=== PATIENT | female | born 1975 | race Caucasian/White ===

== ENCOUNTER 2017-04-17 13:02 | Inpatient (IN) | payer BC, OTHER ==
[~2017-04-17] VITALS: Ht 160 cm; Wt 84.9 kg
[~2017-04-17 13:02] MED LIST: ALBUAER2 INH; AMLO-110 PO; ATOR10TA82 PO; DULO60CA44 PO; FENO1TAB PO; HYDR25TA4 PO; INSDGIPEN SC; INSUINJ14 SC; LYR/50 PO; MTR800 PO; NXM/40 PO; OXYC-57 PO; PROP120C PO
[2017-04-17] MEDS ORDERED: NovoLIN-R INSULIN PER UNIT CHARGE IV STA (13:24)
[2017-04-17] MEDS ORDERED: CEFEPIME IV 2,000 MG in DEXTROSE 5% 100ML 100 ML IV STA (13:24)
[2017-04-17] MEDS ORDERED: SODIUM CHLORIDE 0.9% 1000ML 1,000 ML IV ONE ×3 (13:24→17:00)
--- NOTE | 2017-04-17 13:47 | DIAGNOSTIC IMAGING REPORT ---
CHEST ONE VIEW PORTABLE CLINICAL HISTORY: Sepsis DIZZINESS, WEAKNESS COMPARISON STUDY: 06/03/2015 FINDINGS: The cardiac and mediastinal contours are normal. There is no evidence of focal pulmonary consolidation. There is no evidence of failure. No pleural effusions are visualized.[ IMPRESSION: No active disease in the chest. Electronically signed by: Nael Walsh M.D. 04/17/2017 1:45 PM Dictated Date/Time: 04/17/2017 1:45 PM
--- NOTE | 2017-04-17 14:09 | EMERGENCY ROOM VISIT NOTE ---
History Report prepared by Landy: Gwendolyn Samuel Under the Supervision of: Dr. Lev Gan M.D. First contact with patient: 13:15 Chief Complaint: ILLNESS Stated Complaint: DIZZY,CONFUSED,WEAK,DEHYDRATED History of Present Illness The patient is a 42 year old female who presents to the Emergency Room with complaints of worsening confusion starting several days ago. The patient's mother has noticed the patient's confusion has worsened today. The patient reports she has been sitting on the couch for the past 2 days. Every time she tried to get up, she felt dizzy, nauseous, and like she might pass out. As a result, she has not taken her medications in 2 days. She denies any vomiting, abdominal pain, chest pain. She has been confused before. At that time, she was found to have C diff and ended up on life support. She had diarrhea one time today which is not abnormal for her. She had a cat scratch about 1 month ago. She has a history of staph. When she has staph, she complains of right breast pain. She has had right breast pain recently. She appears flushed to her family. She has urinated one time since last night and her family is concerned for dehydration. She denies any falls. She has a history of diabetes. She denies any history of stroke. She has had a cough and heavy breathing for the past 5 days. Source of History: patient, family Onset: several days ago Position: other (global) Quality: other (confusion) Timing: worsening Associated Symptoms: + cough, + SOB, + nausea, No chest pain, No vomiting, No abdominal pain Note: Pt reports dizziness, right breast pain. Review of Systems See HPI for pertinent positives & negatives. A total of 10 systems reviewed and were otherwise negative. Past Medical & Surgical Medical Problems: (1) Acute kidney injury (2) Clostridium difficile colitis (3) Colostomy (4) DKA (diabetic ketoacidoses) (5) Lumbar Disc Displacement (6) Pneumonia (7) Sepsis Family History Diabetes mellitus Heart disease Social History Smoking Status: Current Every Day Smoker Drug Use: none Marital Status: Housing Status: lives with family Occupation Status: employed Current/Historical Medications Scheduled Amlodipine (Norvasc), 5 MG PO QAM Atorvastatin (Lipitor), 10 MG PO DAILY Duloxetine Hcl (Cymbalta), 60 MG PO QPM Esomeprazole Magnesium (Nexium), 40 MG PO QAM Fenofibrate (Tricor), 160 MG PO DAILY Hydrochlorothiazide (Hctz), 25 MG PO DAILY Insulin Aspart (Novolog Flexpen), 20 UNITS SC TIDM Insulin Glargine (Lantus Solostar), 40 UNITS SC AMPM Lisinopril (Zestril), 20 MG PO QAM Pregabalin (Lyrica), 50 MG PO QPM Propranolol Hcl (Propranolol Hcl Er), 120 MG PO BID Topiramate (Topamax), 75 MG PO QPM Scheduled PRN Albuterol Hfa (Ventolin Hfa), 2 PUFFS INH Q4H PRN for SOB/Wheezing Allergies Coded Allergies: BEE STING (Verified Allergy, Intermediate, RED, SHORT OF BREATH, 04/17/17) Physical Exam Vital Signs Date Time Temp Pulse Resp B/P (MAP) Pulse Ox O2 Delivery O2 Flow Rate FiO2 04/17/17 15:26 100 Room Air 04/17/17 14:26 80 22 145/72 100 Room Air 04/17/17 13:41 88 22 110/77 97 Room Air 04/17/17 13:34 36.9 04/17/17 13:18 100 Room Air 04/17/17 13:17 78 04/17/17 13:07 76 16 129/85 100 Room Air Physical Exam GENERAL: Patient is in no acute distress. HEENT: No acute trauma, normocephalic atraumatic, mucous membranes markedly dry , no nasal congestion, no scleral icterus. NECK: No stridor, no adenopathy, no meningismus, trachea is midline. LUNGS: Clear to auscultation bilaterally, no wheeze, no rhonchi, breath sounds equal. HEART: Without murmurs gallops or rubs, regular rate and rhythm. ABDOMEN: Soft, nontender, bowel sounds positive, no hernias, no peritonitis. EXTREMITIES: No cyanosis or edema, full range of motion of all the joints without pain or difficulty, no signs for acute trauma. NEUROLOGIC: Mild confusion. No focal motor deficits. Awake and alert. SKIN: No rash, no jaundice, no diaphoresis. Some mottling noted over the breasts and knees. Skin is cool to touch. Medical Decision & Procedures ER Provider Diagnostic Interpretation: X-ray results as stated below per interpretation by me and the radiologist. Radiology results as stated below per my review and radiologist interpretation: CHEST ONE VIEW PORTABLE CLINICAL HISTORY: Sepsis DIZZINESS, WEAKNESS COMPARISON STUDY: 06/03/2015 FINDINGS: The cardiac and mediastinal contours are normal. There is no evidence of focal pulmonary consolidation. There is no evidence of failure. No pleural effusions are visualized.[ IMPRESSION: No active disease in the chest. Electronically signed by: Nael Walsh M.D. 04/17/2017 1:45 PM Dictated Date/Time: 04/17/2017 1:[address] HEAD WITHOUT CONTRAST (CT) CLINICAL HISTORY: CONFUSION COMPARISON STUDY: No previous studies for comparison. TECHNIQUE: Axial CT of the brain is performed from the vertex to the skull base. IV contrast was not administered for this examination. A dose lowering technique was utilized adhering to the principles of ALARA. CT DOSE: 991.68 mGycm FINDINGS: No intra or extra-axial mass lesions are visualized. There is no CT evidence of acute cortical infarction. There is no evidence of midline shift. There is no acute hemorrhage. No calvarial fractures are visualized. There is minimal disconjugate ocular gaze There is no evidence of pathologic ventricular dilatation. There is no evidence of acute sinusitis IMPRESSION: 1. Minimal disconjugate ocular gaze 2. No acute intracranial findings Electronically signed by: Nael Walsh M.D. 04/17/2017 2:21 PM Dictated Date/Time: 04/17/2017 2:20 PM Laboratory Results 04/17/17 13:50 Red Blood Count 6.34, Mean Corpuscular Volume 79.2, Mean Corpuscular Hemoglobin 26.2, Mean Corpuscular Hemoglobin Concent 33.1, Mean Platelet Volume 10.1, Neutrophils (%) (Auto) 82.1, Lymphocytes (%) (Auto) 12.3, Monocytes (%) (Auto) 4.2, Eosinophils (%) (Auto) 0.1, Basophils (%) (Auto) 0.2, Neutrophils # (Auto) 14.45, Lymphocytes # (Auto) 2.16, Monocytes # (Auto) 0.73, Eosinophils # (Auto) 0.01, Basophils # (Auto) 0.03 04/17/17 13:50 Test 04/17/17 13:40 04/17/17 13:50 04/17/17 13:52 04/17/17 14:47 Urine Color YELLOW Urine Appearance CLOUDY (CLEAR) Urine pH 5.0 (4.5-7.5) Urine Specific [place] 1.027 (1.000-1.030) Urine Protein 3+ (NEG) Urine Glucose (UA) 2+ (NEG) Urine Ketones 1+ (NEG) Urine Occult Blood 1+ (NEG) Urine Nitrite NEG (NEG) Urine Bilirubin NEG (NEG) Urine Urobilinogen NEG (NEG) Urine Leukocyte Esterase NEG (NEG) Urine WBC (Auto) 5-10 /hpf (0-5) Urine RBC (Auto) 0-4 /hpf (0-4) Urine Hyaline Casts (Auto) 5-10 /lpf (0-5) Urine Epithelial Cells (Auto) >30 /lpf (0-5) Urine Bacteria (Auto) NEG (NEG) Urine Renal Epithelial Cells 0-5 /lpf (0-5) Urine Pathogenic Casts /lpf (0) White Blood Count 17.58 K/uL (4.8-10.8) Red Blood Count 6.34 M/uL (4.2-5.4) Hemoglobin 16.6 g/dL (12.0-16.0) Hematocrit 50.2 % (37-47) Mean Corpuscular Volume 79.2 fL (80-100) Mean Corpuscular Hemoglobin 26.2 pg (25-34) Mean Corpuscular Hemoglobin Concent 33.1 g/dl (32-36) Platelet Count 564 K/uL (130-400) Mean Platelet Volume 10.1 fL (7.4-10.4) Neutrophils (%) (Auto) 82.1 % Lymphocytes (%) (Auto) 12.3 % Monocytes (%) (Auto) 4.2 % Eosinophils (%) (Auto) 0.1 % Basophils (%) (Auto) 0.2 % Neutrophils # (Auto) 14.45 K/uL (1.4-6.5) Lymphocytes # (Auto) 2.16 K/uL (1.2-3.4) Monocytes # (Auto) 0.73 K/uL (0.11-0.59) Eosinophils # (Auto) 0.01 K/uL (0-0.5) Basophils # (Auto) 0.03 K/uL (0-0.2) RDW Standard Deviation 45.7 fL (36.4-46.3) RDW Coefficient of Variation 16.1 % (11.5-14.5) Immature Granulocyte % (Auto) 1.1 % Immature Granulocyte # (Auto) 0.20 K/uL (0.00-0.02) Prothrombin Time 10.2 SECONDS (9.0-12.0) Prothromb Time International Ratio 1.0 (0.9-1.1) Activated Partial Thromboplast Time 37.4 SECONDS (21.0-31.0) Partial Thromboplastin Ratio 1.4 Anion Gap 17.0 mmol/L (3-11) Est Creatinine Clear Calc Drug Dose 37.4 ml/min Estimated GFR () 35.6 Estimated GFR (Non- 30.7 BUN/Creatinine Ratio 16.9 (10-20) Calcium Level 8.6 mg/dl (8.5-10.1) Magnesium Level 2.5 mg/dl (1.8-2.4) Total Bilirubin 0.3 mg/dl (0.2-1) Aspartate Amino Transf (AST/SGOT) 14 U/L (15-37) Alkaline Phosphatase 169 U/L (45-117) Total Creatine Kinase 67 U/L (26-192) Creatine Kinase MB 1.8 ng/ml (0.5-3.6) Creatine Kinase MB Ratio 2.7 (0-3.0) Troponin I < 0.015 ng/ml (0-0.045) Total Protein 8.7 gm/dl (6.4-8.2) Albumin 3.9 gm/dl (3.4-5.0) Globulin 4.8 gm/dl (2.5-4.0) Albumin/Globulin Ratio 0.8 (0.9-2) Beta-Hydroxybutyric Acid 18.21 mg/dL (0.2-2.81) Thyroid Stimulating Hormone (TSH) 1.140 uIu/ml (0.300-4.500) Ammonia 76.2 umol/L (11-32) Test 04/17/17 15:05 Bedside Lactic Acid Venous 0.99 mmol/L (0.90-1.70) Laboratory results reviewed by me. Medications Administered Medications (Trade) Dose Ordered Sig/Yudy Route Start Time Stop Time Status Last Admin Dose Admin Sodium Chloride 1,000 ml @ 999 mls/hr Q1H1M ONCE IV 04/17/17 13:24 04/17/17 14:24 DC 04/17/17 13:55 999 MLS/HR Insulin Human Regular (novoLIN-R U-100 PER UNIT) 10 units NOW STAT IV 04/17/17 13:24 04/17/17 13:28 DC 04/17/17 13:57 10 UNITS Cefepime HCl 2000 mg/Dextrose 112.5 ml @ 200 mls/hr ONE STAT IV 04/17/17 13:24 04/17/17 13:57 DC 04/17/17 13:56 200 MLS/HR Insulin Human Regular (NovoLIN R BOLUS FROM BAG) 3 unit NOW STAT IV 04/17/17 14:54 04/17/17 14:59 DC 04/17/17 14:54 3 UNIT Insulin Human Regular 250 units/ Sodium Chloride 252.5 ml @ 0 mls/hr Q24H IV 04/17/17 15:00 05/17/17 14:59 04/17/17 15:20 3 MLS/HR ECG Indication: altered mental status Rate (beats per minute): 81 Rhythm: sinus rhythm Findings: PVC, no acute ischemic change ED Course 1318: The patient was evaluated in room A3. A complete history and physical exam was performed. 1324: Cefepime HCl 2000 mg/Dextrose 112.5 ml @ 200 mls/hr IV, Insulin Human Regular 10 units IV, NSS 1000 ml @ 999 mls/hr IV. 1453: Upon reexamination the patient is stable. I discussed results and treatment plan with the patient and her family. They verbalize agreement and understanding. The patient will be evaluated for further management. 1454: Insulin Human Regular 3 units IV. 1458: I discussed the patient's case with Sherrell Porter PA-C [facility] hospitalist. The patient will be evaluated for further management. 1500: Insulin Human Regular 250 units/Sodium Chloride 252.5 ml @ 0 mls/hr IV. Medical Decision Differential diagnoses considered include sepsis, bacteremia, dehydration, electrolyte imbalance, DKA, UTI, LA, stroke, liver or renal failure, thyroid disorder. There is a moderate leukocytosis at 17,000, this could be consistent with the stress of her situation or infection. No concerning anemia. No hepatitis. Lactic acid level is not elevated making sepsis less likely. The patient appears to be in a euthyroid state. Renal panel testing shows evidence for acute renal failure, dehydration, acidosis and hyperglycemia. Urinalysis does not show infection. Chest x-ray does not show pneumonia or CHF. Brain CT shows no acute bleed or mass effect. Ammonia level is elevated in the 70s-this would explain her confusion. Blood cultures are pending. The patient received IV saline, IV cefepime. She received IV insulin and then was eventually placed on an insulin drip. The patient's vital signs are stable. She is in DKA, she is dehydrated with an elevated ammonia level. I believe the confusion could be from the elevation to her ammonia level coupled with the DKA. The patient will need a hospital stay. I did talk with the family and the patient. Case management has been involved. The on-call hospitalist was consulted. Medication Reconcilliation Current Medication List: was personally reviewed by me Blood Pressure Screening Patient's blood pressure: Elevated blood pressure Blood pressure disposition: Elevated BP felt to be situational Consults Time Called: [id number] Consulting Physician[facility] Returned Call: [phone] Discussed the patient's case. The patient will be evaluated for further management. Impression Primary Impression: DKA (diabetic ketoacidoses) Additional Impressions: Confusion Dehydration Hyperammonemia Critical Care I have personally spent greater than 35 minutes of critical care time in the direct management of this patient. This includes bedside care, interpretation of diagnostic studies, and testing, discussion with consultants, patient, and family members, and other required patient management activities. This 35 minutes is in excess of all separately billable procedures. Scribe Attestation The scribe's documentation has been prepared under my direction and personally reviewed by me in its entirety. I confirm that the note above accurately reflects all work, treatment, procedures, and medical decision making performed by me. Departure Information Dispostion Being Evaluated By Hospitalist Referrals Wiliam Garsia M.D. (PCP) Patient Instructions My [facility] [address] Problem Qualifiers
[2017-04-17 14:15] LABS: BASO % 0.2 %; BASO ABS # 0.03 K/uL (0-0.2); EOS % 0.1 %; EOS ABS # 0.01 K/uL (0-0.5); HEMATOCRIT 50.2 % (37-47); HEMOGLOBIN 16.6 g/dL (12.0-16.0); LYMPH % 12.3 %; LYMPH ABS # 2.16 K/uL (1.2-3.4); MEAN CELL VOLUME 79.2 fL (80-100); MEAN CORPUSCULAR HEMOGLOBIN 26.2 pg (25-34); MEAN CORPUSCULAR HGB CONC 33.1 g/dl (32-36); MEAN PLATELET VOLUME 10.1 fL (7.4-10.4); MONO % 4.2 %; MONO ABS # 0.73 K/uL (0.11-0.59); NEUT % 82.1 %; NEUT ABS # 14.45 K/uL (1.4-6.5); PLATELET COUNT 564 K/uL (130-400); RED CELL DISTRIBUTION WIDTH CV 16.1 % (11.5-14.5); RED CELL DISTRIBUTION WIDTH SD 45.7 fL (36.4-46.3); WHITE BLOOD COUNT 17.58 K/uL (4.8-10.8)
--- NOTE | 2017-04-17 14:23 | DIAGNOSTIC IMAGING REPORT ---
CT HEAD WITHOUT CONTRAST (CT) CLINICAL HISTORY: CONFUSION COMPARISON STUDY: No previous studies for comparison. TECHNIQUE: Axial CT of the brain is performed from the vertex to the skull base. IV contrast was not administered for this examination. A dose lowering technique was utilized adhering to the principles of ALARA. CT DOSE: 991.68 mGycm FINDINGS: No intra or extra-axial mass lesions are visualized. There is no CT evidence of acute cortical infarction. There is no evidence of midline shift. There is no acute hemorrhage. No calvarial fractures are visualized. There is minimal disconjugate ocular gaze There is no evidence of pathologic ventricular dilatation. There is no evidence of acute sinusitis IMPRESSION: 1. Minimal disconjugate ocular gaze 2. No acute intracranial findings Electronically signed by: Nael Walsh M.D. 04/17/2017 2:21 PM Dictated Date/Time: 04/17/2017 2:20 PM
[2017-04-17 14:35] LABS: PTT PATIENT 37.4 SECONDS (21.0-31.0)
[2017-04-17] MEDS ORDERED: NVLGI/PEN SC (14:39)
[2017-04-17] MEDS ORDERED: VNTHFA/IN INH (14:39)
[2017-04-17] MEDS ORDERED: LISI-725 PO (14:41)
[2017-04-17] MEDS ORDERED: TOPI50TA16 PO (14:41)
[2017-04-17 14:47] LABS: ALBUMIN 3.9 gm/dl (3.4-5.0); ALKALINE PHOSPHATASE 169 U/L (45-117); AST/SGOT 14 U/L (15-37); BLOOD UREA NITROGEN 33 mg/dl (7-18); CALCIUM 8.6 mg/dl (8.5-10.1); CARBON DIOXIDE 9 mmol/L (21-32); CKMB 1.8 ng/ml (0.5-3.6); CREATININE 1.94 mg/dl (0.60-1.20); GLUCOSE 465 mg/dl (70-99); POTASSIUM 4.2 mmol/L (3.5-5.1); SODIUM 122 mmol/L (136-145); TOTAL PROTEIN 8.7 gm/dl (6.4-8.2)
[2017-04-17] MEDS ORDERED: INSULIN IV INFUSION PROTOCOL STA ×2 (14:49→15:41)
[2017-04-17] MEDS ORDERED: NovoLIN R BOLUS FROM BAG IV STA (14:54)
[2017-04-17] MEDS ORDERED: GLUCOSE 40% GEL 15 GM TUBE PO PRN (15:00)
[2017-04-17] MEDS ORDERED: DKA GOAL RANGE 150-250 mg/dl 1 EA ONE ×2 (15:00→15:45)
[2017-04-17] MEDS ORDERED: DEXTROSE 50% 50 ML SYR IV PRN (15:00)
[2017-04-17] MEDS ORDERED: GLUCOSE 10 TABS/TUBE PO PRN (15:00)
[2017-04-17] MEDS ORDERED: SEVERE STRESS LEVEL ONE (15:00)
[2017-04-17] MEDS ORDERED: GLUCAGON FOR INJ 1 MG VIAL SQ PRN (15:00)
[2017-04-17] MEDS: INSULIN REGULAR 250 UNITS in SODIUM CHLORIDE 0.9% 250ML 250 ML IV SCH (15:20)
[2017-04-17 15:26] VITALS: O2SAT 100; BMI 31.9
[2017-04-17 15:41] LABS: ALT/SGPT 30 U/L (12-78)
[2017-04-17] MEDS ORDERED: MODERATE STRESS LEVEL ONE (15:45)
[2017-04-17] MEDS ORDERED: PHARMACY GLYCEMIC MGMT CONSULT PRN (15:45)
[2017-04-17] MEDS ORDERED: ONDANSETRON INJ 2 MG/ML 2 ML VIAL IV PRN (16:00)
[2017-04-17] MEDS ORDERED: ACETAMINOPHEN 325 MG TAB PO PRN (16:00)
--- NOTE | 2017-04-17 16:08 | History and Physical ---
History & Physical Date & Time of Service: Apr 17, 2017 at 16:08 Chief Complaint: Dizzy,Confused,Weak,Dehydrated Primary Care Physician: Wiliam Garsia M.D. History of Present Illness Source: patient, parent (Mom at bedside), clinic records, hospital records This is a 42yo F with DM II, HTN, HLD, anxiety, depression and history of c diff s/p colectomy who presents with dizziness and generalized weakness x 5 days. Patient states that she was in a normal state of health until 5 days ago, when she started to feel lightheaded with generalized weakness. Endorses multiple cat scratches over the past month and attributed her malaise to possible infection of her scratches. Began to feel confused over the past few days. Also endorses abdominal discomfort,nausea, feeling dehydrated and decreased urination over the past day. Patient's mom visited her today and found her to be confused, agitated, flushed and weak as compared to baseline. Brought her into ED for further evaluation. Due to patient feeling ill, she has not taken her insulin or BP meds for 2 days. Has been taking her antidepressant. Denies any fever, chills, headache, CP , SOB, vomiting episodes, diarrhea or numbness/paresthesias or swelling in extremities. States that she has felt confused similar to this in the past on a few occasions. Was admitted to [facility] in 2012 for bacteremia from C diff and required intubation. Was last admitted to [facility] in 2013 for sepsis 2/2 infected wounds and severe metabolic acidosis 2/2 DKA. Also had an OK that resolved with IVF resuscitation. Cultures grew staph aureus and coag negative staph at that time and she was treated with daptomycin. Past Medical/Surgical History Medical Problems: (1) Acute kidney injury Status: Resolved (2) Clostridium difficile colitis Status: Resolved (3) Colostomy Status: Resolved (4) DKA (diabetic ketoacidoses) Status: Resolved (5) Lumbar Disc Displacement Status: Chronic (6) Pneumonia Status: Chronic (7) Sepsis Status: Resolved Family History Diabetes mellitus Heart disease Social History Smoking Status: Current Every Day Smoker (1/2 ppd ) Drug Use: none Marital Status: Occupational Status: employed Immunizations History of Influenza Vaccine: Unknown History of Tetanus Vaccine?: Unknown History of Pneumococcal: Unknown History of Hepatitis B Vaccine: Unknown Allergies Coded Allergies: BEE STING (Verified Allergy, Intermediate, RED, SHORT OF BREATH, 04/17/17) Home Medications Scheduled Amlodipine (Norvasc), 5 MG PO QAM Atorvastatin (Lipitor), 10 MG PO DAILY Duloxetine Hcl (Cymbalta), 60 MG PO QPM Esomeprazole Magnesium (Nexium), 40 MG PO QAM Fenofibrate (Tricor), 160 MG PO DAILY Hydrochlorothiazide (Hctz), 25 MG PO DAILY Insulin Aspart (Novolog Flexpen), 20 UNITS SC TIDM Insulin Glargine (Lantus Solostar), 40 UNITS SC AMPM Lisinopril (Zestril), 20 MG PO QAM Pregabalin (Lyrica), 50 MG PO QPM Propranolol Hcl (Propranolol Hcl Er), 120 MG PO BID Topiramate (Topamax), 75 MG PO QPM Scheduled PRN Albuterol Hfa (Ventolin Hfa), 2 PUFFS INH Q4H PRN for SOB/Wheezing Review of Systems Ten systems reviewed and negative except as noted in the HPI. Physical Exam Vital Signs Date Time Temp Pulse Resp B/P (MAP) Pulse Ox O2 Delivery O2 Flow Rate FiO2 04/17/17 15:50 84 21 130/79 98 Room Air 04/17/17 15:26 100 Room Air 04/17/17 14:26 80 22 145/72 100 Room Air 04/17/17 13:41 88 22 110/77 97 Room Air 04/17/17 13:34 36.9 04/17/17 13:18 100 Room Air 04/17/17 13:17 78 04/17/17 13:07 76 16 129/85 100 Room Air General Appearance: + mild distress, + pertinent finding (Flushed, restless, tachypnic ) Head: normocephalic, atraumatic Eyes: normal inspection, PERRL, sclerae normal ENT: normal ENT inspection, hearing grossly normal, pharynx normal (dry mucous membranes ) Neck: no adenopathy, thyroid normal, trachea midline Respiratory/Chest: chest non-tender, lungs clear, normal breath sounds, no respiratory distress, no accessory muscle use Cardiovascular: regular rate, rhythm, no murmur, normal peripheral pulses Abdomen/GI: non tender, soft, no organomegaly Back: normal inspection Extremities/Musculoskelatal: normal inspection, no calf tenderness, no pedal edema Neurologic/Psych: no motor/sensory deficits, alert, oriented x 3, + pertinent finding (agitated but A&Ox3, answered all questions appropriately ) Skin: normal color, + pertinent finding (Presence of diffuse healing scratches on bilateral arms and legs. No purulent drainage.) Diagnostics Laboratory Results Results Past 24 Hours Test 04/17/17 13:40 04/17/17 13:50 04/17/17 13:52 04/17/17 14:47 Range/Units Urine Color YELLOW Urine Appearance CLOUDY CLEAR Urine pH 5.0 4.5-7.5 Urine Specific [place] 1.027 1.000-1.030 Urine Protein 3+ NEG Urine Glucose (UA) 2+ NEG Urine Ketones 1+ NEG Urine Occult Blood 1+ NEG Urine Nitrite NEG NEG Urine Bilirubin NEG NEG Urine Urobilinogen NEG NEG Urine Leukocyte Esterase NEG NEG Urine WBC (Auto) 5-10 0-5 /hpf Urine RBC (Auto) 0-4 0-4 /hpf Urine Hyaline Casts (Auto) 5-10 0-5 /lpf Urine Epithelial Cells (Auto) >30 0-5 /lpf Urine Bacteria (Auto) NEG NEG Urine Renal Epithelial Cells 0-5 0-5 /lpf Urine Pathogenic Casts 0 /lpf White Blood Count 17.58 4.8-10.8 K/uL Red Blood Count 6.34 4.2-5.4 M/uL Hemoglobin 16.6 12.0-16.0 g/dL Hematocrit 50.2 37-47 % Mean Corpuscular Volume 79.2 80-100 fL Mean Corpuscular Hemoglobin 26.2 25-34 pg Mean Corpuscular Hemoglobin Concent 33.1 32-36 g/dl Platelet Count 564 130-400 K/uL Mean Platelet Volume 10.1 7.4-10.4 fL Neutrophils (%) (Auto) 82.1 % Lymphocytes (%) (Auto) 12.3 % Monocytes (%) (Auto) 4.2 % Eosinophils (%) (Auto) 0.1 % Basophils (%) (Auto) 0.2 % Neutrophils # (Auto) 14.45 1.4-6.5 K/uL Lymphocytes # (Auto) 2.16 1.2-3.4 K/uL Monocytes # (Auto) 0.73 0.11-0.59 K/uL Eosinophils # (Auto) 0.01 0-0.5 K/uL Basophils # (Auto) 0.03 0-0.2 K/uL RDW Standard Deviation 45.7 36.4-46.3 fL RDW Coefficient of Variation 16.1 11.5-14.5 % Immature Granulocyte % (Auto) 1.1 % Immature Granulocyte # (Auto) 0.20 0.00-0.02 K/uL Prothrombin Time 10.2 9.0-12.0 SECONDS Prothromb Time International Ratio 1.0 0.9-1.1 Activated Partial Thromboplast Time 37.4 21.0-31.0 SECONDS Partial Thromboplastin Ratio 1.4 Sodium Level 122 136-145 mmol/L Potassium Level 4.2 3.5-5.1 mmol/L Chloride Level 96 98-107 mmol/L Carbon Dioxide Level 9 21-32 mmol/L Anion Gap 17.0 3-11 mmol/L Blood Urea Nitrogen 33 7-18 mg/dl Creatinine 1.94 0.60-1.20 mg/dl Est Creatinine Clear Calc Drug Dose 37.4 ml/min Estimated GFR () 35.6 Estimated GFR (Non- 30.7 BUN/Creatinine Ratio 16.9 10-20 Random Glucose 465 70-99 mg/dl Calcium Level 8.6 8.5-10.1 mg/dl Magnesium Level 2.5 1.8-2.4 mg/dl Total Bilirubin 0.3 0.2-1 mg/dl Aspartate Amino Transf (AST/SGOT) 14 15-37 U/L Alanine Aminotransferase (ALT/SGPT) 30 12-78 U/L Alkaline Phosphatase 169 45-117 U/L Total Creatine Kinase 67 26-192 U/L Creatine Kinase MB 1.8 0.5-3.6 ng/ml Creatine Kinase MB Ratio 2.7 0-3.0 Troponin I < 0.015 0-0.045 ng/ml Total Protein 8.7 6.4-8.2 gm/dl Albumin 3.9 3.4-5.0 gm/dl Globulin 4.8 2.5-4.0 gm/dl Albumin/Globulin Ratio 0.8 0.9-2 Beta-Hydroxybutyric Acid 18.21 0.2-2.81 mg/dL Thyroid Stimulating Hormone (TSH) 1.140 0.300-4.500 uIu/ml Ammonia 76.2 11-32 umol/L Test 04/17/17 15:05 04/17/17 16:00 Range/Units Bedside Lactic Acid Venous 0.99 0.90-1.70 mmol/L Microbiology Results 04/17/17 Blood Culture, Received Pending 04/17/17 Blood Culture, Received Pending Diagnostic Radiology CT head: IMPRESSION: 1. Minimal disconjugate ocular gaze 2. No acute intracranial findings CXR normal EKG Sinus rhythm with Premature ventricular complexes Poor R wave progression, consider anterior PR vs. lead placement vs. LVH Impression Assessment and Plan This is a 42yo F with DM II, HTN, HLD, anxiety, depression and history of c diff s/p colectomy who presents with dizziness and generalized weakness x 5 days. Metabolic acidosis 2/2 DKA: -Uncontrolled diabetic, non-compliant with insulin over past few days -BG of 470 --> downtrending -Hgb a1c of 13.8 -Initial bicarb of 9, anion gap of 17, ABG pending -Glycemic control consulted; insulin drip initiated -IVF resuscitation, recheck BG and electrolytes Q4 -NPO except meds -Monitor on tele -Nephro consulted Leukocytosis: -Wbc count of 17.58 -Likely 2/2 DKA, also possible infection 2/2 scratches -Clinically unimpressive but h/o staph infection due to wounds -Empirically treated with vanc and cefepime -Blood and wound cultures pending -Monitor CBC OK: -Cr of 1.94 -Baseline ~1 -Pre-renal 2/2 dehydration, also potential renal cause with lisinopril, ibuprofen use -IVF resuscitation -Hold nephrotoxic agents when able HTN: -Cont amlodipine tomorrow -Held HCTZ and lisinopril in setting of OK -Add additional antihypertensives if needed HLD: -Cont statin tomorrow Anxiety/depression: -Cont cymbalta History of migraines: -Cont topamax and propranolol ppx H/o c diff: -No complaints of diarrhea now -Plan to check c diff toxin if patient has loose stool DVT Ppx: Heparin SQ Code status: FULL PCP: Ady Dispo: Admitted to telemetry. Plan to return home once medically stable. Patient seen in collaboration with Prem. Please see addendum. Attending Note: Patient is a 42 yr female with multiple comorbidities presents with history of confusion, generalized weakness, nausea, poor appetite and has not been taking her Insulin for the past 2-3 days. Patient was found to be in DKA with possible Sepsis and clinically dehydrated. Also labs consistent with severe metabolic acidosis, elevated ammonia levels. Physical Exam: Vitals signs as noted above General Appearance:Moderately built and nourished, no apparent distress Head: normocephalic, Atraumatic Eyes: normal inspection, EOMI, PERRL Neck: supple, Trachea midline Respiratory/Chest: Normal breath sounds, CTA, No accessory muscle use Cardiovascular: S1, S2, No murmur Abdomen/GI:Soft, Non tender, Bowel sounds present Extremities/Musculoskelatal:normal inspection, no edema Neurologic/Psych:AAOX3, grossly no focal neurological deficits Skin:normal color,warm. Multiple scratch quintana noted on B/L UE Assessment and Plan: DKA: Secondary to non compliance/Infection Severe Metabolic Acidosis OK Possible Sepsis Pseudohyponatremia Hyperammonemia Metabolic Encephalopathy Plan: DKA protocol Empiric IV Abx Will get ABG Agree with above management I personally reviewed the record. Patient is interviewed and examined at bedside. Patient's care is coordinated with Sherrell Porter PA-C. Please refer to the documentation above for details of patient's presentation and for discussion of other issues. Level of Care Telemetry Advanced Directives Existing Living Will: No Existing Power of Site Specialist: No Resuscitation Status FULL RESUSCITATION VTE Prophylaxis VTE Risk Assessment Done? Y/N: Yes Risk Level: Low Given or contraindicated: Unfractionated heparin SQ
[2017-04-17 16:13] LABS: HEMOGLOBIN A1C 13.8 % (4.5-5.6)
[2017-04-17] MEDS ORDERED: ALBUTEROL HFA 8 GM INHALER INH PRN (16:15)
[2017-04-17] MEDS ORDERED: VANCOMYCIN CONSULT ACTIVE PRN (16:27)
[2017-04-17 17:00] VITALS: BP 109/61; PULSE 71; TEMP 36.4; O2SAT 95
[2017-04-17] MEDS ORDERED: SODIUM CHLORIDE 0.9% 1000ML 1,000 ML IV SCH ×2 (17:00→23:30)
[2017-04-17] MEDS ORDERED: PENDING NSS+20mEq KCL IVF SCH (17:00)
[2017-04-17] MEDS ORDERED: PENDING D5 1/2NS+20mEq KCL IVF SCH (17:00)
[2017-04-17] MEDS ORDERED: PENDING 1/2NSS+20mEq KCL IVF SCH (17:00)
[2017-04-17 17:19] LABS: CALCIUM 8.5 mg/dl (8.5-10.1); CREATININE 1.77 mg/dl (0.60-1.20); PHOSPHORUS 3.8 mg/dl (2.5-4.9); POTASSIUM 3.9 mmol/L (3.5-5.1)
[2017-04-17] MEDS: INSULIN ASPART 100 UNITS/ML 3 ML PEN SC SCH ×2 (17:30→20:36)
[2017-04-17] MEDS ORDERED: FAMOTIDINE IV INJ 20 MG in DEXTROSE 5% 100ML 100 ML IV SCH (18:00)
[2017-04-17] MEDS ORDERED: VANCOMYCIN INJ 2,000 MG in SODIUM CHLORIDE 0.9% 500ML 500 ML IV ONE (18:00)
[2017-04-17] MEDS ORDERED: SODIUM CHLOR 0.45% + 20MEQ KCL 1,000 ML IV SCH ×2 (18:30→20:30)
[2017-04-17] MEDS: FAMOTIDINE IV INJ 20 MG in SYRINGE 3 ML IV SCH (18:52)
--- NOTE | 2017-04-17 19:27 | Pharmacy Progress Note ---
Glycemic Control Intl Consult Date of Service Apr 17, 2017. Scope Glycemic Pharmacist consulted by Sherrell Porter PA-C on 04/17/2017 for glycemic control and to write orders per [facility] inpatient glycemic control protocol Objective Weight (Kilograms): 81.600 Accuchecks BSG (last 24hrs): Test 04/17/17 13:24 04/17/17 13:50 04/17/17 14:39 04/17/17 16:26 Bedside Glucose 470 mg/dl (70-90) 423 mg/dl (70-90) Random Glucose 465 mg/dl (70-99) 394 mg/dl (70-99) Test 04/17/17 16:29 04/17/17 17:42 04/17/17 18:44 Bedside Glucose 381 mg/dl (70-90) 365 mg/dl (70-90) 337 mg/dl (70-90) Laboratory Data (last 24hrs) Test 04/17/17 13:50 04/17/17 16:26 Anion Gap 17.0 mmol/L 17.0 mmol/L BUN/Creatinine Ratio 16.9 20.4 Blood Urea Nitrogen 33 mg/dl 36 mg/dl Creatinine 1.94 mg/dl 1.77 mg/dl Hemoglobin A1c 13.8 % Potassium Level 4.2 mmol/L 3.9 mmol/L Sodium Level 122 mmol/L 127 mmol/L White Blood Count 17.58 K/uL Red Blood Count 6.34 M/uL Hemoglobin 16.6 g/dL Hematocrit 50.2 % Mean Corpuscular Volume 79.2 fL Mean Corpuscular Hemoglobin 26.2 pg Mean Corpuscular Hemoglobin Concent 33.1 g/dl Platelet Count 564 K/uL Mean Platelet Volume 10.1 fL Neutrophils (%) (Auto) 82.1 % Lymphocytes (%) (Auto) 12.3 % Monocytes (%) (Auto) 4.2 % Eosinophils (%) (Auto) 0.1 % Basophils (%) (Auto) 0.2 % Neutrophils # (Auto) 14.45 K/uL Lymphocytes # (Auto) 2.16 K/uL Monocytes # (Auto) 0.73 K/uL Eosinophils # (Auto) 0.01 K/uL Basophils # (Auto) 0.03 K/uL HbA1c Test 04/17/17 13:50 Hemoglobin A1c 13.8 % (4.5-5.6) H Recent Pertinent Medications Outpatient Anti-diabetic Regimen: * Lantus 40 units SQ BID + Novolog 20 units with meals (total of 140 units/day) --> please note has not taken x 2 days * A1c = 13.8 % 04/17/17 Risk Factors for Insulin Resistance: * IVF: 1/2NS + 20 KCL @ 250 Mls/hr then 150 mLs/hr * Diet: NPO Assessment & Plan ASSESSMENT: * Ms Hernandez is a 42 y/o F with a PMH of Cdiff s/p colostomy, HTN, and depression who presents in DKA (BHA = 18.21, anion gap of 17 with bicarbonate 9 ) after having not taken insulin x 2 days. Patient initially started on insulin infusion which will be continued until labs normalize and patient demonstrates improvement. PLAN FOR INPATIENT GLYCEMIC CONTROL: * Starting IV insulin infusion per moderate (moderate/severe) stress protocol * Goal Range 150 - 250 mg/dl * In the critical care setting, continuous IV insulin infusion has been shown to be the best method for achieving glycemic targets. * Please note that the plan above was derived based on current level of insulin resistance and hospital stress. These recommendations are appropriate for inpatient admission only. Plan of care upon discharge will need to be reassessed to avoid potential outpatient hypo/hyperglycemia. Thank you.
[2017-04-17 19:32] VITALS: BP 122/79; PULSE 78; TEMP 36.5; O2SAT 99
[2017-04-17] MEDS: DULOXETINE HCL 60 MG CAP PO SCH (20:52)
[2017-04-17] MEDS: PROPRANOLOL HCL 60 MG LA CAP PO SCH (20:52)
[2017-04-17] MEDS: HEPARIN SOD 5000 UNIT/0.5 ML CARP SQ SCH (20:54)
[2017-04-17] MEDS: PREGABALIN 50 MG CAP PO SCH (20:55)
[2017-04-17 21:02] LABS: CALCIUM 7.8 mg/dl (8.5-10.1); CREATININE 1.75 mg/dl (0.60-1.20); PHOSPHORUS 2.9 mg/dl (2.5-4.9)
--- NOTE | 2017-04-17 21:16 | Pharmacy Progress Note ---
Pharmacy Abx Initial Consult Date of Service Apr 17, 2017. Pharmacy Dosing Scope Date of Consult: 04/17/2017 Consultation requested by: Sherrell Porter PA-C Pharmacy is consulted to initiate vancomycin and cefepime IV dosing therapy, order appropriate labs and adjust drug dose/frequency. Subjective The patient is a 42 year old female admitted on Apr 17, 2017 at 16:00. Objective Height (Feet): 5 Height (Inches): 3.00 Weight (Kilograms): 81.600 Vital Signs (Past 12Hrs) Vital Signs Past 12 Hours Date Time Temp Pulse Resp B/P (MAP) Pulse Ox O2 Delivery O2 Flow Rate FiO2 04/17/17 19:32 36.5 78 22 122/79 (93) 99 Room Air 04/17/17 17:00 36.4 71 20 109/61 (77) 95 Room Air 04/17/17 15:50 84 21 130/79 98 Room Air 04/17/17 15:26 100 Room Air 04/17/17 14:26 80 22 145/72 100 Room Air 04/17/17 13:41 88 22 110/77 97 Room Air 04/17/17 13:34 36.9 04/17/17 13:18 100 Room Air 04/17/17 13:17 78 04/17/17 13:07 76 16 129/85 100 Room Air Lab Results (24Hrs) Laboratory Tests (24 Hours) Test 04/17/17 13:50 White Blood Count 17.58 K/uL (4.8-10.8) H Red Blood Count 6.34 M/uL (4.2-5.4) H Hemoglobin 16.6 g/dL (12.0-16.0) H Hematocrit 50.2 % (37-47) H Mean Corpuscular Volume 79.2 fL (80-100) L Mean Corpuscular Hemoglobin 26.2 pg (25-34) Mean Corpuscular Hemoglobin Concent 33.1 g/dl (32-36) Platelet Count 564 K/uL (130-400) H Mean Platelet Volume 10.1 fL (7.4-10.4) Neutrophils (%) (Auto) 82.1 % Lymphocytes (%) (Auto) 12.3 % Monocytes (%) (Auto) 4.2 % Eosinophils (%) (Auto) 0.1 % Basophils (%) (Auto) 0.2 % Neutrophils # (Auto) 14.45 K/uL (1.4-6.5) H Lymphocytes # (Auto) 2.16 K/uL (1.2-3.4) Monocytes # (Auto) 0.73 K/uL (0.11-0.59) H Eosinophils # (Auto) 0.01 K/uL (0-0.5) Basophils # (Auto) 0.03 K/uL (0-0.2) Total Creatine Kinase 67 U/L (26-192) Micro Results Date/Time Source Procedure Growth Status 04/17/17 13:52 Blood Blood Culture Pending Received 04/17/17 13:50 Blood Blood Culture Pending Received Risk Factors for Resistance * no known resistance factors Assessment & Plan Assessment 42 year old female with a PMH of C difficle, HTN, DM, and depression who presents with a 2 day history of worsening confusion. She has not taken any of her medications except those for depression. She has multiple cat scratches on her. She has a PMH of MSSA on her skin. Plan vancomycin/cefepime for treatment of cellulitis, potentially for cat scratches Vancomycin IV * Loading dose: 2000 mg (25 mg/kg) * Maintenance dose: 1250 mg IV (15 mg/kg) every 18 hours * Goal trough level for cellulitis with no known history of MRSA : 10 to 15 mcg/ mL * Trough ordered for 04/19/17 Pharmacy will continue to follow and will adjust dose/frequency as necessary. Thank you.
[2017-04-17] MEDS ORDERED: NSS + 20MEQ KCL 1000ML 1,000 ML IV ONE (21:30)
[2017-04-17] MEDS ORDERED: D5W AND NSS 1,000 ML IV PRN (22:45)
--- NOTE | 2017-04-17 23:30 | Progress Note ---
Internal Med Progress Note Date of Service: Apr 17, 2017. Provider Documentation: Made aware by RN of patient disorientation. Ammonia noted to be 76 on admission. AP ? Hepatic encephalopathy ? Possible cirrhosis secondary to NAFLD Fatty liver noted on 08/2015 CT abdomen Lactulose hourly until we DM GI consult in the morning RE possible hepatic encephalopathy, possible cirrhosis workup Vital Signs: Date Time Temp Pulse Resp B/P (MAP) Pulse Ox O2 Delivery O2 Flow Rate FiO2 04/18/17 08:00 Room Air 04/18/17 08:00 Nasal Cannula 04/18/17 07:30 36.8 87 21 147/76 (99) 99 Room Air 04/18/17 04:00 Room Air 04/18/17 03:29 36.6 93 24 132/79 (96) 99 Room Air 04/18/17 00:00 Room Air 04/17/17 23:57 36.7 88 23 171/83 (112) 98 Room Air 04/17/17 20:00 Room Air 04/17/17 19:32 36.5 78 22 122/79 (93) 99 Room Air 04/17/17 17:00 36.4 71 20 109/61 (77) 95 Room Air 04/17/17 15:50 84 21 130/79 98 Room Air 04/17/17 15:26 100 Room Air 04/17/17 14:26 80 22 145/72 100 Room Air 04/17/17 13:41 88 22 110/77 97 Room Air 04/17/17 13:34 36.9 04/17/17 13:18 100 Room Air 04/17/17 13:17 78 04/17/17 13:07 76 16 129/85 100 Room Air Lab Results: Results Past 24 Hours Test 04/17/17 13:24 04/17/17 13:40 04/17/17 13:50 04/17/17 13:52 Range/Units Bedside Glucose 470 70-90 mg/dl Urine Color YELLOW Urine Appearance CLOUDY CLEAR Urine pH 5.0 4.5-7.5 Urine Specific [place] 1.027 1.000-1.030 Urine Protein 3+ NEG Urine Glucose (UA) 2+ NEG Urine Ketones 1+ NEG Urine Occult Blood 1+ NEG Urine Nitrite NEG NEG Urine Bilirubin NEG NEG Urine Urobilinogen NEG NEG Urine Leukocyte Esterase NEG NEG Urine WBC (Auto) 5-10 0-5 /hpf Urine RBC (Auto) 0-4 0-4 /hpf Urine Hyaline Casts (Auto) 5-10 0-5 /lpf Urine Epithelial Cells (Auto) >30 0-5 /lpf Urine Bacteria (Auto) NEG NEG Urine Renal Epithelial Cells 0-5 0-5 /lpf Urine Pathogenic Casts 0 /lpf Urine Osmolality 428 500-800 mOms/kg Urine Random Sodium 48 mEq/L Urine Opiates Screen NEG NEG Urine Methadone, Qualitative NEG NEG Urine Barbiturates NEG NEG Urine Phencyclidine (PCP) Level NEG NEG Ur Amphetamine/Methamphetamine NEG NEG MDMA (Ecstasy) Screen NEG NEG Urine Benzodiazepines Screen NEG NEG Urine Cocaine Metabolite NEG NEG Urine Marijuana (THC) NEG NEG White Blood Count 17.58 4.8-10.8 K/uL Red Blood Count 6.34 4.2-5.4 M/uL Hemoglobin 16.6 12.0-16.0 g/dL Hematocrit 50.2 37-47 % Mean Corpuscular Volume 79.2 80-100 fL Mean Corpuscular Hemoglobin 26.2 25-34 pg Mean Corpuscular Hemoglobin Concent 33.1 32-36 g/dl Platelet Count 564 130-400 K/uL Mean Platelet Volume 10.1 7.4-10.4 fL Neutrophils (%) (Auto) 82.1 % Lymphocytes (%) (Auto) 12.3 % Monocytes (%) (Auto) 4.2 % Eosinophils (%) (Auto) 0.1 % Basophils (%) (Auto) 0.2 % Neutrophils # (Auto) 14.45 1.4-6.5 K/uL Lymphocytes # (Auto) 2.16 1.2-3.4 K/uL Monocytes # (Auto) 0.73 0.11-0.59 K/uL Eosinophils # (Auto) 0.01 0-0.5 K/uL Basophils # (Auto) 0.03 0-0.2 K/uL RDW Standard Deviation 45.7 36.4-46.3 fL RDW Coefficient of Variation 16.1 11.5-14.5 % Immature Granulocyte % (Auto) 1.1 % Immature Granulocyte # (Auto) 0.20 0.00-0.02 K/uL Prothrombin Time 10.2 9.0-12.0 SECONDS Prothromb Time International Ratio 1.0 0.9-1.1 Activated Partial Thromboplast Time 37.4 21.0-31.0 SECONDS Partial Thromboplastin Ratio 1.4 Sodium Level 122 136-145 mmol/L Potassium Level 4.2 3.5-5.1 mmol/L Chloride Level 96 98-107 mmol/L Carbon Dioxide Level 9 21-32 mmol/L Anion Gap 17.0 3-11 mmol/L Blood Urea Nitrogen 33 7-18 mg/dl Creatinine 1.94 0.60-1.20 mg/dl Est Creatinine Clear Calc Drug Dose 37.4 ml/min Estimated GFR () 35.6 Estimated GFR (Non- 30.7 BUN/Creatinine Ratio 16.9 10-20 Random Glucose 465 70-99 mg/dl Estimated Average Glucose 349 mg/dl Hemoglobin A1c 13.8 4.5-5.6 % Calcium Level 8.6 8.5-10.1 mg/dl Magnesium Level 2.5 1.8-2.4 mg/dl Total Bilirubin 0.3 0.2-1 mg/dl Aspartate Amino Transf (AST/SGOT) 14 15-37 U/L Alanine Aminotransferase (ALT/SGPT) 30 12-78 U/L Alkaline Phosphatase 169 45-117 U/L Total Creatine Kinase 67 26-192 U/L Creatine Kinase MB 1.8 0.5-3.6 ng/ml Creatine Kinase MB Ratio 2.7 0-3.0 Troponin I < 0.015 0-0.045 ng/ml Total Protein 8.7 6.4-8.2 gm/dl Albumin 3.9 3.4-5.0 gm/dl Globulin 4.8 2.5-4.0 gm/dl Albumin/Globulin Ratio 0.8 0.9-2 Beta-Hydroxybutyric Acid 18.21 0.2-2.81 mg/dL Thyroid Stimulating Hormone (TSH) 1.140 0.300-4.500 uIu/ml Ammonia 76.2 11-32 umol/L Test 04/17/17 14:39 04/17/17 15:05 04/17/17 16:26 04/17/17 16:29 Range/Units Bedside Glucose 423 381 70-90 mg/dl Bedside Lactic Acid Venous 0.99 0.90-1.70 mmol/L Sodium Level 127 136-145 mmol/L Potassium Level 3.9 3.5-5.1 mmol/L Chloride Level 102 98-107 mmol/L Carbon Dioxide Level 8 21-32 mmol/L Anion Gap 17.0 3-11 mmol/L Blood Urea Nitrogen 36 7-18 mg/dl Creatinine 1.77 0.60-1.20 mg/dl Est Creatinine Clear Calc Drug Dose 41.0 ml/min Estimated GFR () 39.8 Estimated GFR (Non- 34.3 BUN/Creatinine Ratio 20.4 10-20 Random Glucose 394 70-99 mg/dl Calcium Level 8.5 8.5-10.1 mg/dl Phosphorus Level 3.8 2.5-4.9 mg/dl Magnesium Level 2.5 1.8-2.4 mg/dl Beta-Hydroxybutyric Acid 16.04 0.2-2.81 mg/dL Test 04/17/17 17:42 04/17/17 18:44 04/17/17 19:43 04/17/17 20:11 Range/Units Bedside Glucose 365 337 294 70-90 mg/dl Arterial Blood pH 7.06 7.35-7.45 Arterial Blood Partial Pressure CO2 22 35-46 mmHg Arterial Blood Partial Pressure O2 120 80-95 mm/Hg Arterial Blood HCO3 6 19-24 mmol/L Arterial Blood Oxygen Saturation 97.5 90-95 % Arterial Blood Base Excess -22.7 -9-1.8 mEq/L Arterial Blood Gas Delivery ROOM AIR Mickey Test POS POS Sodium Level 128 136-145 mmol/L Potassium Level 4.0 3.5-5.1 mmol/L Chloride Level 107 98-107 mmol/L Carbon Dioxide Level 7 21-32 mmol/L Anion Gap 14.0 3-11 mmol/L Blood Urea Nitrogen 40 7-18 mg/dl Creatinine 1.75 0.60-1.20 mg/dl Est Creatinine Clear Calc Drug Dose 41.5 ml/min Estimated GFR () 40.3 Estimated GFR (Non- 34.8 BUN/Creatinine Ratio 22.7 10-20 Random Glucose 287 70-99 mg/dl Calcium Level 7.8 8.5-10.1 mg/dl Phosphorus Level 2.9 2.5-4.9 mg/dl Magnesium Level 2.2 1.8-2.4 mg/dl Test 04/17/17 20:48 04/17/17 21:35 04/17/17 22:36 04/17/17 23:36 Range/Units Bedside Glucose 254 290 259 215 70-90 mg/dl Test 04/18/17 00:05 04/18/17 00:31 04/18/17 01:35 04/18/17 02:09 Range/Units Arterial Blood pH 7.01 7.06 7.35-7.45 Arterial Blood Partial Pressure CO2 22 22 35-46 mmHg Arterial Blood Partial Pressure O2 110 116 80-95 mm/Hg Arterial Blood HCO3 5 6 19-24 mmol/L Arterial Blood Oxygen Saturation 96.7 97.4 90-95 % Arterial Blood Base Excess -24.4 -22.5 -9-1.8 mEq/L Arterial Blood Gas Delivery ROOM AIR ROOM AIR Mickey Test POS POS POS Sodium Level 132 136-145 mmol/L Potassium Level 4.5 3.5-5.1 mmol/L Chloride Level 111 98-107 mmol/L Carbon Dioxide Level 5 21-32 mmol/L Anion Gap 16.0 3-11 mmol/L Blood Urea Nitrogen 42 7-18 mg/dl Creatinine 1.84 0.60-1.20 mg/dl Est Creatinine Clear Calc Drug Dose 39.5 ml/min Estimated GFR () 38.0 Estimated GFR (Non- 32.8 BUN/Creatinine Ratio 22.7 10-20 Random Glucose 234 70-99 mg/dl Osmolality 300 280-300 mOsm/kg Calcium Level 7.3 8.5-10.1 mg/dl Magnesium Level 2.3 1.8-2.4 mg/dl Ethyl Alcohol mg/dL < 3.0 0-3 mg/dl Bedside Glucose 234 195 70-90 mg/dl Test 04/18/17 02:23 04/18/17 02:30 04/18/17 03:33 04/18/17 03:58 Range/Units Salicylates Level 2.1 2.8-20 mg/dl Acetaminophen Level < 2 10-30 ug/ml Bedside Glucose 223 224 70-90 mg/dl White Blood Count 13.46 4.8-10.8 K/uL Red Blood Count 4.90 4.2-5.4 M/uL Hemoglobin 12.9 12.0-16.0 g/dL Hematocrit 38.4 37-47 % Mean Corpuscular Volume 78.4 80-100 fL Mean Corpuscular Hemoglobin 26.3 25-34 pg Mean Corpuscular Hemoglobin Concent 33.6 32-36 g/dl RDW Standard Deviation 45.7 36.4-46.3 fL RDW Coefficient of Variation 16.0 11.5-14.5 % Platelet Count 288 130-400 K/uL Mean Platelet Volume 9.4 7.4-10.4 fL Nucleated RBC Absolute Count (auto) 0.02 0-0 K/uL Nucleated Red Blood Cells % 0.2 % Arterial Blood pH 7.08 7.35-7.45 Arterial Blood Partial Pressure CO2 22 35-46 mmHg Arterial Blood Partial Pressure O2 118 80-95 mm/Hg Arterial Blood HCO3 7 19-24 mmol/L Arterial Blood Oxygen Saturation 97.6 90-95 % Arterial Blood Base Excess -21.8 -9-1.8 mEq/L Arterial Blood Gas Delivery ROOM AIR Mickey Test POS POS Sodium Level 135 136-145 mmol/L Potassium Level 3.6 3.5-5.1 mmol/L Chloride Level 114 98-107 mmol/L Carbon Dioxide Level 7 21-32 mmol/L Anion Gap 15.0 3-11 mmol/L Blood Urea Nitrogen 42 7-18 mg/dl Creatinine 1.92 0.60-1.20 mg/dl Est Creatinine Clear Calc Drug Dose 37.8 ml/min Estimated GFR () 36.1 Estimated GFR (Non- 31.1 BUN/Creatinine Ratio 21.7 10-20 Random Glucose 241 70-99 mg/dl Calcium Level 6.9 8.5-10.1 mg/dl Phosphorus Level 2.3 2.5-4.9 mg/dl Magnesium Level 1.9 1.8-2.4 mg/dl Ammonia 130.0 11-32 umol/L Test 04/18/17 04:46 04/18/17 05:38 04/18/17 06:36 04/18/17 07:46 Range/Units Bedside Glucose 284 255 272 278 70-90 mg/dl Test 04/18/17 08:01 04/18/17 08:33 04/18/17 09:47 04/18/17 10:38 Range/Units Sodium Level 136 136-145 mmol/L Potassium Level 3.6 3.5-5.1 mmol/L Chloride Level 114 98-107 mmol/L Carbon Dioxide Level 6 21-32 mmol/L Anion Gap 16.0 3-11 mmol/L Blood Urea Nitrogen 44 7-18 mg/dl Creatinine 2.09 0.60-1.20 mg/dl Est Creatinine Clear Calc Drug Dose 34.7 ml/min Estimated GFR () 32.5 Estimated GFR (Non- 28.1 BUN/Creatinine Ratio 21.2 10-20 Random Glucose 306 70-99 mg/dl Calcium Level 7.1 8.5-10.1 mg/dl Beta-Hydroxybutyric Acid 1.87 0.2-2.81 mg/dL Bedside Glucose 274 274 245 70-90 mg/dl Test 04/18/17 11:29 04/18/17 12:03 Range/Units Bedside Glucose 288 70-90 mg/dl Microbiology Results 04/17/17 Blood Culture, Received Pending 04/17/17 Blood Culture, Received Pending
[2017-04-17 23:57] VITALS: BP 171/83; PULSE 88; TEMP 36.7; O2SAT 98
[2017-04-18] VITALS (23 sets, daily range): BP systolic 132–203; BP diastolic 54–119; PULSE 85–99; TEMP 36.6–37; O2SAT 94–100; BMI 31.9
[2017-04-18] MEDS: LACTULOSE SYRUP 30 GM/45 ML UDP PO SCH ×10 (00:05→08:30)
[2017-04-18 00:34] LABS: SODIUM RANDOM URINE 48 mEq/L
[2017-04-18 00:41] LABS: CALCIUM 7.3 mg/dl (8.5-10.1); CREATININE 1.84 mg/dl (0.60-1.20); POTASSIUM 4.5 mmol/L (3.5-5.1)
[2017-04-18] MEDS ORDERED: SODIUM CHLORIDE 0.9% 1000ML 1,000 ML IV STA ×2 (00:48→02:38)
[2017-04-18] MEDS ORDERED: SODIUM BICARB 8.4% INJ 50 MEQ/50 ML SYR IV STA ×2 (00:52→02:38)
[2017-04-18 01:03] LABS: OSMOLALITY,URINE 428 mOms/kg (500-800)
[2017-04-18] MEDS ORDERED: D5W AND NSS 1,000 ML IV PRN (01:30)
[2017-04-18] MEDS ORDERED: THIAMINE HCL 100 MG/ML 2 ML VIAL IV STA (02:22)
[2017-04-18] MEDS ORDERED: THIAMINE HCL INJ 100 MG in SYRINGE 9 ML IV SCH (02:30)
[2017-04-18] MEDS ORDERED: SODIUM CHLORIDE 0.45% 1000ML 1,000 ML IV STA ×2 (02:52→04:32)
[2017-04-18] MEDS ORDERED: D5W AND 1/2NSS 1,000 ML IV PRN (03:00)
[2017-04-18 04:10] LABS: HEMATOCRIT 38.4 % (37-47); HEMOGLOBIN 12.9 g/dL (12.0-16.0); MEAN CELL VOLUME 78.4 fL (80-100); MEAN CORPUSCULAR HEMOGLOBIN 26.3 pg (25-34); MEAN CORPUSCULAR HGB CONC 33.6 g/dl (32-36); MEAN PLATELET VOLUME 9.4 fL (7.4-10.4); NUCLEATED RED BLOOD CELL ABS 0.02 K/uL (0-0); PLATELET COUNT 288 K/uL (130-400); RED CELL DISTRIBUTION WIDTH SD 45.7 fL (36.4-46.3); WHITE BLOOD COUNT 13.46 K/uL (4.8-10.8)
[2017-04-18 04:30] LABS: CALCIUM 6.9 mg/dl (8.5-10.1); CREATININE 1.92 mg/dl (0.60-1.20); PHOSPHORUS 2.3 mg/dl (2.5-4.9)
[2017-04-18] MEDS ORDERED: D5W AND 1/2NSS 1,000 ML IV SCH (04:30)
[2017-04-18 04:48] LABS: POTASSIUM 3.6 mmol/L (3.5-5.1)
[2017-04-18] MEDS: FAMOTIDINE IV INJ 20 MG in SYRINGE 3 ML IV SCH ×2 (05:33→17:44)
[2017-04-18] MEDS: HEPARIN SOD 5000 UNIT/0.5 ML CARP SQ SCH ×3 (05:36→22:18)
[2017-04-18] MEDS ORDERED: D5W AND 1/2NSS + 20MEQ KCL 1,000 ML IV SCH (06:30)
[2017-04-18] MEDS: INSULIN ASPART 100 UNITS/ML 3 ML PEN SC SCH ×4 (08:00→21:00)
[2017-04-18] MEDS: AMLODIPINE BESYLATE 5 MG TAB PO SCH (08:35)
[2017-04-18] MEDS: PROPRANOLOL HCL 60 MG LA CAP PO SCH ×2 (08:35→21:00)
[2017-04-18] MEDS ORDERED: ATORVASTATIN 10 MG TAB PO SCH (09:00)
[2017-04-18 09:33] LABS: CALCIUM 7.1 mg/dl (8.5-10.1); CREATININE 2.09 mg/dl (0.60-1.20); POTASSIUM 3.6 mmol/L (3.5-5.1)
[2017-04-18] MEDS ORDERED: INSULIN PROTOCOL GOAL RANGE ONE (09:45)
--- NOTE | 2017-04-18 10:14 | Gastrointestinal Consultation ---
Gastrointestinal Consultation Date of Consultation: Apr 18, 2017 Attending Physician: Dr. Riley Consulting Physician: Dr. Hassan Reason for Consultation: "hepatic encephalopathy" History of Present Illness Patient is a 42 year old female patient of Dr. Wiliam Peace in [place]. She carries a hx of DM-2, CKD, HTN, HLD, anxiety, depression and history of c diff s /p distant colectomy. She presented to the ED yesterday for dizziness, weakness , confusion. GI is consulted for "hepatic encephalopathy." The patient is seen and examined while she is in bed in the progressive care unit. She was initially sleeping, snoring. She was awakened easily and able to answer her full name, the name of the president and today's date. However, between each question, she fell asleep and had to be wakened to answer the next question. No asterixes are present on exam. On arrival, she had leukocytosis with WBC 17 and today, on Cefepime and Vanco, her WBC has decreased to 12.9. Her platelets are 288. Transaminases are normal and Alk Phos is minimally elevated at 169. An ammonia yesterday was 76 and today is 130. BSs are elevated : high 400's on arrival, today high 200's. Blood gasses show a metabolic acidosis. Regarding the question of hepatic encephalopathy, there is no documented hx of cirrhosis. A review of records shows the most recent CT (with IV contrast) was in 2015 with mention of an enlarged, fatty liver but w/o mention of cirrhosis. Her platelet levels have always been normal. Her most recent EGD at [facility] was completed by Dr. Hassan in 2007 for epigastric pain. Endoscopy was normal and biopsies suggested reflux esophagitis at the GE junction. The patient denied any hx of increased alcohol intake. Past Medical/Surgical History Medical Problems: (1) Abdominal pain Status: Acute (2) Confusion Status: Acute (3) Constipation Status: Acute (4) Dehydration Status: Acute (5) Dehydration Status: Acute (6) Hyperammonemia Status: Acute (7) Pneumonia Status: Acute Past Medical History: 1. DM-2 2. CKD 3. HTN 4. HLD 5. Anxiety 6. Depression 7. DKA 8. Pneumonia 9. Sepsis 10. Lumbar DDD Past Surgical History: 1. EGD 2. Colectomy for C-diff. Family History Diabetes mellitus Heart disease Social History Smoking Status: Current Every Day Smoker (04/11 ppd ) Drug Use: none Marital Status: Housing Status: lives with family Occupation Status: employed Allergies Coded Allergies: BEE STING (Verified Allergy, Intermediate, RED, SHORT OF BREATH, 04/17/17) Current Medications Home Meds and Scripts Medications Dose Route/Sig Max Daily Dose Days Date Category Topamax (Topiramate) 50 Mg Tab 75 Mg PO QPM 04/17/17 Reported Zestril (Lisinopril) 20 Mg Tab 20 Mg PO QAM 04/17/17 Reported Novolog Flexpen (Insulin Aspart) 100 Units/Ml Inj 20 Units SC TIDM 04/17/17 Reported Ventolin Hfa (Albuterol) 200 Puffs/82548 Mcg Aers 2 Puffs INH Q4H PRN 04/17/17 Reported Lipitor (Atorvastatin Calcium) 10 Mg Tab 10 Mg PO DAILY 08/10/15 Reported Hctz (Hydrochlorothiazide) 25 Mg Tab 25 Mg PO DAILY 08/10/15 Reported Tricor (Fenofibrate) 160 Mg Tab 160 Mg PO DAILY 08/10/15 Reported Lantus Solostar (Insulin Glargine) 100 Unit/Ml Inj 40 Units SC AMPM 04/16/15 Reported Norvasc (Amlodipine Besylate) 5 Mg Tab 5 Mg PO QAM 04/16/15 Reported Lyrica (Pregabalin) 50 Mg Cap 50 Mg PO QPM 12/08/14 Reported Propranolol Hcl Er (Propranolol Hcl) 120 Mg Cap 120 Mg PO BID 02/24/14 Reported Cymbalta (Duloxetine Hcl) 60 Mg Cap 60 Mg PO QPM 02/24/14 Reported Nexium (Esomeprazole Magnesium) 40 Mg Capcr 40 Mg PO QAM 02/24/14 Reported Review of Systems Constitutional: No fever, No chills, No sweats, No weight loss, No weakness Eyes: No eye pain, No redness ENT: No sore throat, No trouble swallowing, No pain on swallowing Respiratory: No cough, No wheezing, No shortness of breath, No dyspnea on exertion Cardiac: No chest pain, No edema, No palpitations Abdomen: + see HPI, + pain (was tender on exam and when asked said that she has had some abdominal pain but unable to tell me any details such as how long etc. ), No nausea, No vomiting, No diarrhea, No constipation, No GI bleeding Musculoskeletal: No joint pain Female : No dysuria Neuro: No memory loss, No weakness, No numbness/tingling, No vertigo, No balance problems Psych: No depression symptoms, No anxiety, No insomnia Heme: No abnormal bleeding/bruising, No night sweats Endo: + fatigue, No excessive thirst, No excessive urination Skin: No rash, No itch, No new/changing skin lesions, No jaundice Physical Exam Date Time Temp Pulse Resp B/P (MAP) Pulse Ox O2 Delivery O2 Flow Rate FiO2 04/18/17 08:00 Room Air 04/18/17 07:30 36.8 87 21 147/76 (99) 99 Room Air 04/18/17 04:00 Room Air 04/18/17 03:29 36.6 93 24 132/79 (96) 99 Room Air 04/18/17 00:00 Room Air 04/17/17 23:57 36.7 88 23 171/83 (112) 98 Room Air 04/17/17 20:00 Room Air 04/17/17 19:32 36.5 78 22 122/79 (93) 99 Room Air 04/17/17 17:00 36.4 71 20 109/61 (77) 95 Room Air 04/17/17 15:50 84 21 130/79 98 Room Air 04/17/17 15:26 100 Room Air 04/17/17 14:26 80 22 145/72 100 Room Air 04/17/17 13:41 88 22 110/77 97 Room Air 04/17/17 13:34 36.9 04/17/17 13:18 100 Room Air 04/17/17 13:17 78 04/17/17 13:07 76 16 129/85 100 Room Air General Appearance: no apparent distress, + pertinent finding (somnolent: sleeping, snoring easily arroused but falls asleep quickly as well. ) Eyes: normal inspection, EOMI Neck: supple, no adenopathy, thyroid normal Respiratory/Chest: chest non-tender, lungs clear, normal breath sounds, no accessory muscle use Cardiovascular: regular rate, rhythm, no JVD, no murmur Abdomen: normal bowel sounds, non tender, soft, no organomegaly Extremities: normal inspection, no pedal edema, normal capillary refill Neurologic/Psych: alert, normal mood/affect, oriented x 3 Skin: normal color, no jaundice, warm/dry, no rash, + pertinent finding ( multiple small skin scabs; facial flushing) Laboratory Results Last 24 Hours Test 04/17/17 13:24 04/17/17 13:40 04/17/17 13:50 04/17/17 13:52 Bedside Glucose 470 mg/dl Urine Color YELLOW Urine Appearance CLOUDY Urine pH 5.0 Urine Specific [place] 1.027 Urine Protein 3+ Urine Glucose (UA) 2+ Urine Ketones 1+ Urine Occult Blood 1+ Urine Nitrite NEG Urine Bilirubin NEG Urine Urobilinogen NEG Urine Leukocyte Esterase NEG Urine WBC (Auto) 5-10 /hpf Urine RBC (Auto) 0-4 /hpf Urine Hyaline Casts (Auto) 5-10 /lpf Urine Epithelial Cells (Auto) >30 /lpf Urine Bacteria (Auto) NEG Urine Renal Epithelial Cells 0-5 /lpf Urine Pathogenic Casts /lpf Urine Osmolality 428 mOms/kg Urine Random Sodium 48 mEq/L Urine Opiates Screen NEG Urine Methadone, Qualitative NEG Urine Barbiturates NEG Urine Phencyclidine (PCP) Level NEG Ur Amphetamine/Methamphetamine NEG MDMA (Ecstasy) Screen NEG Urine Benzodiazepines Screen NEG Urine Cocaine Metabolite NEG Urine Marijuana (THC) NEG White Blood Count 17.58 K/uL Red Blood Count 6.34 M/uL Hemoglobin 16.6 g/dL Hematocrit 50.2 % Mean Corpuscular Volume 79.2 fL Mean Corpuscular Hemoglobin 26.2 pg Mean Corpuscular Hemoglobin Concent 33.1 g/dl Platelet Count 564 K/uL Mean Platelet Volume 10.1 fL Neutrophils (%) (Auto) 82.1 % Lymphocytes (%) (Auto) 12.3 % Monocytes (%) (Auto) 4.2 % Eosinophils (%) (Auto) 0.1 % Basophils (%) (Auto) 0.2 % Neutrophils # (Auto) 14.45 K/uL Lymphocytes # (Auto) 2.16 K/uL Monocytes # (Auto) 0.73 K/uL Eosinophils # (Auto) 0.01 K/uL Basophils # (Auto) 0.03 K/uL RDW Standard Deviation 45.7 fL RDW Coefficient of Variation 16.1 % Immature Granulocyte % (Auto) 1.1 % Immature Granulocyte # (Auto) 0.20 K/uL Prothrombin Time 10.2 SECONDS Prothromb Time International Ratio 1.0 Activated Partial Thromboplast Time 37.4 SECONDS Partial Thromboplastin Ratio 1.4 Sodium Level 122 mmol/L Potassium Level 4.2 mmol/L Chloride Level 96 mmol/L Carbon Dioxide Level 9 mmol/L Anion Gap 17.0 mmol/L Blood Urea Nitrogen 33 mg/dl Creatinine 1.94 mg/dl Est Creatinine Clear Calc Drug Dose 37.4 ml/min Estimated GFR () 35.6 Estimated GFR (Non- 30.7 BUN/Creatinine Ratio 16.9 Random Glucose 465 mg/dl Estimated Average Glucose 349 mg/dl Hemoglobin A1c 13.8 % Calcium Level 8.6 mg/dl Magnesium Level 2.5 mg/dl Total Bilirubin 0.3 mg/dl Aspartate Amino Transf (AST/SGOT) 14 U/L Alanine Aminotransferase (ALT/SGPT) 30 U/L Alkaline Phosphatase 169 U/L Total Creatine Kinase 67 U/L Creatine Kinase MB 1.8 ng/ml Creatine Kinase MB Ratio 2.7 Troponin I < 0.015 ng/ml Total Protein 8.7 gm/dl Albumin 3.9 gm/dl Globulin 4.8 gm/dl Albumin/Globulin Ratio 0.8 Beta-Hydroxybutyric Acid 18.21 mg/dL Thyroid Stimulating Hormone (TSH) 1.140 uIu/ml Ammonia 76.2 umol/L Test 04/17/17 14:39 04/17/17 15:05 04/17/17 16:26 04/17/17 16:29 Bedside Glucose 423 mg/dl 381 mg/dl Bedside Lactic Acid Venous 0.99 mmol/L Sodium Level 127 mmol/L Potassium Level 3.9 mmol/L Chloride Level 102 mmol/L Carbon Dioxide Level 8 mmol/L Anion Gap 17.0 mmol/L Blood Urea Nitrogen 36 mg/dl Creatinine 1.77 mg/dl Est Creatinine Clear Calc Drug Dose 41.0 ml/min Estimated GFR () 39.8 Estimated GFR (Non- 34.3 BUN/Creatinine Ratio 20.4 Random Glucose 394 mg/dl Calcium Level 8.5 mg/dl Phosphorus Level 3.8 mg/dl Magnesium Level 2.5 mg/dl Beta-Hydroxybutyric Acid 16.04 mg/dL Test 04/17/17 17:42 04/17/17 18:44 04/17/17 19:43 04/17/17 20:11 Bedside Glucose 365 mg/dl 337 mg/dl 294 mg/dl Arterial Blood pH 7.06 Arterial Blood Partial Pressure CO2 22 mmHg Arterial Blood Partial Pressure O2 120 mm/Hg Arterial Blood HCO3 6 mmol/L Arterial Blood Oxygen Saturation 97.5 % Arterial Blood Base Excess -22.7 mEq/L Arterial Blood Gas Delivery ROOM AIR Mickey Test POS Sodium Level 128 mmol/L Potassium Level 4.0 mmol/L Chloride Level 107 mmol/L Carbon Dioxide Level 7 mmol/L Anion Gap 14.0 mmol/L Blood Urea Nitrogen 40 mg/dl Creatinine 1.75 mg/dl Est Creatinine Clear Calc Drug Dose 41.5 ml/min Estimated GFR () 40.3 Estimated GFR (Non- 34.8 BUN/Creatinine Ratio 22.7 Random Glucose 287 mg/dl Calcium Level 7.8 mg/dl Phosphorus Level 2.9 mg/dl Magnesium Level 2.2 mg/dl Test 04/17/17 20:48 04/17/17 21:35 04/17/17 22:36 04/17/17 23:36 Bedside Glucose 254 mg/dl 290 mg/dl 259 mg/dl 215 mg/dl Test 04/18/17 00:05 04/18/17 00:31 04/18/17 01:35 04/18/17 02:09 Arterial Blood pH 7.01 7.06 Arterial Blood Partial Pressure CO2 22 mmHg 22 mmHg Arterial Blood Partial Pressure O2 110 mm/Hg 116 mm/Hg Arterial Blood HCO3 5 mmol/L 6 mmol/L Arterial Blood Oxygen Saturation 96.7 % 97.4 % Arterial Blood Base Excess -24.4 mEq/L -22.5 mEq/L Arterial Blood Gas Delivery ROOM AIR ROOM AIR Mickey Test POS POS Sodium Level 132 mmol/L Potassium Level 4.5 mmol/L Chloride Level 111 mmol/L Carbon Dioxide Level 5 mmol/L Anion Gap 16.0 mmol/L Blood Urea Nitrogen 42 mg/dl Creatinine 1.84 mg/dl Est Creatinine Clear Calc Drug Dose 39.5 ml/min Estimated GFR () 38.0 Estimated GFR (Non- 32.8 BUN/Creatinine Ratio 22.7 Random Glucose 234 mg/dl Osmolality 300 mOsm/kg Calcium Level 7.3 mg/dl Magnesium Level 2.3 mg/dl Ethyl Alcohol mg/dL < 3.0 mg/dl Bedside Glucose 234 mg/dl 195 mg/dl Test 04/18/17 02:23 04/18/17 02:30 04/18/17 03:58 04/18/17 06:36 Salicylates Level 2.1 mg/dl Acetaminophen Level < 2 ug/ml Bedside Glucose 223 mg/dl 272 mg/dl White Blood Count 13.46 K/uL Red Blood Count 4.90 M/uL Hemoglobin 12.9 g/dL Hematocrit 38.4 % Mean Corpuscular Volume 78.4 fL Mean Corpuscular Hemoglobin 26.3 pg Mean Corpuscular Hemoglobin Concent 33.6 g/dl RDW Standard Deviation 45.7 fL RDW Coefficient of Variation 16.0 % Platelet Count 288 K/uL Mean Platelet Volume 9.4 fL Nucleated RBC Absolute Count (auto) 0.02 K/uL Nucleated Red Blood Cells % 0.2 % Arterial Blood pH 7.08 Arterial Blood Partial Pressure CO2 22 mmHg Arterial Blood Partial Pressure O2 118 mm/Hg Arterial Blood HCO3 7 mmol/L Arterial Blood Oxygen Saturation 97.6 % Arterial Blood Base Excess -21.8 mEq/L Arterial Blood Gas Delivery ROOM AIR Mickey Test POS Sodium Level 135 mmol/L Potassium Level 3.6 mmol/L Chloride Level 114 mmol/L Carbon Dioxide Level 7 mmol/L Anion Gap 15.0 mmol/L Blood Urea Nitrogen 42 mg/dl Creatinine 1.92 mg/dl Est Creatinine Clear Calc Drug Dose 37.8 ml/min Estimated GFR () 36.1 Estimated GFR (Non- 31.1 BUN/Creatinine Ratio 21.7 Random Glucose 241 mg/dl Calcium Level 6.9 mg/dl Phosphorus Level 2.3 mg/dl Magnesium Level 1.9 mg/dl Ammonia 130.0 umol/L Test 04/18/17 07:46 04/18/17 08:01 Bedside Glucose 278 mg/dl Sodium Level 136 mmol/L Potassium Level 3.6 mmol/L Chloride Level 114 mmol/L Carbon Dioxide Level 6 mmol/L Anion Gap 16.0 mmol/L Blood Urea Nitrogen 44 mg/dl Creatinine 2.09 mg/dl Est Creatinine Clear Calc Drug Dose 34.7 ml/min Estimated GFR () 32.5 Estimated GFR (Non- 28.1 BUN/Creatinine Ratio 21.2 Random Glucose 306 mg/dl Calcium Level 7.1 mg/dl Beta-Hydroxybutyric Acid 1.87 mg/dL Imaging: CXR 04/17/17: IMPRESSION: No active disease in the chest. CT head 04/17/17: 1. Minimal disconjugate ocular gaze 2. No acute intracranial findings Impression Patient is a 42 year old female with weakness and somnolence. She does not seem to be confused: if awakened, she is oriented to person, place, time, able to tell me the name of this town, the name of the president. She does not have asterixes. Her exam is not typical of hepatic encephalopathy (typically confusion and mild sedation in early stages). Instead, she is very somnolent but without confusion. She does not have evidence of cirrhosis on most recent CT (though it was a year ago) and her platelets are normal (typically decreased when cirrhosis begins). Though she does have fatty liver, confusion is not associated with fatty liver. Plan 1. Would work up for other causes of weakness. 2. Without the presence of cirrhosis, elevated ammonia is not associated with hepatic encephalopathy, so no clear reason to check or trend this lab (from a GI standpoint). 3. If further imaging is suggestive of cirrhosis, then would reconsider, but at this time, no GI w/u recommended. ATTESTATION: I have performed a history and physical examination of this patient and reviewed the electronic record. Specifically, on physical examination she is presently arousable without asterixis. I have discussed the case with LINDA Marvin. The above note reflects my findings, conclusions, and recommendations. Mark Hassan MD
--- NOTE | 2017-04-18 10:22 | DIAGNOSTIC IMAGING REPORT ---
KUB CLINICAL HISTORY: stat kub mental status change. Tube position. COMPARISON STUDY: No previous studies for comparison. FINDINGS: Feeding tube placed in the gastric fundus. Nonobstructive bowel pattern. Postoperative changes consistent with a L5-S1 fusion and laminectomy. IMPRESSION: Nonobstructive bowel pattern. Feeding tube placed within the gastric fundus. The above report was generated using voice recognition software. It may contain grammatical, syntax or spelling errors. Electronically signed by: Matias Ruth M.D. 04/18/2017 10:21 AM Dictated Date/Time: 04/18/2017 10:20 AM
[2017-04-18] MEDS ORDERED: INSULIN IV INFUSION PROTOCOL ONE (11:30)
[2017-04-18] MEDS ORDERED: DEXTROSE 5% 1000ML 1,000 ML IV SCH (11:30)
[2017-04-18] MEDS ORDERED: NORMOSOL R 1,000 ML IV SCH (11:30)
--- NOTE | 2017-04-18 11:30 | Progress Note ---
Internal Med Progress Note Date of Service: Apr 18, 2017. Provider Documentation: SUBJECTIVE: remains somnolent , opens eyes briefly to voice , falls back into sleep loud audible snoring moving all limbs multiple scabs noted in both arms and hands admitted yesterday with DKA /OK /elevated Anion gap , metabolic acidosis has been on IV insulin gtt and IVF severe metabolic acidosis noted in AM labs pt is being transferred to ICU OBJECTIVE: Vital Signs-as noted below Exam: General-obese , somnolent Eyes-sclera injected ENT-dry oral mucosa Neck-tranche midline , no thyromegaly Lungs-no rales or wheeze Heart-regular S1/S2 , no JVD, no lower ext edema Abdomen-soft, non tender Extremities-multiple scab wounds in different stages of healing in both arms and hands Neuro-somnolent , arousable , no focal deficit noted Lab data as noted below. ASSESSMENT & PLAN: TYPE 2 DM /POORLY COMPLIANT /DKA -has not been taking insulin for few days presents with DKA , severe metabolic acidosis , Hb A1c > 13 ( poorly controlled ) started on IV Insulin GTT appreciate pharmacy input for glycemic management SEVERE METABOLIC ACIDOSIS : due to above presented with Hco3 9 /AG >16 ABG shows pH 7.06/co2 22/PO2 120/Hco3 6 lactic acid -wnl pt started on IV insulin infusion , IVF @ 200 ml /hr given multiple amps of Hco3 by promotion specialist MD last might remains in metabolic acidosis , with Hco3 worsening ~5 pt is transferred to ICU hays culture -blood /urine culture ordered no draining skin wound noted ( reports of cat scratching multiple times ) on empiric Abx with vancomycin /Cefepime can be discontinued with cultures are negative ordered for MRSA screen ACUTE KIDNEY INJURY IN SETTING OF CKD STAGE 3 hx of diabetic nephropathy , baseline cr approx ~3 presented with Cr 1.9-> 2 ACEI /HCTZ kept on hold IVF fluid ordered follow PRP closely Nephrology consulted CONFUSION /LETHARGY : possible metabolic encephalopathy due to above cont correction of acidosis /dehydration CT head -no acute change HYPERAMMONEMIA : not sure of the etiology no evidence of hepatic compromise -no shock liver, no prior dx of chronic liver disease Ammonia level > 100 ordered for lactulose LFT's wnl , except for mild elevation of Alk phos no report of ETOH abuse CT abdomen /pelvis in 2016 noted to have fatty infiltration of liver recent EGD by Dr. Hassan in 2007 for epigastric pain. Endoscopy was normal and biopsies suggested reflux esophagitis at the GE junction. ordered for liver [facility] GI eval requested , appreciate input no GI intervention indicated , recommends continued correction of DKA , metabolic acidosis Leukocytosis: improved -Wbc count of 17.58-> 13 K -Likely 2/2 DKA/dehydration possible infection 2/2 scratches -Clinically unimpressive but h/o staph infection due to wounds -Empirically treated with vanc and cefepime -Blood cultures ordered HTN: -on amlodipine -Held HCTZ and lisinopril in setting of OK POSSIBLE CELINA : out pt sleep study needed Anxiety/depression: -Cont cymbalta History of migraines: -Cont Topamax and propranolol ppx H/o c diff: -ordered diff toxin assay DVT Ppx: Heparin SQ Code status: FULL DISPOSITION transfer pt to ICU for persisted severe metabolic acidosis expected to be discharged home when medically stable medicine follow up with Dr Garsia Vital Signs: Date Time Temp Pulse Resp B/P (MAP) Pulse Ox O2 Delivery O2 Flow Rate FiO2 04/18/17 08:00 Room Air 04/18/17 07:30 36.8 87 21 147/76 (99) 99 Room Air 04/18/17 04:00 Room Air 04/18/17 03:29 36.6 93 24 132/79 (96) 99 Room Air 04/18/17 00:00 Room Air 04/17/17 23:57 36.7 88 23 171/83 (112) 98 Room Air 04/17/17 20:00 Room Air 04/17/17 19:32 36.5 78 22 122/79 (93) 99 Room Air 04/17/17 17:00 36.4 71 20 109/61 (77) 95 Room Air 04/17/17 15:50 84 21 130/79 98 Room Air 04/17/17 15:26 100 Room Air 04/17/17 14:26 80 22 145/72 100 Room Air 04/17/17 13:41 88 22 110/77 97 Room Air 04/17/17 13:34 36.9 04/17/17 13:18 100 Room Air 04/17/17 13:17 78 04/17/17 13:07 76 16 129/85 100 Room Air Lab Results: Results Past 24 Hours Test 04/17/17 13:24 04/17/17 13:40 04/17/17 13:50 04/17/17 13:52 Range/Units Bedside Glucose 470 70-90 mg/dl Urine Color YELLOW Urine Appearance CLOUDY CLEAR Urine pH 5.0 4.5-7.5 Urine Specific Humphreys 1.027 1.000-1.030 Urine Protein 3+ NEG Urine Glucose (UA) 2+ NEG Urine Ketones 1+ NEG Urine Occult Blood 1+ NEG Urine Nitrite NEG NEG Urine Bilirubin NEG NEG Urine Urobilinogen NEG NEG Urine Leukocyte Esterase NEG NEG Urine WBC (Auto) 5-10 0-5 /hpf Urine RBC (Auto) 0-4 0-4 /hpf Urine Hyaline Casts (Auto) 5-10 0-5 /lpf Urine Epithelial Cells (Auto) >30 0-5 /lpf Urine Bacteria (Auto) NEG NEG Urine Renal Epithelial Cells 0-5 0-5 /lpf Urine Pathogenic Casts 0 /lpf Urine Osmolality 428 500-800 mOms/kg Urine Random Sodium 48 mEq/L Urine Opiates Screen NEG NEG Urine Methadone, Qualitative NEG NEG Urine Barbiturates NEG NEG Urine Phencyclidine (PCP) Level NEG NEG Ur Amphetamine/Methamphetamine NEG NEG MDMA (Ecstasy) Screen NEG NEG Urine Benzodiazepines Screen NEG NEG Urine Cocaine Metabolite NEG NEG Urine Marijuana (THC) NEG NEG White Blood Count 17.58 4.8-10.8 K/uL Red Blood Count 6.34 4.2-5.4 M/uL Hemoglobin 16.6 12.0-16.0 g/dL Hematocrit 50.2 37-47 % Mean Corpuscular Volume 79.2 80-100 fL Mean Corpuscular Hemoglobin 26.2 25-34 pg Mean Corpuscular Hemoglobin Concent 33.1 32-36 g/dl Platelet Count 564 130-400 K/uL Mean Platelet Volume 10.1 7.4-10.4 fL Neutrophils (%) (Auto) 82.1 % Lymphocytes (%) (Auto) 12.3 % Monocytes (%) (Auto) 4.2 % Eosinophils (%) (Auto) 0.1 % Basophils (%) (Auto) 0.2 % Neutrophils # (Auto) 14.45 1.4-6.5 K/uL Lymphocytes # (Auto) 2.16 1.2-3.4 K/uL Monocytes # (Auto) 0.73 0.11-0.59 K/uL Eosinophils # (Auto) 0.01 0-0.5 K/uL Basophils # (Auto) 0.03 0-0.2 K/uL RDW Standard Deviation 45.7 36.4-46.3 fL RDW Coefficient of Variation 16.1 11.5-14.5 % Immature Granulocyte % (Auto) 1.1 % Immature Granulocyte # (Auto) 0.20 0.00-0.02 K/uL Prothrombin Time 10.2 9.0-12.0 SECONDS Prothromb Time International Ratio 1.0 0.9-1.1 Activated Partial Thromboplast Time 37.4 21.0-31.0 SECONDS Partial Thromboplastin Ratio 1.4 Sodium Level 122 136-145 mmol/L Potassium Level 4.2 3.5-5.1 mmol/L Chloride Level 96 98-107 mmol/L Carbon Dioxide Level 9 21-32 mmol/L Anion Gap 17.0 3-11 mmol/L Blood Urea Nitrogen 33 7-18 mg/dl Creatinine 1.94 0.60-1.20 mg/dl Est Creatinine Clear Calc Drug Dose 37.4 ml/min Estimated GFR () 35.6 Estimated GFR (Non- 30.7 BUN/Creatinine Ratio 16.9 10-20 Random Glucose 465 70-99 mg/dl Estimated Average Glucose 349 mg/dl Hemoglobin A1c 13.8 4.5-5.6 % Calcium Level 8.6 8.5-10.1 mg/dl Magnesium Level 2.5 1.8-2.4 mg/dl Total Bilirubin 0.3 0.2-1 mg/dl Aspartate Amino Transf (AST/SGOT) 14 15-37 U/L Alanine Aminotransferase (ALT/SGPT) 30 12-78 U/L Alkaline Phosphatase 169 45-117 U/L Total Creatine Kinase 67 26-192 U/L Creatine Kinase MB 1.8 0.5-3.6 ng/ml Creatine Kinase MB Ratio 2.7 0-3.0 Troponin I < 0.015 0-0.045 ng/ml Total Protein 8.7 6.4-8.2 gm/dl Albumin 3.9 3.4-5.0 gm/dl Globulin 4.8 2.5-4.0 gm/dl Albumin/Globulin Ratio 0.8 0.9-2 Beta-Hydroxybutyric Acid 18.21 0.2-2.81 mg/dL Thyroid Stimulating Hormone (TSH) 1.140 0.300-4.500 uIu/ml Ammonia 76.2 11-32 umol/L Test 04/17/17 14:39 04/17/17 15:05 04/17/17 16:26 04/17/17 16:29 Range/Units Bedside Glucose 423 381 70-90 mg/dl Bedside Lactic Acid Venous 0.99 0.90-1.70 mmol/L Sodium Level 127 136-145 mmol/L Potassium Level 3.9 3.5-5.1 mmol/L Chloride Level 102 98-107 mmol/L Carbon Dioxide Level 8 21-32 mmol/L Anion Gap 17.0 3-11 mmol/L Blood Urea Nitrogen 36 7-18 mg/dl Creatinine 1.77 0.60-1.20 mg/dl Est Creatinine Clear Calc Drug Dose 41.0 ml/min Estimated GFR () 39.8 Estimated GFR (Non- 34.3 BUN/Creatinine Ratio 20.4 10-20 Random Glucose 394 70-99 mg/dl Calcium Level 8.5 8.5-10.1 mg/dl Phosphorus Level 3.8 2.5-4.9 mg/dl Magnesium Level 2.5 1.8-2.4 mg/dl Beta-Hydroxybutyric Acid 16.04 0.2-2.81 mg/dL Test 04/17/17 17:42 04/17/17 18:44 04/17/17 19:43 04/17/17 20:11 Range/Units Bedside Glucose 365 337 294 70-90 mg/dl Arterial Blood pH 7.06 7.35-7.45 Arterial Blood Partial Pressure CO2 22 35-46 mmHg Arterial Blood Partial Pressure O2 120 80-95 mm/Hg Arterial Blood HCO3 6 19-24 mmol/L Arterial Blood Oxygen Saturation 97.5 90-95 % Arterial Blood Base Excess -22.7 -9-1.8 mEq/L Arterial Blood Gas Delivery ROOM AIR Mickey Test POS POS Sodium Level 128 136-145 mmol/L Potassium Level 4.0 3.5-5.1 mmol/L Chloride Level 107 98-107 mmol/L Carbon Dioxide Level 7 21-32 mmol/L Anion Gap 14.0 3-11 mmol/L Blood Urea Nitrogen 40 7-18 mg/dl Creatinine 1.75 0.60-1.20 mg/dl Est Creatinine Clear Calc Drug Dose 41.5 ml/min Estimated GFR () 40.3 Estimated GFR (Non- 34.8 BUN/Creatinine Ratio 22.7 10-20 Random Glucose 287 70-99 mg/dl Calcium Level 7.8 8.5-10.1 mg/dl Phosphorus Level 2.9 2.5-4.9 mg/dl Magnesium Level 2.2 1.8-2.4 mg/dl Test 04/17/17 20:48 04/17/17 21:35 04/17/17 22:36 04/17/17 23:36 Range/Units Bedside Glucose 254 290 259 215 70-90 mg/dl Test 04/18/17 00:05 04/18/17 00:31 04/18/17 01:35 04/18/17 02:09 Range/Units Arterial Blood pH 7.01 7.06 7.35-7.45 Arterial Blood Partial Pressure CO2 22 22 35-46 mmHg Arterial Blood Partial Pressure O2 110 116 80-95 mm/Hg Arterial Blood HCO3 5 6 19-24 mmol/L Arterial Blood Oxygen Saturation 96.7 97.4 90-95 % Arterial Blood Base Excess -24.4 -22.5 -9-1.8 mEq/L Arterial Blood Gas Delivery ROOM AIR ROOM AIR Mickey Test POS POS POS Sodium Level 132 136-145 mmol/L Potassium Level 4.5 3.5-5.1 mmol/L Chloride Level 111 98-107 mmol/L Carbon Dioxide Level 5 21-32 mmol/L Anion Gap 16.0 3-11 mmol/L Blood Urea Nitrogen 42 7-18 mg/dl Creatinine 1.84 0.60-1.20 mg/dl Est Creatinine Clear Calc Drug Dose 39.5 ml/min Estimated GFR () 38.0 Estimated GFR (Non- 32.8 BUN/Creatinine Ratio 22.7 10-20 Random Glucose 234 70-99 mg/dl Osmolality 300 280-300 mOsm/kg Calcium Level 7.3 8.5-10.1 mg/dl Magnesium Level 2.3 1.8-2.4 mg/dl Ethyl Alcohol mg/dL < 3.0 0-3 mg/dl Bedside Glucose 234 195 70-90 mg/dl Test 04/18/17 02:23 04/18/17 02:30 04/18/17 03:33 04/18/17 03:58 Range/Units Salicylates Level 2.1 2.8-20 mg/dl Acetaminophen Level < 2 10-30 ug/ml Bedside Glucose 223 224 70-90 mg/dl White Blood Count 13.46 4.8-10.8 K/uL Red Blood Count 4.90 4.2-5.4 M/uL Hemoglobin 12.9 12.0-16.0 g/dL Hematocrit 38.4 37-47 % Mean Corpuscular Volume 78.4 80-100 fL Mean Corpuscular Hemoglobin 26.3 25-34 pg Mean Corpuscular Hemoglobin Concent 33.6 32-36 g/dl RDW Standard Deviation 45.7 36.4-46.3 fL RDW Coefficient of Variation 16.0 11.5-14.5 % Platelet Count 288 130-400 K/uL Mean Platelet Volume 9.4 7.4-10.4 fL Nucleated RBC Absolute Count (auto) 0.02 0-0 K/uL Nucleated Red Blood Cells % 0.2 % Arterial Blood pH 7.08 7.35-7.45 Arterial Blood Partial Pressure CO2 22 35-46 mmHg Arterial Blood Partial Pressure O2 118 80-95 mm/Hg Arterial Blood HCO3 7 19-24 mmol/L Arterial Blood Oxygen Saturation 97.6 90-95 % Arterial Blood Base Excess -21.8 -9-1.8 mEq/L Arterial Blood Gas Delivery ROOM AIR Mickey Test POS POS Sodium Level 135 136-145 mmol/L Potassium Level 3.6 3.5-5.1 mmol/L Chloride Level 114 98-107 mmol/L Carbon Dioxide Level 7 21-32 mmol/L Anion Gap 15.0 3-11 mmol/L Blood Urea Nitrogen 42 7-18 mg/dl Creatinine 1.92 0.60-1.20 mg/dl Est Creatinine Clear Calc Drug Dose 37.8 ml/min Estimated GFR () 36.1 Estimated GFR (Non- 31.1 BUN/Creatinine Ratio 21.7 10-20 Random Glucose 241 70-99 mg/dl Calcium Level 6.9 8.5-10.1 mg/dl Phosphorus Level 2.3 2.5-4.9 mg/dl Magnesium Level 1.9 1.8-2.4 mg/dl Ammonia 130.0 11-32 umol/L Test 04/18/17 04:46 04/18/17 05:38 04/18/17 06:36 04/18/17 07:46 Range/Units Bedside Glucose 284 255 272 278 70-90 mg/dl Test 04/18/17 08:01 04/18/17 08:33 04/18/17 09:47 04/18/17 10:38 Range/Units Sodium Level 136 136-145 mmol/L Potassium Level 3.6 3.5-5.1 mmol/L Chloride Level 114 98-107 mmol/L Carbon Dioxide Level 6 21-32 mmol/L Anion Gap 16.0 3-11 mmol/L Blood Urea Nitrogen 44 7-18 mg/dl Creatinine 2.09 0.60-1.20 mg/dl Est Creatinine Clear Calc Drug Dose 34.7 ml/min Estimated GFR () 32.5 Estimated GFR (Non- 28.1 BUN/Creatinine Ratio 21.2 10-20 Random Glucose 306 70-99 mg/dl Calcium Level 7.1 8.5-10.1 mg/dl Beta-Hydroxybutyric Acid 1.87 0.2-2.81 mg/dL Bedside Glucose 274 274 245 70-90 mg/dl Test 04/18/17 11:29 04/18/17 12:00 Range/Units Bedside Glucose 288 70-90 mg/dl Microbiology Results 04/17/17 Blood Culture, Received Pending 04/17/17 Blood Culture, Received Pending
[2017-04-18] MEDS: INSULIN REGULAR 250 UNITS in SODIUM CHLORIDE 0.9% 250ML 250 ML IV SCH ×2 (11:46→17:47)
[2017-04-18] MEDS ORDERED: VANCOMYCIN INJ 1,250 MG in SODIUM CHLORIDE 0.9% 250ML 250 ML IV SCH (12:00)
[2017-04-18 12:54] LABS: ALBUMIN 2.7 gm/dl (3.4-5.0); ALKALINE PHOSPHATASE 115 U/L (45-117); ALT/SGPT 24 U/L (12-78); AST/SGOT 23 U/L (15-37); BLOOD UREA NITROGEN 42 mg/dl (7-18); CALCIUM 6.7 mg/dl (8.5-10.1); CARBON DIOXIDE 5 mmol/L (21-32); CREATININE 2.24 mg/dl (0.60-1.20); GLUCOSE 255 mg/dl (70-99); PHOSPHORUS 2.1 mg/dl (2.5-4.9); POTASSIUM 3.5 mmol/L (3.5-5.1); SODIUM 132 mmol/L (136-145); TOTAL PROTEIN 6.1 gm/dl (6.4-8.2)
--- NOTE | 2017-04-18 13:49 | Pharmacy Progress Note ---
Glycemic: Assessment & Plan Date of Service Apr 18, 2017. Assessment & Plan Antibiotics: * Vancomycin * adjusted due to worsening renal function to 1250mg q28 after a 2000mg load. * Will schedule level as clinically indicated * Cefepime * Continue 2g q24 Glycemic: The patient remains on the insulin drip due to elevated BSGs and acidotic state. The following alterations were made * Insulin drip was increased to a DKA dose of 0.1 units/kg/hr (8 units/hr) in order to deliver more insulin in an attempt to improve gap acidosis * Nurse was instructed to use the protocol and calculator as normal * Fluids were adjusted from 250cc1/2 NS to 75ml/hr normosol and 75 ml/hr D5W in order * Patient currently only has 2 peripheral access sites. As such the insulin drip and normosol are running together and the dextrose is running at the other site. The vancomycin and the cefepime can be run with dextrose. Pharmacy will continue to monitor patient daily and write orders per [facility] inpatient glycemic control protocol. Thanks. * Please note that the plan above was derived based on current level of insulin resistance and hospital stress. These recommendations are appropriate for inpatient admission only. Plan of care upon discharge will need to be reassessed to avoid potential outpatient hypo/hyperglycemia.
[2017-04-18] MEDS ORDERED: CEFEPIME IV 2,000 MG in SYRINGE 7.5 ML IV SCH (14:00)
[2017-04-18] MEDS ORDERED: CALCIUM GLUCONATE 10% 2,000 MG in SODIUM CHLORIDE 0.9% 50ML 50 ML IV ONE (15:15)
--- NOTE | 2017-04-18 15:36 | DIAGNOSTIC IMAGING REPORT ---
(LIVER) ABDOMEN LIMITED CLINICAL HISTORY: elevated ammonia leval / pain. Nausea. TECHNIQUE: Ultrasound COMPARISON STUDY: None FINDINGS: Several gallstones the region of the gallbladder neck. Gallbladder wall 2 mm. No pericholecystic fluid. Common bile duct 6 mm. Fatty infiltration of liver. Pancreas is uniform. Pancreatic duct is 2 mm. Right kidney is negative for hydronephrosis. IMPRESSION: Several small gallstones in the region of the gallbladder neck. Normal caliber bile ducts. Fatty infiltration of liver. The above report was generated using voice recognition software. It may contain grammatical, syntax or spelling errors. Electronically signed by: Matias Ruth M.D. 04/18/2017 3:34 PM Dictated Date/Time: 04/18/2017 3:32 PM
--- NOTE | 2017-04-18 15:37 | DIAGNOSTIC IMAGING REPORT ---
ULTRASOUND KIDNEYS AND BLADDER CLINICAL HISTORY: Renal failure. COMPARISON STUDY: Abdominal CT dated 08/10/2015. TECHNIQUE: Real-time, grayscale, and color flow sonography of the kidneys and bladder is performed. Images are reviewed in the transverse and longitudinal planes. FINDINGS: Kidneys: The right kidney appears mildly enlarged. The kidneys are normal in echotexture. The right kidney measures 15.1 x 6.5 x 7.3 cm and the left kidney measures 12.5 x 7.1 x 7.5 cm. There is no hydronephrosis. No shadowing renal calculi are identified. Small left renal cysts measure up to 2.0 cm. There is no sonographic evidence of contour deforming renal mass lesion. There is trace nonspecific bilateral perinephric fluid. Bladder: The bladder is decompressed around a Cheng catheter. The bladder wall appears thickened. Ureteral jets were not seen. Upper abdomen: Survey images of the liver show hepatomegaly and hepatic steatosis. IMPRESSION: 1. There is no hydronephrosis. 2. Although decompressed around a Cheng catheter the bladder wall appears thickened. Correlation with clinical findings and urinalysis will be required. 3. There is trace nonspecific bilateral perinephric fluid. 4. Hepatomegaly and severe hepatic steatosis. Electronically signed by: Lev López M.D. 04/18/2017 3:35 PM Dictated Date/Time: 04/18/2017 3:31 PM
--- NOTE | 2017-04-18 15:39 | NEPHROLOGY CONSULTATION ---
DATE OF CONSULTATION: 04/18/2017 DATE OF CONSULTATION: 04/18/2017 ATTENDING OF RECORD: Dr. Riley. REASON FOR CONSULTATION: OK with severe metabolic acidosis and hyponatremia. HISTORY OF PRESENT ILLNESS: This is a 42-year-old female who was seen by me during previous hospitalization in February 2014 with OK with severe acidosis who has a history of prolonged hospitalization in 2012 where she was intubated and trached and also with a history of C. diff colitis status post colectomy. During the admission in February 2014, the patient had a creatinine of 4.22, bicarb of 12 with DKA and eventually improved to a creatinine of 1.92. The patient was supposed to follow up with me as a hospital followup, but did not. Talking to her the patient has a bottle of ibuprofen and "takes them like candy". The patient was not taking her insulin for the last couple days, reported not feeling well on Monday but other than that no other recent infections or hospitalizations or procedures. The patient with the colectomy normally has loose bowels and comes in with a creatinine of 1.94, has trended up to 2.24, bicarb that was 9 and now has trended down to 5 on an insulin drip and aggressive IV fluid resuscitation. Calcium level has gone from 8.6 down to 6.7. Ammonia level was trended up to 130. Albumin has trended down to 2.7. Sodium level was 122 on admission with a blood sugar of 470 and sodium level has trended up to 136 this morning, now has trended back down to 132. Currently on 75 mL of D5W as well as 75 mL of normosol in addition to the insulin drip. The patient initially on admission was walking and talking, but overnight became very lethargic, arousable to stimulation and able to know name, location, president and year, but then goes right back to sleep. Getting labs every 4 hours. Was transferred to the intensive care unit this morning. Blood gases had a low pH 7.06 and despite fluids and insulin last check at 4:00 this morning was still 7.08. REVIEW OF SYSTEMS: Unobtainable. CURRENT MEDICATIONS: 1. Topamax 75 mg a day. 2. Vancomycin IV insulin drip. 3. Cefepime 2 grams IV daily. 4. D5W at 75. 5. Normosol at 75. 6. Norvasc 5 mg a day. 7. Heparin 5000 units subQ q. 8. 8. Cymbalta 60 mg daily. 9. Lyrica 50 mg daily. 10. Propranolol 120 mg p.o. b.i.d. 11. Pepcid 20 mg IV q. 12. 12. Sliding scale insulin in addition to insulin drip. PAST MEDICAL HISTORY/PAST SURGICAL HISTORY: C. 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 SOCIAL HISTORY: Former smoker, no alcohol, no drugs. and lives at home. FAMILY HISTORY: No renal disease in family. PHYSICAL EXAMINATION: VITAL SIGNS: Temperature 36.8, pulse 87, respiratory rate 21, blood pressure 147/76, satting 99% on room air. GENERAL: Awake, alert, oriented x3, although very lethargic. EYES: Proptosis with no scleral edema. No scleral icterus. EARS, NOSE, THROAT: Mucous membranes are dry. NECK: Supple. PULMONARY: Clear to auscultation. CARDIAC: Regular rate and rhythm. ABDOMEN: Hypoactive bowel sounds. EXTREMITIES: No clubbing, cyanosis or edema. NEUROLOGICALLY: Lethargic. DERMATOLOGIC: No rash or ulcers noted. LABORATORY DATA: White count is 13, H&H 12 and 38, platelet count is 288. Sodium level 132, potassium 3.5, chloride 113, bicarbonate 5, BUN is 42, creatinine is 2.24, glucose 255, calcium 6.7, phos 2.1, mag is 2.1, albumin is 2.7. Lactic acid is negative. Salicylates negative. Tylenol negative. Ethyl alcohol negative. UA shows a pH of 5, specific gravity 1.027, 3+ protein, 2+ glucose, 1+ ketones, 1+ blood. Blood cultures are pending. ASSESSMENT AND PLAN: 1. Elevated creatinine with unclear baseline creatinine. Supposedly has seen Dr. Sheila Troncoso of [place] as an outpatient. The previous creatinine in 2013 upon day of discharge was down to 1.92. Creatinine in August of 2015 of 1 and presents with a creatinine of 1.94, likely with OK given the fact that the patient has significant DKA with volume depletion in the setting of presumed infection. Currently on broad spectrum antibiotics with blood cultures pending, placement of Cheng catheter and monitor I's and O's. If acidosis does not resolve, could consider doing dialysis in the setting of persistent acidosis that is not resolving; however, should start to eventually improve as we continue fluid resuscitation and insulin drip. 2. Hyponatremia. Sodium level when correcting for glucose was around 126 and trended up to 135 to 136 and now is 132. Goal is to try to keep in the low 130s and would continue the current IV fluid resuscitation. Her vital signs are stable and the patient to me still looks clinically dry. Will continue the aggressive fluid resuscitation while following periodic labs every 4 hours. Case was discussed with critical care who agrees with the plan. Answered 's questions, son was also in the room. Overall, poor prognosis given the patient's constellation of symptoms with previous DKAs in the past who has significant lethargy in the setting of presumed infection and persistent acidosis. Should start to improve with the antibiotics, insulin and fluids. Will follow labs closely and consider intubation if necessary for airway production and/or dialysis if necessary, but hoping to avoid both and continue conservative measures. I appreciate the consultation. SHAUNA
--- NOTE | 2017-04-18 16:51 | Critical Care Consultation ---
Critical Care Consultation Date of Consultation: Apr 18, 2017. Attending Physician: Marychuy Riley M.D. Reason for Consultation: Diabetic ketoacidosis History of Present Illness This is a 42 year old female with history of type 1 diabetes, HTN, h/o colectomy for Cdiff, presented to ED yesterday for malaise, dizziness, lightheadedness, abdominal discomfort and decreased urination for several days. She did not take her insulin for couple for days because she wasn't feeling well. Reportedly she had multiple cat scratches for the past month. She was transferred to ICU for worsening confusion. Received IV fluids, ABx, started on an insulin. She remains lethargic but occasionally she arouses, mumbles few words and goes back into lethargy. Past Medical/Surgical History DM, h/o DKA H/o c-diff colitis, s/p colectomy H/o bacteremia Family History Diabetes mellitus Heart disease Social History Smoking Status: Current Every Day Smoker (1/2 ppd ) Drug Use: none Marital Status: Housing Status: lives with family Occupation Status: employed Allergies Coded Allergies: BEE STING (Verified Allergy, Intermediate, RED, SHORT OF BREATH, 04/17/17) Home Medications Scheduled Amlodipine (Norvasc), 5 MG PO QAM Atorvastatin (Lipitor), 10 MG PO DAILY Duloxetine Hcl (Cymbalta), 60 MG PO QPM Esomeprazole Magnesium (Nexium), 40 MG PO QAM Fenofibrate (Tricor), 160 MG PO DAILY Hydrochlorothiazide (Hctz), 25 MG PO DAILY Insulin Aspart (Novolog Flexpen), 20 UNITS SC TIDM Insulin Glargine (Lantus Solostar), 40 UNITS SC AMPM Lisinopril (Zestril), 20 MG PO QAM Pregabalin (Lyrica), 50 MG PO QPM Propranolol Hcl (Propranolol Hcl Er), 120 MG PO BID Topiramate (Topamax), 75 MG PO QPM Scheduled PRN Albuterol Hfa (Ventolin Hfa), 2 PUFFS INH Q4H PRN for SOB/Wheezing Current Inpatient Medications Current Inpatient Medications Medications (Trade) Dose Ordered Sig/Yudy Route Start Time Stop Time Status Last Admin Dose Admin Glucose (Glucose 40% Gel) UD PRN PO 04/17/17 15:00 05/17/17 14:59 Glucose (Glucose Chew Tab) 1 tabs UD PRN PO 04/17/17 15:00 05/17/17 14:59 Dextrose (Dextrose 50% 50ML Syringe) 50 ml UD PRN IV 04/17/17 15:00 05/17/17 14:59 Glucagon (Glucagon Inj) 1 mg UD PRN SQ 04/17/17 15:00 05/17/17 14:59 Insulin Aspart (novoLOG ASPART) SLIDING SCALE HS SC 04/17/17 17:30 05/17/17 18:59 Miscellaneous Information (Consult Glycemic Management Pharmacy) 1 ea UD PRN N/A 04/17/17 15:45 05/17/17 15:44 Heparin Sodium (Porcine) (Heparin Sq 5000 Unit/0.5ml) 5,000 unit Q8 SQ 04/17/17 22:00 05/17/17 21:59 04/18/17 14:06 5,000 UNIT Acetaminophen (Tylenol Tab) 650 mg Q4H PRN PO 04/17/17 16:00 05/17/17 15:59 Ondansetron HCl (Zofran Inj) 4 mg Q6H PRN IV 04/17/17 16:00 05/17/17 15:59 Albuterol (Ventolin Hfa Inhaler) 2 puffs Q4H PRN INH 04/17/17 16:15 05/17/17 16:14 Amlodipine Besylate (Norvasc Tab) 5 mg QAM PO 04/18/17 09:00 05/18/17 08:59 Atorvastatin Calcium (Lipitor Tab) 10 mg DAILY PO 04/18/17 09:00 05/18/17 08:59 Future Hold Duloxetine HCl (Cymbalta Cap) 60 mg QPM PO 04/17/17 21:00 05/17/17 20:59 04/17/17 20:52 60 MG Pregabalin (Lyrica Cap) 50 mg QPM PO 04/17/17 21:00 05/17/17 20:59 04/17/17 20:55 50 MG Topiramate (Topamax Tab) 75 mg QPM PO 04/18/17 21:00 05/18/17 20:59 Propranolol HCl (Inderal La Cap) 120 mg BID PO 04/17/17 21:00 05/17/17 20:59 04/17/17 20:52 120 MG Vancomycin HCl (Consult) 1 ea UD PRN N/A 04/17/17 16:27 05/17/17 16:26 Famotidine 20 mg/ Syringe 5 ml @ 2.5 mls/min Q12H IV 04/17/17 18:00 05/17/17 17:59 04/18/17 05:33 2.5 MLS/MIN Insulin Human Regular 250 units/ Sodium Chloride 252.5 ml @ 0 mls/hr Q24H IV 04/18/17 15:00 05/18/17 14:59 Cefepime HCl 2000 mg/Syringe 20 ml @ 5 mls/min Q24H IV 04/18/17 14:00 04/26/17 14:03 04/18/17 14:06 5 MLS/MIN Parenteral Electrolyte Solution 1,000 ml @ 75 mls/hr [id number] IV 04/18/17 11:30 05/18/17 11:29 04/18/17 11:47 75 MLS/HR Dextrose 1,000 ml @ 75 mls/hr [id number] IV 04/18/17 11:30 05/18/17 11:29 04/18/17 11:47 75 MLS/HR Vancomycin HCl 1250 mg/Sodium Chloride 275 ml @ 125 mls/hr Q28H IV 04/18/17 18:00 04/28/17 17:59 Review of Systems Unable to obtain secondary to encephalopathy Physical Exam Date Time Temp Pulse Resp B/P (MAP) Pulse Ox O2 Delivery O2 Flow Rate FiO2 04/18/17 15:00 87 20 100 04/18/17 15:00 87 20 100 04/18/17 14:02 85 20 147/86 (106) 100 04/18/17 14:02 85 20 147/86 (95) 100 04/18/17 14:00 86 15 100 04/18/17 14:00 86 15 100 04/18/17 13:02 87 21 162/91 (114) 100 04/18/17 13:02 87 21 162/91 (127) 100 04/18/17 13:02 87 21 162/91 (127) 100 04/18/17 13:00 86 20 100 04/18/17 13:00 86 20 100 04/18/17 13:00 86 20 100 04/18/17 12:52 86 18 149/115 (128) 100 04/18/17 12:52 86 18 149/115 (126) 100 04/18/17 12:30 87 16 100 04/18/17 12:03 85 14 /54 (69) 100 04/18/17 12:03 85 14 /54 (36) 100 04/18/17 12:00 86 15 100 04/18/17 12:00 94 Nasal Cannula 4.0 04/18/17 12:00 86 15 100 04/18/17 11:30 85 18 100 04/18/17 11:02 85 16 135/94 (103) 100 04/18/17 11:00 85 16 100 04/18/17 10:30 86 15 99 04/18/17 08:00 Room Air 04/18/17 08:00 Nasal Cannula 04/18/17 07:30 36.8 87 21 147/76 (99) 99 Room Air 04/18/17 04:00 Room Air 04/18/17 03:29 36.6 93 24 132/79 (96) 99 Room Air 04/18/17 00:00 Room Air 04/17/17 23:57 36.7 88 23 171/83 (112) 98 Room Air 04/17/17 20:00 Room Air 04/17/17 19:32 36.5 78 22 122/79 (93) 99 Room Air 04/17/17 17:00 36.4 71 20 109/61 (77) 95 Room Air General Appearance: obese Head: normocephalic Eyes: PERRLA Neck: no tenderness, trachea midline Respiratory: breath sounds normal, clear to auscultation Cardiovasular: regular rate/rhythm, normal S1S2 Abdomen: no guarding, other (mild diffuse abdominal tenderess to deep palpation ) Back: other (muliple small lesions on the hands and forearms) Lower Extremities: no edema Neuro: lethargic, other (moves all extremities) Laboratory Results Last 24 Hours Test 04/17/17 16:26 04/17/17 16:29 04/17/17 17:42 04/17/17 18:44 Sodium Level 127 mmol/L Potassium Level 3.9 mmol/L Chloride Level 102 mmol/L Carbon Dioxide Level 8 mmol/L Anion Gap 17.0 mmol/L Blood Urea Nitrogen 36 mg/dl Creatinine 1.77 mg/dl Est Creatinine Clear Calc Drug Dose 41.0 ml/min Estimated GFR () 39.8 Estimated GFR (Non- 34.3 BUN/Creatinine Ratio 20.4 Random Glucose 394 mg/dl Calcium Level 8.5 mg/dl Phosphorus Level 3.8 mg/dl Magnesium Level 2.5 mg/dl Beta-Hydroxybutyric Acid 16.04 mg/dL Bedside Glucose 381 mg/dl 365 mg/dl 337 mg/dl Test 04/17/17 19:43 04/17/17 20:11 04/17/17 20:48 04/17/17 21:35 Bedside Glucose 294 mg/dl 254 mg/dl 290 mg/dl Arterial Blood pH 7.06 Arterial Blood Partial Pressure CO2 22 mmHg Arterial Blood Partial Pressure O2 120 mm/Hg Arterial Blood HCO3 6 mmol/L Arterial Blood Oxygen Saturation 97.5 % Arterial Blood Base Excess -22.7 mEq/L Arterial Blood Gas Delivery ROOM AIR Mickey Test POS Sodium Level 128 mmol/L Potassium Level 4.0 mmol/L Chloride Level 107 mmol/L Carbon Dioxide Level 7 mmol/L Anion Gap 14.0 mmol/L Blood Urea Nitrogen 40 mg/dl Creatinine 1.75 mg/dl Est Creatinine Clear Calc Drug Dose 41.5 ml/min Estimated GFR () 40.3 Estimated GFR (Non- 34.8 BUN/Creatinine Ratio 22.7 Random Glucose 287 mg/dl Calcium Level 7.8 mg/dl Phosphorus Level 2.9 mg/dl Magnesium Level 2.2 mg/dl Test 04/17/17 22:36 04/17/17 23:36 04/18/17 00:05 04/18/17 00:31 Bedside Glucose 259 mg/dl 215 mg/dl 234 mg/dl Arterial Blood pH 7.01 Arterial Blood Partial Pressure CO2 22 mmHg Arterial Blood Partial Pressure O2 110 mm/Hg Arterial Blood HCO3 5 mmol/L Arterial Blood Oxygen Saturation 96.7 % Arterial Blood Base Excess -24.4 mEq/L Arterial Blood Gas Delivery ROOM AIR Mickey Test POS Sodium Level 132 mmol/L Potassium Level 4.5 mmol/L Chloride Level 111 mmol/L Carbon Dioxide Level 5 mmol/L Anion Gap 16.0 mmol/L Blood Urea Nitrogen 42 mg/dl Creatinine 1.84 mg/dl Est Creatinine Clear Calc Drug Dose 39.5 ml/min Estimated GFR () 38.0 Estimated GFR (Non- 32.8 BUN/Creatinine Ratio 22.7 Random Glucose 234 mg/dl Osmolality 300 mOsm/kg Calcium Level 7.3 mg/dl Magnesium Level 2.3 mg/dl Ethyl Alcohol mg/dL < 3.0 mg/dl Test 04/18/17 01:35 04/18/17 02:09 04/18/17 02:23 04/18/17 02:30 Bedside Glucose 195 mg/dl 223 mg/dl Arterial Blood pH 7.06 Arterial Blood Partial Pressure CO2 22 mmHg Arterial Blood Partial Pressure O2 116 mm/Hg Arterial Blood HCO3 6 mmol/L Arterial Blood Oxygen Saturation 97.4 % Arterial Blood Base Excess -22.5 mEq/L Arterial Blood Gas Delivery ROOM AIR Mickey Test POS Salicylates Level 2.1 mg/dl Acetaminophen Level < 2 ug/ml Test 04/18/17 03:33 04/18/17 03:58 04/18/17 04:46 04/18/17 05:38 Bedside Glucose 224 mg/dl 284 mg/dl 255 mg/dl White Blood Count 13.46 K/uL Red Blood Count 4.90 M/uL Hemoglobin 12.9 g/dL Hematocrit 38.4 % Mean Corpuscular Volume 78.4 fL Mean Corpuscular Hemoglobin 26.3 pg Mean Corpuscular Hemoglobin Concent 33.6 g/dl RDW Standard Deviation 45.7 fL RDW Coefficient of Variation 16.0 % Platelet Count 288 K/uL Mean Platelet Volume 9.4 fL Nucleated RBC Absolute Count (auto) 0.02 K/uL Nucleated Red Blood Cells % 0.2 % Arterial Blood pH 7.08 Arterial Blood Partial Pressure CO2 22 mmHg Arterial Blood Partial Pressure O2 118 mm/Hg Arterial Blood HCO3 7 mmol/L Arterial Blood Oxygen Saturation 97.6 % Arterial Blood Base Excess -21.8 mEq/L Arterial Blood Gas Delivery ROOM AIR Mickey Test POS Sodium Level 135 mmol/L Potassium Level 3.6 mmol/L Chloride Level 114 mmol/L Carbon Dioxide Level 7 mmol/L Anion Gap 15.0 mmol/L Blood Urea Nitrogen 42 mg/dl Creatinine 1.92 mg/dl Est Creatinine Clear Calc Drug Dose 37.8 ml/min Estimated GFR () 36.1 Estimated GFR (Non- 31.1 BUN/Creatinine Ratio 21.7 Random Glucose 241 mg/dl Calcium Level 6.9 mg/dl Phosphorus Level 2.3 mg/dl Magnesium Level 1.9 mg/dl Ammonia 130.0 umol/L Test 04/18/17 06:36 04/18/17 07:46 04/18/17 08:01 04/18/17 08:33 Bedside Glucose 272 mg/dl 278 mg/dl 274 mg/dl Sodium Level 136 mmol/L Potassium Level 3.6 mmol/L Chloride Level 114 mmol/L Carbon Dioxide Level 6 mmol/L Anion Gap 16.0 mmol/L Blood Urea Nitrogen 44 mg/dl Creatinine 2.09 mg/dl Est Creatinine Clear Calc Drug Dose 34.7 ml/min Estimated GFR () 32.5 Estimated GFR (Non- 28.1 BUN/Creatinine Ratio 21.2 Random Glucose 306 mg/dl Calcium Level 7.1 mg/dl Beta-Hydroxybutyric Acid 1.87 mg/dL Test 04/18/17 09:47 04/18/17 10:38 04/18/17 11:29 04/18/17 12:03 Bedside Glucose 274 mg/dl 245 mg/dl 288 mg/dl Sodium Level 132 mmol/L Potassium Level 3.5 mmol/L Chloride Level 113 mmol/L Carbon Dioxide Level 5 mmol/L Anion Gap 14.0 mmol/L Blood Urea Nitrogen 42 mg/dl Creatinine 2.24 mg/dl Est Creatinine Clear Calc Drug Dose 32.4 ml/min Estimated GFR () 29.9 Estimated GFR (Non- 25.8 BUN/Creatinine Ratio 19.0 Random Glucose 255 mg/dl Lactic Acid Level < 0.4 mmol/L Calcium Level 6.7 mg/dl Phosphorus Level 2.1 mg/dl Magnesium Level 2.1 mg/dl Total Bilirubin 0.4 mg/dl Direct Bilirubin < 0.1 mg/dl Aspartate Amino Transf (AST/SGOT) 23 U/L Alanine Aminotransferase (ALT/SGPT) 24 U/L Alkaline Phosphatase 115 U/L Total Protein 6.1 gm/dl Albumin 2.7 gm/dl Test 04/18/17 12:47 04/18/17 13:37 04/18/17 14:40 04/18/17 15:25 Bedside Glucose 213 mg/dl 210 mg/dl 165 mg/dl 145 mg/dl Diagnostic Results Liver US: Several small gallstones in the region of the gallbladder neck. Normal caliber bile ducts. Fatty infiltration of liver. Assessment & Plan Problems: Diabetic ketoacidosis Acute kidney injury Toxic-metabolic encephalopathy Hyperammonemia Plan: TRANSPORTATION ATTENDANT: Toxic-metabolic encephalopathy Treat the underlying problems first Hyperammonemia may play a role, but it also represents a manifestation of the dehydration rather than a manifestation of liver cirrhosis CT brain reviewed CVS: Continue iv fluids Propranolol if BP allows Resp: Maintaining her airway well so far CXR reviewed Renal: Continue IV fluids/ On a mix of Normosol and D5W (D5-Normosol not available) Had OK in the past in similar setting Monitor sodium level. Initially myriam, but now came down with hypotonic fluids. Fluids also aimed at lowering the chloride level, having a mix of gap and non= gap (hyperchloremic) acidosis Endo: Continue insulin drip Hourly fingersticks GI: NGT inserted NPO for now Has significant fatty liver infiltration No evidence of cirrhosis No need for immediate treatment of hyperammonemia ID: On empiric vancomycin for h/o Staph bacteremia F/u cultures DVT prophylaxis: SC heparin Critical care time spent with the patient, family, discussing with consultants, reviewing chart, greater than 40 minutes DVT prophylaxis
[2017-04-18 17:03] LABS: CALCIUM 7.1 mg/dl (8.5-10.1); CREATININE 2.34 mg/dl (0.60-1.20); PHOSPHORUS 2.1 mg/dl (2.5-4.9); POTASSIUM 3.5 mmol/L (3.5-5.1)
[2017-04-18] MEDS: VANCOMYCIN INJ 1,250 MG in SODIUM CHLORIDE 0.9% 250ML 250 ML IV SCH (17:45)
[2017-04-18] MEDS ORDERED: POTASSIUM PHOS 3 MMOL/1 ML INFUSION IV STA (18:52)
[2017-04-18] MEDS ORDERED: POTASSIUM PHOSPHATE INJ 15 MMOL in SODIUM CHLORIDE 0.9% 250ML 250 ML IV ONE (19:10)
[2017-04-18] MEDS ORDERED: TOPIRAMATE 25 MG TAB PO SCH (21:00)
[2017-04-18] MEDS: PREGABALIN 50 MG CAP PO SCH (21:00)
[2017-04-18] MEDS: DULOXETINE HCL 60 MG CAP PO SCH (21:00)
[2017-04-18 22:33] LABS: POTASSIUM 3.8 mmol/L (3.5-5.1)
[2017-04-18 22:34] LABS: CALCIUM 7.5 mg/dl (8.5-10.1); CREATININE 2.37 mg/dl (0.60-1.20)
[2017-04-18 22:35] LABS: PHOSPHORUS 3.1 mg/dl (2.5-4.9)
[2017-04-19] VITALS (31 sets, daily range): BP systolic 92–181; BP diastolic 54–119; PULSE 81–112; TEMP 35.9–37.7; O2SAT 98–100; BMI 34.3
[2017-04-19 01:40] LABS: CREATININE 2.44 mg/dl (0.60-1.20); PHOSPHORUS 3.7 mg/dl (2.5-4.9); POTASSIUM 4.4 mmol/L (3.5-5.1)
[2017-04-19 04:33] LABS: HEMATOCRIT 40.4 % (37-47); HEMOGLOBIN 13.3 g/dL (12.0-16.0); MEAN CELL VOLUME 78.6 fL (80-100); MEAN CORPUSCULAR HEMOGLOBIN 25.9 pg (25-34); MEAN CORPUSCULAR HGB CONC 32.9 g/dl (32-36); MEAN PLATELET VOLUME 9.6 fL (7.4-10.4); NUCLEATED RED BLOOD CELL ABS 0.28 K/uL (0-0); PLATELET COUNT 349 K/uL (130-400); RED CELL DISTRIBUTION WIDTH CV 16.6 % (11.5-14.5); RED CELL DISTRIBUTION WIDTH SD 47.1 fL (36.4-46.3); WHITE BLOOD COUNT 19.31 K/uL (4.8-10.8)
[2017-04-19 04:56] LABS: CALCIUM 7.2 mg/dl (8.5-10.1); CREATININE 2.54 mg/dl (0.60-1.20); PHOSPHORUS 3.8 mg/dl (2.5-4.9)
[2017-04-19 04:57] LABS: BASO % 0.5 %; EOS % 0.7 %; EOS ABS # 0.13 K/uL (0-0.5); IG# 1.62 K/uL (0.00-0.02); LYMPH % 4.9 %; LYMPH ABS # 0.95 K/uL (1.2-3.4); MONO ABS # 1.35 K/uL (0.11-0.59); NEUT % 78.5 %; NEUT ABS # 15.16 K/uL (1.4-6.5)
[2017-04-19 05:27] LABS: POTASSIUM 3.6 mmol/L (3.5-5.1)
[2017-04-19] MEDS ORDERED: VANCOMYCIN TROUGH ONE (05:30)
[2017-04-19] MEDS ORDERED: RAPID SEQUENCE INDUCTION BAG ONE (05:50)
[2017-04-19] MEDS ORDERED: SODIUM BICARB 8.4% INJ 50 MEQ/50 ML SYR IV STA (05:56)
[2017-04-19] MEDS ORDERED: SODIUM BICARB 8.4% INJ 50 MEQ/50 ML SYR IV ONE (05:59)
[2017-04-19] MEDS ORDERED: SODIUM BICARBONATE 8.4% INJ 150 MEQ in DEXTROSE 5% 1000ML 1,000 ML IV SCH (06:00)
[2017-04-19] MEDS ORDERED: PROPOFOL IV EMULSION 10 MG/ML 100 ML VIAL IV ONE (06:23)
--- NOTE | 2017-04-19 06:40 | DIAGNOSTIC IMAGING REPORT ---
CHEST ONE VIEW PORTABLE CLINICAL HISTORY: change in respiratory rate dyspnea COMPARISON STUDY: 04/17/2017 FINDINGS: Feeding tube placed in the gastric fundus. Mild stable cardiomegaly. Prominent pulmonary vasculature. IMPRESSION: Prominent pulmonary vasculature. No focal infiltrate. Feeding tube placed in the gastric fundus. The above report was generated using voice recognition software. It may contain grammatical, syntax or spelling errors. Electronically signed by: Matias Ruth M.D. 04/19/2017 6:39 AM Dictated Date/Time: 04/19/2017 6:38 AM
--- NOTE | 2017-04-19 06:53 | Procedure Note ---
Procedure Note Procedure Date Apr 19, 2017. Procedure Description Procedure Name: Endotracheal intubation Procedure time out: patient ID confirmed, correct procedure Consent obtained: emergent consent implied Time of procedure: 06:10 Performed by: attending Indications: therapeutic Contraindications: none Description: Sedation provided with Etomidate Neuromuscular blockade with succinylcholine Using the GlideScope, I intubated the patient with 7.5 ET tube. Position confirmed by auscultation and color capnometry. Will follow up CXR Started hyperventilating right away to help compensate for the severe metabolic acidosis Complications: none Patient tolerated procedure: well Post-procedure vital signs: reviewed and stable
[2017-04-19] MEDS ORDERED: PIPERACILL/TAZOBAC IV 3.375 GM in DEXTROSE 5% 100ML 100 ML IV ONE (07:15)
[2017-04-19] MEDS ORDERED: PIPERACILL/TAZOBAC CONSULT ACTIVE PRN (07:15)
--- NOTE | 2017-04-19 07:28 | DIAGNOSTIC IMAGING REPORT ---
CHEST ONE VIEW PORTABLE HISTORY: S/p intubation COMPARISON: Chest 04/19/2017. FINDINGS: The endotracheal tube terminates 3.3 cm from the yumi. Nasogastric tube terminates in the fundus of the stomach, unchanged. No pneumothorax. No pleural effusions. The heart remains mildly enlarged. Mild pulmonary vascular congestion has improved. IMPRESSION: Satisfactory support line placement. Mild pulmonary vascular congestion has improved. Electronically signed by: Bennie Sung M.D. 04/19/2017 7:26 AM Dictated Date/Time: 04/19/2017 7:25 AM
[2017-04-19 07:31] LABS: PTT PATIENT 23.7 SECONDS (21.0-31.0)
[2017-04-19 07:47] LABS: CALCIUM 7.2 mg/dl (8.5-10.1); CREATININE 2.49 mg/dl (0.60-1.20); POTASSIUM 3.7 mmol/L (3.5-5.1)
[2017-04-19] MEDS: INSULIN ASPART 100 UNITS/ML 3 ML PEN SC SCH ×4 (08:00→21:00)
--- NOTE | 2017-04-19 08:28 | Procedure Note ---
Procedure Note Procedure Date Apr 19, 2017. (Jesus Kemp PA-C) Central Line Procedure time out: side/site verified, patient ID confirmed, sterile procedure used Consent obtained: emergent consent implied Time of procedure: 06:45 Performed by: physician adult basic education teacher Indications: poor venous access, long-term access Prep: chlorhexadine prep, sterile drape, sterile procedures used Anesthesia: local injection, lidocaine 1% without epi Volume anesthetic (ml's): 4 Central line lumen: RIGHT Femoral HD Cath Central line location: femoral (R) Additional details: percutaneous placement, ultrasound guidance, Selinger technique used, line sutured, good blood return CXR: appropriate position Complications: none Patient tolerated procedure: well Post-procedure vital signs: reviewed and stable Comments: Procedure: Central Line Placement Attending: Dr. Vences APC: Jesus Kemp PA-C Indication: Central Drug Administration, Poor Venous Access, Multiple Lab Draws Necessary, etc. Anesthesia: Lidocaine 1% Emergent Consent was Implied per my attending physician and per the patient's declining medical condition. A time-out was completed verifying correct patient, procedure, site, positioning , and implants(s) or special equipment if applicable. Patient's RIGHT Groin was cleansed and draped in the typical sterile fashion using Chloraprep. The RIGHT Femoral Vein and RIGHT Femoral Artery were identified using ultrasound. The superficial tissue was anesthetized using 4.0 cc of 1% lidocaine without epinephrine under direct visualization with the ultrasound. After adequate anesthetization was achieved, the RIGHT Femoral vein was cannulated under direct ultrasound guidance using an introducer needle on a syringe. Good venous blood return was maintained prior to removal of syringe from introducer needle. Using Seldinger Technique, a guide wire was advanced through the introducer needle without resistance. The introducer needle was removed. A small incision was made in penetrating fashion at the guide wire insertion site utilizing an 11 blade scalpel. The dilator was advanced to the vessel without resistance. The second dilator was advanced to the vessel without resistance. The dilator was exchanged for the double lumen hemodialysis catheter which was advanced into the vessel without resistance. The guide wire was removed intact from the catheter without issue. Claves were placed on each catheter tip with confirmation of good blood flow from each lumen. The catheter was placed to the hub and sutured in place. BioPatch was applied to the catheter and a sterile Tegaderm dressing was applied over the catheter with careful attention to sterility. Patient tolerated procedure well. No immediate complications were met. Images obtained are saved for permanent record Procedural Ultrasound Guidance: Procedure Date: 04/19/2017 Indication: Need for emergent hemodialysis, poor access. Attending: Dr. Vences APC: Jesus Kemp PA-C Artery AND Vein visualized: YES Compressible Vein: YES Guidewire or Short Catheter seen in vein prior to dilation: YES Line confirmed in Vein with ultrasound: YES Images obtained are saved for permanent record. (Jesus Kemp PA-C) Comments: I was present for the the entire procedure an I assisted Jesus Vences MD (Julio Cesar Vences .MD)
[2017-04-19] MEDS: HEPARIN SOD 5000 UNIT/0.5 ML CARP SQ SCH ×3 (08:30→21:39)
[2017-04-19] MEDS: FAMOTIDINE IV INJ 20 MG in SYRINGE 3 ML IV SCH ×2 (08:32→17:38)
[2017-04-19] MEDS: PROPRANOLOL HCL 60 MG LA CAP PO SCH ×2 (08:33→09:00)
[2017-04-19] MEDS: AMLODIPINE BESYLATE 5 MG TAB PO SCH ×2 (08:33→14:53)
--- NOTE | 2017-04-19 08:36 | Procedure Note ---
Procedure Note Procedure Date Apr 19, 2017. (Jesus Kemp PA-C) Procedure Description Procedure Name: RIGHT Radial A-Line Procedure time out: side/site verified, patient ID confirmed, correct procedure Consent obtained: emergent consent implied Time of procedure: 07:30 Performed by: physician contract analyst Indications: diagnostic, therapeutic Contraindications: none Description: Procedure: Arterial Line Placement Attending: Dr. Vences APC: Jesus Kemp PA-C Indication: Monitoring on Pressors Anesthesia: Lidocaine 1% Emergent Consent was Implied per worsening medical condition and need for continued close monitoring. A time-out was completed verifying correct patient, procedure, site, positioning , and implant(s) or special equipment if applicable. Mickey's test was performed to ensure adequate perfusion. Patient's RIGHT wrist was prepped and draped in the usual sterile fashion. Ultrasound guidance was used to aid needle placement. A 20g Arrow arterial line was introduced into the RIGHT Radial artery. Flash of arterial blood was viewed. Attempts at threading the wire were unsuccessful. The needle was observed in the vessel per US imaging. The procedure was aborted. The patient tolerated the procedure well. Blood Loss: Minimal Complications: None Procedural Ultrasound Guidance: Procedure Date: 04/19/2017 Indication: Need for close monitoring while on vasoactive medications, need for frequent ABGs Attending: Dr. Vences APC: Jesus Kemp PA-C Artery Identified: YES Line confirmed in Artery with ultrasound: YES Complications: NONE Patient tolerated procedure: WELL Complications: none Patient tolerated procedure: well Post-procedure vital signs: reviewed and stable (Jesus Kemp PA-C) Comments: I was present for the the entire procedure an I assisted Jesus Vences MD (Julio Cesar Vences MD)
[2017-04-19] MEDS ORDERED: POTASSIUM CHLR 20 MEQ / WTR 20 MEQ in PREMIXED WATER 100 ML IV STA (08:45)
--- NOTE | 2017-04-19 08:45 | Nephrology Progress Note ---
Nephrology Progress Note Date of Service: Apr 19, 2017. Subjective 42 yo female with signicant dka who continued to have recalcitrant acidosis despite iv fluids and insulin drip and eventually tired out and was intubated. currently on d5w with 150meq of bicarb. urinating well with damico catheter. Objective Date Time Temp Pulse Resp B/P (MAP) Pulse Ox O2 Delivery O2 Flow Rate FiO2 04/19/17 08:00 50 04/19/17 07:15 50 04/19/17 07:01 96 25 119/67 (84) 100 04/19/17 06:42 104 27 143/97 (112) 100 04/19/17 06:37 100 04/19/17 06:03 109 24 100 Nasal Cannula 2.0 04/19/17 05:01 112 23 98 Nasal Cannula 2.0 04/19/17 04:01 35.9 22 99 Nasal Cannula 2.0 04/19/17 04:00 100 Nasal Cannula 2.0 04/19/17 03:01 105 24 99 Room Air 04/19/17 02:01 102 24 169/106 (127) 100 Nasal Cannula 2.0 04/19/17 01:01 100 19 181/105 (130) 100 Nasal Cannula 2.0 04/19/17 00:01 36.8 97 23 171/119 (136) 100 Nasal Cannula 2.0 04/18/17 23:59 100 Nasal Cannula 2.0 04/18/17 23:01 98 13 150/118 (129) 100 Nasal Cannula 2.0 04/18/17 22:01 98 22 203/111 (141) 100 Nasal Cannula 2.0 04/18/17 21:01 99 23 171/95 (120) 100 Nasal Cannula 2.0 04/18/17 20:01 37.0 95 21 148/76 (100) 100 Nasal Cannula 2.0 04/18/17 20:00 100 Nasal Cannula 2.0 04/18/17 18:00 97 26 172/119 (136) 100 Nasal Cannula 4.0 04/18/17 16:00 36.8 87 20 147/86 (95) 100 04/18/17 16:00 36.8 88 26 166/118 (134) 100 Nasal Cannula 4.0 04/18/17 16:00 95 Nasal Cannula 4.0 04/18/17 15:00 87 20 100 04/18/17 15:00 87 20 100 04/18/17 14:02 85 20 147/86 (106) 100 04/18/17 14:02 85 20 147/86 (95) 100 04/18/17 14:00 86 15 100 04/18/17 14:00 86 15 100 04/18/17 13:02 87 21 162/91 (114) 100 04/18/17 13:02 87 21 162/91 (127) 100 04/18/17 13:02 87 21 162/91 (127) 100 04/18/17 13:00 86 20 100 04/18/17 13:00 86 20 100 04/18/17 13:00 86 20 100 04/18/17 12:52 86 18 149/115 (128) 100 04/18/17 12:52 86 18 149/115 (126) 100 04/18/17 12:30 87 16 100 04/18/17 12:03 85 14 /54 (69) 100 04/18/17 12:03 85 14 /54 (36) 100 04/18/17 12:00 86 15 100 04/18/17 12:00 94 Nasal Cannula 4.0 04/18/17 12:00 86 15 100 04/18/17 11:30 85 18 100 04/18/17 11:02 85 16 135/94 (103) 100 04/18/17 11:00 85 16 100 04/18/17 10:30 86 15 99 Physical Exam: General-sedated Eyes-no scleral icterus ENT-mmm Neck-supple Lungs-cta anteriorly, intubated Heart-rrr Abdomen-bs+ s/nt/nd Extremities-no c/c/e Neuro-sedated Current Inpatient Medications Medications (Trade) Dose Ordered Sig/Yudy Route Start Time Stop Time Status Last Admin Dose Admin Glucose (Glucose 40% Gel) UD PRN PO 04/17/17 15:00 05/17/17 14:59 Glucose (Glucose Chew Tab) 1 tabs UD PRN PO 04/17/17 15:00 05/17/17 14:59 Dextrose (Dextrose 50% 50ML Syringe) 50 ml UD PRN IV 04/17/17 15:00 05/17/17 14:59 Glucagon (Glucagon Inj) 1 mg UD PRN SQ 04/17/17 15:00 05/17/17 14:59 Insulin Aspart (novoLOG ASPART) SLIDING SCALE PCHS SC 04/17/17 17:30 05/17/17 18:59 Miscellaneous Information (Consult Glycemic Management Pharmacy) 1 ea UD PRN N/A 04/17/17 15:45 05/17/17 15:44 Heparin Sodium (Porcine) (Heparin Sq 5000 Unit/0.5ml) 5,000 unit Q8 SQ 04/17/17 22:00 05/17/17 21:59 04/18/17 22:18 5,000 UNIT Acetaminophen (Tylenol Tab) 650 mg Q4H PRN PO 04/17/17 16:00 05/17/17 15:59 Ondansetron HCl (Zofran Inj) 4 mg Q6H PRN IV 04/17/17 16:00 05/17/17 15:59 Albuterol (Ventolin Hfa Inhaler) 2 puffs Q4H PRN INH 04/17/17 16:15 05/17/17 16:14 Amlodipine Besylate (Norvasc Tab) 5 mg QAM PO 04/18/17 09:00 05/18/17 08:59 Atorvastatin Calcium (Lipitor Tab) 10 mg DAILY PO 04/18/17 09:00 05/18/17 08:59 Future Hold Duloxetine HCl (Cymbalta Cap) 60 mg QPM PO 04/17/17 21:00 05/17/17 20:59 04/17/17 20:52 60 MG Pregabalin (Lyrica Cap) 50 mg QPM PO 04/17/17 21:00 05/17/17 20:59 04/17/17 20:55 50 MG Topiramate (Topamax Tab) 75 mg QPM PO 04/18/17 21:00 05/18/17 20:59 Propranolol HCl (Inderal La Cap) 120 mg BID PO 04/17/17 21:00 05/17/17 20:59 04/17/17 20:52 120 MG Vancomycin HCl (Consult) 1 ea PRN N/A 04/17/17 16:27 05/17/17 16:26 Famotidine 20 mg/ Syringe 5 ml @ 2.5 mls/min Q12H IV 04/17/17 18:00 05/17/17 17:59 04/18/17 17:44 2.5 MLS/MIN Insulin Human Regular 250 units/ Sodium Chloride 252.5 ml @ 0 mls/hr Q24H IV 04/18/17 15:00 05/18/17 14:59 Vancomycin HCl 1250 mg/Sodium Chloride 275 ml @ 125 mls/hr Q28H IV 04/18/17 18:00 04/28/17 17:59 04/18/17 17:45 125 MLS/HR Sodium Bicarbonate 150 meq/Dextrose 1,150 ml @ 150 mls/hr Q7H40M IV 04/19/17 06:00 05/19/17 05:59 04/19/17 06:41 150 MLS/HR Piperacillin Sod/ Tazobactam Sod 3.375 gm/Dextrose 115 ml @ 28.75 mls/ hr Q8H IV 04/19/17 12:00 04/29/17 11:59 Piperacillin Sod/ Tazobactam Sod (Consult) 1 ea UD PRN N/A 04/19/17 07:15 05/19/17 07:14 Fentanyl Citrate (Fentanyl Inj) 50 mcg Q1H PRN IV 04/19/17 08:30 05/03/17 08:29 Propofol (Diprivan Iv Emulsion 100ml Vial) 1 dose UD PRN IV 04/19/17 08:16 04/22/17 08:15 Last 24 Hours Test 04/18/17 09:47 04/18/17 10:38 04/18/17 11:29 04/18/17 12:03 Bedside Glucose 274 mg/dl 245 mg/dl 288 mg/dl Sodium Level 132 mmol/L Potassium Level 3.5 mmol/L Chloride Level 113 mmol/L Carbon Dioxide Level 5 mmol/L Anion Gap 14.0 mmol/L Blood Urea Nitrogen 42 mg/dl Creatinine 2.24 mg/dl Est Creatinine Clear Calc Drug Dose 32.4 ml/min Estimated GFR () 29.9 Estimated GFR (Non- 25.8 BUN/Creatinine Ratio 19.0 Random Glucose 255 mg/dl Lactic Acid Level < 0.1 mmol/L Calcium Level 6.7 mg/dl Phosphorus Level 2.1 mg/dl Magnesium Level 2.1 mg/dl Total Bilirubin 0.4 mg/dl Direct Bilirubin < 0.1 mg/dl Aspartate Amino Transf (AST/SGOT) 23 U/L Alanine Aminotransferase (ALT/SGPT) 24 U/L Alkaline Phosphatase 115 U/L Total Protein 6.1 gm/dl Albumin 2.7 gm/dl Test 04/18/17 12:47 04/18/17 13:37 04/18/17 14:40 04/18/17 15:25 Bedside Glucose 213 mg/dl 210 mg/dl 165 mg/dl 145 mg/dl Test 04/18/17 16:19 04/18/17 16:37 04/18/17 17:28 04/18/17 18:27 Sodium Level 134 mmol/L Potassium Level 3.5 mmol/L Chloride Level 113 mmol/L Carbon Dioxide Level 7 mmol/L Anion Gap 16.0 mmol/L Blood Urea Nitrogen 44 mg/dl Creatinine 2.34 mg/dl Est Creatinine Clear Calc Drug Dose 31.0 ml/min Estimated GFR () 28.4 Estimated GFR (Non- 24.5 BUN/Creatinine Ratio 18.7 Random Glucose 160 mg/dl Calcium Level 7.1 mg/dl Phosphorus Level 2.1 mg/dl Magnesium Level 2.2 mg/dl Bedside Glucose 123 mg/dl 122 mg/dl 145 mg/dl Test 04/18/17 19:31 04/18/17 20:28 04/18/17 21:25 04/18/17 21:33 Bedside Glucose 142 mg/dl 143 mg/dl 151 mg/dl Sodium Level 134 mmol/L Potassium Level 3.8 mmol/L Chloride Level 112 mmol/L Carbon Dioxide Level 6 mmol/L Anion Gap 18.0 mmol/L Blood Urea Nitrogen 46 mg/dl Creatinine 2.37 mg/dl Est Creatinine Clear Calc Drug Dose 30.6 ml/min Estimated GFR () 28.0 Estimated GFR (Non- 24.1 BUN/Creatinine Ratio 19.2 Random Glucose 150 mg/dl Calcium Level 7.5 mg/dl Phosphorus Level 3.1 mg/dl Magnesium Level 2.1 mg/dl Procalcitonin 15.90 ng/ml Test 04/18/17 22:29 04/18/17 23:38 04/19/17 00:39 04/19/17 00:45 Bedside Glucose 142 mg/dl 137 mg/dl 131 mg/dl Sodium Level 135 mmol/L Potassium Level 4.4 mmol/L Chloride Level 116 mmol/L Carbon Dioxide Level 6 mmol/L Anion Gap 13.0 mmol/L Blood Urea Nitrogen 45 mg/dl Creatinine 2.44 mg/dl Est Creatinine Clear Calc Drug Dose 29.8 ml/min Estimated GFR () 27.0 Estimated GFR (Non- 23.3 BUN/Creatinine Ratio 18.4 Random Glucose 147 mg/dl Calcium Level 7.0 mg/dl Phosphorus Level 3.7 mg/dl Magnesium Level 2.0 mg/dl Test 04/19/17 01:27 04/19/17 02:30 04/19/17 03:27 04/19/17 04:11 Bedside Glucose 127 mg/dl 165 mg/dl 175 mg/dl White Blood Count 19.31 K/uL Red Blood Count 5.14 M/uL Hemoglobin 13.3 g/dL Hematocrit 40.4 % Mean Corpuscular Volume 78.6 fL Mean Corpuscular Hemoglobin 25.9 pg Mean Corpuscular Hemoglobin Concent 32.9 g/dl Platelet Count 349 K/uL Mean Platelet Volume 9.6 fL Neutrophils (%) (Auto) 78.5 % Lymphocytes (%) (Auto) 4.9 % Monocytes (%) (Auto) 7.0 % Eosinophils (%) (Auto) 0.7 % Basophils (%) (Auto) 0.5 % Neutrophils # (Auto) 15.16 K/uL Lymphocytes # (Auto) 0.95 K/uL Monocytes # (Auto) 1.35 K/uL Eosinophils # (Auto) 0.13 K/uL Basophils # (Auto) 0.10 K/uL RDW Standard Deviation 47.1 fL RDW Coefficient of Variation 16.6 % Immature Granulocyte % (Auto) 8.4 % Immature Granulocyte # (Auto) 1.62 K/uL Nucleated RBC Absolute Count (auto) 0.28 K/uL Nucleated Red Blood Cells % 1.5 % Sodium Level 135 mmol/L Potassium Level 3.6 mmol/L Chloride Level 113 mmol/L Carbon Dioxide Level 8 mmol/L Anion Gap 14.0 mmol/L Blood Urea Nitrogen 47 mg/dl Creatinine 2.54 mg/dl Est Creatinine Clear Calc Drug Dose 28.6 ml/min Estimated GFR () 25.7 Estimated GFR (Non- 22.2 BUN/Creatinine Ratio 18.3 Random Glucose 200 mg/dl Calcium Level 7.2 mg/dl Phosphorus Level 3.8 mg/dl Magnesium Level 2.1 mg/dl Ammonia 136.0 umol/L Test 04/19/17 04:24 04/19/17 05:32 04/19/17 06:49 04/19/17 06:57 Bedside Glucose 202 mg/dl 198 mg/dl 223 mg/dl Test 04/19/17 07:13 04/19/17 08:00 04/19/17 08:04 Prothrombin Time 10.0 SECONDS Prothromb Time International Ratio 1.0 Activated Partial Thromboplast Time 23.7 SECONDS Partial Thromboplastin Ratio 0.9 Sodium Level 136 mmol/L Potassium Level 3.7 mmol/L Chloride Level 114 mmol/L Carbon Dioxide Level 6 mmol/L Anion Gap 16.0 mmol/L Blood Urea Nitrogen 47 mg/dl Creatinine 2.49 mg/dl Est Creatinine Clear Calc Drug Dose 29.2 ml/min Estimated GFR () 26.3 Estimated GFR (Non- 22.7 BUN/Creatinine Ratio 18.7 Random Glucose 195 mg/dl Lactic Acid Level < 0.1 mmol/L Calcium Level 7.2 mg/dl Phosphorus Level 4.0 mg/dl Magnesium Level 2.2 mg/dl Total Bilirubin 0.4 mg/dl Aspartate Amino Transf (AST/SGOT) 37 U/L Alanine Aminotransferase (ALT/SGPT) 28 U/L Alkaline Phosphatase 132 U/L Ammonia 38.0 umol/L Total Creatine Kinase 84 U/L Total Protein 7.0 gm/dl Albumin 3.0 gm/dl Globulin 4.0 gm/dl Albumin/Globulin Ratio 0.7 Amylase Level 105 U/L Lipase 649 U/L Procalcitonin 9.26 ng/ml Bedside Glucose 186 mg/dl Date/Time Source Procedure Growth Status 04/18/17 10:15 Nasal MRSA DNA Surveillance Screen - Final Specimen Negative for MRSA by DNA Probe Complete Assessment & Plan significant acidosis-recalcitrant to treatment-will do dialysis to help correct the acidosis. will give a three hour treatment on a 4 k bath and no fluid removal. despite 4 k bath, may still need additional potassium given after dialysis. will also give calcium gluconate since calcium likely to drop as well with the bicarb administration.
[2017-04-19] MEDS: FENTANYL CITRATE INJ 50 MCG/1 ML 2 ML VIAL IV PRN ×3 (09:02→19:27)
[2017-04-19] MEDS ORDERED: PROPRANOLOL HCL 20 MG TAB PO SCH (09:30)
[2017-04-19] MEDS: PROPRANOLOL HCL 80 MG TAB PO SCH ×2 (09:37→21:38)
[2017-04-19] MEDS ORDERED: CALCIUM GLUCONATE 10% 2,000 MG in SODIUM CHLORIDE 0.9% 50ML 50 ML IV SCH (10:00)
--- NOTE | 2017-04-19 10:02 | Procedure Note ---
Procedure Note Procedure Date Apr 19, 2017. Procedure Description Procedure Name: Left femoral arterial line Procedure time out: side/site verified, patient ID confirmed, correct procedure Consent obtained: emergent consent implied Time of procedure: 09:30 Performed by: attending Indications: diagnostic Contraindications: none Description: The skin over the left inguinal area was cleaned with chlorhexidine solution. The patient was then covered with a sterile drape. Under sterile conditions, the left femoral artery was identified using ultrasound. The skin over the artery was infiltrated with 1% lidocaine. Under ultrasound guidance, the left artery was accessed with the needle, then a guide wire was passed with ease. The needle was then exchanged to a 12 cm a- line catheter. The catheter was suture to skin and was connected to the monitor, showing good arterial waveform. Biopatch and dressing applied Complications: none Patient tolerated procedure: well Post-procedure vital signs: reviewed and stable
[2017-04-19] MEDS: POTASSIUM CHLR 10MEQ / WTR IV SCH ×2 (10:09→12:22)
[2017-04-19] MEDS: PROPOFOL IV EMULSION 10 MG/ML 100 ML VIAL IV PRN ×4 (10:17→21:46)
[2017-04-19 10:41] LABS: PHOSPHORUS 1.9 mg/dl (2.5-4.9)
[2017-04-19] MEDS ORDERED: PIPERACILL/TAZOBAC IV 3.375 GM in DEXTROSE 5% 100ML 100 ML IV SCH (12:00)
--- NOTE | 2017-04-19 14:38 | Critical Care Progress Note ---
Critical Care Progress Note Date of Service Apr 19, 2017. ICU Day ICU Day Number: [address] Vences Subjective The patient deteriorated this morning, became less responsive, more acidotic, required emergent intubation. Right femoral HD catheter inserted, underwent a session of HD this AM. Did not require pressor support Objective General: Obese female, intubated, sedated Heent: NC/AT Lungs: coarse breath sounds b/l CVS:S1S2 reg Abd: obese, soft Ext: trace pedal edema. B/l axillary old scarred lesions INSOLE AND OUTSOLE SPLITTER: Sedated, reaching for the tubes when sedation is light Assessment & Plan Problems: Diabetic ketoacidosis Severe sepsis with end-organ dysfunction Mixed gap-acidosis and non-gap acidosis Respiratory failure, s/p intubation Acute kidney injury, started on HD Plan: INSOLE AND OUTSOLE SPLITTER: Sedation with propofol and prn fentanyl. Daily sedation vacation Pulmonary: The patient had significant compensatory hyperventilation, but eventually she was not able to maintain very low pCO2, resulting in worsening acidemia, pH below 7.0 Continue vent support Oxygenating very well Maintain hyperventilation CVS: Continue IV fluids No need for pressor support Renal/metabolic: HD today for acidosis On bicarb drip The acidosis at this point seems to be driven mainly by renal failure rather than DKA. Keep Cheng catheter Ammonia level improving Endo: Probably out of DKA, the beta-hydroxybutyric acid is normal now. However, will continue the insulin drip for now ID: Likely bacterial infection, unclear source. Procalcitonin quite elevated. Continue Vancomycin, Cefepime escalated to Zosyn Follow up cultures GI: NPO for now Has significant hepatic steatosis Ammonia level decreasing now with hydration DVT prophylaxis: SC heparin Critical care time spent with patient, , reviewing chart, discussing with consultants, excluding procedures, greater than 60 minutes Consults & Procedures Consultants: Nephrology - [facility] Procedures: Intubation 04/19/17 Right femoral dual-lumen HD catheter - 04/19/17 Left femoral artery a-line - 04/19/17 Data Medications: Current Inpatient Medications Medications (Trade) Dose Ordered Sig/Yudy Route Start Time Stop Time Status Last Admin Dose Admin Glucose (Glucose 40% Gel) UD PRN PO 04/17/17 15:00 05/17/17 14:59 Glucose (Glucose Chew Tab) 1 tabs UD PRN PO 04/17/17 15:00 05/17/17 14:59 Dextrose (Dextrose 50% 50ML Syringe) 50 ml UD PRN IV 04/17/17 15:00 05/17/17 14:59 Glucagon (Glucagon Inj) 1 mg UD PRN SQ 04/17/17 15:00 05/17/17 14:59 Insulin Aspart (novoLOG ASPART) SLIDING SCALE PCHS SC 04/17/17 17:30 05/17/17 18:59 Miscellaneous Information (Consult Glycemic Management Pharmacy) 1 ea UD PRN N/A 04/17/17 15:45 05/17/17 15:44 Heparin Sodium (Porcine) (Heparin Sq 5000 Unit/0.5ml) 5,000 unit Q8 SQ 04/17/17 22:00 05/17/17 21:59 04/19/17 08:30 5,000 UNIT Acetaminophen (Tylenol Tab) 650 mg Q4H PRN PO 04/17/17 16:00 05/17/17 15:59 Ondansetron HCl (Zofran Inj) 4 mg Q6H PRN IV 04/17/17 16:00 05/17/17 15:59 Albuterol (Ventolin Hfa Inhaler) 2 puffs Q4H PRN INH 04/17/17 16:15 05/17/17 16:14 Amlodipine Besylate (Norvasc Tab) 5 mg QAM PO 04/18/17 09:00 05/18/17 08:59 Atorvastatin Calcium (Lipitor Tab) 10 mg DAILY PO 04/18/17 09:00 05/18/17 08:59 Future Hold Duloxetine HCl (Cymbalta Cap) 60 mg QPM PO 04/17/17 21:00 05/17/17 20:59 Future Hold 04/17/17 20:52 60 MG Pregabalin (Lyrica Cap) 50 mg QPM PO 04/17/17 21:00 05/17/17 20:59 Future Hold 04/17/17 20:55 50 MG Topiramate (Topamax Tab) 75 mg QPM PO 04/18/17 21:00 05/18/17 20:59 Future Hold Vancomycin HCl (Consult) 1 ea UD PRN N/A 04/17/17 16:27 05/17/17 16:26 Famotidine 20 mg/ Syringe 5 ml @ 2.5 mls/min Q12H IV 1/8/18 18:00 05/17/17 17:59 04/19/17 08:32 2.5 MLS/MIN Insulin Human Regular 250 units/ Sodium Chloride 252.5 ml @ 0 mls/hr Q24H IV 04/18/17 15:00 05/18/17 14:59 Vancomycin HCl 1250 mg/Sodium Chloride 275 ml @ 125 mls/hr Q28H IV 04/18/17 18:00 04/28/17 17:59 04/18/17 17:45 125 MLS/HR Sodium Bicarbonate 150 meq/Dextrose 1,150 ml @ 150 mls/hr Q7H40M IV 04/19/17 06:00 05/19/17 05:59 04/19/17 06:41 150 MLS/HR Piperacillin Sod/ Tazobactam Sod 3.375 gm/Dextrose 115 ml @ 28.75 mls/ hr Q8H IV 04/19/17 12:00 04/29/17 11:59 04/19/17 12:22 28.75 MLS/HR Piperacillin Sod/ Tazobactam Sod (Consult) 1 ea UD PRN N/A 04/19/17 07:15 05/19/17 07:14 Fentanyl Citrate (Fentanyl Inj) 50 mcg Q1H PRN IV 04/19/17 08:30 05/03/17 08:29 04/19/17 12:46 50 MCG Propofol (Diprivan Iv Emulsion 100ml Vial) 1 dose UD PRN IV 04/19/17 08:16 04/22/17 08:15 04/19/17 10:17 1 DOSE Calcium Gluconate 2000 mg/Sodium Chloride 70 ml @ 240 mls/hr TODAY@1000 IV 04/19/17 10:00 04/19/17 15:00 04/19/17 10:09 240 MLS/HR Propranolol HCl (Inderal Tab) 120 mg BID PO 04/19/17 09:37 05/19/17 09:36 Vital Signs: Date Time Temp Pulse Resp B/P (MAP) Pulse Ox O2 Delivery O2 Flow Rate FiO2 04/19/17 13:00 103 124/54 04/19/17 12:45 106 108/61 04/19/17 12:30 104 152/63 04/19/17 12:15 105 141/64 04/19/17 12:00 105 112/61 04/19/17 12:00 100 Mechanical Ventilator 40 04/19/17 12:00 37.0 105 27 152/63 (92) 100 Mechanical Ventilator 40 04/19/17 11:45 102 115/60 04/19/17 11:30 101 92/55 04/19/17 11:20 40 04/19/17 11:15 100 129/66 04/19/17 11:00 100 116/60 04/19/17 10:45 97 133/61 04/19/17 10:30 96 107/58 04/19/17 10:15 94 130/70 04/19/17 10:00 95 23 130/70 (90) 100 Mechanical Ventilator 50 04/19/17 10:00 36.5 90 133/66 (88) 04/19/17 08:00 36.4 91 25 167/104 (125) 100 Mechanical Ventilator 50 04/19/17 08:00 100 Mechanical Ventilator 50 04/19/17 08:00 50 04/19/17 08:00 Nasal Cannula 04/19/17 07:15 50 04/19/17 07:01 96 25 119/67 (84) 100 04/19/17 06:42 104 27 143/97 (112) 100 04/19/17 06:37 100 04/19/17 06:03 109 24 100 Nasal Cannula 2.0 04/19/17 05:01 112 23 98 Nasal Cannula 2.0 04/19/17 04:01 35.9 22 99 Nasal Cannula 2.0 04/19/17 04:00 100 Nasal Cannula 2.0 04/19/17 03:01 105 24 99 Room Air 04/19/17 02:01 102 24 169/106 (127) 100 Nasal Cannula 2.0 04/19/17 01:01 100 19 181/105 (130) 100 Nasal Cannula 2.0 04/19/17 00:01 36.8 97 23 171/119 (136) 100 Nasal Cannula 2.0 04/18/17 23:59 100 Nasal Cannula 2.0 04/18/17 23:01 98 13 150/118 (129) 100 Nasal Cannula 2.0 04/18/17 22:01 98 22 203/111 (141) 100 Nasal Cannula 2.0 04/18/17 21:01 99 23 171/95 (120) 100 Nasal Cannula 2.0 04/18/17 20:01 37.0 95 21 148/76 (100) 100 Nasal Cannula 2.0 04/18/17 20:00 100 Nasal Cannula 2.0 04/18/17 18:00 97 26 172/119 (136) 100 Nasal Cannula 4.0 04/18/17 16:00 36.8 87 20 147/86 (95) 100 04/18/17 16:00 36.8 88 26 166/118 (134) 100 Nasal Cannula 4.0 04/18/17 16:00 95 Nasal Cannula 4.0 04/18/17 15:00 87 20 100 04/18/17 15:00 87 20 100 04/18/17 14:02 85 20 147/86 (106) 100 04/18/17 14:02 85 20 147/86 (95) 100 04/18/17 14:00 86 15 100 04/18/17 14:00 86 15 100 Laboratory Results: Last 24 Hours Test 04/18/17 14:40 04/18/17 15:25 04/18/17 16:19 04/18/17 16:37 Bedside Glucose 165 mg/dl 145 mg/dl 123 mg/dl Sodium Level 134 mmol/L Potassium Level 3.5 mmol/L Chloride Level 113 mmol/L Carbon Dioxide Level 7 mmol/L Anion Gap 16.0 mmol/L Blood Urea Nitrogen 44 mg/dl Creatinine 2.34 mg/dl Est Creatinine Clear Calc Drug Dose 31.0 ml/min Estimated GFR () 28.4 Estimated GFR (Non- 24.5 BUN/Creatinine Ratio 18.7 Random Glucose 160 mg/dl Calcium Level 7.1 mg/dl Phosphorus Level 2.1 mg/dl Magnesium Level 2.2 mg/dl Test 04/18/17 17:28 04/18/17 18:27 04/18/17 19:31 04/18/17 20:28 Bedside Glucose 122 mg/dl 145 mg/dl 142 mg/dl 143 mg/dl Test 04/18/17 21:25 04/18/17 21:33 04/18/17 22:29 04/18/17 23:38 Sodium Level 134 mmol/L Potassium Level 3.8 mmol/L Chloride Level 112 mmol/L Carbon Dioxide Level 6 mmol/L Anion Gap 18.0 mmol/L Blood Urea Nitrogen 46 mg/dl Creatinine 2.37 mg/dl Est Creatinine Clear Calc Drug Dose 30.6 ml/min Estimated GFR () 28.0 Estimated GFR (Non- 24.1 BUN/Creatinine Ratio 19.2 Random Glucose 150 mg/dl Calcium Level 7.5 mg/dl Phosphorus Level 3.1 mg/dl Magnesium Level 2.1 mg/dl Procalcitonin 15.90 ng/ml Bedside Glucose 151 mg/dl 142 mg/dl 137 mg/dl Test 04/19/17 00:39 04/19/17 00:45 04/19/17 01:27 04/19/17 02:30 Bedside Glucose 131 mg/dl 127 mg/dl 165 mg/dl Sodium Level 135 mmol/L Potassium Level 4.4 mmol/L Chloride Level 116 mmol/L Carbon Dioxide Level 6 mmol/L Anion Gap 13.0 mmol/L Blood Urea Nitrogen 45 mg/dl Creatinine 2.44 mg/dl Est Creatinine Clear Calc Drug Dose 29.8 ml/min Estimated GFR () 27.0 Estimated GFR (Non- 23.3 BUN/Creatinine Ratio 18.4 Random Glucose 147 mg/dl Calcium Level 7.0 mg/dl Phosphorus Level 3.7 mg/dl Magnesium Level 2.0 mg/dl Test 04/19/17 03:27 04/19/17 04:11 04/19/17 04:24 04/19/17 05:32 Bedside Glucose 175 mg/dl 202 mg/dl 198 mg/dl White Blood Count 19.31 K/uL Red Blood Count 5.14 M/uL Hemoglobin 13.3 g/dL Hematocrit 40.4 % Mean Corpuscular Volume 78.6 fL Mean Corpuscular Hemoglobin 25.9 pg Mean Corpuscular Hemoglobin Concent 32.9 g/dl Platelet Count 349 K/uL Mean Platelet Volume 9.6 fL Neutrophils (%) (Auto) 78.5 % Lymphocytes (%) (Auto) 4.9 % Monocytes (%) (Auto) 7.0 % Eosinophils (%) (Auto) 0.7 % Basophils (%) (Auto) 0.5 % Neutrophils # (Auto) 15.16 K/uL Lymphocytes # (Auto) 0.95 K/uL Monocytes # (Auto) 1.35 K/uL Eosinophils # (Auto) 0.13 K/uL Basophils # (Auto) 0.10 K/uL RDW Standard Deviation 47.1 fL RDW Coefficient of Variation 16.6 % Immature Granulocyte % (Auto) 8.4 % Immature Granulocyte # (Auto) 1.62 K/uL Nucleated RBC Absolute Count (auto) 0.28 K/uL Nucleated Red Blood Cells % 1.5 % Toxic Vacuolation 3+ Sodium Level 135 mmol/L Potassium Level 3.6 mmol/L Chloride Level 113 mmol/L Carbon Dioxide Level 8 mmol/L Anion Gap 14.0 mmol/L Blood Urea Nitrogen 47 mg/dl Creatinine 2.54 mg/dl Est Creatinine Clear Calc Drug Dose 28.6 ml/min Estimated GFR () 25.7 Estimated GFR (Non- 22.2 BUN/Creatinine Ratio 18.3 Random Glucose 200 mg/dl Calcium Level 7.2 mg/dl Phosphorus Level 3.8 mg/dl Magnesium Level 2.1 mg/dl Ammonia 136.0 umol/L Test 04/19/17 06:57 04/19/17 07:13 04/19/17 08:04 04/19/17 09:06 Bedside Glucose 223 mg/dl 186 mg/dl 197 mg/dl Prothrombin Time 10.0 SECONDS Prothromb Time International Ratio 1.0 Activated Partial Thromboplast Time 23.7 SECONDS Partial Thromboplastin Ratio 0.9 Sodium Level 136 mmol/L Potassium Level 3.7 mmol/L Chloride Level 114 mmol/L Carbon Dioxide Level 6 mmol/L Anion Gap 16.0 mmol/L Blood Urea Nitrogen 47 mg/dl Creatinine 2.49 mg/dl Est Creatinine Clear Calc Drug Dose 29.2 ml/min Estimated GFR () 26.3 Estimated GFR (Non- 22.7 BUN/Creatinine Ratio 18.7 Random Glucose 195 mg/dl Lactic Acid Level < 0.1 mmol/L Calcium Level 7.2 mg/dl Phosphorus Level 4.0 mg/dl Magnesium Level 2.2 mg/dl Total Bilirubin 0.4 mg/dl Aspartate Amino Transf (AST/SGOT) 37 U/L Alanine Aminotransferase (ALT/SGPT) 28 U/L Alkaline Phosphatase 132 U/L Ammonia 38.0 umol/L Total Creatine Kinase 84 U/L Total Protein 7.0 gm/dl Albumin 3.0 gm/dl Globulin 4.0 gm/dl Albumin/Globulin Ratio 0.7 Amylase Level 105 U/L Lipase 649 U/L Procalcitonin 9.26 ng/ml Test 04/19/17 10:02 04/19/17 11:13 Bedside Glucose 240 mg/dl 148 mg/dl Ionized Calcium 0.96 mmol/l Phosphorus Level 1.9 mg/dl Magnesium Level 1.9 mg/dl Hepatitis B Surface Antigen NEG Hepatitis B Surface Antibody NEG CXR: Satisfactory support line placement. Mild pulmonary vascular congestion has improved.
[2017-04-19 14:51] LABS: BASO % 0.2 %; BASO ABS # 0.02 K/uL (0-0.2); EOS % 0.4 %; EOS ABS # 0.04 K/uL (0-0.5); HEMATOCRIT 28.9 % (37-47); HEMOGLOBIN 10.2 g/dL (12.0-16.0); IG# 0.07 K/uL (0.00-0.02); LYMPH ABS # 0.83 K/uL (1.2-3.4); MEAN CELL VOLUME 74.7 fL (80-100); MEAN CORPUSCULAR HEMOGLOBIN 26.4 pg (25-34); MEAN CORPUSCULAR HGB CONC 35.3 g/dl (32-36); MEAN PLATELET VOLUME 9.8 fL (7.4-10.4); MONO % 10.4 %; MONO ABS # 0.96 K/uL (0.11-0.59); NEUT % 79.2 %; NEUT ABS # 7.32 K/uL (1.4-6.5); PLATELET COUNT 249 K/uL (130-400); RED CELL DISTRIBUTION WIDTH CV 16.1 % (11.5-14.5); RED CELL DISTRIBUTION WIDTH SD 43.5 fL (36.4-46.3); WHITE BLOOD COUNT 9.24 K/uL (4.8-10.8)
[2017-04-19] MEDS: INSULIN REGULAR 250 UNITS in SODIUM CHLORIDE 0.9% 250ML 250 ML IV SCH (14:53)
[2017-04-19 15:13] LABS: ALBUMIN 2.1 gm/dl (3.4-5.0); CALCIUM 6.5 mg/dl (8.5-10.1); CREATININE 1.21 mg/dl (0.60-1.20); PHOSPHORUS 1.2 mg/dl (2.5-4.9); POTASSIUM 2.5 mmol/L (3.5-5.1); TOTAL PROTEIN 5.1 gm/dl (6.4-8.2)
[2017-04-19] MEDS ORDERED: SODIUM BICARBONATE 8.4% INJ 75 MEQ in D5W AND 1/2NSS 1,000 ML IV SCH (15:30)
[2017-04-19] MEDS ORDERED: POTASSIUM PHOS 3 MMOL/1 ML INFUSION IV STA (15:39)
[2017-04-19] MEDS ORDERED: CALCIUM CHLORIDE 10% 10 ML SYR IV STA (15:41)
[2017-04-19] MEDS ORDERED: MAGNESIUM SULFATE 1GM / D5W 1 GM in PREMIXED IN D5W 100 ML IV ONE (16:00)
[2017-04-19] MEDS ORDERED: POTASSIUM PHOSPHATE INJ 30 MMOL in SODIUM CHLORIDE 0.9% 500ML 500 ML IV ONE (16:00)
[2017-04-19] MEDS: POTASSIUM CHLR 10 MEQ / WTR 10 MEQ in PREMIXED WATER 100 ML IV SCH ×4 (16:26→23:11)
[2017-04-19] MEDS: D5W AND 1/2NSS + 20MEQ KCL 1,000 ML IV SCH (17:39)
--- NOTE | 2017-04-19 18:14 | Progress Note ---
Internal Med Progress Note Date of Service: Apr 19, 2017. Provider Documentation: SUBJECTIVE: developed labored breathing earlier today intubated for respiratory support under went dialysis for persisted metabolic acidosis OBJECTIVE: Vital Signs-as noted below Exam: General-sedated on vent Eyes-sclera injected ENT-ET tube present Neck-tranche midline , no thyromegaly Lungs-no rales or wheeze Heart-regular S1/S2 , no JVD, no lower ext edema Abdomen-soft, non tender Extremities-multiple scab wounds in different stages of healing in both arms and hands Neuro-sedated on vent Lab data as noted below. 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 remains in metabolic acidosis , with Hco3 worsening ~5 s/p dialysis today ,appreciate nephrology input LOW MG /LOW PHOS : due to Hco3 gtt /on IV insulin gtt as well corrected \monitor lytes closely ACUTE KIDNEY INJURY IN SETTING OF CKD STAGE 3 hx of diabetic nephropathy , baseline cr approx ~1.3 Cr 1.9-> 2 ACEI /HCTZ kept on hold Nephrology following emergent dialysis done for severe metabolic acidosis CONFUSION /LETHARGY : possible metabolic encephalopathy due to above at present on mechanical ventilation ,sedated cont correction of acidosis /dehydration CT head -no acute change HYPERAMMONEMIA : not sure of the etiology no evidence of hepatic compromise -no shock liver, no prior dx of chronic liver disease Ammonia level > 100 ordered for lactulose LFT's wnl , except for mild elevation of Alk phos no report of ETOH abuse CT abdomen /pelvis in 2016 noted to have fatty infiltration of liver recent EGD by Dr. Hassan in 2007 for epigastric pain. Endoscopy was normal and biopsies suggested reflux esophagitis at the GE junction. liver USG -no significant finding GI eval requested , appreciate input no GI intervention indicated , recommends continued correction of DKA , metabolic acidosis Leukocytosis: i -Likely 2/2 DKA/dehydration possible infection 2/2 scratches check stool; for cdiff -Clinically unimpressive but h/o staph infection due to wounds -Empirically treated with vanc and cefepime -Blood cultures ordered H/o c diff: -ordered diff toxin assay DVT Ppx: Heparin SQ Code status: FULL DISPOSITION remains critically ill cont ICU monitoring Vital Signs: Date Time Temp Pulse Resp B/P (MAP) Pulse Ox O2 Delivery O2 Flow Rate FiO2 04/20/17 12:00 36.8 79 24 145/90 (108) 98 Room Air 167/75 (105) 04/20/17 12:00 97 Room Air 04/20/17 10:00 75 19 155/82 (106) 98 Nasal Cannula 3.0 167/77 (107) 04/20/17 09:50 37.3 77 17 (115) 100 175/80 04/20/17 09:45 37.3 76 15 (118) 99 178/83 04/20/17 09:40 37.2 80 9 (138) 100 194/88 04/20/17 09:35 37.2 76 13 (122) 100 191/85 04/20/17 09:33 37.2 65 22 139/99 (108) 99 171/85 04/20/17 09:30 37.2 74 20 (112) 100 168/80 04/20/17 09:25 37.2 74 20 (111) 100 167/80 04/20/17 09:20 37.1 73 19 (105) 100 161/75 04/20/17 09:15 37.1 73 19 (104) 100 158/75 04/20/17 09:14 28 04/20/17 09:10 37.1 73 18 (97) 100 149/69 04/20/17 08:00 Mechanical Ventilator 28 04/20/17 08:00 36.8 76 19 123/73 (90) 100 CPAP 28 150/65 (93) Mechanical Ventilator 04/20/17 08:00 100 Mechanical Ventilator 28 04/20/17 08:00 28 04/20/17 07:52 28 04/20/17 06:00 76 20 122/54 (76) 100 Mechanical Ventilator 28 04/20/17 05:32 28 04/20/17 05:31 30 04/20/17 04:00 30 04/20/17 04:00 100 Mechanical Ventilator 30 04/20/17 04:00 37.6 81 20 156/72 (100) 100 Mechanical Ventilator 30 04/20/17 02:00 82 20 158/71 (100) 100 Mechanical Ventilator 30 04/20/17 01:53 30 04/20/17 00:01 37.6 82 20 126/55 (78) 100 Mechanical Ventilator 30 04/19/17 23:59 30 04/19/17 23:59 100 Mechanical Ventilator 30 04/19/17 23:24 30 04/19/17 22:00 37.7 81 20 134/65 (88) 100 Mechanical Ventilator 30 04/19/17 20:19 30 04/19/17 20:00 100 Mechanical Ventilator 30 04/19/17 20:00 30 04/19/17 20:00 37.7 101 20 152/71 (98) 100 Mechanical Ventilator 30 04/19/17 18:00 37.6 106 22 113/68 (83) 100 Mechanical Ventilator 30 122/54 (76) 04/19/17 17:13 30 04/19/17 17:00 40 04/19/17 16:00 100 Mechanical Ventilator 40 04/19/17 16:00 37.0 102 24 119/70 (86) 100 Mechanical Ventilator 40 149/79 (102) 04/19/17 16:00 24 04/19/17 14:30 40 04/19/17 14:25 40 Lab Results: Results Past 24 Hours Test 04/19/17 14:05 04/19/17 14:20 04/19/17 14:49 04/19/17 15:48 Range/Units Lactic Acid Level 0.4-2.0 mmol/L Blood Gas Sample Site Art Line Bedside Blood Gas pH (LAB) 7.49 7.35-7.45 Bedside Blood Gas pCO2 (LAB) 24 35-46 mmHg Bedside Blood Gas pO2 (LAB) 216 80-95 mmHg Bedside Blood Gas HCO3 (LAB) 18 19-24 meq/L Bedside Blood Gas Total CO2 19 24-31 mEq/l Bedside Blood Gas Base Excess (LAB) -5.0 -9-1.8 meq/L Bedside Blood Gas O2 Saturation 100.0 90-95 % Mickey Test NA Oxygen Delivery Device Ventilator Bedside Oxygen Rate (breaths/min) 30 Bedside FiO2 4 % Blood Gas Tidal Volume 450 Blood Gas PEEP 8 Bedside Glucose 197 218 70-90 mg/dl Test 04/19/17 16:50 04/19/17 17:05 04/19/17 17:50 04/19/17 19:03 Range/Units Bedside Glucose 239 251 263 70-90 mg/dl Blood Gas Sample Site Art Line Bedside Blood Gas pH (LAB) 7.44 7.35-7.45 Bedside Blood Gas pCO2 (LAB) 30 35-46 mmHg Bedside Blood Gas pO2 (LAB) 183 80-95 mmHg Bedside Blood Gas HCO3 (LAB) 21 19-24 meq/L Bedside Blood Gas Total CO2 21 24-31 mEq/l Bedside Blood Gas Base Excess (LAB) -4.0 -9-1.8 meq/L Bedside Blood Gas O2 Saturation 100.0 90-95 % Mickey Test NA Oxygen Delivery Device Ventilator Bedside Oxygen Rate (breaths/min) 24 Bedside FiO2 40 % Blood Gas Tidal Volume 450 Blood Gas PEEP 5 Test 04/19/17 20:00 04/19/17 20:05 04/19/17 21:13 04/19/17 22:14 Range/Units Sodium Level 136 136-145 mmol/L Potassium Level 2.5 3.5-5.1 mmol/L Chloride Level 101 98-107 mmol/L Carbon Dioxide Level 22 21-32 mmol/L Anion Gap 14.0 3-11 mmol/L Blood Urea Nitrogen 25 7-18 mg/dl Creatinine 1.78 0.60-1.20 mg/dl Est Creatinine Clear Calc Drug Dose 42.4 ml/min Estimated GFR () 39.5 Estimated GFR (Non- 34.1 BUN/Creatinine Ratio 13.8 10-20 Random Glucose 286 70-99 mg/dl Calcium Level 7.4 8.5-10.1 mg/dl Ionized Calcium 1.02 1.12-1.32 mmol/l Phosphorus Level 4.2 2.5-4.9 mg/dl Magnesium Level 1.9 1.8-2.4 mg/dl Total Bilirubin 0.4 0.2-1 mg/dl Aspartate Amino Transf (AST/SGOT) 25 15-37 U/L Alanine Aminotransferase (ALT/SGPT) 22 12-78 U/L Alkaline Phosphatase 92 45-117 U/L Total Protein 5.1 6.4-8.2 gm/dl Albumin 2.1 3.4-5.0 gm/dl Globulin 3.0 2.5-4.0 gm/dl Albumin/Globulin Ratio 0.7 0.9-2 Triglycerides Level 1456 0-150 mg/dl Cholesterol Level 293 0-200 mg/dl HDL Cholesterol 20 mg/dl LDL Cholesterol, Calculated mg/dl VLDL Cholesterol, Calculated mg/dl Cholesterol/HDL Ratio 14.7 Bedside Glucose 289 235 304 70-90 mg/dl Test 04/19/17 23:02 04/19/17 23:19 04/20/17 00:14 04/20/17 00:55 Range/Units Bedside Glucose 294 252 289 70-90 mg/dl Blood Gas Sample Site Art Line Bedside Blood Gas pH (LAB) 7.42 7.35-7.45 Bedside Blood Gas pCO2 (LAB) 34 35-46 mmHg Bedside Blood Gas pO2 (LAB) 156 80-95 mmHg Bedside Blood Gas HCO3 (LAB) 22 19-24 meq/L Bedside Blood Gas Total CO2 23 24-31 mEq/l Bedside Blood Gas Base Excess (LAB) -2.0 -9-1.8 meq/L Bedside Blood Gas O2 Saturation 99.0 90-95 % Mickey Test NA Oxygen Delivery Device Ventilator Bedside Oxygen Rate (breaths/min) 2 Blood Gas Minute Ventilation 9.1 Bedside FiO2 30 % Blood Gas Tidal Volume 450 Blood Gas PEEP 5 Test 04/20/17 01:34 04/20/17 01:59 04/20/17 02:58 04/20/17 04:08 Range/Units White Blood Count 8.22 4.8-10.8 K/uL Red Blood Count 3.41 4.2-5.4 M/uL Hemoglobin 9.0 12.0-16.0 g/dL Hematocrit 25.6 37-47 % Mean Corpuscular Volume 75.1 80-100 fL Mean Corpuscular Hemoglobin 26.4 25-34 pg Mean Corpuscular Hemoglobin Concent 35.2 32-36 g/dl Platelet Count 217 130-400 K/uL Mean Platelet Volume 8.9 7.4-10.4 fL Neutrophils (%) (Auto) 76.6 % Lymphocytes (%) (Auto) 12.7 % Monocytes (%) (Auto) 9.0 % Eosinophils (%) (Auto) 0.9 % Basophils (%) (Auto) 0.2 % Neutrophils # (Auto) 6.30 1.4-6.5 K/uL Lymphocytes # (Auto) 1.04 1.2-3.4 K/uL Monocytes # (Auto) 0.74 0.11-0.59 K/uL Eosinophils # (Auto) 0.07 0-0.5 K/uL Basophils # (Auto) 0.02 0-0.2 K/uL RDW Standard Deviation 44.5 36.4-46.3 fL RDW Coefficient of Variation 16.3 11.5-14.5 % Immature Granulocyte % (Auto) 0.6 % Immature Granulocyte # (Auto) 0.05 0.00-0.02 K/uL Nucleated RBC Absolute Count (auto) 0.05 0-0 K/uL Nucleated Red Blood Cells % 0.6 % Sodium Level 137 136-145 mmol/L Potassium Level 2.6 3.5-5.1 mmol/L Chloride Level 105 98-107 mmol/L Carbon Dioxide Level 22 21-32 mmol/L Anion Gap 10.0 3-11 mmol/L Blood Urea Nitrogen 25 7-18 mg/dl Creatinine 1.88 0.60-1.20 mg/dl Est Creatinine Clear Calc Drug Dose 40.1 ml/min Estimated GFR () 37.0 Estimated GFR (Non- 31.9 BUN/Creatinine Ratio 13.2 10-20 Random Glucose 285 70-99 mg/dl Lactic Acid Level < 0.1 0.4-2.0 mmol/L Calcium Level 6.5 8.5-10.1 mg/dl Ionized Calcium 0.87 1.12-1.32 mmol/l Phosphorus Level 3.4 2.5-4.9 mg/dl Magnesium Level 1.7 1.8-2.4 mg/dl Total Bilirubin 0.3 0.2-1 mg/dl Aspartate Amino Transf (AST/SGOT) 22 15-37 U/L Alanine Aminotransferase (ALT/SGPT) 25 12-78 U/L Alkaline Phosphatase 87 45-117 U/L Total Protein 4.9 6.4-8.2 gm/dl Albumin 2.0 3.4-5.0 gm/dl Globulin 2.9 2.5-4.0 gm/dl Albumin/Globulin Ratio 0.7 0.9-2 Bedside Glucose 274 287 274 70-90 mg/dl Test 04/20/17 05:07 04/20/17 05:12 04/20/17 05:14 04/20/17 06:07 Range/Units Prothrombin Time 9.8 9.0-12.0 SECONDS Prothromb Time International Ratio 0.9 0.9-1.1 Activated Partial Thromboplast Time 27.3 21.0-31.0 SECONDS Partial Thromboplastin Ratio 1.1 Sodium Level 135 136-145 mmol/L Potassium Level 2.8 3.5-5.1 mmol/L Chloride Level 104 98-107 mmol/L Carbon Dioxide Level 23 21-32 mmol/L Anion Gap 8.0 3-11 mmol/L Blood Urea Nitrogen 25 7-18 mg/dl Creatinine 1.93 0.60-1.20 mg/dl Est Creatinine Clear Calc Drug Dose 39.1 ml/min Estimated GFR () 35.8 Estimated GFR (Non- 30.9 BUN/Creatinine Ratio 12.9 10-20 Random Glucose 268 70-99 mg/dl Calcium Level 7.8 8.5-10.1 mg/dl Ionized Calcium 1.09 1.12-1.32 mmol/l Phosphorus Level 3.1 2.5-4.9 mg/dl Magnesium Level 2.2 1.8-2.4 mg/dl Total Bilirubin 0.5 0.2-1 mg/dl Aspartate Amino Transf (AST/SGOT) 24 15-37 U/L Alanine Aminotransferase (ALT/SGPT) 24 12-78 U/L Alkaline Phosphatase 87 45-117 U/L Total Creatine Kinase 51 26-192 U/L Total Protein 5.4 6.4-8.2 gm/dl Albumin 2.2 3.4-5.0 gm/dl Globulin 3.2 2.5-4.0 gm/dl Albumin/Globulin Ratio 0.7 0.9-2 Amylase Level 56 25-115 U/L Lipase 516 73-393 U/L Procalcitonin 6.09 0-0.5 ng/ml Random Vancomycin Level 28.3 mcg/ml Bedside Glucose 269 240 70-90 mg/dl Blood Gas Sample Site Art Line Bedside Blood Gas pH (LAB) 7.38 7.35-7.45 Bedside Blood Gas pCO2 (LAB) 35 35-46 mmHg Bedside Blood Gas pO2 (LAB) 146 80-95 mmHg Bedside Blood Gas HCO3 (LAB) 21 19-24 meq/L Bedside Blood Gas Total CO2 22 24-31 mEq/l Bedside Blood Gas Base Excess (LAB) -4.0 -9-1.8 meq/L Bedside Blood Gas O2 Saturation 99.0 90-95 % Mickey Test NA Oxygen Delivery Device Ventilator Bedside Oxygen Rate (breaths/min) 20 Blood Gas Minute Ventilation 9.1 Bedside FiO2 30 % Blood Gas Tidal Volume 450 Blood Gas PEEP 5 Test 04/20/17 07:10 04/20/17 09:26 04/20/17 11:27 04/20/17 14:00 Range/Units Bedside Glucose 228 208 164 70-90 mg/dl Microbiology Results 04/19/17 C.difficile Toxin B Gene (PCR) - Final, Complete Positive for C. difficile toxin B gene
[2017-04-19 20:49] LABS: ALBUMIN 2.1 gm/dl (3.4-5.0); CALCIUM 7.4 mg/dl (8.5-10.1); CREATININE 1.78 mg/dl (0.60-1.20); TOTAL PROTEIN 5.1 gm/dl (6.4-8.2)
[2017-04-19 20:57] LABS: POTASSIUM 2.5 mmol/L (3.5-5.1)
[2017-04-19 21:14] LABS: PHOSPHORUS 4.2 mg/dl (2.5-4.9)
[2017-04-19] MEDS: VANCOMYCIN INJ 1,250 MG in SODIUM CHLORIDE 0.9% 250ML 250 ML IV SCH (21:42)
[2017-04-19] MEDS: FIDAXOMICIN TAB 200 MG TAB PO SCH (23:24)
[2017-04-20] VITALS (23 sets, daily range): BP systolic 122–214; BP diastolic 54–110; PULSE 65–99; TEMP 36.6–37.6; O2SAT 95–100; BMI 34.9
[2017-04-20] MEDS: POTASSIUM CHLR 10 MEQ / WTR 10 MEQ in PREMIXED WATER 100 ML IV SCH ×6 (00:10→04:56)
[2017-04-20] MEDS: PIPERACILL/TAZOBAC IV 3.375 GM in DEXTROSE 5% 100ML 100 ML IV SCH ×3 (00:10→20:18)
[2017-04-20] MEDS: PROPOFOL IV EMULSION 10 MG/ML 100 ML VIAL IV PRN ×2 (01:05→04:57)
[2017-04-20 01:42] LABS: BASO % 0.2 %; BASO ABS # 0.02 K/uL (0-0.2); EOS % 0.9 %; EOS ABS # 0.07 K/uL (0-0.5); HEMATOCRIT 25.6 % (37-47); IG# 0.05 K/uL (0.00-0.02); LYMPH % 12.7 %; LYMPH ABS # 1.04 K/uL (1.2-3.4); MEAN CELL VOLUME 75.1 fL (80-100); MEAN CORPUSCULAR HEMOGLOBIN 26.4 pg (25-34); MEAN CORPUSCULAR HGB CONC 35.2 g/dl (32-36); MEAN PLATELET VOLUME 8.9 fL (7.4-10.4); MONO ABS # 0.74 K/uL (0.11-0.59); NEUT % 76.6 %; NUCLEATED RED BLOOD CELL ABS 0.05 K/uL (0-0); PLATELET COUNT 217 K/uL (130-400); RED CELL DISTRIBUTION WIDTH CV 16.3 % (11.5-14.5); RED CELL DISTRIBUTION WIDTH SD 44.5 fL (36.4-46.3); WHITE BLOOD COUNT 8.22 K/uL (4.8-10.8)
[2017-04-20 02:08] LABS: CALCIUM 6.5 mg/dl (8.5-10.1); CREATININE 1.88 mg/dl (0.60-1.20); PHOSPHORUS 3.4 mg/dl (2.5-4.9); POTASSIUM 2.6 mmol/L (3.5-5.1); TOTAL PROTEIN 4.9 gm/dl (6.4-8.2)
[2017-04-20] MEDS ORDERED: CALCIUM CHLORIDE 10% 1,000 MG in SODIUM CHLORIDE 0.9% 50ML 50 ML IV STA (02:59)
[2017-04-20] MEDS ORDERED: CALCIUM CHLORIDE 10% 10 ML SYR IV SCH (03:00)
[2017-04-20] MEDS ORDERED: MAGNESIUM SULFATE 1GM / D5W 1 GM in PREMIXED IN D5W 100 ML IV STA (03:00)
[2017-04-20] MEDS: D5W AND 1/2NSS + 20MEQ KCL 1,000 ML IV SCH (03:45)
[2017-04-20] MEDS: FENTANYL CITRATE INJ 50 MCG/1 ML 2 ML VIAL IV PRN (04:40)
[2017-04-20 05:53] LABS: INR 0.9 (0.9-1.1); PTT PATIENT 27.3 SECONDS (21.0-31.0)
[2017-04-20] MEDS: FAMOTIDINE IV INJ 20 MG in SYRINGE 3 ML IV SCH ×2 (06:00→17:50)
[2017-04-20] MEDS: HEPARIN SOD 5000 UNIT/0.5 ML CARP SQ SCH ×3 (06:00→23:00)
[2017-04-20 06:22] LABS: ALBUMIN 2.2 gm/dl (3.4-5.0); CALCIUM 7.8 mg/dl (8.5-10.1); CREATININE 1.93 mg/dl (0.60-1.20); PHOSPHORUS 3.1 mg/dl (2.5-4.9); POTASSIUM 2.8 mmol/L (3.5-5.1); TOTAL PROTEIN 5.4 gm/dl (6.4-8.2)
[2017-04-20] MEDS ORDERED: POTASSIUM CHLORIDE 20 MEQ/15 ML UDC NG STA (07:01)
--- NOTE | 2017-04-20 07:07 | Nephrology Progress Note ---
Nephrology Progress Note Date of Service: Apr 20, 2017. Subjective 42 yo female with signicant dka who continued to have recalcitrant acidosis and required dialysis yesterday. acidosis has improved however pts hypokalemia was revealed. has been aggressively repleted over past twenty four hours. urinating well. cdiff positive. Objective Date Time Temp Pulse Resp B/P (MAP) Pulse Ox O2 Delivery O2 Flow Rate FiO2 04/20/17 06:00 76 20 122/54 (76) 100 Mechanical Ventilator 28 04/20/17 05:32 28 04/20/17 05:31 30 04/20/17 04:00 30 04/20/17 04:00 100 Mechanical Ventilator 30 04/20/17 04:00 37.6 81 20 156/72 (100) 100 Mechanical Ventilator 30 04/20/17 02:00 82 20 158/71 (100) 100 Mechanical Ventilator 30 04/20/17 01:53 30 04/20/17 00:01 37.6 82 20 126/55 (78) 100 Mechanical Ventilator 30 04/19/17 23:59 30 04/19/17 23:59 100 Mechanical Ventilator 30 04/19/17 23:24 30 04/19/17 22:00 37.7 81 20 134/65 (88) 100 Mechanical Ventilator 30 04/19/17 20:19 30 04/19/17 20:00 100 Mechanical Ventilator 30 04/19/17 20:00 30 04/19/17 20:00 37.7 101 20 152/71 (98) 100 Mechanical Ventilator 30 04/19/17 18:00 37.6 106 22 113/68 (83) 100 Mechanical Ventilator 30 122/54 (76) 04/19/17 17:13 30 04/19/17 17:00 40 04/19/17 16:00 100 Mechanical Ventilator 40 04/19/17 16:00 37.0 102 24 119/70 (86) 100 Mechanical Ventilator 40 149/79 (102) 04/19/17 14:30 40 04/19/17 14:25 40 04/19/17 14:00 101 30 131/59 (83) 100 Mechanical Ventilator 40 04/19/17 13:57 36.9 101 113/57 (75) 04/19/17 13:00 103 124/54 04/19/17 12:45 106 108/61 04/19/17 12:30 104 152/63 04/19/17 12:15 105 141/64 04/19/17 12:00 105 112/61 04/19/17 12:00 100 Mechanical Ventilator 40 04/19/17 12:00 37.0 105 27 152/63 (92) 100 Mechanical Ventilator 40 04/19/17 11:45 102 115/60 04/19/17 11:30 101 92/55 04/19/17 11:20 40 04/19/17 11:15 100 129/66 04/19/17 11:00 100 116/60 04/19/17 10:45 97 133/61 04/19/17 10:30 96 107/58 04/19/17 10:15 94 130/70 04/19/17 10:00 95 23 130/70 (90) 100 Mechanical Ventilator 50 04/19/17 10:00 36.5 90 133/66 (88) 04/19/17 08:00 36.4 91 25 167/104 (125) 100 Mechanical Ventilator 50 04/19/17 08:00 100 Mechanical Ventilator 50 04/19/17 08:00 50 04/19/17 08:00 Nasal Cannula 04/19/17 07:15 50 Physical Exam: General-sedated Eyes-no scleral icterus ENT-mmm Neck-supple Lungs-cta anteriorly, intubated Heart-regular Abdomen-bs+ s/nt/nd Extremities-no c/c, +1 edema in arms and legs Neuro-sedated Current Inpatient Medications Medications (Trade) Dose Ordered Sig/Yudy Route Start Time Stop Time Status Last Admin Dose Admin Glucose (Glucose 40% Gel) UD PRN PO 04/17/17 15:00 05/17/17 14:59 Glucose (Glucose Chew Tab) 1 tabs UD PRN PO 04/17/17 15:00 05/17/17 14:59 Dextrose (Dextrose 50% 50ML Syringe) 50 ml UD PRN IV 04/17/17 15:00 05/17/17 14:59 Glucagon (Glucagon Inj) 1 mg UD PRN SQ 04/17/17 15:00 05/17/17 14:59 Insulin Aspart (novoLOG ASPART) SLIDING SCALE PCHS SC 04/17/17 17:30 05/17/17 18:59 Miscellaneous Information (Consult Glycemic Management Pharmacy) 1 ea UD PRN N/A 04/17/17 15:45 05/17/17 15:44 Heparin Sodium (Porcine) (Heparin Sq 5000 Unit/0.5ml) 5,000 unit Q8 SQ 04/17/17 22:00 05/17/17 21:59 04/20/17 06:00 5,000 UNIT Acetaminophen (Tylenol Tab) 650 mg Q4H PRN PO 04/17/17 16:00 05/17/17 15:59 Ondansetron HCl (Zofran Inj) 4 mg Q6H PRN IV 04/17/17 16:00 05/17/17 15:59 Albuterol (Ventolin Hfa Inhaler) 2 puffs Q4H PRN INH 04/17/17 16:15 05/17/17 16:14 Amlodipine Besylate (Norvasc Tab) 5 mg QAM PO 04/18/17 09:00 05/18/17 08:59 04/19/17 14:53 5 MG Atorvastatin Calcium (Lipitor Tab) 10 mg DAILY PO 04/18/17 09:00 05/18/17 08:59 Future Hold Duloxetine HCl (Cymbalta Cap) 60 mg QPM PO 04/17/17 21:00 05/17/17 20:59 Future Hold 04/17/17 20:52 60 MG Pregabalin (Lyrica Cap) 50 mg QPM PO 04/17/17 21:00 05/17/17 20:59 Future Hold 04/17/17 20:55 50 MG Topiramate (Topamax Tab) 75 mg QPM PO 04/18/17 21:00 05/18/17 20:59 Future Hold Vancomycin HCl (Consult) 1 ea UD PRN N/A 04/17/17 16:27 05/17/17 16:26 Famotidine 20 mg/ Syringe 5 ml @ 2.5 mls/min Q12H IV 04/17/17 18:00 05/17/17 17:59 04/20/17 06:00 2.5 MLS/MIN Insulin Human Regular 250 units/ Sodium Chloride 252.5 ml @ 0 mls/hr Q24H IV 04/18/17 15:00 05/18/17 14:59 04/19/17 14:53 1.7 MLS/HR Vancomycin HCl 1250 mg/Sodium Chloride 275 ml @ 125 mls/hr Q28H IV 04/18/17 18:00 04/28/17 17:59 04/19/17 21:42 125 MLS/HR Piperacillin Sod/ Tazobactam Sod (Consult) 1 ea UD PRN N/A 04/19/17 07:15 05/19/17 07:14 Fentanyl Citrate (Fentanyl Inj) 50 mcg Q1H PRN IV 04/19/17 08:30 05/03/17 08:29 04/20/17 04:40 50 MCG Propofol (Diprivan Iv Emulsion 100ml Vial) 1 dose UD PRN IV 04/19/17 08:16 04/22/17 08:15 04/20/17 04:57 1 DOSE Propranolol HCl (Inderal Tab) 120 mg BID PO 04/19/17 09:37 05/19/17 09:36 04/19/17 21:38 120 MG Piperacillin Sod/ Tazobactam Sod 3.375 gm/Dextrose 115 ml @ 28.75 mls/ hr Q12H IV 04/20/17 00:00 04/30/17 00:00 04/20/17 00:10 28.75 MLS/HR Potassium Chloride/Dextrose/ Sod Cl 1,000 ml @ 100 mls/hr Q10H IV 04/19/17 17:30 05/19/17 17:14 04/20/17 03:45 100 MLS/HR Fidaxomicin (Dificid Tab) 200 mg BID PO 04/19/17 23:15 04/29/17 23:14 04/19/17 23:24 200 MG Last 24 Hours Test 04/19/17 07:13 04/19/17 08:04 04/19/17 09:06 04/19/17 10:02 Prothrombin Time 10.0 SECONDS Prothromb Time International Ratio 1.0 Activated Partial Thromboplast Time 23.7 SECONDS Partial Thromboplastin Ratio 0.9 Sodium Level 136 mmol/L Potassium Level 3.7 mmol/L Chloride Level 114 mmol/L Carbon Dioxide Level 6 mmol/L Anion Gap 16.0 mmol/L Blood Urea Nitrogen 47 mg/dl Creatinine 2.49 mg/dl Est Creatinine Clear Calc Drug Dose 29.2 ml/min Estimated GFR () 26.3 Estimated GFR (Non- 22.7 BUN/Creatinine Ratio 18.7 Random Glucose 195 mg/dl Lactic Acid Level < 0.1 mmol/L Calcium Level 7.2 mg/dl Phosphorus Level 4.0 mg/dl 1.9 mg/dl Magnesium Level 2.2 mg/dl 1.9 mg/dl Total Bilirubin 0.4 mg/dl Aspartate Amino Transf (AST/SGOT) 37 U/L Alanine Aminotransferase (ALT/SGPT) 28 U/L Alkaline Phosphatase 132 U/L Ammonia 38.0 umol/L Total Creatine Kinase 84 U/L Total Protein 7.0 gm/dl Albumin 3.0 gm/dl Globulin 4.0 gm/dl Albumin/Globulin Ratio 0.7 Amylase Level 105 U/L Lipase 649 U/L Procalcitonin 9.26 ng/ml Bedside Glucose 186 mg/dl 197 mg/dl 240 mg/dl Ionized Calcium 0.96 mmol/l Hepatitis B Surface Antigen NEG Hepatitis B Surface Antibody NEG Hepatitis B Core IgM Antibody NON-REACTIVE Test 04/19/17 11:13 04/19/17 12:49 04/19/17 13:58 04/19/17 14:00 Bedside Glucose 148 mg/dl 147 mg/dl 166 mg/dl White Blood Count 9.24 K/uL Red Blood Count 3.87 M/uL Hemoglobin 10.2 g/dL Hematocrit 28.9 % Mean Corpuscular Volume 74.7 fL Mean Corpuscular Hemoglobin 26.4 pg Mean Corpuscular Hemoglobin Concent 35.3 g/dl Platelet Count 249 K/uL Mean Platelet Volume 9.8 fL Neutrophils (%) (Auto) 79.2 % Lymphocytes (%) (Auto) 9.0 % Monocytes (%) (Auto) 10.4 % Eosinophils (%) (Auto) 0.4 % Basophils (%) (Auto) 0.2 % Neutrophils # (Auto) 7.32 K/uL Lymphocytes # (Auto) 0.83 K/uL Monocytes # (Auto) 0.96 K/uL Eosinophils # (Auto) 0.04 K/uL Basophils # (Auto) 0.02 K/uL RDW Standard Deviation 43.5 fL RDW Coefficient of Variation 16.1 % Immature Granulocyte % (Auto) 0.8 % Immature Granulocyte # (Auto) 0.07 K/uL Nucleated RBC Absolute Count (auto) 0.10 K/uL Nucleated Red Blood Cells % 1.0 % Sodium Level 136 mmol/L Potassium Level 2.5 mmol/L Chloride Level 101 mmol/L Carbon Dioxide Level 17 mmol/L Anion Gap 19.0 mmol/L Blood Urea Nitrogen 22 mg/dl Creatinine 1.21 mg/dl Est Creatinine Clear Calc Drug Dose 62.4 ml/min Estimated GFR () 63.0 Estimated GFR (Non- 54.4 BUN/Creatinine Ratio 18.4 Random Glucose 187 mg/dl Calcium Level 6.5 mg/dl Ionized Calcium 0.88 mmol/l Phosphorus Level 1.2 mg/dl Magnesium Level 1.7 mg/dl Total Bilirubin 0.6 mg/dl Aspartate Amino Transf (AST/SGOT) 30 U/L Alanine Aminotransferase (ALT/SGPT) 23 U/L Alkaline Phosphatase 95 U/L Total Protein 5.1 gm/dl Albumin 2.1 gm/dl Globulin 3.0 gm/dl Albumin/Globulin Ratio 0.7 Test 04/19/17 14:05 04/19/17 14:49 04/19/17 15:48 04/19/17 16:50 Lactic Acid Level mmol/L Bedside Glucose 197 mg/dl 218 mg/dl 239 mg/dl Test 04/19/17 17:50 04/19/17 19:03 04/19/17 20:00 04/19/17 20:05 Bedside Glucose 251 mg/dl 263 mg/dl 289 mg/dl Sodium Level 136 mmol/L Potassium Level 2.5 mmol/L Chloride Level 101 mmol/L Carbon Dioxide Level 22 mmol/L Anion Gap 14.0 mmol/L Blood Urea Nitrogen 25 mg/dl Creatinine 1.78 mg/dl Est Creatinine Clear Calc Drug Dose 42.4 ml/min Estimated GFR () 39.5 Estimated GFR (Non- 34.1 BUN/Creatinine Ratio 13.8 Random Glucose 286 mg/dl Calcium Level 7.4 mg/dl Ionized Calcium 1.02 mmol/l Phosphorus Level 4.2 mg/dl Magnesium Level 1.9 mg/dl Total Bilirubin 0.4 mg/dl Aspartate Amino Transf (AST/SGOT) 25 U/L Alanine Aminotransferase (ALT/SGPT) 22 U/L Alkaline Phosphatase 92 U/L Total Protein 5.1 gm/dl Albumin 2.1 gm/dl Globulin 3.0 gm/dl Albumin/Globulin Ratio 0.7 Triglycerides Level 1456 mg/dl Cholesterol Level 293 mg/dl HDL Cholesterol 20 mg/dl LDL Cholesterol, Calculated mg/dl VLDL Cholesterol, Calculated mg/dl Cholesterol/HDL Ratio 14.7 Test 04/19/17 21:13 04/19/17 22:14 04/19/17 23:02 04/20/17 00:14 Bedside Glucose 235 mg/dl 304 mg/dl 294 mg/dl 252 mg/dl Test 04/20/17 00:55 04/20/17 01:34 04/20/17 01:59 04/20/17 02:58 Bedside Glucose 289 mg/dl 274 mg/dl 287 mg/dl White Blood Count 8.22 K/uL Red Blood Count 3.41 M/uL Hemoglobin 9.0 g/dL Hematocrit 25.6 % Mean Corpuscular Volume 75.1 fL Mean Corpuscular Hemoglobin 26.4 pg Mean Corpuscular Hemoglobin Concent 35.2 g/dl Platelet Count 217 K/uL Mean Platelet Volume 8.9 fL Neutrophils (%) (Auto) 76.6 % Lymphocytes (%) (Auto) 12.7 % Monocytes (%) (Auto) 9.0 % Eosinophils (%) (Auto) 0.9 % Basophils (%) (Auto) 0.2 % Neutrophils # (Auto) 6.30 K/uL Lymphocytes # (Auto) 1.04 K/uL Monocytes # (Auto) 0.74 K/uL Eosinophils # (Auto) 0.07 K/uL Basophils # (Auto) 0.02 K/uL RDW Standard Deviation 44.5 fL RDW Coefficient of Variation 16.3 % Immature Granulocyte % (Auto) 0.6 % Immature Granulocyte # (Auto) 0.05 K/uL Nucleated RBC Absolute Count (auto) 0.05 K/uL Nucleated Red Blood Cells % 0.6 % Sodium Level 137 mmol/L Potassium Level 2.6 mmol/L Chloride Level 105 mmol/L Carbon Dioxide Level 22 mmol/L Anion Gap 10.0 mmol/L Blood Urea Nitrogen 25 mg/dl Creatinine 1.88 mg/dl Est Creatinine Clear Calc Drug Dose 40.1 ml/min Estimated GFR () 37.0 Estimated GFR (Non- 31.9 BUN/Creatinine Ratio 13.2 Random Glucose 285 mg/dl Lactic Acid Level < 0.1 mmol/L Calcium Level 6.5 mg/dl Ionized Calcium 0.87 mmol/l Phosphorus Level 3.4 mg/dl Magnesium Level 1.7 mg/dl Total Bilirubin 0.3 mg/dl Aspartate Amino Transf (AST/SGOT) 22 U/L Alanine Aminotransferase (ALT/SGPT) 25 U/L Alkaline Phosphatase 87 U/L Total Protein 4.9 gm/dl Albumin 2.0 gm/dl Globulin 2.9 gm/dl Albumin/Globulin Ratio 0.7 Test 04/20/17 04:08 04/20/17 05:07 Bedside Glucose 274 mg/dl Prothrombin Time 9.8 SECONDS Prothromb Time International Ratio 0.9 Activated Partial Thromboplast Time 27.3 SECONDS Partial Thromboplastin Ratio 1.1 Sodium Level 135 mmol/L Potassium Level 2.8 mmol/L Chloride Level 104 mmol/L Carbon Dioxide Level 23 mmol/L Anion Gap 8.0 mmol/L Blood Urea Nitrogen 25 mg/dl Creatinine 1.93 mg/dl Est Creatinine Clear Calc Drug Dose 39.1 ml/min Estimated GFR () 35.8 Estimated GFR (Non- 30.9 BUN/Creatinine Ratio 12.9 Random Glucose 268 mg/dl Calcium Level 7.8 mg/dl Ionized Calcium 1.09 mmol/l Phosphorus Level 3.1 mg/dl Magnesium Level 2.2 mg/dl Total Bilirubin 0.5 mg/dl Aspartate Amino Transf (AST/SGOT) 24 U/L Alanine Aminotransferase (ALT/SGPT) 24 U/L Alkaline Phosphatase 87 U/L Total Creatine Kinase 51 U/L Total Protein 5.4 gm/dl Albumin 2.2 gm/dl Globulin 3.2 gm/dl Albumin/Globulin Ratio 0.7 Amylase Level 56 U/L Lipase 516 U/L Random Vancomycin Level 28.3 mcg/ml Date/Time Source Procedure Growth Status 04/19/17 20:30 Stool C.difficile Toxin B Gene (PCR) - Final Positive for C. difficile toxin B gene Complete Assessment & Plan significant acidosis-required dialysis to help correct. acidosis has improved. no dialysis indicated at this time. ok to remove temporary dialysis catheter. hypokalemia-pt had a total body potassium deficit which was revealed as we corrected the acidosis. continue to aggressively replete. giving 40 through ng and additional 40 iv. hypocalcemia-calcium levels were low with the bicarb administration and slowly improving as well. to give an additional 2 grams this morning.
[2017-04-20] MEDS ORDERED: POTASSIUM CHLR 20 MEQ / WTR 40 MEQ in PREMIXED WATER 100 ML IV ONE (07:15)
[2017-04-20] MEDS: INSULIN ASPART 100 UNITS/ML 3 ML PEN SC SCH ×4 (07:41→20:58)
--- NOTE | 2017-04-20 07:54 | DIAGNOSTIC IMAGING REPORT ---
CHEST ONE VIEW PORTABLE HISTORY: intubation COMPARISON: Chest 04/19/2017. FINDINGS: The endotracheal tube terminates 3.2 cm from the yumi. Nasogastric tube terminates in the fundus of the stomach. This is unchanged. No pleural effusions. No pneumothorax. The heart is mildly enlarged. There is developing mild pulmonary edema. Small patchy airspace opacities within the left upper lobe. This is new from the prior study. IMPRESSION: 1. Satisfactory support line placement. 2. Developing mild pulmonary edema. 3. Small patchy space opacities within the left upper lobe which could be due to the pulmonary edema or a developing pneumonia. Continued follow up is recommended to ensure resolution. Electronically signed by: Bennie Sung M.D. 04/20/2017 7:53 AM Dictated Date/Time: 04/20/2017 7:50 AM
[2017-04-20] MEDS ORDERED: CALCIUM GLUCONATE 10% 2,000 MG in SODIUM CHLORIDE 0.9% 50ML 50 ML IV ONE (08:00)
[2017-04-20] MEDS: POTASSIUM CHLR 10MEQ / WTR IV SCH ×4 (08:24→11:14)
[2017-04-20] MEDS: PROPRANOLOL HCL 80 MG TAB PO SCH ×2 (08:26→20:18)
[2017-04-20] MEDS: AMLODIPINE BESYLATE 5 MG TAB PO SCH (08:26)
[2017-04-20] MEDS: FIDAXOMICIN TAB 200 MG TAB PO SCH (08:40)
[2017-04-20] MEDS: SODIUM CHLOR 0.45% + 20MEQ KCL 1,000 ML IV SCH ×2 (10:15→20:18)
--- NOTE | 2017-04-20 10:38 | Medical Consult ---
Consultation Date of Consultation: Apr 20, 2017. Attending Physician: Marychuy Riley M.D. Reason for Consultation: Dificid ordered History of Present Illness 42-year-old female well known to the Infectious Disease service with history of longstanding diabetes mellitus, multiple episodes of DKA, prior episode of severe C difficile infection requiring colectomy, axillary infection from hidradenitis with sepsis, who was brought to the hospital with several days of weakness, dizziness, and fatigue. Was found to have evidence of DKA sepsis and quickly developed hypotension and respiratory distress with acidosis requiring intubation. She was found to have positive C difficile PCR. Procalcitonin elevated. She was started empirically on vancomycin and Zosyn, and Dificid was ordered this morning when PCR returned positive. Blood cultures have been negative. MRSA screen negative. No obvious pneumonia on chest x-ray. Patient underwent emergent dialysis with significant improvement in her metabolic acidosis. She was able to be extubated this morning. No obvious recurrence of severe hidradenitis, no other obvious sources of infection. Past Medical/Surgical History Medical Problems: (1) Abdominal pain Status: Acute (2) Confusion Status: Acute (3) Constipation Status: Acute (4) Dehydration Status: Acute (5) Dehydration Status: Acute (6) Hyperammonemia Status: Acute (7) Pneumonia Status: Acute Medical Problems: (1) Acute kidney injury (2) Clostridium difficile colitis (3) Colostomy (4) DKA (diabetic ketoacidoses) (5) Lumbar Disc Displacement (6) Pneumonia (7) Sepsis Family History Diabetes mellitus Heart disease Social History Smoking Status: Current Every Day Smoker (1/2 ppd ) Drug Use: none Marital Status: Housing Status: lives with family Occupation Status: employed Allergies Coded Allergies: BEE STING (Verified Allergy, Intermediate, RED, SHORT OF BREATH, 04/17/17) Current Inpatient Medications Current Inpatient Medications Medications (Trade) Dose Ordered Sig/Yudy Route Start Time Stop Time Status Last Admin Dose Admin Glucose (Glucose 40% Gel) UD PRN PO 04/17/17 15:00 05/17/17 14:59 Glucose (Glucose Chew Tab) 1 tabs UD PRN PO 04/17/17 15:00 05/17/17 14:59 Dextrose (Dextrose 50% 50ML Syringe) 50 ml UD PRN IV 04/17/17 15:00 05/17/17 14:59 Glucagon (Glucagon Inj) 1 mg UD PRN SQ 04/17/17 15:00 05/17/17 14:59 Insulin Aspart (novoLOG ASPART) [facility]IDING [facility] 04/17/17 17:30 05/17/17 18:59 Miscellaneous Information (Consult Glycemic Management Pharmacy) 1 ea UD PRN N/A 04/17/17 15:45 05/17/17 15:44 Heparin Sodium (Porcine) (Heparin Sq 5000 Unit/0.5ml) 5,000 unit Q8 SQ 04/17/17 22:00 05/17/17 21:59 04/20/17 06:00 5,000 UNIT Acetaminophen (Tylenol Tab) 650 mg Q4H PRN PO 04/17/17 16:00 05/17/17 15:59 Ondansetron HCl (Zofran Inj) 4 mg Q6H PRN IV 04/17/17 16:00 05/17/17 15:59 Albuterol (Ventolin Hfa Inhaler) 2 puffs Q4H PRN INH 04/17/17 16:15 05/17/17 16:14 Amlodipine Besylate (Norvasc Tab) 5 mg QAM PO 04/18/17 09:00 05/18/17 08:59 04/20/17 08:26 5 MG Atorvastatin Calcium (Lipitor Tab) 10 mg DAILY PO 04/18/17 09:00 05/18/17 08:59 Future Hold Duloxetine HCl (Cymbalta Cap) 60 mg QPM PO 04/17/17 21:00 05/17/17 20:59 Future Hold 04/17/17 20:52 60 MG Pregabalin (Lyrica Cap) 50 mg QPM PO 04/17/17 21:00 05/17/17 20:59 Future Hold 04/17/17 20:55 50 MG Topiramate (Topamax Tab) 75 mg QPM PO 04/18/17 21:00 05/18/17 20:59 Future Hold Vancomycin HCl (Consult) 1 ea UD PRN N/A 04/17/17 16:27 05/17/17 16:26 Famotidine 20 mg/ Syringe 5 ml @ 2.5 mls/min Q12H IV 04/17/17 18:00 05/17/17 17:59 04/20/17 06:00 2.5 MLS/MIN Insulin Human Regular 250 units/ Sodium Chloride 252.5 ml @ 0 mls/hr Q24H IV 04/18/17 15:00 05/18/17 14:59 04/19/17 14:53 1.7 MLS/HR Vancomycin HCl 1250 mg/Sodium Chloride 275 ml @ 125 mls/hr Q28H IV 04/18/17 18:00 04/28/17 17:59 04/19/17 21:42 125 MLS/HR Piperacillin Sod/ Tazobactam Sod (Consult) 1 ea UD PRN N/A 04/19/17 07:15 05/19/17 07:14 Fentanyl Citrate (Fentanyl Inj) 50 mcg Q1H PRN IV 04/19/17 08:30 05/03/17 08:29 04/20/17 04:40 50 MCG Propofol (Diprivan Iv Emulsion 100ml Vial) 1 dose UD PRN IV 04/19/17 08:16 04/22/17 08:15 04/20/17 04:57 1 DOSE Propranolol HCl (Inderal Tab) 120 mg BID PO 04/19/17 09:37 05/19/17 09:36 04/20/17 08:26 120 MG Piperacillin Sod/ Tazobactam Sod 3.375 gm/Dextrose 115 ml @ 28.75 mls/ hr Q12H IV 04/20/17 00:00 04/30/17 00:00 04/20/17 00:10 28.75 MLS/HR Fidaxomicin (Dificid Tab) 200 mg BID PO 04/19/17 23:15 04/29/17 23:14 04/20/17 08:40 200 MG Potassium Chloride 10 meq/ Prmx 100 ml @ 100 mls/hr Q1H IV 04/20/17 08:00 04/20/17 11:59 04/20/17 10:15 100 MLS/HR Potassium Chloride/Sodium Chloride 1,000 ml @ 100 mls/hr Q10H IV 04/20/17 10:00 05/20/17 08:14 04/20/17 10:15 100 MLS/HR Review of Systems All systems were reviewed and are negative except as per HPI Physical Exam Date Time Temp Pulse Resp B/P (MAP) Pulse Ox O2 Delivery O2 Flow Rate FiO2 04/20/17 10:00 75 19 155/82 (106) 98 Nasal Cannula 3.0 167/77 (107) 04/20/17 09:50 37.3 77 17 (115) 100 175/80 04/20/17 09:45 37.3 76 15 (118) 99 178/83 04/20/17 09:40 37.2 80 9 (138) 100 194/88 04/20/17 09:35 37.2 76 13 (122) 100 191/85 04/20/17 09:33 37.2 65 22 139/99 (108) 99 171/85 04/20/17 09:30 37.2 74 20 (112) 100 168/80 04/20/17 09:25 37.2 74 20 (111) 100 167/80 04/20/17 09:20 37.1 73 19 (105) 100 161/75 04/20/17 09:15 37.1 73 19 (104) 100 158/75 04/20/17 09:14 28 04/20/17 09:10 37.1 73 18 (97) 100 149/69 04/20/17 08:00 36.8 76 19 123/73 (90) 100 CPAP 28 150/65 (93) Mechanical Ventilator 04/20/17 08:00 100 Mechanical Ventilator 28 04/20/17 08:00 28 04/20/17 07:52 28 04/20/17 06:00 76 20 122/54 (76) 100 Mechanical Ventilator 28 04/20/17 05:32 28 04/20/17 05:31 30 04/20/17 04:00 30 04/20/17 04:00 100 Mechanical Ventilator 30 04/20/17 04:00 37.6 81 20 156/72 (100) 100 Mechanical Ventilator 30 04/20/17 02:00 82 20 158/71 (100) 100 Mechanical Ventilator 30 04/20/17 01:53 30 04/20/17 00:01 37.6 82 20 126/55 (78) 100 Mechanical Ventilator 30 04/19/17 23:59 30 04/19/17 23:59 100 Mechanical Ventilator 30 04/19/17 23:24 30 04/19/17 22:00 37.7 81 20 134/65 (88) 100 Mechanical Ventilator 30 04/19/17 20:19 30 04/19/17 20:00 100 Mechanical Ventilator 30 04/19/17 20:00 30 04/19/17 20:00 37.7 101 20 152/71 (98) 100 Mechanical Ventilator 30 04/19/17 18:00 37.6 106 22 113/68 (83) 100 Mechanical Ventilator 30 122/54 (76) 04/19/17 17:13 30 04/19/17 17:00 40 04/19/17 16:00 100 Mechanical Ventilator 40 04/19/17 16:00 37.0 102 24 119/70 (86) 100 Mechanical Ventilator 40 149/79 (102) 04/19/17 16:00 24 04/19/17 14:30 40 04/19/17 14:25 40 04/19/17 14:00 101 30 131/59 (83) 100 Mechanical Ventilator 40 04/19/17 13:57 36.9 101 113/57 (75) 04/19/17 13:00 103 124/54 04/19/17 12:45 106 108/61 04/19/17 12:30 104 152/63 04/19/17 12:15 105 141/64 04/19/17 12:00 105 112/61 04/19/17 12:00 100 Mechanical Ventilator 40 04/19/17 12:00 50 04/19/17 12:00 37.0 105 27 152/63 (92) 100 Mechanical Ventilator 40 04/19/17 11:45 102 115/60 04/19/17 11:30 101 92/55 04/19/17 11:20 40 04/19/17 11:15 100 129/66 04/19/17 11:00 100 116/60 04/19/17 10:45 97 133/61 General Appearance: WD/WN, no apparent distress, + obese Head: normocephalic, atraumatic Eyes: normal inspection, EOMI, sclerae normal ENT: normal ENT inspection, pharynx normal Neck: supple, no adenopathy, thyroid normal, trachea midline Respiratory/Chest: chest non-tender, lungs clear, normal breath sounds, no respiratory distress Cardiovascular: regular rate, rhythm, no gallop, no murmur Abdomen/GI: normal bowel sounds, non tender, soft, no organomegaly Back: normal inspection, no CVA tenderness Extremities/Musculoskelatal: no calf tenderness, normal capillary refill Neurologic/Psych: oriented x 3, + pertinent finding (Somewhat lethargic) Skin: normal color, warm/dry, no rash, + pertinent finding ( areas of hidradenitis left axilla) Lymphatic: no adenopathy Laboratory Results RUN DATE: 04/19/17 [facility] PAGE 1 RUN TIME: 2232 Specimen Inquiry PATIENT: AMBIKA CORCORAN LOC: [facility] U # : [id number] AGE/SX: 42/F ROOM: E102 REG : 04/17/[address]: Marychuy Riley M.D. : 1975 BED: 1 DIS : STATUS: ADM IN TLOC: SPEC #: [id number] JOHAN: 04/19/17 STATUS: COMP REQ #: [id number] RECD: 04/19/[address]: Marychuy Riley M.D. SOURCE: STOOL ENTR: 04/19/[address] [facility] [address]: Mark Hassan M.D. SPDESC: Sherrell Porter P.A.-C. Oncu, Kerim I., Julio Cesar Forbes MD Roscoe, Brandon M. M.D. Vangala, Roque K. , MD ORDERED: CDIFF TOXIN B COMMENTS: Has Specimen Been Obtained/Collected? Y I have reviewed the C. diff order recommendations Y Procedure Result Verified Site CDIFF TOXIN B GENE*(2 YR OR >) Final 04/19/17-2232 Positive for C. difficile toxin B gene RESULTS WERE ALSO CALLED TO [facility] INFECTION CONTROL ANSWERING MACHINE ON 04/19/17 BY DIMITRI. Last 24 Hours Test 04/19/17 11:13 04/19/17 12:49 04/19/17 13:58 04/19/17 14:00 Bedside Glucose 148 mg/dl 147 mg/dl 166 mg/dl White Blood Count 9.24 K/uL Red Blood Count 3.87 M/uL Hemoglobin 10.2 g/dL Hematocrit 28.9 % Mean Corpuscular Volume 74.7 fL Mean Corpuscular Hemoglobin 26.4 pg Mean Corpuscular Hemoglobin Concent 35.3 g/dl Platelet Count 249 K/uL Mean Platelet Volume 9.8 fL Neutrophils (%) (Auto) 79.2 % Lymphocytes (%) (Auto) 9.0 % Monocytes (%) (Auto) 10.4 % Eosinophils (%) (Auto) 0.4 % Basophils (%) (Auto) 0.2 % Neutrophils # (Auto) 7.32 K/uL Lymphocytes # (Auto) 0.83 K/uL Monocytes # (Auto) 0.96 K/uL Eosinophils # (Auto) 0.04 K/uL Basophils # (Auto) 0.02 K/uL RDW Standard Deviation 43.5 fL RDW Coefficient of Variation 16.1 % Immature Granulocyte % (Auto) 0.8 % Immature Granulocyte # (Auto) 0.07 K/uL Nucleated RBC Absolute Count (auto) 0.10 K/uL Nucleated Red Blood Cells % 1.0 % Sodium Level 136 mmol/L Potassium Level 2.5 mmol/L Chloride Level 101 mmol/L Carbon Dioxide Level 17 mmol/L Anion Gap 19.0 mmol/L Blood Urea Nitrogen 22 mg/dl Creatinine 1.21 mg/dl Est Creatinine Clear Calc Drug Dose 62.4 ml/min Estimated GFR () 63.0 Estimated GFR (Non- 54.4 BUN/Creatinine Ratio 18.4 Random Glucose 187 mg/dl Calcium Level 6.5 mg/dl Ionized Calcium 0.88 mmol/l Phosphorus Level 1.2 mg/dl Magnesium Level 1.7 mg/dl Total Bilirubin 0.6 mg/dl Aspartate Amino Transf (AST/SGOT) 30 U/L Alanine Aminotransferase (ALT/SGPT) 23 U/L Alkaline Phosphatase 95 U/L Total Protein 5.1 gm/dl Albumin 2.1 gm/dl Globulin 3.0 gm/dl Albumin/Globulin Ratio 0.7 Test 04/19/17 14:05 04/19/17 14:49 04/19/17 15:48 04/19/17 16:50 Lactic Acid Level mmol/L Bedside Glucose 197 mg/dl 218 mg/dl 239 mg/dl Test 04/19/17 17:50 04/19/17 19:03 04/19/17 20:00 04/19/17 20:05 Bedside Glucose 251 mg/dl 263 mg/dl 289 mg/dl Sodium Level 136 mmol/L Potassium Level 2.5 mmol/L Chloride Level 101 mmol/L Carbon Dioxide Level 22 mmol/L Anion Gap 14.0 mmol/L Blood Urea Nitrogen 25 mg/dl Creatinine 1.78 mg/dl Est Creatinine Clear Calc Drug Dose 42.4 ml/min Estimated GFR () 39.5 Estimated GFR (Non- 34.1 BUN/Creatinine Ratio 13.8 Random Glucose 286 mg/dl Calcium Level 7.4 mg/dl Ionized Calcium 1.02 mmol/l Phosphorus Level 4.2 mg/dl Magnesium Level 1.9 mg/dl Total Bilirubin 0.4 mg/dl Aspartate Amino Transf (AST/SGOT) 25 U/L Alanine Aminotransferase (ALT/SGPT) 22 U/L Alkaline Phosphatase 92 U/L Total Protein 5.1 gm/dl Albumin 2.1 gm/dl Globulin 3.0 gm/dl Albumin/Globulin Ratio 0.7 Triglycerides Level 1456 mg/dl Cholesterol Level 293 mg/dl HDL Cholesterol 20 mg/dl LDL Cholesterol, Calculated mg/dl VLDL Cholesterol, Calculated mg/dl Cholesterol/HDL Ratio 14.7 Test 04/19/17 21:13 04/19/17 22:14 04/19/17 23:02 04/20/17 00:14 Bedside Glucose 235 mg/dl 304 mg/dl 294 mg/dl 252 mg/dl Test 04/20/17 00:55 04/20/17 01:34 04/20/17 01:59 04/20/17 02:58 Bedside Glucose 289 mg/dl 274 mg/dl 287 mg/dl White Blood Count 8.22 K/uL Red Blood Count 3.41 M/uL Hemoglobin 9.0 g/dL Hematocrit 25.6 % Mean Corpuscular Volume 75.1 fL Mean Corpuscular Hemoglobin 26.4 pg Mean Corpuscular Hemoglobin Concent 35.2 g/dl Platelet Count 217 K/uL Mean Platelet Volume 8.9 fL Neutrophils (%) (Auto) 76.6 % Lymphocytes (%) (Auto) 12.7 % Monocytes (%) (Auto) 9.0 % Eosinophils (%) (Auto) 0.9 % Basophils (%) (Auto) 0.2 % Neutrophils # (Auto) 6.30 K/uL Lymphocytes # (Auto) 1.04 K/uL Monocytes # (Auto) 0.74 K/uL Eosinophils # (Auto) 0.07 K/uL Basophils # (Auto) 0.02 K/uL RDW Standard Deviation 44.5 fL RDW Coefficient of Variation 16.3 % Immature Granulocyte % (Auto) 0.6 % Immature Granulocyte # (Auto) 0.05 K/uL Nucleated RBC Absolute Count (auto) 0.05 K/uL Nucleated Red Blood Cells % 0.6 % Sodium Level 137 mmol/L Potassium Level 2.6 mmol/L Chloride Level 105 mmol/L Carbon Dioxide Level 22 mmol/L Anion Gap 10.0 mmol/L Blood Urea Nitrogen 25 mg/dl Creatinine 1.88 mg/dl Est Creatinine Clear Calc Drug Dose 40.1 ml/min Estimated GFR () 37.0 Estimated GFR (Non- 31.9 BUN/Creatinine Ratio 13.2 Random Glucose 285 mg/dl Lactic Acid Level < 0.1 mmol/L Calcium Level 6.5 mg/dl Ionized Calcium 0.87 mmol/l Phosphorus Level 3.4 mg/dl Magnesium Level 1.7 mg/dl Total Bilirubin 0.3 mg/dl Aspartate Amino Transf (AST/SGOT) 22 U/L Alanine Aminotransferase (ALT/SGPT) 25 U/L Alkaline Phosphatase 87 U/L Total Protein 4.9 gm/dl Albumin 2.0 gm/dl Globulin 2.9 gm/dl Albumin/Globulin Ratio 0.7 Test 04/20/17 04:08 04/20/17 05:07 Bedside Glucose 274 mg/dl Prothrombin Time 9.8 SECONDS Prothromb Time International Ratio 0.9 Activated Partial Thromboplast Time 27.3 SECONDS Partial Thromboplastin Ratio 1.1 Sodium Level 135 mmol/L Potassium Level 2.8 mmol/L Chloride Level 104 mmol/L Carbon Dioxide Level 23 mmol/L Anion Gap 8.0 mmol/L Blood Urea Nitrogen 25 mg/dl Creatinine 1.93 mg/dl Est Creatinine Clear Calc Drug Dose 39.1 ml/min Estimated GFR () 35.8 Estimated GFR (Non- 30.9 BUN/Creatinine Ratio 12.9 Random Glucose 268 mg/dl Calcium Level 7.8 mg/dl Ionized Calcium 1.09 mmol/l Phosphorus Level 3.1 mg/dl Magnesium Level 2.2 mg/dl Total Bilirubin 0.5 mg/dl Aspartate Amino Transf (AST/SGOT) 24 U/L Alanine Aminotransferase (ALT/SGPT) 24 U/L Alkaline Phosphatase 87 U/L Total Creatine Kinase 51 U/L Total Protein 5.4 gm/dl Albumin 2.2 gm/dl Globulin 3.2 gm/dl Albumin/Globulin Ratio 0.7 Amylase Level 56 U/L Lipase 516 U/L Procalcitonin 6.09 ng/ml Random Vancomycin Level 28.3 mcg/ml CHEST ONE VIEW PORTABLE HISTORY: intubation COMPARISON: Chest 04/19/2017. FINDINGS: The endotracheal tube terminates 3.2 cm from the yumi. Nasogastric tube terminates in the fundus of the stomach. This is unchanged. No pleural effusions. No pneumothorax. The heart is mildly enlarged. There is developing mild pulmonary edema. Small patchy airspace opacities within the left upper lobe. This is new from the prior study. IMPRESSION: 1. Satisfactory support line placement. 2. Developing mild pulmonary edema. 3. Small patchy space opacities within the left upper lobe which could be due to the pulmonary edema or a developing pneumonia. Continued follow up is recommended to ensure resolution. Electronically signed by: Bennie Sung M.D. 04/20/2017 7:53 AM Dictated Date/Time: 04/20/2017 7:50 AM Assessment & Plan 42-year-old female with diabetes with prior episodes of sepsis, severe C difficile status post colectomy, and hidradenitis, who presents with evidence of sepsis with possible septic shock, with positive PCR for C diff. Not clear whether patient is carrier of C difficile or whether she may have active infection of residual colon or small bowel. For now, would recommend treatment with current IV antibiotics, and continue patient on vancomycin for potential of C difficile infection. Length of IV antibiotics will be determined by clinical response and results of cultures. Will follow. Case discussed with Critical Care Service.
--- NOTE | 2017-04-20 11:13 | Critical Care Progress Note ---
Critical Care Progress Note Date of Service Apr 20, 2017. Attending Dr. Vences Subjective Extubated this AM HD catheter removed Less confused today Objective General: Obese female, mildly lethargic now, comfortable Heent: NC/AT Lungs: coarse breath sounds b/l CVS:S1S2 reg Abd: obese, soft Ext: trace pedal edema. 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 Comfortable so far Oxygenation was excellent Less tachypneic now that the metabolic acidosis is nearly corrected CVS: Continue IV fluids, on /2 NS at 100 ml/hr No need for pressor support Renal/metabolic: Acidosis improved remarkably after one session of HD yesterday. No further need for HD, catheter removed Off bicarb drip Aggressive correction of hyperkalemia. It was being driven down by the insulin drip, bicarb drip an correction of acidosis Anion gap normalized Keep Cheng catheter Ammonia level improved Endo: DKA resolved. Continue insulin drip for better glucose control now, no need for D5 infusion ID: Likely bacterial infection, unclear source. Procalcitonin quite elevated, improving C-diff positive. 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 Plus, she improved without any C-diff specific treatment Keep on vanco PO for now while on broad spectrum Abx Continue Vancomycin, Cefepime escalated to Zosyn Follow up cultures GI: NPO for now Has significant hepatic steatosis Ammonia level decreased significantly Elevated TG. Propofol was discontinued, but I don't think it was propofol related, it was just started yesterday. Probably the cause of her fatty liver infiltration. To be repeated and eventually treated. Probably has a component of pancreatitis as well, driven by high triglycerides, which in turn made could have led to DKA. The insulin drip is also effective for hypertriglyceridemia DVT prophylaxis: SC heparin Critical care time spent with patient, , reviewing chart, discussing with consultants, excluding procedures, greater than 50 minutes Consults & Procedures Consultants: Nephrology - Dr Oncu Procedures: Intubation 04/19/17 Right femoral dual-lumen HD catheter - 04/19/17 Left femoral artery a-line - 04/19/17 Extubation 04/20/17 Data Medications: Current Inpatient Medications Medications (Trade) Dose Ordered Sig/Yudy Route Start Time Stop Time Status Last Admin Dose Admin Glucose (Glucose 40% Gel) UD PRN PO 04/17/17 15:00 05/17/17 14:59 Glucose (Glucose Chew Tab) 1 tabs UD PRN PO 04/17/17 15:00 05/17/17 14:59 Dextrose (Dextrose 50% 50ML Syringe) 50 ml UD PRN IV 04/17/17 15:00 05/17/17 14:59 Glucagon (Glucagon Inj) 1 mg UD PRN SQ 04/17/17 15:00 05/17/17 14:59 Insulin Aspart (novoLOG ASPART) SLIDING SCALE PCHS SC 04/17/17 17:30 05/17/17 18:59 Miscellaneous Information (Consult Glycemic Management Pharmacy) 1 ea UD PRN N/A 04/17/17 15:45 05/17/17 15:44 Heparin Sodium (Porcine) (Heparin Sq 5000 Unit/0.5ml) 5,000 unit Q8 SQ 04/17/17 22:00 05/17/17 21:59 04/20/17 06:00 5,000 UNIT Acetaminophen (Tylenol Tab) 650 mg Q4H PRN PO 04/17/17 16:00 05/17/17 15:59 Ondansetron HCl (Zofran Inj) 4 mg Q6H PRN IV 04/17/17 16:00 05/17/17 15:59 Albuterol (Ventolin Hfa Inhaler) 2 puffs Q4H PRN INH 04/17/17 16:15 05/17/17 16:14 Amlodipine Besylate (Norvasc Tab) 5 mg QAM PO 04/18/17 09:00 05/18/17 08:59 04/20/17 08:26 5 MG Atorvastatin Calcium (Lipitor Tab) 10 mg DAILY PO 04/18/17 09:00 05/18/17 08:59 Future Hold Duloxetine HCl (Cymbalta Cap) 60 mg QPM PO 04/17/17 21:00 2/7/18 20:59 Future Hold 04/17/17 20:52 60 MG Pregabalin (Lyrica Cap) 50 mg QPM PO 04/17/17 21:00 05/17/17 20:59 Future Hold 04/17/17 20:55 50 MG Topiramate (Topamax Tab) 75 mg QPM PO 04/18/17 21:00 05/18/17 20:59 Future Hold Vancomycin HCl (Consult) 1 ea UD PRN N/A 04/17/17 16:27 05/17/17 16:26 Famotidine 20 mg/ Syringe 5 ml @ 2.5 mls/min Q12H IV 04/17/17 18:00 05/17/17 17:59 04/20/17 06:00 2.5 MLS/MIN Insulin Human Regular 250 units/ Sodium Chloride 252.5 ml @ 0 mls/hr Q24H IV 04/18/17 15:00 05/18/17 14:59 04/19/17 14:53 1.7 MLS/HR Vancomycin HCl 1250 mg/Sodium Chloride 275 ml @ 125 mls/hr Q28H IV 04/18/17 18:00 04/28/17 17:59 04/19/17 21:42 125 MLS/HR Piperacillin Sod/ Tazobactam Sod (Consult) 1 ea UD PRN N/A 04/19/17 07:15 05/19/17 07:14 Fentanyl Citrate (Fentanyl Inj) 50 mcg Q1H PRN IV 04/19/17 08:30 05/03/17 08:29 04/20/17 04:40 50 MCG Propofol (Diprivan Iv Emulsion 100ml Vial) 1 dose UD PRN IV 04/19/17 08:16 04/22/17 08:15 04/20/17 04:57 1 DOSE Propranolol HCl (Inderal Tab) 120 mg BID PO 04/19/17 09:37 05/19/17 09:36 04/20/17 08:26 120 MG Piperacillin Sod/ Tazobactam Sod 3.375 gm/Dextrose 115 ml @ 28.75 mls/ hr Q12H IV 04/20/17 00:00 04/30/17 00:00 04/20/17 00:10 28.75 MLS/HR Fidaxomicin (Dificid Tab) 200 mg BID PO 04/19/17 23:15 04/29/17 23:14 04/20/17 08:40 200 MG Potassium Chloride 10 meq/ Prmx 100 ml @ 100 mls/hr Q1H IV 04/20/17 08:00 04/20/17 11:59 04/20/17 10:15 100 MLS/HR Potassium Chloride/Sodium Chloride 1,000 ml @ 100 mls/hr Q10H IV 04/20/17 10:00 05/20/17 08:14 04/20/17 10:15 100 MLS/HR Vital Signs: Date Time Temp Pulse Resp B/P (MAP) Pulse Ox O2 Delivery O2 Flow Rate FiO2 04/20/17 10:00 75 19 155/82 (106) 98 Nasal Cannula 3.0 167/77 (107) 04/20/17 09:50 37.3 77 17 (115) 100 175/80 04/20/17 09:45 37.3 76 15 (118) 99 178/83 04/20/17 09:40 37.2 80 9 (138) 100 194/88 04/20/17 09:35 37.2 76 13 (122) 100 191/85 04/20/17 09:33 37.2 65 22 139/99 (108) 99 171/85 04/20/17 09:30 37.2 74 20 (112) 100 168/80 04/20/17 09:25 37.2 74 20 (111) 100 167/80 04/20/17 09:20 37.1 73 19 (105) 100 161/75 04/20/17 09:15 37.1 73 19 (104) 100 158/75 04/20/17 09:14 28 04/20/17 09:10 37.1 73 18 (97) 100 149/69 04/20/17 08:00 36.8 76 19 123/73 (90) 100 CPAP 28 150/65 (93) Mechanical Ventilator 04/20/17 08:00 100 Mechanical Ventilator 28 04/20/17 08:00 28 04/20/17 07:52 28 04/20/17 06:00 76 20 122/54 (76) 100 Mechanical Ventilator 28 04/20/17 05:32 28 04/20/17 05:31 30 04/20/17 04:00 30 04/20/17 04:00 100 Mechanical Ventilator 30 04/20/17 04:00 37.6 81 20 156/72 (100) 100 Mechanical Ventilator 30 04/20/17 02:00 82 20 158/71 (100) 100 Mechanical Ventilator 30 04/20/17 01:53 30 04/20/17 00:01 37.6 82 20 126/55 (78) 100 Mechanical Ventilator 30 04/19/17 23:59 30 04/19/17 23:59 100 Mechanical Ventilator 30 04/19/17 23:24 30 04/19/17 22:00 37.7 81 20 134/65 (88) 100 Mechanical Ventilator 30 04/19/17 20:19 30 04/19/17 20:00 100 Mechanical Ventilator 30 04/19/17 20:00 30 04/19/17 20:00 37.7 101 20 152/71 (98) 100 Mechanical Ventilator 30 04/19/17 18:00 37.6 106 22 113/68 (83) 100 Mechanical Ventilator 30 122/54 (76) 04/19/17 17:13 30 04/19/17 17:00 40 04/19/17 16:00 100 Mechanical Ventilator 40 04/19/17 16:00 37.0 102 24 119/70 (86) 100 Mechanical Ventilator 40 149/79 (102) 04/19/17 16:00 24 04/19/17 14:30 40 04/19/17 14:25 40 04/19/17 14:00 101 30 131/59 (83) 100 Mechanical Ventilator 40 04/19/17 13:57 36.9 101 113/57 (75) 04/19/17 13:00 103 124/54 04/19/17 12:45 106 108/61 04/19/17 12:30 104 152/63 04/19/17 12:15 105 141/64 04/19/17 12:00 105 112/61 04/19/17 12:00 100 Mechanical Ventilator 40 04/19/17 12:00 50 04/19/17 12:00 37.0 105 27 152/63 (92) 100 Mechanical Ventilator 40 04/19/17 11:45 102 115/60 04/19/17 11:30 101 92/55 04/19/17 11:20 40 04/19/17 11:15 100 129/66 04/19/17 11:00 100 116/60 Laboratory Results: Last 24 Hours Test 04/19/17 11:13 04/19/17 12:49 04/19/17 13:58 04/19/17 14:00 Bedside Glucose 148 mg/dl 147 mg/dl 166 mg/dl White Blood Count 9.24 K/uL Red Blood Count 3.87 M/uL Hemoglobin 10.2 g/dL Hematocrit 28.9 % Mean Corpuscular Volume 74.7 fL Mean Corpuscular Hemoglobin 26.4 pg Mean Corpuscular Hemoglobin Concent 35.3 g/dl Platelet Count 249 K/uL Mean Platelet Volume 9.8 fL Neutrophils (%) (Auto) 79.2 % Lymphocytes (%) (Auto) 9.0 % Monocytes (%) (Auto) 10.4 % Eosinophils (%) (Auto) 0.4 % Basophils (%) (Auto) 0.2 % Neutrophils # (Auto) 7.32 K/uL Lymphocytes # (Auto) 0.83 K/uL Monocytes # (Auto) 0.96 K/uL Eosinophils # (Auto) 0.04 K/uL Basophils # (Auto) 0.02 K/uL RDW Standard Deviation 43.5 fL RDW Coefficient of Variation 16.1 % Immature Granulocyte % (Auto) 0.8 % Immature Granulocyte # (Auto) 0.07 K/uL Nucleated RBC Absolute Count (auto) 0.10 K/uL Nucleated Red Blood Cells % 1.0 % Sodium Level 136 mmol/L Potassium Level 2.5 mmol/L Chloride Level 101 mmol/L Carbon Dioxide Level 17 mmol/L Anion Gap 19.0 mmol/L Blood Urea Nitrogen 22 mg/dl Creatinine 1.21 mg/dl Est Creatinine Clear Calc Drug Dose 62.4 ml/min Estimated GFR () 63.0 Estimated GFR (Non- 54.4 BUN/Creatinine Ratio 18.4 Random Glucose 187 mg/dl Calcium Level 6.5 mg/dl Ionized Calcium 0.88 mmol/l Phosphorus Level 1.2 mg/dl Magnesium Level 1.7 mg/dl Total Bilirubin 0.6 mg/dl Aspartate Amino Transf (AST/SGOT) 30 U/L Alanine Aminotransferase (ALT/SGPT) 23 U/L Alkaline Phosphatase 95 U/L Total Protein 5.1 gm/dl Albumin 2.1 gm/dl Globulin 3.0 gm/dl Albumin/Globulin Ratio 0.7 Test 04/19/17 14:05 04/19/17 14:49 04/19/17 15:48 04/19/17 16:50 Lactic Acid Level mmol/L Bedside Glucose 197 mg/dl 218 mg/dl 239 mg/dl Test 04/19/17 17:50 04/19/17 19:03 04/19/17 20:00 04/19/17 20:05 Bedside Glucose 251 mg/dl 263 mg/dl 289 mg/dl Sodium Level 136 mmol/L Potassium Level 2.5 mmol/L Chloride Level 101 mmol/L Carbon Dioxide Level 22 mmol/L Anion Gap 14.0 mmol/L Blood Urea Nitrogen 25 mg/dl Creatinine 1.78 mg/dl Est Creatinine Clear Calc Drug Dose 42.4 ml/min Estimated GFR () 39.5 Estimated GFR (Non- 34.1 BUN/Creatinine Ratio 13.8 Random Glucose 286 mg/dl Calcium Level 7.4 mg/dl Ionized Calcium 1.02 mmol/l Phosphorus Level 4.2 mg/dl Magnesium Level 1.9 mg/dl Total Bilirubin 0.4 mg/dl Aspartate Amino Transf (AST/SGOT) 25 U/L Alanine Aminotransferase (ALT/SGPT) 22 U/L Alkaline Phosphatase 92 U/L Total Protein 5.1 gm/dl Albumin 2.1 gm/dl Globulin 3.0 gm/dl Albumin/Globulin Ratio 0.7 Triglycerides Level 1456 mg/dl Cholesterol Level 293 mg/dl HDL Cholesterol 20 mg/dl LDL Cholesterol, Calculated mg/dl VLDL Cholesterol, Calculated mg/dl Cholesterol/HDL Ratio 14.7 Test 04/19/17 21:13 04/19/17 22:14 04/19/17 23:02 04/20/17 00:14 Bedside Glucose 235 mg/dl 304 mg/dl 294 mg/dl 252 mg/dl Test 04/20/17 00:55 04/20/17 01:34 04/20/17 01:59 04/20/17 02:58 Bedside Glucose 289 mg/dl 274 mg/dl 287 mg/dl White Blood Count 8.22 K/uL Red Blood Count 3.41 M/uL Hemoglobin 9.0 g/dL Hematocrit 25.6 % Mean Corpuscular Volume 75.1 fL Mean Corpuscular Hemoglobin 26.4 pg Mean Corpuscular Hemoglobin Concent 35.2 g/dl Platelet Count 217 K/uL Mean Platelet Volume 8.9 fL Neutrophils (%) (Auto) 76.6 % Lymphocytes (%) (Auto) 12.7 % Monocytes (%) (Auto) 9.0 % Eosinophils (%) (Auto) 0.9 % Basophils (%) (Auto) 0.2 % Neutrophils # (Auto) 6.30 K/uL Lymphocytes # (Auto) 1.04 K/uL Monocytes # (Auto) 0.74 K/uL Eosinophils # (Auto) 0.07 K/uL Basophils # (Auto) 0.02 K/uL RDW Standard Deviation 44.5 fL RDW Coefficient of Variation 16.3 % Immature Granulocyte % (Auto) 0.6 % Immature Granulocyte # (Auto) 0.05 K/uL Nucleated RBC Absolute Count (auto) 0.05 K/uL Nucleated Red Blood Cells % 0.6 % Sodium Level 137 mmol/L Potassium Level 2.6 mmol/L Chloride Level 105 mmol/L Carbon Dioxide Level 22 mmol/L Anion Gap 10.0 mmol/L Blood Urea Nitrogen 25 mg/dl Creatinine 1.88 mg/dl Est Creatinine Clear Calc Drug Dose 40.1 ml/min Estimated GFR () 37.0 Estimated GFR (Non- 31.9 BUN/Creatinine Ratio 13.2 Random Glucose 285 mg/dl Lactic Acid Level < 0.1 mmol/L Calcium Level 6.5 mg/dl Ionized Calcium 0.87 mmol/l Phosphorus Level 3.4 mg/dl Magnesium Level 1.7 mg/dl Total Bilirubin 0.3 mg/dl Aspartate Amino Transf (AST/SGOT) 22 U/L Alanine Aminotransferase (ALT/SGPT) 25 U/L Alkaline Phosphatase 87 U/L Total Protein 4.9 gm/dl Albumin 2.0 gm/dl Globulin 2.9 gm/dl Albumin/Globulin Ratio 0.7 Test 04/20/17 04:08 04/20/17 05:07 Bedside Glucose 274 mg/dl Prothrombin Time 9.8 SECONDS Prothromb Time International Ratio 0.9 Activated Partial Thromboplast Time 27.3 SECONDS Partial Thromboplastin Ratio 1.1 Sodium Level 135 mmol/L Potassium Level 2.8 mmol/L Chloride Level 104 mmol/L Carbon Dioxide Level 23 mmol/L Anion Gap 8.0 mmol/L Blood Urea Nitrogen 25 mg/dl Creatinine 1.93 mg/dl Est Creatinine Clear Calc Drug Dose 39.1 ml/min Estimated GFR () 35.8 Estimated GFR (Non- 30.9 BUN/Creatinine Ratio 12.9 Random Glucose 268 mg/dl Calcium Level 7.8 mg/dl Ionized Calcium 1.09 mmol/l Phosphorus Level 3.1 mg/dl Magnesium Level 2.2 mg/dl Total Bilirubin 0.5 mg/dl Aspartate Amino Transf (AST/SGOT) 24 U/L Alanine Aminotransferase (ALT/SGPT) 24 U/L Alkaline Phosphatase 87 U/L Total Creatine Kinase 51 U/L Total Protein 5.4 gm/dl Albumin 2.2 gm/dl Globulin 3.2 gm/dl Albumin/Globulin Ratio 0.7 Amylase Level 56 U/L Lipase 516 U/L Procalcitonin 6.09 ng/ml Random Vancomycin Level 28.3 mcg/ml
[2017-04-20] MEDS: VANCOMYCIN HCL 250 MG/5 ML SOLN PO SCH ×3 (11:53→23:41)
[2017-04-20] MEDS: RASPBERRY SYRUP 5 ML UDP PO SCH ×3 (11:53→23:40)
--- NOTE | 2017-04-20 14:10 | Progress Note ---
Internal Med Progress Note Date of Service: Apr 20, 2017. Provider Documentation: SUBJECTIVE: extubated earlier today stable respiratory status wakes up to voice present at bedside OBJECTIVE: Vital Signs-as noted below Exam: General-sedated, wakes up easily to voice Eyes-sclera injected ENT-dry oral mucosa , NG tube present Neck-tranche midline , no thyromegaly Lungs-no rales or wheeze Heart-regular S1/S2 , no JVD, no lower ext edema Abdomen-soft, non tender Extremities-multiple scab wounds in different stages of healing in both arms and hands Neuro-arousable with verbal stimulus, moving all limbs , no focal deficit noted Lab data as noted below. ASSESSMENT & PLAN: RESPIRATORY FAILURE : due to severe metabolic acidosis required mechanical ventilation metabolic acidosis corrected with dialysis extubated earlier today , respiratory status remains stable TYPE 2 DM /POORLY COMPLIANT /DKA -has not been taking insulin for few days presents with DKA , severe metabolic acidosis , Hb A1c > 13 ( poorly controlled ) cont on IV Insulin GTT appreciate pharmacy input for glycemic management SEVERE METABOLIC ACIDOSIS : due to above corrected after dialysis presented with Hco3 9 /AG >16 ABG shows pH 7.06/co2 22/PO2 120/Hco3 6 lactic acid -wnl pt started on IV insulin infusion , IV Hco3 gtt s/p dialysis yesterday ,appreciate nephrology input LOW MG /LOW PHOS /Low k due to Hco3 gtt /on IV insulin gtt as well corrected \monitor lytes closely ACUTE KIDNEY INJURY IN SETTING OF CKD STAGE 3 hx of diabetic nephropathy , baseline cr approx ~1.3 Cr 1.9-> 2 ACEI /HCTZ kept on hold Nephrology following emergent dialysis done for severe metabolic acidosis renal function improved after HD adequate urine out put CONFUSION /LETHARGY : taken off sedation prior to extubation woke up able to answer questions metabolic encephalopathy due to above cont correction of acidosis /dehydration CT head -no acute change HYPERAMMONEMIA : ammonia level improved hepatic steatosis LFT's wnl , except for mild elevation of Alk phos no report of ETOH abuse CT abdomen /pelvis in 2016 noted to have fatty infiltration of liver recent EGD by Dr. Hassan in 2007 for epigastric pain. Endoscopy was normal and biopsies suggested reflux esophagitis at the GE junction. liver USG -no significant finding GI eval requested , appreciate input no GI intervention indicated , recommends continued correction of DKA , metabolic acidosis HYPERTRIGLYCERIDEMIA : TG Level > 1400 mild pancreatitis noted , Lipase 600-400 continue with IVF pt will need addition of fenofibrate when medically stable Leukocytosis: i -Likely 2/2 DKA/dehydration possible infection stool; for cdiff + ve ; on PO vancomycin -Empirically treated with vanc and cefepime -Blood cultures-negative -ID following H/o c diff: -s/p colectomy -stool + ve C diff _PO vancomycin ordered contact precaution DVT Ppx: Heparin SQ Code status: FULL DISPOSITION updated given to at bedside cont ICU monitoring Vital Signs: Date Time Temp Pulse Resp B/P (MAP) Pulse Ox O2 Delivery O2 Flow Rate FiO2 04/21/17 06:00 92 17 175/83 (113) 95 Room Air 04/21/17 04:00 96 Room Air 04/21/17 04:00 36.9 90 22 174/77 (109) 96 Room Air 04/21/17 02:00 96 22 172/91 (118) 96 Room Air 04/21/17 00:01 36.8 96 20 150/75 (100) 96 Room Air 04/20/17 23:59 96 Room Air 04/20/17 22:00 95 26 182/79 (113) 95 Room Air 04/20/17 20:00 98 Room Air 04/20/17 20:00 36.8 99 22 214/88 (130) 98 Room Air 04/20/17 18:00 96 25 195/110 (138) 97 Room Air 208/96 (133) 04/20/17 16:00 36.6 97 19 178/106 (130) 98 Room Air 174/74 (107) 04/20/17 16:00 Room Air 04/20/17 14:00 81 24 152/95 (114) 97 Room Air 188/88 (121) 04/20/17 12:00 36.8 79 24 145/90 (108) 98 Room Air 167/75 (105) 04/20/17 12:00 97 Room Air 04/20/17 10:00 75 19 155/82 (106) 98 Nasal Cannula 3.0 167/77 (107) 04/20/17 09:50 37.3 77 17 (115) 100 175/80 04/20/17 09:45 37.3 76 15 (118) 99 178/83 04/20/17 09:40 37.2 80 9 (138) 100 194/88 04/20/17 09:35 37.2 76 13 (122) 100 191/85 04/20/17 09:33 37.2 65 22 139/99 (108) 99 171/85 04/20/17 09:30 37.2 74 20 (112) 100 168/80 04/20/17 09:25 37.2 74 20 (111) 100 167/80 04/20/17 09:20 37.1 73 19 (105) 100 161/75 04/20/17 09:15 37.1 73 19 (104) 100 158/75 04/20/17 09:14 28 04/20/17 09:10 37.1 73 18 (97) 100 149/69 04/20/17 08:00 Mechanical Ventilator 28 04/20/17 08:00 36.8 76 19 123/73 (90) 100 CPAP 28 150/65 (93) Mechanical Ventilator 04/20/17 08:00 100 Mechanical Ventilator 28 04/20/17 08:00 28 04/20/17 07:52 28 Lab Results: Results Past 24 Hours Test 04/20/17 09:26 04/20/17 11:27 04/20/17 12:33 04/20/17 14:13 Range/Units Bedside Glucose 208 164 167 70-90 mg/dl White Blood Count 8.04 4.8-10.8 K/uL Red Blood Count 3.57 4.2-5.4 M/uL Hemoglobin 9.1 12.0-16.0 g/dL Hematocrit 27.1 37-47 % Mean Corpuscular Volume 75.9 80-100 fL Mean Corpuscular Hemoglobin 25.5 25-34 pg Mean Corpuscular Hemoglobin Concent 33.6 32-36 g/dl Platelet Count 230 130-400 K/uL Mean Platelet Volume 8.9 7.4-10.4 fL Neutrophils (%) (Auto) 73.1 % Lymphocytes (%) (Auto) 15.4 % Monocytes (%) (Auto) 9.0 % Eosinophils (%) (Auto) 1.7 % Basophils (%) (Auto) 0.4 % Neutrophils # (Auto) 5.88 1.4-6.5 K/uL Lymphocytes # (Auto) 1.24 1.2-3.4 K/uL Monocytes # (Auto) 0.72 0.11-0.59 K/uL Eosinophils # (Auto) 0.14 0-0.5 K/uL Basophils # (Auto) 0.03 0-0.2 K/uL RDW Standard Deviation 45.4 36.4-46.3 fL RDW Coefficient of Variation 16.5 11.5-14.5 % Immature Granulocyte % (Auto) 0.4 % Immature Granulocyte # (Auto) 0.03 0.00-0.02 K/uL Nucleated RBC Absolute Count (auto) 0.02 0-0 K/uL Nucleated Red Blood Cells % 0.3 % Sodium Level 138 136-145 mmol/L Potassium Level 3.5 3.5-5.1 mmol/L Chloride Level 111 98-107 mmol/L Carbon Dioxide Level 21 21-32 mmol/L Anion Gap 6.0 3-11 mmol/L Blood Urea Nitrogen 23 7-18 mg/dl Creatinine 1.94 0.60-1.20 mg/dl Est Creatinine Clear Calc Drug Dose 39.3 ml/min Estimated GFR () 35.6 Estimated GFR (Non- 30.7 BUN/Creatinine Ratio 11.7 10-20 Random Glucose 172 70-99 mg/dl Calcium Level 8.4 8.5-10.1 mg/dl Ionized Calcium 1.20 1.12-1.32 mmol/l Phosphorus Level 2.4 2.5-4.9 mg/dl Magnesium Level 2.4 1.8-2.4 mg/dl Total Bilirubin 0.5 0.2-1 mg/dl Aspartate Amino Transf (AST/SGOT) 41 15-37 U/L Alanine Aminotransferase (ALT/SGPT) 32 12-78 U/L Alkaline Phosphatase 109 45-117 U/L Total Protein 5.7 6.4-8.2 gm/dl Albumin 2.4 3.4-5.0 gm/dl Globulin 3.3 2.5-4.0 gm/dl Albumin/Globulin Ratio 0.7 0.9-2 Triglycerides Level 876 0-150 mg/dl Test 04/20/17 14:14 04/20/17 14:20 04/20/17 15:20 04/20/17 16:29 Range/Units Bedside Glucose 155 167 169 70-90 mg/dl Lactic Acid Level 0.2 0.4-2.0 mmol/L Test 04/20/17 16:32 04/20/17 17:52 04/20/17 19:58 04/20/17 20:00 Range/Units Blood Gas Sample Site Art Line Bedside Blood Gas pH (LAB) 7.45 7.35-7.45 Bedside Blood Gas pCO2 (LAB) 25 35-46 mmHg Bedside Blood Gas pO2 (LAB) 81 80-95 mmHg Bedside Blood Gas HCO3 (LAB) 17 19-24 meq/L Bedside Blood Gas Total CO2 18 24-31 mEq/l Bedside Blood Gas Base Excess (LAB) -7.0 -9-1.8 meq/L Bedside Blood Gas O2 Saturation 97.0 90-95 % Mickey Test NA Oxygen Delivery Device Cannula Bedside Glucose 187 170 70-90 mg/dl Sodium Level 142 136-145 mmol/L Potassium Level 3.3 3.5-5.1 mmol/L Chloride Level 113 98-107 mmol/L Carbon Dioxide Level 21 21-32 mmol/L Anion Gap 8.0 3-11 mmol/L Blood Urea Nitrogen 23 7-18 mg/dl Creatinine 1.93 0.60-1.20 mg/dl Est Creatinine Clear Calc Drug Dose 39.5 ml/min Estimated GFR () 35.8 Estimated GFR (Non- 30.9 BUN/Creatinine Ratio 12.1 10-20 Random Glucose 183 70-99 mg/dl Calcium Level 8.5 8.5-10.1 mg/dl Ionized Calcium 1.15 1.12-1.32 mmol/l Phosphorus Level 2.4 2.5-4.9 mg/dl Magnesium Level 2.2 1.8-2.4 mg/dl Total Bilirubin 0.7 0.2-1 mg/dl Aspartate Amino Transf (AST/SGOT) 54 15-37 U/L Alanine Aminotransferase (ALT/SGPT) 46 12-78 U/L Alkaline Phosphatase 130 45-117 U/L Total Protein 6.2 6.4-8.2 gm/dl Albumin 2.6 3.4-5.0 gm/dl Globulin 3.6 2.5-4.0 gm/dl Albumin/Globulin Ratio 0.7 0.9-2 Test 04/20/17 22:10 04/20/17 23:48 04/21/17 01:54 04/21/17 02:01 Range/Units Bedside Glucose 179 163 157 70-90 mg/dl White Blood Count 9.06 4.8-10.8 K/uL Red Blood Count 3.75 4.2-5.4 M/uL Hemoglobin 9.3 12.0-16.0 g/dL Hematocrit 28.2 37-47 % Mean Corpuscular Volume 75.2 80-100 fL Mean Corpuscular Hemoglobin 24.8 25-34 pg Mean Corpuscular Hemoglobin Concent 33.0 32-36 g/dl Platelet Count 247 130-400 K/uL Mean Platelet Volume 9.0 7.4-10.4 fL Neutrophils (%) (Auto) 73.1 % Lymphocytes (%) (Auto) 15.7 % Monocytes (%) (Auto) 9.5 % Eosinophils (%) (Auto) 1.0 % Basophils (%) (Auto) 0.3 % Neutrophils # (Auto) 6.62 1.4-6.5 K/uL Lymphocytes # (Auto) 1.42 1.2-3.4 K/uL Monocytes # (Auto) 0.86 0.11-0.59 K/uL Eosinophils # (Auto) 0.09 0-0.5 K/uL Basophils # (Auto) 0.03 0-0.2 K/uL RDW Standard Deviation 44.9 36.4-46.3 fL RDW Coefficient of Variation 16.5 11.5-14.5 % Immature Granulocyte % (Auto) 0.4 % Immature Granulocyte # (Auto) 0.04 0.00-0.02 K/uL Sodium Level 142 136-145 mmol/L Potassium Level 2.7 3.5-5.1 mmol/L Chloride Level 114 98-107 mmol/L Carbon Dioxide Level 23 21-32 mmol/L Anion Gap 5.0 3-11 mmol/L Blood Urea Nitrogen 24 7-18 mg/dl Creatinine 1.87 0.60-1.20 mg/dl Est Creatinine Clear Calc Drug Dose 40.7 ml/min Estimated GFR () 37.2 Estimated GFR (Non- 32.1 BUN/Creatinine Ratio 12.8 10-20 Random Glucose 156 70-99 mg/dl Lactic Acid Level < 0.1 0.4-2.0 mmol/L Calcium Level 8.4 8.5-10.1 mg/dl Ionized Calcium 1.10 1.12-1.32 mmol/l Phosphorus Level 2.4 2.5-4.9 mg/dl Magnesium Level 2.2 1.8-2.4 mg/dl Total Bilirubin 0.9 0.2-1 mg/dl Aspartate Amino Transf (AST/SGOT) 44 15-37 U/L Alanine Aminotransferase (ALT/SGPT) 43 12-78 U/L Alkaline Phosphatase 118 45-117 U/L Total Protein 6.1 6.4-8.2 gm/dl Albumin 2.5 3.4-5.0 gm/dl Globulin 3.6 2.5-4.0 gm/dl Albumin/Globulin Ratio 0.7 0.9-2 Test 04/21/17 04:04 04/21/17 05:16 04/21/17 05:54 Range/Units Bedside Glucose 160 156 70-90 mg/dl Prothrombin Time 9.9 9.0-12.0 SECONDS Prothromb Time International Ratio 0.9 0.9-1.1 Activated Partial Thromboplast Time 28.6 21.0-31.0 SECONDS Partial Thromboplastin Ratio 1.1 Sodium Level 146 136-145 mmol/L Potassium Level 3.3 3.5-5.1 mmol/L Chloride Level 115 98-107 mmol/L Carbon Dioxide Level 22 21-32 mmol/L Anion Gap 8.0 3-11 mmol/L Blood Urea Nitrogen 23 7-18 mg/dl Creatinine 1.81 0.60-1.20 mg/dl Est Creatinine Clear Calc Drug Dose 41.6 ml/min Estimated GFR () 38.7 Estimated GFR (Non- 33.4 BUN/Creatinine Ratio 12.7 10-20 Random Glucose 161 70-99 mg/dl Calcium Level 9.2 8.5-10.1 mg/dl Ionized Calcium 1.22 1.12-1.32 mmol/l Phosphorus Level 3.8 2.5-4.9 mg/dl Magnesium Level 2.2 1.8-2.4 mg/dl Total Bilirubin 1.0 0.2-1 mg/dl Aspartate Amino Transf (AST/SGOT) 46 15-37 U/L Alanine Aminotransferase (ALT/SGPT) 45 12-78 U/L Alkaline Phosphatase 125 45-117 U/L Total Creatine Kinase 72 26-192 U/L Total Protein 6.1 6.4-8.2 gm/dl Albumin 2.5 3.4-5.0 gm/dl Globulin 3.6 2.5-4.0 gm/dl Albumin/Globulin Ratio 0.7 0.9-2 Amylase Level 62 25-115 U/L Lipase 651 73-393 U/L Procalcitonin 2.18 0-0.5 ng/ml Random Vancomycin Level 14.1 mcg/ml
--- NOTE | 2017-04-20 14:25 | Pharmacy Progress Note ---
Pharmacy Abx Dose Short Note Date of Service Apr 20, 2017. Assessment & Plan Assessment 42 year old female receiving vancomycin/zosyn for empiric treatment. She is also Cdiff positive with a prior history of Cdiff and colectomy. Patient's renal function has fluctuated significantly during her stay and she received one time dialysis yesterday primarily for acid clearance. Day # 5 of antimicrobial therapy. Plan Vancomycin * Will use random levels from this morning and tomorrow morning to better determine ongoing vancomycin therapy. * Will assess levels and make any changes necessary in the morning. Zosyn * Increased dosing to 3.375 q8h Pharmacy will continue to follow and will adjust dose/frequency as necessary. Thank you.
[2017-04-20 14:27] LABS: BASO % 0.4 %; BASO ABS # 0.03 K/uL (0-0.2); EOS % 1.7 %; EOS ABS # 0.14 K/uL (0-0.5); HEMATOCRIT 27.1 % (37-47); HEMOGLOBIN 9.1 g/dL (12.0-16.0); IG# 0.03 K/uL (0.00-0.02); LYMPH % 15.4 %; LYMPH ABS # 1.24 K/uL (1.2-3.4); MEAN CELL VOLUME 75.9 fL (80-100); MEAN CORPUSCULAR HEMOGLOBIN 25.5 pg (25-34); MEAN CORPUSCULAR HGB CONC 33.6 g/dl (32-36); MEAN PLATELET VOLUME 8.9 fL (7.4-10.4); MONO ABS # 0.72 K/uL (0.11-0.59); NEUT % 73.1 %; NEUT ABS # 5.88 K/uL (1.4-6.5); NUCLEATED RED BLOOD CELL ABS 0.02 K/uL (0-0); PLATELET COUNT 230 K/uL (130-400); RED CELL DISTRIBUTION WIDTH CV 16.5 % (11.5-14.5); RED CELL DISTRIBUTION WIDTH SD 45.4 fL (36.4-46.3); WHITE BLOOD COUNT 8.04 K/uL (4.8-10.8)
[2017-04-20] MEDS: INSULIN REGULAR 250 UNITS in SODIUM CHLORIDE 0.9% 250ML 250 ML IV SCH (14:44)
[2017-04-20 14:57] LABS: ALBUMIN 2.4 gm/dl (3.4-5.0); CALCIUM 8.4 mg/dl (8.5-10.1); CREATININE 1.94 mg/dl (0.60-1.20); PHOSPHORUS 2.4 mg/dl (2.5-4.9); POTASSIUM 3.5 mmol/L (3.5-5.1); TOTAL PROTEIN 5.7 gm/dl (6.4-8.2)
--- NOTE | 2017-04-20 15:04 | Pharmacy Progress Note ---
Glycemic: Assessment & Plan Date of Service Apr 20, 2017. Assessment & Plan The patient is currently receiving an insulin drip. Patient was at ~7 units/hr this morning when dextrose containing fluids were discontinued. The glucose dropped to 164 and remained in the 160s when the rate was dropped to 5 units/hr , at which time we decreased the rate to 4 units/hr. Per the nurse, Tana, the next BS was in the 150s and we discussed continuing the current rate of 4 units/ hr. As discussed with the team, we will manage drip rates on an hourly basis with each blood sugar check to ensure safety and efficacy. This plan was also discussed with the second shift pharmacist. * Please note that the plan above was derived based on current level of insulin resistance and hospital stress. These recommendations are appropriate for inpatient admission only. Plan of care upon discharge will need to be reassessed to avoid potential outpatient hypo/hyperglycemia.
[2017-04-20] MEDS ORDERED: NURSING VERBAL MED ORDER ONE (15:30)
[2017-04-20] MEDS ORDERED: HydrALAZINE HCL 20 MG/ML VIAL IV. ONE (15:45)
[2017-04-20] MEDS ORDERED: POTASSIUM PHOS 3 MMOL/1 ML INFUSION IV STA (16:21)
[2017-04-20] MEDS ORDERED: POTASSIUM PHOSPHATE INJ 15 MMOL in SODIUM CHLORIDE 0.9% 250ML 250 ML IV ONE (16:45)
[2017-04-20 20:22] LABS: ALBUMIN 2.6 gm/dl (3.4-5.0); CALCIUM 8.5 mg/dl (8.5-10.1); CREATININE 1.93 mg/dl (0.60-1.20); POTASSIUM 3.3 mmol/L (3.5-5.1)
[2017-04-20 20:25] LABS: PHOSPHORUS 2.4 mg/dl (2.5-4.9); TOTAL PROTEIN 6.2 gm/dl (6.4-8.2)
[2017-04-20] MEDS: NiCARDipine IV 25 MG in SODIUM CHLORIDE 0.9% 250ML 240 ML IV PRN (21:20)
[2017-04-21] VITALS (37 sets, daily range): BP systolic 126–206; BP diastolic 63–96; PULSE 78–97; TEMP 36.7–37.1; O2SAT 93–100; BMI 34.2
[2017-04-21] MEDS: NiCARDipine IV 25 MG in SODIUM CHLORIDE 0.9% 250ML 240 ML IV PRN ×6 (00:28→17:29)
[2017-04-21] MEDS ORDERED: POTASSIUM PHOS 3 MMOL/1 ML INFUSION IV STA ×2 (01:53→16:06)
[2017-04-21] MEDS ORDERED: POTASSIUM CHLORIDE 20 MEQ/15 ML UDC PO STA ×2 (01:53→23:10)
[2017-04-21] MEDS ORDERED: POTASSIUM PHOSPHATE INJ 15 MMOL in SODIUM CHLORIDE 0.9% 250ML 250 ML IV ONE ×2 (02:00→17:00)
[2017-04-21 02:11] LABS: BASO % 0.3 %; BASO ABS # 0.03 K/uL (0-0.2); EOS ABS # 0.09 K/uL (0-0.5); HEMATOCRIT 28.2 % (37-47); HEMOGLOBIN 9.3 g/dL (12.0-16.0); IG# 0.04 K/uL (0.00-0.02); LYMPH % 15.7 %; LYMPH ABS # 1.42 K/uL (1.2-3.4); MEAN CELL VOLUME 75.2 fL (80-100); MEAN CORPUSCULAR HEMOGLOBIN 24.8 pg (25-34); MONO % 9.5 %; MONO ABS # 0.86 K/uL (0.11-0.59); NEUT % 73.1 %; NEUT ABS # 6.62 K/uL (1.4-6.5); PLATELET COUNT 247 K/uL (130-400); RED CELL DISTRIBUTION WIDTH CV 16.5 % (11.5-14.5); RED CELL DISTRIBUTION WIDTH SD 44.9 fL (36.4-46.3); WHITE BLOOD COUNT 9.06 K/uL (4.8-10.8)
[2017-04-21 02:35] LABS: ALBUMIN 2.5 gm/dl (3.4-5.0); CALCIUM 8.4 mg/dl (8.5-10.1); CREATININE 1.87 mg/dl (0.60-1.20); POTASSIUM 2.7 mmol/L (3.5-5.1)
[2017-04-21 02:37] LABS: PHOSPHORUS 2.4 mg/dl (2.5-4.9); TOTAL PROTEIN 6.1 gm/dl (6.4-8.2)
[2017-04-21] MEDS ORDERED: CALCIUM CHLORIDE 10% 10 ML SYR IV STA (03:25)
[2017-04-21] MEDS ORDERED: CALCIUM CHLORIDE 10% 1,000 MG in SODIUM CHLORIDE 0.9% 50ML 50 ML IV STA (03:30)
[2017-04-21] MEDS: PIPERACILL/TAZOBAC IV 3.375 GM in DEXTROSE 5% 100ML 100 ML IV SCH ×3 (04:00→19:38)
[2017-04-21] MEDS: FAMOTIDINE IV INJ 20 MG in SYRINGE 3 ML IV SCH ×2 (05:44→17:26)
[2017-04-21] MEDS: VANCOMYCIN HCL 250 MG/5 ML SOLN PO SCH ×4 (05:44→23:38)
[2017-04-21] MEDS: RASPBERRY SYRUP 5 ML UDP PO SCH ×4 (05:44→23:38)
[2017-04-21] MEDS: HEPARIN SOD 5000 UNIT/0.5 ML CARP SQ SCH ×3 (05:51→21:49)
[2017-04-21 06:04] LABS: INR 0.9 (0.9-1.1); PTT PATIENT 28.6 SECONDS (21.0-31.0)
[2017-04-21 06:31] LABS: ALBUMIN 2.5 gm/dl (3.4-5.0); CALCIUM 9.2 mg/dl (8.5-10.1); CREATININE 1.81 mg/dl (0.60-1.20); PHOSPHORUS 3.8 mg/dl (2.5-4.9); POTASSIUM 3.3 mmol/L (3.5-5.1); TOTAL PROTEIN 6.1 gm/dl (6.4-8.2)
[2017-04-21] MEDS ORDERED: VANCOMYCIN INJ 1,250 MG in SODIUM CHLORIDE 0.9% 250ML 250 ML IV SCH ×2 (07:30→10:00)
[2017-04-21] MEDS: INSULIN ASPART 100 UNITS/ML 3 ML PEN SC SCH ×4 (08:00→23:01)
[2017-04-21] MEDS: POTASSIUM CHLORIDE PWD 20 MEQ PACK PO SCH ×2 (08:57→12:37)
[2017-04-21] MEDS: PROPRANOLOL HCL 80 MG TAB PO SCH ×2 (08:57→20:06)
[2017-04-21] MEDS: AMLODIPINE BESYLATE 5 MG TAB PO SCH (09:00)
[2017-04-21] MEDS ORDERED: VANCOMYCIN TROUGH ONE (09:30)
--- NOTE | 2017-04-21 09:50 | Nephrology Progress Note ---
Nephrology Progress Note Date of Service: Apr 21, 2017. Subjective 42 yo female with signicant dka who required one dialysis treatment and was intubated. was extubated yesterday. urinating very well. had issues with low potassium and low calcium and required high doses supplementation. pt requiring a one to one since she is confused. knows her name and her date of but not the year or the president. Objective Date Time Temp Pulse Resp B/P (MAP) Pulse Ox O2 Delivery O2 Flow Rate FiO2 04/21/17 06:00 92 17 175/83 (113) 95 Room Air 04/21/17 04:00 96 Room Air 04/21/17 04:00 36.9 90 22 174/77 (109) 96 Room Air 04/21/17 02:00 96 22 172/91 (118) 96 Room Air 04/21/17 00:01 36.8 96 20 150/75 (100) 96 Room Air 04/20/17 23:59 96 Room Air 04/20/17 22:00 95 26 182/79 (113) 95 Room Air 04/20/17 20:00 98 Room Air 04/20/17 20:00 36.8 99 22 214/88 (130) 98 Room Air 04/20/17 18:00 96 25 195/110 (138) 97 Room Air 208/96 (133) 04/20/17 16:00 36.6 97 19 178/106 (130) 98 Room Air 174/74 (107) 04/20/17 16:00 Room Air 04/20/17 14:00 81 24 152/95 (114) 97 Room Air 188/88 (121) 04/20/17 12:00 36.8 79 24 145/90 (108) 98 Room Air 167/75 (105) 04/20/17 12:00 97 Room Air 04/20/17 10:00 75 19 155/82 (106) 98 Nasal Cannula 3.0 167/77 (107) 04/20/17 09:50 37.3 77 17 (115) 100 175/80 Physical Exam: General-aaox1 Eyes-no scleral icterus ENT-mmm Neck-supple Lungs-cta Heart-regular Abdomen-bs+ s/nt/nd Extremities-no c/c/e Neuro-confused Current Inpatient Medications Medications (Trade) Dose Ordered Sig/Yudy Route Start Time Stop Time Status Last Admin Dose Admin Glucose (Glucose 40% Gel) UD PRN PO 04/17/17 15:00 05/17/17 14:59 Glucose (Glucose Chew Tab) 1 tabs UD PRN PO 04/17/17 15:00 05/17/17 14:59 Dextrose (Dextrose 50% 50ML Syringe) 50 ml UD PRN IV 04/17/17 15:00 05/17/17 14:59 Glucagon (Glucagon Inj) 1 mg UD PRN SQ 04/17/17 15:00 05/17/17 14:59 Insulin Aspart (novoLOG ASPART) SLIDING SCALE HS SC 04/17/17 17:30 05/17/17 18:59 Miscellaneous Information (Consult Glycemic Management Pharmacy) 1 ea UD PRN N/A 04/17/17 15:45 05/17/17 15:44 Heparin Sodium (Porcine) (Heparin Sq 5000 Unit/0.5ml) 5,000 unit Q8 SQ 04/17/17 22:00 05/17/17 21:59 04/21/17 05:51 5,000 UNIT Acetaminophen (Tylenol Tab) 650 mg Q4H PRN PO 04/17/17 16:00 05/17/17 15:59 Ondansetron HCl (Zofran Inj) 4 mg Q6H PRN IV 04/17/17 16:00 05/17/17 15:59 Albuterol (Ventolin Hfa Inhaler) 2 puffs Q4H PRN INH 04/17/17 16:15 05/17/17 16:14 Amlodipine Besylate (Norvasc Tab) 5 mg QAM PO 04/18/17 09:00 05/18/17 08:59 04/21/17 09:00 5 MG Atorvastatin Calcium (Lipitor Tab) 10 mg DAILY PO 04/18/17 09:00 05/18/17 08:59 Future Hold Duloxetine HCl (Cymbalta Cap) 60 mg QPM PO 04/17/17 21:00 05/17/17 20:59 Future Hold 04/17/17 20:52 60 MG Pregabalin (Lyrica Cap) 50 mg QPM PO 04/17/17 21:00 05/17/17 20:59 Future Hold 04/17/17 20:55 50 MG Topiramate (Topamax Tab) 75 mg QPM PO 04/18/17 21:00 05/18/17 20:59 Future Hold Vancomycin HCl (Consult) 1 ea UD PRN N/A 04/17/17 16:27 05/17/17 16:26 Famotidine 20 mg/ Syringe 5 ml @ 2.5 mls/min Q12H IV 04/17/17 18:00 05/17/17 17:59 04/21/17 05:44 2.5 MLS/MIN Insulin Human Regular 250 units/ Sodium Chloride 252.5 ml @ 0 mls/hr Q24H IV 04/18/17 15:00 05/18/17 14:59 04/20/17 14:44 4 MLS/HR Piperacillin Sod/ Tazobactam Sod (Consult) 1 ea UD PRN N/A 04/19/17 07:15 05/19/17 07:14 Propranolol HCl (Inderal Tab) 120 mg BID PO 04/19/17 09:37 05/19/17 09:36 04/21/17 08:57 120 MG Vancomycin HCl (Vancomycin Oral Soln) 250 mg Q6 PO 04/20/17 12:00 05/04/17 11:59 04/21/17 05:44 250 MG Raspberry (Raspberry Syrup 5ml Cup) 5 ml Q6 PO 04/20/17 12:00 05/04/17 11:59 04/20/17 17:50 5 ML Piperacillin Sod/ Tazobactam Sod 3.375 gm/Dextrose 115 ml @ 28.75 mls/ hr Q8H IV 04/20/17 20:00 04/29/17 19:59 04/21/17 04:00 28.75 MLS/HR Nicardipine HCl 25 mg/Sodium Chloride 250 ml @ 0 mls/hr Q0M PRN IV 04/20/17 20:47 05/20/17 20:46 04/21/17 09:27 100 MLS/HR Vancomycin HCl 1250 mg/Sodium Chloride 275 ml @ 125 mls/hr Q28H IV 04/21/17 07:30 04/27/17 07:29 04/21/17 08:56 125 MLS/HR Potassium Chloride (Klor-Con Pwd) 40 meq Q4H PO 04/21/17 08:30 04/21/17 12:31 04/21/17 08:57 40 MEQ Last 24 Hours Test 04/20/17 11:27 04/20/17 12:33 04/20/17 14:13 04/20/17 14:14 Bedside Glucose 164 mg/dl 167 mg/dl 155 mg/dl White Blood Count 8.04 K/uL Red Blood Count 3.57 M/uL Hemoglobin 9.1 g/dL Hematocrit 27.1 % Mean Corpuscular Volume 75.9 fL Mean Corpuscular Hemoglobin 25.5 pg Mean Corpuscular Hemoglobin Concent 33.6 g/dl Platelet Count 230 K/uL Mean Platelet Volume 8.9 fL Neutrophils (%) (Auto) 73.1 % Lymphocytes (%) (Auto) 15.4 % Monocytes (%) (Auto) 9.0 % Eosinophils (%) (Auto) 1.7 % Basophils (%) (Auto) 0.4 % Neutrophils # (Auto) 5.88 K/uL Lymphocytes # (Auto) 1.24 K/uL Monocytes # (Auto) 0.72 K/uL Eosinophils # (Auto) 0.14 K/uL Basophils # (Auto) 0.03 K/uL RDW Standard Deviation 45.4 fL RDW Coefficient of Variation 16.5 % Immature Granulocyte % (Auto) 0.4 % Immature Granulocyte # (Auto) 0.03 K/uL Nucleated RBC Absolute Count (auto) 0.02 K/uL Nucleated Red Blood Cells % 0.3 % Sodium Level 138 mmol/L Potassium Level 3.5 mmol/L Chloride Level 111 mmol/L Carbon Dioxide Level 21 mmol/L Anion Gap 6.0 mmol/L Blood Urea Nitrogen 23 mg/dl Creatinine 1.94 mg/dl Est Creatinine Clear Calc Drug Dose 39.3 ml/min Estimated GFR () 35.6 Estimated GFR (Non- 30.7 BUN/Creatinine Ratio 11.7 Random Glucose 172 mg/dl Calcium Level 8.4 mg/dl Ionized Calcium 1.20 mmol/l Phosphorus Level 2.4 mg/dl Magnesium Level 2.4 mg/dl Total Bilirubin 0.5 mg/dl Aspartate Amino Transf (AST/SGOT) 41 U/L Alanine Aminotransferase (ALT/SGPT) 32 U/L Alkaline Phosphatase 109 U/L Total Protein 5.7 gm/dl Albumin 2.4 gm/dl Globulin 3.3 gm/dl Albumin/Globulin Ratio 0.7 Triglycerides Level 876 mg/dl Test 04/20/17 14:20 04/20/17 15:20 04/20/17 16:29 04/20/17 16:32 Lactic Acid Level 0.2 mmol/L Bedside Glucose 167 mg/dl 169 mg/dl Blood Gas Sample Site Art Line Bedside Blood Gas pH (LAB) 7.45 Bedside Blood Gas pCO2 (LAB) 25 mmHg Bedside Blood Gas pO2 (LAB) 81 mmHg Bedside Blood Gas HCO3 (LAB) 17 meq/L Bedside Blood Gas Total CO2 18 mEq/l Bedside Blood Gas Base Excess (LAB) -7.0 meq/L Bedside Blood Gas O2 Saturation 97.0 % Mickey Test NA Oxygen Delivery Device Cannula Test 04/20/17 17:52 04/20/17 19:58 04/20/17 20:00 04/20/17 22:10 Bedside Glucose 187 mg/dl 170 mg/dl 179 mg/dl Sodium Level 142 mmol/L Potassium Level 3.3 mmol/L Chloride Level 113 mmol/L Carbon Dioxide Level 21 mmol/L Anion Gap 8.0 mmol/L Blood Urea Nitrogen 23 mg/dl Creatinine 1.93 mg/dl Est Creatinine Clear Calc Drug Dose 39.5 ml/min Estimated GFR () 35.8 Estimated GFR (Non- 30.9 BUN/Creatinine Ratio 12.1 Random Glucose 183 mg/dl Calcium Level 8.5 mg/dl Ionized Calcium 1.15 mmol/l Phosphorus Level 2.4 mg/dl Magnesium Level 2.2 mg/dl Total Bilirubin 0.7 mg/dl Aspartate Amino Transf (AST/SGOT) 54 U/L Alanine Aminotransferase (ALT/SGPT) 46 U/L Alkaline Phosphatase 130 U/L Total Protein 6.2 gm/dl Albumin 2.6 gm/dl Globulin 3.6 gm/dl Albumin/Globulin Ratio 0.7 Test 04/20/17 23:48 04/21/17 01:54 04/21/17 02:01 04/21/17 04:04 Bedside Glucose 163 mg/dl 157 mg/dl 160 mg/dl White Blood Count 9.06 K/uL Red Blood Count 3.75 M/uL Hemoglobin 9.3 g/dL Hematocrit 28.2 % Mean Corpuscular Volume 75.2 fL Mean Corpuscular Hemoglobin 24.8 pg Mean Corpuscular Hemoglobin Concent 33.0 g/dl Platelet Count 247 K/uL Mean Platelet Volume 9.0 fL Neutrophils (%) (Auto) 73.1 % Lymphocytes (%) (Auto) 15.7 % Monocytes (%) (Auto) 9.5 % Eosinophils (%) (Auto) 1.0 % Basophils (%) (Auto) 0.3 % Neutrophils # (Auto) 6.62 K/uL Lymphocytes # (Auto) 1.42 K/uL Monocytes # (Auto) 0.86 K/uL Eosinophils # (Auto) 0.09 K/uL Basophils # (Auto) 0.03 K/uL RDW Standard Deviation 44.9 fL RDW Coefficient of Variation 16.5 % Immature Granulocyte % (Auto) 0.4 % Immature Granulocyte # (Auto) 0.04 K/uL Sodium Level 142 mmol/L Potassium Level 2.7 mmol/L Chloride Level 114 mmol/L Carbon Dioxide Level 23 mmol/L Anion Gap 5.0 mmol/L Blood Urea Nitrogen 24 mg/dl Creatinine 1.87 mg/dl Est Creatinine Clear Calc Drug Dose 40.7 ml/min Estimated GFR () 37.2 Estimated GFR (Non- 32.1 BUN/Creatinine Ratio 12.8 Random Glucose 156 mg/dl Lactic Acid Level < 0.1 mmol/L Calcium Level 8.4 mg/dl Ionized Calcium 1.10 mmol/l Phosphorus Level 2.4 mg/dl Magnesium Level 2.2 mg/dl Total Bilirubin 0.9 mg/dl Aspartate Amino Transf (AST/SGOT) 44 U/L Alanine Aminotransferase (ALT/SGPT) 43 U/L Alkaline Phosphatase 118 U/L Total Protein 6.1 gm/dl Albumin 2.5 gm/dl Globulin 3.6 gm/dl Albumin/Globulin Ratio 0.7 Test 04/21/17 05:16 04/21/17 05:54 04/21/17 08:40 04/21/17 09:05 Prothrombin Time 9.9 SECONDS Prothromb Time International Ratio 0.9 Activated Partial Thromboplast Time 28.6 SECONDS Partial Thromboplastin Ratio 1.1 Sodium Level 146 mmol/L Potassium Level 3.3 mmol/L Chloride Level 115 mmol/L Carbon Dioxide Level 22 mmol/L Anion Gap 8.0 mmol/L Blood Urea Nitrogen 23 mg/dl Creatinine 1.81 mg/dl Est Creatinine Clear Calc Drug Dose 41.6 ml/min Estimated GFR () 38.7 Estimated GFR (Non- 33.4 BUN/Creatinine Ratio 12.7 Random Glucose 161 mg/dl Calcium Level 9.2 mg/dl Ionized Calcium 1.22 mmol/l Phosphorus Level 3.8 mg/dl Magnesium Level 2.2 mg/dl Total Bilirubin 1.0 mg/dl Aspartate Amino Transf (AST/SGOT) 46 U/L Alanine Aminotransferase (ALT/SGPT) 45 U/L Alkaline Phosphatase 125 U/L Total Creatine Kinase 72 U/L Total Protein 6.1 gm/dl Albumin 2.5 gm/dl Globulin 3.6 gm/dl Albumin/Globulin Ratio 0.7 Amylase Level 62 U/L Lipase 651 U/L Procalcitonin 2.18 ng/ml Random Vancomycin Level 14.1 mcg/ml Bedside Glucose 156 mg/dl Blood Gas Sample Site Art Line Bedside Blood Gas pH (LAB) 7.50 Bedside Blood Gas pCO2 (LAB) 22 mmHg Bedside Blood Gas pO2 (LAB) 99 mmHg Bedside Blood Gas HCO3 (LAB) 18 meq/L Bedside Blood Gas Total CO2 18 mEq/l Bedside Blood Gas Base Excess (LAB) -5.0 meq/L Bedside Blood Gas O2 Saturation 98.0 % Mickey Test NA Oxygen Delivery Device Room Air Ammonia 47.0 umol/L Assessment & Plan significant acidosis-resolved with dialysis. no more dialysis needed at this time. hypokalemia-pt had a total body potassium deficit which was revealed as we corrected the acidosis. potassium levels are improving on aggressive oral potassium supplementation. ID-there is a concern that pt had high triglycerides and possibly pancreatitis as the cause of her admission with dka. going for ct scan now. +cdiff-has diarrhea which is common for her and currently on cdiff treatment polyuria-pt mobilizing the extra fluid and urinating well. will follow electrolytes and volume status and replete prn. edema is much improved.
[2017-04-21] MEDS ORDERED: INSULIN GLARGINE SOLOSTAR 100 UNITS/ML 3 ML PEN SC ONE (11:15)
--- NOTE | 2017-04-21 11:16 | DIAGNOSTIC IMAGING REPORT ---
CT SCAN OF THE ABDOMEN AND PELVIS WITHOUT CONTRAST CLINICAL HISTORY: Sepsis, abdominal pain. History of colectomy for C. difficile. COMPARISON STUDY: 5-16 TECHNIQUE: CT scan of the abdomen and pelvis was performed from the lung bases to the proximal femurs. Images are reviewed in the axial, sagittal, and coronal planes. IV contrast was not administered for this examination. A dose lowering technique was utilized adhering to the principles of ALARA. CT DOSE: 669.87 mGy.cm FINDINGS: Lower chest: There are bilateral lower lobe groundglass nodular opacities, likely infectious/inflammatory. The largest is located within the left lower lobe measuring 1 cm. There is a nasogastric tube which passes into the stomach Liver: There is hepatic steatosis. The liver is enlarged measuring 24 cm. Gallbladder: Cholelithiasis Spleen: Normal in size and attenuation. Pancreas: Unremarkable. Adrenal glands: Unremarkable. Kidneys: There is mild nephromegaly. No solid renal masses are visualized. There is no significant hydronephrosis. There is mild nonspecific stranding within the Gerota's fascia on the left Bowel: There are no transition zones indicate bowel obstruction. The patient is status post a partial colectomy. Peritoneum: There is no intraperitoneal free air or abdominal ascites. Vasculature: The abdominal aorta is normal in course and caliber. There is a left femoral arterial catheter present Adenopathy: None. Pelvic viscera: There is a Cheng catheter. There is air within the bladder likely iatrogenic. Skeletal structures: There are postsurgical changes present within the lumbar spine IMPRESSION: 1. Postsurgical changes of a partial colectomy 2. No evidence of bowel obstruction. No evidence of free air 3. Cholelithiasis 4. Mild bilateral nephromegaly 5. Bilateral lower lobe groundglass pulmonary nodules, likely infectious/inflammatory 6. Hepatic steatosis. Hepatomegaly. Electronically signed by: Nael Walsh M.D. 04/21/2017 11:14 AM Dictated Date/Time: 04/21/2017 11:08 AM
--- NOTE | 2017-04-21 12:18 | Pharmacy Progress Note ---
Glycemic: Assessment & Plan Date of Service Apr 21, 2017. Assessment & Plan The patient has been stable on insulin drip at 4 units/hr for past ~20 hours (~ 96 units/day basal need). As such, we will attempt to transition off the drip. * Basal insulin: Lantus 50 units x 1 @ 1115 Lantus scales starting this evening @ 2100 -If BSG >250 give 30 units -If BSG 200-249 give 25 units -If BSG <199 give 20 units * Correctional Insulin: Novolog Correction per scale [id number] once dip is off Goal Range: Low 150 mg/dL - High 200 mg/dL Correction Factor: 20 mg/dL/unit * Prandial insulin: no carb ratio at this time as plan for trickle feeds X 24 hours. Pharmacy will continue to monitor patient daily and write orders per [facility] inpatient glycemic control protocol. Thanks. * Please note that the plan above was derived based on current level of insulin resistance and hospital stress. These recommendations are appropriate for inpatient admission only. Plan of care upon discharge will need to be reassessed to avoid potential outpatient hypo/hyperglycemia.
--- NOTE | 2017-04-21 12:55 | Critical Care Progress Note ---
Critical Care Progress Note Date of Service Apr 21, 2017. Attending Dr. Vences Subjective Remains extubated Still confused Hypertensive, on nicardipine drip Objective General: Obese female, mildly lethargic, comfortable Heent: NC/AT Lungs: coarse breath sounds b/l CVS:S1S2 reg Abd: obese, soft Ext: trace pedal edema. 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 There is no nuchal rigidity, doubt meningitic process Multifactorial toxic-metabolic encephalopathy Pulmonary: Less tachypneic now that the metabolic acidosis is nearly corrected CVS: Off IV fluids. Nicardipine for BP control No need for diuretics Renal/metabolic: Acidosis improved remarkably after one session of HD yesterday. No further need for HD, catheter removed Off bicarb drip Off IV fluids. She is markedly positive, but no need for diuretics, she is autodiuresing very well. Probably a combination of fluid mobilization and post-ATN polyuria Monitor electrolytes every 8 hours, supplement as needed Ammonia level improved Endo: DKA resolved. Continue insulin drip for better glucose control now, no need for D5 infusion. Consider starting on Lantus per pharmacy ID: Likely bacterial infection, unclear source. Procalcitonin quite elevated, improving C-diff positive. 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 Plus, she improved without any C-diff specific treatment Keep on vanco PO for now while on broad spectrum Abx Continue Vancomycin, Cefepime escalated to Zosyn Follow up cultures GI: NPO for now Has significant hepatic steatosis Ammonia level decreased significantly Elevated TG. Propofol was discontinued, but I don't think it was propofol related, it was just started yesterday. Probably the cause of her fatty liver infiltration. To be repeated and eventually treated. TG coming down today Probably has a component of pancreatitis as well, driven by high triglycerides, which in turn made could have led to DKA. The insulin drip is also effective for hypertriglyceridemia Start trickle feeds today Ct abdomen reviewed, no evidence of any pathology to explain her symptoms DVT prophylaxis: SC heparin Critical care time spent with patient, , reviewing chart, discussing with consultants, excluding procedures, greater than 45 minutes Consults & Procedures Consultants: Nephrology - [facility] Procedures: Intubation 04/19/17 Right femoral dual-lumen HD catheter - 04/19/17 Left femoral artery a-line - 04/19/17 Extubation 04/20/17 Data Medications: Current Inpatient Medications Medications (Trade) Dose Ordered Sig/Yudy Route Start Time Stop Time Status Last Admin Dose Admin Glucose (Glucose 40% Gel) UD PRN PO 04/17/17 15:00 05/17/17 14:59 Glucose (Glucose Chew Tab) 1 tabs UD PRN PO 04/17/17 15:00 05/17/17 14:59 Dextrose (Dextrose 50% 50ML Syringe) 50 ml UD PRN IV 04/17/17 15:00 05/17/17 14:59 Glucagon (Glucagon Inj) 1 mg UD PRN SQ 04/17/17 15:00 05/17/17 14:59 Insulin Aspart (novoLOG ASPART) SLIDING SCALE HS SC 04/17/17 17:30 04/21/17 16:59 Miscellaneous Information (Consult Glycemic Management Pharmacy) 1 ea UD PRN N/A 04/17/17 15:45 05/17/17 15:44 Heparin Sodium (Porcine) (Heparin Sq 5000 Unit/0.5ml) 5,000 unit Q8 SQ 04/17/17 22:00 05/17/17 21:59 04/21/17 05:51 5,000 UNIT Acetaminophen (Tylenol Tab) 650 mg Q4H PRN PO 04/17/17 16:00 05/17/17 15:59 Ondansetron HCl (Zofran Inj) 4 mg Q6H PRN IV 04/17/17 16:00 05/17/17 15:59 Albuterol (Ventolin Hfa Inhaler) 2 puffs Q4H PRN INH 04/17/17 16:15 05/17/17 16:14 Amlodipine Besylate (Norvasc Tab) 5 mg QAM PO 04/18/17 09:00 05/18/17 08:59 04/21/17 09:00 5 MG Atorvastatin Calcium (Lipitor Tab) 10 mg DAILY PO 04/18/17 09:00 05/18/17 08:59 Future Hold Duloxetine HCl (Cymbalta Cap) 60 mg QPM PO 04/17/17 21:00 05/17/17 20:59 Future Hold 04/17/17 20:52 60 MG Pregabalin (Lyrica Cap) 50 mg QPM PO 04/17/17 21:00 05/17/17 20:59 Future Hold 04/17/17 20:55 50 MG Topiramate (Topamax Tab) 75 mg QPM PO 04/18/17 21:00 05/18/17 20:59 Future Hold Vancomycin HCl (Consult) 1 ea UD PRN N/A 04/17/17 16:27 05/17/17 16:26 Famotidine 20 mg/ Syringe 5 ml @ 2.5 mls/min Q12H IV 04/17/17 18:00 05/17/17 17:59 04/21/17 05:44 2.5 MLS/MIN Insulin Human Regular 250 units/ Sodium Chloride 252.5 ml @ 0 mls/hr Q24H IV 04/18/17 15:00 04/21/17 17:00 04/20/17 14:44 4 MLS/HR Piperacillin Sod/ Tazobactam Sod (Consult) 1 ea UD PRN N/A 04/19/17 07:15 05/19/17 07:14 Propranolol HCl (Inderal Tab) 120 mg BID PO 04/19/17 09:37 05/19/17 09:36 04/21/17 08:57 120 MG Vancomycin HCl (Vancomycin Oral Soln) 250 mg Q6 PO 04/20/17 12:00 05/04/17 11:59 04/21/17 05:44 250 MG Raspberry (Raspberry Syrup 5ml Cup) 5 ml Q6 PO 04/20/17 12:00 05/04/17 11:59 04/20/17 17:50 5 ML Piperacillin Sod/ Tazobactam Sod 3.375 gm/Dextrose 115 ml @ 28.75 mls/ hr Q8H IV 04/20/17 20:00 04/29/17 19:59 04/21/17 04:00 28.75 MLS/HR Nicardipine HCl 25 mg/Sodium Chloride 250 ml @ 0 mls/hr Q0M PRN IV 04/20/17 20:47 05/20/17 20:46 04/21/17 09:27 100 MLS/HR Vancomycin HCl 1250 mg/Sodium Chloride 275 ml @ 125 mls/hr Q28H IV 04/21/17 07:30 04/27/17 07:29 04/21/17 08:56 125 MLS/HR Potassium Chloride (Klor-Con Pwd) 40 meq Q4H PO 04/21/17 08:30 04/21/17 12:31 04/21/17 08:57 40 MEQ Miscellaneous Information (Dc Iv Insulin Infusion) 1 ea ONE ONCE N/A 04/21/17 17:00 04/21/17 17:01 Insulin Glargine (Lantus Solostar Pen) see protocol Q12 SC 04/21/17 21:00 05/21/17 20:59 Insulin Aspart (novoLOG ASPART) Q6H SC 04/21/17 17:01 05/21/17 17:00 Vital Signs: Date Time Temp Pulse Resp B/P (MAP) Pulse Ox O2 Delivery O2 Flow Rate FiO2 04/21/17 09:45 87 18 170/83 (112) 97 Room Air 04/21/17 09:30 90 16 177/87 (117) 97 04/21/17 09:15 93 14 177/80 (112) 93 04/21/17 09:06 96 15 199/88 (125) 98 04/21/17 09:00 94 19 179/83 (115) 97 04/21/17 08:45 97 14 187/86 (119) 96 04/21/17 08:30 37.1 90 21 180/82 (114) 96 Room Air 04/21/17 08:30 96 Room Air 04/21/17 08:15 96 14 188/63 (104) 96 04/21/17 08:01 92 17 206/85 (125) 100 04/21/17 08:00 Room Air 04/21/17 08:00 94 16 185/93 (123) 100 04/21/17 07:45 95 14 186/85 (118) 96 04/21/17 07:30 95 29 191/84 (119) 93 04/21/17 07:15 92 14 175/78 (110) 97 04/21/17 07:00 93 20 178/80 (112) 100 04/21/17 06:00 92 17 175/83 (113) 95 Room Air 04/21/17 04:00 96 Room Air 04/21/17 04:00 36.9 90 22 174/77 (109) 96 Room Air 04/21/17 02:00 96 22 172/91 (118) 96 Room Air 04/21/17 00:01 36.8 96 20 150/75 (100) 96 Room Air 04/20/17 23:59 96 Room Air 04/20/17 22:00 95 26 182/79 (113) 95 Room Air 04/20/17 20:00 98 Room Air 04/20/17 20:00 36.8 99 22 214/88 (130) 98 Room Air 04/20/17 18:00 96 25 195/110 (138) 97 Room Air 208/96 (133) 04/20/17 16:00 36.6 97 19 178/106 (130) 98 Room Air 174/74 (107) 04/20/17 16:00 Room Air 04/20/17 14:00 81 24 152/95 (114) 97 Room Air 188/88 (121) Laboratory Results: Last 24 Hours Test 04/20/17 12:33 04/20/17 14:13 04/20/17 14:14 04/20/17 14:20 Bedside Glucose 167 mg/dl 155 mg/dl White Blood Count 8.04 K/uL Red Blood Count 3.57 M/uL Hemoglobin 9.1 g/dL Hematocrit 27.1 % Mean Corpuscular Volume 75.9 fL Mean Corpuscular Hemoglobin 25.5 pg Mean Corpuscular Hemoglobin Concent 33.6 g/dl Platelet Count 230 K/uL Mean Platelet Volume 8.9 fL Neutrophils (%) (Auto) 73.1 % Lymphocytes (%) (Auto) 15.4 % Monocytes (%) (Auto) 9.0 % Eosinophils (%) (Auto) 1.7 % Basophils (%) (Auto) 0.4 % Neutrophils # (Auto) 5.88 K/uL Lymphocytes # (Auto) 1.24 K/uL Monocytes # (Auto) 0.72 K/uL Eosinophils # (Auto) 0.14 K/uL Basophils # (Auto) 0.03 K/uL RDW Standard Deviation 45.4 fL RDW Coefficient of Variation 16.5 % Immature Granulocyte % (Auto) 0.4 % Immature Granulocyte # (Auto) 0.03 K/uL Nucleated RBC Absolute Count (auto) 0.02 K/uL Nucleated Red Blood Cells % 0.3 % Sodium Level 138 mmol/L Potassium Level 3.5 mmol/L Chloride Level 111 mmol/L Carbon Dioxide Level 21 mmol/L Anion Gap 6.0 mmol/L Blood Urea Nitrogen 23 mg/dl Creatinine 1.94 mg/dl Est Creatinine Clear Calc Drug Dose 39.3 ml/min Estimated GFR () 35.6 Estimated GFR (Non- 30.7 BUN/Creatinine Ratio 11.7 Random Glucose 172 mg/dl Calcium Level 8.4 mg/dl Ionized Calcium 1.20 mmol/l Phosphorus Level 2.4 mg/dl Magnesium Level 2.4 mg/dl Total Bilirubin 0.5 mg/dl Aspartate Amino Transf (AST/SGOT) 41 U/L Alanine Aminotransferase (ALT/SGPT) 32 U/L Alkaline Phosphatase 109 U/L Total Protein 5.7 gm/dl Albumin 2.4 gm/dl Globulin 3.3 gm/dl Albumin/Globulin Ratio 0.7 Triglycerides Level 876 mg/dl Lactic Acid Level 0.2 mmol/L Test 04/20/17 15:20 04/20/17 16:29 04/20/17 16:32 04/20/17 17:52 Bedside Glucose 167 mg/dl 169 mg/dl 187 mg/dl Blood Gas Sample Site Art Line Bedside Blood Gas pH (LAB) 7.45 Bedside Blood Gas pCO2 (LAB) 25 mmHg Bedside Blood Gas pO2 (LAB) 81 mmHg Bedside Blood Gas HCO3 (LAB) 17 meq/L Bedside Blood Gas Total CO2 18 mEq/l Bedside Blood Gas Base Excess (LAB) -7.0 meq/L Bedside Blood Gas O2 Saturation 97.0 % Mickey Test NA Oxygen Delivery Device Cannula Test 04/20/17 19:58 04/20/17 20:00 04/20/17 22:10 04/20/17 23:48 Sodium Level 142 mmol/L Potassium Level 3.3 mmol/L Chloride Level 113 mmol/L Carbon Dioxide Level 21 mmol/L Anion Gap 8.0 mmol/L Blood Urea Nitrogen 23 mg/dl Creatinine 1.93 mg/dl Est Creatinine Clear Calc Drug Dose 39.5 ml/min Estimated GFR () 35.8 Estimated GFR (Non- 30.9 BUN/Creatinine Ratio 12.1 Random Glucose 183 mg/dl Calcium Level 8.5 mg/dl Ionized Calcium 1.15 mmol/l Phosphorus Level 2.4 mg/dl Magnesium Level 2.2 mg/dl Total Bilirubin 0.7 mg/dl Aspartate Amino Transf (AST/SGOT) 54 U/L Alanine Aminotransferase (ALT/SGPT) 46 U/L Alkaline Phosphatase 130 U/L Total Protein 6.2 gm/dl Albumin 2.6 gm/dl Globulin 3.6 gm/dl Albumin/Globulin Ratio 0.7 Bedside Glucose 170 mg/dl 179 mg/dl 163 mg/dl Test 04/21/17 01:54 04/21/17 02:01 04/21/17 04:04 04/21/17 05:16 Bedside Glucose 157 mg/dl 160 mg/dl White Blood Count 9.06 K/uL Red Blood Count 3.75 M/uL Hemoglobin 9.3 g/dL Hematocrit 28.2 % Mean Corpuscular Volume 75.2 fL Mean Corpuscular Hemoglobin 24.8 pg Mean Corpuscular Hemoglobin Concent 33.0 g/dl Platelet Count 247 K/uL Mean Platelet Volume 9.0 fL Neutrophils (%) (Auto) 73.1 % Lymphocytes (%) (Auto) 15.7 % Monocytes (%) (Auto) 9.5 % Eosinophils (%) (Auto) 1.0 % Basophils (%) (Auto) 0.3 % Neutrophils # (Auto) 6.62 K/uL Lymphocytes # (Auto) 1.42 K/uL Monocytes # (Auto) 0.86 K/uL Eosinophils # (Auto) 0.09 K/uL Basophils # (Auto) 0.03 K/uL RDW Standard Deviation 44.9 fL RDW Coefficient of Variation 16.5 % Immature Granulocyte % (Auto) 0.4 % Immature Granulocyte # (Auto) 0.04 K/uL Sodium Level 142 mmol/L 146 mmol/L Potassium Level 2.7 mmol/L 3.3 mmol/L Chloride Level 114 mmol/L 115 mmol/L Carbon Dioxide Level 23 mmol/L 22 mmol/L Anion Gap 5.0 mmol/L 8.0 mmol/L Blood Urea Nitrogen 24 mg/dl 23 mg/dl Creatinine 1.87 mg/dl 1.81 mg/dl Est Creatinine Clear Calc Drug Dose 40.7 ml/min 41.6 ml/min Estimated GFR () 37.2 38.7 Estimated GFR (Non- 32.1 33.4 BUN/Creatinine Ratio 12.8 12.7 Random Glucose 156 mg/dl 161 mg/dl Lactic Acid Level < 0.1 mmol/L Calcium Level 8.4 mg/dl 9.2 mg/dl Ionized Calcium 1.10 mmol/l 1.22 mmol/l Phosphorus Level 2.4 mg/dl 3.8 mg/dl Magnesium Level 2.2 mg/dl 2.2 mg/dl Total Bilirubin 0.9 mg/dl 1.0 mg/dl Aspartate Amino Transf (AST/SGOT) 44 U/L 46 U/L Alanine Aminotransferase (ALT/SGPT) 43 U/L 45 U/L Alkaline Phosphatase 118 U/L 125 U/L Total Protein 6.1 gm/dl 6.1 gm/dl Albumin 2.5 gm/dl 2.5 gm/dl Globulin 3.6 gm/dl 3.6 gm/dl Albumin/Globulin Ratio 0.7 0.7 Prothrombin Time 9.9 SECONDS Prothromb Time International Ratio 0.9 Activated Partial Thromboplast Time 28.6 SECONDS Partial Thromboplastin Ratio 1.1 Total Creatine Kinase 72 U/L Amylase Level 62 U/L Lipase 651 U/L Procalcitonin 2.18 ng/ml Random Vancomycin Level 14.1 mcg/ml Test 04/21/17 05:54 04/21/17 07:59 04/21/17 08:40 04/21/17 09:05 Bedside Glucose 156 mg/dl 163 mg/dl Blood Gas Sample Site Art Line Bedside Blood Gas pH (LAB) 7.50 Bedside Blood Gas pCO2 (LAB) 22 mmHg Bedside Blood Gas pO2 (LAB) 99 mmHg Bedside Blood Gas HCO3 (LAB) 18 meq/L Bedside Blood Gas Total CO2 18 mEq/l Bedside Blood Gas Base Excess (LAB) -5.0 meq/L Bedside Blood Gas O2 Saturation 98.0 % Mickey Test NA Oxygen Delivery Device Room Air Ammonia 47.0 umol/L Triglycerides Level 710 mg/dl Test 04/21/17 10:02 Bedside Glucose 163 mg/dl
--- NOTE | 2017-04-21 13:16 | Pharmacy Progress Note ---
Pharmacy Abx Dose Short Note Date of Service Apr 21, 2017. Assessment & Plan Assessment 42 year old female receiving vancomycin/zosyn for empiric treatment. Patient also receiving PO vanc for positive C. Diff Day # 5 of antimicrobial therapy. Plan Vancomycin * Trough level of 14.1 mcg/mL is slightly subtherapeutic, but fluctuating renal status has made maintenance therapy difficult to determine * Continue dose of 1250 mg IV every 28 hours, but anticipate will need a significant dose increase tomorrow if renal function improves again. * will get a random level with AM labs Pharmacy will continue to follow and will adjust dose/frequency as necessary. Thank you.
--- NOTE | 2017-04-21 13:37 | Progress Note ---
Internal Med Progress Note Date of Service: Apr 21, 2017. Provider Documentation: SUBJECTIVE: confused and disoriented today able to tell be her name and can not tell where she is at , can not tell year or months , kept of repeating numbers pt denies of any pain or discomfort but noted to change position constantly pt is showing worsening of mental status since admission was hypertensive last night started on Nicardipine gtt OBJECTIVE: Vital Signs-as noted below Exam: General-awake , disoriented , moving in bed constantly Eyes-sclera injected ENT-dry oral mucosa , NG tube present Neck-tranche midline , no thyromegaly Lungs-no rales or wheeze Heart-regular S1/S2 , no JVD, no lower ext edema Abdomen-soft, non tender Extremities-multiple scab wounds in different stages of healing in both arms and hands Neuro-very restless, unable to follow command , orientation to person only Lab data as noted below. ASSESSMENT & PLAN: CONFUSION /ENCEPHALOPATHIC -found to be worsening of confusion , disorientation today no focal neurological deficit appreciated , moving all limbs , no dysarthria electrolytes has been improved markedly possible metabolic encephalopathy due to acute illness /infection /renal failure CT head with out contrast -no acute change noted need to rule out any other neurological pathology neurology eval requested RESPIRATORY FAILURE : resolved due to severe metabolic acidosis required mechanical ventilation metabolic acidosis corrected with dialysis extubated on 04/20/17 respiratory status remains stable TYPE 2 DM /POORLY COMPLIANT /DKA -has not been taking insulin for few days presents with DKA , severe metabolic acidosis , Hb A1c > 13 ( poorly controlled ) cont on IV Insulin GTT appreciate pharmacy input for glycemic management SEVERE METABOLIC ACIDOSIS : due to above corrected after dialysis Anion gap has resolved, Hco3 22 presented with Hco3 9 /AG >16 ABG shows pH 7.06/co2 22/PO2 120/Hco3 6 lactic acid -wnl pt treated with IV insulin gtt /hco3 gtt , Hemodialysis X1 episode electrolytes remains stable appreciate input form Nephrology /Prosthetist LOW MG /LOW PHOS /Low k due to Hco3 gtt /on IV insulin gtt as well corrected \monitor lytes closely ACUTE KIDNEY INJURY IN SETTING OF CKD STAGE 3 due to DKA , hx of diabetic nephropathy , baseline cr approx ~1.3 Cr 1.9-> 2 ACEI /HCTZ kept on hold Nephrology following emergent dialysis done for severe metabolic acidosis renal function improved after HD ; Cr 1.8 adequate urine out put HYPERAMMONEMIA : ammonia level improved hepatic steatosis LFT's wnl , except for mild elevation of Alk phos no report of ETOH abuse CT abdomen /pelvis in 2016 noted to have fatty infiltration of liver recent EGD by Dr. Hassan in 2007 for epigastric pain. Endoscopy was normal and biopsies suggested reflux esophagitis at the GE junction. liver USG -no significant finding GI eval requested , appreciate input no GI intervention indicated , recommends continued correction of DKA , metabolic acidosis HYPERTRIGLYCERIDEMIA : improved TG Level > 1400 -> 600 mild pancreatitis noted , Lipase 600-400 Lipase level continues to improve Leukocytosis: i -Likely 2/2 DKA/dehydration possible infection stool; for cdiff + ve ; on PO vancomycin -Empirically treated with vanc and cefepime -Blood cultures-negative -ID following H/o c diff: -s/p colectomy -stool + ve C diff _PO vancomycin ordered contact precaution DVT Ppx: Heparin SQ Code status: FULL DISPOSITION cont ICU monitoring Vital Signs: Date Time Temp Pulse Resp B/P (MAP) Pulse Ox O2 Delivery O2 Flow Rate FiO2 04/21/17 12:15 97 Room Air 04/21/17 09:45 87 18 170/83 (112) 97 Room Air 04/21/17 09:30 90 16 177/87 (117) 97 04/21/17 09:15 93 14 177/80 (112) 93 04/21/17 09:06 96 15 199/88 (125) 98 04/21/17 09:00 94 19 179/83 (115) 97 04/21/17 08:45 97 14 187/86 (119) 96 04/21/17 08:30 37.1 90 21 180/82 (114) 96 Room Air 04/21/17 08:30 96 Room Air 04/21/17 08:15 96 14 188/63 (104) 96 04/21/17 08:01 92 17 206/85 (125) 100 04/21/17 08:00 Room Air 04/21/17 08:00 94 16 185/93 (123) 100 04/21/17 07:45 95 14 186/85 (118) 96 04/21/17 07:30 95 29 191/84 (119) 93 04/21/17 07:15 92 14 175/78 (110) 97 04/21/17 07:00 93 20 178/80 (112) 100 04/21/17 06:00 92 17 175/83 (113) 95 Room Air 04/21/17 04:00 96 Room Air 04/21/17 04:00 36.9 90 22 174/77 (109) 96 Room Air 04/21/17 02:00 96 22 172/91 (118) 96 Room Air 04/21/17 00:01 36.8 96 20 150/75 (100) 96 Room Air 04/20/17 23:59 96 Room Air 04/20/17 22:00 95 26 182/79 (113) 95 Room Air 04/20/17 20:00 98 Room Air 04/20/17 20:00 36.8 99 22 214/88 (130) 98 Room Air 04/20/17 18:00 96 25 195/110 (138) 97 Room Air 208/96 (133) 04/20/17 16:00 36.6 97 19 178/106 (130) 98 Room Air 174/74 (107) 04/20/17 16:00 Room Air Lab Results: Results Past 24 Hours Test 04/20/17 15:20 04/20/17 16:29 04/20/17 16:32 04/20/17 17:52 Range/Units Bedside Glucose 167 169 187 70-90 mg/dl Blood Gas Sample Site Art Line Bedside Blood Gas pH (LAB) 7.45 7.35-7.45 Bedside Blood Gas pCO2 (LAB) 25 35-46 mmHg Bedside Blood Gas pO2 (LAB) 81 80-95 mmHg Bedside Blood Gas HCO3 (LAB) 17 19-24 meq/L Bedside Blood Gas Total CO2 18 24-31 mEq/l Bedside Blood Gas Base Excess (LAB) -7.0 -9-1.8 meq/L Bedside Blood Gas O2 Saturation 97.0 90-95 % Mickey Test NA Oxygen Delivery Device Cannula Test 04/20/17 19:58 04/20/17 20:00 04/20/17 22:10 04/20/17 23:48 Range/Units Sodium Level 142 136-145 mmol/L Potassium Level 3.3 3.5-5.1 mmol/L Chloride Level 113 98-107 mmol/L Carbon Dioxide Level 21 21-32 mmol/L Anion Gap 8.0 3-11 mmol/L Blood Urea Nitrogen 23 7-18 mg/dl Creatinine 1.93 0.60-1.20 mg/dl Est Creatinine Clear Calc Drug Dose 39.5 ml/min Estimated GFR () 35.8 Estimated GFR (Non- 30.9 BUN/Creatinine Ratio 12.1 10-20 Random Glucose 183 70-99 mg/dl Calcium Level 8.5 8.5-10.1 mg/dl Ionized Calcium 1.15 1.12-1.32 mmol/l Phosphorus Level 2.4 2.5-4.9 mg/dl Magnesium Level 2.2 1.8-2.4 mg/dl Total Bilirubin 0.7 0.2-1 mg/dl Aspartate Amino Transf (AST/SGOT) 54 15-37 U/L Alanine Aminotransferase (ALT/SGPT) 46 12-78 U/L Alkaline Phosphatase 130 45-117 U/L Total Protein 6.2 6.4-8.2 gm/dl Albumin 2.6 3.4-5.0 gm/dl Globulin 3.6 2.5-4.0 gm/dl Albumin/Globulin Ratio 0.7 0.9-2 Bedside Glucose 170 179 163 70-90 mg/dl Test 04/21/17 01:54 04/21/17 02:01 04/21/17 04:04 04/21/17 05:16 Range/Units Bedside Glucose 157 160 70-90 mg/dl White Blood Count 9.06 4.8-10.8 K/uL Red Blood Count 3.75 4.2-5.4 M/uL Hemoglobin 9.3 12.0-16.0 g/dL Hematocrit 28.2 37-47 % Mean Corpuscular Volume 75.2 80-100 fL Mean Corpuscular Hemoglobin 24.8 25-34 pg Mean Corpuscular Hemoglobin Concent 33.0 32-36 g/dl Platelet Count 247 130-400 K/uL Mean Platelet Volume 9.0 7.4-10.4 fL Neutrophils (%) (Auto) 73.1 % Lymphocytes (%) (Auto) 15.7 % Monocytes (%) (Auto) 9.5 % Eosinophils (%) (Auto) 1.0 % Basophils (%) (Auto) 0.3 % Neutrophils # (Auto) 6.62 1.4-6.5 K/uL Lymphocytes # (Auto) 1.42 1.2-3.4 K/uL Monocytes # (Auto) 0.86 0.11-0.59 K/uL Eosinophils # (Auto) 0.09 0-0.5 K/uL Basophils # (Auto) 0.03 0-0.2 K/uL RDW Standard Deviation 44.9 36.4-46.3 fL RDW Coefficient of Variation 16.5 11.5-14.5 % Immature Granulocyte % (Auto) 0.4 % Immature Granulocyte # (Auto) 0.04 0.00-0.02 K/uL Sodium Level 142 146 136-145 mmol/L Potassium Level 2.7 3.3 3.5-5.1 mmol/L Chloride Level 114 115 98-107 mmol/L Carbon Dioxide Level 23 22 21-32 mmol/L Anion Gap 5.0 8.0 3-11 mmol/L Blood Urea Nitrogen 24 23 7-18 mg/dl Creatinine 1.87 1.81 0.60-1.20 mg/dl Est Creatinine Clear Calc Drug Dose 40.7 41.6 ml/min Estimated GFR () 37.2 38.7 Estimated GFR (Non- 32.1 33.4 BUN/Creatinine Ratio 12.8 12.7 10-20 Random Glucose 156 161 70-99 mg/dl Lactic Acid Level < 0.1 0.4-2.0 mmol/L Calcium Level 8.4 9.2 8.5-10.1 mg/dl Ionized Calcium 1.10 1.22 1.12-1.32 mmol/l Phosphorus Level 2.4 3.8 2.5-4.9 mg/dl Magnesium Level 2.2 2.2 1.8-2.4 mg/dl Total Bilirubin 0.9 1.0 0.2-1 mg/dl Aspartate Amino Transf (AST/SGOT) 44 46 15-37 U/L Alanine Aminotransferase (ALT/SGPT) 43 45 12-78 U/L Alkaline Phosphatase 118 125 45-117 U/L Total Protein 6.1 6.1 6.4-8.2 gm/dl Albumin 2.5 2.5 3.4-5.0 gm/dl Globulin 3.6 3.6 2.5-4.0 gm/dl Albumin/Globulin Ratio 0.7 0.7 0.9-2 Prothrombin Time 9.9 9.0-12.0 SECONDS Prothromb Time International Ratio 0.9 0.9-1.1 Activated Partial Thromboplast Time 28.6 21.0-31.0 SECONDS Partial Thromboplastin Ratio 1.1 Total Creatine Kinase 72 26-192 U/L Amylase Level 62 25-115 U/L Lipase 651 73-393 U/L Procalcitonin 2.18 0-0.5 ng/ml Random Vancomycin Level 14.1 mcg/ml Test 04/21/17 05:54 04/21/17 07:59 04/21/17 08:40 04/21/17 09:05 Range/Units Bedside Glucose 156 163 70-90 mg/dl Blood Gas Sample Site Art Line Bedside Blood Gas pH (LAB) 7.50 7.35-7.45 Bedside Blood Gas pCO2 (LAB) 22 35-46 mmHg Bedside Blood Gas pO2 (LAB) 99 80-95 mmHg Bedside Blood Gas HCO3 (LAB) 18 19-24 meq/L Bedside Blood Gas Total CO2 18 24-31 mEq/l Bedside Blood Gas Base Excess (LAB) -5.0 -9-1.8 meq/L Bedside Blood Gas O2 Saturation 98.0 90-95 % Mickey Test NA Oxygen Delivery Device Room Air Ammonia 47.0 11-32 umol/L Triglycerides Level 710 0-150 mg/dl Test 04/21/17 10:02 04/21/17 14:00 Range/Units Bedside Glucose 163 70-90 mg/dl
[2017-04-21] MEDS ORDERED: ACETAMINOPHEN IV 650 MG in EMPTY BAG 0 ML IV PRN (13:45)
--- NOTE | 2017-04-21 15:03 | Infectious Disease Progress Nt ---
Progress Note Date of Service Apr 21, 2017. Subjective Pt evaluation today including: conversation w/ patient, physical exam, chart review, lab review, review of studies, conversation w/ client consultant, review of inpatient medication list Patient much more confused today. On nicardipine drip for hypertension. Blood cultures remain negative. All Other Systems: Reviewed and Negative Medications Current Inpatient Medications Medications (Trade) Dose Ordered Sig/Yudy Route Start Time Stop Time Status Last Admin Dose Admin Glucose (Glucose 40% Gel) UD PRN PO 04/17/17 15:00 05/17/17 14:59 Glucose (Glucose Chew Tab) 1 tabs UD PRN PO 04/17/17 15:00 05/17/17 14:59 Dextrose (Dextrose 50% 50ML Syringe) 50 ml UD PRN IV 04/17/17 15:00 05/17/17 14:59 Glucagon (Glucagon Inj) 1 mg UD PRN SQ 04/17/17 15:00 05/17/17 14:59 Insulin Aspart (novoLOG ASPART) [facility] SC 04/17/17 17:30 04/21/17 16:59 Miscellaneous Information (Consult Glycemic Management Pharmacy) 1 ea UD PRN N/A 04/17/17 15:45 05/17/17 15:44 Heparin Sodium (Porcine) (Heparin Sq 5000 Unit/0.5ml) 5,000 unit Q8 SQ 04/17/17 22:00 05/17/17 21:59 04/21/17 14:54 5,000 UNIT Acetaminophen (Tylenol Tab) 650 mg Q4H PRN PO 04/17/17 16:00 05/17/17 15:59 Ondansetron HCl (Zofran Inj) 4 mg Q6H PRN IV 04/17/17 16:00 05/17/17 15:59 Albuterol (Ventolin Hfa Inhaler) 2 puffs Q4H PRN INH 04/17/17 16:15 05/17/17 16:14 Amlodipine Besylate (Norvasc Tab) 5 mg QAM PO 04/18/17 09:00 05/18/17 08:59 04/21/17 09:00 5 MG Atorvastatin Calcium (Lipitor Tab) 10 mg DAILY PO 04/18/17 09:00 05/18/17 08:59 Future Hold Duloxetine HCl (Cymbalta Cap) 60 mg QPM PO 04/17/17 21:00 05/17/17 20:59 Future Hold 04/17/17 20:52 60 MG Pregabalin (Lyrica Cap) 50 mg QPM PO 04/17/17 21:00 05/17/17 20:59 Future Hold 04/17/17 20:55 50 MG Topiramate (Topamax Tab) 75 mg QPM PO 04/18/17 21:00 05/18/17 20:59 Future Hold Vancomycin HCl (Consult) 1 ea UD PRN N/A 04/17/17 16:27 05/17/17 16:26 Famotidine 20 mg/ Syringe 5 ml @ 2.5 mls/min Q12H IV 04/17/17 18:00 05/17/17 17:59 04/21/17 05:44 2.5 MLS/MIN Insulin Human Regular 250 units/ Sodium Chloride 252.5 ml @ 0 mls/hr Q24H IV 04/18/17 15:00 04/21/17 17:00 04/20/17 14:44 4 MLS/HR Piperacillin Sod/ Tazobactam Sod (Consult) 1 ea UD PRN N/A 04/19/17 07:15 05/19/17 07:14 Propranolol HCl (Inderal Tab) 120 mg BID PO 04/19/17 09:37 05/19/17 09:36 04/21/17 08:57 120 MG Vancomycin HCl (Vancomycin Oral Soln) 250 mg Q6 PO 04/20/17 12:00 05/04/17 11:59 04/21/17 12:36 250 MG Raspberry (Raspberry Syrup 5ml Cup) 5 ml Q6 PO 04/20/17 12:00 05/04/17 11:59 04/21/17 12:37 5 ML Piperacillin Sod/ Tazobactam Sod 3.375 gm/Dextrose 115 ml @ 28.75 mls/ hr Q8H IV 04/20/17 20:00 04/29/17 19:59 04/21/17 12:37 28.75 MLS/HR Nicardipine HCl 25 mg/Sodium Chloride 250 ml @ 0 mls/hr Q0M PRN IV 04/20/17 20:47 05/20/17 20:46 04/21/17 14:46 12 MLS/HR Vancomycin HCl 1250 mg/Sodium Chloride 275 ml @ 125 mls/hr Q28H IV 04/21/17 07:30 04/27/17 07:29 04/21/17 08:56 125 MLS/HR Miscellaneous Information (Dc Iv Insulin Infusion) 1 ea ONE ONCE N/A 04/21/17 17:00 04/21/17 17:01 Insulin Glargine (Lantus Solostar Pen) see protocol Q12 SC 04/21/17 21:00 05/21/17 20:59 Insulin Aspart (novoLOG ASPART) Q6H SC 04/21/17 17:01 05/21/17 17:00 Acetaminophen 650 mg/Empty Bag 65 ml @ 260 mls/hr Q6H PRN IV 04/21/17 13:45 05/21/17 13:44 Objective Vital Signs Date Time Temp Pulse Resp B/P (MAP) Pulse Ox O2 Delivery O2 Flow Rate FiO2 04/21/17 12:15 97 Room Air 04/21/17 09:45 87 18 170/83 (112) 97 Room Air 04/21/17 09:30 90 16 177/87 (117) 97 04/21/17 09:15 93 14 177/80 (112) 93 04/21/17 09:06 96 15 199/88 (125) 98 04/21/17 09:00 94 19 179/83 (115) 97 04/21/17 08:45 97 14 187/86 (119) 96 04/21/17 08:30 37.1 90 21 180/82 (114) 96 Room Air 04/21/17 08:30 96 Room Air 04/21/17 08:15 96 14 188/63 (104) 96 04/21/17 08:01 92 17 206/85 (125) 100 04/21/17 08:00 Room Air 04/21/17 08:00 94 16 185/93 (123) 100 04/21/17 07:45 95 14 186/85 (118) 96 04/21/17 07:30 95 29 191/84 (119) 93 04/21/17 07:15 92 14 175/78 (110) 97 04/21/17 07:00 93 20 178/80 (112) 100 04/21/17 06:00 92 17 175/83 (113) 95 Room Air 04/21/17 04:00 96 Room Air 04/21/17 04:00 36.9 90 22 174/77 (109) 96 Room Air 04/21/17 02:00 96 22 172/91 (118) 96 Room Air 04/21/17 00:01 36.8 96 20 150/75 (100) 96 Room Air 04/20/17 23:59 96 Room Air 04/20/17 22:00 95 26 182/79 (113) 95 Room Air 04/20/17 20:00 98 Room Air 04/20/17 20:00 36.8 99 22 214/88 (130) 98 Room Air 04/20/17 18:00 96 25 195/110 (138) 97 Room Air 208/96 (133) 04/20/17 16:00 36.6 97 19 178/106 (130) 98 Room Air 174/74 (107) 04/20/17 16:00 Room Air Physical Exam General Appearance: WD/WN, no apparent distress, + obese Eyes: normal inspection, sclerae normal ENT: normal ENT inspection, pharynx normal Neck: supple, no adenopathy, trachea midline Respiratory/Chest: chest non-tender, lungs clear, normal breath sounds, no respiratory distress Cardiovascular: regular rate, rhythm, no gallop, no murmur Abdomen: normal bowel sounds, non tender, soft, no organomegaly Extremities: non-tender, + pedal edema Neurologic/Psychiatric: alert, + disoriented Skin: normal color, no rash, + pertinent finding (Multiple scars on extremities ) Lymphatic: no adenopathy Laboratory Results RUN DATE: 04/19/17 [facility] LAB PAGE 1 RUN TIME: 0746 Specimen Inquiry PATIENT: AMBIKA CORCORAN LOC: [facility] U # : [id number] AGE/SX: 42/F ROOM: E102 REG : 04/17/[address]: Marychuy Riley M.D. : 1975 BED: 1 DIS : STATUS: ADM IN TLOC: SPEC #: [id number] JOHAN: 04/17/17-1351 STATUS: RES REQ #: [id number] RECD: 04/17/17-[address]: Lev Gan M.D. SOURCE: BLOOD ENTR: 04/17/17-[address] [facility] [address]: Wiliam Garsia M.D. [facility]: ORDERED: BLOOD CULTURE Procedure Result Verified Site BLD CULT Preliminary 04/19/17-0746 NO GROWTH TO DATE. Last 24 Hours Test 04/20/17 15:20 04/20/17 16:29 04/20/17 16:32 04/20/17 17:52 Bedside Glucose 167 mg/dl 169 mg/dl 187 mg/dl Blood Gas Sample Site Art Line Bedside Blood Gas pH (LAB) 7.45 Bedside Blood Gas pCO2 (LAB) 25 mmHg Bedside Blood Gas pO2 (LAB) 81 mmHg Bedside Blood Gas HCO3 (LAB) 17 meq/L Bedside Blood Gas Total CO2 18 mEq/l Bedside Blood Gas Base Excess (LAB) -7.0 meq/L Bedside Blood Gas O2 Saturation 97.0 % Mickey Test NA Oxygen Delivery Device Cannula Test 04/20/17 19:58 04/20/17 20:00 04/20/17 22:10 04/20/17 23:48 Sodium Level 142 mmol/L Potassium Level 3.3 mmol/L Chloride Level 113 mmol/L Carbon Dioxide Level 21 mmol/L Anion Gap 8.0 mmol/L Blood Urea Nitrogen 23 mg/dl Creatinine 1.93 mg/dl Est Creatinine Clear Calc Drug Dose 39.5 ml/min Estimated GFR () 35.8 Estimated GFR (Non- 30.9 BUN/Creatinine Ratio 12.1 Random Glucose 183 mg/dl Calcium Level 8.5 mg/dl Ionized Calcium 1.15 mmol/l Phosphorus Level 2.4 mg/dl Magnesium Level 2.2 mg/dl Total Bilirubin 0.7 mg/dl Aspartate Amino Transf (AST/SGOT) 54 U/L Alanine Aminotransferase (ALT/SGPT) 46 U/L Alkaline Phosphatase 130 U/L Total Protein 6.2 gm/dl Albumin 2.6 gm/dl Globulin 3.6 gm/dl Albumin/Globulin Ratio 0.7 Bedside Glucose 170 mg/dl 179 mg/dl 163 mg/dl Test 1/12/18 01:54 04/21/17 02:01 04/21/17 04:04 04/21/17 05:16 Bedside Glucose 157 mg/dl 160 mg/dl White Blood Count 9.06 K/uL Red Blood Count 3.75 M/uL Hemoglobin 9.3 g/dL Hematocrit 28.2 % Mean Corpuscular Volume 75.2 fL Mean Corpuscular Hemoglobin 24.8 pg Mean Corpuscular Hemoglobin Concent 33.0 g/dl Platelet Count 247 K/uL Mean Platelet Volume 9.0 fL Neutrophils (%) (Auto) 73.1 % Lymphocytes (%) (Auto) 15.7 % Monocytes (%) (Auto) 9.5 % Eosinophils (%) (Auto) 1.0 % Basophils (%) (Auto) 0.3 % Neutrophils # (Auto) 6.62 K/uL Lymphocytes # (Auto) 1.42 K/uL Monocytes # (Auto) 0.86 K/uL Eosinophils # (Auto) 0.09 K/uL Basophils # (Auto) 0.03 K/uL RDW Standard Deviation 44.9 fL RDW Coefficient of Variation 16.5 % Immature Granulocyte % (Auto) 0.4 % Immature Granulocyte # (Auto) 0.04 K/uL Sodium Level 142 mmol/L 146 mmol/L Potassium Level 2.7 mmol/L 3.3 mmol/L Chloride Level 114 mmol/L 115 mmol/L Carbon Dioxide Level 23 mmol/L 22 mmol/L Anion Gap 5.0 mmol/L 8.0 mmol/L Blood Urea Nitrogen 24 mg/dl 23 mg/dl Creatinine 1.87 mg/dl 1.81 mg/dl Est Creatinine Clear Calc Drug Dose 40.7 ml/min 41.6 ml/min Estimated GFR () 37.2 38.7 Estimated GFR (Non- 32.1 33.4 BUN/Creatinine Ratio 12.8 12.7 Random Glucose 156 mg/dl 161 mg/dl Lactic Acid Level < 0.1 mmol/L Calcium Level 8.4 mg/dl 9.2 mg/dl Ionized Calcium 1.10 mmol/l 1.22 mmol/l Phosphorus Level 2.4 mg/dl 3.8 mg/dl Magnesium Level 2.2 mg/dl 2.2 mg/dl Total Bilirubin 0.9 mg/dl 1.0 mg/dl Aspartate Amino Transf (AST/SGOT) 44 U/L 46 U/L Alanine Aminotransferase (ALT/SGPT) 43 U/L 45 U/L Alkaline Phosphatase 118 U/L 125 U/L Total Protein 6.1 gm/dl 6.1 gm/dl Albumin 2.5 gm/dl 2.5 gm/dl Globulin 3.6 gm/dl 3.6 gm/dl Albumin/Globulin Ratio 0.7 0.7 Prothrombin Time 9.9 SECONDS Prothromb Time International Ratio 0.9 Activated Partial Thromboplast Time 28.6 SECONDS Partial Thromboplastin Ratio 1.1 Total Creatine Kinase 72 U/L Amylase Level 62 U/L Lipase 651 U/L Procalcitonin 2.18 ng/ml Random Vancomycin Level 14.1 mcg/ml Test 04/21/17 05:54 04/21/17 07:59 04/21/17 08:40 04/21/17 09:05 Bedside Glucose 156 mg/dl 163 mg/dl Blood Gas Sample Site Art Line Bedside Blood Gas pH (LAB) 7.50 Bedside Blood Gas pCO2 (LAB) 22 mmHg Bedside Blood Gas pO2 (LAB) 99 mmHg Bedside Blood Gas HCO3 (LAB) 18 meq/L Bedside Blood Gas Total CO2 18 mEq/l Bedside Blood Gas Base Excess (LAB) -5.0 meq/L Bedside Blood Gas O2 Saturation 98.0 % Mickey Test NA Oxygen Delivery Device Room Air Ammonia 47.0 umol/L Triglycerides Level 710 mg/dl Test 04/21/17 10:02 04/21/17 14:40 Bedside Glucose 163 mg/dl CT SCAN OF THE ABDOMEN AND PELVIS WITHOUT CONTRAST CLINICAL HISTORY: Sepsis, abdominal pain. History of colectomy for C. difficile. COMPARISON STUDY: 5-16 TECHNIQUE: CT scan of the abdomen and pelvis was performed from the lung bases to the proximal femurs. Images are reviewed in the axial, sagittal, and coronal planes. IV contrast was not administered for this examination. A dose lowering technique was utilized adhering to the principles of ALARA. CT DOSE: 669.87 mGy.cm FINDINGS: Lower chest: There are bilateral lower lobe groundglass nodular opacities, likely infectious/inflammatory. The largest is located within the left lower lobe measuring 1 cm. There is a nasogastric tube which passes into the stomach Liver: There is hepatic steatosis. The liver is enlarged measuring 24 cm. Gallbladder: Cholelithiasis Spleen: Normal in size and attenuation. Pancreas: Unremarkable. Adrenal glands: Unremarkable. Kidneys: There is mild nephromegaly. No solid renal masses are visualized. There is no significant hydronephrosis. There is mild nonspecific stranding within the Gerota's fascia on the left Bowel: There are no transition zones indicate bowel obstruction. The patient is status post a partial colectomy. Peritoneum: There is no intraperitoneal free air or abdominal ascites. Vasculature: The abdominal aorta is normal in course and caliber. There is a left femoral arterial catheter present Adenopathy: None. Pelvic viscera: There is a Cheng catheter. There is air within the bladder likely iatrogenic. Skeletal structures: There are postsurgical changes present within the lumbar spine IMPRESSION: 1. Postsurgical changes of a partial colectomy 2. No evidence of bowel obstruction. No evidence of free air 3. Cholelithiasis 4. Mild bilateral nephromegaly 5. Bilateral lower lobe groundglass pulmonary nodules, likely infectious/inflammatory 6. Hepatic steatosis. Hepatomegaly. Electronically signed by: Nael Walsh M.D. 04/21/2017 11:14 AM Assessment and Plan 42-year-old female with diabetes with prior episodes of sepsis, severe C difficile status post colectomy, and hidradenitis, who presents with evidence of sepsis with possible septic shock, with positive PCR for C diff. Not clear whether patient is carrier of C difficile or whether she may have active infection of residual colon or small bowel. CT scan suggests possibility of infectious pneumonitis. Would continue patient on Zosyn, would consider discontinuation of vancomycin given negative MRSA swab. Will discuss. Will follow.
[2017-04-21 15:24] LABS: ALBUMIN 2.6 gm/dl (3.4-5.0); CALCIUM 8.6 mg/dl (8.5-10.1); CREATININE 1.89 mg/dl (0.60-1.20); POTASSIUM 3.3 mmol/L (3.5-5.1)
[2017-04-21 15:41] LABS: PHOSPHORUS 2.1 mg/dl (2.5-4.9); TOTAL PROTEIN 6.4 gm/dl (6.4-8.2)
--- NOTE | 2017-04-21 16:15 | Neurology Consultation ---
Neurology Consultation Date of Consultation: Apr 21, 2017. Attending Physician: Marychuy Riley M.D. Primary Care Physician: Wiliam Garsia M.D. Reason for Consultation: encephalopathy/confusion History of Present Illness Source: patient, spouse Virginia is a 42 year old female who presents to the Emergency Room with complaints of worsening confusion starting several days ago. According to her mother in the ED the confusion had worsened. She felt dizzy, nauseous, and like she might pass out so she was not taking her medications in 2 days. She denies any vomiting, abdominal pain, chest pain. She had and episode in the past of C diff and ended up on life support and a colostomy which had since then been reversed. Her reports after that episode she took quite some time to recover from the confusion. She has a history of staph. She also had an episode in the past that she had an infection around her breast and had to be placed on dialysis and intubated. 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 She needed dialyzed. No source of infection was found. Currently she is awake and lying in bed her and aid is in the room. Her feels she is getting better and states she has a long recovery when she has infection or DKA. she states she has no pain, headache, neck pain, CP, SOB, abdominal pain, weakness, numbness tingling, N, V. Past Medical/Surgical History Medical Problems: (1) Abdominal pain Status: Acute (2) Confusion Status: Acute (3) Constipation Status: Acute (4) Dehydration Status: Acute (5) Dehydration Status: Acute (6) Hyperammonemia Status: Acute (7) Pneumonia Status: Acute Social History Smoking Status: Current every day smoker Drug Use: none Marital Status: Housing Status: lives with family Occupation Status: employed Allergies Coded Allergies: BEE STING (Verified Allergy, Intermediate, RED, SHORT OF BREATH, 04/17/17) Current Inpatient Medications Current Inpatient Medications Medications (Trade) Dose Ordered Sig/Yudy Route Start Time Stop Time Status Last Admin Dose Admin Glucose (Glucose 40% Gel) UD PRN PO 04/17/17 15:00 05/17/17 14:59 Glucose (Glucose Chew Tab) 1 tabs UD PRN PO 04/17/17 15:00 05/17/17 14:59 Dextrose (Dextrose 50% 50ML Syringe) 50 ml UD PRN IV 04/17/17 15:00 05/17/17 14:59 Glucagon (Glucagon Inj) 1 mg UD PRN SQ 04/17/17 15:00 05/17/17 14:59 Insulin Aspart (novoLOG ASPART) SLIDING SCALE HS SC 04/17/17 17:30 04/21/17 16:59 Miscellaneous Information (Consult Glycemic Management Pharmacy) 1 ea UD PRN N/A 04/17/17 15:45 05/17/17 15:44 Heparin Sodium (Porcine) (Heparin Sq 5000 Unit/0.5ml) 5,000 unit Q8 SQ 04/17/17 22:00 05/17/17 21:59 04/21/17 14:54 5,000 UNIT Acetaminophen (Tylenol Tab) 650 mg Q4H PRN PO 04/17/17 16:00 05/17/17 15:59 Ondansetron HCl (Zofran Inj) 4 mg Q6H PRN IV 04/17/17 16:00 05/17/17 15:59 Albuterol (Ventolin Hfa Inhaler) 2 puffs Q4H PRN INH 04/17/17 16:15 05/17/17 16:14 Amlodipine Besylate (Norvasc Tab) 5 mg QAM PO 04/18/17 09:00 05/18/17 08:59 04/21/17 09:00 5 MG Atorvastatin Calcium (Lipitor Tab) 10 mg DAILY PO 04/18/17 09:00 05/18/17 08:59 Future Hold Duloxetine HCl (Cymbalta Cap) 60 mg QPM PO 04/17/17 21:00 05/17/17 20:59 Future Hold 04/17/17 20:52 60 MG Pregabalin (Lyrica Cap) 50 mg QPM PO 04/17/17 21:00 05/17/17 20:59 Future Hold 04/17/17 20:55 50 MG Topiramate (Topamax Tab) 75 mg QPM PO 04/18/17 21:00 05/18/17 20:59 Future Hold Vancomycin HCl (Consult) 1 ea UD PRN N/A 04/17/17 16:27 05/17/17 16:26 Famotidine 20 mg/ Syringe 5 ml @ 2.5 mls/min Q12H IV 04/17/17 18:00 05/17/17 17:59 04/21/17 05:44 2.5 MLS/MIN Insulin Human Regular 250 units/ Sodium Chloride 252.5 ml @ 0 mls/hr Q24H IV 04/18/17 15:00 04/21/17 17:00 04/20/17 14:44 4 MLS/HR Piperacillin Sod/ Tazobactam Sod (Consult) 1 ea UD PRN N/A 04/19/17 07:15 05/19/17 07:14 Propranolol HCl (Inderal Tab) 120 mg BID PO 04/19/17 09:37 05/19/17 09:36 04/21/17 08:57 120 MG Vancomycin HCl (Vancomycin Oral Soln) 250 mg Q6 PO 04/20/17 12:00 05/04/17 11:59 04/21/17 12:36 250 MG Raspberry (Raspberry Syrup 5ml Cup) 5 ml Q6 PO 04/20/17 12:00 05/04/17 11:59 04/21/17 12:37 5 ML Piperacillin Sod/ Tazobactam Sod 3.375 gm/Dextrose 115 ml @ 28.75 mls/ hr Q8H IV 04/20/17 20:00 04/29/17 19:59 04/21/17 12:37 28.75 MLS/HR Nicardipine HCl 25 mg/Sodium Chloride 250 ml @ 0 mls/hr Q0M PRN IV 04/20/17 20:47 05/20/17 20:46 04/21/17 14:46 12 MLS/HR Vancomycin HCl 1250 mg/Sodium Chloride 275 ml @ 125 mls/hr Q28H IV 04/21/17 07:30 04/27/17 07:29 04/21/17 08:56 125 MLS/HR Miscellaneous Information (Dc Iv Insulin Infusion) 1 ea ONE ONCE N/A 04/21/17 17:00 04/21/17 17:01 Insulin Glargine (Lantus Solostar Pen) see protocol Q12 SC 04/21/17 21:00 05/21/17 20:59 Insulin Aspart (novoLOG ASPART) Q6H SC 1/12/18 17:01 05/21/17 17:00 Acetaminophen 650 mg/Empty Bag 65 ml @ 260 mls/hr Q6H PRN IV 04/21/17 13:45 05/21/17 13:44 Physical Exam Vital Signs (Past 24 Hrs): Date Time Temp Pulse Resp B/P (MAP) Pulse Ox O2 Delivery O2 Flow Rate FiO2 04/21/17 14:30 84 17 191/92 (125) 99 04/21/17 14:01 87 22 184/94 (124) 98 Room Air 04/21/17 14:00 87 20 175/92 (119) 96 04/21/17 13:30 89 20 175/84 (114) 97 Room Air 04/21/17 13:00 87 19 135/91 (106) 100 Room Air 04/21/17 12:30 87 27 178/85 (116) 96 04/21/17 12:15 97 Room Air 04/21/17 12:00 36.7 78 20 149/95 (113) 96 Room Air 04/21/17 11:30 87 17 99 04/21/17 11:13 87 24 126/80 (95) 99 04/21/17 10:30 84 19 175/84 (114) 96 04/21/17 10:00 83 26 172/85 (114) 94 04/21/17 09:45 87 18 170/83 (112) 97 Room Air 04/21/17 09:30 90 16 177/87 (117) 97 04/21/17 09:15 93 14 177/80 (112) 93 04/21/17 09:06 96 15 199/88 (125) 98 04/21/17 09:00 94 19 179/83 (115) 97 04/21/17 08:45 97 14 187/86 (119) 96 04/21/17 08:30 37.1 90 21 180/82 (114) 96 Room Air 04/21/17 08:30 96 Room Air 04/21/17 08:15 96 14 188/63 (104) 96 04/21/17 08:01 92 17 206/85 (125) 100 04/21/17 08:00 Room Air 04/21/17 08:00 94 16 185/93 (123) 100 04/21/17 07:45 95 14 186/85 (118) 96 04/21/17 07:30 95 29 191/84 (119) 93 04/21/17 07:15 92 14 175/78 (110) 97 04/21/17 07:00 93 20 178/80 (112) 100 04/21/17 06:00 92 17 175/83 (113) 95 Room Air 04/21/17 04:00 96 Room Air 04/21/17 04:00 36.9 90 22 174/77 (109) 96 Room Air 04/21/17 02:00 96 22 172/91 (118) 96 Room Air 04/21/17 00:01 36.8 96 20 150/75 (100) 96 Room Air 04/20/17 23:59 96 Room Air 04/20/17 22:00 95 26 182/79 (113) 95 Room Air 04/20/17 20:00 98 Room Air 04/20/17 20:00 36.8 99 22 214/88 (130) 98 Room Air 04/20/17 18:00 96 25 195/110 (138) 97 Room Air 208/96 (133) 04/20/17 16:00 36.6 97 19 178/106 (130) 98 Room Air 174/74 (107) 04/20/17 16:00 Room Air Physical Exam: Constitutional: appearance nourished, flushed, warm Ears, Nose, Mouth and Throat: mucous membranes moist, no injection and skin normal, eyes normal Cardiovascular: normal S-1 and S-2 and regular rate and rhythm Respiratory: clear to auscultation (CTA) and no rales, rhonchi or wheeze Musculoskeletal: decreased distal pulses, neck is supple, no nuchal rigidity Skin: flushed clammy Eyes: extraocular muscles intact (EOMI) and pupils equal, pupils dilated reactive NEUROLOGIC EXAMINATION: Mental status: Alert and interactive she is able to identify she is in a hospital, her and his name, know she has one son and his name Speech fluent with no evidence of aphasia, appears somewhat confused but easily redirected Cranial Nerves smile eye brow raise symmetric Reflexes: Deep tendon reflexes were symmetrical and graded 2/5. Plantar responses were flexor. Sensory: no sensation loss to light touch Coordination: finger to nose with no bi pass Gait/Stance: Posture lying in bed able to roll over and reposition without help Strength: biceps triceps hand lead pressman 5/5 bilaterally, hip flex patellar flex ext plantar flex ext 5/5 bilaterally Laboratory Results Past 24 Hours: 04/21/17 02:01 Red Blood Count 3.75, Mean Corpuscular Volume 75.2, Mean Corpuscular Hemoglobin 24.8, Mean Corpuscular Hemoglobin Concent 33.0, Mean Platelet Volume 9.0, Neutrophils (%) (Auto) 73.1, Lymphocytes (%) (Auto) 15.7, Monocytes (%) (Auto) 9.5, Eosinophils (%) (Auto) 1.0, Basophils (%) (Auto) 0.3, Neutrophils # (Auto) 6.62, Lymphocytes # (Auto) 1.42, Monocytes # (Auto) 0.86, Eosinophils # (Auto) 0.09, Basophils # (Auto) 0.03 04/21/17 14:40 Test 04/21/17 02:01 04/21/17 05:16 04/21/17 08:40 04/21/17 09:05 White Blood Count 9.06 K/uL (4.8-10.8) Red Blood Count 3.75 M/uL (4.2-5.4) Hemoglobin 9.3 g/dL (12.0-16.0) Hematocrit 28.2 % (37-47) Mean Corpuscular Volume 75.2 fL (80-100) Mean Corpuscular Hemoglobin 24.8 pg (25-34) Mean Corpuscular Hemoglobin Concent 33.0 g/dl (32-36) Platelet Count 247 K/uL (130-400) Mean Platelet Volume 9.0 fL (7.4-10.4) Neutrophils (%) (Auto) 73.1 % Lymphocytes (%) (Auto) 15.7 % Monocytes (%) (Auto) 9.5 % Eosinophils (%) (Auto) 1.0 % Basophils (%) (Auto) 0.3 % Neutrophils # (Auto) 6.62 K/uL (1.4-6.5) Lymphocytes # (Auto) 1.42 K/uL (1.2-3.4) Monocytes # (Auto) 0.86 K/uL (0.11-0.59) Eosinophils # (Auto) 0.09 K/uL (0-0.5) Basophils # (Auto) 0.03 K/uL (0-0.2) RDW Standard Deviation 44.9 fL (36.4-46.3) RDW Coefficient of Variation 16.5 % (11.5-14.5) Immature Granulocyte % (Auto) 0.4 % Immature Granulocyte # (Auto) 0.04 K/uL (0.00-0.02) Lactic Acid Level < 0.1 mmol/L (0.4-2.0) Prothrombin Time 9.9 SECONDS (9.0-12.0) Prothromb Time International Ratio 0.9 (0.9-1.1) Activated Partial Thromboplast Time 28.6 SECONDS (21.0-31.0) Partial Thromboplastin Ratio 1.1 Total Creatine Kinase 72 U/L (26-192) Amylase Level 62 U/L (25-115) Lipase 651 U/L (73-393) Procalcitonin 2.18 ng/ml (0-0.5) Random Vancomycin Level 14.1 mcg/ml Blood Gas Sample Site Art Line Bedside Blood Gas pH (LAB) 7.50 (7.35-7.45) Bedside Blood Gas pCO2 (LAB) 22 mmHg (35-46) Bedside Blood Gas pO2 (LAB) 99 mmHg (80-95) Bedside Blood Gas HCO3 (LAB) 18 meq/L (19-24) Bedside Blood Gas Total CO2 18 mEq/l (24-31) Bedside Blood Gas Base Excess (LAB) -5.0 meq/L (-9-1.8) Bedside Blood Gas O2 Saturation 98.0 % (90-95) Mickey Test NA Oxygen Delivery Device Room Air Ammonia 47.0 umol/L (11-32) Triglycerides Level 710 mg/dl (0-150) Test 04/21/17 10:02 04/21/17 14:40 Bedside Glucose 163 mg/dl (70-90) Anion Gap 8.0 mmol/L (3-11) Est Creatinine Clear Calc Drug Dose 39.9 ml/min Estimated GFR () 36.8 Estimated GFR (Non- 31.7 BUN/Creatinine Ratio 11.9 (10-20) Calcium Level 8.6 mg/dl (8.5-10.1) Ionized Calcium 1.12 mmol/l (1.12-1.32) Magnesium Level 2.2 mg/dl (1.8-2.4) Aspartate Amino Transf (AST/SGOT) 93 U/L (15-37) Alanine Aminotransferase (ALT/SGPT) 69 U/L (12-78) Albumin 2.6 gm/dl (3.4-5.0) Imaging CT head- Minimal disconjugate ocular gaze No acute intracranial findings US renal- There is no hydronephrosis. Although decompressed around a Cheng catheter the bladder wall appears thickened. Correlation with clinical findings and urinalysis will be required. There is trace nonspecific bilateral perinephric fluid. Hepatomegaly and severe hepatic steatosis. CT abdomen- . Postsurgical changes of a partial colectomy No evidence of bowel obstruction. No evidence of free air Cholelithiasis Mild bilateral nephromegaly Bilateral lower lobe groundglass pulmonary nodules, likely infectious/inflammatory Hepatic steatosis. Hepatomegaly. Impression 42 year old female with significant PMH sepsis, DM, renal and hepatic issues with encephalopathy Plan 1. ID - c diff + - may be carrier or residual from colostomy-no other source found at this point- blood cultures negative to date 2. encephalopathy - is likely multi factorial -metabolic, bacterial, viral 3. neck is supple- at this point no need for LP but if patient does not improve may be an option 4. MRI may be helpful but at this time not likely productive 5. continue to monitor metabolic issues and correct 6. patient appears to be improving will continue to follow along with you 7. 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
[2017-04-21] MEDS ORDERED: DC IV INSULIN INFUSION ONE (17:00)
[2017-04-21] MEDS: INSULIN REGULAR 250 UNITS in SODIUM CHLORIDE 0.9% 250ML 250 ML IV SCH (19:21)
[2017-04-21] MEDS: NICARDIPINE IV PRN (20:05)
[2017-04-21] MEDS: SODIUM CHLORIDE 0.9% IV PRN (20:05)
[2017-04-21] MEDS: INSULIN GLARGINE SOLOSTAR 100 UNITS/ML 3 ML PEN SC SCH (20:07)
[2017-04-21 22:49] LABS: ALBUMIN 2.6 gm/dl (3.4-5.0); CALCIUM 8.4 mg/dl (8.5-10.1); CREATININE 1.69 mg/dl (0.60-1.20); POTASSIUM 3.1 mmol/L (3.5-5.1)
[2017-04-21 23:05] LABS: PHOSPHORUS 2.9 mg/dl (2.5-4.9); TOTAL PROTEIN 6.6 gm/dl (6.4-8.2)
[2017-04-21] MEDS ORDERED: POTASSIUM CHLR 20 MEQ / WTR 20 MEQ in PREMIXED WATER 100 ML IV STA (23:10)
[2017-04-22] VITALS (24 sets, daily range): BP systolic 141–181; BP diastolic 87–111; PULSE 66–86; TEMP 36.5–36.8; O2SAT 97–100
[2017-04-22] MEDS ORDERED: POTASSIUM PHOS 3 MMOL/1 ML INFUSION IV STA (01:08)
[2017-04-22] MEDS ORDERED: POTASSIUM PHOSPHATE INJ 24 MMOL in SODIUM CHLORIDE 0.9% 500ML 500 ML IV ONE (01:15)
[2017-04-22] MEDS: PIPERACILL/TAZOBAC IV 3.375 GM in DEXTROSE 5% 100ML 100 ML IV SCH ×3 (03:14→20:52)
[2017-04-22] MEDS: INSULIN ASPART 100 UNITS/ML 3 ML PEN SC SCH ×5 (05:01→20:56)
[2017-04-22 05:14] LABS: BASO % 0.3 %; BASO ABS # 0.03 K/uL (0-0.2); EOS % 1.5 %; EOS ABS # 0.17 K/uL (0-0.5); HEMATOCRIT 27.8 % (37-47); HEMOGLOBIN 9.1 g/dL (12.0-16.0); IG# 0.07 K/uL (0.00-0.02); LYMPH % 17.5 %; LYMPH ABS # 2.02 K/uL (1.2-3.4); MEAN CELL VOLUME 77.2 fL (80-100); MEAN CORPUSCULAR HEMOGLOBIN 25.3 pg (25-34); MEAN CORPUSCULAR HGB CONC 32.7 g/dl (32-36); MEAN PLATELET VOLUME 8.9 fL (7.4-10.4); MONO % 9.9 %; MONO ABS # 1.14 K/uL (0.11-0.59); NEUT % 70.2 %; NEUT ABS # 8.11 K/uL (1.4-6.5); PLATELET COUNT 262 K/uL (130-400); RED CELL DISTRIBUTION WIDTH CV 16.4 % (11.5-14.5); RED CELL DISTRIBUTION WIDTH SD 46.1 fL (36.4-46.3); WHITE BLOOD COUNT 11.54 K/uL (4.8-10.8)
[2017-04-22] MEDS: VANCOMYCIN HCL 250 MG/5 ML SOLN PO SCH ×4 (05:32→23:24)
[2017-04-22] MEDS: RASPBERRY SYRUP 5 ML UDP PO SCH ×4 (05:32→23:24)
[2017-04-22] MEDS: FAMOTIDINE IV INJ 20 MG in SYRINGE 3 ML IV SCH ×2 (05:34→17:48)
[2017-04-22] MEDS: NICARDIPINE IV PRN ×2 (05:35→18:45)
[2017-04-22] MEDS: SODIUM CHLORIDE 0.9% IV PRN ×2 (05:35→18:45)
[2017-04-22 05:40] LABS: ALBUMIN 2.6 gm/dl (3.4-5.0); CALCIUM 7.9 mg/dl (8.5-10.1); CREATININE 1.77 mg/dl (0.60-1.20); PHOSPHORUS 3.2 mg/dl (2.5-4.9); POTASSIUM 3.8 mmol/L (3.5-5.1); TOTAL PROTEIN 6.3 gm/dl (6.4-8.2)
[2017-04-22] MEDS: HEPARIN SOD 5000 UNIT/0.5 ML CARP SQ SCH ×3 (05:40→20:55)
[2017-04-22] MEDS ORDERED: MAGNESIUM SULFATE 1GM / D5W 1 GM in PREMIXED IN D5W 100 ML IV STA ×2 (06:22→09:04)
[2017-04-22] MEDS: PROPRANOLOL HCL 80 MG TAB PO SCH ×2 (08:00→20:52)
[2017-04-22] MEDS: AMLODIPINE BESYLATE 5 MG TAB PO SCH (08:01)
[2017-04-22] MEDS: INSULIN GLARGINE SOLOSTAR 100 UNITS/ML 3 ML PEN SC SCH ×2 (08:32→20:54)
--- NOTE | 2017-04-22 08:43 | Pharmacy Progress Note ---
Pharmacy Abx Dose Short Note Date of Service Apr 22, 2017. Assessment & Plan Assessment 42 year old female receiving Vanco/Zosyn for treatment of infxn of unknown source Day # 6 of antimicrobial therapy. Plan 04/22/17 Ms. Hernandez's renal fxn has remained somewhat stable for the past 72hours. She did receive HD 04/21/17, no further dialysis planned at this juncture. Given the steadiness of her renal fxn, will trial for Vanco 1250mg (~14mg/kg) q20. Dosing interval being adjusted from q28 -->q20. Pt population p'kinetics: t1/2: 17hrs, ke:0.0401, Vd: 0.7. Next dose: Vanco 1250mg at 1600 04/22/17 Trough ordered for 04/23/17 @ 1130 04/23/17 Trough looks good at 15.5mcg/mL. Slight improvement in renal fxn overnight. Will continue current regimen for now. If her renal fxn continues to improve, dose/interval may need adjusted. No further lvl ordered at this point in time. Pharmacy will continue to follow and will adjust dose/frequency as necessary. Thank you.
[2017-04-22] MEDS ORDERED: NURSING VERBAL MED ORDER ONE ×2 (09:00→16:15)
--- NOTE | 2017-04-22 09:48 | Pharmacy Progress Note ---
Glycemic: Assessment & Plan Date of Service Apr 22, 2017. Assessment & Plan ASSESSMENT: * Over the past 24 hrs the patient has received 70 units of sq insulin + IV insulin infusion * BSGs ranging 126 - 202 mg/dl over the past 24hrs. * All of insulin received is considered "basal" insulin since pt NPO * BSGs starting to trend upwards at 179, 202, 192 --> will increase basal insulin and continue to titrate daily * Pt starting a diet today. Will order CF/CR consistent with basal insulin dosing of ~80 -100 units/day PLAN: * Basal insulin: Lantus 30-50 units every 12 hours based on BSG * Correctional Insulin: Novolog Correction per scale ACHS Goal Range: Low 140 mg/dL - High 180 mg/dL Correction Factor: 10 mg/dL/unit * Prandial insulin: Per carb ratio of 1 unit per 4 grams CHO consumed BSGs continue to improve, no changes needed to inpatient regimen at this time. Pharmacy will continue to monitor patient daily and write orders per [facility] inpatient glycemic control protocol. Thanks. * Please note that the plan above was derived based on current level of insulin resistance and hospital stress. These recommendations are appropriate for inpatient admission only. Plan of care upon discharge will need to be reassessed to avoid potential outpatient hypo/hyperglycemia.
[2017-04-22] MEDS ORDERED: INSULIN ASPART 100 UNITS/ML 3 ML PEN SC SCH (12:00)
[2017-04-22] MEDS ORDERED: AMLODIPINE BESYLATE 5 MG TAB PO ONE (13:15)
--- NOTE | 2017-04-22 13:17 | Critical Care Progress Note ---
Critical Care Progress Note Date of Service Apr 22, 2017. Attending Dr. Vences Subjective Much improved today, AAO x 3,. A-line removed Ambulated to chair without problems, had lunch, tolerated well, no abdominal pain. Diuresed very well, 7750 ml without diuretics Objective General: Obese female, awake, alert, comfortable Heent: NC/AT Lungs: Clear to auscultation b/l CVS:S1S2 reg Abd: obese, soft Ext: trace pedal edema. B/l axillary old scarred lesions, multiple excoriations on both hands [employer] DES[employer]: AAO x 3, no focal deficits Assessment & Plan Problems: Diabetic ketoacidosis Severe sepsis with end-organ dysfunction Mixed gap-acidosis and non-gap acidosis Respiratory failure, s/p intubation Acute kidney injury, s/p HD x 1 Plan: [employer] DES[employer]ER: Encephalopathy resolved Multifactorial toxic-metabolic encephalopathy Pulmonary: No further issues, comfortable CVS: Off IV fluids. Tapering down nicardipine No need for diuretics Taking Norvasc, HCTZ, lisinopril and propranolol at home. No lisinopril for now secondary to OK Increase Norvasc to 10 mg daily Continue metoprolol Renal/metabolic: Acidosis improved remarkably after one session of HD yesterday. No further need for HD, catheter removed Off bicarb drip Off IV fluids. She is markedly positive, but no need for diuretics, she is autodiuresing very well. Probably a combination of fluid mobilization and post-ATN polyuria Monitor electrolytes every 8 hours for today as well, supplement as needed Ammonia level improved Endo: DKA resolved. Started on Lantus ID: Likely bacterial infection, unclear source. Procalcitonin quite elevated, improving C-diff positive. 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 Plus, she improved without any C-diff specific treatment Keep on vanco PO for now while on broad spectrum Abx Continue Vancomycin, Cefepime escalated to Zosyn Follow up cultures, negative so far Per patient, whenever she get infection in the axilla, her right breast hurts, and felt that way at home. I did not see signs of an infectious process on examination of the axilla and breast. She is asymptomatic now. GI: Tolerated diet Has significant hepatic steatosis Ammonia level decreased significantly Elevated TG. Probably the cause of her fatty liver infiltration. To be repeated and eventually treated. TG coming down today Probably has a component of pancreatitis as well, driven by high triglycerides, which in turn made could have led to DKA. TG have been coming down Ct abdomen reviewed, no evidence of any pathology to explain her symptoms Counseled the patient for dietary changes DVT prophylaxis: SC heparin Critical care time spent with patient, , reviewing chart, discussing with consultants, excluding procedures, greater than 25 minutes Consider transfer to monitored floor if she comes off nicardipine drip Consults & Procedures Consultants: Nephrology - Dr Oncu Procedures: Intubation 04/19/17 Right femoral dual-lumen HD catheter - 04/19/17 Left femoral artery a-line - 04/19/17 Extubation 04/20/17 Data Medications: Current Inpatient Medications Medications (Trade) Dose Ordered Sig/Yudy Route Start Time Stop Time Status Last Admin Dose Admin Glucose (Glucose 40% Gel) UD PRN PO 04/17/17 15:00 05/17/17 14:59 Glucose (Glucose Chew Tab) 1 tabs UD PRN PO 04/17/17 15:00 05/17/17 14:59 Dextrose (Dextrose 50% 50ML Syringe) 50 ml UD PRN IV 04/17/17 15:00 05/17/17 14:59 Glucagon (Glucagon Inj) 1 mg UD PRN SQ 04/17/17 15:00 05/17/17 14:59 Miscellaneous Information (Consult Glycemic Management Pharmacy) 1 ea UD PRN N/A 04/17/17 15:45 05/17/17 15:44 Heparin Sodium (Porcine) (Heparin Sq 5000 Unit/0.5ml) 5,000 unit Q8 SQ 04/17/17 22:00 05/17/17 21:59 04/22/17 05:40 5,000 UNIT Acetaminophen (Tylenol Tab) 650 mg Q4H PRN PO 04/17/17 16:00 05/17/17 15:59 Ondansetron HCl (Zofran Inj) 4 mg Q6H PRN IV 04/17/17 16:00 05/17/17 15:59 Albuterol (Ventolin Hfa Inhaler) 2 puffs Q4H PRN INH 04/17/17 16:15 05/17/17 16:14 Amlodipine Besylate (Norvasc Tab) 5 mg QAM PO 04/18/17 09:00 05/18/17 08:59 1/13/18 08:01 5 MG Atorvastatin Calcium (Lipitor Tab) 10 mg DAILY PO 04/18/17 09:00 05/18/17 08:59 Future Hold Duloxetine HCl (Cymbalta Cap) 60 mg QPM PO 04/17/17 21:00 05/17/17 20:59 Future Hold 04/17/17 20:52 60 MG Pregabalin (Lyrica Cap) 50 mg QPM PO 04/17/17 21:00 05/17/17 20:59 Future Hold 04/17/17 20:55 50 MG Topiramate (Topamax Tab) 75 mg QPM PO 04/18/17 21:00 05/18/17 20:59 Future Hold Vancomycin HCl (Consult) 1 ea UD PRN N/A 04/17/17 16:27 05/17/17 16:26 Famotidine 20 mg/ Syringe 5 ml @ 2.5 mls/min Q12H IV 04/17/17 18:00 05/17/17 17:59 04/22/17 05:34 2.5 MLS/MIN Piperacillin Sod/ Tazobactam Sod (Consult) 1 ea UD PRN N/A 04/19/17 07:15 05/19/17 07:14 Propranolol HCl (Inderal Tab) 120 mg BID PO 04/19/17 09:37 05/19/17 09:36 04/22/17 08:00 120 MG Vancomycin HCl (Vancomycin Oral Soln) 250 mg Q6 PO 04/20/17 12:00 05/04/17 11:59 04/22/17 11:44 250 MG Raspberry (Raspberry Syrup 5ml Cup) 5 ml Q6 PO 04/20/17 12:00 05/04/17 11:59 04/22/17 11:44 5 ML Piperacillin Sod/ Tazobactam Sod 3.375 gm/Dextrose 115 ml @ 28.75 mls/ hr Q8H IV 04/20/17 20:00 04/29/17 19:59 04/22/17 11:44 28.75 MLS/HR Insulin Glargine (Lantus Solostar Pen) see protocol Q12 SC 04/21/17 21:00 05/21/17 20:59 04/22/17 08:32 50 UNITS Acetaminophen 650 mg/Empty Bag 65 ml @ 260 mls/hr Q6H PRN IV 04/21/17 13:45 05/21/17 13:44 Nicardipine HCl 50 mg/Sodium Chloride 500 ml @ 0 mls/hr Q0M PRN IV 04/21/17 19:15 05/21/17 19:14 04/22/17 05:35 100 MLS/HR Vancomycin HCl 1250 mg/Sodium Chloride 275 ml @ 125 mls/hr Q18H IV 04/23/17 02:00 05/03/17 01:59 Insulin Aspart (novoLOG ASPART) SLIDING SCALE ACHS SC 04/22/17 09:00 05/22/17 08:59 04/22/17 11:41 16 UNITS Vital Signs: Date Time Temp Pulse Resp B/P (MAP) Pulse Ox O2 Delivery O2 Flow Rate FiO2 04/22/17 12:00 Room Air 04/22/17 12:00 36.8 75 21 141/92 (108) 99 Room Air 04/22/17 10:00 74 21 141/87 (105) 97 Room Air 04/22/17 08:00 36.8 81 23 149/93 (111) 99 Room Air 04/22/17 08:00 Room Air 04/22/17 06:00 83 24 166/100 99 04/22/17 05:30 83 20 161/103 97 04/22/17 05:00 84 26 172/102 99 04/22/17 04:00 100 Room Air 04/22/17 04:00 36.7 83 19 163/101 99 04/22/17 03:00 83 21 171/104 100 04/22/17 02:00 85 21 176/93 100 04/22/17 01:30 84 19 159/95 100 04/22/17 01:00 86 15 163/91 100 04/22/17 00:30 83 15 150/98 100 Arterial Line 04/22/17 00:00 82 22 165/106 100 04/21/17 23:59 100 Room Air 04/21/17 23:30 36.9 79 14 156/91 100 04/21/17 22:00 86 18 156/73 (100) 93 Room Air 04/21/17 21:00 85 15 167/94 (118) 98 Room Air 04/21/17 20:00 94 Room Air 04/21/17 20:00 36.8 88 19 161/96 (117) 94 Room Air 04/21/17 18:00 86 17 175/86 (115) 100 Room Air 04/21/17 16:00 93 Room Air 04/21/17 16:00 36.9 86 15 149/94 (112) 98 Room Air 04/21/17 14:30 84 17 191/92 (125) 99 04/21/17 14:01 87 22 184/94 (124) 98 Room Air 04/21/17 14:00 87 20 175/92 (119) 96 04/21/17 13:30 89 20 175/84 (114) 97 Room Air Laboratory Results: Last 24 Hours Test 04/21/17 14:07 04/21/17 14:40 04/21/17 16:00 04/21/17 17:56 Bedside Glucose 182 mg/dl 157 mg/dl 126 mg/dl Sodium Level 142 mmol/L Potassium Level 3.3 mmol/L Chloride Level 114 mmol/L Carbon Dioxide Level 20 mmol/L Anion Gap 8.0 mmol/L Blood Urea Nitrogen 22 mg/dl Creatinine 1.89 mg/dl Est Creatinine Clear Calc Drug Dose 39.9 ml/min Estimated GFR () 36.8 Estimated GFR (Non- 31.7 BUN/Creatinine Ratio 11.9 Random Glucose 182 mg/dl Calcium Level 8.6 mg/dl Ionized Calcium 1.12 mmol/l Phosphorus Level 2.1 mg/dl Magnesium Level 2.2 mg/dl Total Bilirubin 1.3 mg/dl Aspartate Amino Transf (AST/SGOT) 93 U/L Alanine Aminotransferase (ALT/SGPT) 69 U/L Alkaline Phosphatase 167 U/L Total Protein 6.4 gm/dl Albumin 2.6 gm/dl Globulin 3.8 gm/dl Albumin/Globulin Ratio 0.7 Test 04/21/17 20:05 04/21/17 21:53 04/21/17 23:13 04/22/17 04:38 Bedside Glucose 136 mg/dl 180 mg/dl 179 mg/dl Sodium Level 143 mmol/L Potassium Level 3.1 mmol/L Chloride Level 113 mmol/L Carbon Dioxide Level 17 mmol/L Anion Gap 13.0 mmol/L Blood Urea Nitrogen 25 mg/dl Creatinine 1.69 mg/dl Est Creatinine Clear Calc Drug Dose 44.6 ml/min Estimated GFR () 42.1 Estimated GFR (Non- 36.3 BUN/Creatinine Ratio 14.6 Random Glucose 180 mg/dl Calcium Level 8.4 mg/dl Ionized Calcium 1.05 mmol/l Phosphorus Level 2.9 mg/dl Magnesium Level 2.0 mg/dl Total Bilirubin 1.1 mg/dl Aspartate Amino Transf (AST/SGOT) 76 U/L Alanine Aminotransferase (ALT/SGPT) 74 U/L Alkaline Phosphatase 172 U/L Total Protein 6.6 gm/dl Albumin 2.6 gm/dl Globulin 4.0 gm/dl Albumin/Globulin Ratio 0.7 Test 04/22/17 04:58 04/22/17 05:27 04/22/17 06:10 04/22/17 08:21 White Blood Count 11.54 K/uL Red Blood Count 3.60 M/uL Hemoglobin 9.1 g/dL Hematocrit 27.8 % Mean Corpuscular Volume 77.2 fL Mean Corpuscular Hemoglobin 25.3 pg Mean Corpuscular Hemoglobin Concent 32.7 g/dl Platelet Count 262 K/uL Mean Platelet Volume 8.9 fL Neutrophils (%) (Auto) 70.2 % Lymphocytes (%) (Auto) 17.5 % Monocytes (%) (Auto) 9.9 % Eosinophils (%) (Auto) 1.5 % Basophils (%) (Auto) 0.3 % Neutrophils # (Auto) 8.11 K/uL Lymphocytes # (Auto) 2.02 K/uL Monocytes # (Auto) 1.14 K/uL Eosinophils # (Auto) 0.17 K/uL Basophils # (Auto) 0.03 K/uL RDW Standard Deviation 46.1 fL RDW Coefficient of Variation 16.4 % Immature Granulocyte % (Auto) 0.6 % Immature Granulocyte # (Auto) 0.07 K/uL Sodium Level 136 mmol/L Potassium Level 3.8 mmol/L Chloride Level 108 mmol/L Carbon Dioxide Level 18 mmol/L Anion Gap 10.0 mmol/L Blood Urea Nitrogen 21 mg/dl Creatinine 1.77 mg/dl Est Creatinine Clear Calc Drug Dose 42.6 ml/min Estimated GFR () 39.8 Estimated GFR (Non- 34.3 BUN/Creatinine Ratio 11.9 Random Glucose 202 mg/dl Calcium Level 7.9 mg/dl Phosphorus Level 3.2 mg/dl Magnesium Level 1.7 mg/dl Total Bilirubin 0.9 mg/dl Direct Bilirubin 0.4 mg/dl Aspartate Amino Transf (AST/SGOT) 63 U/L Alanine Aminotransferase (ALT/SGPT) 74 U/L Alkaline Phosphatase 179 U/L Total Protein 6.3 gm/dl Albumin 2.6 gm/dl Globulin 3.7 gm/dl Albumin/Globulin Ratio 0.7 Lipase 994 U/L Procalcitonin 0.96 ng/ml Random Vancomycin Level 15.9 mcg/ml Ionized Calcium 1.00 mmol/l Blood Gas Sample Site Art Line Bedside Blood Gas pH (LAB) 7.45 Bedside Blood Gas pCO2 (LAB) 23 mmHg Bedside Blood Gas pO2 (LAB) 87 mmHg Bedside Blood Gas HCO3 (LAB) 16 meq/L Bedside Blood Gas Total CO2 17 mEq/l Bedside Blood Gas Base Excess (LAB) -8.0 meq/L Bedside Blood Gas O2 Saturation 97.0 % Mickey Test NA Oxygen Delivery Device Room Air Bedside Glucose 192 mg/dl Test 04/22/17 11:27 Bedside Glucose 240 mg/dl
--- NOTE | 2017-04-22 13:37 | PROGRESS NOTE ---
DATE: 04/22/2017 DATE: 04/22/2017 [place] looks great today. She is sitting up in chair. She knows the location. She knows she is in the ICU. She knows the date. She knows the month. She knows the year. She has no recall of events of the past few days obviously when she was intubated and stuporous and comatose on sedation but is slowly coming out of her recovery period and now I would suspect is close to her old baseline. This is the third event of similar type that she has had over the past several years and apparently at one point she was in a stuporous state for almost 30 days after one of these toxic metabolic encephalopathic issues. I do not think she needs any further testing at this time. I will check back with her tomorrow. I would expect her however to have short periods of confusion for the next several days until things become a little more organized in her central nervous system. It is going to take time for her it to recover from to toxic and metabolic insults and whatever cerebral edematous changes and neurotransmitter dysfunction transpired and hopefully she will emerge from this without any significant residual damage. SHAUNA
[2017-04-22 14:55] LABS: ALBUMIN 2.7 gm/dl (3.4-5.0); CREATININE 1.88 mg/dl (0.60-1.20); POTASSIUM 3.3 mmol/L (3.5-5.1)
[2017-04-22 14:57] LABS: TOTAL PROTEIN 7.2 gm/dl (6.4-8.2)
[2017-04-22] MEDS: VANCOMYCIN INJ 1,250 MG in SODIUM CHLORIDE 0.9% 250ML 250 ML IV SCH (16:14)
[2017-04-22] MEDS ORDERED: POTASSIUM CHLORIDE PWD 20 MEQ PACK PO ONE (16:30)
--- NOTE | 2017-04-22 19:09 | Progress Note ---
Internal Med Progress Note Date of Service: Apr 22, 2017. Provider Documentation: SUBJECTIVE: more awake and alert today vitals remains stable OBJECTIVE: Vital Signs-as noted below Exam: General; no sign of distress, awake and alert Eyes-sclera injected ENT-dry oral mucosa , NG tube present Neck-tranche midline , no thyromegaly Lungs-no rales or wheeze Heart-regular S1/S2 , no JVD, no lower ext edema Abdomen-soft, non tender Extremities-multiple scab wounds in different stages of healing in both arms and hands Neuro-more oriented , awake alert , no sign of confusion Lab data as noted below. ASSESSMENT & PLAN: CONFUSION /ENCEPHALOPATHIC -resolved , awake and alert , conversing appropriately possible metabolic encephalopathy due to acute illness /infection /renal failure improved CT head with out contrast -no acute change noted appreciate Neuro eval RESPIRATORY FAILURE : resolved due to severe metabolic acidosis required mechanical ventilation metabolic acidosis corrected with dialysis extubated on 04/20/17 respiratory status remains stable TYPE 2 DM /POORLY COMPLIANT /DKA -has not been taking insulin for few days presents with DKA , severe metabolic acidosis , Hb A1c > 13 ( poorly controlled ) treated w ith IV Insulin GTT appreciate pharmacy input for glycemic management SEVERE METABOLIC ACIDOSIS : due to above corrected after dialysis Anion gap has resolved, Hco3 22 presented with Hco3 9 /AG >16 ABG shows pH 7.06/co2 22/PO2 120/Hco3 6 lactic acid -wnl pt treated with IV insulin gtt /hco3 gtt , Hemodialysis X1 episode electrolytes remains stable appreciate input form Nephrology /Pt Skilled LOW MG /LOW PHOS /Low k due to Hco3 gtt /on IV insulin gtt as well corrected \monitor lytes closely ACUTE KIDNEY INJURY IN SETTING OF CKD STAGE 3 due to DKA , hx of diabetic nephropathy , baseline cr approx ~1.3 continue to improve Cr 1.9-> 2 -> 1.8 ACEI /HCTZ kept on hold Nephrology following emergent dialysis done for severe metabolic acidosis renal function improved after HD ; Cr 1.8 adequate urine out put HYPERAMMONEMIA : ammonia level improved hepatic steatosis LFT's wnl , except for mild elevation of Alk phos no report of ETOH abuse CT abdomen /pelvis in 2016 noted to have fatty infiltration of liver recent EGD by Dr. Hassan in 2007 for epigastric pain. Endoscopy was normal and biopsies suggested reflux esophagitis at the GE junction. liver USG -no significant finding GI eval requested , appreciate input no GI intervention indicated , recommends continued correction of DKA , metabolic acidosis HYPERTRIGLYCERIDEMIA : improved TG Level > 1400 -> 600 mild pancreatitis noted , Lipase 600-400 Lipase level continues to improve Leukocytosis: i -Likely 2/2 DKA/dehydration possible infection stool; for cdiff + ve ; on PO vancomycin -Empirically treated with vanc and cefepime -Blood cultures-negative -ID following H/o c diff: -s/p colectomy -stool + ve C diff _PO vancomycin ordered contact precaution DVT Ppx: Heparin SQ Code status: FULL DISPOSITION cont ICU monitoring Vital Signs: Date Time Temp Pulse Resp B/P (MAP) Pulse Ox O2 Delivery O2 Flow Rate FiO2 04/23/17 23:59 Room Air 04/23/17 23:59 37.0 88 18 162/101 (121) 99 Room Air 04/23/17 20:00 Room Air 04/23/17 18:00 78 18 133/102 (112) 99 Room Air 04/23/17 16:00 Room Air 04/23/17 16:00 36.6 72 18 145/104 (118) 99 Room Air 04/23/17 14:00 72 15 140/101 (114) 97 Room Air 04/23/17 12:00 36.6 72 19 131/99 (110) 97 Room Air 04/23/17 12:00 Room Air 04/23/17 10:00 17 171/117 (135) 100 Room Air 04/23/17 08:00 36.6 66 13 156/102 (120) 99 Room Air 04/23/17 08:00 Room Air 04/23/17 06:30 63 17 143/98 (113) 04/23/17 05:30 63 17 152/88 (109) 100 Room Air 04/23/17 05:00 71 16 152/97 (115) 04/23/17 04:30 62 13 153/94 (113) 04/23/17 04:00 36.6 63 12 149/97 (114) 100 Room Air 04/23/17 04:00 Room Air 04/23/17 03:30 59 19 142/86 (104) 04/23/17 03:00 59 16 131/82 (98) 04/23/17 02:30 60 16 130/76 (94) 04/23/17 02:01 61 16 116/77 (90) 99 Room Air 04/23/17 01:30 64 22 147/88 (107) Lab Results: Results Past 24 Hours Test 04/23/17 06:26 04/23/17 11:40 04/23/17 11:54 04/23/17 15:39 Range/Units Sodium Level 139 136-145 mmol/L Potassium Level 3.2 3.5-5.1 mmol/L Chloride Level 110 98-107 mmol/L Carbon Dioxide Level 19 21-32 mmol/L Anion Gap 10.0 3-11 mmol/L Blood Urea Nitrogen 24 7-18 mg/dl Creatinine 1.67 0.60-1.20 mg/dl Est Creatinine Clear Calc Drug Dose 44.9 ml/min Estimated GFR () 42.7 Estimated GFR (Non- 36.8 BUN/Creatinine Ratio 14.2 10-20 Random Glucose 116 70-99 mg/dl Calcium Level 8.5 8.5-10.1 mg/dl Ionized Calcium 1.09 1.12-1.32 mmol/l Phosphorus Level 3.0 2.5-4.9 mg/dl Magnesium Level 2.1 1.8-2.4 mg/dl Total Bilirubin 0.7 0.2-1 mg/dl Aspartate Amino Transf (AST/SGOT) 27 15-37 U/L Alanine Aminotransferase (ALT/SGPT) 55 12-78 U/L Alkaline Phosphatase 166 45-117 U/L Total Protein 6.7 6.4-8.2 gm/dl Albumin 2.6 3.4-5.0 gm/dl Globulin 4.1 2.5-4.0 gm/dl Albumin/Globulin Ratio 0.6 0.9-2 Procalcitonin 0.28 0-0.5 ng/ml Vancomycin Level Trough 15.5 SEE COMMENT mcg/ml Bedside Glucose 95 156 70-90 mg/dl Test 04/23/17 19:58 Range/Units Bedside Glucose 218 70-90 mg/dl
[2017-04-22 22:21] LABS: ALBUMIN 2.8 gm/dl (3.4-5.0); CALCIUM 8.3 mg/dl (8.5-10.1); CREATININE 1.73 mg/dl (0.60-1.20); POTASSIUM 3.5 mmol/L (3.5-5.1)
[2017-04-22 22:26] LABS: PHOSPHORUS 2.4 mg/dl (2.5-4.9); TOTAL PROTEIN 7.1 gm/dl (6.4-8.2)
[2017-04-23] VITALS (20 sets, daily range): BP systolic 116–171; BP diastolic 76–117; PULSE 59–88; TEMP 36.6–37; O2SAT 97–100
[2017-04-23] MEDS ORDERED: VANCOMYCIN TROUGH ONE ×2 (01:30→11:30)
[2017-04-23] MEDS ORDERED: VANCOMYCIN INJ 1,250 MG in SODIUM CHLORIDE 0.9% 250ML 250 ML IV SCH (02:00)
[2017-04-23] MEDS: PIPERACILL/TAZOBAC IV 3.375 GM in DEXTROSE 5% 100ML 100 ML IV SCH ×3 (03:59→20:01)
[2017-04-23] MEDS: RASPBERRY SYRUP 5 ML UDP PO SCH ×4 (05:58→23:30)
[2017-04-23] MEDS: FAMOTIDINE IV INJ 20 MG in SYRINGE 3 ML IV SCH ×2 (05:58→17:38)
[2017-04-23] MEDS: VANCOMYCIN HCL 250 MG/5 ML SOLN PO SCH ×4 (05:58→23:30)
[2017-04-23] MEDS: HEPARIN SOD 5000 UNIT/0.5 ML CARP SQ SCH ×3 (06:00→20:05)
[2017-04-23 07:05] LABS: ALBUMIN 2.6 gm/dl (3.4-5.0); CALCIUM 8.5 mg/dl (8.5-10.1); CREATININE 1.67 mg/dl (0.60-1.20); POTASSIUM 3.2 mmol/L (3.5-5.1)
[2017-04-23 07:13] LABS: TOTAL PROTEIN 6.7 gm/dl (6.4-8.2)
[2017-04-23] MEDS: INSULIN ASPART 100 UNITS/ML 3 ML PEN SC SCH ×4 (08:05→20:03)
[2017-04-23] MEDS: INSULIN GLARGINE SOLOSTAR 100 UNITS/ML 3 ML PEN SC SCH ×2 (08:15→20:03)
[2017-04-23] MEDS ORDERED: HydrALAZINE HCL 20 MG/ML VIAL IV. PRN (09:30)
[2017-04-23] MEDS ORDERED: LABETALOL HCL 200 MG TAB PO ONE (09:32)
[2017-04-23] MEDS ORDERED: POTASSIUM CHLORIDE PWD 20 MEQ PACK PO ONE (09:45)
[2017-04-23] MEDS: POTASSIUM CHLR 10 MEQ / WTR 10 MEQ in PREMIXED WATER 100 ML IV SCH ×2 (10:15→12:10)
[2017-04-23] MEDS: AMLODIPINE BESYLATE 5 MG TAB PO SCH (10:15)
--- NOTE | 2017-04-23 11:17 | PROGRESS NOTE ---
DATE: 04/23/2017 SUBJECTIVE: [place] looks great today. She is sitting up in a chair. She has a tray table. She is working some puzzles. She is sitting with her and he feels she is back to her baseline. She is certainly oriented, knows she is in [place], knows the name of the hospital, the date, the day of the week, the year and has no focal neurologic findings other than manifestations of her diabetic polyneuropathy, which would be expected. At this point, neurology is going to sign off the case. I see no reason to do any imaging studies or an EEG in light of her continued improvement and in fact, both her and she think it is her baseline mental status. We will be happy to take a look at her again if there are any changes during the remainder of her hospital stay.
[2017-04-23] MEDS: VANCOMYCIN INJ 1,250 MG in SODIUM CHLORIDE 0.9% 250ML 250 ML IV SCH (12:11)
--- NOTE | 2017-04-23 12:12 | Pharmacy Progress Note ---
Pharmacy Glycemic Short Note 2 Date of Service Apr 23, 2017. OUTPATIENT ANTIDIABETIC REGIMEN: * Lantus 40 units SQ BID * NovoLog 20 units SQ TIDM * non-compliance? A1c = 13.8% ASSESSMENT: * Over the past 24 hrs the patient has received 133 units of sq insulin * 100 units of basal insulin + 33 units of prandial/correctional * Regimen is heavily weighted towards basal insulin. AM fasting BSG is trending downwards from 179 --> 116 today. Will decrease basal insulin dose to prevent hypoglycemia. * BSGs ranging 179 - 240 mg/dl over the past 24hrs. * Expect improvement in BSGs today in correlation with improvement in patient status. * Pt is tolerating PO intake. May need to increase/tighten CF/CR. Will re- assess tomorrow after changes made to basal insulin today PLAN FOR INPATIENT GLYCEMIC CONTROL: * Hold outpatient oral diabetes medications * Basal insulin * Lantus SQ BID: dose based on BSG since true basal needs uncertain * 40 units if BSG <140 mg/dl * 50 units if BSG 140 mg/dl or above * Bolus insulin * NovoLog per scale ACHS or Q6hrs while NPO * Goal Range: Low 130 mg/dL - High 160 mg/dL * Correction Factor: 10 mg/dL/unit * Nutritional / Prandial insulin per carb ratio of 1 unit per 4 grams CHO consumed
--- NOTE | 2017-04-23 14:32 | Critical Care Progress Note ---
Critical Care Progress Note Date of Service Apr 23, 2017. Attending Dr. Vences Subjective Doing well today, up in chair, tolerating diet Cheng removed Objective General: Obese female, awake, alert, comfortable Heent: NC/AT Lungs: Clear to auscultation b/l CVS:S1S2 reg Abd: obese, soft Ext: trace pedal edema. 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 Off nicardipine No need for diuretics Taking Norvasc, HCTZ, lisinopril and propranolol at home. No lisinopril for now secondary to OK Increased Norvasc to 10 mg daily Change propranolol to labetalol Renal/metabolic: Acidosis improved remarkably after one session of HD. No further need for HD, catheter removed Off bicarb drip Off IV fluids. She was markedly positive, but diuresed very well without need for diuretics. Probably a combination of fluid mobilization and post-ATN polyuria Daily electrolytes. Ammonia level improved Endo: DKA resolved. Started on Lantus ID: Likely bacterial infection, unclear source. Procalcitonin quite elevated, improving C-diff positive. 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 Plus, she improved without any C-diff specific treatment Keep on vanco PO for now while on broad spectrum Abx Continue Vancomycin, Cefepime escalated to Zosyn Follow up cultures, negative so far Per patient, whenever she get infection in the axilla, her right breast hurts, and felt that way at home. I did not see signs of an infectious process on examination of the axilla and breast. She is asymptomatic now. GI: Tolerated diet Has significant hepatic steatosis Ammonia level decreased significantly Elevated TG. Probably the cause of her fatty liver infiltration. To be repeated and eventually treated. TG coming down today Probably has a component of pancreatitis as well, driven by high triglycerides, which in turn made could have led to DKA. TG have been coming down Ct abdomen reviewed, no evidence of any pathology to explain her symptoms Counseled the patient for dietary changes DVT prophylaxis: SC heparin Critical care time spent with patient, , reviewing chart, discussing with consultants, excluding procedures, greater than 25 minutes May be transferred to regular floor, will sign off Consults & Procedures Consultants: Nephrology - Dr Everett Procedures: Intubation 04/19/17 Right femoral dual-lumen HD catheter - 04/19/17 Left femoral artery a-line - 04/19/17 Extubation 04/20/17 Data Medications: Current Inpatient Medications Medications (Trade) Dose Ordered Sig/Yudy Route Start Time Stop Time Status Last Admin Dose Admin Glucose (Glucose 40% Gel) UD PRN PO 04/17/17 15:00 05/17/17 14:59 Glucose (Glucose Chew Tab) 1 tabs UD PRN PO 04/17/17 15:00 05/17/17 14:59 Dextrose (Dextrose 50% 50ML Syringe) 50 ml UD PRN IV 04/17/17 15:00 05/17/17 14:59 Glucagon (Glucagon Inj) 1 mg UD PRN SQ 04/17/17 15:00 05/17/17 14:59 Miscellaneous Information (Consult Glycemic Management Pharmacy) 1 ea UD PRN N/A 04/17/17 15:45 05/17/17 15:44 Heparin Sodium (Porcine) (Heparin Sq 5000 Unit/0.5ml) 5,000 unit Q8 SQ 04/17/17 22:00 05/17/17 21:59 04/23/17 13:04 5,000 UNIT Acetaminophen (Tylenol Tab) 650 mg Q4H PRN PO 04/17/17 16:00 05/17/17 15:59 Ondansetron HCl (Zofran Inj) 4 mg Q6H PRN IV 04/17/17 16:00 05/17/17 15:59 Albuterol (Ventolin Hfa Inhaler) 2 puffs Q4H PRN INH 04/17/17 16:15 05/17/17 16:14 Atorvastatin Calcium (Lipitor Tab) 10 mg DAILY PO 04/18/17 09:00 05/18/17 08:59 Future Hold Duloxetine HCl (Cymbalta Cap) 60 mg QPM PO 04/17/17 21:00 05/17/17 20:59 Future Hold 04/17/17 20:52 60 MG Pregabalin (Lyrica Cap) 50 mg QPM PO 04/17/17 21:00 05/17/17 20:59 Future Hold 04/17/17 20:55 50 MG Topiramate (Topamax Tab) 75 mg QPM PO 04/18/17 21:00 05/18/17 20:59 Future Hold Vancomycin HCl (Consult) 1 ea UD PRN N/A 04/17/17 16:27 05/17/17 16:26 Famotidine 20 mg/ Syringe 5 ml @ 2.5 mls/min Q12H IV 04/17/17 18:00 05/17/17 17:59 04/23/17 05:58 2.5 MLS/MIN Piperacillin Sod/ Tazobactam Sod (Consult) 1 ea UD PRN N/A 04/19/17 07:15 05/19/17 07:14 Vancomycin HCl (Vancomycin Oral Soln) 250 mg Q6 PO 04/20/17 12:00 05/04/17 11:59 04/23/17 12:12 250 MG Raspberry (Raspberry Syrup 5ml Cup) 5 ml Q6 PO 04/20/17 12:00 05/04/17 11:59 04/23/17 12:12 5 ML Piperacillin Sod/ Tazobactam Sod 3.375 gm/Dextrose 115 ml @ 28.75 mls/ hr Q8H IV 04/20/17 20:00 04/29/17 19:59 04/23/17 12:11 28.75 MLS/HR Insulin Glargine (Lantus Solostar Pen) see protocol Q12 SC 04/21/17 21:00 05/21/17 20:59 04/23/17 08:15 116 UNITS Acetaminophen 650 mg/Empty Bag 65 ml @ 260 mls/hr Q6H PRN IV 04/21/17 13:45 05/21/17 13:44 Nicardipine HCl 50 mg/Sodium Chloride 500 ml @ 0 mls/hr Q0M PRN IV 04/21/17 19:15 05/21/17 19:14 04/22/17 18:45 50 MLS/HR Insulin Aspart (novoLOG ASPART) SLIDING SCALE ACHS SC 04/22/17 09:00 05/22/17 08:59 04/23/17 13:03 6 UNITS Amlodipine Besylate (Norvasc Tab) 10 mg QAM PO 04/23/17 09:00 05/18/17 08:59 04/23/17 10:15 10 MG Vancomycin HCl 1250 mg/Sodium Chloride 275 ml @ 125 mls/hr Q20H IV 04/22/17 16:00 05/02/17 15:59 04/23/17 12:11 125 MLS/HR Hydralazine HCl (HydrALAZINE INJ) 20 mg Q4H PRN IV. 04/23/17 09:30 05/23/17 09:29 Hydralazine HCl (HydrALAZINE INJ) 10 mg Q4H PRN IV. 04/23/17 09:30 05/23/17 09:29 Labetalol HCl (Normodyne Tab) 200 mg BID PO 04/23/17 21:00 05/23/17 20:59 Potassium Chloride (Klor-Con Pwd) 40 meq 2100 PO 04/23/17 21:00 04/23/17 21:01 Vital Signs: Date Time Temp Pulse Resp B/P (MAP) Pulse Ox O2 Delivery O2 Flow Rate FiO2 04/23/17 12:00 36.6 72 19 131/99 (110) 97 Room Air 04/23/17 12:00 Room Air 04/23/17 10:00 17 171/117 (135) 100 Room Air 04/23/17 08:00 36.6 66 13 156/102 (120) 99 Room Air 04/23/17 08:00 Room Air 04/23/17 06:30 63 17 143/98 (113) 04/23/17 05:30 63 17 152/88 (109) 100 Room Air 04/23/17 05:00 71 16 152/97 (115) 04/23/17 04:30 62 13 153/94 (113) 04/23/17 04:00 36.6 63 12 149/97 (114) 100 Room Air 04/23/17 04:00 Room Air 04/23/17 03:30 59 19 142/86 (104) 04/23/17 03:00 59 16 131/82 (98) 04/23/17 02:30 60 16 130/76 (94) 04/23/17 02:01 61 16 116/77 (90) 99 Room Air 04/23/17 01:30 64 22 147/88 (107) 04/23/17 01:00 66 18 147/93 (111) 04/23/17 00:30 66 20 150/90 (110) 04/23/17 00:00 36.6 67 19 155/98 (117) 99 Room Air 04/22/17 23:59 Room Air 04/22/17 23:30 66 20 159/100 (119) 04/22/17 23:00 68 21 152/100 (117) 04/22/17 22:30 68 21 146/103 (117) 04/22/17 22:00 70 21 170/101 (124) 04/22/17 21:00 75 26 159/104 (122) 04/22/17 20:30 36.6 75 14 152/100 (117) 99 Room Air 04/22/17 20:00 Room Air 04/22/17 19:30 78 16 145/96 (112) 04/22/17 19:00 73 21 150/98 (115) 04/22/17 18:00 75 20 150/100 (117) 100 Room Air 04/22/17 16:17 36.5 75 21 181/111 (134) 99 Room Air 04/22/17 16:00 Room Air Laboratory Results: Last 24 Hours Test 04/22/17 15:05 04/22/17 19:03 04/22/17 20:48 04/22/17 21:43 Ionized Calcium 1.01 mmol/l 1.03 mmol/l Bedside Glucose 243 mg/dl 200 mg/dl Sodium Level 133 mmol/L Potassium Level 3.5 mmol/L Chloride Level 105 mmol/L Carbon Dioxide Level 17 mmol/L Anion Gap 11.0 mmol/L Blood Urea Nitrogen 24 mg/dl Creatinine 1.73 mg/dl Est Creatinine Clear Calc Drug Dose 43.4 ml/min Estimated GFR () 40.9 Estimated GFR (Non- 35.3 BUN/Creatinine Ratio 13.8 Random Glucose 202 mg/dl Calcium Level 8.3 mg/dl Phosphorus Level 2.4 mg/dl Magnesium Level 2.1 mg/dl Total Bilirubin 0.7 mg/dl Aspartate Amino Transf (AST/SGOT) 30 U/L Alanine Aminotransferase (ALT/SGPT) 65 U/L Alkaline Phosphatase 188 U/L Total Protein 7.1 gm/dl Albumin 2.8 gm/dl Globulin 4.3 gm/dl Albumin/Globulin Ratio 0.7 Test 04/22/17 23:13 04/23/17 06:26 04/23/17 11:40 04/23/17 11:54 Bedside Glucose 203 mg/dl 95 mg/dl Sodium Level 139 mmol/L Potassium Level 3.2 mmol/L Chloride Level 110 mmol/L Carbon Dioxide Level 19 mmol/L Anion Gap 10.0 mmol/L Blood Urea Nitrogen 24 mg/dl Creatinine 1.67 mg/dl Est Creatinine Clear Calc Drug Dose 44.9 ml/min Estimated GFR () 42.7 Estimated GFR (Non- 36.8 BUN/Creatinine Ratio 14.2 Random Glucose 116 mg/dl Calcium Level 8.5 mg/dl Ionized Calcium 1.09 mmol/l Phosphorus Level 3.0 mg/dl Magnesium Level 2.1 mg/dl Total Bilirubin 0.7 mg/dl Aspartate Amino Transf (AST/SGOT) 27 U/L Alanine Aminotransferase (ALT/SGPT) 55 U/L Alkaline Phosphatase 166 U/L Total Protein 6.7 gm/dl Albumin 2.6 gm/dl Globulin 4.1 gm/dl Albumin/Globulin Ratio 0.6 Procalcitonin 0.28 ng/ml Vancomycin Level Trough 15.5 mcg/ml
[2017-04-23] MEDS: LABETALOL HCL 200 MG TAB PO SCH (20:08)
--- NOTE | 2017-04-23 20:36 | Progress Note ---
Internal Med Progress Note Date of Service: Apr 23, 2017. Provider Documentation: SUBJECTIVE: very pleasant , awake and alert sitting up on chair no confusion noted vitals remains stable OBJECTIVE: Vital Signs-as noted below Exam: General-present , no sign of distress Eyes-sclera injected ENT-moist oral mucosa Neck-tranche midline , no thyromegaly Lungs-no rales or wheeze Heart-regular S1/S2 , no JVD, no lower ext edema Abdomen-soft, non tender Extremities-multiple scab wounds in different stages of healing in both arms and hands Neuro-no focal neurological deficit , AAO x3 Lab data as noted below. ASSESSMENT & PLAN: CONFUSION /ENCEPHALOPATHIC -resolved , awake and alert , conversing appropriately possible metabolic encephalopathy due to acute illness /infection /renal failure improved CT head with out contrast -no acute change noted appreciate Neuro eval RESPIRATORY FAILURE : resolved due to severe metabolic acidosis required mechanical ventilation metabolic acidosis corrected with dialysis extubated on 04/20/17 respiratory status remains stable TYPE 2 DM /POORLY COMPLIANT /DKA corrected with IV insulin gtt /IVF fluid and HD - presents with DKA , severe metabolic acidosis , -as has not been taking insulin for days Hb A1c > 13 ( poorly controlled ) appreciate pharmacy input for glycemic management SEVERE METABOLIC ACIDOSIS : due to above corrected after dialysis Anion gap has resolved, Hco3 22 presented with Hco3 9 /AG >16 ABG shows pH 7.06/co2 22/PO2 120/Hco3 6 lactic acid -wnl pt treated with IV insulin gtt /hco3 gtt , Hemodialysis X1 episode electrolytes remains stable appreciate input form Nephrology /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 Hassan in 2007 for epigastric pain. Endoscopy was normal and biopsies suggested reflux esophagitis at the GE junction. liver USG -no significant finding GI eval requested , appreciate input no GI intervention indicated , recommends continued correction of DKA , metabolic acidosis HYPERTRIGLYCERIDEMIA : improved TG Level > 1400 -> 600 mild pancreatitis noted , Lipase 600-400 Lipase level continues to improve Leukocytosis: i -Likely 2/2 DKA/dehydration possible infection stool; for cdiff + ve ; on PO vancomycin -Empirically treated with vanc and cefepime -Blood cultures-negative -ID following H/o c diff: -s/p colectomy -stool + ve C diff _PO vancomycin ordered contact precaution DVT Ppx: Heparin SQ Code status: FULL DISPOSITION stable to be transferred to PCU Vital Signs: Date Time Temp Pulse Resp B/P (MAP) Pulse Ox O2 Delivery O2 Flow Rate FiO2 04/24/17 01:29 159/99 (119) 04/23/17 23:59 Room Air 04/23/17 23:59 37.0 88 18 162/101 (121) 99 Room Air 04/23/17 20:00 Room Air 04/23/17 18:00 78 18 133/102 (112) 99 Room Air 04/23/17 16:00 Room Air 04/23/17 16:00 36.6 72 18 145/104 (118) 99 Room Air 04/23/17 14:00 72 15 140/101 (114) 97 Room Air 04/23/17 12:00 36.6 72 19 131/99 (110) 97 Room Air 04/23/17 12:00 Room Air 04/23/17 10:00 17 171/117 (135) 100 Room Air 04/23/17 08:00 36.6 66 13 156/102 (120) 99 Room Air 04/23/17 08:00 Room Air 04/23/17 06:30 63 17 143/98 (113) 04/23/17 05:30 63 17 152/88 (109) 100 Room Air 04/23/17 05:00 71 16 152/97 (115) 04/23/17 04:30 62 13 153/94 (113) 04/23/17 04:00 36.6 63 12 149/97 (114) 100 Room Air 04/23/17 04:00 Room Air 04/23/17 03:30 59 19 142/86 (104) 04/23/17 03:00 59 16 131/82 (98) 04/23/17 02:30 60 16 130/76 (94) Lab Results: Results Past 24 Hours Test 04/23/17 06:26 04/23/17 11:40 04/23/17 11:54 04/23/17 15:39 Range/Units Sodium Level 139 136-145 mmol/L Potassium Level 3.2 3.5-5.1 mmol/L Chloride Level 110 98-107 mmol/L Carbon Dioxide Level 19 21-32 mmol/L Anion Gap 10.0 3-11 mmol/L Blood Urea Nitrogen 24 7-18 mg/dl Creatinine 1.67 0.60-1.20 mg/dl Est Creatinine Clear Calc Drug Dose 44.9 ml/min Estimated GFR () 42.7 Estimated GFR (Non- 36.8 BUN/Creatinine Ratio 14.2 10-20 Random Glucose 116 70-99 mg/dl Calcium Level 8.5 8.5-10.1 mg/dl Ionized Calcium 1.09 1.12-1.32 mmol/l Phosphorus Level 3.0 2.5-4.9 mg/dl Magnesium Level 2.1 1.8-2.4 mg/dl Total Bilirubin 0.7 0.2-1 mg/dl Aspartate Amino Transf (AST/SGOT) 27 15-37 U/L Alanine Aminotransferase (ALT/SGPT) 55 12-78 U/L Alkaline Phosphatase 166 45-117 U/L Total Protein 6.7 6.4-8.2 gm/dl Albumin 2.6 3.4-5.0 gm/dl Globulin 4.1 2.5-4.0 gm/dl Albumin/Globulin Ratio 0.6 0.9-2 Procalcitonin 0.28 0-0.5 ng/ml Vancomycin Level Trough 15.5 SEE COMMENT mcg/ml Bedside Glucose 95 156 70-90 mg/dl Test 04/23/17 19:58 Range/Units Bedside Glucose 218 70-90 mg/dl
[2017-04-23] MEDS ORDERED: POTASSIUM CHLORIDE PWD 20 MEQ PACK PO SCH (21:00)
[2017-04-23] MEDS: HydrALAZINE HCL 20 MG/ML VIAL IV. PRN (23:59)
[2017-04-24] VITALS (8 sets, daily range): BP systolic 134–175; BP diastolic 81–109; PULSE 76–82; TEMP 36.5–37.1; O2SAT 99–100; BMI 34.0
[2017-04-24] MEDS: PIPERACILL/TAZOBAC IV 3.375 GM in DEXTROSE 5% 100ML 100 ML IV SCH ×3 (04:14→20:01)
[2017-04-24] MEDS: FAMOTIDINE IV INJ 20 MG in SYRINGE 3 ML IV SCH (05:27)
[2017-04-24] MEDS: RASPBERRY SYRUP 5 ML UDP PO SCH ×3 (05:28→17:01)
[2017-04-24] MEDS: VANCOMYCIN HCL 250 MG/5 ML SOLN PO SCH ×3 (05:28→17:01)
[2017-04-24] MEDS: HEPARIN SOD 5000 UNIT/0.5 ML CARP SQ SCH ×3 (05:30→21:36)
--- NOTE | 2017-04-24 07:21 | DIAGNOSTIC IMAGING REPORT ---
CHEST ONE VIEW PORTABLE CLINICAL HISTORY: pneumonia dyspnea COMPARISON STUDY: 04/20/2017 FINDINGS: Interval extubation. Lungs currently are considered clear. Diaphragms smooth. Costophrenic angles are sharp. IMPRESSION: Interval extubation. Lungs are now considered clear. The above report was generated using voice recognition software. It may contain grammatical, syntax or spelling errors. Electronically signed by: Matias Ruth M.D. 04/24/2017 7:20 AM Dictated Date/Time: 04/24/2017 7:18 AM
[2017-04-24] MEDS: LABETALOL HCL 200 MG TAB PO SCH ×2 (07:54→22:06)
[2017-04-24] MEDS: HydrALAZINE HCL 20 MG/ML VIAL IV. PRN (07:55)
[2017-04-24] MEDS: INSULIN ASPART 100 UNITS/ML 3 ML PEN SC SCH ×4 (08:02→21:35)
[2017-04-24] MEDS: INSULIN GLARGINE SOLOSTAR 100 UNITS/ML 3 ML PEN SC SCH ×2 (08:04→21:35)
[2017-04-24] MEDS: PANTOprazole SOD 40 MG TAB PO SCH (08:05)
[2017-04-24] MEDS: AMLODIPINE BESYLATE 5 MG TAB PO SCH (08:06)
[2017-04-24 08:19] LABS: LIPASE 664 U/L (73-393)
[2017-04-24 08:21] LABS: CALCIUM 9.3 mg/dl (8.5-10.1); CREATININE 2.07 mg/dl (0.60-1.20); POTASSIUM 4.2 mmol/L (3.5-5.1)
--- NOTE | 2017-04-24 09:51 | Pharmacy Progress Note ---
Pharmacy Glycemic Short Note 2 Date of Service Apr 24, 2017. OUTPATIENT ANTIDIABETIC REGIMEN: * Lantus 40 units SQ BID * NovoLog 20 units SQ TIDM * non-compliance? A1c = 13.8% Item Value Date Time Random Glucose 116 mg/dl H 04/23/17 0626 Bedside Glucose 95 mg/dl H 04/23/17 1154 Bedside Glucose 156 mg/dl H 04/23/17 1539 Bedside Glucose 218 mg/dl H 04/23/17 1958 Bedside Glucose 150 mg/dl H 04/24/17 0533 Random Glucose 174 mg/dl H 04/24/17 0724 ASSESSMENT: * Pt has been receiving an average of ~ 130 units of sq insulin per day with adequate control * 90 units of basal insulin + 40 units of prandial/correctional * BSGs ranging 95 -218 mg/dl over the past 24hrs. * Regimen is heavily weighted towards basal insulin. However, AM fasting BSGs are in goal range at 116, 150 mg/dl. Will continue with 90 units of basal insulin but evenly distribute Q12hrs (as 45 units SQ BID) * Post-prandial BSgs are in range with current CF/CR. Pt with one elevated BSG at bedtime for unknown reason. Will not make any changes at this time and reassess tomorrow based on BSG trends. * Pt is tolerating PO intake * Pt status continues to improve. PLAN FOR INPATIENT GLYCEMIC CONTROL: * Basal insulin * Lantus 45 units SQ BID * Bolus insulin * NovoLog per scale ACHS or Q6hrs while NPO * Goal Range: Low 130 mg/dL - High 160 mg/dL * Correction Factor: 10 mg/dL/unit * Nutritional / Prandial insulin per carb ratio of 1 unit per 4 grams CHO consumed
--- NOTE | 2017-04-24 15:13 | Infectious Disease Progress Nt ---
Progress Note Date of Service Apr 24, 2017. Subjective Pt evaluation today including: conversation w/ patient, physical exam, chart review, lab review, review of studies, conversation w/ farm service consultant, review of inpatient medication list Patient feeling much better today. Mental status back to baseline. No increase in cough or shortness of breath. Remains afebrile. No other new complaints. Follow-up chest x-ray, read by me, shows no evidence of pneumonia. All Other Systems: Reviewed and Negative Medications Current Inpatient Medications Medications (Trade) Dose Ordered Sig/Yudy Route Start Time Stop Time Status Last Admin Dose Admin Glucose (Glucose 40% Gel) UD PRN PO 04/17/17 15:00 05/17/17 14:59 Glucose (Glucose Chew Tab) 1 tabs UD PRN PO 04/17/17 15:00 05/17/17 14:59 Dextrose (Dextrose 50% 50ML Syringe) 50 ml UD PRN IV 04/17/17 15:00 05/17/17 14:59 Glucagon (Glucagon Inj) 1 mg UD PRN SQ 04/17/17 15:00 05/17/17 14:59 Miscellaneous Information (Consult Glycemic Management Pharmacy) 1 ea UD PRN N/A 04/17/17 15:45 05/17/17 15:44 Heparin Sodium (Porcine) (Heparin Sq 5000 Unit/0.5ml) 5,000 unit Q8 SQ 04/17/17 22:00 05/17/17 21:59 04/24/17 05:30 5,000 UNIT Acetaminophen (Tylenol Tab) 650 mg Q4H PRN PO 04/17/17 16:00 05/17/17 15:59 Ondansetron HCl (Zofran Inj) 4 mg Q6H PRN IV 04/17/17 16:00 05/17/17 15:59 Albuterol (Ventolin Hfa Inhaler) 2 puffs Q4H PRN INH 04/17/17 16:15 05/17/17 16:14 Atorvastatin Calcium (Lipitor Tab) 10 mg DAILY PO 04/18/17 09:00 05/18/17 08:59 Future Hold Duloxetine HCl (Cymbalta Cap) 60 mg QPM PO 04/17/17 21:00 05/17/17 20:59 Future Hold 04/17/17 20:52 60 MG Pregabalin (Lyrica Cap) 50 mg QPM PO 04/17/17 21:00 05/17/17 20:59 Future Hold 04/17/17 20:55 50 MG Topiramate (Topamax Tab) 75 mg QPM PO 04/18/17 21:00 05/18/17 20:59 Future Hold Piperacillin Sod/ Tazobactam Sod (Consult) 1 ea UD PRN N/A 04/19/17 07:15 05/19/17 07:14 Vancomycin HCl (Vancomycin Oral Soln) 250 mg Q6 PO 04/20/17 12:00 05/04/17 11:59 04/24/17 11:43 250 MG Raspberry (Raspberry Syrup 5ml Cup) 5 ml Q6 PO 04/20/17 12:00 05/04/17 11:59 04/24/17 11:43 5 ML Piperacillin Sod/ Tazobactam Sod 3.375 gm/Dextrose 115 ml @ 28.75 mls/ hr Q8H IV 04/20/17 20:00 04/29/17 19:59 04/24/17 11:34 28.75 MLS/HR Acetaminophen 650 mg/Empty Bag 65 ml @ 260 mls/hr Q6H PRN IV 04/21/17 13:45 05/21/17 13:44 Insulin Aspart (novoLOG ASPART) SLIDING SCALE ACHS SC 04/22/17 09:00 05/22/17 08:59 04/24/17 11:39 23 UNITS Amlodipine Besylate (Norvasc Tab) 10 mg QAM PO 04/23/17 09:00 05/18/17 08:59 04/24/17 08:06 10 MG Hydralazine HCl (HydrALAZINE INJ) 20 mg Q4H PRN IV. 04/23/17 09:30 05/23/17 09:29 Hydralazine HCl (HydrALAZINE INJ) 10 mg Q4H PRN IV. 04/23/17 09:30 05/23/17 09:29 04/24/17 07:55 10 MG Labetalol HCl (Normodyne Tab) 200 mg BID PO 04/23/17 21:00 05/23/17 20:59 04/24/17 07:54 200 MG Pantoprazole Sodium (Protonix Tab) 40 mg QAM PO 04/24/17 09:00 05/24/17 08:59 04/24/17 08:05 40 MG Insulin Glargine (Lantus Solostar Pen) 45 units BID SC 04/24/17 09:00 05/24/17 08:59 04/24/17 08:04 45 UNITS Objective Vital Signs Date Time Temp Pulse Resp B/P (MAP) Pulse Ox O2 Delivery O2 Flow Rate FiO2 04/24/17 12:07 36.9 77 77 139/81 (100) 100 Room Air 04/24/17 12:00 Room Air 04/24/17 08:20 99 Room Air 04/24/17 07:52 36.9 77 18 175/109 (131) 99 Room Air 04/24/17 04:00 36.7 76 18 147/102 (117) 99 Room Air 04/24/17 04:00 Room Air 04/24/17 01:29 159/99 (119) 04/23/17 23:59 Room Air 04/23/17 23:59 37.0 88 18 162/101 (121) 99 Room Air 04/23/17 20:00 Room Air 04/23/17 18:00 78 18 133/102 (112) 99 Room Air 04/23/17 16:00 Room Air 04/23/17 16:00 36.6 72 18 145/104 (118) 99 Room Air Physical Exam General Appearance: WD/WN, no apparent distress, + obese Eyes: normal inspection, EOMI, sclerae normal ENT: normal ENT inspection, hearing grossly normal, pharynx normal Neck: supple, no adenopathy, trachea midline Respiratory/Chest: chest non-tender, lungs clear, normal breath sounds, no respiratory distress Cardiovascular: regular rate, rhythm, no gallop, no murmur Abdomen: normal bowel sounds, non tender, soft, no organomegaly Extremities: non-tender, no calf tenderness, + pedal edema Neurologic/Psychiatric: alert, normal mood/affect, oriented x 3 Skin: normal color, no rash, + pertinent finding (Extremities with multiple scabs) Lymphatic: no adenopathy Laboratory Results Last 24 Hours Test 04/23/17 15:39 04/23/17 19:58 04/24/17 05:33 04/24/17 07:24 Bedside Glucose 156 mg/dl 218 mg/dl 150 mg/dl Sodium Level 133 mmol/L Potassium Level 4.2 mmol/L Chloride Level 106 mmol/L Carbon Dioxide Level 14 mmol/L Anion Gap 14.0 mmol/L Blood Urea Nitrogen 30 mg/dl Creatinine 2.07 mg/dl Est Creatinine Clear Calc Drug Dose 36.3 ml/min Estimated GFR () 32.9 Estimated GFR (Non- 28.4 BUN/Creatinine Ratio 14.6 Random Glucose 174 mg/dl Calcium Level 9.3 mg/dl Ionized Calcium 1.21 mmol/l Magnesium Level 2.1 mg/dl Triglycerides Level 596 mg/dl Lipase 664 U/L Test 04/24/17 11:26 Bedside Glucose 308 mg/dl CHEST ONE VIEW PORTABLE CLINICAL HISTORY: pneumonia dyspnea COMPARISON STUDY: 04/20/2017 FINDINGS: Interval extubation. Lungs currently are considered clear. Diaphragms smooth. Costophrenic angles are sharp. IMPRESSION: Interval extubation. Lungs are now considered clear. The above report was generated using voice recognition software. It may contain grammatical, syntax or spelling errors. Electronically signed by: Matias Ruth M.D. 04/24/2017 7:20 AM Dictated Date/Time: 04/24/2017 7:18 AM The status of this report is Signed. Draft = Not yet reviewed or approved by Radiologist. Signed = Reviewed and approved by Radiologist. <AttendingPhy>Marychuy Riley M.D.</AttendingPhy> <FamilyPhy>Wiliam Garsia M.D.</FamilyPhy> <PrimaryPhy>Wiliam Garsia M.D.</PrimaryPhy> <UnitNumber> [id number]</UnitNumber> <VisitNumber>[id number]</VisitNumber> <PatientName> AMBIKA CORCORAN</PatientName> <DateOfBirth>1975</DateOfBirth> <Location> [facility]</Location> <ServiceDate>04/17/17</ServiceDate> <MNE>ESINDI</MNE> < OrderingPhy>Marychuy Riley MD</OrderingPhy> Assessment and Plan 42-year-old female with diabetes with prior episodes of sepsis, severe C difficile status post colectomy, and hidradenitis, who presents with evidence of sepsis with possible septic shock, with positive PCR for C diff. Not clear whether patient is carrier of C difficile or whether she may have active infection of residual colon or small bowel. Blood cultures have been negative. Follow-up chest x-ray without evidence of pneumonia. Would give consideration to discontinuation of IV Zosyn after today if remains afebrile and improving.
--- NOTE | 2017-04-24 19:32 | Progress Note ---
Subjective Date of Service: Apr 24, 2017. Subjective Pt evaluation today including: conversation w/ patient, physical exam, lab review, review of studies, review of inpatient medication list Saw/examined the patient in room 211 Doing well No confusion, feeling better no other symptoms at this time Problem List Medical Problems: (1) Abdominal pain Status: Acute (2) Confusion Status: Acute (3) Constipation Status: Acute (4) Dehydration Status: Acute (5) Dehydration Status: Acute (6) Hyperammonemia Status: Acute (7) Pneumonia Status: Acute Review of Systems Constitutional: No fever, No chills Respiratory: No cough, No sputum, No wheezing, No shortness of breath, No dyspnea on exertion Cardiac: + edema, No chest pain, No palpitations Abdomen: No pain, No nausea, No vomiting, No diarrhea Female : No dysuria, No urinary frequency Neurologic: No memory loss, No paralysis, No weakness, No numbness/tingling, No vertigo, No balance problems Psychiatric: No depression symptoms, No anxiety, No insomnia, No substance abuse Heme: No abnormal bleeding/bruising Endo: No fatigue, No excessive thirst, No excessive urination Medications Current Inpatient Medications Medications (Trade) Dose Ordered Sig/Yudy Route Start Time Stop Time Status Last Admin Dose Admin Glucose (Glucose 40% Gel) UD PRN PO 04/17/17 15:00 05/17/17 14:59 Glucose (Glucose Chew Tab) 1 tabs UD PRN PO 04/17/17 15:00 05/17/17 14:59 Dextrose (Dextrose 50% 50ML Syringe) 50 ml UD PRN IV 04/17/17 15:00 05/17/17 14:59 Glucagon (Glucagon Inj) 1 mg UD PRN SQ 04/17/17 15:00 05/17/17 14:59 Miscellaneous Information (Consult Glycemic Management Pharmacy) 1 ea UD PRN N/A 04/17/17 15:45 05/17/17 15:44 Heparin Sodium (Porcine) (Heparin Sq 5000 Unit/0.5ml) 5,000 unit Q8 SQ 04/17/17 22:00 05/17/17 21:59 04/24/17 15:15 5,000 UNIT Acetaminophen (Tylenol Tab) 650 mg Q4H PRN PO 04/17/17 16:00 05/17/17 15:59 Ondansetron HCl (Zofran Inj) 4 mg Q6H PRN IV 04/17/17 16:00 05/17/17 15:59 Albuterol (Ventolin Hfa Inhaler) 2 puffs Q4H PRN INH 04/17/17 16:15 05/17/17 16:14 Atorvastatin Calcium (Lipitor Tab) 10 mg DAILY PO 04/18/17 09:00 05/18/17 08:59 Future Hold Duloxetine HCl (Cymbalta Cap) 60 mg QPM PO 04/17/17 21:00 05/17/17 20:59 Future Hold 04/17/17 20:52 60 MG Pregabalin (Lyrica Cap) 50 mg QPM PO 04/17/17 21:00 05/17/17 20:59 Future Hold 04/17/17 20:55 50 MG Topiramate (Topamax Tab) 75 mg QPM PO 04/18/17 21:00 05/18/17 20:59 Future Hold Piperacillin Sod/ Tazobactam Sod (Consult) 1 ea UD PRN N/A 04/19/17 07:15 05/19/17 07:14 Vancomycin HCl (Vancomycin Oral Soln) 250 mg Q6 PO 04/20/17 12:00 05/04/17 11:59 04/24/17 17:01 250 MG Raspberry (Raspberry Syrup 5ml Cup) 5 ml Q6 PO 04/20/17 12:00 05/04/17 11:59 04/24/17 17:01 5 ML Piperacillin Sod/ Tazobactam Sod 3.375 gm/Dextrose 115 ml @ 28.75 mls/ hr Q8H IV 04/20/17 20:00 04/29/17 19:59 04/24/17 11:34 28.75 MLS/HR Acetaminophen 650 mg/Empty Bag 65 ml @ 260 mls/hr Q6H PRN IV 04/21/17 13:45 05/21/17 13:44 Insulin Aspart (novoLOG ASPART) SLIDING SCALE ACHS SC 04/22/17 09:00 05/22/17 08:59 04/24/17 17:04 26 UNITS Amlodipine Besylate (Norvasc Tab) 10 mg QAM PO 04/23/17 09:00 05/18/17 08:59 04/24/17 08:06 10 MG Hydralazine HCl (HydrALAZINE INJ) 20 mg Q4H PRN IV. 04/23/17 09:30 05/23/17 09:29 Hydralazine HCl (HydrALAZINE INJ) 10 mg Q4H PRN IV. 04/23/17 09:30 05/23/17 09:29 04/24/17 07:55 10 MG Labetalol HCl (Normodyne Tab) 200 mg BID PO 04/23/17 21:00 05/23/17 20:59 04/24/17 07:54 200 MG Pantoprazole Sodium (Protonix Tab) 40 mg QAM PO 04/24/17 09:00 05/24/17 08:59 04/24/17 08:05 40 MG Insulin Glargine (Lantus Solostar Pen) 45 units BID SC 04/24/17 09:00 05/24/17 08:59 04/24/17 08:04 45 UNITS Objective Vital Signs Date Time Temp Pulse Resp B/P (MAP) Pulse Ox O2 Delivery O2 Flow Rate FiO2 04/24/17 16:20 Room Air 04/24/17 15:44 36.5 77 20 139/92 (108) 100 Room Air 04/24/17 12:07 36.9 77 77 139/81 (100) 100 Room Air 04/24/17 12:00 Room Air 04/24/17 08:20 99 Room Air 04/24/17 07:52 36.9 77 18 175/109 (131) 99 Room Air 04/24/17 04:00 36.7 76 18 147/102 (117) 99 Room Air 04/24/17 04:00 Room Air 04/24/17 01:29 159/99 (119) 04/23/17 23:59 Room Air 04/23/17 23:59 37.0 88 18 162/101 (121) 99 Room Air 04/23/17 20:00 Room Air Physical Exam General Appearance: no apparent distress ENT: hearing grossly normal Respiratory/Chest: chest non-tender, lungs clear, normal breath sounds, no respiratory distress, no accessory muscle use Cardiovascular: regular rate, rhythm, no murmur Abdomen: normal bowel sounds, non tender, soft, no organomegaly Extremities: + pedal edema Neurologic/Psychiatric: no motor/sensory deficits, alert, normal mood/affect Laboratory Results Last 24 Hours Test 04/23/17 19:58 04/24/17 05:33 04/24/17 07:24 04/24/17 11:26 Bedside Glucose 218 mg/dl 150 mg/dl 308 mg/dl Sodium Level 133 mmol/L Potassium Level 4.2 mmol/L Chloride Level 106 mmol/L Carbon Dioxide Level 14 mmol/L Anion Gap 14.0 mmol/L Blood Urea Nitrogen 30 mg/dl Creatinine 2.07 mg/dl Est Creatinine Clear Calc Drug Dose 36.3 ml/min Estimated GFR () 32.9 Estimated GFR (Non- 28.4 BUN/Creatinine Ratio 14.6 Random Glucose 174 mg/dl Calcium Level 9.3 mg/dl Ionized Calcium 1.21 mmol/l Magnesium Level 2.1 mg/dl Triglycerides Level 596 mg/dl Lipase 664 U/L Test 04/24/17 15:50 Bedside Glucose 247 mg/dl Assessment and Plan Diabetic Ketoacidosis Severe Metabolic Acidosis OK superimposed on CKD stage 3 Acute Hypoxic Respiratory failure requiring mechanical ventilation; now extubated Metabolic Encephalopathy C. Diff Infection Plan 04/24/17 patient is doing better now she went into DKA due to non-compliance continue Lantus, sliding scale insulin and metformin on discharge will d/c abx. in AM likely d/c home in AM CONFUSION /ENCEPHALOPATHIC -resolved , awake and alert , conversing appropriately possible metabolic encephalopathy due to acute illness /infection /renal failure improved CT head with out contrast -no acute change noted appreciate Neuro eval RESPIRATORY FAILURE : resolved due to severe metabolic acidosis required mechanical ventilation metabolic acidosis corrected with dialysis extubated on 04/20/17 respiratory status remains stable TYPE 2 DM /POORLY COMPLIANT /DKA corrected with IV insulin gtt /IVF fluid and HD - presents with DKA , severe metabolic acidosis , -as has not been taking insulin for days Hb A1c > 13 ( poorly controlled ) appreciate pharmacy input for glycemic management SEVERE METABOLIC ACIDOSIS : due to above corrected after dialysis Anion gap has resolved, Hco3 22 presented with Hco3 9 /AG >16 ABG shows pH 7.06/co2 22/PO2 120/Hco3 6 lactic acid -wnl pt treated with IV insulin gtt /hco3 gtt , Hemodialysis X1 episode electrolytes remains stable appreciate input form Nephrology /[employer] ACUTE KIDNEY INJURY IN SETTING OF CKD STAGE 3 due to DKA , hx of diabetic nephropathy , baseline cr approx ~1.3 continue to improve Cr 1.9-> 2 -> 1.8 -> 1.6 ACEI /HCTZ kept on hold Nephrology following emergent dialysis done for severe metabolic acidosis renal function improved after HD ; Cr 1.8 adequate urine out put HYPERAMMONEMIA : ammonia level improved hepatic steatosis LFT's wnl , except for mild elevation of Alk phos no report of ETOH abuse CT abdomen /pelvis in 2016 noted to have fatty infiltration of liver recent EGD by Dr. Hassan in 2007 for epigastric pain. Endoscopy was normal and biopsies suggested reflux esophagitis at the GE junction. liver USG -no significant finding GI eval requested , appreciate input no GI intervention indicated , recommends continued correction of DKA , metabolic acidosis HYPERTRIGLYCERIDEMIA : improved TG Level > 1400 -> 600 mild pancreatitis noted , Lipase 600-400 Lipase level continues to improve Leukocytosis: i -Likely 2/2 DKA/dehydration possible infection stool; for cdiff + ve ; on PO vancomycin -Empirically treated with vanc and cefepime -Blood cultures-negative -ID following H/o c diff: -s/p colectomy -stool + ve C diff _PO vancomycin ordered contact precaution DVT Ppx: Heparin SQ Code status: FULL DISPOSITION stable to be transferred to PCU
[2017-04-25] VITALS (7 sets, daily range): BP systolic 135–153; BP diastolic 84–94; PULSE 72–77; TEMP 36.5–36.9; O2SAT 99–100; Ht 160 cm; Wt 84.9 kg
[2017-04-25] MEDS: VANCOMYCIN HCL 250 MG/5 ML SOLN PO SCH ×4 (00:07→17:57)
[2017-04-25] MEDS: RASPBERRY SYRUP 5 ML UDP PO SCH ×4 (00:07→17:57)
[2017-04-25] MEDS: PIPERACILL/TAZOBAC IV 3.375 GM in DEXTROSE 5% 100ML 100 ML IV SCH (03:32)
[2017-04-25 06:06] LABS: HEMOGLOBIN 9.5 g/dL (12.0-16.0); MEAN CELL VOLUME 78.5 fL (80-100); MEAN CORPUSCULAR HEMOGLOBIN 24.9 pg (25-34); MEAN CORPUSCULAR HGB CONC 31.7 g/dl (32-36); MEAN PLATELET VOLUME 9.3 fL (7.4-10.4); PLATELET COUNT 263 K/uL (130-400); RED CELL DISTRIBUTION WIDTH CV 16.6 % (11.5-14.5); RED CELL DISTRIBUTION WIDTH SD 47.6 fL (36.4-46.3); WHITE BLOOD COUNT 10.57 K/uL (4.8-10.8)
[2017-04-25] MEDS: HEPARIN SOD 5000 UNIT/0.5 ML CARP SQ SCH ×3 (06:09→21:44)
[2017-04-25 06:32] LABS: CALCIUM 9.2 mg/dl (8.5-10.1); CREATININE 2.24 mg/dl (0.60-1.20); POTASSIUM 4.1 mmol/L (3.5-5.1)
[2017-04-25] MEDS: PANTOprazole SOD 40 MG TAB PO SCH (08:06)
[2017-04-25] MEDS: AMLODIPINE BESYLATE 5 MG TAB PO SCH (08:06)
[2017-04-25] MEDS: LABETALOL HCL 200 MG TAB PO SCH ×2 (08:06→20:36)
[2017-04-25] MEDS: INSULIN ASPART 100 UNITS/ML 3 ML PEN SC SCH ×4 (08:10→20:38)
[2017-04-25] MEDS: INSULIN GLARGINE SOLOSTAR 100 UNITS/ML 3 ML PEN SC SCH ×2 (08:10→20:38)
--- NOTE | 2017-04-25 09:25 | Pharmacy Progress Note ---
Pharmacy Glycemic Short Note 2 Date of Service Apr 25, 2017. OUTPATIENT ANTIDIABETIC REGIMEN: * Lantus 40 units SQ BID * NovoLog 20 units SQ TIDM * non-compliance? A1c = 13.8% ASSESSMENT: * Pt has been receiving an average of ~ 130 units of sq insulin per day with adequate control * Yesterday; however, she required 163 units of insulin and prandial BSGs remained elevated - this makes sense as diet recently advanced * BSGs ranging 137-308 mg/dl over the past 24hrs. * Fasting BSG remains in goal, no change to basal required * Prandial BSGs elevated, tighten CF/CR * Pt is tolerating PO intake * Pt status continues to improve PLAN FOR INPATIENT GLYCEMIC CONTROL: * Basal insulin * Lantus 45 units SQ BID * Bolus insulin * NovoLog per scale ACHS or Q6hrs while NPO * Goal Range: Low 130 mg/dL - High 160 mg/dL * Correction Factor: 10 mg/dL/unit * Nutritional / Prandial insulin per carb ratio of 1 unit per 3 grams CHO consumed
--- NOTE | 2017-04-25 11:37 | Nephrology Progress Note ---
Nephrology Progress Note Date of Service: Apr 25, 2017. Subjective 42 yo female with dka and significant acidosis who required dialysis x 1 session during this hospitilization. since correcting the bicarb from under 5 to 23, has trended back down and has been 14 for the past two days. pt eating solid foods and feels much better but admits that her chronic loose stools have worsened. otherwise feels good and wants to go home. Objective Date Time Temp Pulse Resp B/P (MAP) Pulse Ox O2 Delivery O2 Flow Rate FiO2 04/25/17 08:01 Room Air 04/25/17 07:39 36.5 75 17 149/84 (105) 100 Room Air 04/25/17 04:00 Room Air 04/25/17 03:35 36.6 72 16 136/86 (103) 99 Room Air 04/25/17 00:00 Room Air 04/24/17 23:58 37.1 78 16 134/101 (112) 99 Room Air 04/24/17 20:00 Room Air 04/24/17 19:30 36.5 82 20 144/95 (111) 100 Room Air 04/24/17 16:20 Room Air 04/24/17 15:44 36.5 77 20 139/92 (108) 100 Room Air 04/24/17 12:07 36.9 77 77 139/81 (100) 100 Room Air 04/24/17 12:00 Room Air Physical Exam: General-aaox3 Eyes-no scleral icterus ENT-mmm Neck-supple Lungs-clear Heart-rrr Abdomen-bs+ s/nt/nd Extremities-no c/c/e Neuro-nonfocal Current Inpatient Medications Medications (Trade) Dose Ordered Sig/Yudy Route Start Time Stop Time Status Last Admin Dose Admin Glucose (Glucose 40% Gel) UD PRN PO 04/17/17 15:00 05/17/17 14:59 Glucose (Glucose Chew Tab) 1 tabs UD PRN PO 04/17/17 15:00 05/17/17 14:59 Dextrose (Dextrose 50% 50ML Syringe) 50 ml UD PRN IV 04/17/17 15:00 05/17/17 14:59 Glucagon (Glucagon Inj) 1 mg UD PRN SQ 04/17/17 15:00 05/17/17 14:59 Miscellaneous Information (Consult Glycemic Management Pharmacy) 1 ea UD PRN N/A 04/17/17 15:45 05/17/17 15:44 Heparin Sodium (Porcine) (Heparin Sq 5000 Unit/0.5ml) 5,000 unit Q8 SQ 04/17/17 22:00 05/17/17 21:59 04/25/17 06:09 5,000 UNIT Acetaminophen (Tylenol Tab) 650 mg Q4H PRN PO 04/17/17 16:00 05/17/17 15:59 Ondansetron HCl (Zofran Inj) 4 mg Q6H PRN IV 04/17/17 16:00 05/17/17 15:59 Albuterol (Ventolin Hfa Inhaler) 2 puffs Q4H PRN INH 04/17/17 16:15 05/17/17 16:14 Atorvastatin Calcium (Lipitor Tab) 10 mg DAILY PO 04/18/17 09:00 05/18/17 08:59 Future Hold Duloxetine HCl (Cymbalta Cap) 60 mg QPM PO 04/17/17 21:00 05/17/17 20:59 Future Hold 04/17/17 20:52 60 MG Pregabalin (Lyrica Cap) 50 mg QPM PO 04/17/17 21:00 05/17/17 20:59 Future Hold 04/17/17 20:55 50 MG Topiramate (Topamax Tab) 75 mg QPM PO 04/18/17 21:00 05/18/17 20:59 Future Hold Vancomycin HCl (Vancomycin Oral Soln) 250 mg Q6 PO 04/20/17 12:00 05/04/17 11:59 04/25/17 06:09 250 MG Raspberry (Raspberry Syrup 5ml Cup) 5 ml Q6 PO 04/20/17 12:00 05/04/17 11:59 04/25/17 06:09 5 ML Acetaminophen 650 mg/Empty Bag 65 ml @ 260 mls/hr Q6H PRN IV 04/21/17 13:45 05/21/17 13:44 Insulin Aspart (novoLOG ASPART) SLIDING SCALE ACHS SC 04/22/17 09:00 05/22/17 08:59 04/25/17 08:10 19 UNITS Amlodipine Besylate (Norvasc Tab) 10 mg QAM PO 04/23/17 09:00 05/18/17 08:59 04/25/17 08:06 10 MG Hydralazine HCl (HydrALAZINE INJ) 20 mg Q4H PRN IV. 04/23/17 09:30 05/23/17 09:29 Hydralazine HCl (HydrALAZINE INJ) 10 mg Q4H PRN IV. 04/23/17 09:30 05/23/17 09:29 04/24/17 07:55 10 MG Labetalol HCl (Normodyne Tab) 200 mg BID PO 04/23/17 21:00 05/23/17 20:59 04/25/17 08:06 200 MG Pantoprazole Sodium (Protonix Tab) 40 mg QAM PO 04/24/17 09:00 05/24/17 08:59 04/25/17 08:06 40 MG Insulin Glargine (Lantus Solostar Pen) 45 units BID SC 04/24/17 09:00 05/24/17 08:59 04/25/17 08:10 45 UNITS Last 24 Hours Test 04/24/17 15:50 04/24/17 19:59 04/25/17 05:48 Bedside Glucose 247 mg/dl 137 mg/dl White Blood Count 10.57 K/uL Red Blood Count 3.82 M/uL Hemoglobin 9.5 g/dL Hematocrit 30.0 % Mean Corpuscular Volume 78.5 fL Mean Corpuscular Hemoglobin 24.9 pg Mean Corpuscular Hemoglobin Concent 31.7 g/dl RDW Standard Deviation 47.6 fL RDW Coefficient of Variation 16.6 % Platelet Count 263 K/uL Mean Platelet Volume 9.3 fL Sodium Level 138 mmol/L Potassium Level 4.1 mmol/L Chloride Level 111 mmol/L Carbon Dioxide Level 14 mmol/L Anion Gap 12.0 mmol/L Blood Urea Nitrogen 30 mg/dl Creatinine 2.24 mg/dl Est Creatinine Clear Calc Drug Dose 33.1 ml/min Estimated GFR () 29.9 Estimated GFR (Non- 25.8 BUN/Creatinine Ratio 13.5 Random Glucose 122 mg/dl Calcium Level 9.2 mg/dl Magnesium Level 2.2 mg/dl Lipase 889 U/L Assessment & Plan metabolic acidosis-bicarb is dropping again in the setting of ckd and diarrhea. pt with colectomy and may benefit from sodium bicarb chronic administration. if bicarb stable tomorrow, ok from renal perspective to go home.
[2017-04-25] MEDS: SODIUM BICARBONATE 650 MG TAB PO SCH ×2 (13:57→20:36)
--- NOTE | 2017-04-25 15:37 | Infectious Disease Progress Nt ---
Progress Note Date of Service Apr 25, 2017. Subjective Pt evaluation today including: conversation w/ patient, physical exam, chart review, lab review, review of studies, conversation w/ business objects consultant, review of inpatient medication list Patient appears comfortable, offers no new complaints today. Remains afebrile, now off all IV antibiotics. Continues on oral vancomycin therapy. All Other Systems: Reviewed and Negative Medications Current Inpatient Medications Medications (Trade) Dose Ordered Sig/Yudy Route Start Time Stop Time Status Last Admin Dose Admin Glucose (Glucose 40% Gel) UD PRN PO 04/17/17 15:00 05/17/17 14:59 Glucose (Glucose Chew Tab) 1 tabs UD PRN PO 04/17/17 15:00 05/17/17 14:59 Dextrose (Dextrose 50% 50ML Syringe) 50 ml UD PRN IV 04/17/17 15:00 05/17/17 14:59 Glucagon (Glucagon Inj) 1 mg UD PRN SQ 04/17/17 15:00 05/17/17 14:59 Miscellaneous Information (Consult Glycemic Management Pharmacy) 1 ea UD PRN N/A 04/17/17 15:45 05/17/17 15:44 Heparin Sodium (Porcine) (Heparin Sq 5000 Unit/0.5ml) 5,000 unit Q8 SQ 04/17/17 22:00 05/17/17 21:59 04/25/17 13:59 5,000 UNIT Acetaminophen (Tylenol Tab) 650 mg Q4H PRN PO 04/17/17 16:00 05/17/17 15:59 Ondansetron HCl (Zofran Inj) 4 mg Q6H PRN IV 04/17/17 16:00 05/17/17 15:59 Albuterol (Ventolin Hfa Inhaler) 2 puffs Q4H PRN INH 04/17/17 16:15 05/17/17 16:14 Atorvastatin Calcium (Lipitor Tab) 10 mg DAILY PO 04/18/17 09:00 05/18/17 08:59 Future Hold Duloxetine HCl (Cymbalta Cap) 60 mg QPM PO 04/17/17 21:00 05/17/17 20:59 Future hold 04/17/17 20:52 60 MG Pregabalin (Lyrica Cap) 50 mg QPM PO 04/17/17 21:00 2/7/18 20:59 Future hold 04/17/17 20:55 50 MG Topiramate (Topamax Tab) 75 mg QPM PO 04/18/17 21:00 05/18/17 20:59 Future Hold Vancomycin HCl (Vancomycin Oral Soln) 250 mg Q6 PO 04/20/17 12:00 05/04/17 11:59 04/25/17 12:18 250 MG Raspberry (Raspberry Syrup 5ml Cup) 5 ml Q6 PO 04/20/17 12:00 05/04/17 11:59 04/25/17 12:18 5 ML Acetaminophen 650 mg/Empty Bag 65 ml @ 260 mls/hr Q6H PRN IV 04/21/17 13:45 05/21/17 13:44 Insulin Aspart (novoLOG ASPART) SLIDING SCALE ACHS SC 04/22/17 09:00 05/22/17 08:59 04/25/17 08:10 19 UNITS Amlodipine Besylate (Norvasc Tab) 10 mg QAM PO 04/23/17 09:00 05/18/17 08:59 04/25/17 08:06 10 MG Hydralazine HCl (HydrALAZINE INJ) 20 mg Q4H PRN IV. 04/23/17 09:30 05/23/17 09:29 Hydralazine HCl (HydrALAZINE INJ) 10 mg Q4H PRN IV. 04/23/17 09:30 05/23/17 09:29 04/24/17 07:55 10 MG Labetalol HCl (Normodyne Tab) 200 mg BID PO 04/23/17 21:00 05/23/17 20:59 04/25/17 08:06 200 MG Pantoprazole Sodium (Protonix Tab) 40 mg QAM PO 04/24/17 09:00 05/24/17 08:59 04/25/17 08:06 40 MG Insulin Glargine (Lantus Solostar Pen) 45 units BID SC 04/24/17 09:00 05/24/17 08:59 04/25/17 08:10 45 UNITS Sodium Bicarbonate (Sodium Bicarbonate Tab) 1,300 mg TID PO 04/25/17 12:30 05/25/17 12:29 04/25/17 13:57 1,300 MG Objective Vital Signs Date Time Temp Pulse Resp B/P (MAP) Pulse Ox O2 Delivery O2 Flow Rate FiO2 04/25/17 12:05 Room Air 04/25/17 11:50 36.8 76 18 153/94 (113) 100 Room Air 04/25/17 08:01 Room Air 04/25/17 07:39 36.5 75 17 149/84 (105) 100 Room Air 04/25/17 04:00 Room Air 04/25/17 03:35 36.6 72 16 136/86 (103) 99 Room Air 04/25/17 00:00 Room Air 04/24/17 23:58 37.1 78 16 134/101 (112) 99 Room Air 04/24/17 20:00 Room Air 04/24/17 19:30 36.5 82 20 144/95 (111) 100 Room Air 04/24/17 16:20 Room Air 04/24/17 15:44 36.5 77 20 139/92 (108) 100 Room Air Physical Exam General Appearance: WD/WN, no apparent distress, + obese Eyes: normal inspection, EOMI, sclerae normal ENT: normal ENT inspection, pharynx normal Neck: supple, no adenopathy, trachea midline Respiratory/Chest: chest non-tender, lungs clear, normal breath sounds, no respiratory distress Cardiovascular: regular rate, rhythm, no gallop, no murmur Abdomen: normal bowel sounds, non tender, soft, no organomegaly Extremities: non-tender, no calf tenderness Neurologic/Psychiatric: alert, oriented x 3 Skin: normal color, warm/dry, no rash Lymphatic: no adenopathy Laboratory Results Last 24 Hours Test 04/24/17 15:50 04/24/17 19:59 04/25/17 05:48 04/25/17 12:15 Bedside Glucose 247 mg/dl 137 mg/dl 110 mg/dl White Blood Count 10.57 K/uL Red Blood Count 3.82 M/uL Hemoglobin 9.5 g/dL Hematocrit 30.0 % Mean Corpuscular Volume 78.5 fL Mean Corpuscular Hemoglobin 24.9 pg Mean Corpuscular Hemoglobin Concent 31.7 g/dl RDW Standard Deviation 47.6 fL RDW Coefficient of Variation 16.6 % Platelet Count 263 K/uL Mean Platelet Volume 9.3 fL Sodium Level 138 mmol/L Potassium Level 4.1 mmol/L Chloride Level 111 mmol/L Carbon Dioxide Level 14 mmol/L Anion Gap 12.0 mmol/L Blood Urea Nitrogen 30 mg/dl Creatinine 2.24 mg/dl Est Creatinine Clear Calc Drug Dose 33.1 ml/min Estimated GFR () 29.9 Estimated GFR (Non- 25.8 BUN/Creatinine Ratio 13.5 Random Glucose 122 mg/dl Calcium Level 9.2 mg/dl Magnesium Level 2.2 mg/dl Lipase 889 U/L Assessment and Plan 42-year-old female with diabetes with prior episodes of sepsis, severe C difficile status post colectomy, and hidradenitis, who presents with evidence of sepsis with possible septic shock, with positive PCR for C diff. Not clear whether patient is carrier of C difficile or whether she may have active infection of residual colon or small bowel. Blood cultures have been negative. Follow-up chest x-ray without evidence of pneumonia. Would give 2 week course of oral vancomycin therapy for C difficile, continue to monitor off antibiotics.
--- NOTE | 2017-04-25 18:29 | Progress Note ---
Subjective Date of Service: Apr 25, 2017. Subjective Pt evaluation today including: conversation w/ patient, physical exam, lab review, review of studies, conversation w/ exchange underwriting consultant, review of inpatient medication list Saw/examined the patient in room 211 Is doing well today, eager to be discharged today Problem List Medical Problems: (1) Abdominal pain Status: Acute (2) Confusion Status: Acute (3) Constipation Status: Acute (4) Dehydration Status: Acute (5) Dehydration Status: Acute (6) Hyperammonemia Status: Acute (7) Pneumonia Status: Acute Review of Systems Constitutional: No fever, No chills, No weakness Respiratory: No cough, No shortness of breath Cardiac: No chest pain Abdomen: No pain, No nausea, No vomiting, No diarrhea, No constipation, No GI bleeding Female : No dysuria, No urinary frequency Heme: No abnormal bleeding/bruising Endo: No fatigue, No excessive thirst, No excessive urination Medications Current Inpatient Medications Medications (Trade) Dose Ordered Sig/Yudy Route Start Time Stop Time Status Last Admin Dose Admin Glucose (Glucose 40% Gel) UD PRN PO 04/17/17 15:00 05/17/17 14:59 Glucose (Glucose Chew Tab) 1 tabs UD PRN PO 04/17/17 15:00 05/17/17 14:59 Dextrose (Dextrose 50% 50ML Syringe) 50 ml UD PRN IV 04/17/17 15:00 05/17/17 14:59 Glucagon (Glucagon Inj) 1 mg UD PRN SQ 04/17/17 15:00 05/17/17 14:59 Miscellaneous Information (Consult Glycemic Management Pharmacy) 1 ea UD PRN N/A 04/17/17 15:45 05/17/17 15:44 Heparin Sodium (Porcine) (Heparin Sq 5000 Unit/0.5ml) 5,000 unit Q8 SQ 04/17/17 22:00 05/17/17 21:59 04/25/17 13:59 5,000 UNIT Acetaminophen (Tylenol Tab) 650 mg Q4H PRN PO 04/17/17 16:00 05/17/17 15:59 Ondansetron HCl (Zofran Inj) 4 mg Q6H PRN IV 04/17/17 16:00 05/17/17 15:59 Albuterol (Ventolin Hfa Inhaler) 2 puffs Q4H PRN INH 04/17/17 16:15 05/17/17 16:14 Atorvastatin Calcium (Lipitor Tab) 10 mg DAILY PO 04/18/17 09:00 05/18/17 08:59 Future Hold Duloxetine HCl (Cymbalta Cap) 60 mg QPM PO 04/17/17 21:00 05/17/17 20:59 Future hold 04/17/17 20:52 60 MG Pregabalin (Lyrica Cap) 50 mg QPM PO 04/17/17 21:00 05/17/17 20:59 Future hold 04/17/17 20:55 50 MG Topiramate (Topamax Tab) 75 mg QPM PO 04/18/17 21:00 05/18/17 20:59 Future Hold Vancomycin HCl (Vancomycin Oral Soln) 250 mg Q6 PO 04/20/17 12:00 05/04/17 11:59 04/25/17 17:57 250 MG Raspberry (Raspberry Syrup 5ml Cup) 5 ml Q6 PO 04/20/17 12:00 05/04/17 11:59 04/25/17 17:57 5 ML Acetaminophen 650 mg/Empty Bag 65 ml @ 260 mls/hr Q6H PRN IV 04/21/17 13:45 05/21/17 13:44 Insulin Aspart (novoLOG ASPART) SLIDING SCALE ACHS SC 04/22/17 09:00 05/22/17 08:59 04/25/17 17:21 17 UNITS Amlodipine Besylate (Norvasc Tab) 10 mg QAM PO 04/23/17 09:00 05/18/17 08:59 04/25/17 08:06 10 MG Hydralazine HCl (HydrALAZINE INJ) 20 mg Q4H PRN IV. 04/23/17 09:30 05/23/17 09:29 Hydralazine HCl (HydrALAZINE INJ) 10 mg Q4H PRN IV. 04/23/17 09:30 05/23/17 09:29 04/24/17 07:55 10 MG Labetalol HCl (Normodyne Tab) 200 mg BID PO 04/23/17 21:00 05/23/17 20:59 04/25/17 08:06 200 MG Pantoprazole Sodium (Protonix Tab) 40 mg QAM PO 04/24/17 09:00 05/24/17 08:59 04/25/17 08:06 40 MG Insulin Glargine (Lantus Solostar Pen) 45 units BID SC 04/24/17 09:00 05/24/17 08:59 04/25/17 08:10 45 UNITS Sodium Bicarbonate (Sodium Bicarbonate Tab) 1,300 mg TID PO 04/25/17 12:30 05/25/17 12:29 04/25/17 13:57 1,300 MG Objective Vital Signs Date Time Temp Pulse Resp B/P (MAP) Pulse Ox O2 Delivery O2 Flow Rate FiO2 04/25/17 16:00 100 Nasal Cannula 2.0 04/25/17 15:49 36.6 76 135/87 (103) 100 Nasal Cannula 2.0 04/25/17 12:05 Room Air 04/25/17 11:50 36.8 76 18 153/94 (113) 100 Room Air 04/25/17 08:01 Room Air 04/25/17 07:39 36.5 75 17 149/84 (105) 100 Room Air 04/25/17 04:00 Room Air 04/25/17 03:35 36.6 72 16 136/86 (103) 99 Room Air 04/25/17 00:00 Room Air 04/24/17 23:58 37.1 78 16 134/101 (112) 99 Room Air 04/24/17 20:00 Room Air 04/24/17 19:30 36.5 82 20 144/95 (111) 100 Room Air Physical Exam General Appearance: no apparent distress Respiratory/Chest: lungs clear, normal breath sounds, no respiratory distress, no accessory muscle use Cardiovascular: regular rate, rhythm, no edema, no murmur Neurologic/Psychiatric: no motor/sensory deficits, alert, normal mood/affect Laboratory Results Last 24 Hours Test 04/24/17 19:59 04/25/17 05:48 04/25/17 06:45 04/25/17 12:15 Bedside Glucose 137 mg/dl 114 mg/dl 110 mg/dl White Blood Count 10.57 K/uL Red Blood Count 3.82 M/uL Hemoglobin 9.5 g/dL Hematocrit 30.0 % Mean Corpuscular Volume 78.5 fL Mean Corpuscular Hemoglobin 24.9 pg Mean Corpuscular Hemoglobin Concent 31.7 g/dl RDW Standard Deviation 47.6 fL RDW Coefficient of Variation 16.6 % Platelet Count 263 K/uL Mean Platelet Volume 9.3 fL Sodium Level 138 mmol/L Potassium Level 4.1 mmol/L Chloride Level 111 mmol/L Carbon Dioxide Level 14 mmol/L Anion Gap 12.0 mmol/L Blood Urea Nitrogen 30 mg/dl Creatinine 2.24 mg/dl Est Creatinine Clear Calc Drug Dose 33.1 ml/min Estimated GFR () 29.9 Estimated GFR (Non- 25.8 BUN/Creatinine Ratio 13.5 Random Glucose 122 mg/dl Calcium Level 9.2 mg/dl Magnesium Level 2.2 mg/dl Lipase 889 U/L Test 04/25/17 16:03 Bedside Glucose 144 mg/dl Assessment and Plan Diabetic Ketoacidosis Severe Metabolic Acidosis OK superimposed on CKD stage 3 Acute Hypoxic Respiratory failure requiring mechanical ventilation; now extubated Metabolic Encephalopathy C. Diff Infection Plan 04/25 appreciate nephrology input sodium bicarb tablets added monitor bicarb and anion gap d/c home in AM Plan 04/24/17 patient is doing better now she went into DKA due to non-compliance continue Lantus, sliding scale insulin and metformin on discharge will d/c abx. in AM likely d/c home in AM CONFUSION /ENCEPHALOPATHIC -resolved , awake and alert , conversing appropriately possible metabolic encephalopathy due to acute illness /infection /renal failure improved CT head with out contrast -no acute change noted appreciate Neuro eval RESPIRATORY FAILURE : resolved due to severe metabolic acidosis required mechanical ventilation metabolic acidosis corrected with dialysis extubated on 04/20/17 respiratory status remains stable TYPE 2 DM /POORLY COMPLIANT /DKA corrected with IV insulin gtt /IVF fluid and HD - presents with DKA , severe metabolic acidosis , -as has not been taking insulin for days Hb A1c > 13 ( poorly controlled ) appreciate pharmacy input for glycemic management SEVERE METABOLIC ACIDOSIS : due to above corrected after dialysis Anion gap has resolved, Hco3 22 presented with Hco3 9 /AG >16 ABG shows pH 7.06/co2 22/PO2 120/Hco3 6 lactic acid -wnl pt treated with IV insulin gtt /hco3 gtt , Hemodialysis X1 episode electrolytes remains stable appreciate input form Nephrology /[employer] Offset [employer]inter ACUTE KIDNEY INJURY IN SETTING OF CKD STAGE 3 due to DKA , hx of diabetic nephropathy , baseline cr approx ~1.3 continue to improve Cr 1.9-> 2 -> 1.8 -> 1.6 ACEI /HCTZ kept on hold Nephrology following emergent dialysis done for severe metabolic acidosis renal function improved after HD ; Cr 1.8 adequate urine out put HYPERAMMONEMIA : ammonia level improved hepatic steatosis LFT's wnl , except for mild elevation of Alk phos no report of ETOH abuse CT abdomen /pelvis in 2016 noted to have fatty infiltration of liver recent EGD by Dr. Hassan in 2007 for epigastric pain. Endoscopy was normal and biopsies suggested reflux esophagitis at the GE junction. liver USG -no significant finding GI eval requested , appreciate input no GI intervention indicated , recommends continued correction of DKA , metabolic acidosis HYPERTRIGLYCERIDEMIA : improved TG Level > 1400 -> 600 mild pancreatitis noted , Lipase 600-400 Lipase level continues to improve Leukocytosis: i -Likely 2/2 DKA/dehydration possible infection stool; for cdiff + ve ; on PO vancomycin -Empirically treated with vanc and cefepime -Blood cultures-negative -ID following H/o c diff: -s/p colectomy -stool + ve C diff _PO vancomycin ordered contact precaution DVT Ppx: Heparin SQ Code status: FULL DISPOSITION stable to be transferred to PCU
[2017-04-25] MEDS: PREGABALIN 50 MG CAP PO SCH (20:35)
[2017-04-25] MEDS: DULOXETINE HCL 60 MG CAP PO SCH (21:02)
--- NOTE | 2017-04-25 21:22 | Progress Note ---
Post ICU Progress Note Date & Time Apr 25, 2017 at 21:22 Vital Signs Vital Signs Past 12 Hours Date Time Temp Pulse Resp B/P (MAP) Pulse Ox O2 Delivery O2 Flow Rate FiO2 04/25/17 20:00 100 Nasal Cannula 2.0 04/25/17 19:15 36.9 77 18 135/91 (106) 100 Room Air 04/25/17 16:00 100 Nasal Cannula 2.0 04/25/17 15:49 36.6 76 135/87 (103) 100 Nasal Cannula 2.0 04/25/17 12:05 Room Air 04/25/17 11:50 36.8 76 18 153/94 (113) 100 Room Air Notes Mental Status: alert / awake, participated in evaluation Nausea / Vomiting: adequately controlled Pain: adequately controlled Airway Patency, RR, SpO2: stable & adequate BP & HR: stable & adequate Virginia Hernandez is a 42yo female with hx of DM2, HTN, Colectomy for C. diff that presented to the ED on 04/18 and suffered from OK, DKA,, toxic metabolic encephalopathy, and high ammonia levels. Pt was intubated on 04/[address] Vences and underwent central line and arterial line by Jesus Kemp and later a femoral temporary HD line by fireperson. Pt underwent HD x [address] Everett. Pt extubated on 04/20 and confusion slowly improved. Lines were removed and pt was transferred to telemetry on 04/23/2017. Her confusion has resolved. She remains hemodynamically stable at this time. She states she feels well and wishes to go home as soon as medically cleared. Per documentation, Dr. Evreett is following current labs and is willing to discharge home tomorrow (04/26) if bicarb remains stable. Note: Her cr has begun to climb again and is currently 2.24. She had no new findings during my examination. Consider outpatient follow up in 1 to 2 weeks with: Dr. Garsia (Primary Care) and Dr. Everett (Nephrology Outpt) Repeat imaging needed: NA Follow up cultures: NA Reviewed progress notes, labs, and inpatient medication list Continue current management Additional recommendations: None Pt is hemodynamically stable, critical care will sign off at this time. Thank you for including us in the care of this pt, please feel free to reconsult as needed. Consults & Procedures Consultants: Nephrology - [facility] Procedures: Intubation 04/19/17 Right femoral dual-lumen HD catheter - 04/19/17 Left femoral artery a-line - 04/19/17 Extubation 04/20/17
[2017-04-26] MEDS: VANCOMYCIN HCL 250 MG/5 ML SOLN PO SCH ×2 (00:01→05:42)
[2017-04-26] MEDS: RASPBERRY SYRUP 5 ML UDP PO SCH ×2 (00:01→05:42)
[2017-04-26 00:02] VITALS: BP 159/87; PULSE 72; TEMP 36.8; O2SAT 98
[2017-04-26 04:20] VITALS: BP 137/70; PULSE 79; TEMP 36.6; O2SAT 97
[2017-04-26] MEDS: HEPARIN SOD 5000 UNIT/0.5 ML CARP SQ SCH (05:46)
[2017-04-26 05:54] LABS: HEMATOCRIT 28.3 % (37-47); HEMOGLOBIN 9.1 g/dL (12.0-16.0); MEAN CELL VOLUME 80.6 fL (80-100); MEAN CORPUSCULAR HEMOGLOBIN 25.9 pg (25-34); MEAN CORPUSCULAR HGB CONC 32.2 g/dl (32-36); MEAN PLATELET VOLUME 9.2 fL (7.4-10.4); PLATELET COUNT 257 K/uL (130-400); RED CELL DISTRIBUTION WIDTH CV 17.2 % (11.5-14.5); RED CELL DISTRIBUTION WIDTH SD 49.7 fL (36.4-46.3); WHITE BLOOD COUNT 9.44 K/uL (4.8-10.8)
[2017-04-26 06:28] LABS: CALCIUM 8.9 mg/dl (8.5-10.1); CREATININE 2.19 mg/dl (0.60-1.20); POTASSIUM 4.1 mmol/L (3.5-5.1)
[2017-04-26] MEDS ORDERED: ETOMIDATE 2 MG/ML 20 ML VIAL IV ONE (07:13)
[2017-04-26] MEDS ORDERED: SUCCINYLCHOLINE CHLORIDE 20 MG/ML 10 ML VIAL IV ONE (07:13)
[2017-04-26] MEDS: LABETALOL HCL 200 MG TAB PO SCH (07:42)
[2017-04-26] MEDS: AMLODIPINE BESYLATE 5 MG TAB PO SCH (07:42)
[2017-04-26] MEDS: SODIUM BICARBONATE 650 MG TAB PO SCH (07:43)
[2017-04-26] MEDS: PANTOprazole SOD 40 MG TAB PO SCH (07:43)
[2017-04-26] MEDS: INSULIN ASPART 100 UNITS/ML 3 ML PEN SC SCH (07:52)
[2017-04-26 07:54] VITALS: BP 143/79; PULSE 74; TEMP 36.6; O2SAT 98
[2017-04-26] MEDS ORDERED: INSULIN GLARGINE SOLOSTAR 100 UNITS/ML 3 ML PEN SC SCH (09:00)
--- NOTE | 2017-04-26 09:31 | Progress Note ---
Subjective Date of Service: Apr 26, 2017. Subjective Pt evaluation today including: conversation w/ patient, physical exam, lab review, review of studies, review of inpatient medication list Saw/examined the patient in room 211 No problems/issues to note today, very eager to go home. Denies diarrhea, denies dysuria or chest pain/shortness of breath Problem List Medical Problems: (1) Abdominal pain Status: Acute (2) Confusion Status: Acute (3) Constipation Status: Acute (4) Dehydration Status: Acute (5) Dehydration Status: Acute (6) Hyperammonemia Status: Acute (7) Pneumonia Status: Acute Review of Systems Constitutional: No fever, No chills, No weakness Respiratory: No shortness of breath Cardiac: No chest pain Abdomen: No pain, No nausea, No vomiting, No diarrhea Female : No dysuria, No urinary frequency Psychiatric: No depression symptoms, No anxiety, No insomnia Endo: No fatigue, No excessive thirst, No excessive urination Medications Current Inpatient Medications Medications (Trade) Dose Ordered Sig/Yudy Route Start Time Stop Time Status Last Admin Dose Admin Glucose (Glucose 40% Gel) UD PRN PO 04/17/17 15:00 05/17/17 14:59 Glucose (Glucose Chew Tab) 1 tabs UD PRN PO 04/17/17 15:00 05/17/17 14:59 Dextrose (Dextrose 50% 50ML Syringe) 50 ml UD PRN IV 04/17/17 15:00 05/17/17 14:59 Glucagon (Glucagon Inj) 1 mg UD PRN SQ 04/17/17 15:00 05/17/17 14:59 Miscellaneous Information (Consult Glycemic Management Pharmacy) 1 ea UD PRN N/A 04/17/17 15:45 05/17/17 15:44 Heparin Sodium (Porcine) (Heparin Sq 5000 Unit/0.5ml) 5,000 unit Q8 SQ 04/17/17 22:00 05/17/17 21:59 04/26/17 05:46 5,000 UNIT Acetaminophen (Tylenol Tab) 650 mg Q4H PRN PO 04/17/17 16:00 05/17/17 15:59 04/26/17 06:58 650 MG Ondansetron HCl (Zofran Inj) 4 mg Q6H PRN IV 04/17/17 16:00 05/17/17 15:59 Albuterol (Ventolin Hfa Inhaler) 2 puffs Q4H PRN INH 04/17/17 16:15 05/17/17 16:14 Atorvastatin Calcium (Lipitor Tab) 10 mg DAILY PO 04/18/17 09:00 05/18/17 08:59 Future Hold Duloxetine HCl (Cymbalta Cap) 60 mg QPM PO 04/17/17 21:00 05/17/17 20:59 Future hold 04/25/17 21:02 60 MG Pregabalin (Lyrica Cap) 50 mg QPM PO 04/17/17 21:00 05/17/17 20:59 Future hold 04/25/17 20:35 50 MG Topiramate (Topamax Tab) 75 mg QPM PO 04/18/17 21:00 05/18/17 20:59 Future Hold Vancomycin HCl (Vancomycin Oral Soln) 250 mg Q6 PO 04/20/17 12:00 05/04/17 11:59 04/26/17 05:42 250 MG Raspberry (Raspberry Syrup 5ml Cup) 5 ml Q6 PO 04/20/17 12:00 05/04/17 11:59 04/26/17 05:42 5 ML Acetaminophen 650 mg/Empty Bag 65 ml @ 260 mls/hr Q6H PRN IV 04/21/17 13:45 05/21/17 13:44 Insulin Aspart (novoLOG ASPART) SLIDING SCALE ACHS SC 04/22/17 09:00 05/22/17 08:59 04/26/17 07:52 16 UNITS Amlodipine Besylate (Norvasc Tab) 10 mg QAM PO 04/23/17 09:00 05/18/17 08:59 04/26/17 07:42 10 MG Hydralazine HCl (HydrALAZINE INJ) 20 mg Q4H PRN IV. 04/23/17 09:30 05/23/17 09:29 Hydralazine HCl (HydrALAZINE INJ) 10 mg Q4H PRN IV. 04/23/17 09:30 05/23/17 09:29 04/24/17 07:55 10 MG Labetalol HCl (Normodyne Tab) 200 mg BID PO 04/23/17 21:00 05/23/17 20:59 04/26/17 07:42 200 MG Pantoprazole Sodium (Protonix Tab) 40 mg QAM PO 04/24/17 09:00 05/24/17 08:59 04/26/17 07:43 40 MG Sodium Bicarbonate (Sodium Bicarbonate Tab) 1,300 mg TID PO 04/25/17 12:30 05/25/17 12:29 04/26/17 07:43 1,300 MG Insulin Glargine (Lantus Solostar Pen) 40 units BID SC 04/26/17 09:00 05/26/17 08:59 04/26/17 07:53 40 UNITS Objective Vital Signs Date Time Temp Pulse Resp B/P (MAP) Pulse Ox O2 Delivery O2 Flow Rate FiO2 04/26/17 08:53 Room Air 04/26/17 08:17 Room Air 04/26/17 07:54 36.6 74 16 143/79 (100) 98 Room Air 04/26/17 04:20 36.6 79 17 137/70 (92) 97 Room Air 04/26/17 04:00 Room Air 04/26/17 00:02 36.8 72 18 159/87 (111) 98 Room Air 04/26/17 00:00 Room Air 04/25/17 20:00 100 Nasal Cannula 2.0 04/25/17 19:15 36.9 77 18 135/91 (106) 100 Room Air 04/25/17 16:00 100 Nasal Cannula 2.0 04/25/17 15:49 36.6 76 135/87 (103) 100 Nasal Cannula 2.0 04/25/17 12:05 Room Air 04/25/17 11:50 36.8 76 18 153/94 (113) 100 Room Air Physical Exam General Appearance: WD/WN, no apparent distress, + pertinent finding (+facial hair) Respiratory/Chest: no respiratory distress, no accessory muscle use Cardiovascular: regular rate, rhythm, no edema, no murmur Abdomen: normal bowel sounds, non tender, soft Extremities: normal inspection, no pedal edema Neurologic/Psychiatric: no motor/sensory deficits, alert, normal mood/affect Laboratory Results Last 24 Hours Test 04/25/17 12:15 04/25/17 16:03 04/25/17 20:15 04/26/17 05:40 Bedside Glucose 110 mg/dl 144 mg/dl 122 mg/dl White Blood Count 9.44 K/uL Red Blood Count 3.51 M/uL Hemoglobin 9.1 g/dL Hematocrit 28.3 % Mean Corpuscular Volume 80.6 fL Mean Corpuscular Hemoglobin 25.9 pg Mean Corpuscular Hemoglobin Concent 32.2 g/dl RDW Standard Deviation 49.7 fL RDW Coefficient of Variation 17.2 % Platelet Count 257 K/uL Mean Platelet Volume 9.2 fL Sodium Level 138 mmol/L Potassium Level 4.1 mmol/L Chloride Level 113 mmol/L Carbon Dioxide Level 16 mmol/L Anion Gap 9.0 mmol/L Blood Urea Nitrogen 27 mg/dl Creatinine 2.19 mg/dl Est Creatinine Clear Calc Drug Dose 33.8 ml/min Estimated GFR () 30.8 Estimated GFR (Non- 26.5 BUN/Creatinine Ratio 12.5 Random Glucose 107 mg/dl Calcium Level 8.9 mg/dl Magnesium Level 1.9 mg/dl Lipase 1057 U/L Test 04/26/17 06:51 Bedside Glucose 96 mg/dl Assessment and Plan Diabetic Ketoacidosis Severe Metabolic Acidosis OK superimposed on CKD stage 3 Acute Hypoxic Respiratory failure requiring mechanical ventilation; now extubated Metabolic Encephalopathy C. Diff Infection Plan 04/26 plan to d/c home today her bicarb is up from 14 to 16 will d/c on sodium bicarb tablets d/c on oral vanco x 2 weeks for possible C. diff will decrease Lisinopril from 20mg to 10mg, with outpatient f/u on kidney function hold metformin for now continue insulin Plan 04/25 appreciate nephrology input sodium bicarb tablets added monitor bicarb and anion gap d/c home in AM Plan 04/24/17 patient is doing better now she went into DKA due to non-compliance continue Lantus, sliding scale insulin and metformin on discharge will d/c abx. in AM likely d/c home in AM CONFUSION /ENCEPHALOPATHIC -resolved , awake and alert , conversing appropriately possible metabolic encephalopathy due to acute illness /infection /renal failure improved CT head with out contrast -no acute change noted appreciate Neuro eval RESPIRATORY FAILURE : resolved due to severe metabolic acidosis required mechanical ventilation metabolic acidosis corrected with dialysis extubated on 04/20/17 respiratory status remains stable TYPE 2 DM /POORLY COMPLIANT /DKA corrected with IV insulin gtt /IVF fluid and HD - presents with DKA , severe metabolic acidosis , -as has not been taking insulin for days Hb A1c > 13 ( poorly controlled ) appreciate pharmacy input for glycemic management SEVERE METABOLIC ACIDOSIS : due to above corrected after dialysis Anion gap has resolved, Hco3 22 presented with Hco3 9 /AG >16 ABG shows pH 7.06/co2 22/PO2 120/Hco3 6 lactic acid -wnl pt treated with IV insulin gtt /hco3 gtt , Hemodialysis X1 episode electrolytes remains stable appreciate input form Nephrology /[employer]er ACUTE KIDNEY INJURY IN SETTING OF CKD STAGE 3 due to DKA , hx of diabetic nephropathy , baseline cr approx ~1.3 continue to improve Cr 1.9-> 2 -> 1.8 -> 1.6 ACEI /HCTZ kept on hold Nephrology following emergent dialysis done for severe metabolic acidosis renal function improved after HD ; Cr 1.8 adequate urine out put HYPERAMMONEMIA : ammonia level improved hepatic steatosis LFT's wnl , except for mild elevation of Alk phos no report of ETOH abuse CT abdomen /pelvis in 2015 noted to have fatty infiltration of liver recent EGD by Dr. Hassan in 2007 for epigastric pain. Endoscopy was normal and biopsies suggested reflux esophagitis at the GE junction. liver USG -no significant finding GI eval requested , appreciate input no GI intervention indicated , recommends continued correction of DKA , metabolic acidosis HYPERTRIGLYCERIDEMIA : improved TG Level > 1400 -> 600 mild pancreatitis noted , Lipase 600-400 Lipase level continues to improve Leukocytosis: i -Likely 2/2 DKA/dehydration possible infection stool; for cdiff + ve ; on PO vancomycin -Empirically treated with vanc and cefepime -Blood cultures-negative -ID following H/o c diff: -s/p colectomy -stool + ve C diff _PO vancomycin ordered contact precaution DVT Ppx: Heparin SQ Code status: FULL DISPOSITION stable to be transferred to PCU
[2017-04-26] MEDS ORDERED: AMLO-114 PO (09:57)
[2017-04-26] MEDS ORDERED: VANC1CAP3 PO (09:57)
[2017-04-26] MEDS ORDERED: LISI-461 PO (09:57)
[2017-04-26] MEDS ORDERED: SODI650T8 PO (09:57)
--- NOTE | 2017-04-26 10:09 | Discharge Instructions ---
Discharge Instructions Date of Service Apr 26, 2017. Admission Reason for Admission: Confusion, Dka Discharge Discharge Diagnosis / Problem: Diabetic Ketoacidosis Discharge Goals Goal(s): Decrease discomfort, Improve function, Diagnostic testing, Therapeutic intervention Activity Recommendations Activity Limitations: resume your previous activity . Instructions / Follow-Up Instructions / Follow-Up Please follow-up with Dr. Garsia as soon as possible * You must stay compliant with insulin; take 40 units of Lantus twice daily and take 20 units of NovoLog three times daily with meals * You will be on sodium bicarb tablets; take this daily * You will be on vancomycin (antibiotic) for C. Diff - take this for two weeks * Your dose of Lisinopril and Amlodipine have changed * Blood work should be checked on May 01 - results should be sent to Dr. Garsia * You should have your Ha1c rechecked in 3 months * Please follow-up with podiatry and ophthalmology regularly Current Hospital Diet Patient's current hospital diet: Diabetes Type 2 Diet, Low Fat Diet Discharge Diet Recommended Diet: Diabetes Type 2 Diet Pending Studies Studies pending at discharge: no Laboratory Results Hemoglobin A1c Test 04/17/17 13:50 Range/Units Estimated Average Glucose 349 mg/dl Hemoglobin A1c 13.8 H 4.5-5.6 % Lipid Panel Test 04/19/17 20:00 04/24/17 07:24 Range/Units Triglycerides Level 1456 H 596 H 0-150 mg/dl Cholesterol Level 293 H 0-200 mg/dl HDL Cholesterol 20 mg/dl Cholesterol/HDL Ratio 14.7 LDL Cholesterol, Calculated mg/dl Medical Emergencies . Who to Call and When: Medical Emergencies: If at any time you feel your situation is an emergency, please call 911 immediately. . Non-Emergent Contact Non-Emergency issues call your: Primary Care Provider . . "Provider Documentation" section prepared by Raymond Jon. . VTE Core Measure Inpt VTE Proph given/why not?: Unfractionated heparin SQ
--- NOTE | 2017-04-26 10:11 | Infectious Disease Progress Nt ---
Progress Note Date of Service Apr 26, 2017. Subjective Pt evaluation today including: conversation w/ patient, physical exam, chart review, lab review, review of studies, conversation w/ production consultant, review of inpatient medication list Patient offering no new complaints today. Remains afebrile, no increasing cough or shortness of breath. No abdominal pain. All Other Systems: Reviewed and Negative Medications Current Inpatient Medications Medications (Trade) Dose Ordered Sig/Yudy Route Start Time Stop Time Status Last Admin Dose Admin Glucose (Glucose 40% Gel) UD PRN PO 04/17/17 15:00 05/17/17 14:59 Glucose (Glucose Chew Tab) 1 tabs UD PRN PO 04/17/17 15:00 05/17/17 14:59 Dextrose (Dextrose 50% 50ML Syringe) 50 ml UD PRN IV 04/17/17 15:00 05/17/17 14:59 Glucagon (Glucagon Inj) 1 mg UD PRN SQ 04/17/17 15:00 05/17/17 14:59 Miscellaneous Information (Consult Glycemic Management Pharmacy) 1 ea UD PRN N/A 04/17/17 15:45 05/17/17 15:44 Heparin Sodium (Porcine) (Heparin Sq 5000 Unit/0.5ml) 5,000 unit Q8 SQ 04/17/17 22:00 05/17/17 21:59 04/26/17 05:46 5,000 UNIT Acetaminophen (Tylenol Tab) 650 mg Q4H PRN PO 04/17/17 16:00 05/17/17 15:59 04/26/17 06:58 650 MG Ondansetron HCl (Zofran Inj) 4 mg Q6H PRN IV 04/17/17 16:00 05/17/17 15:59 Albuterol (Ventolin Hfa Inhaler) 2 puffs Q4H PRN INH 04/17/17 16:15 05/17/17 16:14 Atorvastatin Calcium (Lipitor Tab) 10 mg DAILY PO 04/18/17 09:00 05/18/17 08:59 Future Hold Duloxetine HCl (Cymbalta Cap) 60 mg QPM PO 04/17/17 21:00 05/17/17 20:59 Future hold 04/25/17 21:02 60 MG Pregabalin (Lyrica Cap) 50 mg QPM PO 04/17/17 21:00 05/17/17 20:59 Future hold 04/25/17 20:35 50 MG Topiramate (Topamax Tab) 75 mg QPM PO 04/18/17 21:00 05/18/17 20:59 Future Hold Vancomycin HCl (Vancomycin Oral Soln) 250 mg Q6 PO 04/20/17 12:00 05/04/17 11:59 04/26/17 05:42 250 MG Raspberry (Raspberry Syrup 5ml Cup) 5 ml Q6 PO 04/20/17 12:00 05/04/17 11:59 04/26/17 05:42 5 ML Acetaminophen 650 mg/Empty Bag 65 ml @ 260 mls/hr Q6H PRN IV 04/21/17 13:45 05/21/17 13:44 Insulin Aspart (novoLOG ASPART) SLIDING SCALE ACHS SC 04/22/17 09:00 05/22/17 08:59 04/26/17 07:52 16 UNITS Amlodipine Besylate (Norvasc Tab) 10 mg QAM PO 04/23/17 09:00 05/18/17 08:59 04/26/17 07:42 10 MG Hydralazine HCl (HydrALAZINE INJ) 20 mg Q4H PRN IV. 04/23/17 09:30 05/23/17 09:29 Hydralazine HCl (HydrALAZINE INJ) 10 mg Q4H PRN IV. 04/23/17 09:30 05/23/17 09:29 04/24/17 07:55 10 MG Labetalol HCl (Normodyne Tab) 200 mg BID PO 04/23/17 21:00 05/23/17 20:59 04/26/17 07:42 200 MG Pantoprazole Sodium (Protonix Tab) 40 mg QAM PO 04/24/17 09:00 05/24/17 08:59 04/26/17 07:43 40 MG Sodium Bicarbonate (Sodium Bicarbonate Tab) 1,300 mg TID PO 04/25/17 12:30 05/25/17 12:29 04/26/17 07:43 1,300 MG Insulin Glargine (Lantus Solostar Pen) 40 units BID SC 04/26/17 09:00 05/26/17 08:59 04/26/17 07:53 40 UNITS Objective Vital Signs Date Time Temp Pulse Resp B/P (MAP) Pulse Ox O2 Delivery O2 Flow Rate FiO2 04/26/17 08:53 Room Air 04/26/17 08:17 Room Air 04/26/17 07:54 36.6 74 16 143/79 (100) 98 Room Air 04/26/17 04:20 36.6 79 17 137/70 (92) 97 Room Air 04/26/17 04:00 Room Air 04/26/17 00:02 36.8 72 18 159/87 (111) 98 Room Air 04/26/17 00:00 Room Air 04/25/17 20:00 100 Nasal Cannula 2.0 04/25/17 19:15 36.9 77 18 135/91 (106) 100 Room Air 04/25/17 16:00 100 Nasal Cannula 2.0 04/25/17 15:49 36.6 76 135/87 (103) 100 Nasal Cannula 2.0 04/25/17 12:05 Room Air 04/25/17 11:50 36.8 76 18 153/94 (113) 100 Room Air Physical Exam General Appearance: WD/WN, no apparent distress, + obese Eyes: normal inspection, sclerae normal ENT: normal ENT inspection, pharynx normal Neck: supple, no adenopathy, trachea midline Respiratory/Chest: chest non-tender, lungs clear, normal breath sounds, no respiratory distress Cardiovascular: regular rate, rhythm, no gallop, no murmur Abdomen: normal bowel sounds, non tender, soft, no organomegaly Extremities: non-tender, normal capillary refill Neurologic/Psychiatric: alert, oriented x 3 Skin: normal color, warm/dry, no rash Lymphatic: no adenopathy Laboratory Results Last 24 Hours Test 04/25/17 12:15 04/25/17 16:03 04/25/17 20:15 04/26/17 05:40 Bedside Glucose 110 mg/dl 144 mg/dl 122 mg/dl White Blood Count 9.44 K/uL Red Blood Count 3.51 M/uL Hemoglobin 9.1 g/dL Hematocrit 28.3 % Mean Corpuscular Volume 80.6 fL Mean Corpuscular Hemoglobin 25.9 pg Mean Corpuscular Hemoglobin Concent 32.2 g/dl RDW Standard Deviation 49.7 fL RDW Coefficient of Variation 17.2 % Platelet Count 257 K/uL Mean Platelet Volume 9.2 fL Sodium Level 138 mmol/L Potassium Level 4.1 mmol/L Chloride Level 113 mmol/L Carbon Dioxide Level 16 mmol/L Anion Gap 9.0 mmol/L Blood Urea Nitrogen 27 mg/dl Creatinine 2.19 mg/dl Est Creatinine Clear Calc Drug Dose 33.8 ml/min Estimated GFR () 30.8 Estimated GFR (Non- 26.5 BUN/Creatinine Ratio 12.5 Random Glucose 107 mg/dl Calcium Level 8.9 mg/dl Magnesium Level 1.9 mg/dl Lipase 1057 U/L Test 04/26/17 06:51 Bedside Glucose 96 mg/dl Assessment and Plan 42-year-old female with diabetes with prior episodes of sepsis, severe C difficile status post colectomy, and hidradenitis, who presents with evidence of sepsis with possible septic shock, with positive PCR for C diff. Not clear whether patient is carrier of C difficile or whether she may have active infection of residual colon or small bowel. Blood cultures have been negative. Follow-up chest x-ray without evidence of pneumonia. Would give 2 week course of oral vancomycin therapy for C difficile, continue to follow. antibiotics. For discharge.
--- NOTE | 2017-04-26 10:13 | Discharge Summary ---
Discharge Summary Date of Service Apr 26, 2017. Discharge Summary Admission Date: Apr 17, 2017 at 16:00 Discharge Date: Apr 26, 2017 Discharge Disposition: Home Principal Diagnosis: Diabetic Ketoacidosis Severe Metabolic Acidosis OK superimposed on CKD stage 3 Acute Hypoxic Respiratory failure requiring mechanical ventilation; now extubated Metabolic Encephalopathy C. Diff Infection Medication Reconciliation New Medications: Vancomycin Hcl (Vancomycin) 250 Mg Cap 250 MG PO QID for 14 Days, #56 CAP Sodium Bicarbonate (Sodium Bicarbonate) 650 Mg Tab 1300 MG PO TID for 30 Days, #180 TAB Changed Medications: Amlodipine (Norvasc) 10 Mg Tab 10 MG PO DAILY for 30 Days, #30 TAB (Changed from: Amlodipine (Norvasc) 5 Mg Tab 5 Mg PO QAM) Lisinopril (Lisinopril) 10 Mg Tab 10 MG PO DAILY for 30 Days, #30 TABS (Changed from: Lisinopril (Zestril) 20 Mg Tab 20 Mg PO QAM) Continued Medications: Albuterol Hfa (Ventolin Hfa) 200 Puffs/05812 Mcg Aers 2 PUFFS INH Q4H PRN for SOB/Wheezing, #1 INHALER Atorvastatin (Lipitor) 10 Mg Tab 10 MG PO DAILY, TAB Duloxetine Hcl (Cymbalta) 60 Mg Cap 60 MG PO QPM, CAP Esomeprazole Magnesium (Nexium) 40 Mg Capcr 40 MG PO QAM, CAP Fenofibrate (Tricor) 160 Mg Tab 160 MG PO DAILY, TAB Hydrochlorothiazide (Hctz) 25 Mg Tab 25 MG PO DAILY, TAB Insulin Aspart (Novolog Flexpen) 100 Units/Ml Inj 20 UNITS SC TIDM Insulin Glargine (Lantus Solostar) 100 Unit/Ml Inj 40 UNITS SC AMPM Pregabalin (Lyrica) 50 Mg Cap 50 MG PO QPM, #90 Propranolol Hcl (Propranolol Hcl Er) 120 Mg Cap 120 MG PO BID Discontinued Medications: Topiramate (Topamax) 50 Mg Tab 75 MG PO QPM, TAB Admission Information HPI (per Admitting provider): This is a 42yo F with DM II, HTN, HLD, anxiety, depression and history of c diff s/p colectomy who presents with dizziness and generalized weakness x 5 days. Patient states that she was in a normal state of health until 5 days ago, when she started to feel lightheaded with generalized weakness. Endorses multiple cat scratches over the past month and attributed her malaise to possible infection of her scratches. Began to feel confused over the past few days. Also endorses abdominal discomfort,nausea, feeling dehydrated and decreased urination over the past day. Patient's mom visited her today and found her to be confused, agitated, flushed and weak as compared to baseline. Brought her into ED for further evaluation. Due to patient feeling ill, she has not taken her insulin or BP meds for 2 days. Has been taking her antidepressant. Denies any fever, chills, headache, CP , SOB, vomiting episodes, diarrhea or numbness/paresthesias or swelling in extremities. States that she has felt confused similar to this in the past on a few occasions. Was admitted to [facility] in 2012 for bacteremia from C diff and required intubation. Was last admitted to [facility] in 2013 for sepsis 2/2 infected wounds and severe metabolic acidosis 2/2 DKA. Also had an OK that resolved with IVF resuscitation. Cultures grew staph aureus and coag negative staph at that time and she was treated with daptomycin. Physical Exam (per Admitting): General Appearance: + mild distress, + pertinent finding (Flushed, restless , tachypnic ) Head: normocephalic, atraumatic Eyes: normal inspection, PERRL, sclerae normal ENT: normal ENT inspection, hearing grossly normal, pharynx normal (dry mucous membranes ) Neck: no adenopathy, thyroid normal, trachea midline Respiratory/Chest: chest non-tender, lungs clear, normal breath sounds, no respiratory distress, no accessory muscle use Cardiovascular: regular rate, rhythm, no murmur, normal peripheral pulses Abdomen/GI: non tender, soft, no organomegaly Back: normal inspection Extremities/Musculoskelatal: normal inspection, no calf tenderness, no pedal edema Neurologic/Psych: no motor/sensory deficits, alert, oriented x 3, + pertinent finding (agitated but A&Ox3, answered all questions appropriately ) Skin: normal color, + pertinent finding (Presence of diffuse healing scratches on bilateral arms and legs. No purulent drainage.) Hospital Course Diabetic Ketoacidosis Severe Metabolic Acidosis OK superimposed on CKD stage 3 Acute Hypoxic Respiratory failure requiring mechanical ventilation; now extubated Metabolic Encephalopathy C. Diff Infection Plan 04/26 plan to d/c home today her bicarb is up from 14 to 16 will d/c on sodium bicarb tablets d/c on oral vanco x 2 weeks for possible C. diff will decrease Lisinopril from 20mg to 10mg, with outpatient f/u on kidney function hold metformin for now continue insulin Plan 04/25 appreciate nephrology input sodium bicarb tablets added monitor bicarb and anion gap d/c home in AM Plan 04/24/17 patient is doing better now she went into DKA due to non-compliance continue Lantus, sliding scale insulin and metformin on discharge will d/c abx. in AM likely d/c home in AM CONFUSION /ENCEPHALOPATHIC -resolved , awake and alert , conversing appropriately possible metabolic encephalopathy due to acute illness /infection /renal failure improved CT head with out contrast -no acute change noted appreciate Neuro eval RESPIRATORY FAILURE : resolved due to severe metabolic acidosis required mechanical ventilation metabolic acidosis corrected with dialysis extubated on 04/20/17 respiratory status remains stable TYPE 2 DM /POORLY COMPLIANT /DKA corrected with IV insulin gtt /IVF fluid and HD - presents with DKA , severe metabolic acidosis , -as has not been taking insulin for days Hb A1c > 13 ( poorly controlled ) appreciate pharmacy input for glycemic management SEVERE METABOLIC ACIDOSIS : due to above corrected after dialysis Anion gap has resolved, Hco3 22 presented with Hco3 9 /AG >16 ABG shows pH 7.06/co2 22/PO2 120/Hco3 6 lactic acid -wnl pt treated with IV insulin gtt /hco3 gtt , Hemodialysis X1 episode electrolytes remains stable 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 Hassan in 2007 for epigastric pain. Endoscopy was normal and biopsies suggested reflux esophagitis at the GE junction. liver USG -no significant finding GI eval requested , appreciate input no GI intervention indicated , recommends continued correction of DKA , metabolic acidosis HYPERTRIGLYCERIDEMIA : improved TG Level > 1400 -> 600 mild pancreatitis noted , Lipase 600-400 Lipase level continues to improve Leukocytosis: i -Likely 2/2 DKA/dehydration possible infection stool; for cdiff + ve ; on PO vancomycin -Empirically treated with vanc and cefepime -Blood cultures-negative -ID following H/o c diff: -s/p colectomy -stool + ve C diff _PO vancomycin ordered contact precaution DVT Ppx: Heparin SQ Code status: FULL DISPOSITION stable to be transferred to PCU Total time spent on discharge = 45 minutes This includes examination of the patient, discharge planning, medication reconciliation, and communication with other providers. Discharge Instructions Please follow-up with Dr. Garsia as soon as possible * You must stay compliant with insulin; take 40 units of Lantus twice daily and take 20 units of NovoLog three times daily with meals * You will be on sodium bicarb tablets; take this daily * You will be on vancomycin (antibiotic) for C. Diff - take this for two weeks * Your dose of Lisinopril and Amlodipine have changed * Blood work should be checked on May 01 - results should be sent to Dr. Garsia * You should have your Ha1c rechecked in 3 months * Please follow-up with podiatry and ophthalmology regularly
[2017-04-26 10:29] VITALS: BP 143/79; PULSE 74; TEMP 36.6; O2SAT 98
--- NOTE | 2017-04-28 09:17 | EDITING REQUIRED CODING QUERY ---
SEPSIS To promote full compliance with coding requirements relating to patient care, physician participation is requested in all cases of chronometer assembler and adjuster uncertainty. Please assist us with the question(s) below: In responding to this query, please exercise your independent professional judgement. The fact that a question is asked does not imply that any particular answer is desired or expected. We appreciate your clarification on this issue. Throughout the medical record, you have clearly documented a localized infection and your patient has clinical evidence of a generalized sepsis or severe sepsis. The term urosepsis is a nonspecific entity and is coded as an UTI. If the patient has sepsis, severe sepsis, from an urinary source or some other source, please clarify in your response below. The medical record reflects the following clinical findings: (With dates as appropriate) (Body temperature of >38.3 C(101 F) or <36 C(96.8F), pulse >90/minute, respirations >20/minute, WBC count >12,000 or <4,000, altered mental status, significant edema or positive fluid balance, hyperglycemia without diabetes, hypotension, metabolic acidosis (elev. lactate level, anion gap or reduced blood pH), shock, positive blood culture (enter organism) ()Bacteremia (Nonspecific laboratory finding of bacteria in the blood) Specify Organism () Present on Admission () Not present on admission () Unable to clinically determine () Septicemia (Systemic disease associated with the presence of pathogenic microorganisms in the blood): Specify Organism () Present on Admission () Not present on admission () Unable to clinically determine () Sepsis Specify Organism Specify Associated Condition/Diagnosis () Present on Admission () Not present on admission () Unable to clinically determine () Severe Sepsis (Sepsis associated with acute organ dysfunction) Specify Organism Specify Associated Condition/Diagnosis () Present on Admission () Not present on admission () Unable to clinically determine () Septic Shock (Severe sepsis with acute circulatory failure, unexplained by other causes) () Present on Admission () Not present on admission () Unable to clinically determine (X) Other, patient has: there is no bacteremia, this is not sepsis
== END 2017-04-26 11:04 | disposition home or self-care (01) | DRG 682 ==
LOC: C.EDB 13:03 → C.2T 16:00 → UNDOADMIN 16:00 → EDBEDREQ 16:10 → ENRESERV 16:12 → C.2T 04-18 07:36 → C.MSICU 04-18 07:36 → C.2E 04-23 22:46
PROVIDERS: ADMIT Internal Medicine; ATTEND Family Medicine
PROC: 04HL33Z Insertion of Infusion Device into Left Femoral Artery, Percutaneous Approach (ICD-10-PCS; principal; 2017-04-19)
PROC: 5A1945Z Respiratory Ventilation, 24-96 Consecutive Hours (ICD-10-PCS; principal; 2017-04-19)
PROC: 0BH18EZ Insertion of Endotracheal Airway into Trachea, Via Natural or Artificial Opening Endoscopic (ICD-10-PCS; principal; 2017-04-19)
PROC: 06HM33Z Insertion of Infusion Device into Right Femoral Vein, Percutaneous Approach (ICD-10-PCS; principal; 2017-04-19)
PROC: 03HB33Z Insertion of Infusion Device into Right Radial Artery, Percutaneous Approach (ICD-10-PCS; principal; 2017-04-19)
DX: N17.9 Acute kidney failure, unspecified (principal); E13.10 Other specified diabetes mellitus with ketoacidosis without coma; G93.41 Metabolic encephalopathy; J96.01 Acute respiratory failure with hypoxia; K85.90 Acute pancreatitis without necrosis or infection, unspecified; E87.2 Acidosis; A04.72 Enterocolitis due to Clostridium difficile, not specified as recurrent; E87.1 Hypo-osmolality and hyponatremia; E72.20 Disorder of urea cycle metabolism, unspecified; A49.9 Bacterial infection, unspecified; E87.6 Hypokalemia; E83.51 Hypocalcemia; E78.1 Pure hyperglyceridemia; K76.0 Fatty (change of) liver, not elsewhere classified; I12.9 Hypertensive chronic kidney disease with stage 1 through stage 4 chronic kidney disease, or unspecified chronic kidney disease; N18.3 Chronic kidney disease, stage 3 (moderate); E11.21 Type 2 diabetes mellitus with diabetic nephropathy; E11.22 Type 2 diabetes mellitus with diabetic chronic kidney disease; G43.909 Migraine, unspecified, not intractable, without status migrainosus; F32.9 Major depressive disorder, single episode, unspecified; F41.9 Anxiety disorder, unspecified; F17.200 Nicotine dependence, unspecified, uncomplicated; Z51.81 Encounter for therapeutic drug level monitoring; Z79.899 Other long term (current) drug therapy; Z79.4 Long term (current) use of insulin; Z91.128 Patient's intentional underdosing of medication regimen for other reason; Z86.19 Personal history of other infectious and parasitic diseases; Z83.3 Family history of diabetes mellitus

== ENCOUNTER 2017-05-21 14:03 | Inpatient (IN) | payer BC ==
[~2017-05-21] VITALS: Ht 167.6 cm; Wt 86.4 kg
[2017-05-21] VITALS (15 sets, daily range): BP systolic 92–240; BP diastolic 49–176; PULSE 101–106; TEMP 36.6–36.8; O2SAT 91–100; BMI 30.1
[~2017-05-21 14:03] MED LIST changes: -ALBUAER2 INH; -AMLO-110 PO; +AMLO-114 PO; -INSUINJ14 SC; +LISI-461 PO; -MTR800 PO; +NVLGI/PEN SC; -OXYC-57 PO; +SODI650T8 PO; +VANC1CAP3 PO; +VNTHFA/IN INH
[2017-05-21] MEDS ORDERED: SODIUM CHLORIDE 0.9% 1000ML 1,000 ML IV STA ×2 (15:23→16:48)
--- NOTE | 2017-05-21 15:48 | EMERGENCY ROOM VISIT NOTE ---
History Report prepared by Landy: Latrell Forrest Under the Supervision of: Dr. Jordi Padilla M.D. First contact with patient: 15:09 Chief Complaint: DIZZY Stated Complaint: DIZZY, CAN'T STAND , WEAK Nursing Triage Summary: patient has been very weak and dizzy for 24 hours. she fell last night due to this. complains of right breast pain History of Present Illness The patient is a 42 year old female who presents to the Emergency Room with complaints of constant, severe weakness and dizziness which began 2 days ago. The patient notes that she typically feels severe pain in her right breast when she develops an infection, and felt this sensation in her right breast on Monday night. She notes that she went home that night and vomited twice. She denies any additional episodes of vomiting since Monday night but has felt extremely weak and dizzy since. The patient's family feels that she is more confused than normal. The patient reports that she fell last night secondary to her weakness, but denies hitting her head during her fall. She also notes that she has been experiencing blurry vision. The patient reports that she is diabetic, but states that her sugar levels have been normal for the past several days. She also reports that she has C. Difficile in the past, for which she has been taking vancomycin for the past month. She has had significant inpatient stays in the hospital in the past secondary to C. Difficile. The patient denies any diarrhea and denies any history of infection in her breast. Source of History: patient Onset: 2 days ago. Position: other (Global. ) Quality: other (Weakness/Dizziness.) Timing: constant Associated Symptoms: + vomiting, + weakness, No diarrhea Note: Associated Symptoms: Pain in the right breast. Dizziness. Blurry Vision. Denies: Diabetic emergency, infection of right breast. Review of Systems See HPI for pertinent positives & negatives. A total of 10 systems reviewed and were otherwise negative. Past Medical & Surgical Medical Problems: (1) Acidosis (2) Acute kidney injury (3) Clostridium difficile colitis (4) Colostomy (5) DKA (diabetic ketoacidoses) (6) Lumbar Disc Displacement (7) Pneumonia (8) Sepsis Family History Diabetes mellitus Heart disease Social History Smoking Status: Current Every Day Smoker Drug Use: none Marital Status: Housing Status: lives with family Occupation Status: employed Current/Historical Medications Scheduled Amlodipine (Norvasc), 10 MG PO DAILY Atorvastatin (Lipitor), 10 MG PO DAILY Duloxetine Hcl (Cymbalta), 60 MG PO QPM Esomeprazole Magnesium (Nexium), 40 MG PO QAM Fenofibrate (Tricor), 160 MG PO DAILY Insulin Aspart (Novolog Flexpen), 20 UNITS SC TIDM Insulin Degludec (Tresiba Flextouch), 110 UNITS PO DAILY Lisinopril (Lisinopril), 10 MG PO DAILY Pregabalin (Lyrica), 50 MG PO QPM Propranolol Hcl (Propranolol Hcl Er), 120 MG PO BID Sodium Bicarbonate (Sodium Bicarbonate), 1,300 MG PO TID Vancomycin Hcl (Vancomycin), 250 MG PO TID Scheduled PRN Albuterol Hfa (Ventolin Hfa), 2 PUFFS INH Q4H PRN for SOB/Wheezing Allergies Coded Allergies: BEE STING (Verified Allergy, Intermediate, RED, SHORT OF BREATH, 04/17/17) Physical Exam Vital Signs Date Time Temp Pulse Resp B/P (MAP) Pulse Ox O2 Delivery O2 Flow Rate FiO2 05/21/17 18:01 97 162/106 100 Room Air 05/21/17 17:01 88 20 200/90 100 Room Air 05/21/17 16:45 90 20 175/108 98 Room Air 05/21/17 16:10 82 05/21/17 15:59 98 Room Air 05/21/17 15:59 98 Room Air 05/21/17 15:39 77 22 139/85 100 79 159/85 89 142/98 05/21/17 14:34 72 20 109/78 100 Room Air Physical Exam GENERAL: Patient is a healthy-appearing well-nourished female. HEAD: Normocephalic atraumatic EYES: Ocular movements intact pupils equal and react to light OROPHARYNX mucous membranes are moist no exudates present no erythema or edema present NECK: Supple no nuchal rigidity CHEST: Good equal expansion RIGHT BREAST: No evidence of cellulitis, non-tender on exam. LUNGS: Clear and equal to auscultation CARDIAC: Normal S1 and S2 ABDOMEN: Soft nontender no guarding BACK: No CVA tenderness EXTREMITIES: No pain upon palpation normal muscle strength in all groups no clubbing cyanosis or edema NEURO: Patient is following commands and answering questions appropriately. Alert and oriented x3 Cranial Nerves 2-12 grossly intact Medical Decision & Procedures ER Provider Diagnostic Interpretation: Radiology results as stated below per my review and radiologist interpretation: CHEST ONE VIEW PORTABLE CLINICAL HISTORY: Pt c/o SOB dyspnea COMPARISON STUDY: 04/22/2017 FINDINGS: The bones soft tissues and hemidiaphragms are normal. The cardiomediastinal silhouette is normal. The lungs are clear. The pulmonary vasculature is normal. IMPRESSION: Negative chest. The above report was generated using voice recognition software. It may contain grammatical, syntax or spelling errors. Electronically signed by: Matias Ruth M.D. 05/21/2017 4:11 PM Dictated Date/Time: 05/21/2017 4:11 PM Laboratory Results Test 05/21/17 15:35 05/21/17 15:50 05/21/17 17:37 Creatine Kinase MB 1.9 ng/ml (0.5-3.6) Creatine Kinase MB Ratio (0-3.0) Beta-Hydroxybutyric Acid 1.94 mg/dL (0.2-2.81) Thyroid Stimulating Hormone (TSH) 0.932 uIu/ml (0.300-4.500) Influenza Type A Antigen Neg for Influ A (NEG) Influenza Type B Antigen Neg for Influ B (NEG) Bedside Lactic Acid Venous < 0.30 mmol/L (0.90-1.70) Labs reviewed by ED physician. Medications Administered Medications (Trade) Dose Ordered Sig/Yudy Route Start Time Stop Time Status Last Admin Dose Admin Sodium Chloride 1,000 ml @ 999 mls/hr Q1H1M STAT IV 05/21/17 15:23 05/21/17 16:23 DC 05/21/17 15:23 999 MLS/HR Sodium Chloride 1,000 ml @ 999 mls/hr Q1H1M STAT IV 05/21/17 16:48 05/21/17 17:48 DC 05/21/17 17:42 999 MLS/HR Sodium Chloride 500 ml @ 999 mls/hr Q31M STAT IV 05/21/17 16:51 05/21/17 17:21 DC 05/21/17 17:47 999 MLS/HR Ceftriaxone Sodium (Rocephin Inj) 1 gm NOW STAT IV 05/21/17 16:51 05/21/17 16:53 DC 05/21/17 17:41 1 GM Vancomycin HCl (Vancomycin 1gm/ 270ml Nss) 1 gm NOW STAT IV 05/21/17 16:57 05/21/17 16:59 DC 05/21/17 18:11 1 GM ECG Indication: weakness Rate (beats per minute): 79 Rhythm: normal sinus Findings: other (No ST-depressions or elevations, Old anterior infarct present. ) Change: Patient's electrocardiogram per my interpretation. ED Course 1511: Past medical records reviewed. The patient was evaluated in room A8. A complete history and physical examination was performed. 1523: Ordered Sodium Chloride 1000 mL @ 999 mL/hr IV. 1648: Ordered Sodium Chloride 1000 mL @ 999 mL/hr IV. 1651: Ordered Rocephin 1 gm IV, Sodium Chloride 500 mL @ 999 mL/hr IV. 1657: Ordered Vancomycin HCL 1 gm IV. 1707: I discussed the patient's case with Dr. Dontrell Posada. He will evaluate the patient for further treatment and care. 1719: I discussed the patient's case with Dr. Vangie Donohue Ram Press Operator. Medical Decision Differential diagnosis: Etiologies such as sepsis, UTI, pneumonia, metabolic, electrolyte abnormalities , cardiac sources, intracerebral event, toxicologic, neurologic, as well as others were entertained. This is a 42-year-old female that presents emergency department complaining of breast pain patient reports anytime she gets breast pain that she has a infection. The patient is currently being treated with oral vancomycin. The patient appears to be hyperventilating on examination. She was hypotensive and tachycardic upon arrival to the emergency department and based on this a sepsis workup was initiated. Blood cultures were obtained and the patient was given normal saline bolus of 30 Mls per kilogram. She was also started on Rocephin and vancomycin. The patient was found to have a carbon dioxide of 5 and for this reason I did discuss the case with the rn private duty as well as the hospitalist service. Medication Reconcilliation Current Medication List: was personally reviewed by me Blood Pressure Screening Patient's blood pressure: Normal blood pressure Consults Time Called: 170 Consulting Physician: Dr. Dontrell Posada Returned Call: 1707 I discussed the patient's case with Dr. Dontrell Posada. He will evaluate the patient for further treatment and care. Additional Consults: Time Called: 171 Consulted Physician: Dr. Vangie Donohue Ram Press Operator. Returned Call: 1710 Additional Comments: I discussed the patient's case with Dr. Vangie Donohue Ram Press Operator. Impression Primary Impression: Sepsis Critical Care I have personally spent greater than 90 minutes of critical care time in the direct management of this patient. This includes bedside care, interpretation of diagnostic studies, and testing, discussion with consultants, patient, and family members, and other required patient management activities. This 90 minutes is in excess of all separately billable procedures. Scribe Attestation The scribe's documentation has been prepared under my direction and personally reviewed by me in its entirety. I confirm that the note above accurately reflects all work, treatment, procedures, and medical decision making performed by me. Departure Information Dispostion Being Evaluated By Hospitalist Referrals Wiliam Garsia M.D. (PCP) Patient Instructions My [facility]
[2017-05-21 16:04] LABS: HEMATOCRIT 44.3 % (37-47); HEMOGLOBIN 14.3 g/dL (12.0-16.0); MEAN CELL VOLUME 85.7 fL (80-100); MEAN CORPUSCULAR HEMOGLOBIN 27.7 pg (25-34); MEAN CORPUSCULAR HGB CONC 32.3 g/dl (32-36); MEAN PLATELET VOLUME 9.5 fL (7.4-10.4); NUCLEATED RED BLOOD CELL ABS 0.45 K/uL (0-0); PLATELET COUNT 499 K/uL (130-400); RED CELL DISTRIBUTION WIDTH CV 18.5 % (11.5-14.5); RED CELL DISTRIBUTION WIDTH SD 57.3 fL (36.4-46.3); WHITE BLOOD COUNT 24.03 K/uL (4.8-10.8)
--- NOTE | 2017-05-21 16:13 | DIAGNOSTIC IMAGING REPORT ---
CHEST ONE VIEW PORTABLE CLINICAL HISTORY: Pt c/o SOB dyspnea COMPARISON STUDY: 04/22/2017 FINDINGS: The bones soft tissues and hemidiaphragms are normal. The cardiomediastinal silhouette is normal. The lungs are clear. The pulmonary vasculature is normal. IMPRESSION: Negative chest. The above report was generated using voice recognition software. It may contain grammatical, syntax or spelling errors. Electronically signed by: Matias Ruth M.D. 05/21/2017 4:11 PM Dictated Date/Time: 05/21/2017 4:11 PM
[2017-05-21] MEDS ORDERED: AMLO-114 PO (16:14)
[2017-05-21] MEDS ORDERED: INSU1INJ33 PO (16:14)
[2017-05-21] MEDS ORDERED: VANC1CAP3 PO (16:14)
[2017-05-21] MEDS ORDERED: SODI650T8 PO (16:14)
[2017-05-21 16:27] LABS: INFLUENZA B ANTIGEN Neg for Influ B (NEG)
[2017-05-21 16:39] LABS: ALBUMIN 4.6 gm/dl (3.4-5.0); ALKALINE PHOSPHATASE 102 U/L (45-117); ALT/SGPT 18 U/L (12-78); BLOOD UREA NITROGEN 42 mg/dl (7-18); CALCIUM 9.3 mg/dl (8.5-10.1); CKMB 1.9 ng/ml (0.5-3.6); CREATININE 3.82 mg/dl (0.60-1.20); GLUCOSE 112 mg/dl (70-99); SODIUM 125 mmol/L (136-145); TOTAL PROTEIN 9.8 gm/dl (6.4-8.2)
[2017-05-21 16:42] LABS: CARBON DIOXIDE 5 mmol/L (21-32)
[2017-05-21 16:47] LABS: BASO % 0.4 %; BASO ABS # 0.09 K/uL (0-0.2); EOS % 0.5 %; EOS ABS # 0.13 K/uL (0-0.5); IG# 2.29 K/uL (0.00-0.02); LYMPH % 13.4 %; LYMPH ABS # 3.21 K/uL (1.2-3.4); MONO ABS # 1.19 K/uL (0.11-0.59); NEUT % 71.2 %; NEUT ABS # 17.12 K/uL (1.4-6.5)
[2017-05-21] MEDS ORDERED: CEFTRIAXONE SOD INJ 1 GM ADDVIAL IV STA (16:51)
[2017-05-21] MEDS ORDERED: SODIUM CHLORIDE 0.9% 500ML 500 ML IV STA (16:51)
[2017-05-21] MEDS ORDERED: VANCOMYCIN 1GM/270ML NSS IV STA (16:57)
[2017-05-21] MEDS ORDERED: SODIUM CHLORIDE 0.9% 1000ML 1,000 ML IV SCH (18:06)
[2017-05-21] MEDS ORDERED: ICU PROTOCOL FOR HYPERGLYCEMIA PRN (18:15)
[2017-05-21] MEDS ORDERED: ENOXAPARIN 40 MG/0.4 ML SYR SQ SCH (18:15)
[2017-05-21] MEDS ORDERED: VANCOMYCIN CONSULT ACTIVE PRN (18:15)
[2017-05-21] MEDS ORDERED: PIPERACILL/TAZOBAC CONSULT ACTIVE PRN (18:15)
[2017-05-21] MEDS ORDERED: ACETAMINOPHEN 325 MG TAB PO PRN (18:15)
[2017-05-21] MEDS ORDERED: LABETALOL HCL IV 5 MG/ML 20ML IV SCH (20:15)
[2017-05-21] MEDS ORDERED: LABETALOL HCL 5 MG/ML 20 ML VIAL - CCU EMERGENCY DRUG ONE (20:57)
[2017-05-21] MEDS: DULOXETINE HCL 60 MG CAP PO SCH (21:00)
[2017-05-21] MEDS: PREGABALIN 50 MG CAP PO SCH (21:00)
[2017-05-21] MEDS ORDERED: PROPRANOLOL HCL 120 MG PO SCH (21:00)
[2017-05-21] MEDS ORDERED: VANCOMYCIN HCL 250 MG/5 ML SOLN PO SCH (21:00)
[2017-05-21] MEDS ORDERED: SODIUM BICARBONATE 650 MG TAB PO SCH (21:00)
[2017-05-21] MEDS ORDERED: LORAZEPAM 2 MG/ML 1 ML VIAL ONE (21:10)
[2017-05-21] MEDS ORDERED: LORAZEPAM 2 MG/ML 1 ML VIAL IV STA (21:11)
[2017-05-21] MEDS ORDERED: DexMEDEtomidine HCL IV 200 MCG in SODIUM CHLORIDE 0.9% 50ML 48 ML IV PRN (21:11)
[2017-05-21 21:24] LABS: HEMATOCRIT 38.3 % (37-47); HEMOGLOBIN 12.2 g/dL (12.0-16.0); MEAN CELL VOLUME 85.7 fL (80-100); MEAN CORPUSCULAR HEMOGLOBIN 27.3 pg (25-34); MEAN PLATELET VOLUME 8.9 fL (7.4-10.4); NUCLEATED RED BLOOD CELL ABS 0.85 K/uL (0-0); PLATELET COUNT 387 K/uL (130-400); RED CELL DISTRIBUTION WIDTH CV 18.2 % (11.5-14.5); RED CELL DISTRIBUTION WIDTH SD 56.5 fL (36.4-46.3); WHITE BLOOD COUNT 29.36 K/uL (4.8-10.8)
--- NOTE | 2017-05-21 21:29 | DIAGNOSTIC IMAGING REPORT ---
CHEST ONE VIEW PORTABLE CLINICAL HISTORY: S/p left IJ TLC tube position COMPARISON STUDY: 05/21/2017 FINDINGS: Central catheter placed in the superior vena cava. No evidence pneumothorax. Lungs remain clear. Diaphragms smooth. IMPRESSION: Central catheter placed in the superior vena cava. No pneumothorax. The above report was generated using voice recognition software. It may contain grammatical, syntax or spelling errors. Electronically signed by: Matias Ruth M.D. 05/21/2017 9:28 PM Dictated Date/Time: 05/21/2017 9:27 PM
[2017-05-21] MEDS ORDERED: VANCOMYCIN INJ 1,000 MG in SODIUM CHLORIDE 0.9% 250ML 250 ML IV SCH (21:30)
[2017-05-21] MEDS ORDERED: PHARMACY GLYCEMIC MGMT CONSULT SCH (21:37)
--- NOTE | 2017-05-21 21:44 | History and Physical ---
History & Physical Date & Time of Service: May 21, 2017 at 21:22 Chief Complaint: Acidosis; Sepsis Primary Care Physician: Wiliam Garsia M.D. History of Present Illness Source: patient, family, clinic records, hospital records This is a 42 year old female with a PMH of type 1 DM, HTN, C. diff colitis - was recently hospitalized here in [facility] in April 2017 with severe metabolic acidosis, DKA, septic shock, requiring an ICU admission, temporary trach, dialysis x1. She was discharged after being treated and was told to stay compliant with her diabetic medications. She tells me she has been compliant, but presents here due to dizziness, shakiness, weakness. She presented here and noted to have significant white count elevation, she is dehydrated with acute kidney injury and noted to have a drop in bicarb with an elevated anion gap. Patient was seen by nephrology at the end of April and had normal labwork then ; including her bicarb; she has been taking bicarb supplementation. Currently, she is talking, and tells me she is not short of breath, but seems to be using accessory muscles to breath. Denies chest pain. Past Medical/Surgical History Medical Problems: (1) Acute kidney injury Status: Resolved (2) Clostridium difficile colitis Status: Resolved (3) Colostomy Status: Resolved (4) DKA (diabetic ketoacidoses) Status: Resolved (5) Lumbar Disc Displacement Status: Chronic (6) Pneumonia Status: Chronic (7) Sepsis Status: Resolved Family History Diabetes mellitus Heart disease Social History Smoking Status: Current Every Day Smoker Drug Use: none Marital Status: Occupational Status: employed Immunizations History of Influenza Vaccine: Unknown History of Tetanus Vaccine?: Unknown History of Pneumococcal: Unknown History of Hepatitis B Vaccine: Unknown Allergies Coded Allergies: BEE STING (Verified Allergy, Intermediate, RED, SHORT OF BREATH, 04/17/17) Home Medications Scheduled Amlodipine (Norvasc), 10 MG PO DAILY Atorvastatin (Lipitor), 10 MG PO DAILY Duloxetine Hcl (Cymbalta), 60 MG PO QPM Esomeprazole Magnesium (Nexium), 40 MG PO QAM Fenofibrate (Tricor), 160 MG PO DAILY Insulin Aspart (Novolog Flexpen), 20 UNITS SC TIDM Insulin Degludec (Tresiba Flextouch), 110 UNITS PO DAILY Lisinopril (Lisinopril), 10 MG PO DAILY Pregabalin (Lyrica), 50 MG PO QPM Propranolol Hcl (Propranolol Hcl Er), 120 MG PO BID Sodium Bicarbonate (Sodium Bicarbonate), 1,300 MG PO TID Vancomycin Hcl (Vancomycin), 250 MG PO TID Scheduled PRN Albuterol Hfa (Ventolin Hfa), 2 PUFFS INH Q4H PRN for SOB/Wheezing Review of Systems Constitutional: + weakness, + fatigue, No fever, No chills, No weight loss Respiratory: No cough, No sputum, No wheezing, No shortness of breath, No dyspnea on exertion, No dyspnea at rest, No hemoptysis Cardiovascular: No chest pain, No edema, No palpitations Abdomen: + nausea, No pain, No vomiting, No diarrhea, No constipation, No GI bleeding Musculoskeletal: No joint pain, No muscle pain Genitourinary - Female: No dysuria, No urinary frequency, No urinary urgency, No urinary incontinence, No urinary retention, No hematuria Neurologic: + weakness, + vertigo, + balance problems, No numbness/tingling Psychiatric: No depression symptoms, No anxiety, No insomnia Hematologic / Lymphatic: No abnormal bleeding/bruising Integumentary: No rash Allergic / Immunologic: No environmental allergies, No seasonal allergies Physical Exam Vital Signs Date Time Temp Pulse Resp B/P (MAP) Pulse Ox O2 Delivery O2 Flow Rate FiO2 05/21/17 21:02 103 99 28 05/21/17 19:30 36.6 101 22 220/114 05/21/17 18:01 97 162/106 100 Room Air 05/21/17 17:01 88 20 200/90 100 Room Air 05/21/17 16:45 90 20 175/108 98 Room Air 05/21/17 16:10 82 05/21/17 15:59 98 Room Air 05/21/17 15:59 98 Room Air 05/21/17 15:39 77 22 139/85 100 79 159/85 89 142/98 05/21/17 14:34 72 20 109/78 100 Room Air General Appearance: + mild distress (secondary to breathing) Head: normocephalic, atraumatic Eyes: normal inspection ENT: hearing grossly normal Neck: supple Respiratory/Chest: + respiratory distress, + decreased breath sounds, + accessory muscle use Cardiovascular: no edema, no murmur, + tachycardia Abdomen/GI: normal bowel sounds, non tender, soft Extremities/Musculoskelatal: normal inspection, no calf tenderness, normal capillary refill, no pedal edema, normal range of motion Neurologic/Psych: no motor/sensory deficits, alert, normal mood/affect, oriented x 3 Skin: normal color Lymphatic: no adenopathy Diagnostics Laboratory Results Results Past 24 Hours Test 05/21/17 15:35 05/21/17 15:44 05/21/17 15:50 05/21/17 17:37 Range/Units White Blood Count 24.03 4.8-10.8 K/uL Red Blood Count 5.17 4.2-5.4 M/uL Hemoglobin 14.3 12.0-16.0 g/dL Hematocrit 44.3 37-47 % Mean Corpuscular Volume 85.7 80-100 fL Mean Corpuscular Hemoglobin 27.7 25-34 pg Mean Corpuscular Hemoglobin Concent 32.3 32-36 g/dl Platelet Count 499 130-400 K/uL Mean Platelet Volume 9.5 7.4-10.4 fL Neutrophils (%) (Auto) 71.2 % Lymphocytes (%) (Auto) 13.4 % Monocytes (%) (Auto) 5.0 % Eosinophils (%) (Auto) 0.5 % Basophils (%) (Auto) 0.4 % Neutrophils # (Auto) 17.12 1.4-6.5 K/uL Lymphocytes # (Auto) 3.21 1.2-3.4 K/uL Monocytes # (Auto) 1.19 0.11-0.59 K/uL Eosinophils # (Auto) 0.13 0-0.5 K/uL Basophils # (Auto) 0.09 0-0.2 K/uL RDW Standard Deviation 57.3 36.4-46.3 fL RDW Coefficient of Variation 18.5 11.5-14.5 % Immature Granulocyte % (Auto) 9.5 % Immature Granulocyte # (Auto) 2.29 0.00-0.02 K/uL Nucleated RBC Absolute Count (auto) 0.45 0-0 K/uL Nucleated Red Blood Cells % 1.9 % Polychromasia 1+ Sodium Level 125 136-145 mmol/L Potassium Level 3.5-5.1 mmol/L Chloride Level 104 98-107 mmol/L Carbon Dioxide Level 5 21-32 mmol/L Anion Gap 16.0 3-11 mmol/L Blood Urea Nitrogen 42 7-18 mg/dl Creatinine 3.82 0.60-1.20 mg/dl Est Creatinine Clear Calc Drug Dose 20.5 ml/min Estimated GFR () 15.7 Estimated GFR (Non- 13.5 BUN/Creatinine Ratio 11.1 10-20 Random Glucose 112 70-99 mg/dl Calcium Level 9.3 8.5-10.1 mg/dl Total Bilirubin 0.6 0.2-1 mg/dl Direct Bilirubin 0-0.2 mg/dl Aspartate Amino Transf (AST/SGOT) 15-37 U/L Alanine Aminotransferase (ALT/SGPT) 18 12-78 U/L Alkaline Phosphatase 102 45-117 U/L Total Creatine Kinase 26-192 U/L Creatine Kinase MB 1.9 0.5-3.6 ng/ml Creatine Kinase MB Ratio 0-3.0 Troponin I < 0.015 0-0.045 ng/ml Total Protein 9.8 6.4-8.2 gm/dl Albumin 4.6 3.4-5.0 gm/dl Beta-Hydroxybutyric Acid 1.94 0.2-2.81 mg/dL Thyroid Stimulating Hormone (TSH) 0.932 0.300-4.500 uIu/ml Urine Color YELLOW Urine Appearance CLOUDY CLEAR Urine pH 5.0 4.5-7.5 Urine Specific [employer] 1.027 1.000-1.030 Urine Protein 3+ NEG Urine Glucose (UA) NEG NEG Urine Ketones NEG NEG Urine Occult Blood NEG NEG Urine Nitrite NEG NEG Urine Bilirubin NEG NEG Urine Urobilinogen NEG NEG Urine Leukocyte Esterase SMALL NEG Urine WBC (Auto) 10-30 0-5 /hpf Urine RBC (Auto) 0-4 0-4 /hpf Urine Hyaline Casts (Auto) 1-5 0-5 /lpf Urine Epithelial Cells (Auto) >30 0-5 /lpf Urine Bacteria (Auto) 1+ NEG Influenza Type A Antigen Neg for Influ A NEG Influenza Type B Antigen Neg for Influ B NEG Bedside Lactic Acid Venous < 0.30 0.90-1.70 mmol/L Test 05/21/17 17:44 05/21/17 18:05 05/21/17 21:16 Range/Units Potassium Level 3.5-5.1 mmol/L Direct Bilirubin 0-0.2 mg/dl Aspartate Amino Transf (AST/SGOT) 15-37 U/L Total Creatine Kinase 26-192 U/L Microbiology Results 05/21/17 Blood Culture, Received Pending 05/21/17 Blood Culture, Received Pending 05/21/17 MRSA DNA Surveillance Screen, Received Pending 05/21/17 Urine Culture, Received Pending Diagnostic Radiology CHEST ONE VIEW PORTABLE CLINICAL HISTORY: Pt c/o SOB dyspnea COMPARISON STUDY: 04/22/2017 FINDINGS: The bones soft tissues and hemidiaphragms are normal. The cardiomediastinal silhouette is normal. The lungs are clear. The pulmonary vasculature is normal. IMPRESSION: Negative chest. Impression Assessment and Plan This is a 42 year old female with a PMH of type 1 DM, HTN, C. diff colitis - was recently hospitalized here in [facility] in April 2017 with severe metabolic acidosis, DKA, septic shock, requiring an ICU admission, temporary trach, dialysis x1 - presents with similar symptoms Sepsis unknown cause patient with elevated white blood cell count possibly related to C. diff infection vs. hidradenitis suppurativa will start Vanco + Zosyn for now panculture oral vanco for C. Diff admit to ICU, utility driver consulted ID consulted Severe Metabolic Acidosis bicarb down to 5 on 05/10, normal bicarb noted taking sodium bicarb supplements consult nephrology admitted to ICU, IV bicarb as per utility driver Hypertensive Emergency blood pressure >200/100 started on labetalol drip as per utility driver Acute Kidney Injury superimposed on CKD stage IV patient with creatinine at 3.8 she is clinically severely dehydrated states she felt nauseous and had vomiting episodes, which is likely the cause given IVFs, two more liters of fluid in the ICU monitor creat and adjust accordingly nephrology consulted Type 1 DM would continue basal/bolus appreciate utility driver and pharmacy glycemic control consultations will defer to them regarding this, as patient has had multiple episodes of DKA in the past DVT ppx Lovenox FULL CODE Advanced Directives Existing Living Will: No Existing Power of Pickling Grader: No VTE Prophylaxis VTE Risk Assessment Done? Y/N: Yes Risk Level: Moderate
[2017-05-21] MEDS ORDERED: PIPERACILL/TAZOBAC IV 3.375 GM in DEXTROSE 5% 100ML IV ONE (21:45)
[2017-05-21] MEDS ORDERED: SODIUM BICARB 8.4% INJ 50 MEQ/50 ML SYR IV ONE ×3 (21:46→22:24)
[2017-05-21 22:09] LABS: ALBUMIN 3.8 gm/dl (3.4-5.0); ALKALINE PHOSPHATASE 85 U/L (45-117); ALT/SGPT 13 U/L (12-78); AST/SGOT 14 U/L (15-37); BLOOD UREA NITROGEN 49 mg/dl (7-18); CARBON DIOXIDE < 5 mmol/L (21-32); CREATININE 3.48 mg/dl (0.60-1.20); GLUCOSE 111 mg/dl (70-99); PHOSPHORUS 4.6 mg/dl (2.5-4.9); POTASSIUM 6.4 mmol/L (3.5-5.1); SODIUM 131 mmol/L (136-145); TOTAL PROTEIN 7.6 gm/dl (6.4-8.2)
[2017-05-21 22:10] LABS: CALCIUM 7.9 mg/dl (8.5-10.1)
--- NOTE | 2017-05-21 22:11 | Critical Care Consultation ---
Critical Care Consultation Date of Consultation: May 21, 2017. Attending Physician: Nathaly Francisco M.D. Reason for Consultation: Severe sepsis, acute kidney injury History of Present Illness 42 year old female with h/o DM1, h/o staph bacteremia, h/o Cdiff colitis s/p colectomy (trached for a while), well known to us from an ICU stay a month ago returned to ED c/o left breast pain starting two days ago, vomiting, feeling weak, losing her balance, feeling dizzy. She was compliant with her insulin regimen. A month ago she was in the ICU for DKA that resolved quickly, but also had significant OK, requiring one session of HD, was treated for septic shock but no source was found. She tested positive for Cdiff, but we were not too concerned about it being a real pathology. She was treated for sepsis, was briefly in shock, procalcitonin was 15, but no source was identified. Was dialyzed once with remarkable improvement. She had extensive cat scratches on her hands and her right breast has been hurting. This is an early symptom and now warning sign for her. Years ago she actually had infected axillary lesions, had suppurative hydradenitis, which required surgical intervention, had staph bacteremia In the ICU her mental status rapidly deteriorated, went from talking to me in full sentences, to agitated delirium in a matter of 45 minutes. I placed left IJ TLC for poor IV access Family History Diabetes mellitus Heart disease Social History Smoking Status: Current Every Day Smoker Drug Use: none Marital Status: Housing Status: lives with family Occupation Status: employed Allergies Coded Allergies: BEE STING (Verified Allergy, Intermediate, RED, SHORT OF BREATH, 04/17/17) Home Medications Scheduled Amlodipine (Norvasc), 10 MG PO DAILY Atorvastatin (Lipitor), 10 MG PO DAILY Duloxetine Hcl (Cymbalta), 60 MG PO QPM Esomeprazole Magnesium (Nexium), 40 MG PO QAM Fenofibrate (Tricor), 160 MG PO DAILY Insulin Aspart (Novolog Flexpen), 20 UNITS SC TIDM Insulin Degludec (Tresiba Flextouch), 110 UNITS PO DAILY Lisinopril (Lisinopril), 10 MG PO DAILY Pregabalin (Lyrica), 50 MG PO QPM Propranolol Hcl (Propranolol Hcl Er), 120 MG PO BID Sodium Bicarbonate (Sodium Bicarbonate), 1,300 MG PO TID Vancomycin Hcl (Vancomycin), 250 MG PO TID Scheduled PRN Albuterol Hfa (Ventolin Hfa), 2 PUFFS INH Q4H PRN for SOB/Wheezing Current Inpatient Medications Current Inpatient Medications Medications (Trade) Dose Ordered Sig/Yudy Route Start Time Stop Time Status Last Admin Dose Admin Enoxaparin Sodium (Lovenox Inj) 40 mg Q24H SQ 05/21/17 18:15 06/20/17 18:14 UNV Sodium Chloride 1,000 ml @ 125 mls/hr Q8H IV 05/21/17 18:06 06/20/17 18:05 UNV Acetaminophen (Tylenol Tab) 650 mg Q4H PRN PO 05/21/17 18:15 06/20/17 18:14 UNV Miscellaneous Information (Icu Protocol For Hyperglycemia) 1 ea PRN PRN N/A 05/21/17 18:15 05/23/17 18:14 UNV Vancomycin HCl 1000 mg/Sodium Chloride 270 ml @ 125 mls/hr Q12 IV 05/21/17 21:00 05/23/17 20:59 UNV Miscellaneous Information (Consult) 1 ea UD PRN N/A 05/21/17 18:15 06/20/17 18:14 UNV Piperacillin Sod/ Tazobactam Sod 3.375 gm/Dextrose 115 ml @ 28.75 mls/ hr Q8 IV 05/21/17 22:00 05/23/17 21:59 UNV Miscellaneous Information (Consult) 1 ea UD PRN N/A 05/21/17 18:15 06/20/17 18:14 UNV Atorvastatin Calcium (Lipitor Tab) 10 mg DAILY PO 05/22/17 09:00 06/21/17 08:59 UNV Duloxetine HCl (Cymbalta Cap) 60 mg QPM PO 05/21/17 21:00 06/20/17 20:59 UNV Lisinopril (Zestril Tab) 10 mg DAILY PO 05/22/17 09:00 06/21/17 08:59 UNV Pregabalin (Lyrica Cap) 50 mg QPM PO 05/21/17 21:00 06/20/17 20:59 UNV Sodium Bicarbonate (Sodium Bicarbonate Tab) 1,300 mg TID PO 05/21/17 21:00 06/20/17 20:59 UNV Vancomycin HCl (Vancomycin Oral Soln) 250 mg TID PO 05/21/17 21:00 06/04/17 20:59 UNV Non-Formulary Medication (Esomeprazole Magnesium (Nexium)) 40 mg QAM PO 05/22/17 09:00 06/21/17 08:59 UNV Non-Formulary Medication (Fenofibrate (Tricor)) 160 mg DAILY PO 05/22/17 09:00 06/21/17 08:59 UNV Non-Formulary Medication (Propranolol Hcl (Propranolol Hcl Er)) 120 mg BID PO 05/21/17 21:00 06/20/17 20:59 UNV Review of Systems Per HPI, all other systems reviewed and negative Physical Exam Date Time Temp Pulse Resp B/P (MAP) Pulse Ox O2 Delivery O2 Flow Rate FiO2 05/21/17 19:30 36.6 101 22 220/114 05/21/17 18:01 97 162/106 100 Room Air 05/21/17 17:01 88 20 200/90 100 Room Air 05/21/17 16:45 90 20 175/108 98 Room Air 05/21/17 16:10 82 05/21/17 15:59 98 Room Air 05/21/17 15:59 98 Room Air 05/21/17 15:39 77 22 139/85 100 79 159/85 89 142/98 05/21/17 14:34 72 20 109/78 100 Room Air Breast exam: No evidence of cellulitis, non-tender, no crepitus General Appearance: other (Agitated) Head: normocephalic Eyes: PERRLA ENT: other (Dry oral mucosa) Neck: no nuchal rigidity Respiratory: clear to auscultation, other (Hyperventilating) Cardiovasular: regular rate/rhythm, normal S1S2, no M/G/R Abdomen: non tender, no rebound, other (old laparotomy scar) Back: normal inspection, no CVA tenderness Upper Extremities: no edema, other (healing scratch lesions. Old scars in both axilla, no wounds, no abscesses, no tenderness) Lower Extremities: no edema Neuro: alert, normal motor exam, other (agitated now, not following commands) Laboratory Results Last 24 Hours Test 05/21/17 15:35 05/21/17 15:44 05/21/17 15:50 05/21/17 17:37 White Blood Count 24.03 K/uL Red Blood Count 5.17 M/uL Hemoglobin 14.3 g/dL Hematocrit 44.3 % Mean Corpuscular Volume 85.7 fL Mean Corpuscular Hemoglobin 27.7 pg Mean Corpuscular Hemoglobin Concent 32.3 g/dl Platelet Count 499 K/uL Mean Platelet Volume 9.5 fL Neutrophils (%) (Auto) 71.2 % Lymphocytes (%) (Auto) 13.4 % Monocytes (%) (Auto) 5.0 % Eosinophils (%) (Auto) 0.5 % Basophils (%) (Auto) 0.4 % Neutrophils # (Auto) 17.12 K/uL Lymphocytes # (Auto) 3.21 K/uL Monocytes # (Auto) 1.19 K/uL Eosinophils # (Auto) 0.13 K/uL Basophils # (Auto) 0.09 K/uL RDW Standard Deviation 57.3 fL RDW Coefficient of Variation 18.5 % Immature Granulocyte % (Auto) 9.5 % Immature Granulocyte # (Auto) 2.29 K/uL Nucleated RBC Absolute Count (auto) 0.45 K/uL Nucleated Red Blood Cells % 1.9 % Polychromasia 1+ Sodium Level 125 mmol/L Potassium Level mmol/L Chloride Level 104 mmol/L Carbon Dioxide Level 5 mmol/L Anion Gap 16.0 mmol/L Blood Urea Nitrogen 42 mg/dl Creatinine 3.82 mg/dl Est Creatinine Clear Calc Drug Dose 20.5 ml/min Estimated GFR () 15.7 Estimated GFR (Non- 13.5 BUN/Creatinine Ratio 11.1 Random Glucose 112 mg/dl Calcium Level 9.3 mg/dl Total Bilirubin 0.6 mg/dl Direct Bilirubin mg/dl Aspartate Amino Transf (AST/SGOT) U/L Alanine Aminotransferase (ALT/SGPT) 18 U/L Alkaline Phosphatase 102 U/L Total Creatine Kinase U/L Creatine Kinase MB 1.9 ng/ml Creatine Kinase MB Ratio Troponin I < 0.015 ng/ml Total Protein 9.8 gm/dl Albumin 4.6 gm/dl Beta-Hydroxybutyric Acid 1.94 mg/dL Thyroid Stimulating Hormone (TSH) 0.932 uIu/ml Urine Color YELLOW Urine Appearance CLOUDY Urine pH 5.0 Urine Specific [place] 1.027 Urine Protein 3+ Urine Glucose (UA) NEG Urine Ketones NEG Urine Occult Blood NEG Urine Nitrite NEG Urine Bilirubin NEG Urine Urobilinogen NEG Urine Leukocyte Esterase SMALL Urine WBC (Auto) 10-30 /hpf Urine RBC (Auto) 0-4 /hpf Urine Hyaline Casts (Auto) 1-5 /lpf Urine Epithelial Cells (Auto) >30 /lpf Urine Bacteria (Auto) 1+ Influenza Type A Antigen Neg for Influ A Influenza Type B Antigen Neg for Influ B Bedside Lactic Acid Venous < 0.30 mmol/L Test 05/21/17 17:44 05/21/17 18:05 05/21/17 18:22 05/21/17 19:47 Potassium Level mmol/L Direct Bilirubin mg/dl Aspartate Amino Transf (AST/SGOT) U/L Total Creatine Kinase U/L Diagnostic Results CXR: TLC in SVC, no pneumothorax, clear lung cheney Assessment & Plan 42 year old female presents with progressing symptoms for two days, likely related to severe sepsis, not in shock yet. 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 Was intubated on last admission Renal/metabolic: AB.81/14/116 Severe metabolic acidosis. @ amps of biacrbonate IV push, start bicarbonate drip Nephrology consult May require hemodialysis ID: Broad spectrum Abx, Vanco and Zosyn Panculture Check procalcitonin ID consult. I did not find a source of infection in the axillary area Endo: No need for an insulin drip right now Pharmacy consult for glycemic control Metformin to be held. For the future, I would not discharge her on Metformin anymore, given her propensity to develop kidney failure GI: NPO May d/c PO vanco, she does not have colitis since she does not have a colon DVT prophylaxis: Lovenox 30 mg daily Critical care time spent with the patient, reviewing chart, discussing with consultants, excluding procedures, greater than 75 minutes
[2017-05-21 22:12] LABS: AST/SGOT 14 U/L (15-37); POTASSIUM 6.4 mmol/L (3.5-5.1)
[2017-05-21] MEDS ORDERED: GLUCOSE 40% GEL 15 GM TUBE PO PRN (22:15)
[2017-05-21] MEDS ORDERED: GLUCAGON FOR INJ 1 MG VIAL SQ PRN (22:15)
[2017-05-21] MEDS ORDERED: DEXTROSE 50% 50 ML SYR IV PRN (22:15)
[2017-05-21] MEDS ORDERED: PNEUMOCOCCAL POLYSACCHARIDES 25 MCG/0.5 ML VIAL/SYR IM. ONE (22:15)
[2017-05-21] MEDS ORDERED: GLUCOSE 10 TABS/TUBE PO PRN (22:15)
[2017-05-21] MEDS ORDERED: PNEUMOCOCCAL ADMINISTRATION CHARGE ONE (22:15)
[2017-05-21] MEDS ORDERED: PROPOFOL IV EMULSION 10 MG/ML 100 ML VIAL IV ONE (22:23)
[2017-05-21] MEDS ORDERED: RAPID SEQUENCE INDUCTION BAG ONE (22:23)
[2017-05-21 22:29] LABS: MEAN CORPUSCULAR HGB CONC 31.9 g/dl (32-36)
[2017-05-21] MEDS ORDERED: NOREPINEPHRINE BIT INJ 8 MG in DEXTROSE 5% 500ML 500 ML IV PRN ×2 (22:44→22:45)
[2017-05-21] MEDS ORDERED: PROPOFOL IV EMULSION 10 MG/ML 100 ML VIAL IV PRN (22:44)
--- NOTE | 2017-05-21 23:03 | DIAGNOSTIC IMAGING REPORT ---
CHEST ONE VIEW PORTABLE CLINICAL HISTORY: S/p intubation COMPARISON STUDY: 05/21/2017 FINDINGS: Endotracheal tube positioned 3.7 cm above the yumi. Nasogastric tube within the stomach. Central catheter in superior vena cava. Lungs are clear. IMPRESSION: Endotracheal tube positioned 3.7 cm above the yumi . The above report was generated using voice recognition software. It may contain grammatical, syntax or spelling errors. Electronically signed by: Matias Ruth M.D. 05/21/2017 11:01 PM Dictated Date/Time: 05/21/2017 11:00 PM
--- NOTE | 2017-05-21 23:50 | Nephrology Consultation ---
Nephrology Consultation Date of Consultation: May 21, 2017. Attending Physician: Dr Francisco Requesting Physician: Dr Vences Reason for Consultation: acidemia, ? need for urgent dialysis History of Present Illness 42 year old female admitted to ICU this evening w/ concern for sepsis after she developed L breast pain, then presyncopal sx culminating in a fall. PMH includes DM2 on low dose metformin, htn, tobacco abuse, multiple icu admissions for sepsis including from suppurative hidradenitis w/ severe metabolic derangements including need for dialysis last month. She has had axillary resections for hidradenitis in past. She is well known to the critical care service who request my input regarding need for acute dialysis this evening. Her ph on ABG from 2142 is 6.8 w/ bicarb <5, pC02 14. her initial K was hemolyzed but f/u labs show K 6.4 at 2115. Lactic acid is 0.2; BG is 111. Her presenting creatinine was 3.8, improved to 3.5 a few hours later. As at previous hospital evaluations, her ammonia is elevated, 117. She was discharged at her previous admission here about one month back w/ sCreat 2.2; had been running 1.8-2.2 prior to d/c. She is getting bicarb gtt and levophed; also has had multiple L of normal saline; also has had zosyn and vancomycin. She has made 1100 mL light clear urine since ICU arrival. Her medication list is possibly inaccurate this evening >> for example topamax is listed but this was stopped at hospital d/c and her states that she had been told not to take it; metformin not on the list but she did report taking that prior to acute encephalopathy/loss of consciousness. [facility] Her denies recent or remote hx of suicidal ideation or depression. He states that she has intermittent diarrhea but no recent severe/ acute illness limiting po intake for example. Past Medical/Surgical History Medical Problems: (1) Abdominal pain Status: Acute (2) Confusion Status: Acute (3) Constipation Status: Acute (4) Dehydration Status: Acute (5) Dehydration Status: Acute (6) Hyperammonemia Status: Acute (7) Pneumonia Status: Acute -DM2 on insulin/metformin, w/ multiple episodes of DKA -C diff colitis needing colectomy -MRSA bacteremia -severe/chronic suppurative hidradenitis > sepsis -02/2014 hospitalization with severe acidosis -2012 hospitalizations with VDRF, trach, C diff -active tobacco abuse -HTN -anxiety/depression -[facility] -admission here 04/2017 w/ DKA, C diff, and encephalopathy needed acute HD -lumbar Degenerative disc disease Family History Diabetes mellitus Heart disease Social History Smoking Status: Current Every Day Smoker Alcohol Use: none Drug Use: none Marital Status: Housing Status: lives with family Occupation Status: employed Allergies Coded Allergies: BEE STING (Verified Allergy, Intermediate, RED, SHORT OF BREATH, 04/17/17) Medications Current Inpatient Medications Medications (Trade) Dose Ordered Sig/Yudy Route Start Time Stop Time Status Last Admin Dose Admin Acetaminophen (Tylenol Tab) 650 mg Q4H PRN PO 05/21/17 18:15 06/20/17 18:14 Miscellaneous Information (Icu Protocol For Hyperglycemia) 1 ea PRN PRN N/A 05/21/17 18:15 05/23/17 18:14 Vancomycin HCl 1000 mg/Sodium Chloride 270 ml @ 125 mls/hr 2130 IV 05/21/17 21:30 05/21/17 23:59 Miscellaneous Information (Consult) 1 ea UD PRN N/A 05/21/17 18:15 06/20/17 18:14 Piperacillin Sod/ Tazobactam Sod 3.375 gm/Dextrose 115 ml @ 28.75 mls/ hr Q12@0600,1800 IV 05/22/17 06:00 05/24/17 05:59 Miscellaneous Information (Consult) 1 ea UD PRN N/A 05/21/17 18:15 06/20/17 18:14 Atorvastatin Calcium (Lipitor Tab) 10 mg DAILY PO 05/22/17 09:00 06/21/17 08:59 UNV Duloxetine HCl (Cymbalta Cap) 60 mg QPM PO 05/21/17 21:00 06/20/17 20:59 UNV Pregabalin (Lyrica Cap) 50 mg QPM PO 05/21/17 21:00 06/20/17 20:59 UNV Sodium Bicarbonate (Sodium Bicarbonate Tab) 1,300 mg TID PO 05/21/17 21:00 06/20/17 20:59 UNV Non-Formulary Medication (Esomeprazole Magnesium (Nexium)) 40 mg QAM PO 05/22/17 09:00 06/21/17 08:59 UNV Non-Formulary Medication (Fenofibrate (Tricor)) 160 mg DAILY PO 05/22/17 09:00 06/21/17 08:59 UNV Enoxaparin Sodium (Lovenox Inj) 30 mg Q24H SQ 05/22/17 18:15 06/20/17 18:14 UNV Dexmedetomidine HCl 200 mcg/ Sodium Chloride 50 ml @ 0 mls/hr Q0M PRN IV 05/21/17 21:11 05/25/17 21:10 Sodium Chloride 1,000 ml @ 999 mls/hr Q1H1M IV 05/21/17 21:15 05/21/17 23:15 Miscellaneous Information (Consult Glycemic Management Pharmacy) 1 ea UD N/A 05/21/17 21:37 06/20/17 21:36 Piperacillin Sod/ Tazobactam Sod 3.375 gm/Dextrose 115 ml @ 230 mls/hr NOW ONCE IV 05/21/17 21:45 05/21/17 22:14 Sodium Bicarbonate 150 meq/Dextrose 1,150 ml @ 150 mls/hr Q7H40M IV 05/21/17 21:45 06/20/17 21:44 Insulin Aspart (novoLOG ASPART) SLIDING SCALE Q6 SC 05/22/17 00:00 06/21/17 00:00 Glucose (Glucose 40% Gel) 15-30 GRAMS 15 GRAMS... UD PRN PO 05/21/17 22:15 06/20/17 22:14 Glucose (Glucose Chew Tab) 4-8 Tablets 4 Tabl... UD PRN PO 05/21/17 22:15 06/20/17 22:14 Dextrose (Dextrose 50% 50ML Syringe) 25-50ML OF 50% DW IV FOR... UD PRN IV 05/21/17 22:15 06/20/17 22:14 Glucagon (Glucagon Inj) 1 mg UD PRN SQ 05/21/17 22:15 06/20/17 22:14 Pneumococcal Polysaccharide Vaccine (Pneumovax-23 Inj) 25 mcg ONCE ONCE IM. 05/21/17 22:15 05/21/17 22:16 UNV Home Meds and Scripts Medications Dose Route/Sig Max Daily Dose Days Date Category Tresiba Flextouch (Insulin Degludec) 100 Unit/Ml Inj 110 Units PO DAILY 05/21/17 Reported Norvasc (Amlodipine Besylate) 10 Mg Tab 10 Mg PO DAILY 05/21/17 Reported Vancomycin (Vancomycin HCl) 250 Mg Cap 250 Mg PO TID 05/21/17 Reported Sodium Bicarbonate 650 Mg Tab 1,300 Mg PO TID 05/21/17 Reported Lisinopril 10 Mg Tab 10 Mg PO DAILY 30 04/26/17 Rx Novolog Flexpen (Insulin Aspart) 100 Units/Ml Inj 20 Units SC TIDM 04/17/17 Reported Ventolin Hfa (Albuterol) 200 Puffs/72050 Mcg Aers 2 Puffs INH Q4H PRN 04/17/17 Reported Lipitor (Atorvastatin Calcium) 10 Mg Tab 10 Mg PO DAILY 08/10/15 Reported Tricor (Fenofibrate) 160 Mg Tab 160 Mg PO DAILY 08/10/15 Reported Lyrica (Pregabalin) 50 Mg Cap 50 Mg PO QPM 12/08/14 Reported Propranolol Hcl Er (Propranolol Hcl) 120 Mg Cap 120 Mg PO BID 02/24/14 Reported Cymbalta (Duloxetine Hcl) 60 Mg Cap 60 Mg PO QPM 02/24/14 Reported Nexium (Esomeprazole Magnesium) 40 Mg Capcr 40 Mg PO QAM 02/24/14 Reported Review of Systems unable to obtain d/t clinical condition Physical Exam Date Time Temp Pulse Resp B/P (MAP) Pulse Ox O2 Delivery O2 Flow Rate FiO2 05/21/17 21:02 103 99 28 05/21/17 19:30 36.6 101 22 220/114 05/21/17 18:01 97 162/106 100 Room Air 05/21/17 17:01 88 20 200/90 100 Room Air 05/21/17 16:45 90 20 175/108 98 Room Air 05/21/17 16:10 82 05/21/17 15:59 98 Room Air 05/21/17 15:59 98 Room Air 05/21/17 15:39 77 22 139/85 100 79 159/85 89 142/98 05/21/17 14:34 72 20 109/78 100 Room Air 24-Hour Column 05/22/17 08:00 Intake Total 2600 ml Output Total 400 ml Balance 2200 ml General Appearance: WD/WN, + obese, + pertinent finding (intubated, sedated) Eyes: + pertinent finding (no scleral icterus) ENT: + pertinent finding (ETT) Neck: supple Respiratory/Chest: lungs clear Cardiovascular: no edema, + tachycardia (110s) Abdomen: normal bowel sounds, non tender, soft, + pertinent finding (damico w/ ample light yellow urine) Extremities: no pedal edema, normal capillary refill Neurologic/Psych: + pertinent finding (sedated) Skin: normal color, no jaundice, warm/dry, + pallor Diagnostics Last 24 Hours Test 05/21/17 15:35 05/21/17 15:44 05/21/17 15:50 05/21/17 17:37 White Blood Count 24.03 K/uL Red Blood Count 5.17 M/uL Hemoglobin 14.3 g/dL Hematocrit 44.3 % Mean Corpuscular Volume 85.7 fL Mean Corpuscular Hemoglobin 27.7 pg Mean Corpuscular Hemoglobin Concent 32.3 g/dl Platelet Count 499 K/uL Mean Platelet Volume 9.5 fL Neutrophils (%) (Auto) 71.2 % Lymphocytes (%) (Auto) 13.4 % Monocytes (%) (Auto) 5.0 % Eosinophils (%) (Auto) 0.5 % Basophils (%) (Auto) 0.4 % Neutrophils # (Auto) 17.12 K/uL Lymphocytes # (Auto) 3.21 K/uL Monocytes # (Auto) 1.19 K/uL Eosinophils # (Auto) 0.13 K/uL Basophils # (Auto) 0.09 K/uL RDW Standard Deviation 57.3 fL RDW Coefficient of Variation 18.5 % Immature Granulocyte % (Auto) 9.5 % Immature Granulocyte # (Auto) 2.29 K/uL Nucleated RBC Absolute Count (auto) 0.45 K/uL Nucleated Red Blood Cells % 1.9 % Polychromasia 1+ Sodium Level 125 mmol/L Potassium Level mmol/L Chloride Level 104 mmol/L Carbon Dioxide Level 5 mmol/L Anion Gap 16.0 mmol/L Blood Urea Nitrogen 42 mg/dl Creatinine 3.82 mg/dl Est Creatinine Clear Calc Drug Dose 20.5 ml/min Estimated GFR () 15.7 Estimated GFR (Non- 13.5 BUN/Creatinine Ratio 11.1 Random Glucose 112 mg/dl Calcium Level 9.3 mg/dl Total Bilirubin 0.6 mg/dl Direct Bilirubin mg/dl Aspartate Amino Transf (AST/SGOT) U/L Alanine Aminotransferase (ALT/SGPT) 18 U/L Alkaline Phosphatase 102 U/L Total Creatine Kinase U/L Creatine Kinase MB 1.9 ng/ml Creatine Kinase MB Ratio Troponin I < 0.015 ng/ml Total Protein 9.8 gm/dl Albumin 4.6 gm/dl Beta-Hydroxybutyric Acid 1.94 mg/dL Thyroid Stimulating Hormone (TSH) 0.932 uIu/ml Urine Color YELLOW Urine Appearance CLOUDY Urine pH 5.0 Urine Specific [place] 1.027 Urine Protein 3+ Urine Glucose (UA) NEG Urine Ketones NEG Urine Occult Blood NEG Urine Nitrite NEG Urine Bilirubin NEG Urine Urobilinogen NEG Urine Leukocyte Esterase SMALL Urine WBC (Auto) 10-30 /hpf Urine RBC (Auto) 0-4 /hpf Urine Hyaline Casts (Auto) 1-5 /lpf Urine Epithelial Cells (Auto) >30 /lpf Urine Bacteria (Auto) 1+ Influenza Type A Antigen Neg for Influ A Influenza Type B Antigen Neg for Influ B Bedside Lactic Acid Venous < 0.30 mmol/L Test 05/21/17 17:44 05/21/17 18:05 05/21/17 21:16 05/21/17 21:43 Potassium Level mmol/L 6.4 mmol/L Direct Bilirubin mg/dl < 0.1 mg/dl Aspartate Amino Transf (AST/SGOT) U/L 14 U/L Total Creatine Kinase U/L 70 U/L White Blood Count 29.36 K/uL Red Blood Count 4.47 M/uL Hemoglobin 12.2 g/dL Hematocrit 38.3 % Mean Corpuscular Volume 85.7 fL Mean Corpuscular Hemoglobin 27.3 pg Platelet Count 387 K/uL Mean Platelet Volume 8.9 fL RDW Standard Deviation 56.5 fL RDW Coefficient of Variation 18.2 % Nucleated RBC Absolute Count (auto) 0.85 K/uL Nucleated Red Blood Cells % 2.9 % Sodium Level 131 mmol/L Chloride Level 112 mmol/L Carbon Dioxide Level < 5 mmol/L Anion Gap 15.0 mmol/L Blood Urea Nitrogen 49 mg/dl Creatinine 3.48 mg/dl Est Creatinine Clear Calc Drug Dose 22.6 ml/min Estimated GFR () 17.6 Estimated GFR (Non- 15.2 BUN/Creatinine Ratio 14.0 Random Glucose 111 mg/dl Lactic Acid Level 0.2 mmol/L Calcium Level 7.9 mg/dl Phosphorus Level 4.6 mg/dl Magnesium Level 2.3 mg/dl Total Bilirubin 0.6 mg/dl Alanine Aminotransferase (ALT/SGPT) 13 U/L Alkaline Phosphatase 85 U/L Ammonia 116.8 umol/L Total Protein 7.6 gm/dl Albumin 3.8 gm/dl Globulin 3.8 gm/dl Albumin/Globulin Ratio 1.0 Procalcitonin 0.50 ng/ml Blood Gas Sample Site R Brachial Bedside Blood Gas pH (LAB) 6.81 Bedside Blood Gas pCO2 (LAB) 14 mmHg Bedside Blood Gas pO2 (LAB) 116 mmHg Bedside Blood Gas HCO3 (LAB) 2 meq/L Bedside Blood Gas Total CO2 < 5 mEq/l Bedside Blood Gas Base Excess (LAB) < -30.0 meq/L Bedside Blood Gas O2 Saturation 93.0 % Mickey Test Pass Oxygen Delivery Device Room Air Diagnostic Radiology: cxr > no acute CP process EKG: nsr Assessment & Plan 42 y/o F w/ DM, CKD 3, tobacco abuse, recurrent ICU admissions for sepsis and DKA now with second admission in a month to icu with severe mixed metabolic acidosis. Metabolic acidosis (combined anion and nonanion gap) w/ respiratory alkalosis in setting of normal lactate, hyperkalemia, hyperchloremia multifactorial> may relate in part to topamax (if taking)>> med list inconsistent w/ received history -check serum osm, EtOH levels, urine chloride/K/Na, ASA, serum ketones -recommend emergent hemodialysis this evening >> consent on chart -continue bicarb gtt; in lieu of NS consider normosol if further boluses needed -continue sepsis eval though she has in past behaved clinically like intoxication than sepsis Altered mental status Follow ammonia levels -tox screen if not already done -consider consultation w/ poison control for potential element of topamax overdose here; topamax level ordered HTN/ labile blood pressures >> on pressor, high rate bicarb gtt Hyponatremia, hyperkalemia, hyperchloremia >> treat as above Acute on chronic renal failure stage 3 3+ dipstick proteinuria, no infection, no blood; not oliguric. in the setting of labile blood pressures CK is wnl; creatinine improving w/ hydration -high risk for ESRD Appreciate consult; will follow with you.
--- NOTE | 2017-05-21 23:57 | Procedure Note ---
Procedure Note Procedure Date May 21, 2017. Procedure Description Procedure Name: Left IJ triple-lumen catheter insertion Central Line Procedure time out: side/site verified Consent obtained: emergent consent implied Performed by: attending Indications: poor venous access, central drug admin. Prep: chlorhexadine prep, sterile drape, sterile procedures used Anesthesia: lidocaine 1% without epi Volume anesthetic (ml's): 5 Central line lumen: triple Central line location: internal jugular (L) Additional details: percutaneous placement, ultrasound guidance, Selinger technique used, line sutured, good blood return CXR: appropriate position, no pneumothorax Complications: none Patient tolerated procedure: well Post-procedure vital signs: reviewed and stable
[2017-05-22] VITALS (61 sets, daily range): BP systolic 83–170; BP diastolic 43–77; PULSE 89–134; TEMP 36.4–37.5; O2SAT 99–100; Ht 167.6 cm; Wt 86.4 kg
--- NOTE | 2017-05-22 00:01 | Procedure Note ---
Procedure Note Procedure Date May 21, 2017. Procedure Description Procedure Name: Endotracheal intubation Consent obtained: emergent consent implied Performed by: attending Indications: therapeutic Contraindications: none Description: Indication: Altered mental status, severe respiratory distress Patient pre-oxygenated with 100% O2 Place supine Sedation: Propofol Using the GlideScope, I intubated the patient with ease from the first try. Good equal breath sounds Positive change on color capnometry CXR reviewed, appropriate position Patient immediately hyperventilated to maintain the hypocapnia, her pH being 6.8 She received 4 amps of sodium bicarbonate right before the intubation Complications: none Patient tolerated procedure: well Post-procedure vital signs: reviewed and stable
[2017-05-22] MEDS: SODIUM CHLORIDE 0.9% 1000ML 1,000 ML IV SCH ×2 (00:02→00:34)
--- NOTE | 2017-05-22 00:03 | Procedure Note ---
Procedure Note Procedure Date May 21, 2017. Procedure Description Procedure Name: Right femoral double lumen hemodialysis catheter Central Line Procedure time out: side/site verified, patient ID confirmed, sterile procedure used Consent obtained: emergent consent implied Performed by: attending Indications: other (Hemodialysis) Prep: chlorhexadine prep, sterile drape, sterile procedures used Anesthesia: lidocaine 1% without epi Volume anesthetic (ml's): 5 Central line lumen: double (20 cm) Central line location: femoral (R) Additional details: percutaneous placement, ultrasound guidance, Selinger technique used, line sutured, line not sutured, good blood return Complications: none Patient tolerated procedure: well Post-procedure vital signs: reviewed and stable
[2017-05-22] MEDS: SODIUM BICARBONATE 8.4% INJ 150 MEQ in DEXTROSE 5% 1000ML 1,000 ML IV SCH ×3 (00:04→17:33)
--- NOTE | 2017-05-22 00:04 | Procedure Note ---
Procedure Note Procedure Date May 22, 2017. Procedure Description Procedure Name: Left axillary a-line Procedure time out: side/site verified, patient ID confirmed, correct procedure Consent obtained: emergent consent implied Performed by: attending Indications: diagnostic Contraindications: none Description: The left axilla was cleaned with chlorhexidine with a wide area of coverage. The axilla and the patient were covered with a fenestrated sterile drape. Under ultrasound guidance, the left axillary artery was identified. The skin and subcutaneous tissue over the axillary artery were infiltrated with 1% lidocaine. Under ultrasound guidance, the left axillary was penetrated by the needle and it was exchanged over a guidewire to a 20G arterial line catheter. The a-line was connected to the a-line tubing, the monitor showing arterial wave -forms. Line was secured to skin using a suture, and was covered with Biopatch and transparent adhesive dressing. No complications noted, no distal vascular compromise observed immediately Complications: none Patient tolerated procedure: well Post-procedure vital signs: reviewed and stable
[2017-05-22 00:40] LABS: HEMATOCRIT 31.9 % (37-47); HEMOGLOBIN 10.4 g/dL (12.0-16.0); MEAN CELL VOLUME 83.7 fL (80-100); MEAN CORPUSCULAR HEMOGLOBIN 27.3 pg (25-34); MEAN CORPUSCULAR HGB CONC 32.6 g/dl (32-36); NUCLEATED RED BLOOD CELL ABS 0.15 K/uL (0-0); PLATELET COUNT 253 K/uL (130-400); RED CELL DISTRIBUTION WIDTH CV 18.2 % (11.5-14.5); RED CELL DISTRIBUTION WIDTH SD 55.5 fL (36.4-46.3)
[2017-05-22 00:50] LABS: PTT PATIENT 30.3 SECONDS (21.0-31.0)
[2017-05-22] MEDS: INSULIN ASPART 100 UNITS/ML 3 ML PEN SC SCH ×6 (00:57→21:00)
[2017-05-22 01:09] LABS: CALCIUM 6.8 mg/dl (8.5-10.1); CREATININE 3.21 mg/dl (0.60-1.20); PHOSPHORUS 3.6 mg/dl (2.5-4.9); POTASSIUM 3.6 mmol/L (3.5-5.1)
[2017-05-22 01:13] LABS: BASO % 0.2 %; BASO ABS # 0.04 K/uL (0-0.2); EOS % 0.2 %; EOS ABS # 0.04 K/uL (0-0.5); IG# 1.37 K/uL (0.00-0.02); LYMPH % 5.6 %; LYMPH ABS # 1.01 K/uL (1.2-3.4); MONO % 4.4 %; MONO ABS # 0.78 K/uL (0.11-0.59); NEUT % 81.9 %; NEUT ABS # 14.66 K/uL (1.4-6.5)
[2017-05-22 02:28] LABS: CALCIUM 6.6 mg/dl (8.5-10.1); CREATININE 3.33 mg/dl (0.60-1.20); POTASSIUM 3.5 mmol/L (3.5-5.1)
[2017-05-22 04:22] LABS: CREATININE RANDOM URINE 29.1 mg/dl; POTASSIUM RANDOM URINE 29.2 mEq/L
[2017-05-22 05:14] LABS: HEMATOCRIT 28.5 % (37-47); HEMOGLOBIN 9.4 g/dL (12.0-16.0); MEAN CELL VOLUME 82.1 fL (80-100); MEAN CORPUSCULAR HEMOGLOBIN 27.1 pg (25-34); MEAN PLATELET VOLUME 8.7 fL (7.4-10.4); NUCLEATED RED BLOOD CELL ABS 0.14 K/uL (0-0); PLATELET COUNT 281 K/uL (130-400); RED CELL DISTRIBUTION WIDTH CV 18.3 % (11.5-14.5); RED CELL DISTRIBUTION WIDTH SD 54.4 fL (36.4-46.3); WHITE BLOOD COUNT 14.13 K/uL (4.8-10.8)
[2017-05-22 05:42] LABS: ALBUMIN 2.8 gm/dl (3.4-5.0); CALCIUM 6.7 mg/dl (8.5-10.1); CREATININE 2.24 mg/dl (0.60-1.20); PHOSPHORUS 2.6 mg/dl (2.5-4.9); POTASSIUM 2.7 mmol/L (3.5-5.1); TOTAL PROTEIN 5.6 gm/dl (6.4-8.2)
[2017-05-22] MEDS ORDERED: CALCIUM GLUCONATE 10% 1,000 MG in SODIUM CHLORIDE 0.9% 50ML 50 ML IV ONE (05:45)
[2017-05-22 05:51] LABS: BASO % 0.1 %; BASO ABS # 0.02 K/uL (0-0.2); EOS % 0.1 %; EOS ABS # 0.02 K/uL (0-0.5); IG# 0.58 K/uL (0.00-0.02); LYMPH ABS # 1.42 K/uL (1.2-3.4); MONO % 5.5 %; MONO ABS # 0.78 K/uL (0.11-0.59); NEUT % 80.2 %; NEUT ABS # 11.31 K/uL (1.4-6.5)
--- NOTE | 2017-05-22 05:55 | Nephrology Progress Note ---
Nephrology Progress Note Date of Service: May 22, 2017. Subjective 42 yo female with underlying ckd stage 4 with baseline creatinine of 2.2 who presented with significant acidosis and subsequently intubated and underwent dialysis treatment last night. on low dose pressor, bicarb drip, broad spectrum antibiotics. Objective Date Time Temp Pulse Resp B/P (MAP) Pulse Ox O2 Delivery O2 Flow Rate FiO2 05/22/17 04:30 36.9 98 116/49 (71) 05/22/17 04:15 100 92/45 05/22/17 04:01 36.5 100 22 100/48 (65) 100 05/22/17 04:00 35 05/22/17 04:00 100 100/51 05/22/17 04:00 100 Room Air 05/22/17 04:00 100 21 91/46 (61) 100 05/22/17 03:46 28 05/22/17 03:45 99 105/53 05/22/17 03:30 96 105/54 05/22/17 03:15 96 92/47 05/22/17 03:01 95 25 99/52 (68) 100 05/22/17 03:00 96 86/47 05/22/17 03:00 95 23 95/52 (66) 100 05/22/17 02:45 93 83/43 05/22/17 02:37 35 05/22/17 02:30 93 98/50 05/22/17 02:15 91 105/51 05/22/17 02:01 89 28 97/48 (64) 100 05/22/17 02:00 89 28 101/50 (67) 100 05/22/17 02:00 89 109/50 05/22/17 01:45 36.4 89 104/50 (68) 05/22/17 01:01 94 30 114/54 (74) 100 05/22/17 01:00 93 21 113/53 (73) 100 05/22/17 00:35 35 05/22/17 00:01 101 21 141/53 (82) 100 05/22/17 00:00 35 05/22/17 00:00 100 Room Air 05/22/17 00:00 36.9 101 23 133/67 (89) 100 05/21/17 23:59 101 16 132/64 (86) 100 05/21/17 23:01 103 30 144/78 (100) 100 05/21/17 23:00 103 30 100 05/21/17 22:36 103 22 93/49 (64) 100 05/21/17 22:35 50 05/21/17 22:35 35 05/21/17 22:32 105 17 92/49 (63) 100 05/21/17 22:29 104 15 131/71 (91) 100 05/21/17 22:26 106 33 160/75 (103) 100 05/21/17 22:23 106 25 140/91 (107) 100 05/21/17 22:00 106 23 100 05/21/17 21:02 103 99 28 05/21/17 21:01 104 21 222/135 (164) 91 05/21/17 21:00 106 24 99 05/21/17 20:01 102 21 240/176 (197) 100 05/21/17 20:00 36.8 103 19 100 05/21/17 20:00 100 Room Air 05/21/17 19:30 36.6 101 22 220/114 05/21/17 18:01 97 162/106 100 Room Air 05/21/17 17:01 88 20 200/90 100 Room Air 05/21/17 16:45 90 20 175/108 98 Room Air 05/21/17 16:10 82 05/21/17 15:59 98 Room Air 05/21/17 15:59 98 Room Air 05/21/17 15:39 77 22 139/85 100 79 159/85 89 142/98 05/21/17 14:34 72 20 109/78 100 Room Air Physical Exam: General-awakens, sedated on vent Eyes-no scleral icterus ENT-mmm/intubated Neck-supple Lungs-cta Heart-rrr Abdomen-bs+ s/nt/nd Extremities-no c/c/e Neuro-sedated Current Inpatient Medications Medications (Trade) Dose Ordered Sig/Yudy Route Start Time Stop Time Status Last Admin Dose Admin Acetaminophen (Tylenol Tab) 650 mg Q4H PRN PO 05/21/17 18:15 06/20/17 18:14 Miscellaneous Information (Icu Protocol For Hyperglycemia) 1 ea PRN PRN N/A 05/21/17 18:15 05/23/17 18:14 Miscellaneous Information (Consult) 1 ea UD PRN N/A 05/21/17 18:15 06/20/17 18:14 Piperacillin Sod/ Tazobactam Sod 3.375 gm/Dextrose 115 ml @ 28.75 mls/ hr Q12@0600,1800 IV 05/22/17 06:00 05/24/17 05:59 05/22/17 05:09 28.75 MLS/HR Miscellaneous Information (Consult) 1 ea UD PRN N/A 05/21/17 18:15 06/20/17 18:14 Atorvastatin Calcium (Lipitor Tab) 10 mg DAILY PO 05/22/17 09:00 06/21/17 08:59 Duloxetine HCl (Cymbalta Cap) 60 mg QPM PO 05/21/17 21:00 06/20/17 20:59 Pregabalin (Lyrica Cap) 50 mg QPM PO 05/21/17 21:00 06/20/17 20:59 Sodium Bicarbonate (Sodium Bicarbonate Tab) 1,300 mg TID PO 05/21/17 21:00 06/20/17 20:59 Miscellaneous Information (Order Awaiting Action) 1 QS N/A 05/22/17 08:00 06/21/17 07:59 Enoxaparin Sodium (Lovenox Inj) 30 mg Q24H SQ 05/22/17 18:15 06/20/17 18:14 Dexmedetomidine HCl 200 mcg/ Sodium Chloride 50 ml @ 0 mls/hr Q0M PRN IV 05/21/17 21:11 05/25/17 21:10 Miscellaneous Information (Consult Glycemic Management Pharmacy) 1 UD N/A 05/21/17 21:37 06/20/17 21:36 Sodium Bicarbonate 150 meq/Dextrose 1,150 ml @ 150 mls/hr Q7H40M IV 05/21/17 21:45 06/20/17 21:44 05/22/17 05:08 150 MLS/HR Insulin Aspart (novoLOG ASPART) SLIDING SCALE Q6 SC 05/22/17 00:00 06/21/17 00:00 05/22/17 00:57 2 UNITS Glucose (Glucose 40% Gel) 15-30 GRAMS 15 GRAMS... UD PRN PO 05/21/17 22:15 06/20/17 22:14 Glucose (Glucose Chew Tab) 4-8 Tablets 4 Tabl... UD PRN PO 05/21/17 22:15 06/20/17 22:14 Dextrose (Dextrose 50% 50ML Syringe) 25-50ML OF 50% DW IV FOR... UD PRN IV 05/21/17 22:15 06/20/17 22:14 Glucagon (Glucagon Inj) 1 mg UD PRN SQ 05/21/17 22:15 06/20/17 22:14 Norepinephrine Bitartrate 8 mg/ Dextrose 508 ml @ 0 mls/hr Q0M PRN IV 05/21/17 22:45 06/20/17 22:44 Norepinephrine Bitartrate 8 mg/ Dextrose 508 ml @ 0 mls/hr Q0M PRN IV 05/21/17 22:44 06/20/17 22:43 Propofol (Diprivan Iv Emulsion 100ml Vial) 1 dose UD PRN IV 05/21/17 22:44 05/24/17 22:43 05/22/17 05:22 1 DOSE Pantoprazole Sodium 40 mg/ Syringe 10 ml @ 5 mls/min DAILY@11 IV 05/22/17 11:00 06/21/17 10:59 Heparin Sodium (Porcine) (Heparin 10 Unit/ ml 5 ml Flush) 5 ml PRN PRN FLUSH 05/22/17 02:30 06/21/17 02:29 Last 24 Hours Test 05/21/17 15:35 05/21/17 15:44 05/21/17 15:50 05/21/17 15:51 White Blood Count 24.03 K/uL Red Blood Count 5.17 M/uL Hemoglobin 14.3 g/dL Hematocrit 44.3 % Mean Corpuscular Volume 85.7 fL Mean Corpuscular Hemoglobin 27.7 pg Mean Corpuscular Hemoglobin Concent 32.3 g/dl Platelet Count 499 K/uL Mean Platelet Volume 9.5 fL Neutrophils (%) (Auto) 71.2 % Lymphocytes (%) (Auto) 13.4 % Monocytes (%) (Auto) 5.0 % Eosinophils (%) (Auto) 0.5 % Basophils (%) (Auto) 0.4 % Neutrophils # (Auto) 17.12 K/uL Lymphocytes # (Auto) 3.21 K/uL Monocytes # (Auto) 1.19 K/uL Eosinophils # (Auto) 0.13 K/uL Basophils # (Auto) 0.09 K/uL RDW Standard Deviation 57.3 fL RDW Coefficient of Variation 18.5 % Immature Granulocyte % (Auto) 9.5 % Immature Granulocyte # (Auto) 2.29 K/uL Nucleated RBC Absolute Count (auto) 0.45 K/uL Nucleated Red Blood Cells % 1.9 % Polychromasia 1+ Sodium Level 125 mmol/L Potassium Level mmol/L Chloride Level 104 mmol/L Carbon Dioxide Level 5 mmol/L Anion Gap 16.0 mmol/L Blood Urea Nitrogen 42 mg/dl Creatinine 3.82 mg/dl Est Creatinine Clear Calc Drug Dose 20.5 ml/min Estimated GFR () 15.7 Estimated GFR (Non- 13.5 BUN/Creatinine Ratio 11.1 Random Glucose 112 mg/dl Calcium Level 9.3 mg/dl Total Bilirubin 0.6 mg/dl Direct Bilirubin mg/dl Aspartate Amino Transf (AST/SGOT) U/L Alanine Aminotransferase (ALT/SGPT) 18 U/L Alkaline Phosphatase 102 U/L Total Creatine Kinase U/L Creatine Kinase MB 1.9 ng/ml Creatine Kinase MB Ratio Troponin I < 0.015 ng/ml Total Protein 9.8 gm/dl Albumin 4.6 gm/dl Beta-Hydroxybutyric Acid 1.94 mg/dL Thyroid Stimulating Hormone (TSH) 0.932 uIu/ml Urine Color YELLOW Urine Appearance CLOUDY Urine pH 5.0 Urine Specific Webster 1.027 Urine Protein 3+ Urine Glucose (UA) NEG Urine Ketones NEG Urine Occult Blood NEG Urine Nitrite NEG Urine Bilirubin NEG Urine Urobilinogen NEG Urine Leukocyte Esterase SMALL Urine WBC (Auto) 10-30 /hpf Urine RBC (Auto) 0-4 /hpf Urine Hyaline Casts (Auto) 1-5 /lpf Urine Epithelial Cells (Auto) >30 /lpf Urine Bacteria (Auto) 1+ Influenza Type A Antigen Neg for Influ A Influenza Type B Antigen Neg for Influ B Bedside Glucose 112 mg/dl Test 05/21/17 17:37 05/21/17 17:44 05/21/17 21:16 05/21/17 21:43 Bedside Lactic Acid Venous < 0.30 mmol/L Potassium Level mmol/L 6.4 mmol/L Direct Bilirubin mg/dl < 0.1 mg/dl Aspartate Amino Transf (AST/SGOT) U/L 14 U/L Total Creatine Kinase U/L 70 U/L White Blood Count 29.36 K/uL Red Blood Count 4.47 M/uL Hemoglobin 12.2 g/dL Hematocrit 38.3 % Mean Corpuscular Volume 85.7 fL Mean Corpuscular Hemoglobin 27.3 pg Mean Corpuscular Hemoglobin Concent 31.9 g/dl Platelet Count 387 K/uL Mean Platelet Volume 8.9 fL RDW Standard Deviation 56.5 fL RDW Coefficient of Variation 18.2 % Nucleated RBC Absolute Count (auto) 0.85 K/uL Neutrophils % (Manual) 81.4 % Lymphocytes % (Manual) 8.0 % Monocytes % (Manual) 4.4 % Eosinophils % (Manual) 0.9 % Metamyelocytes % 3.5 % Myelocytes % 1.8 % Nucleated Red Blood Cells % 2.9 % Neutrophils # (Manual) 23.90 K/uL Total Absolute Neutrophils 23.90 K/uL Lymphocytes # (Manual) 2.35 K/uL Total Absolute Lymphocytes 2.35 K/uL Monocytes # (Manual) 1.29 K/uL Eosinophils # (Manual) 0.26 K/uL Metamyelocytes # 1.03 K/uL Myelocytes # 0.53 K/uL Polychromasia 1+ Echinocytes 2+ Sodium Level 131 mmol/L Chloride Level 112 mmol/L Carbon Dioxide Level < 5 mmol/L Anion Gap 15.0 mmol/L Blood Urea Nitrogen 49 mg/dl Creatinine 3.48 mg/dl Est Creatinine Clear Calc Drug Dose 22.6 ml/min Estimated GFR () 17.6 Estimated GFR (Non- 15.2 BUN/Creatinine Ratio 14.0 Random Glucose 111 mg/dl Lactic Acid Level 0.2 mmol/L Calcium Level 7.9 mg/dl Phosphorus Level 4.6 mg/dl Magnesium Level 2.3 mg/dl Total Bilirubin 0.6 mg/dl Alanine Aminotransferase (ALT/SGPT) 13 U/L Alkaline Phosphatase 85 U/L Ammonia 116.8 umol/L Total Protein 7.6 gm/dl Albumin 3.8 gm/dl Globulin 3.8 gm/dl Albumin/Globulin Ratio 1.0 Procalcitonin 0.50 ng/ml Blood Gas Sample Site R Brachial Bedside Blood Gas pH (LAB) 6.81 Bedside Blood Gas pCO2 (LAB) 14 mmHg Bedside Blood Gas pO2 (LAB) 116 mmHg Bedside Blood Gas HCO3 (LAB) 2 meq/L Bedside Blood Gas Total CO2 < 5 mEq/l Bedside Blood Gas Base Excess (LAB) < -30.0 meq/L Bedside Blood Gas O2 Saturation 93.0 % Mickey Test Pass Oxygen Delivery Device Room Air Test 05/22/17 00:05 05/22/17 00:17 05/22/17 00:26 05/22/17 01:31 White Blood Count 17.90 K/uL Red Blood Count 3.81 M/uL Hemoglobin 10.4 g/dL Hematocrit 31.9 % Mean Corpuscular Volume 83.7 fL Mean Corpuscular Hemoglobin 27.3 pg Mean Corpuscular Hemoglobin Concent 32.6 g/dl Platelet Count 253 K/uL Mean Platelet Volume 9.0 fL Neutrophils (%) (Auto) 81.9 % Lymphocytes (%) (Auto) 5.6 % Monocytes (%) (Auto) 4.4 % Eosinophils (%) (Auto) 0.2 % Basophils (%) (Auto) 0.2 % Neutrophils # (Auto) 14.66 K/uL Lymphocytes # (Auto) 1.01 K/uL Monocytes # (Auto) 0.78 K/uL Eosinophils # (Auto) 0.04 K/uL Basophils # (Auto) 0.04 K/uL RDW Standard Deviation 55.5 fL RDW Coefficient of Variation 18.2 % Immature Granulocyte % (Auto) 7.7 % Immature Granulocyte # (Auto) 1.37 K/uL Nucleated RBC Absolute Count (auto) 0.15 K/uL Nucleated Red Blood Cells % 0.9 % Echinocytes 2+ Prothrombin Time 10.7 SECONDS Prothromb Time International Ratio 1.0 Activated Partial Thromboplast Time 30.3 SECONDS Partial Thromboplastin Ratio 1.2 Sodium Level 140 mmol/L 139 mmol/L Potassium Level 3.6 mmol/L 3.5 mmol/L Chloride Level 114 mmol/L 113 mmol/L Carbon Dioxide Level 6 mmol/L 5 mmol/L Anion Gap 20.0 mmol/L 21.0 mmol/L Blood Urea Nitrogen 52 mg/dl 52 mg/dl Creatinine 3.21 mg/dl 3.33 mg/dl Est Creatinine Clear Calc Drug Dose 24.5 ml/min 23.7 ml/min Estimated GFR () 19.4 18.5 Estimated GFR (Non- 16.7 16.0 BUN/Creatinine Ratio 16.2 15.6 Random Glucose 206 mg/dl 222 mg/dl Osmolality 307 mOsm/kg Calcium Level 6.8 mg/dl 6.6 mg/dl Ionized Calcium 1.06 mmol/l Phosphorus Level 3.6 mg/dl Magnesium Level 2.0 mg/dl Total Bilirubin 0.7 mg/dl Aspartate Amino Transf (AST/SGOT) 16 U/L Alanine Aminotransferase (ALT/SGPT) 13 U/L Alkaline Phosphatase 69 U/L Total Protein 6.0 gm/dl Albumin 3.0 gm/dl Globulin 3.0 gm/dl Albumin/Globulin Ratio 1.0 Amylase Level 172 U/L Lipase 2866 U/L Salicylates Level 18.8 mg/dl Acetaminophen Level 27 ug/ml Ethyl Alcohol mg/dL < 3.0 mg/dl Blood Gas Sample Site Art Line Bedside Blood Gas pH (LAB) 7.07 Bedside Blood Gas pCO2 (LAB) 18 mmHg Bedside Blood Gas pO2 (LAB) 245 mmHg Bedside Blood Gas HCO3 (LAB) 5 meq/L Bedside Blood Gas Total CO2 6 mEq/l Bedside Blood Gas Base Excess (LAB) -25.0 meq/L Bedside Blood Gas O2 Saturation 100.0 % Mickey Test NA Oxygen Delivery Device Ventilator Bedside Oxygen Rate (breaths/min) 30 Blood Gas Minute Ventilation 17.9 Bedside FiO2 50 % Blood Gas Tidal Volume 450 Blood Gas PEEP 5 Bedside Glucose (other) 197 mg/dl Troponin I 0.022 ng/ml Hepatitis B Surface Antigen NEG Hepatitis B Surface Antibody NEG Test 05/22/17 02:17 05/22/17 03:38 05/22/17 04:57 Urine Color YELLOW Urine Appearance CLEAR Urine pH 5.0 Urine Specific Webster 1.014 Urine Protein 2+ Urine Glucose (UA) NEG Urine Ketones NEG Urine Occult Blood TRACE Urine Nitrite NEG Urine Bilirubin NEG Urine Urobilinogen NEG Urine Leukocyte Esterase TRACE Urine WBC (Auto) 5-10 /hpf Urine RBC (Auto) 0-4 /hpf Urine Hyaline Casts (Auto) 1-5 /lpf Urine Epithelial Cells (Auto) >30 /lpf Urine Bacteria (Auto) NEG Urine Renal Epithelial Cells /lpf Urine Yeast (Auto) Urine Osmolality 338 mOms/kg Urine Random Creatinine 29.1 mg/dl Urine Random Sodium 93 mEq/L Urine Random Potassium 29.2 mEq/L Urine Random Chloride 98 mEq/L Urine Opiates Screen NEG Urine Methadone, Qualitative NEG Urine Barbiturates NEG Urine Phencyclidine (PCP) Level NEG Ur Amphetamine/Methamphetamine NEG MDMA (Ecstasy) Screen NEG Urine Benzodiazepines Screen NEG Urine Cocaine Metabolite NEG Urine Marijuana (THC) NEG Blood Gas Sample Site Art Line Bedside Blood Gas pH (LAB) 7.35 Bedside Blood Gas pCO2 (LAB) 18 mmHg Bedside Blood Gas pO2 (LAB) 206 mmHg Bedside Blood Gas HCO3 (LAB) 10 meq/L Bedside Blood Gas Total CO2 11 mEq/l Bedside Blood Gas Base Excess (LAB) -16.0 meq/L Bedside Blood Gas O2 Saturation 100.0 % Mickey Test NA Oxygen Delivery Device Ventilator Bedside Oxygen Rate (breaths/min) 35 Blood Gas Minute Ventilation 20.5 Bedside FiO2 35 % Blood Gas Tidal Volume 450 Blood Gas PEEP 5 White Blood Count 14.13 K/uL Red Blood Count 3.47 M/uL Hemoglobin 9.4 g/dL Hematocrit 28.5 % Mean Corpuscular Volume 82.1 fL Mean Corpuscular Hemoglobin 27.1 pg Mean Corpuscular Hemoglobin Concent 33.0 g/dl Platelet Count 281 K/uL Mean Platelet Volume 8.7 fL RDW Standard Deviation 54.4 fL RDW Coefficient of Variation 18.3 % Nucleated RBC Absolute Count (auto) 0.14 K/uL Nucleated Red Blood Cells % 1.0 % Sodium Level 137 mmol/L Potassium Level 2.7 mmol/L Chloride Level 108 mmol/L Carbon Dioxide Level 10 mmol/L Anion Gap 19.0 mmol/L Blood Urea Nitrogen 33 mg/dl Creatinine 2.24 mg/dl Est Creatinine Clear Calc Drug Dose 35.3 ml/min Estimated GFR () 29.9 Estimated GFR (Non- 25.8 BUN/Creatinine Ratio 14.6 Random Glucose 212 mg/dl Lactic Acid Level 0.7 mmol/L Calcium Level 6.7 mg/dl Ionized Calcium 1.01 mmol/l Phosphorus Level 2.6 mg/dl Magnesium Level 1.7 mg/dl Total Bilirubin 0.6 mg/dl Aspartate Amino Transf (AST/SGOT) 20 U/L Alanine Aminotransferase (ALT/SGPT) 13 U/L Alkaline Phosphatase 59 U/L Total Creatine Kinase 63 U/L Troponin I 0.088 ng/ml Total Protein 5.6 gm/dl Albumin 2.8 gm/dl Globulin 2.8 gm/dl Albumin/Globulin Ratio 1.0 Amylase Level 139 U/L Lipase 1735 U/L Date/Time Source Procedure Growth Status 05/21/17 17:15 Blood Blood Culture Pending Received 05/21/17 17:00 Blood Blood Culture Pending Received 05/21/17 20:00 Nasal MRSA DNA Surveillance Screen - Final Specimen Negative for MRSA by DNA Probe Complete 05/22/17 02:17 Urine,Catheterized Urine Culture Pending Received 05/21/17 15:45 Urine , Clean Catch Urine Culture Pending Received Assessment & Plan hyponatremia-sodium of 125 increased to 139. will dialyze again on sodium bath of 135. OK on ckd stage 4-creatinine baseline 2.2 and worsened to 3.8. requiring dialysis for signfiicant acidosis. plan on dialysis again today to help correct the acidosis. Acidosis: unclear etiology to the metabolic acidosis. perhaps combination of renal failure/chronic diarrhea from colectomy/metformin/possibly topamax if she was taking it. cultures pending and on broad spectrum antibiotics. does not appear to be in dka although blood sugars are now worsening and to start insulin drip. plan on dialysis again today. hypocalcemia-repleting with one gram of calcium gluconate today.
[2017-05-22] MEDS ORDERED: PIPERACILL/TAZOBAC IV 3.375 GM in DEXTROSE 5% 100ML 100 ML IV SCH (06:00)
[2017-05-22] MEDS ORDERED: NURSING VERBAL MED ORDER ONE (06:00)
[2017-05-22] MEDS ORDERED: NovoLIN R BOLUS FROM BAG IV ONE (06:15)
[2017-05-22] MEDS ORDERED: MAGNESIUM SULFATE 1GM / D5W 1 GM in PREMIXED IN D5W 100 ML IV STA (06:17)
[2017-05-22] MEDS: INSULIN REGULAR 250 UNITS in SODIUM CHLORIDE 0.9% 250ML 250 ML IV SCH (06:20)
[2017-05-22] MEDS: POTASSIUM CHLR 20 MEQ / WTR 20 MEQ in PREMIXED WATER 100 ML IV SCH ×4 (06:24→13:25)
--- NOTE | 2017-05-22 07:49 | DIAGNOSTIC IMAGING REPORT ---
CHEST ONE VIEW PORTABLE CLINICAL HISTORY: Evaluate for pneumonia. COMPARISON STUDY: Chest radiograph May 21, 2017. FINDINGS: Tip of nasogastric tube is below the lower aspect of the image but at least within the proximal stomach. Tip of endotracheal tube is 1.6 cm above the yumi. Patient is rotated. Left internal jugular central line is in place. There is no pneumothorax or pleural effusion. There is no evidence for pulmonary edema. There is no consolidation to suggest pneumonia. IMPRESSION: 1. Tip of endotracheal tube 1.6 cm above the yumi. 2. No consolidation to suggest pneumonia. 3. No pneumothorax. Electronically signed by: Usman White M.D. 05/22/2017 7:47 AM Dictated Date/Time: 05/22/2017 7:45 AM
[2017-05-22] MEDS ORDERED: MIDAZOLAM HCL 1 MG/ML 2ML VIAL IV PRN (08:30)
[2017-05-22] MEDS: TRICOR~ORDER AWAITING ACTION SCH ×2 (08:42→15:13)
[2017-05-22] MEDS ORDERED: PANTOprazole SOD 40 MG TAB PO SCH (09:00)
[2017-05-22] MEDS ORDERED: LISINOPRIL 10 MG TAB PO SCH (09:00)
[2017-05-22] MEDS ORDERED: DEXTROSE 5% IV ONE (09:45)
[2017-05-22] MEDS ORDERED: ACETYLCYSTEINE IV ONE (09:45)
[2017-05-22 10:18] LABS: ALBUMIN 2.6 gm/dl (3.4-5.0); CALCIUM 6.7 mg/dl (8.5-10.1); CREATININE 2.57 mg/dl (0.60-1.20); POTASSIUM 2.6 mmol/L (3.5-5.1)
[2017-05-22 10:22] LABS: TOTAL PROTEIN 5.3 gm/dl (6.4-8.2)
--- NOTE | 2017-05-22 10:24 | Progress Note ---
Progress Note Date of Service May 22, 2017. Progress Note ID Consult Dictated #[id number] A/P: 1. Acidosis -Likley non infectious, agree with stopping systemic abx -Await c diff -thank you
--- NOTE | 2017-05-22 10:40 | INFECT. DISEASE CONSULTATION ---
DATE OF CONSULTATION: 05/22/2017 HISTORY OF PRESENT ILLNESS: This is a 42-year-old old female who was admitted yesterday with severe acidosis. She is currently intubated and sedated. She is on pressor therapy. She was started on empiric antibiotics consisting of Zosyn and vancomycin. So far, her infectious workup has been unremarkable with the exception of a severe leukocytosis of 24,000 on admission. This has improved to 14. She also has an elevated lipase of 1735. Her creatinine was elevated at 3.8, but has improved to 2.2 today. Her LFTs are within normal limits. Her chest x-ray was negative. She did receive emergent dialysis overnight and is due to have dialysis again today. A urinalysis was unremarkable. Flu swab was negative. Blood cultures and urine cultures are pending. Her procalcitonin and lactic acid were negative. She does have a history of type 1 diabetes and a history of DKA and metabolic acidosis in the past. She was recently hospitalized for C. diff and underwent a total colectomy. She recently saw infectious diseases in the office for a history of MSSA in the sputum; however, she does not have any worsening complaint of shortness of breath or coughing. For this reason, coupled with her history of C. diff, antibiotic therapy was discontinued. I did speak with the senior mechanical designer service this morning and a C. diff was sent and she will be started empirically for C. diff treatment. Her systemic antibiotics are to be discontinued later today. As the patient is sedated on the ventilator, I am unable to obtain any review of systems. PAST MEDICAL HISTORY: Significant for a history of C. diff requiring colectomy, type 1 diabetes with history of diabetic ketoacidosis, lumbar disc displacement, history of sinusitis and prolonged pneumonia and bronchitis with previous cultures growing MSSA, hypertension. FAMILY HISTORY: Noncontributory. SOCIAL HISTORY: Significant for daily tobacco use. She has no history of alcohol or drug use. ALLERGIES: She has no known drug allergies. MEDICATIONS: Include subQ heparin, potassium, Protonix, p.o. vancomycin, p.o. Flagyl, Lipitor, fentanyl, Versed, insulin, norepinephrine, Cymbalta, Lyrica, Tylenol. PHYSICAL EXAMINATION: VITAL SIGNS: She is afebrile, pulse 98, respiratory rate is in the 20s, blood pressure is 125/62, oxygen saturation is 100% on 28% FIO2. GENERAL: She is sedated on the ventilator. HEART: Regular and tachycardic. LUNGS: Clear. ABDOMEN: Soft and nondistended. EXTREMTIES: There is no edema. SKIN: Without rash. Multiple lines are noted. LABORATORY STUDIES: CBC today reveals a white blood cell count of 14.1, hemoglobin 9.4, platelets are 281. Chemistry panel this morning, sodium is 137, potassium 2.7, chloride 108, bicarbonate 10, BUN 33, creatinine 2.2, glucose is 212. LFTs were normal. Troponin was mildly elevated. Lipase was 1735. Amylase was 139. Alcohol level was negative. UDS was negative. Flu swab is negative. Hepatitis B screening is negative. Blood cultures and urine cultures are pending. C. diff is pending. X-ray this morning did not show any evidence of pneumonia. ASSESSMENT AND PLAN: Acidosis. I agree with the senior mechanical designer service that this is likely more related to recent colectomy and gastrointestinal imbalance versus sepsis. She has negative lactic acid and procalcitonin, which would speak against an infectious etiology. I am in agreement with holding systemic antibiotics and treating empirically for what may be a recurrent Clostridium difficile pending the results of her Clostridium difficile, which was sent this morning. Thank you for this consultation.
[2017-05-22] MEDS ORDERED: PANTOprazole INJ 40 MG in SYRINGE 0 ML IV SCH (11:00)
[2017-05-22] MEDS: METRONIDAZOLE 500 MG TAB PO SCH ×3 (11:02→22:05)
[2017-05-22] MEDS: ATORVASTATIN 10 MG TAB PO SCH (11:02)
[2017-05-22] MEDS: VANCOMYCIN HCL 250 MG/5 ML SOLN PO SCH ×4 (11:02→22:11)
[2017-05-22] MEDS: RASPBERRY SYRUP 5 ML UDP PO SCH ×4 (11:02→22:05)
[2017-05-22 12:44] LABS: ALBUMIN 2.3 gm/dl (3.4-5.0); CALCIUM 6.5 mg/dl (8.5-10.1); CREATININE 2.75 mg/dl (0.60-1.20); POTASSIUM 2.7 mmol/L (3.5-5.1)
[2017-05-22 12:52] LABS: PHOSPHORUS 2.3 mg/dl (2.5-4.9)
[2017-05-22 12:54] LABS: LIPASE 2453 U/L (73-393)
[2017-05-22] MEDS: HEPARIN SOD 5000 UNIT/0.5 ML CARP SC SCH ×2 (13:24→22:08)
--- NOTE | 2017-05-22 14:57 | Progress Note ---
Internal Med Progress Note Date of Service: May 22, 2017. Provider Documentation: SUBJECTIVE: The patient was seen and examined:Now Intubated in ICU Admitted with presents here due to dizziness, shakiness, weakness with recent H/ O DKA Intubated and Sedated OBJECTIVE: Vital Signs-as noted below Exam: General-Remains intubated Eyes-Closed ENT-Normal Neck-Supple Lungs-Decreased breath sound bilaterally Heart-Regular Abdomen-Soft Bowel sound present Extremities-Trace edema bilaterally Neuro-Sedated on Vent Lab data as noted below. ASSESSMENT & PLAN: This is a 42 year old female with a PMH of type 1 DM, HTN, C. diff colitis - was recently hospitalized here in [facility] in April 2017 with severe metabolic acidosis, DKA, septic shock, requiring an ICU admission, temporary trach, dialysis x1 - presents with similar symptoms H/O Colectomy a few years back due to C Diff Colitis Sepsis syndrome without any source of infection -patient with elevated white blood cell count with immature cell lines-May have Leukemoid reaction -C Diff Toxin -negative -started on IV Vanco + Zosyn and discontinued later on -panculture -Appreciate ID input Severe Metabolic Acidosis -bicarb down to 5,on 05/10, normal bicarb noted -taking sodium bicarb supplements -causes likely multifactorial:metabolic acidosis. perhaps combination of renal failure/chronic diarrhea from colectomy/metformin or other medication -appreciate Hospitalist Program Director input -Appreciate Nephrology input -getting Dialysis Pancreatitis Contributing electrolytes abnormalities IV fluid and supportive measures Hypertensive Emergency blood pressure >200/100 started on labetalol drip as per cloud systems architect Acute Kidney Injury superimposed on CKD stage IV patient with creatinine at 3.8 she is clinically severely dehydrated Appreciate Nephrology input Type 1 DM would continue basal/bolus appreciate cloud systems architect and pharmacy glycemic control consultations will defer to them regarding this, as patient has had multiple episodes of DKA in the past DVT ppx Lovenox FULL CODE Vital Signs: Date Time Temp Pulse Resp B/P (MAP) Pulse Ox O2 Delivery O2 Flow Rate FiO2 05/22/17 17:15 107 135/64 05/22/17 17:00 108 119/60 05/22/17 16:46 37.2 105 35 112/63 (72) 100 115/57 05/22/17 16:45 107 117/57 05/22/17 16:31 37.2 106 35 115/59 (74) 100 120/58 218 16:30 106 118/59 2/18 16:16 37.2 106 35 112/56 (70) 100 113/55 218 16:15 106 113/55 218 16:00 28 18 16:00 37.3 102 35 101/56 (71) 100 115/57 218 16:00 Mechanical Ventilator 28 05/22/17 16:00 102 101/56 18 15:46 37.3 104 35 110/62 (75) 100 118/58 218 15:45 103 119/59 218 15:31 37.3 101 35 120/57 (73) 100 117/56 18 15:30 97 113/47 18 15:23 37.4 97 35 113/47 (71) 100 111/53 18 15:20 97 119/54 218 15:16 37.5 101 35 117/62 (78) 100 132/58 18 15:15 37.5 100 127/57 (80) 18 15:01 37.5 101 35 128/56 (74) 100 124/55 18 14:42 28 05/22/17 14:01 37.4 101 35 113/47 (78) 100 132/58 18 13:45 28 05/22/17 13:01 37.4 99 35 116/58 (77) 100 128/58 05/22/17 12:01 97 35 110/56 (75) 100 124/55 05/22/17 12:00 28 05/22/17 12:00 Mechanical Ventilator 28 05/22/17 12:00 28 18 11:10 28 18 11:01 37.3 94 35 102/58 (74) 100 122/53 18 10:00 28 05/22/17 09:01 37.0 96 35 120/66 (80) 100 132/55 05/22/17 08:02 96 35 131/75 (83) 100 139/60 05/22/17 08:00 Mechanical Ventilator 28 05/22/17 08:00 21 05/22/17 08:00 28 05/22/17 08:00 28 05/22/17 07:18 28 05/22/17 07:01 93 36 92/70 (86) 100 138/65 05/22/17 06:00 98 40 125/62 (83) 100 05/22/17 05:10 28 05/22/17 05:01 103 26 100/53 (69) 05/22/17 05:00 103 28 106/53 (70) 05/22/17 04:30 36.9 98 116/49 (71) 05/22/17 04:15 100 92/45 05/22/17 04:01 36.5 100 22 100/48 (65) 100 05/22/17 04:00 35 05/22/17 04:00 100 100/51 05/22/17 04:00 100 Room Air 05/22/17 04:00 100 21 91/46 (61) 100 05/22/17 03:46 28 05/22/17 03:45 99 105/53 05/22/17 03:30 96 105/54 05/22/17 03:15 96 92/47 05/22/17 03:01 95 25 99/52 (68) 100 05/22/17 03:00 96 86/47 05/22/17 03:00 95 23 95/52 (66) 100 05/22/17 02:45 93 83/43 05/22/17 02:37 35 05/22/17 02:30 93 98/50 05/22/17 02:15 91 105/51 05/22/17 02:01 89 28 97/48 (64) 100 05/22/17 02:00 89 28 101/50 (67) 100 05/22/17 02:00 89 109/50 05/22/17 01:45 36.4 89 104/50 (68) 05/22/17 01:01 94 30 114/54 (74) 100 05/22/17 01:00 93 21 113/53 (73) 100 05/22/17 00:35 35 05/22/17 00:01 101 21 141/53 (82) 100 05/22/17 00:00 35 05/22/17 00:00 100 Room Air 05/22/17 00:00 36.9 101 23 133/67 (89) 100 05/21/17 23:59 101 16 132/64 (86) 100 05/21/17 23:01 103 30 144/78 (100) 100 05/21/17 23:00 103 30 100 05/21/17 22:36 103 22 93/49 (64) 100 05/21/17 22:35 50 05/21/17 22:35 35 05/21/17 22:32 105 17 92/49 (63) 100 05/21/17 22:29 104 15 131/71 (91) 100 05/21/17 22:26 106 33 160/75 (103) 100 05/21/17 22:23 106 25 140/91 (107) 100 05/21/17 22:00 106 23 100 05/21/17 21:02 103 99 28 05/21/17 21:01 104 21 222/135 (164) 91 05/21/17 21:00 106 24 99 05/21/17 20:01 102 21 240/176 (197) 100 05/21/17 20:00 36.8 103 19 100 05/21/17 20:00 100 Room Air 05/21/17 19:30 36.6 101 22 220/114 05/21/17 18:01 97 162/106 100 Room Air Lab Results: Results Past 24 Hours Test 05/21/17 21:16 05/21/17 21:43 05/22/17 00:05 05/22/17 00:17 Range/Units White Blood Count 29.36 17.90 4.8-10.8 K/uL Red Blood Count 4.47 3.81 4.2-5.4 M/uL Hemoglobin 12.2 10.4 12.0-16.0 g/dL Hematocrit 38.3 31.9 37-47 % Mean Corpuscular Volume 85.7 83.7 80-100 fL Mean Corpuscular Hemoglobin 27.3 27.3 25-34 pg Mean Corpuscular Hemoglobin Concent 31.9 32.6 32-36 g/dl Platelet Count 387 253 130-400 K/uL Mean Platelet Volume 8.9 9.0 7.4-10.4 fL RDW Standard Deviation 56.5 55.5 36.4-46.3 fL RDW Coefficient of Variation 18.2 18.2 11.5-14.5 % Nucleated RBC Absolute Count (auto) 0.85 0.15 0-0 K/uL Neutrophils % (Manual) 81.4 % Lymphocytes % (Manual) 8.0 % Monocytes % (Manual) 4.4 % Eosinophils % (Manual) 0.9 % Metamyelocytes % 3.5 % Myelocytes % 1.8 % Nucleated Red Blood Cells % 2.9 0.9 % Neutrophils # (Manual) 23.90 1.4-6.5 K/uL Total Absolute Neutrophils 23.90 1.4-6.5 K/uL Lymphocytes # (Manual) 2.35 1.2-3.4 K/uL Total Absolute Lymphocytes 2.35 1.2-3.4 K/uL Monocytes # (Manual) 1.29 0.11-0.59 K/uL Eosinophils # (Manual) 0.26 0-0.5 K/uL Metamyelocytes # 1.03 0-0 K/uL Myelocytes # 0.53 0-0 K/uL Polychromasia 1+ Echinocytes 2+ 2+ Sodium Level 131 140 136-145 mmol/L Potassium Level 6.4 3.6 3.5-5.1 mmol/L Chloride Level 112 114 98-107 mmol/L Carbon Dioxide Level < 5 6 21-32 mmol/L Anion Gap 15.0 20.0 3-11 mmol/L Blood Urea Nitrogen 49 52 7-18 mg/dl Creatinine 3.48 3.21 0.60-1.20 mg/dl Est Creatinine Clear Calc Drug Dose 22.6 24.5 ml/min Estimated GFR () 17.6 19.4 Estimated GFR (Non- 15.2 16.7 BUN/Creatinine Ratio 14.0 16.2 10-20 Random Glucose 111 206 70-99 mg/dl Lactic Acid Level 0.2 0.4-2.0 mmol/L Calcium Level 7.9 6.8 8.5-10.1 mg/dl Phosphorus Level 4.6 3.6 2.5-4.9 mg/dl Magnesium Level 2.3 2.0 1.8-2.4 mg/dl Total Bilirubin 0.6 0.7 0.2-1 mg/dl Direct Bilirubin < 0.1 0-0.2 mg/dl Aspartate Amino Transf (AST/SGOT) 14 16 15-37 U/L Alanine Aminotransferase (ALT/SGPT) 13 13 12-78 U/L Alkaline Phosphatase 85 69 45-117 U/L Ammonia 116.8 11-32 umol/L Total Creatine Kinase 70 26-192 U/L Total Protein 7.6 6.0 6.4-8.2 gm/dl Albumin 3.8 3.0 3.4-5.0 gm/dl Globulin 3.8 3.0 2.5-4.0 gm/dl Albumin/Globulin Ratio 1.0 1.0 0.9-2 Procalcitonin 0.50 0-0.5 ng/ml Blood Gas Sample Site R Brachial Art Line Bedside Blood Gas pH (LAB) 6.81 7.07 7.35-7.45 Bedside Blood Gas pCO2 (LAB) 14 18 35-46 mmHg Bedside Blood Gas pO2 (LAB) 116 245 80-95 mmHg Bedside Blood Gas HCO3 (LAB) 2 5 19-24 meq/L Bedside Blood Gas Total CO2 < 5 6 24-31 mEq/l Bedside Blood Gas Base Excess (LAB) < -30.0 -25.0 -9-1.8 meq/L Bedside Blood Gas O2 Saturation 93.0 100.0 90-95 % Mickey Test Pass NA Oxygen Delivery Device Room Air Ventilator Neutrophils (%) (Auto) 81.9 % Lymphocytes (%) (Auto) 5.6 % Monocytes (%) (Auto) 4.4 % Eosinophils (%) (Auto) 0.2 % Basophils (%) (Auto) 0.2 % Neutrophils # (Auto) 14.66 1.4-6.5 K/uL Lymphocytes # (Auto) 1.01 1.2-3.4 K/uL Monocytes # (Auto) 0.78 0.11-0.59 K/uL Eosinophils # (Auto) 0.04 0-0.5 K/uL Basophils # (Auto) 0.04 0-0.2 K/uL Immature Granulocyte % (Auto) 7.7 % Immature Granulocyte # (Auto) 1.37 0.00-0.02 K/uL Prothrombin Time 10.7 9.0-12.0 SECONDS Prothromb Time International Ratio 1.0 0.9-1.1 Activated Partial Thromboplast Time 30.3 21.0-31.0 SECONDS Partial Thromboplastin Ratio 1.2 Osmolality 307 280-300 mOsm/kg Ionized Calcium 1.06 1.12-1.32 mmol/l Amylase Level 172 25-115 U/L Lipase 2866 73-393 U/L Salicylates Level 18.8 2.8-20 mg/dl Acetaminophen Level 27 10-30 ug/ml Ethyl Alcohol mg/dL < 3.0 0-3 mg/dl Bedside Oxygen Rate (breaths/min) 30 Blood Gas Minute Ventilation 17.9 Bedside FiO2 50 % Blood Gas Tidal Volume 450 Blood Gas PEEP 5 Test 05/22/17 00:26 05/22/17 01:31 05/22/17 02:17 05/22/17 03:38 Range/Units Bedside Glucose (other) 197 70-99 mg/dl Sodium Level 139 136-145 mmol/L Potassium Level 3.5 3.5-5.1 mmol/L Chloride Level 113 98-107 mmol/L Carbon Dioxide Level 5 21-32 mmol/L Anion Gap 21.0 3-11 mmol/L Blood Urea Nitrogen 52 7-18 mg/dl Creatinine 3.33 0.60-1.20 mg/dl Est Creatinine Clear Calc Drug Dose 23.7 ml/min Estimated GFR () 18.5 Estimated GFR (Non- 16.0 BUN/Creatinine Ratio 15.6 10-20 Random Glucose 222 70-99 mg/dl Calcium Level 6.6 8.5-10.1 mg/dl Troponin I 0.022 0-0.045 ng/ml Hepatitis B Surface Antigen NEG NEG Hepatitis B Surface Antibody NEG Urine Color YELLOW Urine Appearance CLEAR CLEAR Urine pH 5.0 4.5-7.5 Urine Specific [place] 1.014 1.000-1.030 Urine Protein 2+ NEG Urine Glucose (UA) NEG NEG Urine Ketones NEG NEG Urine Occult Blood TRACE NEG Urine Nitrite NEG NEG Urine Bilirubin NEG NEG Urine Urobilinogen NEG NEG Urine Leukocyte Esterase TRACE NEG Urine WBC (Auto) 5-10 0-5 /hpf Urine RBC (Auto) 0-4 0-4 /hpf Urine Hyaline Casts (Auto) 1-5 0-5 /lpf Urine Epithelial Cells (Auto) >30 0-5 /lpf Urine Bacteria (Auto) NEG NEG Urine Renal Epithelial Cells 0-5 /lpf Urine Yeast (Auto) NONE PRSENT Urine Osmolality 338 500-800 mOms/kg Urine Random Creatinine 29.1 mg/dl Urine Random Sodium 93 mEq/L Urine Random Potassium 29.2 mEq/L Urine Random Chloride 98 mEq/L Urine Opiates Screen NEG NEG Urine Methadone, Qualitative NEG NEG Urine Barbiturates NEG NEG Urine Phencyclidine (PCP) Level NEG NEG Ur Amphetamine/Methamphetamine NEG NEG MDMA (Ecstasy) Screen NEG NEG Urine Benzodiazepines Screen NEG NEG Urine Cocaine Metabolite NEG NEG Urine Marijuana (THC) NEG NEG Blood Gas Sample Site Art Line Bedside Blood Gas pH (LAB) 7.35 7.35-7.45 Bedside Blood Gas pCO2 (LAB) 18 35-46 mmHg Bedside Blood Gas pO2 (LAB) 206 80-95 mmHg Bedside Blood Gas HCO3 (LAB) 10 19-24 meq/L Bedside Blood Gas Total CO2 11 24-31 mEq/l Bedside Blood Gas Base Excess (LAB) -16.0 -9-1.8 meq/L Bedside Blood Gas O2 Saturation 100.0 90-95 % Mickey Test NA Oxygen Delivery Device Ventilator Bedside Oxygen Rate (breaths/min) 35 Blood Gas Minute Ventilation 20.5 Bedside FiO2 35 % Blood Gas Tidal Volume 450 Blood Gas PEEP 5 Test 05/22/17 04:57 05/22/17 05:44 05/22/17 07:46 05/22/17 08:54 Range/Units White Blood Count 14.13 4.8-10.8 K/uL Red Blood Count 3.47 4.2-5.4 M/uL Hemoglobin 9.4 12.0-16.0 g/dL Hematocrit 28.5 37-47 % Mean Corpuscular Volume 82.1 80-100 fL Mean Corpuscular Hemoglobin 27.1 25-34 pg Mean Corpuscular Hemoglobin Concent 33.0 32-36 g/dl Platelet Count 281 130-400 K/uL Mean Platelet Volume 8.7 7.4-10.4 fL Neutrophils (%) (Auto) 80.2 % Lymphocytes (%) (Auto) 10.0 % Monocytes (%) (Auto) 5.5 % Eosinophils (%) (Auto) 0.1 % Basophils (%) (Auto) 0.1 % Neutrophils # (Auto) 11.31 1.4-6.5 K/uL Lymphocytes # (Auto) 1.42 1.2-3.4 K/uL Monocytes # (Auto) 0.78 0.11-0.59 K/uL Eosinophils # (Auto) 0.02 0-0.5 K/uL Basophils # (Auto) 0.02 0-0.2 K/uL RDW Standard Deviation 54.4 36.4-46.3 fL RDW Coefficient of Variation 18.3 11.5-14.5 % Immature Granulocyte % (Auto) 4.1 % Immature Granulocyte # (Auto) 0.58 0.00-0.02 K/uL Nucleated RBC Absolute Count (auto) 0.14 0-0 K/uL Nucleated Red Blood Cells % 1.0 % Echinocytes 1+ Sodium Level 137 136-145 mmol/L Potassium Level 2.7 3.5-5.1 mmol/L Chloride Level 108 98-107 mmol/L Carbon Dioxide Level 10 21-32 mmol/L Anion Gap 19.0 3-11 mmol/L Blood Urea Nitrogen 33 7-18 mg/dl Creatinine 2.24 0.60-1.20 mg/dl Est Creatinine Clear Calc Drug Dose 35.3 ml/min Estimated GFR () 29.9 Estimated GFR (Non- 25.8 BUN/Creatinine Ratio 14.6 10-20 Random Glucose 212 70-99 mg/dl Lactic Acid Level 0.7 0.4-2.0 mmol/L Calcium Level 6.7 8.5-10.1 mg/dl Ionized Calcium 1.01 1.12-1.32 mmol/l Phosphorus Level 2.6 2.5-4.9 mg/dl Magnesium Level 1.7 1.8-2.4 mg/dl Total Bilirubin 0.6 0.2-1 mg/dl Aspartate Amino Transf (AST/SGOT) 20 15-37 U/L Alanine Aminotransferase (ALT/SGPT) 13 12-78 U/L Alkaline Phosphatase 59 45-117 U/L Total Creatine Kinase 63 26-192 U/L Troponin I 0.088 0-0.045 ng/ml Total Protein 5.6 6.4-8.2 gm/dl Albumin 2.8 3.4-5.0 gm/dl Globulin 2.8 2.5-4.0 gm/dl Albumin/Globulin Ratio 1.0 0.9-2 Amylase Level 139 25-115 U/L Lipase 1735 73-393 U/L Bedside Glucose (other) 233 212 207 70-99 mg/dl Test 05/22/17 09:27 05/22/17 09:31 05/22/17 09:38 05/22/17 10:31 Range/Units Sodium Level 137 136-145 mmol/L Potassium Level 2.6 3.5-5.1 mmol/L Chloride Level 106 98-107 mmol/L Carbon Dioxide Level 11 21-32 mmol/L Anion Gap 19.0 3-11 mmol/L Blood Urea Nitrogen 35 7-18 mg/dl Creatinine 2.57 0.60-1.20 mg/dl Est Creatinine Clear Calc Drug Dose 30.8 ml/min Estimated GFR () 25.3 Estimated GFR (Non- 21.9 BUN/Creatinine Ratio 13.8 10-20 Random Glucose 248 70-99 mg/dl Lactic Acid Level 0.1 0.4-2.0 mmol/L Calcium Level 6.7 8.5-10.1 mg/dl Ionized Calcium 1.03 1.12-1.32 mmol/l Phosphorus Level 3.0 2.5-4.9 mg/dl Magnesium Level 2.1 1.8-2.4 mg/dl Total Bilirubin 0.6 0.2-1 mg/dl Aspartate Amino Transf (AST/SGOT) 14 15-37 U/L Alanine Aminotransferase (ALT/SGPT) 14 12-78 U/L Alkaline Phosphatase 51 45-117 U/L Total Creatine Kinase 70 26-192 U/L Total Protein 5.3 6.4-8.2 gm/dl Albumin 2.6 3.4-5.0 gm/dl Globulin 2.7 2.5-4.0 gm/dl Albumin/Globulin Ratio 1.0 0.9-2 Lipase 1885 73-393 U/L Random Vancomycin Level 20.9 mcg/ml Salicylates Level 10.2 2.8-20 mg/dl Acetaminophen Level 10 10-30 ug/ml Blood Gas Sample Site Art Line Bedside Blood Gas pH (LAB) 7.25 7.35-7.45 Bedside Blood Gas pCO2 (LAB) 22 35-46 mmHg Bedside Blood Gas pO2 (LAB) 148 80-95 mmHg Bedside Blood Gas HCO3 (LAB) 10 19-24 meq/L Bedside Blood Gas Total CO2 10 24-31 mEq/l Bedside Blood Gas Base Excess (LAB) -18.0 -9-1.8 meq/L Bedside Blood Gas O2 Saturation 99.0 90-95 % Mickey Test NA Oxygen Delivery Device Ventilator Bedside Oxygen Rate (breaths/min) 35 Blood Gas Minute Ventilation 15.7 Bedside FiO2 28 % Blood Gas Tidal Volume 450 Blood Gas PEEP 5 Bedside Glucose (other) 237 70-99 mg/dl Random Cortisol 36.08 mcg/dl Test 05/22/17 10:40 05/22/17 11:39 05/22/17 12:06 05/22/17 13:40 Range/Units Bedside Glucose (other) 203 70-99 mg/dl Bedside Glucose 245 70-90 mg/dl Sodium Level 138 136-145 mmol/L Potassium Level 2.7 3.5-5.1 mmol/L Chloride Level 107 98-107 mmol/L Carbon Dioxide Level 12 21-32 mmol/L Anion Gap 19.0 3-11 mmol/L Blood Urea Nitrogen 35 7-18 mg/dl Creatinine 2.75 0.60-1.20 mg/dl Est Creatinine Clear Calc Drug Dose 28.7 ml/min Estimated GFR () 23.4 Estimated GFR (Non- 20.2 BUN/Creatinine Ratio 12.7 10-20 Random Glucose 241 70-99 mg/dl Lactic Acid Level 0.1 0.4-2.0 mmol/L Calcium Level 6.5 8.5-10.1 mg/dl Ionized Calcium 1.00 1.12-1.32 mmol/l Phosphorus Level 2.3 2.5-4.9 mg/dl Magnesium Level 2.1 1.8-2.4 mg/dl Total Bilirubin 0.5 0.2-1 mg/dl Aspartate Amino Transf (AST/SGOT) 13 15-37 U/L Alanine Aminotransferase (ALT/SGPT) 16 12-78 U/L Alkaline Phosphatase 48 45-117 U/L Total Creatine Kinase 79 26-192 U/L Troponin I 0.319 0-0.045 ng/ml Total Protein 5.0 6.4-8.2 gm/dl Albumin 2.3 3.4-5.0 gm/dl Globulin 2.7 2.5-4.0 gm/dl Albumin/Globulin Ratio 0.9 0.9-2 Lipase 2453 73-393 U/L Blood Gas Sample Site Art Line Bedside Blood Gas pH (LAB) 7.29 7.35-7.45 Bedside Blood Gas pCO2 (LAB) 23 35-46 mmHg Bedside Blood Gas pO2 (LAB) 151 80-95 mmHg Bedside Blood Gas HCO3 (LAB) 11 19-24 meq/L Bedside Blood Gas Total CO2 12 24-31 mEq/l Bedside Blood Gas Base Excess (LAB) -15.0 -9-1.8 meq/L Bedside Blood Gas O2 Saturation 99.0 90-95 % Mickey Test NA Oxygen Delivery Device Ventilator Bedside Oxygen Rate (breaths/min) 35 Blood Gas Minute Ventilation 15.6 Bedside FiO2 28 % Blood Gas Tidal Volume 450 Blood Gas PEEP 5 Test 05/22/17 16:03 05/22/17 16:30 Range/Units Sodium Level 137 136-145 mmol/L Potassium Level 2.9 3.5-5.1 mmol/L Chloride Level 106 98-107 mmol/L Carbon Dioxide Level 16 21-32 mmol/L Anion Gap 15.0 3-11 mmol/L Blood Urea Nitrogen 26 7-18 mg/dl Creatinine 1.98 0.60-1.20 mg/dl Est Creatinine Clear Calc Drug Dose 39.9 ml/min Estimated GFR () 34.7 Estimated GFR (Non- 30.0 BUN/Creatinine Ratio 12.9 10-20 Random Glucose 140 70-99 mg/dl Lactic Acid Level 0.3 0.4-2.0 mmol/L Calcium Level 6.6 8.5-10.1 mg/dl Ionized Calcium 0.95 1.12-1.32 mmol/l Phosphorus Level 1.2 2.5-4.9 mg/dl Magnesium Level 1.8 1.8-2.4 mg/dl Total Bilirubin 0.4 0.2-1 mg/dl Aspartate Amino Transf (AST/SGOT) 14 15-37 U/L Alanine Aminotransferase (ALT/SGPT) 12 12-78 U/L Alkaline Phosphatase 50 45-117 U/L Total Creatine Kinase 81 26-192 U/L Total Protein 5.0 6.4-8.2 gm/dl Albumin 2.4 3.4-5.0 gm/dl Globulin 2.6 2.5-4.0 gm/dl Albumin/Globulin Ratio 0.9 0.9-2 Lipase 1443 73-393 U/L Blood Gas Sample Site Art Line Bedside Blood Gas pH (LAB) 7.40 7.35-7.45 Bedside Blood Gas pCO2 (LAB) 27 35-46 mmHg Bedside Blood Gas pO2 (LAB) 147 80-95 mmHg Bedside Blood Gas HCO3 (LAB) 16 19-24 meq/L Bedside Blood Gas Total CO2 17 24-31 mEq/l Bedside Blood Gas Base Excess (LAB) -9.0 -9-1.8 meq/L Bedside Blood Gas O2 Saturation 99.0 90-95 % Mickey Test NA Oxygen Delivery Device Ventilator Bedside Oxygen Rate (breaths/min) 35 Blood Gas Minute Ventilation 15.8 Bedside FiO2 28 % Blood Gas Tidal Volume 450 Blood Gas PEEP 5 Microbiology Results 05/21/17 MRSA DNA Surveillance Screen - Final, Complete Specimen Negative for MRSA by DNA Probe 05/22/17 C.difficile Toxin B Gene (PCR) - Final, Complete No C. difficile toxin B gene detected 05/22/17 Urine Culture, Received Pending
[2017-05-22] MEDS: FENTANYL CITRATE INJ 50 MCG/1 ML 2 ML VIAL IV PRN ×3 (15:14→22:34)
--- NOTE | 2017-05-22 15:39 | DIAGNOSTIC IMAGING REPORT ---
ABDOMEN COMPLETE (US) CLINICAL HISTORY: 42 years-old Female presenting with elevated lipase. TECHNIQUE: Real-time grayscale and limited color Doppler ultrasound imaging of the abdomen was performed. COMPARISON: CT from 04/21/2017. FINDINGS: Pancreas: Visualized portions of the pancreatic head and body normal. Liver: Mildly hyperechogenic parenchyma, although the right hemidiaphragm remains visible, likely indicating mild steatosis. No sonographic evidence of hepatic mass. Main portal vein patent with normal directional flow. Biliary: No intrahepatic biliary ductal dilatation. Common bile duct measures up to 6 mm in diameter. Gallbladder: Gallstones without evidence of gallbladder distention, wall thickening, or pericholecystic fluid or inflammatory change. Spleen: Not visualized. Kidneys: Increased echogenicity and a mildly enlarged. Right kidney measures 14.7 cm, and left kidney measures 12 cm. No hydronephrosis. Vasculature: Visualized portions of the IVC and abdominal aorta normal. Ascites: None. IMPRESSION: 1. Hepatic steatosis. 2. No sonographic abnormality of the pancreas. This does not exclude the diagnosis of pancreatitis. 3. Mildly enlarged and echogenic kidneys could suggest chronic medical renal disease. Electronically signed by: Brian Pavon M.D. 05/22/2017 3:38 PM Dictated Date/Time: 05/22/2017 3:35 PM
--- NOTE | 2017-05-22 15:53 | Pharmacy Progress Note ---
Glycemic Control Intl Consult Date of Service May 22, 2017. Scope Glycemic Pharmacist consulted by Dr Vences on 05/21 for glycemic control and to write orders per [facility] inpatient glycemic control protocol Objective Weight (Kilograms): 85.500 Accuchecks BSG (last 24hrs): Test 05/21/17 15:51 05/21/17 21:16 05/22/17 00:05 05/22/17 01:31 Bedside Glucose 112 mg/dl (70-90) Random Glucose 111 mg/dl (70-99) 206 mg/dl (70-99) 222 mg/dl (70-99) Test 05/22/17 04:57 05/22/17 09:27 05/22/17 11:39 05/22/17 12:06 Random Glucose 212 mg/dl (70-99) 248 mg/dl (70-99) 241 mg/dl (70-99) Bedside Glucose 245 mg/dl (70-90) Laboratory Data (last 24hrs) Test 05/21/17 17:44 05/21/17 21:16 05/22/17 00:05 05/22/17 01:31 Potassium Level mmol/L 6.4 mmol/L 3.6 mmol/L 3.5 mmol/L Anion Gap 15.0 mmol/L 20.0 mmol/L 21.0 mmol/L BUN/Creatinine Ratio 14.0 16.2 15.6 Blood Urea Nitrogen 49 mg/dl 52 mg/dl 52 mg/dl Creatinine 3.48 mg/dl 3.21 mg/dl 3.33 mg/dl Sodium Level 131 mmol/L 140 mmol/L 139 mmol/L White Blood Count 29.36 K/uL 17.90 K/uL Red Blood Count 4.47 M/uL 3.81 M/uL Hemoglobin 12.2 g/dL 10.4 g/dL Hematocrit 38.3 % 31.9 % Mean Corpuscular Volume 85.7 fL 83.7 fL Mean Corpuscular Hemoglobin 27.3 pg 27.3 pg Mean Corpuscular Hemoglobin Concent 31.9 g/dl 32.6 g/dl Platelet Count 387 K/uL 253 K/uL Mean Platelet Volume 8.9 fL 9.0 fL Neutrophils (%) (Auto) 81.9 % Lymphocytes (%) (Auto) 5.6 % Monocytes (%) (Auto) 4.4 % Eosinophils (%) (Auto) 0.2 % Basophils (%) (Auto) 0.2 % Neutrophils # (Auto) 14.66 K/uL Lymphocytes # (Auto) 1.01 K/uL Monocytes # (Auto) 0.78 K/uL Eosinophils # (Auto) 0.04 K/uL Basophils # (Auto) 0.04 K/uL Test 05/22/17 04:57 05/22/17 09:27 05/22/17 12:06 Anion Gap 19.0 mmol/L 19.0 mmol/L 19.0 mmol/L BUN/Creatinine Ratio 14.6 13.8 12.7 Blood Urea Nitrogen 33 mg/dl 35 mg/dl 35 mg/dl Creatinine 2.24 mg/dl 2.57 mg/dl 2.75 mg/dl Potassium Level 2.7 mmol/L 2.6 mmol/L 2.7 mmol/L Sodium Level 137 mmol/L 137 mmol/L 138 mmol/L White Blood Count 14.13 K/uL Red Blood Count 3.47 M/uL Hemoglobin 9.4 g/dL Hematocrit 28.5 % Mean Corpuscular Volume 82.1 fL Mean Corpuscular Hemoglobin 27.1 pg Mean Corpuscular Hemoglobin Concent 33.0 g/dl Platelet Count 281 K/uL Mean Platelet Volume 8.7 fL Neutrophils (%) (Auto) 80.2 % Lymphocytes (%) (Auto) 10.0 % Monocytes (%) (Auto) 5.5 % Eosinophils (%) (Auto) 0.1 % Basophils (%) (Auto) 0.1 % Neutrophils # (Auto) 11.31 K/uL Lymphocytes # (Auto) 1.42 K/uL Monocytes # (Auto) 0.78 K/uL Eosinophils # (Auto) 0.02 K/uL Basophils # (Auto) 0.02 K/uL Recent Pertinent Medications Outpatient Anti-diabetic Regimen: * Tresiba 110 units daily * Novolog 20 units SC TIDM * A1c = 13.8 % on 04/17/17 The patient is currently receiving: * Insulin drip Risk Factors for Insulin Resistance: * Infection: vanco po, Flagyl po * Pressors: norepinephrine * IVF: D5 w NaBicarb 150 mEq/L @ 75 mL/hr * Diet: NPO Assessment & Plan ASSESSMENT: * 42 yo F with recent admission to [facility] known to our service * Initiated on insulin drip 2nd severity of illness and BSG's > 200 mg/dL. Now running at 6.6 units/hr - not ready to transition to basal/bolus * Will however give lower dose of Lantus (significantly less than home dose), not in an attempt to transition, but to make it so insulin drip rates don't increase as significantly as they currently are (2nd pt receiving Tresiba 110 units yesterday AM per med rec but no basal yet today) and to make transitioning off insulin drip easier when ready * Will initiate at ~ 1/2 of home dose PLAN FOR INPATIENT GLYCEMIC CONTROL: * Continue insulin drip per severe stress protocol, goal range 110-180 mg/dL * Basal insulin with LANTUS 60 units SQ x1 now then 30 units BID (note: this is not an attempt to transition) * Please note that the plan above was derived based on current level of insulin resistance and hospital stress. These recommendations are appropriate for inpatient admission only. Plan of care upon discharge will need to be reassessed to avoid potential outpatient hypo/hyperglycemia. Thank you.
--- NOTE | 2017-05-22 16:15 | ECHOCARDIOGRAM REPORT ---
*NOTICE TO RECEIVING CONSTITUTION PARTY AGENCY This information is strictly Confidential and protected under [place] law. [place] law prohibits you from making any further disclosure of this information unless further disclosure is expressly permitted by the written consent of the person to whom it pertains or is authorized by law. A general authorization for the release of medical or other information is not sufficient for this purpose. Hospital accepts no responsibility if the information is made available to any other person, INCLUDING THE PATIENT. Interpretation Summary * Name: AMBIKA CORCORAN Study Date: 05/22/2017 10:24 AM BP: 125/62 mmHg * Patient Location: .[facility]\S\E106\S\1 HR: 98 * : 1975 (M/d/yyyy) Gender: Female Height: 66 in * Age: 42 yrs Ethnicity: [place] Weight: 188 lb * Ordering Physician: Jerrell Castellanos. * Referring Physician: Self, Referred * Performed By: Pasha Jernigan R[facility] * * Reason For Study: Hypotension * BSA: 1.9 m2 * The study was technically adequate. * There is no comparison study available. * -- Conclusions -- * The left ventricle is hyperdynamic. * Ejection Fraction = >70 %. * No significant valvular pathology. * There is no pericardial effusion. Procedure Details * A complete two-dimensional transthoracic echocardiogram was performed (2D, M-mode, Doppler and color flow Doppler). * There were technical limitations due to patient'ssupine positioning while on mechanical ventilation Left Ventricle * The left ventricle is normal in size. * There is normal left ventricular wall thickness. * Ejection Fraction = >70 %. * The left ventricle is hyperdynamic. * The left ventricular wall motion is normal. Right Ventricle * The right ventricle is normal size. * The right ventricular systolic function is normal as assessed by tricuspid annular plane systolic excursion (TAPSE) (normal >1.5 cm). Atria * The left atrial size is normal. * Right atrial size is normal. * There is no evidence of atrial septal defect, but resolution does not allow assessment for a patent foramen ovale. Mitral Valve * The mitral valve is normal. * There is no mitral valve stenosis. * Significant mitral regurgitation is absent. Tricuspid Valve * The tricuspid valve is normal. * There is no tricuspid stenosis. * There is trace tricuspid regurgitation. * Doppler findings do not suggest pulmonary hypertension. Aortic Valve * The aortic valve is trileaflet. * Aortic stenosis is absent. * There is no significant aortic regurgitation. Pulmonic Valve * The pulmonary valve is not well seen, but the Doppler examination is normal without significant regurgitation or stenosis. Great Vessels * The aortic root is normal size. Pericardium/Pleural * There is no pericardial effusion. Great Vessels * Normal IVC diameter. Left Ventricular Diastolic Function * Grade I diastolic dysfunction, (abnormal relaxation pattern). MMode 2D Measurements and Calculations IVSd 1.1 cm IVSs 1.5 cm LVIDd 4.6 cm LVIDs 2.5 cm LVPWd 1.2 cm LVPWs 1.5 cm IVS/LVPW 0.86 FS 44.9 % EDV(Teich) 98.7 ml ESV(Teich) 23.4 ml EF(Teich) 76.3 % EDV(cubed) 99.1 ml ESV(cubed) 16.5 ml EF(cubed) 83.3 % % IVS thick 41.3 % % LVPW thick 20.5 % LV mass(C)d 193.0 grams LV mass(C)dI 99.1 grams/m\S\2 LV mass(C)s 126.8 grams LV mass(C)sI 65.1 grams/m\S\2 SV(Teich) 75.3 ml SI(Teich) 38.7 ml/m\S\2 SV(cubed) 82.6 ml SI(cubed) 42.4 ml/m\S\2 Ao root diam 3.1 cm Ao root area 7.6 cm\S\2 ACS 1.7 cm LA dimension 3.8 cm asc Aorta Diam 3.1 cm LA/Ao 1.2 EDV(MOD-sp4) 120.0 ml ESV(MOD-sp4) 43.0 ml EF(MOD-sp4) 64.2 % EDV(MOD-sp2) 115.0 ml ESV(MOD-sp2) 46.0 ml EF(MOD-sp2) 60.0 % SV(MOD-sp4) 77.0 ml SI(MOD-sp4) 39.5 ml/m\S\2 SV(MOD-sp2) 69.0 ml SI(MOD-sp2) 35.4 ml/m\S\2 Doppler Measurements and Calculations Ao V2 max 246.4 cm/sec Ao max PG 24.4 mmHg Ao max PG (full) 10.3 mmHg Ao V2 mean 178.1 cm/sec Ao mean PG 14.8 mmHg Ao V2 VTI 41.2 cm LV V1 max PG 14.1 mmHg LV V1 max 187.6 cm/sec SV(Ao) 312.0 ml SI(Ao) 160.2 ml/m\S\2 PA V2 max 155.4 cm/sec PA max PG 9.7 mmHg TR max aleksander 177.0 cm/sec
[2017-05-22] MEDS ORDERED: INSULIN GLARGINE SOLOSTAR 100 UNITS/ML 3 ML PEN SC ONE (16:30)
[2017-05-22 16:32] LABS: ALBUMIN 2.4 gm/dl (3.4-5.0); CALCIUM 6.6 mg/dl (8.5-10.1); CREATININE 1.98 mg/dl (0.60-1.20); POTASSIUM 2.9 mmol/L (3.5-5.1)
[2017-05-22 16:46] LABS: PHOSPHORUS 1.2 mg/dl (2.5-4.9)
--- NOTE | 2017-05-22 17:45 | Critical Care Progress Note ---
Critical Care Progress Note Date of Service May 22, 2017. ICU Day ICU Day Number: [address] Lea Subjective Patient intubated but nods her head stating she has no pain. in room, provided some further background info. No immediate concerns voiced by . Objective General appearance: Awake but keeps eyes closed, intubated, responds to questions, appears comfortable. Head: NCAT. EOMI. Dry oral mucosa. Neck: Left IJ TLC in place, dressing c/d/i. Respiratory: Clear to auscultation. Cardiovascular: +S1S2 borderline but regular tachycardia, no murmurs. Abdomen: + bowel sounds, soft, non-tender throughout. Obese habitus. Old laparotomy scar. Upper extremities: Moves on command. Old multiple distal scars (reportedly prior cat scratches), not acutely erythematous. Lower extremities: No edema. Neuro: Alert, following commands, appears very calm. Assessment & Plan 42 yo female with PMH DM1, staph bacteremia, C diff colitis s/p colectomy, presents with dizziness and vomiting, then AMS. 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 Ammonia 116. UDS negative. This afternoon is awake, answering commands, denies pain. Technically CAM ICU positive, though much improved. - Monitoring ammonia level. Pulmonary: Intubated. On versed and fentanyl (both prn). Last ABG 7.29//11, with improving acidosis. CVS: Initial periods of HTN, resolved. TnI trending up to 0.319, likely demand ischemia. ID: Started on vancomycin and zosyn. 12Feb C diff negative. 11Feb MRSA nasal negative. 11Feb BCx x 2 pending. 12Feb UCx pending. Negative procalcitonin. 12Feb transitioned to PO vanc and PO flagyl. - ID onboard. - D lactic acid level pending. Endo: Hx DM1. Was on metformin at home, held here. On lantus here. Normal TSH. Elevated random cortisol. Renal/metabolic: Initial ABG 6.81/14/116. Started on bicarb push + drip. Started on hemodialysis. Question of source of metabolic acidosis (not DKA). Was on metformin and possibly probiotics at home. Had stopped topamax on last admit. Positive for ASA on admit. - Recommend no further metformin use as outpatient. - Acetaminophen 27. Tx with acetylcysteine (in case of depleted glutathione stores). - Noted OK here (Cr up to 2.75, prior in 1.75). On dialysis here. GI: Elevated lipase, concerns for pancreatitis. 12Feb abdominal u/s notable for hepatic steatosis but no sonographic pancreatic abnormalities. - NPO except meds. On famotidine. Heme: Hb trending downwards to 9.4 (admit 14.3). No suspected bleeding source. - Monitoring. Skin: Chronic scarring s/p cat scratches back in 2017. No peripheral edema. Lines: Right femoral dialysis catheter. Left IJ triple lumen. Left upper arm PIV. Code status: Full code. DVT prophy: Switch from lovenox to heparin. PT/OT consult: Not yet. Disposition: ICU. Resident Physician Supervision Note: Dr. Romero was resident physician during care of patient. I separately evaluated patient and did history and exam. I discussed the case with the resident and generally agree with the findings and plan. During my evaluation the patient was alert and able to follow complex commands. However she had significant respiratory failure and her minute ventilation was actually at 16 L/m. Believe this is secondary to a profound metabolic acidosis. There is no evidence of atypical lactic acidosis, the differential of a high gap metabolic acidosis has largely been ruled out. I cannot exclude a D-lactic acidosis. There is no evidence of active infection, stop the systemic antibiotics. I've instituted both oral vancomycin and oral Flagyl for possible gastrointestinal charmaine imbalance which could be contributing to a D lactic acidosis. There was Tylenol found in her system, I have given her a loading dose of Mucomyst to replete glutathione stores which are also implicated in lactic acidosis pathways. This converted the patient to heparin from Lovenox given the acute kidney injury, I reviewed her echocardiogram which was largely unremarkable. Since this morning with been able to discontinue the Levophed. After this last episode at dialysis her respiratory rate is starting to improve, I'm hoping that we may be over the profound metabolic acidosis and she continues to improve. I have personally spent 90 minutes of critical care time in the direct management of this patient. This is a life/limb threatening event. This includes time spent evaluating patient, direct bedside care, chart review, placing orders, interpretation of diagnostic studies, discussion with consultants, patient, and/or family members regarding treatment decisions, as well as other required patient management activities. This time is exclusive of all separately billable procedures, and teaching time and separate from and in addition to any other critical care service time. Documented By: Ed Lea DO Consults & Procedures Consultants: Infectious disease (Dr. Mares). Nephrology (Dr. Everett) Procedures: - Intubated. - Right femoral dialysis catheter. - Left internal jugular triple lumen catheter. Data Medications: Current Inpatient Medications Medications (Trade) Dose Ordered Sig/Yudy Route Start Time Stop Time Status Last Admin Dose Admin Acetaminophen (Tylenol Tab) 650 mg Q4H PRN PO 05/21/17 18:15 06/20/17 18:14 Atorvastatin Calcium (Lipitor Tab) 10 mg DAILY PO 05/22/17 09:00 06/21/17 08:59 05/22/17 11:02 10 MG Duloxetine HCl (Cymbalta Cap) 60 mg QPM PO 05/21/17 21:00 06/20/17 20:59 Pregabalin (Lyrica Cap) 50 mg QPM PO 05/21/17 21:00 06/20/17 20:59 Miscellaneous Information (Order Awaiting Action) 1 ea QS N/A 05/22/17 08:00 06/21/17 07:59 Dexmedetomidine HCl 200 mcg/ Sodium Chloride 50 ml @ 0 mls/hr Q0M PRN IV 05/21/17 21:11 05/25/17 21:10 Miscellaneous Information (Consult Glycemic Management Pharmacy) 1 ea UD N/A 05/21/17 21:37 06/20/17 21:36 Sodium Bicarbonate 150 meq/Dextrose 1,150 ml @ 75 mls/hr [id number] IV 05/21/17 21:45 06/20/17 21:44 05/22/17 05:08 150 MLS/HR Glucose (Glucose 40% Gel) 15-30 GRAMS 15 GRAMS... UD PRN PO 05/21/17 22:15 06/20/17 22:14 Glucose (Glucose Chew Tab) 4-8 Tablets 4 Tabl... UD PRN PO 05/21/17 22:15 06/20/17 22:14 Dextrose (Dextrose 50% 50ML Syringe) 25-50ML OF 50% DW IV FOR... UD PRN IV 05/21/17 22:15 06/20/17 22:14 Glucagon (Glucagon Inj) 1 mg UD PRN SQ 05/21/17 22:15 06/20/17 22:14 Norepinephrine Bitartrate 8 mg/ Dextrose 508 ml @ 0 mls/hr Q0M PRN IV 05/21/17 22:44 06/20/17 22:43 Heparin Sodium (Porcine) (Heparin 10 Unit/ ml 5 ml Flush) 5 ml PRN PRN FLUSH 05/22/17 02:30 06/21/17 02:29 Insulin Human Regular 250 units/ Sodium Chloride 252.5 ml @ 0 mls/hr Q24H IV 05/22/17 06:00 06/21/17 05:59 05/22/17 06:20 3.2 MLS/HR Insulin Aspart (novoLOG ASPART) SLIDING SCALE PCHS SC 05/22/17 08:00 06/21/17 07:59 Potassium Chloride 20 meq/ Prmx 100 ml @ 50 mls/hr Q2H IV 05/22/17 12:00 05/22/17 15:59 05/22/17 13:25 50 MLS/HR Fentanyl Citrate (Fentanyl Inj) 100 mcg Q2H PRN IV 05/22/17 08:30 06/05/17 08:29 05/22/17 15:14 100 MCG Midazolam HCl (Versed Inj) 2 mg Q2H PRN IV 05/22/17 08:30 06/21/17 08:29 Metronidazole (Flagyl Tab) 500 mg TID PO 05/22/17 09:35 06/05/17 09:34 05/22/17 13:25 500 MG Vancomycin HCl (Vancomycin Oral Soln) 250 mg QID PO 05/22/17 09:36 06/05/17 09:35 05/22/17 13:23 250 MG Raspberry (Raspberry Syrup 5ml Cup) 5 ml QID PO 05/22/17 09:37 06/05/17 09:36 05/22/17 13:25 5 ML Heparin Sodium (Porcine) (Heparin Sq 5000 Unit/0.5ml) 5,000 unit Q8 SC 05/22/17 14:00 06/21/17 13:59 05/22/17 13:24 5,000 UNIT Famotidine 20 mg/ Syringe 5 ml @ 2.5 mls/min DAILY@1100 IV 05/23/17 11:00 06/22/17 10:59 Insulin Glargine (Lantus Solostar Pen) 60 units TODAY@1630 ONCE SC 05/22/17 16:30 05/22/17 16:31 Insulin Glargine (Lantus Solostar Pen) 30 units BID SC 05/23/17 09:00 06/22/17 08:59 I & O: 24-Hour Column 05/23/17 08:00 Intake Total 1467 ml Output Total 650 ml Balance 817 ml Vital Signs: Date Time Temp Pulse Resp B/P (MAP) Pulse Ox O2 Delivery O2 Flow Rate FiO2 05/22/17 15:45 103 119/59 05/22/17 15:30 97 113/47 05/22/17 15:20 97 119/54 05/22/17 15:15 37.5 100 127/57 (80) 05/22/17 14:42 28 05/22/17 14:01 37.4 101 35 113/47 (78) 100 132/58 05/22/17 13:45 28 05/22/17 13:01 37.4 99 35 116/58 (77) 100 128/58 05/22/17 12:01 97 35 110/56 (75) 100 124/55 05/22/17 12:00 28 05/22/17 12:00 Mechanical Ventilator 28 05/22/17 12:00 28 05/22/17 11:10 28 05/22/17 11:01 37.3 94 35 102/58 (74) 100 122/53 05/22/17 10:00 28 05/22/17 09:01 37.0 96 35 120/66 (80) 100 132/55 05/22/17 08:02 96 35 131/75 (83) 100 139/60 05/22/17 08:00 Mechanical Ventilator 28 05/22/17 08:00 21 05/22/17 08:00 28 05/22/17 08:00 28 05/22/17 07:18 28 05/22/17 07:01 93 36 92/70 (86) 100 138/65 05/22/17 06:00 98 40 125/62 (83) 100 05/22/17 05:10 28 05/22/17 05:01 103 26 100/53 (69) 05/22/17 05:00 103 28 106/53 (70) 05/22/17 04:30 36.9 98 116/49 (71) 05/22/17 04:15 100 92/45 05/22/17 04:01 36.5 100 22 100/48 (65) 100 05/22/17 04:00 35 05/22/17 04:00 100 100/51 05/22/17 04:00 100 Room Air 05/22/17 04:00 100 21 91/46 (61) 100 05/22/17 03:46 28 05/22/17 03:45 99 105/53 05/22/17 03:30 96 105/54 05/22/17 03:15 96 92/47 05/22/17 03:01 95 25 99/52 (68) 100 05/22/17 03:00 96 86/47 05/22/17 03:00 95 23 95/52 (66) 100 05/22/17 02:45 93 83/43 05/22/17 02:37 35 05/22/17 02:30 93 98/50 05/22/17 02:15 91 105/51 05/22/17 02:01 89 28 97/48 (64) 100 05/22/17 02:00 89 28 101/50 (67) 100 05/22/17 02:00 89 109/50 05/22/17 01:45 36.4 89 104/50 (68) 05/22/17 01:01 94 30 114/54 (74) 100 05/22/17 01:00 93 21 113/53 (73) 100 05/22/17 00:35 35 05/22/17 00:01 101 21 141/53 (82) 100 05/22/17 00:00 35 05/22/17 00:00 100 Room Air 05/22/17 00:00 36.9 101 23 133/67 (89) 100 05/21/17 23:59 101 16 132/64 (86) 100 05/21/17 23:01 103 30 144/78 (100) 100 05/21/17 23:00 103 30 100 05/21/17 22:36 103 22 93/49 (64) 100 05/21/17 22:35 50 05/21/17 22:35 35 05/21/17 22:32 105 17 92/49 (63) 100 05/21/17 22:29 104 15 131/71 (91) 100 05/21/17 22:26 106 33 160/75 (103) 100 05/21/17 22:23 106 25 140/91 (107) 100 05/21/17 22:00 106 23 100 05/21/17 21:02 103 99 28 05/21/17 21:01 104 21 222/135 (164) 91 05/21/17 21:00 106 24 99 05/21/17 20:01 102 21 240/176 (197) 100 05/21/17 20:00 36.8 103 19 100 05/21/17 20:00 100 Room Air 05/21/17 19:30 36.6 101 22 220/114 05/21/17 18:01 97 162/106 100 Room Air Laboratory Results: Last 24 Hours Test 05/21/17 17:37 05/21/17 17:44 05/21/17 21:16 05/21/17 21:43 Bedside Lactic Acid Venous < 0.30 mmol/L Potassium Level mmol/L 6.4 mmol/L Direct Bilirubin mg/dl < 0.1 mg/dl Aspartate Amino Transf (AST/SGOT) U/L 14 U/L Total Creatine Kinase U/L 70 U/L White Blood Count 29.36 K/uL Red Blood Count 4.47 M/uL Hemoglobin 12.2 g/dL Hematocrit 38.3 % Mean Corpuscular Volume 85.7 fL Mean Corpuscular Hemoglobin 27.3 pg Mean Corpuscular Hemoglobin Concent 31.9 g/dl Platelet Count 387 K/uL Mean Platelet Volume 8.9 fL RDW Standard Deviation 56.5 fL RDW Coefficient of Variation 18.2 % Nucleated RBC Absolute Count (auto) 0.85 K/uL Neutrophils % (Manual) 81.4 % Lymphocytes % (Manual) 8.0 % Monocytes % (Manual) 4.4 % Eosinophils % (Manual) 0.9 % Metamyelocytes % 3.5 % Myelocytes % 1.8 % Nucleated Red Blood Cells % 2.9 % Neutrophils # (Manual) 23.90 K/uL Total Absolute Neutrophils 23.90 K/uL Lymphocytes # (Manual) 2.35 K/uL Total Absolute Lymphocytes 2.35 K/uL Monocytes # (Manual) 1.29 K/uL Eosinophils # (Manual) 0.26 K/uL Metamyelocytes # 1.03 K/uL Myelocytes # 0.53 K/uL Polychromasia 1+ Echinocytes 2+ Sodium Level 131 mmol/L Chloride Level 112 mmol/L Carbon Dioxide Level < 5 mmol/L Anion Gap 15.0 mmol/L Blood Urea Nitrogen 49 mg/dl Creatinine 3.48 mg/dl Est Creatinine Clear Calc Drug Dose 22.6 ml/min Estimated GFR () 17.6 Estimated GFR (Non- 15.2 BUN/Creatinine Ratio 14.0 Random Glucose 111 mg/dl Lactic Acid Level 0.2 mmol/L Calcium Level 7.9 mg/dl Phosphorus Level 4.6 mg/dl Magnesium Level 2.3 mg/dl Total Bilirubin 0.6 mg/dl Alanine Aminotransferase (ALT/SGPT) 13 U/L Alkaline Phosphatase 85 U/L Ammonia 116.8 umol/L Total Protein 7.6 gm/dl Albumin 3.8 gm/dl Globulin 3.8 gm/dl Albumin/Globulin Ratio 1.0 Procalcitonin 0.50 ng/ml Blood Gas Sample Site R Brachial Bedside Blood Gas pH (LAB) 6.81 Bedside Blood Gas pCO2 (LAB) 14 mmHg Bedside Blood Gas pO2 (LAB) 116 mmHg Bedside Blood Gas HCO3 (LAB) 2 meq/L Bedside Blood Gas Total CO2 < 5 mEq/l Bedside Blood Gas Base Excess (LAB) < -30.0 meq/L Bedside Blood Gas O2 Saturation 93.0 % Mickey Test Pass Oxygen Delivery Device Room Air Test 05/22/17 00:05 05/22/17 00:17 05/22/17 00:26 05/22/17 01:31 White Blood Count 17.90 K/uL Red Blood Count 3.81 M/uL Hemoglobin 10.4 g/dL Hematocrit 31.9 % Mean Corpuscular Volume 83.7 fL Mean Corpuscular Hemoglobin 27.3 pg Mean Corpuscular Hemoglobin Concent 32.6 g/dl Platelet Count 253 K/uL Mean Platelet Volume 9.0 fL Neutrophils (%) (Auto) 81.9 % Lymphocytes (%) (Auto) 5.6 % Monocytes (%) (Auto) 4.4 % Eosinophils (%) (Auto) 0.2 % Basophils (%) (Auto) 0.2 % Neutrophils # (Auto) 14.66 K/uL Lymphocytes # (Auto) 1.01 K/uL Monocytes # (Auto) 0.78 K/uL Eosinophils # (Auto) 0.04 K/uL Basophils # (Auto) 0.04 K/uL RDW Standard Deviation 55.5 fL RDW Coefficient of Variation 18.2 % Immature Granulocyte % (Auto) 7.7 % Immature Granulocyte # (Auto) 1.37 K/uL Nucleated RBC Absolute Count (auto) 0.15 K/uL Nucleated Red Blood Cells % 0.9 % Echinocytes 2+ Prothrombin Time 10.7 SECONDS Prothromb Time International Ratio 1.0 Activated Partial Thromboplast Time 30.3 SECONDS Partial Thromboplastin Ratio 1.2 Sodium Level 140 mmol/L 139 mmol/L Potassium Level 3.6 mmol/L 3.5 mmol/L Chloride Level 114 mmol/L 113 mmol/L Carbon Dioxide Level 6 mmol/L 5 mmol/L Anion Gap 20.0 mmol/L 21.0 mmol/L Blood Urea Nitrogen 52 mg/dl 52 mg/dl Creatinine 3.21 mg/dl 3.33 mg/dl Est Creatinine Clear Calc Drug Dose 24.5 ml/min 23.7 ml/min Estimated GFR () 19.4 18.5 Estimated GFR (Non- 16.7 16.0 BUN/Creatinine Ratio 16.2 15.6 Random Glucose 206 mg/dl 222 mg/dl Osmolality 307 mOsm/kg Calcium Level 6.8 mg/dl 6.6 mg/dl Ionized Calcium 1.06 mmol/l Phosphorus Level 3.6 mg/dl Magnesium Level 2.0 mg/dl Total Bilirubin 0.7 mg/dl Aspartate Amino Transf (AST/SGOT) 16 U/L Alanine Aminotransferase (ALT/SGPT) 13 U/L Alkaline Phosphatase 69 U/L Total Protein 6.0 gm/dl Albumin 3.0 gm/dl Globulin 3.0 gm/dl Albumin/Globulin Ratio 1.0 Amylase Level 172 U/L Lipase 2866 U/L Salicylates Level 18.8 mg/dl Acetaminophen Level 27 ug/ml Ethyl Alcohol mg/dL < 3.0 mg/dl Blood Gas Sample Site Art Line Bedside Blood Gas pH (LAB) 7.07 Bedside Blood Gas pCO2 (LAB) 18 mmHg Bedside Blood Gas pO2 (LAB) 245 mmHg Bedside Blood Gas HCO3 (LAB) 5 meq/L Bedside Blood Gas Total CO2 6 mEq/l Bedside Blood Gas Base Excess (LAB) -25.0 meq/L Bedside Blood Gas O2 Saturation 100.0 % Mickey Test NA Oxygen Delivery Device Ventilator Bedside Oxygen Rate (breaths/min) 30 Blood Gas Minute Ventilation 17.9 Bedside FiO2 50 % Blood Gas Tidal Volume 450 Blood Gas PEEP 5 Bedside Glucose (other) 197 mg/dl Troponin I 0.022 ng/ml Hepatitis B Surface Antigen NEG Hepatitis B Surface Antibody NEG Test 05/22/17 02:17 05/22/17 03:38 05/22/17 04:57 05/22/17 05:44 Urine Color YELLOW Urine Appearance CLEAR Urine pH 5.0 Urine Specific [place] 1.014 Urine Protein 2+ Urine Glucose (UA) NEG Urine Ketones NEG Urine Occult Blood TRACE Urine Nitrite NEG Urine Bilirubin NEG Urine Urobilinogen NEG Urine Leukocyte Esterase TRACE Urine WBC (Auto) 5-10 /hpf Urine RBC (Auto) 0-4 /hpf Urine Hyaline Casts (Auto) 1-5 /lpf Urine Epithelial Cells (Auto) >30 /lpf Urine Bacteria (Auto) NEG Urine Renal Epithelial Cells /lpf Urine Yeast (Auto) Urine Osmolality 338 mOms/kg Urine Random Creatinine 29.1 mg/dl Urine Random Sodium 93 mEq/L Urine Random Potassium 29.2 mEq/L Urine Random Chloride 98 mEq/L Urine Opiates Screen NEG Urine Methadone, Qualitative NEG Urine Barbiturates NEG Urine Phencyclidine (PCP) Level NEG Ur Amphetamine/Methamphetamine NEG MDMA (Ecstasy) Screen NEG Urine Benzodiazepines Screen NEG Urine Cocaine Metabolite NEG Urine Marijuana (THC) NEG Blood Gas Sample Site Art Line Bedside Blood Gas pH (LAB) 7.35 Bedside Blood Gas pCO2 (LAB) 18 mmHg Bedside Blood Gas pO2 (LAB) 206 mmHg Bedside Blood Gas HCO3 (LAB) 10 meq/L Bedside Blood Gas Total CO2 11 mEq/l Bedside Blood Gas Base Excess (LAB) -16.0 meq/L Bedside Blood Gas O2 Saturation 100.0 % Mickey Test NA Oxygen Delivery Device Ventilator Bedside Oxygen Rate (breaths/min) 35 Blood Gas Minute Ventilation 20.5 Bedside FiO2 35 % Blood Gas Tidal Volume 450 Blood Gas PEEP 5 White Blood Count 14.13 K/uL Red Blood Count 3.47 M/uL Hemoglobin 9.4 g/dL Hematocrit 28.5 % Mean Corpuscular Volume 82.1 fL Mean Corpuscular Hemoglobin 27.1 pg Mean Corpuscular Hemoglobin Concent 33.0 g/dl Platelet Count 281 K/uL Mean Platelet Volume 8.7 fL Neutrophils (%) (Auto) 80.2 % Lymphocytes (%) (Auto) 10.0 % Monocytes (%) (Auto) 5.5 % Eosinophils (%) (Auto) 0.1 % Basophils (%) (Auto) 0.1 % Neutrophils # (Auto) 11.31 K/uL Lymphocytes # (Auto) 1.42 K/uL Monocytes # (Auto) 0.78 K/uL Eosinophils # (Auto) 0.02 K/uL Basophils # (Auto) 0.02 K/uL RDW Standard Deviation 54.4 fL RDW Coefficient of Variation 18.3 % Immature Granulocyte % (Auto) 4.1 % Immature Granulocyte # (Auto) 0.58 K/uL Nucleated RBC Absolute Count (auto) 0.14 K/uL Nucleated Red Blood Cells % 1.0 % Echinocytes 1+ Sodium Level 137 mmol/L Potassium Level 2.7 mmol/L Chloride Level 108 mmol/L Carbon Dioxide Level 10 mmol/L Anion Gap 19.0 mmol/L Blood Urea Nitrogen 33 mg/dl Creatinine 2.24 mg/dl Est Creatinine Clear Calc Drug Dose 35.3 ml/min Estimated GFR () 29.9 Estimated GFR (Non- 25.8 BUN/Creatinine Ratio 14.6 Random Glucose 212 mg/dl Lactic Acid Level 0.7 mmol/L Calcium Level 6.7 mg/dl Ionized Calcium 1.01 mmol/l Phosphorus Level 2.6 mg/dl Magnesium Level 1.7 mg/dl Total Bilirubin 0.6 mg/dl Aspartate Amino Transf (AST/SGOT) 20 U/L Alanine Aminotransferase (ALT/SGPT) 13 U/L Alkaline Phosphatase 59 U/L Total Creatine Kinase 63 U/L Troponin I 0.088 ng/ml Total Protein 5.6 gm/dl Albumin 2.8 gm/dl Globulin 2.8 gm/dl Albumin/Globulin Ratio 1.0 Amylase Level 139 U/L Lipase 1735 U/L Bedside Glucose (other) 233 mg/dl Test 05/22/17 07:46 05/22/17 08:54 05/22/17 09:27 05/22/17 09:31 Bedside Glucose (other) 212 mg/dl 207 mg/dl Sodium Level 137 mmol/L Potassium Level 2.6 mmol/L Chloride Level 106 mmol/L Carbon Dioxide Level 11 mmol/L Anion Gap 19.0 mmol/L Blood Urea Nitrogen 35 mg/dl Creatinine 2.57 mg/dl Est Creatinine Clear Calc Drug Dose 30.8 ml/min Estimated GFR () 25.3 Estimated GFR (Non- 21.9 BUN/Creatinine Ratio 13.8 Random Glucose 248 mg/dl Lactic Acid Level 0.1 mmol/L Calcium Level 6.7 mg/dl Ionized Calcium 1.03 mmol/l Phosphorus Level 3.0 mg/dl Magnesium Level 2.1 mg/dl Total Bilirubin 0.6 mg/dl Aspartate Amino Transf (AST/SGOT) 14 U/L Alanine Aminotransferase (ALT/SGPT) 14 U/L Alkaline Phosphatase 51 U/L Total Creatine Kinase 70 U/L Total Protein 5.3 gm/dl Albumin 2.6 gm/dl Globulin 2.7 gm/dl Albumin/Globulin Ratio 1.0 Lipase 1885 U/L Random Vancomycin Level 20.9 mcg/ml Salicylates Level 10.2 mg/dl Acetaminophen Level 10 ug/ml Blood Gas Sample Site Art Line Bedside Blood Gas pH (LAB) 7.25 Bedside Blood Gas pCO2 (LAB) 22 mmHg Bedside Blood Gas pO2 (LAB) 148 mmHg Bedside Blood Gas HCO3 (LAB) 10 meq/L Bedside Blood Gas Total CO2 10 mEq/l Bedside Blood Gas Base Excess (LAB) -18.0 meq/L Bedside Blood Gas O2 Saturation 99.0 % Mickey Test NA Oxygen Delivery Device Ventilator Bedside Oxygen Rate (breaths/min) 35 Blood Gas Minute Ventilation 15.7 Bedside FiO2 28 % Blood Gas Tidal Volume 450 Blood Gas PEEP 5 Test 05/22/17 09:38 05/22/17 10:31 05/22/17 10:40 05/22/17 11:39 Bedside Glucose (other) 237 mg/dl 203 mg/dl Random Cortisol 36.08 mcg/dl Bedside Glucose 245 mg/dl Test 05/22/17 12:06 05/22/17 13:40 05/22/17 16:03 05/22/17 16:30 Sodium Level 138 mmol/L 137 mmol/L Potassium Level 2.7 mmol/L 2.9 mmol/L Chloride Level 107 mmol/L 106 mmol/L Carbon Dioxide Level 12 mmol/L 16 mmol/L Anion Gap 19.0 mmol/L 15.0 mmol/L Blood Urea Nitrogen 35 mg/dl 26 mg/dl Creatinine 2.75 mg/dl 1.98 mg/dl Est Creatinine Clear Calc Drug Dose 28.7 ml/min 39.9 ml/min Estimated GFR () 23.4 34.7 Estimated GFR (Non- 20.2 30.0 BUN/Creatinine Ratio 12.7 12.9 Random Glucose 241 mg/dl 140 mg/dl Lactic Acid Level 0.1 mmol/L 0.3 mmol/L Calcium Level 6.5 mg/dl 6.6 mg/dl Ionized Calcium 1.00 mmol/l 0.95 mmol/l Phosphorus Level 2.3 mg/dl 1.2 mg/dl Magnesium Level 2.1 mg/dl 1.8 mg/dl Total Bilirubin 0.5 mg/dl 0.4 mg/dl Aspartate Amino Transf (AST/SGOT) 13 U/L 14 U/L Alanine Aminotransferase (ALT/SGPT) 16 U/L 12 U/L Alkaline Phosphatase 48 U/L 50 U/L Total Creatine Kinase 79 U/L 81 U/L Troponin I 0.319 ng/ml Total Protein 5.0 gm/dl 5.0 gm/dl Albumin 2.3 gm/dl 2.4 gm/dl Globulin 2.7 gm/dl 2.6 gm/dl Albumin/Globulin Ratio 0.9 0.9 Lipase 2453 U/L 1443 U/L Blood Gas Sample Site Art Line Art Line Bedside Blood Gas pH (LAB) 7.29 7.40 Bedside Blood Gas pCO2 (LAB) 23 mmHg 27 mmHg Bedside Blood Gas pO2 (LAB) 151 mmHg 147 mmHg Bedside Blood Gas HCO3 (LAB) 11 meq/L 16 meq/L Bedside Blood Gas Total CO2 12 mEq/l 17 mEq/l Bedside Blood Gas Base Excess (LAB) -15.0 meq/L -9.0 meq/L Bedside Blood Gas O2 Saturation 99.0 % 99.0 % Mickey Test NA NA Oxygen Delivery Device Ventilator Ventilator Bedside Oxygen Rate (breaths/min) 35 35 Blood Gas Minute Ventilation 15.6 15.8 Bedside FiO2 28 % 28 % Blood Gas Tidal Volume 450 450 Blood Gas PEEP 5 5 Resident Tracking Resident Involvement: Resident Care Provided Care Provided: Adult Hospital Medicine (ICU care)
[2017-05-22] MEDS ORDERED: ENOXAPARIN 30 MG/0.3 ML SYR SQ SCH (18:15)
[2017-05-22 20:39] LABS: ALBUMIN 2.6 gm/dl (3.4-5.0); CALCIUM 6.8 mg/dl (8.5-10.1); CREATININE 1.42 mg/dl (0.60-1.20); POTASSIUM 2.3 mmol/L (3.5-5.1)
[2017-05-22 20:46] LABS: TOTAL PROTEIN 5.5 gm/dl (6.4-8.2)
[2017-05-22] MEDS ORDERED: POTASSIUM PHOS 3 MMOL/1 ML INFUSION IV STA (21:08)
[2017-05-22] MEDS ORDERED: POTASSIUM CHLORIDE 20 MEQ/15 ML UDC PO STA (21:16)
[2017-05-22] MEDS ORDERED: POTASSIUM PHOSPHATE INJ 30 MMOL in SODIUM CHLORIDE 0.9% 500ML 500 ML IV ONE (21:30)
[2017-05-22] MEDS: PREGABALIN 50 MG CAP PO SCH (22:04)
[2017-05-22] MEDS: DULOXETINE HCL 60 MG CAP PO SCH (22:05)
[2017-05-23] VITALS (73 sets, daily range): BP systolic 118–164; BP diastolic 57–86; PULSE 107–126; TEMP 36.4–37.6; O2SAT 95–100
[2017-05-23 00:09] LABS: ALBUMIN 2.8 gm/dl (3.4-5.0); CALCIUM 6.6 mg/dl (8.5-10.1); CREATININE 1.71 mg/dl (0.60-1.20); POTASSIUM 3.1 mmol/L (3.5-5.1)
[2017-05-23 00:22] LABS: PHOSPHORUS 2.1 mg/dl (2.5-4.9); TOTAL PROTEIN 5.5 gm/dl (6.4-8.2)
[2017-05-23] MEDS: MAGNESIUM SULFATE 1GM / D5W 1 GM in PREMIXED IN D5W 100 ML IV SCH ×2 (01:03→02:09)
[2017-05-23] MEDS: FENTANYL CITRATE INJ 50 MCG/1 ML 2 ML VIAL IV PRN (03:30)
[2017-05-23 04:33] LABS: BASO % 0.1 %; BASO ABS # 0.01 K/uL (0-0.2); EOS % 0.1 %; EOS ABS # 0.01 K/uL (0-0.5); HEMATOCRIT 23.7 % (37-47); HEMOGLOBIN 8.2 g/dL (12.0-16.0); IG# 0.07 K/uL (0.00-0.02); LYMPH % 8.6 %; LYMPH ABS # 0.72 K/uL (1.2-3.4); MEAN CELL VOLUME 78.2 fL (80-100); MEAN CORPUSCULAR HEMOGLOBIN 27.1 pg (25-34); MEAN CORPUSCULAR HGB CONC 34.6 g/dl (32-36); MONO % 6.1 %; MONO ABS # 0.51 K/uL (0.11-0.59); NEUT % 84.3 %; NEUT ABS # 7.09 K/uL (1.4-6.5); NUCLEATED RED BLOOD CELL ABS 0.03 K/uL (0-0); PLATELET COUNT 245 K/uL (130-400); RED CELL DISTRIBUTION WIDTH SD 53.6 fL (36.4-46.3); WHITE BLOOD COUNT 8.41 K/uL (4.8-10.8)
[2017-05-23 04:49] LABS: ALBUMIN 2.7 gm/dl (3.4-5.0); CALCIUM 6.5 mg/dl (8.5-10.1); CREATININE 1.86 mg/dl (0.60-1.20); POTASSIUM 2.7 mmol/L (3.5-5.1)
[2017-05-23 04:57] LABS: PHOSPHORUS 3.5 mg/dl (2.5-4.9); TOTAL PROTEIN 5.6 gm/dl (6.4-8.2)
[2017-05-23] MEDS: HEPARIN SOD 5000 UNIT/0.5 ML CARP SC SCH ×3 (06:06→20:31)
[2017-05-23] MEDS: INSULIN REGULAR 250 UNITS in SODIUM CHLORIDE 0.9% 250ML 250 ML IV SCH ×2 (06:15→20:33)
--- NOTE | 2017-05-23 06:32 | Nephrology Progress Note ---
Nephrology Progress Note Date of Service: May 23, 2017. Subjective 42 yo female with underlying ckd stage 4 with baseline creatinine of 2.2 who presented with significant acidosis and subsequently intubated. pt awake and responding to commands and weaning off the vent this morning. tolerating dialysis well. Objective Date Time Temp Pulse Resp B/P (MAP) Pulse Ox O2 Delivery O2 Flow Rate FiO2 05/23/17 06:00 120 17 151/76 (101) 100 Mechanical Ventilator 28 05/23/17 05:18 28 05/23/17 04:00 37.3 116 24 135/69 (91) 100 Mechanical Ventilator 28 05/23/17 04:00 100 Mechanical Ventilator 28 05/23/17 04:00 28 05/23/17 02:15 28 05/23/17 02:00 117 24 151/59 (89) 100 Mechanical Ventilator 28 05/23/17 00:01 37.2 110 24 130/70 (90) 100 Mechanical Ventilator 28 05/22/17 23:59 28 05/22/17 23:59 100 Mechanical Ventilator 28 05/22/17 23:20 28 05/22/17 22:00 108 24 170/77 (108) 99 Mechanical Ventilator 28 05/22/17 20:07 28 05/22/17 20:05 28 05/22/17 20:00 37.4 110 28 137/75 (95) 100 Mechanical Ventilator 28 05/22/17 20:00 28 05/22/17 20:00 100 Mechanical Ventilator 28 05/22/17 18:40 36.9 102 113/62 (79) 05/22/17 18:15 106 101/56 05/22/17 18:15 28 05/22/17 18:05 28 05/22/17 18:01 37.2 106 35 113/63 (76) 100 113/60 05/22/17 18:00 106 118/61 05/22/17 17:46 37.2 110 35 107/61 (77) 100 117/61 05/22/17 17:45 110 110/59 05/22/17 17:31 37.2 124 35 120/69 (92) 99 165/68 05/22/17 17:30 134 149/65 05/22/17 17:16 37.2 107 35 124/64 (80) 100 127/62 05/22/17 17:15 107 135/64 18 17:01 37.2 108 35 112/64 (74) 100 117/59 2/18 17:00 108 119/60 2/18 16:46 37.2 105 35 112/63 (72) 100 115/57 2/18 16:45 107 117/57 218 16:31 37.2 106 35 115/59 (74) 100 120/58 218 16:30 106 118/59 218 16:16 37.2 106 35 112/56 (70) 100 113/55 218 16:15 106 113/55 218 16:00 28 05/22/17 16:00 37.3 102 35 101/56 (71) 100 115/57 05/22/17 16:00 Mechanical Ventilator 28 05/22/17 16:00 102 101/56 05/22/17 15:46 37.3 104 35 110/62 (75) 100 118/58 18 15:45 103 119/59 218 15:31 37.3 101 35 120/57 (73) 100 117/56 218 15:30 97 113/47 218 15:23 37.4 97 35 113/47 (71) 100 111/53 218 15:20 97 119/54 218 15:16 37.5 101 35 117/62 (78) 100 132/58 218 15:15 37.5 100 127/57 (80) 18 15:01 37.5 101 35 128/56 (74) 100 124/55 218 14:42 28 18 14:01 37.4 101 35 113/47 (78) 100 132/58 218 13:45 28 18 13:01 37.4 99 35 116/58 (77) 100 128/58 218 12:01 97 35 110/56 (75) 100 124/55 218 12:00 28 05/22/17 12:00 Mechanical Ventilator 28 05/22/17 12:00 28 05/22/17 11:10 28 05/22/17 11:01 37.3 94 35 102/58 (74) 100 122/53 05/22/17 10:00 28 05/22/17 09:01 37.0 96 35 120/66 (80) 100 132/55 05/22/17 08:02 96 35 131/75 (83) 100 139/60 05/22/17 08:00 Mechanical Ventilator 28 05/22/17 08:00 21 05/22/17 08:00 28 05/22/17 08:00 28 05/22/17 07:18 28 05/22/17 07:01 93 36 92/70 (86) 100 138/65 Physical Exam: General-awake on vent Eyes-no scleral icterus ENT-mmm/intubated Neck-supple Lungs-clear Heart-tachy Abdomen-bs+ s/nt/nd Extremities-no c/c/e Neuro-awake on vent Current Inpatient Medications Medications (Trade) Dose Ordered Sig/Yudy Route Start Time Stop Time Status Last Admin Dose Admin Acetaminophen (Tylenol Tab) 650 mg Q4H PRN PO 05/21/17 18:15 06/20/17 18:14 Atorvastatin Calcium (Lipitor Tab) 10 mg DAILY PO 05/22/17 09:00 06/21/17 08:59 05/22/17 11:02 10 MG Duloxetine HCl (Cymbalta Cap) 60 mg QPM PO 05/21/17 21:00 06/20/17 20:59 05/22/17 22:05 60 MG Pregabalin (Lyrica Cap) 50 mg QPM PO 05/21/17 21:00 06/20/17 20:59 05/22/17 22:04 50 MG Miscellaneous Information (Order Awaiting Action) 1 ea QS N/A 05/22/17 08:00 06/21/17 07:59 Dexmedetomidine HCl 200 mcg/ Sodium Chloride 50 ml @ 0 mls/hr Q0M PRN IV 05/21/17 21:11 05/25/17 21:10 Miscellaneous Information (Consult Glycemic Management Pharmacy) 1 ea UD N/A 05/21/17 21:37 06/20/17 21:36 Sodium Bicarbonate 150 meq/Dextrose 1,150 ml @ 75 mls/hr [id number] IV 05/21/17 21:45 06/20/17 21:44 05/22/17 17:33 75 MLS/HR Glucose (Glucose 40% Gel) 15-30 GRAMS 15 GRAMS... UD PRN PO 05/21/17 22:15 06/20/17 22:14 Glucose (Glucose Chew Tab) 4-8 Tablets 4 Tabl... UD PRN PO 05/21/17 22:15 06/20/17 22:14 Dextrose (Dextrose 50% 50ML Syringe) 25-50ML OF 50% DW IV FOR... UD PRN IV 05/21/17 22:15 06/20/17 22:14 Glucagon (Glucagon Inj) 1 mg UD PRN SQ 05/21/17 22:15 06/20/17 22:14 Norepinephrine Bitartrate 8 mg/ Dextrose 508 ml @ 0 mls/hr Q0M PRN IV 05/21/17 22:44 06/20/17 22:43 Heparin Sodium (Porcine) (Heparin 10 Unit/ ml 5 ml Flush) 5 ml PRN PRN FLUSH 05/22/17 02:30 06/21/17 02:29 Insulin Human Regular 250 units/ Sodium Chloride 252.5 ml @ 0 mls/hr Q24H IV 05/22/17 06:00 06/21/17 05:59 05/23/17 06:15 2.4 MLS/HR Insulin Aspart (novoLOG ASPART) [facility] 05/22/17 08:00 06/21/17 07:59 Fentanyl Citrate (Fentanyl Inj) 100 mcg Q2H PRN IV 05/22/17 08:30 06/05/17 08:29 05/23/17 03:30 100 MCG Midazolam HCl (Versed Inj) 2 mg Q2H PRN IV 05/22/17 08:30 06/21/17 08:29 05/22/17 17:33 2 MG Metronidazole (Flagyl Tab) 500 mg TID PO 05/22/17 09:35 06/05/17 09:34 05/22/17 22:05 500 MG Vancomycin HCl (Vancomycin Oral Soln) 250 mg QID PO 05/22/17 09:36 06/05/17 09:35 05/22/17 22:11 250 MG Raspberry (Raspberry Syrup 5ml Cup) 5 ml QID PO 05/22/17 09:37 06/05/17 09:36 05/22/17 22:05 5 ML Heparin Sodium (Porcine) (Heparin Sq 5000 Unit/0.5ml) 5,000 unit Q8 SC 05/22/17 14:00 06/21/17 13:59 05/23/17 06:06 5,000 UNIT Famotidine 20 mg/ Syringe 5 ml @ 2.5 mls/min DAILY@1100 IV 05/23/17 11:00 06/22/17 10:59 Insulin Glargine (Lantus Solostar Pen) 30 units BID SC 05/23/17 09:00 06/22/17 08:59 Potassium Chloride 40 meq/ Prmx 100 ml @ 50 mls/hr NOW STAT IV 05/23/17 06:22 05/23/17 08:21 UNV Potassium Chloride 40 meq/ Prmx 100 ml @ 50 mls/hr ONE ONCE IV 05/23/17 12:00 05/23/17 13:59 UNV Last 24 Hours Test 05/22/17 07:46 05/22/17 08:54 05/22/17 09:27 05/22/17 09:31 Bedside Glucose (other) 212 mg/dl 207 mg/dl Sodium Level 137 mmol/L Potassium Level 2.6 mmol/L Chloride Level 106 mmol/L Carbon Dioxide Level 11 mmol/L Anion Gap 19.0 mmol/L Blood Urea Nitrogen 35 mg/dl Creatinine 2.57 mg/dl Est Creatinine Clear Calc Drug Dose 30.8 ml/min Estimated GFR () 25.3 Estimated GFR (Non- 21.9 BUN/Creatinine Ratio 13.8 Random Glucose 248 mg/dl Lactic Acid Level 0.1 mmol/L Calcium Level 6.7 mg/dl Ionized Calcium 1.03 mmol/l Phosphorus Level 3.0 mg/dl Magnesium Level 2.1 mg/dl Total Bilirubin 0.6 mg/dl Aspartate Amino Transf (AST/SGOT) 14 U/L Alanine Aminotransferase (ALT/SGPT) 14 U/L Alkaline Phosphatase 51 U/L Total Creatine Kinase 70 U/L Total Protein 5.3 gm/dl Albumin 2.6 gm/dl Globulin 2.7 gm/dl Albumin/Globulin Ratio 1.0 Lipase 1885 U/L Random Vancomycin Level 20.9 mcg/ml Salicylates Level 10.2 mg/dl Acetaminophen Level 10 ug/ml Blood Gas Sample Site Art Line Bedside Blood Gas pH (LAB) 7.25 Bedside Blood Gas pCO2 (LAB) 22 mmHg Bedside Blood Gas pO2 (LAB) 148 mmHg Bedside Blood Gas HCO3 (LAB) 10 meq/L Bedside Blood Gas Total CO2 10 mEq/l Bedside Blood Gas Base Excess (LAB) -18.0 meq/L Bedside Blood Gas O2 Saturation 99.0 % Mickey Test NA Oxygen Delivery Device Ventilator Bedside Oxygen Rate (breaths/min) 35 Blood Gas Minute Ventilation 15.7 Bedside FiO2 28 % Blood Gas Tidal Volume 450 Blood Gas PEEP 5 Test 05/22/17 09:38 05/22/17 10:31 05/22/17 10:40 05/22/17 11:39 Bedside Glucose (other) 237 mg/dl 203 mg/dl Random Cortisol 36.08 mcg/dl Bedside Glucose 245 mg/dl Test 05/22/17 12:06 05/22/17 13:40 05/22/17 13:57 05/22/17 15:17 Sodium Level 138 mmol/L Potassium Level 2.7 mmol/L Chloride Level 107 mmol/L Carbon Dioxide Level 12 mmol/L Anion Gap 19.0 mmol/L Blood Urea Nitrogen 35 mg/dl Creatinine 2.75 mg/dl Est Creatinine Clear Calc Drug Dose 28.7 ml/min Estimated GFR () 23.4 Estimated GFR (Non- 20.2 BUN/Creatinine Ratio 12.7 Random Glucose 241 mg/dl Lactic Acid Level 0.1 mmol/L Calcium Level 6.5 mg/dl Ionized Calcium 1.00 mmol/l Phosphorus Level 2.3 mg/dl Magnesium Level 2.1 mg/dl Total Bilirubin 0.5 mg/dl Aspartate Amino Transf (AST/SGOT) 13 U/L Alanine Aminotransferase (ALT/SGPT) 16 U/L Alkaline Phosphatase 48 U/L Total Creatine Kinase 79 U/L Troponin I 0.319 ng/ml Total Protein 5.0 gm/dl Albumin 2.3 gm/dl Globulin 2.7 gm/dl Albumin/Globulin Ratio 0.9 Lipase 2453 U/L Blood Gas Sample Site Art Line Bedside Blood Gas pH (LAB) 7.29 Bedside Blood Gas pCO2 (LAB) 23 mmHg Bedside Blood Gas pO2 (LAB) 151 mmHg Bedside Blood Gas HCO3 (LAB) 11 meq/L Bedside Blood Gas Total CO2 12 mEq/l Bedside Blood Gas Base Excess (LAB) -15.0 meq/L Bedside Blood Gas O2 Saturation 99.0 % Mickey Test NA Oxygen Delivery Device Ventilator Bedside Oxygen Rate (breaths/min) 35 Blood Gas Minute Ventilation 15.6 Bedside FiO2 28 % Blood Gas Tidal Volume 450 Blood Gas PEEP 5 Bedside Glucose 238 mg/dl 203 mg/dl Test 05/22/17 16:03 05/22/17 16:13 05/22/17 16:30 05/22/17 17:38 Sodium Level 137 mmol/L Potassium Level 2.9 mmol/L Chloride Level 106 mmol/L Carbon Dioxide Level 16 mmol/L Anion Gap 15.0 mmol/L Blood Urea Nitrogen 26 mg/dl Creatinine 1.98 mg/dl Est Creatinine Clear Calc Drug Dose 39.9 ml/min Estimated GFR () 34.7 Estimated GFR (Non- 30.0 BUN/Creatinine Ratio 12.9 Random Glucose 140 mg/dl Lactic Acid Level 0.3 mmol/L Calcium Level 6.6 mg/dl Ionized Calcium 0.95 mmol/l Phosphorus Level 1.2 mg/dl Magnesium Level 1.8 mg/dl Total Bilirubin 0.4 mg/dl Aspartate Amino Transf (AST/SGOT) 14 U/L Alanine Aminotransferase (ALT/SGPT) 12 U/L Alkaline Phosphatase 50 U/L Total Creatine Kinase 81 U/L Total Protein 5.0 gm/dl Albumin 2.4 gm/dl Globulin 2.6 gm/dl Albumin/Globulin Ratio 0.9 Lipase 1443 U/L Bedside Glucose 144 mg/dl 112 mg/dl Blood Gas Sample Site Art Line Bedside Blood Gas pH (LAB) 7.40 Bedside Blood Gas pCO2 (LAB) 27 mmHg Bedside Blood Gas pO2 (LAB) 147 mmHg Bedside Blood Gas HCO3 (LAB) 16 meq/L Bedside Blood Gas Total CO2 17 mEq/l Bedside Blood Gas Base Excess (LAB) -9.0 meq/L Bedside Blood Gas O2 Saturation 99.0 % Mickey Test NA Oxygen Delivery Device Ventilator Bedside Oxygen Rate (breaths/min) 35 Blood Gas Minute Ventilation 15.8 Bedside FiO2 28 % Blood Gas Tidal Volume 450 Blood Gas PEEP 5 Test 05/22/17 18:46 05/22/17 20:00 05/22/17 20:10 05/22/17 21:16 Bedside Glucose 109 mg/dl 103 mg/dl Sodium Level 134 mmol/L Potassium Level 2.3 mmol/L Chloride Level 100 mmol/L Carbon Dioxide Level 21 mmol/L Anion Gap 14.0 mmol/L Blood Urea Nitrogen 15 mg/dl Creatinine 1.42 mg/dl Est Creatinine Clear Calc Drug Dose 55.7 ml/min Estimated GFR () 51.9 Estimated GFR (Non- 44.8 BUN/Creatinine Ratio 10.6 Random Glucose 103 mg/dl Lactic Acid Level 0.4 mmol/L Calcium Level 6.8 mg/dl Ionized Calcium 0.88 mmol/l Phosphorus Level 1.0 mg/dl Magnesium Level 1.7 mg/dl Total Bilirubin 0.4 mg/dl Aspartate Amino Transf (AST/SGOT) 17 U/L Alanine Aminotransferase (ALT/SGPT) 13 U/L Alkaline Phosphatase 47 U/L Total Creatine Kinase 102 U/L Total Protein 5.5 gm/dl Albumin 2.6 gm/dl Globulin 2.9 gm/dl Albumin/Globulin Ratio 0.9 Lipase 830 U/L Bedside Glucose (other) 105 mg/dl Test 05/22/17 22:07 05/22/17 23:01 05/22/17 23:41 05/22/17 23:42 Bedside Glucose 112 mg/dl 122 mg/dl 135 mg/dl Sodium Level 135 mmol/L Potassium Level 3.1 mmol/L Chloride Level 100 mmol/L Carbon Dioxide Level 22 mmol/L Anion Gap 13.0 mmol/L Blood Urea Nitrogen 17 mg/dl Creatinine 1.71 mg/dl Est Creatinine Clear Calc Drug Dose 46.2 ml/min Estimated GFR () 41.5 Estimated GFR (Non- 35.8 BUN/Creatinine Ratio 9.8 Random Glucose 134 mg/dl Lactic Acid Level 0.7 mmol/L Calcium Level 6.6 mg/dl Ionized Calcium 0.87 mmol/l Phosphorus Level 2.1 mg/dl Magnesium Level 1.7 mg/dl Total Bilirubin 0.5 mg/dl Aspartate Amino Transf (AST/SGOT) 16 U/L Alanine Aminotransferase (ALT/SGPT) 14 U/L Alkaline Phosphatase 49 U/L Total Creatine Kinase 136 U/L Total Protein 5.5 gm/dl Albumin 2.8 gm/dl Globulin 2.7 gm/dl Albumin/Globulin Ratio 1.0 Lipase 681 U/L Test 05/23/17 01:07 05/23/17 02:07 05/23/17 03:58 05/23/17 04:23 Bedside Glucose 141 mg/dl 165 mg/dl 183 mg/dl White Blood Count 8.41 K/uL Red Blood Count 3.03 M/uL Hemoglobin 8.2 g/dL Hematocrit 23.7 % Mean Corpuscular Volume 78.2 fL Mean Corpuscular Hemoglobin 27.1 pg Mean Corpuscular Hemoglobin Concent 34.6 g/dl Platelet Count 245 K/uL Mean Platelet Volume 8.0 fL Neutrophils (%) (Auto) 84.3 % Lymphocytes (%) (Auto) 8.6 % Monocytes (%) (Auto) 6.1 % Eosinophils (%) (Auto) 0.1 % Basophils (%) (Auto) 0.1 % Neutrophils # (Auto) 7.09 K/uL Lymphocytes # (Auto) 0.72 K/uL Monocytes # (Auto) 0.51 K/uL Eosinophils # (Auto) 0.01 K/uL Basophils # (Auto) 0.01 K/uL RDW Standard Deviation 53.6 fL RDW Coefficient of Variation 19.0 % Immature Granulocyte % (Auto) 0.8 % Immature Granulocyte # (Auto) 0.07 K/uL Nucleated RBC Absolute Count (auto) 0.03 K/uL Nucleated Red Blood Cells % 0.3 % Toxic Vacuolation 2+ Erythrocyte Sedimentation Rate 5 mm/hr Sodium Level 135 mmol/L Potassium Level 2.7 mmol/L Chloride Level 100 mmol/L Carbon Dioxide Level 18 mmol/L Anion Gap 17.0 mmol/L Blood Urea Nitrogen 16 mg/dl Creatinine 1.86 mg/dl Est Creatinine Clear Calc Drug Dose 42.5 ml/min Estimated GFR () 37.5 Estimated GFR (Non- 32.3 BUN/Creatinine Ratio 8.6 Random Glucose 186 mg/dl Lactic Acid Level 0.5 mmol/L Calcium Level 6.5 mg/dl Ionized Calcium 0.83 mmol/l Phosphorus Level 3.5 mg/dl Magnesium Level 2.4 mg/dl Total Bilirubin 0.4 mg/dl Aspartate Amino Transf (AST/SGOT) 15 U/L Alanine Aminotransferase (ALT/SGPT) 14 U/L Alkaline Phosphatase 49 U/L Total Creatine Kinase 136 U/L Total Protein 5.6 gm/dl Albumin 2.7 gm/dl Globulin 2.9 gm/dl Albumin/Globulin Ratio 0.9 Lipase 493 U/L Test 05/23/17 05:06 05/23/17 05:07 05/23/17 05:59 05/23/17 06:12 Blood Gas Sample Site Art Line Art Line Bedside Blood Gas pH (LAB) 7.37 7.36 Bedside Blood Gas pCO2 (LAB) 30 mmHg 31 mmHg Bedside Blood Gas pO2 (LAB) 146 mmHg 144 mmHg Bedside Blood Gas HCO3 (LAB) 17 meq/L 17 meq/L Bedside Blood Gas Total CO2 18 mEq/l 18 mEq/l Bedside Blood Gas Base Excess (LAB) -8.0 meq/L -8.0 meq/L Bedside Blood Gas O2 Saturation 99.0 % 99.0 % Mickey Test NA NA Oxygen Delivery Device Ventilator Ventilator Bedside Oxygen Rate (breaths/min) 24 Blood Gas Minute Ventilation 11.3 Bedside FiO2 28 % 28 % Blood Gas Tidal Volume 450 Blood Gas PEEP 5 5 Bedside Glucose 195 mg/dl 183 mg/dl Date/Time Source Procedure Growth Status 05/22/17 09:30 Stool C.difficile Toxin B Gene (PCR) - Final No C. difficile toxin B gene detected Complete Assessment & Plan OK on ckd stage 4-creatinine baseline 2.2 and worsened to 3.8. requiring dialysis for signfiicant acidosis. continue daily dialysis, will likely need two more treatments-one today and one tomorrow. unclear cause to the acidosis. could be a combination of renal failure and possibly metformin. no lactic acidosis. no more metformin and no more topomax as an outpt. on chronic sodium bicarb as an outpt and will need to monitor with weekly labs as outpt. lipase trending down. cultures negative and negative cdiff. hypocalcemia-will give 3 amps of calcium gluconate. likely calcium low from the bicarb administration. hypokalemia-total body potassium depleted and shifting with correction of the acidosis. continue to replete aggressively.
--- NOTE | 2017-05-23 06:34 | Clinical Documentation Query ---
CLINICAL DOCUMENTATION QUERY 42 year old female who presents to the Emergency Room with complaints of constant, severe weakness and dizziness. Ultimately patient decompensated to the point that required pressors, mechanical ventilation, and dialysis. Infectious/Septic picture appear ruled out. In your clinical opinion is this patient being managed for: (+ ) "SIRS of noninfectious origin with acute organ dysfunction" evidenced by OK, respiratory failure, and toxic-metabolic encephalopathy in setting of severe metabolic acidosis ( ) Not Agree ( ) Other explanation of clinical findings (Please Explain) ( ) Unable to determine (Please Define) ( ) Need to Discuss The medical record reflects the following clinical findings, treatment, and risk factors. Clinical Indicators: As above. Labs show: WBC's 29.36, ABG 6.81/14/116/2, BUN 42, Creatinine 3.82, Sodium 125. Severe metabolic acidosis per daily notes, ID and Dramatic Arts Historian leaning toward GI insult causing the acidosis. Treatment: ICU hemodynamic monitoring including dialysis, arterial and CVC insertion, IV Levophed, mechanical ventilation, emergency dialysis, nephrology consult, Risk Factors: Recent C.diff, recent colectomy with ostomy diversion, gastrointestinal floral imbalances. Please clarify and document your clinical opinion in the progress notes and discharge summary. Terms such as "probable", "suspected", "likely", "questionable", "possible", or "still to be ruled out" are acceptable. IF IN AGREEMENT, YOU MUST DOCUMENT ABOVE DIAGNOSTIC STATEMENT IN DAILY PROGRESS NOTES AND DISCHARGE SUMMARY. This document is not part of the patient's record. Thank You, Donovan Orlando, RN [phone]
--- NOTE | 2017-05-23 06:36 | Clinical Documentation Query ---
CLINICAL DOCUMENTATION QUERY 42 year old female who presents to the Emergency Room with complaints of constant, severe weakness and dizziness. Ultimately patient decompensated to the point that required pressors, mechanical ventilation, and dialysis. Infectious/Septic picture appear ruled out. In your clinical opinion is this patient being managed for: ( ) "SIRS of noninfectious origin with acute organ dysfunction" evidenced by OK, respiratory failure, and toxic-metabolic encephalopathy in setting of severe metabolic acidosis ( ) Not Agree ( X ) Other explanation of clinical findings (Please Explain) -- Being treated for severe metabolic acidosis. ( ) Unable to determine (Please Define) ( ) Need to Discuss The medical record reflects the following clinical findings, treatment, and risk factors. Clinical Indicators: As above. Labs show: WBC's 29.36, ABG 6.81/14/116/2, BUN 42, Creatinine 3.82, Sodium 125. Severe metabolic acidosis per daily notes, ID and Chute Builder leaning toward GI insult causing the acidosis. Treatment: ICU hemodynamic monitoring including dialysis, arterial and CVC insertion, IV Levophed, mechanical ventilation, emergency dialysis, nephrology consult, Risk Factors: Recent C.diff, recent colectomy with ostomy diversion, gastrointestinal floral imbalances. Please clarify and document your clinical opinion in the progress notes and discharge summary. Terms such as "probable", "suspected", "likely", "questionable", "possible", or "still to be ruled out" are acceptable. IF IN AGREEMENT, YOU MUST DOCUMENT ABOVE DIAGNOSTIC STATEMENT IN DAILY PROGRESS NOTES AND DISCHARGE SUMMARY. This document is not part of the patient's record. Thank You, Donovan Orlando RN [phone]
[2017-05-23] MEDS: POTASSIUM CHLR 20 MEQ / WTR 20 MEQ in PREMIXED WATER 100 ML IV SCH ×4 (06:40→14:22)
[2017-05-23] MEDS ORDERED: SODIUM CHLORIDE 0.9% IV ONE (07:00)
[2017-05-23] MEDS ORDERED: POTASSIUM CHLORIDE 20 MEQ/15 ML UDC PO ONE (07:00)
[2017-05-23] MEDS ORDERED: CALCIUM GLUCONATE IV ONE (07:00)
[2017-05-23] MEDS ORDERED: METOPROLOL TARTRATE 1 MG/ML VIAL IV STA (07:30)
--- NOTE | 2017-05-23 07:38 | DIAGNOSTIC IMAGING REPORT ---
CHEST ONE VIEW PORTABLE CLINICAL HISTORY: Evaluate for pneumonia. COMPARISON STUDY: Chest radiograph May 22, 2017. FINDINGS: The tip of the endotracheal tube is 1.7 cm above the yumi. Tip of nasogastric tube is below the lower aspect of this image but at least within the body of the stomach. A left internal jugular central line remains in place. Catheter tip projects over the cavoatrial junction. Patient is rotated. Cardiac size is at the upper limits of normal. There is no evidence for pulmonary edema. No pneumothorax or pleural effusion is noted. There are mild bibasilar opacities. IMPRESSION: 1. Tip of endotracheal tube 1.7 cm above the yumi. 2. Mild bibasilar opacities which could reflect atelectasis or consolidation. 3. No pneumothorax. 4. No evidence for pulmonary edema. Electronically signed by: Usman White M.D. 05/23/2017 7:36 AM Dictated Date/Time: 05/23/2017 7:34 AM
[2017-05-23] MEDS: METRONIDAZOLE 500 MG TAB PO SCH ×3 (07:44→20:28)
[2017-05-23] MEDS: ATORVASTATIN 10 MG TAB PO SCH (07:45)
[2017-05-23] MEDS: RASPBERRY SYRUP 5 ML UDP PO SCH ×4 (07:45→20:28)
[2017-05-23] MEDS: VANCOMYCIN HCL 250 MG/5 ML SOLN PO SCH ×4 (07:46→20:28)
[2017-05-23] MEDS: SODIUM BICARBONATE 8.4% INJ 150 MEQ in DEXTROSE 5% 1000ML 1,000 ML IV SCH (07:57)
[2017-05-23] MEDS: TRICOR~ORDER AWAITING ACTION SCH ×4 (08:00→23:43)
[2017-05-23] MEDS: INSULIN ASPART 100 UNITS/ML 3 ML PEN SC SCH ×3 (08:00→20:31)
[2017-05-23] MEDS ORDERED: INSULIN GLARGINE SOLOSTAR 100 UNITS/ML 3 ML PEN SC ONE ×2 (08:30→21:00)
[2017-05-23] MEDS ORDERED: INSULIN GLARGINE SOLOSTAR 100 UNITS/ML 3 ML PEN SC SCH (09:00)
[2017-05-23 09:29] LABS: ALBUMIN 2.7 gm/dl (3.4-5.0); CALCIUM 6.7 mg/dl (8.5-10.1); CREATININE 1.99 mg/dl (0.60-1.20); PHOSPHORUS 2.9 mg/dl (2.5-4.9); POTASSIUM 3.6 mmol/L (3.5-5.1); TOTAL PROTEIN 5.7 gm/dl (6.4-8.2)
--- NOTE | 2017-05-23 10:02 | Progress Note ---
Subjective Date of Service: May 23, 2017. Subjective Pt evaluation today including: conversation w/ patient, conversation w/ family , physical exam, chart review, lab review Patient is seen in follow-up evaluation. Her is present during my examination. She is extubated and on a mask breather. She states her breathing is stable. She denies any shortness of breath cough or chest pain. She is currently receiving dialysis. She is significantly improved. Her white blood cell count has improved 8.4. She remains afebrile. She was started empirically on oral Vanco and metronidazole for history of C diff. C diff was sent yesterday and is negative. She denies any abdominal pain or diarrhea. Her systemic antibiotics have been discontinued. Her blood cultures remain negative. Her remaining review of systems is reviewed and unremarkable. Problem List Medical Problems: (1) Abdominal pain Status: Acute (2) Confusion Status: Acute (3) Constipation Status: Acute (4) Dehydration Status: Acute (5) Dehydration Status: Acute (6) Hyperammonemia Status: Acute (7) Pneumonia Status: Acute Objective Vital Signs Date Time Temp Pulse Resp B/P (MAP) Pulse Ox O2 Delivery O2 Flow Rate FiO2 05/23/17 09:31 116 18 137/70 (92) 100 05/23/17 09:30 116 17 146/74 (98) 100 05/23/17 09:16 113 19 132/63 (86) 100 05/23/17 09:15 114 18 134/65 (88) 99 05/23/17 09:09 117 18 129/60 (83) 100 05/23/17 09:00 116 18 132/63 (86) 99 Oxymask 2.0 05/23/17 08:45 112 22 122/57 (78) 99 05/23/17 08:32 126 140/72 05/23/17 08:30 126 22 145/62 (89) 100 05/23/17 08:15 126 19 164/67 (99) 99 Oxymask 4.0 05/23/17 08:15 Oxymask 4.0 05/23/17 08:01 122 13 158/69 (98) 100 05/23/17 08:00 121 11 155/65 (95) 100 05/23/17 08:00 36.4 126 20 140/62 (88) 100 Mechanical Ventilator 28 05/23/17 07:45 121 13 151/64 (93) 100 05/23/17 07:30 122 14 151/63 (92) 100 05/23/17 07:15 120 15 151/64 (93) 100 05/23/17 07:13 28 05/23/17 07:00 121 16 146/62 (90) 100 05/23/17 06:00 120 17 151/76 (101) 100 Mechanical Ventilator 28 05/23/17 05:18 28 05/23/17 04:00 37.3 116 24 135/69 (91) 100 Mechanical Ventilator 28 05/23/17 04:00 100 Mechanical Ventilator 28 05/23/17 04:00 28 05/23/17 02:15 28 05/23/17 02:00 117 24 151/59 (89) 100 Mechanical Ventilator 28 05/23/17 00:01 37.2 110 24 130/70 (90) 100 Mechanical Ventilator 28 05/22/17 23:59 28 05/22/17 23:59 100 Mechanical Ventilator 28 05/22/17 23:20 28 05/22/17 22:00 108 24 170/77 (108) 99 Mechanical Ventilator 28 05/22/17 20:07 28 05/22/17 20:05 28 05/22/17 20:00 37.4 110 28 137/75 (95) 100 Mechanical Ventilator 28 05/22/17 20:00 28 05/22/17 20:00 100 Mechanical Ventilator 28 05/22/17 18:40 36.9 102 113/62 (79) 05/22/17 18:15 106 101/56 05/22/17 18:15 28 05/22/17 18:05 28 05/22/17 18:01 37.2 106 35 113/63 (76) 100 113/60 18 18:00 106 118/61 18 17:46 37.2 110 35 107/61 (77) 100 117/61 18 17:45 110 110/59 18 17:31 37.2 124 35 120/69 (92) 99 165/68 18 17:30 134 149/65 18 17:16 37.2 107 35 124/64 (80) 100 127/62 05/22/17 17:15 107 135/64 2/12/18 17:01 37.2 108 35 112/64 (74) 100 117/59 218 17:00 108 119/60 218 16:46 37.2 105 35 112/63 (72) 100 115/57 218 16:45 107 117/57 218 16:31 37.2 106 35 115/59 (74) 100 120/58 218 16:30 106 118/59 218 16:16 37.2 106 35 112/56 (70) 100 113/55 18 16:15 106 113/55 218 16:00 28 05/22/17 16:00 37.3 102 35 101/56 (71) 100 115/57 05/22/17 16:00 Mechanical Ventilator 28 05/22/17 16:00 102 101/56 05/22/17 15:46 37.3 104 35 110/62 (75) 100 118/58 05/22/17 15:45 103 119/59 18 15:31 37.3 101 35 120/57 (73) 100 117/56 18 15:30 97 113/47 18 15:23 37.4 97 35 113/47 (71) 100 111/53 18 15:20 97 119/54 18 15:16 37.5 101 35 117/62 (78) 100 132/58 18 15:15 37.5 100 127/57 (80) 05/22/17 15:01 37.5 101 35 128/56 (74) 100 124/55 18 14:42 28 05/22/17 14:01 37.4 101 35 113/47 (78) 100 132/58 18 13:45 28 05/22/17 13:01 37.4 99 35 116/58 (77) 100 128/58 05/22/17 12:01 97 35 110/56 (75) 100 124/55 05/22/17 12:00 28 05/22/17 12:00 Mechanical Ventilator 28 05/22/17 12:00 28 05/22/17 11:10 28 05/22/17 11:01 37.3 94 35 102/58 (74) 100 122/53 Physical Exam General Appearance: WD/WN, no apparent distress Eyes: normal inspection, EOMI ENT: pharynx normal Neck: supple Respiratory/Chest: lungs clear, normal breath sounds, no respiratory distress, + decreased breath sounds Cardiovascular: regular rate, rhythm, no edema Abdomen: non tender, soft Extremities: non-tender, no pedal edema Neurologic/Psychiatric: alert, oriented x 3 Skin: normal color, no rash Laboratory Results Item Value Date Time Blood Culture - Preliminary Resulted 05/21/17 1715 Blood NO GROWTH TO DATE. Blood Culture - Preliminary Resulted 05/21/17 1700 Blood NO GROWTH TO DATE. C.difficile Toxin B Gene (PCR) - Final Complete 05/22/17 0930 Stool No C. difficile toxin B gene detected Last 24 Hours Test 05/22/17 10:31 05/22/17 10:40 05/22/17 11:39 05/22/17 12:06 Random Cortisol 36.08 mcg/dl Bedside Glucose (other) 203 mg/dl Bedside Glucose 245 mg/dl Sodium Level 138 mmol/L Potassium Level 2.7 mmol/L Chloride Level 107 mmol/L Carbon Dioxide Level 12 mmol/L Anion Gap 19.0 mmol/L Blood Urea Nitrogen 35 mg/dl Creatinine 2.75 mg/dl Est Creatinine Clear Calc Drug Dose 28.7 ml/min Estimated GFR () 23.4 Estimated GFR (Non- 20.2 BUN/Creatinine Ratio 12.7 Random Glucose 241 mg/dl Lactic Acid Level 0.1 mmol/L Calcium Level 6.5 mg/dl Ionized Calcium 1.00 mmol/l Phosphorus Level 2.3 mg/dl Magnesium Level 2.1 mg/dl Total Bilirubin 0.5 mg/dl Aspartate Amino Transf (AST/SGOT) 13 U/L Alanine Aminotransferase (ALT/SGPT) 16 U/L Alkaline Phosphatase 48 U/L Total Creatine Kinase 79 U/L Troponin I 0.319 ng/ml Total Protein 5.0 gm/dl Albumin 2.3 gm/dl Globulin 2.7 gm/dl Albumin/Globulin Ratio 0.9 Lipase 2453 U/L Test 05/22/17 12:56 05/22/17 13:40 05/22/17 13:57 05/22/17 15:17 Bedside Glucose 267 mg/dl 238 mg/dl 203 mg/dl Blood Gas Sample Site Art Line Bedside Blood Gas pH (LAB) 7.29 Bedside Blood Gas pCO2 (LAB) 23 mmHg Bedside Blood Gas pO2 (LAB) 151 mmHg Bedside Blood Gas HCO3 (LAB) 11 meq/L Bedside Blood Gas Total CO2 12 mEq/l Bedside Blood Gas Base Excess (LAB) -15.0 meq/L Bedside Blood Gas O2 Saturation 99.0 % Mickey Test NA Oxygen Delivery Device Ventilator Bedside Oxygen Rate (breaths/min) 35 Blood Gas Minute Ventilation 15.6 Bedside FiO2 28 % Blood Gas Tidal Volume 450 Blood Gas PEEP 5 Test 05/22/17 16:03 05/22/17 16:13 05/22/17 16:30 05/22/17 17:38 Sodium Level 137 mmol/L Potassium Level 2.9 mmol/L Chloride Level 106 mmol/L Carbon Dioxide Level 16 mmol/L Anion Gap 15.0 mmol/L Blood Urea Nitrogen 26 mg/dl Creatinine 1.98 mg/dl Est Creatinine Clear Calc Drug Dose 39.9 ml/min Estimated GFR () 34.7 Estimated GFR (Non- 30.0 BUN/Creatinine Ratio 12.9 Random Glucose 140 mg/dl Lactic Acid Level 0.3 mmol/L Calcium Level 6.6 mg/dl Ionized Calcium 0.95 mmol/l Phosphorus Level 1.2 mg/dl Magnesium Level 1.8 mg/dl Total Bilirubin 0.4 mg/dl Aspartate Amino Transf (AST/SGOT) 14 U/L Alanine Aminotransferase (ALT/SGPT) 12 U/L Alkaline Phosphatase 50 U/L Total Creatine Kinase 81 U/L Total Protein 5.0 gm/dl Albumin 2.4 gm/dl Globulin 2.6 gm/dl Albumin/Globulin Ratio 0.9 Lipase 1443 U/L Bedside Glucose 144 mg/dl 112 mg/dl Blood Gas Sample Site Art Line Bedside Blood Gas pH (LAB) 7.40 Bedside Blood Gas pCO2 (LAB) 27 mmHg Bedside Blood Gas pO2 (LAB) 147 mmHg Bedside Blood Gas HCO3 (LAB) 16 meq/L Bedside Blood Gas Total CO2 17 mEq/l Bedside Blood Gas Base Excess (LAB) -9.0 meq/L Bedside Blood Gas O2 Saturation 99.0 % Mickey Test NA Oxygen Delivery Device Ventilator Bedside Oxygen Rate (breaths/min) 35 Blood Gas Minute Ventilation 15.8 Bedside FiO2 28 % Blood Gas Tidal Volume 450 Blood Gas PEEP 5 Test 05/22/17 18:46 05/22/17 20:00 05/22/17 20:10 05/22/17 21:16 Bedside Glucose 109 mg/dl 103 mg/dl Sodium Level 134 mmol/L Potassium Level 2.3 mmol/L Chloride Level 100 mmol/L Carbon Dioxide Level 21 mmol/L Anion Gap 14.0 mmol/L Blood Urea Nitrogen 15 mg/dl Creatinine 1.42 mg/dl Est Creatinine Clear Calc Drug Dose 55.7 ml/min Estimated GFR () 51.9 Estimated GFR (Non- 44.8 BUN/Creatinine Ratio 10.6 Random Glucose 103 mg/dl Lactic Acid Level 0.4 mmol/L Calcium Level 6.8 mg/dl Ionized Calcium 0.88 mmol/l Phosphorus Level 1.0 mg/dl Magnesium Level 1.7 mg/dl Total Bilirubin 0.4 mg/dl Aspartate Amino Transf (AST/SGOT) 17 U/L Alanine Aminotransferase (ALT/SGPT) 13 U/L Alkaline Phosphatase 47 U/L Total Creatine Kinase 102 U/L Total Protein 5.5 gm/dl Albumin 2.6 gm/dl Globulin 2.9 gm/dl Albumin/Globulin Ratio 0.9 Lipase 830 U/L Bedside Glucose (other) 105 mg/dl Test 05/22/17 22:07 05/22/17 23:01 05/22/17 23:41 05/22/17 23:42 Bedside Glucose 112 mg/dl 122 mg/dl 135 mg/dl Sodium Level 135 mmol/L Potassium Level 3.1 mmol/L Chloride Level 100 mmol/L Carbon Dioxide Level 22 mmol/L Anion Gap 13.0 mmol/L Blood Urea Nitrogen 17 mg/dl Creatinine 1.71 mg/dl Est Creatinine Clear Calc Drug Dose 46.2 ml/min Estimated GFR () 41.5 Estimated GFR (Non- 35.8 BUN/Creatinine Ratio 9.8 Random Glucose 134 mg/dl Lactic Acid Level 0.7 mmol/L Calcium Level 6.6 mg/dl Ionized Calcium 0.87 mmol/l Phosphorus Level 2.1 mg/dl Magnesium Level 1.7 mg/dl Total Bilirubin 0.5 mg/dl Aspartate Amino Transf (AST/SGOT) 16 U/L Alanine Aminotransferase (ALT/SGPT) 14 U/L Alkaline Phosphatase 49 U/L Total Creatine Kinase 136 U/L Total Protein 5.5 gm/dl Albumin 2.8 gm/dl Globulin 2.7 gm/dl Albumin/Globulin Ratio 1.0 Lipase 681 U/L Test 05/23/17 01:07 05/23/17 02:07 05/23/17 03:58 05/23/17 04:23 Bedside Glucose 141 mg/dl 165 mg/dl 183 mg/dl White Blood Count 8.41 K/uL Red Blood Count 3.03 M/uL Hemoglobin 8.2 g/dL Hematocrit 23.7 % Mean Corpuscular Volume 78.2 fL Mean Corpuscular Hemoglobin 27.1 pg Mean Corpuscular Hemoglobin Concent 34.6 g/dl Platelet Count 245 K/uL Mean Platelet Volume 8.0 fL Neutrophils (%) (Auto) 84.3 % Lymphocytes (%) (Auto) 8.6 % Monocytes (%) (Auto) 6.1 % Eosinophils (%) (Auto) 0.1 % Basophils (%) (Auto) 0.1 % Neutrophils # (Auto) 7.09 K/uL Lymphocytes # (Auto) 0.72 K/uL Monocytes # (Auto) 0.51 K/uL Eosinophils # (Auto) 0.01 K/uL Basophils # (Auto) 0.01 K/uL RDW Standard Deviation 53.6 fL RDW Coefficient of Variation 19.0 % Immature Granulocyte % (Auto) 0.8 % Immature Granulocyte # (Auto) 0.07 K/uL Nucleated RBC Absolute Count (auto) 0.03 K/uL Nucleated Red Blood Cells % 0.3 % Toxic Vacuolation 2+ Erythrocyte Sedimentation Rate 5 mm/hr Sodium Level 135 mmol/L Potassium Level 2.7 mmol/L Chloride Level 100 mmol/L Carbon Dioxide Level 18 mmol/L Anion Gap 17.0 mmol/L Blood Urea Nitrogen 16 mg/dl Creatinine 1.86 mg/dl Est Creatinine Clear Calc Drug Dose 42.5 ml/min Estimated GFR () 37.5 Estimated GFR (Non- 32.3 BUN/Creatinine Ratio 8.6 Random Glucose 186 mg/dl Lactic Acid Level 0.5 mmol/L Calcium Level 6.5 mg/dl Ionized Calcium 0.83 mmol/l Phosphorus Level 3.5 mg/dl Magnesium Level 2.4 mg/dl Total Bilirubin 0.4 mg/dl Aspartate Amino Transf (AST/SGOT) 15 U/L Alanine Aminotransferase (ALT/SGPT) 14 U/L Alkaline Phosphatase 49 U/L Total Creatine Kinase 136 U/L Total Protein 5.6 gm/dl Albumin 2.7 gm/dl Globulin 2.9 gm/dl Albumin/Globulin Ratio 0.9 Lipase 493 U/L Test 05/23/17 05:06 05/23/17 05:07 05/23/17 05:59 05/23/17 06:12 Blood Gas Sample Site Art Line Art Line Bedside Blood Gas pH (LAB) 7.37 7.36 Bedside Blood Gas pCO2 (LAB) 30 mmHg 31 mmHg Bedside Blood Gas pO2 (LAB) 146 mmHg 144 mmHg Bedside Blood Gas HCO3 (LAB) 17 meq/L 17 meq/L Bedside Blood Gas Total CO2 18 mEq/l 18 mEq/l Bedside Blood Gas Base Excess (LAB) -8.0 meq/L -8.0 meq/L Bedside Blood Gas O2 Saturation 99.0 % 99.0 % Mickey Test NA NA Oxygen Delivery Device Ventilator Ventilator Bedside Oxygen Rate (breaths/min) 24 Blood Gas Minute Ventilation 11.3 Bedside FiO2 28 % 28 % Blood Gas Tidal Volume 450 Blood Gas PEEP 5 5 Bedside Glucose 195 mg/dl 183 mg/dl Test 05/23/17 07:00 05/23/17 08:24 05/23/17 08:52 Bedside Glucose 177 mg/dl 209 mg/dl Sodium Level 135 mmol/L Potassium Level 3.6 mmol/L Chloride Level 101 mmol/L Carbon Dioxide Level 18 mmol/L Anion Gap 16.0 mmol/L Blood Urea Nitrogen 15 mg/dl Creatinine 1.99 mg/dl Est Creatinine Clear Calc Drug Dose 40.4 ml/min Estimated GFR () 34.5 Estimated GFR (Non- 29.8 BUN/Creatinine Ratio 7.3 Random Glucose 211 mg/dl Lactic Acid Level 0.8 mmol/L Calcium Level 6.7 mg/dl Ionized Calcium 0.86 mmol/l Phosphorus Level 2.9 mg/dl Magnesium Level 2.3 mg/dl Total Bilirubin 0.4 mg/dl Aspartate Amino Transf (AST/SGOT) 16 U/L Alanine Aminotransferase (ALT/SGPT) 12 U/L Alkaline Phosphatase 47 U/L Total Creatine Kinase 129 U/L Total Protein 5.7 gm/dl Albumin 2.7 gm/dl Globulin 3.0 gm/dl Albumin/Globulin Ratio 0.9 Lipase 337 U/L Assessment and Plan (1) Acidosis Assessment & Plan: Patient is significantly improved. I do not suspect infection as the etiology for her current clinical condition. She could be followed off of antibiotics from Infectious diseases standpoint. The please call with any additional questions.
[2017-05-23] MEDS ORDERED: FAMOTIDINE IV INJ 20 MG in SYRINGE 3 ML IV SCH (11:00)
[2017-05-23] MEDS ORDERED: INSULIN ASPART 100 UNITS/ML 3 ML PEN SC ONE (11:00)
--- NOTE | 2017-05-23 11:25 | Pharmacy Progress Note ---
Glycemic Control Progress Note Date of Service May 23, 2017. Scope Glycemic Pharmacist consulted for glycemic control to write orders per [facility] inpatient glycemic control protocol. Objective Accuchecks BSG (last 24hrs): Test 05/22/17 11:39 05/22/17 12:06 05/22/17 12:56 05/22/17 13:57 Bedside Glucose 245 mg/dl (70-90) 267 mg/dl (70-90) 238 mg/dl (70-90) Random Glucose 241 mg/dl (70-99) Test 05/22/17 15:17 05/22/17 16:03 05/22/17 16:13 05/22/17 17:38 Bedside Glucose 203 mg/dl (70-90) 144 mg/dl (70-90) 112 mg/dl (70-90) Random Glucose 140 mg/dl (70-99) Test 05/22/17 18:46 05/22/17 20:00 05/22/17 21:16 05/22/17 22:07 Bedside Glucose 109 mg/dl (70-90) 103 mg/dl (70-90) 112 mg/dl (70-90) Random Glucose 103 mg/dl (70-99) Test 05/22/17 23:01 05/22/17 23:41 05/22/17 23:42 05/23/17 01:07 Bedside Glucose 122 mg/dl (70-90) 135 mg/dl (70-90) 141 mg/dl (70-90) Random Glucose 134 mg/dl (70-99) Test 05/23/17 02:07 05/23/17 03:58 05/23/17 04:23 05/23/17 05:07 Bedside Glucose 165 mg/dl (70-90) 183 mg/dl (70-90) 195 mg/dl (70-90) Random Glucose 186 mg/dl (70-99) Test 05/23/17 06:12 05/23/17 07:00 05/23/17 08:24 05/23/17 08:52 Bedside Glucose 183 mg/dl (70-90) 177 mg/dl (70-90) 209 mg/dl (70-90) Random Glucose 211 mg/dl (70-99) HbA1c: 13.8% on 04/17/17 Recent Pertinent Medications Outpatient Anti-diabetic Regimen: * Tresiba 110 units daily * Novolog 20 units SC TIDM * A1c = 13.8 % on 04/17/17 The patient is currently receiving: * Insulin drip, severe stress, goal 110-180 mg/dL * Lantus 60 units x1 yesterday afternoon Risk Factors for Insulin Resistance: * Infection: vanco po, Flagyl po - stopping tonight (05/23) * Pressors: norepinephrine - discontinued * IVF: D5 w NaBicarb 150 mEq/L @ 75 mL/hr - discontinued * Diet: NPO changed to T2DM @ 1200 * Mechanical Ventilation: extubated this AM Assessment & Plan ASSESSMENT: 05/22 * 42 yo F with recent admission to [facility] known to our service * Initiated on insulin drip 2nd severity of illness and BSG's > 200 mg/dL. Now running at 6.6 units/hr - not ready to transition to basal/bolus * Will however give lower dose of Lantus (significantly less than home dose), not in an attempt to transition, but to make it so insulin drip rates don't increase as significantly as they currently are (2nd pt receiving Tresiba 110 units yesterday AM per med rec but no basal yet today) and to make transitioning off insulin drip easier when ready * Will initiate at ~ 1/2 of home dose 05/23 * Patient with significantly reduced stressors (extubated, norepinephrine stopped, dextrose-containing IVF stopped). * OK to transition off of drip per Dr. Lea * Will give additional Lantus this AM to transition off insulin drip * Targeting 90 units total daily dose (30 units this AM in addition to 60 units given yesterday PM) for now 2nd higher stress compared to data from recent admission. * Ongoing total daily Lantus dose likely ~80 units/day * Insulin drip running at 2.4 units/hr this AM per RN. Appropriately decreasing now that additional Lantus admin @0845. Most recent BSG 139 mg/dL @1100 * Fixed CHO ratio at lunch based on recent admission data * Ongoing Novolog ACHS based on recent admission data * Two overnight BSG checks PLAN FOR INPATIENT GLYCEMIC CONTROL: * Discontinue insulin drip today @ 1500 * Basal insulin with LANTUS 30 units SQ x1 now (given this AM @ 0845) * Lantus HS tonight x1 as follows * 40 units for BSG < 120 mg/dL * 50 units for BSG 120-200 mg/dL * 60 units for BSG > 200 mg/dL * Lantus BID starting tomorrow as follows * 40 units for BSG < 180 mg/dL * 50 units for BSG > 180 mg/dL * Novolog ACHS plus two additional overnight checks * Goal range 120-160 mg/dL * Correction factor: 10 mg/dL/unit * Carbohydrate ratio: 1 unit insulin for every 3 g CHO consumed * Please note that the plan above was derived based on current level of insulin resistance and hospital stress. These recommendations are appropriate for inpatient admission only. Plan of care upon discharge will need to be reassessed to avoid potential outpatient hypo/hyperglycemia. Thank you.
[2017-05-23] MEDS: AMLODIPINE BESYLATE 5 MG TAB PO SCH (11:58)
[2017-05-23] MEDS: PANTOprazole SOD 40 MG TAB PO SCH (11:59)
[2017-05-23] MEDS: PROPRANOLOL HCL 20 MG TAB PO SCH ×3 (11:59→23:47)
[2017-05-23] MEDS: SODIUM BICARBONATE 650 MG TAB PO SCH ×3 (12:00→20:28)
[2017-05-23 13:06] LABS: ALBUMIN 2.9 gm/dl (3.4-5.0); CALCIUM 7.2 mg/dl (8.5-10.1); CREATININE 0.94 mg/dl (0.60-1.20); POTASSIUM 3.1 mmol/L (3.5-5.1)
--- NOTE | 2017-05-23 13:08 | Progress Note ---
Internal Med Progress Note Date of Service: May 23, 2017. Provider Documentation: SUBJECTIVE: The patient was seen and examined:Now Intubated in ICU Admitted with presents here due to dizziness, shakiness, weakness with recent H/ O DKA Intubated and Sedated OBJECTIVE: Vital Signs-as noted below Exam: General-Remains intubated Eyes-Closed ENT-Normal Neck-Supple Lungs-Decreased breath sound bilaterally Heart-Regular Abdomen-Soft Bowel sound present Extremities-Trace edema bilaterally Neuro-Sedated on Vent Lab data as noted below. ASSESSMENT & PLAN: This is a 42 year old female with a PMH of type 1 DM, HTN, C. diff colitis - was recently hospitalized here in [facility] in April 2017 with severe metabolic acidosis, DKA, septic shock, requiring an ICU admission, temporary trach, dialysis x1 - presents with similar symptoms H/O Colectomy a few years back due to C Diff Colitis Sepsis syndrome without any source of infection ,S/P Extubation "SIRS of noninfectious origin with acute organ dysfunction" evidenced by OK, respiratory failure, and toxic-metabolic encephalopathy in setting of severe metabolic acidosis -patient with elevated white blood cell count with immature cell lines-May have Leukemoid reaction -C Diff Toxin -negative -started on IV Vanco + Zosyn and discontinued later on -panculture-negative so far -Appreciate ID input -has been on Oral Vanco and Flagyl -clinically better following extubation Severe Metabolic Acidosis -bicarb down to 5,on 05/10, normal bicarb noted -taking sodium bicarb supplements -causes likely multifactorial:metabolic acidosis. perhaps combination of renal failure/chronic diarrhea from colectomy/metformin or other medication -appreciate Vest Maker input -Appreciate Nephrology input -getting Dialysis -Acidosis is improving Pancreatitis Contributing electrolytes abnormalities IV fluid and supportive measures Lipase is improved Hypertensive Emergency blood pressure >200/100 started on labetalol drip as per registered respiratory technician BP is controlled Acute Kidney Injury superimposed on CKD stage IV patient with creatinine at 3.8 she is clinically severely dehydrated Appreciate Nephrology input Getting HD Type 1 DM would continue basal/bolus appreciate registered respiratory technician and pharmacy glycemic control consultations will defer to them regarding this, as patient has had multiple episodes of DKA in the past DVT ppx Lovenox FULL CODE Vital Signs: Date Time Temp Pulse Resp B/P (MAP) Pulse Ox O2 Delivery O2 Flow Rate FiO2 05/23/17 12:00 Nasal Cannula 2.0 2/13/18 12:00 36.6 112 18 118/80 (93) 100 Nasal Cannula 2.0 05/23/17 11:45 120 134/78 05/23/17 11:27 119 123/75 05/23/17 11:15 120 141/73 05/23/17 11:00 119 129/66 05/23/17 10:45 119 125/64 05/23/17 10:30 118 129/71 05/23/17 10:15 116 126/65 05/23/17 10:00 117 143/76 05/23/17 09:45 118 136/69 05/23/17 09:31 116 18 137/70 (92) 100 05/23/17 09:30 116 135/68 05/23/17 09:30 116 17 146/74 (98) 100 05/23/17 09:16 113 19 132/63 (86) 100 05/23/17 09:15 113 139/68 05/23/17 09:15 114 18 134/65 (88) 99 05/23/17 09:09 117 18 129/60 (83) 100 05/23/17 09:00 37.6 116 132/62 (85) 05/23/17 09:00 116 18 132/63 (86) 99 Oxymask 2.0 05/23/17 08:45 112 22 122/57 (78) 99 05/23/17 08:32 126 140/72 05/23/17 08:30 126 22 145/62 (89) 100 05/23/17 08:15 126 19 164/67 (99) 99 Oxymask 4.0 05/23/17 08:15 Oxymask 4.0 05/23/17 08:01 122 13 158/69 (98) 100 05/23/17 08:00 28 05/23/17 08:00 121 11 155/65 (95) 100 05/23/17 08:00 36.4 126 20 140/62 (88) 100 Mechanical Ventilator 28 05/23/17 07:45 121 13 151/64 (93) 100 05/23/17 07:30 122 14 151/63 (92) 100 05/23/17 07:15 120 15 151/64 (93) 100 05/23/17 07:13 28 05/23/17 07:00 121 16 146/62 (90) 100 05/23/17 06:00 120 17 151/76 (101) 100 Mechanical Ventilator 28 05/23/17 05:18 28 05/23/17 04:00 37.3 116 24 135/69 (91) 100 Mechanical Ventilator 28 05/23/17 04:00 100 Mechanical Ventilator 28 05/23/17 04:00 28 05/23/17 02:15 28 05/23/17 02:00 117 24 151/59 (89) 100 Mechanical Ventilator 28 05/23/17 00:01 37.2 110 24 130/70 (90) 100 Mechanical Ventilator 28 05/22/17 23:59 28 18 23:59 100 Mechanical Ventilator 28 05/22/17 23:20 28 05/22/17 22:00 108 24 170/77 (108) 99 Mechanical Ventilator 28 05/22/17 20:07 28 05/22/17 20:05 28 05/22/17 20:00 37.4 110 28 137/75 (95) 100 Mechanical Ventilator 28 05/22/17 20:00 28 05/22/17 20:00 100 Mechanical Ventilator 28 05/22/17 18:40 36.9 102 113/62 (79) 18 18:15 106 101/56 18 18:15 28 05/22/17 18:05 28 05/22/17 18:01 37.2 106 35 113/63 (76) 100 113/60 18 18:00 106 118/61 18 17:46 37.2 110 35 107/61 (77) 100 117/61 18 17:45 110 110/59 05/22/18 17:31 37.2 124 35 120/69 (92) 99 165/68 12/18 17:30 134 149/65 218 17:16 37.2 107 35 124/64 (80) 100 127/62 18 17:15 107 135/64 18 17:01 37.2 108 35 112/64 (74) 100 117/59 212/18 17:00 108 119/60 218 16:46 37.2 105 35 112/63 (72) 100 115/57 2/18 16:45 107 117/57 05/22/17 16:31 37.2 106 35 115/59 (74) 100 120/58 05/22/17 16:30 106 118/59 05/22/17 16:16 37.2 106 35 112/56 (70) 100 113/55 05/22/17 16:15 106 113/55 05/22/17 16:00 28 05/22/17 16:00 37.3 102 35 101/56 (71) 100 115/57 05/22/17 16:00 Mechanical Ventilator 28 05/22/17 16:00 102 101/56 05/22/17 15:46 37.3 104 35 110/62 (75) 100 118/58 05/22/17 15:45 103 119/59 05/22/17 15:31 37.3 101 35 120/57 (73) 100 117/56 05/22/17 15:30 97 113/47 05/22/17 15:23 37.4 97 35 113/47 (71) 100 111/53 05/22/17 15:20 97 119/54 05/22/17 15:16 37.5 101 35 117/62 (78) 100 132/58 05/22/17 15:15 37.5 100 127/57 (80) 05/22/17 15:01 37.5 101 35 128/56 (74) 100 124/55 05/22/17 14:42 28 05/22/17 14:01 37.4 101 35 113/47 (78) 100 132/58 05/22/17 13:45 28 Lab Results: Results Past 24 Hours Test 05/22/17 13:40 05/22/17 13:57 05/22/17 15:17 05/22/17 16:03 Range/Units Blood Gas Sample Site Art Line Bedside Blood Gas pH (LAB) 7.29 7.35-7.45 Bedside Blood Gas pCO2 (LAB) 23 35-46 mmHg Bedside Blood Gas pO2 (LAB) 151 80-95 mmHg Bedside Blood Gas HCO3 (LAB) 11 19-24 meq/L Bedside Blood Gas Total CO2 12 24-31 mEq/l Bedside Blood Gas Base Excess (LAB) -15.0 -9-1.8 meq/L Bedside Blood Gas O2 Saturation 99.0 90-95 % Mickey Test NA Oxygen Delivery Device Ventilator Bedside Oxygen Rate (breaths/min) 35 Blood Gas Minute Ventilation 15.6 Bedside FiO2 28 % Blood Gas Tidal Volume 450 Blood Gas PEEP 5 Bedside Glucose 238 203 70-90 mg/dl Sodium Level 137 136-145 mmol/L Potassium Level 2.9 3.5-5.1 mmol/L Chloride Level 106 98-107 mmol/L Carbon Dioxide Level 16 21-32 mmol/L Anion Gap 15.0 3-11 mmol/L Blood Urea Nitrogen 26 7-18 mg/dl Creatinine 1.98 0.60-1.20 mg/dl Est Creatinine Clear Calc Drug Dose 39.9 ml/min Estimated GFR () 34.7 Estimated GFR (Non- 30.0 BUN/Creatinine Ratio 12.9 10-20 Random Glucose 140 70-99 mg/dl Lactic Acid Level 0.3 0.4-2.0 mmol/L Calcium Level 6.6 8.5-10.1 mg/dl Ionized Calcium 0.95 1.12-1.32 mmol/l Phosphorus Level 1.2 2.5-4.9 mg/dl Magnesium Level 1.8 1.8-2.4 mg/dl Total Bilirubin 0.4 0.2-1 mg/dl Aspartate Amino Transf (AST/SGOT) 14 15-37 U/L Alanine Aminotransferase (ALT/SGPT) 12 12-78 U/L Alkaline Phosphatase 50 45-117 U/L Total Creatine Kinase 81 26-192 U/L Total Protein 5.0 6.4-8.2 gm/dl Albumin 2.4 3.4-5.0 gm/dl Globulin 2.6 2.5-4.0 gm/dl Albumin/Globulin Ratio 0.9 0.9-2 Lipase 1443 73-393 U/L Test 05/22/17 16:13 05/22/17 16:30 05/22/17 17:38 05/22/17 18:46 Range/Units Bedside Glucose 144 112 109 70-90 mg/dl Blood Gas Sample Site Art Line Bedside Blood Gas pH (LAB) 7.40 7.35-7.45 Bedside Blood Gas pCO2 (LAB) 27 35-46 mmHg Bedside Blood Gas pO2 (LAB) 147 80-95 mmHg Bedside Blood Gas HCO3 (LAB) 16 19-24 meq/L Bedside Blood Gas Total CO2 17 24-31 mEq/l Bedside Blood Gas Base Excess (LAB) -9.0 -9-1.8 meq/L Bedside Blood Gas O2 Saturation 99.0 90-95 % Mickey Test NA Oxygen Delivery Device Ventilator Bedside Oxygen Rate (breaths/min) 35 Blood Gas Minute Ventilation 15.8 Bedside FiO2 28 % Blood Gas Tidal Volume 450 Blood Gas PEEP 5 Test 05/22/17 20:00 05/22/17 20:10 05/22/17 21:16 05/22/17 22:07 Range/Units Sodium Level 134 136-145 mmol/L Potassium Level 2.3 3.5-5.1 mmol/L Chloride Level 100 98-107 mmol/L Carbon Dioxide Level 21 21-32 mmol/L Anion Gap 14.0 3-11 mmol/L Blood Urea Nitrogen 15 7-18 mg/dl Creatinine 1.42 0.60-1.20 mg/dl Est Creatinine Clear Calc Drug Dose 55.7 ml/min Estimated GFR () 51.9 Estimated GFR (Non- 44.8 BUN/Creatinine Ratio 10.6 10-20 Random Glucose 103 70-99 mg/dl Lactic Acid Level 0.4 0.4-2.0 mmol/L Calcium Level 6.8 8.5-10.1 mg/dl Ionized Calcium 0.88 1.12-1.32 mmol/l Phosphorus Level 1.0 2.5-4.9 mg/dl Magnesium Level 1.7 1.8-2.4 mg/dl Total Bilirubin 0.4 0.2-1 mg/dl Aspartate Amino Transf (AST/SGOT) 17 15-37 U/L Alanine Aminotransferase (ALT/SGPT) 13 12-78 U/L Alkaline Phosphatase 47 45-117 U/L Total Creatine Kinase 102 26-192 U/L Total Protein 5.5 6.4-8.2 gm/dl Albumin 2.6 3.4-5.0 gm/dl Globulin 2.9 2.5-4.0 gm/dl Albumin/Globulin Ratio 0.9 0.9-2 Lipase 830 73-393 U/L Bedside Glucose (other) 105 70-99 mg/dl Bedside Glucose 103 112 70-90 mg/dl Test 05/22/17 23:01 05/22/17 23:41 05/22/17 23:42 05/23/17 01:07 Range/Units Bedside Glucose 122 135 141 70-90 mg/dl Sodium Level 135 136-145 mmol/L Potassium Level 3.1 3.5-5.1 mmol/L Chloride Level 100 98-107 mmol/L Carbon Dioxide Level 22 21-32 mmol/L Anion Gap 13.0 3-11 mmol/L Blood Urea Nitrogen 17 7-18 mg/dl Creatinine 1.71 0.60-1.20 mg/dl Est Creatinine Clear Calc Drug Dose 46.2 ml/min Estimated GFR () 41.5 Estimated GFR (Non- 35.8 BUN/Creatinine Ratio 9.8 10-20 Random Glucose 134 70-99 mg/dl Lactic Acid Level 0.7 0.4-2.0 mmol/L Calcium Level 6.6 8.5-10.1 mg/dl Ionized Calcium 0.87 1.12-1.32 mmol/l Phosphorus Level 2.1 2.5-4.9 mg/dl Magnesium Level 1.7 1.8-2.4 mg/dl Total Bilirubin 0.5 0.2-1 mg/dl Aspartate Amino Transf (AST/SGOT) 16 15-37 U/L Alanine Aminotransferase (ALT/SGPT) 14 12-78 U/L Alkaline Phosphatase 49 45-117 U/L Total Creatine Kinase 136 26-192 U/L Total Protein 5.5 6.4-8.2 gm/dl Albumin 2.8 3.4-5.0 gm/dl Globulin 2.7 2.5-4.0 gm/dl Albumin/Globulin Ratio 1.0 0.9-2 Lipase 681 73-393 U/L Test 05/23/17 02:07 05/23/17 03:58 05/23/17 04:23 05/23/17 05:06 Range/Units Bedside Glucose 165 183 70-90 mg/dl White Blood Count 8.41 4.8-10.8 K/uL Red Blood Count 3.03 4.2-5.4 M/uL Hemoglobin 8.2 12.0-16.0 g/dL Hematocrit 23.7 37-47 % Mean Corpuscular Volume 78.2 80-100 fL Mean Corpuscular Hemoglobin 27.1 25-34 pg Mean Corpuscular Hemoglobin Concent 34.6 32-36 g/dl Platelet Count 245 130-400 K/uL Mean Platelet Volume 8.0 7.4-10.4 fL Neutrophils (%) (Auto) 84.3 % Lymphocytes (%) (Auto) 8.6 % Monocytes (%) (Auto) 6.1 % Eosinophils (%) (Auto) 0.1 % Basophils (%) (Auto) 0.1 % Neutrophils # (Auto) 7.09 1.4-6.5 K/uL Lymphocytes # (Auto) 0.72 1.2-3.4 K/uL Monocytes # (Auto) 0.51 0.11-0.59 K/uL Eosinophils # (Auto) 0.01 0-0.5 K/uL Basophils # (Auto) 0.01 0-0.2 K/uL RDW Standard Deviation 53.6 36.4-46.3 fL RDW Coefficient of Variation 19.0 11.5-14.5 % Immature Granulocyte % (Auto) 0.8 % Immature Granulocyte # (Auto) 0.07 0.00-0.02 K/uL Nucleated RBC Absolute Count (auto) 0.03 0-0 K/uL Nucleated Red Blood Cells % 0.3 % Toxic Vacuolation 2+ Erythrocyte Sedimentation Rate 5 0-21 mm/hr Sodium Level 135 136-145 mmol/L Potassium Level 2.7 3.5-5.1 mmol/L Chloride Level 100 98-107 mmol/L Carbon Dioxide Level 18 21-32 mmol/L Anion Gap 17.0 3-11 mmol/L Blood Urea Nitrogen 16 7-18 mg/dl Creatinine 1.86 0.60-1.20 mg/dl Est Creatinine Clear Calc Drug Dose 42.5 ml/min Estimated GFR () 37.5 Estimated GFR (Non- 32.3 BUN/Creatinine Ratio 8.6 10-20 Random Glucose 186 70-99 mg/dl Lactic Acid Level 0.5 0.4-2.0 mmol/L Calcium Level 6.5 8.5-10.1 mg/dl Ionized Calcium 0.83 1.12-1.32 mmol/l Phosphorus Level 3.5 2.5-4.9 mg/dl Magnesium Level 2.4 1.8-2.4 mg/dl Total Bilirubin 0.4 0.2-1 mg/dl Aspartate Amino Transf (AST/SGOT) 15 15-37 U/L Alanine Aminotransferase (ALT/SGPT) 14 12-78 U/L Alkaline Phosphatase 49 45-117 U/L Total Creatine Kinase 136 26-192 U/L Total Protein 5.6 6.4-8.2 gm/dl Albumin 2.7 3.4-5.0 gm/dl Globulin 2.9 2.5-4.0 gm/dl Albumin/Globulin Ratio 0.9 0.9-2 Lipase 493 73-393 U/L Blood Gas Sample Site Art Line Bedside Blood Gas pH (LAB) 7.37 7.35-7.45 Bedside Blood Gas pCO2 (LAB) 30 35-46 mmHg Bedside Blood Gas pO2 (LAB) 146 80-95 mmHg Bedside Blood Gas HCO3 (LAB) 17 19-24 meq/L Bedside Blood Gas Total CO2 18 24-31 mEq/l Bedside Blood Gas Base Excess (LAB) -8.0 -9-1.8 meq/L Bedside Blood Gas O2 Saturation 99.0 90-95 % Mickey Test NA Oxygen Delivery Device Ventilator Bedside Oxygen Rate (breaths/min) 24 Blood Gas Minute Ventilation 11.3 Bedside FiO2 28 % Blood Gas Tidal Volume 450 Blood Gas PEEP 5 Test 05/23/17 05:07 05/23/17 05:59 05/23/17 06:12 05/23/17 07:00 Range/Units Bedside Glucose 195 183 177 70-90 mg/dl Blood Gas Sample Site Art Line Bedside Blood Gas pH (LAB) 7.36 7.35-7.45 Bedside Blood Gas pCO2 (LAB) 31 35-46 mmHg Bedside Blood Gas pO2 (LAB) 144 80-95 mmHg Bedside Blood Gas HCO3 (LAB) 17 19-24 meq/L Bedside Blood Gas Total CO2 18 24-31 mEq/l Bedside Blood Gas Base Excess (LAB) -8.0 -9-1.8 meq/L Bedside Blood Gas O2 Saturation 99.0 90-95 % Mickey Test NA Oxygen Delivery Device Ventilator Bedside FiO2 28 % Blood Gas PEEP 5 Test 05/23/17 08:24 05/23/17 08:52 05/23/17 12:34 Range/Units Bedside Glucose 209 70-90 mg/dl Sodium Level 135 136-145 mmol/L Potassium Level 3.6 3.5-5.1 mmol/L Chloride Level 101 98-107 mmol/L Carbon Dioxide Level 18 21-32 mmol/L Anion Gap 16.0 3-11 mmol/L Blood Urea Nitrogen 15 7-18 mg/dl Creatinine 1.99 0.60-1.20 mg/dl Est Creatinine Clear Calc Drug Dose 40.4 ml/min Estimated GFR () 34.5 Estimated GFR (Non- 29.8 BUN/Creatinine Ratio 7.3 10-20 Random Glucose 211 70-99 mg/dl Lactic Acid Level 0.8 0.4-2.0 mmol/L Calcium Level 6.7 8.5-10.1 mg/dl Ionized Calcium 0.86 0.89 1.12-1.32 mmol/l Phosphorus Level 2.9 2.5-4.9 mg/dl Magnesium Level 2.3 1.8-2.4 mg/dl Total Bilirubin 0.4 0.2-1 mg/dl Aspartate Amino Transf (AST/SGOT) 16 15-37 U/L Alanine Aminotransferase (ALT/SGPT) 12 12-78 U/L Alkaline Phosphatase 47 45-117 U/L Total Creatine Kinase 129 26-192 U/L Total Protein 5.7 6.4-8.2 gm/dl Albumin 2.7 3.4-5.0 gm/dl Globulin 3.0 2.5-4.0 gm/dl Albumin/Globulin Ratio 0.9 0.9-2 Lipase 337 73-393 U/L
[2017-05-23 13:17] LABS: PHOSPHORUS 1.2 mg/dl (2.5-4.9)
[2017-05-23] MEDS ORDERED: NURSING VERBAL MED ORDER ONE (14:00)
[2017-05-23] MEDS ORDERED: POTASSIUM PHOSPHATE INJ 24 MMOL in SODIUM CHLORIDE 0.9% 500ML 500 ML IV ONE (14:30)
[2017-05-23] MEDS ORDERED: INSULIN DRIP - STOP ORDER ONE (15:00)
--- NOTE | 2017-05-23 15:37 | Critical Care Progress Note ---
Critical Care Progress Note Date of Service May 23, 2017. ICU Day ICU Day Number: [address] Lea Subjective Patient extubated, sitting up, speaking comfortably, denies any present pain or acute concerns. Objective General appearance: Awake, alert, answering questions appropriately, in NAD. Head: NCAT. EOMI. Dry oral mucosa. Neck: Left IJ TLC in place, dressing c/d/i. Respiratory: Mildly coarse throughout. Cardiovascular: +S1S2 with regular tachycardia, no murmurs. Abdomen: + bowel sounds, soft, non-tender throughout. Obese habitus. Old laparotomy scar. Upper extremities: Moving easily and spontaneously. No edema. Old multiple distal scars (reportedly prior cat scratches), not acutely erythematous. Lower extremities: Moving easily and spontaneously. No edema. Neuro: Alert, no gross neuro deficits. Assessment & Plan 42 yo female with PMH DM1, staph bacteremia, C diff colitis s/p colectomy, presents with dizziness and vomiting, then AMS related to severe metabolic acidosis. [facility]: On admit, toxic-metabolic encephalopathy. Ammonia 116. UDS negative. Presently awake, answering commands, denies pain. CAM-ICU negative. Pulmonary: Initially intubated due to work of breathing. Extubated this am ( 13Feb). Last ABG 7.36. CVS: Initial periods of HTN, resolved. TnI trending up to 0.319, likely demand ischemia. - Restart amlodipine 10 mg (home dose). - Start propranolol 40 mg q6h (at home on ER 120 BID) . - Holding home lisinopril. ID: No present evidence of an active infection. 12Feb C diff negative. 11Feb MRSA nasal negative. 11Feb BCx x 2 no growth to date. 12Feb UCx reincubating. Negative procalcitonin. 12Feb transitioned to PO vanc and PO flagyl to help with gut charmaine. - ID onboard. Endo: Hx DM1. Was on metformin at home, held here. On lantus here. Normal TSH. Elevated random cortisol. Renal/metabolic: Started on bicarb push + drip for pH 6.81. Started on hemodialysis. Positive for ASA on admit. Further acidosis may be related to d- lactic acidosis (lab level pending). Treated with acetylcysteine (for acetaminophen on tox screen) to help replete glutathione stores. Noted OK here (Cr up to 2.75, prior in was 1.75), presently resolved to 0.94. On dialysis here to help remove excess acids. - Recommend no further metformin or probiotic use as outpatient. Already off topamax. - Replacing magnesium and calcium. - Goal take two liters off via dialysis today. - Bicarbonate PO tabs TID. GI: Elevated lipase, concerns for pancreatitis, but is trending downwards. 12Feb abdominal u/s notable for hepatic steatosis but no sonographic pancreatic abnormalities. - Progess as tolerated to DM2 diet. On protonix. Heme: Hb trending downwards to 8.2 (admit 14.3). No suspected bleeding source. - Type and screen today. Monitoring. Skin: Chronic scarring s/p cat scratches back in 2017. No peripheral edema. Lines: Right femoral dialysis catheter. Left IJ triple lumen. Left upper arm PIV. Code status: Full code. DVT prophy: Heparin (was off lovenox due to prior OK). + SCD's. PT/OT consult: Not yet. Disposition: ICU. Resident Physician Supervision Note: Dr. Castellanos was resident physician during care of patient. I separately evaluated patient and did history and exam. I discussed the case with the resident and generally agree with the findings and plan. Discussed the case with Dr. Everett, at this time he is still planning on another round of hemodialysis tomorrow. It appears to been significant improvement in her metabolic acidosis, she was able to be extubated and is able to maintain compensation from a respiratory standpoint. They were able to achieve some diuresis with hemodialysis today, hopefully we will be able to continue with fluid removal tomorrow I have personally spent 45 minutes of critical care time in the direct management of this patient. This is a life/limb threatening event. This includes time spent evaluating patient, direct bedside care, chart review, placing orders, interpretation of diagnostic studies, discussion with consultants, patient, and/or family members regarding treatment decisions, as well as other required patient management activities. This time is exclusive of all separately billable procedures, and teaching time and separate from and in addition to any other critical care service time. Documented By: Ed Lea DO Consults & Procedures Consultants: Infectious disease (Dr. Mares). Nephrology (Dr. Oncu) Procedures: - Intubated. - Right femoral dialysis catheter. - Left internal jugular triple lumen catheter. Data Medications: Current Inpatient Medications Medications (Trade) Dose Ordered Sig/Yudy Route Start Time Stop Time Status Last Admin Dose Admin Acetaminophen (Tylenol Tab) 650 mg Q4H PRN PO 05/21/17 18:15 06/20/17 18:14 Atorvastatin Calcium (Lipitor Tab) 10 mg DAILY PO 05/22/17 09:00 06/21/17 08:59 05/23/17 07:45 10 MG Duloxetine HCl (Cymbalta Cap) 60 mg QPM PO 05/21/17 21:00 06/20/17 20:59 05/22/17 22:05 60 MG Pregabalin (Lyrica Cap) 50 mg QPM PO 05/21/17 21:00 06/20/17 20:59 05/22/17 22:04 50 MG Miscellaneous Information (Order Awaiting Action) 1 ea QS N/A 05/22/17 08:00 06/21/17 07:59 Miscellaneous Information (Consult Glycemic Management Pharmacy) 1 ea UD N/A 05/21/17 21:37 06/20/17 21:36 Glucose (Glucose 40% Gel) 15-30 GRAMS 15 GRAMS... UD PRN PO 05/21/17 22:15 06/20/17 22:14 Glucose (Glucose Chew Tab) 4-8 Tablets 4 Tabl... UD PRN PO 05/21/17 22:15 06/20/17 22:14 Dextrose (Dextrose 50% 50ML Syringe) 25-50ML OF 50% DW IV FOR... UD PRN IV 05/21/17 22:15 06/20/17 22:14 Glucagon (Glucagon Inj) 1 mg UD PRN SQ 05/21/17 22:15 06/20/17 22:14 Heparin Sodium (Porcine) (Heparin 10 Unit/ ml 5 ml Flush) 5 ml PRN PRN FLUSH 05/22/17 02:30 06/21/17 02:29 Metronidazole (Flagyl Tab) 500 mg TID PO 05/22/17 09:35 05/23/17 23:59 05/23/17 15:09 500 MG Vancomycin HCl (Vancomycin Oral Soln) 250 mg QID PO 05/22/17 09:36 05/23/17 23:59 05/23/17 12:03 250 MG Raspberry (Raspberry Syrup 5ml Cup) 5 ml QID PO 05/22/17 09:37 05/23/17 23:59 05/23/17 12:00 5 ML Heparin Sodium (Porcine) (Heparin Sq 5000 Unit/0.5ml) 5,000 unit Q8 SC 05/22/17 14:00 06/21/17 13:59 05/23/17 15:10 5,000 UNIT Potassium Chloride 20 meq/ Prmx 100 ml @ 50 mls/hr Q2H IV 05/23/17 12:00 05/23/17 15:59 05/23/17 14:22 50 MLS/HR Sodium Bicarbonate (Sodium Bicarbonate Tab) 1,300 mg TID PO 05/23/17 09:00 06/22/17 08:59 05/23/17 15:09 1,300 MG Pantoprazole Sodium (Protonix Tab) 40 mg QAM PO 05/23/17 11:00 06/22/17 10:59 05/23/17 11:59 40 MG Insulin Aspart (novoLOG ASPART) SLIDING SCALE ACHS SC 05/23/17 16:00 06/22/17 15:59 Amlodipine Besylate (Norvasc Tab) 10 mg QAM PO 05/23/17 11:00 06/22/17 10:59 05/23/17 11:58 10 MG Propranolol HCl (Inderal Tab) 40 mg Q6 PO 05/23/17 11:00 06/22/17 10:59 05/23/17 11:59 40 MG Insulin Aspart (novoLOG ASPART) SLIDING SCALE TODAY@0000,0400 SC 05/24/17 00:00 05/24/17 04:01 Insulin Glargine (Lantus Solostar Pen) HS ONCE SC 05/23/17 21:00 05/23/17 21:01 Insulin Glargine (Lantus Solostar Pen) BID SC 05/24/17 09:00 06/23/17 08:59 Potassium Phosphate 24 mmol/ Sodium Chloride 508 ml @ 88 mls/hr TODAY@1430 ONCE IV 05/23/17 14:30 05/23/17 20:16 05/23/17 15:11 88 MLS/HR I & O: 24-Hour Column 05/24/17 08:00 Intake Total 1090 ml Output Total 3000 ml Balance -1910 ml Vital Signs: Date Time Temp Pulse Resp B/P (MAP) Pulse Ox O2 Delivery O2 Flow Rate FiO2 05/23/17 15:13 36.8 116 121/57 (78) 05/23/17 14:15 109 11 134/65 (88) 100 05/23/17 14:01 109 10 139/68 (91) 100 05/23/17 14:00 110 17 135/65 (88) 100 05/23/17 14:00 36.8 112 18 131/73 (92) 100 Nasal Cannula 2.0 05/23/17 13:45 109 13 130/64 (86) 100 05/23/17 13:30 109 17 147/72 (97) 100 05/23/17 13:15 108 18 147/72 (97) 99 05/23/17 13:01 108 21 134/66 (88) 99 05/23/17 13:00 108 22 138/67 (90) 99 05/23/17 12:46 111 20 135/60 (85) 99 05/23/17 12:45 111 18 137/60 (85) 99 05/23/17 12:31 115 19 133/58 (83) 100 05/23/17 12:30 115 22 126/60 (82) 100 05/23/17 12:16 124 21 127/62 (83) 100 05/23/17 12:15 120 123/59 05/23/17 12:15 123 27 129/63 (85) 100 05/23/17 12:00 122 14 137/65 (89) 100 05/23/17 12:00 Nasal Cannula 2.0 05/23/17 12:00 124 131/58 05/23/17 12:00 36.6 112 18 118/80 (93) 100 Nasal Cannula 2.0 05/23/17 11:46 119 17 137/77 (97) 100 05/23/17 11:45 120 134/78 05/23/17 11:45 119 22 142/80 (100) 100 05/23/17 11:42 116 13 139/68 (91) 05/23/17 11:31 120 17 143/79 (100) 100 05/23/17 11:30 120 14 144/80 (101) 100 05/23/17 11:27 119 123/75 05/23/17 11:16 120 19 141/72 (95) 100 05/23/17 11:15 119 21 138/71 (93) 100 05/23/17 11:15 120 141/73 05/23/17 11:01 120 16 132/64 (86) 100 05/23/17 11:00 119 20 131/65 (87) 100 05/23/17 11:00 119 129/66 05/23/17 10:46 120 19 127/64 (85) 100 05/23/17 10:45 118 18 125/65 (85) 100 05/23/17 10:45 119 125/64 05/23/17 10:31 117 18 120/62 (81) 100 05/23/17 10:30 118 17 127/65 (85) 100 05/23/17 10:30 118 129/71 05/23/17 10:16 119 10 133/69 (90) 100 05/23/17 10:15 116 126/65 05/23/17 10:15 118 8 126/65 (85) 100 05/23/17 10:01 117 18 130/65 (86) 100 05/23/17 10:00 117 143/76 05/23/17 10:00 116 20 134/69 (90) 100 05/23/17 09:46 116 17 140/72 (94) 100 05/23/17 09:45 117 18 128/65 (86) 100 05/23/17 09:45 118 136/69 05/23/17 09:31 116 18 137/70 (92) 100 05/23/17 09:30 116 135/68 05/23/17 09:30 116 17 146/74 (98) 100 05/23/17 09:16 113 19 132/63 (86) 100 05/23/17 09:15 113 139/68 05/23/17 09:15 114 18 134/65 (88) 99 05/23/17 09:09 117 18 129/60 (83) 100 05/23/17 09:00 37.6 116 132/62 (85) 05/23/17 09:00 116 18 132/63 (86) 99 Oxymask 2.0 05/23/17 08:45 112 22 122/57 (78) 99 05/23/17 08:32 126 140/72 05/23/17 08:30 126 22 145/62 (89) 100 05/23/17 08:15 126 19 164/67 (99) 99 Oxymask 4.0 05/23/17 08:15 Oxymask 4.0 05/23/17 08:01 122 13 158/69 (98) 100 05/23/17 08:00 28 05/23/17 08:00 121 11 155/65 (95) 100 05/23/17 08:00 36.4 126 20 140/62 (88) 100 Mechanical Ventilator 28 05/23/17 07:45 121 13 151/64 (93) 100 05/23/17 07:30 122 14 151/63 (92) 100 05/23/17 07:15 120 15 151/64 (93) 100 05/23/17 07:13 28 05/23/17 07:00 121 16 146/62 (90) 100 05/23/17 06:00 120 17 151/76 (101) 100 Mechanical Ventilator 28 05/23/17 05:18 28 05/23/17 04:00 37.3 116 24 135/69 (91) 100 Mechanical Ventilator 28 05/23/17 04:00 100 Mechanical Ventilator 28 05/23/17 04:00 28 05/23/17 02:15 28 05/23/17 02:00 117 24 151/59 (89) 100 Mechanical Ventilator 28 05/23/17 00:01 37.2 110 24 130/70 (90) 100 Mechanical Ventilator 28 05/22/17 23:59 28 05/22/17 23:59 100 Mechanical Ventilator 28 05/22/17 23:20 28 05/22/17 22:00 108 24 170/77 (108) 99 Mechanical Ventilator 28 05/22/17 20:07 28 05/22/17 20:05 28 05/22/17 20:00 37.4 110 28 137/75 (95) 100 Mechanical Ventilator 28 05/22/17 20:00 28 05/22/17 20:00 100 Mechanical Ventilator 28 05/22/17 18:40 36.9 102 113/62 (79) 05/22/17 18:15 106 101/56 05/22/17 18:15 28 05/22/17 18:05 28 05/22/17 18:01 37.2 106 35 113/63 (76) 100 113/60 05/22/17 18:00 106 118/61 05/22/17 17:46 37.2 110 35 107/61 (77) 100 117/61 05/22/17 17:45 110 110/59 05/22/17 17:31 37.2 124 35 120/69 (92) 99 165/68 05/22/17 17:30 134 149/65 05/22/17 17:16 37.2 107 35 124/64 (80) 100 127/62 05/22/17 17:15 107 135/64 05/22/17 17:01 37.2 108 35 112/64 (74) 100 117/59 05/22/17 17:00 108 119/60 05/22/17 16:46 37.2 105 35 112/63 (72) 100 115/57 05/22/17 16:45 107 117/57 05/22/17 16:31 37.2 106 35 115/59 (74) 100 120/58 05/22/17 16:30 106 118/59 05/22/17 16:16 37.2 106 35 112/56 (70) 100 113/55 05/22/17 16:15 106 113/55 05/22/17 16:00 28 05/22/17 16:00 37.3 102 35 101/56 (71) 100 115/57 05/22/17 16:00 Mechanical Ventilator 28 05/22/17 16:00 102 101/56 05/22/17 15:46 37.3 104 35 110/62 (75) 100 118/58 05/22/17 15:45 103 119/59 Laboratory Results: Last 24 Hours Test 05/22/17 16:03 05/22/17 16:13 05/22/17 16:30 05/22/17 17:38 Sodium Level 137 mmol/L Potassium Level 2.9 mmol/L Chloride Level 106 mmol/L Carbon Dioxide Level 16 mmol/L Anion Gap 15.0 mmol/L Blood Urea Nitrogen 26 mg/dl Creatinine 1.98 mg/dl Est Creatinine Clear Calc Drug Dose 39.9 ml/min Estimated GFR () 34.7 Estimated GFR (Non- 30.0 BUN/Creatinine Ratio 12.9 Random Glucose 140 mg/dl Lactic Acid Level 0.3 mmol/L Calcium Level 6.6 mg/dl Ionized Calcium 0.95 mmol/l Phosphorus Level 1.2 mg/dl Magnesium Level 1.8 mg/dl Total Bilirubin 0.4 mg/dl Aspartate Amino Transf (AST/SGOT) 14 U/L Alanine Aminotransferase (ALT/SGPT) 12 U/L Alkaline Phosphatase 50 U/L Total Creatine Kinase 81 U/L Total Protein 5.0 gm/dl Albumin 2.4 gm/dl Globulin 2.6 gm/dl Albumin/Globulin Ratio 0.9 Lipase 1443 U/L Bedside Glucose 144 mg/dl 112 mg/dl Blood Gas Sample Site Art Line Bedside Blood Gas pH (LAB) 7.40 Bedside Blood Gas pCO2 (LAB) 27 mmHg Bedside Blood Gas pO2 (LAB) 147 mmHg Bedside Blood Gas HCO3 (LAB) 16 meq/L Bedside Blood Gas Total CO2 17 mEq/l Bedside Blood Gas Base Excess (LAB) -9.0 meq/L Bedside Blood Gas O2 Saturation 99.0 % Mickey Test NA Oxygen Delivery Device Ventilator Bedside Oxygen Rate (breaths/min) 35 Blood Gas Minute Ventilation 15.8 Bedside FiO2 28 % Blood Gas Tidal Volume 450 Blood Gas PEEP 5 Test 05/22/17 18:46 05/22/17 20:00 05/22/17 20:10 05/22/17 21:16 Bedside Glucose 109 mg/dl 103 mg/dl Sodium Level 134 mmol/L Potassium Level 2.3 mmol/L Chloride Level 100 mmol/L Carbon Dioxide Level 21 mmol/L Anion Gap 14.0 mmol/L Blood Urea Nitrogen 15 mg/dl Creatinine 1.42 mg/dl Est Creatinine Clear Calc Drug Dose 55.7 ml/min Estimated GFR () 51.9 Estimated GFR (Non- 44.8 BUN/Creatinine Ratio 10.6 Random Glucose 103 mg/dl Lactic Acid Level 0.4 mmol/L Calcium Level 6.8 mg/dl Ionized Calcium 0.88 mmol/l Phosphorus Level 1.0 mg/dl Magnesium Level 1.7 mg/dl Total Bilirubin 0.4 mg/dl Aspartate Amino Transf (AST/SGOT) 17 U/L Alanine Aminotransferase (ALT/SGPT) 13 U/L Alkaline Phosphatase 47 U/L Total Creatine Kinase 102 U/L Total Protein 5.5 gm/dl Albumin 2.6 gm/dl Globulin 2.9 gm/dl Albumin/Globulin Ratio 0.9 Lipase 830 U/L Bedside Glucose (other) 105 mg/dl Test 05/22/17 22:07 05/22/17 23:01 05/22/17 23:41 05/22/17 23:42 Bedside Glucose 112 mg/dl 122 mg/dl 135 mg/dl Sodium Level 135 mmol/L Potassium Level 3.1 mmol/L Chloride Level 100 mmol/L Carbon Dioxide Level 22 mmol/L Anion Gap 13.0 mmol/L Blood Urea Nitrogen 17 mg/dl Creatinine 1.71 mg/dl Est Creatinine Clear Calc Drug Dose 46.2 ml/min Estimated GFR () 41.5 Estimated GFR (Non- 35.8 BUN/Creatinine Ratio 9.8 Random Glucose 134 mg/dl Lactic Acid Level 0.7 mmol/L Calcium Level 6.6 mg/dl Ionized Calcium 0.87 mmol/l Phosphorus Level 2.1 mg/dl Magnesium Level 1.7 mg/dl Total Bilirubin 0.5 mg/dl Aspartate Amino Transf (AST/SGOT) 16 U/L Alanine Aminotransferase (ALT/SGPT) 14 U/L Alkaline Phosphatase 49 U/L Total Creatine Kinase 136 U/L Total Protein 5.5 gm/dl Albumin 2.8 gm/dl Globulin 2.7 gm/dl Albumin/Globulin Ratio 1.0 Lipase 681 U/L Test 05/23/17 01:07 05/23/17 02:07 05/23/17 03:58 05/23/17 04:23 Bedside Glucose 141 mg/dl 165 mg/dl 183 mg/dl White Blood Count 8.41 K/uL Red Blood Count 3.03 M/uL Hemoglobin 8.2 g/dL Hematocrit 23.7 % Mean Corpuscular Volume 78.2 fL Mean Corpuscular Hemoglobin 27.1 pg Mean Corpuscular Hemoglobin Concent 34.6 g/dl Platelet Count 245 K/uL Mean Platelet Volume 8.0 fL Neutrophils (%) (Auto) 84.3 % Lymphocytes (%) (Auto) 8.6 % Monocytes (%) (Auto) 6.1 % Eosinophils (%) (Auto) 0.1 % Basophils (%) (Auto) 0.1 % Neutrophils # (Auto) 7.09 K/uL Lymphocytes # (Auto) 0.72 K/uL Monocytes # (Auto) 0.51 K/uL Eosinophils # (Auto) 0.01 K/uL Basophils # (Auto) 0.01 K/uL RDW Standard Deviation 53.6 fL RDW Coefficient of Variation 19.0 % Immature Granulocyte % (Auto) 0.8 % Immature Granulocyte # (Auto) 0.07 K/uL Nucleated RBC Absolute Count (auto) 0.03 K/uL Nucleated Red Blood Cells % 0.3 % Toxic Vacuolation 2+ Erythrocyte Sedimentation Rate 5 mm/hr Sodium Level 135 mmol/L Potassium Level 2.7 mmol/L Chloride Level 100 mmol/L Carbon Dioxide Level 18 mmol/L Anion Gap 17.0 mmol/L Blood Urea Nitrogen 16 mg/dl Creatinine 1.86 mg/dl Est Creatinine Clear Calc Drug Dose 42.5 ml/min Estimated GFR () 37.5 Estimated GFR (Non- 32.3 BUN/Creatinine Ratio 8.6 Random Glucose 186 mg/dl Lactic Acid Level 0.5 mmol/L Calcium Level 6.5 mg/dl Ionized Calcium 0.83 mmol/l Phosphorus Level 3.5 mg/dl Magnesium Level 2.4 mg/dl Total Bilirubin 0.4 mg/dl Aspartate Amino Transf (AST/SGOT) 15 U/L Alanine Aminotransferase (ALT/SGPT) 14 U/L Alkaline Phosphatase 49 U/L Total Creatine Kinase 136 U/L Total Protein 5.6 gm/dl Albumin 2.7 gm/dl Globulin 2.9 gm/dl Albumin/Globulin Ratio 0.9 Lipase 493 U/L Test 05/23/17 05:06 05/23/17 05:07 05/23/17 05:59 05/23/17 06:12 Blood Gas Sample Site Art Line Art Line Bedside Blood Gas pH (LAB) 7.37 7.36 Bedside Blood Gas pCO2 (LAB) 30 mmHg 31 mmHg Bedside Blood Gas pO2 (LAB) 146 mmHg 144 mmHg Bedside Blood Gas HCO3 (LAB) 17 meq/L 17 meq/L Bedside Blood Gas Total CO2 18 mEq/l 18 mEq/l Bedside Blood Gas Base Excess (LAB) -8.0 meq/L -8.0 meq/L Bedside Blood Gas O2 Saturation 99.0 % 99.0 % Mickey Test NA NA Oxygen Delivery Device Ventilator Ventilator Bedside Oxygen Rate (breaths/min) 24 Blood Gas Minute Ventilation 11.3 Bedside FiO2 28 % 28 % Blood Gas Tidal Volume 450 Blood Gas PEEP 5 5 Bedside Glucose 195 mg/dl 183 mg/dl Test 05/23/17 07:00 05/23/17 08:24 2/13/18 08:52 05/23/17 12:34 Bedside Glucose 177 mg/dl 209 mg/dl Sodium Level 135 mmol/L 136 mmol/L Potassium Level 3.6 mmol/L 3.1 mmol/L Chloride Level 101 mmol/L 97 mmol/L Carbon Dioxide Level 18 mmol/L 25 mmol/L Anion Gap 16.0 mmol/L 14.0 mmol/L Blood Urea Nitrogen 15 mg/dl 6 mg/dl Creatinine 1.99 mg/dl 0.94 mg/dl Est Creatinine Clear Calc Drug Dose 40.4 ml/min 86.4 ml/min Estimated GFR () 34.5 85.5 Estimated GFR (Non- 29.8 73.8 BUN/Creatinine Ratio 7.3 6.5 Random Glucose 211 mg/dl 146 mg/dl Lactic Acid Level 0.8 mmol/L 0.9 mmol/L Calcium Level 6.7 mg/dl 7.2 mg/dl Ionized Calcium 0.86 mmol/l 0.89 mmol/l Phosphorus Level 2.9 mg/dl 1.2 mg/dl Magnesium Level 2.3 mg/dl 1.9 mg/dl Total Bilirubin 0.4 mg/dl 0.5 mg/dl Aspartate Amino Transf (AST/SGOT) 16 U/L 17 U/L Alanine Aminotransferase (ALT/SGPT) 12 U/L 14 U/L Alkaline Phosphatase 47 U/L 51 U/L Total Creatine Kinase 129 U/L 140 U/L Total Protein 5.7 gm/dl 6.0 gm/dl Albumin 2.7 gm/dl 2.9 gm/dl Globulin 3.0 gm/dl 3.1 gm/dl Albumin/Globulin Ratio 0.9 0.9 Lipase 337 U/L 350 U/L Resident Tracking Resident Involvement: Resident Care Provided Care Provided: Adult Hospital Medicine (ICU care)
[2017-05-23 16:23] LABS: ALBUMIN 2.8 gm/dl (3.4-5.0); CALCIUM 7.2 mg/dl (8.5-10.1); CREATININE 1.3 mg/dl (0.60-1.20); POTASSIUM 3.2 mmol/L (3.5-5.1)
[2017-05-23 16:44] LABS: PHOSPHORUS 1.3 mg/dl (2.5-4.9); TOTAL PROTEIN 5.8 gm/dl (6.4-8.2)
[2017-05-23] MEDS: DULOXETINE HCL 60 MG CAP PO SCH (20:28)
[2017-05-23] MEDS: PREGABALIN 50 MG CAP PO SCH (20:28)
[2017-05-23] MEDS ORDERED: NovoLIN R BOLUS FROM BAG IV ONE (20:30)
[2017-05-23 21:50] LABS: CALCIUM 7.2 mg/dl (8.5-10.1); CREATININE 1.7 mg/dl (0.60-1.20); POTASSIUM 3.1 mmol/L (3.5-5.1)
[2017-05-23] MEDS ORDERED: POTASSIUM CHLORIDE 20 MEQ TABCR PO STA (22:23)
[2017-05-24] VITALS (13 sets, daily range): BP systolic 129–180; BP diastolic 67–106; PULSE 89–109; TEMP 36.5–37; O2SAT 92–99
[2017-05-24] MEDS ORDERED: INSULIN ASPART 100 UNITS/ML 3 ML PEN SC SCH
[2017-05-24 05:46] LABS: HEMATOCRIT 23.9 % (37-47); HEMOGLOBIN 8.1 g/dL (12.0-16.0); IG# 0.02 K/uL (0.00-0.02); LYMPH % 10.7 %; LYMPH ABS # 0.72 K/uL (1.2-3.4); MEAN CELL VOLUME 80.7 fL (80-100); MEAN CORPUSCULAR HEMOGLOBIN 27.4 pg (25-34); MEAN CORPUSCULAR HGB CONC 33.9 g/dl (32-36); MEAN PLATELET VOLUME 8.4 fL (7.4-10.4); MONO % 13.6 %; MONO ABS # 0.92 K/uL (0.11-0.59); NEUT % 75.4 %; NEUT ABS # 5.09 K/uL (1.4-6.5); NUCLEATED RED BLOOD CELL ABS 0.03 K/uL (0-0); PLATELET COUNT 245 K/uL (130-400); RED CELL DISTRIBUTION WIDTH CV 19.2 % (11.5-14.5); WHITE BLOOD COUNT 6.75 K/uL (4.8-10.8)
[2017-05-24 06:15] LABS: CALCIUM 7.4 mg/dl (8.5-10.1); CREATININE 1.64 mg/dl (0.60-1.20); POTASSIUM 3.1 mmol/L (3.5-5.1)
[2017-05-24 06:26] LABS: PHOSPHORUS 1.2 mg/dl (2.5-4.9)
[2017-05-24] MEDS ORDERED: POTASSIUM PHOS 3 MMOL/1 ML INFUSION IV STA (06:42)
[2017-05-24] MEDS ORDERED: POTASSIUM CHLORIDE 20 MEQ TABCR PO STA (06:42)
[2017-05-24] MEDS: PROPRANOLOL HCL 20 MG TAB PO SCH ×2 (06:44→13:11)
[2017-05-24] MEDS: HEPARIN SOD 5000 UNIT/0.5 ML CARP SC SCH ×3 (06:44→20:47)
[2017-05-24] MEDS ORDERED: POTASSIUM PHOSPHATE INJ 30 MMOL in SODIUM CHLORIDE 0.9% 500ML 500 ML IV ONE (07:15)
--- NOTE | 2017-05-24 07:23 | Nephrology Progress Note ---
Nephrology Progress Note Date of Service: May 24, 2017. Subjective 42 yo female with underlying ckd stage 4 with baseline creatinine of 2.2 who presented with significant acidosis and required intubation and dialysis. pt now extubated, urianting well, acidosis corrected. pt comfortable. Objective Date Time Temp Pulse Resp B/P (MAP) Pulse Ox O2 Delivery O2 Flow Rate FiO2 05/24/17 06:00 100 20 177/89 (118) 96 Room Air 05/24/17 04:00 Room Air 05/24/17 04:00 36.8 101 16 153/77 (102) 94 Room Air 05/24/17 02:00 99 17 138/67 (90) 92 Room Air 05/24/17 00:01 36.8 109 15 162/75 (104) 94 Room Air 05/23/17 23:59 Room Air 05/23/17 22:00 111 16 156/74 (101) 95 Room Air 05/23/17 20:00 36.8 107 18 156/71 (99) 95 Room Air 05/23/17 20:00 Room Air 05/23/17 18:00 37.0 116 18 141/83 (102) 99 Nasal Cannula 2.0 05/23/17 17:30 114 18 148/69 (95) 99 05/23/17 17:15 114 22 153/76 (101) 99 05/23/17 17:01 113 13 155/76 (102) 98 05/23/17 17:00 113 15 153/74 (100) 99 05/23/17 16:45 115 17 150/77 (101) 100 05/23/17 16:30 111 17 147/74 (98) 100 05/23/17 16:15 113 17 144/71 (95) 100 05/23/17 16:00 37.0 112 16 138/76 (96) 99 Nasal Cannula 2.0 05/23/17 16:00 Nasal Cannula 2.0 05/23/17 15:45 111 22 140/77 (98) 100 05/23/17 15:30 111 17 136/74 (94) 99 05/23/17 15:15 113 14 158/86 (110) 100 05/23/17 15:13 36.8 116 121/57 (78) 05/23/17 15:01 109 0 137/71 (93) 100 05/23/17 15:00 109 0 137/69 (91) 99 05/23/17 14:45 110 16 133/68 (89) 100 05/23/17 14:30 109 2 137/68 (91) 100 05/23/17 14:15 109 11 134/65 (88) 100 05/23/17 14:01 109 10 139/68 (91) 100 05/23/17 14:00 110 17 135/65 (88) 100 05/23/17 14:00 36.8 112 18 131/73 (92) 100 Nasal Cannula 2.0 05/23/17 13:45 109 13 130/64 (86) 100 05/23/17 13:30 109 17 147/72 (97) 100 05/23/17 13:15 108 18 147/72 (97) 99 05/23/17 13:01 108 21 134/66 (88) 99 05/23/17 13:00 108 22 138/67 (90) 99 05/23/17 12:46 111 20 135/60 (85) 99 05/23/17 12:45 111 18 137/60 (85) 99 05/23/17 12:31 115 19 133/58 (83) 100 05/23/17 12:30 115 22 126/60 (82) 100 05/23/17 12:16 124 21 127/62 (83) 100 05/23/17 12:15 120 123/59 05/23/17 12:15 123 27 129/63 (85) 100 05/23/17 12:00 122 14 137/65 (89) 100 05/23/17 12:00 Nasal Cannula 2.0 05/23/17 12:00 124 131/58 05/23/17 12:00 36.6 112 18 118/80 (93) 100 Nasal Cannula 2.0 05/23/17 11:46 119 17 137/77 (97) 100 05/23/17 11:45 120 134/78 05/23/17 11:45 119 22 142/80 (100) 100 05/23/17 11:42 116 13 139/68 (91) 05/23/17 11:31 120 17 143/79 (100) 100 05/23/17 11:30 120 14 144/80 (101) 100 05/23/17 11:27 119 123/75 05/23/17 11:16 120 19 141/72 (95) 100 05/23/17 11:15 119 21 138/71 (93) 100 05/23/17 11:15 120 141/73 05/23/17 11:01 120 16 132/64 (86) 100 05/23/17 11:00 119 20 131/65 (87) 100 05/23/17 11:00 119 129/66 05/23/17 10:46 120 19 127/64 (85) 100 05/23/17 10:45 118 18 125/65 (85) 100 05/23/17 10:45 119 125/64 05/23/17 10:31 117 18 120/62 (81) 100 05/23/17 10:30 118 17 127/65 (85) 100 05/23/17 10:30 118 129/71 05/23/17 10:16 119 10 133/69 (90) 100 05/23/17 10:15 116 126/65 05/23/17 10:15 118 8 126/65 (85) 100 05/23/17 10:01 117 18 130/65 (86) 100 05/23/17 10:00 117 143/76 05/23/17 10:00 116 20 134/69 (90) 100 05/23/17 09:46 116 17 140/72 (94) 100 05/23/17 09:45 117 18 128/65 (86) 100 05/23/17 09:45 118 136/69 05/23/17 09:31 116 18 137/70 (92) 100 05/23/17 09:30 116 135/68 05/23/17 09:30 116 17 146/74 (98) 100 05/23/17 09:16 113 19 132/63 (86) 100 05/23/17 09:15 113 139/68 05/23/17 09:15 114 18 134/65 (88) 99 05/23/17 09:09 117 18 129/60 (83) 100 05/23/17 09:00 37.6 116 132/62 (85) 05/23/17 09:00 116 18 132/63 (86) 99 Oxymask 2.0 05/23/17 08:45 112 22 122/57 (78) 99 05/23/17 08:32 126 140/72 05/23/17 08:30 126 22 145/62 (89) 100 05/23/17 08:15 126 19 164/67 (99) 99 Oxymask 4.0 05/23/17 08:15 Oxymask 4.0 05/23/17 08:01 122 13 158/69 (98) 100 05/23/17 08:00 28 05/23/17 08:00 121 11 155/65 (95) 100 05/23/17 08:00 36.4 126 20 140/62 (88) 100 Mechanical Ventilator 28 05/23/17 07:45 121 13 151/64 (93) 100 05/23/17 07:30 122 14 151/63 (92) 100 Physical Exam: [id number] Eyes-no scleral icterus ENT-mmm Neck-supple Lungs-clear Heart-tachy Abdomen-bs+ s/nt/nd Extremities-no c/c/e Neuro-nonfocal Current Inpatient Medications Medications (Trade) Dose Ordered Sig/Yudy Route Start Time Stop Time Status Last Admin Dose Admin Acetaminophen (Tylenol Tab) 650 mg Q4H PRN PO 05/21/17 18:15 06/20/17 18:14 Atorvastatin Calcium (Lipitor Tab) 10 mg DAILY PO 05/22/17 09:00 06/21/17 08:59 05/23/17 07:45 10 MG Duloxetine HCl (Cymbalta Cap) 60 mg QPM PO 05/21/17 21:00 06/20/17 20:59 05/23/17 20:28 60 MG Pregabalin (Lyrica Cap) 50 mg QPM PO 05/21/17 21:00 06/20/17 20:59 05/23/17 20:28 50 MG Miscellaneous Information (Order Awaiting Action) 1 ea QS N/A 05/22/17 08:00 06/21/17 07:59 Miscellaneous Information (Consult Glycemic Management Pharmacy) 1 ea UD N/A 05/21/17 21:37 06/20/17 21:36 Glucose (Glucose 40% Gel) 15-30 GRAMS 15 GRAMS... UD PRN PO 05/21/17 22:15 06/20/17 22:14 Glucose (Glucose Chew Tab) 4-8 Tablets 4 Tabl... UD PRN PO 05/21/17 22:15 06/20/17 22:14 Dextrose (Dextrose 50% 50ML Syringe) 25-50ML OF 50% DW IV FOR... UD PRN IV 05/21/17 22:15 06/20/17 22:14 Glucagon (Glucagon Inj) 1 mg UD PRN SQ 05/21/17 22:15 06/20/17 22:14 Heparin Sodium (Porcine) (Heparin 10 Unit/ ml 5 ml Flush) 5 ml PRN PRN FLUSH 05/22/17 02:30 06/21/17 02:29 Heparin Sodium (Porcine) (Heparin Sq 5000 Unit/0.5ml) 5,000 unit Q8 SC 05/22/17 14:00 06/21/17 13:59 05/24/17 06:44 5,000 UNIT Sodium Bicarbonate (Sodium Bicarbonate Tab) 1,300 mg TID PO 05/23/17 09:00 06/22/17 08:59 05/23/17 20:28 1,300 MG Pantoprazole Sodium (Protonix Tab) 40 mg QAM PO 05/23/17 11:00 06/22/17 10:59 05/23/17 11:59 40 MG Insulin Aspart (novoLOG ASPART) SLIDING SCALE ACHS SC 05/23/17 16:00 06/22/17 15:59 Future Hold 05/23/17 17:16 14 UNITS Amlodipine Besylate (Norvasc Tab) 10 mg QAM PO 05/23/17 11:00 06/22/17 10:59 05/23/17 11:58 10 MG Propranolol HCl (Inderal Tab) 40 mg Q6 PO 05/23/17 11:00 06/22/17 10:59 05/24/17 06:44 40 MG Insulin Aspart (novoLOG ASPART) SLIDING SCALE TODAY@0000,0400 SC 05/24/17 00:00 Future Hold Insulin Glargine (Lantus Solostar Pen) BID SC 05/24/17 09:00 06/23/17 08:59 Insulin Human Regular 250 units/ Sodium Chloride 252.5 ml @ 0 mls/hr Q24H IV 05/23/17 20:30 06/22/17 20:29 05/23/17 20:33 3.3 MLS/HR Insulin Aspart (novoLOG ASPART) SLIDING SCALE PCHS SC 05/23/17 21:00 06/22/17 20:59 Potassium Phosphate 30 mmol/ Sodium Chloride 510 ml @ 88 mls/hr ONE ONCE IV 05/24/17 07:15 05/24/17 13:02 Last 24 Hours Test 05/23/17 08:24 05/23/17 08:52 05/23/17 09:13 05/23/17 10:07 Bedside Glucose 209 mg/dl 217 mg/dl 169 mg/dl Sodium Level 135 mmol/L Potassium Level 3.6 mmol/L Chloride Level 101 mmol/L Carbon Dioxide Level 18 mmol/L Anion Gap 16.0 mmol/L Blood Urea Nitrogen 15 mg/dl Creatinine 1.99 mg/dl Est Creatinine Clear Calc Drug Dose 40.4 ml/min Estimated GFR () 34.5 Estimated GFR (Non- 29.8 BUN/Creatinine Ratio 7.3 Random Glucose 211 mg/dl Lactic Acid Level 0.8 mmol/L Calcium Level 6.7 mg/dl Ionized Calcium 0.86 mmol/l Phosphorus Level 2.9 mg/dl Magnesium Level 2.3 mg/dl Total Bilirubin 0.4 mg/dl Aspartate Amino Transf (AST/SGOT) 16 U/L Alanine Aminotransferase (ALT/SGPT) 12 U/L Alkaline Phosphatase 47 U/L Total Creatine Kinase 129 U/L Total Protein 5.7 gm/dl Albumin 2.7 gm/dl Globulin 3.0 gm/dl Albumin/Globulin Ratio 0.9 Lipase 337 U/L Test 05/23/17 11:03 05/23/17 12:04 05/23/17 12:34 05/23/17 13:31 Bedside Glucose 139 mg/dl 123 mg/dl 174 mg/dl Sodium Level 136 mmol/L Potassium Level 3.1 mmol/L Chloride Level 97 mmol/L Carbon Dioxide Level 25 mmol/L Anion Gap 14.0 mmol/L Blood Urea Nitrogen 6 mg/dl Creatinine 0.94 mg/dl Est Creatinine Clear Calc Drug Dose 86.4 ml/min Estimated GFR () 85.5 Estimated GFR (Non- 73.8 BUN/Creatinine Ratio 6.5 Random Glucose 146 mg/dl Lactic Acid Level 0.9 mmol/L Calcium Level 7.2 mg/dl Ionized Calcium 0.89 mmol/l Phosphorus Level 1.2 mg/dl Magnesium Level 1.9 mg/dl Total Bilirubin 0.5 mg/dl Aspartate Amino Transf (AST/SGOT) 17 U/L Alanine Aminotransferase (ALT/SGPT) 14 U/L Alkaline Phosphatase 51 U/L Total Creatine Kinase 140 U/L Total Protein 6.0 gm/dl Albumin 2.9 gm/dl Globulin 3.1 gm/dl Albumin/Globulin Ratio 0.9 Lipase 350 U/L Test 05/23/17 15:55 05/23/17 15:57 05/23/17 16:28 05/23/17 20:11 Sodium Level 139 mmol/L Potassium Level 3.2 mmol/L Chloride Level 100 mmol/L Carbon Dioxide Level 27 mmol/L Anion Gap 12.0 mmol/L Blood Urea Nitrogen 7 mg/dl Creatinine 1.30 mg/dl Est Creatinine Clear Calc Drug Dose 61.8 ml/min Estimated GFR () 57.8 Estimated GFR (Non- 49.9 BUN/Creatinine Ratio 5.6 Random Glucose 211 mg/dl Lactic Acid Level 0.9 mmol/L Calcium Level 7.2 mg/dl Phosphorus Level 1.3 mg/dl Magnesium Level 2.0 mg/dl Total Bilirubin 0.4 mg/dl Aspartate Amino Transf (AST/SGOT) 17 U/L Alanine Aminotransferase (ALT/SGPT) 14 U/L Alkaline Phosphatase 46 U/L Total Creatine Kinase 126 U/L Total Protein 5.8 gm/dl Albumin 2.8 gm/dl Globulin 3.0 gm/dl Albumin/Globulin Ratio 0.9 Lipase 376 U/L Bedside Glucose 209 mg/dl 318 mg/dl Ionized Calcium 0.90 mmol/l Test 05/23/17 20:12 05/23/17 21:26 05/23/17 21:27 05/23/17 22:25 Bedside Glucose 302 mg/dl 327 mg/dl 326 mg/dl Sodium Level 139 mmol/L Potassium Level 3.1 mmol/L Chloride Level 101 mmol/L Carbon Dioxide Level 29 mmol/L Anion Gap 9.0 mmol/L Blood Urea Nitrogen 12 mg/dl Creatinine 1.70 mg/dl Est Creatinine Clear Calc Drug Dose 47.3 ml/min Estimated GFR () 41.8 Estimated GFR (Non- 36.0 BUN/Creatinine Ratio 6.9 Random Glucose 326 mg/dl Calcium Level 7.2 mg/dl Beta-Hydroxybutyric Acid 16.04 mg/dL Test 05/23/17 23:39 05/24/17 00:34 05/24/17 01:35 05/24/17 02:29 Bedside Glucose 270 mg/dl 259 mg/dl 213 mg/dl 221 mg/dl Test 05/24/17 03:36 05/24/17 04:39 05/24/17 05:27 Bedside Glucose 198 mg/dl 180 mg/dl White Blood Count 6.75 K/uL Red Blood Count 2.96 M/uL Hemoglobin 8.1 g/dL Hematocrit 23.9 % Mean Corpuscular Volume 80.7 fL Mean Corpuscular Hemoglobin 27.4 pg Mean Corpuscular Hemoglobin Concent 33.9 g/dl Platelet Count 245 K/uL Mean Platelet Volume 8.4 fL Neutrophils (%) (Auto) 75.4 % Lymphocytes (%) (Auto) 10.7 % Monocytes (%) (Auto) 13.6 % Eosinophils (%) (Auto) 0.0 % Basophils (%) (Auto) 0.0 % Neutrophils # (Auto) 5.09 K/uL Lymphocytes # (Auto) 0.72 K/uL Monocytes # (Auto) 0.92 K/uL Eosinophils # (Auto) 0.00 K/uL Basophils # (Auto) 0.00 K/uL RDW Standard Deviation 56.0 fL RDW Coefficient of Variation 19.2 % Immature Granulocyte % (Auto) 0.3 % Immature Granulocyte # (Auto) 0.02 K/uL Nucleated RBC Absolute Count (auto) 0.03 K/uL Nucleated Red Blood Cells % 0.4 % Red Blood Cell Morphology Unremarkable Venous Blood pH 7.45 Venous Blood Partial Pressure CO2 45 mmHg Venous Blood Partial Pressure O2 39 mmHg Venous Blood HCO3 31 mmol/L Venous Blood Oxygen Saturation 73.3 % Venous Blood Base Excess 6.0 mEq/L Sodium Level 143 mmol/L Potassium Level 3.1 mmol/L Chloride Level 106 mmol/L Carbon Dioxide Level 30 mmol/L Anion Gap 7.0 mmol/L Blood Urea Nitrogen 13 mg/dl Creatinine 1.64 mg/dl Est Creatinine Clear Calc Drug Dose 49.0 ml/min Estimated GFR () 43.6 Estimated GFR (Non- 37.6 BUN/Creatinine Ratio 7.7 Random Glucose 167 mg/dl Calcium Level 7.4 mg/dl Phosphorus Level 1.2 mg/dl Magnesium Level 2.3 mg/dl Assessment & Plan OK on ckd stage 4-creatinine below baseline at 1.8 although that was in setting of fluids and dialysis. off iv fluids. no more dialysis needed. creatinine likely to trend up back into the 2s. hypokalemia-k of 3.1 and giving 40meq oral of kdur and also getting k in the kphos. hypophos-going to eat breakfast this am and also on kphos. metabolic acidosis: pts acidosis corrected. still not clear on the cause. restarted oral sodium bicarb. no metformin. no topomax. would like to do more of a workup as an outpt once labs have stabilized. no more dialysis needed.
[2017-05-24] MEDS ORDERED: POTASSIUM CHLORIDE 10 MEQ TABCR PO ONE (07:30)
[2017-05-24] MEDS ORDERED: NURSING VERBAL MED ORDER ONE (07:45)
[2017-05-24] MEDS ORDERED: CALCIUM GLUCONATE 10% 1,000 MG in SODIUM CHLORIDE 0.9% 50ML 50 ML IV ONE (08:00)
[2017-05-24] MEDS ORDERED: FUROSEMIDE INJ 20 MG in SYRINGE 0 ML IV ONE (08:00)
[2017-05-24] MEDS: TRICOR~ORDER AWAITING ACTION SCH ×2 (08:00→16:00)
[2017-05-24] MEDS: INSULIN ASPART 100 UNITS/ML 3 ML PEN SC SCH ×4 (08:41→20:50)
[2017-05-24] MEDS: AMLODIPINE BESYLATE 5 MG TAB PO SCH (08:45)
[2017-05-24] MEDS: PANTOprazole SOD 40 MG TAB PO SCH (08:45)
[2017-05-24] MEDS: SODIUM BICARBONATE 650 MG TAB PO SCH ×3 (08:45→20:39)
[2017-05-24] MEDS: ATORVASTATIN 10 MG TAB PO SCH (08:45)
[2017-05-24] MEDS: INSULIN GLARGINE SOLOSTAR 100 UNITS/ML 3 ML PEN SC SCH ×2 (08:48→20:48)
--- NOTE | 2017-05-24 10:41 | Critical Care Progress Note ---
Critical Care Progress Note Date of Service May 24, 2017. ICU Day ICU Day Number: [address] Lea Subjective Found patient sitting up in bed, eating her breakfast, pleasantly conversational. Denies any pain or acute concerns. Objective General appearance: Awake, alert, answering questions appropriately, in NAD. Head: NCAT. EOMI. Dry oral mucosa. Neck: Left IJ TLC in place, dressing c/d/i. Respiratory: Clear to auscultation throughout. Cardiovascular: +S1S2 with regular but borderline tachycardia, no murmurs. Abdomen: + bowel sounds, soft, non-tender throughout. Obese habitus. Old laparotomy scar. Upper extremities: Moving easily and spontaneously. Improved distal 1+ edema. Old multiple distal scars (reportedly prior cat scratches), not acutely erythematous. Lower extremities: Moving easily and spontaneously. Improved distal 1+ edema. Right fem dialysis cath in place, dressing c/d/i. Neuro: Alert, moving about easily, no gross neuro deficits. Assessment & Plan 42 yo female with PMH DM1, staph bacteremia, C diff colitis s/p colectomy, presents with dizziness and vomiting, then AMS related to severe metabolic acidosis. 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 Ammonia 116. UDS negative. Has significantly improved, now awake, lucid, eating, denies pain. CAM-ICU negative. Pulmonary: Initially intubated due to work of breathing, extubated 13Feb. Last VBG 7.. CXR yesterday with a little atelectasis. No known underlying or current pulm issues. - Encourage ambulation in hallway. CVS: Initial periods of HTN to SBP 220's, resolved. TnI max up to 0.319, likely demand ischemia. Does have PMH HTN. On amlodipine home dose. - Switch back to home propranolol dosing (ER 120 BID). - Holding home lisinopril. ID: No present evidence of an active infection. 12Feb C diff negative. 11Feb MRSA nasal negative. 11Feb BCx x 2 no growth to date. 12Feb UCx reincubating. Negative procalcitonin. - ID onboard. Endo: Hx DM1. Was on metformin at home, held here. On lantus here. Normal TSH. Elevated random cortisol. - Advised never to restart metformin. Renal/metabolic: Started on bicarb push + drip for pH 6.81. Started on hemodialysis to remove excess acids, then transition to bicarbonate PO tabs TID. Positive for ASA on admit. Further acidosis may be related to d-lactic acidosis (lab level pending). Treated with acetylcysteine (for acetaminophen on tox screen) to help replete glutathione stores. Noted OK here (Cr prior was 1.75, max here 3.82), resolving with current Cr 1.64. - Recommend no further metformin or probiotic use as outpatient. Already off topamax. - Replacing phosphate and potassium. - Nephro onboard. GI: Max lipase 2866, concerns for pancreatitis, but has normalized. 12Feb abdominal u/s notable for hepatic steatosis but no sonographic pancreatic abnormalities. - Progress as tolerated to DM2 diet. Stopped protonix. Heme: Hb trending downwards to 8.1 (admit 14.3). No suspected bleeding source. Type & screened as precaution. - Monitoring. Skin: Chronic scarring s/p cat scratches back in 2017. No peripheral edema. Lines: Left IJ triple lumen. Left upper arm PIV (feliberto). Removed right fem dialysis cath 14Feb. Code status: Full code. DVT prophy: Heparin (was off lovenox due to prior OK). + SCD's. PT/OT consult: Not yet. Disposition: Recommend transfer out of ICU to medicine floor. Resident Physician Supervision Note: Dr. Castellanos was resident physician during care of patient. I separately evaluated patient and did history and exam. I discussed the case with the resident and generally agree with the findings and plan. Patient was in good spirits today. I personally removed her left axillary arterial line in its entirety. There is no hematoma noted after its removal. Dr. Castellanos removed the hemodialysis catheter, there was no hematoma noted after its removal. We are infusing additional electrolyte replacement and then will discontinue her central line as well as Cheng catheter and encourage ambulation today. Discussed her case with the hospitalist service and she is stable for downgrade out of the ICU Documented By: Ed Lea DO Consults & Procedures Consultants: Infectious disease (Dr. Mares). Nephrology (Dr. Everett) Procedures: - Intubated. - Right femoral dialysis catheter. - Left internal jugular triple lumen catheter. Data Medications: Current Inpatient Medications Medications (Trade) Dose Ordered Sig/Yudy Route Start Time Stop Time Status Last Admin Dose Admin Acetaminophen (Tylenol Tab) 650 mg Q4H PRN PO 05/21/17 18:15 06/20/17 18:14 Atorvastatin Calcium (Lipitor Tab) 10 mg DAILY PO 05/22/17 09:00 06/21/17 08:59 05/24/17 08:45 10 MG Duloxetine HCl (Cymbalta Cap) 60 mg QPM PO 05/21/17 21:00 06/20/17 20:59 05/23/17 20:28 60 MG Pregabalin (Lyrica Cap) 50 mg QPM PO 05/21/17 21:00 06/20/17 20:59 05/23/17 20:28 50 MG Miscellaneous Information (Order Awaiting Action) 1 ea QS N/A 05/22/17 08:00 06/21/17 07:59 Miscellaneous Information (Consult Glycemic Management Pharmacy) 1 ea UD N/A 05/21/17 21:37 06/20/17 21:36 Glucose (Glucose 40% Gel) 15-30 GRAMS 15 GRAMS... UD PRN PO 05/21/17 22:15 06/20/17 22:14 Glucose (Glucose Chew Tab) 4-8 Tablets 4 Tabl... UD PRN PO 05/21/17 22:15 06/20/17 22:14 Dextrose (Dextrose 50% 50ML Syringe) 25-50ML OF 50% DW IV FOR... UD PRN IV 05/21/17 22:15 06/20/17 22:14 Glucagon (Glucagon Inj) 1 mg UD PRN SQ 05/21/17 22:15 06/20/17 22:14 Heparin Sodium (Porcine) (Heparin 10 Unit/ ml 5 ml Flush) 5 ml PRN PRN FLUSH 05/22/17 02:30 06/21/17 02:29 Heparin Sodium (Porcine) (Heparin Sq 5000 Unit/0.5ml) 5,000 unit Q8 SC 05/22/17 14:00 06/21/17 13:59 05/24/17 06:44 5,000 UNIT Sodium Bicarbonate (Sodium Bicarbonate Tab) 1,300 mg TID PO 05/23/17 09:00 06/22/17 08:59 05/24/17 08:45 1,300 MG Insulin Aspart (novoLOG ASPART) SLIDING SCALE ACHS SC 05/23/17 16:00 06/22/17 15:59 Future Hold 05/23/17 17:16 14 UNITS Amlodipine Besylate (Norvasc Tab) 10 mg QAM PO 05/23/17 11:00 06/22/17 10:59 05/24/17 08:45 10 MG Propranolol HCl (Inderal Tab) 40 mg Q6 PO 05/23/17 11:00 05/24/17 12:30 05/24/17 06:44 40 MG Insulin Aspart (novoLOG ASPART) SLIDING SCALE TODAY@0000,0400 SC 05/24/17 00:00 Future Hold Insulin Glargine (Lantus Solostar Pen) BID SC 05/24/17 09:00 06/23/17 08:59 05/24/17 08:48 50 UNITS Insulin Human Regular 250 units/ Sodium Chloride 252.5 ml @ 0 mls/hr Q24H IV 05/23/17 20:30 06/22/17 20:29 05/23/17 20:33 3.3 MLS/HR Insulin Aspart (novoLOG ASPART) SLIDING SCALE PCHS SC 05/23/17 21:00 06/22/17 20:59 05/24/17 08:41 11 UNITS Potassium Phosphate 30 mmol/ Sodium Chloride 510 ml @ 88 mls/hr ONE ONCE IV 05/24/17 07:15 05/24/17 13:02 05/24/17 08:42 88 MLS/HR Propranolol HCl (Inderal [place]) 120 mg BID PO 05/24/17 21:00 06/23/17 20:59 Vital Signs: Date Time Temp Pulse Resp B/P (MAP) Pulse Ox O2 Delivery O2 Flow Rate FiO2 05/24/17 10:03 92 17 163/87 (112) 97 Room Air 155/92 (113) 05/24/17 10:00 93 20 168/91 (116) 05/24/17 08:00 Room Air 05/24/17 08:00 36.7 94 16 180/96 (124) 96 Room Air 05/24/17 06:00 100 20 177/89 (118) 96 Room Air 05/24/17 04:00 Room Air 05/24/17 04:00 36.8 101 16 153/77 (102) 94 Room Air 05/24/17 02:00 99 17 138/67 (90) 92 Room Air 05/24/17 00:01 36.8 109 15 162/75 (104) 94 Room Air 05/23/17 23:59 Room Air 05/23/17 22:00 111 16 156/74 (101) 95 Room Air 05/23/17 20:00 36.8 107 18 156/71 (99) 95 Room Air 05/23/17 20:00 Room Air 05/23/17 18:00 37.0 116 18 141/83 (102) 99 Nasal Cannula 2.0 05/23/17 17:30 114 18 148/69 (95) 99 05/23/17 17:15 114 22 153/76 (101) 99 05/23/17 17:01 113 13 155/76 (102) 98 05/23/17 17:00 113 15 153/74 (100) 99 05/23/17 16:45 115 17 150/77 (101) 100 05/23/17 16:30 111 17 147/74 (98) 100 05/23/17 16:15 113 17 144/71 (95) 100 05/23/17 16:00 37.0 112 16 138/76 (96) 99 Nasal Cannula 2.0 05/23/17 16:00 Nasal Cannula 2.0 05/23/17 15:45 111 22 140/77 (98) 100 05/23/17 15:30 111 17 136/74 (94) 99 05/23/17 15:15 113 14 158/86 (110) 100 05/23/17 15:13 36.8 116 121/57 (78) 05/23/17 15:01 109 0 137/71 (93) 100 05/23/17 15:00 109 0 137/69 (91) 99 05/23/17 14:45 110 16 133/68 (89) 100 05/23/17 14:30 109 2 137/68 (91) 100 05/23/17 14:15 109 11 134/65 (88) 100 05/23/17 14:01 109 10 139/68 (91) 100 05/23/17 14:00 110 17 135/65 (88) 100 05/23/17 14:00 36.8 112 18 131/73 (92) 100 Nasal Cannula 2.0 05/23/17 13:45 109 13 130/64 (86) 100 05/23/17 13:30 109 17 147/72 (97) 100 05/23/17 13:15 108 18 147/72 (97) 99 05/23/17 13:01 108 21 134/66 (88) 99 05/23/17 13:00 108 22 138/67 (90) 99 05/23/17 12:46 111 20 135/60 (85) 99 05/23/17 12:45 111 18 137/60 (85) 99 05/23/17 12:31 115 19 133/58 (83) 100 05/23/17 12:30 115 22 126/60 (82) 100 05/23/17 12:16 124 21 127/62 (83) 100 05/23/17 12:15 120 123/59 05/23/17 12:15 123 27 129/63 (85) 100 05/23/17 12:00 122 14 137/65 (89) 100 05/23/17 12:00 Nasal Cannula 2.0 05/23/17 12:00 124 131/58 05/23/17 12:00 36.6 112 18 118/80 (93) 100 Nasal Cannula 2.0 05/23/17 11:46 119 17 137/77 (97) 100 05/23/17 11:45 120 134/78 05/23/17 11:45 119 22 142/80 (100) 100 05/23/17 11:42 116 13 139/68 (91) 05/23/17 11:31 120 17 143/79 (100) 100 05/23/17 11:30 120 14 144/80 (101) 100 05/23/17 11:27 119 123/75 05/23/17 11:16 120 19 141/72 (95) 100 05/23/17 11:15 119 21 138/71 (93) 100 05/23/17 11:15 120 141/73 05/23/17 11:01 120 16 132/64 (86) 100 05/23/17 11:00 119 20 131/65 (87) 100 05/23/17 11:00 119 129/66 05/23/17 10:46 120 19 127/64 (85) 100 05/23/17 10:45 118 18 125/65 (85) 100 05/23/17 10:45 119 125/64 Laboratory Results: Last 24 Hours Test 05/23/17 11:03 05/23/17 12:04 05/23/17 12:34 05/23/17 13:31 Bedside Glucose 139 mg/dl 123 mg/dl 174 mg/dl Sodium Level 136 mmol/L Potassium Level 3.1 mmol/L Chloride Level 97 mmol/L Carbon Dioxide Level 25 mmol/L Anion Gap 14.0 mmol/L Blood Urea Nitrogen 6 mg/dl Creatinine 0.94 mg/dl Est Creatinine Clear Calc Drug Dose 86.4 ml/min Estimated GFR () 85.5 Estimated GFR (Non- 73.8 BUN/Creatinine Ratio 6.5 Random Glucose 146 mg/dl Lactic Acid Level 0.9 mmol/L Calcium Level 7.2 mg/dl Ionized Calcium 0.89 mmol/l Phosphorus Level 1.2 mg/dl Magnesium Level 1.9 mg/dl Total Bilirubin 0.5 mg/dl Aspartate Amino Transf (AST/SGOT) 17 U/L Alanine Aminotransferase (ALT/SGPT) 14 U/L Alkaline Phosphatase 51 U/L Total Creatine Kinase 140 U/L Total Protein 6.0 gm/dl Albumin 2.9 gm/dl Globulin 3.1 gm/dl Albumin/Globulin Ratio 0.9 Lipase 350 U/L Test 05/23/17 15:55 05/23/17 15:57 05/23/17 16:28 05/23/17 20:12 Sodium Level 139 mmol/L Potassium Level 3.2 mmol/L Chloride Level 100 mmol/L Carbon Dioxide Level 27 mmol/L Anion Gap 12.0 mmol/L Blood Urea Nitrogen 7 mg/dl Creatinine 1.30 mg/dl Est Creatinine Clear Calc Drug Dose 61.8 ml/min Estimated GFR () 57.8 Estimated GFR (Non- 49.9 BUN/Creatinine Ratio 5.6 Random Glucose 211 mg/dl Lactic Acid Level 0.9 mmol/L Calcium Level 7.2 mg/dl Phosphorus Level 1.3 mg/dl Magnesium Level 2.0 mg/dl Total Bilirubin 0.4 mg/dl Aspartate Amino Transf (AST/SGOT) 17 U/L Alanine Aminotransferase (ALT/SGPT) 14 U/L Alkaline Phosphatase 46 U/L Total Creatine Kinase 126 U/L Total Protein 5.8 gm/dl Albumin 2.8 gm/dl Globulin 3.0 gm/dl Albumin/Globulin Ratio 0.9 Lipase 376 U/L Bedside Glucose 209 mg/dl 302 mg/dl Ionized Calcium 0.90 mmol/l Test 05/23/17 21:26 05/23/17 21:27 05/23/17 22:25 05/23/17 23:39 Sodium Level 139 mmol/L Potassium Level 3.1 mmol/L Chloride Level 101 mmol/L Carbon Dioxide Level 29 mmol/L Anion Gap 9.0 mmol/L Blood Urea Nitrogen 12 mg/dl Creatinine 1.70 mg/dl Est Creatinine Clear Calc Drug Dose 47.3 ml/min Estimated GFR () 41.8 Estimated GFR (Non- 36.0 BUN/Creatinine Ratio 6.9 Random Glucose 326 mg/dl Calcium Level 7.2 mg/dl Beta-Hydroxybutyric Acid 16.04 mg/dL Bedside Glucose 327 mg/dl 326 mg/dl 270 mg/dl Test 05/24/17 00:34 05/24/17 01:35 05/24/17 02:29 05/24/17 03:36 Bedside Glucose 259 mg/dl 213 mg/dl 221 mg/dl 198 mg/dl Test 05/24/17 04:39 05/24/17 05:27 05/24/17 08:30 Bedside Glucose 180 mg/dl 188 mg/dl White Blood Count 6.75 K/uL Red Blood Count 2.96 M/uL Hemoglobin 8.1 g/dL Hematocrit 23.9 % Mean Corpuscular Volume 80.7 fL Mean Corpuscular Hemoglobin 27.4 pg Mean Corpuscular Hemoglobin Concent 33.9 g/dl Platelet Count 245 K/uL Mean Platelet Volume 8.4 fL Neutrophils (%) (Auto) 75.4 % Lymphocytes (%) (Auto) 10.7 % Monocytes (%) (Auto) 13.6 % Eosinophils (%) (Auto) 0.0 % Basophils (%) (Auto) 0.0 % Neutrophils # (Auto) 5.09 K/uL Lymphocytes # (Auto) 0.72 K/uL Monocytes # (Auto) 0.92 K/uL Eosinophils # (Auto) 0.00 K/uL Basophils # (Auto) 0.00 K/uL RDW Standard Deviation 56.0 fL RDW Coefficient of Variation 19.2 % Immature Granulocyte % (Auto) 0.3 % Immature Granulocyte # (Auto) 0.02 K/uL Nucleated RBC Absolute Count (auto) 0.03 K/uL Nucleated Red Blood Cells % 0.4 % Red Blood Cell Morphology Unremarkable Venous Blood pH 7.45 Venous Blood Partial Pressure CO2 45 mmHg Venous Blood Partial Pressure O2 39 mmHg Venous Blood HCO3 31 mmol/L Venous Blood Oxygen Saturation 73.3 % Venous Blood Base Excess 6.0 mEq/L Sodium Level 143 mmol/L Potassium Level 3.1 mmol/L Chloride Level 106 mmol/L Carbon Dioxide Level 30 mmol/L Anion Gap 7.0 mmol/L Blood Urea Nitrogen 13 mg/dl Creatinine 1.64 mg/dl Est Creatinine Clear Calc Drug Dose 49.0 ml/min Estimated GFR () 43.6 Estimated GFR (Non- 37.6 BUN/Creatinine Ratio 7.7 Random Glucose 167 mg/dl Calcium Level 7.4 mg/dl Phosphorus Level 1.2 mg/dl Magnesium Level 2.3 mg/dl Resident Tracking Resident Involvement: Resident Care Provided Care Provided: Adult Hospital Medicine (ICU care)
--- NOTE | 2017-05-24 13:10 | Progress Note ---
Internal Med Progress Note Date of Service: May 24, 2017. Provider Documentation: SUBJECTIVE: The patient was seen and examined Admitted with presents here due to dizziness, shakiness, weakness with recent H/ O DKA S/P Extubation 05/23/17 Doing very well following extubation Ready to go to Medical floor OBJECTIVE: Vital Signs-as noted below Exam: General-No distress at rest Eyes-Closed ENT-Normal Neck-Supple Lungs-Decreased breath sound bilaterally Heart-Regular Abdomen-Soft Bowel sound present Extremities-Trace edema bilaterally Neuro-AAOx3 Lab data as noted below. ASSESSMENT & PLAN: This is a 42 year old female with a PMH of type 1 DM, HTN, C. diff colitis - was recently hospitalized here in [facility] in April 2017 with severe metabolic acidosis, DKA, septic shock, requiring an ICU admission, temporary trach, dialysis x1 - presents with similar symptoms H/O Colectomy a few years back due to C Diff Colitis Sepsis syndrome without any source of infection ,S/P Extubation "SIRS of noninfectious origin with acute organ dysfunction" evidenced by OK, respiratory failure, and toxic-metabolic encephalopathy in setting of severe metabolic acidosis -patient with elevated white blood cell count with immature cell lines-May have Leukemoid reaction -C Diff Toxin -negative -started on IV Vanco + Zosyn and discontinued later on -panculture-negative so far -Appreciate ID input -has been on Oral Vanco and Flagyl -discontinued -clinically better following extubation -Much better to be transferred to medical floor Severe Metabolic Acidosis -bicarb down to 5,on 05/10, normal bicarb noted -taking sodium bicarb supplements -causes likely multifactorial:metabolic acidosis. perhaps combination of renal failure/chronic diarrhea from colectomy/metformin or other medication -appreciate Psychiatric Registered Nurse input -Appreciate Nephrology input -getting Dialysis -Acidosis is improving -Corrected Pancreatitis Contributing electrolytes abnormalities IV fluid and supportive measures Lipase is improved Resolved Hypertensive Emergency blood pressure >200/100 started on labetalol drip as per bite block maker BP is controlled Has been on Propranolol and Amlodipine Acute Kidney Injury superimposed on CKD stage IV patient with creatinine at 3.8 she is clinically severely dehydrated Appreciate Nephrology input Getting HD -remains stable Type 1 DM would continue basal/bolus appreciate bite block maker and pharmacy glycemic control consultations will defer to them regarding this, as patient has had multiple episodes of DKA in the past DVT ppx Lovenox FULL CODE Vital Signs: Date Time Temp Pulse Resp B/P (MAP) Pulse Ox O2 Delivery O2 Flow Rate FiO2 05/24/17 16:13 36.5 92 18 129/70 (89) 99 Room Air 05/24/17 14:12 37.0 98 18 132/79 (96) 98 05/24/17 13:45 37.0 99 21 98 05/24/17 12:00 37.0 99 21 155/94 (114) 98 Room Air 05/24/17 12:00 Room Air 05/24/17 10:03 92 17 163/87 (112) 97 Room Air 155/92 (113) 05/24/17 10:00 93 20 168/91 (116) 05/24/17 08:00 Room Air 05/24/17 08:00 Room Air 05/24/17 08:00 36.7 94 16 180/96 (124) 96 Room Air 05/24/17 06:00 100 20 177/89 (118) 96 Room Air 05/24/17 04:00 Room Air 05/24/17 04:00 36.8 101 16 153/77 (102) 94 Room Air 05/24/17 02:00 99 17 138/67 (90) 92 Room Air 05/24/17 00:01 36.8 109 15 162/75 (104) 94 Room Air 05/23/17 23:59 Room Air 05/23/17 22:00 111 16 156/74 (101) 95 Room Air 05/23/17 20:00 36.8 107 18 156/71 (99) 95 Room Air 05/23/17 20:00 Room Air 05/23/17 18:00 37.0 116 18 141/83 (102) 99 Nasal Cannula 2.0 05/23/17 17:30 114 18 148/69 (95) 99 05/23/17 17:15 114 22 153/76 (101) 99 05/23/17 17:01 113 13 155/76 (102) 98 05/23/17 17:00 113 15 153/74 (100) 99 05/23/17 16:45 115 17 150/77 (101) 100 05/23/17 16:30 111 17 147/74 (98) 100 Lab Results: Results Past 24 Hours Test 05/23/17 16:28 05/23/17 20:12 05/23/17 21:26 05/23/17 21:27 Range/Units Ionized Calcium 0.90 1.12-1.32 mmol/l Bedside Glucose 302 327 70-90 mg/dl Sodium Level 139 136-145 mmol/L Potassium Level 3.1 3.5-5.1 mmol/L Chloride Level 101 98-107 mmol/L Carbon Dioxide Level 29 21-32 mmol/L Anion Gap 9.0 3-11 mmol/L Blood Urea Nitrogen 12 7-18 mg/dl Creatinine 1.70 0.60-1.20 mg/dl Est Creatinine Clear Calc Drug Dose 47.3 ml/min Estimated GFR () 41.8 Estimated GFR (Non- 36.0 BUN/Creatinine Ratio 6.9 10-20 Random Glucose 326 70-99 mg/dl Calcium Level 7.2 8.5-10.1 mg/dl Beta-Hydroxybutyric Acid 16.04 0.2-2.81 mg/dL Test 05/23/17 22:25 05/23/17 23:39 05/24/17 00:34 05/24/17 01:35 Range/Units Bedside Glucose 326 270 259 213 70-90 mg/dl Test 05/24/17 02:29 05/24/17 03:36 05/24/17 04:39 05/24/17 05:27 Range/Units Bedside Glucose 221 198 180 70-90 mg/dl White Blood Count 6.75 4.8-10.8 K/uL Red Blood Count 2.96 4.2-5.4 M/uL Hemoglobin 8.1 12.0-16.0 g/dL Hematocrit 23.9 37-47 % Mean Corpuscular Volume 80.7 80-100 fL Mean Corpuscular Hemoglobin 27.4 25-34 pg Mean Corpuscular Hemoglobin Concent 33.9 32-36 g/dl Platelet Count 245 130-400 K/uL Mean Platelet Volume 8.4 7.4-10.4 fL Neutrophils (%) (Auto) 75.4 % Lymphocytes (%) (Auto) 10.7 % Monocytes (%) (Auto) 13.6 % Eosinophils (%) (Auto) 0.0 % Basophils (%) (Auto) 0.0 % Neutrophils # (Auto) 5.09 1.4-6.5 K/uL Lymphocytes # (Auto) 0.72 1.2-3.4 K/uL Monocytes # (Auto) 0.92 0.11-0.59 K/uL Eosinophils # (Auto) 0.00 0-0.5 K/uL Basophils # (Auto) 0.00 0-0.2 K/uL RDW Standard Deviation 56.0 36.4-46.3 fL RDW Coefficient of Variation 19.2 11.5-14.5 % Immature Granulocyte % (Auto) 0.3 % Immature Granulocyte # (Auto) 0.02 0.00-0.02 K/uL Nucleated RBC Absolute Count (auto) 0.03 0-0 K/uL Nucleated Red Blood Cells % 0.4 % Red Blood Cell Morphology Unremarkable Venous Blood pH 7.45 7.36-7.41 Venous Blood Partial Pressure CO2 45 38.0-50.0 mmHg Venous Blood Partial Pressure O2 39 mmHg Venous Blood HCO3 31 mmol/L Venous Blood Oxygen Saturation 73.3 % Venous Blood Base Excess 6.0 mEq/L Sodium Level 143 136-145 mmol/L Potassium Level 3.1 3.5-5.1 mmol/L Chloride Level 106 98-107 mmol/L Carbon Dioxide Level 30 21-32 mmol/L Anion Gap 7.0 3-11 mmol/L Blood Urea Nitrogen 13 7-18 mg/dl Creatinine 1.64 0.60-1.20 mg/dl Est Creatinine Clear Calc Drug Dose 49.0 ml/min Estimated GFR () 43.6 Estimated GFR (Non- 37.6 BUN/Creatinine Ratio 7.7 10-20 Random Glucose 167 70-99 mg/dl Calcium Level 7.4 8.5-10.1 mg/dl Phosphorus Level 1.2 2.5-4.9 mg/dl Magnesium Level 2.3 1.8-2.4 mg/dl Test 05/24/17 08:30 05/24/17 09:39 05/24/17 10:34 05/24/17 11:29 Range/Units Bedside Glucose 188 194 158 115 70-90 mg/dl Test 05/24/17 12:31 05/24/17 14:34 05/24/17 15:33 Range/Units Bedside Glucose 180 196 188 70-90 mg/dl
[2017-05-24] MEDS: INSULIN REGULAR 250 UNITS in SODIUM CHLORIDE 0.9% 250ML 250 ML IV SCH ×3 (14:30→23:43)
--- NOTE | 2017-05-24 14:46 | Pharmacy Progress Note ---
Glycemic: Assessment & Plan Date of Service May 24, 2017. Assessment & Plan The patient had been transitioned off the insulin drip yesterday, but was unsuccessful. Due to high drip rates throughout most of the day today, will leave the drip running, but with increased BID lantus doses based on scale.The patient also started a diet, but will be covered with a tight CR/CF. * Basal insulin: Lantus scale per BSGs BID * Correctional Insulin: Novolog Correction per scale [facility] Goal Range: Low 110 mg/dL - High 180 mg/dL Correction Factor: 10 mg/dL/unit * Prandial insulin: Per carb ratio of 1 unit per 3 grams CHO consumed Pharmacy will continue to monitor patient daily and write orders per [facility] inpatient glycemic control protocol. Thanks. * Please note that the plan above was derived based on current level of insulin resistance and hospital stress. These recommendations are appropriate for inpatient admission only. Plan of care upon discharge will need to be reassessed to avoid potential outpatient hypo/hyperglycemia.
[2017-05-24] MEDS: SODIUM CHLORIDE 0.9% 1000ML 1,000 ML IV SCH (19:31)
[2017-05-24] MEDS: DULOXETINE HCL 60 MG CAP PO SCH (20:37)
[2017-05-24] MEDS: PROPRANOLOL HCL 60 MG LA CAP PO SCH (20:38)
[2017-05-24] MEDS: PREGABALIN 50 MG CAP PO SCH (20:44)
[2017-05-24 22:08] LABS: CALCIUM 8.1 mg/dl (8.5-10.1); CREATININE 1.78 mg/dl (0.60-1.20)
[2017-05-24 22:09] LABS: POTASSIUM 3.6 mmol/L (3.5-5.1)
[2017-05-25] MEDS: INSULIN REGULAR 250 UNITS in SODIUM CHLORIDE 0.9% 250ML 250 ML IV SCH ×5 (00:35→05:57)
[2017-05-25] MEDS: SODIUM CHLORIDE 0.9% 1000ML 1,000 ML IV SCH (04:54)
[2017-05-25] MEDS: HEPARIN SOD 5000 UNIT/0.5 ML CARP SC SCH ×3 (05:46→21:43)
--- NOTE | 2017-05-25 06:40 | Nephrology Progress Note ---
Nephrology Progress Note Date of Service: May 25, 2017. Subjective 42 yo female with underlying ckd stage 4 with baseline creatinine of 2.2 who presented with significant acidosis and required intubation and dialysis. pt doing much better now. oob to chair. feels good. no complaints. Objective Date Time Temp Pulse Resp B/P (MAP) Pulse Ox O2 Delivery O2 Flow Rate FiO2 05/25/17 00:00 Room Air 05/24/17 23:15 36.7 89 20 160/106 (124) 98 Room Air 05/24/17 20:35 94 148/89 (108) 05/24/17 19:13 Room Air 05/24/17 16:13 36.5 92 18 129/70 (89) 99 Room Air 05/24/17 14:12 37.0 98 18 132/79 (96) 98 05/24/17 13:45 37.0 99 21 98 05/24/17 12:00 37.0 99 21 155/94 (114) 98 Room Air 05/24/17 12:00 Room Air 05/24/17 10:03 92 17 163/87 (112) 97 Room Air 155/92 (113) 05/24/17 10:00 93 20 168/91 (116) 05/24/17 08:00 Room Air 05/24/17 08:00 Room Air 05/24/17 08:00 36.7 94 16 180/96 (124) 96 Room Air Physical Exam: General-aaox3 Eyes-no scleral icterus ENT-mmm Neck-supple Lungs-cta Heart-regular Abdomen-bs+ s/nt/nd Extremities-no c/c/e Neuro-nonfocal Current Inpatient Medications Medications (Trade) Dose Ordered Sig/Yudy Route Start Time Stop Time Status Last Admin Dose Admin Acetaminophen (Tylenol Tab) 650 mg Q4H PRN PO 05/21/17 18:15 06/20/17 18:14 Atorvastatin Calcium (Lipitor Tab) 10 mg DAILY PO 05/22/17 09:00 06/21/17 08:59 05/24/17 08:45 10 MG Duloxetine HCl (Cymbalta Cap) 60 mg QPM PO 05/21/17 21:00 06/20/17 20:59 05/24/17 20:37 60 MG Pregabalin (Lyrica Cap) 50 mg QPM PO 05/21/17 21:00 06/20/17 20:59 05/24/17 20:44 50 MG Miscellaneous Information (Order Awaiting Action) 1 ea QS N/A 05/22/17 08:00 06/21/17 07:59 Miscellaneous Information (Consult Glycemic Management Pharmacy) 1 ea UD N/A 05/21/17 21:37 06/20/17 21:36 Glucose (Glucose 40% Gel) 15-30 GRAMS 15 GRAMS... UD PRN PO 05/21/17 22:15 06/20/17 22:14 Glucose (Glucose Chew Tab) 4-8 Tablets 4 Tabl... UD PRN PO 05/21/17 22:15 06/20/17 22:14 Dextrose (Dextrose 50% 50ML Syringe) 25-50ML OF 50% DW IV FOR... UD PRN IV 05/21/17 22:15 06/20/17 22:14 05/25/17 01:37 25 ML Glucagon (Glucagon Inj) 1 mg UD PRN SQ 05/21/17 22:15 06/20/17 22:14 Heparin Sodium (Porcine) (Heparin 10 Unit/ ml 5 ml Flush) 5 ml PRN PRN FLUSH 05/22/17 02:30 06/21/17 02:29 Heparin Sodium (Porcine) (Heparin Sq 5000 Unit/0.5ml) 5,000 unit Q8 SC 05/22/17 14:00 06/21/17 13:59 05/24/17 20:47 5,000 UNIT Sodium Bicarbonate (Sodium Bicarbonate Tab) 1,300 mg TID PO 05/23/17 09:00 06/22/17 08:59 05/24/17 20:39 1,300 MG Insulin Aspart (novoLOG ASPART) SLIDING SCALE ACHS SC 05/23/17 16:00 06/22/17 15:59 Future Hold 05/23/17 17:16 14 UNITS Amlodipine Besylate (Norvasc Tab) 10 mg QAM PO 05/23/17 11:00 06/22/17 10:59 05/24/17 08:45 10 MG Insulin Aspart (novoLOG ASPART) SLIDING SCALE TODAY@0000,0400 SC 05/24/17 00:00 Future Hold Insulin Glargine (Lantus Solostar Pen) BID SC 05/24/17 09:00 06/23/17 08:59 05/24/17 20:48 40 UNITS Insulin Human Regular 250 units/ Sodium Chloride 252.5 ml @ 0 mls/hr Q24H IV 05/23/17 20:30 06/22/17 20:29 05/25/17 05:57 1.4 MLS/HR Insulin Aspart (novoLOG ASPART) SLIDING SCALE [facility] SC 05/23/17 21:00 06/22/17 20:59 05/24/17 17:56 13 UNITS Propranolol HCl (Inderal La Cap) 120 mg BID PO 05/24/17 20:00 06/23/17 20:59 05/24/17 20:38 120 MG Sodium Chloride 1,000 ml @ 100 mls/hr Q10H IV 05/24/17 19:15 06/23/17 19:14 05/25/17 04:54 100 MLS/HR Last 24 Hours Test 05/24/17 08:30 05/24/17 09:39 05/24/17 10:34 05/24/17 11:29 Bedside Glucose 188 mg/dl 194 mg/dl 158 mg/dl 115 mg/dl Test 05/24/17 12:31 05/24/17 13:33 05/24/17 14:34 05/24/17 15:33 Bedside Glucose 180 mg/dl 162 mg/dl 196 mg/dl 188 mg/dl Test 05/24/17 16:34 05/24/17 17:38 05/24/17 18:32 05/24/17 19:33 Bedside Glucose 152 mg/dl 122 mg/dl 187 mg/dl 186 mg/dl Test 05/24/17 20:36 05/24/17 21:31 05/24/17 21:35 05/24/17 23:38 Bedside Glucose 178 mg/dl 172 mg/dl 109 mg/dl Sodium Level 141 mmol/L Potassium Level 3.6 mmol/L Chloride Level 105 mmol/L Carbon Dioxide Level 27 mmol/L Anion Gap 9.0 mmol/L Blood Urea Nitrogen 25 mg/dl Creatinine 1.78 mg/dl Est Creatinine Clear Calc Drug Dose 44.6 ml/min Estimated GFR () 39.5 Estimated GFR (Non- 34.1 BUN/Creatinine Ratio 14.0 Random Glucose 152 mg/dl Calcium Level 8.1 mg/dl Test 05/25/17 00:31 05/25/17 01:25 05/25/17 01:54 05/25/17 02:29 Bedside Glucose 91 mg/dl 82 mg/dl 138 mg/dl 113 mg/dl Test 05/25/17 03:32 05/25/17 04:25 05/25/17 04:44 05/25/17 05:36 Bedside Glucose 99 mg/dl 89 mg/dl 89 mg/dl Test 05/25/17 06:24 Bedside Glucose 94 mg/dl Assessment & Plan OK on ckd stage 4-no dialysis needed at this time. morning labs are still pending. pt though eating and drinking well. will stop the iv fluids. electrolytes: continue to replete prn. metabolic acidosis: pts acidosis corrected. still not clear on the cause. may be from worsening renal function although quite severe. may have a rta. on oral sodium bicarb. no metformin. no topomax. will continue outpt workup.
[2017-05-25 07:13] LABS: BASO % 0.3 %; BASO ABS # 0.02 K/uL (0-0.2); EOS % 2.1 %; EOS ABS # 0.14 K/uL (0-0.5); HEMATOCRIT 23.7 % (37-47); HEMOGLOBIN 7.8 g/dL (12.0-16.0); LYMPH % 37.8 %; LYMPH ABS # 2.52 K/uL (1.2-3.4); MEAN CELL VOLUME 81.2 fL (80-100); MEAN CORPUSCULAR HEMOGLOBIN 26.7 pg (25-34); MEAN CORPUSCULAR HGB CONC 32.9 g/dl (32-36); MEAN PLATELET VOLUME 8.5 fL (7.4-10.4); MONO % 9.1 %; MONO ABS # 0.61 K/uL (0.11-0.59); NEUT % 50.7 %; NEUT ABS # 3.38 K/uL (1.4-6.5); PLATELET COUNT 222 K/uL (130-400); RED CELL DISTRIBUTION WIDTH CV 19.5 % (11.5-14.5); RED CELL DISTRIBUTION WIDTH SD 57.6 fL (36.4-46.3); WHITE BLOOD COUNT 6.67 K/uL (4.8-10.8)
[2017-05-25] MEDS: TRICOR~ORDER AWAITING ACTION SCH ×4 (07:18→23:52)
[2017-05-25 07:25] VITALS: BP 159/103; PULSE 81; TEMP 36.8; O2SAT 97
[2017-05-25 07:41] LABS: CALCIUM 8.1 mg/dl (8.5-10.1); CREATININE 1.59 mg/dl (0.60-1.20); POTASSIUM 3.4 mmol/L (3.5-5.1)
[2017-05-25 07:42] LABS: PHOSPHORUS 3.6 mg/dl (2.5-4.9)
[2017-05-25] MEDS: SODIUM BICARBONATE 650 MG TAB PO SCH ×3 (07:50→23:03)
[2017-05-25] MEDS: ATORVASTATIN 10 MG TAB PO SCH (07:50)
[2017-05-25] MEDS: PROPRANOLOL HCL 60 MG LA CAP PO SCH ×2 (07:50→21:51)
[2017-05-25] MEDS: AMLODIPINE BESYLATE 5 MG TAB PO SCH (07:50)
[2017-05-25] MEDS: INSULIN ASPART 100 UNITS/ML 3 ML PEN SC SCH ×4 (08:37→21:41)
[2017-05-25] MEDS ORDERED: INSULIN GLARGINE SOLOSTAR 100 UNITS/ML 3 ML PEN SC SCH (09:00)
--- NOTE | 2017-05-25 13:16 | Pharmacy Progress Note ---
Glycemic Control Progress Note Date of Service May 25, 2017. Scope Glycemic Pharmacist consulted for glycemic control to write orders per [facility] inpatient glycemic control protocol. Objective Accuchecks BSG (last 24hrs): Test 05/24/17 13:33 05/24/17 14:34 05/24/17 15:33 05/24/17 16:34 Bedside Glucose 162 mg/dl (70-90) 196 mg/dl (70-90) 188 mg/dl (70-90) 152 mg/dl (70-90) Test 05/24/17 17:38 05/24/17 18:32 05/24/17 19:33 05/24/17 20:36 Bedside Glucose 122 mg/dl (70-90) 187 mg/dl (70-90) 186 mg/dl (70-90) 178 mg/dl (70-90) Test 05/24/17 21:31 05/24/17 21:35 05/24/17 23:38 05/25/17 00:31 Bedside Glucose 172 mg/dl (70-90) 109 mg/dl (70-90) 91 mg/dl (70-90) Random Glucose 152 mg/dl (70-99) Test 05/25/17 01:25 05/25/17 01:54 05/25/17 02:29 05/25/17 03:32 Bedside Glucose 82 mg/dl (70-90) 138 mg/dl (70-90) 113 mg/dl (70-90) 99 mg/dl (70-90) Test 05/25/17 04:25 05/25/17 05:36 05/25/17 06:24 05/25/17 06:46 Bedside Glucose 89 mg/dl (70-90) 89 mg/dl (70-90) 94 mg/dl (70-90) Random Glucose 90 mg/dl (70-99) Test 05/25/17 07:33 05/25/17 08:29 05/25/17 11:27 Bedside Glucose 83 mg/dl (70-90) 96 mg/dl (70-90) 122 mg/dl (70-90) Outpatient Anti-Diabetic Meds Tresiba 110 units SQ daily + Novolog 20 units TID Assessment & Plan ASSESSMENT: * See progress note from 05/24/17 for more background info, in short: * Pt receiving SQ basal bolus insulin regimen for hyperglycemia secondary to baseline DM (outpatient regimen on hold) and stress/infection. Patient has been extubated and transferred out of the ICU. SQ Lantus has been overlapped with IV insulin infusion to assist in transition off infusion. Insulin infusion was held early this morning due to BSGs at/below goal. * Patient received 128 units of SQ insulin yesterday * 90 units of basal insulin * 38 units of prandial/correctional insulin * BSGs ranging 91 - 188 mg/dl over the past 24hrs * Changes needed to insulin regimen: * Stop IV insulin infusion * AM Fasting BSG = 90 mg/dl. This is slightly below goal range for patient based on inpatient targets and co-morbidities. Current fasting BSG is reflective of 110 units of basal received 05/23 pm-05/24 am. Anticipate patient needing around 40 units BID (~25% decrease). * Post-prandial BSGs are in range. Will change to CF/CR based on home dose of ~ 170 units/day. PLAN FOR INPATIENT GLYCEMIC CONTROL: * Discontinue IV insulin infusion * Basal insulin * Lantus 35-40 units SQ BID * 35 units for BSG less than 110, 40 units for BSG 110 or more * Bolus insulin * NovoLog per scale ACHS or Q6hrs while NPO * Goal Range: Low 120 mg/dL - High 160 mg/dL * Correction Factor: 10 mg/dL/unit * Nutritional / Prandial insulin per carb ratio of 1 unit per 3 grams CHO consumed * Please note that the plan above was derived based on current level of insulin resistance and hospital stress. These recommendations are appropriate for inpatient admission only. Plan of care upon discharge will need to be reassessed to avoid potential outpatient hypo/hyperglycemia. Thank you.
[2017-05-25] MEDS ORDERED: POTASSIUM CHLORIDE 20 MEQ TABCR PO STA (14:28)
[2017-05-25 15:30] VITALS: BP 156/96; PULSE 80; TEMP 36.7; O2SAT 95
--- NOTE | 2017-05-25 17:28 | Progress Note ---
Internal Med Progress Note Date of Service: May 25, 2017. Provider Documentation: SUBJECTIVE: sitting on the chair comfortably denies any pain ambulating ok eating fine no sob no fevers no nausea OBJECTIVE: Vital Signs-as noted below Exam: General-alert and oriented. Not in distress ENT-normal hearing Neck-no neck masses Lungs-cta b/l no wheezing or crackles Heart-s1 and s2 heard regular rate and rhythm no murmurs Abdomen-soft bowel sounds present non tender no distension Extremities-no edema no erythema Neuro-alert and awake moves extremities Lab data as noted below. ASSESSMENT & PLAN: This is a 42 year old female with a PMH of type 1 DM, HTN, C. diff colitis - was recently hospitalized here in [facility] in April 2017 with severe metabolic acidosis, DKA, septic shock, requiring an ICU admission, temporary trach, dialysis x1 - presents with similar symptoms H/O Colectomy a few years back due to C Diff Colitis Sepsis syndrome without any source of infection ,S/P Extubation "SIRS of noninfectious origin with acute organ dysfunction" evidenced by OK, respiratory failure, and toxic-metabolic encephalopathy in setting of severe metabolic acidosis patient with elevated white blood cell count with immature cell lines-May have Leukemoid reaction" C Diff Toxin -negative panculture-negative so far intially was on iv Zosyn and vanco but later discontinued was also on flagyl and po vancomycin which was later discontinued ID on board and appreciate inputs currently stable Severe Metabolic Acidosis bicarb down to 5,on 05/10, normal bicarb noted On sodium bicarb supplements which patient was taking Etiology of metabolic acidosis?. could be combination of renal failure/chronic diarrhea from colectomy/metformin or other medication appreciate critical care and nephrology inputs currently resolved Pancreatitis Contributing electrolytes abnormalities Was on IV fluid and supportive measures Resolved Hypertensive Emergency blood pressure >200/100 Was started on labetalol drip as per mother helper BP is controlled now currently on Propranolol and Amlodipine will monitor Acute Kidney Injury superimposed on CKD stage IV presented with creatinine at 3.8 Required dialysis secondary to acidosis Currently off of dialyiss cr 1.5 today Anemia of chronic disease hb 7.8 today will f/u labs Type 1 DM on Lantus and iss will monitor DVT ppx hep sub q declining scds ambulate DISPOSITION to be determined Vital Signs: Date Time Temp Pulse Resp B/P (MAP) Pulse Ox O2 Delivery O2 Flow Rate FiO2 05/25/17 15:30 36.7 80 16 156/96 (116) 95 05/25/17 08:00 Room Air 05/25/17 07:25 36.8 81 20 159/103 (121) 97 05/25/17 00:00 Room Air 05/24/17 23:15 36.7 89 20 160/106 (124) 98 Room Air 05/24/17 20:35 94 148/89 (108) 05/24/17 19:13 Room Air Lab Results: Results Past 24 Hours Test 05/24/17 17:38 05/24/17 18:32 05/24/17 19:33 05/24/17 20:36 Range/Units Bedside Glucose 122 187 186 178 70-90 mg/dl Test 05/24/17 21:31 05/24/17 21:35 05/24/17 23:38 05/25/17 00:31 Range/Units Bedside Glucose 172 109 91 70-90 mg/dl Sodium Level 141 136-145 mmol/L Potassium Level 3.6 3.5-5.1 mmol/L Chloride Level 105 98-107 mmol/L Carbon Dioxide Level 27 21-32 mmol/L Anion Gap 9.0 3-11 mmol/L Blood Urea Nitrogen 25 7-18 mg/dl Creatinine 1.78 0.60-1.20 mg/dl Est Creatinine Clear Calc Drug Dose 44.6 ml/min Estimated GFR () 39.5 Estimated GFR (Non- 34.1 BUN/Creatinine Ratio 14.0 10-20 Random Glucose 152 70-99 mg/dl Calcium Level 8.1 8.5-10.1 mg/dl Test 05/25/17 01:25 05/25/17 01:54 05/25/17 02:29 05/25/17 03:32 Range/Units Bedside Glucose 82 138 113 99 70-90 mg/dl Test 05/25/17 04:25 05/25/17 05:36 05/25/17 06:24 05/25/17 06:46 Range/Units Bedside Glucose 89 89 94 70-90 mg/dl White Blood Count 6.67 4.8-10.8 K/uL Red Blood Count 2.92 4.2-5.4 M/uL Hemoglobin 7.8 12.0-16.0 g/dL Hematocrit 23.7 37-47 % Mean Corpuscular Volume 81.2 80-100 fL Mean Corpuscular Hemoglobin 26.7 25-34 pg Mean Corpuscular Hemoglobin Concent 32.9 32-36 g/dl Platelet Count 222 130-400 K/uL Mean Platelet Volume 8.5 7.4-10.4 fL Neutrophils (%) (Auto) 50.7 % Lymphocytes (%) (Auto) 37.8 % Monocytes (%) (Auto) 9.1 % Eosinophils (%) (Auto) 2.1 % Basophils (%) (Auto) 0.3 % Neutrophils # (Auto) 3.38 1.4-6.5 K/uL Lymphocytes # (Auto) 2.52 1.2-3.4 K/uL Monocytes # (Auto) 0.61 0.11-0.59 K/uL Eosinophils # (Auto) 0.14 0-0.5 K/uL Basophils # (Auto) 0.02 0-0.2 K/uL RDW Standard Deviation 57.6 36.4-46.3 fL RDW Coefficient of Variation 19.5 11.5-14.5 % Immature Granulocyte % (Auto) 0.0 % Immature Granulocyte # (Auto) 0.00 0.00-0.02 K/uL Large Platelets 2+ Polychromasia 1+ Hypochromasia PRESENT Sodium Level 140 136-145 mmol/L Potassium Level 3.4 3.5-5.1 mmol/L Chloride Level 106 98-107 mmol/L Carbon Dioxide Level 25 21-32 mmol/L Anion Gap 9.0 3-11 mmol/L Blood Urea Nitrogen 24 7-18 mg/dl Creatinine 1.59 0.60-1.20 mg/dl Est Creatinine Clear Calc Drug Dose 50.0 ml/min Estimated GFR () 45.3 Estimated GFR (Non- 39.1 BUN/Creatinine Ratio 15.4 10-20 Random Glucose 90 70-99 mg/dl Calcium Level 8.1 8.5-10.1 mg/dl Phosphorus Level 3.6 2.5-4.9 mg/dl Magnesium Level 2.1 1.8-2.4 mg/dl Phenytoin (Dilantin) Level 0.7 10-20 mcg/mL Test 05/25/17 07:33 05/25/17 08:29 05/25/17 11:27 05/25/17 14:21 Range/Units Bedside Glucose 83 96 122 70-90 mg/dl Lab Scanned Report Lab Referral [id number] Test 05/25/17 16:27 Range/Units Bedside Glucose 96 70-90 mg/dl
[2017-05-25] MEDS: PREGABALIN 50 MG CAP PO SCH (21:37)
[2017-05-25] MEDS: DULOXETINE HCL 60 MG CAP PO SCH (21:38)
[2017-05-25] MEDS: INSULIN GLARGINE SOLOSTAR 100 UNITS/ML 3 ML PEN SC SCH (21:42)
[2017-05-25 21:44] VITALS: BP 163/99; PULSE 80
[2017-05-25 22:20] LABS: CALCIUM 8.8 mg/dl (8.5-10.1); CREATININE 1.93 mg/dl (0.60-1.20); POTASSIUM 3.8 mmol/L (3.5-5.1)
[2017-05-25 22:44] VITALS: BP 163/99; PULSE 80; TEMP 36.8; O2SAT 98
[2017-05-26] MEDS: HEPARIN SOD 5000 UNIT/0.5 ML CARP SC SCH ×2 (06:00→13:28)
--- NOTE | 2017-05-26 06:40 | Nephrology Progress Note ---
Nephrology Progress Note Date of Service: May 26, 2017. Subjective 42 yo female with underlying ckd stage 4 with baseline creatinine of 2.2 who presented with significant acidosis and required intubation and dialysis. pt doing much better now. was walking around hallways yesterday. wants to go home today. no complaints at this time. Objective Date Time Temp Pulse Resp B/P (MAP) Pulse Ox O2 Delivery O2 Flow Rate FiO2 05/26/17 00:00 Room Air 05/25/17 22:44 36.8 80 18 163/99 (120) 98 Room Air 05/25/17 21:44 80 163/99 (120) 05/25/17 18:42 Room Air 05/25/17 15:30 36.7 80 16 156/96 (116) 95 05/25/17 08:00 Room Air 05/25/17 07:25 36.8 81 20 159/103 (121) 97 Physical Exam: General-aaox3 Eyes-no scleral icterus ENT-mmm Neck-supple Lungs-clear Heart-rrr Abdomen-bs+ s/nt/nd Extremities-no c/c/e Neuro-nonfocal Current Inpatient Medications Medications (Trade) Dose Ordered Sig/Yudy Route Start Time Stop Time Status Last Admin Dose Admin Acetaminophen (Tylenol Tab) 650 mg Q4H PRN PO 05/21/17 18:15 06/20/17 18:14 Atorvastatin Calcium (Lipitor Tab) 10 mg DAILY PO 05/22/17 09:00 06/21/17 08:59 05/25/17 07:50 10 MG Duloxetine HCl (Cymbalta Cap) 60 mg QPM PO 05/21/17 21:00 06/20/17 20:59 05/25/17 21:38 60 MG Pregabalin (Lyrica Cap) 50 mg QPM PO 05/21/17 21:00 06/20/17 20:59 05/25/17 21:37 50 MG Miscellaneous Information (Order Awaiting Action) 1 ea QS N/A 05/22/17 08:00 06/21/17 07:59 Miscellaneous Information (Consult Glycemic Management Pharmacy) 1 ea UD N/A 05/21/17 21:37 06/20/17 21:36 Glucose (Glucose 40% Gel) 15-30 GRAMS 15 GRAMS... UD PRN PO 05/21/17 22:15 06/20/17 22:14 Glucose (Glucose Chew Tab) 4-8 Tablets 4 Tabl... UD PRN PO 05/21/17 22:15 06/20/17 22:14 Dextrose (Dextrose 50% 50ML Syringe) 25-50ML OF 50% DW IV FOR... UD PRN IV 05/21/17 22:15 06/20/17 22:14 05/25/17 01:37 25 ML Glucagon (Glucagon Inj) 1 mg UD PRN SQ 05/21/17 22:15 06/20/17 22:14 Heparin Sodium (Porcine) (Heparin 10 Unit/ ml 5 ml Flush) 5 ml PRN PRN FLUSH 05/22/17 02:30 06/21/17 02:29 Heparin Sodium (Porcine) (Heparin Sq 5000 Unit/0.5ml) 5,000 unit Q8 SC 05/22/17 14:00 06/21/17 13:59 05/25/17 21:43 5,000 UNIT Sodium Bicarbonate (Sodium Bicarbonate Tab) 1,300 mg TID PO 05/23/17 09:00 06/22/17 08:59 05/25/17 23:03 1,300 MG Insulin Aspart (novoLOG ASPART) SLIDING SCALE ACHS SC 05/23/17 16:00 06/22/17 15:59 Future hold 05/25/17 21:41 7 UNITS Amlodipine Besylate (Norvasc Tab) 10 mg QAM PO 05/23/17 11:00 06/22/17 10:59 05/25/17 07:50 10 MG Insulin Glargine (Lantus Solostar Pen) BID SC 05/24/17 09:00 06/23/17 08:59 Future hold 05/25/17 21:42 40 UNITS Propranolol HCl (Inderal La Cap) 120 mg BID PO 05/24/17 20:00 06/23/17 20:59 05/25/17 21:51 120 MG Last 24 Hours Test 05/25/17 06:46 05/25/17 07:33 05/25/17 08:29 05/25/17 11:27 White Blood Count 6.67 K/uL Red Blood Count 2.92 M/uL Hemoglobin 7.8 g/dL Hematocrit 23.7 % Mean Corpuscular Volume 81.2 fL Mean Corpuscular Hemoglobin 26.7 pg Mean Corpuscular Hemoglobin Concent 32.9 g/dl Platelet Count 222 K/uL Mean Platelet Volume 8.5 fL Neutrophils (%) (Auto) 50.7 % Lymphocytes (%) (Auto) 37.8 % Monocytes (%) (Auto) 9.1 % Eosinophils (%) (Auto) 2.1 % Basophils (%) (Auto) 0.3 % Neutrophils # (Auto) 3.38 K/uL Lymphocytes # (Auto) 2.52 K/uL Monocytes # (Auto) 0.61 K/uL Eosinophils # (Auto) 0.14 K/uL Basophils # (Auto) 0.02 K/uL RDW Standard Deviation 57.6 fL RDW Coefficient of Variation 19.5 % Immature Granulocyte % (Auto) 0.0 % Immature Granulocyte # (Auto) 0.00 K/uL Large Platelets 2+ Polychromasia 1+ Hypochromasia PRESENT Sodium Level 140 mmol/L Potassium Level 3.4 mmol/L Chloride Level 106 mmol/L Carbon Dioxide Level 25 mmol/L Anion Gap 9.0 mmol/L Blood Urea Nitrogen 24 mg/dl Creatinine 1.59 mg/dl Est Creatinine Clear Calc Drug Dose 50.0 ml/min Estimated GFR () 45.3 Estimated GFR (Non- 39.1 BUN/Creatinine Ratio 15.4 Random Glucose 90 mg/dl Calcium Level 8.1 mg/dl Phosphorus Level 3.6 mg/dl Magnesium Level 2.1 mg/dl Phenytoin (Dilantin) Level 0.7 mcg/mL Bedside Glucose 83 mg/dl 96 mg/dl 122 mg/dl Test 05/25/17 14:21 05/25/17 16:27 05/25/17 20:04 05/25/17 21:24 Lab Scanned Report Lab Referral [id number] Bedside Glucose 96 mg/dl 151 mg/dl Sodium Level 141 mmol/L Potassium Level 3.8 mmol/L Chloride Level 107 mmol/L Carbon Dioxide Level 24 mmol/L Anion Gap 10.0 mmol/L Blood Urea Nitrogen 31 mg/dl Creatinine 1.93 mg/dl Est Creatinine Clear Calc Drug Dose 41.2 ml/min Estimated GFR () 35.8 Estimated GFR (Non- 30.9 BUN/Creatinine Ratio 16.1 Random Glucose 131 mg/dl Calcium Level 8.8 mg/dl Test 05/26/17 04:44 Assessment & Plan OK on ckd stage 4-no dialysis needed at this time. baseline creatinine in the low 2s. creatinine 1.93 at last check. metabolic acidosis: pts acidosis corrected. still not clear on the cause. may be from worsening renal function although quite severe. may have a rta. on oral sodium bicarb. no metformin. no topomax. will continue outpt workup. HTN: bp is elevated and restarted pts lisinopril 10mg a day this morning. anemia:hg below 8 and checking iron saturation. pt overall doing very well. recheck labs on monday as outpt if able to go home over the weekend and would check bmp weekly for next four weeks.
[2017-05-26 07:12] LABS: BASO % 0.4 %; BASO ABS # 0.03 K/uL (0-0.2); EOS % 3.5 %; EOS ABS # 0.25 K/uL (0-0.5); HEMATOCRIT 25.1 % (37-47); HEMOGLOBIN 8.2 g/dL (12.0-16.0); IG# 0.02 K/uL (0.00-0.02); LYMPH % 36.2 %; LYMPH ABS # 2.59 K/uL (1.2-3.4); MEAN CELL VOLUME 82.6 fL (80-100); MEAN CORPUSCULAR HGB CONC 32.7 g/dl (32-36); MEAN PLATELET VOLUME 8.7 fL (7.4-10.4); MONO % 8.3 %; MONO ABS # 0.59 K/uL (0.11-0.59); NEUT % 51.3 %; NEUT ABS # 3.67 K/uL (1.4-6.5); PLATELET COUNT 242 K/uL (130-400); RED CELL DISTRIBUTION WIDTH CV 19.5 % (11.5-14.5); RED CELL DISTRIBUTION WIDTH SD 58.2 fL (36.4-46.3); WHITE BLOOD COUNT 7.15 K/uL (4.8-10.8)
[2017-05-26 07:49] LABS: CREATININE 1.57 mg/dl (0.60-1.20); POTASSIUM 3.7 mmol/L (3.5-5.1)
[2017-05-26] MEDS: PROPRANOLOL HCL 60 MG LA CAP PO SCH (07:56)
[2017-05-26] MEDS: AMLODIPINE BESYLATE 5 MG TAB PO SCH (07:57)
[2017-05-26] MEDS: ATORVASTATIN 10 MG TAB PO SCH (07:57)
[2017-05-26] MEDS: SODIUM BICARBONATE 650 MG TAB PO SCH ×2 (07:58→13:29)
[2017-05-26] MEDS ORDERED: LISINOPRIL 10 MG TAB PO SCH (08:00)
[2017-05-26] MEDS: TRICOR~ORDER AWAITING ACTION SCH (08:00)
[2017-05-26 08:25] VITALS: BP_SYST 165; BP_SYST 168; BP_DIAS 100; BP_DIAS 103; PULSE 68; TEMP 36.8; O2SAT 96
[2017-05-26] MEDS: INSULIN ASPART 100 UNITS/ML 3 ML PEN SC SCH ×2 (09:31→13:28)
[2017-05-26] MEDS: INSULIN GLARGINE SOLOSTAR 100 UNITS/ML 3 ML PEN SC SCH (09:32)
--- NOTE | 2017-05-26 15:57 | Discharge Instructions ---
Discharge Instructions Date of Service May 26, 2017. Admission Reason for Admission: Acidosis; Sepsis Discharge Discharge Diagnosis / Problem: sepsis, arf, acidosis Discharge Goals Goal(s): Decrease discomfort, Improve function Activity Recommendations Activity Limitations: resume your previous activity . Instructions / Follow-Up Instructions / Follow-Up FOLLOWUP WITH FAMILY DOCTOR IN ONE WEEK. FOLLOWUP WITH FAMILY DOCTOR FOR DIABETES AND HYPERTENSION FOLLOWUP WITH NEPHROLOGY ON June AT 10:40AM. LAB: BMP NEXT MONDAY AND THEN WEEKLY X 4 WEEKS AND FOLLOW RESULTS WITH FAMILY DOCTOR AND NEPHROLOGY. LAB: CBC WEEKLY IN 4 WEEKS AND FOLLOW RESULTS WITH FAMILY DOCTOR AND NEPHROLOGY. Current Hospital Diet Patient's current hospital diet: Diabetes Type 2 Diet Discharge Diet Recommended Diet: Diabetes Type 2 Diet Pending Studies Studies pending at discharge: no Laboratory Results Hemoglobin A1c Test 04/17/17 13:50 Range/Units Estimated Average Glucose 349 mg/dl Hemoglobin A1c 13.8 H 4.5-5.6 % Lipid Panel Test 04/19/17 20:00 04/24/17 07:24 Range/Units Triglycerides Level 1456 H 596 H 0-150 mg/dl Cholesterol Level 293 H 0-200 mg/dl HDL Cholesterol 20 mg/dl Cholesterol/HDL Ratio 14.7 LDL Cholesterol, Calculated mg/dl Medical Emergencies . Who to Call and When: Medical Emergencies: If at any time you feel your situation is an emergency, please call 911 immediately. . Non-Emergent Contact Non-Emergency issues call your: Primary Care Provider . . "Provider Documentation" section prepared by Mayur Hubbard. . VTE Core Measure Inpt VTE Proph given/why not?: Unfractionated heparin SQ (REFUSED), SCD's
[2017-05-26 16:02] VITALS: BP 153/95; PULSE 70; TEMP 36.8; O2SAT 98
[2017-05-26 16:34] VITALS: BP 153/95; PULSE 70; TEMP 36.8; O2SAT 98
--- NOTE | 2017-05-26 19:09 | Progress Note ---
Internal Med Progress Note Date of Service: May 26, 2017. Provider Documentation: SUBJECTIVE: sitting on the chair comfortably no sob or chest pain eating fine ambulating fine wants to be discharged OBJECTIVE: Vital Signs-as noted below Exam: General-alert and oriented. Not in distress ENT-normal hearing Neck-no neck masses Lungs-cta b/l no wheezing or crackles Heart-s1 and s2 heard regular rate and rhythm no murmurs Abdomen-soft bowel sounds present non tender no distension Extremities-no edema no erythema Neuro-alert and awake moves extremities Lab data as noted below. ASSESSMENT & PLAN: This is a 42 year old female with a PMH of type 1 DM, HTN, C. diff colitis - was recently hospitalized here in [facility] in April 2017 with severe metabolic acidosis, DKA, septic shock, requiring an ICU admission, temporary trach, dialysis x1 - presents with similar symptoms H/O Colectomy a few years back due to C Diff Colitis Sepsis syndrome without any source of infection ,S/P Extubation "SIRS of noninfectious origin with acute organ dysfunction" evidenced by OK, respiratory failure, and toxic-metabolic encephalopathy in setting of severe metabolic acidosis patient with elevated white blood cell count with immature cell lines-May have Leukemoid reaction" C Diff Toxin -negative panculture-negative so far intially was on iv Zosyn and vanco but later discontinued was also on flagyl and po vancomycin which was later discontinued ID on board and appreciate inputs currently stable discharged home Severe Metabolic Acidosis bicarb down to 5,on 05/10, normal bicarb noted On sodium bicarb supplements which patient was taking Etiology of metabolic acidosis?. could be combination of renal failure/chronic diarrhea from colectomy/metformin or other medication appreciate critical care and nephrology inputs currently resolved f/u labs with pcp and nephrology Pancreatitis Contributing electrolytes abnormalities Was on IV fluid and supportive measures Resolved Hypertensive Emergency blood pressure >200/100 Was started on labetalol drip as per shoeblack BP is controlled now currently on Propranolol and Amlodipine stable. f/u with pcp Acute Kidney Injury superimposed on CKD stage IV presented with creatinine at 3.8 Required dialysis secondary to acidosis Currently off of dialyiss cr 1.5 today f/u bmp on Monday and then weekly x 4 weeks and f/u results with pcp and nephrology Anemia of chronic disease hb 8.2today f/u labs with pcp Type 1 DM on Lantus and iss d/c on home meds discharged home Vital Signs: Date Time Temp Pulse Resp B/P (MAP) Pulse Ox O2 Delivery O2 Flow Rate FiO2 05/26/17 16:34 36.8 70 18 98 Room Air 05/26/17 16:02 36.8 70 18 153/95 (114) 98 Room Air 05/26/17 08:25 36.8 68 18 165/103 (123) 96 Room Air 168/100 (122) 05/26/17 08:02 Room Air 05/26/17 00:00 Room Air 05/25/17 22:44 36.8 80 18 163/99 (120) 98 Room Air 05/25/17 21:44 80 163/99 (120) Lab Results: Results Past 24 Hours Test 05/25/17 20:04 05/25/17 21:24 05/26/17 06:54 05/26/17 08:03 Range/Units Bedside Glucose 151 96 70-90 mg/dl Sodium Level 141 139 136-145 mmol/L Potassium Level 3.8 3.7 3.5-5.1 mmol/L Chloride Level 107 107 98-107 mmol/L Carbon Dioxide Level 24 27 21-32 mmol/L Anion Gap 10.0 5.0 3-11 mmol/L Blood Urea Nitrogen 31 33 7-18 mg/dl Creatinine 1.93 1.57 0.60-1.20 mg/dl Est Creatinine Clear Calc Drug Dose 41.2 50.6 ml/min Estimated GFR () 35.8 46.0 Estimated GFR (Non- 30.9 39.7 BUN/Creatinine Ratio 16.1 21.2 10-20 Random Glucose 131 86 70-99 mg/dl Calcium Level 8.8 9.0 8.5-10.1 mg/dl White Blood Count 7.15 4.8-10.8 K/uL Red Blood Count 3.04 4.2-5.4 M/uL Hemoglobin 8.2 12.0-16.0 g/dL Hematocrit 25.1 37-47 % Mean Corpuscular Volume 82.6 80-100 fL Mean Corpuscular Hemoglobin 27.0 25-34 pg Mean Corpuscular Hemoglobin Concent 32.7 32-36 g/dl Platelet Count 242 130-400 K/uL Mean Platelet Volume 8.7 7.4-10.4 fL Neutrophils (%) (Auto) 51.3 % Lymphocytes (%) (Auto) 36.2 % Monocytes (%) (Auto) 8.3 % Eosinophils (%) (Auto) 3.5 % Basophils (%) (Auto) 0.4 % Neutrophils # (Auto) 3.67 1.4-6.5 K/uL Lymphocytes # (Auto) 2.59 1.2-3.4 K/uL Monocytes # (Auto) 0.59 0.11-0.59 K/uL Eosinophils # (Auto) 0.25 0-0.5 K/uL Basophils # (Auto) 0.03 0-0.2 K/uL RDW Standard Deviation 58.2 36.4-46.3 fL RDW Coefficient of Variation 19.5 11.5-14.5 % Immature Granulocyte % (Auto) 0.3 % Immature Granulocyte # (Auto) 0.02 0.00-0.02 K/uL Anisocytosis PRESENT Iron Level 45 35-150 mcg/dl Total Iron Binding Capacity 400 250-450 mcg/dl Transferrin 315 200-360 mg/dl Transferrin % Saturation 10 15-50 % Test 05/26/17 11:50 05/26/17 16:47 Range/Units Bedside Glucose 97 75 70-90 mg/dl
--- NOTE | 2017-05-26 19:12 | Discharge Summary ---
Discharge Summary Date of Service May 26, 2017. Discharge Summary Admission Date: May 21, 2017 at 18:12 Discharge Date: May 26, 2017 Discharge Disposition: Home Principal Diagnosis: sepsis syndrome without any source of infection metabolic acidosis arf anemia hypertensive emergency Secondary Diagnoses/Problems: (1) Acute kidney injury Status: Resolved (2) Clostridium difficile colitis Status: Resolved (3) Colostomy Status: Resolved (4) DKA (diabetic ketoacidoses) Status: Resolved (5) Lumbar Disc Displacement Status: Chronic (6) Pneumonia Status: Chronic (7) Sepsis Procedures: cxr: Negative chest. ABDOMINAL US: 1. Hepatic steatosis. 2. No sonographic abnormality of the pancreas. This does not exclude the diagnosis of pancreatitis. 3. Mildly enlarged and echogenic kidneys could suggest chronic medical renal disease. ECHO: The left ventricle is hyperdynamic. * Ejection Fraction = >70 %. * No significant valvular pathology. * There is no pericardial effusion Consultations: CRITICAL CARE NEPHROLOGY ID Medication Reconciliation Continued Medications: Albuterol Hfa (Ventolin Hfa) 200 Puffs/05164 Mcg Aers 2 PUFFS INH Q4H PRN for SOB/Wheezing, #1 INHALER Amlodipine (Norvasc) 10 Mg Tab 10 MG PO DAILY, TAB Atorvastatin (Lipitor) 10 Mg Tab 10 MG PO DAILY, TAB Duloxetine Hcl (Cymbalta) 60 Mg Cap 60 MG PO QPM, CAP Esomeprazole Magnesium (Nexium) 40 Mg Capcr 40 MG PO QAM, CAP Fenofibrate (Tricor) 160 Mg Tab 160 MG PO DAILY, TAB Insulin Aspart (Novolog Flexpen) 100 Units/Ml Inj 20 UNITS SC TIDM Insulin Degludec (Tresiba Flextouch) 100 Unit/Ml Inj 110 UNITS PO DAILY Lisinopril (Lisinopril) 10 Mg Tab 10 MG PO DAILY for 30 Days, #30 TABS Pregabalin (Lyrica) 50 Mg Cap 50 MG PO QPM, #90 Propranolol Hcl (Propranolol Hcl Er) 120 Mg Cap 120 MG PO BID Sodium Bicarbonate (Sodium Bicarbonate) 650 Mg Tab 1300 MG PO TID Discontinued Medications: Vancomycin Hcl (Vancomycin) 250 Mg Cap 250 MG PO TID Admission Information HPI (per Admitting provider): This is a 42 year old female with a PMH of type 1 DM, HTN, C. diff colitis - was recently hospitalized here in [facility] in April 2017 with severe metabolic acidosis, DKA, septic shock, requiring an ICU admission, temporary trach, dialysis x1. She was discharged after being treated and was told to stay compliant with her diabetic medications. She tells me she has been compliant, but presents here due to dizziness, shakiness, weakness. She presented here and noted to have significant white count elevation, she is dehydrated with acute kidney injury and noted to have a drop in bicarb with an elevated anion gap. Patient was seen by nephrology at the end of April and had normal labwork then ; including her bicarb; she has been taking bicarb supplementation. Currently, she is talking, and tells me she is not short of breath, but seems to be using accessory muscles to breath. Denies chest pain. Physical Exam (per Admitting): General Appearance: + mild distress (secondary to breathing) Head: normocephalic, atraumatic Eyes: normal inspection ENT: hearing grossly normal Neck: supple Respiratory/Chest: + respiratory distress, + decreased breath sounds, + accessory muscle use Cardiovascular: no edema, no murmur, + tachycardia Abdomen/GI: normal bowel sounds, non tender, soft Extremities/Musculoskelatal: normal inspection, no calf tenderness, normal capillary refill, no pedal edema, normal range of motion Neurologic/Psych: no motor/sensory deficits, alert, normal mood/affect, oriented x 3 Skin: normal color Lymphatic: no adenopathy Hospital Course This is a 42 year old female with a PMH of type 1 DM, HTN, C. diff colitis - was recently hospitalized here in [facility] in April 2017 with severe metabolic acidosis, DKA, septic shock, requiring an ICU admission, temporary trach, dialysis x1 - presents with similar symptoms H/O Colectomy a few years back due to C Diff Colitis Sepsis syndrome without any source of infection ,S/P Extubation "SIRS of noninfectious origin with acute organ dysfunction" evidenced by OK, respiratory failure, and toxic-metabolic encephalopathy in setting of severe metabolic acidosis patient with elevated white blood cell count with immature cell lines-May have Leukemoid reaction" C Diff Toxin -negative panculture-negative so far intially was on iv Zosyn and vanco but later discontinued was also on flagyl and po vancomycin which was later discontinued ID on board and appreciate inputs currently stable discharged home Severe Metabolic Acidosis bicarb down to 5,on 1/31, normal bicarb noted On sodium bicarb supplements which patient was taking Etiology of metabolic acidosis?. could be combination of renal failure/chronic diarrhea from colectomy/metformin or other medication appreciate critical care and nephrology inputs currently resolved f/u labs with pcp and nephrology Pancreatitis Contributing electrolytes abnormalities Was on IV fluid and supportive measures Resolved Hypertensive Emergency blood pressure >200/100 Was started on labetalol drip as per fitter helper BP is controlled now currently on Propranolol and Amlodipine stable. f/u with pcp Acute Kidney Injury superimposed on CKD stage IV presented with creatinine at 3.8 Required dialysis secondary to acidosis Currently off of dialyiss cr 1.5 today f/u bmp on Monday and then weekly x 4 weeks and f/u results with pcp and nephrology Anemia of chronic disease hb 8.2today f/u labs with pcp Type 1 DM on Lantus and iss d/c on home meds discharged home Total time spent on discharge = 35MINUTES This includes examination of the patient, discharge planning, medication reconciliation, and communication with other providers. Discharge Instructions Discharge Instructions Date of Service May 26, 2017. Admission Reason for Admission: Acidosis; Sepsis Discharge Discharge Diagnosis / Problem: sepsis, arf, acidosis Discharge Goals Goal(s): Decrease discomfort, Improve function Activity Recommendations Activity Limitations: resume your previous activity . Instructions / Follow-Up Instructions / Follow-Up FOLLOWUP WITH FAMILY DOCTOR IN ONE WEEK. FOLLOWUP WITH FAMILY DOCTOR FOR DIABETES AND HYPERTENSION FOLLOWUP WITH NEPHROLOGY ON June AT 10:40AM. LAB: BMP NEXT MONDAY AND THEN WEEKLY X 4 WEEKS AND FOLLOW RESULTS WITH FAMILY DOCTOR AND NEPHROLOGY. LAB: CBC WEEKLY IN 4 WEEKS AND FOLLOW RESULTS WITH FAMILY DOCTOR AND NEPHROLOGY. Current Hospital Diet Patient's current hospital diet: Diabetes Type 2 Diet Discharge Diet Recommended Diet: Diabetes Type 2 Diet Pending Studies Studies pending at discharge: no Laboratory Results Hemoglobin A1c Test 04/17/17 13:50 Range/Units Estimated Average Glucose 349 mg/dl Hemoglobin A1c 13.8 H 4.5-5.6 % Lipid Panel Test 04/19/17 20:00 04/24/17 07:24 Range/Units Triglycerides Level 1456 H 596 H 0-150 mg/dl Cholesterol Level 293 H 0-200 mg/dl HDL Cholesterol 20 mg/dl Cholesterol/HDL Ratio 14.7 LDL Cholesterol, Calculated mg/dl Medical Emergencies . Who to Call and When: Medical Emergencies: If at any time you feel your situation is an emergency, please call 911 immediately. . Non-Emergent Contact Non-Emergency issues call your: Primary Care Provider . . "Provider Documentation" section prepared by Mayur Hubbard. . VTE Core Measure Inpt VTE Proph given/why not?: Unfractionated heparin SQ (REFUSED), SCD's
[2017-05-26] MEDS ORDERED: INSULIN GLARGINE SOLOSTAR 100 UNITS/ML 3 ML PEN SC SCH (20:00)
== END 2017-05-26 17:16 | disposition home or self-care (01) | DRG 871 ==
LOC: C.EDB 14:04 → C.MSICU 18:12 → EDBEDREQ 18:38 → ENRESERV 18:56 → C.MS4W 05-24 14:05
PROVIDERS: ADMIT Family Medicine; ATTEND Internal Medicine
PROC: 03H633Z Insertion of Infusion Device into Left Axillary Artery, Percutaneous Approach (ICD-10-PCS; principal; 2017-05-22)
PROC: 5A1945Z Respiratory Ventilation, 24-96 Consecutive Hours (ICD-10-PCS; principal; 2017-05-22)
DX: A41.9 Sepsis, unspecified organism (principal); G92 Toxic encephalopathy; J96.90 Respiratory failure, unspecified, unspecified whether with hypoxia or hypercapnia; E87.2 Acidosis; N17.9 Acute kidney failure, unspecified; N18.4 Chronic kidney disease, stage 4 (severe); R65.11 Systemic inflammatory response syndrome (SIRS) of non-infectious origin with acute organ dysfunction; Z93.3 Colostomy status; I16.0 Hypertensive urgency; F17.200 Nicotine dependence, unspecified, uncomplicated; Z79.4 Long term (current) use of insulin; Z91.030 Bee allergy status; E10.9 Type 1 diabetes mellitus without complications; D72.829 Elevated white blood cell count, unspecified; Z87.01 Personal history of pneumonia (recurrent); Z83.3 Family history of diabetes mellitus

== ENCOUNTER 2017-06-11 17:38 | Inpatient (IN) | payer BC ==
[~2017-06-11] VITALS: Ht 160 cm; Wt 80.9 kg
[~2017-06-11 17:38] MED LIST changes: -HYDR25TA4 PO; -INSDGIPEN SC; +INSU1INJ33 PO; -VANC1CAP3 PO
[2017-06-11] MEDS ORDERED: MoRPHine SULFATE 4 MG/ML 1 ML CARP\\VIAL IV PRN (18:15)
[2017-06-11] MEDS ORDERED: SODIUM CHLORIDE 0.9% 1000ML 1,000 ML IV ONE ×3 (18:15→22:00)
[2017-06-11] MEDS ORDERED: ONDANSETRON INJ 2 MG/ML 2 ML VIAL IV PRN (18:15)
--- NOTE | 2017-06-11 18:29 | EMERGENCY ROOM VISIT NOTE ---
History First contact with patient: 17:49 Chief Complaint: ILLNESS Stated Complaint: DIZZY, RT BREAST PAIN, NAUSEA History of Present Illness The patient is a 42 year old female who presents to the Emergency Room with complaints of right breast pain, dizziness, nausea and vomiting for the last 2 days. The patient has a history of type 1 diabetes. She has been in DKA, sepsis and required intubation twice in the last few months. She says that when she is in DKA, this is how she presents. She denies any infectious symptoms such as fever, cough, sinus congestion, dysuria or diarrhea. She denies any abdominal pain. She has tried to take ibuprofen with minimal relief of her breast pain. The patient was discharged from the hospital in early May. She followed up with her branch maker this past Monday. She reports being compliant with her insulin. Review of Systems 10 system review performed and negative unless noted in HPI or below Past Medical/Surgical History Medical Problems: (1) Acidosis (2) Acute kidney injury (3) ARF (acute renal failure) (4) Clostridium difficile colitis (5) Colostomy (6) DKA (diabetic ketoacidoses) (7) Lumbar Disc Displacement (8) Pneumonia (9) Sepsis Family History Diabetes mellitus Heart disease Social History Smoking Status: Current Every Day Smoker Alcohol Use: none Drug Use: none Marital Status: Housing Status: lives with family Occupation Status: employed Current/Historical Medications Scheduled Amlodipine (Norvasc), 10 MG PO DAILY Atorvastatin (Lipitor), 10 MG PO DAILY Cholecalciferol (Vitamin D3), 5,000 INTER.UNIT PO DAILY Duloxetine Hcl (Cymbalta), 60 MG PO QPM Esomeprazole Magnesium (Nexium), 40 MG PO QAM Fenofibrate (Tricor), 160 MG PO DAILY Insulin Degludec (Tresiba Flextouch), 110 UNITS PO DAILY Insulin Lispro (Human) (Humalog Kwikpen), 20 UNITS SQ TIDM Lisinopril (Lisinopril), 10 MG PO DAILY [place]-3 Fatty Acids (Fish Oil), 1,000 MG PO BID Pregabalin (Lyrica), 50 MG PO TID Propranolol Hcl (Propranolol Hcl Er), 120 MG PO BID Sodium Bicarbonate (Sodium Bicarbonate), 1,300 MG PO TID Scheduled PRN Albuterol Hfa (Ventolin Hfa), 2 PUFFS INH Q4H PRN for SOB/Wheezing Physical Exam Vital Signs Date Time Temp Pulse Resp B/P (MAP) Pulse Ox O2 Delivery O2 Flow Rate FiO2 06/11/17 20:36 86 20 178/93 100 Room Air 06/11/17 18:48 78 20 144/82 97 Room Air 06/11/17 18:30 89 06/11/17 17:45 36.4 100 22 153/94 98 Room Air Physical Exam VITALS: Vitals are noted on the nurse's note and reviewed by myself. Vital signs stable. GENERAL: 42-year-old female, slightly anxious in appearance,, SKIN: The skin was without rashes, erythema, edema, or bruising. HEAD: Normocephalic atraumatic. MOUTH: Mucous membranes dry NECK: Supple without nuchal rigidity. No lymphadenopathy. Cervical spine is nontender. No JVD. HEART: Tachycardic, occasionally irregular. Systolic murmur noted. . BREAST: Diffuse, mild tenderness to palpation over the right breast. No induration, erythema or edema noted. LUNGS: Clear to auscultation bilaterally without wheezes, rales or rhonchi. No accessory muscle use. ABDOMEN: Positive bowel sounds x 4.Soft, nontender, without organomegaly. No guarding or rebound tenderness. MUSCULOSKELETAL: No muscle atrophy, erythema, or edema noted. . Strength 5/5 throughout. NEURO: Patient was alert and oriented to person place and time. Normal sensation to touch. No focal neurological deficits. Medical Decision & Procedures ER Provider Diagnostic Interpretation: Chest and abdominal x-rays IMPRESSION: 1. No active disease in the chest. 2. Nonobstructed abdominal bowel gas pattern. 3. Cholelithiasis. Electronically signed by: Lev López M.D. 06/11/2017 7:23 PM Dictated Date/Time: 06/11/2017 7:22 PM The status of this report is Signed. Draft = Not yet reviewed or approved by Radiologist. Signed = Reviewed and approved by Radiologist. Laboratory Results 06/11/17 18:20 Red Blood Count 4.67, Mean Corpuscular Volume 83.7, Mean Corpuscular Hemoglobin 27.2, Mean Corpuscular Hemoglobin Concent 32.5, Mean Platelet Volume 9.3, Neutrophils (%) (Auto) 68.2, Lymphocytes (%) (Auto) 26.1, Monocytes (%) (Auto) 4.7, Eosinophils (%) (Auto) 0.2, Basophils (%) (Auto) 0.5, Neutrophils # (Auto) 9.05, Lymphocytes # (Auto) 3.47, Monocytes # (Auto) 0.63, Eosinophils # (Auto) 0.03, Basophils # (Auto) 0.06 06/11/17 20:01 Test 06/11/17 18:20 06/11/17 18:23 06/11/17 20:01 06/11/17 20:02 White Blood Count 13.28 K/uL (4.8-10.8) Red Blood Count 4.67 M/uL (4.2-5.4) Hemoglobin 12.7 g/dL (12.0-16.0) Hematocrit 39.1 % (37-47) Mean Corpuscular Volume 83.7 fL (80-100) Mean Corpuscular Hemoglobin 27.2 pg (25-34) Mean Corpuscular Hemoglobin Concent 32.5 g/dl (32-36) Platelet Count 710 K/uL (130-400) Mean Platelet Volume 9.3 fL (7.4-10.4) Neutrophils (%) (Auto) 68.2 % Lymphocytes (%) (Auto) 26.1 % Monocytes (%) (Auto) 4.7 % Eosinophils (%) (Auto) 0.2 % Basophils (%) (Auto) 0.5 % Neutrophils # (Auto) 9.05 K/uL (1.4-6.5) Lymphocytes # (Auto) 3.47 K/uL (1.2-3.4) Monocytes # (Auto) 0.63 K/uL (0.11-0.59) Eosinophils # (Auto) 0.03 K/uL (0-0.5) Basophils # (Auto) 0.06 K/uL (0-0.2) RDW Standard Deviation 55.4 fL (36.4-46.3) RDW Coefficient of Variation 18.1 % (11.5-14.5) Immature Granulocyte % (Auto) 0.3 % Immature Granulocyte # (Auto) 0.04 K/uL (0.00-0.02) Prothrombin Time 10.4 SECONDS (9.0-12.0) Prothromb Time International Ratio 1.0 (0.9-1.1) Activated Partial Thromboplast Time 38.5 SECONDS (21.0-31.0) Partial Thromboplastin Ratio 1.5 Lactic Acid Level 0.6 mmol/L (0.4-2.0) Magnesium Level 2.4 mg/dl (1.8-2.4) Total Bilirubin 0.3 mg/dl (0.2-1) Aspartate Amino Transf (AST/SGOT) 9 U/L (15-37) Alanine Aminotransferase (ALT/SGPT) 18 U/L (12-78) Alkaline Phosphatase 80 U/L (45-117) Creatine Kinase MB 2.0 ng/ml (0.5-3.6) Creatine Kinase MB Ratio 5.3 (0-3.0) Troponin I < 0.015 ng/ml (0-0.045) Total Protein 9.3 gm/dl (6.4-8.2) Albumin 4.7 gm/dl (3.4-5.0) Globulin 4.6 gm/dl (2.5-4.0) Albumin/Globulin Ratio 1.0 (0.9-2) Lipase 1483 U/L (73-393) Urine Color YELLOW Urine Appearance CLOUDY (CLEAR) Urine pH 5.0 (4.5-7.5) Urine Specific [place] 1.031 (1.000-1.030) Urine Protein 2+ (NEG) Urine Glucose (UA) NEG (NEG) Urine Ketones NEG (NEG) Urine Occult Blood NEG (NEG) Urine Nitrite NEG (NEG) Urine Bilirubin NEG (NEG) Urine Urobilinogen NEG (NEG) Urine Leukocyte Esterase NEG (NEG) Urine WBC (Auto) 1-5 /hpf (0-5) Urine RBC (Auto) 0-4 /hpf (0-4) Urine Hyaline Casts (Auto) 1-5 /lpf (0-5) Urine Epithelial Cells (Auto) >30 /lpf (0-5) Urine Bacteria (Auto) NEG (NEG) Urine Test NEG (NEG) Anion Gap 13.0 mmol/L (3-11) Est Creatinine Clear Calc Drug Dose 30.3 ml/min Estimated GFR () 28.1 Estimated GFR (Non- 24.2 BUN/Creatinine Ratio 18.7 (10-20) Calcium Level 9.7 mg/dl (8.5-10.1) Phosphorus Level 5.0 mg/dl (2.5-4.9) Procalcitonin 0.31 ng/ml (0-0.5) Parathyroid Hormone (Intact) 46.6 pg/mL (18.4-80.1) Ethyl Alcohol mg/dL < 3.0 mg/dl (0-3) Venous Blood pH 7.04 (7.36-7.41) Venous Blood Partial Pressure CO2 38 mmHg (38.0-50.0) Venous Blood Partial Pressure O2 33 mmHg Venous Blood HCO3 10 mmol/L Venous Blood Oxygen Saturation < 60.0 % Venous Blood Base Excess -19.9 mEq/L Test 06/11/17 20:39 Bedside Glucose 157 mg/dl (70-90) Medications Administered Medications (Trade) Dose Ordered Sig/Yudy Route Start Time Stop Time Status Last Admin Dose Admin Sodium Chloride 1,000 ml @ 999 mls/hr Q1H1M ONCE IV 06/11/17 18:15 06/11/17 19:15 DC 06/11/17 18:21 999 MLS/HR Morphine Sulfate (MoRPHine SULFATE INJ) 4 mg Q1H PRN IV 06/11/17 18:15 06/11/17 21:19 DC 06/11/17 18:22 4 MG Ondansetron HCl (Zofran Inj) 4 mg Q2H PRN IV 06/11/17 18:15 06/11/17 21:55 DC 06/11/17 18:21 4 MG Sodium Chloride 1,000 ml @ 999 mls/hr Q1H1M ONCE IV 06/11/17 18:45 06/11/17 19:45 DC 06/11/17 18:38 999 MLS/HR Sodium Chloride 1,000 ml @ 500 mls/hr Q2H STAT IV 06/11/17 19:48 06/11/17 21:47 DC 06/11/17 19:48 500 MLS/HR ECG Per My Interpretation Indication: other Rate (beats per minute): 98 Rhythm: sinus tachycardia Findings: PVC, other (Q waves in the anterior leads) Change: no significant change ED Course Patient was seen and examined Vital signs including blood pressure were reviewed medications list was verified with patient Labs were obtained, and a saline lock was established The monitor was applied. Her EKG was reviewed. The patient was medicated with morphine and Zofran. She was hydrated with 1 L of normal saline. The patient's labs were reviewed. She was given an additional bolus of 1 L of normal saline. She was feeling much better. The patient was also assessed by my supervising physician who is in agreement with my plan. I reviewed the patient's workup with her and her significant other. They voiced understanding. She was in agreement with admission. The case was discussed with case management and subsequently the [facility] service. They kindly agreed to admit the patient for further treatment. Medical Decision Differential diagnosis: DKA, sepsis, anxiety, pancreatitis, hyperglycemia, This patient is a 42-year-old female that presents to the emergency department with complaints of breast pain, dizziness and vomiting. On exam, she appeared dry. Her workup reveals acute renal failure, leukocytosis, acidosis with a bicarbonate of 9 and a gap of 16. I cannot find any infectious source. The patient's lipase is also significantly elevated at 1400. The patient is not stable to be discharged home. She will need to be admitted for further workup and treatment. She remained stable in the emergency department. This chart was completed in part utilizing [employer] Speech Voice Recognition software. Attempts were made to minimize the grammatical errors, random word insertions, pronoun errors and incomplete sentences. Any formal questions or concerns about the content, text or information contained within the body of this dictation should be directly addressed to the provider for clarification. Impression Primary Impression: ARF (acute renal failure) Departure Information Referrals Wiliam Garsia M.D. (PCP) Patient Instructions My [facility]
[2017-06-11] MEDS ORDERED: INSU100I2 SQ (18:32)
[2017-06-11] MEDS ORDERED: CHOL1000 PO (18:33)
[2017-06-11] MEDS ORDERED: OMEG10002 PO (18:33)
[2017-06-11 18:36] LABS: BASO % 0.5 %; BASO ABS # 0.06 K/uL (0-0.2); EOS % 0.2 %; EOS ABS # 0.03 K/uL (0-0.5); HEMATOCRIT 39.1 % (37-47); HEMOGLOBIN 12.7 g/dL (12.0-16.0); IG# 0.04 K/uL (0.00-0.02); LYMPH % 26.1 %; LYMPH ABS # 3.47 K/uL (1.2-3.4); MEAN CELL VOLUME 83.7 fL (80-100); MEAN CORPUSCULAR HEMOGLOBIN 27.2 pg (25-34); MEAN CORPUSCULAR HGB CONC 32.5 g/dl (32-36); MEAN PLATELET VOLUME 9.3 fL (7.4-10.4); MONO % 4.7 %; MONO ABS # 0.63 K/uL (0.11-0.59); NEUT % 68.2 %; NEUT ABS # 9.05 K/uL (1.4-6.5); PLATELET COUNT 710 K/uL (130-400); RED CELL DISTRIBUTION WIDTH CV 18.1 % (11.5-14.5); RED CELL DISTRIBUTION WIDTH SD 55.4 fL (36.4-46.3); WHITE BLOOD COUNT 13.28 K/uL (4.8-10.8)
[2017-06-11 19:09] LABS: PTT PATIENT 38.5 SECONDS (21.0-31.0)
[2017-06-11 19:12] LABS: ALBUMIN 4.7 gm/dl (3.4-5.0); ALKALINE PHOSPHATASE 80 U/L (45-117); ALT/SGPT 18 U/L (12-78); AST/SGOT 9 U/L (15-37); BLOOD UREA NITROGEN 49 mg/dl (7-18); CARBON DIOXIDE 9 mmol/L (21-32); CREATININE 2.69 mg/dl (0.60-1.20); GLUCOSE 173 mg/dl (70-99); LIPASE 1483 U/L (73-393); POTASSIUM 4.7 mmol/L (3.5-5.1); SODIUM 132 mmol/L (136-145); TOTAL PROTEIN 9.3 gm/dl (6.4-8.2)
--- NOTE | 2017-06-11 19:24 | DIAGNOSTIC IMAGING REPORT ---
PA CHEST WITH ABDOMINAL SERIES CLINICAL HISTORY: Dizziness. Nausea. FINDINGS: A PA chest radiograph is compared to study dated 05/23/2017. The heart is top normal for projection. There is atherosclerotic calcification of the thoracic aorta. Chronic interstitial thickening is unchanged. No airspace consolidation or large pleural effusion is identified. No pneumothorax is seen. The bony thorax is grossly intact. Supine and erect abdominal radiographs are compared to study dated 04/21/2017. There is a nonobstructed abdominal bowel gas pattern. No evidence of intraperitoneal free air is seen. The liver appears enlarged. Calcified gallstones are identified in the right upper quadrant. The lumbosacral spine and bony pelvis appear intact. Fusion hardware is noted in the lower lumbar spine. IMPRESSION: 1. No active disease in the chest. 2. Nonobstructed abdominal bowel gas pattern. 3. Cholelithiasis. Electronically signed by: Lev López M.D. 06/11/2017 7:23 PM Dictated Date/Time: 06/11/2017 7:22 PM
[2017-06-11] MEDS ORDERED: SODIUM CHLORIDE 0.9% 1000ML 1,000 ML IV SCH ×3 (19:45→23:00)
[2017-06-11] MEDS ORDERED: PROCHLORPERAZINE INJ 5 MG in SYRINGE 4 ML IV PRN (19:45)
[2017-06-11] MEDS ORDERED: TRAMADOL HCL 50 MG TAB PO PRN (19:45)
[2017-06-11] MEDS ORDERED: HYDROmorphone INJ 0.5 MG/0.5 ML SYR IV PRN (19:45)
[2017-06-11] MEDS ORDERED: SODIUM CHLORIDE 0.9% 1000ML 1,000 ML IV STA (19:48)
--- NOTE | 2017-06-11 20:43 | DIAGNOSTIC IMAGING REPORT ---
CT SCAN OF THE ABDOMEN AND PELVIS WITHOUT IV CONTRAST CLINICAL HISTORY: Nausea and vomiting. COMPARISON STUDY: Abdominal CT dated 04/21/2017. TECHNIQUE: CT scan of the abdomen and pelvis is performed from the lung bases to the proximal femora. Images are reviewed in the axial, sagittal, and coronal planes. IV contrast was not administered for this examination as per the referring clinician. Note that the examination was performed in significantly suboptimal fashion without oral and IV contrast. A dose lowering technique was utilized adhering to the principles of ALARA. CT DOSE: 590.36 mGy.cm FINDINGS: Lung bases: The heart is normal in size and without pericardial effusion. The lung bases are clear. Liver: The unenhanced liver is enlarged, measuring 22.3 cm and length. The liver demonstrates diffusely diminished attenuation consistent with hepatic steatosis. Fatty sparing is seen adjacent to gallbladder fossa. There is no intrahepatic biliary ductal dilatation. Gallbladder: Calcified gallstones are identified. There is no CT evidence of acute cholecystitis. Spleen: Normal in size and attenuation. Pancreas: Unremarkable. Adrenal glands: Unremarkable. Kidneys: The unenhanced kidneys are normal in size and without hydronephrosis. A single small nonobstructing calculus is identified in each kidney. These measure up to 3 mm. There is no evidence of contour deforming renal mass lesion. Abdominal vasculature: The abdominal aorta is normal in course and caliber. Stomach and bowel: A tiny hiatal hernia is identified. The stomach and duodenum are normal in configuration. There are postoperative changes from subtotal colectomy with ileocolic anastomosis. No bowel obstruction is seen. Focal dilatation is noted at the anastomotic site, likely related to denervation. Fecalization is identified in the distal small bowel. There is no bowel obstruction. The appendix is presumed surgically absent. Peritoneum: There is no intraperitoneal free air or abdominal ascites. A midline surgical scar is noted. Lymphadenopathy: None. Pelvic viscera: The bladder, uterus, and adnexa are normal as visualized. Bilateral ovarian follicles are noted. Skeletal structures: There are postoperative changes from L4 to L5 spinal fusion. No lytic or blastic lesions are seen. A hemitransitional right lumbosacral segment is incidentally noted. IMPRESSION: 1. Significantly suboptimal examination without oral and IV contrast. 2. There are no acute infectious or inflammatory findings in the abdomen or pelvis. 3. Cholelithiasis. 4. There are postoperative changes from subtotal colectomy with ileocolic anastomosis. No bowel obstruction is seen. 5. There are small bilateral nonobstructing renal calculi. 6. Hepatomegaly and hepatic steatosis. 7. Additional findings as above. Electronically signed by: Lev López M.D. 06/11/2017 8:41 PM Dictated Date/Time: 06/11/2017 8:35 PM
[2017-06-11 20:44] LABS: CALCIUM 9.7 mg/dl (8.5-10.1); CREATININE 2.36 mg/dl (0.60-1.20); POTASSIUM 4.5 mmol/L (3.5-5.1)
[2017-06-11] MEDS ORDERED: SODIUM BICARB 8.4% INJ 50 MEQ/50 ML SYR IV STA (20:53)
[2017-06-11] MEDS ORDERED: SODIUM BICARBONATE 650 MG TAB PO ONE (20:55)
[2017-06-11] MEDS ORDERED: PREGABALIN 50 MG CAP PO ONE (21:08)
[2017-06-11] MEDS ORDERED: INSULIN GLARGINE SOLOSTAR 100 UNITS/ML 3 ML PEN SC ONE (21:08)
[2017-06-11] MEDS ORDERED: INSULIN ASPART 100 UNITS/ML 3 ML PEN SC ONE (21:08)
[2017-06-11] MEDS ORDERED: GLUCOSE 40% GEL 15 GM TUBE PO PRN (21:15)
[2017-06-11] MEDS ORDERED: GLUCAGON FOR INJ 1 MG VIAL SQ PRN (21:15)
[2017-06-11] MEDS ORDERED: GLUCOSE 10 TABS/TUBE PO PRN (21:15)
[2017-06-11] MEDS ORDERED: DEXTROSE 50% 50 ML SYR IV PRN (21:15)
[2017-06-11] MEDS: ACETAMINOPHEN 325 MG TAB PO PRN (22:02)
[2017-06-11 22:44] VITALS: BP 169/85; PULSE 84; TEMP 36.4; O2SAT 100
[2017-06-11] MEDS: PROPRANOLOL HCL 60 MG LA CAP PO SCH (22:49)
[2017-06-11] MEDS: HEPARIN SOD 5000 UNIT/0.5 ML CARP SQ SCH (22:51)
[2017-06-11 23:46] VITALS: BP 159/83; PULSE 90; TEMP 36.5; O2SAT 99; Ht 160 cm; Wt 80.9 kg
[2017-06-12] MEDS ORDERED: INSULIN ASPART 100 UNITS/ML 3 ML PEN SC SCH
[2017-06-12 00:44] LABS: CREATININE 1.84 mg/dl (0.60-1.20); POTASSIUM 3.9 mmol/L (3.5-5.1)
[2017-06-12] MEDS ORDERED: SODIUM BICARB 8.4% INJ 50 MEQ/50 ML SYR IV STA (00:48)
[2017-06-12] MEDS ORDERED: SODIUM CHLORIDE 0.9% 1000ML 1,000 ML IV STA (00:48)
--- NOTE | 2017-06-12 01:57 | HISTORY & PHYSICAL EXAMINATION ---
DATE OF ADMISSION: 06/11/2017 PRIMARY CARE DOCTOR: Dr. Garsia. CHIEF COMPLAINT: Dizziness, right breast pain, nausea. HISTORY OF PRESENT ILLNESS: History obtained from patient and records. Medical history significant for DM1, hypertension, ongoing tobacco abuse; chronic anemia (baseline hemoglobin of 8), GERD, CRI (baseline creatinine 1.6- 2.19), chronic metabolic acidosis as per records, hx severe C. difficile colitis status post bowel resection hx Salmonella bacteremia as per records. Recent confinement last May a few weeks ago for sepsis syndrome. Few day's history of nausea, vomiting, minimal upper abdominal discomfort, good bowel movement, no diarrhea. Patient noted right-sided breast pain which she gets from time to time when she is ill. No shortness of breath, no fever, no chills. Intermittent intake of ibuprofen for breast pain. Patient brought to the Emergency Room. MEDICAL HISTORY: As above. SURGERIES: Bowel surgery , breast surgery, tracheostomy for prolonged intubation, and back surgery. HOME MEDICATIONS: Include sodium bicarbonate, TriCor, Humalog insulin, fish oil, Lyrica, propranolol, Ventolin, Lipitor, Norvasc, vitamin D3, Cymbalta, Nexium. Tresiba ALLERGIES: BEE STING. FAMILY HISTORY: Colon CA, diabetes. PERSONAL AND SOCIAL HISTORY: One-fourth pack daily. No chronic intake of alcohol. 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 REVIEW OF SYSTEMS: As per HPI, all 10 systems reviewed, all other ROS negative. PHYSICAL EXAMINATION: VITAL SIGNS: Blood pressure noted to be 144/82, pulse rate 70, RR 20, temperature 36.4, sats 98 on room air. GENERAL: Noted to be obese, comfortable, no respiratory distress. SKIN: Normal color, warm. HEENT: [place] palpebral conjunctivae. No ptosis. Dry mucosa. NECK: Short neck, supple. CHEST: Clear to auscultation. No tenderness. HEART: Regular rate and rhythm, no murmur. ABDOMEN: Some distention, minimal epigastric tenderness. EXTREMITIES: No edema, no tenderness. No gross deformity. NEUROLOGIC: Coherent, no gross focality. LABORATORY DATA: Hemoglobin is 12.7, white cells 5_ platelets 710. Sodium noted to be 132, potassium 4.7, chloride 107, CO2 9, BUN 49, creatinine 2.639, glucose was 173. Lipase is 1483. AG 16 Venous blood gas pH of 7.04, pCO2 was 38. IMAGING DATA: Chest and abdomen x-ray showed no active disease cholelithiasis. CT abdomen and pelvis showed cholelithiasis, postop changes, no bowel obstruction. ASSESSMENT AND PLAN: 1. Acute renal failure on chronic renal insufficiency Recurrent metabolic acidosis secondary to viral gastrointestinal illness. 2. Hypertension, elevated 3. DM1 suboptimal control as of recent inpatient hemoglobin A1c of 13.17 April 2017. 4. Ongoing tobacco abuse. GMF IV fluids. Follow renal function. Hold home JAGRUTI inhibitor until creatinine at baseline. Facilitate bicarb. Nephrology consult, ARF on CRI. metabolic acidosis (Patient known Dr. Everett.) Basal insulin adjusted for clear liquid diet for now until metabolic acidosis is resolved. Nicotine patch. DVT prophylaxis, Heparin subQ. Full code. MTDD
[2017-06-12] MEDS: SODIUM CHLORIDE 0.9% 1000ML 1,000 ML IV SCH ×4 (01:58→15:36)
[2017-06-12 05:33] LABS: HEMATOCRIT 32.4 % (37-47); HEMOGLOBIN 10.3 g/dL (12.0-16.0); MEAN CELL VOLUME 84.4 fL (80-100); MEAN CORPUSCULAR HEMOGLOBIN 26.8 pg (25-34); MEAN CORPUSCULAR HGB CONC 31.8 g/dl (32-36); MEAN PLATELET VOLUME 8.9 fL (7.4-10.4); PLATELET COUNT 393 K/uL (130-400); RED CELL DISTRIBUTION WIDTH CV 18.2 % (11.5-14.5); RED CELL DISTRIBUTION WIDTH SD 56.7 fL (36.4-46.3); WHITE BLOOD COUNT 11.07 K/uL (4.8-10.8)
[2017-06-12] MEDS: HEPARIN SOD 5000 UNIT/0.5 ML CARP SQ SCH ×3 (05:41→21:58)
[2017-06-12 06:14] LABS: CALCIUM 8.6 mg/dl (8.5-10.1); CREATININE 1.67 mg/dl (0.60-1.20); POTASSIUM 3.8 mmol/L (3.5-5.1)
[2017-06-12 06:16] LABS: BASO % 0.4 %; BASO ABS # 0.04 K/uL (0-0.2); EOS % 1.1 %; EOS ABS # 0.12 K/uL (0-0.5); IG# 0.08 K/uL (0.00-0.02); LYMPH % 19.8 %; LYMPH ABS # 2.19 K/uL (1.2-3.4); MONO % 4.5 %; NEUT % 73.5 %; NEUT ABS # 8.14 K/uL (1.4-6.5)
[2017-06-12 06:56] VITALS: BP 143/88; PULSE 79; TEMP 36.3; O2SAT 99
[2017-06-12 08:18] VITALS: BP_SYST 135; BP_SYST 137; BP_DIAS 83; BP_DIAS 85; PULSE 84
[2017-06-12] MEDS: PANTOprazole SOD 40 MG TAB PO SCH (08:43)
[2017-06-12] MEDS: NICOTINE 7 MG/24 HR TDSY TD SCH (08:46)
[2017-06-12] MEDS: INSULIN ASPART 100 UNITS/ML 3 ML PEN SC SCH ×5 (08:47→23:49)
[2017-06-12] MEDS: AMLODIPINE BESYLATE 5 MG TAB PO SCH (08:49)
[2017-06-12] MEDS: SODIUM BICARBONATE 650 MG TAB PO SCH ×3 (08:50→19:37)
[2017-06-12] MEDS: PROPRANOLOL HCL 60 MG LA CAP PO SCH ×2 (08:51→19:37)
[2017-06-12] MEDS: PREGABALIN 50 MG CAP PO SCH ×3 (08:54→19:36)
[2017-06-12] MEDS ORDERED: ATORVASTATIN 10 MG TAB PO SCH (09:00)
--- NOTE | 2017-06-12 09:22 | Clinical Documentation Query ---
CLINICAL DOCUMENTATION QUERY 42 year old female who presents to the Emergency Room with complaints of right breast pain, dizziness, nausea and vomiting. H&P states hx of CRI. Documenting the stage of CKD will improve data integrity and will help clarify vague terms such as "renal insufficiency" or "chronic renal failure." In your clinical opinion is this patient being managed for: ( ) Chronic kidney disease, stage 3 (moderate) ( ) Not Agree ( ) Other explanation of clinical findings (Please Explain) ( ) Unable to determine (Please Define) ( ) Need to Discuss The medical record reflects the following clinical findings, treatment, and risk factors. Clinical Indicators: As above. BUN 38, creatinine 1.67, GFR 36.8, Treatment: IVF's, bicarb, daily PRP's, Nephrology consult Risk Factors: Age, poorly controlled DM, HTN, Please clarify and document your clinical opinion in the progress notes and discharge summary. Terms such as "probable", "suspected", "likely", "questionable", "possible", or "still to be ruled out" are acceptable. IF IN AGREEMENT, YOU MUST DOCUMENT ABOVE DIAGNOSTIC STATEMENT IN DAILY PROGRESS NOTES AND DISCHARGE SUMMARY. This document is not part of the patient's record. The stages of CKD according to the [employer] are as follows: Stage I: GFR >90 Stage II: GFR 60-89 Stage III: GFR 30-59 Stage IV: GFR 15-29 Stage V: GFR <15 Thank You, Donovan Orlando, RN [phone]
[2017-06-12] MEDS ORDERED: PHARMACY GLYCEMIC MGMT CONSULT PRN (14:59)
--- NOTE | 2017-06-12 15:24 | Pharmacy Progress Note ---
Glycemic Control Intl Consult Date of Service Jun 12, 2017. Scope Glycemic Pharmacist consulted by Dr Hubbard on 06/12/17 for glycemic control and to write orders per [facility] inpatient glycemic control protocol Objective Weight (Kilograms): 82.700 Accuchecks BSG (last 24hrs): Test 06/11/17 18:09 06/11/17 18:20 06/11/17 20:01 06/11/17 20:39 Bedside Glucose 168 mg/dl (70-90) 157 mg/dl (70-90) Random Glucose 173 mg/dl (70-99) 156 mg/dl (70-99) Test 06/11/17 22:10 06/12/17 00:13 06/12/17 05:13 06/12/17 08:39 Bedside Glucose 134 mg/dl (70-90) 94 mg/dl (70-90) Random Glucose 98 mg/dl (70-99) 81 mg/dl (70-99) Test 06/12/17 11:12 Bedside Glucose 112 mg/dl (70-90) Laboratory Data (last 24hrs) Test 06/11/17 18:20 06/11/17 20:01 06/12/17 00:13 06/12/17 05:13 Anion Gap 16.0 mmol/L 13.0 mmol/L 13.0 mmol/L 12.0 mmol/L BUN/Creatinine Ratio 18.1 18.7 22.0 22.6 Blood Urea Nitrogen 49 mg/dl 44 mg/dl 41 mg/dl 38 mg/dl Creatinine 2.69 mg/dl 2.36 mg/dl 1.84 mg/dl 1.67 mg/dl Potassium Level 4.7 mmol/L 4.5 mmol/L 3.9 mmol/L 3.8 mmol/L Sodium Level 132 mmol/L 134 mmol/L 139 mmol/L 141 mmol/L White Blood Count 13.28 K/uL 11.07 K/uL Red Blood Count 4.67 M/uL 3.84 M/uL Hemoglobin 12.7 g/dL 10.3 g/dL Hematocrit 39.1 % 32.4 % Mean Corpuscular Volume 83.7 fL 84.4 fL Mean Corpuscular Hemoglobin 27.2 pg 26.8 pg Mean Corpuscular Hemoglobin Concent 32.5 g/dl 31.8 g/dl Platelet Count 710 K/uL 393 K/uL Mean Platelet Volume 9.3 fL 8.9 fL Neutrophils (%) (Auto) 68.2 % 73.5 % Lymphocytes (%) (Auto) 26.1 % 19.8 % Monocytes (%) (Auto) 4.7 % 4.5 % Eosinophils (%) (Auto) 0.2 % 1.1 % Basophils (%) (Auto) 0.5 % 0.4 % Neutrophils # (Auto) 9.05 K/uL 8.14 K/uL Lymphocytes # (Auto) 3.47 K/uL 2.19 K/uL Monocytes # (Auto) 0.63 K/uL 0.50 K/uL Eosinophils # (Auto) 0.03 K/uL 0.12 K/uL Basophils # (Auto) 0.06 K/uL 0.04 K/uL Recent Pertinent Medications Outpatient Anti-diabetic Regimen: * Tresiba 110 units daily * Humalog 20 units with meals * TDD = 170 units * A1c = 13.8 % 04/17/17 The patient is currently receiving: * Basal insulin: Lantus 5 units every 24 hours * Correctional Insulin: Novolog Correction per scale ACHS Goal Range: Low 140 mg/dL - High 180 mg/dL Correction Factor: 25 mg/dL/unit * Prandial insulin: Per carb ratio of 1 unit per 15 grams CHO consumed Risk Factors for Insulin Resistance: * Diet: just advanced to type 1 diabetes Risk Factors for Insulin Sensitivity: * ARF - now back to baseline * NPO until now Assessment & Plan ASSESSMENT: * 42 y/o female with reported type 1 diabetes (unsure if this is the case with her high outpatient doses), admitted with ARF * She typically requires 170 units of insulin/day as an outpatient but has only received 5 units total since last evening due to ARF and being NPO * Her SCr is now back to baseline and her diet is being advanced, so I expect her insulin requirements to increase quickly * From her last admission, she was requiring ~120 units of insulin/day * Lantus 35 units BID * Novolog w/ CF 10, CR 3 * Will plan to resume this regimen, starting the Lantus with dinner since she is behind in basal dosing, and add overnight accuchecks if necessary * Will also order a scale for the Lantus should her BSGs remain on the lower side PLAN FOR INPATIENT GLYCEMIC CONTROL: * Increase Lantus to BID as per the following scale, starting with dinner: * 25 units for BSG < 110 * 30 units for BSG 110-150 * 35 units for BSG above 150 * Novolog ACHS + 00,04 checks * Goal 110-150 * CF 10 * CR 3 * Please note that the plan above was derived based on current level of insulin resistance and hospital stress. These recommendations are appropriate for inpatient admission only. Plan of care upon discharge will need to be reassessed to avoid potential outpatient hypo/hyperglycemia. Thank you.
[2017-06-12 15:36] VITALS: BP 123/74; PULSE 76; TEMP 36.5; O2SAT 98
--- NOTE | 2017-06-12 16:58 | Progress Note ---
Internal Med Progress Note Date of Service: Jun 12, 2017. Provider Documentation: SUBJECTIVE: say she felt dizzy and nauseous yesterday but nausea resolved now and request to advance the diet dizziness resolved sugars are ok at home say taking all her medications as prescribed at home no fevers no chest pain or sob OBJECTIVE: Vital Signs-as noted below Exam: General-alert and awake. ENT-normal hearing Neck-no neck masses Lungs-cta b/l no wheezing or crackles Heart-s1 and s2 heard regular no murmurs Abdomen-soft bowel sounds present non tender no distension Extremities-no edema no erythema Neuro-alert and awake moves extremities Lab data as noted below. ASSESSMENT & PLAN: 1. Acute renal failure on ckd stage 4 Recurrent metabolic acidosis secondary to viral gastrointestinal illness? presented with cr 2.6 cr 1.6 today on fluids nephrology consulted will f/u labs 2 Elevated Lipase presented with nausea but resolved now lipase trending down no abdominal pain ct scan without contrast normal pancreas tolerating clers advancing diet. 2. Hypertension, elevated on amlodipine and propranolol. BP ok now 3. Metabolic acidosis on bicarb tabs await nephro input 4. DM1 suboptimal control as of recent inpatient hemoglobin A1c of 13.17 April 2017. holding home meds Lantus and iss consulted pharmacy 5. Ongoing tobacco abuse. DVT PROPHYLAXIS hep sub q DISPOSITION to be determined Vital Signs: Date Time Temp Pulse Resp B/P (MAP) Pulse Ox O2 Delivery O2 Flow Rate FiO2 06/12/17 16:00 Room Air 06/12/17 15:36 36.5 76 18 123/74 (90) 98 06/12/17 08:18 84 137/83 (101) 84 135/85 (102) 06/12/17 08:00 Room Air 06/12/17 06:56 36.3 79 18 143/88 (106) 99 Room Air 06/11/17 23:46 36.5 90 20 159/83 99 Room Air 06/11/17 22:44 36.4 84 18 169/85 (113) 100 Room Air 06/11/17 21:10 88 18 149/93 100 Room Air 06/11/17 20:36 86 20 178/93 100 Room Air 06/11/17 18:48 78 20 144/82 97 Room Air 06/11/17 18:30 89 06/11/17 17:45 36.4 100 22 153/94 98 Room Air Lab Results: Results Past 24 Hours Test 06/11/17 18:09 06/11/17 18:12 06/11/17 18:20 06/11/17 18:23 Range/Units Bedside Glucose 168 70-90 mg/dl Creatine Kinase MB Ratio 5.3 0-3.0 White Blood Count 13.28 4.8-10.8 K/uL Red Blood Count 4.67 4.2-5.4 M/uL Hemoglobin 12.7 12.0-16.0 g/dL Hematocrit 39.1 37-47 % Mean Corpuscular Volume 83.7 80-100 fL Mean Corpuscular Hemoglobin 27.2 25-34 pg Mean Corpuscular Hemoglobin Concent 32.5 32-36 g/dl Platelet Count 710 130-400 K/uL Mean Platelet Volume 9.3 7.4-10.4 fL Neutrophils (%) (Auto) 68.2 % Lymphocytes (%) (Auto) 26.1 % Monocytes (%) (Auto) 4.7 % Eosinophils (%) (Auto) 0.2 % Basophils (%) (Auto) 0.5 % Neutrophils # (Auto) 9.05 1.4-6.5 K/uL Lymphocytes # (Auto) 3.47 1.2-3.4 K/uL Monocytes # (Auto) 0.63 0.11-0.59 K/uL Eosinophils # (Auto) 0.03 0-0.5 K/uL Basophils # (Auto) 0.06 0-0.2 K/uL RDW Standard Deviation 55.4 36.4-46.3 fL RDW Coefficient of Variation 18.1 11.5-14.5 % Immature Granulocyte % (Auto) 0.3 % Immature Granulocyte # (Auto) 0.04 0.00-0.02 K/uL Prothrombin Time 10.4 9.0-12.0 SECONDS Prothromb Time International Ratio 1.0 0.9-1.1 Activated Partial Thromboplast Time 38.5 21.0-31.0 SECONDS Partial Thromboplastin Ratio 1.5 Sodium Level 132 136-145 mmol/L Potassium Level 4.7 3.5-5.1 mmol/L Chloride Level 107 98-107 mmol/L Carbon Dioxide Level 9 21-32 mmol/L Anion Gap 16.0 3-11 mmol/L Blood Urea Nitrogen 49 7-18 mg/dl Creatinine 2.69 0.60-1.20 mg/dl Est Creatinine Clear Calc Drug Dose 26.6 ml/min Estimated GFR () 24.0 Estimated GFR (Non- 20.7 BUN/Creatinine Ratio 18.1 10-20 Random Glucose 173 70-99 mg/dl Lactic Acid Level 0.6 0.4-2.0 mmol/L Calcium Level 11.0 8.5-10.1 mg/dl Magnesium Level 2.4 1.8-2.4 mg/dl Total Bilirubin 0.3 0.2-1 mg/dl Aspartate Amino Transf (AST/SGOT) 9 15-37 U/L Alanine Aminotransferase (ALT/SGPT) 18 12-78 U/L Alkaline Phosphatase 80 45-117 U/L Total Creatine Kinase 38 26-192 U/L Creatine Kinase MB 2.0 0.5-3.6 ng/ml Troponin I < 0.015 0-0.045 ng/ml Total Protein 9.3 6.4-8.2 gm/dl Albumin 4.7 3.4-5.0 gm/dl Globulin 4.6 2.5-4.0 gm/dl Albumin/Globulin Ratio 1.0 0.9-2 Lipase 1483 73-393 U/L Urine Color YELLOW Urine Appearance CLOUDY CLEAR Urine pH 5.0 4.5-7.5 Urine Specific Allen 1.031 1.000-1.030 Urine Protein 2+ NEG Urine Glucose (UA) NEG NEG Urine Ketones NEG NEG Urine Occult Blood NEG NEG Urine Nitrite NEG NEG Urine Bilirubin NEG NEG Urine Urobilinogen NEG NEG Urine Leukocyte Esterase NEG NEG Urine WBC (Auto) 1-5 0-5 /hpf Urine RBC (Auto) 0-4 0-4 /hpf Urine Hyaline Casts (Auto) 1-5 0-5 /lpf Urine Epithelial Cells (Auto) >30 0-5 /lpf Urine Bacteria (Auto) NEG NEG Urine Test NEG NEG Test 06/11/17 20:01 06/11/17 20:02 06/11/17 20:39 06/11/17 21:31 Range/Units Sodium Level 134 136-145 mmol/L Potassium Level 4.5 3.5-5.1 mmol/L Chloride Level 110 98-107 mmol/L Carbon Dioxide Level 11 21-32 mmol/L Anion Gap 13.0 3-11 mmol/L Blood Urea Nitrogen 44 7-18 mg/dl Creatinine 2.36 0.60-1.20 mg/dl Est Creatinine Clear Calc Drug Dose 30.3 ml/min Estimated GFR () 28.1 Estimated GFR (Non- 24.2 BUN/Creatinine Ratio 18.7 10-20 Random Glucose 156 70-99 mg/dl Calcium Level 9.7 8.5-10.1 mg/dl Phosphorus Level 5.0 2.5-4.9 mg/dl Procalcitonin 0.31 0-0.5 ng/ml Parathyroid Hormone (Intact) 46.6 18.4-80.1 pg/mL Ethyl Alcohol mg/dL < 3.0 0-3 mg/dl Venous Blood pH 7.04 7.36-7.41 Venous Blood Partial Pressure CO2 38 38.0-50.0 mmHg Venous Blood Partial Pressure O2 33 mmHg Venous Blood HCO3 10 mmol/L Venous Blood Oxygen Saturation < 60.0 % Venous Blood Base Excess -19.9 mEq/L Bedside Glucose 157 70-90 mg/dl Total Creatine Kinase 32 26-192 U/L Acetaminophen Level 23 10-30 ug/ml Test 06/11/17 22:10 06/12/17 00:13 06/12/17 05:13 06/12/17 08:39 Range/Units Bedside Glucose 134 94 70-90 mg/dl Sodium Level 139 141 136-145 mmol/L Potassium Level 3.9 3.8 3.5-5.1 mmol/L Chloride Level 115 117 98-107 mmol/L Carbon Dioxide Level 11 12 21-32 mmol/L Anion Gap 13.0 12.0 3-11 mmol/L Blood Urea Nitrogen 41 38 7-18 mg/dl Creatinine 1.84 1.67 0.60-1.20 mg/dl Est Creatinine Clear Calc Drug Dose 39.7 43.8 ml/min Estimated GFR () 38.0 42.7 Estimated GFR (Non- 32.8 36.8 BUN/Creatinine Ratio 22.0 22.6 10-20 Random Glucose 98 81 70-99 mg/dl Calcium Level 9.0 8.6 8.5-10.1 mg/dl White Blood Count 11.07 4.8-10.8 K/uL Red Blood Count 3.84 4.2-5.4 M/uL Hemoglobin 10.3 12.0-16.0 g/dL Hematocrit 32.4 37-47 % Mean Corpuscular Volume 84.4 80-100 fL Mean Corpuscular Hemoglobin 26.8 25-34 pg Mean Corpuscular Hemoglobin Concent 31.8 32-36 g/dl Platelet Count 393 130-400 K/uL Mean Platelet Volume 8.9 7.4-10.4 fL Neutrophils (%) (Auto) 73.5 % Lymphocytes (%) (Auto) 19.8 % Monocytes (%) (Auto) 4.5 % Eosinophils (%) (Auto) 1.1 % Basophils (%) (Auto) 0.4 % Neutrophils # (Auto) 8.14 1.4-6.5 K/uL Lymphocytes # (Auto) 2.19 1.2-3.4 K/uL Monocytes # (Auto) 0.50 0.11-0.59 K/uL Eosinophils # (Auto) 0.12 0-0.5 K/uL Basophils # (Auto) 0.04 0-0.2 K/uL RDW Standard Deviation 56.7 36.4-46.3 fL RDW Coefficient of Variation 18.2 11.5-14.5 % Immature Granulocyte % (Auto) 0.7 % Immature Granulocyte # (Auto) 0.08 0.00-0.02 K/uL Lipase 755 73-393 U/L Test 06/12/17 11:12 Range/Units Bedside Glucose 112 70-90 mg/dl Microbiology Results 06/11/17 Blood Culture, Received Pending 06/11/17 Blood Culture, Received Pending
[2017-06-12] MEDS ORDERED: INSULIN GLARGINE SOLOSTAR 100 UNITS/ML 3 ML PEN SC SCH ×2 (17:00→21:00)
[2017-06-12 19:30] VITALS: BP 121/72; PULSE 75; O2SAT 99
[2017-06-12] MEDS: SODIUM BICARBONATE 8.4% INJ 75 MEQ in SODIUM CHLORIDE 0.45% 1000ML 1,000 ML IV SCH (19:32)
[2017-06-12] MEDS: DULOXETINE HCL 60 MG CAP PO SCH (19:38)
--- NOTE | 2017-06-12 20:59 | Nephrology Consultation ---
Nephrology Consultation Date of Consultation: Jun 12, 2017. Attending Physician: Dr Hubbard Requesting Physician: Dr Banuelos Reason for Consultation: OK & metabolic acidosis History of Present Illness 42 year old female admitted last evening w/ OK on CKD and recurrent metabolic acidosis after presenting with one week of n/v and presyncopal sx; also had R breast pain which often precedes her acute illnesses. PMH includes dm on insulin, chronic suppurative hidradenitis, HTN, active tobacco abuse, s/p colectomy for Salmonella infection, chronic loose bm; already 2 admissions this year for encephalopathy/metabolic acidosis needing acute HD. She follows w/ Dr. Everett in CKD clinic for CKD 4 w/ baseline creatinine as below and for metabolic acidosis attributed to her chronic diarrhea and to CKD4. Has been taking up to 2000 mg tylenol tid for her breast pain as well as intermittent ibuprofen prior to admission. does not follow w/ gi. off of metformin since last hospital d/c. Her renal function was at baseline on presentation but her bicarb on presentation was 9; it's up to 12 today. No ABG on presentation; pH on VBG 7.04. Past Medical/Surgical History Medical Problems: (1) Abdominal pain Status: Acute (2) Confusion Status: Acute (3) Constipation Status: Acute (4) Dehydration Status: Acute (5) Dehydration Status: Acute (6) Hyperammonemia Status: Acute (7) Pneumonia Status: Acute -DM, w/ multiple episodes of DKA most recently last month -HTN -CKD4 w/ baseline creatinine 1.7-2.2 per [facility] 04/2017 ckd clinic note; ckd attributed to dm, htn, hx heavy nsaid use -chronic metabolic acidosis multifactorial -intermittent hypercalcemia -hx salmonella infection -active tobacco abuse -obesity -severe chronic suppurative hidradenitis w/ sepsis -04/2017 admission for DKA, C diff, needed acute HD -05/2017 admission for sepsis syndrome w/o source and severe metabolic acidosis, needed acute HD -hospitalization 2013 for OK/severe acidosis -hospitalized 2012 w/ VDRF/trach, partial colectomy d/t C diff -chronic back pain Family History Diabetes mellitus Heart disease Social History Smoking Status: Current Every Day Smoker Alcohol Use: none Drug Use: none Marital Status: Housing Status: lives with family Occupation Status: employed Allergies Coded Allergies: BEE STING (Verified Allergy, Intermediate, RED, SHORT OF BREATH, 06/11/17) Medications Current Inpatient Medications Medications (Trade) Dose Ordered Sig/Yudy Route Start Time Stop Time Status Last Admin Dose Admin Sodium Bicarbonate (Sodium Bicarbonate Tab) 1,300 mg TID PO 06/12/17 08:00 07/12/17 07:59 06/12/17 13:49 1,300 MG Prochlorperazine Edisylate 5 mg/ Syringe 5 ml @ 5 mls/min Q6H PRN IV 06/11/17 19:45 07/11/17 19:44 Tramadol HCl (Ultram Tab) 25 mg Q6H PRN PO 06/11/17 19:45 07/11/17 19:44 Hydromorphone HCl (Dilaudid Inj) 0.5 mg Q3H PRN IV 06/11/17 19:45 06/25/17 19:44 Heparin Sodium (Porcine) (Heparin Sq 5000 Unit/0.5ml) 5,000 unit Q8H SQ 06/11/17 22:00 07/11/17 21:59 06/12/17 13:51 5,000 UNIT Acetaminophen (Tylenol Tab) 650 mg Q4H PRN PO 06/11/17 21:15 07/11/17 21:14 06/11/17 22:02 650 MG Glucose (Glucose 40% Gel) 15-30 GRAMS 15 GRAMS... UD PRN PO 06/11/17 21:15 07/11/17 21:14 Glucose (Glucose Chew Tab) 4-8 Tablets 4 Tabl... UD PRN PO 06/11/17 21:15 07/11/17 21:14 Dextrose (Dextrose 50% 50ML Syringe) 25-50ML OF 50% DW IV FOR... UD PRN IV 06/11/17 21:15 07/11/17 21:14 Glucagon (Glucagon Inj) 1 mg UD PRN SQ 06/11/17 21:15 07/11/17 21:14 Nicotine (Nicoderm Cq 7 Mg Patch) 1 patch QAM TD 06/12/17 08:00 07/12/17 08:59 Miscellaneous (Remove Nicoderm Patch) 1 ea HS N/A 06/12/17 21:00 07/12/17 20:59 Amlodipine Besylate (Norvasc Tab) 10 mg DAILY PO 06/12/17 08:00 07/12/17 08:59 06/12/17 08:49 10 MG Duloxetine HCl (Cymbalta Cap) 60 mg QPM PO 06/12/17 21:00 07/12/17 20:59 Pregabalin (Lyrica Cap) 50 mg TID PO 06/12/17 08:00 07/12/17 08:59 06/12/17 13:52 50 MG Pantoprazole Sodium (Protonix Tab) 40 mg QAM PO 06/12/17 08:00 07/12/17 08:59 06/12/17 08:43 40 MG Miscellaneous Information (Order Awaiting Action) 1 ea QS N/A 06/12/17 08:00 07/12/17 07:59 Propranolol HCl (Inderal La Cap) 120 mg BID PO 06/11/17 22:00 07/11/17 21:59 06/12/17 08:51 120 MG Insulin Aspart (novoLOG ASPART) SLIDING SCALE If C... ACHS SC 06/12/17 06:30 07/12/17 06:29 Sodium Chloride 1,000 ml @ 200 mls/hr Q5H IV 06/12/17 02:00 07/11/17 22:59 06/12/17 10:28 200 MLS/HR Miscellaneous Information (Consult Glycemic Management Pharmacy) 1 ea UD PRN N/A 06/12/17 14:59 07/12/17 14:58 Insulin Glargine (Lantus Solostar Pen) SEE PROTOCOL TEXT BID SC 06/12/17 17:00 07/12/17 16:59 Insulin Aspart (novoLOG ASPART) SLIDING SCALE If C... 0000,0400 SC 06/13/17 00:00 06/13/17 04:01 Home Meds and Scripts Medications Dose Route/Sig Max Daily Dose Days Date Category Dose Instructions Fish Oil ([place]-3 Fatty Acids) 1,000 Mg Cap 1,000 Mg PO BID 06/11/17 Reported Vitamin D3 (Cholecalciferol) 1,000 Unit Tab 5,000 Inter.unit PO DAILY 90 06/11/17 Reported Humalog Kwikpen (Insulin Lispro (Human)) 100 Unit/Ml Inj 20 Units SQ TIDM 06/11/17 Reported PLUS THE SLIDING SCALE Tresiba Flextouch (Insulin Degludec) 100 Unit/Ml Inj 110 Units PO DAILY 05/21/17 Reported Norvasc (Amlodipine Besylate) 10 Mg Tab 10 Mg PO DAILY 05/21/17 Reported Sodium Bicarbonate 650 Mg Tab 1,300 Mg PO TID 05/21/17 Reported Lisinopril 10 Mg Tab 10 Mg PO DAILY 30 04/26/17 Rx Ventolin Hfa (Albuterol) 200 Puffs/49846 Mcg Aers 2 Puffs INH Q4H PRN 04/17/17 Reported Lipitor (Atorvastatin Calcium) 10 Mg Tab 10 Mg PO DAILY 08/10/15 Reported Tricor (Fenofibrate) 160 Mg Tab 160 Mg PO DAILY 08/10/15 Reported Lyrica (Pregabalin) 50 Mg Cap 50 Mg PO TID 12/08/14 Reported Propranolol Hcl Er (Propranolol Hcl) 120 Mg Cap 120 Mg PO BID 02/24/14 Reported Cymbalta (Duloxetine Hcl) 60 Mg Cap 60 Mg PO QPM 02/24/14 Reported Nexium (Esomeprazole Magnesium) 40 Mg Capcr 40 Mg PO QAM 02/24/14 Reported Review of Systems Constitutional: + weakness, + fatigue, No fever Eyes: No worsening of vision ENT: No hearing loss Respiratory: No cough, No sputum, No shortness of breath Cardiac: No chest pain, No edema Abdomen: + nausea, + vomiting, No pain, No diarrhea, No constipation, No GI bleeding Musculoskeletal: + joint pain, + muscle pain, + swelling (breast pain) Female : No dysuria, No urinary frequency, No hematuria Neuro: + balance problems Psych: No depression symptoms, No anxiety Heme: No abnormal bleeding/bruising Endo: + fatigue Skin: No rash, No itch, No new/changing skin lesions Physical Exam Date Time Temp Pulse Resp B/P (MAP) Pulse Ox O2 Delivery O2 Flow Rate FiO2 06/12/17 08:18 84 137/83 (101) 84 135/85 (102) 06/12/17 08:00 Room Air 06/12/17 06:56 36.3 79 18 143/88 (106) 99 Room Air 06/11/17 23:46 36.5 90 20 159/83 99 Room Air 06/11/17 22:44 36.4 84 18 169/85 (113) 100 Room Air 06/11/17 21:10 88 18 149/93 100 Room Air 06/11/17 20:36 86 20 178/93 100 Room Air 06/11/17 18:48 78 20 144/82 97 Room Air 06/11/17 18:30 89 06/11/17 17:45 36.4 100 22 153/94 98 Room Air 24-Hour Column 06/13/17 07:59 Intake Total 2349 ml Output Total 1900 ml Balance 449 ml General Appearance: WD/WN, no apparent distress, + obese, + pertinent finding ( on ra maneuvers readily for exam) Eyes: EOMI ENT: hearing grossly normal Neck: supple Respiratory/Chest: chest non-tender, normal breath sounds, no respiratory distress, + decreased breath sounds Cardiovascular: regular rate, rhythm, no edema Abdomen: normal bowel sounds, non tender, soft Extremities: no pedal edema Neurologic/Psych: alert, normal mood/affect, oriented x 3, + pertinent finding (pizarro, fluent speech) Skin: warm/dry, no rash, + pallor, + pertinent finding (R breast non tender, no obvious lump/focal soreness; no discolored skin/nipple d/c, no gross axiallary lesion) Diagnostics Last 24 Hours Test 06/11/17 18:09 06/11/17 18:12 06/11/17 18:20 06/11/17 18:23 Bedside Glucose 168 mg/dl Creatine Kinase MB Ratio 5.3 White Blood Count 13.28 K/uL Red Blood Count 4.67 M/uL Hemoglobin 12.7 g/dL Hematocrit 39.1 % Mean Corpuscular Volume 83.7 fL Mean Corpuscular Hemoglobin 27.2 pg Mean Corpuscular Hemoglobin Concent 32.5 g/dl Platelet Count 710 K/uL Mean Platelet Volume 9.3 fL Neutrophils (%) (Auto) 68.2 % Lymphocytes (%) (Auto) 26.1 % Monocytes (%) (Auto) 4.7 % Eosinophils (%) (Auto) 0.2 % Basophils (%) (Auto) 0.5 % Neutrophils # (Auto) 9.05 K/uL Lymphocytes # (Auto) 3.47 K/uL Monocytes # (Auto) 0.63 K/uL Eosinophils # (Auto) 0.03 K/uL Basophils # (Auto) 0.06 K/uL RDW Standard Deviation 55.4 fL RDW Coefficient of Variation 18.1 % Immature Granulocyte % (Auto) 0.3 % Immature Granulocyte # (Auto) 0.04 K/uL Prothrombin Time 10.4 SECONDS Prothromb Time International Ratio 1.0 Activated Partial Thromboplast Time 38.5 SECONDS Partial Thromboplastin Ratio 1.5 Sodium Level 132 mmol/L Potassium Level 4.7 mmol/L Chloride Level 107 mmol/L Carbon Dioxide Level 9 mmol/L Anion Gap 16.0 mmol/L Blood Urea Nitrogen 49 mg/dl Creatinine 2.69 mg/dl Est Creatinine Clear Calc Drug Dose 26.6 ml/min Estimated GFR () 24.0 Estimated GFR (Non- 20.7 BUN/Creatinine Ratio 18.1 Random Glucose 173 mg/dl Lactic Acid Level 0.6 mmol/L Calcium Level 11.0 mg/dl Magnesium Level 2.4 mg/dl Total Bilirubin 0.3 mg/dl Aspartate Amino Transf (AST/SGOT) 9 U/L Alanine Aminotransferase (ALT/SGPT) 18 U/L Alkaline Phosphatase 80 U/L Total Creatine Kinase 38 U/L Creatine Kinase MB 2.0 ng/ml Troponin I < 0.015 ng/ml Total Protein 9.3 gm/dl Albumin 4.7 gm/dl Globulin 4.6 gm/dl Albumin/Globulin Ratio 1.0 Lipase 1483 U/L Urine Color YELLOW Urine Appearance CLOUDY Urine pH 5.0 Urine Specific [place] 1.031 Urine Protein 2+ Urine Glucose (UA) NEG Urine Ketones NEG Urine Occult Blood NEG Urine Nitrite NEG Urine Bilirubin NEG Urine Urobilinogen NEG Urine Leukocyte Esterase NEG Urine WBC (Auto) 1-5 /hpf Urine RBC (Auto) 0-4 /hpf Urine Hyaline Casts (Auto) 1-5 /lpf Urine Epithelial Cells (Auto) >30 /lpf Urine Bacteria (Auto) NEG Urine Test NEG Test 06/11/17 20:01 06/11/17 20:02 06/11/17 20:39 06/11/17 21:31 Sodium Level 134 mmol/L Potassium Level 4.5 mmol/L Chloride Level 110 mmol/L Carbon Dioxide Level 11 mmol/L Anion Gap 13.0 mmol/L Blood Urea Nitrogen 44 mg/dl Creatinine 2.36 mg/dl Est Creatinine Clear Calc Drug Dose 30.3 ml/min Estimated GFR () 28.1 Estimated GFR (Non- 24.2 BUN/Creatinine Ratio 18.7 Random Glucose 156 mg/dl Calcium Level 9.7 mg/dl Phosphorus Level 5.0 mg/dl Procalcitonin 0.31 ng/ml Parathyroid Hormone (Intact) 46.6 pg/mL Ethyl Alcohol mg/dL < 3.0 mg/dl Venous Blood pH 7.04 Venous Blood Partial Pressure CO2 38 mmHg Venous Blood Partial Pressure O2 33 mmHg Venous Blood HCO3 10 mmol/L Venous Blood Oxygen Saturation < 60.0 % Venous Blood Base Excess -19.9 mEq/L Bedside Glucose 157 mg/dl Total Creatine Kinase 32 U/L Acetaminophen Level 23 ug/ml Test 06/11/17 22:10 06/12/17 00:13 06/12/17 05:13 06/12/17 08:39 Bedside Glucose 134 mg/dl 94 mg/dl Sodium Level 139 mmol/L 141 mmol/L Potassium Level 3.9 mmol/L 3.8 mmol/L Chloride Level 115 mmol/L 117 mmol/L Carbon Dioxide Level 11 mmol/L 12 mmol/L Anion Gap 13.0 mmol/L 12.0 mmol/L Blood Urea Nitrogen 41 mg/dl 38 mg/dl Creatinine 1.84 mg/dl 1.67 mg/dl Est Creatinine Clear Calc Drug Dose 39.7 ml/min 43.8 ml/min Estimated GFR () 38.0 42.7 Estimated GFR (Non- 32.8 36.8 BUN/Creatinine Ratio 22.0 22.6 Random Glucose 98 mg/dl 81 mg/dl Calcium Level 9.0 mg/dl 8.6 mg/dl White Blood Count 11.07 K/uL Red Blood Count 3.84 M/uL Hemoglobin 10.3 g/dL Hematocrit 32.4 % Mean Corpuscular Volume 84.4 fL Mean Corpuscular Hemoglobin 26.8 pg Mean Corpuscular Hemoglobin Concent 31.8 g/dl Platelet Count 393 K/uL Mean Platelet Volume 8.9 fL Neutrophils (%) (Auto) 73.5 % Lymphocytes (%) (Auto) 19.8 % Monocytes (%) (Auto) 4.5 % Eosinophils (%) (Auto) 1.1 % Basophils (%) (Auto) 0.4 % Neutrophils # (Auto) 8.14 K/uL Lymphocytes # (Auto) 2.19 K/uL Monocytes # (Auto) 0.50 K/uL Eosinophils # (Auto) 0.12 K/uL Basophils # (Auto) 0.04 K/uL RDW Standard Deviation 56.7 fL RDW Coefficient of Variation 18.2 % Immature Granulocyte % (Auto) 0.7 % Immature Granulocyte # (Auto) 0.08 K/uL Lipase 755 U/L Test 06/12/17 11:12 Bedside Glucose 112 mg/dl Diagnostic Radiology: ct abd/pelvis 06/11 -symmetric kidneys w/ single small nonobstructing calculus on each kidney; no hydronephrosis -no acute inflammatory/infectious abdominal findings -no bowel obstruction -hepatomegaly and hepatosteatosis CXR + ABD XR > no active chest dz/ nonobstructed bowel gas pattern Assessment & Plan 42 y/o F w/ DM, obesity, CKD 4, HTN, active tobacco abuse, chronic loose bm after partial colectomy for C diff admitted yestderday for OK on CKD w/ worsened metabolic acidosis in the setting of GI illness presumed viral and w/ recent hgbA1c 13.8%. challenging acidosis case w/ many moving parts. OK on CKD4 Baseline creatinine is 1.6-2.2 w/ presenting creatinine 2.7; improving w/ rehydration on NS at 100 mL hourly after multiple L boluses and more aggressive rates. some ibuprofen use prior to presentation. admission urine not consistent with infection or GN but consistent with known 1gm daily proteinuria and dehydration -daily bmp -cont to in house counsel on nsaid avoidance Chronic metabolic acidosis, now hyperchloremic and refractory to bicarb therapy iron levels normal; off of metformin; no shalonda bowel complaints, only vomiting prior to presentation. no elevated tylenol or etoh levels on arrival; no suicidal ideations -on tid sodium bicarb supplements w/ presenting bicarbonate of 9 and improved now to 12; chloride has increased from 107 > 117 >changed IVF to 1/2 NS w/ 75 mEq/L sodium bicarb -in am w/ next labs will get abg -will find out in am about ordering pyroglutamic acid levels (tylenol), D lactic acid levels (short gut) -ASA, tylenol levels in am Uncontrolled DM -per primary service > BG controlled here s/p colectomy ? malabsorption >> no GI f/u in epic Appreciate consult; will follow with you
[2017-06-12 23:19] VITALS: BP 126/74; PULSE 74; TEMP 36.6; O2SAT 99
[2017-06-13] MEDS: INSULIN ASPART 100 UNITS/ML 3 ML PEN SC SCH ×5 (04:00→20:38)
[2017-06-13] MEDS: SODIUM BICARBONATE 8.4% INJ 75 MEQ in SODIUM CHLORIDE 0.45% 1000ML 1,000 ML IV SCH ×2 (05:28→15:02)
[2017-06-13] MEDS: HEPARIN SOD 5000 UNIT/0.5 ML CARP SQ SCH ×2 (05:30→13:14)
[2017-06-13 06:52] VITALS: BP 156/80; PULSE 71; TEMP 36.7; O2SAT 100
[2017-06-13] MEDS: PREGABALIN 50 MG CAP PO SCH ×3 (07:58→19:48)
[2017-06-13] MEDS: PANTOprazole SOD 40 MG TAB PO SCH (07:59)
[2017-06-13] MEDS: SODIUM BICARBONATE 650 MG TAB PO SCH ×3 (07:59→19:48)
[2017-06-13] MEDS: AMLODIPINE BESYLATE 5 MG TAB PO SCH (07:59)
[2017-06-13] MEDS: NICOTINE 7 MG/24 HR TDSY TD SCH (07:59)
[2017-06-13] MEDS: PROPRANOLOL HCL 60 MG LA CAP PO SCH ×2 (07:59→19:48)
[2017-06-13 08:23] LABS: ALBUMIN 3.2 gm/dl (3.4-5.0); CALCIUM 8.7 mg/dl (8.5-10.1); CREATININE 0.88 mg/dl (0.60-1.20); POTASSIUM 3.1 mmol/L (3.5-5.1)
[2017-06-13 08:26] LABS: PHOSPHORUS 2.2 mg/dl (2.5-4.9); TOTAL PROTEIN 6.2 gm/dl (6.4-8.2)
[2017-06-13] MEDS: INSULIN GLARGINE SOLOSTAR 100 UNITS/ML 3 ML PEN SC SCH ×2 (08:50→20:38)
--- NOTE | 2017-06-13 14:28 | Pharmacy Progress Note ---
Pharmacy Glycemic Short Note 2 Date of Service Jun 13, 2017. OUTPATIENT ANTIDIABETIC REGIMEN: * Tresiba 110 units daily * Humalog 20 units with meals * TDD = 170 units * A1c = 13.8 % 04/17/17 * Note: confirmed with previous records that patient is a type 2 diabetic, diagnosed in 2013 ASSESSMENT: 06/13/17 * Ms. Hernandez received 19 units of insulin yesterday with BSGs ranging from 81- 159 mg/dL * Her Lantus ended up being held last evening b/c of lower BSGs * As of today, her SCr has improved even further (lower than her reported baseline) and we are finally seeing a BSG > 120 * Will resume Lantus today - I have increased the scale further with tonight's dose as I expect her needs to increase drastically * CR loosened just slightly this AM - will continue for now since basal dose being increased * Will add a single overnight accucheck should her BSGs become significantly elevated 06/12/17 * 42 y/o female with reported type 1 diabetes (unsure if this is the case with her high outpatient doses), admitted with ARF * She typically requires 170 units of insulin/day as an outpatient but has only received 5 units total since last evening due to ARF and being NPO * Her SCr is now back to baseline and her diet is being advanced, so I expect her insulin requirements to increase quickly * From her last admission, she was requiring ~120 units of insulin/day * Lantus 35 units BID * Novolog w/ CF 10, CR 3 * Will plan to resume this regimen, starting the Lantus with dinner since she is behind in basal dosing, and add overnight accuchecks if necessary * Will also order a scale for the Lantus should her BSGs remain on the lower side PLAN FOR INPATIENT GLYCEMIC CONTROL: * Basal insulin * Lantus SQ BID per scale * 5 units for BSG < 110 * 15 units for BSG 110-150 * 25 units for BSG > 150 * Bolus insulin * NovoLog per scale ACHS + 0200 * Goal Range: Low 110 mg/dL - High 150 mg/dL * Correction Factor: 10 mg/dL/unit * Nutritional / Prandial insulin per carb ratio of 1 unit per 4 grams CHO consumed
[2017-06-13 15:52] VITALS: BP 129/76; PULSE 69; TEMP 36.7; O2SAT 98
[2017-06-13] MEDS ORDERED: POTASSIUM CHLORIDE 10 MEQ TABCR PO STA (17:38)
--- NOTE | 2017-06-13 17:41 | Progress Note ---
Internal Med Progress Note Date of Service: Jun 13, 2017. Provider Documentation: SUBJECTIVE: sitting up on chair , comfortable There is no new complaint, no nausea vomiting Tolerating diet No fever or chills OBJECTIVE: Vital Signs-as noted below Exam: General-Pleasant no sign of any distress Eyes-sclera nonicteric, PERRLA/EOMI ENT-moist oral mucosa Neck-no JVD, no carotid bruit, no thyromegaly Lungs-clear to auscultate no wheezes or rales Heart-regular S1-S2 Abdomen-soft nontender, bowel sounds active Extremities- Neuro-alert awake oriented 3, no focal neurological deficit Lab data as noted below. ASSESSMENT & PLAN: 1. Acute kidney injury/CKD stage IV -Possibly due to diabetic nephropathy Baseline creatinine 1.6 2.2 Presented with elevated creatinine of 2.69 Possible secondary to GI loss, reports of nausea vomiting poor p.o. intake for last few days Appreciate input from nephrology Creatinine improved to 0.88 today with IV hydration Continue to monitor labs Avoid NSAIDs, contrast studies. 2. Type 2 diabetes/poorly controlled Hemoglobin A1c 13 on 04/17/2017 Appreciate pharmacy input for glycemic management Patient is continued with basal Lantus, insulin sliding scale. 3. Chronic metabolic acidosis/hyperchloremia -Appreciate input from nephrology Dr. Fiore Bicarb was 9 on presentation, Started with IV bicarb half-normal saline with 75 Meq per liter sodium bicarb -level improved to 14 today -Continue to follow labs 4. Hypokalemia: -Possibly due to IV bicarbonate drip -Ordered for oral potassium replacement. -Follow daily labs 5. Elevated lipase CT abdomen pelvis without contrast: No evidence of pancreatitis Lipase level: 1483 improved to 755, 1027 today Does not have any GI symptoms Continue with low-fat diet GI eval requested. 6. Hypertension: On amlodipine and propranolol. CODE STATUS: Full code DVT PROPHYLAXIS SCD and teds Ambulate DISPOSITION Expected to be discharged home when medically stable Medicine follow-up with Dr. Garsia Vital Signs: Date Time Temp Pulse Resp B/P (MAP) Pulse Ox O2 Delivery O2 Flow Rate FiO2 06/13/17 16:00 Room Air 06/13/17 15:52 36.7 69 18 129/76 (93) 98 Room Air 06/13/17 08:00 Room Air 06/13/17 06:52 36.7 71 20 156/80 (105) 100 Room Air 06/13/17 00:00 Room Air 06/12/17 23:19 36.6 74 18 126/74 (91) 99 Room Air 06/12/17 20:00 Room Air 06/12/17 19:30 75 121/72 (88) 99 Room Air Lab Results: Results Past 24 Hours Test 06/12/17 20:33 06/12/17 23:48 06/13/17 04:15 06/13/17 07:20 Range/Units Bedside Glucose 94 81 92 70-90 mg/dl Arterial Blood pH 7.28 7.35-7.45 Arterial Blood Partial Pressure CO2 32 35-46 mmHg Arterial Blood Partial Pressure O2 92 80-95 mm/Hg Arterial Blood HCO3 14 19-24 mmol/L Arterial Blood Oxygen Saturation 95.4 90-95 % Arterial Blood Base Excess -11.4 -9-1.8 mEq/L Arterial Blood Gas Delivery ROOM AIR Mickey Test POS POS Test 06/13/17 07:29 06/13/17 07:33 06/13/17 07:54 06/13/17 11:30 Range/Units Lactic Acid Level 0.5 0.4-2.0 mmol/L Sodium Level 140 136-145 mmol/L Potassium Level 3.1 3.5-5.1 mmol/L Chloride Level 116 98-107 mmol/L Carbon Dioxide Level 14 21-32 mmol/L Anion Gap 10.0 3-11 mmol/L Blood Urea Nitrogen 24 7-18 mg/dl Creatinine 0.88 0.60-1.20 mg/dl Est Creatinine Clear Calc Drug Dose 83.0 ml/min Estimated GFR () 92.6 Estimated GFR (Non- 79.9 BUN/Creatinine Ratio 27.4 10-20 Random Glucose 81 70-99 mg/dl Calcium Level 8.7 8.5-10.1 mg/dl Ionized Calcium 1.27 1.12-1.32 mmol/l Phosphorus Level 2.2 2.5-4.9 mg/dl Magnesium Level 1.9 1.8-2.4 mg/dl Total Bilirubin 0.2 0.2-1 mg/dl Aspartate Amino Transf (AST/SGOT) 8 15-37 U/L Alanine Aminotransferase (ALT/SGPT) 13 12-78 U/L Alkaline Phosphatase 49 45-117 U/L Total Creatine Kinase 28 26-192 U/L Total Protein 6.2 6.4-8.2 gm/dl Albumin 3.2 3.4-5.0 gm/dl Globulin 3.0 2.5-4.0 gm/dl Albumin/Globulin Ratio 1.1 0.9-2 Lipase 1027 73-393 U/L Bedside Glucose 92 159 70-90 mg/dl Test 06/13/17 16:28 Range/Units Bedside Glucose 110 70-90 mg/dl
--- NOTE | 2017-06-13 18:49 | Nephrology Progress Note ---
Nephrology Progress Note Date of Service: Jun 13, 2017. Subjective no further breast pain; no diarrhea; no n/v, no weakness/presyncopal sx Objective Date Time Temp Pulse Resp B/P (MAP) Pulse Ox O2 Delivery O2 Flow Rate FiO2 06/13/17 16:00 Room Air 06/13/17 15:52 36.7 69 18 129/76 (93) 98 Room Air 06/13/17 08:00 Room Air 06/13/17 06:52 36.7 71 20 156/80 (105) 100 Room Air 06/13/17 00:00 Room Air 06/12/17 23:19 36.6 74 18 126/74 (91) 99 Room Air 06/12/17 20:00 Room Air 06/12/17 19:30 75 121/72 (88) 99 Room Air Physical Exam: General Appearance: WD/WN, no apparent distress, + obese, + pertinent finding ( on ra maneuvers readily for exam) up in chair Eyes: EOMI, dilated pupils BL ENT: hearing grossly normal Neck: supple Respiratory/Chest: chest non-tender, normal breath sounds, no respiratory distress, + decreased breath sounds Cardiovascular: regular rate, rhythm, no edema Abdomen: normal bowel sounds, non tender, soft Extremities: no pedal edema Neurologic/Psych: alert, normal mood/affect, oriented x 3, + pertinent finding (pizarro, fluent speech) Skin: warm/dry, no rash, + pallor Current Inpatient Medications Medications (Trade) Dose Ordered Sig/Yudy Route Start Time Stop Time Status Last Admin Dose Admin Sodium Bicarbonate (Sodium Bicarbonate Tab) 1,300 mg TID PO 06/12/17 08:00 07/12/17 07:59 06/13/17 13:12 1,300 MG Prochlorperazine Edisylate 5 mg/ Syringe 5 ml @ 5 mls/min Q6H PRN IV 06/11/17 19:45 07/11/17 19:44 Tramadol HCl (Ultram Tab) 25 mg Q6H PRN PO 06/11/17 19:45 07/11/17 19:44 Hydromorphone HCl (Dilaudid Inj) 0.5 mg Q3H PRN IV 06/11/17 19:45 06/25/17 19:44 Heparin Sodium (Porcine) (Heparin Sq 5000 Unit/0.5ml) 5,000 unit Q8H SQ 06/11/17 22:00 07/11/17 21:59 Future Hold 06/13/17 13:14 5,000 UNIT Acetaminophen (Tylenol Tab) 650 mg Q4H PRN PO 06/11/17 21:15 07/11/17 21:14 06/11/17 22:02 650 MG Glucose (Glucose 40% Gel) 15-30 GRAMS 15 GRAMS... UD PRN PO 06/11/17 21:15 07/11/17 21:14 Glucose (Glucose Chew Tab) 4-8 Tablets 4 Tabl... UD PRN PO 06/11/17 21:15 07/11/17 21:14 Dextrose (Dextrose 50% 50ML Syringe) 25-50ML OF 50% DW IV FOR... UD PRN IV 06/11/17 21:15 07/11/17 21:14 Glucagon (Glucagon Inj) 1 mg UD PRN SQ 06/11/17 21:15 07/11/17 21:14 Nicotine (Nicoderm Cq 7 Mg Patch) 1 patch QAM TD 06/12/17 08:00 07/12/17 08:59 Miscellaneous (Remove Nicoderm Patch) 1 ea HS N/A 06/12/17 21:00 07/12/17 20:59 Amlodipine Besylate (Norvasc Tab) 10 mg DAILY PO 06/12/17 08:00 07/12/17 08:59 06/13/17 07:59 10 MG Duloxetine HCl (Cymbalta Cap) 60 mg QPM PO 06/12/17 21:00 07/12/17 20:59 06/12/17 19:38 60 MG Pregabalin (Lyrica Cap) 50 mg TID PO 06/12/17 08:00 07/12/17 08:59 06/13/17 13:15 50 MG Pantoprazole Sodium (Protonix Tab) 40 mg QAM PO 06/12/17 08:00 07/12/17 08:59 06/13/17 07:59 40 MG Miscellaneous Information (Order Awaiting Action) 1 ea QS N/A 06/12/17 08:00 07/12/17 07:59 Propranolol HCl (Inderal La Cap) 120 mg BID PO 06/11/17 22:00 07/11/17 21:59 3/6/18 07:59 120 MG Insulin Aspart (novoLOG ASPART) SLIDING SCALE If C... ACHS SC 06/12/17 06:30 07/12/17 06:29 06/13/17 18:24 16 UNITS Miscellaneous Information (Consult Glycemic Management Pharmacy) 1 ea UD PRN N/A 06/12/17 14:59 07/12/17 14:58 Sodium Bicarbonate 75 meq/Sodium Chloride 1,075 ml @ 100 mls/hr [id number] IV 06/12/17 18:45 07/12/17 18:44 06/13/17 15:02 100 MLS/HR Insulin Glargine (Lantus Solostar Pen) SEE PROTOCOL TEXT BID SC 06/13/17 08:00 07/13/17 07:59 06/13/17 08:50 5 UNITS Insulin Aspart (novoLOG ASPART) SLIDING SCALE If C... 0200 ONCE SC 06/14/17 02:00 06/14/17 02:01 Last 24 Hours Test 06/12/17 20:33 06/12/17 23:48 06/13/17 04:15 06/13/17 07:20 Bedside Glucose 94 mg/dl 81 mg/dl 92 mg/dl Arterial Blood pH 7.28 Arterial Blood Partial Pressure CO2 32 mmHg Arterial Blood Partial Pressure O2 92 mm/Hg Arterial Blood HCO3 14 mmol/L Arterial Blood Oxygen Saturation 95.4 % Arterial Blood Base Excess -11.4 mEq/L Arterial Blood Gas Delivery ROOM AIR Mickey Test POS Test 06/13/17 07:29 06/13/17 07:33 06/13/17 07:54 06/13/17 11:30 Lactic Acid Level 0.5 mmol/L Sodium Level 140 mmol/L Potassium Level 3.1 mmol/L Chloride Level 116 mmol/L Carbon Dioxide Level 14 mmol/L Anion Gap 10.0 mmol/L Blood Urea Nitrogen 24 mg/dl Creatinine 0.88 mg/dl Est Creatinine Clear Calc Drug Dose 83.0 ml/min Estimated GFR () 92.6 Estimated GFR (Non- 79.9 BUN/Creatinine Ratio 27.4 Random Glucose 81 mg/dl Calcium Level 8.7 mg/dl Ionized Calcium 1.27 mmol/l Phosphorus Level 2.2 mg/dl Magnesium Level 1.9 mg/dl Total Bilirubin 0.2 mg/dl Aspartate Amino Transf (AST/SGOT) 8 U/L Alanine Aminotransferase (ALT/SGPT) 13 U/L Alkaline Phosphatase 49 U/L Total Creatine Kinase 28 U/L Total Protein 6.2 gm/dl Albumin 3.2 gm/dl Globulin 3.0 gm/dl Albumin/Globulin Ratio 1.1 Lipase 1027 U/L Bedside Glucose 92 mg/dl 159 mg/dl Test 06/13/17 16:28 Bedside Glucose 110 mg/dl Assessment & Plan 42 y/o F w/ DM, obesity, CKD 4, HTN, active tobacco abuse, chronic loose bm after partial colectomy for C diff admitted yestderday for OK on CKD w/ worsened metabolic acidosis in the setting of GI illness presumed viral and w/ recent hgbA1c 13.8%. challenging acidosis case w/ many moving parts. OK on CKD >> improved to better than baseline, suggesting in part prerenal component even to her ckd Baseline creatinine is 1.6-2.2 w/ presenting creatinine 2.7; improving w/ rehydration on NS at 100 mL hourly after multiple L boluses and more aggressive rates. some ibuprofen use prior to presentation. admission urine not consistent with infection or GN but consistent with known 1gm daily proteinuria and dehydration -daily bmp Chronic metabolic acidosis, now less chloremic and rather refractory to bicarb therapy iron levels normal; off of metformin; no shalonda bowel complaints, only vomiting prior to presentation. no elevated tylenol or etoh levels on arrival; no suicidal ideations -on tid sodium bicarb supplements w/ presenting bicarbonate of 9 and improved now to 14; chloride has increased from 107 > 116 >cont 1/2 NS w/ 75 mEq/L sodium bicarb -had 30 mEq K po >> will give another 40 mEq po x 1 -ordered urine anions/chemistries -will find out in am about ordering pyroglutamic acid levels (tylenol), D lactic acid levels (short gut) -ASA, tylenol levels reassuring Uncontrolled DM -per primary service > BG controlled here s/p colectomy ? malabsorption >> no GI f/u in [facility] Appreciate consult; will follow with you
[2017-06-13] MEDS ORDERED: POTASSIUM CHLORIDE 10 MEQ TABCR PO ONE (19:00)
[2017-06-13] MEDS: DULOXETINE HCL 60 MG CAP PO SCH (19:48)
[2017-06-13 19:55] VITALS: BP 157/79; PULSE 67
[2017-06-13 23:33] VITALS: BP 115/69; PULSE 72; TEMP 36.6; O2SAT 98
[2017-06-14] MEDS: SODIUM BICARBONATE 8.4% INJ 75 MEQ in SODIUM CHLORIDE 0.45% 1000ML 1,000 ML IV SCH ×2 (01:19→12:41)
[2017-06-14] MEDS ORDERED: INSULIN ASPART 100 UNITS/ML 3 ML PEN SC ONE (02:00)
[2017-06-14 02:18] LABS: CREATININE RANDOM URINE 31.8 mg/dl; POTASSIUM RANDOM URINE 9.1 mEq/L
[2017-06-14 07:31] VITALS: BP 155/74; PULSE 71; TEMP 36.7; O2SAT 97
[2017-06-14] MEDS: NICOTINE 7 MG/24 HR TDSY TD SCH (07:41)
[2017-06-14] MEDS: PREGABALIN 50 MG CAP PO SCH ×3 (07:42→20:16)
[2017-06-14] MEDS: SODIUM BICARBONATE 650 MG TAB PO SCH ×3 (07:43→20:16)
[2017-06-14] MEDS: AMLODIPINE BESYLATE 5 MG TAB PO SCH (07:43)
[2017-06-14] MEDS: PANTOprazole SOD 40 MG TAB PO SCH (07:43)
[2017-06-14] MEDS: PROPRANOLOL HCL 60 MG LA CAP PO SCH ×2 (07:43→20:16)
[2017-06-14 07:51] LABS: CALCIUM 9.5 mg/dl (8.5-10.1); CREATININE 0.71 mg/dl (0.60-1.20); POTASSIUM 3.2 mmol/L (3.5-5.1)
[2017-06-14] MEDS: INSULIN ASPART 100 UNITS/ML 3 ML PEN SC SCH ×4 (08:19→20:14)
[2017-06-14] MEDS: INSULIN GLARGINE SOLOSTAR 100 UNITS/ML 3 ML PEN SC SCH ×2 (08:19→20:19)
--- NOTE | 2017-06-14 09:47 | Gastrointestinal Consultation ---
Gastrointestinal Consultation Date of Consultation: Jun 14, 2017 Attending Physician: Rachel Consulting Physician: Alka Reason for Consultation: elevated lipase History of Present Illness Patient is a 42 year old female w/ history of c.diff s/p partial colectomy, DM, DKA, CKD and others listed below who presented through the ED for nausea, vomiting abd pain w/ concerns for DKA on 06/11/17. GI was asked to evaluate the pt for lipase. Pt was seen and evaluated, chart reviewed. Pt notes since April she has had post-prandial upper abdominal pain, nausea, vomiting. Prior to April, she denied any chronic abdominal complaints. She can recall post- prandial pain following cracker barrel and pizza within the last week. 30 minutes after eating she notes upper abdominal pressure, sharp pain. Constant, radiated to RUQ and to her back. Associated w/ nausea and intermittent episodes of emesis. When she vomits, this is undigested food and bile. No report of coffee ground emesis or hematemesis. She also has chronic nausea. She notes decreased appetite and early satiety. No weight loss. Denies fever, chills, CP, SOB. Today, she notes she feels well. She is tolerating diet without abd pain, nausea, vomiting. Her LFTs are normal. Her lipase has been elevated. She has gallstones. No CT evidence of acute cholecystitis or pancreatitis She is tolerating diet NSAIDs: was using frequently CT ABD/Pelvis 06/11/17: There are no acute infectious or inflammatory findings in the abdomen or pelvis. Cholelithiasis. There are postoperative changes from subtotal colectomy with ileocolic anastomosis. No bowel obstruction is seen. There are small bilateral nonobstructing renal calculi. Hepatomegaly and hepatic steatosis. ABD US 05/12/17: Mildly hyperechogenic parenchyma, although the right hemidiaphragm remains visible, likely indicating mild steatosis. No sonographic evidence of hepatic mass. Main portal vein patent with normal directional flow. Biliary: No intrahepatic biliary ductal dilatation. Common bile duct measures up to 6 mm in diameter. Gallbladder: Gallstones without evidence of gallbladder distention, wall thickening, or pericholecystic fluid or inflammatory change. EGD 11/14/07: normal Past Medical/Surgical History Medical Problems: (1) Abdominal pain Status: Acute (2) Confusion Status: Acute (3) Constipation Status: Acute (4) Dehydration Status: Acute (5) Dehydration Status: Acute (6) Hyperammonemia Status: Acute (7) Pneumonia Status: Acute Past Medical History: DM, DKA, CKD-4, HTN, GERD, migraine, metabolic acidosis, hx c.diff, hx salmonella, hx CAP, hx respiratory failure requiring intubation anemia, Past Surgical History: ex lap, total colectomy w/ end ileostomy 09/19, ileostomy reversal in 03/21, breast surgery, hx tracheostomy, back surgery Family History Diabetes mellitus Heart disease Social History Smoking Status: Current Every Day Smoker Alcohol Use: none Drug Use: none Marital Status: Housing Status: lives with family Occupation Status: employed Allergies Coded Allergies: BEE STING (Verified Allergy, Intermediate, RED, SHORT OF BREATH, 06/11/17) Current Medications Home Meds and Scripts Medications Dose Route/Sig Max Daily Dose Days Date Category Dose Instructions Fish Oil (Hiller-3 Fatty Acids) 1,000 Mg Cap 1,000 Mg PO BID 06/11/17 Reported Vitamin D3 (Cholecalciferol) 1,000 Unit Tab 5,000 Inter.unit PO DAILY 90 06/11/17 Reported Humalog Kwikpen (Insulin Lispro (Human)) 100 Unit/Ml Inj 20 Units SQ TIDM 06/11/17 Reported PLUS THE SLIDING SCALE Tresiba Flextouch (Insulin Degludec) 100 Unit/Ml Inj 110 Units PO DAILY 05/21/17 Reported Norvasc (Amlodipine Besylate) 10 Mg Tab 10 Mg PO DAILY 05/21/17 Reported Sodium Bicarbonate 650 Mg Tab 1,300 Mg PO TID 05/21/17 Reported Lisinopril 10 Mg Tab 10 Mg PO DAILY 30 04/26/17 Rx Ventolin Hfa (Albuterol) 200 Puffs/[id number] Mcg Aers 2 Puffs INH Q4H PRN 04/17/17 Reported Lipitor (Atorvastatin Calcium) 10 Mg Tab 10 Mg PO DAILY 08/10/15 Reported Tricor (Fenofibrate) 160 Mg Tab 160 Mg PO DAILY 08/10/15 Reported Lyrica (Pregabalin) 50 Mg Cap 50 Mg PO TID 12/08/14 Reported Propranolol Hcl Er (Propranolol Hcl) 120 Mg Cap 120 Mg PO BID 02/24/14 Reported Cymbalta (Duloxetine Hcl) 60 Mg Cap 60 Mg PO QPM 02/24/14 Reported Nexium (Esomeprazole Magnesium) 40 Mg Capcr 40 Mg PO QAM 02/24/14 Reported Review of Systems Constitutional: No fever, No chills, No weakness, No fatigue ENT: No hearing loss, No trouble swallowing, No pain on swallowing Respiratory: No cough, No shortness of breath Cardiac: No chest pain, No edema Abdomen: No pain, No nausea, No vomiting, No diarrhea, No jaundice, No dark urine Endo: No fatigue Skin: No rash, No itch, No jaundice Physical Exam Date Time Temp Pulse Resp B/P (MAP) Pulse Ox O2 Delivery O2 Flow Rate FiO2 06/14/17 08:00 Room Air 06/14/17 07:31 36.7 71 20 155/74 (101) 97 Room Air 06/14/17 00:02 Room Air 06/13/17 23:33 36.6 72 20 115/69 (84) 98 Room Air 06/13/17 20:14 Room Air 06/13/17 19:55 67 157/79 (105) 06/13/17 16:00 Room Air 06/13/17 15:52 36.7 69 18 129/76 (93) 98 Room Air General Appearance: no apparent distress Eyes: PERRL ENT: hearing grossly normal Neck: no adenopathy, trachea midline Respiratory/Chest: lungs clear, normal breath sounds, no respiratory distress, no accessory muscle use Cardiovascular: regular rate, rhythm, no edema, no gallop, no JVD Abdomen: normal bowel sounds, non tender, soft, no organomegaly Neurologic/Psych: alert, normal mood/affect, oriented x 3 Skin: normal color, no jaundice, warm/dry, no rash Laboratory Results Last 24 Hours Test 06/13/17 11:30 06/13/17 16:28 06/13/17 20:26 06/14/17 01:22 Bedside Glucose 159 mg/dl 110 mg/dl 143 mg/dl 104 mg/dl Test 06/14/17 01:30 06/14/17 06:37 06/14/17 07:41 Urine Random Creatinine 31.8 mg/dl Urine Random Sodium 64 mEq/L Urine Random Potassium 9.1 mEq/L Urine Random Chloride 63 mEq/L Sodium Level 140 mmol/L Potassium Level 3.2 mmol/L Chloride Level 113 mmol/L Carbon Dioxide Level 19 mmol/L Anion Gap 8.0 mmol/L Blood Urea Nitrogen 18 mg/dl Creatinine 0.71 mg/dl Est Creatinine Clear Calc Drug Dose 102.8 ml/min Estimated GFR () 120.1 Estimated GFR (Non- 103.6 BUN/Creatinine Ratio 25.1 Random Glucose 107 mg/dl Calcium Level 9.5 mg/dl Magnesium Level 1.9 mg/dl Lipase 598 U/L Bedside Glucose 119 mg/dl Impression Patient is a 42 year old female w/ history of c.diff s/p total colectomy w/ end ileostomy w/ reversal in 2011, DM w/ history of DKA x 2 in May who presented to [facility] ED for concerns of DKA w/ nausea, vomiting abdominal pain. On arrival lipase was elevated 1500, imaging with gallstones but no CT evidence of pancreatitis. She has been tolerating diet since admission w/o abdominal pain, nausea or vomiting. She has had post prandial upper abd pain, nausea, vomiting since April. Her lipase may be acutely elevated due to passing gallstones or GB sludge, she is no longer symptomatic and has normal LFTs. Biliary colic vs gastritis vs gastroparesis vs other Plan - Low fat diet as tolerated - Anti-emetics PRN - Analgesia PRN - IP vs OP EGD - GES - Suggest general surgery evaluation for gallstones, biliary colic w/ history of suspected gallstone pancreatitis - Please call with any questions or concerns. Thank you. Attg add: I interviewed and examined pt, reviewed chart and labs. Pt with DM and recent admission in Apr for DKA. She has a h/o chronically elevated lipase , dating back to 2013, with only mild intermittent LFT elevation; she has had little abd imaing in [facility], with prior CTs without evdidence of pancreatitis. She now reports recent onset of post prandial abd pain, with uls showing stones. I don't think that she has biliary pancreatitis - her long h/o lipase elevation and lack of LFT elevation is more suggestive of benign cause of enzyme elevation, rather than intermittent biliary obstruction. Her recent pain may be from DM neuropathy, dysmotiility, or stone disease. WIll plan EGD tomorrow, and further w/u as above.
--- NOTE | 2017-06-14 13:10 | Pharmacy Progress Note ---
Pharmacy Glycemic Short Note 2 Date of Service Jun 14, 2017. OUTPATIENT ANTIDIABETIC REGIMEN: * Tresiba 110 units daily * Humalog 20 units with meals * TDD = 170 units * A1c = 13.8 % 04/17/17 * Note: confirmed with previous records that patient is a type 2 diabetic, diagnosed in 2013 ASSESSMENT: 06/14/17 * Ms. Hernandez received 60 units of insulin of insulin yesterday with BSGs ranging from 104-159 mg/dL * SCr remains stable and po intake has increased * At this point, BSGs look great but need to work back to 50/50 split with basal /bolus dosing 06/13/17 * Ms. Hernandez received 19 units of insulin yesterday with BSGs ranging from 81- 159 mg/dL * Her Lantus ended up being held last evening b/c of lower BSGs * As of today, her SCr has improved even further (lower than her reported baseline) and we are finally seeing a BSG > 120 * Will resume Lantus today - I have increased the scale further with tonight's dose as I expect her needs to increase drastically * CR loosened just slightly this AM - will continue for now since basal dose being increased * Will add a single overnight accucheck should her BSGs become significantly elevated 06/12/17 * 42 y/o female with reported type 1 diabetes (unsure if this is the case with her high outpatient doses), admitted with ARF * She typically requires 170 units of insulin/day as an outpatient but has only received 5 units total since last evening due to ARF and being NPO * Her SCr is now back to baseline and her diet is being advanced, so I expect her insulin requirements to increase quickly * From her last admission, she was requiring ~120 units of insulin/day * Lantus 35 units BID * Novolog w/ CF 10, CR 3 * Will plan to resume this regimen, starting the Lantus with dinner since she is behind in basal dosing, and add overnight accuchecks if necessary * Will also order a scale for the Lantus should her BSGs remain on the lower side PLAN FOR INPATIENT GLYCEMIC CONTROL: * Basal insulin * Lantus SQ BID per scale - adjusted slightly to give higher dose of Lantus * 5 units for BSG < 100 * 15 units for BSG 100-150 * 25 units for BSG > 150 * Bolus insulin * NovoLog per scale ACHS * Goal Range: Low 110 mg/dL - High 150 mg/dL * LOOSEN Correction Factor: 15 mg/dL/unit * Nutritional / Prandial insulin per carb ratio of 1 unit per 4 grams CHO consumed
[2017-06-14] MEDS ORDERED: POTASSIUM CHLORIDE 10 MEQ TABCR PO ONE (15:15)
[2017-06-14 15:48] VITALS: BP 146/85; PULSE 61; TEMP 36.6; O2SAT 97
[2017-06-14 16:00] VITALS: O2SAT 97
--- NOTE | 2017-06-14 18:18 | Nephrology Progress Note ---
Nephrology Progress Note Date of Service: Jun 14, 2017. Subjective no further breast pain; no diarrhea; no v but ongoing low level malaise; has never had sleep study but snores/sleeps poorly , no weakness/presyncopal sx; getting eval for gallstone pancreatitis >> for EUS tomorrow, for surgical c/s Objective Date Time Temp Pulse Resp B/P (MAP) Pulse Ox O2 Delivery O2 Flow Rate FiO2 06/14/17 08:00 Room Air 06/14/17 07:31 36.7 71 20 155/74 (101) 97 Room Air 06/14/17 00:02 Room Air 06/13/17 23:33 36.6 72 20 115/69 (84) 98 Room Air 06/13/17 20:14 Room Air 06/13/17 19:55 67 157/79 (105) 06/13/17 16:00 Room Air 06/13/17 15:52 36.7 69 18 129/76 (93) 98 Room Air Physical Exam: General Appearance: WD/WN, no apparent distress, + obese, + pertinent finding ( on ra maneuvers readily for exam) up in chair Eyes: EOMI, dilated pupils BL ENT: hearing grossly normal Neck: supple Respiratory/Chest: chest non-tender, normal breath sounds, no respiratory distress, + decreased breath sounds Cardiovascular: regular rate, rhythm, no edema Abdomen: normal bowel sounds, non tender, soft Extremities: no pedal edema Neurologic/Psych: alert, normal mood/affect, oriented x 3, + pertinent finding (pizarro, fluent speech) Skin: warm/dry, no rash, + pallor Current Inpatient Medications Medications (Trade) Dose Ordered Sig/Yudy Route Start Time Stop Time Status Last Admin Dose Admin Sodium Bicarbonate (Sodium Bicarbonate Tab) 1,300 mg TID PO 06/12/17 08:00 07/12/17 07:59 06/14/17 13:34 1,300 MG Prochlorperazine Edisylate 5 mg/ Syringe 5 ml @ 5 mls/min Q6H PRN IV 06/11/17 19:45 07/11/17 19:44 Tramadol HCl (Ultram Tab) 25 mg Q6H PRN PO 06/11/17 19:45 07/11/17 19:44 Hydromorphone HCl (Dilaudid Inj) 0.5 mg Q3H PRN IV 06/11/17 19:45 06/25/17 19:44 Heparin Sodium (Porcine) (Heparin Sq 5000 Unit/0.5ml) 5,000 unit Q8H SQ 06/11/17 22:00 07/11/17 21:59 Future Hold 06/13/17 13:14 5,000 UNIT Acetaminophen (Tylenol Tab) 650 mg Q4H PRN PO 06/11/17 21:15 07/11/17 21:14 06/11/17 22:02 650 MG Glucose (Glucose 40% Gel) 15-30 GRAMS 15 GRAMS... UD PRN PO 06/11/17 21:15 07/11/17 21:14 Glucose (Glucose Chew Tab) 4-8 Tablets 4 Tabl... UD PRN PO 06/11/17 21:15 07/11/17 21:14 Dextrose (Dextrose 50% 50ML Syringe) 25-50ML OF 50% DW IV FOR... UD PRN IV 06/11/17 21:15 07/11/17 21:14 Glucagon (Glucagon Inj) 1 mg UD PRN SQ 06/11/17 21:15 07/11/17 21:14 Nicotine (Nicoderm Cq 7 Mg Patch) 1 patch QAM TD 06/12/17 08:00 07/12/17 08:59 Miscellaneous (Remove Nicoderm Patch) 1 ea HS N/A 06/12/17 21:00 07/12/17 20:59 Amlodipine Besylate (Norvasc Tab) 10 mg DAILY PO 06/12/17 08:00 07/12/17 08:59 06/14/17 07:43 10 MG Duloxetine HCl (Cymbalta Cap) 60 mg QPM PO 06/12/17 21:00 07/12/17 20:59 06/13/17 19:48 60 MG Pregabalin (Lyrica Cap) 50 mg TID PO 06/12/17 08:00 07/12/17 08:59 06/14/17 13:34 50 MG Pantoprazole Sodium (Protonix Tab) 40 mg QAM PO 06/12/17 08:00 07/12/17 08:59 06/14/17 07:43 40 MG Miscellaneous Information (Order Awaiting Action) 1 ea QS N/A 06/12/17 08:00 4/4/18 07:59 Propranolol HCl (Inderal La Cap) 120 mg BID PO 06/11/17 22:00 07/11/17 21:59 06/14/17 07:43 120 MG Insulin Aspart (novoLOG ASPART) SLIDING SCALE If C... ACHS SC 06/12/17 06:30 07/12/17 06:29 06/14/17 12:43 12 UNITS Miscellaneous Information (Consult Glycemic Management Pharmacy) 1 ea UD PRN N/A 06/12/17 14:59 07/12/17 14:58 Sodium Bicarbonate 75 meq/Sodium Chloride 1,075 ml @ 100 mls/hr [id number] IV 06/12/17 18:45 07/12/17 18:44 06/14/17 12:41 100 MLS/HR Insulin Glargine (Lantus Solostar Pen) SEE PROTOCOL TEXT BID SC 06/13/17 08:00 07/13/17 07:59 06/14/17 08:19 15 UNITS Last 24 Hours Test 06/13/17 16:28 06/13/17 20:26 06/14/17 01:22 06/14/17 01:30 Bedside Glucose 110 mg/dl 143 mg/dl 104 mg/dl Urine Random Creatinine 31.8 mg/dl Urine Random Sodium 64 mEq/L Urine Random Potassium 9.1 mEq/L Urine Random Chloride 63 mEq/L Test 06/14/17 06:37 06/14/17 07:41 Sodium Level 140 mmol/L Potassium Level 3.2 mmol/L Chloride Level 113 mmol/L Carbon Dioxide Level 19 mmol/L Anion Gap 8.0 mmol/L Blood Urea Nitrogen 18 mg/dl Creatinine 0.71 mg/dl Est Creatinine Clear Calc Drug Dose 102.8 ml/min Estimated GFR () 120.1 Estimated GFR (Non- 103.6 BUN/Creatinine Ratio 25.1 Random Glucose 107 mg/dl Calcium Level 9.5 mg/dl Magnesium Level 1.9 mg/dl Lipase 598 U/L Bedside Glucose 119 mg/dl Assessment & Plan 42 y/o F w/ DM, obesity, reported CKD 4 (though her creatinine has normalized here), HTN, active tobacco abuse after partial colectomy for C diff admitted yestderday for OK on CKD w/ worsened metabolic acidosis in the setting of GI illness presumed viral and w/ recent hgbA1c 13.8%. challenging acidosis case w / many moving parts and need for acute dialysis 2X past 2 mos. OK on CKD >> improved to better than baseline, suggesting in part prerenal component even to her ckd Baseline creatinine is 1.6-2.2 w/ presenting creatinine 2.7; improving w/ rehydration on NS at 100 mL hourly after multiple L boluses and more aggressive rates. some ibuprofen use prior to presentation. admission urine not consistent with infection or GN but consistent with known 1gm daily proteinuria and dehydration -daily bmp Chronic and periodically life threatening AG metabolic acidosis w/o clear cause possibly based on ABG w/ respiratory acidosis present as well; very challenging case; no consistent/clear cause -she changes quickly to hyperchloremic acidosis and rather refractory to bicarb therapy iron levels normal; off of metformin; no shalonda bowel complaints, only vomiting prior to presentation. no elevated lactate, tylenol, salicylate or etoh levels on arrival; no suicidal ideations; normal D lactic acid last month >stopped her bicarb rich fluids w/ idea to see if bicarb levels drop again off of these by am >in am recheck bmp, uacm, abg, urine chemistries -ordered check of heavy metals, repeat d lactate, pyroglutamic acid in urine acid panel (though tylenol levels were not high), serum ceruloplasmin and 24 hr urine for copper -ensure has osteoporosis screening after d/c >>>asked primary service to consider nocturnal pulseox d/t resp acidosis Hypokalemia -in part d/t bicarb tx >> started 40 mEq daily K and will cont -also a part most likely of her underlying acid base disorder -consider amiloride rx once dx w/u further along Uncontrolled DM -per primary service > BG controlled here s/p colectomy w/ gallstone pancreatitis ? malabsorption >> no GI f[facility] but they are now seeing her her Appreciate consult; will follow with you. Care coordinated w/ Dr Riley
[2017-06-14] MEDS: DULOXETINE HCL 60 MG CAP PO SCH (20:16)
[2017-06-14 23:53] VITALS: BP 137/80; PULSE 68; TEMP 36.9; O2SAT 98
[2017-06-15 05:34] VITALS: PULSE 71; O2SAT 95
--- NOTE | 2017-06-15 06:24 | Surgery Consultation ---
Consultation Date of Consultation: Jun 15, 2017. Attending Physician: Marychuy Riley M.D. Reason for Consultation: gallstone pancreatitis History of Present Illness Patient is a 42F who presented to the ED on 06/11/17 due to nausea, vomiting and abdominal pain. PMHx significant for DM, DKA (2 episodes in past), CKD-4, HTN, GERD, metabolic acidosis. Patient also has chronically elevated Lipase since 2013. She notes that since April she has had post-prandial upper abdominal pain. She does not recall any particular foods that cause this and feels it happens with whatever she eats. She notes that the pain radiates to her RUQ and wraps around to her back. Denies any associated shoulder pain. These episodes are accompanied by nausea and sometimes episodes of vomiting. Denies hematemesis. She does report that she has chronic nausea. PSHx significant for total colectomy w/ end ileostomy and reversal in 2011, tracheostomy, breast surgery and multiple back surgeries. Denies use of blood thinning or anticoagulant medications. Denies fever/chills/recent illness. She has been moving her bowels and urinating without trouble. Reports FHx of gallbladder disease (Mother). At this time she reports no abdominal pain, nausea or vomiting. WBC mildly elevated at 11.02. CT abd/pelvis shows gallstones without any evidence of acute cholecystitis or pancreatitis. She has been tolerating a low-fat DM type II diet since admission. She is currently NPO due to upcoming EGD with GI today. Past Medical/Surgical History Medical Problems: (1) Abdominal pain Status: Acute (2) Confusion Status: Acute (3) Constipation Status: Acute (4) Dehydration Status: Acute (5) Dehydration Status: Acute (6) Hyperammonemia Status: Acute (7) Pneumonia Status: Acute Family History Diabetes mellitus Heart disease Social History Smoking Status: Current Every Day Smoker Drug Use: none Marital Status: Housing Status: lives with family Occupation Status: employed Allergies Coded Allergies: BEE STING (Verified Allergy, Intermediate, RED, SHORT OF BREATH, 06/11/17) Home Medications Scheduled Amlodipine (Norvasc), 10 MG PO DAILY Atorvastatin (Lipitor), 10 MG PO DAILY Cholecalciferol (Vitamin D3), 5,000 INTER.UNIT PO DAILY Duloxetine Hcl (Cymbalta), 60 MG PO QPM Esomeprazole Magnesium (Nexium), 40 MG PO QAM Fenofibrate (Tricor), 160 MG PO DAILY Insulin Degludec (Tresiba Flextouch), 110 UNITS PO DAILY Insulin Lispro (Human) (Humalog Kwikpen), 20 UNITS SQ TIDM Lisinopril (Lisinopril), 10 MG PO DAILY Winters-3 Fatty Acids (Fish Oil), 1,000 MG PO BID Pregabalin (Lyrica), 50 MG PO TID Propranolol Hcl (Propranolol Hcl Er), 120 MG PO BID Sodium Bicarbonate (Sodium Bicarbonate), 1,300 MG PO TID Scheduled PRN Albuterol Hfa (Ventolin Hfa), 2 PUFFS INH Q4H PRN for SOB/Wheezing Current Inpatient Medications Current Inpatient Medications Medications (Trade) Dose Ordered Sig/Yudy Route Start Time Stop Time Status Last Admin Dose Admin Sodium Bicarbonate (Sodium Bicarbonate Tab) 1,300 mg TID PO 06/12/17 08:00 07/12/17 07:59 06/14/17 20:16 1,300 MG Prochlorperazine Edisylate 5 mg/ Syringe 5 ml @ 5 mls/min Q6H PRN IV 06/11/17 19:45 07/11/17 19:44 Tramadol HCl (Ultram Tab) 25 mg Q6H PRN PO 06/11/17 19:45 07/11/17 19:44 Hydromorphone HCl (Dilaudid Inj) 0.5 mg Q3H PRN IV 06/11/17 19:45 06/25/17 19:44 Heparin Sodium (Porcine) (Heparin Sq 5000 Unit/0.5ml) 5,000 unit Q8H SQ 06/11/17 22:00 07/11/17 21:59 Future Hold 06/13/17 13:14 5,000 UNIT Acetaminophen (Tylenol Tab) 650 mg Q4H PRN PO 06/11/17 21:15 07/11/17 21:14 06/11/17 22:02 650 MG Glucose (Glucose 40% Gel) 15-30 GRAMS 15 GRAMS... UD PRN PO 06/11/17 21:15 07/11/17 21:14 Glucose (Glucose Chew Tab) 4-8 Tablets 4 Tabl... UD PRN PO 06/11/17 21:15 4/3/18 21:14 Dextrose (Dextrose 50% 50ML Syringe) 25-50ML OF 50% DW IV FOR... UD PRN IV 06/11/17 21:15 07/11/17 21:14 Glucagon (Glucagon Inj) 1 mg UD PRN SQ 06/11/17 21:15 07/11/17 21:14 Nicotine (Nicoderm Cq 7 Mg Patch) 1 patch QAM TD 06/12/17 08:00 07/12/17 08:59 Miscellaneous (Remove Nicoderm Patch) 1 ea HS N/A 06/12/17 21:00 07/12/17 20:59 Amlodipine Besylate (Norvasc Tab) 10 mg DAILY PO 06/12/17 08:00 07/12/17 08:59 06/14/17 07:43 10 MG Duloxetine HCl (Cymbalta Cap) 60 mg QPM PO 06/12/17 21:00 07/12/17 20:59 06/14/17 20:16 60 MG Pregabalin (Lyrica Cap) 50 mg TID PO 06/12/17 08:00 07/12/17 08:59 06/14/17 20:16 50 MG Pantoprazole Sodium (Protonix Tab) 40 mg QAM PO 06/12/17 08:00 07/12/17 08:59 06/14/17 07:43 40 MG Miscellaneous Information (Order Awaiting Action) 1 ea QS N/A 06/12/17 08:00 07/12/17 07:59 Propranolol HCl (Inderal La Cap) 120 mg BID PO 06/11/17 22:00 07/11/17 21:59 06/14/17 20:16 120 MG Insulin Aspart (novoLOG ASPART) SLIDING SCALE If C... ACHS SC 06/12/17 06:30 07/12/17 06:29 06/14/17 17:43 10 UNITS Miscellaneous Information (Consult Glycemic Management Pharmacy) 1 ea UD PRN N/A 06/12/17 14:59 07/12/17 14:58 Insulin Glargine (Lantus Solostar Pen) SEE PROTOCOL TEXT BID SC 06/13/17 08:00 07/13/17 07:59 06/14/17 20:19 15 UNITS Potassium Chloride (Klor-Con M10) 40 meq DAILY PO 06/15/17 08:00 07/15/17 07:59 Review of Systems Constitutional: No fever, No chills Respiratory: No shortness of breath Cardiovascular: No chest pain Abdomen: No pain, No nausea, No vomiting, No diarrhea, No constipation Genitourinary - Female: No dysuria Physical Exam Date Time Temp Pulse Resp B/P (MAP) Pulse Ox O2 Delivery O2 Flow Rate FiO2 06/15/17 05:34 71 18 95 Room Air 06/15/17 00:00 Room Air 06/14/17 23:53 36.9 68 20 137/80 (99) 98 Room Air 06/14/17 16:00 97 Room Air 06/14/17 15:48 36.6 61 18 146/85 (105) 97 Room Air 06/14/17 08:00 Room Air 06/14/17 07:31 36.7 71 20 155/74 (101) 97 Room Air General Appearance: WD/WN, no apparent distress Head: normocephalic, atraumatic ENT: hearing grossly normal Neck: trachea midline Respiratory/Chest: no respiratory distress, no accessory muscle use Abdomen/GI: normal bowel sounds, soft, no organomegaly, no pulsatile mass, + tenderness (Generalized TTP), + pertinent finding (Visible abdominal bloating on exam) Neurologic/Psych: alert, normal mood/affect, oriented x 3 Skin: normal color, warm/dry Laboratory Results Last 24 Hours Test 06/14/17 06:37 06/14/17 07:41 06/14/17 11:29 06/14/17 16:30 Sodium Level 140 mmol/L Potassium Level 3.2 mmol/L Chloride Level 113 mmol/L Carbon Dioxide Level 19 mmol/L Anion Gap 8.0 mmol/L Blood Urea Nitrogen 18 mg/dl Creatinine 0.71 mg/dl Est Creatinine Clear Calc Drug Dose 102.8 ml/min Estimated GFR () 120.1 Estimated GFR (Non- 103.6 BUN/Creatinine Ratio 25.1 Random Glucose 107 mg/dl Calcium Level 9.5 mg/dl Magnesium Level 1.9 mg/dl Lipase 598 U/L Bedside Glucose 119 mg/dl 159 mg/dl 135 mg/dl Test 06/14/17 17:46 06/14/17 20:02 06/15/17 04:44 Bedside Glucose 136 mg/dl Assessment & Plan gallstones, biliary colic, possible gallstone pancreatitis. Elevated lipase could very well be due to gallstone etiology although imaging shows no evidence of acute pancreatitis or acute cholecystitis - cannot rule out other sources. Reports no abdominal pain, nausea or vomiting at this time. EGD today with GI - will await results. Possible Laparoscopic cholecystectomy with Dr. Santiago during her hospital stay. Will Discuss findings with Dr. Santiago. Please contact with questions or concerns.
--- NOTE | 2017-06-15 06:46 | Progress Note ---
Internal Med Progress Note Date of Service: Jun 14, 2017. Provider Documentation: LATE ENTRY pt seen on 06/14/17 at approx 1830 SUBJECTIVE: Offers no complaint, no nausea vomiting or abdominal discomfort Evaluated by GI, plan for EGD tomorrow For recurrent gallstone pancreatitis Surgery evaluation requested as patient may benefit with cholecystectomy OBJECTIVE: Vital Signs-as noted below Exam: General-Pleasant no sign of any distress Eyes-sclera nonicteric, PERRLA/EOMI ENT-moist oral mucosa Neck-no JVD, no carotid bruit, no thyromegaly Lungs-clear to auscultate no wheezes or rales Heart-regular S1-S2 Abdomen-soft nontender, bowel sounds active Extremities- Neuro-alert awake oriented 3, no focal neurological deficit Lab data as noted below. ASSESSMENT & PLAN: 1. Acute kidney injury/CKD stage IV -Possibly due to diabetic nephropathy Baseline creatinine 1.6 -2.2 Presented with elevated creatinine of 2.69 Possible secondary to GI loss, reports of nausea vomiting poor p.o. intake for last few days Appreciate input from nephrology Creatinine improved to 0.88 Continue to monitor labs Avoid NSAIDs, contrast studies. 2. Type 2 diabetes/poorly controlled Hemoglobin A1c 13 on 04/17/2017 Appreciate pharmacy input for glycemic management Patient is continued with basal Lantus, insulin sliding scale. 3. Chronic metabolic acidosis/hyperchloremia -Appreciate input from nephrology Dr. Adebayo Centeno was 9 on presentation, Was treated with IV bicarb half-normal saline with 75 Meq per liter sodium bicarb -Bicarbonate level 19 -IV bicarbonate drip discontinued, transitioned to oral bicarb -Nephrology following closely 4. Hypokalemia: -Ordered for replacement -Follow daily labs 5. Elevated lipase/gallstone pancreatitis CT abdomen pelvis without contrast: No evidence of pancreatitis -Cholelithiasis Lipase level: 1483 improved to 755-> 1027 Does not have any GI symptoms Continue with low-fat diet GI eval requested. Appreciate input Plan for EGD tomorrow General surgery consulted, patient may need cholecystectomy 6. Hypertension: On amlodipine and propranolol. CODE STATUS: Full code DVT PROPHYLAXIS SCD and teds Ambulate DISPOSITION Expected to be discharged home when medically stable Medicine follow-up with Dr. Garsia Vital Signs: Date Time Temp Pulse Resp B/P (MAP) Pulse Ox O2 Delivery O2 Flow Rate FiO2 06/15/17 12:40 36.7 67 18 168/103 (124) 97 Room Air 06/15/17 12:39 36.7 67 16 168/103 (124) 97 Room Air 06/15/17 08:00 Room Air 06/15/17 07:11 36.7 67 18 191/106 (134) 98 Room Air 06/15/17 05:34 71 18 95 Room Air 06/15/17 00:00 Room Air 06/14/17 23:53 36.9 68 20 137/80 (99) 98 Room Air 06/14/17 16:00 97 Room Air 06/14/17 15:48 36.6 61 18 146/85 (105) 97 Room Air Lab Results: Results Past 24 Hours Test 06/14/17 16:30 06/14/17 17:46 06/14/17 20:02 06/15/17 04:44 Range/Units Bedside Glucose 135 136 70-90 mg/dl Test 06/15/17 07:19 06/15/17 07:54 06/15/17 12:34 Range/Units White Blood Count 7.60 4.8-10.8 K/uL Red Blood Count 3.48 4.2-5.4 M/uL Hemoglobin 9.4 12.0-16.0 g/dL Hematocrit 28.6 37-47 % Mean Corpuscular Volume 82.2 80-100 fL Mean Corpuscular Hemoglobin 27.0 25-34 pg Mean Corpuscular Hemoglobin Concent 32.9 32-36 g/dl Platelet Count 366 130-400 K/uL Mean Platelet Volume 8.7 7.4-10.4 fL Neutrophils (%) (Auto) 73.8 % Lymphocytes (%) (Auto) 17.6 % Monocytes (%) (Auto) 6.1 % Eosinophils (%) (Auto) 1.8 % Basophils (%) (Auto) 0.3 % Neutrophils # (Auto) 5.61 1.4-6.5 K/uL Lymphocytes # (Auto) 1.34 1.2-3.4 K/uL Monocytes # (Auto) 0.46 0.11-0.59 K/uL Eosinophils # (Auto) 0.14 0-0.5 K/uL Basophils # (Auto) 0.02 0-0.2 K/uL RDW Standard Deviation 55.3 36.4-46.3 fL RDW Coefficient of Variation 18.2 11.5-14.5 % Immature Granulocyte % (Auto) 0.4 % Immature Granulocyte # (Auto) 0.03 0.00-0.02 K/uL Arterial Blood pH 7.42 7.35-7.45 Arterial Blood Partial Pressure CO2 37 35-46 mmHg Arterial Blood Partial Pressure O2 75 80-95 mm/Hg Arterial Blood HCO3 24 19-24 mmol/L Arterial Blood Oxygen Saturation 94.2 90-95 % Arterial Blood Base Excess -0.7 -9-1.8 mEq/L Arterial Blood Gas Delivery ROOM AIR Mickey Test POS POS Sodium Level 137 136-145 mmol/L Potassium Level 3.0 3.5-5.1 mmol/L Chloride Level 107 98-107 mmol/L Carbon Dioxide Level 24 21-32 mmol/L Anion Gap 6.0 3-11 mmol/L Blood Urea Nitrogen 12 7-18 mg/dl Creatinine 0.67 0.60-1.20 mg/dl Est Creatinine Clear Calc Drug Dose 109.0 ml/min Estimated GFR () 123.9 Estimated GFR (Non- 106.9 BUN/Creatinine Ratio 18.5 10-20 Random Glucose 127 70-99 mg/dl Osmolality 292 280-300 mOsm/kg Uric Acid 3.2 2.6-7.2 mg/dl Calcium Level 9.9 8.5-10.1 mg/dl Ionized Calcium 1.28 1.12-1.32 mmol/l Phosphorus Level 1.9 2.5-4.9 mg/dl Amylase Level 61 25-115 U/L Lipase 444 73-393 U/L Beta-Hydroxybutyric Acid 3.69 0.2-2.81 mg/dL Bedside Glucose 138 137 70-90 mg/dl
[2017-06-15 07:11] VITALS: BP 191/106; PULSE 67; TEMP 36.7; O2SAT 98
[2017-06-15 07:37] LABS: BASO % 0.3 %; BASO ABS # 0.02 K/uL (0-0.2); EOS % 1.8 %; EOS ABS # 0.14 K/uL (0-0.5); HEMATOCRIT 28.6 % (37-47); HEMOGLOBIN 9.4 g/dL (12.0-16.0); IG# 0.03 K/uL (0.00-0.02); LYMPH % 17.6 %; LYMPH ABS # 1.34 K/uL (1.2-3.4); MEAN CELL VOLUME 82.2 fL (80-100); MEAN CORPUSCULAR HGB CONC 32.9 g/dl (32-36); MEAN PLATELET VOLUME 8.7 fL (7.4-10.4); MONO % 6.1 %; MONO ABS # 0.46 K/uL (0.11-0.59); NEUT % 73.8 %; NEUT ABS # 5.61 K/uL (1.4-6.5); PLATELET COUNT 366 K/uL (130-400); RED CELL DISTRIBUTION WIDTH CV 18.2 % (11.5-14.5); RED CELL DISTRIBUTION WIDTH SD 55.3 fL (36.4-46.3)
[2017-06-15] MEDS: NICOTINE 7 MG/24 HR TDSY TD SCH (07:40)
[2017-06-15] MEDS: SODIUM BICARBONATE 650 MG TAB PO SCH ×3 (07:42→20:57)
[2017-06-15] MEDS: POTASSIUM CHLORIDE 10 MEQ TABCR PO SCH (07:42)
[2017-06-15] MEDS: PREGABALIN 50 MG CAP PO SCH ×3 (07:42→20:56)
[2017-06-15] MEDS: PANTOprazole SOD 40 MG TAB PO SCH (07:42)
[2017-06-15] MEDS: AMLODIPINE BESYLATE 5 MG TAB PO SCH (07:43)
[2017-06-15] MEDS: PROPRANOLOL HCL 60 MG LA CAP PO SCH ×2 (07:43→20:57)
[2017-06-15] MEDS: INSULIN ASPART 100 UNITS/ML 3 ML PEN SC SCH ×4 (07:55→20:56)
[2017-06-15] MEDS: INSULIN GLARGINE SOLOSTAR 100 UNITS/ML 3 ML PEN SC SCH ×2 (07:59→20:54)
[2017-06-15 08:06] LABS: CALCIUM 9.9 mg/dl (8.5-10.1); CREATININE 0.67 mg/dl (0.60-1.20); URIC ACID 3.2 mg/dl (2.6-7.2)
[2017-06-15 08:12] LABS: PHOSPHORUS 1.9 mg/dl (2.5-4.9)
--- NOTE | 2017-06-15 09:26 | Gastroenterology Progress Note ---
Progress Note Date of Service: Jun 15, 2017 Subjective Pt evaluation today including: conversation w/ patient, physical exam, chart review, lab review Pt was seen and evaluated, chart reviewed. No acute events overnight. Is NPO for EGD. Nolan any abd pain overnight but did have some nausea, no vomiting. She has have elevated lipase x years. Amylase was WNL this AM lipase 400's NSAIDs: was using frequently CT ABD/Pelvis 06/11/17: There are no acute infectious or inflammatory findings in the abdomen or pelvis. Cholelithiasis. There are postoperative changes from subtotal colectomy with ileocolic anastomosis. No bowel obstruction is seen. There are small bilateral nonobstructing renal calculi. Hepatomegaly and hepatic steatosis. ABD US 05/12/17: Mildly hyperechogenic parenchyma, although the right hemidiaphragm remains visible, likely indicating mild steatosis. No sonographic evidence of hepatic mass. Main portal vein patent with normal directional flow. Biliary: No intrahepatic biliary ductal dilatation. Common bile duct measures up to 6 mm in diameter. Gallbladder: Gallstones without evidence of gallbladder distention, wall thickening, or pericholecystic fluid or inflammatory change. EGD 11/14/07: normal Review of Systems Constitutional: No fever, No chills Respiratory: No cough, No shortness of breath Cardiac: No chest pain, No edema Abdomen: + nausea, No pain, No vomiting, No diarrhea, No constipation, No GI bleeding Medications Current Inpatient Medications Medications (Trade) Dose Ordered Sig/Yudy Route Start Time Stop Time Status Last Admin Dose Admin Sodium Bicarbonate (Sodium Bicarbonate Tab) 1,300 mg TID PO 06/12/17 08:00 07/12/17 07:59 06/15/17 07:42 1,300 MG Prochlorperazine Edisylate 5 mg/ Syringe 5 ml @ 5 mls/min Q6H PRN IV 06/11/17 19:45 07/11/17 19:44 Tramadol HCl (Ultram Tab) 25 mg Q6H PRN PO 06/11/17 19:45 07/11/17 19:44 Hydromorphone HCl (Dilaudid Inj) 0.5 mg Q3H PRN IV 06/11/17 19:45 06/25/17 19:44 Heparin Sodium (Porcine) (Heparin Sq 5000 Unit/0.5ml) 5,000 unit Q8H SQ 06/11/17 22:00 07/11/17 21:59 Future Hold 06/13/17 13:14 5,000 UNIT Acetaminophen (Tylenol Tab) 650 mg Q4H PRN PO 06/11/17 21:15 07/11/17 21:14 06/11/17 22:02 650 MG Glucose (Glucose 40% Gel) 15-30 GRAMS 15 GRAMS... UD PRN PO 06/11/17 21:15 07/11/17 21:14 Glucose (Glucose Chew Tab) 4-8 Tablets 4 Tabl... UD PRN PO 06/11/17 21:15 07/11/17 21:14 Dextrose (Dextrose 50% 50ML Syringe) 25-50ML OF 50% DW IV FOR... UD PRN IV 06/11/17 21:15 07/11/17 21:14 Glucagon (Glucagon Inj) 1 mg UD PRN SQ 06/11/17 21:15 07/11/17 21:14 Nicotine (Nicoderm Cq 7 Mg Patch) 1 patch QAM TD 06/12/17 08:00 07/12/17 08:59 Miscellaneous (Remove Nicoderm Patch) 1 ea HS N/A 06/12/17 21:00 07/12/17 20:59 Amlodipine Besylate (Norvasc Tab) 10 mg DAILY PO 06/12/17 08:00 07/12/17 08:59 06/15/17 07:43 10 MG Duloxetine HCl (Cymbalta Cap) 60 mg QPM PO 06/12/17 21:00 07/12/17 20:59 06/14/17 20:16 60 MG Pregabalin (Lyrica Cap) 50 mg TID PO 06/12/17 08:00 07/12/17 08:59 06/15/17 07:42 50 MG Pantoprazole Sodium (Protonix Tab) 40 mg QAM PO 06/12/17 08:00 07/12/17 08:59 06/15/17 07:42 40 MG Miscellaneous Information (Order Awaiting Action) 1 ea QS N/A 06/12/17 08:00 07/12/17 07:59 Propranolol HCl (Inderal La Cap) 120 mg BID PO 06/11/17 22:00 4/3/18 21:59 06/15/17 07:43 120 MG Insulin Aspart (novoLOG ASPART) SLIDING SCALE If C... ACHS SC 06/12/17 06:30 07/12/17 06:29 06/14/17 17:43 10 UNITS Miscellaneous Information (Consult Glycemic Management Pharmacy) 1 ea UD PRN N/A 06/12/17 14:59 07/12/17 14:58 Insulin Glargine (Lantus Solostar Pen) SEE PROTOCOL TEXT BID SC 06/13/17 08:00 07/13/17 07:59 06/15/17 07:59 15 UNITS Potassium Chloride (Klor-Con M10) 40 meq DAILY PO 06/15/17 08:00 07/15/17 07:59 06/15/17 07:42 40 MEQ Potassium Chloride (Klor-Con Tab) 40 meq NOW ONCE PO 06/15/17 09:30 06/15/17 09:31 Objective Vital Signs Date Time Temp Pulse Resp B/P (MAP) Pulse Ox O2 Delivery O2 Flow Rate FiO2 06/15/17 08:00 Room Air 06/15/17 07:11 36.7 67 18 191/106 (134) 98 Room Air 06/15/17 05:34 71 18 95 Room Air 06/15/17 00:00 Room Air 06/14/17 23:53 36.9 68 20 137/80 (99) 98 Room Air 06/14/17 16:00 97 Room Air 06/14/17 15:48 36.6 61 18 146/85 (105) 97 Room Air Physical Exam General Appearance: no apparent distress Eyes: PERRL ENT: hearing grossly normal Neck: supple Respiratory/Chest: lungs clear, normal breath sounds Cardiovascular: regular rate, rhythm, no gallop Abdomen: normal bowel sounds, non tender, soft, no organomegaly Neurologic/Psych: alert, normal mood/affect, oriented x 3 Skin: normal color Laboratory Results Last 24 Hours Test 06/14/17 11:29 06/14/17 16:30 06/14/17 17:46 06/14/17 20:02 Bedside Glucose 159 mg/dl 135 mg/dl 136 mg/dl Test 06/15/17 04:44 06/15/17 07:19 White Blood Count 7.60 K/uL Red Blood Count 3.48 M/uL Hemoglobin 9.4 g/dL Hematocrit 28.6 % Mean Corpuscular Volume 82.2 fL Mean Corpuscular Hemoglobin 27.0 pg Mean Corpuscular Hemoglobin Concent 32.9 g/dl Platelet Count 366 K/uL Mean Platelet Volume 8.7 fL Neutrophils (%) (Auto) 73.8 % Lymphocytes (%) (Auto) 17.6 % Monocytes (%) (Auto) 6.1 % Eosinophils (%) (Auto) 1.8 % Basophils (%) (Auto) 0.3 % Neutrophils # (Auto) 5.61 K/uL Lymphocytes # (Auto) 1.34 K/uL Monocytes # (Auto) 0.46 K/uL Eosinophils # (Auto) 0.14 K/uL Basophils # (Auto) 0.02 K/uL RDW Standard Deviation 55.3 fL RDW Coefficient of Variation 18.2 % Immature Granulocyte % (Auto) 0.4 % Immature Granulocyte # (Auto) 0.03 K/uL Arterial Blood pH 7.42 Arterial Blood Partial Pressure CO2 37 mmHg Arterial Blood Partial Pressure O2 75 mm/Hg Arterial Blood HCO3 24 mmol/L Arterial Blood Oxygen Saturation 94.2 % Arterial Blood Base Excess -0.7 mEq/L Arterial Blood Gas Delivery ROOM AIR Mickey Test POS Sodium Level 137 mmol/L Potassium Level 3.0 mmol/L Chloride Level 107 mmol/L Carbon Dioxide Level 24 mmol/L Anion Gap 6.0 mmol/L Blood Urea Nitrogen 12 mg/dl Creatinine 0.67 mg/dl Est Creatinine Clear Calc Drug Dose 109.0 ml/min Estimated GFR () 123.9 Estimated GFR (Non- 106.9 BUN/Creatinine Ratio 18.5 Random Glucose 127 mg/dl Osmolality 292 mOsm/kg Uric Acid 3.2 mg/dl Calcium Level 9.9 mg/dl Ionized Calcium 1.28 mmol/l Phosphorus Level 1.9 mg/dl Amylase Level 61 U/L Lipase 444 U/L Beta-Hydroxybutyric Acid 3.69 mg/dL Assessment and Plan Patient is a 42 year old female w/ history of c.diff s/p total colectomy w/ end ileostomy w/ reversal in 2011, DM w/ history of DKA x 2 in May who presented to [facility] ED for concerns of DKA w/ nausea, vomiting abdominal pain. On arrival lipase was elevated 1500, imaging with gallstones but no CT evidence of pancreatitis. She has been tolerating diet since admission w/o abdominal pain, nausea or vomiting. She has had post prandial upper abd pain, nausea, vomiting since April. Her lipase may be acutely elevated due to passing gallstones or GB sludge, she is no longer symptomatic and has normal LFTs. Her lipase has been elevated x years perhaps macrolipasemia given normal amylase - NPO for EGD today - Anti-emetics PRN - Analgesia PRN - OP GES Attg add: I interviewed and examined pt, reviewed chart and labs. Pt with upper abd pain, now resolved. Heavy NSAID use. Exam unchanged from yesterday. EGD today.
[2017-06-15] MEDS ORDERED: POTASSIUM CHLORIDE 20 MEQ TABCR PO ONE (09:30)
--- NOTE | 2017-06-15 11:44 | Progress Note ---
Progress Note Date of Service Jun 15, 2017. Progress Note seen with Dr. Santiago recommend cholecystectomy for symptomatic cholelithiasis, possible gallstone pancreatitis will plan for tomorrow unless there are other findings on EGD today
--- NOTE | 2017-06-15 13:52 | GI REPORT ---
Procedure Date: 06/15/2017 1:34 PM Procedure: Upper GI endoscopy Indications: Abdominal pain Medicines: See the Anesthesia note for documentation of the administered medications Complications: No immediate complications. Estimated Blood Loss: Estimated blood loss: none. Procedure: Pre-Anesthesia Assessment: - ASA Grade Assessment: III - A patient with severe systemic disease. After obtaining informed consent, the endoscope was passed under direct vision. Throughout the procedure, the patient's blood pressure, pulse, and oxygen saturations were monitored continuously. The scope was introduced through the mouth, and advanced to the second part of duodenum. The upper GI endoscopy was accomplished without difficulty. The patient tolerated the procedure well. Findings: Mild candidiasis, otherwise normal exam. The examined esophagus was normal. The entire examined stomach was normal. Biopsies were taken with a cold forceps for histology. The examined duodenum was normal. Biopsies were taken with a cold forceps for histology. Impression: - Mild candidiasis. - Normal stomach. Biopsied. - Normal examined duodenum. Biopsied. Recommendation: Discharge patient to home (ambulatory). Anu Rucker M.D. Anu Rucker MD 06/15/2017 1:52:09 PM This report has been signed electronically. Note Initiated On: 06/15/2017 1:34 PM I attest to the content of the Intraoperative Record and orders documented therein, exceptions below
--- NOTE | 2017-06-15 14:12 | Anesthesiology Progress Note ---
Anesthesia Post Op Note Date & Time Jun 15, 2017 at 14:11 Vital Signs Pain Intensity: 0.0 Vital Signs Past 12 Hours Date Time Temp Pulse Resp B/P (MAP) Pulse Ox O2 Delivery O2 Flow Rate FiO2 06/15/17 14:06 71 16 154/89 (110) 97 Room Air 06/15/17 13:51 71 16 104/61 (75) 97 Room Air 06/15/17 12:40 36.7 67 18 168/103 (124) 97 Room Air 06/15/17 12:39 36.7 67 16 168/103 (124) 97 Room Air 06/15/17 08:00 Room Air 06/15/17 07:11 36.7 67 18 191/106 (134) 98 Room Air 06/15/17 05:34 71 18 95 Room Air Notes Mental Status: alert / awake / arousable, participated in evaluation Pt Amnestic to Procedure: Yes Nausea / Vomiting: adequately controlled Pain: adequately controlled Airway Patency, RR, SpO2: stable & adequate BP & HR: stable & adequate Hydration State: stable & adequate Anesthetic Complications: no major complications apparent
--- NOTE | 2017-06-15 15:24 | Anesthesiology Progress Note ---
Anesthesia Progress Note Date of Service Jun 15, 2017. Progress Notes This is a 42 y/o obese w female w/ cholelithiasis presenting for a laparoscopic cholecystectomy.PMHx is sig. for: active cigarette smoker,HTN,Hyperlipidemia, ASCVD Aorta,GERD,Hepatomegaly,NIDDM IR,multiple episodes of DKA,CKD stage 4, admitted w/ARF on CKD,chronic metabolic acidosis/encephalopathy requiring hemodialysis,chronic anemia,obesity,admitted mid- May for sepsis syndrome and severe C.difficile requiring a bowel resection in the past.Pt was seen and examined.Anesthesia was discussed.Informed consent was not obtained as the patient recently had a procedure requiring sedation.She will provide consent tomorrow prior to surgery.
[2017-06-15 15:50] VITALS: O2SAT 98
[2017-06-15 15:53] VITALS: BP 138/94; PULSE 68; TEMP 36.8; O2SAT 98
--- NOTE | 2017-06-15 18:35 | Nephrology Progress Note ---
Nephrology Progress Note Date of Service: Jun 15, 2017. Subjective no further breast pain; no diarrhea; no v ; had noct pulseox; eus unrevealing; for cholecystectomy in am , no weakness/presyncopal sx Objective Date Time Temp Pulse Resp B/P (MAP) Pulse Ox O2 Delivery O2 Flow Rate FiO2 06/15/17 15:53 36.8 68 16 138/94 (109) 98 Room Air 06/15/17 15:50 98 Room Air 06/15/17 14:21 71 16 166/97 (120) 98 Room Air 06/15/17 14:06 71 16 154/89 (110) 97 Room Air 06/15/17 13:51 71 16 104/61 (75) 97 Room Air 06/15/17 12:40 36.7 67 18 168/103 (124) 97 Room Air 06/15/17 12:39 36.7 67 16 168/103 (124) 97 Room Air 06/15/17 08:00 Room Air 06/15/17 07:11 36.7 67 18 191/106 (134) 98 Room Air 06/15/17 05:34 71 18 95 Room Air 06/15/17 00:00 Room Air 06/14/17 23:53 36.9 68 20 137/80 (99) 98 Room Air Physical Exam: General Appearance: WD/WN, no apparent distress, + obese, + pertinent finding ( on ra maneuvers readily for exam) up in chair Eyes: EOMI ENT: hearing grossly normal Neck: supple Respiratory/Chest: chest non-tender, normal breath sounds, no respiratory distress, + decreased breath sounds Cardiovascular: regular rate, rhythm, no edema Abdomen: normal bowel sounds, non tender, soft Extremities: no pedal edema Neurologic/Psych: alert, normal mood/affect, oriented x 3, + pertinent finding (pizarro, fluent speech) Skin: warm/dry, no rash, + pallor Current Inpatient Medications Medications (Trade) Dose Ordered Sig/Yudy Route Start Time Stop Time Status Last Admin Dose Admin Sodium Bicarbonate (Sodium Bicarbonate Tab) 1,300 mg TID PO 06/12/17 08:00 07/12/17 07:59 06/15/17 15:29 1,300 MG Prochlorperazine Edisylate 5 mg/ Syringe 5 ml @ 5 mls/min Q6H PRN IV 06/11/17 19:45 07/11/17 19:44 Tramadol HCl (Ultram Tab) 25 mg Q6H PRN PO 06/11/17 19:45 07/11/17 19:44 Hydromorphone HCl (Dilaudid Inj) 0.5 mg Q3H PRN IV 06/11/17 19:45 06/25/17 19:44 Heparin Sodium (Porcine) (Heparin Sq 5000 Unit/0.5ml) 5,000 unit Q8H SQ 06/11/17 22:00 07/11/17 21:59 Future Hold 06/13/17 13:14 5,000 UNIT Acetaminophen (Tylenol Tab) 650 mg Q4H PRN PO 06/11/17 21:15 07/11/17 21:14 06/11/17 22:02 650 MG Glucose (Glucose 40% Gel) 15-30 GRAMS 15 GRAMS... UD PRN PO 06/11/17 21:15 07/11/17 21:14 Glucose (Glucose Chew Tab) 4-8 Tablets 4 Tabl... UD PRN PO 06/11/17 21:15 07/11/17 21:14 Dextrose (Dextrose 50% 50ML Syringe) 25-50ML OF 50% DW IV FOR... UD PRN IV 06/11/17 21:15 07/11/17 21:14 Glucagon (Glucagon Inj) 1 mg UD PRN SQ 06/11/17 21:15 07/11/17 21:14 Nicotine (Nicoderm Cq 7 Mg Patch) 1 patch QAM TD 06/12/17 08:00 07/12/17 08:59 Miscellaneous (Remove Nicoderm Patch) 1 ea HS N/A 06/12/17 21:00 07/12/17 20:59 Amlodipine Besylate (Norvasc Tab) 10 mg DAILY PO 06/12/17 08:00 07/12/17 08:59 06/15/17 07:43 10 MG Duloxetine HCl (Cymbalta Cap) 60 mg QPM PO 06/12/17 21:00 07/12/17 20:59 06/14/17 20:16 60 MG Pregabalin (Lyrica Cap) 50 mg TID PO 06/12/17 08:00 07/12/17 08:59 3/8/18 15:29 50 MG Pantoprazole Sodium (Protonix Tab) 40 mg QAM PO 06/12/17 08:00 07/12/17 08:59 06/15/17 07:42 40 MG Miscellaneous Information (Order Awaiting Action) 1 ea QS N/A 06/12/17 08:00 07/12/17 07:59 Propranolol HCl (Inderal La Cap) 120 mg BID PO 06/11/17 22:00 07/11/17 21:59 06/15/17 07:43 120 MG Insulin Aspart (novoLOG ASPART) SLIDING SCALE If C... ACHS SC 06/12/17 06:30 07/12/17 06:29 06/15/17 16:30 13 UNITS Miscellaneous Information (Consult Glycemic Management Pharmacy) 1 ea UD PRN N/A 06/12/17 14:59 07/12/17 14:58 Insulin Glargine (Lantus Solostar Pen) SEE PROTOCOL TEXT BID SC 06/13/17 08:00 07/13/17 07:59 06/15/17 07:59 15 UNITS Potassium Chloride (Klor-Con M10) 40 meq DAILY PO 06/15/17 08:00 07/15/17 07:59 06/15/17 07:42 40 MEQ Last 24 Hours Test 06/14/17 20:02 06/15/17 04:44 06/15/17 07:19 06/15/17 07:54 Bedside Glucose 136 mg/dl 138 mg/dl White Blood Count 7.60 K/uL Red Blood Count 3.48 M/uL Hemoglobin 9.4 g/dL Hematocrit 28.6 % Mean Corpuscular Volume 82.2 fL Mean Corpuscular Hemoglobin 27.0 pg Mean Corpuscular Hemoglobin Concent 32.9 g/dl Platelet Count 366 K/uL Mean Platelet Volume 8.7 fL Neutrophils (%) (Auto) 73.8 % Lymphocytes (%) (Auto) 17.6 % Monocytes (%) (Auto) 6.1 % Eosinophils (%) (Auto) 1.8 % Basophils (%) (Auto) 0.3 % Neutrophils # (Auto) 5.61 K/uL Lymphocytes # (Auto) 1.34 K/uL Monocytes # (Auto) 0.46 K/uL Eosinophils # (Auto) 0.14 K/uL Basophils # (Auto) 0.02 K/uL RDW Standard Deviation 55.3 fL RDW Coefficient of Variation 18.2 % Immature Granulocyte % (Auto) 0.4 % Immature Granulocyte # (Auto) 0.03 K/uL Arterial Blood pH 7.42 Arterial Blood Partial Pressure CO2 37 mmHg Arterial Blood Partial Pressure O2 75 mm/Hg Arterial Blood HCO3 24 mmol/L Arterial Blood Oxygen Saturation 94.2 % Arterial Blood Base Excess -0.7 mEq/L Arterial Blood Gas Delivery ROOM AIR Mickey Test POS Sodium Level 137 mmol/L Potassium Level 3.0 mmol/L Chloride Level 107 mmol/L Carbon Dioxide Level 24 mmol/L Anion Gap 6.0 mmol/L Blood Urea Nitrogen 12 mg/dl Creatinine 0.67 mg/dl Est Creatinine Clear Calc Drug Dose 109.0 ml/min Estimated GFR () 123.9 Estimated GFR (Non- 106.9 BUN/Creatinine Ratio 18.5 Random Glucose 127 mg/dl Osmolality 292 mOsm/kg Uric Acid 3.2 mg/dl Calcium Level 9.9 mg/dl Ionized Calcium 1.28 mmol/l Phosphorus Level 1.9 mg/dl Amylase Level 61 U/L Lipase 444 U/L Beta-Hydroxybutyric Acid 3.69 mg/dL Test 06/15/17 12:07 06/15/17 12:34 06/15/17 15:22 Bedside Glucose 141 mg/dl 137 mg/dl 120 mg/dl Assessment & Plan 42 y/o F w/ DM, obesity, reported CKD 4 (though her creatinine has normalized here), HTN, active tobacco abuse after partial colectomy for C diff admitted for OK on CKD w/ worsened metabolic acidosis in the setting of GI illness presumed viral and w/ recent hgbA1c 13.8%. challenging acidosis case w/ many moving parts and need for acute dialysis 2X past 2 mos. OK on CKD >> improved to better than baseline, suggesting in part prerenal component even to her ckd Baseline creatinine is 1.6-2.2 w/ presenting creatinine 2.7; improved w/ rehydration. some ibuprofen use prior to presentation. admission urine not consistent with infection or GN but consistent with known 1gm daily proteinuria and dehydration -daily bmp Chronic and periodically life threatening AG metabolic acidosis w/o clear cause possibly based on ABG w/ respiratory acidosis present as well; very challenging case; no consistent/clear cause -she changes quickly to hyperchloremic acidosis and rather refractory to bicarb therapy iron levels normal; off of metformin; no shalonda bowel complaints, only vomiting prior to presentation. no elevated lactate, tylenol, salicylate or etoh levels on arrival; no suicidal ideations; normal D lactic acid last month >bicarb held after stopping ivf >in am recheck bmp -ordered check of heavy metals, repeat d lactate, pyroglutamic acid in urine acid panel (though tylenol levels were not high), serum ceruloplasmin and 24 hr urine for copper -ensure has osteoporosis screening after d/c >>>s/p nocturnal pulseox d/t resp acidosis (had hypoxia this am not acidemia on abg though) Hypokalemia -in part d/t bicarb tx >> started 40 mEq daily K and will cont -also a part most likely of her underlying acid base disorder -consider amiloride rx once dx w/u further along Uncontrolled DM -per primary service > BG controlled here s/p remote colectomy now w/ possible gallstone pancreatitis for cholecystectomy in am Appreciate consult; will follow with you. Care coordinated w/ Dr Riley
[2017-06-15 20:27] LABS: CREATININE RANDOM URINE 55.2 mg/dl; POTASSIUM RANDOM URINE 28.3 mEq/L
[2017-06-15] MEDS: DULOXETINE HCL 60 MG CAP PO SCH (21:01)
--- NOTE | 2017-06-15 23:11 | Progress Note ---
Internal Med Progress Note Date of Service: Jun 15, 2017. Provider Documentation: SUBJECTIVE: Had EGD today Denies of any discomfort no complaint of nausea vomiting No fever chills OBJECTIVE: Vital Signs-as noted below Exam: General-Pleasant no sign of any distress Eyes-sclera nonicteric, PERRLA/EOMI ENT-moist oral mucosa Neck-no JVD, no carotid bruit, no thyromegaly Lungs-clear to auscultate no wheezes or rales Heart-regular S1-S2 Abdomen-soft nontender, bowel sounds active Extremities- Neuro-alert awake oriented 3, no focal neurological deficit Lab data as noted below. ASSESSMENT & PLAN: 5. Elevated lipase/gallstone pancreatitis CT abdomen pelvis without contrast: No evidence of pancreatitis -Cholelithiasis Lipase level: 1483 improved to 755-> 1027 Does not have any GI symptoms Continue with low-fat diet GI eval requested. Appreciate input Underwent EGD today Showed mild candidiasis, normal stomach, normal examined duodenum General surgery consulted, Plan for laparoscopic cholecystectomy during this hospital stay Acute kidney injury/CKD stage IV resolved-cr improved to baseline Baseline creatinine 1.6 -2.2 Presented with elevated creatinine of 2.69 Possible secondary to GI loss, reports of nausea vomiting poor p.o. intake for last few days Appreciate input from nephrology Avoid NSAIDs, contrast studies. Type 2 diabetes/poorly controlled Hemoglobin A1c 13 on 04/17/2017 Appreciate pharmacy input for glycemic management Patient is continued with basal Lantus, insulin sliding scale. Chronic metabolic acidosis/hyperchloremia Resolved -Appreciate input from nephrology Dr. Fiore Bicarb was 9 on presentation, Was treated with IV bicarb half-normal saline with 75 Meq per liter sodium bicarb -Bicarbonate level 19 -> 24 -IV bicarbonate drip discontinued, transitioned to oral bicarb -Nephrology following closely Hypokalemia: -Ordered for replacement -Follow daily labs Hypertension: On amlodipine and propranolol. CODE STATUS: Full code DVT PROPHYLAXIS SCD and teds Ambulate DISPOSITION Expected to be discharged home when medically stable Medicine follow-up with Dr. Garsia Vital Signs: Date Time Temp Pulse Resp B/P (MAP) Pulse Ox O2 Delivery O2 Flow Rate FiO2 06/16/17 16:00 Room Air 06/16/17 14:51 37.1 75 16 149/67 (94) 98 Room Air 06/16/17 12:46 36.8 68 16 131/81 (98) 94 Room Air 06/16/17 11:40 36.8 65 20 143/79 (100) 91 Room Air 06/16/17 11:13 36.6 60 20 129/69 (89) 98 Nasal Cannula 2.0 06/16/17 11:01 128/72 06/16/17 10:57 48 17 06/16/17 10:57 60 17 99 06/16/17 10:56 129/61 06/16/17 10:52 62 13 06/16/17 10:52 65 13 100 06/16/17 10:51 130/69 06/16/17 10:47 59 15 97 06/16/17 10:47 47 15 06/16/17 10:46 131/79 06/16/17 10:42 66 18 97 06/16/17 10:42 64 18 06/16/17 10:41 129/64 06/16/17 10:40 36.2 62 20 129/64 (83) 100 Nasal Cannula 2 Oxymask 06/16/17 10:37 51 15 06/16/17 10:37 55 15 99 06/16/17 10:36 116/69 06/16/17 10:32 50 15 06/16/17 10:32 56 15 100 06/16/17 10:31 159/70 06/16/17 10:31 159/70 06/16/17 10:28 49 17 06/16/17 10:28 49 17 06/16/17 10:28 56 17 100 06/16/17 10:28 56 17 100 06/16/17 10:26 126/70 06/16/17 10:26 126/70 06/16/17 10:23 51 17 06/16/17 10:23 51 17 06/16/17 10:23 63 17 99 06/16/17 10:23 63 17 99 06/16/17 10:21 144/64 06/16/17 10:21 144/64 06/16/17 10:18 61 20 06/16/17 10:18 63 20 100 06/16/17 10:18 61 20 06/16/17 10:18 63 20 100 06/16/17 10:17 145/72 06/16/17 10:17 145/72 06/16/17 10:14 136/81 06/16/17 10:14 136/81 06/16/17 10:13 60 17 100 06/16/17 10:13 54 17 06/16/17 10:13 60 17 100 06/16/17 10:13 36.2 57 18 136/81 (101) 100 Oxymask 10 06/16/17 10:13 54 17 06/16/17 08:00 Room Air 06/16/17 07:17 36.8 67 18 146/98 (114) 98 Room Air 06/16/17 00:14 38.1 86 20 176/102 (126) 97 Room Air 06/16/17 00:00 Room Air Lab Results: Results Past 24 Hours Test 06/15/17 19:33 06/16/17 06:05 06/16/17 07:05 06/16/17 07:46 Range/Units Bedside Glucose 136 106 120 70-90 mg/dl Sodium Level 136 136-145 mmol/L Potassium Level 3.3 3.5-5.1 mmol/L Chloride Level 105 98-107 mmol/L Carbon Dioxide Level 21 21-32 mmol/L Anion Gap 9.0 3-11 mmol/L Blood Urea Nitrogen 15 7-18 mg/dl Creatinine 0.84 0.60-1.20 mg/dl Est Creatinine Clear Calc Drug Dose 86.9 ml/min Estimated GFR () 98.0 Estimated GFR (Non- 84.5 BUN/Creatinine Ratio 17.5 10-20 Random Glucose 107 70-99 mg/dl Calcium Level 10.6 8.5-10.1 mg/dl Triglycerides Level 263 0-150 mg/dl Cholesterol Level 194 0-200 mg/dl HDL Cholesterol 45 mg/dl LDL Cholesterol, Calculated 96 mg/dl VLDL Cholesterol, Calculated 53 mg/dl Cholesterol/HDL Ratio 4.3 Lipase 351 73-393 U/L Test 06/16/17 10:16 06/16/17 11:30 06/16/17 17:10 Range/Units Bedside Glucose 174 170 110 70-90 mg/dl
[2017-06-16] VITALS (7 sets, daily range): BP systolic 129–176; BP diastolic 67–102; PULSE 60–86; TEMP 36.6–38.1; O2SAT 91–100
[2017-06-16] MEDS: ACETAMINOPHEN 325 MG TAB PO PRN (00:31)
[2017-06-16] MEDS: INSULIN ASPART 100 UNITS/ML 3 ML PEN SC SCH ×4 (06:14→21:17)
--- NOTE | 2017-06-16 06:34 | Surgery Progress Note ---
Surgery Progress Note Date of Service Jun 16, 2017. Subjective + feeling well, + pain controlled, + diet (NPO for procedure today), No complaints, No nausea, No vomiting No changes or new complaints today. EGD with Dr. Rucker yesterday showed mild candidiasis, normal esophagus, normal stomach and normal duodenum. Objective Vital Signs: Date Time Temp Pulse Resp B/P (MAP) Pulse Ox O2 Delivery O2 Flow Rate FiO2 06/16/17 00:14 38.1 86 20 176/102 (126) 97 Room Air 06/16/17 00:00 Room Air 06/15/17 15:53 36.8 68 16 138/94 (109) 98 Room Air 06/15/17 15:50 98 Room Air 06/15/17 14:21 71 16 166/97 (120) 98 Room Air 06/15/17 14:06 71 16 154/89 (110) 97 Room Air 06/15/17 13:51 71 16 104/61 (75) 97 Room Air 06/15/17 12:40 36.7 67 18 168/103 (124) 97 Room Air 06/15/17 12:39 36.7 67 16 168/103 (124) 97 Room Air 06/15/17 08:00 Room Air 06/15/17 07:11 36.7 67 18 191/106 (134) 98 Room Air General Appearance: WD/WN, no apparent distress Head: normocephalic, atraumatic Respiratory/Chest: no respiratory distress Abdomen: non distended, soft, no organomegaly, + tenderness (mild generalized TTP ) Laboratory Results: Results Past 24 Hours Test 06/15/17 07:19 06/15/17 07:54 06/15/17 12:07 06/15/17 12:34 Range/Units White Blood Count 7.60 4.8-10.8 K/uL Red Blood Count 3.48 4.2-5.4 M/uL Hemoglobin 9.4 12.0-16.0 g/dL Hematocrit 28.6 37-47 % Mean Corpuscular Volume 82.2 80-100 fL Mean Corpuscular Hemoglobin 27.0 25-34 pg Mean Corpuscular Hemoglobin Concent 32.9 32-36 g/dl Platelet Count 366 130-400 K/uL Mean Platelet Volume 8.7 7.4-10.4 fL Neutrophils (%) (Auto) 73.8 % Lymphocytes (%) (Auto) 17.6 % Monocytes (%) (Auto) 6.1 % Eosinophils (%) (Auto) 1.8 % Basophils (%) (Auto) 0.3 % Neutrophils # (Auto) 5.61 1.4-6.5 K/uL Lymphocytes # (Auto) 1.34 1.2-3.4 K/uL Monocytes # (Auto) 0.46 0.11-0.59 K/uL Eosinophils # (Auto) 0.14 0-0.5 K/uL Basophils # (Auto) 0.02 0-0.2 K/uL RDW Standard Deviation 55.3 36.4-46.3 fL RDW Coefficient of Variation 18.2 11.5-14.5 % Immature Granulocyte % (Auto) 0.4 % Immature Granulocyte # (Auto) 0.03 0.00-0.02 K/uL Arterial Blood pH 7.42 7.35-7.45 Arterial Blood Partial Pressure CO2 37 35-46 mmHg Arterial Blood Partial Pressure O2 75 80-95 mm/Hg Arterial Blood HCO3 24 19-24 mmol/L Arterial Blood Oxygen Saturation 94.2 90-95 % Arterial Blood Base Excess -0.7 -9-1.8 mEq/L Arterial Blood Gas Delivery ROOM AIR Mickey Test POS POS Sodium Level 137 136-145 mmol/L Potassium Level 3.0 3.5-5.1 mmol/L Chloride Level 107 98-107 mmol/L Carbon Dioxide Level 24 21-32 mmol/L Anion Gap 6.0 3-11 mmol/L Blood Urea Nitrogen 12 7-18 mg/dl Creatinine 0.67 0.60-1.20 mg/dl Est Creatinine Clear Calc Drug Dose 109.0 ml/min Estimated GFR () 123.9 Estimated GFR (Non- 106.9 BUN/Creatinine Ratio 18.5 10-20 Random Glucose 127 70-99 mg/dl Osmolality 292 280-300 mOsm/kg Uric Acid 3.2 2.6-7.2 mg/dl Calcium Level 9.9 8.5-10.1 mg/dl Ionized Calcium 1.28 1.12-1.32 mmol/l Phosphorus Level 1.9 2.5-4.9 mg/dl Amylase Level 61 25-115 U/L Lipase 444 73-393 U/L Beta-Hydroxybutyric Acid 3.69 0.2-2.81 mg/dL Bedside Glucose 138 141 137 70-90 mg/dl Test 06/15/17 15:22 06/15/17 17:20 06/15/17 19:33 06/16/17 04:44 Range/Units Bedside Glucose 120 136 70-90 mg/dl Test 06/16/17 06:05 Range/Units Bedside Glucose 106 70-90 mg/dl Assessment & Plan symptomatic cholelithiasis, possible gallstone pancreatitis. EGD yesterday showed no significant findings. Plan to proceed with laparoscopic cholecystectomy with intraoperative cholangiogram today. Will discuss findings with Dr. Santiago. Please contact with questions or concerns.
[2017-06-16] MEDS ORDERED: LIDOCAINE/EPINEPHRINE 1% 20 ML VIAL ONE (07:01)
[2017-06-16] MEDS ORDERED: CONRAY 60% 50 ML VIAL ONE (07:01)
[2017-06-16] MEDS: NICOTINE 7 MG/24 HR TDSY TD SCH (07:02)
[2017-06-16] MEDS: SODIUM BICARBONATE 650 MG TAB PO SCH ×3 (07:04→20:18)
[2017-06-16] MEDS: PANTOprazole SOD 40 MG TAB PO SCH (07:04)
[2017-06-16] MEDS: PREGABALIN 50 MG CAP PO SCH ×3 (07:04→21:16)
[2017-06-16] MEDS: POTASSIUM CHLORIDE 10 MEQ TABCR PO SCH (07:05)
[2017-06-16] MEDS: AMLODIPINE BESYLATE 5 MG TAB PO SCH (07:05)
[2017-06-16] MEDS: PROPRANOLOL HCL 60 MG LA CAP PO SCH ×2 (07:05→20:18)
[2017-06-16] MEDS ORDERED: CISATRACURIUM BESYLATE IV SOLN 2 MG/ML 10 ML VIAL ONE (07:44)
[2017-06-16] MEDS ORDERED: LIDOCAINE HCL 2% 2 ML VIAL (20MG/ML) ONE (07:44)
[2017-06-16] MEDS ORDERED: DEXAMETHASONE SOD INJ 4 MG/ML VIAL ONE (07:44)
[2017-06-16] MEDS ORDERED: ONDANSETRON INJ 2 MG/ML 2 ML VIAL ONE (07:44)
[2017-06-16] MEDS ORDERED: GLYCOPYRROLATE INJ 0.2 MG/ML VIAL ONE ×2 (07:44→09:26)
[2017-06-16] MEDS ORDERED: NEOSTIGMINE METHYLSULFATE 5 MG/5 ML SYR ONE (07:44)
[2017-06-16] MEDS ORDERED: FENTANYL CITRATE INJ 50 MCG/1 ML 2 ML VIAL ONE ×2 (07:45→10:26)
[2017-06-16] MEDS ORDERED: MIDAZOLAM HCL 1 MG/ML 2ML VIAL ONE (07:45)
[2017-06-16] MEDS: INSULIN GLARGINE SOLOSTAR 100 UNITS/ML 3 ML PEN SC SCH ×3 (08:00→20:41)
[2017-06-16 08:26] LABS: CALCIUM 10.6 mg/dl (8.5-10.1); CREATININE 0.84 mg/dl (0.60-1.20); POTASSIUM 3.3 mmol/L (3.5-5.1)
--- NOTE | 2017-06-16 08:30 | History & Physical Bridge Note ---
H&P Re-Evaluation Bridge Note: I have examined the patient, reviewed the History & Physical and in the interval since the performance of the History & Physical I have noted the following changes of clinical significance: No changes noted told pt of EGD results no one here with her
[2017-06-16] MEDS ORDERED: SUCCINYLCHOLINE 100MG/5ML SYR IV ONE (09:33)
--- NOTE | 2017-06-16 09:55 | DIAGNOSTIC IMAGING REPORT ---
CHOLANGIOGRAM O.R. HISTORY: Post cholecystectomy. FLUOROSCOPY TIME: 3 seconds. FINDINGS: Fluoroscopy was provided for an intraoperative cholangiogram status post cholecystectomy. Contrast was injected through the cystic duct remnant. The common bile duct is normal in course and caliber. There are no filling defects seen within the common bile duct to suggest a retained stone. Contrast extends into the small bowel. There is no intrahepatic bile duct dilatation. IMPRESSION: Fluoroscopy provided for an intraoperative cholangiogram status post cholecystectomy. No filling defects within the common bile duct. Good flow contrast to the small bowel. The above report was generated using voice recognition software. It may contain grammatical, syntax or spelling errors. Electronically signed by: Matias Ruth M.D. 06/16/2017 9:54 AM Dictated Date/Time: 06/16/2017 9:54 AM
--- NOTE | 2017-06-16 09:58 | [facility] Post Operative Brief Note ---
Immediate Operative Summary Operative Date Jun 16, 2017. Pre-Operative Diagnosis Chronic Cholelithiasis with Recurrent Pancreatitis Post-Operative Diagnosis Same as Preop Procedure(s) Performed Laparoscopic Cholecystectomy with Cholangiogram Surgeon Dr. Flaco Santiago Embroidery Supervisor Surgeon(s) Dr. Nino Carter Estimated Blood Loss 5ML Findings See Below (ccc) ccc Specimens Permanent Solution: A.) Gallbladder and Contents Anesthesia Type General
[2017-06-16] MEDS ORDERED: PHENYLEPHRINE 100MCG/ML 5ML SYR IV PRN (10:30)
[2017-06-16] MEDS ORDERED: HYDROmorphone INJ 1 MG/ML SYR IV PRN (10:30)
[2017-06-16] MEDS ORDERED: EpHEDrine SULFATE INJ 50 MG/ML AMP IV PRN (10:30)
[2017-06-16] MEDS ORDERED: FENTANYL CITRATE INJ 50 MCG/1 ML 2 ML VIAL IV PRN (10:30)
[2017-06-16] MEDS ORDERED: PROMETHAZINE HCL INJ 12.5 MG in SODIUM CHLORIDE 0.9% 50ML 50 ML IV PRN (10:30)
[2017-06-16] MEDS ORDERED: ATROPINE SULFATE 0.1 MG/ML 5ML SYR IV PRN (10:30)
[2017-06-16] MEDS ORDERED: ONDANSETRON INJ 2 MG/ML 2 ML VIAL IV PRN (10:30)
--- NOTE | 2017-06-16 10:46 | OPERATIVE REPORT ---
DATE OF OPERATION: 06/16/2017 SURGEON: Flaco Santiago MD. TRAPPER BIRD: Nino Carter MD. PREOPERATIVE DIAGNOSIS: Chronic cholecystitis, pancreatitis. POSTOPERATIVE DIAGNOSIS: Same. OPERATIVE PROCEDURE: Laparoscopic cholecystectomy, intraoperative cholangiogram. SUMMARY: After the induction of general anesthesia, systemic antibiotics given. The abdomen was prepped with Betadine solution and properly draped. We made a small incision above the umbilicus and lateral to the midline incision. The patient had a subtotal colectomy. We at this point made a small incision enough to place a Veress needle, went into the abdomen without any difficulty. CO2 insufflated without difficulty followed by 3 mm port followed by the camera. The camera at 3 mm was very dark today; therefore, we eventually converted to a 10 mm site but before that we placed under direct visualization, a 3 mm right upper quadrant port that we could place the camera in that area and visualize the abdominal wall where we initially went in. When we went in, there was no evidence of any adhesions, but just inferior to that there was a loop of bowel strictly adherent to what looked like an umbilical opening. A loop of bowel appeared decompressed, but it certainly was elevated up for an area of approximately 5 cm or so. The rest of the small bowel was slightly dilated that we could see, but there was no evidence of any definite transition point and by CAT scan, the patient had no evidence of bowel obstruction. She did have fecalization of the colon. At this point, under direct visualization, we placed a 5 mm epigastric and placed another 5 mm right upper quadrant lateral port. The gallbladder was elevated. Adhesions to the gallbladder were taken down by blunt dissection and some sharp so we went down to the triangle of Calot. We dissected out the area, we were able to identify the cystic duct. We clipped it proximally. A small opening in the cystic duct was made. A #4 urethral catheter transversing the abdominal wall and a 14 Angiocath was positioned. Serial x-rays were taken which showed free flow into the duodenum. No obvious obstruction. This cholangiocatheter was removed. The cystic duct was doubly clipped and divided. Cystic artery had an excess tissue in the back which was likely possibility of a lymph node. We clamped it all together. This was right at the takeoff of the gallbladder and eventually identified that this was indeed the lymph node. Gallbladder removed in antegrade fashion using the posterior wall using electrocautery at 25. Some bleeding along the tissue. There was remnant of the posterior peritoneum was controlled as we went on and then it eventually would all be controlled. The gallbladder was taken out, placed in an Endopouch, taken out intact through the epigastric port. The patient had definitely a large solitary stone. There were few other fragments that I could see after we were down to the case and visualized the rest of the gallbladder. The subhepatic and suprahepatic area was then checked. Hemostasis appeared satisfactory. Individual trocars removed and last the umbilical trocar. Fascial stitch 0 Vicryl was used for the epigastric area, the other ones 4-0 Monocryl. Steri-Strips applied. The procedure was tolerated well by the patient. Estimated blood loss approximately 5 mL. The patient was taken to recovery in good condition. I attest to the content of the Intraoperative Record and any orders documented therein. Any exception s are noted below.
--- NOTE | 2017-06-16 11:04 | Anesthesiology Progress Note ---
Anesthesia Post Op Note Date & Time Jun 16, 2017 at 11:04 Vital Signs Pain Intensity: 1 Vital Signs Past 12 Hours Date Time Temp Pulse Resp B/P (MAP) Pulse Ox O2 Delivery O2 Flow Rate FiO2 06/16/17 11:01 128/72 06/16/17 10:57 48 17 06/16/17 10:57 60 17 99 06/16/17 10:56 129/61 06/16/17 10:52 62 13 06/16/17 10:52 65 13 100 06/16/17 10:51 130/69 06/16/17 10:47 59 15 97 06/16/17 10:47 47 15 06/16/17 10:46 131/79 06/16/17 10:42 66 18 97 06/16/17 10:42 64 18 06/16/17 10:41 129/64 06/16/17 10:40 36.2 62 20 129/64 (83) 100 Nasal Cannula 2 Oxymask 06/16/17 10:37 51 15 06/16/17 10:37 55 15 99 06/16/17 10:36 116/69 06/16/17 10:32 50 15 06/16/17 10:32 56 15 100 06/16/17 10:31 159/70 06/16/17 10:31 159/70 06/16/17 10:28 49 17 06/16/17 10:28 49 17 06/16/17 10:28 56 17 100 06/16/17 10:28 56 17 100 06/16/17 10:26 126/70 06/16/17 10:26 126/70 06/16/17 10:23 51 17 06/16/17 10:23 51 17 06/16/17 10:23 63 17 99 06/16/17 10:23 63 17 99 06/16/17 10:21 144/64 06/16/17 10:21 144/64 06/16/17 10:18 61 20 06/16/17 10:18 63 20 100 06/16/17 10:18 61 20 06/16/17 10:18 63 20 100 06/16/17 10:17 145/72 06/16/17 10:17 145/72 06/16/17 10:14 136/81 06/16/17 10:14 136/81 06/16/17 10:13 60 17 100 06/16/17 10:13 54 17 06/16/17 10:13 60 17 100 06/16/17 10:13 36.2 57 18 136/81 (101) 100 Oxymask 10 06/16/17 10:13 54 17 06/16/17 08:00 Room Air 06/16/17 07:17 36.8 67 18 146/98 (114) 98 Room Air 06/16/17 00:14 38.1 86 20 176/102 (126) 97 Room Air 06/16/17 00:00 Room Air Notes Mental Status: alert / awake / arousable, participated in evaluation Pt Amnestic to Procedure: Yes Nausea / Vomiting: adequately controlled Pain: adequately controlled Airway Patency, RR, SpO2: stable & adequate BP & HR: stable & adequate Hydration State: stable & adequate Anesthetic Complications: no major complications apparent
--- NOTE | 2017-06-16 13:11 | Pharmacy Progress Note ---
Pharmacy Glycemic Short Note 2 Date of Service Jun 16, 2017. OUTPATIENT ANTIDIABETIC REGIMEN: * Tresiba 110 units daily * Humalog 20 units with meals * TDD = 170 units * A1c = 13.8 % 04/17/17 * Note: confirmed with previous records that patient is a type 2 diabetic, diagnosed in 2013 ASSESSMENT: 06/16/17 * Patient was NPO for a lap toro today * AM Lantus was not given so I asked the nurse to give this when she returned from the OR, just a little bit ago * BSGs were stable yesterday but I expect they may increase today because she received a dose of Decadron in the OR * Will continue with sliding scale for Lantus order in case she needs more tonight * Tighten CR to provide additional prandial insulin while steroids on board * Add overnight accucheck in case additional coverage is necessary PLAN FOR INPATIENT GLYCEMIC CONTROL: * Basal insulin * Lantus SQ BID per scale * 5 units for BSG < 100 * 15 units for BSG 100-150 * 25 units for BSG > 150 * Bolus insulin * NovoLog per scale ACHS + 0200 * Goal Range: Low 110 mg/dL - High 150 mg/dL * Correction Factor: 15 mg/dL/unit * TIGHTEN Nutritional / Prandial insulin per carb ratio of 1 unit per 3 grams CHO consumed
[2017-06-16] MEDS: HYDROmorphone INJ 0.5 MG/0.5 ML SYR IV PRN ×2 (14:40→20:16)
--- NOTE | 2017-06-16 16:44 | Progress Note ---
Internal Med Progress Note Date of Service: Jun 16, 2017. Provider Documentation: SUBJECTIVE: Had laparoscopic cholecystectomy done earlier today Has minimal pain and discomfort in abdomen Tolerating diet Has not been able to pass gas, no bowel movement yet OBJECTIVE: Vital Signs-as noted below Exam: General-Pleasant no sign of any distress Eyes-sclera nonicteric, PERRLA/EOMI ENT-moist oral mucosa Neck-no JVD, no carotid bruit, no thyromegaly Lungs-clear to auscultate no wheezes or rales Heart-regular S1-S2 Abdomen-laparoscopic incision sites appear to be well-healing, no drainage, no swelling, no erythema Extremities-no lower extremity edema, no rash or deformity Neuro-alert awake oriented 3, no focal neurological deficit Lab data as noted below. ASSESSMENT & PLAN: 5. Elevated lipase/gallstone pancreatitis CT abdomen pelvis without contrast: No evidence of pancreatitis -Cholelithiasis Lipase level: 1483 improved to 755-> 1027 GI eval appreciated Status post EGD :Showed mild candidiasis, normal stomach, normal examined duodenum General surgery consulted, Status post laparoscopic cholecystectomy today Acute kidney injury/CKD stage IV resolved-cr improved to baseline Baseline creatinine 1.6 -2.2 Presented with elevated creatinine of 2.69 Possible secondary to GI loss, reports of nausea vomiting poor p.o. intake for last few days Appreciate input from nephrology Avoid NSAIDs, contrast studies. Type 2 diabetes/poorly controlled Hemoglobin A1c 13 on 04/17/2017 Appreciate pharmacy input for glycemic management Patient is continued with basal Lantus, insulin sliding scale. Chronic metabolic acidosis/hyperchloremia Resolved -Appreciate input from nephrology Dr. Adebayo Padillaarb was 9 on presentation, Was treated with IV bicarb half-normal saline with 75 Meq per liter sodium bicarb -Bicarbonate level 19 -> 24 -IV bicarbonate drip discontinued, transitioned to oral bicarb -Nephrology following closely Hypokalemia: -Ordered for replacement -Follow daily labs Hypertension: On amlodipine and propranolol. CODE STATUS: Full code DVT PROPHYLAXIS SCD and teds Ambulate DISPOSITION Expected to be discharged home when medically stable Medicine follow-up with Dr. Garsia Vital Signs: Lab Results:
[2017-06-16] MEDS: DULOXETINE HCL 60 MG CAP PO SCH (21:16)
[2017-06-17] MEDS ORDERED: INSULIN ASPART 100 UNITS/ML 3 ML PEN SC ONE (02:00)
[2017-06-17] MEDS: HYDROmorphone INJ 0.5 MG/0.5 ML SYR IV PRN (02:26)
[2017-06-17] MEDS: NICOTINE 7 MG/24 HR TDSY TD SCH (08:00)
[2017-06-17] MEDS: PROPRANOLOL HCL 60 MG LA CAP PO SCH (08:00)
[2017-06-17 08:02] VITALS: BP 129/82; PULSE 50; TEMP 36.6; O2SAT 98
[2017-06-17] MEDS: PANTOprazole SOD 40 MG TAB PO SCH (08:13)
[2017-06-17] MEDS: POTASSIUM CHLORIDE 10 MEQ TABCR PO SCH (08:14)
[2017-06-17] MEDS: SODIUM BICARBONATE 650 MG TAB PO SCH (08:14)
[2017-06-17] MEDS: AMLODIPINE BESYLATE 5 MG TAB PO SCH (08:14)
[2017-06-17] MEDS: PREGABALIN 50 MG CAP PO SCH ×2 (08:17→14:10)
[2017-06-17] MEDS: INSULIN ASPART 100 UNITS/ML 3 ML PEN SC SCH ×2 (08:20→12:40)
[2017-06-17] MEDS: INSULIN GLARGINE SOLOSTAR 100 UNITS/ML 3 ML PEN SC SCH (08:21)
[2017-06-17] MEDS ORDERED: OXYC-57 PO (08:53)
[2017-06-17] MEDS ORDERED: OXYCODONE/ACETAMINOPHEN 5-325 TAB PO PRN ×2 (09:00)
--- NOTE | 2017-06-17 09:00 | Surgery Progress Note ---
Surgery Progress Note Date of Service Jun 17, 2017. Subjective Post OP Day: 1 (s/p lap toro) + feeling well, + ambulating (to bathroom no hallway), + flatus, + pain controlled (with iv medication), + diet (regular diet), No complaints, No chest pain, No SOB, No nausea, No vomiting Objective Vital Signs: Date Time Temp Pulse Resp B/P (MAP) Pulse Ox O2 Delivery O2 Flow Rate FiO2 06/17/17 08:02 36.6 50 18 129/82 (98) 98 Room Air 06/17/17 00:15 Room Air 06/16/17 23:08 37.3 82 18 140/76 (97) 100 Room Air 06/16/17 16:00 Room Air 06/16/17 14:51 37.1 75 16 149/67 (94) 98 Room Air 06/16/17 12:46 36.8 68 16 131/81 (98) 94 Room Air 06/16/17 11:40 36.8 65 20 143/79 (100) 91 Room Air 06/16/17 11:13 36.6 60 20 129/69 (89) 98 Nasal Cannula 2.0 06/16/17 11:01 128/72 06/16/17 10:57 48 17 06/16/17 10:57 60 17 99 06/16/17 10:56 129/61 06/16/17 10:52 62 13 06/16/17 10:52 65 13 100 06/16/17 10:51 130/69 06/16/17 10:47 59 15 97 06/16/17 10:47 47 15 06/16/17 10:46 131/79 06/16/17 10:42 66 18 97 06/16/17 10:42 64 18 06/16/17 10:41 129/64 06/16/17 10:40 36.2 62 20 129/64 (83) 100 Nasal Cannula 2 Oxymask 06/16/17 10:37 51 15 06/16/17 10:37 55 15 99 06/16/17 10:36 116/69 06/16/17 10:32 50 15 06/16/17 10:32 56 15 100 06/16/17 10:31 159/70 06/16/17 10:31 159/70 06/16/17 10:28 49 17 06/16/17 10:28 49 17 06/16/17 10:28 56 17 100 06/16/17 10:28 56 17 100 06/16/17 10:26 126/70 06/16/17 10:26 126/70 06/16/17 10:23 51 17 06/16/17 10:23 51 17 06/16/17 10:23 63 17 99 06/16/17 10:23 63 17 99 06/16/17 10:21 144/64 06/16/17 10:21 144/64 06/16/17 10:18 61 20 06/16/17 10:18 63 20 100 06/16/17 10:18 61 20 06/16/17 10:18 63 20 100 06/16/17 10:17 145/72 06/16/17 10:17 145/72 06/16/17 10:14 136/81 06/16/17 10:14 136/81 06/16/17 10:13 60 17 100 06/16/17 10:13 54 17 06/16/17 10:13 60 17 100 06/16/17 10:13 36.2 57 18 136/81 (101) 100 Oxymask 10 06/16/17 10:13 54 17 General Appearance: WD/WN, no apparent distress Head: normocephalic, atraumatic Neck: trachea midline Respiratory/Chest: lungs clear, normal breath sounds, no respiratory distress, no accessory muscle use Cardiovascular: regular rate, rhythm, no murmur Abdomen: normal bowel sounds, non distended, soft, no organomegaly, no pulsatile mass, + tenderness (at incision sites, appropriate post op) Incision(s): clean, dry, findings (steri strips intact) Laboratory Results: Results Past 24 Hours Test 06/16/17 10:16 06/16/17 11:30 06/16/17 17:10 06/16/17 19:54 Range/Units Bedside Glucose 174 170 110 103 70-90 mg/dl Test 06/17/17 02:15 06/17/17 07:47 06/17/17 08:39 Range/Units Bedside Glucose 148 136 70-90 mg/dl Assessment & Plan POD # 1 s/p lap toro -VS stable, tolerating diet, pain controlled with IV meds, no nausea or vomiting - afebrile post op Plan: Encouraged to ambulate hallway Ordered Percocet as needed for pain, advised to try oral meds prior to discharge for pain management From surgery standpoint, okay for discharge discharge instructions reviewed Rx for Percocet prn pain Work note given To follow up with Dr. Santiago office Discussed with Dr. Griffin who agrees with above
[2017-06-17 09:58] LABS: CALCIUM 11.1 mg/dl (8.5-10.1); CREATININE 1.09 mg/dl (0.60-1.20); POTASSIUM 3.2 mmol/L (3.5-5.1)
--- NOTE | 2017-06-17 10:07 | SURGERY PROGRESS NOTE ---
DATE: 06/17/2017 [place] is up and around. She just came out of the bathroom and washed her hair. She feels fine. No abdominal discomfort. Intraoperative findings were discussed with the patient. The trocar sites are healing well. Her last vitals showed a temperature of 36.6, pulse 50, respiration 18, blood pressure 129/82, O2 sats 98 on room air. At this point, from my point of view, the patient to be discharged. We will see her back in the office in 1 week. Instructions have been written.
[2017-06-17] MEDS ORDERED: POTASSIUM CHLORIDE 10 MEQ TABCR PO STA (14:26)
[2017-06-17] MEDS ORDERED: POTA10CA28 PO (14:30)
--- NOTE | 2017-06-17 14:32 | Discharge Instructions ---
Discharge Instructions Date of Service Jun 17, 2017. Admission Reason for Admission: Acute Renal Failure Discharge Discharge Diagnosis / Problem: GALL STONE PANCREATITS/CHOLECYSTECTOMY/ACUTE RENAL FAILURE -RESOLVED Discharge Goals Goal(s): Decrease discomfort, Increase independence, Improve disease control, Therapeutic intervention Activity Recommendations Activity Limitations: as noted below Lifting Limitations: no more than 10 pounds (FOR 2 WEEKS ) . Instructions / Follow-Up Instructions / Follow-Up HOSPITAL FOLLOW UP WITH FAMILY PHYSICIAN DR MARIANO IN A WEEK PLEASE CALL TO SCHEDULE AN APPOINTMENT NEPHROLOGY FOLLOW UP : 06/21/2017 10:40 AM Jazmin Everett, DO Nephrology, [facility] LAB WORK : BASIC METABOLIC PANEL , MG , ON Monday06/19/17 DO NOT TAKE ASPIRIN ,MOTRIN, ALEVE, ADVIL , IBUPROPHEN , NAPROXEN NO NSAID'S - WILL CAUSE WORSENING OF YOUR RENAL FUNCTION SURGERY FOLLOW UP : WITH DR CONN IN A WEEK , PLEASE CALL TO SCHEDULE AN APPOINTMENT Current Hospital Diet Patient's current hospital diet: Diabetes Type 1 Diet, Low Fat Diet Discharge Diet Recommended Diet: Low Fat Diet (FOR 3-4 WEEKS ) Procedures Procedures Performed: Laparoscopic Cholecystectomy with Cholangiogram Pending Studies Studies pending at discharge: no Laboratory Results Hemoglobin A1c Test 04/17/17 13:50 Range/Units Estimated Average Glucose 349 mg/dl Hemoglobin A1c 13.8 H 4.5-5.6 % Lipid Panel Test 06/16/17 07:05 Range/Units Triglycerides Level 263 H 0-150 mg/dl Cholesterol Level 194 0-200 mg/dl HDL Cholesterol 45 mg/dl Cholesterol/HDL Ratio 4.3 LDL Cholesterol, Calculated 96 mg/dl Work Instructions Additional Instructions: To whom this may concern, [place] was admitted to [facility] in the evening on 06/11/2017. Underwent surgical procedure on 06/16/2017. She may return to work on Monday06/21/2017 with restrictions of no heavy lifting over 10 pounds or strenuous activity for 2 weeks. Thank you, Rachel Tariq, [facility] General Surgery Medical Emergencies . Who to Call and When: Medical Emergencies: If at any time you feel your situation is an emergency, please call 911 immediately. . Non-Emergent Contact Non-Emergency issues call your: Primary Care Provider . . "Provider Documentation" section prepared by Marychuy Riley. .
--- NOTE | 2017-06-17 14:42 | Discharge Summary ---
Discharge Summary Date of Service Jun 17, 2017. Discharge Summary Admission Date: Jun 11, 2017 at 20:52 Discharge Date: Jun 17, 2017 Discharge Disposition: Home Principal Diagnosis: GALL STONE PANCREATICS/CHOLECYSTECTOMY/ACUTE RENAL FAILURE -RESOLVED Procedures: Procedures Performed: 1.Laparoscopic Cholecystectomy with Cholangiogram-by Dr. Petty Procedure: Upper GI endoscopy Procedure Date: 06/15/[address] Rucker Consultations: Nephrology Gastroenterology General surgery Medication Reconciliation New Medications: Oxycodone/Acetaminophen 5MG/325MG (Percocet 5MG/325MG) Tab 1 TABLET PO Q4H PRN for Pain, #18 TAB Potassium Chloride (Micro-K Ext Rel) 10 Meq Capcr 40 MEQ PO DAILY for 30 Days, #30 TABS 1 Refill Continued Medications: Albuterol Hfa (Ventolin Hfa) 200 Puffs/85758 Mcg Aers 2 PUFFS INH Q4H PRN for SOB/Wheezing, #1 INHALER Amlodipine (Norvasc) 10 Mg Tab 10 MG PO DAILY, TAB Atorvastatin (Lipitor) 10 Mg Tab 10 MG PO DAILY, TAB Cholecalciferol (Vitamin D3) 1,000 Unit Tab 5000 INTER.UNIT PO DAILY for 90 Days, TAB 3 Refills Duloxetine Hcl (Cymbalta) 60 Mg Cap 60 MG PO QPM, CAP Esomeprazole Magnesium (Nexium) 40 Mg Capcr 40 MG PO QAM, CAP Fenofibrate (Tricor) 160 Mg Tab 160 MG PO DAILY, TAB Insulin Degludec (Tresiba Flextouch) 100 Unit/Ml Inj 110 UNITS PO DAILY Insulin Lispro (Human) (Humalog Kwikpen) 100 Unit/Ml Inj 20 UNITS SQ TIDM PLUS THE SLIDING SCALE Lisinopril (Lisinopril) 10 Mg Tab 10 MG PO DAILY for 30 Days, #30 TABS [place]-3 Fatty Acids (Fish Oil) 1,000 Mg Cap 1000 MG PO BID Pregabalin (Lyrica) 50 Mg Cap 50 MG PO TID, #90 Propranolol Hcl (Propranolol Hcl Er) 120 Mg Cap 120 MG PO BID Sodium Bicarbonate (Sodium Bicarbonate) 650 Mg Tab 1300 MG PO TID Referrals At Discharge Follow up Referrals: [employer] Referral - 06/21/17 with Jazmin Everett I., DO Surgery Referral - Within 1 Week with Flaco Conn M.D. Admission Information HPI (per Admitting provider): DATE OF ADMISSION: 06/11/2017 PRIMARY CARE DOCTOR: Dr. Garsia. CHIEF COMPLAINT: Dizziness, right breast pain, nausea. HISTORY OF PRESENT ILLNESS: History obtained from patient and records. Medical history significant for DM1, hypertension, ongoing tobacco abuse; chronic anemia (baseline hemoglobin of 8), GERD, CRI (baseline creatinine 1.6- 2.19), chronic metabolic acidosis as per records, hx severe C. difficile colitis status post bowel resection hx Salmonella bacteremia as per records. Recent confinement last May a few weeks ago for sepsis syndrome. Few day's history of nausea, vomiting, minimal upper abdominal discomfort, good bowel movement, no diarrhea. Patient noted right-sided breast pain which she gets from time to time when she is ill. No shortness of breath, no fever, no chills. Intermittent intake of ibuprofen for breast pain. Patient brought to the Emergency Room. MEDICAL HISTORY: As above. SURGERIES: Bowel surgery , breast surgery, tracheostomy for prolonged intubation, and back surgery. HOME MEDICATIONS: Include sodium bicarbonate, TriCor, Humalog insulin, fish oil, Lyrica, propranolol, Ventolin, Lipitor, Norvasc, vitamin D3, Cymbalta, Nexium. Tresiba ALLERGIES: BEE STING. FAMILY HISTORY: Colon CA, diabetes. PERSONAL AND SOCIAL HISTORY: One-fourth pack daily. No chronic intake of alcohol. 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 Physical Exam (per Admitting): REVIEW OF SYSTEMS: As per HPI, all 10 systems reviewed, all other ROS negative. PHYSICAL EXAMINATION: VITAL SIGNS: Blood pressure noted to be 144/82, pulse rate 70, RR 20, temperature 36.4, sats 98 on room air. GENERAL: Noted to be obese, comfortable, no respiratory distress. SKIN: Normal color, warm. HEENT: [place] palpebral conjunctivae. No ptosis. Dry mucosa. NECK: Short neck, supple. CHEST: Clear to auscultation. No tenderness. HEART: Regular rate and rhythm, no murmur. ABDOMEN: Some distention, minimal epigastric tenderness. EXTREMITIES: No edema, no tenderness. No gross deformity. NEUROLOGIC: Coherent, no gross focality. Hospital Course Physical exam: Exam: General-Pleasant no sign of any distress Eyes-sclera nonicteric, PERRLA/EOMI ENT-moist oral mucosa Neck-no JVD, no carotid bruit, no thyromegaly Lungs-clear to auscultate no wheezes or rales Heart-regular S1-S2 Abdomen-laparoscopic incision sites appear to be well-healing, no drainage, no swelling, no erythema Extremities-no lower extremity edema, no rash or deformity Neuro-alert awake oriented 3, no focal neurological deficit Assessment and plan: Elevated lipase/gallstone pancreatitis CT abdomen pelvis without contrast: No evidence of pancreatitis -Cholelithiasis Lipase level: 1483 improved to 755-> 1027 GI eval appreciated S/P EGD Showed mild candidiasis, normal stomach, normal examined duodenum General surgery consulted, S/P laparoscopic cholecystectomy ; recovering well post op - Stable to be discharged home by surgery Acute kidney injury/CKD stage IV -cr improved to baseline Baseline creatinine 1.6 -2.2 Presented with elevated creatinine of 2.69 Possible secondary to GI loss, reports of nausea vomiting poor p.o. intake for last few days Appreciate input from nephrology Avoid NSAIDs, contrast studies. Type 2 diabetes/poorly controlled Hemoglobin A1c 13 on 04/17/2017 Appreciate pharmacy input for glycemic management Patient is continued with basal Lantus, insulin sliding scale. Chronic metabolic acidosis/hyperchloremia Resolved -Appreciate input from nephrology Dr. Fiore Bicarb was 9 on presentation, Was treated with IV bicarb half-normal saline with 75 Meq per liter sodium bicarb -Bicarbonate level 19 -> 24 -IV bicarbonate drip discontinued, transitioned to oral bicarb -Nephrology following closely Hypokalemia: Corrected Hypertension: On amlodipine and propranolol. CODE STATUS: Full code DVT PROPHYLAXIS SCD and teds Ambulate DISPOSITION Stable to be discharged home today Nephrology follow-up with Dr. Everett Medicine follow-up with Dr. Garsia Total time spent on discharge = 35 minutes This includes examination of the patient, discharge planning, medication reconciliation, and communication with other providers. Discharge Instructions Discharge Instructions Date of Service Jun 17, 2017. Admission Reason for Admission: Acute Renal Failure Discharge Discharge Diagnosis / Problem: GALL STONE PANCREATICS/CHOLECYSTECTOMY/ACUTE RENAL FAILURE -RESOLVED Discharge Goals Goal(s): Decrease discomfort, Increase independence, Improve disease control, Therapeutic intervention Activity Recommendations Activity Limitations: as noted below Lifting Limitations: no more than 10 pounds (FOR 2 WEEKS ) . Instructions / Follow-Up Instructions / Follow-Up HOSPITAL FOLLOW UP WITH FAMILY PHYSICIAN DR GARSIA IN A WEEK PLEASE CALL TO SCHEDULE AN APPOINTMENT NEPHROLOGY FOLLOW UP : 06/21/2017 10:40 AM Jazmin Everett, DO Nephrology, [facility] LAB WORK : BASIC METABOLIC PANEL , MG , ON Monday06/19/17 DO NOT TAKE ASPIRIN ,MOTRIN, ALEVE, ADVIL , IBUPROPHEN , NAPROXEN NO NSAID'S - WILL CAUSE WORSENING OF YOUR RENAL FUNCTION SURGERY FOLLOW UP : WITH DR CONN IN A WEEK , PLEASE CALL TO SCHEDULE AN APPOINTMENT Current Hospital Diet Patient's current hospital diet: Diabetes Type 1 Diet, Low Fat Diet Discharge Diet Recommended Diet: Low Fat Diet (FOR 3-4 WEEKS ) Procedures Procedures Performed: Laparoscopic Cholecystectomy with Cholangiogram Pending Studies Studies pending at discharge: no Laboratory Results Hemoglobin A1c Test 04/17/17 13:50 Range/Units Estimated Average Glucose 349 mg/dl Hemoglobin A1c 13.8 H 4.5-5.6 % Lipid Panel Test 06/16/17 07:05 Range/Units Triglycerides Level 263 H 0-150 mg/dl Cholesterol Level 194 0-200 mg/dl HDL Cholesterol 45 mg/dl Cholesterol/HDL Ratio 4.3 LDL Cholesterol, Calculated 96 mg/dl Work Instructions Additional Instructions: To whom this may concern, [place] was admitted to [facility] in the evening on 06/11/2017. Underwent surgical procedure on 06/16/2017. She may return to work on Monday06/21/2017 with restrictions of no heavy lifting over 10 pounds or strenuous activity for 2 weeks. Thank you, Rachel Tariq, [facility] [address] [facility] General Surgery Medical Emergencies . Who to Call and When: Medical Emergencies: If at any time you feel your situation is an emergency, please call 911 immediately. . Non-Emergent Contact Non-Emergency issues call your: Primary Care Provider . . "Provider Documentation" section prepared by Marychuy Riley. .
[2017-06-17 14:48] VITALS: BP 129/82; PULSE 50; TEMP 36.6; O2SAT 98
[2017-06-19 05:36] LABS: ANTI-SS-A <1.0 NEG AI (<1.0 NEG); ANTI-SS-B <1.0 NEG AI (<1.0 NEG); LEAD BLOOD LESS THAN 1 MCG/DL (0-9)
== END 2017-06-17 15:29 | disposition home or self-care (01) | DRG 987 ==
LOC: C.EDB 17:39 → C.MS4W 20:52 → ENRESERV 21:06
PROVIDERS: ADMIT Internal Medicine; ATTEND Hospitalist
PROC: 0DB98ZX Excision of Duodenum, Via Natural or Artificial Opening Endoscopic, Diagnostic (ICD-10-PCS; 2017-06-15)
PROC: 0DB68ZX Excision of Stomach, Via Natural or Artificial Opening Endoscopic, Diagnostic (ICD-10-PCS; 2017-06-15)
PROC: 0FT44ZZ Resection of Gallbladder, Percutaneous Endoscopic Approach (ICD-10-PCS; principal; 2017-06-16 09:00)
DX: N17.9 Acute kidney failure, unspecified (principal); K85.10 Biliary acute pancreatitis without necrosis or infection; K80.10 Calculus of gallbladder with chronic cholecystitis without obstruction; E87.2 Acidosis; B37.0 Candidal stomatitis; N18.4 Chronic kidney disease, stage 4 (severe); E11.21 Type 2 diabetes mellitus with diabetic nephropathy; K92.9 Disease of digestive system, unspecified; B34.9 Viral infection, unspecified; E87.6 Hypokalemia; I12.9 Hypertensive chronic kidney disease with stage 1 through stage 4 chronic kidney disease, or unspecified chronic kidney disease; E11.22 Type 2 diabetes mellitus with diabetic chronic kidney disease; K21.9 Gastro-esophageal reflux disease without esophagitis; L73.2 Hidradenitis suppurativa; E66.9 Obesity, unspecified; F17.200 Nicotine dependence, unspecified, uncomplicated; Z51.81 Encounter for therapeutic drug level monitoring; Z79.899 Other long term (current) drug therapy; Z79.4 Long term (current) use of insulin; Z86.19 Personal history of other infectious and parasitic diseases; Z68.31 Body mass index [BMI] 31.0-31.9, adult; Z91.030 Bee allergy status; Z83.3 Family history of diabetes mellitus; Z80.0 Family history of malignant neoplasm of digestive organs

== ENCOUNTER 2017-06-30 13:41 | Inpatient (IN) | payer BC ==
[2017-06-30] VITALS (10 sets, daily range): BP systolic 106–138; BP diastolic 66–98; PULSE 61–71; TEMP 36.4; O2SAT 96–100; Ht 160 cm; Wt 80.8 kg
[~2017-06-30] VITALS: Ht 160 cm; Wt 80.8 kg
[~2017-06-30 13:41] MED LIST changes: +CHOL1000 PO; +INSU100I2 SQ; -INSU1INJ33 PO; +INSU1INJ33 SQ; -NVLGI/PEN SC; +OMEG10002 PO; +OXYC-57 PO; +POTA10CA28 PO
[2017-06-30] MEDS ORDERED: SODIUM CHLORIDE 0.9% 1000ML 1,000 ML IV STA (14:11)
--- NOTE | 2017-06-30 14:18 | EMERGENCY ROOM VISIT NOTE ---
History Report prepared by Landy: Jevon Isidro Under the Supervision of: Dr. James Ambrosio M.D. First contact with patient: 14:03 Chief Complaint: SHORTNESS OF BREATH Stated Complaint: PAIN IN RIBS AND BREATHING, VOMITING, DIARRHEA Nursing Triage Summary: patient has had DKA x 2 since april. patient states she was discharged 2 weeks ago from hospital. patient c/o right sided breast pain. denies chest pain. "Its like in the boob.. I have an infection or something." patient states she fainted last monday. patient did not come to ER. patient states she hit her head +LOC. patient alco c/o nauea and vomiting. patient states he breast and rib pain hurts during inspiration. "it hurts to breathe." hx CDIFF, type 1 diabetic History of Present Illness The patient is a 42 year old female who presents to the Emergency Room with complaints of right rib and right breast pain which occurred 11 days ago s/p fall. The patient has type 1 DM and states that she recently had a blood test done after fasting, fainted, and hit her head on the concrete. She was not evaluated for this syncopal episode. She complains of a headache, nausea, and vomiting. She states that movement and breathing worsens the pain. She states she takes sodium carbonate. She was recently admitted to [facility] and had a cholecystectomy. Since April, she has had 2 episodes of DKA. She states she had pancreatitis in May. She previously had C. Diff and salmonella. She notes that every time she gets an infection, she gets right sided breast pain. She denies a rash, masses, bruises, and abscesses on her breast. She denies syncope, neck pain, headache, and SOB. Of note, she follows up with Dr. Mccoy for her kidney issues. Source of History: patient Onset: 11 days ago Position: other (right rib adn right breast ) Symptom Intensity: pain rated as 9/10 Timing: constant Modifying Factors (Worsening): breathing, movement Associated Symptoms: No LOC, No headache, No neck pain, No SOB, No rash Review of Systems See HPI for pertinent positives & negatives. A total of 10 systems reviewed and were otherwise negative. Past Medical & Surgical Medical Problems: (1) Acute kidney injury (2) ARF (acute renal failure) (3) Cholelithiasis (4) Clostridium difficile colitis (5) Colostomy (6) DKA (diabetic ketoacidoses) (7) Lumbar Disc Displacement (8) Pneumonia (9) Sepsis Surgical Problems: (1) Hx laparoscopic cholecystectomy (2) Hx of ileostomy Family History Diabetes mellitus Heart disease Social History Smoking Status: Current Every Day Smoker Alcohol Use: none Drug Use: none Marital Status: Housing Status: lives with family Occupation Status: employed Current/Historical Medications Scheduled Amlodipine (Norvasc), 10 MG PO DAILY Atorvastatin (Lipitor), 20 MG PO DAILY Cephalexin Monohydrate (Keflex), 500 MG PO QID Cholecalciferol (Vitamin D3), 5,000 INTER.UNIT PO DAILY Duloxetine Hcl (Cymbalta), 60 MG PO QPM Esomeprazole Magnesium (Nexium), 40 MG PO QAM Fenofibrate (Tricor), 160 MG PO DAILY Hydrochlorothiazide (Hctz), 25 MG PO DAILY Insulin Degludec (Tresiba Flextouch), 100 UNITS PO HS Insulin Lispro (Human) (Humalog Kwikpen), UNITS SQ DIRECTED Lisinopril (Lisinopril), 0.5 TAB PO DAILY [place]-3 Fatty Acids (Fish Oil), 1,000 MG PO BID Pregabalin (Lyrica), 50 MG PO TID Propranolol Hcl (Propranolol Hcl Er), 120 MG PO BID Sodium Bicarbonate (Sodium Bicarbonate), 1,300 MG PO TID Scheduled PRN Albuterol Hfa (Ventolin Hfa), 2 PUFFS INH Q4H PRN for SOB/Wheezing Allergies Coded Allergies: BEE STING (Verified Allergy, Intermediate, RED, SHORT OF BREATH, 06/30/17) Physical Exam Vital Signs Date Time Temp Pulse Resp B/P (MAP) Pulse Ox O2 Delivery O2 Flow Rate FiO2 06/30/17 17:31 72 18 125/71 96 Room Air 06/30/17 17:01 139/82 06/30/17 16:33 75 06/30/17 16:31 173/97 06/30/17 16:01 74 18 143/94 97 Room Air 06/30/17 15:39 69 18 115/69 97 Room Air 06/30/17 13:47 36.3 69 20 139/88 100 Room Air Physical Exam GENERAL: Patient is chronically unwell appearing and in moderate distress. EYES: No scleral icterus, unremarkable pupils. ENT: Dry mucous membranes, no nasal congestion. NECK: No masses appreciated, no meningismus, trachea is midline. RESPIRATORY: Rib fractures by exam. No dyspnea. Clear to auscultation and equal bilaterally. No wheeze, no rhonchi. CARDIOVASCULAR: Regular rate and rhythm. No murmurs, rubs, gallops appreciated. GASTROINTESTINAL: Abdomen soft, nontender, no peritonitis. Bowel sounds positive. No masses appreciated. BACK: No midline tenderness, no CVA tenderness EXTREMITIES: Extensive scarring on bilateral arms from frequent IVs. Tenderness to palpation of right mid axillary line. Normal motion all extremities, no cyanosis, no edema. NEUROLOGIC: Alert and oriented, no acute motor or sensory deficits, no focal weakness, cranial nerves grossly intact. SKIN: No rash, no jaundice, no diaphoresis. Medical Decision & Procedures ER Provider Diagnostic Interpretation: Radiology results and stated below per my review and radiologist interpretation: R RIBS UNILATERAL WITH PA CHEST CLINICAL HISTORY: right rib pain s/p fall 4 days ago trauma. Pain. COMPARISON STUDY: None FINDINGS: Nondisplaced cortical fractures right fifth 6 and seventh ribs in the midaxillary line. Remaining ribs are unremarkable. Lungs are considered clear. No evidence for pneumothorax. IMPRESSION: 1. Nondisplaced fractures right fifth sixth and seventh ribs in the midaxillary line. 2. The lungs are clear. 3. No evidence for pneumothorax. The above report was generated using voice recognition software. It may contain grammatical, syntax or spelling errors. Electronically signed by: Matias Ruth M.D. 06/30/2017 3:13 PM Dictated Date/Time: 06/30/2017 3:11 PM Laboratory Results 06/30/17 14:48 Red Blood Count 4.44, Mean Corpuscular Volume 82.7, Mean Corpuscular Hemoglobin 26.1, Mean Corpuscular Hemoglobin Concent 31.6, Mean Platelet Volume 9.4, Neutrophils (%) (Auto) 79.0, Lymphocytes (%) (Auto) 16.6, Monocytes (%) (Auto) 3.2, Eosinophils (%) (Auto) 0.5, Basophils (%) (Auto) 0.3, Neutrophils # (Auto) 11.21, Lymphocytes # (Auto) 2.35, Monocytes # (Auto) 0.46, Eosinophils # (Auto) 0.07, Basophils # (Auto) 0.04 06/30/17 14:48 Test 06/30/17 14:30 06/30/17 14:48 06/30/17 14:55 06/30/17 17:18 White Blood Count 14.18 K/uL (4.8-10.8) Red Blood Count 4.44 M/uL (4.2-5.4) Hemoglobin 11.6 g/dL (12.0-16.0) Hematocrit 36.7 % (37-47) Mean Corpuscular Volume 82.7 fL (80-100) Mean Corpuscular Hemoglobin 26.1 pg (25-34) Mean Corpuscular Hemoglobin Concent 31.6 g/dl (32-36) Platelet Count 603 K/uL (130-400) Mean Platelet Volume 9.4 fL (7.4-10.4) Neutrophils (%) (Auto) 79.0 % Lymphocytes (%) (Auto) 16.6 % Monocytes (%) (Auto) 3.2 % Eosinophils (%) (Auto) 0.5 % Basophils (%) (Auto) 0.3 % Neutrophils # (Auto) 11.21 K/uL (1.4-6.5) Lymphocytes # (Auto) 2.35 K/uL (1.2-3.4) Monocytes # (Auto) 0.46 K/uL (0.11-0.59) Eosinophils # (Auto) 0.07 K/uL (0-0.5) Basophils # (Auto) 0.04 K/uL (0-0.2) RDW Standard Deviation 53.1 fL (36.4-46.3) RDW Coefficient of Variation 17.5 % (11.5-14.5) Immature Granulocyte % (Auto) 0.4 % Immature Granulocyte # (Auto) 0.05 K/uL (0.00-0.02) Prothrombin Time 10.8 SECONDS (9.0-12.0) Prothromb Time International Ratio 1.0 (0.9-1.1) D-Dimer 790 ug/L FEU (0-500) Anion Gap 17.0 mmol/L (3-11) Est Creatinine Clear Calc Drug Dose 42.5 ml/min Estimated GFR () 42.1 Estimated GFR (Non- 36.3 BUN/Creatinine Ratio 23.0 (10-20) Osmolality 291 mOsm/kg (280-300) Calcium Level 9.5 mg/dl (8.5-10.1) Phosphorus Level 5.9 mg/dl (2.5-4.9) Magnesium Level 2.5 mg/dl (1.8-2.4) Total Bilirubin 0.5 mg/dl (0.2-1) Direct Bilirubin < 0.1 mg/dl (0-0.2) Aspartate Amino Transf (AST/SGOT) 13 U/L (15-37) Alanine Aminotransferase (ALT/SGPT) 19 U/L (12-78) Alkaline Phosphatase 87 U/L (45-117) Total Creatine Kinase 73 U/L (26-192) Troponin I < 0.015 ng/ml (0-0.045) Total Protein 8.3 gm/dl (6.4-8.2) Albumin 4.1 gm/dl (3.4-5.0) Lipase 369 U/L (73-393) Beta-Hydroxybutyric Acid 1.68 mg/dL (0.2-2.81) Procalcitonin 5.87 ng/ml (0-0.5) Thyroid Stimulating Hormone (TSH) 0.187 uIu/ml (0.300-4.500) Bedside Lactic Acid Venous 0.36 mmol/L (0.90-1.70) Arterial Blood pH 7.10 (7.35-7.45) Arterial Blood Partial Pressure CO2 31 mmHg (35-46) Arterial Blood Partial Pressure O2 97 mm/Hg (80-95) Arterial Blood HCO3 10 mmol/L (19-24) Arterial Blood Oxygen Saturation 95.7 % (90-95) Arterial Blood Base Excess -18.8 mEq/L (-9-1.8) Arterial Blood Gas Delivery ROOM AIR Mickey Test POS (POS) Laboratory results as reviewed by me. Medications Administered Medications (Trade) Dose Ordered Sig/Yudy Route Start Time Stop Time Status Last Admin Dose Admin Sodium Chloride 1,000 ml @ 999 mls/hr Q1H1M STAT IV 06/30/17 14:11 06/30/17 15:11 DC 06/30/17 15:36 999 MLS/HR Morphine Sulfate (MoRPHine SULFATE INJ) 6 mg NOW STAT IV 06/30/17 16:02 06/30/17 16:03 DC 06/30/17 16:25 6 MG ECG Per My Interpretation Indication: SOB/dyspnea Rate (beats per minute): 68 Rhythm: normal sinus Findings: PVC, no acute ischemic change, other (QTc of 450) Change: no significant change (06/11/2017) ED Course 1403: The patient was evaluated in room B10. A complete history and physical exam was performed. 1559: Discussed the patient's case with Dr. Riley. The patient will be evaluated for further treatment and disposition. 1734: Discussed the patient's case with Dr. Fiore. The patient will be evaluated for further treatment and disposition. 1745: Upon reevaluation, the patient is doing well. Discussed results and treatment plan with the patient. She verbalized understanding and agreement with the treatment plan. The patient will be evaluated for further management. Medical Decision Differential: Sepsis, Infectious (UTI/Pneumonia/Meningitis/etc), Metabolic/ Electrolyte Abnormality, Cardiac, Dehydration, Anemia, Hepatic, Endocrine, Toxicologic, Neurologic, amongst other pathologies entertained. 42 yr old female arrives with right rib pain but also noting fatigue, dry mouth and right breast pain. Rib pain s/p fall 4 days ago during hypoglycemic episode. No headache nor evidence to suggest ICH nor does she meet CT Head criteria emergently. She notes other symptoms consistent with her acidosis states in the past thus the reason for testing. She looks quite stable and other than right rib discomfort is really in minimal distress. Given IV morphine for pain with improvement. Ribs clearly fractured on imaging but no evidence need for trauma surgery evaluation. Abdomen soft other than vague epigastric TTP which is chronic for her. I am unsure why she is acidotic, but blood sugar normal as is normal lactic acid level. BHydroxy normal as well. Does not appear she is septic. She is acidotic but I have difficulty believing this is actually DKA. Suspect there is other medical issue at cause and I do not feel the insulin infusion indicated at this time. Tolerated IV fluids without issue. Will bring in for further work-up of these findings. Medication Reconcilliation Current Medication List: was personally reviewed by me Blood Pressure Screening Patient's blood pressure: Normal blood pressure Blood pressure disposition: Did not require urgent referral Consults Time Called: [id number] Consulting Physician: Dr. Riley Returned Call: [phone] Discussed the patient's case. The patient will be evaluated for further treatment and disposition. Additional Consults: Time Called: [phone] Consulted Physician: Dr. Fiore Returned Call: [phone] Additional Comments: Discussed the patient's case. The patient will be evaluated for further treatment and disposition. Impression Primary Impression: Acidosis Additional Impressions: Right rib fracture Breast pain, right Dehydration Scribe Attestation The scribe's documentation has been prepared under my direction and personally reviewed by me in its entirety. I confirm that the note above accurately reflects all work, treatment, procedures, and medical decision making performed by me. Departure Information Referrals Wiliam Garsia M.D. (PCP) Patient Instructions My [facility] Problem Qualifiers
[2017-06-30] MEDS ORDERED: CEPH500C2 PO (14:36)
[2017-06-30 15:00] LABS: BASO % 0.3 %; BASO ABS # 0.04 K/uL (0-0.2); EOS % 0.5 %; EOS ABS # 0.07 K/uL (0-0.5); HEMATOCRIT 36.7 % (37-47); HEMOGLOBIN 11.6 g/dL (12.0-16.0); IG# 0.05 K/uL (0.00-0.02); LYMPH % 16.6 %; LYMPH ABS # 2.35 K/uL (1.2-3.4); MEAN CELL VOLUME 82.7 fL (80-100); MEAN CORPUSCULAR HEMOGLOBIN 26.1 pg (25-34); MEAN CORPUSCULAR HGB CONC 31.6 g/dl (32-36); MEAN PLATELET VOLUME 9.4 fL (7.4-10.4); MONO % 3.2 %; MONO ABS # 0.46 K/uL (0.11-0.59); NEUT ABS # 11.21 K/uL (1.4-6.5); PLATELET COUNT 603 K/uL (130-400); RED CELL DISTRIBUTION WIDTH CV 17.5 % (11.5-14.5); RED CELL DISTRIBUTION WIDTH SD 53.1 fL (36.4-46.3); WHITE BLOOD COUNT 14.18 K/uL (4.8-10.8)
--- NOTE | 2017-06-30 15:14 | DIAGNOSTIC IMAGING REPORT ---
R RIBS UNILATERAL WITH PA CHEST CLINICAL HISTORY: right rib pain s/p fall 4 days ago trauma. Pain. COMPARISON STUDY: None FINDINGS: Nondisplaced cortical fractures right fifth 6 and seventh ribs in the midaxillary line. Remaining ribs are unremarkable. Lungs are considered clear. No evidence for pneumothorax. IMPRESSION: 1. Nondisplaced fractures right fifth sixth and seventh ribs in the midaxillary line. 2. The lungs are clear. 3. No evidence for pneumothorax. The above report was generated using voice recognition software. It may contain grammatical, syntax or spelling errors. Electronically signed by: Matias Ruth M.D. 06/30/2017 3:13 PM Dictated Date/Time: 06/30/2017 3:11 PM
[2017-06-30 15:23] LABS: BLOOD UREA NITROGEN 39 mg/dl (7-18); CREATININE 1.69 mg/dl (0.60-1.20); GLUCOSE 134 mg/dl (70-99)
[2017-06-30 15:24] LABS: ALBUMIN 4.1 gm/dl (3.4-5.0); ALKALINE PHOSPHATASE 87 U/L (45-117); ALT/SGPT 19 U/L (12-78); AST/SGOT 13 U/L (15-37); CALCIUM 9.5 mg/dl (8.5-10.1); LIPASE 369 U/L (73-393); POTASSIUM 4.7 mmol/L (3.5-5.1); SODIUM 130 mmol/L (136-145); TOTAL PROTEIN 8.3 gm/dl (6.4-8.2)
[2017-06-30] MEDS ORDERED: MoRPHine SULFATE 10 MG/ML CARP/VIAL IV STA (16:02)
[2017-06-30 17:07] LABS: CARBON DIOXIDE 8 mmol/L (21-32)
[2017-06-30] MEDS ORDERED: HYDR25TA4 PO (17:10)
[2017-06-30] MEDS ORDERED: ATOR-54 PO (17:10)
[2017-06-30] MEDS ORDERED: LSN20 PO (17:12)
[2017-06-30] MEDS ORDERED: NITROGLYCERIN 0.4 MG SL PER TAB CHARGE SL PRN (17:30)
[2017-06-30] MEDS ORDERED: GLUCAGON FOR INJ 1 MG VIAL SQ PRN (17:45)
[2017-06-30] MEDS ORDERED: ALBUTEROL HFA 8 GM INHALER INH PRN (17:45)
[2017-06-30] MEDS ORDERED: GLUCOSE 40% GEL 15 GM TUBE PO PRN (17:45)
[2017-06-30] MEDS ORDERED: GLUCOSE 10 TABS/TUBE PO PRN (17:45)
[2017-06-30] MEDS ORDERED: DEXTROSE 50% 50 ML SYR IV PRN (17:45)
[2017-06-30] MEDS ORDERED: PHARMACY GLYCEMIC MGMT CONSULT PRN (17:56)
[2017-06-30] MEDS ORDERED: ICU PROTOCOL FOR HYPERGLYCEMIA PRN (18:15)
[2017-06-30 18:48] LABS: PHOSPHORUS 5.9 mg/dl (2.5-4.9)
[2017-06-30] MEDS ORDERED: LACTATED RINGER'S 1000ML 1,000 ML IV SCH (19:15)
[2017-06-30] MEDS ORDERED: CEFTRIAXONE SOD INJ 1 GM in DEXTROSE 5% ADD-VANTAGE 50ML 50 ML IV SCH (19:30)
[2017-06-30] MEDS: DULOXETINE HCL 60 MG CAP PO SCH (19:39)
[2017-06-30] MEDS: PROPRANOLOL HCL 60 MG LA CAP PO SCH (19:40)
[2017-06-30] MEDS: OMEGA-3 (PURIFIED FISH OIL) 1 GM CAP PO SCH (19:41)
[2017-06-30] MEDS: SODIUM BICARBONATE 650 MG TAB PO SCH (19:42)
[2017-06-30] MEDS ORDERED: PREGABALIN 50 MG CAP ONE (19:45)
[2017-06-30] MEDS: PREGABALIN 50 MG CAP PO SCH (19:46)
--- NOTE | 2017-06-30 20:54 | History and Physical ---
History & Physical Date & Time of Service: Jun 30, 2017 at 17:20 Chief Complaint: Pain In Ribs And Breathing, Vomiting, Diarrhea Primary Care Physician: Wiliam Garsia M.D. History of Present Illness Source: patient, family, clinic records, hospital records Pt is 42 y/o F with past medical history DM, HTN, GERD, metabolic acidosis, hyperchloremia presented to ER with complaint of right breast pain. Patient reports couple days ago was at [facility] to have labs done and was checking in registration and had syncopal episode and fell. She had not eaten breakfast that morning and did take her insulin. Patient reports glucose was checked at that time and was 95. Patient states since fall has been having right-sided rib pain aggravated with rotation of torso, palpation and deep inspiration. Denies any shortness of breath. Patient admits to be using ibuprofen. Patient states yesterday started vomiting 3 episodes, today 2 episodes. This morning had 2 loose BMs. She also reports right breast tenderness. She reports history of right breast tenderness and then is found to be acidotic. Patient states when she was getting this breast tenderness she called her PCPs office and reported that she was getting "staph infection". Patient denies any noted skin discolorations, lesions or pustules. She was called in Keflex yesterday, patient states is taken 3-4 doses. She reports her blood sugars have been running 110-160. Denies fever/chills, diaphoresis, hematemesis, melena, hematochezia, ZULETA, dizziness, vision changes, neck pain, SOB, orthopnea, palpitations, cough, sore throat, choking, otalgia, rhinorrhea, abdominal pain, paresthesias, extremity edema, urinary symptoms. Recent history of hyperkalemia has been having lab work twice weekly with Dr. Everett. Patient's oral potassium was discontinued. Potassium was 5.9 on 06/26, 5.5 on 06/27. Potassium 4.7 today. Bicarb was 23 on 06/26/17. Creatinine 1.3 on 06/26/17. Patient with history of hospitalization 06/11/17 to 06/17/17 for gallstone pancreatitis, cholecystectomy, [place] Hospitalization 05/21/17 to 05/26/17 for sepsis syndrome no source infection identified, metabolic acidosis, OK, HTN emergency. Hospitalization 04/17/17-04/26/17 for DKA, metabolic acidosis, AK I, acute hypoxic respiratory failure on ventilator, metabolic encephalopathy. Past Medical/Surgical History Medical Problems: (1) Acute kidney injury Status: Resolved (2) Cholelithiasis Status: Resolved (3) Clostridium difficile colitis Status: Resolved (4) Colostomy Status: Resolved (5) DKA (diabetic ketoacidoses) Status: Resolved (6) Lumbar Disc Displacement Status: Chronic (7) Pneumonia Status: Chronic (8) Sepsis Status: Resolved Surgical Problems: (1) Hx laparoscopic cholecystectomy Status: Resolved (2) Hx of ileostomy Permanent Comment[place] 03/16/12 - [place] [facility] [place] [facility] [place]: Res[place] Family History Diabetes mellitus Heart disease Social History Smoking Status: Current Every Day Smoker Drug Use: none Marital Status: Housing status: lives with significant other Occupational Status: employed Immunizations History of Influenza Vaccine: Unknown History of Tetanus Vaccine?: Unknown History of Pneumococcal: Unknown History of Hepatitis B Vaccine: Unknown Allergies Coded Allergies: BEE STING (Verified Allergy, Intermediate, RED, SHORT OF BREATH, 06/30/17) Home Medications Scheduled Amlodipine (Norvasc), 10 MG PO DAILY Atorvastatin (Lipitor), 20 MG PO DAILY Cephalexin Monohydrate (Keflex), 500 MG PO QID Cholecalciferol (Vitamin D3), 5,000 INTER.UNIT PO DAILY Duloxetine Hcl (Cymbalta), 60 MG PO QPM Esomeprazole Magnesium (Nexium), 40 MG PO QAM Fenofibrate (Tricor), 160 MG PO DAILY Hydrochlorothiazide (Hctz), 25 MG PO DAILY Insulin Degludec (Tresiba Flextouch), 100 UNITS PO HS Insulin Lispro (Human) (Humalog Kwikpen), UNITS SQ DIRECTED Lisinopril (Lisinopril), 0.5 TAB PO DAILY [place]-3 Fatty Acids (Fish Oil), 1,000 MG PO BID Pregabalin (Lyrica), 50 MG PO TID Propranolol Hcl (Propranolol Hcl Er), 120 MG PO BID Sodium Bicarbonate (Sodium Bicarbonate), 1,300 MG PO TID Scheduled PRN Albuterol Hfa (Ventolin Hfa), 2 PUFFS INH Q4H PRN for SOB/Wheezing Review of Systems See HPI for pertinent positives & negatives. All other systems reviewed and were otherwise negative Physical Exam Vital Signs Date Time Temp Pulse Resp B/P (MAP) Pulse Ox O2 Delivery O2 Flow Rate FiO2 06/30/17 16:33 75 06/30/17 16:01 74 18 143/94 97 Room Air 06/30/17 15:39 69 18 115/69 97 Room Air 06/30/17 13:47 36.3 69 20 139/88 100 Room Air General Appearance: no apparent distress, + obese Head: normocephalic, atraumatic Eyes: normal inspection, PERRL, EOMI, sclerae normal ENT: hearing grossly normal, pharynx normal, + pertinent finding (mucous membranes moist) Neck: supple, no JVD, trachea midline Respiratory/Chest: lungs clear, normal breath sounds, no respiratory distress, + pertinent finding (+right lateral mid rib tenderness to palpation, no crepitus noted. Right breast without erythema or edema, no palpable masses, no nipple discharge) Cardiovascular: regular rate, rhythm Abdomen/GI: normal bowel sounds, non tender, soft, + pertinent finding (+ healing laproscopic incisions to abdomen without surrounding erythema) Back: no CVA tenderness Extremities/Musculoskelatal: no calf tenderness, normal capillary refill, no pedal edema, normal range of motion, non-tender Neurologic/Psych: alert, normal mood/affect, oriented x 3 Skin: normal color, warm/dry Diagnostics Laboratory Results Results Past 24 Hours Test 06/30/17 14:48 06/30/17 14:55 06/30/17 15:25 06/30/17 17:18 Range/Units White Blood Count 14.18 4.8-10.8 K/uL Red Blood Count 4.44 4.2-5.4 M/uL Hemoglobin 11.6 12.0-16.0 g/dL Hematocrit 36.7 37-47 % Mean Corpuscular Volume 82.7 80-100 fL Mean Corpuscular Hemoglobin 26.1 25-34 pg Mean Corpuscular Hemoglobin Concent 31.6 32-36 g/dl Platelet Count 603 130-400 K/uL Mean Platelet Volume 9.4 7.4-10.4 fL Neutrophils (%) (Auto) 79.0 % Lymphocytes (%) (Auto) 16.6 % Monocytes (%) (Auto) 3.2 % Eosinophils (%) (Auto) 0.5 % Basophils (%) (Auto) 0.3 % Neutrophils # (Auto) 11.21 1.4-6.5 K/uL Lymphocytes # (Auto) 2.35 1.2-3.4 K/uL Monocytes # (Auto) 0.46 0.11-0.59 K/uL Eosinophils # (Auto) 0.07 0-0.5 K/uL Basophils # (Auto) 0.04 0-0.2 K/uL RDW Standard Deviation 53.1 36.4-46.3 fL RDW Coefficient of Variation 17.5 11.5-14.5 % Immature Granulocyte % (Auto) 0.4 % Immature Granulocyte # (Auto) 0.05 0.00-0.02 K/uL Prothrombin Time 10.8 9.0-12.0 SECONDS Prothromb Time International Ratio 1.0 0.9-1.1 D-Dimer 790 0-500 ug/L FEU Arterial Blood pH 7.14 7.35-7.45 Arterial Blood Partial Pressure CO2 29 35-46 mmHg Arterial Blood Partial Pressure O2 108 80-95 mm/Hg Arterial Blood HCO3 10 19-24 mmol/L Arterial Blood Oxygen Saturation 96.9 90-95 % Arterial Blood Base Excess -17.9 -9-1.8 mEq/L Arterial Blood Gas Delivery ROOM AIR Mickey Test POS POS Sodium Level 130 136-145 mmol/L Potassium Level 4.7 3.5-5.1 mmol/L Chloride Level 105 98-107 mmol/L Carbon Dioxide Level 8 21-32 mmol/L Anion Gap 17.0 3-11 mmol/L Blood Urea Nitrogen 39 7-18 mg/dl Creatinine 1.69 0.60-1.20 mg/dl Est Creatinine Clear Calc Drug Dose 42.5 ml/min Estimated GFR () 42.1 Estimated GFR (Non- 36.3 BUN/Creatinine Ratio 23.0 10-20 Random Glucose 134 70-99 mg/dl Calcium Level 9.5 8.5-10.1 mg/dl Total Bilirubin 0.5 0.2-1 mg/dl Direct Bilirubin < 0.1 0-0.2 mg/dl Aspartate Amino Transf (AST/SGOT) 13 15-37 U/L Alanine Aminotransferase (ALT/SGPT) 19 12-78 U/L Alkaline Phosphatase 87 45-117 U/L Troponin I < 0.015 0-0.045 ng/ml Total Protein 8.3 6.4-8.2 gm/dl Albumin 4.1 3.4-5.0 gm/dl Lipase 369 73-393 U/L Beta-Hydroxybutyric Acid 1.68 0.2-2.81 mg/dL Procalcitonin 5.87 0-0.5 ng/ml Bedside Lactic Acid Venous 0.36 0.90-1.70 mmol/L Bedside Glucose 125 70-90 mg/dl Diagnostic Radiology RIB/CXR: IMPRESSION: 1. Nondisplaced fractures right fifth sixth and seventh ribs in the midaxillary line. 2. The lungs are clear. 3. No evidence for pneumothorax. EKG EKG: rate 68, sinus rhythm, PVC's Read by cardiology: Sinus rhythm with occasional Premature ventricular complexes Otherwise normal ECG When compared with ECG of 11-JUN-2017 18:10, No significant change was found Confirmed by GENE PINO ([id number]) on 06/30/2017 3:18:39 PM Impression Assessment and Plan ACIDOSIS pH: 7.1 on ABG, bicarb 8. Patient currently awake and alert, vitals stable, patient in no apparent distress. Patient with complicated medical history and history of rapid decompensation in the past,Feel ICU appropriate at this time. -Candy Counter Clerk on board -LR -nephrology consult - Spoke with Dr. Lucas recommends continuing oral bicarb and continuing LR at this time -Salicylate, acetaminophen levels added -phosphorus, magnesium, TSH labs added OK ON CKD III Cr: 1.6, was 1.3 on 06/26/17. (range 1.3-2.2) -IVF -monitor renal functions -avoid nephrotoxic agents when possible RIGHT RIB FRACTURE Pt had syncopal episode couple days ago with fall. CXR: +R 5,6,7 rib fractures. -tramadol prn pain -incentive spirometer ELEVATED D-DIMER: D-dimer: 790 -U/S BLE ordered to r/o DVT. Holding on CTA chest secondary to pt's CKD LEUKOCYTOSIS: Afebrile. WBC: 14. Lactic acid: 0.36. -pending U/A -pending blood cultures HYPONATREMIA: Na: 130, corrected 131 for glucose 134 -IVF -monitor electrolytes R BREAST PAIN: Pt reports R breast pain at onset of illness. No palpable masses noted. Was going to order u/s R breast, however informed by u/s tech that do not perform whole breast u/s -will continue to monitor, may need to consider out patient imaging DM: Glucose: 134 currently. Pt with hx uncontrolled in past -Basal insulin, NovoLog sliding scale per protocol -glycemic pharmacy consult HTN: -continue amlodipine, propranolol -Hold lisinopril and HCTZ DYSLIPIDEMIA: -continue statin DEPRESSION: -continue cymbalta GERD: -continue PPI DVT Prophylaxis -heparin SQ Disposition admit ICU Full Code Follows with Dr Wiliam Garsia for routine care Pt was seen with Dr Riley. See addendum See community health worker addendum Attending addendum: Patient seen and examined care coordinated with Jaida Reich PA-C This is a 42-year-old female past medical history of diabetes type 1 history of recurrent DKA, CKD stage III Presented to ER with complaint of right breast pain, sustained a fall a week ago Chest x-ray shows multiple rib fracture on the right side Lab shows severe metabolic acidosis with pH of 7.1 bicarb of 8 Blood sugar 125 Normal lactic acid physical exam: Please refer to physical exam by Jaida Reich PA-C ASSESSMENT AND PLAN: Severe metabolic acidosis: Possible cause recent diarrhea dehydration Patient's given IV fluid bolus in the ER Already been on oral bicarb supplement Plan of care discussed with nephrology Dr. Fiore patient will be continued with IV fluids Follow PRP very closely Will be admitted to ICU for close monitoring of hemodynamics OK on CKD stage III: Possible secondary to dehydration, diarrhea Hold HCTZ ordered for IV fluids Monitor PRP Right-sided ribs fracture: Due to fall Pain control Incentive spirometry Please refer to documentation by Jaida Reich PA-C for further discussion of other issues Marychuy Riley MD Resuscitation Status Full Code VTE Prophylaxis Will order VTE Prophylaxis: Yes Additional Copies To Wiliam Garsia M.D.
[2017-06-30] MEDS: INSULIN ASPART 100 UNITS/ML 3 ML PEN SC SCH (21:00)
--- NOTE | 2017-06-30 21:17 | Critical Care Consultation ---
Critical Care Consultation Date of Consultation: Jun 30, 2017. Attending Physician: Jennifer Lopez D.O. Reason for Consultation: Dear Dr. Riley: Thank you for your kind referral Mrs. Rhodes to critical care service. 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 Most recent admission to the hospital the patient required 3 weeks prolonged hospitalization and requiring also hemodialysis. Currently the patient is not on hemodialysis. History of hypertension, hyperlipidemia, and she has been maintained on hydrochlorothiazide for fluid retention. The patient was maintained also on chronic bicarb due to the loss of her bicarb. It was unclear to me whether the patient had RTA or the patient had significant bicarb loss due to GI loss. When I interviewed the patient, the patient was asymptomatic except from right pleuritic chest pain after she fell, she did sustain rib fracture on the right. The patient did not have any pneumothorax or injury to the lung such as lung contusion. The patient pain mainly in her breast area. She has no shortness of breath no cough and she is not tachypneic to compensate for her low bicarb. The patient did not have any abdominal pain but she did have projectile nausea vomiting accompanied also with 3 episodes of diarrhea that were watery. No hematochezia or melena and there is no hematemesis. No hemoptysis no cough no sputum production no loss of consciousness or altered mental status she does not feel fatigued as well. In the ED, the patient was found to have bicarb of 8 with pH of 7.1 and the patient was totally asymptomatic. The patient despite the carbonate supplement continue to have low pH. The patient was admitted to the ICU for further evaluation and treatment. Family History Diabetes mellitus Heart disease Social History Smoking Status: Current Every Day Smoker Drug Use: none Marital Status: Housing Status: lives with family Occupation Status: employed Allergies Coded Allergies: BEE STING (Verified Allergy, Intermediate, RED, SHORT OF BREATH, 06/30/17) Home Medications Scheduled Amlodipine (Norvasc), 10 MG PO DAILY Atorvastatin (Lipitor), 20 MG PO DAILY Cephalexin Monohydrate (Keflex), 500 MG PO QID Cholecalciferol (Vitamin D3), 5,000 INTER.UNIT PO DAILY Duloxetine Hcl (Cymbalta), 60 MG PO QPM Esomeprazole Magnesium (Nexium), 40 MG PO QAM Fenofibrate (Tricor), 160 MG PO DAILY Hydrochlorothiazide (Hctz), 25 MG PO DAILY Insulin Degludec (Tresiba Flextouch), 100 UNITS PO HS Insulin Lispro (Human) (Humalog Kwikpen), UNITS SQ DIRECTED Lisinopril (Lisinopril), 0.5 TAB PO DAILY [place]-3 Fatty Acids (Fish Oil), 1,000 MG PO BID Pregabalin (Lyrica), 50 MG PO TID Propranolol Hcl (Propranolol Hcl Er), 120 MG PO BID Sodium Bicarbonate (Sodium Bicarbonate), 1,300 MG PO TID Scheduled PRN Albuterol Hfa (Ventolin Hfa), 2 PUFFS INH Q4H PRN for SOB/Wheezing Current Inpatient Medications Current Inpatient Medications Medications (Trade) Dose Ordered Sig/Yudy Route Start Time Stop Time Status Last Admin Dose Admin Acetaminophen (Tylenol Tab) 650 mg Q4H PRN PO 06/30/17 17:30 07/30/17 17:29 Ondansetron HCl (Zofran Inj) 4 mg Q6H PRN IV 06/30/17 17:30 07/30/17 17:29 Nitroglycerin (Nitrostat Tab) 0.4 mg UD PRN SL 06/30/17 17:30 07/30/17 17:29 Albuterol (Ventolin Hfa Inhaler) 2 puffs Q4H PRN INH 06/30/17 17:45 07/30/17 17:44 Amlodipine Besylate (Norvasc Tab) 10 mg DAILY PO 07/01/17 09:00 07/31/17 08:59 Atorvastatin Calcium (Lipitor Tab) 20 mg DAILY PO 07/01/17 09:00 07/31/17 08:59 Cholecalciferol (Vitamin D Tab) 5,000 inter.unit DAILY PO 07/01/17 09:00 07/31/17 08:59 Duloxetine HCl (Cymbalta Cap) 60 mg QPM PO 06/30/17 21:00 07/30/17 20:59 06/30/17 19:39 60 MG Fish Oil ([place]-3 (Purified Fish Oil) Cap) 1 gm BID PO 06/30/17 21:00 07/30/17 20:59 06/30/17 19:41 1 GM Pregabalin (Lyrica Cap) 50 mg TID PO 06/30/17 21:00 07/30/17 20:59 06/30/17 19:46 50 MG Pantoprazole Sodium (Protonix Tab) 40 mg QAM PO 07/01/17 09:00 07/31/17 08:59 Propranolol HCl (Inderal La Cap) 120 mg BID PO 06/30/17 21:00 07/30/17 20:59 06/30/17 19:40 120 MG Insulin Glargine (Lantus Solostar Pen) 25 units Q12 SC 06/30/17 21:00 07/30/17 20:59 Insulin Aspart (novoLOG ASPART) SLIDING SCALE If C... ACHS SC 06/30/17 21:00 07/30/17 20:59 Glucose (Glucose 40% Gel) 15-30 GRAMS 15 GRAMS... UD PRN PO 06/30/17 17:45 07/30/17 17:44 Glucose (Glucose Chew Tab) 4-8 Tablets 4 Tabl... UD PRN PO 06/30/17 17:45 07/30/17 17:44 Dextrose (Dextrose 50% 50ML Syringe) 25-50ML OF 50% DW IV FOR... UD PRN IV 06/30/17 17:45 07/30/17 17:44 Glucagon (Glucagon Inj) 1 mg UD PRN SQ 06/30/17 17:45 07/30/17 17:44 Miscellaneous Information (Consult Glycemic Management Pharmacy) 1 ea UD PRN N/A 06/30/17 17:56 07/30/17 17:55 Tramadol HCl (Ultram Tab) 50 mg Q6 PRN PO 06/30/17 18:00 07/30/17 17:59 Sodium Bicarbonate (Sodium Bicarbonate Tab) 1,300 mg TID PO 06/30/17 21:00 07/30/17 20:59 06/30/17 19:42 1,300 MG Heparin Sodium (Porcine) (Heparin Sq 5000 Unit/0.5ml) 5,000 unit Q8H SQ 06/30/17 22:00 07/30/17 21:59 Miscellaneous Information (Icu Protocol For Hyperglycemia) 1 ea PRN PRN N/A 06/30/17 18:15 07/02/17 18:14 Ceftriaxone Sodium 1 gm/ Dextrose 50 ml @ 100 mls/hr Q24H IV 06/30/17 19:30 07/02/17 19:29 06/30/17 19:28 100 MLS/HR Miscellaneous Information (Order Awaiting Action) 1 ea QS N/A 07/01/17 00:00 07/31/17 00:00 Sodium Bicarbonate 150 meq/Dextrose 1,150 ml @ 200 mls/hr Q5H45M IV 06/30/17 20:00 07/30/17 19:59 Review of Systems Review of system as above. Constitutional: No fever, No chills, No sweats, No weight loss, No weakness, No fatigue, No problem reported Eyes: No worsening of vision, No eye pain, No redness, No discharge, No diplopia, No problem reported ENT: No hearing loss, No unusual epistaxis, No nasal symptoms, No sore throat, No tinnitus, No dental problems, No trouble swallowing, No problem reported Respiratory: + problem reported (Pleuritic chest pain) Cardiovascular: + chest pain (Pleuritic chest pain), No orthopnea, No PND, No edema, No claudication, No palpitations, No problem reported Abdomen: No pain, No nausea, No vomiting, No diarrhea, No constipation, No GI bleeding, No problem reported Musculoskeletal: No joint pain, No muscle pain, No swelling, No calf pain, No problem reported Neurologic: No memory loss, No paralysis, No weakness, No numbness/tingling, No vertigo, No balance problems, No problem reported Psychiatric: No depression symptoms, No anhedonism, No anxiety, No insomnia, No substance abuse, No problem reported Endocrine: + problem reported (Diabetic) Hematologic / Lymphatic: No abnormal bleeding/bruising, No clotting problems, No swollen lymph nodes, No night sweats, No problem reported Allergic / Immunologic: No environmental allergies, No seasonal allergies, No pet sensitivities, No food allergies, No hives, No frequent infections, No poor healing, No prolonged convalescence, No problem reported Physical Exam Date Time Temp Pulse Resp B/P (MAP) Pulse Ox O2 Delivery O2 Flow Rate FiO2 06/30/17 17:31 72 18 125/71 96 Room Air 06/30/17 17:01 139/82 06/30/17 16:33 75 06/30/17 16:31 173/97 06/30/17 16:01 74 18 143/94 97 Room Air 06/30/17 15:39 69 18 115/69 97 Room Air 06/30/17 13:47 36.3 69 20 139/88 100 Room Air General Appearance: well-appearing, no apparent distress Eyes: no discharge, EOMI, sclerae normal ENT: normal mouth exam, normal throat exam Neck: trachea midline Respiratory: breath sounds normal, clear to auscultation Cardiovasular: regular rate/rhythm, normal S1S2, no M/G/R, no murmur Abdomen: non tender, no rebound, no masses Upper Extremities: no edema Lower Extremities: no edema Neuro: alert, oriented x 3, normal motor exam, normal sensation Psychiatric: normal affect Laboratory Results Last 24 Hours Test 06/30/17 00:00 06/30/17 14:30 06/30/17 14:48 06/30/17 14:55 White Blood Count 14.18 K/uL Red Blood Count 4.44 M/uL Hemoglobin 11.6 g/dL Hematocrit 36.7 % Mean Corpuscular Volume 82.7 fL Mean Corpuscular Hemoglobin 26.1 pg Mean Corpuscular Hemoglobin Concent 31.6 g/dl Platelet Count 603 K/uL Mean Platelet Volume 9.4 fL Neutrophils (%) (Auto) 79.0 % Lymphocytes (%) (Auto) 16.6 % Monocytes (%) (Auto) 3.2 % Eosinophils (%) (Auto) 0.5 % Basophils (%) (Auto) 0.3 % Neutrophils # (Auto) 11.21 K/uL Lymphocytes # (Auto) 2.35 K/uL Monocytes # (Auto) 0.46 K/uL Eosinophils # (Auto) 0.07 K/uL Basophils # (Auto) 0.04 K/uL RDW Standard Deviation 53.1 fL RDW Coefficient of Variation 17.5 % Immature Granulocyte % (Auto) 0.4 % Immature Granulocyte # (Auto) 0.05 K/uL Prothrombin Time 10.8 SECONDS Prothromb Time International Ratio 1.0 D-Dimer 790 ug/L FEU Arterial Blood pH 7.14 Arterial Blood Partial Pressure CO2 29 mmHg Arterial Blood Partial Pressure O2 108 mm/Hg Arterial Blood HCO3 10 mmol/L Arterial Blood Oxygen Saturation 96.9 % Arterial Blood Base Excess -17.9 mEq/L Arterial Blood Gas Delivery ROOM AIR Mickey Test POS Sodium Level 130 mmol/L Potassium Level 4.7 mmol/L Chloride Level 105 mmol/L Carbon Dioxide Level 8 mmol/L Anion Gap 17.0 mmol/L Blood Urea Nitrogen 39 mg/dl Creatinine 1.69 mg/dl Est Creatinine Clear Calc Drug Dose 42.5 ml/min Estimated GFR () 42.1 Estimated GFR (Non- 36.3 BUN/Creatinine Ratio 23.0 Random Glucose 134 mg/dl Osmolality 291 mOsm/kg Calcium Level 9.5 mg/dl Phosphorus Level 5.9 mg/dl Magnesium Level 2.5 mg/dl Total Bilirubin 0.5 mg/dl Direct Bilirubin < 0.1 mg/dl Aspartate Amino Transf (AST/SGOT) 13 U/L Alanine Aminotransferase (ALT/SGPT) 19 U/L Alkaline Phosphatase 87 U/L Total Creatine Kinase 73 U/L Troponin I < 0.015 ng/ml Total Protein 8.3 gm/dl Albumin 4.1 gm/dl Lipase 369 U/L Beta-Hydroxybutyric Acid 1.68 mg/dL Procalcitonin 5.87 ng/ml Thyroid Stimulating Hormone (TSH) 0.187 uIu/ml Bedside Lactic Acid Venous 0.36 mmol/L Test 06/30/17 15:25 06/30/17 17:18 06/30/17 19:01 06/30/17 19:45 Bedside Glucose 125 mg/dl 80 mg/dl Arterial Blood pH 7.10 Arterial Blood Partial Pressure CO2 31 mmHg Arterial Blood Partial Pressure O2 97 mm/Hg Arterial Blood HCO3 10 mmol/L Arterial Blood Oxygen Saturation 95.7 % Arterial Blood Base Excess -18.8 mEq/L Arterial Blood Gas Delivery ROOM AIR Mickey Test POS Salicylates Level 2.4 mg/dl Acetaminophen Level 26 ug/ml Diagnostic Results Reviewed all her labs which are consistent with acute anion gap and non-anion gap metabolic acidosis. No renal failure. The patient is totally asymptomatic. 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 Assessment & Plan 1. Severe anion gap and non-anion gap metabolic acidosis consistent with recent diarrhea as well as RTA. I I do think that in the past the patient labeled as a DKA but in fact it turns out to be metabolic acidosis due to malabsorption. The patient is on good supplement of sodium bicarbonate without correcting her sodium bicarbonate. Hydrochlorothiazide also playing a role in that regard. The patient was just restarted on it 2 weeks ago. 2. Diabetes, controlled, not requiring any additional supplements of insulin other than her oral regimen. 3. Diarrhea resulted in the above. 4. History of hypertension.. 5. History of recent cholecystectomy, history of colostomy with revision as part of treatment of previous history of C. difficile. Plan: 1. Stop hydrochlorothiazide. 2. Aggressive bicarb supplement. 3. Obtain UA with pH, evaluation for RTA type IV. 4. Nephrology consult. 5. Continue oral regimen. 6. Continue home medications except for hydrochlorothiazide. 7. Avoid metformin. 8. We will keep in the ICU. 9. Obtain repeat BMP at midnight. 10. Repeat BMP every 8 hours starting tomorrow. 11. No need for antibiotics, there is no evidence of infectious process in this patient. 12. The diarrhea is concerning given her history of significant C. difficile, we will obtain stool C. difficile. 13. DVT prophylaxis. 14. Case discussed in details with the staff, critical care time spent with the patient was 60 minutes.
[2017-06-30] MEDS: SODIUM BICARBONATE 8.4% INJ 150 MEQ in DEXTROSE 5% 1000ML 1,000 ML IV SCH (21:39)
[2017-06-30] MEDS: INSULIN GLARGINE SOLOSTAR 100 UNITS/ML 3 ML PEN SC SCH (21:40)
[2017-06-30] MEDS: HEPARIN SOD 5000 UNIT/0.5 ML CARP SQ SCH (21:43)
--- NOTE | 2017-06-30 21:47 | Procedure Note ---
Procedure Note Procedure Date Jun 30, 2017. Procedure Description Procedure Name: Central line placement Procedure time out: side/site verified, patient ID confirmed, correct procedure Consent obtained: verbal Performed by: attending Indications: diagnostic, therapeutic Contraindications: none Description: The patient was placed in supine position, the indication for the central line patient did not have any Howard, patient agreed to the procedure, risk and benefits explained details. The line was placed in the right subclavian area, under strict sterile field using Seldinger technique, the skin was prepped with chlorhexidine, injected with 5 mL of 1% lidocaine, no scalpel was used only dilator, the line was placed to 15 cm, secured with 2 sutures and covered with surgical dressing, the chest x-ray revealed the tip of the catheter at the SVC, no pneumothorax. May use a line. Complications: none Patient tolerated procedure: well
--- NOTE | 2017-06-30 21:59 | DIAGNOSTIC IMAGING REPORT ---
CHEST ONE VIEW PORTABLE CLINICAL HISTORY: 42 years-old Female presenting with line placed. TECHNIQUE: Portable upright AP view of the chest was obtained. COMPARISON: 06/11/2017. FINDINGS: Interval placement of a right subclavian central venous catheter, which terminates in the mid SVC. Cardiomediastinal silhouette normal. Mild pulmonary vascular prominence. Mildly low lung volumes. No focal opacity. No large effusion or pneumothorax. Osseous structures normal. Upper abdomen normal. IMPRESSION: 1. Interval placement of right subclavian central venous catheter, which terminates in the mid SVC. No pneumothorax. 2. Possible volume overload. 3. Mildly low lung volumes. Electronically signed by: Brian Pavon M.D. 06/30/2017 9:58 PM Dictated Date/Time: 06/30/2017 9:57 PM
[2017-06-30] MEDS ORDERED: HEPARIN SOD 5000 UNIT/0.5 ML CARP SQ SCH (22:00)
[2017-06-30 22:43] LABS: CALCIUM 8.9 mg/dl (8.5-10.1); CREATININE 1.75 mg/dl (0.60-1.20); POTASSIUM 4.1 mmol/L (3.5-5.1)
[2017-06-30 22:59] LABS: POTASSIUM RANDOM URINE 56.6 mEq/L
[2017-06-30] MEDS: TRAMADOL HCL 50 MG TAB PO PRN (23:11)
--- NOTE | 2017-06-30 23:13 | DIAGNOSTIC IMAGING REPORT ---
VENOUS DOPPLER LWR EXT BILA CLINICAL HISTORY: 42 years-old Female presenting with R/O DVT, shortness of breath, clinical concern for pulmonary embolus. TECHNIQUE: Real-time grayscale and color and spectral Doppler ultrasound imaging of the veins of the bilateral lower extremities was performed. Compression and augmentation were also utilized. COMPARISON: None. FINDINGS: Right: Common femoral vein: Patent. Greater saphenous vein: Patent. Deep femoral vein: Patent. Femoral vein: Patent. Popliteal vein: Patent. Calf veins: Patent. Left: Common femoral vein: Patent. Greater saphenous vein: Patent. Deep femoral vein: Patent. Femoral vein: Patent. Popliteal vein: Patent. Calf veins: Patent. Other: None. IMPRESSION: No evidence of deep venous thrombosis. Electronically signed by: Brian Pavon M.D. 06/30/2017 11:12 PM Dictated Date/Time: 06/30/2017 11:11 PM
[2017-07-01] VITALS (28 sets, daily range): BP systolic 96–167; BP diastolic 53–92; PULSE 65–83; TEMP 36.4–36.9; O2SAT 96–100
[2017-07-01] MEDS: SODIUM BICARBONATE 8.4% INJ 150 MEQ in DEXTROSE 5% 1000ML 1,000 ML IV SCH ×3 (01:54→13:33)
[2017-07-01] MEDS ORDERED: INSULIN ASPART 100 UNITS/ML 3 ML PEN SC ONE (02:00)
[2017-07-01] MEDS: HEPARIN SOD 5000 UNIT/0.5 ML CARP SQ SCH ×3 (05:50→21:37)
[2017-07-01 05:51] LABS: HEMOGLOBIN 9.9 g/dL (12.0-16.0); MEAN CELL VOLUME 81.6 fL (80-100); MEAN CORPUSCULAR HEMOGLOBIN 26.1 pg (25-34); MEAN CORPUSCULAR HGB CONC 31.9 g/dl (32-36); MEAN PLATELET VOLUME 9.1 fL (7.4-10.4); PLATELET COUNT 422 K/uL (130-400); RED CELL DISTRIBUTION WIDTH CV 17.5 % (11.5-14.5); RED CELL DISTRIBUTION WIDTH SD 52.3 fL (36.4-46.3); WHITE BLOOD COUNT 7.67 K/uL (4.8-10.8)
[2017-07-01 06:19] LABS: CALCIUM 8.4 mg/dl (8.5-10.1); CREATININE 1.37 mg/dl (0.60-1.20); POTASSIUM 3.6 mmol/L (3.5-5.1)
[2017-07-01 06:21] LABS: PHOSPHORUS 3.2 mg/dl (2.5-4.9)
[2017-07-01] MEDS: TRAMADOL HCL 50 MG TAB PO PRN ×3 (08:43→21:38)
[2017-07-01] MEDS: PANTOprazole SOD 40 MG TAB PO SCH (08:49)
[2017-07-01] MEDS: CHOLECALCIFEROL 1000 INTER.UNIT TAB PO SCH (08:49)
[2017-07-01] MEDS: ATORVASTATIN 20 MG TAB PO SCH (08:49)
[2017-07-01] MEDS: OMEGA-3 (PURIFIED FISH OIL) 1 GM CAP PO SCH ×2 (08:49→20:26)
[2017-07-01] MEDS: SODIUM BICARBONATE 650 MG TAB PO SCH ×3 (08:50→20:27)
[2017-07-01] MEDS: AMLODIPINE BESYLATE 5 MG TAB PO SCH (08:50)
[2017-07-01] MEDS: ONDANSETRON INJ 2 MG/ML 2 ML VIAL IV PRN ×2 (08:55→16:56)
[2017-07-01] MEDS ORDERED: FENOFIBRATE 160 MG PO SCH (09:00)
[2017-07-01] MEDS: INSULIN ASPART 100 UNITS/ML 3 ML PEN SC SCH ×4 (09:03→20:28)
[2017-07-01] MEDS: INSULIN GLARGINE SOLOSTAR 100 UNITS/ML 3 ML PEN SC SCH ×2 (09:04→21:36)
[2017-07-01] MEDS: PREGABALIN 50 MG CAP PO SCH ×3 (09:13→20:24)
--- NOTE | 2017-07-01 10:28 | Pharmacy Progress Note ---
Glycemic Control Intl Consult Date of Service Jul 01, 2017. Scope Glycemic Pharmacist consulted by CLARISA Wadsworth on 06/30/17 for glycemic control and to write orders per [facility] inpatient glycemic control protocol Objective Weight (Kilograms): 81.400 Accuchecks BSG (last 24hrs): Test 06/30/17 14:48 06/30/17 15:25 06/30/17 19:01 06/30/17 21:00 Random Glucose 134 mg/dl (70-99) Bedside Glucose 125 mg/dl (70-90) 80 mg/dl (70-90) 122 mg/dl (70-90) Test 06/30/17 22:09 07/01/17 01:45 07/01/17 03:52 07/01/17 05:32 Random Glucose 139 mg/dl (70-99) 178 mg/dl (70-99) Bedside Glucose 169 mg/dl (70-90) 166 mg/dl (70-90) Test 07/01/17 06:10 Bedside Glucose 164 mg/dl (70-90) Laboratory Data (last 24hrs) Test 06/30/17 14:48 06/30/17 22:09 07/01/17 05:32 Anion Gap 17.0 mmol/L 15.0 mmol/L 12.0 mmol/L BUN/Creatinine Ratio 23.0 21.3 23.3 Blood Urea Nitrogen 39 mg/dl 37 mg/dl 32 mg/dl Creatinine 1.69 mg/dl 1.75 mg/dl 1.37 mg/dl Potassium Level 4.7 mmol/L 4.1 mmol/L 3.6 mmol/L Sodium Level 130 mmol/L 132 mmol/L 132 mmol/L White Blood Count 14.18 K/uL 7.67 K/uL Red Blood Count 4.44 M/uL Hemoglobin 11.6 g/dL Hematocrit 36.7 % Mean Corpuscular Volume 82.7 fL Mean Corpuscular Hemoglobin 26.1 pg Mean Corpuscular Hemoglobin Concent 31.6 g/dl Platelet Count 603 K/uL Mean Platelet Volume 9.4 fL Neutrophils (%) (Auto) 79.0 % Lymphocytes (%) (Auto) 16.6 % Monocytes (%) (Auto) 3.2 % Eosinophils (%) (Auto) 0.5 % Basophils (%) (Auto) 0.3 % Neutrophils # (Auto) 11.21 K/uL Lymphocytes # (Auto) 2.35 K/uL Monocytes # (Auto) 0.46 K/uL Eosinophils # (Auto) 0.07 K/uL Basophils # (Auto) 0.04 K/uL Recent Pertinent Medications Outpatient Anti-diabetic Regimen: * Tresiba 100 units qHS * Humalog 16 w/ breakfast, 20 w/ lunch, 26 w/ dinner * A1c = 13.8 % 04/17/17 The patient is currently receiving: * Basal insulin: Lantus 25 units every 12 hours * Correctional Insulin: Novolog Correction per scale ACHS Goal Range: Low 110 mg/dL - High 150 mg/dL Correction Factor: 10 mg/dL/unit * Prandial insulin: Per carb ratio of 1 unit per 3 grams CHO consumed Risk Factors for Insulin Resistance: * Infection: on Rocephin * IVF: D5 + bicarb @ 200 cc/hr * Diet: type 2 diabetes Assessment & Plan ASSESSMENT: * 42 y/o female with type 2 diabetes, known to the pharmacy glycemic service, admitted with pain/vomiting/diarrhea * Acidotic on arrival (not DKA) and started on a bicarb infusion * Upon review of previous admissions, she requires about 70 units/day as a baseline * Current basal dose is higher than previous admits but I anticipate higher needs from the dextrose IVFs on board - will plan to provide a scale for the basal dose in case the dextrose fluids are stopped * No change to CF/CR as this worked on previous admits PLAN FOR INPATIENT GLYCEMIC CONTROL: * Add scale for Lantus * 15 units BID for BSG less than 150 * 25 units BID for BSG 150 or above * Continue correction factor of 10 mg/dl/unit * Continue carb ratio of 1 unit per 3 grams CHO consumed * Continue goal range of Low 110 mg/dL - High 150 mg/dL * Please note that the plan above was derived based on current level of insulin resistance and hospital stress. These recommendations are appropriate for inpatient admission only. Plan of care upon discharge will need to be reassessed to avoid potential outpatient hypo/hyperglycemia. Thank you.
[2017-07-01] MEDS: PROPRANOLOL HCL 60 MG LA CAP PO SCH ×2 (10:51→20:26)
--- NOTE | 2017-07-01 12:35 | Critical Care Progress Note ---
Critical Care Progress Note Date of Service Jul 01, 2017. Attending Dr. Ruiz Subjective The patient remains asymptomatic, except for mild nausea, no vomiting was reported overnight, no abdominal pain, the patient does have pain mainly in the left pleuritic area due to refracture. No increased swelling or edema in her lower extremities on his sacral area. Her bicarb has improved to the bicarb infusion overnight. Glucose remains controlled. Tolerating oral intake. Objective Physical exam on 07/01/2017 revealed stable patient, stable vital signs, speaks in full sentences, no respiratory or cardiac issues, no pain except for minimal pain in the right pleuritic area, S1-S2 regular rate and rhythm, distant breath sounds bilaterally, abdomen is benign except for mild tenderness in the right upper quadrant. Trace edema in the periphery. Neurologically she is intact. Her laboratory also reviewed which showed improvement in her bicarb from 6-16 and BUN/creatinine remain stable. Hematocrit slightly dropped down. The rest of her labs are unremarkable. Assessment & Plan 1. Severe combined metabolic acidosis with anion gap and non-anion gap. Improving, no anion gap today. 2. Diabetes mellitus, well controlled. 3. The etiology of her buffer loss is unclear, appreciate Dr. Fiore evaluating in that regard. 4 UA did not support the diagnosis of RTA. However, the patient did not have ongoing diarrhea since admission. I am concerned that the patient might not be absorbing her bicarb where she was on 3900 mg daily. 5. History of hypertension. 6. Recent cholecystectomy 2 weeks ago. 7. Right pleuritic chest pain secondary to rib fracture from recent fall. Plan: 1. I will continue with the IV fluids with a bicarb until stated otherwise by Dr. Fiore. 2. Continue with oral intake. 3. Her nausea is much less and did not require even treatment. 4. Glucose control. 5. GI and DVT prophylaxis. 6. Discontinue hydrochlorothiazide. 7. Repeat BMP at 2 PM. 8. Disposition plan once the patient is ready. Likely to regular floor later today or in the morning. Given her previous history of admission to the hospital where she went into severe metabolic acidosis requiring dialysis, I would watch her to the morning. Case discussed with the staff on rounds and details. Critical care time spent with the patient was 45 minutes . Data Medications: Current Inpatient Medications Medications (Trade) Dose Ordered Sig/Yudy Route Start Time Stop Time Status Last Admin Dose Admin Acetaminophen (Tylenol Tab) 650 mg Q4H PRN PO 06/30/17 17:30 07/30/17 17:29 Ondansetron HCl (Zofran Inj) 4 mg Q6H PRN IV 06/30/17 17:30 07/30/17 17:29 07/01/17 08:55 4 MG Nitroglycerin (Nitrostat Tab) 0.4 mg UD PRN SL 06/30/17 17:30 07/30/17 17:29 Albuterol (Ventolin Hfa Inhaler) 2 puffs Q4H PRN INH 06/30/17 17:45 07/30/17 17:44 Amlodipine Besylate (Norvasc Tab) 10 mg DAILY PO 07/01/17 09:00 07/31/17 08:59 07/01/17 08:50 10 MG Atorvastatin Calcium (Lipitor Tab) 20 mg DAILY PO 07/01/17 09:00 07/31/17 08:59 07/01/17 08:49 20 MG Cholecalciferol (Vitamin D Tab) 5,000 inter.unit DAILY PO 07/01/17 09:00 07/31/17 08:59 07/01/17 08:49 5,000 INTER.UNIT Duloxetine HCl (Cymbalta Cap) 60 mg QPM PO 06/30/17 21:00 07/30/17 20:59 06/30/17 19:39 60 MG Fish Oil ([place]-3 (Purified Fish Oil) Cap) 1 gm BID PO 06/30/17 21:00 07/30/17 20:59 07/01/17 08:49 1 GM Pregabalin (Lyrica Cap) 50 mg TID PO 06/30/17 21:00 07/30/17 20:59 07/01/17 09:13 50 MG Pantoprazole Sodium (Protonix Tab) 40 mg QAM PO 07/01/17 09:00 07/31/17 08:59 07/01/17 08:49 40 MG Propranolol HCl (Inderal La Cap) 120 mg BID PO 06/30/17 21:00 07/30/17 20:59 07/01/17 10:51 120 MG Insulin Aspart (novoLOG ASPART) SLIDING SCALE If C... ACHS SC 06/30/17 21:00 07/30/17 20:59 3/24/18 11:38 30 UNITS Glucose (Glucose 40% Gel) 15-30 GRAMS 15 GRAMS... UD PRN PO 06/30/17 17:45 07/30/17 17:44 Glucose (Glucose Chew Tab) 4-8 Tablets 4 Tabl... UD PRN PO 06/30/17 17:45 07/30/17 17:44 Dextrose (Dextrose 50% 50ML Syringe) 25-50ML OF 50% DW IV FOR... UD PRN IV 06/30/17 17:45 07/30/17 17:44 Glucagon (Glucagon Inj) 1 mg UD PRN SQ 06/30/17 17:45 07/30/17 17:44 Miscellaneous Information (Consult Glycemic Management Pharmacy) 1 ea UD PRN N/A 06/30/17 17:56 07/30/17 17:55 Tramadol HCl (Ultram Tab) 50 mg Q6 PRN PO 06/30/17 18:00 07/30/17 17:59 07/01/17 08:43 50 MG Sodium Bicarbonate (Sodium Bicarbonate Tab) 1,300 mg TID PO 06/30/17 21:00 07/30/17 20:59 07/01/17 08:50 1,300 MG Heparin Sodium (Porcine) (Heparin Sq 5000 Unit/0.5ml) 5,000 unit Q8H SQ 06/30/17 22:00 07/30/17 21:59 07/01/17 05:50 5,000 UNIT Miscellaneous Information ([facility] Protocol For Hyperglycemia) 1 ea PRN PRN N/A 06/30/17 18:15 07/02/17 18:14 Miscellaneous Information (Order Awaiting Action) 1 ea QS N/A 07/01/17 00:00 07/31/17 00:00 Sodium Bicarbonate 150 meq/Dextrose 1,150 ml @ 200 mls/hr Q5H45M IV 06/30/17 20:00 07/30/17 19:59 07/01/17 06:57 200 MLS/HR Insulin Glargine (Lantus Solostar Pen) SEE PROTOCOL TEXT Q12 SC 07/01/17 21:00 07/31/17 20:59 Insulin Aspart (novoLOG ASPART) SLIDING SCALE If C... 0200 ONCE SC 07/02/17 02:00 07/02/17 02:01 I & O: 24-Hour Column 07/02/17 07:59 Intake Total 50 ml Output Total 425 ml Balance -375 ml Vital Signs: Date Time Temp Pulse Resp B/P (MAP) Pulse Ox O2 Delivery O2 Flow Rate FiO2 07/01/17 12:09 Room Air 07/01/17 10:00 72 14 133/85 (101) 100 Room Air 07/01/17 09:00 66 17 139/83 (101) 99 Room Air 07/01/17 08:00 Room Air 07/01/17 08:00 36.5 68 16 145/69 (94) 99 Room Air 07/01/17 06:01 72 13 167/92 (117) 100 07/01/17 06:00 72 13 100 07/01/17 05:01 70 14 137/82 (100) 100 07/01/17 05:00 71 15 100 07/01/17 04:01 36.6 65 13 122/84 (97) 100 07/01/17 04:00 Room Air 07/01/17 04:00 65 14 100 07/01/17 03:01 71 15 123/83 (96) 100 07/01/17 03:00 72 15 100 07/01/17 02:00 71 14 100 07/01/17 01:01 74 11 119/78 (92) 100 07/01/17 01:00 72 18 100 07/01/17 00:00 36.5 72 17 100 06/30/17 23:59 Room Air 06/30/17 23:01 67 14 111/66 (81) 98 06/30/17 23:00 68 14 97 06/30/17 22:01 67 15 138/90 (106) 100 06/30/17 22:00 61 22 97 06/30/17 21:01 63 14 113/74 (87) 98 06/30/17 21:00 63 17 98 06/30/17 20:02 65 17 106/69 (81) 97 06/30/17 20:00 36.4 71 17 99 06/30/17 19:34 70 19 137/98 (111) 96 06/30/17 19:00 36.4 67 17 111/66 96 Room Air 06/30/17 17:31 72 18 125/71 96 Room Air 06/30/17 17:01 139/82 06/30/17 16:33 75 06/30/17 16:31 173/97 06/30/17 16:01 74 18 143/94 97 Room Air 06/30/17 15:39 69 18 115/69 97 Room Air 06/30/17 13:47 36.3 69 20 139/88 100 Room Air Laboratory Results: Last 24 Hours Test 06/30/17 14:30 06/30/17 14:48 06/30/17 14:55 06/30/17 15:25 White Blood Count 14.18 K/uL Red Blood Count 4.44 M/uL Hemoglobin 11.6 g/dL Hematocrit 36.7 % Mean Corpuscular Volume 82.7 fL Mean Corpuscular Hemoglobin 26.1 pg Mean Corpuscular Hemoglobin Concent 31.6 g/dl Platelet Count 603 K/uL Mean Platelet Volume 9.4 fL Neutrophils (%) (Auto) 79.0 % Lymphocytes (%) (Auto) 16.6 % Monocytes (%) (Auto) 3.2 % Eosinophils (%) (Auto) 0.5 % Basophils (%) (Auto) 0.3 % Neutrophils # (Auto) 11.21 K/uL Lymphocytes # (Auto) 2.35 K/uL Monocytes # (Auto) 0.46 K/uL Eosinophils # (Auto) 0.07 K/uL Basophils # (Auto) 0.04 K/uL RDW Standard Deviation 53.1 fL RDW Coefficient of Variation 17.5 % Immature Granulocyte % (Auto) 0.4 % Immature Granulocyte # (Auto) 0.05 K/uL Prothrombin Time 10.8 SECONDS Prothromb Time International Ratio 1.0 D-Dimer 790 ug/L FEU Arterial Blood pH 7.14 Arterial Blood Partial Pressure CO2 29 mmHg Arterial Blood Partial Pressure O2 108 mm/Hg Arterial Blood HCO3 10 mmol/L Arterial Blood Oxygen Saturation 96.9 % Arterial Blood Base Excess -17.9 mEq/L Arterial Blood Gas Delivery ROOM AIR Mickey Test POS Sodium Level 130 mmol/L Potassium Level 4.7 mmol/L Chloride Level 105 mmol/L Carbon Dioxide Level 8 mmol/L Anion Gap 17.0 mmol/L Blood Urea Nitrogen 39 mg/dl Creatinine 1.69 mg/dl Est Creatinine Clear Calc Drug Dose 42.5 ml/min Estimated GFR () 42.1 Estimated GFR (Non- 36.3 BUN/Creatinine Ratio 23.0 Random Glucose 134 mg/dl Osmolality 291 mOsm/kg Calcium Level 9.5 mg/dl Phosphorus Level 5.9 mg/dl Magnesium Level 2.5 mg/dl Total Bilirubin 0.5 mg/dl Direct Bilirubin < 0.1 mg/dl Aspartate Amino Transf (AST/SGOT) 13 U/L Alanine Aminotransferase (ALT/SGPT) 19 U/L Alkaline Phosphatase 87 U/L Total Creatine Kinase 73 U/L Troponin I < 0.015 ng/ml Total Protein 8.3 gm/dl Albumin 4.1 gm/dl Lipase 369 U/L Beta-Hydroxybutyric Acid 1.68 mg/dL Procalcitonin 5.87 ng/ml Thyroid Stimulating Hormone (TSH) 0.187 uIu/ml Bedside Lactic Acid Venous 0.36 mmol/L Bedside Glucose 125 mg/dl Test 06/30/17 17:18 06/30/17 19:01 06/30/17 19:45 06/30/17 21:00 Arterial Blood pH 7.10 Arterial Blood Partial Pressure CO2 31 mmHg Arterial Blood Partial Pressure O2 97 mm/Hg Arterial Blood HCO3 10 mmol/L Arterial Blood Oxygen Saturation 95.7 % Arterial Blood Base Excess -18.8 mEq/L Arterial Blood Gas Delivery ROOM AIR Mickey Test POS Bedside Glucose 80 mg/dl 122 mg/dl Salicylates Level 2.4 mg/dl Acetaminophen Level 26 ug/ml Test 06/30/17 21:16 06/30/17 22:09 07/01/17 01:45 07/01/17 03:52 Urine Color YELLOW Urine Appearance CLEAR Urine pH 5.5 Urine Specific [place] 1.025 Urine Protein 2+ Urine Glucose (UA) NEG Urine Ketones NEG Urine Occult Blood NEG Urine Nitrite NEG Urine Bilirubin NEG Urine Urobilinogen NEG Urine Leukocyte Esterase NEG Urine WBC (Auto) 1-5 /hpf Urine RBC (Auto) 0-4 /hpf Urine Hyaline Casts (Auto) 1-5 /lpf Urine Epithelial Cells (Auto) >30 /lpf Urine Bacteria (Auto) NEG Urine Osmolality 435 mOms/kg Urine Random Sodium 63 mEq/L Urine Random Potassium 56.6 mEq/L Urine Random Chloride 29 mEq/L Urine Opiates Screen POS Urine Methadone, Qualitative NEG Urine Barbiturates NEG Urine Phencyclidine (PCP) Level NEG Ur Amphetamine/Methamphetamine NEG MDMA (Ecstasy) Screen NEG Urine Benzodiazepines Screen POS Urine Cocaine Metabolite NEG Urine Marijuana (THC) NEG Sodium Level 132 mmol/L Potassium Level 4.1 mmol/L Chloride Level 106 mmol/L Carbon Dioxide Level 11 mmol/L Anion Gap 15.0 mmol/L Blood Urea Nitrogen 37 mg/dl Creatinine 1.75 mg/dl Est Creatinine Clear Calc Drug Dose 41.1 ml/min Estimated GFR () 40.3 Estimated GFR (Non- 34.8 BUN/Creatinine Ratio 21.3 Random Glucose 139 mg/dl Calcium Level 8.9 mg/dl Bedside Glucose 169 mg/dl 166 mg/dl Test 07/01/17 05:13 07/01/17 05:32 07/01/17 06:10 07/01/17 11:33 Blood Gas Sample Site L Radial Bedside Blood Gas pH (LAB) 7.27 Bedside Blood Gas pCO2 (LAB) 31 mmHg Bedside Blood Gas pO2 (LAB) 83 mmHg Bedside Blood Gas HCO3 (LAB) 14 meq/L Bedside Blood Gas Total CO2 15 mEq/l Bedside Blood Gas Base Excess (LAB) -13.0 meq/L Bedside Blood Gas O2 Saturation 95.0 % Mickey Test Pass Oxygen Delivery Device Room Air White Blood Count 7.67 K/uL Red Blood Count 3.80 M/uL Hemoglobin 9.9 g/dL Hematocrit 31.0 % Mean Corpuscular Volume 81.6 fL Mean Corpuscular Hemoglobin 26.1 pg Mean Corpuscular Hemoglobin Concent 31.9 g/dl RDW Standard Deviation 52.3 fL RDW Coefficient of Variation 17.5 % Platelet Count 422 K/uL Mean Platelet Volume 9.1 fL Sodium Level 132 mmol/L Potassium Level 3.6 mmol/L Chloride Level 104 mmol/L Carbon Dioxide Level 16 mmol/L Anion Gap 12.0 mmol/L Blood Urea Nitrogen 32 mg/dl Creatinine 1.37 mg/dl Est Creatinine Clear Calc Drug Dose 52.9 ml/min Estimated GFR () 54.2 Estimated GFR (Non- 46.8 BUN/Creatinine Ratio 23.3 Random Glucose 178 mg/dl Calcium Level 8.4 mg/dl Phosphorus Level 3.2 mg/dl Magnesium Level 2.3 mg/dl Bedside Glucose 164 mg/dl 225 mg/dl
[2017-07-01 15:42] LABS: CALCIUM 8.1 mg/dl (8.5-10.1); CREATININE 1.21 mg/dl (0.60-1.20); POTASSIUM 2.8 mmol/L (3.5-5.1)
[2017-07-01] MEDS: POTASSIUM CHLR 20 MEQ / WTR 20 MEQ in PREMIXED WATER 100 ML IV SCH ×3 (18:13→22:37)
[2017-07-01] MEDS: POTASSIUM CHLORIDE IV SCH (20:12)
[2017-07-01] MEDS: [UNRECOGNIZED DRUG - OTHER] IV SCH (20:12)
[2017-07-01] MEDS: SODIUM BICARBONATE IV SCH (20:12)
[2017-07-01] MEDS: ACETAMINOPHEN 325 MG TAB PO PRN (20:24)
[2017-07-01] MEDS: DULOXETINE HCL 60 MG CAP PO SCH (20:25)
--- NOTE | 2017-07-01 21:12 | Progress Note ---
Medicine Progress Note Date & Time of Visit: Jul 01, 2017 at 20:43. Subjective Patient reports feeling better overall, denies any additional N/V/D. Denies any SOB. She has ongoing pain in her chest and back from her recent fall but otherwise denies additional symptoms. Tolerating PO. Objective Last 8 Hrs Date Time Temp Pulse Resp B/P (MAP) Pulse Ox O2 Delivery O2 Flow Rate FiO2 07/01/17 20:36 Room Air 07/01/17 19:29 36.9 07/01/17 18:00 83 14 128/84 (99) 99 Room Air 07/01/17 17:00 36.5 82 19 153/79 (103) 99 Room Air 07/01/17 16:00 75 18 128/78 (95) 96 Room Air 07/01/17 16:00 Room Air 07/01/17 15:00 77 17 106/70 (82) 98 Room Air 07/01/17 14:00 77 14 108/65 (79) 97 Room Air 07/01/17 13:00 79 14 109/63 (78) 96 Room Air Physical Exam: GENERAL: Patient is in no acute distress. HEENT: No acute trauma, normocephalic, mucous membranes moist, no nasal congestion, no scleral icterus. NECK: No stridor, trachea is midline. LUNGS: Clear to auscultation bilaterally, no wheeze, no rhonchi, breath sounds equal. HEART: Without murmurs gallops or rubs, regular rate and rhythm. Right side chest and abdomen tender ABDOMEN: Soft, nontender, bowel sounds positive EXTREMITIES: No cyanosis or edema, full range of motion of all the joints without pain or difficulty, no signs for acute trauma. NEUROLOGIC: Oriented x 3, no acute motor or sensory deficits, no focal weakness. SKIN: No rash, no jaundice, no diaphoresis. Laboratory Results: Last 24 Hours Test 06/30/17 21:00 06/30/17 21:16 06/30/17 22:09 07/01/17 01:45 Bedside Glucose 122 mg/dl 169 mg/dl Urine Color YELLOW Urine Appearance CLEAR Urine pH 5.5 Urine Specific [place] 1.025 Urine Protein 2+ Urine Glucose (UA) NEG Urine Ketones NEG Urine Occult Blood NEG Urine Nitrite NEG Urine Bilirubin NEG Urine Urobilinogen NEG Urine Leukocyte Esterase NEG Urine WBC (Auto) 1-5 /hpf Urine RBC (Auto) 0-4 /hpf Urine Hyaline Casts (Auto) 1-5 /lpf Urine Epithelial Cells (Auto) >30 /lpf Urine Bacteria (Auto) NEG Urine Osmolality 435 mOms/kg Urine Random Sodium 63 mEq/L Urine Random Potassium 56.6 mEq/L Urine Random Chloride 29 mEq/L Urine Opiates Screen POS Urine Methadone, Qualitative NEG Urine Barbiturates NEG Urine Phencyclidine (PCP) Level NEG Ur Amphetamine/Methamphetamine NEG MDMA (Ecstasy) Screen NEG Urine Benzodiazepines Screen POS Urine Cocaine Metabolite NEG Urine Marijuana (THC) NEG Sodium Level 132 mmol/L Potassium Level 4.1 mmol/L Chloride Level 106 mmol/L Carbon Dioxide Level 11 mmol/L Anion Gap 15.0 mmol/L Blood Urea Nitrogen 37 mg/dl Creatinine 1.75 mg/dl Est Creatinine Clear Calc Drug Dose 41.1 ml/min Estimated GFR () 40.3 Estimated GFR (Non- 34.8 BUN/Creatinine Ratio 21.3 Random Glucose 139 mg/dl Calcium Level 8.9 mg/dl Test 07/01/17 03:52 07/01/17 05:13 07/01/17 05:32 07/01/17 06:10 Bedside Glucose 166 mg/dl 164 mg/dl Blood Gas Sample Site L Radial Bedside Blood Gas pH (LAB) 7.27 Bedside Blood Gas pCO2 (LAB) 31 mmHg Bedside Blood Gas pO2 (LAB) 83 mmHg Bedside Blood Gas HCO3 (LAB) 14 meq/L Bedside Blood Gas Total CO2 15 mEq/l Bedside Blood Gas Base Excess (LAB) -13.0 meq/L Bedside Blood Gas O2 Saturation 95.0 % Mickey Test Pass Oxygen Delivery Device Room Air White Blood Count 7.67 K/uL Red Blood Count 3.80 M/uL Hemoglobin 9.9 g/dL Hematocrit 31.0 % Mean Corpuscular Volume 81.6 fL Mean Corpuscular Hemoglobin 26.1 pg Mean Corpuscular Hemoglobin Concent 31.9 g/dl RDW Standard Deviation 52.3 fL RDW Coefficient of Variation 17.5 % Platelet Count 422 K/uL Mean Platelet Volume 9.1 fL Sodium Level 132 mmol/L Potassium Level 3.6 mmol/L Chloride Level 104 mmol/L Carbon Dioxide Level 16 mmol/L Anion Gap 12.0 mmol/L Blood Urea Nitrogen 32 mg/dl Creatinine 1.37 mg/dl Est Creatinine Clear Calc Drug Dose 52.9 ml/min Estimated GFR () 54.2 Estimated GFR (Non- 46.8 BUN/Creatinine Ratio 23.3 Random Glucose 178 mg/dl Calcium Level 8.4 mg/dl Phosphorus Level 3.2 mg/dl Magnesium Level 2.3 mg/dl Test 07/01/17 11:33 07/01/17 14:17 07/01/17 16:31 07/01/17 17:30 Bedside Glucose 225 mg/dl 183 mg/dl Sodium Level 134 mmol/L Potassium Level 2.8 mmol/L Chloride Level 102 mmol/L Carbon Dioxide Level 27 mmol/L Anion Gap 5.0 mmol/L Blood Urea Nitrogen 25 mg/dl Creatinine 1.21 mg/dl Est Creatinine Clear Calc Drug Dose 59.9 ml/min Estimated GFR () 63.0 Estimated GFR (Non- 54.4 BUN/Creatinine Ratio 20.9 Random Glucose 172 mg/dl Calcium Level 8.1 mg/dl Phosphorus Level 2.1 mg/dl Venous Blood pH 7.44 Venous Blood Partial Pressure CO2 45 mmHg Venous Blood Partial Pressure O2 32 mmHg Venous Blood HCO3 30 mmol/L Venous Blood Oxygen Saturation 61.1 % Venous Blood Base Excess 5.7 mEq/L Test 07/01/17 20:03 Bedside Glucose 121 mg/dl Date/Time Source Procedure Growth Status 06/30/17 22:09 Blood Blood Culture Pending Received 06/30/17 21:16 Urine , Clean Catch Urine Culture Pending Received Assessment & Plan METABOLIC ACIDOSIS: -on admission pH: 7.1//108/10 bicarb 8. +anion gap but no DKA; now anion gap has closed -with chronic hypobicarbonatemia; was on chronic PO bicarb replacements -vitals stable and no mental status changes noted -remain in ICU due to history of rapid decompensation in the past -[facility] consulted, appreciate recs -Nephrology consulted appreciate management; on oral bicarb, bicarb IV and LR -Salicylate, acetaminophen levels neg -phosphorus low -TSH low, will check free T4 OK ON CKD STAGE III: -Cr: 1.6-->1.17 -was 1.3 on 06/26/17. (range 1.3-2.2) -IV fluids continued -monitor renal functions -avoid nephrotoxic agents when possible RIGHT RIB FRACTURE: secondary to recent fall -fell a couple days ago -CXR: Right rib fractures in 5,6,7 -tramadol prn pain -incentive spirometer encouraged ELEVATED D-DIMER: -D-dimer: 790 -U/S BLE ordered to r/o DVT. Holding on CTA chest secondary to pt's CKD LEUKOCYTOSIS: -Afebrile. WBC: 14. Lactic acid: 0.36. procalcitonin slightly elevated -blood and urine cultures pending HYPONATREMIA: -Na: 130-->134 -IV fluids -monitor electrolytes RIGHT BREAST PAIN: -continue to monitor, will need outpatient imaging; unable to inpatient as US does not perform whole breast US DM TYPE II: -has a hx of uncontrolled BSG in the past -continue basal insulin, NovoLog sliding scale per protocol -glycemic pharmacy consulted, appreciate input HTN: -continue amlodipine, propranolol -hold lisinopril and HCTZ in light of above DYSLIPIDEMIA: -continue statin DEPRESSION: -continue cymbalta GERD: -continue PPI Current Inpatient Medications: Current Inpatient Medications Medications (Trade) Dose Ordered Sig/Yudy Route Start Time Stop Time Status Last Admin Dose Admin Acetaminophen (Tylenol Tab) 650 mg Q4H PRN PO 06/30/17 17:30 07/30/17 17:29 07/01/17 20:24 650 MG Ondansetron HCl (Zofran Inj) 4 mg Q6H PRN IV 06/30/17 17:30 07/30/17 17:29 07/01/17 16:56 4 MG Nitroglycerin (Nitrostat Tab) 0.4 mg UD PRN SL 06/30/17 17:30 07/30/17 17:29 Albuterol (Ventolin Hfa Inhaler) 2 puffs Q4H PRN INH 06/30/17 17:45 07/30/17 17:44 Amlodipine Besylate (Norvasc Tab) 10 mg DAILY PO 07/01/17 09:00 07/31/17 08:59 07/01/17 08:50 10 MG Atorvastatin Calcium (Lipitor Tab) 20 mg DAILY PO 07/01/17 09:00 07/31/17 08:59 07/01/17 08:49 20 MG Cholecalciferol (Vitamin D Tab) 5,000 inter.unit DAILY PO 07/01/17 09:00 07/31/17 08:59 07/01/17 08:49 5,000 INTER.UNIT Duloxetine HCl (Cymbalta Cap) 60 mg QPM PO 06/30/17 21:00 07/30/17 20:59 07/01/17 20:25 60 MG Fish Oil ([place]-3 (Purified Fish Oil) Cap) 1 gm BID PO 06/30/17 21:00 07/30/17 20:59 07/01/17 20:26 1 GM Pregabalin (Lyrica Cap) 50 mg TID PO 06/30/17 21:00 07/30/17 20:59 07/01/17 20:24 50 MG Pantoprazole Sodium (Protonix Tab) 40 mg QAM PO 07/01/17 09:00 07/31/17 08:59 07/01/17 08:49 40 MG Propranolol HCl (Inderal La Cap) 120 mg BID PO 06/30/17 21:00 07/30/17 20:59 07/01/17 20:26 120 MG Insulin Aspart (novoLOG ASPART) SLIDING SCALE If C... ACHS SC 06/30/17 21:00 07/30/17 20:59 07/01/17 17:15 7 UNITS Glucose (Glucose 40% Gel) 15-30 GRAMS 15 GRAMS... UD PRN PO 06/30/17 17:45 07/30/17 17:44 Glucose (Glucose Chew Tab) 4-8 Tablets 4 Tabl... UD PRN PO 06/30/17 17:45 07/30/17 17:44 Dextrose (Dextrose 50% 50ML Syringe) 25-50ML OF 50% DW IV FOR... UD PRN IV 06/30/17 17:45 07/30/17 17:44 Glucagon (Glucagon Inj) 1 mg UD PRN SQ 06/30/17 17:45 07/30/17 17:44 Miscellaneous Information (Consult Glycemic Management Pharmacy) 1 ea UD PRN N/A 06/30/17 17:56 07/30/17 17:55 Tramadol HCl (Ultram Tab) 50 mg Q6 PRN PO 06/30/17 18:00 07/30/17 17:59 07/01/17 15:58 50 MG Sodium Bicarbonate (Sodium Bicarbonate Tab) 1,300 mg TID PO 06/30/17 21:00 4/22/18 20:59 07/01/17 20:27 1,300 MG Heparin Sodium (Porcine) (Heparin Sq 5000 Unit/0.5ml) 5,000 unit Q8H SQ 06/30/17 22:00 07/30/17 21:59 07/01/17 14:23 5,000 UNIT Miscellaneous Information (Icu Protocol For Hyperglycemia) 1 ea PRN PRN N/A 06/30/17 18:15 07/02/17 18:14 Miscellaneous Information (Order Awaiting Action) 1 ea QS N/A 07/01/17 00:00 07/31/17 00:00 Insulin Glargine (Lantus Solostar Pen) SEE PROTOCOL TEXT Q12 SC 07/01/17 21:00 07/31/17 20:59 Insulin Aspart (novoLOG ASPART) SLIDING SCALE If C... 0200 ONCE SC 07/02/17 02:00 07/02/17 02:01 Potassium Chloride 20 meq/ Prmx 100 ml @ 50 mls/hr Q2H IV 07/01/17 18:30 07/02/17 02:29 07/01/17 20:13 50 MLS/HR Sodium Bicarbonate 75 meq/Potassium Chloride 20 meq/ Sodium Chloride 1,085 ml @ 125 mls/hr Q8H41M IV 07/01/17 18:15 07/31/17 18:14 07/01/17 20:12 125 MLS/HR
[2017-07-01 22:20] LABS: CALCIUM 8.2 mg/dl (8.5-10.1); CREATININE 0.98 mg/dl (0.60-1.20); POTASSIUM 3.3 mmol/L (3.5-5.1)
[2017-07-02] VITALS (17 sets, daily range): BP systolic 103–158; BP diastolic 58–95; PULSE 52–87; TEMP 36.7–37.2; O2SAT 96–100
[2017-07-02] MEDS: POTASSIUM CHLR 20 MEQ / WTR 20 MEQ in PREMIXED WATER 100 ML IV SCH (01:20)
[2017-07-02] MEDS ORDERED: INSULIN ASPART 100 UNITS/ML 3 ML PEN SC ONE (02:00)
[2017-07-02] MEDS: [UNRECOGNIZED DRUG - OTHER] IV SCH (03:41)
[2017-07-02] MEDS: POTASSIUM CHLORIDE IV SCH (03:41)
[2017-07-02] MEDS: SODIUM BICARBONATE IV SCH (03:41)
[2017-07-02 05:55] LABS: BASO % 0.2 %; BASO ABS # 0.01 K/uL (0-0.2); EOS % 1.1 %; EOS ABS # 0.06 K/uL (0-0.5); HEMATOCRIT 26.9 % (37-47); HEMOGLOBIN 8.7 g/dL (12.0-16.0); IG# 0.01 K/uL (0.00-0.02); LYMPH % 44.4 %; LYMPH ABS # 2.39 K/uL (1.2-3.4); MEAN CELL VOLUME 80.8 fL (80-100); MEAN CORPUSCULAR HEMOGLOBIN 26.1 pg (25-34); MEAN CORPUSCULAR HGB CONC 32.3 g/dl (32-36); MEAN PLATELET VOLUME 8.6 fL (7.4-10.4); MONO % 9.5 %; MONO ABS # 0.51 K/uL (0.11-0.59); NEUT % 44.6 %; PLATELET COUNT 337 K/uL (130-400); RED CELL DISTRIBUTION WIDTH CV 17.4 % (11.5-14.5); RED CELL DISTRIBUTION WIDTH SD 51.9 fL (36.4-46.3); WHITE BLOOD COUNT 5.38 K/uL (4.8-10.8)
[2017-07-02 06:36] LABS: CALCIUM 8.5 mg/dl (8.5-10.1); CREATININE 0.7 mg/dl (0.60-1.20); POTASSIUM 3.4 mmol/L (3.5-5.1)
[2017-07-02] MEDS: HEPARIN SOD 5000 UNIT/0.5 ML CARP SQ SCH ×3 (06:38→20:58)
[2017-07-02 06:47] LABS: PHOSPHORUS 1.2 mg/dl (2.5-4.9)
[2017-07-02] MEDS: OMEGA-3 (PURIFIED FISH OIL) 1 GM CAP PO SCH ×2 (07:45→20:54)
[2017-07-02] MEDS: SODIUM BICARBONATE 650 MG TAB PO SCH ×4 (07:45→20:54)
[2017-07-02] MEDS: CHOLECALCIFEROL 1000 INTER.UNIT TAB PO SCH (07:45)
[2017-07-02] MEDS: AMLODIPINE BESYLATE 5 MG TAB PO SCH (07:46)
[2017-07-02] MEDS: PANTOprazole SOD 40 MG TAB PO SCH (07:46)
[2017-07-02] MEDS: PROPRANOLOL HCL 60 MG LA CAP PO SCH ×2 (07:46→20:55)
[2017-07-02] MEDS: ATORVASTATIN 20 MG TAB PO SCH (07:46)
[2017-07-02] MEDS: INSULIN ASPART 100 UNITS/ML 3 ML PEN SC SCH ×4 (08:00→20:55)
[2017-07-02] MEDS: INSULIN GLARGINE SOLOSTAR 100 UNITS/ML 3 ML PEN SC SCH ×2 (08:01→20:57)
[2017-07-02] MEDS: PREGABALIN 50 MG CAP PO SCH ×3 (08:03→20:53)
--- NOTE | 2017-07-02 08:40 | Pharmacy Progress Note ---
Pharmacy Glycemic Short Note 2 Date of Service Jul 02, 2017. OUTPATIENT ANTIDIABETIC REGIMEN: * Tresiba 100 units qHS * Humalog 16 w/ breakfast, 20 w/ lunch, 26 w/ dinner * A1c = 13.8 % 04/17/17 Test 07/01/17 11:33 07/01/17 14:17 07/01/17 16:31 07/01/17 20:03 Bedside Glucose 225 mg/dl (70-90) 183 mg/dl (70-90) 121 mg/dl (70-90) Random Glucose 172 mg/dl (70-99) Test 07/01/17 21:33 07/02/17 02:01 07/02/17 05:40 Random Glucose 109 mg/dl (70-99) 90 mg/dl (70-99) Bedside Glucose 89 mg/dl (70-90) ASSESSMENT: 07/02/17 * Ms. Rhodes received 79 units of insulin yesterday * Changes to causes of insulin resistance: * Dextrose IVFs d/c'd ~1700 yesterday * Fasting slightly below goal but will receive lower dose of Lantus this AM * Anticipate needs going back to ~60-70 units/day, similar to previous admit * Will continue same Lantus scale in case higher dose is necessary d/t added stressors * Loosen CR slightly to be consistent w/ previous dosing 07/01/17 * 42 y/o female with type 2 diabetes, known to the pharmacy glycemic service, admitted with pain/vomiting/diarrhea * Acidotic on arrival (not DKA) and started on a bicarb infusion * Upon review of previous admissions, she requires about 70 units/day as a baseline * Current basal dose is higher than previous admits but I anticipate higher needs from the dextrose IVFs on board - will plan to provide a scale for the basal dose in case the dextrose fluids are stopped * No change to CF/CR as this worked on previous admits PLAN FOR INPATIENT GLYCEMIC CONTROL: * Basal insulin - no change * Lantus 15 units SQ BID * Lantus 25 units SQ BID (for BSG 150 or above) * Bolus insulin * NovoLog per scale ACHS or Q6hrs while NPO * Goal Range: Low 110 mg/dL - High 150 mg/dL * Correction Factor: 10 mg/dL/unit * LOOSEN Nutritional / Prandial insulin per carb ratio of 1 unit per 4 grams CHO consumed
[2017-07-02] MEDS: SODIUM CHLOR 0.45% + 20MEQ KCL 1,000 ML IV SCH ×2 (09:13→20:55)
[2017-07-02] MEDS: POT PHOSPHATE MONOBASIC W/ SOD TAB PO SCH ×4 (09:13→20:54)
--- NOTE | 2017-07-02 09:23 | Nephrology Consultation ---
Nephrology Consultation Date of Consultation: Jul 01, 2017. Attending Physician: Dr Lopez Requesting Physician: Dr Riley Reason for Consultation: recurrent severe metabolic acidosis History of Present Illness 42 year old female returns for her 4 th admission so far this year for severe metabolic acidosis, which has on 2 admissions earlier this year required emergent dialysis and on one occasion intubation. Other PMH includes DM, HTN, GERD, active tobacco abuse, chronic suppurative hidradenitis, and as below. Follows w/ Dr. Everett in CKD clinic for recurrent OK, for unexplained metabolic acidosis, for CKD/labile renal function. She was d/c from her recently after 06/11-06/17 admission for acid/base disorder >> underwent lap toro that admission d/ t concern for gallstone pancreatitis. She takes high dose bicarbonate po and at times K supplements. Since last hospital d/c, bicarb has run 21-23 w/ last check on 06/26; had been having some issues w/ hyperkalemia on these labs and K adjusted. Also of note, on 06/19 she had a syncopal episode after eating no breakfast/ taking no insulin (BG was 95 at the time) and fractured several R ribs. Denies other acute illness until 2 days prior to presentation when she developed R breast pain (often for unexplained reasons precedes these severe acidemic episodes) as well as NBNB N/V. She also had 3 watery minimally formed non bloody loose bowel movements on the day of admission. She denies any f/c, respiratory or urinary sx or edema. Presentation labs yesterday afternoon were remarkable for WBC 14k; ABG 7.14/29/108/ 10. Her presenting creatinine was 1.7 , w/ K 4.7, Na 130, bicarb 8, chloride 105. She was given lactated ringer's originally then changed to bicarb gtt at 200 mL hourly. Labs this am remarkable for ABG 7.27/ 31/83/ 14; bicarb 16, creat 1.4. feeling improved mostly though still w/ n this am. Past Medical/Surgical History Medical Problems: (1) Abdominal pain Status: Acute (2) Acidosis Status: Acute (3) Breast pain, right Status: Acute (4) Confusion Status: Acute (5) Constipation Status: Acute (6) Dehydration Status: Acute (7) Dehydration Status: Acute (8) Dehydration Status: Acute (9) Hyperammonemia Status: Acute (10) Pneumonia Status: Acute (11) Right rib fracture Status: Acute -DM, w/ multiple episodes of DKA most recently 05/2017 -HTN -CKD4 w/ baseline creatinine 1.7-2.2 per [facility] 04/2017 ckd clinic note; ckd attributed to dm, htn, hx heavy nsaid use -chronic metabolic acidosis multifactorial -intermittent hypercalcemia -hx salmonella infection -active tobacco abuse -obesity -severe chronic suppurative hidradenitis w/ sepsis -04/2017 admission for DKA, C diff, needed acute HD -05/2017 admission for sepsis syndrome w/o source and severe metabolic acidosis, needed acute HD -hospitalization 2013 for OK/severe acidosis -hospitalized 2012 w/ VDRF/trach, partial colectomy d/t C diff -chronic back pain Family History Diabetes mellitus Heart disease Social History Smoking Status: Current Every Day Smoker Alcohol Use: none Drug Use: none Marital Status: Housing Status: lives with family Occupation Status: employed Allergies Coded Allergies: BEE STING (Verified Allergy, Intermediate, RED, SHORT OF BREATH, 06/30/17) Medications Current Inpatient Medications Medications (Trade) Dose Ordered Sig/Yudy Route Start Time Stop Time Status Last Admin Dose Admin Acetaminophen (Tylenol Tab) 650 mg Q4H PRN PO 06/30/17 17:30 07/30/17 17:29 Ondansetron HCl (Zofran Inj) 4 mg Q6H PRN IV 06/30/17 17:30 07/30/17 17:29 07/01/17 08:55 4 MG Nitroglycerin (Nitrostat Tab) 0.4 mg UD PRN SL 06/30/17 17:30 07/30/17 17:29 Albuterol (Ventolin Hfa Inhaler) 2 puffs Q4H PRN INH 06/30/17 17:45 07/30/17 17:44 Amlodipine Besylate (Norvasc Tab) 10 mg DAILY PO 07/01/17 09:00 07/31/17 08:59 07/01/17 08:50 10 MG Atorvastatin Calcium (Lipitor Tab) 20 mg DAILY PO 07/01/17 09:00 07/31/17 08:59 07/01/17 08:49 20 MG Cholecalciferol (Vitamin D Tab) 5,000 inter.unit DAILY PO 07/01/17 09:00 07/31/17 08:59 07/01/17 08:49 5,000 INTER.UNIT Duloxetine HCl (Cymbalta Cap) 60 mg QPM PO 06/30/17 21:00 07/30/17 20:59 06/30/17 19:39 60 MG Fish Oil ([place]-3 (Purified Fish Oil) Cap) 1 gm BID PO 06/30/17 21:00 07/30/17 20:59 07/01/17 08:49 1 GM Pregabalin (Lyrica Cap) 50 mg TID PO 06/30/17 21:00 07/30/17 20:59 07/01/17 14:23 50 MG Pantoprazole Sodium (Protonix Tab) 40 mg QAM PO 07/01/17 09:00 07/31/17 08:59 07/01/17 08:49 40 MG Propranolol HCl (Inderal La Cap) 120 mg BID PO 06/30/17 21:00 07/30/17 20:59 07/01/17 10:51 120 MG Insulin Aspart (novoLOG ASPART) SLIDING SCALE If C... ACHS SC 06/30/17 21:00 07/30/17 20:59 07/01/17 11:38 30 UNITS Glucose (Glucose 40% Gel) 15-30 GRAMS 15 GRAMS... UD PRN PO 06/30/17 17:45 07/30/17 17:44 Glucose (Glucose Chew Tab) 4-8 Tablets 4 Tabl... UD PRN PO 06/30/17 17:45 07/30/17 17:44 Dextrose (Dextrose 50% 50ML Syringe) 25-50ML OF 50% DW IV FOR... UD PRN IV 06/30/17 17:45 07/30/17 17:44 Glucagon (Glucagon Inj) 1 mg UD PRN SQ 06/30/17 17:45 07/30/17 17:44 Miscellaneous Information (Consult Glycemic Management Pharmacy) 1 ea UD PRN N/A 06/30/17 17:56 07/30/17 17:55 Tramadol HCl (Ultram Tab) 50 mg Q6 PRN PO 06/30/17 18:00 07/30/17 17:59 07/01/17 08:43 50 MG Sodium Bicarbonate (Sodium Bicarbonate Tab) 1,300 mg TID PO 06/30/17 21:00 07/30/17 20:59 07/01/17 14:24 1,300 MG Heparin Sodium (Porcine) (Heparin Sq 5000 Unit/0.5ml) 5,000 unit Q8H SQ 06/30/17 22:00 07/30/17 21:59 07/01/17 14:23 5,000 UNIT Miscellaneous Information ([facility] Protocol For Hyperglycemia) 1 ea PRN PRN N/A 06/30/17 18:15 07/02/17 18:14 Miscellaneous Information (Order Awaiting Action) 1 ea QS N/A 07/01/17 00:00 07/31/17 00:00 Sodium Bicarbonate 150 meq/Dextrose 1,150 ml @ 200 mls/hr Q5H45M IV 06/30/17 20:00 07/30/17 19:59 07/01/17 13:33 200 MLS/HR Insulin Glargine (Lantus Solostar Pen) SEE PROTOCOL TEXT Q12 SC 07/01/17 21:00 07/31/17 20:59 Insulin Aspart (novoLOG ASPART) SLIDING SCALE If C... 0200 ONCE SC 07/02/17 02:00 07/02/17 02:01 Home Meds and Scripts Medications Dose Route/Sig Max Daily Dose Days Date Category Dose Instructions Lisinopril 20 Mg Tab 0.5 Tab PO DAILY 06/30/17 Reported Hctz (Hydrochlorothiazide) 25 Mg Tab 25 Mg PO DAILY 06/30/17 Reported Lipitor (Atorvastatin) 20 Mg Tab 20 Mg PO DAILY 06/30/17 Reported Keflex (Cephalexin Monohydrate) 500 Mg Cap 500 Mg PO QID 06/30/17 Reported Fish Oil ([place]-3 Fatty Acids) 1,000 Mg Cap 1,000 Mg PO BID 06/11/17 Reported Vitamin D3 (Cholecalciferol) 1,000 Unit Tab 5,000 Inter.unit PO DAILY 90 06/11/17 Reported Humalog Kwikpen (Insulin Lispro (Human)) 100 Unit/Ml Inj Units SQ DIRECTED 06/11/17 Reported 16 units breakfast 20 units lunch 26 units dinner PLUS THE SLIDING SCALE Tresiba Flextouch (Insulin Degludec) 100 Unit/Ml Inj 100 Units PO HS 05/21/17 Reported Norvasc (Amlodipine Besylate) 10 Mg Tab 10 Mg PO DAILY 05/21/17 Reported Sodium Bicarbonate 650 Mg Tab 1,300 Mg PO TID 05/21/17 Reported Ventolin Hfa (Albuterol) 200 Puffs/11717 Mcg Aers 2 Puffs INH Q4H PRN 04/17/17 Reported Tricor (Fenofibrate) 160 Mg Tab 160 Mg PO DAILY 08/10/15 Reported Lyrica (Pregabalin) 50 Mg Cap 50 Mg PO TID 12/08/14 Reported Propranolol Hcl Er (Propranolol Hcl) 120 Mg Cap 120 Mg PO BID 02/24/14 Reported Cymbalta (Duloxetine Hcl) 60 Mg Cap 60 Mg PO QPM 02/24/14 Reported Nexium (Esomeprazole Magnesium) 40 Mg Capcr 40 Mg PO QAM 02/24/14 Reported Review of Systems Constitutional: + weakness, + fatigue, No fever, No chills Eyes: No worsening of vision ENT: No hearing loss Respiratory: No cough, No shortness of breath Cardiac: No chest pain, No edema, No palpitations Abdomen: + see HPI Musculoskeletal: + joint pain (chronic back pain; R rib pain), No swelling Female : No dysuria, No urinary frequency, No hematuria Neuro: + see HPI, + balance problems, No memory loss Psych: No depression symptoms Heme: No abnormal bleeding/bruising Endo: + fatigue Skin: + problem reported (breast pain w/o skin lesion and improved; no axillary lesions), No rash Physical Exam Date Time Temp Pulse Resp B/P (MAP) Pulse Ox O2 Delivery O2 Flow Rate FiO2 07/01/17 14:00 77 14 108/65 (79) 97 Room Air 07/01/17 13:00 79 14 109/63 (78) 96 Room Air 07/01/17 12:09 Room Air 07/01/17 12:00 36.4 78 15 96 Room Air 07/01/17 10:00 72 14 133/85 (101) 100 Room Air 07/01/17 09:00 66 17 139/83 (101) 99 Room Air 07/01/17 08:00 Room Air 07/01/17 08:00 36.5 68 16 145/69 (94) 99 Room Air 07/01/17 06:01 72 13 167/92 (117) 100 07/01/17 06:00 72 13 100 07/01/17 05:01 70 14 137/82 (100) 100 07/01/17 05:00 71 15 100 07/01/17 04:01 36.6 65 13 122/84 (97) 100 07/01/17 04:00 Room Air 07/01/17 04:00 65 14 100 07/01/17 03:01 71 15 123/83 (96) 100 07/01/17 03:00 72 15 100 07/01/17 02:00 71 14 100 07/01/17 01:01 74 11 119/78 (92) 100 07/01/17 01:00 72 18 100 07/01/17 00:00 36.5 72 17 100 06/30/17 23:59 Room Air 06/30/17 23:01 67 14 111/66 (81) 98 06/30/17 23:00 68 14 97 06/30/17 22:01 67 15 138/90 (106) 100 06/30/17 22:00 61 22 97 06/30/17 21:01 63 14 113/74 (87) 98 06/30/17 21:00 63 17 98 06/30/17 20:02 65 17 106/69 (81) 97 06/30/17 20:00 36.4 71 17 99 06/30/17 19:34 70 19 137/98 (111) 96 06/30/17 19:00 36.4 67 17 111/66 96 Room Air 06/30/17 17:31 72 18 125/71 96 Room Air 06/30/17 17:01 139/82 06/30/17 16:33 75 06/30/17 16:31 173/97 06/30/17 16:01 74 18 143/94 97 Room Air 24-Hour Column 07/02/17 07:59 Intake Total 2090 ml Output Total 1175 ml Balance 915 ml General Appearance: WD/WN, no apparent distress, + obese Eyes: normal inspection ENT: normal ENT inspection Neck: supple Respiratory/Chest: normal breath sounds, + decreased breath sounds Cardiovascular: regular rate, rhythm (w/ occasional skipped beat), no edema Abdomen: normal bowel sounds, non tender, soft (no damico) Extremities: no pedal edema, normal capillary refill Neurologic/Psych: alert, normal mood/affect, oriented x 3 Skin: normal color (plethoric fascies), no jaundice, warm/dry, no rash Diagnostics Last 24 Hours Test 06/30/17 17:18 06/30/17 19:01 06/30/17 19:45 06/30/17 21:00 Arterial Blood pH 7.10 Arterial Blood Partial Pressure CO2 31 mmHg Arterial Blood Partial Pressure O2 97 mm/Hg Arterial Blood HCO3 10 mmol/L Arterial Blood Oxygen Saturation 95.7 % Arterial Blood Base Excess -18.8 mEq/L Arterial Blood Gas Delivery ROOM AIR Mickey Test POS Bedside Glucose 80 mg/dl 122 mg/dl Salicylates Level 2.4 mg/dl Acetaminophen Level 26 ug/ml Test 06/30/17 21:16 06/30/17 22:09 07/01/17 01:45 07/01/17 03:52 Urine Color YELLOW Urine Appearance CLEAR Urine pH 5.5 Urine Specific [place] 1.025 Urine Protein 2+ Urine Glucose (UA) NEG Urine Ketones NEG Urine Occult Blood NEG Urine Nitrite NEG Urine Bilirubin NEG Urine Urobilinogen NEG Urine Leukocyte Esterase NEG Urine WBC (Auto) 1-5 /hpf Urine RBC (Auto) 0-4 /hpf Urine Hyaline Casts (Auto) 1-5 /lpf Urine Epithelial Cells (Auto) >30 /lpf Urine Bacteria (Auto) NEG Urine Osmolality 435 mOms/kg Urine Random Sodium 63 mEq/L Urine Random Potassium 56.6 mEq/L Urine Random Chloride 29 mEq/L Urine Opiates Screen POS Urine Methadone, Qualitative NEG Urine Barbiturates NEG Urine Phencyclidine (PCP) Level NEG Ur Amphetamine/Methamphetamine NEG MDMA (Ecstasy) Screen NEG Urine Benzodiazepines Screen POS Urine Cocaine Metabolite NEG Urine Marijuana (THC) NEG Sodium Level 132 mmol/L Potassium Level 4.1 mmol/L Chloride Level 106 mmol/L Carbon Dioxide Level 11 mmol/L Anion Gap 15.0 mmol/L Blood Urea Nitrogen 37 mg/dl Creatinine 1.75 mg/dl Est Creatinine Clear Calc Drug Dose 41.1 ml/min Estimated GFR () 40.3 Estimated GFR (Non- 34.8 BUN/Creatinine Ratio 21.3 Random Glucose 139 mg/dl Calcium Level 8.9 mg/dl Bedside Glucose 169 mg/dl 166 mg/dl Test 07/01/17 05:13 07/01/17 05:32 3/24/18 06:10 07/01/17 11:33 Blood Gas Sample Site L Radial Bedside Blood Gas pH (LAB) 7.27 Bedside Blood Gas pCO2 (LAB) 31 mmHg Bedside Blood Gas pO2 (LAB) 83 mmHg Bedside Blood Gas HCO3 (LAB) 14 meq/L Bedside Blood Gas Total CO2 15 mEq/l Bedside Blood Gas Base Excess (LAB) -13.0 meq/L Bedside Blood Gas O2 Saturation 95.0 % Mickey Test Pass Oxygen Delivery Device Room Air White Blood Count 7.67 K/uL Red Blood Count 3.80 M/uL Hemoglobin 9.9 g/dL Hematocrit 31.0 % Mean Corpuscular Volume 81.6 fL Mean Corpuscular Hemoglobin 26.1 pg Mean Corpuscular Hemoglobin Concent 31.9 g/dl RDW Standard Deviation 52.3 fL RDW Coefficient of Variation 17.5 % Platelet Count 422 K/uL Mean Platelet Volume 9.1 fL Sodium Level 132 mmol/L Potassium Level 3.6 mmol/L Chloride Level 104 mmol/L Carbon Dioxide Level 16 mmol/L Anion Gap 12.0 mmol/L Blood Urea Nitrogen 32 mg/dl Creatinine 1.37 mg/dl Est Creatinine Clear Calc Drug Dose 52.9 ml/min Estimated GFR () 54.2 Estimated GFR (Non- 46.8 BUN/Creatinine Ratio 23.3 Random Glucose 178 mg/dl Calcium Level 8.4 mg/dl Phosphorus Level 3.2 mg/dl Magnesium Level 2.3 mg/dl Bedside Glucose 164 mg/dl 225 mg/dl Test 07/01/17 14:17 Diagnostic Radiology: cxr > clear lungs, rib frxs dopplers > negative for DVT BLE EKG: SR w/ occasional pvc Assessment & Plan 42 y/o F w/ DM on insulin, ckd, hx colectomy in past for C diff, chronic suppurative hidradenitis, HTN, CKD, chronic metabolic acidosis w/ acute worsening 4x this year so far each requiring admission and 2 requiring acute dialysis. Acute on chronic metabolic acidosis with dyskalemia no clear cause found; suspect multifactorial related to colectomy/diarrhea/ GI losses as well as dm she was borderline hyperchloremic on presentation; improved/ safer today on high dose po and IV bicarb >> in fact labs this PM w/ K 2.8 and bicarb 27 >> changed ivf to 1/2 NS w/ 75 mEq/L Na bicarb as well as 20 mEq /L K >> pt will also be receiving 40 mEq IV K -recheck bmp 2200 ordered in addition to am labs -cont strict I/O; cont to hold diuretic and use prn only -cont current po sodium bicarb appreciate consult; will follow with you. Care coordinated w/ Osvaldo Sparrow, Joseph on 07/01/17..
--- NOTE | 2017-07-02 09:41 | Nephrology Progress Note ---
Nephrology Progress Note Date of Service: Jul 02, 2017. Subjective ongoing N >> poor po yesterday, braulio late in day; no pain, no sob; no diarrhea; no N Objective Date Time Temp Pulse Resp B/P (MAP) Pulse Ox O2 Delivery O2 Flow Rate FiO2 07/02/17 06:01 65 17 113/58 (76) 100 07/02/17 05:01 65 17 103/61 (75) 97 07/02/17 04:14 Room Air 07/02/17 04:01 65 12 107/58 (74) 98 07/02/17 03:02 67 15 125/64 (84) 96 07/02/17 02:01 74 19 132/81 (98) 97 07/02/17 01:02 52 14 137/81 (99) 98 07/02/17 00:28 Room Air 07/02/17 00:01 36.9 74 15 103/59 (74) 97 07/01/17 23:01 71 16 96/53 (67) 97 07/01/17 23:01 71 16 96/53 (67) 97 07/01/17 22:01 75 16 146/86 (106) 07/01/17 22:01 75 16 146/86 (106) 07/01/17 21:01 73 14 132/80 (97) 98 07/01/17 21:01 73 14 132/80 (97) 98 07/01/17 20:36 Room Air 07/01/17 20:01 78 12 118/78 (91) 98 07/01/17 20:01 78 12 118/78 (91) 98 07/01/17 19:29 36.9 07/01/17 18:00 83 14 128/84 (99) 99 Room Air 07/01/17 17:00 36.5 82 19 153/79 (103) 99 Room Air 07/01/17 16:00 75 18 128/78 (95) 96 Room Air 07/01/17 16:00 Room Air 07/01/17 15:00 77 17 106/70 (82) 98 Room Air 07/01/17 14:00 77 14 108/65 (79) 97 Room Air 07/01/17 13:00 79 14 109/63 (78) 96 Room Air 07/01/17 12:09 Room Air 07/01/17 12:00 36.4 78 15 96 Room Air 07/01/17 10:00 72 14 133/85 (101) 100 Room Air Physical Exam: General Appearance: WD/WN, no apparent distress, + obese Eyes: normal inspection ENT: normal ENT inspection Neck: supple Respiratory/Chest: normal breath sounds, + decreased breath sounds Cardiovascular: regular rate, rhythm (w/ occasional skipped beat), no edema Abdomen: normal bowel sounds, non tender, soft (no damico) Extremities: no pedal edema, normal capillary refill Neurologic/Psych: alert, normal mood/affect, oriented x 3 Skin: normal color (plethoric fascies), no jaundice, warm/dry, no rash Current Inpatient Medications Medications (Trade) Dose Ordered Sig/Yudy Route Start Time Stop Time Status Last Admin Dose Admin Acetaminophen (Tylenol Tab) 650 mg Q4H PRN PO 06/30/17 17:30 07/30/17 17:29 07/01/17 20:24 650 MG Ondansetron HCl (Zofran Inj) 4 mg Q6H PRN IV 06/30/17 17:30 07/30/17 17:29 07/01/17 16:56 4 MG Nitroglycerin (Nitrostat Tab) 0.4 mg UD PRN SL 06/30/17 17:30 07/30/17 17:29 Albuterol (Ventolin Hfa Inhaler) 2 puffs Q4H PRN INH 06/30/17 17:45 07/30/17 17:44 Amlodipine Besylate (Norvasc Tab) 10 mg DAILY PO 07/01/17 09:00 07/31/17 08:59 07/02/17 07:46 10 MG Atorvastatin Calcium (Lipitor Tab) 20 mg DAILY PO 07/01/17 09:00 07/31/17 08:59 07/02/17 07:46 20 MG Cholecalciferol (Vitamin D Tab) 5,000 inter.unit DAILY PO 07/01/17 09:00 07/31/17 08:59 07/02/17 07:45 5,000 INTER.UNIT Duloxetine HCl (Cymbalta Cap) 60 mg QPM PO 06/30/17 21:00 07/30/17 20:59 07/01/17 20:25 60 MG Fish Oil ([place]-3 (Purified Fish Oil) Cap) 1 gm BID PO 06/30/17 21:00 07/30/17 20:59 07/02/17 07:45 1 GM Pregabalin (Lyrica Cap) 50 mg TID PO 06/30/17 21:00 07/30/17 20:59 07/02/17 08:03 50 MG Pantoprazole Sodium (Protonix Tab) 40 mg QAM PO 07/01/17 09:00 07/31/17 08:59 07/02/17 07:46 40 MG Propranolol HCl (Inderal La Cap) 120 mg BID PO 06/30/17 21:00 07/30/17 20:59 07/02/17 07:46 120 MG Insulin Aspart (novoLOG ASPART) SLIDING SCALE If C... ACHS SC 06/30/17 21:00 07/30/17 20:59 07/02/17 08:00 7 UNITS Glucose (Glucose 40% Gel) 15-30 GRAMS 15 GRAMS... UD PRN PO 06/30/17 17:45 07/30/17 17:44 Glucose (Glucose Chew Tab) 4-8 Tablets 4 Tabl... UD PRN PO 06/30/17 17:45 07/30/17 17:44 Dextrose (Dextrose 50% 50ML Syringe) 25-50ML OF 50% DW IV FOR... UD PRN IV 06/30/17 17:45 07/30/17 17:44 Glucagon (Glucagon Inj) 1 mg UD PRN SQ 06/30/17 17:45 07/30/17 17:44 Miscellaneous Information (Consult Glycemic Management Pharmacy) 1 ea UD PRN N/A 06/30/17 17:56 07/30/17 17:55 Tramadol HCl (Ultram Tab) 50 mg Q6 PRN PO 06/30/17 18:00 07/30/17 17:59 07/01/17 21:38 50 MG Heparin Sodium (Porcine) (Heparin Sq 5000 Unit/0.5ml) 5,000 unit Q8H SQ 06/30/17 22:00 07/30/17 21:59 07/02/17 06:38 5,000 UNIT Miscellaneous Information ([facility] Protocol For Hyperglycemia) 1 ea PRN PRN N/A 06/30/17 18:15 07/02/17 18:14 Miscellaneous Information (Order Awaiting Action) 1 ea QS N/A 07/01/17 00:00 07/31/17 00:00 Insulin Glargine (Lantus Solostar Pen) SEE PROTOCOL TEXT Q12 SC 07/01/17 21:00 07/31/17 20:59 07/02/17 08:01 15 UNITS Potassium/ Phosphorus/Sodium (Phospha 250 Neutral 155-852-130 Mg) 2 tab QID PO 07/02/17 09:00 08/01/17 08:59 07/02/17 09:13 2 TAB Sodium Bicarbonate (Sodium Bicarbonate Tab) 650 mg TID PO 07/02/17 09:00 07/30/17 20:59 Potassium Chloride/Sodium Chloride 1,000 ml @ 75 mls/hr [id number] IV 07/02/17 08:44 08/01/17 08:43 07/02/17 09:13 75 MLS/HR Last 24 Hours Test 07/01/17 11:33 07/01/17 14:17 07/01/17 16:31 07/01/17 17:30 Bedside Glucose 225 mg/dl 183 mg/dl Sodium Level 134 mmol/L Potassium Level 2.8 mmol/L Chloride Level 102 mmol/L Carbon Dioxide Level 27 mmol/L Anion Gap 5.0 mmol/L Blood Urea Nitrogen 25 mg/dl Creatinine 1.21 mg/dl Est Creatinine Clear Calc Drug Dose 59.9 ml/min Estimated GFR () 63.0 Estimated GFR (Non- 54.4 BUN/Creatinine Ratio 20.9 Random Glucose 172 mg/dl Calcium Level 8.1 mg/dl Phosphorus Level 2.1 mg/dl Venous Blood pH 7.44 Venous Blood Partial Pressure CO2 45 mmHg Venous Blood Partial Pressure O2 32 mmHg Venous Blood HCO3 30 mmol/L Venous Blood Oxygen Saturation 61.1 % Venous Blood Base Excess 5.7 mEq/L Test 07/01/17 20:03 07/01/17 21:33 07/02/17 02:01 07/02/17 05:40 Bedside Glucose 121 mg/dl 89 mg/dl Sodium Level 136 mmol/L 138 mmol/L Potassium Level 3.3 mmol/L 3.4 mmol/L Chloride Level 100 mmol/L 102 mmol/L Carbon Dioxide Level 32 mmol/L 30 mmol/L Anion Gap 4.0 mmol/L 6.0 mmol/L Blood Urea Nitrogen 23 mg/dl 18 mg/dl Creatinine 0.98 mg/dl 0.70 mg/dl Est Creatinine Clear Calc Drug Dose 74.0 ml/min 104.3 ml/min Estimated GFR () 81.3 122.1 Estimated GFR (Non- 70.2 105.4 BUN/Creatinine Ratio 23.8 25.5 Random Glucose 109 mg/dl 90 mg/dl Calcium Level 8.2 mg/dl 8.5 mg/dl White Blood Count 5.38 K/uL Red Blood Count 3.33 M/uL Hemoglobin 8.7 g/dL Hematocrit 26.9 % Mean Corpuscular Volume 80.8 fL Mean Corpuscular Hemoglobin 26.1 pg Mean Corpuscular Hemoglobin Concent 32.3 g/dl Platelet Count 337 K/uL Mean Platelet Volume 8.6 fL Neutrophils (%) (Auto) 44.6 % Lymphocytes (%) (Auto) 44.4 % Monocytes (%) (Auto) 9.5 % Eosinophils (%) (Auto) 1.1 % Basophils (%) (Auto) 0.2 % Neutrophils # (Auto) 2.40 K/uL Lymphocytes # (Auto) 2.39 K/uL Monocytes # (Auto) 0.51 K/uL Eosinophils # (Auto) 0.06 K/uL Basophils # (Auto) 0.01 K/uL RDW Standard Deviation 51.9 fL RDW Coefficient of Variation 17.4 % Immature Granulocyte % (Auto) 0.2 % Immature Granulocyte # (Auto) 0.01 K/uL Red Blood Cell Morphology Unremarkable Phosphorus Level 1.2 mg/dl Magnesium Level 2.1 mg/dl Assessment & Plan 42 y/o F w/ DM on insulin, ckd, hx colectomy in past for C diff, chronic suppurative hidradenitis, HTN, CKD, chronic metabolic acidosis w/ acute worsening 4x this year so far each requiring admission and 2 requiring acute dialysis. Acute on chronic metabolic acidosis with dyskalemia, low phos no clear cause found; suspect multifactorial related to colectomy/diarrhea/ GI losses as well as dm --worsened by poor po intake but responding to IV meds she was borderline hyperchloremic on presentation; improved/ safer today on high dose po and IV bicarb >> in fact labs this PM w/ K 2.8 and bicarb 27 >> changed ivf to 1/2 NS w/ 75 mEq/L Na bicarb as well as 20 mEq /L K >> pt will also be receiving 40 mEq IV K -started neutraphos, cut po bicarb to 650 mg tid -chagned IVF to take out bicarb to 1/2 NS w/ 20 mEq K at 75 -recheck bmp, phos later this afternoon< order in -cont strict I/O; cont to hold diuretic and use prn only -recommend 24 hrs stability on po meds before d/c -reasonable to move her out of icu appreciate consult; will follow with you. Care coordinated w/ Dr. Ruiz
--- NOTE | 2017-07-02 12:46 | Critical Care Progress Note ---
Critical Care Progress Note Date of Service Jul 02, 2017. Attending Dr. Ruiz Subjective No events overnight, the patient improved dramatically, her bicarb also was corrected to surgery overnight. Objective Physical exam on 07/01/2017 revealed stable patient, stable vital signs, speaks in full sentences, no respiratory or cardiac issues, no pain except for minimal pain in the right pleuritic area, S1-S2 regular rate and rhythm, distant breath sounds bilaterally, abdomen is benign except for mild tenderness in the right upper quadrant. Trace edema in the periphery. Neurologically she is intact. Her laboratory also reviewed which showed improvement in her bicarb from 6-16 and BUN/creatinine remain stable. Hematocrit slightly dropped down. The rest of her labs are unremarkable. Physical exam on 07/02/2017 revealed stable vital signs, S1-S2 regular rate and rhythm, right subclavian CV line appeared intact, clear lung cheney, abdomen is slight tenderness mainly in the right upper quadrant from recent rib fracture, no edema in the periphery. Her laboratory were reviewed as well which showed improvement in BUN/creatinine, improvement also on the bicarb and now up to 30 on the chemistry lab. Assessment & Plan 1. Severe combined metabolic acidosis with anion gap and non-anion gap. Improving, no anion gap today. 2. Diabetes mellitus, well controlled. 3. The etiology of her buffer loss is unclear, appreciate Dr. Fiore evaluating in that regard. 4 UA did not support the diagnosis of RTA. However, the patient did not have ongoing diarrhea since admission. I am concerned that the patient might not be absorbing her bicarb where she was on 3900 mg daily. 5. History of hypertension. 6. Recent cholecystectomy 2 weeks ago. 7. Right pleuritic chest pain secondary to rib fracture from recent fall. Plan: 1. continue with p.o. bicarb and stop IV bicarb as per Dr. Fiore, I truly appreciate her input and solving this complex case. 2. Glucose control. 3. Oral intake. 4. Fluid management per Dr. Fiore. 5. The patient is dispositional to regular floor. Appreciate the hospitalist acceptance of this case. 6. Pain control for pleuritic chest pain. 7. Follow the chemistry lab closely. 8. We will follow as needed after discharge to the floor. Case discussed with the staff on rounds and details. Critical care time spent with the patient was 35 minutes . Data Medications: Current Inpatient Medications Medications (Trade) Dose Ordered Sig/Yudy Route Start Time Stop Time Status Last Admin Dose Admin Acetaminophen (Tylenol Tab) 650 mg Q4H PRN PO 06/30/17 17:30 07/30/17 17:29 07/01/17 20:24 650 MG Ondansetron HCl (Zofran Inj) 4 mg Q6H PRN IV 06/30/17 17:30 07/30/17 17:29 07/01/17 16:56 4 MG Nitroglycerin (Nitrostat Tab) 0.4 mg UD PRN SL 06/30/17 17:30 07/30/17 17:29 Albuterol (Ventolin Hfa Inhaler) 2 puffs Q4H PRN INH 06/30/17 17:45 07/30/17 17:44 Amlodipine Besylate (Norvasc Tab) 10 mg DAILY PO 07/01/17 09:00 07/31/17 08:59 07/02/17 07:46 10 MG Atorvastatin Calcium (Lipitor Tab) 20 mg DAILY PO 07/01/17 09:00 07/31/17 08:59 07/02/17 07:46 20 MG Cholecalciferol (Vitamin D Tab) 5,000 inter.unit DAILY PO 07/01/17 09:00 07/31/17 08:59 07/02/17 07:45 5,000 INTER.UNIT Duloxetine HCl (Cymbalta Cap) 60 mg QPM PO 06/30/17 21:00 07/30/17 20:59 07/01/17 20:25 60 MG Fish Oil ([place]-3 (Purified Fish Oil) Cap) 1 gm BID PO 06/30/17 21:00 07/30/17 20:59 07/02/17 07:45 1 GM Pregabalin (Lyrica Cap) 50 mg TID PO 06/30/17 21:00 07/30/17 20:59 07/02/17 08:03 50 MG Pantoprazole Sodium (Protonix Tab) 40 mg QAM PO 07/01/17 09:00 07/31/17 08:59 07/02/17 07:46 40 MG Propranolol HCl (Inderal La Cap) 120 mg BID PO 06/30/17 21:00 07/30/17 20:59 07/02/17 07:46 120 MG Insulin Aspart (novoLOG ASPART) SLIDING SCALE If C... ACHS SC 06/30/17 21:00 07/30/17 20:59 07/02/17 11:47 15 UNITS Glucose (Glucose 40% Gel) 15-30 GRAMS 15 GRAMS... UD PRN PO 06/30/17 17:45 07/30/17 17:44 Glucose (Glucose Chew Tab) 4-8 Tablets 4 Tabl... UD PRN PO 06/30/17 17:45 07/30/17 17:44 Dextrose (Dextrose 50% 50ML Syringe) 25-50ML OF 50% DW IV FOR... UD PRN IV 06/30/17 17:45 07/30/17 17:44 Glucagon (Glucagon Inj) 1 mg UD PRN SQ 06/30/17 17:45 07/30/17 17:44 Miscellaneous Information (Consult Glycemic Management Pharmacy) 1 ea UD PRN N/A 06/30/17 17:56 07/30/17 17:55 Tramadol HCl (Ultram Tab) 50 mg Q6 PRN PO 06/30/17 18:00 07/30/17 17:59 07/01/17 21:38 50 MG Heparin Sodium (Porcine) (Heparin Sq 5000 Unit/0.5ml) 5,000 unit Q8H SQ 06/30/17 22:00 07/30/17 21:59 07/02/17 06:38 5,000 UNIT Miscellaneous Information (Icu Protocol For Hyperglycemia) 1 ea PRN PRN N/A 06/30/17 18:15 07/02/17 18:14 Miscellaneous Information (Order Awaiting Action) 1 ea QS N/A 07/01/17 00:00 07/31/17 00:00 Insulin Glargine (Lantus Solostar Pen) SEE PROTOCOL TEXT Q12 SC 07/01/17 21:00 07/31/17 20:59 07/02/17 08:01 15 UNITS Potassium/ Phosphorus/Sodium (Phospha 250 Neutral 155-852-130 Mg) 2 tab QID PO 07/02/17 09:00 08/01/17 08:59 07/02/17 09:13 2 TAB Sodium Bicarbonate (Sodium Bicarbonate Tab) 650 mg TID PO 07/02/17 09:00 07/30/17 20:59 Potassium Chloride/Sodium Chloride 1,000 ml @ 75 mls/hr [id number] IV 07/02/17 08:44 08/01/17 08:43 07/02/17 09:13 75 MLS/HR Vital Signs: Date Time Temp Pulse Resp B/P (MAP) Pulse Ox O2 Delivery O2 Flow Rate FiO2 07/02/17 12:09 Room Air 07/02/17 12:00 36.8 67 18 131/72 (91) 97 Room Air 07/02/17 10:00 72 12 143/83 (103) 98 Room Air 07/02/17 09:00 70 13 139/95 (110) 97 Room Air 07/02/17 08:00 36.7 76 21 139/89 (106) 07/02/17 08:00 Room Air 07/02/17 06:01 65 17 113/58 (76) 100 07/02/17 05:01 65 17 103/61 (75) 97 07/02/17 04:14 Room Air 07/02/17 04:01 65 12 107/58 (74) 98 07/02/17 03:02 67 15 125/64 (84) 96 07/02/17 02:01 74 19 132/81 (98) 97 07/02/17 01:02 52 14 137/81 (99) 98 07/02/17 00:28 Room Air 07/02/17 00:01 36.9 74 15 103/59 (74) 97 07/01/17 23:01 71 16 96/53 (67) 97 07/01/17 23:01 71 16 96/53 (67) 97 07/01/17 22:01 75 16 146/86 (106) 07/01/17 22:01 75 16 146/86 (106) 07/01/17 21:01 73 14 132/80 (97) 98 07/01/17 21:01 73 14 132/80 (97) 98 07/01/17 20:36 Room Air 07/01/17 20:01 78 12 118/78 (91) 98 07/01/17 20:01 78 12 118/78 (91) 98 07/01/17 19:29 36.9 07/01/17 18:00 83 14 128/84 (99) 99 Room Air 07/01/17 17:00 36.5 82 19 153/79 (103) 99 Room Air 07/01/17 16:00 75 18 128/78 (95) 96 Room Air 07/01/17 16:00 Room Air 07/01/17 15:00 77 17 106/70 (82) 98 Room Air 07/01/17 14:00 77 14 108/65 (79) 97 Room Air 07/01/17 13:00 79 14 109/63 (78) 96 Room Air Laboratory Results: Last 24 Hours Test 07/01/17 14:17 07/01/17 16:31 07/01/17 17:30 07/01/17 20:03 Sodium Level 134 mmol/L Potassium Level 2.8 mmol/L Chloride Level 102 mmol/L Carbon Dioxide Level 27 mmol/L Anion Gap 5.0 mmol/L Blood Urea Nitrogen 25 mg/dl Creatinine 1.21 mg/dl Est Creatinine Clear Calc Drug Dose 59.9 ml/min Estimated GFR () 63.0 Estimated GFR (Non- 54.4 BUN/Creatinine Ratio 20.9 Random Glucose 172 mg/dl Calcium Level 8.1 mg/dl Phosphorus Level 2.1 mg/dl Bedside Glucose 183 mg/dl 121 mg/dl Venous Blood pH 7.44 Venous Blood Partial Pressure CO2 45 mmHg Venous Blood Partial Pressure O2 32 mmHg Venous Blood HCO3 30 mmol/L Venous Blood Oxygen Saturation 61.1 % Venous Blood Base Excess 5.7 mEq/L Test 07/01/17 21:33 07/02/17 02:01 07/02/17 05:40 07/02/17 11:14 Sodium Level 136 mmol/L 138 mmol/L Potassium Level 3.3 mmol/L 3.4 mmol/L Chloride Level 100 mmol/L 102 mmol/L Carbon Dioxide Level 32 mmol/L 30 mmol/L Anion Gap 4.0 mmol/L 6.0 mmol/L Blood Urea Nitrogen 23 mg/dl 18 mg/dl Creatinine 0.98 mg/dl 0.70 mg/dl Est Creatinine Clear Calc Drug Dose 74.0 ml/min 104.3 ml/min Estimated GFR () 81.3 122.1 Estimated GFR (Non- 70.2 105.4 BUN/Creatinine Ratio 23.8 25.5 Random Glucose 109 mg/dl 90 mg/dl Calcium Level 8.2 mg/dl 8.5 mg/dl Bedside Glucose 89 mg/dl 113 mg/dl White Blood Count 5.38 K/uL Red Blood Count 3.33 M/uL Hemoglobin 8.7 g/dL Hematocrit 26.9 % Mean Corpuscular Volume 80.8 fL Mean Corpuscular Hemoglobin 26.1 pg Mean Corpuscular Hemoglobin Concent 32.3 g/dl Platelet Count 337 K/uL Mean Platelet Volume 8.6 fL Neutrophils (%) (Auto) 44.6 % Lymphocytes (%) (Auto) 44.4 % Monocytes (%) (Auto) 9.5 % Eosinophils (%) (Auto) 1.1 % Basophils (%) (Auto) 0.2 % Neutrophils # (Auto) 2.40 K/uL Lymphocytes # (Auto) 2.39 K/uL Monocytes # (Auto) 0.51 K/uL Eosinophils # (Auto) 0.06 K/uL Basophils # (Auto) 0.01 K/uL RDW Standard Deviation 51.9 fL RDW Coefficient of Variation 17.4 % Immature Granulocyte % (Auto) 0.2 % Immature Granulocyte # (Auto) 0.01 K/uL Red Blood Cell Morphology Unremarkable Phosphorus Level 1.2 mg/dl Magnesium Level 2.1 mg/dl
[2017-07-02 17:36] LABS: CALCIUM 9.3 mg/dl (8.5-10.1); CREATININE 0.89 mg/dl (0.60-1.20); POTASSIUM 3.6 mmol/L (3.5-5.1)
[2017-07-02 17:41] LABS: PHOSPHORUS 2.4 mg/dl (2.5-4.9)
--- NOTE | 2017-07-02 18:49 | Progress Note ---
Medicine Progress Note Date & Time of Visit: Jul 02, 2017 at 18:49. Subjective Patient doing better, denies any additional episodes of N/V/D. No overnight events noted. Has been ambulating to the bathroom without difficulty. No other complaints at this time. Objective Last 8 Hrs Date Time Temp Pulse Resp B/P (MAP) Pulse Ox O2 Delivery O2 Flow Rate FiO2 07/02/17 16:01 Room Air 07/02/17 16:01 67 15 129/83 (98) 100 Room Air 07/02/17 15:00 59 16 146/83 (104) 99 Room Air 07/02/17 14:00 67 16 137/75 (95) 98 Room Air 07/02/17 13:00 68 17 120/77 (91) 98 Room Air 07/02/17 12:09 Room Air 07/02/17 12:00 36.8 67 18 131/72 (91) 97 Room Air Physical Exam: GENERAL: Patient is in no acute distress. HEENT: No acute trauma, normocephalic, mucous membranes moist, no nasal congestion, no scleral icterus. NECK: No stridor, trachea is midline. LUNGS: Clear to auscultation bilaterally, no wheeze, no rhonchi, breath sounds equal. HEART: Without murmurs gallops or rubs, regular rate and rhythm. Right side chest and abdomen tender ABDOMEN: Soft, nontender, bowel sounds positive EXTREMITIES: No cyanosis or edema, full range of motion of all the joints without pain or difficulty, no signs for acute trauma. NEUROLOGIC: Oriented x 3, no acute motor or sensory deficits, no focal weakness. SKIN: No rash, no jaundice, no diaphoresis. Laboratory Results: Last 24 Hours Test 07/01/17 20:03 07/01/17 21:33 07/02/17 02:01 07/02/17 05:40 Bedside Glucose 121 mg/dl 89 mg/dl Sodium Level 136 mmol/L 138 mmol/L Potassium Level 3.3 mmol/L 3.4 mmol/L Chloride Level 100 mmol/L 102 mmol/L Carbon Dioxide Level 32 mmol/L 30 mmol/L Anion Gap 4.0 mmol/L 6.0 mmol/L Blood Urea Nitrogen 23 mg/dl 18 mg/dl Creatinine 0.98 mg/dl 0.70 mg/dl Est Creatinine Clear Calc Drug Dose 74.0 ml/min 104.3 ml/min Estimated GFR () 81.3 122.1 Estimated GFR (Non- 70.2 105.4 BUN/Creatinine Ratio 23.8 25.5 Random Glucose 109 mg/dl 90 mg/dl Calcium Level 8.2 mg/dl 8.5 mg/dl White Blood Count 5.38 K/uL Red Blood Count 3.33 M/uL Hemoglobin 8.7 g/dL Hematocrit 26.9 % Mean Corpuscular Volume 80.8 fL Mean Corpuscular Hemoglobin 26.1 pg Mean Corpuscular Hemoglobin Concent 32.3 g/dl Platelet Count 337 K/uL Mean Platelet Volume 8.6 fL Neutrophils (%) (Auto) 44.6 % Lymphocytes (%) (Auto) 44.4 % Monocytes (%) (Auto) 9.5 % Eosinophils (%) (Auto) 1.1 % Basophils (%) (Auto) 0.2 % Neutrophils # (Auto) 2.40 K/uL Lymphocytes # (Auto) 2.39 K/uL Monocytes # (Auto) 0.51 K/uL Eosinophils # (Auto) 0.06 K/uL Basophils # (Auto) 0.01 K/uL RDW Standard Deviation 51.9 fL RDW Coefficient of Variation 17.4 % Immature Granulocyte % (Auto) 0.2 % Immature Granulocyte # (Auto) 0.01 K/uL Red Blood Cell Morphology Unremarkable Phosphorus Level 1.2 mg/dl Magnesium Level 2.1 mg/dl Test 07/02/17 11:14 07/02/17 16:23 07/02/17 16:55 Bedside Glucose 113 mg/dl 118 mg/dl Sodium Level 137 mmol/L Potassium Level 3.6 mmol/L Chloride Level 101 mmol/L Carbon Dioxide Level 32 mmol/L Anion Gap 5.0 mmol/L Blood Urea Nitrogen 18 mg/dl Creatinine 0.89 mg/dl Est Creatinine Clear Calc Drug Dose 82.0 ml/min Estimated GFR () 91.4 Estimated GFR (Non- 78.8 BUN/Creatinine Ratio 19.9 Random Glucose 105 mg/dl Calcium Level 9.3 mg/dl Phosphorus Level 2.4 mg/dl Assessment & Plan METABOLIC ACIDOSIS: -on admission pH: 7.1/29/108/10 bicarb 8. +anion gap but no DKA; now anion gap has closed, ph improved, bi carb improved -with chronic hypobicarbonatemia; was on chronic PO bicarb replacements -vitals stable and no mental status changes noted -remain in ICU due to history of rapid decompensation in the past -Operator Maintainer consulted, appreciate recs -Nephrology consulted appreciate management; on oral bicarb, bicarb IV and LR initially which have been changed to PO -Salicylate, acetaminophen levels neg -phosphorus low -TSH low, will check free T4 OK ON CKD STAGE III: -Cr: 1.6-->1.17 -was 1.3 on 06/26/17. (range 1.3-2.2) -IV fluids continued -monitor renal functions -avoid nephrotoxic agents when possible RIGHT RIB FRACTURE: secondary to recent fall -fell a couple days ago -CXR: Right rib fractures in 5,6,7 -tramadol prn pain -incentive spirometer encouraged ELEVATED D-DIMER: -D-dimer: 790 -U/S BLE ordered to r/o DVT. Holding on CTA chest secondary to pt's CKD LEUKOCYTOSIS: -Afebrile. WBC: 14. Lactic acid: 0.36. procalcitonin slightly elevated -blood and urine cultures pending HYPONATREMIA: -Na: 130-->134-->138-->137 -monitor electrolytes RIGHT BREAST PAIN: -continue to monitor, will need outpatient imaging; unable to inpatient as US does not perform whole breast US DM TYPE II: -has a hx of uncontrolled BSG in the past -continue basal insulin, NovoLog sliding scale per protocol -glycemic pharmacy consulted, appreciate input HTN: -continue amlodipine, propranolol -hold lisinopril and HCTZ in light of above DYSLIPIDEMIA: -continue statin DEPRESSION: -continue cymbalta GERD: -continue PPI Current Inpatient Medications: Current Inpatient Medications Medications (Trade) Dose Ordered Sig/Yudy Route Start Time Stop Time Status Last Admin Dose Admin Acetaminophen (Tylenol Tab) 650 mg Q4H PRN PO 06/30/17 17:30 07/30/17 17:29 07/01/17 20:24 650 MG Ondansetron HCl (Zofran Inj) 4 mg Q6H PRN IV 06/30/17 17:30 07/30/17 17:29 07/01/17 16:56 4 MG Nitroglycerin (Nitrostat Tab) 0.4 mg UD PRN SL 06/30/17 17:30 07/30/17 17:29 Albuterol (Ventolin Hfa Inhaler) 2 puffs Q4H PRN INH 06/30/17 17:45 07/30/17 17:44 Amlodipine Besylate (Norvasc Tab) 10 mg DAILY PO 07/01/17 09:00 07/31/17 08:59 07/02/17 07:46 10 MG Atorvastatin Calcium (Lipitor Tab) 20 mg DAILY PO 07/01/17 09:00 07/31/17 08:59 07/02/17 07:46 20 MG Cholecalciferol (Vitamin D Tab) 5,000 inter.unit DAILY PO 07/01/17 09:00 07/31/17 08:59 07/02/17 07:45 5,000 INTER.UNIT Duloxetine HCl (Cymbalta Cap) 60 mg QPM PO 06/30/17 21:00 07/30/17 20:59 07/01/17 20:25 60 MG Fish Oil ([place]-3 (Purified Fish Oil) Cap) 1 gm BID PO 06/30/17 21:00 07/30/17 20:59 07/02/17 07:45 1 GM Pregabalin (Lyrica Cap) 50 mg TID PO 06/30/17 21:00 07/30/17 20:59 07/02/17 14:40 50 MG Pantoprazole Sodium (Protonix Tab) 40 mg QAM PO 07/01/17 09:00 07/31/17 08:59 07/02/17 07:46 40 MG Propranolol HCl (Inderal La Cap) 120 mg BID PO 06/30/17 21:00 07/30/17 20:59 07/02/17 07:46 120 MG Insulin Aspart (novoLOG ASPART) SLIDING SCALE If C... ACHS SC 06/30/17 21:00 07/30/17 20:59 07/02/17 17:32 18 UNITS Glucose (Glucose 40% Gel) 15-30 GRAMS 15 GRAMS... UD PRN PO 06/30/17 17:45 07/30/17 17:44 Glucose (Glucose Chew Tab) 4-8 Tablets 4 Tabl... UD PRN PO 06/30/17 17:45 07/30/17 17:44 Dextrose (Dextrose 50% 50ML Syringe) 25-50ML OF 50% DW IV FOR... UD PRN IV 06/30/17 17:45 07/30/17 17:44 Glucagon (Glucagon Inj) 1 mg UD PRN SQ 06/30/17 17:45 07/30/17 17:44 Miscellaneous Information (Consult Glycemic Management Pharmacy) 1 ea UD PRN N/A 06/30/17 17:56 07/30/17 17:55 Tramadol HCl (Ultram Tab) 50 mg Q6 PRN PO 06/30/17 18:00 07/30/17 17:59 07/01/17 21:38 50 MG Heparin Sodium (Porcine) (Heparin Sq 5000 Unit/0.5ml) 5,000 unit Q8H SQ 06/30/17 22:00 07/30/17 21:59 07/02/17 14:40 5,000 UNIT Miscellaneous Information (Order Awaiting Action) 1 ea QS N/A 07/01/17 00:00 07/31/17 00:00 Insulin Glargine (Lantus Solostar Pen) SEE PROTOCOL TEXT Q12 SC 07/01/17 21:00 07/31/17 20:59 07/02/17 08:01 15 UNITS Potassium/ Phosphorus/Sodium (Phospha 250 Neutral 155-852-130 Mg) 2 tab QID PO 07/02/17 09:00 08/01/17 08:59 07/02/17 17:31 2 TAB Sodium Bicarbonate (Sodium Bicarbonate Tab) 650 mg TID PO 07/02/17 09:00 07/30/17 20:59 07/02/17 14:36 650 MG Potassium Chloride/Sodium Chloride 1,000 ml @ 75 mls/hr [id number] IV 07/02/17 08:44 08/01/17 08:43 07/02/17 09:13 75 MLS/HR
[2017-07-02] MEDS: TRAMADOL HCL 50 MG TAB PO PRN (19:57)
[2017-07-02] MEDS: DULOXETINE HCL 60 MG CAP PO SCH (20:53)
[2017-07-02] MEDS: ACETAMINOPHEN 325 MG TAB PO PRN (22:24)
--- NOTE | 2017-07-03 01:29 | Progress Note ---
Post ICU Progress Note Date & Time Jul 03, 2017 at 01:23 Vital Signs Vital Signs Past 12 Hours Date Time Temp Pulse Resp B/P (MAP) Pulse Ox O2 Delivery O2 Flow Rate FiO2 07/03/17 00:00 Room Air 07/02/17 23:57 37.2 78 18 158/89 (112) 97 Room Air 07/02/17 20:00 Room Air 07/02/17 18:54 37.1 87 17 122/71 (88) 96 Room Air 07/02/17 16:01 Room Air 07/02/17 16:01 67 15 129/83 (98) 100 Room Air 07/02/17 15:00 59 16 146/83 (104) 99 Room Air 07/02/17 14:00 67 16 137/75 (95) 98 Room Air Notes Mental Status: alert / awake Nausea / Vomiting: adequately controlled Pain: adequately controlled Airway Patency, RR, SpO2: stable & adequate BP & HR: stable & adequate Patient is a 42-year-old female who has had recurrent episodes of metabolic acidosis which had previously been attributed solely to her DKA, but it is now evident that this is likely more multifactorial. While in the ICU, she remained on bicarb drip. Her hydrochlorthiazide was discontinued. She slowly progressed every day and was discharged yesterday. She continues to follow closely with nephrology with whom she is very familiar. On evaluation, the patient is resting comfortably. She only complains of RIGHT- sided rib pain which she sustained from fractures after a syncopal episode 2 weeks ago. Otherwise, the patient feels much better and is encouraged about the hopes of being discharged soon. Consider outpatient follow up in 1 to 2 weeks with: Nephrology, PCP Repeat imaging needed: None at this time Follow up cultures: N/A Reviewed progress notes, labs, and inpatient medication list Continue current management Additional recommendations: None at this point. Thank you for allowing us to participate in the care of this patient. At this time, Critical Care Services will sign off on this case. Please feel free to reconsult as needed.
[2017-07-03 03:48] VITALS: BP 124/74; PULSE 72; TEMP 37.1; O2SAT 95
[2017-07-03] MEDS: HEPARIN SOD 5000 UNIT/0.5 ML CARP SQ SCH ×3 (05:14→20:22)
[2017-07-03 06:42] LABS: BASO % 0.4 %; BASO ABS # 0.02 K/uL (0-0.2); EOS % 1.4 %; EOS ABS # 0.07 K/uL (0-0.5); HEMATOCRIT 28.6 % (37-47); IG# 0.01 K/uL (0.00-0.02); LYMPH % 45.5 %; LYMPH ABS # 2.25 K/uL (1.2-3.4); MEAN CELL VOLUME 81.7 fL (80-100); MEAN CORPUSCULAR HEMOGLOBIN 25.7 pg (25-34); MEAN CORPUSCULAR HGB CONC 31.5 g/dl (32-36); MEAN PLATELET VOLUME 9.1 fL (7.4-10.4); MONO % 8.1 %; NEUT % 44.4 %; NEUT ABS # 2.19 K/uL (1.4-6.5); PLATELET COUNT 365 K/uL (130-400); RED CELL DISTRIBUTION WIDTH CV 17.4 % (11.5-14.5); RED CELL DISTRIBUTION WIDTH SD 52.3 fL (36.4-46.3); WHITE BLOOD COUNT 4.94 K/uL (4.8-10.8)
[2017-07-03 07:21] LABS: CALCIUM 9.5 mg/dl (8.5-10.1); CREATININE 0.66 mg/dl (0.60-1.20); PHOSPHORUS 2.7 mg/dl (2.5-4.9); POTASSIUM 3.5 mmol/L (3.5-5.1)
[2017-07-03 07:48] VITALS: BP 168/89; PULSE 61; TEMP 36.9; O2SAT 97
[2017-07-03] MEDS: PROPRANOLOL HCL 60 MG LA CAP PO SCH ×2 (08:40→20:19)
[2017-07-03] MEDS: POTASSIUM CHLORIDE 20 MEQ TABCR PO SCH ×2 (08:40→20:20)
[2017-07-03] MEDS: SODIUM BICARBONATE 650 MG TAB PO SCH ×2 (08:40→20:18)
[2017-07-03] MEDS: CHOLECALCIFEROL 1000 INTER.UNIT TAB PO SCH (08:41)
[2017-07-03] MEDS: AMLODIPINE BESYLATE 5 MG TAB PO SCH (08:41)
[2017-07-03] MEDS: OMEGA-3 (PURIFIED FISH OIL) 1 GM CAP PO SCH ×2 (08:41→20:17)
[2017-07-03] MEDS: ATORVASTATIN 20 MG TAB PO SCH (08:41)
[2017-07-03] MEDS: PANTOprazole SOD 40 MG TAB PO SCH (08:41)
[2017-07-03] MEDS: INSULIN ASPART 100 UNITS/ML 3 ML PEN SC SCH ×4 (08:46→20:20)
[2017-07-03] MEDS: PREGABALIN 50 MG CAP PO SCH ×3 (08:48→20:17)
[2017-07-03] MEDS: INSULIN GLARGINE SOLOSTAR 100 UNITS/ML 3 ML PEN SC SCH ×2 (08:48→20:21)
--- NOTE | 2017-07-03 11:53 | Pharmacy Progress Note ---
Pharmacy Glycemic Short Note 2 Date of Service Jul 03, 2017. OUTPATIENT ANTIDIABETIC REGIMEN: * Tresiba 100 units qHS * Humalog 16 w/ breakfast, 20 w/ lunch, 26 w/ dinner * A1c = 13.8 % 04/17/17 ASSESSMENT: * Ms Hernandez is a 42 y/o F with a PMH of HTN, GERD, C diff with colostomy, and poorly controlled type 2 diabetes who initially presented with acidosis. She has placed on an insulin infusion plus IV fluids containing dextrose and bicarbonate. Dextrose was discontinued 07/01/17 at 1700. * Yesterday, the patient's blood sugars were [phone] while receiving 70 units of insulin (30 units of which were basal). Patient's fasting today was 102 mg/dL which is slightly below goal range. It is increased from yesterday's fasting of 90 mg/dL. Continue current Lantus scale as patient may require slightly higher dose if fasting continues to trend upwards. Did add middle dose to scale today. * For Novolog, it appears that the patient's carbohydrates are adequately covered. Continue current scale. PLAN FOR INPATIENT GLYCEMIC CONTROL: * Basal insulin - added additional dose * Lantus 15 units SQ BID (for BSG less than 140 mg/dL) * Lantus 20 units SQ BID (for BSG 140-180 mg/dL) * Lantus 25 units SQ BID (for BSG greater than 180 mg/dL) * Bolus insulin - no change * NovoLog per scale ACHS or Q6hrs while NPO * Goal Range: Low 110 mg/dL - High 150 mg/dL * Correction Factor: 10 mg/dL/unit * LOOSEN Nutritional / Prandial insulin per carb ratio of 1 unit per 4 grams CHO consumed
[2017-07-03 12:20] VITALS: BP 130/76; PULSE 69; TEMP 37.1; O2SAT 98
[2017-07-03 15:25] VITALS: BP 164/81; PULSE 60; TEMP 36.7; O2SAT 100
[2017-07-03 16:00] VITALS: O2SAT 100
[2017-07-03 16:39] LABS: CALCIUM 10.3 mg/dl (8.5-10.1); CREATININE 0.88 mg/dl (0.60-1.20)
[2017-07-03 16:40] LABS: POTASSIUM 4.2 mmol/L (3.5-5.1)
--- NOTE | 2017-07-03 17:12 | Nephrology Progress Note ---
Nephrology Progress Note Date of Service: Jul 03, 2017. Subjective ongoing N >> but somehwat improved eating; no pain, no sob; no diarrhea; no N Objective Date Time Temp Pulse Resp B/P (MAP) Pulse Ox O2 Delivery O2 Flow Rate FiO2 07/03/17 15:25 36.7 60 20 164/81 (108) 100 Room Air 07/03/17 12:20 37.1 69 16 130/76 (94) 98 07/03/17 12:00 Room Air 07/03/17 08:10 Room Air 07/03/17 07:48 36.9 61 16 168/89 (115) 97 Room Air 07/03/17 04:00 Room Air 07/03/17 03:48 37.1 72 18 124/74 (91) 95 Room Air 07/03/17 00:00 Room Air 07/02/17 23:57 37.2 78 18 158/89 (112) 97 Room Air 07/02/17 20:00 Room Air 07/02/17 18:54 37.1 87 17 122/71 (88) 96 Room Air Physical Exam: General Appearance: WD/WN, no apparent distress, + obese Eyes: normal inspection ENT: normal ENT inspection Neck: supple Respiratory/Chest: normal breath sounds, + decreased breath sounds Cardiovascular: regular rate, rhythm (w/ occasional skipped beat), no edema Abdomen: normal bowel sounds, non tender, soft (no damico) Extremities: no pedal edema, normal capillary refill Neurologic/Psych: alert, normal mood/affect, oriented x 3 Skin: normal color (plethoric fascies), no jaundice, warm/dry, no rash Current Inpatient Medications Medications (Trade) Dose Ordered Sig/Yudy Route Start Time Stop Time Status Last Admin Dose Admin Acetaminophen (Tylenol Tab) 650 mg Q4H PRN PO 06/30/17 17:30 07/30/17 17:29 07/02/17 22:24 650 MG Ondansetron HCl (Zofran Inj) 4 mg Q6H PRN IV 06/30/17 17:30 07/30/17 17:29 07/01/17 16:56 4 MG Nitroglycerin (Nitrostat Tab) 0.4 mg UD PRN SL 06/30/17 17:30 07/30/17 17:29 Albuterol (Ventolin Hfa Inhaler) 2 puffs Q4H PRN INH 06/30/17 17:45 07/30/17 17:44 Amlodipine Besylate (Norvasc Tab) 10 mg DAILY PO 07/01/17 09:00 07/31/17 08:59 07/03/17 08:41 10 MG Atorvastatin Calcium (Lipitor Tab) 20 mg DAILY PO 07/01/17 09:00 07/31/17 08:59 07/03/17 08:41 20 MG Cholecalciferol (Vitamin D Tab) 5,000 inter.unit DAILY PO 07/01/17 09:00 07/31/17 08:59 07/03/17 08:41 5,000 INTER.UNIT Duloxetine HCl (Cymbalta Cap) 60 mg QPM PO 06/30/17 21:00 07/30/17 20:59 07/02/17 20:53 60 MG Fish Oil ([place]-3 (Purified Fish Oil) Cap) 1 gm BID PO 06/30/17 21:00 07/30/17 20:59 07/03/17 08:41 1 GM Pregabalin (Lyrica Cap) 50 mg TID PO 06/30/17 21:00 07/30/17 20:59 07/03/17 14:58 50 MG Pantoprazole Sodium (Protonix Tab) 40 mg QAM PO 07/01/17 09:00 07/31/17 08:59 07/03/17 08:41 40 MG Propranolol HCl (Inderal La Cap) 120 mg BID PO 06/30/17 21:00 07/30/17 20:59 07/03/17 08:40 120 MG Insulin Aspart (novoLOG ASPART) SLIDING SCALE If C... ACHS SC 06/30/17 21:00 07/30/17 20:59 07/03/17 16:57 11 UNITS Glucose (Glucose 40% Gel) 15-30 GRAMS 15 GRAMS... UD PRN PO 06/30/17 17:45 07/30/17 17:44 Glucose (Glucose Chew Tab) 4-8 Tablets 4 Tabl... UD PRN PO 06/30/17 17:45 07/30/17 17:44 Dextrose (Dextrose 50% 50ML Syringe) 25-50ML OF 50% DW IV FOR... UD PRN IV 06/30/17 17:45 07/30/17 17:44 Glucagon (Glucagon Inj) 1 mg UD PRN SQ 06/30/17 17:45 07/30/17 17:44 Miscellaneous Information (Consult Glycemic Management Pharmacy) 1 ea UD PRN N/A 06/30/17 17:56 07/30/17 17:55 Tramadol HCl (Ultram Tab) 50 mg Q6 PRN PO 06/30/17 18:00 07/30/17 17:59 07/02/17 19:57 50 MG Heparin Sodium (Porcine) (Heparin Sq 5000 Unit/0.5ml) 5,000 unit Q8H SQ 06/30/17 22:00 07/30/17 21:59 07/03/17 15:00 5,000 UNIT Miscellaneous Information (Order Awaiting Action) 1 ea QS N/A 07/01/17 00:00 07/31/17 00:00 Insulin Glargine (Lantus Solostar Pen) SEE PROTOCOL TEXT Q12 SC 07/01/17 21:00 07/31/17 20:59 07/03/17 08:48 15 UNITS Sodium Bicarbonate (Sodium Bicarbonate Tab) 650 mg BID PO 07/03/17 09:00 07/30/17 20:59 07/03/17 08:40 650 MG Potassium Chloride (Klor-Con Tab) 20 meq BID PO 07/03/17 09:00 08/02/17 08:59 07/03/17 08:40 20 MEQ Last 24 Hours Test 07/02/17 20:21 07/03/17 06:08 07/03/17 06:59 07/03/17 10:52 Bedside Glucose 130 mg/dl 102 mg/dl 135 mg/dl White Blood Count 4.94 K/uL Red Blood Count 3.50 M/uL Hemoglobin 9.0 g/dL Hematocrit 28.6 % Mean Corpuscular Volume 81.7 fL Mean Corpuscular Hemoglobin 25.7 pg Mean Corpuscular Hemoglobin Concent 31.5 g/dl Platelet Count 365 K/uL Mean Platelet Volume 9.1 fL Neutrophils (%) (Auto) 44.4 % Lymphocytes (%) (Auto) 45.5 % Monocytes (%) (Auto) 8.1 % Eosinophils (%) (Auto) 1.4 % Basophils (%) (Auto) 0.4 % Neutrophils # (Auto) 2.19 K/uL Lymphocytes # (Auto) 2.25 K/uL Monocytes # (Auto) 0.40 K/uL Eosinophils # (Auto) 0.07 K/uL Basophils # (Auto) 0.02 K/uL RDW Standard Deviation 52.3 fL RDW Coefficient of Variation 17.4 % Immature Granulocyte % (Auto) 0.2 % Immature Granulocyte # (Auto) 0.01 K/uL Sodium Level 139 mmol/L Potassium Level 3.5 mmol/L Chloride Level 104 mmol/L Carbon Dioxide Level 29 mmol/L Anion Gap 6.0 mmol/L Blood Urea Nitrogen 11 mg/dl Creatinine 0.66 mg/dl Est Creatinine Clear Calc Drug Dose 110.7 ml/min Estimated GFR () 124.5 Estimated GFR (Non- 107.4 BUN/Creatinine Ratio 17.3 Random Glucose 93 mg/dl Calcium Level 9.5 mg/dl Phosphorus Level 2.7 mg/dl Test 07/03/17 16:05 07/03/17 16:27 Sodium Level 136 mmol/L Potassium Level 4.2 mmol/L Chloride Level 102 mmol/L Carbon Dioxide Level 28 mmol/L Anion Gap 6.0 mmol/L Blood Urea Nitrogen 17 mg/dl Creatinine 0.88 mg/dl Est Creatinine Clear Calc Drug Dose 83.0 ml/min Estimated GFR () 92.6 Estimated GFR (Non- 79.9 BUN/Creatinine Ratio 19.1 Random Glucose 89 mg/dl Calcium Level 10.3 mg/dl Bedside Glucose 97 mg/dl Assessment & Plan 42 y/o F w/ DM on insulin, ckd, hx colectomy in past for C diff, chronic suppurative hidradenitis, HTN, CKD, chronic metabolic acidosis w/ acute worsening 4x this year so far each requiring admission and 2 requiring acute dialysis. Acute on chronic metabolic acidosis with dyskalemia, (now resolved ) low phos no clear cause found; suspect multifactorial related to colectomy/diarrhea/ GI losses as well as dm --worsened by poor po intake but responding to IV meds she was borderline hyperchloremic on presentation; improved quickly on high dose po and IV bicarb -stop neutraphos, cut po bicarb further to 650 mg bid -chagned IVF to take out bicarb to 1/2 NS w/ 20 mEq K at 75 -recheck bmp, phos later this afternoon< order in -cont strict I/O; cont to hold diuretic and use prn only -recommend 24 hrs stability on po meds before d/c appreciate consult; will follow with you. Care coordinated w/ Dr. Lopez
--- NOTE | 2017-07-03 18:30 | Progress Note ---
Medicine Progress Note Date & Time of Visit: Jul 03, 2017 at 18:30. Subjective Patient is doing well, states she feels much better and her pain is well controlled. No overnight events noted. Has been tolerating PO and off IV fluids since yesterday. She has been ambulating in her room without any difficulty. No other complaints noted. Objective Last 8 Hrs Date Time Temp Pulse Resp B/P (MAP) Pulse Ox O2 Delivery O2 Flow Rate FiO2 07/03/17 16:00 100 Room Air 07/03/17 15:25 36.7 60 20 164/81 (108) 100 Room Air 07/03/17 12:20 37.1 69 16 130/76 (94) 98 07/03/17 12:00 Room Air Physical Exam: GENERAL: Patient is in no acute distress. HEENT: No acute trauma, normocephalic, mucous membranes moist, no nasal congestion, no scleral icterus. NECK: No stridor, trachea is midline. LUNGS: Clear to auscultation bilaterally, no wheeze, no rhonchi, breath sounds equal. HEART: Without murmurs gallops or rubs, regular rate and rhythm. Right side chest and abdomen tender ABDOMEN: Soft, nontender, bowel sounds positive EXTREMITIES: No cyanosis or edema, full range of motion of all the joints without pain or difficulty, no signs for acute trauma. NEUROLOGIC: Oriented x 3, no acute motor or sensory deficits, no focal weakness. SKIN: No rash, no jaundice, no diaphoresis. Laboratory Results: Last 24 Hours Test 07/02/17 20:21 07/03/17 06:08 07/03/17 06:59 07/03/17 10:52 Bedside Glucose 130 mg/dl 102 mg/dl 135 mg/dl White Blood Count 4.94 K/uL Red Blood Count 3.50 M/uL Hemoglobin 9.0 g/dL Hematocrit 28.6 % Mean Corpuscular Volume 81.7 fL Mean Corpuscular Hemoglobin 25.7 pg Mean Corpuscular Hemoglobin Concent 31.5 g/dl Platelet Count 365 K/uL Mean Platelet Volume 9.1 fL Neutrophils (%) (Auto) 44.4 % Lymphocytes (%) (Auto) 45.5 % Monocytes (%) (Auto) 8.1 % Eosinophils (%) (Auto) 1.4 % Basophils (%) (Auto) 0.4 % Neutrophils # (Auto) 2.19 K/uL Lymphocytes # (Auto) 2.25 K/uL Monocytes # (Auto) 0.40 K/uL Eosinophils # (Auto) 0.07 K/uL Basophils # (Auto) 0.02 K/uL RDW Standard Deviation 52.3 fL RDW Coefficient of Variation 17.4 % Immature Granulocyte % (Auto) 0.2 % Immature Granulocyte # (Auto) 0.01 K/uL Sodium Level 139 mmol/L Potassium Level 3.5 mmol/L Chloride Level 104 mmol/L Carbon Dioxide Level 29 mmol/L Anion Gap 6.0 mmol/L Blood Urea Nitrogen 11 mg/dl Creatinine 0.66 mg/dl Est Creatinine Clear Calc Drug Dose 110.7 ml/min Estimated GFR () 124.5 Estimated GFR (Non- 107.4 BUN/Creatinine Ratio 17.3 Random Glucose 93 mg/dl Calcium Level 9.5 mg/dl Phosphorus Level 2.7 mg/dl Test 07/03/17 16:05 07/03/17 16:27 Sodium Level 136 mmol/L Potassium Level 4.2 mmol/L Chloride Level 102 mmol/L Carbon Dioxide Level 28 mmol/L Anion Gap 6.0 mmol/L Blood Urea Nitrogen 17 mg/dl Creatinine 0.88 mg/dl Est Creatinine Clear Calc Drug Dose 83.0 ml/min Estimated GFR () 92.6 Estimated GFR (Non- 79.9 BUN/Creatinine Ratio 19.1 Random Glucose 89 mg/dl Calcium Level 10.3 mg/dl Bedside Glucose 97 mg/dl Assessment & Plan METABOLIC ACIDOSIS: -on admission pH: 7.1/29/108/10 bicarb 8. +anion gap but no DKA; now anion gap has closed, ph improved, bicarb improved and remains stable even on PO supplements -with chronic hypobicarbonatemia; was on chronic PO bicarb replacements -vitals stable and no mental status changes noted -initially in ICU due to history of rapid decompensation in the past, moved to tele since -Advertising Statistical Clerk consulted, appreciate recs -Nephrology consulted appreciate management; on oral bicarb, bicarb IV and LR initially which have all been changed to PO -Salicylate, acetaminophen levels neg -phosphorus low -TSH low, will check free T4 OK ON CKD STAGE III: resolved -Cr: 1.6-->1.17-->0.66 -was 1.3 on 06/26/17. (range 1.3-2.2) -IV fluids stopped yesterday -monitor renal function -avoid nephrotoxic agents when possible RIGHT RIB FRACTURE: secondary to recent fall -fell a couple days ago -CXR: Right rib fractures in 5,6,7 -tramadol prn pain -incentive spirometer encouraged ELEVATED D-DIMER: -D-dimer: 790 -LE doppler negative for DVT. Held off on CTA chest secondary to pt's renal function and lack of pulm symptoms LEUKOCYTOSIS: -Afebrile. WBC: 14. Lactic acid: 0.36. procalcitonin slightly elevated -blood and urine cultures negative HYPONATREMIA: -Na: 130-->134-->138-->137-->139-->136 -monitor electrolytes RIGHT BREAST PAIN: -continue to monitor, will need outpatient imaging; unable to inpatient as US does not perform whole breast US DM TYPE II: -has a hx of uncontrolled BSG in the past -continue basal insulin, NovoLog sliding scale per protocol -glycemic pharmacy consulted, appreciate input HTN: -continue amlodipine, propranolol -hold lisinopril and HCTZ in light of above DYSLIPIDEMIA: -continue statin DEPRESSION: -continue cymbalta GERD: -continue PPI Current Inpatient Medications: Current Inpatient Medications Medications (Trade) Dose Ordered Sig/Yudy Route Start Time Stop Time Status Last Admin Dose Admin Acetaminophen (Tylenol Tab) 650 mg Q4H PRN PO 06/30/17 17:30 07/30/17 17:29 07/02/17 22:24 650 MG Ondansetron HCl (Zofran Inj) 4 mg Q6H PRN IV 06/30/17 17:30 07/30/17 17:29 07/01/17 16:56 4 MG Nitroglycerin (Nitrostat Tab) 0.4 mg UD PRN SL 06/30/17 17:30 07/30/17 17:29 Albuterol (Ventolin Hfa Inhaler) 2 puffs Q4H PRN INH 06/30/17 17:45 07/30/17 17:44 Amlodipine Besylate (Norvasc Tab) 10 mg DAILY PO 07/01/17 09:00 07/31/17 08:59 07/03/17 08:41 10 MG Atorvastatin Calcium (Lipitor Tab) 20 mg DAILY PO 07/01/17 09:00 07/31/17 08:59 07/03/17 08:41 20 MG Cholecalciferol (Vitamin D Tab) 5,000 inter.unit DAILY PO 07/01/17 09:00 07/31/17 08:59 07/03/17 08:41 5,000 INTER.UNIT Duloxetine HCl (Cymbalta Cap) 60 mg QPM PO 06/30/17 21:00 07/30/17 20:59 07/02/17 20:53 60 MG Fish Oil ([place]-3 (Purified Fish Oil) Cap) 1 gm BID PO 06/30/17 21:00 07/30/17 20:59 07/03/17 08:41 1 GM Pregabalin (Lyrica Cap) 50 mg TID PO 06/30/17 21:00 07/30/17 20:59 07/03/17 14:58 50 MG Pantoprazole Sodium (Protonix Tab) 40 mg QAM PO 07/01/17 09:00 07/31/17 08:59 07/03/17 08:41 40 MG Propranolol HCl (Inderal La Cap) 120 mg BID PO 06/30/17 21:00 07/30/17 20:59 07/03/17 08:40 120 MG Insulin Aspart (novoLOG ASPART) SLIDING SCALE If C... ACHS SC 06/30/17 21:00 07/30/17 20:59 07/03/17 16:57 11 UNITS Glucose (Glucose 40% Gel) 15-30 GRAMS 15 GRAMS... UD PRN PO 06/30/17 17:45 07/30/17 17:44 Glucose (Glucose Chew Tab) 4-8 Tablets 4 Tabl... UD PRN PO 06/30/17 17:45 07/30/17 17:44 Dextrose (Dextrose 50% 50ML Syringe) 25-50ML OF 50% DW IV FOR... UD PRN IV 06/30/17 17:45 07/30/17 17:44 Glucagon (Glucagon Inj) 1 mg UD PRN SQ 06/30/17 17:45 07/30/17 17:44 Miscellaneous Information (Consult Glycemic Management Pharmacy) 1 ea UD PRN N/A 06/30/17 17:56 07/30/17 17:55 Tramadol HCl (Ultram Tab) 50 mg Q6 PRN PO 06/30/17 18:00 07/30/17 17:59 07/02/17 19:57 50 MG Heparin Sodium (Porcine) (Heparin Sq 5000 Unit/0.5ml) 5,000 unit Q8H SQ 06/30/17 22:00 07/30/17 21:59 07/03/17 15:00 5,000 UNIT Miscellaneous Information (Order Awaiting Action) 1 ea QS N/A 07/01/17 00:00 07/31/17 00:00 Insulin Glargine (Lantus Solostar Pen) SEE PROTOCOL TEXT Q12 SC 07/01/17 21:00 07/31/17 20:59 07/03/17 08:48 15 UNITS Sodium Bicarbonate (Sodium Bicarbonate Tab) 650 mg BID PO 07/03/17 09:00 07/30/17 20:59 07/03/17 08:40 650 MG Potassium Chloride (Klor-Con Tab) 20 meq BID PO 07/03/17 09:00 08/02/17 08:59 07/03/17 08:40 20 MEQ
[2017-07-03 19:31] VITALS: BP 126/74; PULSE 59; TEMP 37.2; O2SAT 98
[2017-07-03] MEDS: DULOXETINE HCL 60 MG CAP PO SCH (20:19)
[2017-07-04 00:08] VITALS: BP 157/76; PULSE 62; TEMP 36.6; O2SAT 98
[2017-07-04 04:06] VITALS: BP 132/73; PULSE 59; TEMP 36.6; O2SAT 98
[2017-07-04 04:44] LABS: HEMATOCRIT 30.3 % (37-47); HEMOGLOBIN 9.2 g/dL (12.0-16.0); MEAN CELL VOLUME 82.8 fL (80-100); MEAN CORPUSCULAR HEMOGLOBIN 25.1 pg (25-34); MEAN CORPUSCULAR HGB CONC 30.4 g/dl (32-36); MEAN PLATELET VOLUME 9.1 fL (7.4-10.4); PLATELET COUNT 407 K/uL (130-400); RED CELL DISTRIBUTION WIDTH CV 17.5 % (11.5-14.5); RED CELL DISTRIBUTION WIDTH SD 53.5 fL (36.4-46.3); WHITE BLOOD COUNT 5.33 K/uL (4.8-10.8)
[2017-07-04 05:03] LABS: CALCIUM 10.3 mg/dl (8.5-10.1); CREATININE 0.87 mg/dl (0.60-1.20); POTASSIUM 4.1 mmol/L (3.5-5.1)
[2017-07-04 05:10] LABS: BASO % 0.4 %; BASO ABS # 0.02 K/uL (0-0.2); EOS % 2.1 %; EOS ABS # 0.11 K/uL (0-0.5); IG# 0.01 K/uL (0.00-0.02); LYMPH % 52.7 %; LYMPH ABS # 2.81 K/uL (1.2-3.4); MONO % 7.5 %; NEUT % 37.1 %; NEUT ABS # 1.98 K/uL (1.4-6.5)
[2017-07-04 05:18] LABS: PHOSPHORUS 4.3 mg/dl (2.5-4.9)
[2017-07-04] MEDS: HEPARIN SOD 5000 UNIT/0.5 ML CARP SQ SCH (05:40)
[2017-07-04 07:57] VITALS: BP 173/93; PULSE 65; TEMP 36.5; O2SAT 97
[2017-07-04] MEDS: INSULIN ASPART 100 UNITS/ML 3 ML PEN SC SCH ×2 (08:34→12:22)
[2017-07-04] MEDS: INSULIN GLARGINE SOLOSTAR 100 UNITS/ML 3 ML PEN SC SCH (08:34)
[2017-07-04] MEDS: PANTOprazole SOD 40 MG TAB PO SCH (08:35)
[2017-07-04] MEDS: AMLODIPINE BESYLATE 5 MG TAB PO SCH (08:35)
[2017-07-04] MEDS: SODIUM BICARBONATE 650 MG TAB PO SCH (08:35)
[2017-07-04] MEDS: OMEGA-3 (PURIFIED FISH OIL) 1 GM CAP PO SCH (08:35)
[2017-07-04] MEDS: POTASSIUM CHLORIDE 20 MEQ TABCR PO SCH (08:35)
[2017-07-04] MEDS: CHOLECALCIFEROL 1000 INTER.UNIT TAB PO SCH (08:35)
[2017-07-04] MEDS: ATORVASTATIN 20 MG TAB PO SCH (08:35)
[2017-07-04] MEDS: PROPRANOLOL HCL 60 MG LA CAP PO SCH (08:36)
[2017-07-04] MEDS: PREGABALIN 50 MG CAP PO SCH ×2 (08:37→14:24)
--- NOTE | 2017-07-04 09:46 | Pharmacy Progress Note ---
Pharmacy Glycemic Short Note 2 Date of Service Jul 04, 2017. OUTPATIENT ANTIDIABETIC REGIMEN: * Tresiba 100 units qHS * Humalog 16 w/ breakfast, 20 w/ lunch, 26 w/ dinner * A1c = 13.8 % 04/17/17 ASSESSMENT: * Ms Hernandez is a 42 y/o F with a PMH of HTN, GERD, C diff with colostomy, and poorly controlled type 2 diabetes who initially presented with acidosis. She has placed on an insulin infusion plus IV fluids containing dextrose and bicarbonate. Dextrose was discontinued 07/01/17 at 1700. * Yesterday, the patient's blood sugars were [phone] while receiving 55 units of insulin (30 units of which were basal). Patient's fasting today was 115 mg/dL which is slightly below goal range. It is increased from yesterday's fasting of 102 mg/dL. Continue current Lantus scale as patient may require slightly higher dose if fasting continues to trend upwards. Removed highest dose of 25 units as at this point this would be too aggressive for the patient. * For Novolog, it appears that the patient's carbohydrates are more than adequately covered. Loosened carbohydrate ratio slightly. PLAN FOR INPATIENT GLYCEMIC CONTROL: * Basal insulin * Lantus 15 units SQ BID (for BSG less than 140 mg/dL) * Lantus 20 units SQ BID (for BSG 140 mg/dL or greater) * Bolus insulin - loosened carbohydrate ratio slightly * NovoLog per scale ACHS or Q6hrs while NPO * Goal Range: Low 110 mg/dL - High 150 mg/dL * Correction Factor: 10 mg/dL/unit * LOOSEN Nutritional / Prandial insulin per carb ratio of 1 unit per 5 grams CHO consumed
--- NOTE | 2017-07-04 11:44 | Progress Note ---
Medicine Progress Note Date & Time of Visit: Jul 04, 2017 at 11:43. Subjective Doing well. No chest pain. No cough or dyspnea. No nausea or vomiting. No diarrhea. Ambulating . Objective Last 8 Hrs Date Time Temp Pulse Resp B/P (MAP) Pulse Ox O2 Delivery O2 Flow Rate FiO2 07/04/17 07:57 36.5 65 16 173/93 (119) 97 07/04/17 04:06 36.6 59 16 132/73 (92) 98 Room Air 07/04/17 04:00 Room Air Physical Exam: General- sitting in chair, no distress Lungs- clear to auscultation; no respiratory distress Cardiovascular- RRR; no gallop; no JVD; no pretibial edema Abdomen- + bowel sounds, soft, nontender Thorax- right subclavian central venous catheter Extremities- no cyanosis; no calf tenderness Neuro- alert, oriented Skin- warm & dry . Laboratory Results: Last 24 Hours Test 07/03/17 16:05 07/03/17 16:27 07/03/17 20:15 07/04/17 00:00 Sodium Level 136 mmol/L Potassium Level 4.2 mmol/L Chloride Level 102 mmol/L Carbon Dioxide Level 28 mmol/L Anion Gap 6.0 mmol/L Blood Urea Nitrogen 17 mg/dl Creatinine 0.88 mg/dl Est Creatinine Clear Calc Drug Dose 83.0 ml/min Estimated GFR () 92.6 Estimated GFR (Non- 79.9 BUN/Creatinine Ratio 19.1 Random Glucose 89 mg/dl Calcium Level 10.3 mg/dl Bedside Glucose 97 mg/dl 90 mg/dl Test 07/04/17 04:15 07/04/17 07:33 White Blood Count 5.33 K/uL Red Blood Count 3.66 M/uL Hemoglobin 9.2 g/dL Hematocrit 30.3 % Mean Corpuscular Volume 82.8 fL Mean Corpuscular Hemoglobin 25.1 pg Mean Corpuscular Hemoglobin Concent 30.4 g/dl Platelet Count 407 K/uL Mean Platelet Volume 9.1 fL Neutrophils (%) (Auto) 37.1 % Lymphocytes (%) (Auto) 52.7 % Monocytes (%) (Auto) 7.5 % Eosinophils (%) (Auto) 2.1 % Basophils (%) (Auto) 0.4 % Neutrophils # (Auto) 1.98 K/uL Lymphocytes # (Auto) 2.81 K/uL Monocytes # (Auto) 0.40 K/uL Eosinophils # (Auto) 0.11 K/uL Basophils # (Auto) 0.02 K/uL RDW Standard Deviation 53.5 fL RDW Coefficient of Variation 17.5 % Immature Granulocyte % (Auto) 0.2 % Immature Granulocyte # (Auto) 0.01 K/uL Hypochromasia PRESENT Sodium Level 139 mmol/L Potassium Level 4.1 mmol/L Chloride Level 106 mmol/L Carbon Dioxide Level 25 mmol/L Anion Gap 8.0 mmol/L Blood Urea Nitrogen 19 mg/dl Creatinine 0.87 mg/dl Est Creatinine Clear Calc Drug Dose 84.0 ml/min Estimated GFR () 93.9 Estimated GFR (Non- 81.0 BUN/Creatinine Ratio 21.6 Random Glucose 109 mg/dl Calcium Level 10.3 mg/dl Phosphorus Level 4.3 mg/dl Bedside Glucose 115 mg/dl Assessment & Plan METABOLIC ACIDOSIS Presented with marked metabolic acidosis. Seen in consultation by Nephrology. Metabolic acidosis thought to be secondary to combination of partial colectomy and decreased oral intake due to nausea. Metabolic parameters improved. Discharged on oral sodium bicarbonate. Follow serum chemistries as outpatient, initially every other day. ACUTE KIDNEY INJURY / CKD III History of chronic kidney disease stage III. Serum creatinine on admission was 1.69 and myriam to 1.75. Patient received intravenous fluids. Serum creatinine subsequently improved and creatinine on day of discharge was 0.87. Avoid potential nephrotoxins. Outpatient follow-up with Nephrology. HYPONATREMIA Serum sodium on admission was 130. Urine osmolality 435. Serum sodium day of discharge is 139. Consider discontinuation of SSRI if hyponatremia recurs. HYPOKALEMIA Serum sodium as low as 2.8. Received replacement. JAGRUTI was held, being resumed at time of discharge. Will DC KCl. Follow. MULTIPLE RIB FRACTURES X-rays showed nondisplaced fractures of right 5th, 6th, 7th ribs. Pain improved. Continue analgesics and incentive spirometry. ELEVATED D-DIMER D-dimer at time of admission was 790. Venous duplex lower extremity negative for DVT. CTA of chest and/or VQ scan not pursued due to low clinical suspicion for pulmonary embolism and acute kidney injury. LEUKOCYTOSIS White count of the time of admission was 14,180. No fever or apparent source of infection. Blood and urine cultures negative. BREAST PAIN Patient has been experiencing intermittent right breast discomfort for several months. Unable to perform diagnostic breast imaging as an inpatient at this facility. Outpatient follow-up with PCP recommended. HYPERTENSION Lisinopril and hydrochlorothiazide stopped at the time of admission due to acute kidney injury. Propranolol and amlodipine were continued. Resume lisinopril at time of discharge. Discontinue hydrochlorothiazide. GERD Continue esomeprazole. DM TYPE I Episode of DKA in April 2017. Hemoglobin A1c at that time was greater than 13. Blood sugars have been under better control since then. Hemoglobin during this hospital stay 6.6. Continue Tresiba and Humalog. Outpatient follow-up with Endocrinology. DYSLIPIDEMIA Continue atorvastatin and fenofibrate. VTE PROPHYLAXIS Received SQ heparin. Ambulating. DISPOSITION Discharge to home. Medical follow-up with Dr. Garsia. Nephrology follow-up with Dr. Everett. . Current Inpatient Medications: Current Inpatient Medications Medications (Trade) Dose Ordered Sig/Yudy Route Start Time Stop Time Status Last Admin Dose Admin Acetaminophen (Tylenol Tab) 650 mg Q4H PRN PO 06/30/17 17:30 07/30/17 17:29 07/02/17 22:24 650 MG Ondansetron HCl (Zofran Inj) 4 mg Q6H PRN IV 06/30/17 17:30 07/30/17 17:29 07/01/17 16:56 4 MG Nitroglycerin (Nitrostat Tab) 0.4 mg UD PRN SL 06/30/17 17:30 07/30/17 17:29 Albuterol (Ventolin Hfa Inhaler) 2 puffs Q4H PRN INH 06/30/17 17:45 07/30/17 17:44 Amlodipine Besylate (Norvasc Tab) 10 mg DAILY PO 07/01/17 09:00 07/31/17 08:59 07/04/17 08:35 10 MG Atorvastatin Calcium (Lipitor Tab) 20 mg DAILY PO 07/01/17 09:00 07/31/17 08:59 07/04/17 08:35 20 MG Cholecalciferol (Vitamin D Tab) 5,000 inter.unit DAILY PO 07/01/17 09:00 07/31/17 08:59 07/04/17 08:35 5,000 INTER.UNIT Duloxetine HCl (Cymbalta Cap) 60 mg QPM PO 3/23/18 21:00 07/30/17 20:59 07/03/17 20:19 60 MG Fish Oil ([place]-3 (Purified Fish Oil) Cap) 1 gm BID PO 06/30/17 21:00 07/30/17 20:59 07/04/17 08:35 1 GM Pregabalin (Lyrica Cap) 50 mg TID PO 06/30/17 21:00 07/30/17 20:59 07/04/17 08:37 50 MG Pantoprazole Sodium (Protonix Tab) 40 mg QAM PO 07/01/17 09:00 07/31/17 08:59 07/04/17 08:35 40 MG Propranolol HCl (Inderal La Cap) 120 mg BID PO 06/30/17 21:00 07/30/17 20:59 07/04/17 08:36 120 MG Insulin Aspart (novoLOG ASPART) SLIDING SCALE If C... ACHS SC 06/30/17 21:00 07/30/17 20:59 07/04/17 08:34 9 UNITS Glucose (Glucose 40% Gel) 15-30 GRAMS 15 GRAMS... UD PRN PO 06/30/17 17:45 07/30/17 17:44 Glucose (Glucose Chew Tab) 4-8 Tablets 4 Tabl... UD PRN PO 06/30/17 17:45 07/30/17 17:44 Dextrose (Dextrose 50% 50ML Syringe) 25-50ML OF 50% DW IV FOR... UD PRN IV 06/30/17 17:45 07/30/17 17:44 Glucagon (Glucagon Inj) 1 mg UD PRN SQ 06/30/17 17:45 07/30/17 17:44 Miscellaneous Information (Consult Glycemic Management Pharmacy) 1 ea UD PRN N/A 06/30/17 17:56 07/30/17 17:55 Tramadol HCl (Ultram Tab) 50 mg Q6 PRN PO 06/30/17 18:00 07/30/17 17:59 07/02/17 19:57 50 MG Heparin Sodium (Porcine) (Heparin Sq 5000 Unit/0.5ml) 5,000 unit Q8H SQ 06/30/17 22:00 07/30/17 21:59 07/04/17 05:40 5,000 UNIT Miscellaneous Information (Order Awaiting Action) 1 ea QS N/A 07/01/17 00:00 07/31/17 00:00 Insulin Glargine (Lantus Solostar Pen) SEE PROTOCOL TEXT Q12 SC 07/01/17 21:00 07/31/17 20:59 07/04/17 08:34 15 UNITS Sodium Bicarbonate (Sodium Bicarbonate Tab) 650 mg BID PO 07/03/17 09:00 07/30/17 20:59 07/04/17 08:35 650 MG Potassium Chloride (Klor-Con Tab) 20 meq BID PO 07/03/17 09:00 08/02/17 08:59 07/04/17 08:35 20 MEQ
[2017-07-04 12:17] VITALS: BP 158/78; PULSE 76; TEMP 36.8; O2SAT 96
[2017-07-04 12:48] LABS: HEMOGLOBIN A1C 6.6 % (4.5-5.6)
[2017-07-04] MEDS ORDERED: LISINOPRIL 5 MG TAB PO ONE (13:15)
[2017-07-04] MEDS ORDERED: ACET-1257 PO (13:19)
[2017-07-04] MEDS ORDERED: ACET500T58 PO (13:22)
[2017-07-04] MEDS ORDERED: RXC5 PO ×2 (13:22→14:11)
--- NOTE | 2017-07-04 13:40 | Discharge Instructions ---
Discharge Instructions Date of Service Jul 04, 2017. Admission Reason for Admission: metabolic acidosis, worsening kidney function, right rib fractures . Discharge Discharge Diagnosis / Problem: metabolic acidosis, worsening kidney function, right rib fractures Discharge Goals Goal(s): Decrease discomfort, Improve function, Improve disease control Activity Recommendations Activity Limitations: resume your previous activity . Instructions / Follow-Up Instructions / Follow-Up APPOINTMENTS: PRIMARY CARE Dr. Garsia- tomorrow as scheduled. NEPHROLOGY Dr. Everett Office will contact you with appointment. OTHER INSTRUCTIONS: Avoid anti-inflammatory medications like ibuprofen (Advil or Motrin) and naproxen (Aleve). They can cause kidney damage. May take Extra Strength Tylenol 1000 mg (2 pills) every 8 hrs as needed for pain. May take oxycodone 5 mg every 6 hrs as needed for severe pain. Can cause drowsiness. Keep away from children. Do breathing exercises several times a day until ribs heal. Ask Dr. Garsia to check your bone density to make certain that you don't have osteoporosis. Stop taking hydrochlorothiazide. Reduce sodium bicarbonate dose to 650 mg (1 pill) twice a day for now. Dose may be adjusted, depending on your lab results. Please have labs checked (basic metabolic profile) on , then every-other -day until otherwise instructed by Drs. Everett & Shayy. Your hemoglobin A1C level was 6.6. Good job! Reduce Tresiba dose to 30 units at bed time so your sugars don't drop too low after discharge from the hospital. Call your entry specialist if you sugars are running too high or too low. Talk to Dr. Garsia about your breast discomfort and see what he recommends. Seek medical attention if you have: * temperature above 101 * chest pain or trouble breathing * abdominal pain, nausea, vomiting * diarrhea, dark stools or bloody stools * any unanswered questions or concerns Call 911 if symptoms are severe. Call if you have any questions or problems. My cell # is [phone]. You can also reach a [facility] hospitalist on duty at [facility] 24 hours a day by calling [phone]. Please take good care of yourself. Lj Patel . Current Hospital Diet Patient's current hospital diet: Diabetes Type 2 Diet Discharge Diet Recommended Diet: AHA Diet (Heart Healthy), Diabetes Type 1 Diet Pending Studies Studies pending at discharge: no Laboratory Results Hemoglobin A1c Test 07/04/17 04:15 Range/Units Estimated Average Glucose 143 mg/dl Hemoglobin A1c 6.6 H 4.5-5.6 % Lipid Panel Test 06/16/17 07:05 Range/Units Triglycerides Level 263 H 0-150 mg/dl Cholesterol Level 194 0-200 mg/dl HDL Cholesterol 45 mg/dl Cholesterol/HDL Ratio 4.3 LDL Cholesterol, Calculated 96 mg/dl Work Instructions Return To Work: after follow-up Additional Instructions: Virginia Hernandez was absent from work since 06/30/17 due to illness. Return to work date to be determined after re-evaluation. Medical Emergencies . Who to Call and When: Medical Emergencies: If at any time you feel your situation is an emergency, please call 911 immediately. . Non-Emergent Contact Non-Emergency issues call your: Primary Care Provider, Hospital Doctor, Cabin Supervisor . . "Provider Documentation" section prepared by Lj Patel. . [place] Drug Monitoring Program Search Results: patient reviewed within database, no issues identified
[2017-07-04] MEDS ORDERED: OXYC-609 PO (14:16)
[2017-07-04 14:26] VITALS: BP 158/78; PULSE 76; TEMP 36.8; O2SAT 96
--- NOTE | 2017-07-04 20:48 | Nephrology Progress Note ---
Nephrology Progress Note Date of Service: Jul 04, 2017. Subjective N resolved; no pain, no sob; no diarrhea; tolerating po and meds Objective Date Time Temp Pulse Resp B/P (MAP) Pulse Ox O2 Delivery O2 Flow Rate FiO2 07/04/17 04:06 36.6 59 16 132/73 (92) 98 Room Air 07/04/17 04:00 Room Air 07/04/17 00:08 36.6 62 16 157/76 (103) 98 Room Air 07/04/17 00:00 Room Air 07/03/17 20:00 Room Air 07/03/17 19:31 37.2 59 20 126/74 (91) 98 Nasal Cannula 07/03/17 16:00 100 Room Air 07/03/17 15:25 36.7 60 20 164/81 (108) 100 Room Air 07/03/17 12:20 37.1 69 16 130/76 (94) 98 07/03/17 12:00 Room Air 07/03/17 08:10 Room Air 07/03/17 07:48 36.9 61 16 168/89 (115) 97 Room Air Physical Exam: General Appearance: WD/WN, no apparent distress, + obese, up in chair eating breakfast Eyes: normal inspection ENT: normal ENT inspection Neck: supple Respiratory/Chest: normal breath sounds, + decreased breath sounds Cardiovascular: regular rate, rhythm (w/ occasional skipped beat), no edema Abdomen: normal bowel sounds, non tender, soft (no damico) Extremities: no pedal edema, normal capillary refill Neurologic/Psych: alert, normal mood/affect, oriented x 3 Skin: normal color (plethoric fascies), no jaundice, warm/dry, no rash Current Inpatient Medications Medications (Trade) Dose Ordered Sig/Yudy Route Start Time Stop Time Status Last Admin Dose Admin Acetaminophen (Tylenol Tab) 650 mg Q4H PRN PO 06/30/17 17:30 07/30/17 17:29 07/02/17 22:24 650 MG Ondansetron HCl (Zofran Inj) 4 mg Q6H PRN IV 06/30/17 17:30 07/30/17 17:29 07/01/17 16:56 4 MG Nitroglycerin (Nitrostat Tab) 0.4 mg UD PRN SL 06/30/17 17:30 07/30/17 17:29 Albuterol (Ventolin Hfa Inhaler) 2 puffs Q4H PRN INH 06/30/17 17:45 07/30/17 17:44 Amlodipine Besylate (Norvasc Tab) 10 mg DAILY PO 07/01/17 09:00 07/31/17 08:59 07/03/17 08:41 10 MG Atorvastatin Calcium (Lipitor Tab) 20 mg DAILY PO 07/01/17 09:00 07/31/17 08:59 07/03/17 08:41 20 MG Cholecalciferol (Vitamin D Tab) 5,000 inter.unit DAILY PO 07/01/17 09:00 07/31/17 08:59 07/03/17 08:41 5,000 INTER.UNIT Duloxetine HCl (Cymbalta Cap) 60 mg QPM PO 06/30/17 21:00 07/30/17 20:59 07/03/17 20:19 60 MG Fish Oil ([place]-3 (Purified Fish Oil) Cap) 1 gm BID PO 06/30/17 21:00 07/30/17 20:59 07/03/17 20:17 1 GM Pregabalin (Lyrica Cap) 50 mg TID PO 06/30/17 21:00 07/30/17 20:59 07/03/17 20:17 50 MG Pantoprazole Sodium (Protonix Tab) 40 mg QAM PO 07/01/17 09:00 07/31/17 08:59 07/03/17 08:41 40 MG Propranolol HCl (Inderal La Cap) 120 mg BID PO 06/30/17 21:00 07/30/17 20:59 07/03/17 20:19 120 MG Insulin Aspart (novoLOG ASPART) SLIDING SCALE If C... ACHS SC 06/30/17 21:00 07/30/17 20:59 07/03/17 16:57 11 UNITS Glucose (Glucose 40% Gel) 15-30 GRAMS 15 GRAMS... UD PRN PO 06/30/17 17:45 07/30/17 17:44 Glucose (Glucose Chew Tab) 4-8 Tablets 4 Tabl... UD PRN PO 06/30/17 17:45 07/30/17 17:44 Dextrose (Dextrose 50% 50ML Syringe) 25-50ML OF 50% DW IV FOR... UD PRN IV 06/30/17 17:45 07/30/17 17:44 Glucagon (Glucagon Inj) 1 mg UD PRN SQ 06/30/17 17:45 07/30/17 17:44 Miscellaneous Information (Consult Glycemic Management Pharmacy) 1 ea UD PRN N/A 06/30/17 17:56 07/30/17 17:55 Tramadol HCl (Ultram Tab) 50 mg Q6 PRN PO 06/30/17 18:00 07/30/17 17:59 07/02/17 19:57 50 MG Heparin Sodium (Porcine) (Heparin Sq 5000 Unit/0.5ml) 5,000 unit Q8H SQ 06/30/17 22:00 07/30/17 21:59 07/04/17 05:40 5,000 UNIT Miscellaneous Information (Order Awaiting Action) 1 ea QS N/A 07/01/17 00:00 07/31/17 00:00 Insulin Glargine (Lantus Solostar Pen) SEE PROTOCOL TEXT Q12 SC 07/01/17 21:00 07/31/17 20:59 07/03/17 20:21 15 UNITS Sodium Bicarbonate (Sodium Bicarbonate Tab) 650 mg BID PO 07/03/17 09:00 07/30/17 20:59 07/03/17 20:18 650 MG Potassium Chloride (Klor-Con Tab) 20 meq BID PO 07/03/17 09:00 08/02/17 08:59 07/03/17 20:20 20 MEQ Last 24 Hours Test 07/03/17 10:52 07/03/17 16:05 07/03/17 16:27 07/03/17 20:15 Bedside Glucose 135 mg/dl 97 mg/dl 90 mg/dl Sodium Level 136 mmol/L Potassium Level 4.2 mmol/L Chloride Level 102 mmol/L Carbon Dioxide Level 28 mmol/L Anion Gap 6.0 mmol/L Blood Urea Nitrogen 17 mg/dl Creatinine 0.88 mg/dl Est Creatinine Clear Calc Drug Dose 83.0 ml/min Estimated GFR () 92.6 Estimated GFR (Non- 79.9 BUN/Creatinine Ratio 19.1 Random Glucose 89 mg/dl Calcium Level 10.3 mg/dl Test 07/04/17 04:15 White Blood Count 5.33 K/uL Red Blood Count 3.66 M/uL Hemoglobin 9.2 g/dL Hematocrit 30.3 % Mean Corpuscular Volume 82.8 fL Mean Corpuscular Hemoglobin 25.1 pg Mean Corpuscular Hemoglobin Concent 30.4 g/dl Platelet Count 407 K/uL Mean Platelet Volume 9.1 fL Neutrophils (%) (Auto) 37.1 % Lymphocytes (%) (Auto) 52.7 % Monocytes (%) (Auto) 7.5 % Eosinophils (%) (Auto) 2.1 % Basophils (%) (Auto) 0.4 % Neutrophils # (Auto) 1.98 K/uL Lymphocytes # (Auto) 2.81 K/uL Monocytes # (Auto) 0.40 K/uL Eosinophils # (Auto) 0.11 K/uL Basophils # (Auto) 0.02 K/uL RDW Standard Deviation 53.5 fL RDW Coefficient of Variation 17.5 % Immature Granulocyte % (Auto) 0.2 % Immature Granulocyte # (Auto) 0.01 K/uL Hypochromasia PRESENT Sodium Level 139 mmol/L Potassium Level 4.1 mmol/L Chloride Level 106 mmol/L Carbon Dioxide Level 25 mmol/L Anion Gap 8.0 mmol/L Blood Urea Nitrogen 19 mg/dl Creatinine 0.87 mg/dl Est Creatinine Clear Calc Drug Dose 84.0 ml/min Estimated GFR () 93.9 Estimated GFR (Non- 81.0 BUN/Creatinine Ratio 21.6 Random Glucose 109 mg/dl Calcium Level 10.3 mg/dl Phosphorus Level 4.3 mg/dl Assessment & Plan 42 y/o F w/ DM on insulin, ckd, hx colectomy in past for C diff, chronic suppurative hidradenitis, HTN, CKD, chronic metabolic acidosis w/ acute worsening 4x this year so far each requiring admission and 2 requiring acute dialysis. Acute on chronic metabolic acidosis with dyskalemia, (now resolved ) low phos no clear cause found; suspect multifactorial related to colectomy/diarrhea/ GI losses as well as dm --worsened by poor po intake but responding to IV meds and now transitioned to po meds she was borderline hyperchloremic on presentation; improved quickly on high dose po and IV bicarb -increase po bicarb today to 1300 mg bid -cont current K dose -recheck bmp, phos in AM, on , then q Mon/ x 3 wks as outpt -cont strict I/O; cont to hold diuretic and use prn only -recommend 24 hrs stability on po meds before d/c>reasonable for d/c today w/ close outpt f/u -f/u w/ Dr Everett or Kirstin Mckeon w/in 2-3 wks in [facility] appreciate consult; will follow with you. care coordinated w/ dr hoover
--- NOTE | 2017-07-05 07:41 | Discharge Summary ---
Discharge Summary Date of Service Jul 05, 2017. Discharge Summary Admission Date: Jun 30, 2017 at 18:11 Discharge Date: Jul 04, 2017 Discharge Disposition: Home Principal Diagnosis: severe metabolic acidosis OTHER ACUTE DIAGNOSES acute kidney injury hyponatremia nondisplaced fractures right 5th, 6th, 7th ribs . Secondary Diagnoses/Problems: Chronic and Resolved Medical Problems: (1) Diabetes mellitus type 1 Permanent Comment: history DKA Status: Chronic (2) Dyslipidemia Status: Chronic (3) GERD (gastroesophageal reflux disease) Status: Chronic (4) Hypertension Status: Chronic (5) Lumbar Disc Displacement Status: Chronic (6) Suppurative hidradenitis Status: Chronic Surgical Problems: (3) Status post cholecystectomy Permanent Comment: cholelithiasis Status: Chronic (4) Status post partial colectomy Permanent Comment: for C diff colitis Status: Chronic . Procedures: cardiac monitoring IV meds right subclavian central venous catheter venous duplex lower extremities . Consultations: [facility] Nephrology . Pending Studies/Follow-Up: basic metabolic profile to be drawn at [facility]. . Medication Reconciliation New Medications: Acetaminophen (Acetaminophen) 500 Mg Tab 1000 MG PO Q8 PRN for severe pain, #60 TAB No prescription necessary. Oxycodone HCl (Oxycodone HCl) 5 Mg Tab 5 MG PO Q6 PRN for severe pain, #12 TAB Continued Medications: Albuterol Hfa (Ventolin Hfa) 200 Puffs/87875 Mcg Aers 2 PUFFS INH Q4H PRN for SOB/Wheezing, #1 INHALER Amlodipine (Norvasc) 10 Mg Tab 10 MG PO DAILY, TAB Atorvastatin (Lipitor) 20 Mg Tab 20 MG PO DAILY, TAB Cholecalciferol (Vitamin D3) 1,000 Unit Tab 5000 INTER.UNIT PO DAILY for 90 Days, TAB 3 Refills Duloxetine Hcl (Cymbalta) 60 Mg Cap 60 MG PO QPM, CAP Esomeprazole Magnesium (Nexium) 40 Mg Capcr 40 MG PO QAM, CAP Fenofibrate (Tricor) 160 Mg Tab 160 MG PO DAILY, TAB Insulin Degludec (Tresiba Flextouch) 100 Unit/Ml Inj 0 SQ HS Dose will vary. Dose as of 07/04/17 = 30 units at bedtime. Insulin Lispro (Human) (Humalog Kwikpen) 100 Unit/Ml Inj UNITS SQ DIRECTED 16 units breakfast 20 units lunch 26 units dinner PLUS THE SLIDING SCALE Lisinopril (Lisinopril) 20 Mg Tab 10 MG PO DAILY Take 1/2 pill (10 mg) daily). [place]-3 Fatty Acids (Fish Oil) 1,000 Mg Cap 1000 MG PO BID Pregabalin (Lyrica) 50 Mg Cap 50 MG PO TID, #90 Propranolol Hcl (Propranolol Hcl Er) 120 Mg Cap 120 MG PO BID Sodium Bicarbonate (Sodium Bicarbonate) 650 Mg Tab 0 PO UD Dose may vary. New dose as of 07/04/17 = 650 mg twice a day. Discontinued Medications: Cephalexin Monohydrate (Keflex) 500 Mg Cap 500 MG PO QID Hydrochlorothiazide (Hctz) 25 Mg Tab 25 MG PO DAILY, TAB Admission Information HPI (per Admitting provider): Pt is 42 y/o F with past medical history DM, HTN, GERD, metabolic acidosis, hyperchloremia presented to ER with complaint of right breast pain. Patient reports couple days ago was at [facility] to have labs done and was checking in registration and had syncopal episode and fell. She had not eaten breakfast that morning and did take her insulin. Patient reports glucose was checked at that time and was 95. Patient states since fall has been having right-sided rib pain aggravated with rotation of torso, palpation and deep inspiration. Denies any shortness of breath. Patient admits to be using ibuprofen. Patient states yesterday started vomiting 3 episodes, today 2 episodes. This morning had 2 loose BMs. She also reports right breast tenderness. She reports history of right breast tenderness and then is found to be acidotic. Patient states when she was getting this breast tenderness she called her PCPs office and reported that she was getting "staph infection". Patient denies any noted skin discolorations, lesions or pustules. She was called in Keflex yesterday, patient states is taken 3-4 doses. She reports her blood sugars have been running 110-160. Denies fever/chills, diaphoresis, hematemesis, melena, hematochezia, ZULETA, dizziness, vision changes, neck pain, SOB, orthopnea, palpitations, cough, sore throat, choking, otalgia, rhinorrhea, abdominal pain, paresthesias, extremity edema, urinary symptoms. Recent history of hyperkalemia has been having lab work twice weekly with Dr. Everett. Patient's oral potassium was discontinued. Potassium was 5.9 on 06/26, 5.5 on 06/27. Potassium 4.7 today. Bicarb was 23 on 06/26/17. Creatinine 1.3 on 06/26/17. Patient with history of hospitalization 06/11/17 to 06/17/17 for gallstone pancreatitis, cholecystectomy, [place] Hospitalization 05/21/17 to 05/26/17 for sepsis syndrome no source infection identified, metabolic acidosis, [place], HTN emergency. Hospitalization 04/17/17-04/26/17 for DKA, metabolic acidosis, [place] I, acute hypoxic respiratory failure on ventilator, metabolic encephalopathy. . Physical Exam (per Admitting): General Appearance: no apparent distress, + obese Head: normocephalic, atraumatic Eyes: normal inspection, PERRL, EOMI, sclerae normal ENT: hearing grossly normal, pharynx normal, + pertinent finding (mucous membranes moist) Neck: supple, no JVD, trachea midline Respiratory/Chest: lungs clear, normal breath sounds, no respiratory distress, + pertinent finding (+right lateral mid rib tenderness to palpation, no crepitus noted. Right breast without erythema or edema, no palpable masses, no nipple discharge) Cardiovascular: regular rate, rhythm Abdomen/GI: normal bowel sounds, non tender, soft, + pertinent finding (+ healing laproscopic incisions to abdomen without surrounding erythema) Back: no CVA tenderness Extremities/Musculoskelatal: no calf tenderness, normal capillary refill, no pedal edema, normal range of motion, non-tender Neurologic/Psych: alert, normal mood/affect, oriented x 3 Skin: normal color, warm/dry Hospital Course METABOLIC ACIDOSIS Presented with marked metabolic acidosis. Seen in consultation by Nephrology. Metabolic acidosis thought to be secondary to combination of partial colectomy and decreased oral intake due to nausea. Metabolic parameters improved. Discharged on oral sodium bicarbonate. Follow serum chemistries as outpatient, initially every other day. ACUTE KIDNEY INJURY / CKD III History of chronic kidney disease stage III. Serum creatinine on admission was 1.69 and myriam to 1.75. Patient received intravenous fluids. Serum creatinine subsequently improved and creatinine on day of discharge was 0.87. Avoid potential nephrotoxins. Outpatient follow-up with Nephrology. HYPONATREMIA Serum sodium on admission was 130. Urine osmolality 435. Serum sodium day of discharge is 139. Consider discontinuation of SSRI if hyponatremia recurs. HYPOKALEMIA Serum sodium as low as 2.8. Received replacement. JAGRUTI was held, being resumed at time of discharge. Will DC KCl. Follow. MULTIPLE RIB FRACTURES X-rays showed nondisplaced fractures of right 5th, 6th, 7th ribs. Pain improved. Continue analgesics and incentive spirometry. ELEVATED D-DIMER D-dimer at time of admission was 790. Venous duplex lower extremity negative for DVT. CTA of chest and/or VQ scan not pursued due to low clinical suspicion for pulmonary embolism and acute kidney injury. LEUKOCYTOSIS White count of the time of admission was 14,180. No fever or apparent source of infection. Blood and urine cultures negative. BREAST PAIN Patient has been experiencing intermittent right breast discomfort for several months. Unable to perform diagnostic breast imaging as an inpatient at this facility. Outpatient follow-up with PCP recommended. HYPERTENSION Lisinopril and hydrochlorothiazide stopped at the time of admission due to acute kidney injury. Propranolol and amlodipine were continued. Resume lisinopril at time of discharge. Discontinue hydrochlorothiazide. GERD Continue esomeprazole. DM TYPE I Episode of DKA in April 2017. Hemoglobin A1c at that time was greater than 13. Blood sugars have been under better control since then. Hemoglobin during this hospital stay 6.6. Continue Tresiba and Humalog. Outpatient follow-up with Endocrinology. DYSLIPIDEMIA Continue atorvastatin and fenofibrate. VTE PROPHYLAXIS Received SQ heparin. Ambulating. DISPOSITION Discharge to home. Medical follow-up with Dr. Garsia. Nephrology follow-up with Dr. Everett. . Total time spent on discharge = 45 min. This includes examination of the patient, discharge planning, medication reconciliation, and communication with other providers. . Discharge Instructions Discharge Instructions Date of Service Jul 04, 2017. Admission Reason for Admission: metabolic acidosis, worsening kidney function, right rib fractures . Discharge Discharge Diagnosis / Problem: metabolic acidosis, worsening kidney function, right rib fractures Discharge Goals Goal(s): Decrease discomfort, Improve function, Improve disease control Activity Recommendations Activity Limitations: resume your previous activity . Instructions / Follow-Up Instructions / Follow-Up APPOINTMENTS: PRIMARY CARE Dr. Garsia- tomorrow as scheduled. NEPHROLOGY Dr. Everett Office will contact you with appointment. OTHER INSTRUCTIONS: Avoid anti-inflammatory medications like ibuprofen (Advil or Motrin) and naproxen (Aleve). They can cause kidney damage. May take Extra Strength Tylenol 1000 mg (2 pills) every 8 hrs as needed for pain. May take oxycodone 5 mg every 6 hrs as needed for severe pain. Can cause drowsiness. Keep away from children. Do breathing exercises several times a day until ribs heal. Ask Dr. Garsia to check your bone density to make certain that you don't have osteoporosis. Stop taking hydrochlorothiazide. Reduce sodium bicarbonate dose to 650 mg (1 pill) twice a day for now. Dose may be adjusted, depending on your lab results. Please have labs checked (basic metabolic profile) on , then every-other -day until otherwise instructed by Drs. Everett & Shayy. Your hemoglobin A1C level was 6.6. Good job! Reduce Tresiba dose to 30 units at bed time so your sugars don't drop too low after discharge from the hospital. Call your client success specialist if you sugars are running too high or too low. Talk to Dr. Garsia about your breast discomfort and see what he recommends. Seek medical attention if you have: * temperature above 101 * chest pain or trouble breathing * abdominal pain, nausea, vomiting * diarrhea, dark stools or bloody stools * any unanswered questions or concerns Call 911 if symptoms are severe. Call if you have any questions or problems. My cell # is [phone]. You can also reach a [facility] hospitalist on duty at [facility] 24 hours a day by calling [phone]. Please take good care of yourself. Lj Patel . Current Hospital Diet Patient's current hospital diet: Diabetes Type 2 Diet Discharge Diet Recommended Diet: AHA Diet (Heart Healthy), Diabetes Type 1 Diet Pending Studies Studies pending at discharge: no Laboratory Results Hemoglobin A1c Test 07/04/17 04:15 Range/Units Estimated Average Glucose 143 mg/dl Hemoglobin A1c 6.6 H 4.5-5.6 % Lipid Panel Test 06/16/17 07:05 Range/Units Triglycerides Level 263 H 0-150 mg/dl Cholesterol Level 194 0-200 mg/dl HDL Cholesterol 45 mg/dl Cholesterol/HDL Ratio 4.3 LDL Cholesterol, Calculated 96 mg/dl Work Instructions Return To Work: after follow-up Additional Instructions: Virginia Hernandez was absent from work since 06/30/17 due to illness. Return to work date to be determined after re-evaluation. Medical Emergencies . Who to Call and When: Medical Emergencies: If at any time you feel your situation is an emergency, please call 911 immediately. . Non-Emergent Contact Non-Emergency issues call your: Primary Care Provider, Hospital Doctor, Arranger Assembler . . "Provider Documentation" section prepared by Lj Patel. . [place] Drug Monitoring [place] Search Results: patient reviewed within database, no issues identified . Additional Copies To Gracie Lucas MD; Jamzin Everett DO; Wiliam Garsia M.D.
== END 2017-07-04 15:57 | disposition home or self-care (01) | DRG 641 ==
LOC: C.EDB 13:43 → CANRESERV 17:35 → ENRESERV 17:35 → C.MSICU 18:11 → EDBEDREQSVC 18:20 → ENRESERV 18:24 → C.MSICU 18:33 → C.2T 07-02 16:36
PROVIDERS: ADMIT Hospitalist; ATTEND Hospitalist
DX: E87.2 Acidosis (principal); N17.9 Acute kidney failure, unspecified; S22.41XA Multiple fractures of ribs, right side, initial encounter for closed fracture; E72.20 Disorder of urea cycle metabolism, unspecified; F17.200 Nicotine dependence, unspecified, uncomplicated; E86.0 Dehydration; N18.3 Chronic kidney disease, stage 3 (moderate); I12.9 Hypertensive chronic kidney disease with stage 1 through stage 4 chronic kidney disease, or unspecified chronic kidney disease; D72.829 Elevated white blood cell count, unspecified; E87.1 Hypo-osmolality and hyponatremia; E10.22 Type 1 diabetes mellitus with diabetic chronic kidney disease; N64.4 Mastodynia; E78.5 Hyperlipidemia, unspecified; F32.9 Major depressive disorder, single episode, unspecified; K21.9 Gastro-esophageal reflux disease without esophagitis; R19.7 Diarrhea, unspecified; E66.9 Obesity, unspecified; Z91.030 Bee allergy status; Z90.49 Acquired absence of other specified parts of digestive tract; Z87.01 Personal history of pneumonia (recurrent); Z68.31 Body mass index [BMI] 31.0-31.9, adult; Z93.2 Ileostomy status; Z79.4 Long term (current) use of insulin; W19.XXXA Unspecified fall, initial encounter

== ENCOUNTER 2017-07-11 12:26 | Observation (INO) | payer BC ==
[~2017-07-11] VITALS: Ht 160 cm; Wt 83.1 kg
[~2017-07-11 12:26] MED LIST changes: +ACET500T58 PO; +ATOR-54 PO; -ATOR10TA82 PO; -LISI-461 PO; +LSN20 PO; -OXYC-57 PO; +OXYC-609 PO; -POTA10CA28 PO
[2017-07-11] MEDS ORDERED: SODI325T9 PO (12:51)
[2017-07-11] MEDS ORDERED: INSU100I SQ ×3 (12:51)
[2017-07-11 13:07] LABS: BASO % 0.5 %; BASO ABS # 0.05 K/uL (0-0.2); EOS % 2.1 %; HEMATOCRIT 35.1 % (37-47); HEMOGLOBIN 11.2 g/dL (12.0-16.0); IG# 0.04 K/uL (0.00-0.02); LYMPH % 42.8 %; LYMPH ABS # 4.14 K/uL (1.2-3.4); MEAN CELL VOLUME 84.6 fL (80-100); MEAN CORPUSCULAR HGB CONC 31.9 g/dl (32-36); MEAN PLATELET VOLUME 9.2 fL (7.4-10.4); MONO % 7.3 %; MONO ABS # 0.71 K/uL (0.11-0.59); NEUT % 46.9 %; NEUT ABS # 4.53 K/uL (1.4-6.5); PLATELET COUNT 383 K/uL (130-400); RED CELL DISTRIBUTION WIDTH CV 17.6 % (11.5-14.5); RED CELL DISTRIBUTION WIDTH SD 54.4 fL (36.4-46.3); WHITE BLOOD COUNT 9.67 K/uL (4.8-10.8)
[2017-07-11 13:23] LABS: ALBUMIN 4.5 gm/dl (3.4-5.0); ALT/SGPT 15 U/L (12-78); AST/SGOT 8 U/L (15-37); BLOOD UREA NITROGEN 30 mg/dl (7-18); CARBON DIOXIDE 14 mmol/L (21-32); CREATININE 1.17 mg/dl (0.60-1.20); GLUCOSE 117 mg/dl (70-99); LIPASE 682 U/L (73-393); POTASSIUM 5.1 mmol/L (3.5-5.1); SODIUM 132 mmol/L (136-145)
[2017-07-11 13:25] LABS: ALKALINE PHOSPHATASE 85 U/L (45-117); TOTAL PROTEIN 8.9 gm/dl (6.4-8.2)
[2017-07-11] MEDS ORDERED: SODIUM CHLORIDE 0.9% 1000ML 1,000 ML IV STA (14:15)
[2017-07-11] MEDS ORDERED: SODIUM BICARBONATE 8.4% INJ 75 MEQ in SODIUM CHLORIDE 0.45% 1000ML 1,000 ML IV SCH (14:20)
[2017-07-11] MEDS ORDERED: GLUCOSE 40% GEL 15 GM TUBE PO PRN (16:00)
[2017-07-11] MEDS ORDERED: GLUCOSE 10 TABS/TUBE PO PRN (16:00)
[2017-07-11] MEDS ORDERED: GLUCAGON FOR INJ 1 MG VIAL SQ PRN (16:00)
[2017-07-11] MEDS: INSULIN ASPART 100 UNITS/ML 3 ML PEN SC SCH ×2 (16:00→20:23)
[2017-07-11] MEDS ORDERED: DEXTROSE 50% 50 ML SYR IV PRN (16:00)
[2017-07-11] MEDS ORDERED: OXYCODONE/ACETAMINOPHEN 5-325 TAB PO PRN (16:15)
[2017-07-11] MEDS ORDERED: ACETAMINOPHEN 500 MG TAB PO PRN (16:15)
[2017-07-11] MEDS ORDERED: IV FLUIDS COMPLETED PRN (16:15)
[2017-07-11] MEDS ORDERED: SODIUM CHLORIDE 0.9% 1000ML 1,000 ML IV SCH ×2 (16:30→18:00)
--- NOTE | 2017-07-11 17:07 | History and Physical ---
History & Physical Date & Time of Service: Jul 11, 2017 at 16:28 Chief Complaint: Abnormal Lab Results Primary Care Physician: Wiliam Garsia M.D. History of Present Illness Source: patient, clinic records, hospital records This is a 42yo F with h/o recurrent severe metabolic acidosis, DM I (DKA most recently May 2017), intermittent hypercalcemia and other medical problems listed below who presents with abnormal lab work per Dr. Everett. Patient is hyperkalemic at 6 and hypercalcemic at 12.4. Has been admitted multiple times in the past year for severe metabolic acidosis that is multifactorial in etiology. Admitted in Apr 2017 for DKA and C diff and required acute dialysis, in May 2017 with sepsis w/o source and severe metabolic acidosis requiring dialysis, in early June for gallstone pancreatitis s/p cholecystectomy and most recently from June 30- for metabolic acidosis 2/2 poor PO intake and h /o partial colectomy. Was discharged home on increased dose of sodium bicarb 650mg BID but has been taking 325mg BID. Patient feels fine currently, denying the nausea and vomiting she has experienced in the past when admitted for metabolic acidosis. Denies fever, chills, headache, lightheadedness, visual change, chest pain, palpitations, SOB , abdominal pain, dysuria, diarrhea, constipation, numbness/tingling in extremities or LE swelling. Has been taking all medications as prescribed. Glycemic control has significantly improved, with most recent A1c of 6.6. In the ED, patient was found to have a pH of 7.25, bicarb of 16, potassium of 5.1, no anion gap, calcium of 12. Sodium bicarb drip and normal saline bolus were administered. Past Medical/Surgical History Medical Problems: (1) Diabetes mellitus type 1 Permanent Comment: history DKA Status: Chronic (2) Dyslipidemia Status: Chronic (3) Fracture of rib of right side Status: Chronic (4) GERD (gastroesophageal reflux disease) Status: Chronic (5) Hypertension Status: Chronic (6) Hyponatremia Status: Chronic (7) Lumbar Disc Displacement Status: Chronic (8) Suppurative hidradenitis Status: Chronic Surgical Problems: (1) Hx laparoscopic cholecystectomy Status: Resolved (2) Hx of ileostomy Permanent Comment: 03/16/12 - laproscopic ileostomy - [facility] at [facility] Status: Resolved (3) Status post cholecystectomy Permanent Comment: cholelithiasis Status: Chronic (4) Status post partial colectomy Permanent Comment: for C diff colitis Status: Chronic Family History Diabetes mellitus Heart disease Social History Smoking Status: Current Every Day Smoker Drug Use: none Marital Status: Housing status: lives with significant other Occupational Status: employed Immunizations History of Influenza Vaccine: Unknown History of Tetanus Vaccine?: Unknown History of Pneumococcal: Unknown History of Hepatitis B Vaccine: Unknown Allergies Coded Allergies: BEE STING (Verified Allergy, Intermediate, RED, SHORT OF BREATH, 07/11/17) Home Medications Scheduled Amlodipine (Norvasc), 10 MG PO DAILY Atorvastatin (Lipitor), 20 MG PO DAILY Duloxetine Hcl (Cymbalta), 60 MG PO QPM Esomeprazole Magnesium (Nexium), 40 MG PO QAM Fenofibrate (Tricor), 160 MG PO DAILY Insulin Degludec (Tresiba Flextouch), 30 UNITS SQ HS Insulin Lispro (Human) (Humalog Kwikpen), UNITS SQ DIRECTED Insulin Lispro (Human) (Humalog), 16 UNITS SQ QDB Insulin Lispro (Human) (Humalog), 20 UNITS SQ QDL Insulin Lispro (Human) (Humalog), 26 UNITS SQ QDD Lisinopril (Lisinopril), 10 MG PO DAILY [place]-3 Fatty Acids (Fish Oil), 1,000 MG PO BID Pregabalin (Lyrica), 50 MG PO TID Propranolol Hcl (Propranolol Hcl Er), 120 MG PO BID Sodium Bicarbonate (Antacid) (Sodium Bicarbonate), 325 MG PO BID Scheduled PRN Acetaminophen (Acetaminophen), 1,000 MG PO Q8 PRN for severe pain Albuterol Hfa (Ventolin Hfa), 2 PUFFS INH Q4H PRN for SOB/Wheezing Oxycodone HCl (Oxycodone HCl), 5 MG PO Q6 PRN for severe pain Review of Systems Ten systems reviewed and negative except as noted in the HPI. Physical Exam Vital Signs Date Time Temp Pulse Resp B/P (MAP) Pulse Ox O2 Delivery O2 Flow Rate FiO2 07/11/17 16:05 70 20 135/72 100 Room Air 07/11/17 14:43 68 20 145/72 99 Room Air 07/11/17 13:30 75 18 133/78 98 Room Air 07/11/17 13:05 80 07/11/17 13:03 98 Room Air 07/11/17 12:29 36.6 77 20 147/103 100 Room Air General Appearance: WD/WN, no apparent distress Head: normocephalic, atraumatic Eyes: normal inspection, PERRL, sclerae normal ENT: normal ENT inspection, hearing grossly normal, pharynx normal (Moist mucous membranes) Neck: supple, thyroid normal, trachea midline Respiratory/Chest: chest non-tender, lungs clear, normal breath sounds, no respiratory distress, no accessory muscle use Cardiovascular: regular rate, rhythm, no murmur, normal peripheral pulses Abdomen/GI: non tender, soft, no organomegaly, + tenderness (Tenderness over R ribs) Back: normal inspection Extremities/Musculoskelatal: normal inspection, no calf tenderness, no pedal edema Neurologic/Psych: no motor/sensory deficits, alert, normal mood/affect, oriented x 3 Skin: normal color, warm/dry Diagnostics Laboratory Results Results Past 24 Hours Test 07/11/17 12:55 07/11/17 13:35 07/11/17 14:10 Range/Units White Blood Count 9.67 4.8-10.8 K/uL Red Blood Count 4.15 4.2-5.4 M/uL Hemoglobin 11.2 12.0-16.0 g/dL Hematocrit 35.1 37-47 % Mean Corpuscular Volume 84.6 80-100 fL Mean Corpuscular Hemoglobin 27.0 25-34 pg Mean Corpuscular Hemoglobin Concent 31.9 32-36 g/dl Platelet Count 383 130-400 K/uL Mean Platelet Volume 9.2 7.4-10.4 fL Neutrophils (%) (Auto) 46.9 % Lymphocytes (%) (Auto) 42.8 % Monocytes (%) (Auto) 7.3 % Eosinophils (%) (Auto) 2.1 % Basophils (%) (Auto) 0.5 % Neutrophils # (Auto) 4.53 1.4-6.5 K/uL Lymphocytes # (Auto) 4.14 1.2-3.4 K/uL Monocytes # (Auto) 0.71 0.11-0.59 K/uL Eosinophils # (Auto) 0.20 0-0.5 K/uL Basophils # (Auto) 0.05 0-0.2 K/uL RDW Standard Deviation 54.4 36.4-46.3 fL RDW Coefficient of Variation 17.6 11.5-14.5 % Immature Granulocyte % (Auto) 0.4 % Immature Granulocyte # (Auto) 0.04 0.00-0.02 K/uL Sodium Level 132 136-145 mmol/L Potassium Level 5.1 3.5-5.1 mmol/L Chloride Level 110 98-107 mmol/L Carbon Dioxide Level 14 21-32 mmol/L Anion Gap 8.0 3-11 mmol/L Blood Urea Nitrogen 30 7-18 mg/dl Creatinine 1.17 0.60-1.20 mg/dl Est Creatinine Clear Calc Drug Dose 61.8 ml/min Estimated GFR () 65.6 Estimated GFR (Non- 56.6 BUN/Creatinine Ratio 25.8 10-20 Random Glucose 117 70-99 mg/dl Lactic Acid Level 0.7 0.4-2.0 mmol/L Calcium Level 12.0 8.5-10.1 mg/dl Magnesium Level 1.9 1.8-2.4 mg/dl Total Bilirubin 0.3 0.2-1 mg/dl Direct Bilirubin < 0.1 0-0.2 mg/dl Aspartate Amino Transf (AST/SGOT) 8 15-37 U/L Alanine Aminotransferase (ALT/SGPT) 15 12-78 U/L Alkaline Phosphatase 85 45-117 U/L Total Protein 8.9 6.4-8.2 gm/dl Albumin 4.5 3.4-5.0 gm/dl Lipase 682 73-393 U/L Venous Blood pH 7.25 7.36-7.41 Venous Blood Partial Pressure CO2 35 38.0-50.0 mmHg Venous Blood Partial Pressure O2 31 mmHg Venous Blood HCO3 15 mmol/L Venous Blood Oxygen Saturation < 60.0 % Venous Blood Base Excess -11.2 mEq/L Urine Color YELLOW Urine Appearance CLEAR CLEAR Urine pH 6.0 4.5-7.5 Urine Specific [place] 1.026 1.000-1.030 Urine Protein 1+ NEG Urine Glucose (UA) NEG NEG Urine Ketones NEG NEG Urine Occult Blood NEG NEG Urine Nitrite NEG NEG Urine Bilirubin NEG NEG Urine Urobilinogen NEG NEG Urine Leukocyte Esterase NEG NEG Urine WBC (Auto) 1-5 0-5 /hpf Urine RBC (Auto) 0-4 0-4 /hpf Urine Hyaline Casts (Auto) 1-5 0-5 /lpf Urine Epithelial Cells (Auto) >30 0-5 /lpf Urine Bacteria (Auto) NEG NEG EKG Normal sinus rhythm. Normal ECG. When compared with ECG of 02-JUL-2017 07:53, QT has shortened. Confirmed by ALEXYS SCHMIDT MD ([id number]) on 07/11/2017 4:15:41 PM. Impression Assessment and Plan This is a 42yo F with h/o recurrent severe metabolic acidosis, DM I (DKA most recently May 2017), intermittent hypercalcemia and other medical problems listed below who presents with abnormal lab work per Dr. Everett. Recurrent metabolic acidosis: -H/o multifactorial etiology of h/o partial colectomy and poor PO intake -Asymptomatic; pH of 7.25, bicarb of 16, potassium of 5.1, no anion gap, calcium of 12. -Sodium bicarb drip and normal saline bolus were administered in ED, per Dr. Everett -However, denies nausea, vomiting this admission. Normal Appetite, no diarrhea -Has not been taking increased dose of sodium bicarb at home -Discussed with Dr. Everett -Continue 1/2 NSS with 75 meq bicarb at 125 ml/hr -Give 2nd 1L NSS bolus, then continue with NSS at 125 ml/hr -Repeat VBG, CMP at 1800 -Monitor on telemetry DM I: controlled -Last episode of DKA in Apr 2017 -A1c improved to 6.6 in June 2017 (formerly 13) -Cont Tresiba 15U BID -SSI while in patient -BSG checks AC HS Hypercalcemia: -Ca of 12 today (10 on previous admission) -History of intermittent hypercalcemia -IV fluid resuscitation -Nephro consulted Hyponatremia: -Intermittent hyponatremia in the past -Na 132 today -IV fluids -Monitor H/o rib fractures: -Fx of R 5,6,7 -rodding machine tender -Tylenol PRN pain CKD III: -Cr at baseline -Continue to monitor HTN: -Normotensive -Continue amlodipine,propranolol and lisinopril HLD: -Cont statin GERD: -Cont PPI DVT Ppx: SQ heparin Code status: FULL PCP: [place] Dispo: Admit to telemetry. Plan to return home once medically stable. Patient seen in collaboration with Dr. Amaro. Please see addendum. Attending Note: Patient is a 42 yr female presents with abnormal labs suggestive of Non anion gap, Hyperchloremic metabolic acidosis, Hypercalcemia, Hyponatremia. Patient was sent to [facility] for further management by her Consumer Lender. Patient was hospitalized multiple times with metabolic acidosis and was previously worked up. She states no clear reason could be identified. Patient had H/O partial colectomy which could be contributing. She is asymptomatic and has negative ROS. Her condition was discussed with Nephrology and patient was started in Bicarbonate drip. Physical Exam: Vitals signs as noted above General Appearance:Moderately built and nourished, no apparent distress Head: normocephalic, Atraumatic Eyes: normal inspection, EOMI, PERRL Neck: supple, Trachea midline Respiratory/Chest: Normal breath sounds, CTA Cardiovascular: S1, S2, No murmur Abdomen/GI:Soft, Non tender, Bowel sounds present Extremities/Musculoskelatal:normal inspection, no edema Neurologic/Psych:AAOX3, grossly no focal neurological deficits Skin:normal color,warm. Multiple post surgical scars noted on back, abdomen and neck Assessment and Plan: Recurrent Non anion gap, Hyperchloremic metabolic acidosis H/O partial colectomy could be contributing Lactate levels normal No signs of DKA Continue Bicarbonate drip Monitor PRP Nephrology Consulted Hypercalcemia: Previously worked up for hypercalcemia Continue IV fluids Check Ionized Calcium Consider Bisphosphonates if no improvement with IV fluids I personally reviewed the record. Patient is interviewed and examined at bedside. Patient's care is coordinated with Sherrell Porter PA-C. Please refer to the documentation above for details of patient's presentation and for discussion of other issues. Resuscitation Status VTE Prophylaxis Will order VTE Prophylaxis: Yes
[2017-07-11 19:11] LABS: CREATININE 1.07 mg/dl (0.60-1.20); POTASSIUM 4.9 mmol/L (3.5-5.1)
[2017-07-11 19:14] LABS: TOTAL PROTEIN 7.6 gm/dl (6.4-8.2)
--- NOTE | 2017-07-11 19:38 | EMERGENCY ROOM VISIT NOTE ---
History Report prepared by Landy: Lucas Wang Under the Supervision of: Dr. Fernando Todd D.O. First contact with patient: 12:34 Chief Complaint: ABNORMAL LABS Stated Complaint: ABNORMAL LAB RESULTS History of Present Illness The patient is a 42 year old female who presents to the Emergency Room after referral from Dr. Everett, her PCP, with concerns over findings in her lab work from two days ago. The patient states that Dr. Everett's office called her and told her that her Potassium and Calcium levels were very high yesterday and she needed to come to the ED immediately. She was taking oral Potassium, but stopped over this medication over a week ago. The patient has a history of recurrent DKA and Metabolic Acidosis and her PCP has been drawing serial laboratory studies to try to find a source of these conditions. She is a diabetic, and her sugars are normally well controlled. She denies any symptoms such as headache, change in vision, fevers, chest pain, shortness of breath, nausea, vomiting, diarrhea, pain with urination, and melena. Review of laboratory studies shows that she had a creatinine of 1.2, potassium of 6, and a bicarbonate level of 16. She is taking 650 mg of Bicarbonate per day. Source of History: patient Onset: Two days ago Symptom Intensity: Potassium of 6 Quality: other (abnormal labs) Timing: constant Associated Symptoms: No chest pain, No SOB, No nausea, No vomiting Review of Systems See HPI for pertinent positives & negatives. A total of 10 systems reviewed and were otherwise negative. Past Medical & Surgical Medical Problems: (1) Diabetes mellitus type 1 (2) Dyslipidemia (3) Fracture of rib of right side (4) GERD (gastroesophageal reflux disease) (5) Hypertension (6) Hyponatremia (7) Lumbar Disc Displacement (8) Suppurative hidradenitis Surgical Problems: (1) Hx laparoscopic cholecystectomy (2) Hx of ileostomy (3) Status post cholecystectomy (4) Status post partial colectomy Family History Diabetes mellitus Heart disease Social History Smoking Status: Current Every Day Smoker Alcohol Use: none Drug Use: none Marital Status: Housing Status: lives with family Occupation Status: employed Current/Historical Medications Scheduled Amlodipine (Norvasc), 10 MG PO DAILY Atorvastatin (Lipitor), 20 MG PO DAILY Duloxetine Hcl (Cymbalta), 60 MG PO QPM Esomeprazole Magnesium (Nexium), 40 MG PO QAM Fenofibrate (Tricor), 160 MG PO DAILY Insulin Degludec (Tresiba Flextouch), 30 UNITS SQ HS Insulin Lispro (Human) (Humalog Kwikpen), UNITS SQ DIRECTED Insulin Lispro (Human) (Humalog), 16 UNITS SQ QDB Insulin Lispro (Human) (Humalog), 20 UNITS SQ QDL Insulin Lispro (Human) (Humalog), 26 UNITS SQ QDD Lisinopril (Lisinopril), 10 MG PO DAILY [place]-3 Fatty Acids (Fish Oil), 1,000 MG PO BID Pregabalin (Lyrica), 50 MG PO TID Propranolol Hcl (Propranolol Hcl Er), 120 MG PO BID Sodium Bicarbonate (Antacid) (Sodium Bicarbonate), 325 MG PO BID Scheduled PRN Acetaminophen (Acetaminophen), 1,000 MG PO Q8 PRN for severe pain Albuterol Hfa (Ventolin Hfa), 2 PUFFS INH Q4H PRN for SOB/Wheezing Oxycodone HCl (Oxycodone HCl), 5 MG PO Q6 PRN for severe pain Allergies Coded Allergies: BEE STING (Verified Allergy, Intermediate, RED, SHORT OF BREATH, 07/11/17) Physical Exam Vital Signs Date Time Temp Pulse Resp B/P (MAP) Pulse Ox O2 Delivery O2 Flow Rate FiO2 07/11/17 14:43 68 20 145/72 99 Room Air 07/11/17 13:30 75 18 133/78 98 Room Air 07/11/17 13:05 80 07/11/17 13:03 98 Room Air 07/11/17 12:29 36.6 77 20 147/103 100 Room Air Physical Exam GENERAL: Sitting up in bed, alert, well appearing, well nourished, no distress, non-toxic EYE EXAM: normal conjunctiva. PERRL and EOM's grossly intact. OROPHARYNX: no exudate, no erythema, lips, buccal mucosa, and tongue normal and mucous membranes are moist NECK: supple, no nuchal rigidity, no adenopathy, non-tender LUNGS: Clear to auscultation. Normal chest wall mechanics HEART: no murmurs, S1 normal and S2 normal ABDOMEN: abdomen soft, non-tender, normo-active bowel sounds, no masses, no rebound or guarding. SKIN: no rashes and no bruising UPPER EXTREMITIES: upper extremities are grossly normal. LOWER EXTREMITIES: No pitting edema. NEURO EXAM: Normal sensorium, cranial nerves II-XII grossly intact, normal speech, no gross weakness of arms, no gross weakness of legs. Medical Decision & Procedures Laboratory Results 07/11/17 12:55 Red Blood Count 4.15, Mean Corpuscular Volume 84.6, Mean Corpuscular Hemoglobin 27.0, Mean Corpuscular Hemoglobin Concent 31.9, Mean Platelet Volume 9.2, Neutrophils (%) (Auto) 46.9, Lymphocytes (%) (Auto) 42.8, Monocytes (%) (Auto) 7.3, Eosinophils (%) (Auto) 2.1, Basophils (%) (Auto) 0.5, Neutrophils # (Auto) 4.53, Lymphocytes # (Auto) 4.14, Monocytes # (Auto) 0.71, Eosinophils # (Auto) 0.20, Basophils # (Auto) 0.05 Test 07/11/17 12:55 07/11/17 14:10 White Blood Count 9.67 K/uL (4.8-10.8) Red Blood Count 4.15 M/uL (4.2-5.4) Hemoglobin 11.2 g/dL (12.0-16.0) Hematocrit 35.1 % (37-47) Mean Corpuscular Volume 84.6 fL (80-100) Mean Corpuscular Hemoglobin 27.0 pg (25-34) Mean Corpuscular Hemoglobin Concent 31.9 g/dl (32-36) Platelet Count 383 K/uL (130-400) Mean Platelet Volume 9.2 fL (7.4-10.4) Neutrophils (%) (Auto) 46.9 % Lymphocytes (%) (Auto) 42.8 % Monocytes (%) (Auto) 7.3 % Eosinophils (%) (Auto) 2.1 % Basophils (%) (Auto) 0.5 % Neutrophils # (Auto) 4.53 K/uL (1.4-6.5) Lymphocytes # (Auto) 4.14 K/uL (1.2-3.4) Monocytes # (Auto) 0.71 K/uL (0.11-0.59) Eosinophils # (Auto) 0.20 K/uL (0-0.5) Basophils # (Auto) 0.05 K/uL (0-0.2) RDW Standard Deviation 54.4 fL (36.4-46.3) RDW Coefficient of Variation 17.6 % (11.5-14.5) Immature Granulocyte % (Auto) 0.4 % Immature Granulocyte # (Auto) 0.04 K/uL (0.00-0.02) Lactic Acid Level 0.7 mmol/L (0.4-2.0) Magnesium Level 1.9 mg/dl (1.8-2.4) Direct Bilirubin < 0.1 mg/dl (0-0.2) Lipase 682 U/L (73-393) Urine Color YELLOW Urine Appearance CLEAR (CLEAR) Urine pH 6.0 (4.5-7.5) Urine Specific [place] 1.026 (1.000-1.030) Urine Protein 1+ (NEG) Urine Glucose (UA) NEG (NEG) Urine Ketones NEG (NEG) Urine Occult Blood NEG (NEG) Urine Nitrite NEG (NEG) Urine Bilirubin NEG (NEG) Urine Urobilinogen NEG (NEG) Urine Leukocyte Esterase NEG (NEG) Urine WBC (Auto) 1-5 /hpf (0-5) Urine RBC (Auto) 0-4 /hpf (0-4) Urine Hyaline Casts (Auto) 1-5 /lpf (0-5) Urine Epithelial Cells (Auto) >30 /lpf (0-5) Urine Bacteria (Auto) NEG (NEG) Laboratory results per my review. Medications Administered Medications (Trade) Dose Ordered Sig/Yudy Route Start Time Stop Time Status Last Admin Dose Admin Sodium Chloride 1,000 ml @ 999 mls/hr Q1H1M STAT IV 07/11/17 14:15 07/11/17 15:15 DC 07/11/17 14:43 999 MLS/HR Sodium Bicarbonate 75 meq/Sodium Chloride 1,075 ml @ 125 mls/hr Q8H36M IV 07/11/17 14:20 07/11/17 22:55 07/11/17 16:57 125 MLS/HR ECG Per My Interpretation Indication: toxicologic (abnormal laboratory findings) Rate (beats per minute): 77 Rhythm: sinus rhythm Findings: other (Normal axis, no JUAN/STD) ED Course ED COURSE: Vital signs were reviewed and showed hypertensive situationally. The patients medical record was reviewed The above diagnostic studies were performed and reviewed. ED treatments and interventions as stated above. 1236: The patient was evaluated in room C11B. A complete history and physical examination was performed. 1415: Ordered Sodium Chloride 1000 mL @ 999 mL/hr IV. 1436: I discussed the case with Dr. Marguerite Luz's PCP. He suggests starting a bicarbonate drip and admitting to medicine. 1451: I discussed the case with Sherrell Monteiro PA-C. She will evaluate the patient for further treatment. []: Upon reevaluation, the patient is [].I discussed my findings with the [ patient] and [] understands and agrees with the treatment plan. Based on the patients age, coexisting illnesses, exam and lab findings the decision to treat as an [inpatient][outpatient] was made. The patient remained stable while under my care. [The patient appeared well at the time of discharge.] [The patient will be evaluated for further management.] Medical Decision Differential Diagnosis includes but is not limited to dehydration, stroke, anemia, hypoglycemia, hyponatremia, hypernatremia, urinary tract infection, pneumonia, bronchitis, sepsis, gastroenteritis, additional abdominal pathology, metabolic abnormalities and infections. Patient is a 42-year-old female who presents the ER referred in by nephrology for abnormal labs. She is a history of metabolic acidosis was referred in for hyperkalemia along with hypercalcemia. CBC was unremarkable. BMP with a bicarb of 14. Creatinine 1.1. Potassium was only 5.1. Calcium is 12. Lipase was 62. PH is 7.25. UA was negative. Discussed with nephrology following blood work who recommends bicarb drip and observation. Patient was given a bolus normal saline and admitted to internal medicine for further workup. Medication Reconcilliation Current Medication List: was personally reviewed by me Blood Pressure Screening Patient's blood pressure: Elevated blood pressure Blood pressure disposition: Elevated BP felt to be situational Consults Time Called: 1432 Consulting Physician: Dr. Marguerite Luz's PCP Returned Call: 1436 I discussed the case with Dr. Marguerite Luz's PCP. He suggests starting a bicarbonate drip and admitting to medicine. Additional Consults: Time Called: 1446 Consulted Physician: Sherrell Monteiro PA-C Returned Call: [phone] Additional Comments: I discussed the case with Sherrell YUENC. She will evaluate the patient for further treatment. Impression Primary Impression: Metabolic acidosis Additional Impression: Hypercalcemia Scribe Attestation The scribe's documentation has been prepared under my direction and personally reviewed by me in its entirety. I confirm that the note above accurately reflects all work, treatment, procedures, and medical decision making performed by me. Departure Information Dispostion Being Evaluated By Hospitalist Referrals Wiliam Garsia M.D. (PCP) Patient Instructions My [facility] Problem Qualifiers
[2017-07-11 19:50] VITALS: BP 140/85; PULSE 64; TEMP 36.7; O2SAT 98; Ht 160 cm; Wt 83.1 kg
[2017-07-11] MEDS: PROPRANOLOL HCL 60 MG LA CAP PO SCH (20:11)
[2017-07-11] MEDS: SODIUM BICARBONATE 650 MG TAB PO SCH (20:12)
[2017-07-11] MEDS: DULOXETINE HCL 60 MG CAP PO SCH (20:12)
[2017-07-11] MEDS: PREGABALIN 50 MG CAP PO SCH (20:17)
[2017-07-11] MEDS: INSULIN GLARGINE SOLOSTAR 100 UNITS/ML 3 ML PEN SC SCH (20:19)
[2017-07-11] MEDS: HEPARIN SOD 5000 UNIT/0.5 ML CARP SQ SCH (20:23)
[2017-07-11] MEDS ORDERED: INSULIN GLARGINE SOLOSTAR 100 UNITS/ML 3 ML PEN SC SCH (21:00)
[2017-07-12] VITALS (7 sets, daily range): BP systolic 100–159; BP diastolic 55–78; PULSE 64–70; TEMP 36.5–36.9; O2SAT 96–99
[2017-07-12] MEDS: SODIUM BICARBONATE 8.4% INJ 75 MEQ in SODIUM CHLORIDE 0.45% 1000ML 1,000 ML IV SCH ×3 (01:48→18:21)
[2017-07-12] MEDS: HEPARIN SOD 5000 UNIT/0.5 ML CARP SQ SCH ×3 (05:25→21:02)
[2017-07-12 06:12] LABS: HEMATOCRIT 30.1 % (37-47); HEMOGLOBIN 9.4 g/dL (12.0-16.0); MEAN CELL VOLUME 84.3 fL (80-100); MEAN CORPUSCULAR HEMOGLOBIN 26.3 pg (25-34); MEAN CORPUSCULAR HGB CONC 31.2 g/dl (32-36); MEAN PLATELET VOLUME 9.2 fL (7.4-10.4); PLATELET COUNT 309 K/uL (130-400); RED CELL DISTRIBUTION WIDTH CV 17.6 % (11.5-14.5); RED CELL DISTRIBUTION WIDTH SD 54.5 fL (36.4-46.3); WHITE BLOOD COUNT 7.21 K/uL (4.8-10.8)
[2017-07-12 06:53] LABS: ALBUMIN 3.6 gm/dl (3.4-5.0); CALCIUM 10.1 mg/dl (8.5-10.1); CREATININE 0.99 mg/dl (0.60-1.20); POTASSIUM 4.5 mmol/L (3.5-5.1)
[2017-07-12 06:56] LABS: PHOSPHORUS 2.9 mg/dl (2.5-4.9)
[2017-07-12] MEDS: INSULIN GLARGINE SOLOSTAR 100 UNITS/ML 3 ML PEN SC SCH ×2 (08:15→20:56)
[2017-07-12] MEDS: ATORVASTATIN 20 MG TAB PO SCH (08:17)
[2017-07-12] MEDS: AMLODIPINE BESYLATE 5 MG TAB PO SCH (08:17)
[2017-07-12] MEDS: PANTOprazole SOD 40 MG TAB PO SCH (08:17)
[2017-07-12] MEDS: LISINOPRIL 10 MG TAB PO SCH (08:17)
[2017-07-12] MEDS: SODIUM BICARBONATE 650 MG TAB PO SCH ×3 (08:17→20:57)
[2017-07-12] MEDS: PROPRANOLOL HCL 60 MG LA CAP PO SCH ×2 (08:17→20:58)
[2017-07-12] MEDS: PREGABALIN 50 MG CAP PO SCH ×3 (08:25→20:59)
[2017-07-12] MEDS: INSULIN ASPART 100 UNITS/ML 3 ML PEN SC SCH ×4 (08:25→20:56)
--- NOTE | 2017-07-12 08:59 | NEPHROLOGY CONSULTATION ---
DATE OF CONSULTATION: 07/12/2017 ATTENDING OF RECORD: Varghese Vines MD. REASON FOR CONSULTATION: Hypercalcemia and metabolic acidosis. HISTORY OF PRESENT ILLNESS: This is a 42-year-old female who has had recurrent hospitalizations for significant metabolic acidosis of unclear etiology. The patient is on oral sodium bicarbonate tablets at home. Does have diabetes; however, is under much better control compared to about 6 months ago. The patient has required dialysis for her significant metabolic acidosis and was intubated during several of these admissions. The patient was thought to be taking 650 mg of sodium bicarbonate twice a day, but was only taking 325 twice a day. Outpatient labs showed a potassium level of 6 and worsening acidosis and elevated calcium, sent over to the Emergency Room for further evaluation. Potassium level was better at 5.1; however, her calcium levels were elevated and bicarbonate continued to be low. Brought in and given IV fluids of normal saline initially and then switched over to half normal saline with 75 mEq of bicarbonate to help with the metabolic acidosis. The patient states she feels very good. No significant diarrhea, although does suffer from chronic loose stools and not describing any ill effects from the high calcium. The patient though admits that she does not drink much water. PAST MEDICAL AND SURGICAL HISTORY: CKD stage III-IV, hypercalcemia, recurrent metabolic acidosis, type 1 diabetes, history of C. diff in the past, hypertension, ileostomy in 2011, cholecystectomy, partial colectomy for C. diff colitis. FAMILY HISTORY: Significant for diabetes. SOCIAL HISTORY: Active smoker. No drugs, no alcohol. Lives with at home. CURRENT MEDICATIONS: Norvasc 10 mg a day, Lipitor 20 mg a day, lisinopril 10 mg a day, Protonix 40 mg a day, half NS with 75 mEq of bicarbonate at 125 mL an hour, heparin 5,000 units subQ q. 8, Cymbalta 60 mg at night, Lyrica 50 mg p.o. t.i.d., propranolol 20 mg p.o. b.i.d., sodium bicarbonate 325 p.o. b.i.d. REVIEW OF SYSTEMS: No headaches, no blurry vision. No chest pain or shortness of breath. No nausea, vomiting, no diarrhea or constipation, although does suffer from chronic loose stools. No dysuria or hematuria. No lightheadedness. All other review of systems otherwise negative. The patient feels relatively good. PHYSICAL EXAMINATION: VITAL SIGNS: Temperature 36.6, pulse 67, respiratory rate 16, blood pressure is 159/78, previous one 121/70. GENERAL: Awake, alert, oriented x3. EYES: No scleral icterus. ENT: Moist mucous membranes. NECK: Supple. PULMONARY: Clear to auscultation. CARDIAC: Regular rate and rhythm. ABDOMEN: Bowel sounds positive, soft, nontender, nondistended. EXTREMITIES: No clubbing, cyanosis or edema. NEUROLOGICALLY: Nonfocal. DERMATOLOGIC: No rash or ulcers noted. LABORATORY DATA: White count 7, H&H 9.4 and 30, platelet counts 309. UA is bland with a specific gravity of 1.026, 1+ protein, pH of 6, greater than 30 epithelial cells. VBG shows a pH of 7.23, pCO2 of 36, pO2 of 30 and bicarbonate of 14. ASSESSMENT AND PLAN: 1. Chronic kidney disease. The patient's creatinine does tend to vary, was in the 2s during previous hospitalizations, has been much improved and is now down to 0.99. 2. Hypercalcemia. The patient admits to not taking any Tums or vitamin D supplements. Feel the hypercalcemia may be related to recurrent volume depletion. Would like to check a vitamin D which is pending. Check a PTH, SPEP, JAGRUTI level. Appears to be improving through IV fluids. Calcium level is 10.1 though ionized calcium is still elevated at 1.47. Albumin and total protein ratio is not significantly elevated and so feel unlikely to have multiple myeloma at this time; however, will check an SPEP, PTH, PTHrP and an JAGRUTI level. The patient could have an underlying lymphoma. Spot rechecking JAGRUTI level at this time. 3. Recurrent metabolic acidosis of unclear etiology, still feel it may be gastrointestinal related. The patient's outpatient sodium bicarbonate tablets were ineffective dose and would like to significantly increase the dose while here and continue to educate the patient on taking the appropriate dose of medications. We will continue to work on the etiology for the recurrent metabolic acidosis. Appreciate consultation. SHAUNA
--- NOTE | 2017-07-12 17:07 | Progress Note ---
Medicine Progress Note Date & Time of Visit: Jul 12, 2017 at 17:03. Subjective Seen sitting up in bed comfortable States she feels fine overall Denies dizziness, nausea, weakness, cramps No shortness of breath chest pain No other symptoms Objective Last 8 Hrs Date Time Temp Pulse Resp B/P (MAP) Pulse Ox O2 Delivery O2 Flow Rate FiO2 07/12/17 16:00 Room Air 07/12/17 15:17 36.8 70 16 100/55 (70) 97 Room Air 07/12/17 12:15 Room Air 07/12/17 11:37 36.9 70 16 125/67 (86) 98 Physical Exam: General- ad oriented oriented 3 not in distress speaking sentences ult Head- atraumatic Eyes- PERRL, EOMI, anicteric ENT- oropharynx clear Neck- supple, no JVD, no adenopathy, no thyromegaly Lungs- clear to auscultation bilaterally Heart- regular rhythm; no murmur, normal rate Abdomen- normal bowel sounds, soft, nontender, no masses or hepatosplenomegaly Extremities- no pretibial edema, no calf tenderness; peripheral pulses intact Neuro- alert, oriented x 3; no gross focal neuro deficits Skin- warm & dry Laboratory Results: Last 24 Hours Test 07/11/17 18:33 07/11/17 18:59 07/12/17 05:34 07/12/17 07:26 Venous Blood pH 7.23 Venous Blood Partial Pressure CO2 36 mmHg Venous Blood Partial Pressure O2 30 mmHg Venous Blood HCO3 14 mmol/L Venous Blood Oxygen Saturation < 60.0 % Venous Blood Base Excess -12.3 mEq/L Sodium Level 136 mmol/L 136 mmol/L Potassium Level 4.9 mmol/L 4.5 mmol/L Chloride Level 113 mmol/L 112 mmol/L Carbon Dioxide Level 15 mmol/L 14 mmol/L Anion Gap 8.0 mmol/L 10.0 mmol/L Blood Urea Nitrogen 26 mg/dl 25 mg/dl Creatinine 1.07 mg/dl 0.99 mg/dl Est Creatinine Clear Calc Drug Dose 67.5 ml/min 74.1 ml/min Estimated GFR () 73.1 80.3 Estimated GFR (Non- 63.1 69.3 BUN/Creatinine Ratio 24.5 25.2 Random Glucose 94 mg/dl 98 mg/dl Calcium Level 11.0 mg/dl 10.1 mg/dl Total Bilirubin 0.3 mg/dl 0.3 mg/dl Aspartate Amino Transf (AST/SGOT) 8 U/L 9 U/L Alanine Aminotransferase (ALT/SGPT) 13 U/L 15 U/L Alkaline Phosphatase 76 U/L 66 U/L Total Protein 7.6 gm/dl 7.0 gm/dl Albumin 4.0 gm/dl 3.6 gm/dl Globulin 3.6 gm/dl 3.4 gm/dl Albumin/Globulin Ratio 1.1 1.1 Bedside Glucose 101 mg/dl 107 mg/dl White Blood Count 7.21 K/uL Red Blood Count 3.57 M/uL Hemoglobin 9.4 g/dL Hematocrit 30.1 % Mean Corpuscular Volume 84.3 fL Mean Corpuscular Hemoglobin 26.3 pg Mean Corpuscular Hemoglobin Concent 31.2 g/dl RDW Standard Deviation 54.5 fL RDW Coefficient of Variation 17.6 % Platelet Count 309 K/uL Mean Platelet Volume 9.2 fL Ionized Calcium 1.47 mmol/l Phosphorus Level 2.9 mg/dl Magnesium Level 1.7 mg/dl 25-Hydroxy Vitamin D Total 24.6 ng/ml Test 07/12/17 09:04 07/12/17 11:32 07/12/17 16:10 Parathyroid Hormone (Intact) 23.0 pg/mL Bedside Glucose 114 mg/dl 111 mg/dl Assessment & Plan This is a 42yo F with h/o recurrent severe metabolic acidosis, DM I (DKA most recently May 2017), intermittent hypercalcemia and other medical problems listed below who presents with abnormal lab work per Dr. Everett. Recurrent metabolic acidosis: -H/o multifactorial etiology of h/o partial colectomy and poor PO intake -Asymptomatic; pH of 7.25, bicarb of 16, potassium of 5.1, no anion gap, calcium of 12. -Sodium bicarb drip and normal saline bolus were administered in ED, per Dr. Everett -Has not been taking increased dose of sodium bicarb at home Bicarb level 14 Continue bicarb drip Appreciate nephrology service recommendations Monitor Hypercalcemia: -Ca of 12 on admission Calcium level improved to 11 On IV fluids Serologic workup in progress including SPEP, PTH, PTH RP, JAGRUTI level DM I: controlled -Last episode of DKA in Apr 2017 -A1c improved to 6.6 in June 2017 (formerly 13) -Cont Tresiba 15U BID -SSI while in patient -BSG checks AC HS H/o rib fractures: -Fx of R 5,6,7 Improving -Tylenol PRN pain CKD III: -Cr at baseline -Continue to monitor HTN: -Normotensive -Continue amlodipine,propranolol and lisinopril HLD: -Cont statin GERD: -Cont PPI DVT Ppx: SQ heparin Code status: FULL PCP: Ady Dispo: Anticipate discharge to home when medically stable and cleared by nephrology Current Inpatient Medications: Current Inpatient Medications Medications (Trade) Dose Ordered Sig/Yudy Route Start Time Stop Time Status Last Admin Dose Admin Heparin Sodium (Porcine) (Heparin Sq 5000 Unit/0.5ml) 5,000 unit Q8 SQ 07/11/17 22:00 08/10/17 21:59 07/12/17 14:08 5,000 UNIT Insulin Aspart (novoLOG ASPART) SLIDING SCALE If C... ACHS SC 07/11/17 16:00 08/10/17 15:59 07/12/17 12:12 4 UNITS Glucose (Glucose 40% Gel) 15-30 GRAMS 15 GRAMS... UD PRN PO 07/11/17 16:00 08/10/17 15:59 Glucose (Glucose Chew Tab) 4-8 Tablets 4 Tabl... UD PRN PO 07/11/17 16:00 08/10/17 15:59 Dextrose (Dextrose 50% 50ML Syringe) 25-50ML OF 50% DW IV FOR... UD PRN IV 07/11/17 16:00 08/10/17 15:59 Glucagon (Glucagon Inj) 1 mg UD PRN SQ 07/11/17 16:00 08/10/17 15:59 Sodium Bicarbonate 75 meq/Sodium Chloride 1,075 ml @ 125 mls/hr Q8H36M IV 07/12/17 01:30 08/11/17 01:29 07/12/17 09:49 125 MLS/HR Insulin Glargine (Lantus Solostar Pen) For BSG <120, give 0 un... Q12 SC 07/11/17 21:00 08/10/17 20:59 Miscellaneous (Iv Fluids Completed) 1 ea PRN PRN N/A 07/11/17 16:15 4/3/19 16:14 Acetaminophen (Tylenol Tab) 1,000 mg Q8 PRN PO 07/11/17 16:15 08/10/17 16:14 Amlodipine Besylate (Norvasc Tab) 10 mg DAILY PO 07/12/17 09:00 08/11/17 08:59 07/12/17 08:17 10 MG Atorvastatin Calcium (Lipitor Tab) 20 mg DAILY PO 07/12/17 09:00 08/11/17 08:59 07/12/17 08:17 20 MG Duloxetine HCl (Cymbalta Cap) 60 mg QPM PO 07/11/17 21:00 08/10/17 20:59 07/11/17 20:12 60 MG Lisinopril (Zestril Tab) 10 mg DAILY PO 07/12/17 09:00 08/11/17 08:59 07/12/17 08:17 10 MG Pregabalin (Lyrica Cap) 50 mg TID PO 07/11/17 21:00 08/10/17 20:59 07/12/17 14:03 50 MG Miscellaneous Information (Order Awaiting Action) 1 ea QS N/A 07/12/17 00:00 08/11/17 00:00 Propranolol HCl (Inderal La Cap) 120 mg BID PO 07/11/17 21:00 08/10/17 20:59 07/12/17 08:17 120 MG Pantoprazole Sodium (Protonix Tab) 40 mg QAM PO 07/12/17 09:00 08/11/17 08:59 07/12/17 08:17 40 MG Oxycodone/ Acetaminophen (Percocet 5-325mg Tab) 1 tab Q6H PRN PO 07/11/17 16:15 07/25/17 16:14 Sodium Bicarbonate (Sodium Bicarbonate Tab) 1,300 mg TID PO 07/12/17 14:00 08/10/17 13:59 07/12/17 14:08 1,300 MG
[2017-07-12] MEDS: DULOXETINE HCL 60 MG CAP PO SCH (20:58)
[2017-07-13] MEDS: SODIUM BICARBONATE 8.4% INJ 75 MEQ in SODIUM CHLORIDE 0.45% 1000ML 1,000 ML IV SCH ×2 (04:07→10:50)
[2017-07-13 04:27] VITALS: BP 134/54; PULSE 62; TEMP 36.7; O2SAT 98
[2017-07-13] MEDS: HEPARIN SOD 5000 UNIT/0.5 ML CARP SQ SCH (06:20)
[2017-07-13 07:28] VITALS: BP 128/79; PULSE 75; TEMP 36.9; O2SAT 98
[2017-07-13] MEDS: PROPRANOLOL HCL 60 MG LA CAP PO SCH (07:42)
[2017-07-13] MEDS: LISINOPRIL 10 MG TAB PO SCH (07:42)
[2017-07-13] MEDS: ATORVASTATIN 20 MG TAB PO SCH (07:42)
[2017-07-13] MEDS: SODIUM BICARBONATE 650 MG TAB PO SCH ×2 (07:42→13:44)
[2017-07-13] MEDS: PANTOprazole SOD 40 MG TAB PO SCH (07:42)
[2017-07-13] MEDS: AMLODIPINE BESYLATE 5 MG TAB PO SCH (07:43)
[2017-07-13] MEDS: PREGABALIN 50 MG CAP PO SCH ×2 (07:46→13:45)
[2017-07-13] MEDS: INSULIN GLARGINE SOLOSTAR 100 UNITS/ML 3 ML PEN SC SCH (08:08)
[2017-07-13] MEDS: INSULIN ASPART 100 UNITS/ML 3 ML PEN SC SCH ×2 (08:08→12:25)
[2017-07-13 08:45] LABS: CALCIUM 9.6 mg/dl (8.5-10.1); CREATININE 0.81 mg/dl (0.60-1.20); POTASSIUM 3.8 mmol/L (3.5-5.1)
[2017-07-13 11:11] VITALS: BP 125/75; PULSE 70; TEMP 37.2; O2SAT 93
--- NOTE | 2017-07-13 12:53 | Progress Note ---
Medicine Progress Note Date & Time of Visit: Jul 13, 2017 at 12:48. Subjective Seen sitting up in chair comfortable States she feels good overall Denies dizziness, shortness of breath, abdominal pain, nausea weakness Ambulating without problems Denies fever chills No other symptoms States she is ready and would like to be discharged today Objective Last 8 Hrs Date Time Temp Pulse Resp B/P (MAP) Pulse Ox O2 Delivery O2 Flow Rate FiO2 07/13/17 11:11 37.2 70 18 125/75 (92) 93 Room Air 07/13/17 08:00 Room Air 07/13/17 07:28 36.9 75 18 128/79 (95) 98 Room Air Physical Exam: General- oriented 3 not in distress speaking sentences no effort Eyes- anicteric Neck- supple, no JVD Lungs- clear breath sounds bilaterally Heart- regular rhythm; no murmur, normal rate Abdomen- normal bowel sounds, soft, nontender, nondistended Extremities- no pretibial edema, no calf tenderness Neuro- alert, oriented x 3; no gross focal neuro deficits Skin- warm & dry Laboratory Results: Last 24 Hours Test 07/12/17 16:10 07/12/17 20:22 07/13/17 07:34 07/13/17 07:54 Bedside Glucose 111 mg/dl 116 mg/dl 132 mg/dl Sodium Level 135 mmol/L Potassium Level 3.8 mmol/L Chloride Level 106 mmol/L Carbon Dioxide Level 22 mmol/L Anion Gap 8.0 mmol/L Blood Urea Nitrogen 16 mg/dl Creatinine 0.81 mg/dl Est Creatinine Clear Calc Drug Dose 90.5 ml/min Estimated GFR () 102.4 Estimated GFR (Non- 88.3 BUN/Creatinine Ratio 19.7 Random Glucose 120 mg/dl Calcium Level 9.6 mg/dl Assessment & Plan This is a 42yo F with h/o recurrent severe metabolic acidosis, DM I (DKA most recently May 2017), intermittent hypercalcemia and other medical problems listed below who presents with abnormal lab work per Dr. Everett. Recurrent metabolic acidosis -H/o multifactorial etiology of h/o partial colectomy and poor PO intake -Asymptomatic; pH of 7.25, bicarb of 16, potassium of 5.1, no anion gap, calcium of 12. -Sodium bicarb drip and normal saline bolus were administered in ED -Has not been taking increased dose of sodium bicarb at home Bicarb level [address] Everett Placed on a sodium bicarbonate drip Sodium bicarbonate tablets increased to 1300 mg 3 times daily Bicarb level improved from 14- Patient remained asymptomatic Cleared for discharge by on Coumadin Recommend to take sodium bicarbonate tablets 1300 mg twice a day Repeat bicarbonate level on Monday and of next week, Dr. Everett to follow -up results follow-up with primary care physician next week Hypercalcemia: -Ca of 12 on admission Given IV fluids Calcium improved to 9 Serologic workup in pending progress including SPEP, PTH, PTH RP, JAGRUTI level DM I: controlled -Last episode of DKA in Apr 2017 -A1c improved to 6.6 in June 2017 (formerly 13) -Cont Tresiba 15U BID Continue usual regimen H/o rib fractures: -Fx of R 5,6,7 Pain resolved CKD III: -Cr at baseline -Continue to monitor HTN: -Normotensive -Continue amlodipine,propranolol and lisinopril HLD: -Cont statin GERD: -Cont PPI DVT Ppx: SQ heparin Code status: FULL PCP: Ady Seo Discharged home today Follow-up with primary care physician next week Follow-up with unscrambler as scheduled Current Inpatient Medications: Current Inpatient Medications Medications (Trade) Dose Ordered Sig/Yudy Route Start Time Stop Time Status Last Admin Dose Admin Heparin Sodium (Porcine) (Heparin Sq 5000 Unit/0.5ml) 5,000 unit Q8 SQ 07/11/17 22:00 08/10/17 21:59 07/13/17 06:20 5,000 UNIT Insulin Aspart (novoLOG ASPART) SLIDING SCALE If C... ACHS SC 07/11/17 16:00 08/10/17 15:59 07/13/17 12:25 6 UNITS Glucose (Glucose 40% Gel) 15-30 GRAMS 15 GRAMS... UD PRN PO 07/11/17 16:00 08/10/17 15:59 Glucose (Glucose Chew Tab) 4-8 Tablets 4 Tabl... UD PRN PO 07/11/17 16:00 08/10/17 15:59 Dextrose (Dextrose 50% 50ML Syringe) 25-50ML OF 50% DW IV FOR... UD PRN IV 07/11/17 16:00 08/10/17 15:59 Glucagon (Glucagon Inj) 1 mg UD PRN SQ 07/11/17 16:00 08/10/17 15:59 Sodium Bicarbonate 75 meq/Sodium Chloride 1,075 ml @ 125 mls/hr Q8H36M IV 07/12/17 01:30 08/11/17 01:29 07/13/17 10:50 125 MLS/HR Insulin Glargine (Lantus Solostar Pen) For BSG <120, give 0 un... Q12 SC 07/11/17 21:00 08/10/17 20:59 07/13/17 08:08 15 UNITS Miscellaneous (Iv Fluids Completed) 1 ea PRN PRN N/A 07/11/17 16:15 07/11/18 16:14 Acetaminophen (Tylenol Tab) 1,000 mg Q8 PRN PO 07/11/17 16:15 08/10/17 16:14 Amlodipine Besylate (Norvasc Tab) 10 mg DAILY PO 07/12/17 09:00 08/11/17 08:59 07/13/17 07:43 10 MG Atorvastatin Calcium (Lipitor Tab) 20 mg DAILY PO 07/12/17 09:00 08/11/17 08:59 07/13/17 07:42 20 MG Duloxetine HCl (Cymbalta Cap) 60 mg QPM PO 07/11/17 21:00 08/10/17 20:59 07/12/17 20:58 60 MG Lisinopril (Zestril Tab) 10 mg DAILY PO 07/12/17 09:00 08/11/17 08:59 07/13/17 07:42 10 MG Pregabalin (Lyrica Cap) 50 mg TID PO 07/11/17 21:00 08/10/17 20:59 07/13/17 07:46 50 MG Miscellaneous Information (Order Awaiting Action) 1 ea QS N/A 07/12/17 00:00 08/11/17 00:00 Propranolol HCl (Inderal La Cap) 120 mg BID PO 07/11/17 21:00 08/10/17 20:59 07/13/17 07:42 120 MG Pantoprazole Sodium (Protonix Tab) 40 mg QAM PO 07/12/17 09:00 08/11/17 08:59 07/13/17 07:42 40 MG Oxycodone/ Acetaminophen (Percocet 5-325mg Tab) 1 tab Q6H PRN PO 07/11/17 16:15 07/25/17 16:14 Sodium Bicarbonate (Sodium Bicarbonate Tab) 1,300 mg TID PO 07/12/17 14:00 08/10/17 13:59 07/13/17 07:42 1,300 MG
[2017-07-13] MEDS ORDERED: SODI650T8 PO (12:56)
--- NOTE | 2017-07-13 13:02 | Discharge Instructions ---
Discharge Instructions Date of Service Jul 13, 2017. Admission Reason for Admission: Metabolic Acidosis Discharge Discharge Diagnosis / Problem: METABOLIC ACIDOSIS Discharge Goals Goal(s): Diagnostic testing, Therapeutic intervention Activity Recommendations Activity Limitations: as noted below (NO HEAVY EXERTION UNTIL RE-EVALUATED BY PRIMARY CARE PHYSICIAN) Lifting Limitations: until after follow-up appointment Exercise/Sports Limitations: until after follow-up appointment Driving or Machine Use: NO DRIVING UNTIL RE-EVALUATED BY PRIMARY CARE PHYSICIAN . Instructions / Follow-Up Instructions / Follow-Up PLEASE REVIEW YOUR NEW MEDICATION LIST AND FOLLOW INSTRUCTIONS CAREFULLY. ENSURE ADEQUATE DAILY FLUID INTAKE. AT LEAST 8 GLASSES OF WATER A DAY. CALL PRIMARY CARE PHYSICIAN OR RETURN TO ER IMMEDIATELY IF WITH WEAKNESS, DIZZINESS, NAUSEA/VOMITING, FEVER/CHILLS, CONFUSION. FOLLOW UP WITH PRIMARY CARE PHYSICIAN IN 1 WEEK. REPEAT BLOOD WORK NEXT WEEK. FOLLOW UP WITH KIDNEY SPECIALIST DR. DÍAZ SCHEDULED. Current Hospital Diet Patient's current hospital diet: Diabetes Type 1 Diet, Renal Diet Discharge Diet Recommended Diet: Diabetes Type 1 Diet Pending Studies Studies pending at discharge: yes List of pending studies: REPEAT BLOODWORK NEXT WEEK SCHEDULED Laboratory Results Hemoglobin A1c Test 07/04/17 04:15 Range/Units Estimated Average Glucose 143 mg/dl Hemoglobin A1c 6.6 H 4.5-5.6 % Lipid Panel Test 06/16/17 07:05 Range/Units Triglycerides Level 263 H 0-150 mg/dl Cholesterol Level 194 0-200 mg/dl HDL Cholesterol 45 mg/dl Cholesterol/HDL Ratio 4.3 LDL Cholesterol, Calculated 96 mg/dl Medical Emergencies . Who to Call and When: Medical Emergencies: If at any time you feel your situation is an emergency, please call 911 immediately. . Non-Emergent Contact Non-Emergency issues call your: Primary Care Provider, Improvement Nurse Call Non-Emergent contact if: you have a fever, you have any medication questions . . "Provider Documentation" section prepared by Varghese Rivera. .
--- NOTE | 2017-07-13 13:06 | Discharge Summary ---
Discharge Summary Date of Service Jul 13, 2017. Discharge Summary Admission Date: Jul 11, 2017 at 15:52 Discharge Date: Jul 13, 2017 Discharge Disposition: Home Principal Diagnosis: Recurrent metabolic acidosis Secondary Diagnoses/Problems: Please refer to hospital course below. Consultations: Nephrology Dr. Everett Pending Studies/Follow-Up: Please refer to hospital course below. Medication Reconciliation New Medications: Sodium Bicarbonate (Sodium Bicarbonate) 650 Mg Tab 1300 MG PO BID for 30 Days Continued Medications: Acetaminophen (Acetaminophen) 500 Mg Tab 1000 MG PO Q8 PRN for severe pain, #60 TAB No prescription necessary. Albuterol Hfa (Ventolin Hfa) 200 Puffs/84663 Mcg Aers 2 PUFFS INH Q4H PRN for SOB/Wheezing, #1 INHALER Amlodipine (Norvasc) 10 Mg Tab 10 MG PO DAILY, TAB Atorvastatin (Lipitor) 20 Mg Tab 20 MG PO DAILY, TAB Duloxetine Hcl (Cymbalta) 60 Mg Cap 60 MG PO QPM, CAP Esomeprazole Magnesium (Nexium) 40 Mg Capcr 40 MG PO QAM, CAP Fenofibrate (Tricor) 160 Mg Tab 160 MG PO DAILY, TAB Insulin Degludec (Tresiba Flextouch) 100 Unit/Ml Inj 30 UNITS SQ HS Insulin Lispro (Human) (Humalog Kwikpen) 100 Unit/Ml Inj UNITS SQ DIRECTED THE SLIDING SCALE Insulin Lispro (Human) (Humalog) 100 Unit/Ml Inj 16 UNITS SQ QDB Insulin Lispro (Human) (Humalog) 100 Unit/Ml Inj 20 UNITS SQ QDL Insulin Lispro (Human) (Humalog) 100 Unit/Ml Inj 26 UNITS SQ QDD Lisinopril (Lisinopril) 20 Mg Tab 10 MG PO DAILY [place]-3 Fatty Acids (Fish Oil) 1,000 Mg Cap 1000 MG PO BID Oxycodone HCl (Oxycodone HCl) 5 Mg Tab 5 MG PO Q6 PRN for severe pain, #12 TAB Pregabalin (Lyrica) 50 Mg Cap 50 MG PO TID, #90 Propranolol Hcl (Propranolol Hcl Er) 120 Mg Cap 120 MG PO BID Discontinued Medications: Sodium Bicarbonate (Antacid) (Sodium Bicarbonate) 325 Mg Tab 325 MG PO BID Admission Information HPI (per Admitting provider): This is a 42yo F with h/o recurrent severe metabolic acidosis, DM I (DKA most recently May 2017), intermittent hypercalcemia and other medical problems listed below who presents with abnormal lab work per Dr. Everett. Patient is hyperkalemic at 6 and hypercalcemic at 12.4. Has been admitted multiple times in the past year for severe metabolic acidosis that is multifactorial in etiology. Admitted in Apr 2017 for DKA and C diff and required acute dialysis, in May 2017 with sepsis w/o source and severe metabolic acidosis requiring dialysis, in early June for gallstone pancreatitis s/p cholecystectomy and most recently from June 30- for metabolic acidosis 2/2 poor PO intake and h /o partial colectomy. Was discharged home on increased dose of sodium bicarb 650mg BID but has been taking 325mg BID. Patient feels fine currently, denying the nausea and vomiting she has experienced in the past when admitted for metabolic acidosis. Denies fever, chills, headache, lightheadedness, visual change, chest pain, palpitations, SOB , abdominal pain, dysuria, diarrhea, constipation, numbness/tingling in extremities or LE swelling. Has been taking all medications as prescribed. Glycemic control has significantly improved, with most recent A1c of 6.6. In the ED, patient was found to have a pH of 7.25, bicarb of 16, potassium of 5.1, no anion gap, calcium of 12. Sodium bicarb drip and normal saline bolus were administered. Physical Exam (per Admitting): General Appearance: WD/WN, no apparent distress Head: normocephalic, atraumatic Eyes: normal inspection, PERRL, sclerae normal ENT: normal ENT inspection, hearing grossly normal, pharynx normal (Moist mucous membranes) Neck: supple, thyroid normal, trachea midline Respiratory/Chest: chest non-tender, lungs clear, normal breath sounds, no respiratory distress, no accessory muscle use Cardiovascular: regular rate, rhythm, no murmur, normal peripheral pulses Abdomen/GI: non tender, soft, no organomegaly, + tenderness (Tenderness over R ribs) Back: normal inspection Extremities/Musculoskelatal: normal inspection, no calf tenderness, no pedal edema Neurologic/Psych: no motor/sensory deficits, alert, normal mood/affect, oriented x 3 Skin: normal color, warm/dry Hospital Course This is a 42yo F with h/o recurrent severe metabolic acidosis, DM I (DKA most recently May 2017), intermittent hypercalcemia and other medical problems listed below who presents with abnormal lab work per Dr. Everett. Recurrent metabolic acidosis, Unclear Etiology -H/o multifactorial etiology of h/o partial colectomy and poor PO intake -Asymptomatic; pH of 7.25, bicarb of 16, potassium of 5.1, no anion gap, calcium of 12. -Sodium bicarb drip and normal saline bolus were administered in ED -Has not been taking increased dose of sodium bicarb at home Bicarb level [address] Everett, felt to be GI related Placed on a sodium bicarbonate drip Sodium bicarbonate tablets increased to 1300 mg 3 times daily Bicarb level improved from 14-22 Patient remained asymptomatic Cleared for discharge by on Coumadin Recommend to take sodium bicarbonate tablets 1300 mg twice a day Repeat bicarbonate level on Monday and of next week, Dr. Everett to follow -up results follow-up with primary care physician next week Hypercalcemia: -Ca of 12 on admission Given IV fluids Calcium improved to 9 Serologic workup in pending progress including SPEP, PTH, PTH RP, JAGRUTI level monitor Ca level DM I: -Last episode of DKA in Apr 2017 -A1c improved to 6.6 in June 2017 (formerly 13) Continue usual regimen H/o rib fractures: -Fx of R 5,6,7 Pain resolved CKD III: -Cr at baseline -Continue to monitor HTN: -Normotensive -Continue amlodipine,propranolol and lisinopril Anemia Hg 9 asymptomatic monitor further work up as outpatient HLD: -Cont statin GERD: -Cont PPI DVT Ppx: SQ heparin Code status: FULL PCP: Ady Seo Discharged home today Follow-up with primary care physician next week Follow-up with lumber tallier as scheduled Total time spent on discharge = 30 minutes This includes examination of the patient, discharge planning, medication reconciliation, and communication with other providers. Discharge Instructions Discharge Instructions Date of Service Jul 13, 2017. Admission Reason for Admission: Metabolic Acidosis Discharge Discharge Diagnosis / Problem: METABOLIC ACIDOSIS Discharge Goals Goal(s): Diagnostic testing, Therapeutic intervention Activity Recommendations Activity Limitations: as noted below (NO HEAVY EXERTION UNTIL RE-EVALUATED BY PRIMARY CARE PHYSICIAN) Lifting Limitations: until after follow-up appointment Exercise/Sports Limitations: until after follow-up appointment Driving or Machine Use: NO DRIVING UNTIL RE-EVALUATED BY PRIMARY CARE PHYSICIAN . Instructions / Follow-Up Instructions / Follow-Up PLEASE REVIEW YOUR NEW MEDICATION LIST AND FOLLOW INSTRUCTIONS CAREFULLY. ENSURE ADEQUATE DAILY FLUID INTAKE. AT LEAST 8 GLASSES OF WATER A DAY. CALL PRIMARY CARE PHYSICIAN OR RETURN TO ER IMMEDIATELY IF WITH WEAKNESS, DIZZINESS, NAUSEA/VOMITING, FEVER/CHILLS, CONFUSION. FOLLOW UP WITH PRIMARY CARE PHYSICIAN IN 1 WEEK. REPEAT BLOOD WORK NEXT WEEK. FOLLOW UP WITH KIDNEY SPECIALIST DR. EVERETT SCHEDULED. Current Hospital Diet Patient's current hospital diet: Diabetes Type 1 Diet, Renal Diet Discharge Diet Recommended Diet: Diabetes Type 1 Diet Pending Studies Studies pending at discharge: yes List of pending studies: REPEAT BLOODWORK NEXT WEEK SCHEDULED Laboratory Results Hemoglobin A1c Test 07/04/17 04:15 Range/Units Estimated Average Glucose 143 mg/dl Hemoglobin A1c 6.6 H 4.5-5.6 % Lipid Panel Test 06/16/17 07:05 Range/Units Triglycerides Level 263 H 0-150 mg/dl Cholesterol Level 194 0-200 mg/dl HDL Cholesterol 45 mg/dl Cholesterol/HDL Ratio 4.3 LDL Cholesterol, Calculated 96 mg/dl Medical Emergencies . Who to Call and When: Medical Emergencies: If at any time you feel your situation is an emergency, please call 911 immediately. . Non-Emergent Contact Non-Emergency issues call your: Primary Care Provider, Food Processing Scientist Call Non-Emergent contact if: you have a fever, you have any medication questions . . "Provider Documentation" section prepared by Varghese Rivera. .
[2017-07-13 13:46] VITALS: BP 125/75; PULSE 70; TEMP 37.2; O2SAT 93
[2017-07-14] MEDS ORDERED: ACET-1256 PO (10:06)
[2017-07-14] MEDS ORDERED: SODI650T9 PO (10:06)
== END 2017-07-13 14:14 | disposition home or self-care (01) ==
LOC: C.EDB 12:27 → C.MED 15:52 → ENRESERV 16:01 → C.MED 07-12 05:21
PROVIDERS: ADMIT Internal Medicine; ATTEND Internal Medicine
DX: E87.2 Acidosis (principal); E11.22 Type 2 diabetes mellitus with diabetic chronic kidney disease; N18.3 Chronic kidney disease, stage 3 (moderate); I12.9 Hypertensive chronic kidney disease with stage 1 through stage 4 chronic kidney disease, or unspecified chronic kidney disease; K21.9 Gastro-esophageal reflux disease without esophagitis; E83.52 Hypercalcemia; E78.5 Hyperlipidemia, unspecified; Z93.2 Ileostomy status; F17.200 Nicotine dependence, unspecified, uncomplicated; Z98.890 Other specified postprocedural states; Z90.49 Acquired absence of other specified parts of digestive tract; Z79.4 Long term (current) use of insulin; Z79.899 Other long term (current) drug therapy; Z83.3 Family history of diabetes mellitus; Z82.49 Family history of ischemic heart disease and other diseases of the circulatory system

== ENCOUNTER → 2017-07-25 | Day surgery (SDC) | payer BC ==
[2017-07-14 10:06] VITALS: BMI 32.0
--- NOTE | 2017-07-14 10:55 | PAT Medication Instructions ---
Service Date Jul 14, 2017. Current Home Medication List Acetaminophen (Tylenol), 1,000 MG PO Q8 PRN for Pain Albuterol Hfa (Ventolin Hfa), 2 PUFFS INH Q4H PRN for SOB/Wheezing Amlodipine (Norvasc), 10 MG PO QAM Atorvastatin (Lipitor), 20 MG PO HS Duloxetine Hcl (Cymbalta), 60 MG PO QPM Esomeprazole Magnesium (Nexium), 40 MG PO QAM Fenofibrate (Tricor), 160 MG PO HS Insulin Degludec (Tresiba Flextouch), 30 UNITS SQ HS Insulin Lispro (Human) (Humalog Kwikpen), UNITS SQ DIRECTED Insulin Lispro (Human) (Humalog), 16 UNITS SQ QDB Insulin Lispro (Human) (Humalog), 20 UNITS SQ QDL Insulin Lispro (Human) (Humalog), 26 UNITS SQ QDD Lisinopril (Lisinopril), 10 MG PO QAM [place]-3 Fatty Acids (Fish Oil), 1,000 MG PO BID Pregabalin (Lyrica), 50 MG PO TID Propranolol Hcl (Propranolol Hcl Er), 120 MG PO BID Sodium Bicarbonate (Sodium Bicarbonate), 1,300 MG PO BID Medication Instructions For Your Scheduled Surgery - Hold the following medications 2 weeks prior to surgery: [place]-3 Fatty Acids (Fish Oil), 1,000 MG PO BID - Hold the following medications the morning of surgery: Insulin Lispro (Human) (Humalog Kwikpen), UNITS SQ DIRECTED Insulin Lispro (Human) (Humalog), 16 UNITS SQ QDB Lisinopril (Lisinopril), 10 MG PO QAM Sodium Bicarbonate (Sodium Bicarbonate), 1,300 MG PO BID - Take the following medications the morning of surgery with a sip of water: Acetaminophen (Tylenol), 1,000 MG PO Q8 PRN for Pain (if needed, can be taken up to four hours before surgery) Albuterol Hfa (Ventolin Hfa), 2 PUFFS INH Q4H PRN for SOB/Wheezing (if needed) Amlodipine (Norvasc), 10 MG PO QAM Esomeprazole Magnesium (Nexium), 40 MG PO QAM Pregabalin (Lyrica), 50 MG PO TID Propranolol Hcl (Propranolol Hcl Er), 120 MG PO BID - Take the following medications as scheduled the night before surgery: Acetaminophen (Tylenol), 1,000 MG PO Q8 PRN for Pain (if needed) Albuterol Hfa (Ventolin Hfa), 2 PUFFS INH Q4H PRN for SOB/Wheezing (if needed) Atorvastatin (Lipitor), 20 MG PO HS Duloxetine Hcl (Cymbalta), 60 MG PO QPM Fenofibrate (Tricor), 160 MG PO HS Insulin Degludec (Tresiba Flextouch), 30 UNITS SQ HS Insulin Lispro (Human) (Humalog), 20 UNITS SQ QDL Insulin Lispro (Human) (Humalog), 26 UNITS SQ QDD Pregabalin (Lyrica), 50 MG PO TID Propranolol Hcl (Propranolol Hcl Er), 120 MG PO BID If you have any questions please call us at [phone] or [phone] or [phone]
--- NOTE | 2017-07-14 11:49 | DIAGNOSTIC IMAGING REPORT ---
CHEST 2 VIEWS ROUTINE CLINICAL HISTORY: Preoperative evaluation. COMPARISON STUDY: Chest radiograph June 30, 2017. FINDINGS: The right subclavian central line has been removed. There is no pneumothorax or pleural effusion. Pulmonary vascularity is normal. Cardiomediastinal silhouette is unremarkable. IMPRESSION: No acute cardiopulmonary findings. Electronically signed by: Usman White M.D. 07/14/2017 11:47 AM Dictated Date/Time: 07/14/2017 11:47 AM
[2017-07-14 12:02] LABS: BASO % 0.6 %; BASO ABS # 0.05 K/uL (0-0.2); EOS % 1.8 %; EOS ABS # 0.15 K/uL (0-0.5); HEMATOCRIT 30.1 % (37-47); HEMOGLOBIN 9.4 g/dL (12.0-16.0); IG# 0.03 K/uL (0.00-0.02); LYMPH % 36.4 %; LYMPH ABS # 3.12 K/uL (1.2-3.4); MEAN CELL VOLUME 84.6 fL (80-100); MEAN CORPUSCULAR HEMOGLOBIN 26.4 pg (25-34); MEAN CORPUSCULAR HGB CONC 31.2 g/dl (32-36); MEAN PLATELET VOLUME 9.4 fL (7.4-10.4); MONO % 7.4 %; MONO ABS # 0.63 K/uL (0.11-0.59); NEUT % 53.4 %; NEUT ABS # 4.58 K/uL (1.4-6.5); PLATELET COUNT 349 K/uL (130-400); RED CELL DISTRIBUTION WIDTH CV 18.2 % (11.5-14.5); WHITE BLOOD COUNT 8.56 K/uL (4.8-10.8)
[2017-07-14 12:12] LABS: PTT PATIENT 26.9 SECONDS (21.0-31.0)
[~2017-07-25] VITALS: Ht 160 cm; Wt 83.0 kg
[~2017-07-25] MED LIST changes: +ACET-1256 PO; -ACET500T58 PO; +ATROPINE SULFATE 0.1 MG/ML 5ML SYR IV PRN; +CEFAZOLIN 2000MG IV PUSH 15 ML IV SCH; -CHOL1000 PO; +DEXAMETHASONE SOD INJ 4 MG/ML VIAL ONE; +EpHEDrine SULFATE INJ 50 MG/ML AMP IV PRN; +EpINEphrine HCL INJ 1 MG/ML 1ML SYRINGE ONE; +FENTANYL CITRATE INJ 50 MCG/1 ML 2 ML VIAL IV PRN; +FENTANYL CITRATE INJ 50 MCG/1 ML 2 ML VIAL ONE; +GLYCOPYRROLATE INJ 0.2 MG/ML VIAL ONE; +HYDROmorphone INJ 0.5 MG/0.5 ML SYR IV PRN; +INSU100I SQ; +LABETALOL HCL IV 5 MG/ML 20ML IV PRN; +LACTATED RINGER'S 1000ML 1,000 ML IV SCH; +LIDOCAINE HCL 2% 2 ML VIAL (20MG/ML) ONE; +MEPERIDINE HCL 25 MG/ML CARP IV PRN; +MIDAZOLAM HCL 1 MG/ML 2ML VIAL ONE; +NEOSTIGMINE METHYLSULFATE 5 MG/5 ML SYR ONE; +ONDANSETRON INJ 2 MG/ML 2 ML VIAL IV PRN; +ONDANSETRON INJ 2 MG/ML 2 ML VIAL ONE; +OXYC-57 PO; -OXYC-609 PO; +OXYCODONE/ACETAMINOPHEN 5-325 TAB PO PRN; +PROPOFOL IV EMULSION 10 MG/ML 20 ML VIAL IV ONE; +ROCURONIUM BROMIDE 10 MG/ML 5 ML VIAL IV ONE; +ROPIVACAINE 0.5% 5 MG/ML 30 ML VIAL ONE; -SODI650T8 PO; +SODI650T9 PO; +SODIUM CHLORIDE 0.9% 1000ML 1,000 ML IV SCH
[2017-07-25 05:42] VITALS: BP 142/59; PULSE 69; TEMP 36.7; O2SAT 99; Ht 160 cm; Wt 83.0 kg
--- NOTE | 2017-07-25 06:59 | History & Physical Bridge Note ---
H&P Re-Evaluation Bridge Note: I have examined the patient, reviewed the History & Physical and in the interval since the performance of the History & Physical I have noted the following changes of clinical significance: No changes noted
--- NOTE | 2017-07-25 07:00 | History and Physical ---
History & Physical Date Jul 25, 2017. Chief Complaint Right Shoulder pain History of Present Illness The patient is a 42 year old female with complaints of right shoulder pain x several months, admits to weakness with lifting away from her body and overhead activities, denies numbness tingling. admits to decreased range of motion, now waking her at night. is limited in NSAID use due to history of diabetes. had xrays which were essentially normal, MRI showing findings consistent with high grade partial tear vs full thickness tear of rotator cuff. after further discussion, would like to proceed with shoulder arthroscopy, rotator cuff repair. Past Medical/Surgical History Medical Problems: (1) Diabetes mellitus type 1 (2) Dyslipidemia (3) Fracture of rib of right side (4) GERD (gastroesophageal reflux disease) (5) Hypertension (6) Hyponatremia (7) Lumbar Disc Displacement (8) Suppurative hidradenitis Surgical Problems: (1) Hx laparoscopic cholecystectomy (2) Hx of ileostomy (3) Status post cholecystectomy (4) Status post partial colectomy Additional History Hypertension: Yes Heart Disease: No Bleeding Tendencies: No Infectious Diseases: No Allergies Coded Allergies: BEE STING (Verified Allergy, Intermediate, RED, SHORT OF BREATH, 07/25/17) NO KNOWN DRUG ALLERGIES (Verified Allergy, Unknown, NKDA, 07/25/17) Home Medications Scheduled Amlodipine (Norvasc), 10 MG PO QAM Atorvastatin (Lipitor), 20 MG PO HS Duloxetine Hcl (Cymbalta), 60 MG PO QPM Esomeprazole Magnesium (Nexium), 40 MG PO QAM Fenofibrate (Tricor), 160 MG PO HS Insulin Degludec (Tresiba Flextouch), 30 UNITS SQ HS Insulin Lispro (Human) (Humalog), 16 UNITS SQ QDB Insulin Lispro (Human) (Humalog), 20 UNITS SQ QDL Insulin Lispro (Human) (Humalog), 26 UNITS SQ QDD Lisinopril (Lisinopril), 10 MG PO QAM [place]-3 Fatty Acids (Fish Oil), 1,000 MG PO BID Pregabalin (Lyrica), 50 MG PO TID Propranolol Hcl (Propranolol Hcl Er), 120 MG PO BID Sodium Bicarbonate (Sodium Bicarbonate), 1,300 MG PO BID Scheduled PRN Acetaminophen (Tylenol), 1,000 MG PO Q8 PRN for Pain Albuterol Hfa (Ventolin Hfa), 2 PUFFS INH Q4H PRN for SOB/Wheezing Physical Examination Skin: warm/dry, no rash Eyes: normal inspection, EOMI, sclerae normal ENT: normal ENT inspection, pharynx normal Head: normocephalic, atraumatic Neck: supple, no adenopathy, trachea midline Respiratory/Chest: lungs clear, normal breath sounds, no respiratory distress Cardiovascular: regular rate, rhythm, no edema, no murmur Abdomen / GI: normal bowel sounds, non tender Extremities: + pertinent finding Addiitonal Comments: right shoulder exam: AROM: FF 160, ABD/ER- C7, ADD/IR- L5, positive weakness with resisted ABD and FF, + Neer, + Marc, strength 5/5 IR; Rad pulse +2, NVDI Diagnosis right shoulder rotator cuff tear, DJD AC joint
--- NOTE | 2017-07-25 08:13 | [facility] Post Operative Brief Note ---
Immediate Operative Summary Operative Date Jul 25, 2017. Pre-Operative Diagnosis Right shoulder rotator cuff tear, degenerative joint disease of acromioclavicular joint Post-Operative Diagnosis Right shoulder impingement syndrome with rotator cuff tear Procedure(s) Performed Arthroscopy subacromial decompression acromioplasty double row repair rotator cuff utilizing 4.5 double loaded helical oil 4.[address] Shafer Sludge Mill Operator Surgeon(s) Pasha Liu PA-C Estimated Blood Loss 2cc Findings Consistent with Post-Op Diagnosis Specimens none Drains None Anesthesia Type General Regional Complication(s) none Disposition Disposition: Recovery Room / PACU
--- NOTE | 2017-07-25 08:16 | [facility] Operative Report ---
Operative Report Operative Date Jul 25, 2017. Pre-Operative Diagnosis Right shoulder rotator cuff tear, degenerative joint disease of acromioclavicular joint Post-Operative Diagnosis Right shoulder impingement syndrome with rotator cuff tear Procedure(s) Performed Arthroscopy subacromial decompression acromioplasty double row repair rotator cuff utilizing 4.5 double loaded helical oil 4.[address] Shafer Machine Hoop Maker Surgeon(s) Pasha Liu PA-C Estimated Blood Loss 2cc Findings Patient presents with a full-thickness rotator cuff tear impingement syndrome has been ongoing pain no response to conservative therapy including injections anti-inflammatories relative rest patient presents for arthroscopic rotator cuff repair Specimens none Drains None Anesthesia Type General Regional Complication(s) none Disposition Recovery Room / PACU Indications Patient presents after failed attempts at conservative management for full- thickness rotator cuff tear with impingement syndrome patient's been no response to conservative management including physical therapy anti- inflammatories relative rest activity modification and continues to have complaints of pain as well as leg pain Description of Procedure After proper prepping draping the right shoulder region are scop examination beginning in the region of the intra-articular portion of the glenohumeral joint there is evidence of some mild fraying of the anterior glenoid labrum was all debrided back to stable margin full-thickness Rotator cuff tear involving the supraspinatus tendon was noted socially the undersurface of the frayed tendon was debrided back to stable margin of the subacromial space was decompressed bursa was excised anterior-inferior acromioplasty was performed to create a type I acromion rotator cuff free edge of the tendon was mobilized it was visualized and was subsequent repair back to bed of bleeding bone utilizing a 4.5 double loaded helical coil and a second 4.5 mm footprint anchor was tension rotator cuff tear repair was complete the edges of the tendon laid down in a smooth fashion meticulous hemostasis was obtained and maintained on particular matter debris was removed on ventricular pathology was noted subsequently the wound was closed with a 4-0 nylon sterile compressive dressings placed was noted to Matias CABRERA was necessary for the case he was necessary for suture management arm positioning wound closure was necessary for the case I attest to the content of the Intraoperative Record and any orders documented therein. Any exceptions are noted below.
--- NOTE | 2017-07-25 08:28 | Discharge Instructions ---
Discharge Instructions Date of Service Jul 25, 2017. Visit Reason for Visit: Right Shoulder Osteoarthritis, Rotator Cuff Tear Discharge Discharge Diagnosis / Problem: right shoulder subacromial decompression and rotator cuff repair Discharge Goals Goal(s): Decrease discomfort, Improve function, Increase independence Activity Recommendations Activity Limitations: as noted below Anesthesia . Post Anesthesia Instructions: If you have had General Anesthesia or IV Sedation: * Do not drive today. * Resume driving when surgeon permits. * Do not make important decisions or sign legal documents today. * Call surgeon for: 1. Temperature elevations greater than 101 degrees F. 2. Uncontrollable pain. 3. Excessive bleeding. 4. Persistent nausea and vomiting. 5. Medication intolerance (nausea, vomiting or rash). * For nausea and vomiting use only clear liquids such as: tea, soda, bouillon until nausea subsides, then gradually increase diet as tolerated. * If you have any concerns or questions, call your surgeon's office. If physician is unavailable and it is an emergency, call 911 or go to the nearest emergency room. . Instructions / Follow-Up Instructions / Follow-Up [facility] DISCHARGE INSTRUCTIONS: ROTATOR CUFF REPAIR SELF CARE INSTRUCTIONS A. You are permitted to loosen your sling/immobilizer to move your elbow, wrist , and hand to prevent stiffness. You should use your well arm (good arm) to assist the operated extremity when trying to raise the arm away from the body, hygiene purposes. Do NOT actively try to use/engage your shoulder muscles in operative arm at this time. You should NOT do overhead activity, lifting, or attempt to reach behind your back. B. You may/may not be instructed to start Physical Therapy upon discharge depending upon the size and difficulty of the repair. You will be provided a prescription for therapy with specific restrictions, if needed, at time of discharge. C. At 48 hours post-operatively, you may change your dressing. (Leave white steri-strips intact if present). Use band-aids and change daily. You are allowed to shower at this time and get the incision area wet, but DO NOT soak or submerge incision area in water. (No baths, swimming pools, hot tubs) D. Do NOT apply soap or any ointment/lotions directly over incision. E. You may use ice as needed to operative shoulder SPECIAL CARE INSTRUCTIONS: VERY IMPORTANT TO READ AND REVIEW A. There are a few signs you need to watch for after you are home. Call [facility] at [phone] if you experience any of the following: a. Increased severe shoulder pain. Some pain is expected especially when you exercise b. Increased swelling in your shoulder or arm; pain or swelling in either upper extremity. (Note: swelling and stiffness is normal and expected for several weeks post op, depending on type of shoulder surgery you had). c. Any fluid or drainage from the incision; redness of the incision. d. Shortness of breath or chest pain. B. Please call [facility] at [phone] if you have any questions or concerns about your operation or recovery. C. Call your physician if: a. Temperature is greater than 101 degrees (F). b. Pain is not relieved by prescribed pain medications. c. Increase drainage or redness from incision. d. Unanswered questions or concerns. D. Pain Medication: a. You will be prescribed pain medication upon discharge that should last till your first post-operative appointment. b. If you experience nausea and/or skin rash, discontinue this medication and contact our office for an alternative medication. c. Caution- narcotic pain medication can cause constipation. FOLLOW UP VISIT: Begin Physical therapy 1-2 days after your surgery. Prescription has been placed in your chart, please call the facility of your choice to schedule your first appointment. Please call [facility] at [phone] to schedule a follow up appointment 10-14 days from your surgery date. Diet Recommendations Recommended Home Diet: diabetes diet Procedures Procedures Performed: Arthroscopy subacromial decompression acromioplasty double row repair rotator cuff utilizing 4.5 double loaded helical oil 4.5 footprint anchor Pending Studies Studies pending at discharge: no Medical Emergencies . Who to Call and When: Medical Emergencies: If at any time you feel your situation is an emergency, please call 911 immediately. . Non-Emergent Contact Non-Emergency issues call your: Primary Care Provider, Surgeon . . "Provider Documentation" section prepared by Matias Liu. . [place] Drug Monitoring Program Search Results: patient reviewed within database, no issues identified
[2017-07-25 09:18] VITALS: BP 128/63; PULSE 70; TEMP 36.9; O2SAT 92
--- NOTE | 2017-07-25 09:39 | Anesthesiology Progress Note ---
Anesthesia Post Op Note Date & Time Jul 25, 2017 at 09:39 Vital Signs Pain Intensity: 4.0 Vital Signs Past 12 Hours Date Time Temp Pulse Resp B/P (MAP) Pulse Ox O2 Delivery O2 Flow Rate FiO2 07/25/17 09:18 36.9 70 70 128/63 92 Room Air 07/25/17 09:08 37.5 93 Room Air 07/25/17 09:07 69 21 92 07/25/17 09:07 69 21 07/25/17 09:06 111/72 07/25/17 09:02 67 26 07/25/17 09:02 72 26 93 07/25/17 09:01 122/83 07/25/17 08:57 66 23 07/25/17 08:57 67 23 93 07/25/17 08:56 101/71 07/25/17 08:52 66 24 100 07/25/17 08:52 66 24 07/25/17 08:51 115/66 07/25/17 08:50 64 21 100 07/25/17 08:50 63 21 07/25/17 08:49 117/66 07/25/17 08:45 64 22 100 07/25/17 08:45 64 22 07/25/17 08:41 151/95 07/25/17 08:40 62 22 07/25/17 08:40 67 22 100 07/25/17 08:36 142/91 07/25/17 08:35 66 24 07/25/17 08:35 67 24 99 07/25/17 08:31 144/64 07/25/17 08:30 70 96 07/25/17 08:30 36.5 68 12 144/64 97 Oxymask 10 07/25/17 08:30 70 07/25/17 05:42 36.7 69 20 142/59 (86) 99 Room Air Notes Mental Status: alert / awake / arousable, participated in evaluation Pt Amnestic to Procedure: Yes Nausea / Vomiting: adequately controlled Pain: adequately controlled Airway Patency, RR, SpO2: stable & adequate BP & HR: stable & adequate Hydration State: stable & adequate Anesthetic Complications: no major complications apparent
[2017-07-25 09:48] VITALS: BP 140/73; PULSE 80; TEMP 36.9; O2SAT 95
== END | disposition home or self-care (01) ==
LOC: C.ACU 04:46
PROVIDERS: ATTEND Orthopaedic Surgery
DX: M75.101 Unspecified rotator cuff tear or rupture of right shoulder, not specified as traumatic (principal); M75.41 Impingement syndrome of right shoulder; M19.011 Primary osteoarthritis, right shoulder; E10.9 Type 1 diabetes mellitus without complications; E78.5 Hyperlipidemia, unspecified; K21.9 Gastro-esophageal reflux disease without esophagitis; F41.9 Anxiety disorder, unspecified; I12.9 Hypertensive chronic kidney disease with stage 1 through stage 4 chronic kidney disease, or unspecified chronic kidney disease; Z87.81 Personal history of (healed) traumatic fracture; Z90.49 Acquired absence of other specified parts of digestive tract; N18.9 Chronic kidney disease, unspecified

== ENCOUNTER 2018-12-09 15:53 | Inpatient (IN) ==
[2018-12-09] MEDS ORDERED: SODIUM CHLORIDE 0.9% 1000ML 1,000 ML IV SCH ×2 (16:30→17:00)
[2018-12-09 16:35] LABS: Basophils # (auto) 0.01 K/uL (0-0.2); Basophils % (auto) 0.1 %; Eosinophils # (auto) 0.02 K/uL (0-0.5); Eosinophils % (auto) 0.1 %; Hematocrit (blood only) 44.5 % (37-47); Immature Granulocytes # (auto) 0.06 K/uL (0.00-0.02); Immature Granulocytes % (auto) 0.3 %; Lymphocytes # (auto) 1.04 K/uL (1.2-3.4); Lymphocytes % (auto) 5.7 %; Mean Corpuscular Hgb Conc 33.7 g/dL (32-36); Mean Platelet Volume 10.1 fL (7.4-10.4); Monocytes # (auto) 1.59 K/uL (0.11-0.59); Monocytes % (auto) 8.7 %; Neutrophils # (auto) 15.66 K/uL (1.4-6.5); Neutrophils % (auto) 85.1 %; Platelet Count 311 K/uL (130-400); RDW Coefficient of Variation 16.4 % (11.5-14.5); RDW Standard Deviation 43.9 fL (36.4-46.3); Red Blood Count 6.01 M/uL (4.2-5.4); White Blood Count 18.38 K/uL (4.8-10.8)
[2018-12-09 16:54] LABS: Alanine Aminotransferase 37 U/L (12-78); Albumin Globulin Ratio 0.8 (0.9-2); Albumin Level 3.8 gm/dl (3.4-5.0); Alkaline Phosphatase 139 U/L (45-117); Aspartate Aminotransferase 35 U/L (15-37); Bilirubin,Total 0.4 mg/dl (0.2-1); Blood Urea Nitrogen 61 mg/dl (7-18); Calcium 9.5 mg/dl (8.5-10.1); Carbon Dioxide 15 mmol/L (21-32); Chloride 100 mmol/L (98-107); Creatinine Clr Calc Pharmacy 16.4 ml/min; Est GFR (African American) 12.2; Est GFR (Non-African American) 10.5; Globulin 4.8 gm/dl (2.5-4.0); Glucose 338 mg/dl (70-99); Magnesium 2.1 mg/dl (1.8-2.4); Potassium 5.4 mmol/L (3.5-5.1); Sodium 130 mmol/L (136-145); Total Protein 8.6 gm/dl (6.4-8.2); Troponin I < 0.015 ng/ml (0-0.045)
[2018-12-09] MEDS ORDERED: DKA GOAL RANGE 150-250 mg/dl ONE ×2 (16:57→19:45)
[2018-12-09] MEDS ORDERED: NORMOSOL-R 1,000 ML IV SCH (17:00)
--- NOTE | 2018-12-09 17:10 | CT Scan Report ---
HEAD CT NONCONTRAST CT DOSE: 2327.59 mGy.cm HISTORY: fall, intermittent lethargy TECHNIQUE: Multiaxial CT images of the head were performed without the use of intravenous contrast. A utomated exposure control was utilized for this study. A dose lowering technique was utilized adheri ng to the principles of ALARA. Comparison: None. Findings: The paranasal sinuses and mastoid air cells are clear. The calvarium and skull base are int act. The ventricles and sulci are within normal limits. There is no mass, hematoma, midline shift, or acute infarct. Right frontal scalp swelling. Impression: No acute intracranial abnormality. Right frontal scalp swelling. Electronically signed by: Bennie Sung M.D. 12/09/2018 5:08 PM
[2018-12-09 17:15] LABS: Phosphorus 4.4 mg/dl (2.5-4.9)
[2018-12-09] MEDS ORDERED: DEXTROSE 50% 50 ML SYRINGE IV PRN (17:15)
[2018-12-09] MEDS ORDERED: CARBOHYDRATES FOR HYPOGLYCEMIA PO PRN (17:15)
[2018-12-09] MEDS ORDERED: GLUCOSE 10 TABS/TUBE PO PRN (17:15)
[2018-12-09] MEDS ORDERED: GLUCAGON FOR INJ 1 MG VIAL IM PRN (17:15)
[2018-12-09] MEDS ORDERED: NovoLIN-R BOLUS FROM BAG IV ONE (17:15)
[2018-12-09] MEDS ORDERED: GLUCOSE 40% GEL 15 GM TUBE PO PRN (17:15)
--- NOTE | 2018-12-09 17:30 | XRay Report ---
XR ankle LT min 3V routine CLINICAL HISTORY: pain, ecchymosis, s/p fall COMPARISON STUDY: None. FINDINGS: Plantar and posterior calcaneal spurs are noted. Diffuse soft tissue swelling within the le ft ankle. There is an oblique mildly displaced fracture within the distal fibula. This demonstrates u p to 6 mm of posterior displacement. There is also a small avulsion fracture from the medial talus an d a displaced fracture at the lateral tibia with a 1.5 cm bony fragment demonstrating 8 mm of lateral displacement. There is associated lateral dislocation of the talus in relation to the tibia. IMPRESSION: Bimalleolar left ankle fracture/dislocation. Electronically signed by: Bennie Sung M.D. 12/09/2018 5:29 PM
--- NOTE | 2018-12-09 17:31 | XRay Report ---
XR chest 1V portable HISTORY: weakness COMPARISON: Chest 06/09/2018. FINDINGS: The lungs are clear. Cardiac silhouette is normal in size. No pleural effusions. No pneumot horax. IMPRESSION: No acute process. Electronically signed by: Bennie Sung M.D. 12/09/2018 5:30 PM
[2018-12-09] MEDS ORDERED: MoRPHine SULFATE 4 MG/ML 1 ML CARP\\VIAL IV STA (18:00)
[2018-12-09] MEDS: INSULIN REGULAR 250 UNITS in SODIUM CHLORIDE 0.9% 247.5 ML IV SCH (18:26)
[2018-12-09 18:36] LABS: Partial Thromboplastin Ratio 1.1; Partial Thromboplastin Time 28.8 Seconds (21.0-31.0); Prothrombin Time 10.5 Seconds (9.0-12.0)
[2018-12-09 18:53] LABS: Base Excess VBG -12.5 mEq/L; HCO3 VBG 15 mmol/L; Oxygen Saturation VBG 61.4 %; PCO2 VBG 38 mmHg (38-50); PO2 VBG 34 mmHg
--- NOTE | 2018-12-09 19:17 | XRay Report ---
XR ankle LT min 3V routine CLINICAL HISTORY: post reduction COMPARISON STUDY: Left ankle 12/09/2018. FINDINGS: Interval reduction of the left ankle fracture. There is improved anatomic alignment. There is a 3 mm of lateral displacement remaining within the fractures and tibiotalar joint. Overlying spli nt material obscures fine bony detail. Diffuse soft tissue swelling. IMPRESSION: Improved anatomic alignment status post reduction of the left ankle fracture. Electronically signed by: Bennie Sung M.D. 12/09/2018 7:16 PM
--- NOTE | 2018-12-09 19:20 | History & Physical Report ---
Date of Service December 09, 2018 Assessment & Plan (1) DKA (diabetic ketoacidoses): (2) Acidosis, metabolic: (3) Diabetes mellitus type 1: -Admit to ICU -Patient presenting from home with reports of frequent falls and generalized weakness -In the ED, found to be in DKA with glucose 338, anion gap 15, pH 7.2, HCO3 15 -Patient admits to being noncompliant with insulin regimen -Insulin drip, IVF as per DKA protocol -Continue home dose of p.o. sodium bicarbonate -Close monitoring of electrolytes -case discussed with Dr. Lea (4) ARF (acute renal failure): -Creatinine 4.6 -Likely due to dehydration from DKA, diarrhea, furosemide -Hold furosemide -IVF, follow renal functions -Nephro consult, input appreciated (5) Ankle fracture, left: -Reduced by ED physician -Ortho consult (6) Diarrhea: -Check for C. difficile -Currently no abdominal pain (7) Leukocytosis: -WBC 18 K -Possibly stress response from DKA -Rule out infection by checking for C. difficile, UA (8) Hypertension: -BP controlled, continue amlodipine and propanolol -Holding furosemide due to OK (9) Dyslipidemia: -Continue statin and fenofibrate (10) Anxiety: (11) Depression: -Hold duloxetine due to ARF -Continue pregabalin however at reduced dose due to OK (12) DVT prophylaxis: -SQ heparin History of Present Illness Chief Complaint: Fall, Left Ankle Pain Primary Care Provider: Wiliam Garsia 43 year old female who presents to the ED after a fall and left ankle pain. Patient reports she has been having frequent falls and generalized weakness. Today she fell and had sudden onset of left ankle pain, swelling, and deformity. EMS was called and patient was brought to the ED for further evaluation. Patient admits to being noncompliant with her insulin regimen. She reports she is compliant with her other medications. Patient states she has been having multiple episodes of diarrhea over the past few days as well. She denies abdominal pain, nausea, vomiting, BRBPR, or dark tarry stools. With the falls, she denies associated lightheadedness, dizziness, or syncope. She did not strike her head. She denies chest pain and shortness of breath. No fever or chills. She denies urinary symptoms. In the ED, patient is found to be in DKA with glucose 338, + anion gap, pH 7.2, HCO3 15. Left ankle x-ray shows bimalleolar left ankle fracture/dislocation. Fracture was reduced by ED physician. Patient also received IVF and was started on insulin drip. Allergies Allergy/AdvReac Type Severity Reaction Status Date / Time bee venom protein (honey bee) Allergy Intermediate RED, SHORT Verified 12/09/18 17:46 OF BREATH No Known Drug Allergies Allergy Unknown NKDA Verified 12/09/18 17:46 Home Medications Home Medications Medication Instructions Recorded Confirmed Type Tresiba FlexTouch U-100 120 unit SUBCUT HS 12/28/17 12/09/18 History albuterol sulfate 2 puff INHALATION Q4H PRN 12/28/17 12/09/18 History amlodipine 10 mg PO QAM 12/28/17 12/09/18 History atorvastatin 20 mg PO HS 12/28/17 12/09/18 History duloxetine [Cymbalta] 60 mg PO QPM 12/28/17 12/09/18 History esomeprazole magnesium 40 mg PO QAM 12/28/17 12/09/18 History fenofibrate 160 mg PO HS 12/28/17 12/09/18 History insulin lispro [Humalog U-100 30 unit SUBCUT TID 12/28/17 12/09/18 History Insulin] omega [id number] oil [Fish Oil] 1 tab PO BID 12/28/17 12/09/18 History pregabalin [Lyrica] 100 mg PO TID 12/28/17 12/09/18 History propranolol 120 mg PO BID 12/28/17 12/09/18 History sodium bicarbonate 3 tab PO QID 12/28/17 12/09/18 History magnesium chloride [Mag 64] 64 mg PO BID #60 tab 12/31/17 12/09/18 Rx ondansetron [Zofran ODT] 4 mg PO Q6H PRN #90 tab 01/10/18 12/09/18 Rx baclofen 10 mg PO TID PRN 12/09/18 12/09/18 History fluticasone propionate [Flonase 2 spray INTRANASAL DAILY 12/09/18 12/09/18 History Allergy Relief] furosemide [Lasix] 20 mg PO DAILY 12/09/18 12/09/18 History pioglitazone [Actos] 30 mg PO DAILY 12/09/18 12/09/18 History prochlorperazine maleate 10 mg PO TID PRN 12/09/18 12/09/18 History [Compazine] Past Med/Surg History Medical History Depression (Chronic) Hx of Clostridium difficile infection (Resolved) 2012 - TREATED History of renal dialysis (Resolved) - [facility] - ARF 2/2 DKA Kidney stones (Chronic) History of endometriosis (Chronic) Anxiety (Chronic) Fracture of rib of right side (Resolved) Anemia of chronic disease (Chronic) Chronic nausea (Chronic) Suppurative hidradenitis (Chronic) Hypertension (Chronic) GERD (gastroesophageal reflux disease) (Chronic) Metabolic acidosis (Chronic) "recurrent" Diabetes mellitus type 1 (Chronic) HISTORY MULTIPLE EPISODES DKA Dyslipidemia (Chronic) Surgical History History of ileostomy (Resolved) History of reversal of ileostomy (Chronic) History of lumbar spinal fusion (Chronic) History of rotator cuff surgery (Chronic) RT Hx of tracheostomy (Resolved) R/T COMPLICATIONS AFTER ILEOSTOMY REVERSAL SURGERY IN 2011; HAS SINCE BEEN REVERSED 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" Status post cholecystectomy (Chronic) "cholelithiasis" Family History Mother Diabetes Social History Preferred Language: [place] Communication Ability: Effective Visual Aid Expert Required: No Beliefs That Will Affect Care: None Current Living Situation: Family Other Information That Helps Us Care for You: No Feels Safe at Home: Yes Safety Concerns: Feels Safe At This Time Smoking Status: Current every day smoker Tobacco Type: cigarettes ; Cigarettes Per Day: 5 ; Do You Dip or Chew Tobacco: No ; Second Hand Exposure: No ; Tobacco Cessation Education Requested by Patient: No Hx Alcohol Use: Yes Alcohol Intake Frequency: Holidays/Special Occasions Hx Substance Use: No Review of Systems Review of Systems: ROS per HPI, all other systems reviewed and negative Physical Exam Constitutional: WD/WN, vitals as above Eyes: PERRL, conjunctivae normal, anicteric sclerae ENMT: external ear and nose normal, oropharynx normal Respiratory: normal respiratory effort, lungs clear to auscultation Cardiovascular: Rate/Rhythm: regular rate and regular rhythm Vessels: normal peripheral pulses Extremities: no edema Gastrointestinal (Abdomen): normal bowel sounds, soft, nontender, no hepatosplenomegaly Musculoskeletal: Extremities: + lower leg abnormality (Significant edema and mild ecchymosis noted to left ankle, externally rotated) Left; no cyanosis and no clubbing Skin: no rashes, warm and dry Neurologic: PERRL, EOMI, accommodation nl, no face palsy, no dysarthria Psychiatric: Orientation: oriented x 3; + not alert (Occasionally falls asleep during exam, arouses easily) Results & Data Vital Signs (Past 12 Hours) Vital Signs Temp Pulse Pulse Resp BP BP Pulse Ox 12/09/18 19:09 79 16 146/100 H 100 12/09/18 19:01 80 17 146/100 H 100 12/09/18 18:30 74 14 145/86 H 98 12/09/18 17:46 81 19 120/84 99 12/09/18 16:28 98 12/09/18 15:57 36.8 C 80 20 146/97 H 97 Laboratory Results Short CBC 12/09/18 12/09/18 Range/Units 16:19 16:19 WBC 18.38 H (4.8-10.8) K/uL Hgb 15.0 (12.0-16.0) g/dL Hct 44.5 (37-47) % Plt Count 311 (130-400) K/uL Glucose 338 H* (70-99) mg/dl BMP 12/09/18 16:19 Sodium 130 L Potassium 5.4 H Chloride 100 Carbon Dioxide 15 L BUN 61 H Creatinine 4.67 H* Glucose 338 H* Calcium 9.5 Cardiac Enzymes 12/09/18 Range/Units 16:19 Troponin I < 0.015 (0-0.045) ng/ml Liver Function 12/09/18 Range/Units 16:19 Total Bilirubin 0.4 (0.2-1) mg/dl AST 35 (15-37) U/L ALT 37 (12-78) U/L Alkaline Phosphatase 139 H (45-117) U/L Albumin 3.8 (3.4-5.0) gm/dl Diagnostic Findings LEFT ANKLE X-RAY IMPRESSION: Bimalleolar left ankle fracture/dislocation. CHEST X-RAY IMPRESSION: No acute process. HEAD CT IMPRESSION: No acute intracranial abnormality. Right frontal scalp swelling. Code Status & VTE Plan VTE Prophylaxis Plan VTE Prophylaxis will be ordered: Yes Supervising Physician Co-Signing Physician Notes Care coordinated with Maida MCKEON. Agree with able note. Patient seen and examined. Please refer to her notes for full details. Vital signs reviewed. Physical exam: General exam: Drowsy. Not in acute distress. CVS: S1 and S2 heard, regular rate and rhythm, no murmurs. RS: Clear to auscultation, no wheezing or crackles. ABD: Soft, bowel sounds present, nontender, no distention. MAKEUP ARTIST: Nonfocal. EXT: Left Lower Extremity in Dressing Labs: Reviewed. Assessment and plan: 43F with hx of diabetes and acidosis on bicarbonate pills presents with dizziness and fall and left ankle fx and found to be in DKA, metabolic acidosis and OK. Patient received pain meds for ankle fx reduction. Drowsy. Says she felt dizzy and fell down. Having diarrhea for last 12-3 days. Denies r abdominal pain or nausea/vomiting. DKA DAk protocol with iv insulin and aggressive fluids follow labs as per protocol change of fluids as per protocal close monitor in ICU Metabolic acidosis on bicarb tabs Nephrology consulted' critical care on board. OK Cr 4.6 mostly from DKA holding lasix MAy need ct abd/pelvis as had hx of kidney stones on fluids close followup of labs Nephrology consulted Left ankle fx reduced in er ortho consult Other diagnosis and plan of care as per Maida MCKEON. Mayur rowley MD. (1) Diabetes mellitus type 1 Diabetes mellitus complication detail: with chronic kidney disease Diabetes mellitus complication status: with kidney complications (2) Hypertension Hypertension type: unspecified Qualified Code(s): I10 - Essential (primary) hypertension
--- NOTE | 2018-12-09 19:29 | XRay Report ---
XR ankle LT 2V CLINICAL HISTORY: POST REDUCTION COMPARISON STUDY: Left ankle 12/09/2018. FINDINGS: Overlying splint material obscures fine bony detail. The initial image demonstrates progres sive lateral displacement/dislocation within the left ankle. There is a bony fragment along the media l joint space which measures 7 mm. The second image demonstrates near-anatomic alignment. IMPRESSION: Near anatomic alignment status post reduction of the left ankle fracture/dislocation. Electronically signed by: Bennie Sung M.D. 12/09/2018 7:27 PM
[2018-12-09] MEDS ORDERED: LACTATED RINGER'S 1,000 ML IV SCH (19:45)
[2018-12-09] MEDS ORDERED: ICU PROTOCOL FOR HYPERGLYCEMIA PRN (19:45)
[2018-12-09] MEDS ORDERED: INSULIN REGULAR 250 UNITS in SODIUM CHLORIDE 0.9% 247.5 ML IV SCH (19:45)
[2018-12-09] MEDS ORDERED: PHARMACY GLYCEMIC MGMT CONSULT PRN (20:16)
--- NOTE | 2018-12-09 20:22 | Critical Care Consultation ---
Date of Consultation December 09, 2018 Assessment & Plan (1) Acidosis, metabolic: Reason Critically Ill: 43-year-old female with DKA PLAN: Neuro: Pain control -Fentanyl IV -End-tidal CO2 monitoring given acute kidney injury Acute encephalopathy -Toxic metabolic, with likely contribution of analgesics -History of elevated ammonia check with a.m. labs Resp: End-tidal CO2 monitoring -History of significant respiratory insufficiency requiring intubation CV: History hypertension Fluids/Renal: Presumptive metabolic acidosis -Continue to trend Diabetic ketoacidosis -K protocol Acute kidney injury -Baseline creatinine approximately 1 -History of requiring short-term hemodialysis previously Hyperkalemia -Resolved with treatment of DKA Pseudohyponatremia ID: History of C. difficile status post colon resection -Since there was a re-anastomosis of the colon, she will likely shed C. difficile unclear if this represents active infection -Given colon resection she will be at increased risk of loose stools a s she is lost significant absorptive surface -Afebrile, no indication for antibiotics at this time -If patient becomes febrile or does not improve low threshold to obtain blood cultures -Consideration given to C. difficile, would be rather atypical for significant C. difficile infection given history of colonic resection. GI/Nutrition: Clear diet at this time -Patient has history of rapid decompensation would not clear for operating room until further out from metabolic derangements Heme: Anemia at baseline DVT prophylaxis: Heparin Endocrine: DKA protocol ordered Vascular access: Peripheral IVs: Consented for central venous access as well as arterial line Code Status: Full code I have personally spent 80 minutes of critical care time in the direct manage ment of this patient. This is a life/limb threatening event. This includes time spent evaluating patient, direct bedside care, chart review, placing orders, interpretation of diagnostic studies, discussion with consultants, patient, and/or family members regarding treatment decisions, as well as other required patient management activities. This time is exclusive of all separately billable procedures, and teaching time and separate from and in addition to any other critical care service time. Present on Admission?: Yes (2) Ankle fracture, left: Present on Admission?: Yes (3) Diarrhea: Present on Admission?: Yes (4) ARF (acute renal failure): Present on Admission?: Yes (5) DKA (diabetic ketoacidoses): Present on Admission?: Yes (6) Hx of Clostridium difficile infection: Present on Admission?: Yes (7) History of reversal of ileostomy: Present on Admission?: Yes History of Present Illness Attending Physician: Romel Kwan MD Patient is a 43-year-old female with a very significant past medical history of type 1 diabetes, previous staphylococcal bacteremia, previous severe sepsis secondary to C. difficile colitis status post close colectomy with frequent episodes of diabetic ketoacidosis and recurrent toxic metabolic encephalopathy who presented to the emergency department after a fall at home with a subsequent acute bimalleolar ankle fracture with dislocation. On laboratory analysis she was found to be significantly acidotic and hyperglycemic. The patient also had waxing and waning mental status which has improved since her arrival in the emergency department. She has a previous history of rapid decompensation and I been asked to evaluate the patient for diabetic ketoacidosis. Patient is not regimented and taking her insulin medication. She reports that approximately 2 weeks ago she was on antibiotics for a upper respiratory tract infection in the previous last 2 days she has had multiple bouts of diarrhea. She has known C. difficile colitis and subsequent toxin results are usually positive. Allergies Allergy/AdvReac Type Severity Reaction Status Date / Time bee venom protein (honey bee) Allergy Intermediate RED, SHORT Verified 12/09/18 17:46 OF BREATH No Known Drug Allergies Allergy Unknown NKDA Verified 12/09/18 17:46 Home Medications Home Medications Medication Instructions Recorded Confirmed Type Tresiba FlexTouch U-100 120 unit SUBCUT HS 12/28/17 12/09/18 History albuterol sulfate 2 puff INHALATION Q4H PRN 12/28/17 12/09/18 History amlodipine 10 mg PO QAM 12/28/17 12/09/18 History atorvastatin 20 mg PO HS 12/28/17 12/09/18 History duloxetine [Cymbalta] 60 mg PO QPM 12/28/17 12/09/18 History esomeprazole magnesium 40 mg PO QAM 12/28/17 12/09/18 History fenofibrate 160 mg PO HS 12/28/17 12/09/18 History insulin lispro [Humalog U-100 30 unit SUBCUT TID 12/28/17 12/09/18 History Insulin] omega [id number]-fish oil [Fish Oil] 1 tab PO BID 12/28/17 12/09/18 History pregabalin [Lyrica] 100 mg PO TID 12/28/17 12/09/18 History propranolol 120 mg PO BID 12/28/17 12/09/18 History sodium bicarbonate 3 tab PO QID 12/28/17 12/09/18 History magnesium chloride [Mag 64] 64 mg PO BID #60 tab 12/31/17 12/09/18 Rx ondansetron [Zofran ODT] 4 mg PO Q6H PRN #90 tab 01/10/18 12/09/18 Rx baclofen 10 mg PO TID PRN 12/09/18 12/09/18 History fluticasone propionate [Flonase 2 spray INTRANASAL DAILY 12/09/18 12/09/18 History Allergy Relief] furosemide [Lasix] 20 mg PO DAILY 12/09/18 12/09/18 History pioglitazone [Actos] 30 mg PO DAILY 12/09/18 12/09/18 History prochlorperazine maleate 10 mg PO TID PRN 12/09/18 12/09/18 History [Compazine] Patient History Medical History Depression (Chronic) Hx of Clostridium difficile infection (Resolved) 2012 - TREATED History of renal dialysis (Resolved) - [facility] - ARF 2/2 DKA Kidney stones (Chronic) History of endometriosis (Chronic) Anxiety (Chronic) Fracture of rib of right side (Resolved) Anemia of chronic disease (Chronic) Chronic nausea (Chronic) Suppurative hidradenitis (Chronic) Hypertension (Chronic) GERD (gastroesophageal reflux disease) (Chronic) Metabolic acidosis (Chronic) "recurrent" Diabetes mellitus type 1 (Chronic) HISTORY MULTIPLE EPISODES DKA Dyslipidemia (Chronic) Surgical History History of ileostomy (Resolved) History of reversal of ileostomy (Chronic) History of lumbar spinal fusion (Chronic) History of rotator cuff surgery (Chronic) RT Hx of tracheostomy (Resolved) R/T COMPLICATIONS AFTER ILEOSTOMY REVERSAL SURGERY IN 2011; HAS SINCE BEEN REVERSED 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" Status post cholecystectomy (Chronic) "cholelithiasis" Family History Mother Diabetes Social History Preferred Language: Italian Communication Ability: Effective [employer] Required: No Beliefs That Will Affect Care: None Current Living Situation: Family Other Information That Helps Us Care for You: No Feels Safe at Home: Yes Safety Concerns: Feels Safe At This Time Smoking Status: Current every day smoker Tobacco Type: cigarettes ; Cigarettes Per Day: 5 ; Do You Dip or Chew Tobacco: No ; Second Hand Exposure: No ; Tobacco Cessation Education Requested by Patient: No Hx Alcohol Use: Yes Alcohol Intake Frequency: Holidays/Special Occasions Hx Substance Use: No Review of Systems Review of Systems: A 10 point review of systems has been obtained and is otherwise negative. Respiratory: Cough approximately 2 weeks ago treated with antibiotics as an outpatient Gastrointestinal: + diarrhea/loose stools Multiple episodes of diarrhea Genitourinary: No burning with urination, increased frequency Physical Exam Physical Exam: General: Well-nourished female in no acute distress I have reviewed the recorded vital signs Neurological: RASS score: 0, Moves all 4 extremities, Psychological: GCS 15 following complex commands Eyes: Pupils are equal, round and reactive to light, anicteric sclera. Symmetrical lids. HENT: Oropharynx Clear, dry mucous membranes. Neck: Supple. Symmetric. trachea midline. No thyromegaly. Cardiovascular: Normal peripheral perfusion. Distal pulses and capillary refill intact. No JVD. Respiratory: Respirations are quick but unlabored, no accessory muscle use. Breath sounds are equal. Gastrointestinal: Soft. Non-distended. Lymphatic: No cervical lymphadenopathy. Musculoskeletal: Obvious deformity to left lower extremity Results & Data Vital Signs (Past 12 Hours) Vital Signs Temp Pulse Pulse Resp BP BP Pulse Ox 12/09/18 19:48 36.4 C L 80 20 108/69 97 12/09/18 19:09 79 16 146/100 H 100 12/09/18 19:01 80 17 146/100 H 100 12/09/18 18:30 74 14 145/86 H 98 12/09/18 17:46 81 19 120/84 99 12/09/18 16:28 98 12/09/18 15:57 36.8 C 80 20 146/97 H 97 Laboratory Results 12/09/18 12/09/18 12/09/18 Range/Units 19:04 18:18 17:58 WBC (4.8-10.8) K/uL RBC (4.2-5.4) M/uL Hgb (12.0-16.0) g/dL Hct (37-47) % MCV (80-100) fL MCH (25-34) pg MCHC (32-36) g/dL RDW Std Deviation (36.4-46.3) fL RDW Coeff of Chidi (11.5-14.5) % Plt Count (130-400) K/uL MPV (7.4-10.4) fL Immature Gran % (Auto) % Neut % (Auto) % Lymph % (Auto) % Custer % (Auto) % Eos % (Auto) % Baso % (Auto) % Immature Gran # (Auto) (0.00-0.02) K/uL Neut # (Auto) (1.4-6.5) K/uL Lymph # (Auto) (1.2-3.4) K/uL Custer # (Auto) (0.11-0.59) K/uL Eos # (Auto) (0-0.5) K/uL Baso # (Auto) (0-0.2) K/uL PT INR APTT (21.0-31.0) Seconds PTT Ratio VBG pH VBG pCO2 VBG pO2 VBG HCO3 VBG O2 Saturation VBG Base Excess Barometric Pressure Sodium (136-145) mmol/L Potassium (3.5-5.1) mmol/L Chloride (98-107) mmol/L Carbon Dioxide (21-32) mmol/L Anion Gap (3-11) BUN (7-18) mg/dl Creatinine (0.6-1.2) mg/dl Est Cr Clr Drug Dosing ml/min Est GFR ( Amer) Est GFR (Non-Af Amer) BUN/Creatinine Ratio (10-20) Glucose (70-99) mg/dl POC Glucose 303 H* 334 H* (70-99) Lactate (0.4-2.0) mmol/L Calcium (8.5-10.1) mg/dl Phosphorus (2.5-4.9) mg/dl Magnesium Cancelled (1.8-2.4) mg/dl Total Bilirubin (0.2-1) mg/dl AST (15-37) U/L ALT (12-78) U/L Alkaline Phosphatase (45-117) U/L Troponin I (0-0.045) ng/ml Total Protein (6.4-8.2) gm/dl Albumin (3.4-5.0) gm/dl Globulin (2.5-4.0) gm/dl Albumin/Globulin Ratio (0.9-2) Beta-Hydroxybutyric Acd (0.2-2.81) mg/dl TSH (0.300-4.500) uIu/ml Specimen Hemolysis 12/09/18 12/09/18 12/09/18 Range/Units 17:58 17:44 17:28 WBC (4.8-10.8) K/uL RBC (4.2-5.4) M/uL Hgb (12.0-16.0) g/dL Hct (37-47) % MCV (80-100) fL MCH (25-34) pg MCHC (32-36) g/dL RDW Std Deviation (36.4-46.3) fL RDW Coeff of Chidi (11.5-14.5) % Plt Count (130-400) K/uL MPV (7.4-10.4) fL Immature Gran % (Auto) % Neut % (Auto) % Lymph % (Auto) % Custer % (Auto) % Eos % (Auto) % Baso % (Auto) % Immature Gran # (Auto) (0.00-0.02) K/uL Neut # (Auto) (1.4-6.5) K/uL Lymph # (Auto) (1.2-3.4) K/uL Custer # (Auto) (0.11-0.59) K/uL Eos # (Auto) (0-0.5) K/uL Baso # (Auto) (0-0.2) K/uL PT 10.5 INR 1.0 APTT 28.8 (21.0-31.0) Seconds PTT Ratio 1.1 VBG pH 7.20 L VBG pCO2 38 VBG pO2 34 VBG HCO3 15 VBG O2 Saturation 61.4 VBG Base Excess -12.5 Barometric Pressure Sodium (136-145) mmol/L Potassium (3.5-5.1) mmol/L Chloride (98-107) mmol/L Carbon Dioxide (21-32) mmol/L Anion Gap (3-11) BUN (7-18) mg/dl Creatinine (0.6-1.2) mg/dl Est Cr Clr Drug Dosing ml/min Est GFR ( Amer) Est GFR (Non-Af Amer) BUN/Creatinine Ratio (10-20) Glucose (70-99) mg/dl POC Glucose (70-99) Lactate 0.8 (0.4-2.0) mmol/L Calcium (8.5-10.1) mg/dl Phosphorus (2.5-4.9) mg/dl Magnesium (1.8-2.4) mg/dl Total Bilirubin (0.2-1) mg/dl AST (15-37) U/L ALT (12-78) U/L Alkaline Phosphatase (45-117) U/L Troponin I (0-0.045) ng/ml Total Protein (6.4-8.2) gm/dl Albumin (3.4-5.0) gm/dl Globulin (2.5-4.0) gm/dl Albumin/Globulin Ratio (0.9-2) Beta-Hydroxybutyric Acd (0.2-2.81) mg/dl TSH (0.300-4.500) uIu/ml Specimen Hemolysis 12/09/18 12/09/18 12/09/18 Range/Units 17:28 17:25 17:18 WBC (4.8-10.8) K/uL RBC (4.2-5.4) M/uL Hgb (12.0-16.0) g/dL Hct (37-47) % MCV (80-100) fL MCH (25-34) pg MCHC (32-36) g/dL RDW Std Deviation (36.4-46.3) fL RDW Coeff of Chidi (11.5-14.5) % Plt Count (130-400) K/uL MPV (7.4-10.4) fL Immature Gran % (Auto) % Neut % (Auto) % Lymph % (Auto) % Custer % (Auto) % Eos % (Auto) % Baso % (Auto) % Immature Gran # (Auto) (0.00-0.02) K/uL Neut # (Auto) (1.4-6.5) K/uL Lymph # (Auto) (1.2-3.4) K/uL Custer # (Auto) (0.11-0.59) K/uL Eos # (Auto) (0-0.5) K/uL Baso # (Auto) (0-0.2) K/uL PT INR APTT (21.0-31.0) Seconds PTT Ratio VBG pH Cancelled Cancelled VBG pCO2 Cancelled VBG pO2 Cancelled VBG HCO3 Cancelled VBG O2 Saturation Cancelled VBG Base Excess Cancelled Barometric Pressure Cancelled Sodium (136-145) mmol/L Potassium (3.5-5.1) mmol/L Chloride (98-107) mmol/L Carbon Dioxide (21-32) mmol/L Anion Gap (3-11) BUN (7-18) mg/dl Creatinine (0.6-1.2) mg/dl Est Cr Clr Drug Dosing ml/min Est GFR ( Amer) Est GFR (Non-Af Amer) BUN/Creatinine Ratio (10-20) Glucose (70-99) mg/dl POC Glucose (70-99) Lactate (0.4-2.0) mmol/L Calcium (8.5-10.1) mg/dl Phosphorus (2.5-4.9) mg/dl Magnesium Cancelled (1.8-2.4) mg/dl Total Bilirubin (0.2-1) mg/dl AST (15-37) U/L ALT (12-78) U/L Alkaline Phosphatase (45-117) U/L Troponin I (0-0.045) ng/ml Total Protein (6.4-8.2) gm/dl Albumin (3.4-5.0) gm/dl Globulin (2.5-4.0) gm/dl Albumin/Globulin Ratio (0.9-2) Beta-Hydroxybutyric Acd (0.2-2.81) mg/dl TSH (0.300-4.500) uIu/ml Specimen Hemolysis 12/09/18 12/09/18 12/09/18 Range/Units 16:28 16:19 16:19 WBC (4.8-10.8) K/uL RBC (4.2-5.4) M/uL Hgb (12.0-16.0) g/dL Hct (37-47) % MCV (80-100) fL MCH (25-34) pg MCHC (32-36) g/dL RDW Std Deviation (36.4-46.3) fL RDW Coeff of Chidi (11.5-14.5) % Plt Count (130-400) K/uL MPV (7.4-10.4) fL Immature Gran % (Auto) % Neut % (Auto) % Lymph % (Auto) % C[place] % (Auto) % Eos % (Auto) % Baso % (Auto) % Immature Gran # (Auto) (0.00-0.02) K/uL Neut # (Auto) (1.4-6.5) K/uL Lymph # (Auto) (1.2-3.4) K/uL Custer # (Auto) (0.11-0.59) K/uL Eos # (Auto) (0-0.5) K/uL Baso # (Auto) (0-0.2) K/uL PT Cancelled INR Cancelled APTT (21.0-31.0) Seconds PTT Ratio VBG pH VBG pCO2 VBG pO2 VBG HCO3 VBG O2 Saturation VBG Base Excess Barometric Pressure Sodium 130 L (136-145) mmol/L Potassium 5.4 H (3.5-5.1) mmol/L Chloride 100 (98-107) mmol/L Carbon Dioxide 15 L (21-32) mmol/L Anion Gap 15.0 H (3-11) BUN 61 H (7-18) mg/dl Creatinine 4.67 H* (0.6-1.2) mg/dl Est Cr Clr Drug Dosing 16.4 ml/min Est GFR ( Amer) 12.2 Est GFR (Non-Af Amer) 10.5 BUN/Creatinine Ratio 13.0 (10-20) Glucose 338 H* (70-99) mg/dl POC Glucose 343 H* (70-99) Lactate (0.4-2.0) mmol/L Calcium 9.5 (8.5-10.1) mg/dl Phosphorus 4.4 (2.5-4.9) mg/dl Magnesium 2.1 (1.8-2.4) mg/dl Total Bilirubin 0.4 (0.2-1) mg/dl AST 35 (15-37) U/L ALT 37 (12-78) U/L Alkaline Phosphatase 139 H (45-117) U/L Troponin I < 0.015 (0-0.045) ng/ml Total Protein 8.6 H (6.4-8.2) gm/dl Albumin 3.8 (3.4-5.0) gm/dl Globulin 4.8 H (2.5-4.0) gm/dl Albumin/Globulin Ratio 0.8 L (0.9-2) Beta-Hydroxybutyric Acd (0.2-2.81) mg/dl TSH 1.510 (0.300-4.500) uIu/ml Specimen Hemolysis 12/09/18 Range/Units 16:19 WBC 18.38 H (4.8-10.8) K/uL RBC 6.01 H (4.2-5.4) M/uL Hgb 15.0 (12.0-16.0) g/dL Hct 44.5 (37-47) % MCV 74.0 L (80-100) fL MCH 25.0 (25-34) pg MCHC 33.7 (32-36) g/dL RDW Std Deviation 43.9 (36.4-46.3) fL RDW Coeff of Chidi 16.4 H (11.5-14.5) % Plt Count 311 (130-400) K/uL MPV 10.1 (7.4-10.4) fL Immature Gran % (Auto) 0.3 % Neut % (Auto) 85.1 % Lymph % (Auto) 5.7 % Custer % (Auto) 8.7 % Eos % (Auto) 0.1 % Baso % (Auto) 0.1 % Immature Gran # (Auto) 0.06 H (0.00-0.02) K/uL Neut # (Auto) 15.66 H (1.4-6.5) K/uL Lymph # (Auto) 1.04 L (1.2-3.4) K/uL Custer # (Auto) 1.59 H (0.11-0.59) K/uL Eos # (Auto) 0.02 (0-0.5) K/uL Baso # (Auto) 0.01 (0-0.2) K/uL PT INR APTT (21.0-31.0) Seconds PTT Ratio VBG pH VBG pCO2 VBG pO2 VBG HCO3 VBG O2 Saturation VBG Base Excess Barometric Pressure Sodium (136-145) mmol/L Potassium (3.5-5.1) mmol/L Chloride (98-107) mmol/L Carbon Dioxide (21-32) mmol/L Anion Gap (3-11) BUN (7-18) mg/dl Creatinine (0.6-1.2) mg/dl Est Cr Clr Drug Dosing ml/min Est GFR ( Amer) Est GFR (Non-Af Amer) BUN/Creatinine Ratio (10-20) Glucose (70-99) mg/dl POC Glucose (70-99) Lactate (0.4-2.0) mmol/L Calcium (8.5-10.1) mg/dl Phosphorus (2.5-4.9) mg/dl Magnesium (1.8-2.4) mg/dl Total Bilirubin (0.2-1) mg/dl AST (15-37) U/L ALT (12-78) U/L Alkaline Phosphatase (45-117) U/L Troponin I (0-0.045) ng/ml Total Protein (6.4-8.2) gm/dl Albumin (3.4-5.0) gm/dl Globulin (2.5-4.0) gm/dl Albumin/Globulin Ratio (0.9-2) Beta-Hydroxybutyric Acd (0.2-2.81) mg/dl TSH (0.300-4.500) uIu/ml Specimen Hemolysis PG Care Time/CCT Total # of Minutes Spent Total Time Spent with Patient: Total time spent is greater than 50% in coordination of care (as documented) at patient's floor/unit and/or counseling patient: Critical Care Time: Yes Total Critical Care Time: 80 (1) DKA (diabetic ketoacidoses) Diabetes mellitus complication detail: without coma Diabetes mellitus type: type 1 Qualified Code(s): E10.10 - Type 1 diabetes mellitus with ketoacidosis without coma (2) ARF (acute renal failure) Acute renal failure type: unspecified Qualified Code(s): N17.9 - Acute kidney failure, unspecified (3) Diarrhea Diarrhea type: unspecified type Qualified Code(s): R19.7 - Diarrhea, unspecified (4) Ankle fracture, left Encounter type: initial encounter Fracture type: closed Qualified Code(s): S82.892A - Other fracture of left lower leg, initial encounter for closed fra cture
--- NOTE | 2018-12-09 20:36 | Emergency Department Note ---
Entered by Rai Craven acting as a scribe for History of Present Illness General Chief complaint: Fall Time Seen by Provider: 12/09/18 15:57 Source: patient History of Present Illness Provider complaint: Fall Onset (ago): day(s) 3 Location: head, ankle and left Severity: moderate Maximum Pain Intensity: 5 Current Pain Intensity: 5 Relieved By: + none Exacerbated By: + none Associated symptoms: + shortness of breath and + weakness; no syncope Treatments prior to arrival: none The patient is a 43 year old female w/ PMHx of diabetes who presents to the ED w/ CC of illness beginning three days ago. The patient kept having to go to the bathroom last night but kept falling onto her knees due to weakness. The patient fell today while her was a t work and twisted her left ankle. She did not pass out. Per the , the patient has gone into respiratory failure multiple times. The patient took her insulin today and she is a smoker. The patient has no changes in her allergies or medications. The patient rates her pain as a 5 out of 10 in severity. Home Medications Home Medications Medication Instructions Recorded Confirmed Type Tresiba FlexTouch U-100 120 unit SUBCUT HS 12/28/17 12/09/18 History albuterol sulfate 2 puff INHALATION Q4H PRN 12/28/17 12/09/18 History amlodipine 10 mg PO QAM 12/28/17 12/09/18 History atorvastatin 20 mg PO HS 12/28/17 12/09/18 History duloxetine [Cymbalta] 60 mg PO QPM 12/28/17 12/09/18 History esomeprazole magnesium 40 mg PO QAM 12/28/17 12/09/18 History fenofibrate 160 mg PO HS 12/28/17 12/09/18 History insulin lispro [Humalog U-100 30 unit SUBCUT TID 12/28/17 12/09/18 History Insulin] omega 1-eii-ryj-fish oil [Fish Oil] 1 tab PO BID 12/28/17 12/09/18 History pregabalin [Lyrica] 100 mg PO TID 12/28/17 12/09/18 History propranolol 120 mg PO BID 12/28/17 12/09/18 History sodium bicarbonate 3 tab PO QID 12/28/17 12/09/18 History magnesium chloride [Mag 64] 64 mg PO BID #60 tab 12/31/17 12/09/18 Rx ondansetron [Zofran ODT] 4 mg PO Q6H PRN #90 tab 01/10/18 12/09/18 Rx baclofen 10 mg PO TID PRN 12/09/18 12/09/18 History fluticasone propionate [Flonase 2 spray INTRANASAL DAILY 12/09/18 12/09/18 History Allergy Relief] furosemide [Lasix] 20 mg PO DAILY 12/09/18 12/09/18 History pioglitazone [Actos] 30 mg PO DAILY 12/09/18 12/09/18 History prochlorperazine maleate 10 mg PO TID PRN 12/09/18 12/09/18 History [Compazine] Allergies Allergy/AdvReac Type Severity Reaction Status Date / Time bee venom protein (honey bee) Allergy Intermediate RED, SHORT Verified 12/09/18 17:46 OF BREATH No Known Drug Allergies Allergy Unknown NKDA Verified 12/09/18 17:46 Past Med/Surg History Medical History Depression (Chronic) Hx of Clostridium difficile infection (Resolved) 2012 - TREATED History of renal dialysis (Resolved) - [facility] - ARF 2/2 DKA Kidney stones (Chronic) History of endometriosis (Chronic) Anxiety (Chronic) Fracture of rib of right side (Resolved) Anemia of chronic disease (Chronic) Chronic nausea (Chronic) Suppurative hidradenitis (Chronic) Hypertension (Chronic) GERD (gastroesophageal reflux disease) (Chronic) Metabolic acidosis (Chronic) "recurrent" Diabetes mellitus type 1 (Chronic) HISTORY MULTIPLE EPISODES DKA Dyslipidemia (Chronic) Surgical History History of ileostomy (Resolved) History of reversal of ileostomy (Chronic) History of lumbar spinal fusion (Chronic) History of rotator cuff surgery (Chronic) RT Hx of tracheostomy (Resolved) R/T COMPLICATIONS AFTER ILEOSTOMY REVERSAL SURGERY IN 2011; HAS SINCE BEEN REVERSED 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" Status post cholecystectomy (Chronic) "cholelithiasis" Family History Mother Diabetes Social History Preferred Language: Yoruba Communication Ability: Effective Airborne Operations Superintendent Required: No Beliefs That Will Affect Care: None Current Living Situation: Family Other Information That Helps Us Care for You: No Feels Safe at Home: Yes Safety Concerns: Feels Safe At This Time Smoking Status: Current every day smoker Tobacco Type: cigarettes ; Cigarettes Per Day: 5 ; Do You Dip or Chew Tobacco: No ; Second Hand Exposure: No ; Tobacco Cessation Education Requested by Patient: No Hx Alcohol Use: Yes Alcohol Intake Frequency: Holidays/Special Occasions Hx Substance Use: No Review of Systems See HPI for pertinent positives & negatives. and A total of 10 systems reviewed and were otherwise negative Physical Exam Vital Signs Vital Signs - 24 hr 12/09/18 15:57 12/09/18 16:28 12/09/18 17:46 Temperature 36.8 C Temperature Source Oral Sepsis Recent Fever Within 48 Hours No Sepsis New/Unexplained Change in Mental Status No Sepsis Action Taken by Nursing No Action Required Pulse Rate 80 81 Pulse Rate from SpO2 Sensor 75 Respiratory Rate 20 19 Blood Pressure 146/97 H 120/84 Blood Pressure Mean 113 96 Pulse Oximetry 97 98 99 Oxygen Delivery Method Room Air Room Air GENERAL: Moderate distress, well noursihed. EYE EXAM: Normal conjunctiva. PERRL, no anisocoria and EOM's grossly intact w/o pain. OROPHARYNX: Moist mucous membranes. Grossly normal dentition. NECK: Supple, no nuchal rigidity, no adenopathy, non-tender. No signs of meningismus. LUNGS: Clear to auscultation. Normal chest wall mechanics. HEART: NSR, no MRG. ABDOMEN: Abdomen soft, non-tender, normo-active bowel sounds, no masses, no rebound or guarding. BACK: No CVA TTP. SKIN: No rashes and no bruising. UPPER EXTREMITIES: Upper extremities move with no issues. LOWER EXTREMITIES: Decreased ROM in the left lower extremity secondary to pain. Can move the right lower extremity with no issues. Ecchymosis and pain to the left ankle w/ deformity at ankle, compartment soft and vascularly intact. Abrasion to bilateral knees. NEURO EXAM: Opens eyes to voice, cranial nerves II-XII grossly intact, normal speech, intermittently awake, GCS 14, follows commands, moves all 4 extremities on command w/ only limited range of motion of the left lower extremity secondary to pain. Procedures Orthopedic Fracture Reduction Fracture #1: Time Out Performed: Yes Side: left Fracture Reduction Location: other (ankle, bimalleolar) Analgesia: other (morphine) Technique: direct manipulation and traction/counter-traction Post Reduction X-rays Demonstrate: acceptable reduction Post-reduction neuro exam: intact Post-reduction vascular exam: intact Splint Applied: Yes Patient Tolerated Procedure: well Orthopedic Joint Reduction Joint #1: Time Out Performed: Yes Side: left Joint Reduction Location: ankle Analgesia: other (morphine) Shoulder Technique Used (if applicable): traction/counter-traction Post-reduction neuro exam: intact Post-reduction vascular: intact Post Reduction X-Ray Obtained: Yes Post Reduction X-Ray Results: reduced Splint Applied: Yes Patient Tolerated Procedure: well Course 1616: Past Medical records reviewed. The patient was seen in room C2B, a physical examination was performed. 1643: Point of care glucose is 340. 1753: I spoke to LINDA Lopez, about the patients case and she agreed to accept for further evaluation. 1828: I wpoke with Dr. Lea, [facility] casino duty manager, who said he will discuss with the hospitalist and call me back. Administered Medications Insulin Human Regular 250 (units/ Sodium Chloride) 250 mls @ 5.6 mls/hr IV .Q24H [facility]; Protocol Stop: 01/08/19 16:59 Last Admin: 12/09/18 18:26 Dose: 9.3 units/hr, 9.3 mls/hr Documented by: [id number] Cosigned by: [id number] Discontinued Medications Sodium Chloride (Nss 1000ml) 1,000 mls @ 999 mls/hr IV .Q1H1M URMILA Stop: 12/09/18 17:30 Last Infusion: 12/09/18 17:38 Dose: 0 mls/hr Documented by: [id number] Admin: 12/09/18 16:37 Dose: 999 mls/hr Documented by: [id number] Parenteral Electrolytes (Normosol-R) 1,000 mls @ 250 mls/hr IV .Q4H URMILA Stop: 01/08/19 16:59 Last Admin: 12/09/18 18:14 Dose: 250 mls/hr Documented by: [id number] Sodium Chloride (Nss 1000ml) 1,000 mls @ 999 mls/hr IV .Q1H1M URMILA Stop: 12/09/18 18:00 Last Admin: 12/09/18 18:28 Dose: Not Given Documented by: [id number] Insulin Human Regular (Novolin R Bolus From Bag) 9.3 units IV ONE ONE Stop: 12/09/18 17:16 Last Admin: 12/09/18 18:27 Dose: 9.3 units Documented by: [id number] Cosigned by: [id number] Miscellaneous (Insulin Protocol Dka Goal Range) 1 ea N/A ONE ONE Stop: 12/09/18 16:58 Last Admin: 12/09/18 18:28 Dose: 1 ea Documented by: [id number] Morphine Sulfate (Morphine Sulfate) 4 mg IV NOW STA Stop: 12/09/18 18:01 Last Admin: 12/09/18 18:22 Dose: 4 mg Documented by: [id number] Medical Decision Making Differential Diagnosis Differential Diagnosis: Etiologies such as metabolic, infection, hypo/hyperglycemia, electrolyte abnormalities, cardiac sources, intracerebral event, toxicologic, neurologic, as well as others were entertained. Medical Records Attestation: I reviewed the patient's medical records. Home Medications Current Medication List: was personally reviewed by me Laboratory Data Attestation: I reviewed the patient's lab results. Result diagrams: 12/09/18 16:19 12/09/18 16:19 Lab Results 12/09/18 12/09/18 12/09/18 Range/Units 16:19 16:19 16:19 WBC 18.38 H (4.8-10.8) K/uL RBC 6.01 H (4.2-5.4) M/uL Hgb 15.0 (12.0-16.0) g/dL Hct 44.5 (37-47) % MCV 74.0 L (80-100) fL MCH 25.0 (25-34) pg MCHC 33.7 (32-36) g/dL RDW Std Deviation 43.9 (36.4-46.3) fL RDW Coeff of Chidi 16.4 H (11.5-14.5) % Plt Count 311 (130-400) K/uL MPV 10.1 (7.4-10.4) fL Immature Gran % (Auto) 0.3 % Neut % (Auto) 85.1 % Lymph % (Auto) 5.7 % [place] % (Auto) 8.7 % Eos % (Auto) 0.1 % Baso % (Auto) 0.1 % Immature Gran # (Auto) 0.06 H (0.00-0.02) K/uL Neut # (Auto) 15.66 H (1.4-6.5) K/uL Lymph # (Auto) 1.04 L (1.2-3.4) K/uL [place] # (Auto) 1.59 H (0.11-0.59) K/uL Eos # (Auto) 0.02 (0-0.5) K/uL Baso # (Auto) 0.01 (0-0.2) K/uL PT Cancelled INR Cancelled APTT (21.0-31.0) Seconds PTT Ratio VBG pH VBG pCO2 VBG pO2 VBG HCO3 VBG O2 Saturation VBG Base Excess Barometric Pressure Sodium 130 L (136-145) mmol/L Potassium 5.4 H (3.5-5.1) mmol/L Chloride 100 (98-107) mmol/L Carbon Dioxide 15 L (21-32) mmol/L Anion Gap 15.0 H (3-11) BUN 61 H (7-18) mg/dl Creatinine 4.67 H* (0.6-1.2) mg/dl Est Cr Clr Drug Dosing 16.4 ml/min Est GFR ( Amer) 12.2 Est GFR (Non-Af Amer) 10.5 BUN/Creatinine Ratio 13.0 (10-20) Glucose 338 H* (70-99) mg/dl POC Glucose (70-99) Lactate (0.4-2.0) mmol/L Calcium 9.5 (8.5-10.1) mg/dl Phosphorus 4.4 (2.5-4.9) mg/dl Magnesium 2.1 (1.8-2.4) mg/dl Total Bilirubin 0.4 (0.2-1) mg/dl AST 35 (15-37) U/L ALT 37 (12-78) U/L Alkaline Phosphatase 139 H (45-117) U/L Troponin I < 0.015 (0-0.045) ng/ml Total Protein 8.6 H (6.4-8.2) gm/dl Albumin 3.8 (3.4-5.0) gm/dl Globulin 4.8 H (2.5-4.0) gm/dl Albumin/Globulin Ratio 0.8 L (0.9-2) Beta-Hydroxybutyric Acd (0.2-2.81) mg/dl TSH 1.510 (0.300-4.500) uIu/ml Specimen Hemolysis 12/09/18 12/09/18 12/09/18 Range/Units 16:28 17:18 17:25 WBC (4.8-10.8) K/uL RBC (4.2-5.4) M/uL Hgb (12.0-16.0) g/dL Hct (37-47) % MCV (80-100) fL MCH (25-34) pg MCHC (32-36) g/dL RDW Std Deviation (36.4-46.3) fL RDW Coeff of Chidi (11.5-14.5) % Plt Count (130-400) K/uL MPV (7.4-10.4) fL Immature Gran % (Auto) % Neut % (Auto) % Lymph % (Auto) % [place] % (Auto) % Eos % (Auto) % Baso % (Auto) % Immature Gran # (Auto) (0.00-0.02) K/uL Neut # (Auto) (1.4-6.5) K/uL Lymph # (Auto) (1.2-3.4) K/uL [place] # (Auto) (0.11-0.59) K/uL Eos # (Auto) (0-0.5) K/uL Baso # (Auto) (0-0.2) K/uL PT INR APTT (21.0-31.0) Seconds PTT Ratio VBG pH Cancelled VBG pCO2 Cancelled VBG pO2 Cancelled VBG HCO3 Cancelled VBG O2 Saturation Cancelled VBG Base Excess Cancelled Barometric Pressure Cancelled Sodium (136-145) mmol/L Potassium (3.5-5.1) mmol/L Chloride (98-107) mmol/L Carbon Dioxide (21-32) mmol/L Anion Gap (3-11) BUN (7-18) mg/dl Creatinine (0.6-1.2) mg/dl Est Cr Clr Drug Dosing ml/min Est GFR ( Amer) Est GFR (Non-Af Amer) BUN/Creatinine Ratio (10-20) Glucose (70-99) mg/dl POC Glucose 343 H* (70-99) Lactate (0.4-2.0) mmol/L Calcium (8.5-10.1) mg/dl Phosphorus (2.5-4.9) mg/dl Magnesium Cancelled (1.8-2.4) mg/dl Total Bilirubin (0.2-1) mg/dl AST (15-37) U/L ALT (12-78) U/L Alkaline Phosphatase (45-117) U/L Troponin I (0-0.045) ng/ml Total Protein (6.4-8.2) gm/dl Albumin (3.4-5.0) gm/dl Globulin (2.5-4.0) gm/dl Albumin/Globulin Ratio (0.9-2) Beta-Hydroxybutyric Acd (0.2-2.81) mg/dl TSH (0.300-4.500) uIu/ml Specimen Hemolysis 12/09/18 12/09/18 12/09/18 Range/Units 17:28 17:28 17:44 WBC (4.8-10.8) K/uL RBC (4.2-5.4) M/uL Hgb (12.0-16.0) g/dL Hct (37-47) % MCV (80-100) fL MCH (25-34) pg MCHC (32-36) g/dL RDW Std Deviation (36.4-46.3) fL RDW Coeff of Chidi (11.5-14.5) % Plt Count (130-400) K/uL MPV (7.4-10.4) fL Immature Gran % (Auto) % Neut % (Auto) % Lymph % (Auto) % [place] % (Auto) % Eos % (Auto) % Baso % (Auto) % Immature Gran # (Auto) (0.00-0.02) K/uL Neut # (Auto) (1.4-6.5) K/uL Lymph # (Auto) (1.2-3.4) K/uL [place] # (Auto) (0.11-0.59) K/uL Eos # (Auto) (0-0.5) K/uL Baso # (Auto) (0-0.2) K/uL PT INR APTT (21.0-31.0) Seconds PTT Ratio VBG pH Cancelled 7.20 L VBG pCO2 38 VBG pO2 34 VBG HCO3 15 VBG O2 Saturation 61.4 VBG Base Excess -12.5 Barometric Pressure Sodium (136-145) mmol/L Potassium (3.5-5.1) mmol/L Chloride (98-107) mmol/L Carbon Dioxide (21-32) mmol/L Anion Gap (3-11) BUN (7-18) mg/dl Creatinine (0.6-1.2) mg/dl Est Cr Clr Drug Dosing ml/min Est GFR ( Amer) Est GFR (Non-Af Amer) BUN/Creatinine Ratio (10-20) Glucose (70-99) mg/dl POC Glucose (70-99) Lactate 0.8 (0.4-2.0) mmol/L Calcium (8.5-10.1) mg/dl Phosphorus (2.5-4.9) mg/dl Magnesium (1.8-2.4) mg/dl Total Bilirubin (0.2-1) mg/dl AST (15-37) U/L ALT (12-78) U/L Alkaline Phosphatase (45-117) U/L Troponin I (0-0.045) ng/ml Total Protein (6.4-8.2) gm/dl Albumin (3.4-5.0) gm/dl Globulin (2.5-4.0) gm/dl Albumin/Globulin Ratio (0.9-2) Beta-Hydroxybutyric Acd (0.2-2.81) mg/dl TSH (0.300-4.500) uIu/ml Specimen Hemolysis 12/09/18 12/09/18 12/09/18 Range/Units 17:58 17:58 18:18 WBC (4.8-10.8) K/uL RBC (4.2-5.4) M/uL Hgb (12.0-16.0) g/dL Hct (37-47) % MCV (80-100) fL MCH (25-34) pg MCHC (32-36) g/dL RDW Std Deviation (36.4-46.3) fL RDW Coeff of Chidi (11.5-14.5) % Plt Count (130-400) K/uL MPV (7.4-10.4) fL Immature Gran % (Auto) % Neut % (Auto) % Lymph % (Auto) % [place] % (Auto) % Eos % (Auto) % Baso % (Auto) % Immature Gran # (Auto) (0.00-0.02) K/uL Neut # (Auto) (1.4-6.5) K/uL Lymph # (Auto) (1.2-3.4) K/uL [place] # (Auto) (0.11-0.59) K/uL Eos # (Auto) (0-0.5) K/uL Baso # (Auto) (0-0.2) K/uL PT 10.5 INR 1.0 APTT 28.8 (21.0-31.0) Seconds PTT Ratio 1.1 VBG pH VBG pCO2 VBG pO2 VBG HCO3 VBG O2 Saturation VBG Base Excess Barometric Pressure Sodium (136-145) mmol/L Potassium (3.5-5.1) mmol/L Chloride (98-107) mmol/L Carbon Dioxide (21-32) mmol/L Anion Gap (3-11) BUN (7-18) mg/dl Creatinine (0.6-1.2) mg/dl Est Cr Clr Drug Dosing ml/min Est GFR ( Amer) Est GFR (Non-Af Amer) BUN/Creatinine Ratio (10-20) Glucose (70-99) mg/dl POC Glucose 334 H* (70-99) Lactate (0.4-2.0) mmol/L Calcium (8.5-10.1) mg/dl Phosphorus (2.5-4.9) mg/dl Magnesium Cancelled (1.8-2.4) mg/dl Total Bilirubin (0.2-1) mg/dl AST (15-37) U/L ALT (12-78) U/L Alkaline Phosphatase (45-117) U/L Troponin I (0-0.045) ng/ml Total Protein (6.4-8.2) gm/dl Albumin (3.4-5.0) gm/dl Globulin (2.5-4.0) gm/dl Albumin/Globulin Ratio (0.9-2) Beta-Hydroxybutyric Acd (0.2-2.81) mg/dl TSH (0.300-4.500) uIu/ml Specimen Hemolysis Imaging Data Radiologist's Impression: Radiology results as stated below per my review and the radiologist's interpretation: HEAD CT NONCONTRAST CT DOSE: 2327.59 mGy.cm HISTORY: fall, intermittent lethargy TECHNIQUE: Multiaxial CT images of the head were performed without the use of intravenous contrast. Automated exposure control was utilized for this study. A dose lowering technique was utilized adhering to the principles of ALARA. Comparison: None. Findings: The paranasal sinuses and mastoid air cells are clear. The calvarium and skull base are intact. The ventricles and sulci are within normal limits. There is no mass, hematoma, midline shift, or acute infarct. Right frontal scalp swelling. Impression: No acute intracranial abnormality. Right frontal scalp swelling. Electronically signed by: Bennie Sung M.D. 12/09/2018 5:08 PM XR chest 1V portable HISTORY: weakness COMPARISON: Chest 06/09/2018. FINDINGS: The lungs are clear. Cardiac silhouette is normal in size. No pleural effusions. No pneumothorax. IMPRESSION: No acute process. Electronically signed by: Bennie Sung M.D. 12/09/2018 5:30 PM XR ankle LT min 3V routine CLINICAL HISTORY: pain, ecchymosis, s/p fall COMPARISON STUDY: None. FINDINGS: Plantar and posterior calcaneal spurs are noted. Diffuse soft tissue swelling within the left ankle. There is an oblique mildly displaced fracture within the distal fibula. This demonstrates up to 6 mm of posterior displacem ent. There is also a small avulsion fracture from the medial talus and a displaced fracture at the lateral tibia with a 1.5 cm bony fragment demonstrating 8 mm of lateral displacement. There is associated lateral dislocation of the talus in relation to the tibia. IMPRESSION: Bimalleolar left ankle fracture/dislocation. Electronically signed by: Bennie Sung M.D. 12/09/2018 5:29 PM XR ankle LT min 3V routine CLINICAL HISTORY: post reduction COMPARISON STUDY: Left ankle 12/09/2018. FINDINGS: Interval reduction of the left ankle fracture. There is improved anatomic alignment. There is a 3 mm of lateral displacement remaining within the fractures and tibiotalar joint. Overlying splint material obscures fine bony detail. Diffuse soft tissue swelling. IMPRESSION: Improved anatomic alignment status post reduction of the left ankle fracture. Electronically signed by: Bennie Sung M.D. 12/09/2018 7:16 PM Dictated: 12/09/181914 Transcribed: 12/09/181914 XR ankle LT 2V CLINICAL HISTORY: POST REDUCTION COMPARISON STUDY: Left ankle 12/09/2018. FINDINGS: Overlying splint material obscures fine bony detail. The initial image demonstrates progressive lateral displacement/dislocation within the left ankle. There is a bony fragment along the medial joint space which measures 7 mm. The second image demonstrates near-anatomic alignment. IMPRESSION: Near anatomic alignment status post reduction of the left ankle fracture/dislocation. Electronically signed by: Bennie Sung M.D. 12/09/2018 7:27 PM Dictated: 12/09/181925 Transcribed: 12/09/181925 ECG Data Attestation: I personally reviewed and interpreted this ECG as follows: Indication: weakness Rate (beats per minute): 76 Rhythm: normal sinus Findings: + other (nml intervals, nml axis, mild elevation in lead 3) and + T- wave inversion (in one AVL) Comparison ECG Date: from (June 09, 2018) Change: the following changes noted (Mild increase in convexity of lead 3. T- wave inversions are old. ) Blood Pressure Blood Pressure Findings: Elevated blood pressure Blood Pressure Disposition: further management by hospitalist Head Trauma GCS Score: 14 MDM Narrative The patient is a 43 year old female w/ PMHx of diabetes who presents to the ED w/ CC of illness beginning three days ago. Patient was seen and evaluated the bedside. The patient did present with some increasing confusion although the patient did have some fentanyl prior to arrival. The patient has had some falls this does have been obvious deformity of the left ankle with associated ecchymosis and does have abrasions to bilateral knees. Patient does have limited range of motion of the distal left lower extremity but otherwise follows commands. GCS of 14. The patient did have blood work completed initial [id number] glucose was 340. The patient's blood work which was concerning for an anion gap low bicarb elevated blood glucose so insulin protocol was ordered for DKA. Patient does have associated OK was given IV fluids and was started on making patient's CT the brain was negative. Chest x-ray is clear. The patient had declined any urinary symptoms. The patient was consented for left ankle reduction. This was a difficult reduction as the patient does have a bimalleolar fracture but after the last x- ray she did have good anatomical relocation. Postreduction the patient still had a good pedal pulse and did have a soft compartment. I had already spoken with the hospitalist as well as the casino duty manager and the patient was subsequently admitted to the intensive care unit for DKA and insulin management. Impression & Plan DKA (diabetic ketoacidoses), Acute renal failure (ARF), Acute dehydration, Closed left ankle fracture, Closed dislocation of left ankle Critical Care Time Critical Care Time: Yes Total Critical Care Time: 130 I have personally spent 130 minutes of critical care time in the direct management of this patient. This includes bedside care, interpretation of diagnostic studies, and testing, discussion with consultants, patient, and family members, and other required patient management activities. This 130 minutes is in excess of all separately billable procedures Discharge Plan Visit Data *Final* Discharge Date/Time: 12/09/18 19:13 Chief Complaint: Fall ED Provider: Mariusz Novak Discharge Problem: DKA (diabetic ketoacidoses), Acute renal failure (ARF), Acute dehydration, Closed left ankle fracture, Closed dislocation of left ankle Patient Disposition: Admitted As Inpatient Discharge Instructions Interventions: ED Discharge Assessment Last Done: 12/09/18 19:13 Discharge Problem: DKA (diabetic ketoacidoses) Qualifiers: Diabetes mellitus type: type 1 Diabetes mellitus complication detail: without coma Qualified Code(s): E10.10 - Type 1 diabetes mellitus with ketoacidosis without coma Acute renal failure (ARF) Qualifiers: Acute renal failure type: unspecified Qualified Code(s): N17.9 - Acute kidney failure, unspecified Closed left ankle fracture Qualifiers: Encounter type: initial encounter Qualified Code(s): S82.892A - Other fracture of left lower leg, initial encounter for closed fracture Closed dislocation of left ankle Qualifiers: Encounter type: initial encounter Qualified Code(s): S93.05XA - Dislocation of left ankle joint, initial encounter The scribe's documentation has been prepared under my direction and personally reviewed by me in its entirety. I confirm that the note above accurately reflects all work, treatment, procedures, and medical decision making performed by me.
[2018-12-09] MEDS ORDERED: fentaNYL citrate 100 MCG/2 ML VIAL IV PRN (20:39)
[2018-12-09] MEDS: PROPRANOLOL HCL 60 MG LA CAP PO SCH (20:49)
[2018-12-09 20:50] LABS: Calcium 8.6 mg/dl (8.5-10.1); Est GFR (African American) 14.7; Est GFR (Non-African American) 12.7; Magnesium 2.1 mg/dl (1.8-2.4); Phosphorus 4.3 mg/dl (2.5-4.9)
[2018-12-09] MEDS: FENOFIBRATE NANOCRYSTALLIZED 145 MG TABLET PO SCH (20:53)
[2018-12-09] MEDS: SODIUM BICARBONATE 650 MG TAB PO SCH (20:53)
[2018-12-09] MEDS ORDERED: INSULIN ASPART 100 UNITS/ML 3 ML PEN SC SCH (21:00)
[2018-12-09] MEDS ORDERED: PENDING D5 1/2NS+20mEq KCL IVF SCH (21:00)
[2018-12-09] MEDS ORDERED: PENDING 1/2NSS+20mEq KCL IVF SCH (21:00)
[2018-12-09] MEDS: OMEGA-3 (PURIFIED FISH OIL) 1 GM CAP PO SCH (21:05)
[2018-12-09] MEDS: ATORVASTATIN 20 MG TAB PO SCH (21:05)
[2018-12-09 21:19] LABS: Potassium 4.3 mmol/L (3.5-5.1)
[2018-12-09] MEDS: D5W AND 1/2NSS + 20MEQ KCL 20 MEQ/1,000 ML BAG IV SCH (21:35)
[2018-12-09] MEDS: INSULIN ASPART 100 UNITS/ML 3 ML PEN SC SCH (21:38)
[2018-12-09] MEDS: HEPARIN SOD 5,000 UNIT/0.5 ML VIAL SQ SCH (21:39)
--- NOTE | 2018-12-09 22:02 | CT Scan Report ---
ABDOMEN AND PELVIS CT WITHOUT CONTRAST CT DOSE: 1042.24 mGy.cm HISTORY: Generalized abdominal pain. Acute kidney injury. TECHNIQUE: Multiaxial CT images of the abdomen and pelvis were performed without contrast. A dose lo wering technique was utilized adhering to the principles of ALARA. COMPARISON STUDY: Abdomen and pelvis CT 06/11/2017. FINDINGS: Mild motion artifact. The lung bases appear clear. No pneumoperitoneum. No pneumatosis. Pos terior decompression fusion within the lower lumbar spine. No suspicious lytic or blastic osseous les ions. Cholecystectomy. Hepatic steatosis. The unenhanced spleen, adrenal glands, and pancreas are unr emarkable. A punctate stone within the lower pole of the left kidney. No right renal calculi. A 1.2 c m hypodense lesion within the left kidney remains unchanged. This is incompletely characterized on th is noncontrast study but favors a cyst. No ureteral calculi. No hydronephrosis. No bladder wall thick ening. The uterus and bilateral adnexa are unremarkable. No retroperitoneal lymphadenopathy. No pelvi c free fluid. Suboptimal evaluation for bowel pathology due to the lack of intravenous and oral contr ast. However, there is no definite bowel wall thickening or obstruction. Prior subtotal colectomy wit h ileocolonic anastomosis. IMPRESSION: 1. Left-sided nephrolithiasis. No ureteral stones. No hydronephrosis. 2. No definite bowel wall thickening or obstruction. 3. Hepatic steatosis. 4. Postoperative changes as described above. Electronically signed by: Bennie Sung M.D. 12/09/2018 10:01 PM
[2018-12-10 00:50] LABS: BUN Creatinine Ratio 14.7 (10-20); Calcium 8.3 mg/dl (8.5-10.1); Creatinine Clr Calc Pharmacy 19.1 ml/min; Est GFR (African American) 14.8; Est GFR (Non-African American) 12.8; Magnesium 2.3 mg/dl (1.8-2.4); Phosphorus 4.6 mg/dl (2.5-4.9); Potassium 4.1 mmol/L (3.5-5.1)
[2018-12-10] MEDS ORDERED: CARBOHYDRATES FOR HYPOGLYCEMIA PO PRN (01:00)
[2018-12-10] MEDS ORDERED: GLUCOSE 40% GEL 15 GM TUBE PO PRN (01:00)
[2018-12-10] MEDS ORDERED: GLUCAGON FOR INJ 1 MG VIAL IM PRN (01:00)
[2018-12-10] MEDS ORDERED: GLUCOSE 10 TABS/TUBE PO PRN (01:00)
[2018-12-10] MEDS: D5W AND 1/2NSS + 20MEQ KCL 20 MEQ/1,000 ML BAG IV SCH ×4 (01:12→13:13)
[2018-12-10] MEDS ORDERED: NORMOSOL-R 1,000 ML IV SCH (04:00)
[2018-12-10 04:42] LABS: BUN Creatinine Ratio 15.3 (10-20); Calcium 8.3 mg/dl (8.5-10.1); Creatinine Clr Calc Pharmacy 21.6 ml/min; Est GFR (African American) 17.1; Est GFR (Non-African American) 14.8; Magnesium 2.2 mg/dl (1.8-2.4)
[2018-12-10 04:49] LABS: Phosphorus 3.8 mg/dl (2.5-4.9)
[2018-12-10] MEDS: HEPARIN SOD 5,000 UNIT/0.5 ML VIAL SQ SCH ×3 (05:24→21:16)
--- NOTE | 2018-12-10 05:32 | Critical Care Progress Note ---
Date of Service December 10, 2018 Results & Data Vital Signs (Past 12 Hours) Vital Signs Temp Pulse Pulse Resp BP BP Pulse Ox 12/10/18 04:00 69 121/77 99 12/10/18 03:30 68 100 12/10/18 03:01 69 99 12/10/18 03:00 71 138/103 H 99 12/10/18 02:30 68 99 12/10/18 02:00 68 121/65 99 12/10/18 01:30 69 100 12/10/18 01:01 70 133/89 99 12/10/18 01:00 69 99 12/10/18 00:30 70 98 12/10/18 00:01 36.8 C 70 14 99 12/10/18 00:00 70 116/80 100 12/09/18 23:30 70 99 12/09/18 23:01 73 98 12/09/18 23:00 72 14 97/66 L 98 12/09/18 22:30 73 97 12/09/18 22:01 74 96 12/09/18 22:00 73 14 107/55 L 97 12/09/18 21:32 77 98 12/09/18 21:00 74 103/70 97 12/09/18 20:30 74 96 12/09/18 20:01 79 97 12/09/18 20:00 36.4 C L 80 120/77 96 12/09/18 19:48 36.4 C L 80 20 108/69 97 12/09/18 19:45 36.6 C 74 12 103/70 97 12/09/18 19:42 81 108/69 97 12/09/18 19:36 81 12/09/18 19:09 79 16 146/100 H 100 12/09/18 19:01 80 17 146/100 H 100 12/09/18 18:30 74 14 145/86 H 98 12/09/18 17:46 81 19 120/84 99 PG Care Time/CCT Total # of Minutes Spent Total Time Spent with Patient: Total time spent is greater than 50% in coordination of care (as documented) at patient's floor/unit and/or counseling patient:
[2018-12-10 05:40] LABS: Appearance Urine Cloudy (Clear); Bacteria Urine Automated 1+ (Negative); Bilirubin Urine Negative (Negative); Blood Urine 3+ (Negative); Color Urine Yellow; Epithelial Cell Urine Auto >30 /lpf (0-5); Glucose Urine UA 2+ (Negative); Ketones Urine Negative (Negative); Leukocyte Esterase Urine 2+ (Negative); Nitrite Urine Negative (Negative); Protein Urine 2+ (Negative); Specific Gravity Urine 1.016 (1.000-1.030); Urobilinogen Urine Negative (Negative); pH Urine 5.5 (4.5-7.5)
[2018-12-10 05:56] LABS: RBC Urine Automated 0-4 /hpf (0-4)
--- NOTE | 2018-12-10 07:43 | Critical Care Progress Note ---
Date of Service December 10, 2018 Assessment & Plan (1) Acidosis, metabolic: Reason Critically Ill: 43-year-old female presented with ankle fracture and admitted with metabolic acidosis in the setting of DKA and renal failure PLAN: Neuro: Ankle fractureOrtho consulted, awaiting metabolic stability before Ortho intervention -Fentanyl for pain control Acute encephalopathy -Resolved, likely was secondary to DKA -Ammonia negative Resp: -History of significant respiratory insufficiency requiring intubation -Currently stable on room air, will monitor end-tidal CO2 considering IV pain meds -Acidosis metabolic in origin, uncompensated CV: History hypertensionrestart home meds Fluids/Renal: Metabolic acidosisDKA versus renal failure, likely multifactorial -Creatinine improving at 2.9 from 4.7 yesterday, will continue to trend -Cannot rule out distal RTA considering hyperchloremia with urine pH greater than 5.5, a gap 10, pH 7.19 on a.m. labs; continue bicarb -Continue IV fluid resuscitation with potassium additive -OK likely prerenal from hyperglycemia and diarrhea -Patient has history of short-term hemodialysis for acidemia from previous admission -Strict I's and Os -Nephrology consulted, appreciate recs -We will continue oral bicarb, given 1 amp IV this a.m. -Continue to trend VBGs, BMPs -Currently hyperchloremic, elevated B hydroxybutyrate's and serum osmolality ID: History of C. difficile post colon resection, patient has diarrhea without fever, loose stools possibly from re-anastomosis of the colon. May collect blood cultures and treat empirically if patient becomes febrile GI/Nutrition: Clear diet at this time Heme: Anemia at baseline DVT prophylaxis: Heparin Endocrine: DKA protocol, see metabolic acidosis above Vascular access: Peripheral IVs Code Status: Full code I have personally spent 45 minutes of critical care time in the direct management of this patient. This is a life/limb threatening event. This includes time spent evaluating patient, direct bedside care, chart review, placing orders, interpretation of diagnostic studies, discussion with consultants, patient, and family members, as well as other required patient management activities. This time is exclusive of all separately billable procedures, and teaching time and separate from and in addition to any other critical care service time. Thank you for allowing us to participate in the care of this patient. Please refer to my attending physician's documentation for any further recommendations. (2) Ankle fracture, left: (3) Diarrhea: (4) ARF (acute renal failure): (5) DKA (diabetic ketoacidoses): (6) Hx of Clostridium difficile infection: (7) History of reversal of ileostomy: Supervising Physician Co-Signing Physician Notes Patient seen and examined and discussed with. EMR extensively reviewed and films independently reviewed case was discussed with nephrology as well. 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 She was admitted to the ICU with a presumptive diagnosis of DKA although her anion gap was out of proportion to her degree of acidosis and beta hydroxybutyrate was hemolyzed. Ketones were not identified in her urine. She was initiated on bicarb and m ental status has improved. Her blood gas abnormalities are also improving. She was noted to be in a mild degree of acute kidney injury likely secondary to prerenal/volume depleted state. These numbers are also improving. We will discontinue her insulin drip and transition her to long-acting insulin as well as sliding scale coverage. If she remains stable, would consider going to the OR for orthopedic internal fixation of her ankle fracture within the next 24 to 48hours. If the patient's status remains stable, she can likely transfer out of the ICU to the floor under the care of the hospitalist within the next 12 to 24 hours. Case was discussed with the ICU nurse at bedside as well as with the patient at bedside. Subjective This morning the patient is alert and oriented and mental status has improved. She appears comfortable on room air and is not requiring vasopressors. She complains of significant pain to the left ankle, will metabolically stabilize before Ortho intervention. She currently denies headache, confusion, syncope, shortness of breath, chest pain or palpitations, nausea or vomiting, abdominal pain, or diarrhea. She remains on insulin drip at this time and will continue to treat in ICU for now. Review of Systems Review of Systems: All systems reviewed & are unremarkable except as noted in HPI & below Physical Exam Constitutional: cooperative and comfortable Eyes: PERRL, conjunctivae normal, anicteric sclerae ENMT: external ear and nose normal, oropharynx normal Neck: trachea midline, no thyromegaly Respiratory: normal respiratory effort, lungs clear to auscultation Cardiovascular: RRR, no murmur, no edema Gastrointestinal (Abdomen): normal bowel sounds, soft, nontender, no hepatosplenomegaly Musculoskeletal: no cyanosis or clubbing, extremities motor strength 5/5 Skin: no rashes, warm and dry Neurologic: PERRL, EOMI, accommodation nl, no face palsy, no dysarthria Psychiatric: A+Ox3, euthymic affect Genitourinary: Indwelling Cheng Results & Data Vital Signs (Past 12 Hours) Vital Signs Temp Pulse Pulse Resp BP BP Pulse Ox 12/10/18 07:00 73 126/82 99 12/10/18 06:30 77 97 12/10/18 06:02 73 130/65 98 12/10/18 06:00 74 98 12/10/18 05:30 37.4 C 74 98 12/10/18 05:01 71 99 12/10/18 05:00 71 124/83 99 12/10/18 04:30 69 99 12/10/18 04:00 69 121/77 99 12/10/18 03:30 68 100 12/10/18 03:01 69 99 12/10/18 03:00 71 138/103 H 99 12/10/18 02:30 68 99 12/10/18 02:00 68 121/65 99 12/10/18 01:30 69 100 12/10/18 01:01 70 133/89 99 12/10/18 01:00 69 99 12/10/18 00:30 70 98 12/10/18 00:01 36.8 C 70 14 99 12/10/18 00:00 70 116/80 100 12/09/18 23:30 70 99 12/09/18 23:01 73 98 12/09/18 23:00 72 14 97/66 L 98 12/09/18 22:30 73 97 12/09/18 22:01 74 96 12/09/18 22:00 73 14 107/55 L 97 12/09/18 21:32 77 98 12/09/18 21:00 74 103/70 97 12/09/18 20:30 74 96 12/09/18 20:01 79 97 12/09/18 20:00 36.4 C L 80 120/77 96 12/09/18 19:48 36.4 C L 80 20 108/69 97 12/09/18 19:45 36.6 C 74 12 103/70 97 Laboratory Results Laboratory Results - last 24 hr 12/09/18 12/09/18 12/09/18 16:19 16:19 16:19 WBC 18.38 H RBC 6.01 H Hgb 15.0 Hct 44.5 MCV 74.0 L MCH 25.0 MCHC 33.7 RDW Std Deviation 43.9 RDW Coeff of Chidi 16.4 H Plt Count 311 MPV 10.1 Immature Gran % (Auto) 0.3 Neut % (Auto) 85.1 Lymph % (Auto) 5.7 [place] % (Auto) 8.7 Eos % (Auto) 0.1 Baso % (Auto) 0.1 Immature Gran # (Auto) 0.06 H Neut # (Auto) 15.66 H Lymph # (Auto) 1.04 L [place] # (Auto) 1.59 H Eos # (Auto) 0.02 Baso # (Auto) 0.01 PT Cancelled INR Cancelled APTT PTT Ratio VBG pH VBG pCO2 VBG pO2 VBG HCO3 VBG O2 Saturation VBG Base Excess Barometric Pressure Sodium 130 L Potassium 5.4 H Chloride 100 Carbon Dioxide 15 L Anion Gap 15.0 H BUN 61 H Creatinine 4.67 H* Est Cr Clr Drug Dosing 16.4 Est GFR ( Amer) 12.2 Est GFR (Non-Af Amer) 10.5 BUN/Creatinine Ratio 13.0 Glucose 338 H* POC Glucose Lactate Calcium 9.5 Phosphorus 4.4 Magnesium 2.1 Total Bilirubin 0.4 AST 35 ALT 37 Alkaline Phosphatase 139 H Ammonia Troponin I < 0.015 Total Protein 8.6 H Albumin 3.8 Globulin 4.8 H Albumin/Globulin Ratio 0.8 L Beta-Hydroxybutyric Acd TSH 1.510 Specimen Hemolysis Urine Color Urine Appearance Urine pH Ur Specific [place] Urine Protein Urine Glucose (UA) Urine Ketones Urine Blood Urine Nitrite Urine Bilirubin Urine Urobilinogen Ur Leukocyte Esterase Urine WBC (Auto) Urine RBC (Auto) U Hyaline Cast (Auto) U Epithel Cells (Auto) Urine Bacteria (Auto) Nasal Screen MRSA (PCR) 12/09/18 12/09/18 12/09/18 16:28 17:18 17:25 WBC RBC Hgb Hct MCV MCH MCHC RDW Std Deviation RDW Coeff of Chidi Plt Count MPV Immature Gran % (Auto) Neut % (Auto) Lymph % (Auto) [place] % (Auto) Eos % (Auto) Baso % (Auto) Immature Gran # (Auto) Neut # (Auto) Lymph # (Auto) [place] # (Auto) Eos # (Auto) Baso # (Auto) PT INR APTT PTT Ratio VBG pH Cancelled VBG pCO2 Cancelled VBG pO2 Cancelled VBG HCO3 Cancelled VBG O2 Saturation Cancelled VBG Base Excess Cancelled Barometric Pressure Cancelled Sodium Potassium Chloride Carbon Dioxide Anion Gap BUN Creatinine Est Cr Clr Drug Dosing Est GFR ( Amer) Est GFR (Non-Af Amer) BUN/Creatinine Ratio Glucose POC Glucose 343 H* Lactate Calcium Phosphorus Magnesium Cancelled Total Bilirubin AST ALT Alkaline Phosphatase Ammonia Troponin I Total Protein Albumin Globulin Albumin/Globulin Ratio Beta-Hydroxybutyric Acd TSH Specimen Hemolysis Urine Color Urine Appearance Urine pH Ur Specific [place] Urine Protein Urine Glucose (UA) Urine Ketones Urine Blood Urine Nitrite Urine Bilirubin Urine Urobilinogen Ur Leukocyte Esterase Urine WBC (Auto) Urine RBC (Auto) U Hyaline Cast (Auto) U Epithel Cells (Auto) Urine Bacteria (Auto) Nasal Screen MRSA (PCR) 12/09/18 12/09/18 12/09/18 17:28 17:28 17:44 WBC RBC Hgb Hct MCV MCH MCHC RDW Std Deviation RDW Coeff of Chidi Plt Count MPV Immature Gran % (Auto) Neut % (Auto) Lymph % (Auto) [place] % (Auto) Eos % (Auto) Baso % (Auto) Immature Gran # (Auto) Neut # (Auto) Lymph # (Auto) [place] # (Auto) Eos # (Auto) Baso # (Auto) PT INR APTT PTT Ratio VBG pH Cancelled 7.20 L VBG pCO2 38 VBG pO2 34 VBG HCO3 15 VBG O2 Saturation 61.4 VBG Base Excess -12.5 Barometric Pressure Sodium Potassium Chloride Carbon Dioxide Anion Gap BUN Creatinine Est Cr Clr Drug Dosing Est GFR ( Amer) Est GFR (Non-Af Amer) BUN/Creatinine Ratio Glucose POC Glucose Lactate 0.8 Calcium Phosphorus Magnesium Total Bilirubin AST ALT Alkaline Phosphatase Ammonia Troponin I Total Protein Albumin Globulin Albumin/Globulin Ratio Beta-Hydroxybutyric Acd TSH Specimen Hemolysis Urine Color Urine Appearance Urine pH Ur Specific [place] Urine Protein Urine Glucose (UA) Urine Ketones Urine Blood Urine Nitrite Urine Bilirubin Urine Urobilinogen Ur Leukocyte Esterase Urine WBC (Auto) Urine RBC (Auto) U Hyaline Cast (Auto) U Epithel Cells (Auto) Urine Bacteria (Auto) Nasal Screen MRSA (PCR) 12/09/18 12/09/18 12/09/18 17:58 17:58 18:18 WBC RBC Hgb Hct MCV MCH MCHC RDW Std Deviation RDW Coeff of Chidi Plt Count MPV Immature Gran % (Auto) Neut % (Auto) Lymph % (Auto) [place] % (Auto) Eos % (Auto) Baso % (Auto) Immature Gran # (Auto) Neut # (Auto) Lymph # (Auto) [place] # (Auto) Eos # (Auto) Baso # (Auto) PT 10.5 INR 1.0 APTT 28.8 PTT Ratio 1.1 VBG pH VBG pCO2 VBG pO2 VBG HCO3 VBG O2 Saturation VBG Base Excess Barometric Pressure Sodium Potassium Chloride Carbon Dioxide Anion Gap BUN Creatinine Est Cr Clr Drug Dosing Est GFR ( Amer) Est GFR (Non-Af Amer) BUN/Creatinine Ratio Glucose POC Glucose 334 H* Lactate Calcium Phosphorus Magnesium Cancelled Total Bilirubin AST ALT Alkaline Phosphatase Ammonia Troponin I Total Protein Albumin Globulin Albumin/Globulin Ratio Beta-Hydroxybutyric Acd TSH Specimen Hemolysis Urine Color Urine Appearance Urine pH Ur Specific [place] Urine Protein Urine Glucose (UA) Urine Ketones Urine Blood Urine Nitrite Urine Bilirubin Urine Urobilinogen Ur Leukocyte Esterase Urine WBC (Auto) Urine RBC (Auto) U Hyaline Cast (Auto) U Epithel Cells (Auto) Urine Bacteria (Auto) Nasal Screen MRSA (PCR) 12/09/18 12/09/18 12/09/18 19:04 19:59 20:21 WBC RBC Hgb Hct MCV MCH MCHC RDW Std Deviation RDW Coeff of Chidi Plt Count MPV Immature Gran % (Auto) Neut % (Auto) Lymph % (Auto) [place] % (Auto) Eos % (Auto) Baso % (Auto) Immature Gran # (Auto) Neut # (Auto) Lymph # (Auto) [place] # (Auto) Eos # (Auto) Baso # (Auto) PT INR APTT PTT Ratio VBG pH VBG pCO2 VBG pO2 VBG HCO3 VBG O2 Saturation VBG Base Excess Barometric Pressure Sodium 137 D Potassium 4.3 D Chloride 106 Carbon Dioxide 15 L Anion Gap 16.0 H BUN 60 H Creatinine 4.01 H D Est Cr Clr Drug Dosing 19.0 Est GFR ( Amer) 14.7 Est GFR (Non-Af Amer) 12.7 BUN/Creatinine Ratio 15.0 Glucose 176 H POC Glucose 303 H* 188 H Lactate Calcium 8.6 Phosphorus 4.3 Magnesium 2.1 Total Bilirubin AST ALT Alkaline Phosphatase Ammonia Troponin I Total Protein Albumin Globulin Albumin/Globulin Ratio Beta-Hydroxybutyric Acd TSH Specimen Hemolysis Urine Color Urine Appearance Urine pH Ur Specific [place] Urine Protein Urine Glucose (UA) Urine Ketones Urine Blood Urine Nitrite Urine Bilirubin Urine Urobilinogen Ur Leukocyte Esterase Urine WBC (Auto) Urine RBC (Auto) U Hyaline Cast (Auto) U Epithel Cells (Auto) Urine Bacteria (Auto) Nasal Screen MRSA (PCR) 12/09/18 12/09/18 12/09/18 20:21 21:10 21:15 WBC RBC Hgb Hct MCV MCH MCHC RDW Std Deviation RDW Coeff of Chidi Plt Count MPV Immature Gran % (Auto) Neut % (Auto) Lymph % (Auto) [place] % (Auto) Eos % (Auto) Baso % (Auto) Immature Gran # (Auto) Neut # (Auto) Lymph # (Auto) [place] # (Auto) Eos # (Auto) Baso # (Auto) PT INR APTT PTT Ratio VBG pH 7.22 L VBG pCO2 VBG pO2 VBG HCO3 VBG O2 Saturation VBG Base Excess Barometric Pressure Sodium Potassium Chloride Carbon Dioxide Anion Gap BUN Creatinine Est Cr Clr Drug Dosing Est GFR ( Amer) Est GFR (Non-Af Amer) BUN/Creatinine Ratio Glucose POC Glucose 163 H Lactate Calcium Phosphorus Magnesium Total Bilirubin AST ALT Alkaline Phosphatase Ammonia Troponin I Total Protein Albumin Globulin Albumin/Globulin Ratio Beta-Hydroxybutyric Acd TSH Specimen Hemolysis Urine Color Urine Appearance Urine pH Ur Specific [place] Urine Protein Urine Glucose (UA) Urine Ketones Urine Blood Urine Nitrite Urine Bilirubin Urine Urobilinogen Ur Leukocyte Esterase Urine WBC (Auto) Urine RBC (Auto) U Hyaline Cast (Auto) U Epithel Cells (Auto) Urine Bacteria (Auto) Nasal Screen MRSA (PCR) Negative 12/09/18 12/10/18 12/10/18 22:40 00:00 00:24 WBC RBC Hgb Hct MCV MCH MCHC RDW Std Deviation RDW Coeff of Chidi Plt Count MPV Immature Gran % (Auto) Neut % (Auto) Lymph % (Auto) [place] % (Auto) Eos % (Auto) Baso % (Auto) Immature Gran # (Auto) Neut # (Auto) Lymph # (Auto) [place] # (Auto) Eos # (Auto) Baso # (Auto) PT INR APTT PTT Ratio VBG pH VBG pCO2 VBG pO2 VBG HCO3 VBG O2 Saturation VBG Base Excess Barometric Pressure Sodium 137 Potassium 4.1 Chloride 105 Carbon Dioxide 16 L Anion Gap 16.0 H BUN 59 H Creatinine 3.99 H Est Cr Clr Drug Dosing 19.1 Est GFR ( Amer) 14.8 Est GFR (Non-Af Amer) 12.8 BUN/Creatinine Ratio 14.7 Glucose 229 H POC Glucose 193 H 226 H Lactate Calcium 8.3 L Phosphorus 4.6 Magnesium 2.3 Total Bilirubin AST ALT Alkaline Phosphatase Ammonia Troponin I Total Protein Albumin Globulin Albumin/Globulin Ratio Beta-Hydroxybutyric Acd TSH Specimen Hemolysis Urine Color Urine Appearance Urine pH Ur Specific [place] Urine Protein Urine Glucose (UA) Urine Ketones Urine Blood Urine Nitrite Urine Bilirubin Urine Urobilinogen Ur Leukocyte Esterase Urine WBC (Auto) Urine RBC (Auto) U Hyaline Cast (Auto) U Epithel Cells (Auto) Urine Bacteria (Auto) Nasal Screen MRSA (PCR) 12/10/18 12/10/18 12/10/18 00:24 01:04 02:56 WBC RBC Hgb Hct MCV MCH MCHC RDW Std Deviation RDW Coeff of Chidi Plt Count MPV Immature Gran % (Auto) Neut % (Auto) Lymph % (Auto) [place] % (Auto) Eos % (Auto) Baso % (Auto) Immature Gran # (Auto) Neut # (Auto) Lymph # (Auto) [place] # (Auto) Eos # (Auto) Baso # (Auto) PT INR APTT PTT Ratio VBG pH 7.23 L VBG pCO2 VBG pO2 VBG HCO3 VBG O2 Saturation VBG Base Excess Barometric Pressure Sodium Potassium Chloride Carbon Dioxide Anion Gap BUN Creatinine Est Cr Clr Drug Dosing Est GFR ( Amer) Est GFR (Non-Af Amer) BUN/Creatinine Ratio Glucose POC Glucose 233 H 258 H Lactate Calcium Phosphorus Magnesium Total Bilirubin AST ALT Alkaline Phosphatase Ammonia Troponin I Total Protein Albumin Globulin Albumin/Globulin Ratio Beta-Hydroxybutyric Acd TSH Specimen Hemolysis Urine Color Urine Appearance Urine pH Ur Specific [place] Urine Protein Urine Glucose (UA) Urine Ketones Urine Blood Urine Nitrite Urine Bilirubin Urine Urobilinogen Ur Leukocyte Esterase Urine WBC (Auto) Urine RBC (Auto) U Hyaline Cast (Auto) U Epithel Cells (Auto) Urine Bacteria (Auto) Nasal Screen MRSA (PCR) 12/10/18 12/10/18 12/10/18 04:05 04:05 04:05 WBC RBC Hgb Hct MCV MCH MCHC RDW Std Deviation RDW Coeff of Chidi Plt Count MPV Immature Gran % (Auto) Neut % (Auto) Lymph % (Auto) [place] % (Auto) Eos % (Auto) Baso % (Auto) Immature Gran # (Auto) Neut # (Auto) Lymph # (Auto) [place] # (Auto) Eos # (Auto) Baso # (Auto) PT INR APTT PTT Ratio VBG pH 7.19 L VBG pCO2 VBG pO2 VBG HCO3 VBG O2 Saturation VBG Base Excess Barometric Pressure Sodium 136 Potassium 4.0 Chloride 106 Carbon Dioxide 18 L Anion Gap 12.0 H BUN 54 H Creatinine 3.53 H D Est Cr Clr Drug Dosing 21.6 Est GFR ( Amer) 17.1 Est GFR (Non-Af Amer) 14.8 BUN/Creatinine Ratio 15.3 Glucose 209 H POC Glucose Lactate Calcium 8.3 L Phosphorus 3.8 Magnesium 2.2 Total Bilirubin AST ALT Alkaline Phosphatase Ammonia 24.0 Troponin I Total Protein Albumin Globulin Albumin/Globulin Ratio Beta-Hydroxybutyric Acd TSH Specimen Hemolysis Urine Color Urine Appearance Urine pH Ur Specific [place] Urine Protein Urine Glucose (UA) Urine Ketones Urine Blood Urine Nitrite Urine Bilirubin Urine Urobilinogen Ur Leukocyte Esterase Urine WBC (Auto) Urine RBC (Auto) U Hyaline Cast (Auto) U Epithel Cells (Auto) Urine Bacteria (Auto) Nasal Screen MRSA (PCR) 12/10/18 12/10/18 12/10/18 04:07 05:00 05:16 WBC RBC Hgb Hct MCV MCH MCHC RDW Std Deviation RDW Coeff of Chidi Plt Count MPV Immature Gran % (Auto) Neut % (Auto) Lymph % (Auto) [place] % (Auto) Eos % (Auto) Baso % (Auto) Immature Gran # (Auto) Neut # (Auto) Lymph # (Auto) [place] # (Auto) Eos # (Auto) Baso # (Auto) PT INR APTT PTT Ratio VBG pH VBG pCO2 VBG pO2 VBG HCO3 VBG O2 Saturation VBG Base Excess Barometric Pressure Sodium Potassium Chloride Carbon Dioxide Anion Gap BUN Creatinine Est Cr Clr Drug Dosing Est GFR ( Amer) Est GFR (Non-Af Amer) BUN/Creatinine Ratio Glucose POC Glucose 238 H 198 H Lactate Calcium Phosphorus Magnesium Total Bilirubin AST ALT Alkaline Phosphatase Ammonia Troponin I Total Protein Albumin Globulin Albumin/Globulin Ratio Beta-Hydroxybutyric Acd TSH Specimen Hemolysis Urine Color Yellow Urine Appearance Cloudy A Urine pH 5.5 Ur Specific [place] 1.016 Urine Protein 2+ H Urine Glucose (UA) 2+ H Urine Ketones Negative Urine Blood 3+ H Urine Nitrite Negative Urine Bilirubin Negative Urine Urobilinogen Negative Ur Leukocyte Esterase 2+ H Urine WBC (Auto) 10-30 H Urine RBC (Auto) 0-4 U Hyaline Cast (Auto) 5-10 H U Epithel Cells (Auto) >30 H Urine Bacteria (Auto) 1+ H Nasal Screen MRSA (PCR) 12/10/18 12/10/18 12/10/18 06:01 07:19 08:05 WBC RBC Hgb Hct MCV MCH MCHC RDW Std Deviation RDW Coeff of Chidi Plt Count MPV Immature Gran % (Auto) Neut % (Auto) Lymph % (Auto) [place] % (Auto) Eos % (Auto) Baso % (Auto) Immature Gran # (Auto) Neut # (Auto) Lymph # (Auto) [place] # (Auto) Eos # (Auto) Baso # (Auto) PT INR APTT PTT Ratio VBG pH VBG pCO2 VBG pO2 VBG HCO3 VBG O2 Saturation VBG Base Excess Barometric Pressure Sodium Potassium Chloride Carbon Dioxide Anion Gap BUN Creatinine Est Cr Clr Drug Dosing Est GFR ( Amer) Est GFR (Non-Af Amer) BUN/Creatinine Ratio Glucose POC Glucose 197 H 219 H 245 H Lactate Calcium Phosphorus Magnesium Total Bilirubin AST ALT Alkaline Phosphatase Ammonia Troponin I Total Protein Albumin Globulin Albumin/Globulin Ratio Beta-Hydroxybutyric Acd TSH Specimen Hemolysis Urine Color Urine Appearance Urine pH Ur Specific [place] Urine Protein Urine Glucose (UA) Urine Ketones Urine Blood Urine Nitrite Urine Bilirubin Urine Urobilinogen Ur Leukocyte Esterase Urine WBC (Auto) Urine RBC (Auto) U Hyaline Cast (Auto) U Epithel Cells (Auto) Urine Bacteria (Auto) Nasal Screen MRSA (PCR) 12/10/18 12/10/18 12/10/18 08:12 08:12 09:51 WBC RBC Hgb Hct MCV MCH MCHC RDW Std Deviation RDW Coeff of Chidi Plt Count MPV Immature Gran % (Auto) Neut % (Auto) Lymph % (Auto) [place] % (Auto) Eos % (Auto) Baso % (Auto) Immature Gran # (Auto) Neut # (Auto) Lymph # (Auto) [place] # (Auto) Eos # (Auto) Baso # (Auto) PT INR APTT PTT Ratio VBG pH 7.19 L VBG pCO2 VBG pO2 VBG HCO3 VBG O2 Saturation VBG Base Excess Barometric Pressure Sodium 137 Potassium 4.1 Chloride 108 H Carbon Dioxide 19 L Anion Gap 10.0 BUN 50 H Creatinine 2.92 H D Est Cr Clr Drug Dosing 26.1 Est GFR ( Amer) 21.6 Est GFR (Non-Af Amer) 18.6 BUN/Creatinine Ratio 17.0 Glucose 224 H POC Glucose 231 H Lactate Calcium 8.6 Phosphorus 3.1 Magnesium 2.3 Total Bilirubin AST ALT Alkaline Phosphatase Ammonia Troponin I Total Protein Albumin Globulin Albumin/Globulin Ratio Beta-Hydroxybutyric Acd TSH Specimen Hemolysis Urine Color Urine Appearance Urine pH Ur Specific [place] Urine Protein Urine Glucose (UA) Urine Ketones Urine Blood Urine Nitrite Urine Bilirubin Urine Urobilinogen Ur Leukocyte Esterase Urine WBC (Auto) Urine RBC (Auto) U Hyaline Cast (Auto) U Epithel Cells (Auto) Urine Bacteria (Auto) Nasal Screen MRSA (PCR) 12/10/18 12/10/18 12/10/18 11:45 11:47 11:47 WBC RBC Hgb Hct MCV MCH MCHC RDW Std Deviation RDW Coeff of Chidi Plt Count MPV Immature Gran % (Auto) Neut % (Auto) Lymph % (Auto) [place] % (Auto) Eos % (Auto) Baso % (Auto) Immature Gran # (Auto) Neut # (Auto) Lymph # (Auto) [place] # (Auto) Eos # (Auto) Baso # (Auto) PT INR APTT PTT Ratio VBG pH 7.25 L VBG pCO2 VBG pO2 VBG HCO3 VBG O2 Saturation VBG Base Excess Barometric Pressure Sodium Pending Potassium Pending Chloride Pending Carbon Dioxide Pending Anion Gap Pending BUN Pending Creatinine Pending Est Cr Clr Drug Dosing Pending Est GFR ( Amer) Pending Est GFR (Non-Af Amer) Pending BUN/Creatinine Ratio Pending Glucose Pending POC Glucose 213 H Lactate Calcium Pending Phosphorus Pending Magnesium Pending Total Bilirubin AST ALT Alkaline Phosphatase Ammonia Troponin I Total Protein Albumin Globulin Albumin/Globulin Ratio Beta-Hydroxybutyric Acd TSH Specimen Hemolysis Urine Color Urine Appearance Urine pH Ur Specific [place] Urine Protein Urine Glucose (UA) Urine Ketones Urine Blood Urine Nitrite Urine Bilirubin Urine Urobilinogen Ur Leukocyte Esterase Urine WBC (Auto) Urine RBC (Auto) U Hyaline Cast (Auto) U Epithel Cells (Auto) Urine Bacteria (Auto) Nasal Screen MRSA (PCR) Medications Administered Home Medications Tresiba FlexTouch U-100 120 unit SUBCUT HS 12/28/17 [History Confirmed 12/09/18] albuterol sulfate 2 puff INHALATION Q4H PRN 12/28/17 [History Confirmed 12/09/18] amlodipine 10 mg PO QAM 12/28/17 [History Confirmed 12/09/18] atorvastatin 20 mg PO HS 12/28/17 [History Confirmed 12/09/18] duloxetine [Cymbalta] 60 mg PO QPM 12/28/17 [History Confirmed 12/09/18] esomeprazole magnesium 40 mg PO QAM 12/28/17 [History Confirmed 12/09/18] fenofibrate 160 mg PO HS 12/28/17 [History Confirmed 12/09/18] insulin lispro [Humalog U-100 Insulin] 30 unit SUBCUT TID 12/28/17 [History Confirmed 12/09/18] omega 7-fte-eat-fish oil [Fish Oil] 1 tab PO BID 12/28/17 [History Confirmed 12/09/18] pregabalin [Lyrica] 100 mg PO TID 12/28/17 [History Confirmed 12/09/18] propranolol 120 mg PO BID 12/28/17 [History Confirmed 12/09/18] sodium bicarbonate 3 tab PO QID 12/28/17 [History Confirmed 12/09/18] magnesium chloride [Mag 64] 64 mg PO BID #60 tab 12/31/17 [Rx Confirmed 12/09/18] ondansetron [Zofran ODT] 4 mg PO Q6H PRN #90 tab 01/10/18 [Rx Confirmed 12/09/18] baclofen 10 mg PO TID PRN 12/09/18 [History Confirmed 12/09/18] fluticasone propionate [Flonase Allergy Relief] 2 spray INTRANASAL DAILY 12/09/18 [History Confirmed 12/09/18] furosemide [Lasix] 20 mg PO DAILY 12/09/18 [History Confirmed 12/09/18] pioglitazone [Actos] 30 mg PO DAILY 12/09/18 [History Confirmed 12/09/18] prochlorperazine maleate [Compazine] 10 mg PO TID PRN 12/09/18 [History Confirmed 12/09/18] Active Medications Amlodipine Besylate (Norvasc) 10 mg PO QAM [facility] Stop: 01/09/19 08:59 Last Admin: 12/10/18 07:53 Dose: 10 mg Documented by: Atorvastatin Calcium (Lipitor) 20 mg PO HS [facility] Stop: 01/08/19 20:59 Last Admin: 12/09/18 21:05 Dose: 20 mg Documented by: Dextrose (Dextrose 50%) 25 - 50 ml IV UD PRN; Protocol PRN Reason: Hypoglycemia Protocol Stop: 01/09/19 00:59 Fenofibrate (Tricor) 145 mg PO [place] [facility] Stop: 01/08/19 20:59 Last Admin: 12/09/18 20:53 Dose: 145 mg Documented by: Fentanyl Citrate (Fentanyl Citrate) 50 mcg IV Q2H PRN PRN Reason: Moderate Pain (4,5,6) Stop: 12/23/18 20:38 Fentanyl Citrate (Fentanyl Citrate) 100 mcg IV Q2H PRN PRN Reason: Severe Pain (7,8,9,10) Stop: 12/23/18 20:38 Fish Oil ([place]-3 (Purified Fish Oil)) 1 gm PO BID [facility] Stop: 01/08/19 20:59 Last Admin: 12/10/18 07:54 Dose: 1 gm Documented by: Glucagon (Glucagen) 1 mg IM UD PRN; Protocol PRN Reason: Hypoglycemia Protocol Stop: 01/09/19 00:59 Glucose (Glucose 40%) 15 - 30 gm PO UD PRN; Protocol PRN Reason: Hypoglycemia Protocol Stop: 01/09/19 00:59 Glucose (Dex4 Glucose) 4 - 8 tabs PO UD PRN; Protocol PRN Reason: Hypoglycemia Protocol Stop: 01/09/19 00:59 Heparin Sodium (Porcine) (Heparin Sodium (Porcine)) 5,000 units SQ Q8 [facility] Stop: 01/08/19 21:59 Last Admin: 12/10/18 05:24 Dose: 5,000 units Documented by: Insulin Human Regular 250 (units/ Sodium Chloride) 250 mls @ 5.4 mls/hr IV .Q24H URMILA; Protocol Stop: 01/08/19 16:59 Last Titration: 12/10/18 11:53 Dose: 5.4 units/hr, 5.4 mls/hr Documented by: Acetaminophen (Ofirmev) 1,000 mg in 100 mls @ 400 mls/hr IV Q8H PRN PRN Reason: pAIN mild 1-3 Stop: 01/08/19 20:38 Potassium Chloride/Dextrose/Sod Cl (D5w And 1/2nss + 20meq Kcl) 20 meq in 1,000 mls @ 250 mls/hr IV .Q4H URMILA Stop: 01/08/19 21:59 Last Admin: 12/10/18 09:23 Dose: 250 mls/hr Documented by: Insulin Aspart (Novolog Flexpen) 0 units SC ACHS URMILA Stop: 01/08/19 20:59 Last Admin: 12/10/18 11:52 Dose: 9 units Documented by: Miscellaneous (Carbohydrates For Hypoglycemia) 15 - 30 gm PO UD PRN PRN Reason: Hypoglycemia Treatment Stop: 01/09/19 00:59 Miscellaneous Information (Consult Glycemic Management Pharmacy) 1 ea N/A UD PRN PRN Reason: Consult Stop: 01/08/19 20:15 Pantoprazole Sodium (Protonix) 40 mg PO DAILY [facility] Stop: 01/09/19 08:59 Last Admin: 12/10/18 07:54 Dose: 40 mg Documented by: Pregabalin (Lyrica) 75 mg PO DAILY [facility] Stop: 01/09/19 08:59 Last Admin: 12/10/18 09:17 Dose: 75 mg Documented by: Propranolol HCl (Inderal La) 120 mg PO BID [facility] Stop: 01/08/19 20:59 Last Admin: 12/10/18 09:17 Dose: 120 mg Documented by: Sodium Bicarbonate (Sodium Bicarbonate) 1,950 mg PO QID [facility] Stop: 01/08/19 20:59 Last Admin: 12/10/18 07:55 Dose: 1,950 mg Documented by: PG Care Time/CCT Total # of Minutes Spent Total Time Spent with Patient: Total time spent is greater than 50% in coordination of care (as documented) at patient's floor/unit and/or counseling patient: Critical Care Time: Yes Total Critical Care Time: 45 (1) DKA (diabetic ketoacidoses) Diabetes mellitus complication detail: without coma Diabetes mellitus type: type 1 Qualified Code(s): E10.10 - Type 1 diabetes mellitus with ketoacidosis without coma (2) ARF (acute renal failure) Acute renal failure type: unspecified Qualified Code(s): N17.9 - Acute kidney failure, unspecified (3) Diarrhea Diarrhea type: unspecified type Qualified Code(s): R19.7 - Diarrhea, unspecified (4) Ankle fracture, left Encounter type: initial encounter Fracture type: closed Qualified Code(s): S82.892A - Other fracture of left lower leg, initial encounter for closed fracture
[2018-12-10] MEDS: AMLODIPINE BESYLATE 5 MG TAB PO SCH (07:53)
[2018-12-10] MEDS: OMEGA-3 (PURIFIED FISH OIL) 1 GM CAP PO SCH ×2 (07:54→20:41)
[2018-12-10] MEDS: PANTOprazole 40 MG TAB PO SCH (07:54)
[2018-12-10] MEDS: SODIUM BICARBONATE 650 MG TAB PO SCH ×4 (07:55→20:41)
[2018-12-10] MEDS: INSULIN ASPART 100 UNITS/ML 3 ML PEN SC SCH ×4 (07:56→21:23)
[2018-12-10 08:41] LABS: Calcium 8.6 mg/dl (8.5-10.1); Creatinine Clr Calc Pharmacy 26.1 ml/min; Est GFR (African American) 21.6; Est GFR (Non-African American) 18.6; Magnesium 2.3 mg/dl (1.8-2.4); Potassium 4.1 mmol/L (3.5-5.1)
[2018-12-10 08:51] LABS: Phosphorus 3.1 mg/dl (2.5-4.9)
[2018-12-10] MEDS ORDERED: INSULIN GLARGINE SOLOSTAR 100 UNITS/ML 3 ML PEN SC STA ×2 (08:59→15:31)
[2018-12-10] MEDS: PREGABALIN 75 MG CAP PO SCH (09:17)
[2018-12-10] MEDS: PROPRANOLOL HCL 60 MG LA CAP PO SCH ×2 (09:17→20:42)
--- NOTE | 2018-12-10 09:20 | Nephrology Consultation ---
Date of Consultation December 10, 2018 Assessment & Plan (1) Acute renal failure (ARF): prerenal OK in setting of hyperglycemia and diarrhea. Improving w/ aggressive IVF which should continue: currently on D5 1/2 NS w/ 20 mEq of K at 250 mL /hr; team following DKA protocol which is reasoable -daily bmp -strict I/O -avoid nsaids Present on Admission?: Yes (2) Acidosis, metabolic: difficult to call her presentation DKA w/o ketonuria, elevated B hydroxybutyrate, elevated serum osmolality >> that said, she has a hx of rapid decompensation from MS and respiratory standpoint. acidosis improving today and likely multifactorial/ acute on chronic >> from malabsorption, diarrhea, hyperglycemia, dehydration -daily labs -cont po sodium bicarbonate as tolerated -consider blood cxs given leukocytosis, concern for DKA on presentation; doubt UTI given contaminated specimen w/ minimal bacteria on presentation though some urinary inflammation noted Present on Admission?: Yes (3) Ankle fracture, left: need to optimize metabolically before OR Present on Admission?: Yes (4) Recurrent falls: per critical care and primary service; may be in part d/t electrolyte abnormalities Present on Admission?: Yes History of Present Illness Attending Physician: Romel Kwan MD History of Present Illness 43 y/o F whom I'm asked to see for OK after she was admitted to ICU overnight for encephalopathy, OK, metabolic acidosis after falling at home and presenting w/ L ankle fracture. She finished abtx about 2.5 ago for URI. No other new meds. For 48 hrs prior to admission had severe diarrhea. " every time I coughed" and multiple falls b/c her legs would simply buckle out from under her. Mom and are at bediside: they confirm that she slid out of bed about 6 times on night before presentation. Was also cold and clammy and having myoclonic jerks at the time. She has had repeated admissions w/ metabolic acidosis and has in past decompensated quickly needing intubation and emergent dialysis. Other PMH includes poorly regulated DM on insulin, chronic and poorly understood metabolic acidosis/electrolyte issues, active tobacco abuse, HTN, obesity, staphylococcemia (per report), recurrent bronchitis, 2013 colon resection for C diff sepsis. I follow her in CKD clinic for electrolyte/acid base issues and monitor her labs regularly. She has had extensive w/u spring 2017 for chronic/relapsing metabolic acidosis with now definitive dx; suspected multifactorial from interaction of GI malabsorption, diarrhea, intermittent emesis, and poor diabetic control. Baseline creatinine is 0.8-1.0, as recently as 11/30/18. Her presenting creatinine was 4.7 yesterday afternoon, trending down to 2.9 this am. Her presenting K was 5.4 (and slightly hemolyzed), which normalized on subsequent tests. Beta hydroxybutyrate was not obtained at admission d/t hemolysis. She had no ketonuria. Her presenting C02, AG, BG, and pH on VBG were 15, 15, 338, and 7.20 respectively; they have posted at 19, 10, 224, and 7.19 respectively this am. Lactate and ammonia levels were wnl. Her ankle fracture was manually reduced last evening in ER; next steps to be established after metabolic issues correct. Multiple admissions for similar issue past years, including need for intubation and emergent dialysis. 04/2017-DKA, C. difficile, intubation, required dialysis for acidemia. 05/28-sepsis with no known source, required intubation, severe metabolic acidosis 06/2017-gallstone pancreatitis w/ acute on chronic metabolic acidosis 07/2017 metabolic acidosis secondary to GI malabsorption bicarb is patient h/o colectomy 08/2017 metabolic acidosis, nausea/vomiting 09/2017-metabolic acidosis, hyperglycemia, OK 12/2017 -DKA with metabolic acidosis, OK 01/2018 - DKA and acute on chronic metabolic acidosis, OK Allergies Allergy/AdvReac Type Severity Reaction Status Date / Time bee venom protein (honey bee) Allergy Intermediate RED, SHORT Verified 12/09/18 17:46 OF BREATH No Known Drug Allergies Allergy Unknown NKDA Verified 12/09/18 17:46 Home Medications Home Medications Medication Instructions Recorded Confirmed Type Tresiba FlexTouch U-100 120 unit SUBCUT HS 12/28/17 12/09/18 History albuterol sulfate 2 puff INHALATION Q4H PRN 12/28/17 12/09/18 History amlodipine 10 mg PO QAM 12/28/17 12/09/18 History atorvastatin 20 mg PO HS 12/28/17 12/09/18 History duloxetine [Cymbalta] 60 mg PO QPM 12/28/17 12/09/18 History esomeprazole magnesium 40 mg PO QAM 12/28/17 12/09/18 History fenofibrate 160 mg PO HS 12/28/17 12/09/18 History insulin lispro [Humalog U-100 30 unit SUBCUT TID 12/28/17 12/09/18 History Insulin] omega 4-nsd-dou-fish oil [Fish Oil] 1 tab PO BID 12/28/17 12/09/18 History pregabalin [Lyrica] 100 mg PO TID 12/28/17 12/09/18 History propranolol 120 mg PO BID 12/28/17 12/09/18 History sodium bicarbonate 3 tab PO QID 12/28/17 12/09/18 History magnesium chloride [Mag 64] 64 mg PO BID #60 tab 12/31/17 12/09/18 Rx ondansetron [Zofran ODT] 4 mg PO Q6H PRN #90 tab 01/10/18 12/09/18 Rx baclofen 10 mg PO TID PRN 12/09/18 12/09/18 History fluticasone propionate [Flonase 2 spray INTRANASAL DAILY 12/09/18 12/09/18 History Allergy Relief] furosemide [Lasix] 20 mg PO DAILY 12/09/18 12/09/18 History pioglitazone [Actos] 30 mg PO DAILY 12/09/18 12/09/18 History prochlorperazine maleate 10 mg PO TID PRN 12/09/18 12/09/18 History [Compazine] Patient History Medical History Depression (Chronic) Hx of Clostridium difficile infection (Resolved) 2011 - TREATED History of renal dialysis (Resolved) - [facility] - ARF 2/2 DKA Kidney stones (Chronic) History of endometriosis (Chronic) Anxiety (Chronic) Fracture of rib of right side (Resolved) Anemia of chronic disease (Chronic) Chronic nausea (Chronic) Suppurative hidradenitis (Chronic) Hypertension (Chronic) GERD (gastroesophageal reflux disease) (Chronic) Metabolic acidosis (Chronic) "recurrent" Diabetes mellitus type 1 (Chronic) HISTORY MULTIPLE EPISODES DKA Dyslipidemia (Chronic) Surgical History History of ileostomy (Resolved) History of reversal of ileostomy (Chronic) History of lumbar spinal fusion (Chronic) History of rotator cuff surgery (Chronic) RT Hx of tracheostomy (Resolved) R/T COMPLICATIONS AFTER ILEOSTOMY REVERSAL SURGERY IN 2012; HAS SINCE BEEN R EVERSED 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" Status post cholecystectomy (Chronic) "cholelithiasis" Family History Mother Diabetes Social History Preferred Language: Luxembourgish Communication Ability: Effective Diesel Electrician Required: No Beliefs That Will Affect Care: None marital status: Current Living Situation: Family Other Information That Helps Us Care for You: No Feels Safe at Home: Yes Safety Concerns: Feels Safe At This Time Smoking Status: Current every day smoker Tobacco Type: cigarettes ; Cigarettes Per Day: 5 ; Do You Dip or Chew Tobacco: No ; Second Hand Exposure: No ; Tobacco Cessation Education Requested by Patient: No Hx Alcohol Use: Yes Alcohol Intake Frequency: Holidays/Special Occasions Hx Substance Use: No Review of Systems Constitutional: + fatigue (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) and + weakness Eyes: no worsening vision Ear, Nose, Mouth, Throat: no dry mouth Respiratory: + cough and + chest congestion; no hemoptysis Cardiovascular: no chest pain, no dyspnea on exertion, no palpitations and no edema Gastrointestinal: + change in bowel habits and + diarrhea/loose stools; no abdominal pain, no early satiety and no vomiting Genitourinary: no dysuria, no urinary frequency and no urinary hesitancy Musculoskeletal: + muscle weakness Integumentary: no rash and no non-healing lesions Neurologic: as per Subjective / HPI, + falls, + abnormal movements and + behavioral changes Psychiatric: no problem reported Endocrine: + fatigue Hematologic / Lymphatic: no easy bleeding Physical Exam Constitutional: well developed and well nourished; no acute distress on 02nc, A& 0 x 3 Eyes: EOM intact bilaterally ENMT: Ears: no external ear abnormality Nose: no external nose abnormality Mouth: + dry oral mucous membranes Neck: no nuchal rigidity Respiratory: normal respiratory effort Auscultation: + diminished lung sounds Cardiovascular: RRR, no murmur, no edema Gastrointestinal (Abdomen): Inspection/Auscultation: normal bowel sounds Percussion/Palpation: abdomen soft; abdomen nontender Musculoskeletal: Extremities: strength 5/5 throughout no myoclonic jerks or focal weakness Skin: no rashes, warm and dry plethoric fascies Neurologic: pizarro, fluent speech, no tremor Psychiatric: A+Ox3, euthymic affect Genitourinary: damico w/ ample urine Results & Data Vital Signs (Past 12 Hours) Vital Signs Temp Pulse Pulse Resp BP BP Pulse Ox 12/10/18 08:00 36.7 C 73 74 18 126/82 97 12/10/18 07:00 73 126/82 99 12/10/18 06:30 77 97 12/10/18 06:02 73 130/65 98 12/10/18 06:00 74 98 12/10/18 05:30 37.4 C 74 98 12/10/18 05:01 71 99 12/10/18 05:00 71 124/83 99 12/10/18 04:30 69 99 12/10/18 04:00 69 121/77 99 12/10/18 03:30 68 100 12/10/18 03:01 69 99 12/10/18 03:00 71 138/103 H 99 12/10/18 02:30 68 99 12/10/18 02:00 68 121/65 99 12/10/18 01:30 69 100 12/10/18 01:01 70 133/89 99 12/10/18 01:00 69 99 12/10/18 00:30 70 98 12/10/18 00:01 36.8 C 70 14 99 12/10/18 00:00 70 116/80 100 12/09/18 23:30 70 99 12/09/18 23:01 73 98 12/09/18 23:00 72 14 97/66 L 98 12/09/18 22:30 73 97 12/09/18 22:01 74 96 12/09/18 22:00 73 14 107/55 L 97 12/09/18 21:32 77 98 Laboratory Results Abnormal lab results 12/09/18 12/09/18 12/09/18 Range/Units 16:19 16:19 16:28 WBC 18.38 H (4.8-10.8) K/uL RBC 6.01 H (4.2-5.4) M/uL MCV 74.0 L (80-100) fL RDW Coeff of Chidi 16.4 H (11.5-14.5) % Immature Gran # (Auto) 0.06 H (0.00-0.02) K/uL Neut # (Auto) 15.66 H (1.4-6.5) K/uL Lymph # (Auto) 1.04 L (1.2-3.4) K/uL [place] # (Auto) 1.59 H (0.11-0.59) K/uL VBG pH (7.36-7.41) Sodium 130 L (136-145) mmol/L Potassium 5.4 H (3.5-5.1) mmol/L Chloride (98-107) mmol/L Carbon Dioxide 15 L (21-32) mmol/L Anion Gap 15.0 H (3-11) BUN 61 H (7-18) mg/dl Creatinine 4.67 H* (0.6-1.2) mg/dl Glucose 338 H* (70-99) mg/dl POC Glucose 343 H* (70-99) Calcium (8.5-10.1) mg/dl Alkaline Phosphatase 139 H (45-117) U/L Total Protein 8.6 H (6.4-8.2) gm/dl Globulin 4.8 H (2.5-4.0) gm/dl Albumin/Globulin Ratio 0.8 L (0.9-2) Urine Appearance (Clear) Urine Protein (Negative) Urine Glucose (UA) (Negative) Urine Blood (Negative) Ur Leukocyte Esterase (Negative) Urine WBC (Auto) (0-5) /hpf U Hyaline Cast (Auto) (0-5) /lpf U Epithel Cells (Auto) (0-5) /lpf Urine Bacteria (Auto) (Negative) 12/09/18 12/09/18 12/09/18 Range/Units 17:28 18:18 19:04 WBC (4.8-10.8) K/uL RBC (4.2-5.4) M/uL MCV (80-100) fL RDW Coeff of Chidi (11.5-14.5) % Immature Gran # (Auto) (0.00-0.02) K/uL Neut # (Auto) (1.4-6.5) K/uL Lymph # (Auto) (1.2-3.4) K/uL [place] # (Auto) (0.11-0.59) K/uL VBG pH 7.20 L (7.36-7.41) Sodium (136-145) mmol/L Potassium (3.5-5.1) mmol/L Chloride (98-107) mmol/L Carbon Dioxide (21-32) mmol/L Anion Gap (3-11) BUN (7-18) mg/dl Creatinine (0.6-1.2) mg/dl Glucose (70-99) mg/dl POC Glucose 334 H* 303 H* (70-99) Calcium (8.5-10.1) mg/dl Alkaline Phosphatase (45-117) U/L Total Protein (6.4-8.2) gm/dl Globulin (2.5-4.0) gm/dl Albumin/Globulin Ratio (0.9-2) Urine Appearance (Clear) Urine Protein (Negative) Urine Glucose (UA) (Negative) Urine Blood (Negative) Ur Leukocyte Esterase (Negative) Urine WBC (Auto) (0-5) /hpf U Hyaline Cast (Auto) (0-5) /lpf U Epithel Cells (Auto) (0-5) /lpf Urine Bacteria (Auto) (Negative) 12/09/18 12/09/18 12/09/18 Range/Units 19:59 20:21 20:21 WBC (4.8-10.8) K/uL RBC (4.2-5.4) M/uL MCV (80-100) fL RDW Coeff of Chidi (11.5-14.5) % Immature Gran # (Auto) (0.00-0.02) K/uL Neut # (Auto) (1.4-6.5) K/uL Lymph # (Auto) (1.2-3.4) K/uL [place] # (Auto) (0.11-0.59) K/uL VBG pH 7.22 L (7.36-7.41) Sodium (136-145) mmol/L Potassium (3.5-5.1) mmol/L Chloride (98-107) mmol/L Carbon Dioxide 15 L (21-32) mmol/L Anion Gap 16.0 H (3-11) BUN 60 H (7-18) mg/dl Creatinine 4.01 H D (0.6-1.2) mg/dl Glucose 176 H (70-99) mg/dl POC Glucose 188 H (70-99) Calcium (8.5-10.1) mg/dl Alkaline Phosphatase (45-117) U/L Total Protein (6.4-8.2) gm/dl Globulin (2.5-4.0) gm/dl Albumin/Globulin Ratio (0.9-2) Urine Appearance (Clear) Urine Protein (Negative) Urine Glucose (UA) (Negative) Urine Blood (Negative) Ur Leukocyte Esterase (Negative) Urine WBC (Auto) (0-5) /hpf U Hyaline Cast (Auto) (0-5) /lpf U Epithel Cells (Auto) (0-5) /lpf Urine Bacteria (Auto) (Negative) 12/09/18 12/09/18 12/10/18 Range/Units 21:15 22:40 00:00 WBC (4.8-10.8) K/uL RBC (4.2-5.4) M/uL MCV (80-100) fL RDW Coeff of Chidi (11.5-14.5) % Immature Gran # (Auto) (0.00-0.02) K/uL Neut # (Auto) (1.4-6.5) K/uL Lymph # (Auto) (1.2-3.4) K/uL [place] # (Auto) (0.11-0.59) K/uL VBG pH (7.36-7.41) Sodium (136-145) mmol/L Potassium (3.5-5.1) mmol/L Chloride (98-107) mmol/L Carbon Dioxide (21-32) mmol/L Anion Gap (3-11) BUN (7-18) mg/dl Creatinine (0.6-1.2) mg/dl Glucose (70-99) mg/dl POC Glucose 163 H 193 H 226 H (70-99) Calcium (8.5-10.1) mg/dl Alkaline Phosphatase (45-117) U/L Total Protein (6.4-8.2) gm/dl Globulin (2.5-4.0) gm/dl Albumin/Globulin Ratio (0.9-2) Urine Appearance (Clear) Urine Protein (Negative) Urine Glucose (UA) (Negative) Urine Blood (Negative) Ur Leukocyte Esterase (Negative) Urine WBC (Auto) (0-5) /hpf U Hyaline Cast (Auto) (0-5) /lpf U Epithel Cells (Auto) (0-5) /lpf Urine Bacteria (Auto) (Negative) 12/10/18 12/10/18 12/10/18 Range/Units 00:24 00:24 01:04 WBC (4.8-10.8) K/uL RBC (4.2-5.4) M/uL MCV (80-100) fL RDW Coeff of Chdii (11.5-14.5) % Immature Gran # (Auto) (0.00-0.02) K/uL Neut # (Auto) (1.4-6.5) K/uL Lymph # (Auto) (1.2-3.4) K/uL [place] # (Auto) (0.11-0.59) K/uL VBG pH 7.23 L (7.36-7.41) Sodium (136-145) mmol/L Potassium (3.5-5.1) mmol/L Chloride (98-107) mmol/L Carbon Dioxide 16 L (21-32) mmol/L Anion Gap 16.0 H (3-11) BUN 59 H (7-18) mg/dl Creatinine 3.99 H (0.6-1.2) mg/dl Glucose 229 H (70-99) mg/dl POC Glucose 233 H (70-99) Calcium 8.3 L (8.5-10.1) mg/dl Alkaline Phosphatase (45-117) U/L Total Protein (6.4-8.2) gm/dl Globulin (2.5-4.0) gm/dl Albumin/Globulin Ratio (0.9-2) Urine Appearance (Clear) Urine Protein (Negative) Urine Glucose (UA) (Negative) Urine Blood (Negative) Ur Leukocyte Esterase (Negative) Urine WBC (Auto) (0-5) /hpf U Hyaline Cast (Auto) (0-5) /lpf U Epithel Cells (Auto) (0-5) /lpf Urine Bacteria (Auto) (Negative) 12/10/18 12/10/18 12/10/18 Range/Units 02:56 04:05 04:05 WBC (4.8-10.8) K/uL RBC (4.2-5.4) M/uL MCV (80-100) fL RDW Coeff of Chidi (11.5-14.5) % Immature Gran # (Auto) (0.00-0.02) K/uL Neut # (Auto) (1.4-6.5) K/uL Lymph # (Auto) (1.2-3.4) K/uL [place] # (Auto) (0.11-0.59) K/uL VBG pH 7.19 L (7.36-7.41) Sodium (136-145) mmol/L Potassium (3.5-5.1) mmol/L Chloride (98-107) mmol/L Carbon Dioxide 18 L (21-32) mmol/L Anion Gap 12.0 H (3-11) BUN 54 H (7-18) mg/dl Creatinine 3.53 H D (0.6-1.2) mg/dl Glucose 209 H (70-99) mg/dl POC Glucose 258 H (70-99) Calcium 8.3 L (8.5-10.1) mg/dl Alkaline Phosphatase (45-117) U/L Total Protein (6.4-8.2) gm/dl Globulin (2.5-4.0) gm/dl Albumin/Globulin Ratio (0.9-2) Urine Appearance (Clear) Urine Protein (Negative) Urine Glucose (UA) (Negative) Urine Blood (Negative) Ur Leukocyte Esterase (Negative) Urine WBC (Auto) (0-5) /hpf U Hyaline Cast (Auto) (0-5) /lpf U Epithel Cells (Auto) (0-5) /lpf Urine Bacteria (Auto) (Negative) 12/10/18 12/10/18 12/10/18 Range/Units 04:07 05:00 05:16 WBC (4.8-10.8) K/uL RBC (4.2-5.4) M/uL MCV (80-100) fL RDW Coeff of Chidi (11.5-14.5) % Immature Gran # (Auto) (0.00-0.02) K/uL Neut # (Auto) (1.4-6.5) K/uL Lymph # (Auto) (1.2-3.4) K/uL [place] # (Auto) (0.11-0.59) K/uL VBG pH (7.36-7.41) Sodium (136-145) mmol/L Potassium (3.5-5.1) mmol/L Chloride (98-107) mmol/L Carbon Dioxide (21-32) mmol/L Anion Gap (3-11) BUN (7-18) mg/dl Creatinine (0.6-1.2) mg/dl Glucose (70-99) mg/dl POC Glucose 238 H 198 H (70-99) Calcium (8.5-10.1) mg/dl Alkaline Phosphatase (45-117) U/L Total Protein (6.4-8.2) gm/dl Globulin (2.5-4.0) gm/dl Albumin/Globulin Ratio (0.9-2) Urine Appearance Cloudy A (Clear) Urine Protein 2+ H (Negative) Urine Glucose (UA) 2+ H (Negative) Urine Blood 3+ H (Negative) Ur Leukocyte Esterase 2+ H (Negative) Urine WBC (Auto) 10-30 H (0-5) /hpf U Hyaline Cast (Auto) 5-10 H (0-5) /lpf U Epithel Cells (Auto) >30 H (0-5) /lpf Urine Bacteria (Auto) 1+ H (Negative) 12/10/18 12/10/18 12/10/18 Range/Units 06:01 07:19 08:12 WBC (4.8-10.8) K/uL RBC (4.2-5.4) M/uL MCV (80-100) fL RDW Coeff of Chidi (11.5-14.5) % Immature Gran # (Auto) (0.00-0.02) K/uL Neut # (Auto) (1.4-6.5) K/uL Lymph # (Auto) (1.2-3.4) K/uL [place] # (Auto) (0.11-0.59) K/uL VBG pH (7.36-7.41) Sodium (136-145) mmol/L Potassium (3.5-5.1) mmol/L Chloride 108 H (98-107) mmol/L Carbon Dioxide 19 L (21-32) mmol/L Anion Gap (3-11) BUN 50 H (7-18) mg/dl Creatinine 2.92 H D (0.6-1.2) mg/dl Glucose 224 H (70-99) mg/dl POC Glucose 197 H 219 H (70-99) Calcium (8.5-10.1) mg/dl Alkaline Phosphatase (45-117) U/L Total Protein (6.4-8.2) gm/dl Globulin (2.5-4.0) gm/dl Albumin/Globulin Ratio (0.9-2) Urine Appearance (Clear) Urine Protein (Negative) Urine Glucose (UA) (Negative) Urine Blood (Negative) Ur Leukocyte Esterase (Negative) Urine WBC (Auto) (0-5) /hpf U Hyaline Cast (Auto) (0-5) /lpf U Epithel Cells (Auto) (0-5) /lpf Urine Bacteria (Auto) (Negative) 12/10/18 Range/Units 08:12 WBC (4.8-10.8) K/uL RBC (4.2-5.4) M/uL MCV (80-100) fL RDW Coeff of Chidi (11.5-14.5) % Immature Gran # (Auto) (0.00-0.02) K/uL Neut # (Auto) (1.4-6.5) K/uL Lymph # (Auto) (1.2-3.4) K/uL [place] # (Auto) (0.11-0.59) K/uL VBG pH 7.19 L (7.36-7.41) Sodium (136-145) mmol/L Potassium (3.5-5.1) mmol/L Chloride (98-107) mmol/L Carbon Dioxide (21-32) mmol/L Anion Gap (3-11) BUN (7-18) mg/dl Creatinine (0.6-1.2) mg/dl Glucose (70-99) mg/dl POC Glucose (70-99) Calcium (8.5-10.1) mg/dl Alkaline Phosphatase (45-117) U/L Total Protein (6.4-8.2) gm/dl Globulin (2.5-4.0) gm/dl Albumin/Globulin Ratio (0.9-2) Urine Appearance (Clear) Urine Protein (Negative) Urine Glucose (UA) (Negative) Urine Blood (Negative) Ur Leukocyte Esterase (Negative) Urine WBC (Auto) (0-5) /hpf U Hyaline Cast (Auto) (0-5) /lpf U Epithel Cells (Auto) (0-5) /lpf Urine Bacteria (Auto) (Negative) Diagnostic Findings CT abd/pelvis non con FINDINGS: Mild motion artifact. The lung bases appear clear. No pneumoperitoneum. No pneumatosis. Posterior decompression fusion within the lower lumbar spine. No suspicious lytic or blastic osseous lesions. Cholecystectomy. Hepatic steatosis. The unenhanced spleen, adrenal glands, and pancreas are unremarkable. A punctate stone within the lower pole of the left kidney. No right renal calculi. A 1.2 cm hypodense lesion within the left kidney remains unchanged. This is incompletely characterized on this noncontrast study but favors a cyst. No ureteral calculi. No hydronephrosis. No bladder wall thickening. The uterus and bilateral adnexa are unremarkable. No retroperitoneal lymphadenopathy. No pelvic free fluid. Suboptimal evaluation for bowel pathology due to the lack of intravenous and oral contrast. However, there is no definite bowel wall thickening or obstruction. Prior subtotal colectomy with ileocolonic anastomosis. IMPRESSION: 1. Left-sided nephrolithiasis. No ureteral stones. No hydronephrosis. 2. No definite bowel wall thickening or obstruction. 3. Hepatic steatosis. 4. Postoperative changes as described above. (1) Acute renal failure (ARF) Acute renal failure type: unspecified Qualified Code(s): N17.9 - Acute kidney failure, unspecified (2) Ankle fracture, left Encounter type: initial encounter Fracture type: closed Qualified Code(s): S82.892A - Other fracture of left lower leg, initial encounter for closed fracture
[2018-12-10] MEDS ORDERED: SODIUM BICARB 8.4% INJ 50 MEQ/50 ML SYR IV STA (09:50)
--- NOTE | 2018-12-10 12:18 | Consultation Report ---
DATE OF CONSULTATION: 12/10/2018 PERTINENT HISTORY: This is a 43-year-old female seen at the request of Dr. Romel Kwan and Dr. Wiliam aGrsia for left ankle fracture dislocation. Apparently, the patient was in her usual state of health when she had a fall and left ankle pain and deformity. She has been having frequent falls and generalized weakness. She felt sudden onset of left ankle pain, swelling, deformities, she called EMS and brought to the Emergency Department. She has been noncompliant with insulin regimen and other medications. She has had multiple episodes of diarrhea over the last several days. Denies any loss of consciousness, head or neck trauma, chest pain or shortness of breath. She was admitted to the hospital with diabetic ketoacidosis, glucose 338, anion gap pH 7.2, HCO3 of 15, bimalleolar left ankle fracture dislocation. Ankle fracture was then reduced by the ER physician, placed in a splint and admitted to the hospital. Currently, patient has improving diabetic ketoacidosis with acute renal failure. PAST MEDICAL HISTORY: Diabetic ketoacidosis, diabetes mellitus, depression, history of C. diff, renal dialysis, kidney stones, endometriosis, anxiety, rib fracture in the right, anemia of chronic disease, chronic nausea, suppurative hidradenitis, hypertension, GERD, metabolic acidosis recurrence and dyslipidemia. PAST SURGICAL HISTORY: Reversal ileostomy, lumbar spinal fusion, rotator cuff surgery, right tracheostomy, secondary complications of surgery in 2011, partial colectomy for C. diff colitis, cholecystectomy. ALLERGIES: BEE VENOM. MEDICATIONS: Please note the extensive list in the medical record. SOCIAL HISTORY: She smokes cigarettes approximately 5 per day. Denies drug use. She drinks alcohol on holidays and special occasions. She lives at home. PHYSICAL EXAMINATION: This is a 43-year-old woman lying supine in hospital room bed. Significantly overweight. Family is present at bedside. She is alert and oriented x3. Speech is clear and fluent. Examination of the left ankle demonstrates splint clean, dry and intact. Cap refill less than 2 seconds, brisk. The ankle is tender to palpation. Toes were mobile. Reasonable alignment of the ankle grossly. Radiographs reviewed. She has a Gutierrez B variant bimalleolar left ankle fracture with evidence for prior reduction with improvement in alignment in the Emergency Department. IMPRESSION: 1. Left ankle bimalleolar fracture dislocation with subsequent reduction in a splint. 2. Improving diabetic ketoacidosis. 3. Acute renal failure, severe diarrhea, metabolic acidosis, diabetes, leukocytosis, hypertension. RECOMMENDATION: The patient will require surgical fixation for left ankle fracture once renal failure and diabetic ketoacidosis with metabolic acidosis was corrected. Once stable, will be a good candidate for surgical fixation. We will follow with you and when she is stabilized, we can schedule her for the OR. Thank you for the opportunity to consult in the care of this patient.
[2018-12-10 12:39] LABS: BUN Creatinine Ratio 18.1 (10-20); Calcium 8.2 mg/dl (8.5-10.1); Creatinine Clr Calc Pharmacy 31.3 ml/min; Est GFR (African American) 26.8; Est GFR (Non-African American) 23.1; Potassium 3.9 mmol/L (3.5-5.1)
[2018-12-10 12:52] LABS: Phosphorus 2.3 mg/dl (2.5-4.9)
[2018-12-10] MEDS: ACETAMINOPHEN 1,000 MG/100 ML VIAL IV PRN (15:04)
[2018-12-10] MEDS: SODIUM BICARBONATE 8.4% 150 MEQ in DEXTROSE 5% 1,000 ML IV SCH (15:55)
--- NOTE | 2018-12-10 15:57 | Pharmacy Report ---
Pharmacy Glycemic Short Note 2 - Date of Service December 10, 2018 - Glycemic Short BSG Results (Last 24 hours): 12/09/18 12/09/18 12/09/18 16:19 16:28 18:18 Glucose 338 H* POC Glucose 343 H* 334 H* 12/09/18 12/09/18 12/09/18 19:04 19:59 20:21 Glucose 176 H POC Glucose 303 H* 188 H 12/09/18 12/09/18 12/10/18 21:15 22:40 00:00 Glucose POC Glucose 163 H 193 H 226 H 12/10/18 12/10/18 12/10/18 00:24 01:04 02:56 Glucose 229 H POC Glucose 233 H 258 H 12/10/18 12/10/18 12/10/18 04:05 04:07 05:16 Glucose 209 H POC Glucose 238 H 198 H 12/10/18 12/10/18 12/10/18 06:01 07:19 08:05 Glucose POC Glucose 197 H 219 H 245 H 12/10/18 12/10/18 12/10/18 08:12 09:51 11:45 Glucose 224 H POC Glucose 231 H 213 H 12/10/18 12/10/18 12/10/18 11:47 13:43 14:59 Glucose 207 H POC Glucose 250 H 248 H OUTPATIENT ANTIDIABETIC REGIMEN: * Tresiba 120 units SQ qHS * Humalog 30 units SQ TID * Actos 30 mg PO daily * HbA1c: pending ASSESSMENT: * Ms Hernandez is a 43yo diabetic female admitted last evening with DKA. She is familiar to the pharmacy glycemic service from past admissions. * Patient was initiated on an IV insulin infusion on admission, with some improvement in labs today: * Labs on admission: BSG 338, AG 15, CO2 15, pH 7.2, SCr 4.67 * Most recent labs: BSG 250, AG 8, CO2 21, pH 7.25, SCr 2.44 * Patient is still receiving IVF containing dextrose. She is ordered a clear liquid diet. * Lantus initiated in an effort to begin transition to SQ insulin. PLAN FOR INPATIENT GLYCEMIC CONTROL: * Hold outpatient oral diabetes medications * Basal insulin * Lantus 100 units thus far today, plus additional dose tonight based on BSGs * Continue IV insulin infusion until BSGs are <180 mg/dL x2 consecutive checks AND insulin infusion rate is less than 2 units/hr * Bolus insulin * NovoLog per scale ACHS or Q6hrs while NPO * Goal Range: Low 110 mg/dL - High 180 mg/dL (100-140 mg/dL once drip is stopped) * Correction Factor: 10 mg/dL/unit (once drip is stopped) * Nutritional / Prandial insulin per carb ratio of 1 unit per 3 grams CHO consumed PLAN FOR DISCHARGE: * pending A1c results
[2018-12-10 16:11] LABS: BUN Creatinine Ratio 18.8 (10-20); Calcium 8.1 mg/dl (8.5-10.1); Creatinine Clr Calc Pharmacy 38.5 ml/min; Est GFR (African American) 34.5; Est GFR (Non-African American) 29.8; Phosphorus 2.1 mg/dl (2.5-4.9); Potassium 5.2 mmol/L (3.5-5.1)
[2018-12-10] MEDS: fentaNYL citrate 100 MCG/2 ML VIAL IV PRN ×2 (16:18→20:18)
[2018-12-10] MEDS ORDERED: fentaNYL citrate 100 MCG/2 ML VIAL IV STA (16:46)
--- NOTE | 2018-12-10 17:54 | Hospitalist Progress Note ---
Date of Service December 10, 2018 Assessment & Plan (1) DKA (diabetic ketoacidoses): (2) Acidosis, metabolic: (3) Diabetes mellitus type 1: Present on admission with generalized weakness and falls Non compliant with Insulin Lab on admission showed glucose 338, anion gap 15, pH 7.2, HCO3 was 15 Was started on DKA protocol Received IVF On IV sodium bicarb On insulin drip that has been managed by the pharmacy Anion gap closed Received Lantus starting on clear liquid diet Continue monitor electrolytes Monitor BS closely (4) ARF (acute renal failure): Creatinine on admission 4.6 Due to dehydration from DKA Received IV fluid Creatinine improved to 1.9 Nephrology on board Continue to hold lasix Avoid nephrotoxic agents Monitor BMP (5) Ankle fracture, left: L Ankle xray showed bimalleolar left ankle fracture/dislocation. Ortho on board plan to take to OR on Mon once stable Continue pain control Fall precaution (6) Diarrhea: Stool for Cdiff not collected since pt had not had diarrhea Continue monitor (7) Leukocytosis: WBC 18 Frank admission Possibly stress response from DKA Afebrile and lactate normal on admission Monitor CBC (8) Hypertension: BP fluctuated Continue amlodipine and propanolol Furosemide on hold due to OK (9) Dyslipidemia: Continue statin and fenofibrate (10) Anxiety: (11) Depression: Will resume duloxetine gabapentin decreased due to OK (12) DVT prophylaxis: On SQ heparin CODE STATUS FULL CODE Disposition Will transfer to telemetry Subjective Pt was seen and examined Lying in bed with no distress Pt said that pain in her left ankle worsening with movement She was very honest about being lazy to take her insulin Denies any chest pain, palpitation, dizziness and SOB Physical Exam Physical Exam: General- No acute distress Head- atraumatic Eyes- PERRL, EOMI, ENT- oropharynx clear Neck- supple, no JVD Lungs- clear to auscultation Heart- regular rhythm; no murmur Abdomen- normal bowel sounds, soft, nontender Extremities- no calf tenderness, +left ankle in splint, +ankle tenderness, able to move her toes Neuro- alert, oriented x 3; PERRL, EOMI; no facial palsy; no dysarthria Skin- warm & dry Results & Data Vital Signs (Past 12 Hours) Vital Signs Temp Pulse Pulse Resp BP BP Pulse Ox 12/10/18 16:00 36.6 C 73 83 20 144/94 H 98 12/10/18 12:00 36.9 C 73 84 20 158/92 H 99 12/10/18 08:00 36.7 C 73 74 18 126/82 97 12/10/18 07:00 73 126/82 99 12/10/18 06:30 77 97 12/10/18 06:02 73 130/65 98 12/10/18 06:00 74 98 (1) DKA (diabetic ketoacidoses) Diabetes mellitus complication detail: without coma Diabetes mellitus type: type 1 Qualified Code(s): E10.10 - Type 1 diabetes mellitus with ketoacidosis without coma (2) ARF (acute renal failure) Acute renal failure type: unspecified Qualified Code(s): N17.9 - Acute kidney failure, unspecified (3) Diabetes mellitus type 1 Diabetes mellitus complication detail: with chronic kidney disease Diabetes mellitus complication status: with kidney complications (4) Diarrhea Diarrhea type: unspecified type Qualified Code(s): R19.7 - Diarrhea, unspecified (5) Ankle fracture, left Encounter type: initial encounter Fracture type: closed Qualified Code(s): S82.892A - Other fracture of left lower leg, initial encounter for closed fracture (6) Hypertension Hypertension type: unspecified Qualified Code(s): I10 - Essential (primary) hypertension
[2018-12-10] MEDS: INSULIN REGULAR 250 UNITS in SODIUM CHLORIDE 0.9% 247.5 ML IV SCH (18:41)
[2018-12-10] MEDS: PENDING D5 1/2NS+20mEq KCL IVF SCH ×2 (19:04→19:28)
[2018-12-10] MEDS: PENDING 1/2NSS+20mEq KCL IVF SCH ×2 (19:04→19:28)
[2018-12-10] MEDS: ATORVASTATIN 20 MG TAB PO SCH (20:42)
[2018-12-10] MEDS: FENOFIBRATE NANOCRYSTALLIZED 145 MG TABLET PO SCH (20:42)
[2018-12-10] MEDS ORDERED: INSULIN GLARGINE SOLOSTAR 100 UNITS/ML 3 ML PEN SC SCH ×2 (21:00)
[2018-12-11] MEDS: fentaNYL citrate 100 MCG/2 ML VIAL IV PRN (01:22)
[2018-12-11] MEDS: ACETAMINOPHEN 1,000 MG/100 ML VIAL IV PRN (05:12)
[2018-12-11 05:31] LABS: Hematocrit (blood only) 35.4 % (37-47); Hemoglobin 11.5 g/dL (12.0-16.0); Mean Corpuscular Hemoglobin 24.4 pg (25-34); Mean Corpuscular Hgb Conc 32.5 g/dL (32-36); Mean Corpuscular Volume 75.2 fL (80-100); Mean Platelet Volume 10.1 fL (7.4-10.4); Platelet Count 216 K/uL (130-400); RDW Coefficient of Variation 16.6 % (11.5-14.5); RDW Standard Deviation 45.4 fL (36.4-46.3); Red Blood Count 4.71 M/uL (4.2-5.4); White Blood Count 6.89 K/uL (4.8-10.8)
[2018-12-11 05:48] LABS: BUN Creatinine Ratio 19.6 (10-20); Calcium 8.3 mg/dl (8.5-10.1); Creatinine Clr Calc Pharmacy 56.1 ml/min; Est GFR (African American) 54.3; Est GFR (Non-African American) 46.9; Phosphorus 1.9 mg/dl (2.5-4.9)
[2018-12-11] MEDS: SODIUM BICARBONATE 8.4% 150 MEQ in DEXTROSE 5% 1,000 ML IV SCH (06:23)
[2018-12-11] MEDS: HEPARIN SOD 5,000 UNIT/0.5 ML VIAL SQ SCH ×3 (06:25→21:55)
[2018-12-11 06:27] LABS: Estimated Average Glucose 315 mg/dl; Hemoglobin A1C 12.6 % (4.5-5.6)
[2018-12-11] MEDS: TRAMADOL HCL 50 MG TABLET PO PRN ×3 (07:23→17:21)
[2018-12-11] MEDS ORDERED: POTASSIUM PHOS 3 MMOL/1 ML INFUSION IV STA (07:37)
--- NOTE | 2018-12-11 07:47 | Nephrology Progress Note ---
Date of Service December 11, 2018 Assessment & Plan (1) Acute renal failure (ARF): prerenal OK in setting of hyperglycemia and diarrhea. >> OK has resolved; d/w Dr Kwan earlier today >> stopped bicarb gtt and resumed po bicarb -see below re gtt -daily bmp -strict I/O -avoid nsaids (2) Acidosis, metabolic: difficult to call her presentation DKA w/o ketonuria, elevated B hydroxybutyrate, elevated serum osmolality >> that said, she has a hx of rapid decompensation from MS and respiratory standpoint. acidosis improving today and likely multifactorial/ acute on chronic >> from malabsorption, diarrhea, hyperglycemia, dehydration -daily labs -she is on massive bicarb doses w/ bicarb gtt and po bicarb >> does not need both; stopped bic gtt and cont po bicarb -negative blood cxs given leukocytosis, concern for DKA on presentation; doubt UTI given contaminated specimen w/ minimal bacteria on presentation though some urinary inflammation noted (3) Ankle fracture, left: need to optimize metabolically before OR and at goal currently; bmp in am (4) Recurrent falls: per critical care and primary service; may be in part d/t electrolyte abnormalities Subjective seen on evenign rounds 1800 >> diaphoretic, weeping and c/o 10/10 L ankle pain; had just had tramadol per nursing; ate full supper; for OR in am; no sob, no edema Review of Systems Review of Systems: All systems reviewed & are unremarkable except as noted in HPI & below Cardiovascular: no chest pain, no palpitations and no edema Physical Exam Constitutional: well developed, well nourished and + acute distress (as per HPI) Eyes: EOM intact bilaterally ENMT: Ears: no external ear abnormality Nose: no external nose abnormality Mouth: + dry oral mucous membranes Neck: no nuchal rigidity Respiratory: normal respiratory effort Auscultation: + diminished lung soun ds Cardiovascular: RRR, no murmur, no edema Gastrointestinal (Abdomen): Inspection/Auscultation: normal bowel sounds Percussion/Palpation: abdomen soft; abdomen nontender Musculoskeletal: Extremities: strength 5/5 throughout Skin: no rashes, warm and dry Neurologic: pizarro, fluent speech no tremor Psychiatric: Orientation: alert and oriented x 3 Affect: + tearful affect Results & Data Vital Signs (Past 12 Hours) Vital Signs Temp Pulse BP Pulse Ox 12/11/18 06:00 75 138/80 98 12/11/18 05:00 79 150/84 H 99 12/11/18 04:00 36.8 C 77 151/78 H 98 12/11/18 03:00 80 146/86 H 97 12/11/18 02:00 81 138/77 96 12/11/18 01:00 86 160/87 H 97 12/11/18 00:00 37 C 85 139/73 96 12/10/18 23:00 87 136/88 97 12/10/18 22:00 86 160/86 H 97 12/10/18 21:00 84 154/74 H 96 12/10/18 20:00 37.1 C 86 153/101 H 100 Laboratory Results Abnormal lab results 12/10/18 12/10/18 12/10/18 Range/Units 08:05 08:12 08:12 Hgb (12.0-16.0) g/dL Hct (37-47) % MCV (80-100) fL MCH (25-34) pg RDW Coeff of Chidi (11.5-14.5) % VBG pH 7.19 L (7.36-7.41) Potassium (3.5-5.1) mmol/L Chloride 108 H (98-107) mmol/L Carbon Dioxide 19 L (21-32) mmol/L BUN 50 H (7-18) mg/dl Creatinine 2.92 H D (0.6-1.2) mg/dl Glucose 224 H (70-99) mg/dl POC Glucose 245 H (70-99) Hemoglobin A1c (4.5-5.6) % Calcium (8.5-10.1) mg/dl Phosphorus (2.5-4.9) mg/dl 12/10/18 12/10/18 12/10/18 Range/Units 09:51 11:45 11:47 Hgb (12.0-16.0) g/dL Hct (37-47) % MCV (80-100) fL MCH (25-34) pg RDW Coeff of Chidi (11.5-14.5) % VBG pH (7.36-7.41) Potassium (3.5-5.1) mmol/L Chloride 109 H (98-107) mmol/L Carbon Dioxide (21-32) mmol/L BUN 44 H (7-18) mg/dl Creatinine 2.44 H D (0.6-1.2) mg/dl Glucose 207 H (70-99) mg/dl POC Glucose 231 H 213 H (70-99) Hemoglobin A1c (4.5-5.6) % Calcium 8.2 L (8.5-10.1) mg/dl Phosphorus 2.3 L (2.5-4.9) mg/dl 12/10/18 12/10/18 12/10/18 Range/Units 11:47 13:43 14:59 Hgb (12.0-16.0) g/dL Hct (37-47) % MCV (80-100) fL MCH (25-34) pg RDW Coeff of Chidi (11.5-14.5) % VBG pH 7.25 L (7.36-7.41) Potassium (3.5-5.1) mmol/L Chloride (98-107) mmol/L Carbon Dioxide (21-32) mmol/L BUN (7-18) mg/dl Creatinine (0.6-1.2) mg/dl Glucose (70-99) mg/dl POC Glucose 250 H 248 H (70-99) Hemoglobin A1c (4.5-5.6) % Calcium (8.5-10.1) mg/dl Phosphorus (2.5-4.9) mg/dl 12/10/18 12/10/18 12/10/18 Range/Units 15:41 15:41 15:53 Hgb (12.0-16.0) g/dL Hct (37-47) % MCV (80-100) fL MCH (25-34) pg RDW Coeff of Chidi (11.5-14.5) % VBG pH 7.30 L (7.36-7.41) Potassium 5.2 H D (3.5-5.1) mmol/L Chloride 110 H (98-107) mmol/L Carbon Dioxide (21-32) mmol/L BUN 37 H (7-18) mg/dl Creatinine 1.98 H D (0.6-1.2) mg/dl Glucose 215 H (70-99) mg/dl POC Glucose 196 H (70-99) Hemoglobin A1c (4.5-5.6) % Calcium 8.1 L (8.5-10.1) mg/dl Phosphorus 2.1 L (2.5-4.9) mg/dl 12/10/18 12/10/18 12/10/18 Range/Units 16:56 18:05 19:07 Hgb (12.0-16.0) g/dL Hct (37-47) % MCV (80-100) fL MCH (25-34) pg RDW Coeff of Chidi (11.5-14.5) % VBG pH (7.36-7.41) Potassium (3.5-5.1) mmol/L Chloride (98-107) mmol/L Carbon Dioxide (21-32) mmol/L BUN (7-18) mg/dl Creatinine (0.6-1.2) mg/dl Glucose (70-99) mg/dl POC Glucose 136 H 158 H 129 H (70-99) Hemoglobin A1c (4.5-5.6) % Calcium (8.5-10.1) mg/dl Phosphorus (2.5-4.9) mg/dl 12/10/18 12/10/18 12/10/18 Range/Units 20:01 21:00 22:05 Hgb (12.0-16.0) g/dL Hct (37-47) % MCV (80-100) fL MCH (25-34) pg RDW Coeff of Chidi (11.5-14.5) % VBG pH (7.36-7.41) Potassium (3.5-5.1) mmol/L Chloride (98-107) mmol/L Carbon Dioxide (21-32) mmol/L BUN (7-18) mg/dl Creatinine (0.6-1.2) mg/dl Glucose (70-99) mg/dl POC Glucose 115 H 144 H 186 H (70-99) Hemoglobin A1c (4.5-5.6) % Calcium (8.5-10.1) mg/dl Phosphorus (2.5-4.9) mg/dl 12/10/18 12/11/18 12/11/18 Range/Units 23:05 00:03 00:59 Hgb (12.0-16.0) g/dL Hct (37-47) % MCV (80-100) fL MCH (25-34) pg RDW Coeff of Chidi (11.5-14.5) % VBG pH (7.36-7.41) Potassium (3.5-5.1) mmol/L Chloride (98-107) mmol/L Carbon Dioxide (21-32) mmol/L BUN (7-18) mg/dl Creatinine (0.6-1.2) mg/dl Glucose (70-99) mg/dl POC Glucose 160 H 163 H 166 H (70-99) Hemoglobin A1c (4.5-5.6) % Calcium (8.5-10.1) mg/dl Phosphorus (2.5-4.9) mg/dl 12/11/18 12/11/18 12/11/18 Range/Units 03:01 04:52 04:52 Hgb 11.5 L D (12.0-16.0) g/dL Hct 35.4 L (37-47) % MCV 75.2 L (80-100) fL MCH 24.4 L (25-34) pg RDW Coeff of Chidi 16.6 H (11.5-14.5) % VBG pH (7.36-7.41) Potassium (3.5-5.1) mmol/L Chloride (98-107) mmol/L Carbon Dioxide (21-32) mmol/L BUN (7-18) mg/dl Creatinine (0.6-1.2) mg/dl Glucose (70-99) mg/dl POC Glucose 144 H (70-99) Hemoglobin A1c 12.6 H (4.5-5.6) % Calcium (8.5-10.1) mg/dl Phosphorus (2.5-4.9) mg/dl 12/11/18 12/11/18 12/11/18 Range/Units 04:52 04:54 07:01 Hgb (12.0-16.0) g/dL Hct (37-47) % MCV (80-100) fL MCH (25-34) pg RDW Coeff of Chidi (11.5-14.5) % VBG pH (7.36-7.41) Potassium (3.5-5.1) mmol/L Chloride (98-107) mmol/L Carbon Dioxide (21-32) mmol/L BUN 27 H (7-18) mg/dl Creatinine 1.36 H D (0.6-1.2) mg/dl Glucose 130 H (70-99) mg/dl POC Glucose 135 H 122 H (70-99) Hemoglobin A1c (4.5-5.6) % Calcium 8.3 L (8.5-10.1) mg/dl Phosphorus 1.9 L (2.5-4.9) mg/dl (1) Acute renal failure (ARF) Acute renal failure type: unspecified Qualified Code(s): N17.9 - Acute kidney failure, unspecified (2) Ankle fracture, left Encounter type: initial encounter Fracture type: closed Qualified Code(s): S82.892A - Other fracture of left lower leg, initial encounter for closed fracture
[2018-12-11] MEDS ORDERED: POTASSIUM PHOSPHATE 15 MMOL in SODIUM CHLORIDE 0.9% 250 ML IV ONE (08:00)
--- NOTE | 2018-12-11 08:10 | Orthopedic Progress Note ---
Date of Service December 11, 2018 Assessment & Plan (1) Closed left ankle fracture: Will need ORIF Left fibula with Syndesmotic screw placement likely. Plan for OR when medically cleared. Subjective Pt moved up to PCU from SICU. Awake, alert. No complaints currently. Physical Exam Physical Exam: Splint intact on LLE. Toes mobile. Numbness noted in in toes. h/o Neuropathy but seems more numb L>R. Cap refill < 2 seconds. Results & Data Vital Signs (Past 12 Hours) Vital Signs Temp Pulse Pulse Resp BP BP Pulse Ox 12/11/18 07:44 36.6 C 68 18 151/90 H 96 12/11/18 06:00 75 138/80 98 12/11/18 05:00 79 150/84 H 99 12/11/18 04:00 36.8 C 77 151/78 H 98 12/11/18 03:00 80 146/86 H 97 12/11/18 02:00 81 138/77 96 12/11/18 01:00 86 160/87 H 97 12/11/18 00:00 37 C 85 139/73 96 12/10/18 23:00 87 136/88 97 12/10/18 22:00 86 160/86 H 97 12/10/18 21:00 84 154/74 H 96 (1) Closed left ankle fracture Encounter type: initial encounter Qualified Code(s): S82.892A - Other fracture of left lower leg, initial encounter for closed fracture
[2018-12-11] MEDS: INSULIN ASPART 100 UNITS/ML 3 ML PEN SC SCH ×4 (08:21→21:54)
[2018-12-11] MEDS: AMLODIPINE BESYLATE 5 MG TAB PO SCH (08:36)
[2018-12-11] MEDS: PREGABALIN 75 MG CAP PO SCH (08:40)
[2018-12-11] MEDS: PANTOprazole 40 MG TAB PO SCH (08:40)
[2018-12-11] MEDS: PROPRANOLOL HCL 60 MG LA CAP PO SCH ×2 (08:40→21:54)
[2018-12-11] MEDS: OMEGA-3 (PURIFIED FISH OIL) 1 GM CAP PO SCH ×2 (08:41→21:54)
[2018-12-11] MEDS ORDERED: INSULIN GLARGINE SOLOSTAR 100 UNITS/ML 3 ML PEN SC ONE ×2 (10:30→21:00)
[2018-12-11] MEDS: HYDROmorphone INJ 0.5 MG/0.5 ML SYR IV PRN ×2 (11:51→18:04)
--- NOTE | 2018-12-11 14:17 | Pharmacy Report ---
Pharmacy Glycemic Short Note 2 - Date of Service December 11, 2018 - Glycemic Short BSG Results (Last 24 hours): 12/10/18 12/10/18 12/10/18 14:59 15:41 15:53 Glucose 215 H POC Glucose 248 H 196 H 12/10/18 12/10/18 12/10/18 16:56 18:05 19:07 Glucose POC Glucose 136 H 158 H 129 H 12/10/18 12/10/18 12/10/18 20:01 21:00 22:05 Glucose POC Glucose 115 H 144 H 186 H 12/10/18 12/11/18 12/11/18 23:05 00:03 00:59 Glucose POC Glucose 160 H 163 H 166 H 12/11/18 12/11/18 12/11/18 03:01 04:52 04:54 Glucose 130 H POC Glucose 144 H 135 H 12/11/18 12/11/18 12/11/18 07:01 09:06 10:57 Glucose POC Glucose 122 H 124 H 124 H 12/11/18 13:03 Glucose POC Glucose 146 H OUTPATIENT ANTIDIABETIC REGIMEN: * Tresiba 120 units SQ qHS * Humalog 30 units SQ TID * Actos 30 mg PO daily * HbA1c: 12.6% 12/11/18 ASSESSMENT: 12/11 * Ms. Hernandez received a total of 120 units of insulin in an effort to begin transition off of insulin drip, despite these doses insulin infusion still running at 4.2 ml/hr * Patient did have dextrose in bicarb fluid which was discontinued ~11AM, patient also received 80 units of insulin at this time, suspect drip rate will be able to come down with these changes * Ideally would like to stop infusion when drip rate is <2 and two BSGs within goal range, patient has started 2 hours checks, last check 146- no change in infusion, this was however ~30 minutes after eating, if no change at next check will do 20% reduction to 3.4 units/hr and schedule additional lantus * Patient to be NPO at midnight so do not want to overload on lantus * Continue to work on transition 12/10 * Ms Hernandez is a 43yo diabetic female admitted last evening with DKA. She is familiar to the pharmacy glycemic service from past admissions. * Patient was initiated on an IV insulin infusion on admission, with some improvement in labs today: * Labs on admission: BSG 338, AG 15, CO2 15, pH 7.2, SCr 4.67 * Most recent labs: BSG 250, AG 8, CO2 21, pH 7.25, SCr 2.44 * Patient is still receiving IVF containing dextrose. She is ordered a clear liquid diet. * Lantus initiated in an effort to begin transition to SQ insulin. PLAN FOR INPATIENT GLYCEMIC CONTROL: * Hold outpatient oral diabetes medications * Basal insulin * Lantus 100 units thus far today, plus additional dose tonight based on BSGs * Continue IV insulin infusion until BSGs are <180 mg/dL x2 consecutive checks AND insulin infusion rate is less than 2 units/hr * Bolus insulin * NovoLog per scale ACHS or Q6hrs while NPO * Goal Range: Low 110 mg/dL - High 180 mg/dL (100-140 mg/dL once drip is stopped) * Correction Factor: 10 mg/dL/unit (once drip is stopped) * Nutritional / Prandial insulin per carb ratio of 1 unit per 4 grams CHO consumed Discharge Recommendations: Pending
--- NOTE | 2018-12-11 16:52 | Hospitalist Progress Note ---
Date of Service December 11, 2018 Assessment & Plan (1) DKA (diabetic ketoacidoses): (2) Acidosis, metabolic: (3) Diabetes mellitus type 1: Present on admission with generalized weakness and falls Non compliant with Insulin Hba1c 12.6 Lab on admission showed glucose 338, anion gap 15, pH 7.2, HCO3 was 15 Was started on DKA protocol On IV sodium bicarb discontinued On insulin drip that has been managed by the pharmacy Anion gap closed Continue Lantus Continue monitor electrolytes Monitor BS closely (4) ARF (acute renal failure): Creatinine on admission 4.6 Due to dehydration from DKA CT abd/pelvis showed no hydronephrosis. Received IV fluid Creatinine improved to 1.3 Nephrology on board Continue to hold lasix Avoid nephrotoxic agents Monitor BMP (5) Ankle fracture, left: L Ankle xray showed bimalleolar left ankle fracture/dislocation. Ortho on board plan to take to OR on Mon Continue pain control Fall precaution Will make NPO after midnight (6) Diarrhea: CT abd/pelvis showed no definite bowel wall thickening or obstruction. Stool for Cdiff not collected since pt had not had diarrhea Continue monitor (7) Leukocytosis: Mostly related to stress (reactive) WBC 18K on admission WBC back to normal Afebrile and lactate normal on admission resolved (8) Hypertension: BP fluctuated Continue amlodipine and propanolol Furosemide on hold due to OK (9) Dyslipidemia: Continue statin and fenofibrate (10) Anxiety: (11) Depression: On duloxetine Will resume home dose Lyrica Low Phosphate Phos replaced Continue Monitor (12) DVT prophylaxis: On SQ heparin CODE STATUS FULL CODE Disposition Continue monitor in tele Subjective Pt was seen and examined Lying in bed with no distress Pt said that she feels ok She continues to have pain in her L ankle Denies any chest pain, palpitation, dizziness and SOB Physical Exam Physical Exam: General- No acute distress Head- atraumatic Eyes- PERRL, EOMI, ENT- oropharynx clear Neck- supple, no JVD Lungs- clear to auscultation Heart- regular rhythm; no murmur Abdomen- normal bowel sounds, soft, nontender Extremities- no calf tenderness, +left ankle in splint, +ankle tenderness, able to move her toes Neuro- alert, oriented x 3; PERRL, EOMI; no facial palsy; no dysarthria Skin- warm & dry Results & Data Vital Signs (Past 12 Hours) Vital Signs Temp Pulse Pulse Resp BP BP Pulse Ox 12/11/18 16:09 36.6 C 63 18 144/89 H 94 12/11/18 11:35 36.5 C 75 18 149/82 H 96 12/11/18 08:00 76 12/11/18 07:44 36.6 C 68 18 151/90 H 96 12/11/18 06:00 75 138/80 98 12/11/18 05:00 79 150/84 H 99 (1) DKA (diabetic ketoacidoses) Diabetes mellitus complication detail: without coma Diabetes mellitus type: type 1 Qualified Code(s): E10.10 - Type 1 diabetes mellitus with ketoacidosis without coma (2) ARF (acute renal failure) Acute renal failure type: unspecified Qualified Code(s): N17.9 - Acute kidney failure, unspecified (3) Diabetes mellitus type 1 Diabetes mellitus complication detail: with chronic kidney disease Diabetes mellitus complication status: with kidney complications (4) Diarrhea Diarrhea type: unspecified type Qualified Code(s): R19.7 - Diarrhea, unspecified (5) Ankle fracture, left Encounter type: initial encounter Fracture type: closed Qualified Code(s): S82.892A - Other fracture of left lower leg, initial encounter for closed fracture (6) Hypertension Hypertension type: unspecified Qualified Code(s): I10 - Essential (primary) hypertension
[2018-12-11] MEDS ORDERED: INSULIN GLARGINE SOLOSTAR 100 UNITS/ML 3 ML PEN SC SCH (21:00)
[2018-12-11] MEDS: ATORVASTATIN 20 MG TAB PO SCH (21:53)
[2018-12-11] MEDS: DULOXETINE HCL 60 MG CAP PO SCH (21:53)
[2018-12-11] MEDS: FENOFIBRATE NANOCRYSTALLIZED 145 MG TABLET PO SCH (21:54)
[2018-12-11] MEDS: PREGABALIN 100 MG CAP PO SCH (21:58)
[2018-12-11] MEDS: INSULIN REGULAR 250 UNITS in SODIUM CHLORIDE 0.9% 247.5 ML IV SCH (23:08)
[2018-12-12] MEDS: HYDROmorphone INJ 0.5 MG/0.5 ML SYR IV PRN ×5 (01:52→23:31)
[2018-12-12] MEDS: HEPARIN SOD 5,000 UNIT/0.5 ML VIAL SQ SCH ×3 (05:28→21:32)
[2018-12-12 06:11] LABS: Hemoglobin 12.6 g/dL (12.0-16.0); Mean Corpuscular Hemoglobin 24.6 pg (25-34); Mean Corpuscular Hgb Conc 32.3 g/dL (32-36); Mean Platelet Volume 10.8 fL (7.4-10.4); Platelet Count 278 K/uL (130-400); RDW Coefficient of Variation 16.9 % (11.5-14.5); RDW Standard Deviation 46.5 fL (36.4-46.3); Red Blood Count 5.13 M/uL (4.2-5.4); White Blood Count 11.34 K/uL (4.8-10.8)
[2018-12-12 07:02] LABS: BUN Creatinine Ratio 19.8 (10-20); Calcium 9.4 mg/dl (8.5-10.1); Creatinine Clr Calc Pharmacy 82.2 ml/min; Est GFR (African American) 83.8; Est GFR (Non-African American) 72.3; Phosphorus 3.1 mg/dl (2.5-4.9)
[2018-12-12] MEDS: PROPRANOLOL HCL 60 MG LA CAP PO SCH ×2 (07:40→21:31)
[2018-12-12] MEDS: AMLODIPINE BESYLATE 5 MG TAB PO SCH (07:40)
[2018-12-12] MEDS: PANTOprazole 40 MG TAB PO SCH (07:40)
[2018-12-12] MEDS: OMEGA-3 (PURIFIED FISH OIL) 1 GM CAP PO SCH ×2 (07:41→21:31)
[2018-12-12] MEDS: PREGABALIN 100 MG CAP PO SCH ×3 (07:43→21:31)
[2018-12-12] MEDS: INSULIN GLARGINE SOLOSTAR 100 UNITS/ML 3 ML PEN SC SCH (08:12)
[2018-12-12] MEDS: INSULIN ASPART 100 UNITS/ML 3 ML PEN SC SCH ×4 (08:12→21:23)
[2018-12-12] MEDS: SODIUM BICARBONATE 650 MG TAB PO SCH ×4 (09:10→23:26)
--- NOTE | 2018-12-12 15:18 | Pharmacy Report ---
Pharmacy Glycemic Short Note 2 - Date of Service December 12, 2018 - Glycemic Short BSG Results (Last 24 hours): 12/11/18 12/11/18 12/11/18 15:01 16:10 17:09 Glucose POC Glucose 111 H 98 123 H 12/11/18 12/11/18 12/11/18 18:18 19:04 20:06 Glucose POC Glucose 149 H 138 H 117 H 12/11/18 12/11/18 12/12/18 20:10 21:18 01:55 Glucose POC Glucose 128 H 117 H 152 H 12/12/18 12/12/18 12/12/18 05:34 07:09 11:40 Glucose 173 H POC Glucose 173 H 170 H OUTPATIENT ANTIDIABETIC REGIMEN: * Tresiba 120 units SQ qHS * Humalog 30 units SQ TID * Actos 30 mg PO daily * HbA1c: 12.6% 12/11/18 ASSESSMENT: 12/12: * Pt received total received total of around 150 units of insulin yesterday which includes estimated 24 hr insulin drip and 100 units of Lantus. * Fasting BSG = 173 today. AM Lantus dose was increased to 90 units. HS dose also increased and ordered based on a scale upto max of 30 units tonight. * Will continue with current parameters for Novolog SQ. * Patient was NPO this morning for procedure today at 3 pm. 12/11 * Ms. Hernandez received a total of 120 units of insulin in an effort to begin transition off of insulin drip, despite these doses insulin infusion still running at 4.2 ml/hr * Patient did have dextrose in bicarb fluid which was discontinued ~11AM, patient also received 80 units of insulin at this time, suspect drip rate will be able to come down with these changes * Ideally would like to stop infusion when drip rate is <2 and two BSGs within goal range, patient has started 2 hours checks, last check 146- no change in infusion, this was however ~30 minutes after eating, if no change at next check will do 20% reduction to 3.4 units/hr and schedule additional lantus * Patient to be NPO at midnight so do not want to overload on lantus * Continue to work on transition 12/10 * Ms Hernandez is a 43yo diabetic female admitted last evening with DKA. She is familiar to the pharmacy glycemic service from past admissions. * Patient was initiated on an IV insulin infusion on admission, with some improvement in labs today: * Labs on admission: BSG 338, AG 15, CO2 15, pH 7.2, SCr 4.67 * Most recent labs: BSG 250, AG 8, CO2 21, pH 7.25, SCr 2.44 * Patient is still receiving IVF containing dextrose. She is ordered a clear liquid diet. * Lantus initiated in an effort to begin transition to SQ insulin. PLAN FOR INPATIENT GLYCEMIC CONTROL: * Hold outpatient oral diabetes medications and Tresiba * Basal insulin: increased * Lantus 90 units this AM, plus additional dose tonight based on scale as follows: - BSG less than 160= 10 units - BSG 160 - 200 = 20 units - BSG greater than 200 = 30 units * Bolus insulin: continued * NovoLog per scale ACHS or Q6hrs while NPO * Goal Range: Low 110 mg/dL - High 140 mg/dL * Correction Factor: 10 mg/dL/unit * Nutritional / Prandial insulin per carb ratio of 1 unit per 4 grams CHO consumed Discharge Recommendations: Pending
[2018-12-12] MEDS ORDERED: BUPIVACAINE/EPINEPHRINE 0.5% MPF 1:200,000 30 ML VIAL ONE (16:00)
--- NOTE | 2018-12-12 16:42 | Anesthesiology Consultation ---
Date of Service December 12, 2018 Assessment & Plan (1) Encounter for pre-operative examination: Chart Review Chart Review: Acceptable Risk for Surgery and Patient NOT seen in Pre Admission Testing Consults Requested none History Surgery Operation Date: 12/12/18 07:00 Proposed Procedures p Left Distal Fibula Open Reduction Internal Fixation with Syndesmotic Screw Placement - Mode Gray DO Height/Weight Height: 5 ft 4 in Weight: 92.1 kg Allergies Allergy/AdvReac Type Severity Reaction Status Date / Time bee venom protein (honey bee) Allergy Intermediate RED, SHORT Verified 12/09/18 17:46 OF BREATH No Known Drug Allergies Allergy Unknown NKDA Verified 12/09/18 17:46 Medications Home Medications Medication Instructions Recorded Confirmed Last Taken Tresiba FlexTouch U-100 120 unit SUBCUT HS 12/28/17 12/09/18 06/14/18 17:30 albuterol sulfate 2 puff INHALATION Q4H PRN 12/28/17 12/09/18 12/28/17 amlodipine 10 mg PO QAM 12/28/17 12/09/18 12/28/17 atorvastatin 20 mg PO HS 12/28/17 12/09/18 06/13/18 18:00 duloxetine [Cymbalta] 60 mg PO QPM 12/28/17 12/09/18 06/14/18 17:30 esomeprazole magnesium 40 mg PO QAM 12/28/17 12/09/18 06/14/18 07:00 fenofibrate 160 mg PO HS 12/28/17 12/09/18 06/13/18 18:00 insulin lispro [Humalog U-100 30 unit SUBCUT TID 12/28/17 12/09/18 06/14/18 17:30 Insulin] omega 5-[id number]-[id number]-fish oil [Fish Oil] 1 tab PO BID 12/28/17 12/09/18 06/14/18 17:30 pregabalin [Lyrica] 100 mg PO TID 12/28/17 12/09/18 06/14/18 17:30 propranolol 120 mg PO BID 12/28/17 12/09/18 06/15/18 03:30 sodium bicarbonate 3 tab PO QID 12/28/17 12/09/18 06/14/18 17:30 magnesium chloride [Mag 64] 64 mg PO BID #60 tab 12/31/17 12/09/18 06/14/18 17:30 ondansetron [Zofran ODT] 4 mg PO Q6H PRN #90 tab 01/10/18 12/09/18 Unknown baclofen 10 mg PO TID PRN 12/09/18 12/09/18 Unknown fluticasone propionate [Flonase 2 spray INTRANASAL DAILY 12/09/18 12/09/18 Unknown Allergy Relief] furosemide [Lasix] 20 mg PO DAILY 12/09/18 12/09/18 Unknown pioglitazone [Actos] 30 mg PO DAILY 12/09/18 12/09/18 Unknown prochlorperazine maleate 10 mg PO TID PRN 12/09/18 12/09/18 Unknown [Compazine] Active Medications Generic Name Dose Route Start Last Admin Trade Name Freq PRN Reason Stop Dose Admin Amlodipine Besylate 10 mg 12/10/18 09:00 12/12/18 07:40 Norvasc PO 01/09/19 08:59 10 mg QAM URMILA Administration Atorvastatin Calcium 20 mg 12/09/18 21:00 12/11/18 21:53 Lipitor PO 01/08/19 20:59 20 mg HS URMILA Administration Duloxetine HCl 60 mg 12/11/18 21:00 12/11/18 21:53 Cymbalta PO 01/10/19 20:59 60 mg QPM URMILA Administration Fenofibrate 145 mg 12/09/18 21:00 12/11/18 21:54 Tricor PO 01/08/19 20:59 145 mg HS URMILA Administration Fish Oil 1 gm 12/09/18 21:00 12/12/18 07:41 [place]-3 (Purified Fish Oil) PO 01/08/19 20:59 1 gm BID URMILA Administration Heparin Sodium (Porcine) 5,000 units 12/09/18 22:00 12/12/18 13:58 Heparin Sodium (Porcine) SQ 01/08/19 21:59 Not Given Q8 URMILA Hydromorphone HCl 0.5 mg 12/11/18 06:21 12/12/18 14:52 Dilaudid IV 12/25/18 06:20 0.5 mg Q3H PRN Administration Pain Acetaminophen 1,000 mg in 100 mls @ 400 mls/hr 12/09/18 20:39 12/11/18 05:40 Ofirmev IV 01/08/19 20:38 Infused Q8H PRN Infusion pAIN mild 1-3 Insulin Aspart 0 units 12/12/18 07:30 12/12/18 11:41 Novolog Flexpen SC 01/11/19 07:29 3 units ACHS URMILA Administration Protocol Insulin Glargine 90 units 12/12/18 09:00 12/12/18 08:12 Lantus Solostar Pen SC 01/11/19 08:59 90 units QAM URMILA Administration Pantoprazole Sodium 40 mg 12/10/18 09:00 12/12/18 07:40 Protonix PO 01/09/19 08:59 40 mg DAILY URMILA Administration Pregabalin 100 mg 12/11/18 21:00 12/12/18 13:55 Lyrica PO 01/10/19 20:59 100 mg TID URMILA Administration Propranolol HCl 120 mg 12/09/18 21:00 12/12/18 07:40 Inderal La PO 01/08/19 20:59 120 mg BID URMILA Administration Sodium Bicarbonate 1,950 mg 12/09/18 21:00 12/12/18 13:56 Sodium Bicarbonate PO 01/08/19 20:59 1,950 mg QID URMILA Administration Tramadol HCl 25 - 50 mg 12/11/18 06:20 12/11/18 17:21 Ultram PO 01/10/19 06:19 50 mg Q4H PRN Administration Pain NPO Date Last Intake of Fluids: 12/11/18 Time Last Intake of Fluids: 22:00 Date Last Intake of Solids: 12/11/18 Time Last Intake of Solids: 18:00 Past Medical History Medical History Depression (Chronic) Hx of Clostridium difficile infection (Resolved) 2011 - TREATED History of renal dialysis (Resolved) - [facility] - ARF 2/2 DKA Kidney stones (Chronic) History of endometriosis (Chronic) Anxiety (Chronic) Fracture of rib of right side (Resolved) Anemia of chronic disease (Chronic) Chronic nausea (Chronic) Suppurative hidradenitis (Chronic) Hypertension (Chronic) GERD (gastroesophageal reflux disease) (Chronic) Metabolic acidosis (Chronic) "recurrent" Diabetes mellitus type 1 (Chronic) HISTORY MULTIPLE EPISODES DKA Dyslipidemia (Chronic) Past Family History Family History Mother Diabetes Past Surgical History Surgical History History of ileostomy (Resolved) History of reversal of ileostomy (Chronic) History of lumbar spinal fusion (Chronic) History of rotator cuff surgery (Chronic) RT Hx of tracheostomy (Resolved) R/T COMPLICATIONS AFTER ILEOSTOMY REVERSAL SURGERY IN 2011; HAS SINCE BEEN REVERSED 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" Status post cholecystectomy (Chronic) "cholelithiasis" Social History Smoking Status: Current every day smoker tobacco type: cigarettes Smoking cigarettes per day: 5 Do You Dip or Chew Tobacco: No Hx Alcohol Use: Yes Hx Substance Use: No substance use type: does not use Physical Exam Vital Signs Last Vital Signs Temp 37.3 C 12/12/18 16:12 Pulse 65 12/12/18 16:12 Resp 16 12/12/18 16:12 BP 159/89 H 12/12/18 16:12 Pulse Ox 95 12/12/18 16:12 Testing Laboratory Results 12/12/18 05:34 12/12/18 07:14 PT 10.5 Seconds (9.0-12.0) 12/09/18 17:58 INR 1.0 (0.9-1.1) 12/09/18 17:58 APTT 28.8 Seconds (21.0-31.0) 12/09/18 17:58 Hemoglobin A1c 12.6 % (4.5-5.6) H 12/11/18 04:52 Urine Color Yellow 12/10/18 05:00 Urine Appearance Cloudy (Clear) A 12/10/18 05:00 Urine pH 5.5 (4.5-7.5) 12/10/18 05:00 Ur Specific [place] 1.016 (1.000-1.030) 12/10/18 05:00 Urine Protein 2+ (Negative) H 12/10/18 05:00 Urine Glucose (UA) 2+ (Negative) H 12/10/18 05:00 Urine Ketones Negative (Negative) 12/10/18 05:00 Urine Nitrite Negative (Negative) 12/10/18 05:00 Ur Leukocyte Esterase 2+ (Negative) H 12/10/18 05:00 Urine WBC (Auto) 10-30 /hpf (0-5) H 12/10/18 05:00 Urine RBC (Auto) 0-4 /hpf (0-4) 12/10/18 05:00 U Hyaline Cast (Auto) 5-10 /lpf (0-5) H 12/10/18 05:00 U Epithel Cells (Auto) >30 /lpf (0-5) H 12/10/18 05:00 Urine Bacteria (Auto) 1+ (Negative) H 12/10/18 05:00 12/10/18 05:00 Urine Culture - Final Urine,Clean Catch More than three types of organisms present, all high co unts. Repeat collection recommended. No further identifications or sensitivities to follow. 12/12/18 12/12/18 11:40 07:09 POC Glucose 170 H 173 H Electrocardiogram Date: 12/09/18 SR rate 76 with PVCs, ST and T wave abnormality consider lateral ischemia, similar to EKG from 06/09/18 except for new onset PVCs Chest X-Ray Date: 12/09/18 Findings: + NAD
[2018-12-12] MEDS ORDERED: ATROPINE SULFATE 0.1 MG/ML 10ML SYR IV PRN (16:45)
[2018-12-12] MEDS ORDERED: ONDANSETRON INJ 2 MG/ML 2 ML VIAL IV PRN (16:45)
[2018-12-12] MEDS ORDERED: HYDROmorphone INJ 2 MG/ML SYR/VIAL IV PRN (16:45)
[2018-12-12] MEDS ORDERED: ePHEDrine sulfate 50 MG/ML AMP IV PRN (16:45)
[2018-12-12] MEDS ORDERED: fentaNYL citrate 100 MCG/2 ML VIAL IV PRN (16:45)
[2018-12-12] MEDS ORDERED: PHENYLEPHRINE 100MCG/ML 5ML SYR IV PRN (16:45)
[2018-12-12] MEDS ORDERED: LABETALOL HCL IV 5 MG/ML 20ML IV PRN (16:45)
--- NOTE | 2018-12-12 16:55 | Nephrology Progress Note ---
Date of Service December 12, 2018 Assessment & Plan (1) Acute renal failure (ARF): prerenal OK in setting of hyperglycemia and diarrhea. >> OK has resolved; resumed po bicarb -see below re gtt -daily bmp -strict I/O -avoid nsaids (2) Acidosis, metabolic: she has a hx of rapid decompensation from MS and respiratory standpoint. acidosis resolved today and likely multifactorial/ acute on chronic >> from malabsorption, diarrhea, hyperglycemia, dehydration -daily labs -she is on massive bicarb doses po bicarb >> yesterday stopped bic gtt and cont po bicarb >given NPO status adn above hx; recheck bmp this afternoon -negative blood cxs given leukocytosis, concern for DKA on presentation; doubt UTI given contaminated specimen w/ minimal bacteria on presentation though some urinary inflammation noted (3) Ankle fracture, left: need to optimize metabolically before OR and at goal currently; bmp in am (4) Recurrent falls: per critical care and primary service; may be in part d/t electrolyte abnormalities Subjective seen on rounds this am at 10; ongoing L ankle pain; hungry/thirsty while NPO for OR which is for today; no sob, no N, no chest pain Review of Systems Review of Systems: All systems reviewed & are unremarkable except as noted in HPI & below Physical Exam Constitutional: well developed and well nourished; no acute distress lying flat on RA Eyes: EOM intact bilaterally ENMT: Ears: no external ear abnormality Nose: no external nose abnormality Mouth: + dry oral mucous membranes Neck: no nuchal rigidity Respiratory: normal respiratory effort Auscultation: + diminished lung sounds Cardiovascular: RRR, no murmur, no edema Gastrointestinal (Abdomen): Inspection/Auscultation: + abdomen distended and normal bowel sounds Percussion/Palpation: abdomen soft; abdomen nontender Musculoskeletal: Extremities: strength 5/5 throughout Skin: no rashes, warm and dry Neurologic: pizarro, fluent speech, no tremor Psychiatric: A+Ox3, euthymic affect Orientation: alert and oriented x 3 Speech: normal rate/rhythm/volume of speech Affect: + anxious affect Genitourinary: damico w/ ample urine Results & Data Vital Signs (Past 12 Hours) Vital Signs Temp Pulse Pulse Pulse Resp BP BP 12/12/18 16:12 37.3 C 65 16 159/89 H 12/12/18 16:00 76 09/04/19 15:57 76 12/12/18 15:36 37.4 C 95 H 18 123/78 12/12/18 10:23 36.7 C 75 18 157/81 H 12/12/18 07:40 75 12/12/18 06:57 36.7 C 74 19 170/103 H 158/103 H Pulse Ox 12/12/18 16:12 95 12/12/18 16:00 12/12/18 15:57 12/12/18 15:36 98 12/12/18 10:23 96 12/12/18 07:40 12/12/18 06:57 96 (1) Acute renal failure (ARF) Acute renal failure type: unspecified Qualified Code(s): N17.9 - Acute kidney failure, unspecified (2) Ankle fracture, left Encounter type: initial encounter Fracture type: closed Qualified Code(s): S82.892A - Other fracture of left lower leg, initial encounter for closed fracture
--- NOTE | 2018-12-12 17:36 | History & Physical Bridge Note ---
Date of Service December 12, 2018 History & Physical Bridge Note I have examined the patient, reviewed the History & Physical and in the interval since the performance of the History & Physical I have noted the following changes of clinical significance: Will require open reduction internal fixation left bimalleolar ankle fracture.
[2018-12-12] MEDS ORDERED: MIDAZOLAM HCL 1 MG/ML 2ML VIAL ONE (17:55)
[2018-12-12] MEDS ORDERED: fentaNYL citrate 100 MCG/2 ML VIAL ONE (17:55)
[2018-12-12] MEDS ORDERED: CEFAZOLIN 2,000 MG/15 ML IV PUSH IV ONE (18:03)
[2018-12-12] MEDS ORDERED: CEFAZOLIN 2000MG 2,000 MG/15 ML SYR IV ONE (18:56)
[2018-12-12] MEDS ORDERED: HYDROmorphone INJ 2 MG/ML SYR/VIAL ONE (18:59)
[2018-12-12] MEDS ORDERED: PROPOFOL IV EMULSION 10 MG/ML 20 ML VIAL IV ONE (19:13)
[2018-12-12] MEDS ORDERED: LIDOCAINE HCL 2% 2 ML VIAL/AMP(20MG/ML) INFIL ONE (19:13)
[2018-12-12] MEDS ORDERED: ONDANSETRON INJ 2 MG/ML 2 ML VIAL ONE (19:13)
--- NOTE | 2018-12-12 19:51 | Fluoroscopy Report ---
FL ankle LT min 3V RTN CLINICAL HISTORY: 43 years-old Female presenting with ORIF LEFT DISTAL FIBULA FX. TECHNIQUE: 2 fluoroscopic image(s) recorded as part of an intraoperative procedure. COMPARISON: 12/09/2018. FINDINGS/IMPRESSION: Interval cortical compression plate and screw fixation of the distal fibular fracture with single tra nssyndesmotic screw. The ankle mortise and distal tibiofibular articulation now congruent and in gayle omic alignment. Please see surgical report for further details. Dose area product (mGy.cm^2): 0.3934. Fluoroscopy time: 42.4 seconds. Number or time of high level fluoroscopy (HLF), digital spot, or digital subtraction images: 0. Electronically signed by: Brian Pavon M.D. 12/12/2018 7:50 PM
--- NOTE | 2018-12-12 20:05 | Post Operative Brief Note ---
Immediate Post Op Note v1 Date of Surgery December 12, 2018 Pre & Post Diagnosis Operation Date: 12/12/18 07:00 Pre-Op Diagnosis: Closed left displaced bimalleolar ankle fracture Post-Op Diagnosis: Closed left displaced bimalleolar ankle fracture, syndesmotic disruption Procedure Operation Date: 12/12/18 07:00 Actual Procedures p Left Open Reduction Internal Fixation bimalleolar ankle fracture; Left Ankle Syndesmosis repair with screw fixation, Left Ankle Stress views under fluoroscopy (Left) - Mode Gray DO Surgeon Mode Gray DO Distribution Specialist None Estimated Blood Loss 6 Findings Consistent with Post-Op Diagnosis Specimens None Drains Cheng Catheter (Inserted prior to OR arrival) Anesthesia Type General Complications none Disposition Accompanied Patient To Recovery: No Disposition: Recovery Room
[2018-12-12] MEDS ORDERED: LABETALOL HCL IV 5 MG/ML 20ML IV ONE (20:17)
--- NOTE | 2018-12-12 20:44 | XRay Report ---
XR ankle LT min 3V routine CLINICAL HISTORY: 43 years-old Female presenting with Postoperative left. TECHNIQUE: Frontal, mortise, and crosstable lateral views of the left ankle were obtained. COMPARISON: Plain radiographs from 12/09/2018. FINDINGS: There has been interval cortical compression plate and screw fixation of the distal fibular metadiaph ysis across the obliquely oriented distal fibular fracture at the level of the tibial plafond. Single transsyndesmotic screw in place with a congruent distal tibiofibular articulation. The ankle mortise is now congruent without medial clear space widening. Overlying plaster splint degrades evaluation o f underlying osseous detail. No radiographic soft tissue abnormality. IMPRESSION: Interval internal fixation of the distal fibula and transsyndesmotic screw. No malalignment. Electronically signed by: Brian Pavon M.D. 12/12/2018 8:42 PM
--- NOTE | 2018-12-12 20:49 | Anesthesiology Progress Note ---
Date of Service December 12, 2018 Anesthesia Post Procedure Vital Signs Vital Signs: Temp Pulse Pulse Pulse Resp BP BP 12/12/18 20:44 37.1 C 82 16 139/93 12/12/18 20:30 85 16 151/88 H 12/12/18 20:20 74 16 110/87 12/12/18 20:11 36.9 C 83 16 157/112 H 12/12/18 16:12 37.3 C 65 16 159/89 H 12/12/18 16:00 76 12/12/18 15:57 76 12/12/18 15:36 37.4 C 95 H 18 123/78 12/12/18 10:23 36.7 C 75 18 157/81 H 12/12/18 07:40 75 12/12/18 06:57 36.7 C 74 19 170/103 H 158/103 H 12/12/18 03:34 37.1 C 77 18 144/89 H 12/11/18 23:18 36.4 C L 67 18 146/85 H Pulse Ox 12/12/18 20:44 96 12/12/18 20:30 96 12/12/18 20:20 95 12/12/18 20:11 95 12/12/18 16:12 95 12/12/18 16:00 12/12/18 15:57 12/12/18 15:36 98 12/12/18 10:23 96 12/12/18 07:40 12/12/18 06:57 96 12/12/18 03:34 97 12/11/18 23:18 95 Pain Intensity Left Ankle: Pain Intensity: 2 Transfer of Care Handoff Completed per policy Notes Mental Status: alert / awake / arousable Patient Amnestic to Procedure: Yes Nausea / Vomiting: adequately controlled Pain: adequately controlled Airway Patency, RR, SpO2: stable & adequate BP & HR: stable & adequate Hydration State: stable & adequate Anesthetic Complications: no major complications apparent and Pt Satisfied with anesthetic care
[2018-12-12] MEDS ORDERED: INSULIN GLARGINE SOLOSTAR 100 UNITS/ML 3 ML PEN SC SCH (21:00)
[2018-12-12] MEDS: FENOFIBRATE NANOCRYSTALLIZED 145 MG TABLET PO SCH (21:31)
[2018-12-12] MEDS: ATORVASTATIN 20 MG TAB PO SCH (21:31)
[2018-12-12] MEDS: DULOXETINE HCL 60 MG CAP PO SCH (21:31)
[2018-12-12 22:02] LABS: BUN Creatinine Ratio 17.7 (10-20); Calcium 9.4 mg/dl (8.5-10.1); Creatinine Clr Calc Pharmacy 63.5 ml/min; Est GFR (African American) 61.3; Est GFR (Non-African American) 52.9; Potassium 4.5 mmol/L (3.5-5.1)
--- NOTE | 2018-12-12 22:41 | Hospitalist Progress Note ---
Date of Service December 12, 2018 Assessment & Plan (1) Diabetes mellitus, insulin dependent (IDDM), uncontrolled: Diabetes mellitus, insulin dependent (IDDM), uncontrolled (Acute) History of diabetes mellitus diagnosed in 2014 at the age of 38. 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 Patient is required insulin therapy for management, but not certain that she has type 1 disease. Blood sugar at time of admission was 343. Anion gap was 15. Treated for suspected DKA with IV insulin with improvement of blood sugars and metabolic acidosis. However, there was no ketonuria. BHB was ordered, but could not be interpreted because of hemolysis. Pharmacy consulted for glycemic management and Tying In Machine Operator consulted as well. Hemoglobin A1c 12.6. Transitioned to SQ insulin. Fasting blood sugar today = 173. Ongoing monitoring/education/support. Acute kidney injury / Dehydration (Acute) Serum creatinine at time of admission was 4.67, compared to baseline of around 0.9. Acute kidney injury probably secondary to severe dehydration from chronic diarrhea and/or osmotic diuresis from hyperglycemia. Nephrology consulted. Received IV fluids with improvement. Creatinine today = 0.95. Closed left ankle fracture (Acute) Ortho consulted. ORIF planned today. Hypertension (Chronic) Continue propranolol and amlodipine. GERD (gastroesophageal reflux disease) (Chronic) Continue PPI. 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 Sodium bicarbonate supplementation per Nephrology. DVT prophylaxis Receiving SQ heparin. Disposition Discharge disposition to be determined- ? home vs rehab. Medical follow-up with Dr. Garsia. Subjective Recheck for multiple problems. Patient seen in their room around 1400. Family visiting. Waiting to go to OR for ORIF left ankle. Having severe ankle pain, gets some relief with analgesics. Blood sugars improved. Off insulin drip. No new concerns. Review of Systems: Constitutional- no fever. Cardiac- no chest pain. Pulmonary- no cough or SOB. GI- no nausea, vomiting, diarrhea, melena, hematochezia. - no urinary symptoms. Otherwise, as noted above. Physical Exam Physical Exam: Constitutional- afebrile, no acute distress Eyes- sclerae anicteric Respiratory- clear to auscultation, no respiratory distress Cardiovascular- cardiac rhythm regular, no murmurs or gallops appreciated, no JVD, no pretibial edema or calf tenderness Gastrointestinal- normal bowel sounds, soft, nondistended, nontender Musculoskeletal- left ankle splinted Skin- warm and dry, no rash Psychiatric- alert, oriented Results & Data Vital Signs (Past 12 Hours) Vital Signs Temp Pulse Pulse Pulse Resp BP BP 12/12/18 21:04 37.1 C 80 18 137/84 12/12/18 20:44 37.1 C 82 16 139/93 12/12/18 20:30 85 16 151/88 H 12/12/18 20:20 74 16 110/87 12/12/18 20:11 36.9 C 83 16 157/112 H 12/12/18 16:12 37.3 C 65 16 159/89 H 12/12/18 16:00 76 12/12/18 15:57 76 12/12/18 15:36 37.4 C 95 H 18 123/78 12/12/18 10:23 36.7 C 75 18 157/81 H Pulse Ox 12/12/18 21:04 96 12/12/18 20:44 96 12/12/18 20:30 96 12/12/18 20:20 95 12/12/18 20:11 95 12/12/18 16:12 95 12/12/18 16:00 12/12/18 15:57 12/12/18 15:36 98 12/12/18 10:23 96 Laboratory Results Laboratory Results - last 24 hr 12/12/18 12/12/18 12/12/18 01:55 05:34 05:34 WBC 11.34 H RBC 5.13 Hgb 12.6 Hct 39.0 MCV 76.0 L MCH 24.6 L MCHC 32.3 RDW Std Deviation 46.5 H RDW Coeff of Chidi 16.9 H Plt Count 278 MPV 10.8 H Sodium 135 L Potassium Chloride 101 Carbon Dioxide 28 Anion Gap 6.0 BUN 19 H Creatinine 0.95 D Est Cr Clr Drug Dosing 82.2 Est GFR ( Amer) 83.8 Est GFR (Non-Af Amer) 72.3 BUN/Creatinine Ratio 19.8 Glucose 173 H POC Glucose 152 H Calcium 9.4 Phosphorus 3.1 D 12/12/18 12/12/18 12/12/18 07:09 07:14 11:40 WBC RBC Hgb Hct MCV MCH MCHC RDW Std Deviation RDW Coeff of Chidi Plt Count MPV Sodium Potassium 4.1 Chloride Carbon Dioxide Anion Gap BUN Creatinine Est Cr Clr Drug Dosing Est GFR ( Amer) Est GFR (Non-Af Amer) BUN/Creatinine Ratio Glucose POC Glucose 173 H 170 H Calcium Phosphorus 12/12/18 12/12/18 12/12/18 20:12 21:08 21:12 WBC RBC Hgb Hct MCV MCH MCHC RDW Std Deviation RDW Coeff of Chidi Plt Count MPV Sodium Pending Potassium Pending Chloride Pending Carbon Dioxide Pending Anion Gap Pending BUN Pending Creatinine Pending Est Cr Clr Drug Dosing Pending Est GFR ( Amer) Pending Est GFR (Non-Af Amer) Pending BUN/Creatinine Ratio Pending Glucose Pending POC Glucose 142 H 141 H Calcium Pending Phosphorus
--- NOTE | 2018-12-12 23:09 | Operative Report ---
DATE OF OPERATION: 12/12/2018 PREOPERATIVE DIAGNOSIS: Left displaced bimalleolar ankle fracture. POSTOPERATIVE DIAGNOSES: 1. Left displaced bimalleolar ankle fracture. 2. Syndesmotic disruption, left ankle. PROCEDURES: 1. Open reduction internal fixation, left bimalleolar ankle fracture. 2. Open reduction internal fixation, ankle syndesmosis with screw fixation. 3. Stress x-rays of the left ankle. SURGEON: Mode Gray DO RESIDENTIAL REMODELING SUBCONTRACTOR: None. ANESTHESIA: General with local. SPECIMENS: None. DRAINS: None. COMPLICATIONS: None. BLOOD LOSS: 6 mL. PERTINENT HISTORY: This is a 43-year-old woman who sustained a twisting injury to the left ankle. She is unable to ambulate. She was admitted to [facility]. She was noted to be in diabetic ketoacidosis with anion gap, noncompliant with her insulin and severe type 1 diabetic. The patient was then stabilized medically and then she was cleared for surgery. She was then scheduled for surgery today as indicated. All potential risks, benefits, complications, alternatives, rehab, potential for incomplete relief of symptoms, need for further surgery, deep venous thrombosis, pulmonary embolism, , persistent pain, swelling, scarring, weakness, neurovascular injury, wound complications, hardware failure, nonunion, malunion and bone fracture were discussed with the patient. The patient decided to proceed with the procedure as indicated. DESCRIPTION OF PROCEDURE: The patient was taken to the operative suite and placed supine on the operating room table. After review of consent and identification of proper operative site, the patient was anesthetized, LMA was placed. Tourniquet was placed high on left thigh over cast padding. Left lower extremity was then sterilely prepped in usual fashion, elevated and exsanguinated with bandage, tourniquet inflated to 350 mmHg. Next, a 15 blade scalpel was used to make an incision along the lateral malleolus extending from the distal tip of the fibula proximally. The incision was deepened through subcutaneous tissue. Meticulous hemostasis was achieved with electrocautery. Full thickness skin flaps were developed. The sensory cutaneous nerves identified, freed, retracted and protected with Glory rakes. The deep fascia and periosteum were then incised revealing the fracture. The fracture was then carefully irrigated and debrided with a curette and rongeur. Next, the fracture ends were then placed. They were then reduced with Lions jaw forceps and held in place provisionally with a forceps under live fluoroscopic assistance. Reduction was confirmed and then a single 3.5 mm lag screw was placed from anterior to posterior. Next, a contoured 10-hole one-third tubular locking Synthes stainless steel plate was then firmly affixed to the lateral aspect of the lateral malleolus under live fluoroscopic assistance. Stress x-rays were performed using fluoroscopic assistance noting disruption of the syndesmosis and instability of the ankle. Next, 3.5 mm syndesmotic screw was placed through the plate through the syndesmosis into the tibia under live fluoroscopic assistance with the foot held in neutral dorsiflexion to stabilize the talus within the ankle mortise. Once the screw was placed, the stress views then repeated. Ankle was noted to be stable. There was noted to Chaput fragment on the anterolateral aspect of the distal tibia. This was stabilized after fixation of the syndesmosis and plate and screws laterally. Next, the incision was then copiously irrigated with sterile normal saline and the deep periosteum and soft tissue were closed using 2-0 Vicryl. The dermis was closed using buried interrupted 3-0 Vicryl. Skin was closed using 4-0 nylon. Next, 30 mL of 0.5% Marcaine plain was injected around the incision site for postoperative pain control. Next, a sterile compressive dressing and bulky Nino Helms plaster splint were applied overwrapped with an Nikos wrap. The foot was held in neutral dorsiflexion. Toes were noted to pink and warm. Tourniquet was released. The patient was awakened and taken to recovery in a stable condition. I attest to the content of the Intraoperative Record and any orders documented therein. Any exception s are noted below.
[2018-12-13] MEDS: TRAMADOL HCL 50 MG TABLET PO PRN ×4 (01:54→14:35)
[2018-12-13] MEDS: HYDROmorphone INJ 0.5 MG/0.5 ML SYR IV PRN ×3 (04:05→10:53)
[2018-12-13] MEDS: HEPARIN SOD 5,000 UNIT/0.5 ML VIAL SQ SCH ×3 (05:33→21:30)
[2018-12-13 06:22] LABS: BUN Creatinine Ratio 20.3 (10-20); Calcium 9.1 mg/dl (8.5-10.1); Creatinine Clr Calc Pharmacy 65.2 ml/min; Est GFR (African American) 63.2; Est GFR (Non-African American) 54.5; Potassium 4.6 mmol/L (3.5-5.1)
--- NOTE | 2018-12-13 08:27 | Hospitalist Progress Note ---
Date of Service December 13, 2018 Assessment & Plan (1) Diabetes mellitus, insulin dependent (IDDM), uncontrolled: Call 911 and go to the Emergency Room if: * You have tightness or pain in your chest that does not go away with rest or Nitroglycerin * You are very short of breath even with rest Call your doctor if any of the following symptoms or problems start or get worse: * Shortness of breath or difficulty breathing * Wake up at night short of breath * Chest pain * Cough * Swelling of your hands, fee, or legs * More fatigued or tired with your normal activity * Palpitations - sudden fast heart beats WEIGHT * Weigh yourself every morning after using the bathroom. * Use the same scale. * Wear the same amount of clothing. * Write your weight down on your chart. * Call your doctor if you gain more than 2-3 pounds in 1-2 days. MEDICATIONS * Use this discharge instruction sheet for instructions. * Take your medications at the time your doctor ordered. * Do not skip a dose of your medicines. * If you miss a dose of medicine, take as soon as possible, but DO NOT DOUBLE A DOSE. * Read your medicine information when you get home. * Know all of the side effects of your medicine. * Call your doctor's office if you have any side effects. * Be sure all of your doctors know what medicine and herbs you take (including cold, flu, and herbal medicine). * Pain Medicine: If you do not get relief from your pain, please call your doctor for help. Take the following with you to your follow-up doctor appointments: * Weight Chart * Medication List * List of questions Do not drink excessive alcohol, beer or wine. Laboratory Results - last 24 hr 12/12/18 12/12/18 12/12/18 11:40 20:12 21:08 Sodium 137 Potassium 4.5 Chloride 103 Carbon Dioxide 29 Anion Gap 5.0 BUN 22 H Creatinine 1.23 H Est Cr Clr Drug Dosing 63.5 Est GFR ( Amer) 61.3 Est GFR (Non-Af Amer) 52.9 BUN/Creatinine Ratio 17.7 Glucose 147 H POC Glucose 170 H 142 H Calcium 9.4 12/12/18 12/13/18 12/13/18 21:12 05:30 07:01 Sodium 137 Potassium 4.6 Chloride 100 Carbon Dioxide 31 Anion Gap 6.0 BUN 24 H Creatinine 1.20 Est Cr Clr Drug Dosing 65.2 Est GFR ( Amer) 63.2 Est GFR (Non-Af Amer) 54.5 BUN/Creatinine Ratio 20.3 H Glucose 126 H POC Glucose 141 H 112 H Calcium 9.1 12/12/18 05:34 12/13/18 05:30 Microbiology 12/10/18 05:00 Urine,Clean Catch Urine Culture - Final More than three types of organisms present, all high counts. Repeat collection recommended. No further identifications or sensitivities to follow. Thank you for this consultation. We will follow the patient with you during their hospital stay. My cell # is [phone]. You can reach a member of the [facility] Medicine Team 31/10 via pager @ [phone]. Thank you for receiving this patient in transfer. Please call if you have any questions. Lj Patel Results & Data Vital Signs (Past 12 Hours) Vital Signs Temp Pulse Resp BP Pulse Ox 12/13/18 07:01 36.7 C 53 L 19 126/85 99 12/13/18 03:56 37.0 C 61 19 129/85 99 12/13/18 01:50 68 147/74 H 98 12/13/18 01:20 69 133/76 98 12/13/18 00:50 63 129/79 97 12/13/18 00:35 69 128/85 97 12/13/18 00:05 68 124/77 98 12/13/18 00:00 36.8 C 68 18 127/82 97 12/12/18 23:55 62 122/81 98 12/12/18 23:50 69 125/85 98 12/12/18 23:15 68 127/82 97 12/12/18 22:20 71 14 118/82 97 12/12/18 22:05 66 121/80 97 12/12/18 21:50 68 14 120/80 96 12/12/18 21:40 70 18 125/81 98 12/12/18 21:04 37.1 C 80 18 137/84 96 12/12/18 20:44 37.1 C 82 16 139/93 96 12/12/18 20:30 85 16 151/88 H 96
[2018-12-13] MEDS: PANTOprazole 40 MG TAB PO SCH (08:31)
[2018-12-13] MEDS: SODIUM BICARBONATE 650 MG TAB PO SCH ×3 (08:31→21:30)
[2018-12-13] MEDS: OMEGA-3 (PURIFIED FISH OIL) 1 GM CAP PO SCH ×2 (08:32→21:28)
[2018-12-13] MEDS: PROPRANOLOL HCL 60 MG LA CAP PO SCH ×2 (08:32→21:27)
[2018-12-13] MEDS: AMLODIPINE BESYLATE 5 MG TAB PO SCH (08:32)
[2018-12-13] MEDS: INSULIN ASPART 100 UNITS/ML 3 ML PEN SC SCH ×4 (08:38→21:35)
[2018-12-13] MEDS: ONDANSETRON INJ 2 MG/ML 2 ML VIAL IV PRN ×3 (08:48→23:11)
[2018-12-13] MEDS: PREGABALIN 100 MG CAP PO SCH ×3 (08:49→21:26)
[2018-12-13] MEDS: INSULIN GLARGINE SOLOSTAR 100 UNITS/ML 3 ML PEN SC SCH (08:50)
--- NOTE | 2018-12-13 09:22 | Pharmacy Report ---
Pharmacy Glycemic Short Note 2 - Date of Service December 13, 2018 - Glycemic Short BSG Results (Last 24 hours): 12/12/18 12/12/18 12/12/18 11:40 20:12 21:08 Glucose 147 H POC Glucose 170 H 142 H 12/12/18 12/13/18 12/13/18 21:12 05:30 07:01 Glucose 126 H POC Glucose 141 H 112 H OUTPATIENT ANTIDIABETIC REGIMEN: * Tresiba 120 units SQ qHS * Humalog 30 units SQ TID * Actos 30 mg PO daily * HbA1c: 12.6% 12/11/18 ASSESSMENT: 12/13: * Over the last 24 hrs 108 units if insulin have been administered * Fasting BSG 112 with 100 units Lantus on board * Of note, pt did have poor PO intake yesterday and is again nauseated this AM. Will continue a slightly reduced Lantus dose today as a result. * SCr myriam in last 24 hrs - continue to monitor * Correctional insulin producing desirable response 12/12: * Pt received total received total of around 150 units of insulin yesterday which includes estimated 24 hr insulin drip and 100 units of Lantus. * Fasting BSG = 173 today. AM Lantus dose was increased to 90 units. HS dose also increased and ordered based on a scale upto max of 30 units tonight. * Will continue with current parameters for Novolog SQ. * Patient was NPO this morning for procedure today at 3 pm. 12/11 * Ms. Hernandez received a total of 120 units of insulin in an effort to begin transition off of insulin drip, despite these doses insulin infusion still running at 4.2 ml/hr * Patient did have dextrose in bicarb fluid which was discontinued ~11AM, patient also received 80 units of insulin at this time, suspect drip rate will be able to come down with these changes * Ideally would like to stop infusion when drip rate is <2 and two BSGs within goal range, patient has started 2 hours checks, last check 146- no change in infusion, this was however ~30 minutes after eating, if no change at next check will do 20% reduction to 3.4 units/hr and schedule additional lantus * Patient to be NPO at midnight so do not want to overload on lantus * Continue to work on transition PLAN FOR INPATIENT GLYCEMIC CONTROL: * Hold outpatient oral diabetes medications and Tresiba * Basal insulin: decreased * Lantus 90 units this AM only * Bolus insulin: continued * NovoLog per scale ACHS or Q6hrs while NPO * Goal Range: Low 110 mg/dL - High 140 mg/dL * Correction Factor: 10 mg/dL/unit * Nutritional / Prandial insulin per carb ratio of 1 unit per 4 grams CHO consumed Discharge Recommendations: Pending
[2018-12-13] MEDS ORDERED: HYDROmorphone INJ 1 MG/ML SYRINGE IV ONE (11:01)
--- NOTE | 2018-12-13 11:46 | Orthopedic Progress Note ---
Date of Service December 13, 2018 Assessment & Plan (1) Fracture of lateral malleolus of left ankle: POD #1 s/p Left Distal Fibula Open Reduction Internal Fixation with Left Ankle Syndesmosis Screw Placement NWB LLE at all times. Splint to stay in place for 2 weeks. Ice/elevation. Pain control Will follow up with Dr. Gray's clinic in 2 weeks. Subjective Left ankle pain this AM. Feels like she made a bad choice in not having the regional block done. Has been NWB on the LLE. Physical Exam Constitutional: no acute distress Musculoskeletal: Left ankle: Splint C/D/I. Toes are mobile. Sensation intact to light touch. Psychiatric: Orientation: alert and oriented x 3 Results & Data Vital Signs (Past 12 Hours) Vital Signs Temp Pulse Pulse Resp BP Pulse Ox 12/13/18 10:51 37.0 C 82 20 131/78 94 12/13/18 07:35 75 12/13/18 07:01 36.7 C 53 L 19 126/85 99 12/13/18 03:56 37.0 C 61 19 129/85 99 12/13/18 01:50 68 147/74 H 98 12/13/18 01:20 69 133/76 98 12/13/18 00:50 63 129/79 97 12/13/18 00:35 69 128/85 97 12/13/18 00:05 68 124/77 98 12/13/18 00:00 36.8 C 68 18 127/82 97 12/12/18 23:55 62 122/81 98 12/12/18 23:50 69 125/85 98
--- NOTE | 2018-12-13 14:26 | Nephrology Progress Note ---
Date of Service December 13, 2018 Assessment & Plan (1) Acute renal failure (ARF): prerenal OK in setting of hyperglycemia and diarrhea. >> OK has resolved; resumed po bicarb -see below re gtt -daily bmp -strict I/O -avoid nsaids (2) Acidosis, metabolic: she has a hx of rapid decompensation from MS and respiratory standpoint. acidosis remains resolved today and likely multifactorial/ acute on chronic >> from malabsorption, diarrhea, hyperglycemia, dehydration -daily labs -she is on massive bicarb doses po >> since we are checking daliy labs and she has N, will halve this dose (3) Ankle fracture, left: s/p ORIF 12/13 (4) Recurrent falls: per critical care and primary service; may be in part d/t electrolyte abnormalities Subjective seen on rounds this am 0805; lots of N this am; did not take food from [employer] tray; also ongoing L ankle pain. Review of Systems Review of Systems: All systems reviewed & are unremarkable except as noted in HPI & below Physical Exam Constitutional: well developed and well nourished; no acute distress lying flat on RA, diaphoretic Eyes: EOM intact bilaterally ENMT: Ears: no external ear abnormality Nose: no external nose abnormality Mouth: + dry oral mucous membranes Neck: no nuchal rigidity Respiratory: normal respiratory effort Auscultation: + diminished lung s ounds Cardiovascular: RRR, no murmur, no edema Gastrointestinal (Abdomen): Inspection/Auscultation: + abdomen distended and normal bowel sounds Percussion/Palpation: abdomen soft; abdomen nontender Musculoskeletal: Extremities: strength 5/5 throughout Skin: no rashes, warm and dry Neurologic: pizarro, fluent speech Psychiatric: A+Ox3, euthymic affect Orientation: alert and oriented x 3 Speech: normal rate/rhythm/volume of speech Affect: + anxious affect Results & Data Vital Signs (Past 12 Hours) Vital Signs Temp Pulse Pulse Resp BP Pulse Ox 12/13/18 10:51 37.0 C 82 20 131/78 94 12/13/18 07:35 75 12/13/18 07:01 36.7 C 53 L 19 126/85 99 12/13/18 03:56 37.0 C 61 19 129/85 99 Laboratory Results Abnormal lab results 12/12/18 12/12/18 12/12/18 Range/Units 20:12 21:08 21:12 BUN 22 H (7-18) mg/dl Creatinine 1.23 H (0.6-1.2) mg/dl BUN/Creatinine Ratio (10-20) Glucose 147 H (70-99) mg/dl POC Glucose 142 H 141 H (70-99) 12/13/18 12/13/18 Range/Units 05:30 07:01 BUN 24 H (7-18) mg/dl Creatinine (0.6-1.2) mg/dl BUN/Creatinine Ratio 20.3 H (10-20) Glucose 126 H (70-99) mg/dl POC Glucose 112 H (70-99) (1) Acute renal failure (ARF) Acute renal failure type: unspecified Qualified Code(s): N17.9 - Acute kidney failure, unspecified (2) Ankle fracture, left Encounter type: initial encounter Fracture type: closed Qualified Code(s): S82.892A - Other fracture of left lower leg, initial encounter for closed fracture
[2018-12-13] MEDS: ACETAMINOPHEN 1,000 MG/100 ML VIAL IV PRN (15:36)
[2018-12-13] MEDS: HYDROmorphone INJ 1 MG/ML SYRINGE IV PRN ×2 (17:09→23:57)
--- NOTE | 2018-12-13 19:32 | Hospitalist Progress Note ---
Date of Service December 13, 2018 Assessment & Plan (1) Diabetes mellitus, insulin dependent (IDDM), uncontrolled: Diabetes mellitus, insulin dependent (IDDM), uncontrolled (Acute) History of diabetes mellitus diagnosed in 2014 at the age of 38. 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 Patient is required insulin therapy for management, but not certain that she has type 1 disease. Blood sugar at time of admission was 343. Anion gap was 15. However, there was no ketonuria. BHB was ordered, but could not be interpreted because of hemolysis. Treated for suspected DKA with IV insulin with improvement of blood sugars and metabolic acidosis. Pharmacy consulted for glycemic management and Decision Support Analyst consulted as well. Hemoglobin A1c 12.6. Transitioned to SQ insulin. Fasting blood sugar today = 112. Ongoing monitoring/education/support. Acute kidney injury / Dehydration (Acute) Serum creatinine at time of admission was 4.67, compared to baseline of around 0.9. Acute kidney injury probably secondary to severe dehydration from chronic diarrhea and/or osmotic diuresis from hyperglycemia. Nephrology consulted. Received IV fluids with improvement. Creatinine today = 1.20. Closed left ankle fracture (Acute) Ortho consulted. ORIF performed by Dr. Gray 12/12- POD # 1. Having severe postop pain. Titrate analgesics. Nonweightbearing status LLE. Hypertension (Chronic) Continue propranolol and amlodipine. GERD (gastroesophageal reflux disease) (Chronic) Continue PPI. 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 Sodium bicarbonate supplementation per Nephrology. DVT prophylaxis Receiving SQ heparin. Disposition Discharge disposition to be determined- ? home vs skille / rehab. Medical follow-up with Dr. Garsia. Endocrinology follow-up with [facility]. Subjective Recheck for multiple problems. Patient seen in their room around 1420. ORIF left ankle performed yesterday. Having severe pain; current doses of analgesics not effective. Nauseated. No emesis. Minimal PO intake. Review of Systems: Constitutional- no fever. Cardiac- no chest pain. Pulmonary- no cough or SOB. GI- nausea; no diarrhea, melena, hematochezia. - Cheng cath. Otherwise, as noted above. Physical Exam Physical Exam: Constitutional- afebrile, appears to be uncomfortable Eyes- sclerae anicteric Respiratory- clear to auscultation, no respiratory distress Cardiovascular- cardiac rhythm regular, no murmurs or gallops appreciated, no JVD, no pretibial edema or calf tenderness Gastrointestinal- normal bowel sounds, soft, nondistended, nontender Musculoskeletal- left ankle splinted; good capillary refill left toes - Cheng cath Skin- warm and dry, no rash Psychiatric- alert, oriented Results & Data Vital Signs (Past 12 Hours) Vital Signs Temp Pulse Pulse Resp BP Pulse Ox 12/13/18 15:23 37.3 C 77 20 138/85 95 12/13/18 10:51 37.0 C 82 20 131/78 94 12/13/18 07:35 75 Laboratory Results 12/12/18 05:34 12/13/18 05:30
[2018-12-13] MEDS: DULOXETINE HCL 60 MG CAP PO SCH (21:27)
[2018-12-13] MEDS: FENOFIBRATE NANOCRYSTALLIZED 145 MG TABLET PO SCH (21:29)
[2018-12-13] MEDS: ATORVASTATIN 20 MG TAB PO SCH (21:29)
[2018-12-14] MEDS ORDERED: SODIUM CHLORIDE 0.9% 1000ML 1,000 ML IV SCH (00:30)
[2018-12-14] MEDS: HYDROmorphone INJ 1 MG/ML SYRINGE IV PRN ×6 (03:25→22:29)
[2018-12-14] MEDS: HEPARIN SOD 5,000 UNIT/0.5 ML VIAL SQ SCH ×2 (06:26→15:11)
--- NOTE | 2018-12-14 06:35 | XRay Report ---
KUB HISTORY: Acute vomiting abdominal pain/obstruction? COMPARISON: CT abdomen and pelvis 12/09/2018 FINDINGS: Distended stomach with multiple distended air-filled loops of large and small bowel. Small bowel loop s measure up to approximately 5.6 cm transversely. Cholecystectomy. Posterior interbody aria and screw fusion L4-L5. No pneumatosis or pneumoperitoneum. No definite urolith. IMPRESSION: Gaseous distention of the stomach and small bowel with air also noted within the colon. Ileus versus distal obstruction are the differential considerations. Follow-up recommended. Electronically signed by: Jerrell Marquez M.D. 12/14/2018 6:34 AM
[2018-12-14 06:53] LABS: Calcium 9.3 mg/dl (8.5-10.1); Creatinine Clr Calc Pharmacy 91.4 ml/min; Est GFR (African American) 93.2; Est GFR (Non-African American) 80.5; Potassium 3.8 mmol/L (3.5-5.1)
[2018-12-14] MEDS: ACETAMINOPHEN 1,000 MG/100 ML VIAL IV PRN ×2 (07:38→16:27)
[2018-12-14] MEDS: SODIUM BICARBONATE 650 MG TAB PO SCH (08:08)
[2018-12-14] MEDS: OMEGA-3 (PURIFIED FISH OIL) 1 GM CAP PO SCH (08:09)
[2018-12-14] MEDS: AMLODIPINE BESYLATE 5 MG TAB PO SCH (08:09)
[2018-12-14] MEDS: PROPRANOLOL HCL 60 MG LA CAP PO SCH (08:09)
[2018-12-14] MEDS: PANTOprazole 40 MG TAB PO SCH (08:10)
--- NOTE | 2018-12-14 08:11 | Surgery Consultation ---
Date of Consultation December 14, 2018 Assessment & Plan (1) Ileus: Likely ileus vs SBO but has extensive surgical history NGT for significant gastric distention, some SB distention consider CT if not improving over the weekend Dr Carter- saw pt in her room-she is sitting up in bed with her NG tube in place She is draining a significant amount of this fluid which is more yellow than green She says she feels better with minimal pain Her abdomen is mildly distended with decreased bowel sounds nontender We will continue NG decompression with IV fluids. Check her phosphorus and mag We may consider CT eval with some contrast via the NG tube but not for at least 48 hours. At some point she may need some calories/protein we may consider PPN/TPN We will continue to follow closely History of Present Illness Attending Physician: Lj Patel MD History of Present Illness 43 y/o female admitted 5 days ago for DKA and left ankle fx secondary to fall (frequent) at home. Also had OK which has resolved. She had ORIF of ankle fx two days ago. Last night had increasing bloating, N/V. Last BM was Monday (before surgery) and no recent flatus. H/o of lap toro, subtotal colectomy and ileostomy for C. diff and ileostomy reversal. Allergies Allergy/AdvReac Type Severity Reaction Status Date / Time bee venom protein (honey bee) Allergy Intermediate RED, SHORT Verified 12/09/18 17:46 OF BREATH No Known Drug Allergies Allergy Unknown NKDA Verified 12/09/18 17:46 Home Medications Home Medications Medication Instructions Recorded Confirmed Type Tresiba FlexTouch U-100 120 unit SUBCUT HS 12/28/17 12/09/18 History albuterol sulfate 2 puff INHALATION Q4H PRN 12/28/17 12/09/18 History amlodipine 10 mg PO QAM 12/28/17 12/09/18 History atorvastatin 20 mg PO HS 12/28/17 12/09/18 History duloxetine [Cymbalta] 60 mg PO QPM 12/28/17 12/09/18 History esomeprazole magnesium 40 mg PO QAM 12/28/17 12/09/18 History fenofibrate 160 mg PO HS 12/28/17 12/09/18 History insulin lispro [Humalog U-100 30 unit SUBCUT TID 12/28/17 12/09/18 History Insulin] omega 5-yay-cte-fish oil [Fish Oil] 1 tab PO BID 12/28/17 12/09/18 History pregabalin [Lyrica] 100 mg PO TID 12/28/17 12/09/18 History propranolol 120 mg PO BID 12/28/17 12/09/18 History sodium bicarbonate 3 tab PO QID 12/28/17 12/09/18 History magnesium chloride [Mag 64] 64 mg PO BID #60 tab 12/31/17 12/09/18 Rx ondansetron [Zofran ODT] 4 mg PO Q6H PRN #90 tab 01/10/18 12/09/18 Rx baclofen 10 mg PO TID PRN 12/09/18 12/09/18 History fluticasone propionate [Flonase 2 spray INTRANASAL DAILY 12/09/18 12/09/18 History Allergy Relief] furosemide [Lasix] 20 mg PO DAILY 12/09/18 12/09/18 History pioglitazone [Actos] 30 mg PO DAILY 12/09/18 12/09/18 History prochlorperazine maleate 10 mg PO TID PRN 12/09/18 12/09/18 History [Compazine] Patient History Medical History Depression (Chronic) Hx of Clostridium difficile infection (Resolved) 2011 - TREATED History of renal dialysis (Resolved) - [facility] - ARF 2/2 DKA Kidney stones (Chronic) History of endometriosis (Chronic) Anxiety (Chronic) Fracture of rib of right side (Resolved) Anemia of chronic disease (Chronic) Chronic nausea (Chronic) Suppurative hidradenitis (Chronic) Hypertension (Chronic) GERD (gastroesophageal reflux disease) (Chronic) Metabolic acidosis (Chronic) "recurrent" Diabetes mellitus type 1 (Chronic) HISTORY MULTIPLE EPISODES DKA Dyslipidemia (Chronic) Surgical History History of ileostomy (Resolved) History of reversal of ileostomy (Chronic) History of lumbar spinal fusion (Chronic) History of rotator cuff surgery (Chronic) RT Hx of tracheostomy (Resolved) R/T COMPLICATIONS AFTER ILEOSTOMY REVERSAL SURGERY IN 2011; HAS SINCE BEEN REVERSED 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" Status post cholecystectomy (Chronic) "cholelithiasis" Family History Mother Diabetes Social History Preferred Language: Citizen Of [place] Communication Ability: Effective Outpatient Receptionist Required: No Beliefs That Will Affect Care: None marital status: Current Living Situation: Family Other Information That Helps Us Care for You: No Feels Safe at Home: Yes Safety Concerns: Feels Safe At This Time Smoking Status: Current every day smoker Tobacco Type: cigarettes ; Cigarettes Per Day: 5 ; Do You Dip or Chew Tobacco: No ; Second Hand Exposure: No ; Tobacco Cessation Education Requested by Patient: No Hx Alcohol Use: Yes Alcohol Intake Frequency: Holidays/Special Occasions Hx Substance Use: No Review of Systems Constitutional: no fever and no chills Gastrointestinal: + abdominal pain, + bloating, + nausea and + vomiting; no diarrhea/loose stools (usually 1 formed stool daily) Physical Exam Constitutional: well developed; no acute distress Respiratory: normal respiratory effort; no respiratory distress Cardiovascular: Rate/Rhythm: regular rate Gastrointestinal (Abdomen): Inspection/Auscultation: + abdomen distended and + abdominal surgical scar (midline & ostomy) Percussion/Palpation: + abdomen tender (minimal) and abdomen soft; no guarding Musculoskeletal: Ankle: + ankle abnormal to inspection (splint) Results & Data Vital Signs (Past 12 Hours) Vital Signs Temp Pulse Pulse Resp BP Pulse Ox 12/14/18 07:24 36.7 C 81 20 147/92 H 92 12/14/18 07:00 85 12/14/18 04:00 37.0 C 84 20 141/85 H 91 12/13/18 23:55 156/81 H 12/13/18 23:45 85 12/13/18 23:00 36.8 C 87 21 172/49 H 96 12/13/18 20:37 36.7 C 61 19 163/95 H 93 PG Care Time/CCT Total # of Minutes Spent Total Time Spent with Patient: Total time spent is greater than 50% in coordination of care (as documented) at patient's floor/unit and/or counseling patient:
[2018-12-14] MEDS: INSULIN ASPART 100 UNITS/ML 3 ML PEN SC SCH ×3 (08:14→18:51)
[2018-12-14] MEDS: PREGABALIN 100 MG CAP PO SCH (08:23)
[2018-12-14 08:54] LABS: Phosphorus 3.1 mg/dl (2.5-4.9)
[2018-12-14] MEDS ORDERED: INSULIN GLARGINE SOLOSTAR 100 UNITS/ML 3 ML PEN SC SCH ×2 (09:00→21:00)
[2018-12-14] MEDS ORDERED: SODIUM BICARBONATE IV SCH (10:30)
[2018-12-14] MEDS ORDERED: D5W AND LACTATED RINGERS 1,000 ML IV SCH (10:30)
[2018-12-14] MEDS ORDERED: DEXTROSE 5% IV SCH (10:30)
--- NOTE | 2018-12-14 11:08 | Pharmacy Report ---
Glycemic Control Progress Note - Date of Service December 14, 2018 - Scope Glycemic Pharmacist consulted for glycemic control to write orders per [facility] inpatient glycemic control protocol. - Objective Accuchecks BSG(last 24 hours):: 12/13/18 12/13/18 12/13/18 11:16 17:47 23:00 Glucose POC Glucose 94 77 72 12/14/18 12/14/18 06:01 06:06 Glucose 81 POC Glucose 77 HbA1c:: Hemoglobin A1c 12.6 % (4.5-5.6) H 12/11/18 04:52 - Recent Pertinent Medications The patient is currently receiving: * Basal insulin: Lantus 90 units every 24 hours * Correctional Insulin: Novolog Correction per scale ACHS Goal Range: Low 100 mg/dL - High 140 mg/dL Correction Factor: 10 mg/dL/unit * Prandial insulin: Per carb ratio of 1 unit per 4 grams CHO consumed * Oral Agents: - Outpatient Anti-Diabetic Meds Tresiba 120 units at bedtime Humalog 30 units TID Actos 30 mg daily - Assessment & Plan ASSESSMENT: * See progress note from 12/10/18 for more background info, in short: * Pt receiving SQ basal bolus insulin regimen for hyperglycemia secondary to baseline DM (outpatient regimen on hold); currently NPO for obstruction. D5 with bicarb running at 150 mLs/hr * Patient is currently receiving an average of 95 units of insulin per day * 90 units of basal insulin * 5 units of prandial/correctional insulin * BSGs ranging 77 - 112 mg/dl over the past 24hrs * Changes needed to insulin regimen: * AM Fasting BSG = 81 mg/dl. This is below goal range for patient based on inpatient targets and co-morbidities. Basal insulin was reduced by half yesterday by physician. After discussing with Dr Patel, patient will remain NPO for bowel obstruction. Dextrose infusion started. Half of total insulin dose given this morning. Small scale for this evening in case 45 units not enough. Scale established for tomorrow morning. * Post-prandial BSGs are controlled. Change to q6 hour checks for NPO status plus increase goal range to prevent hypoglycemia with NPO status. * Total daily dose = ? units. TBD with changing nutritional status. PLAN FOR INPATIENT GLYCEMIC CONTROL: * Lantus 45 unit SQ x 1 then * Lantus 35-65 units in the morning (35 units for BSG less than 100; 45 units for BSG 100-140; 55 units for BSG 141-180; 65 units for BSG greater than 180 mg/dL) * Lantus 0-20 units HS (0 units if blood sugar under 160 mg/dL; 10 units if blood sugar 160-200 mg/dL; 20 units if blood sugar over 200 mg/dL) * Continuing correction factor of 10 mg/dl/unit * Continuing carb ratio of 1 unit per 4 grams CHO consumed * Changing goal range to Low 140 mg/dL - High 180 mg/dL * Please note that the plan above was derived based on current level of insulin resistance and hospital stress. These recommendations are appropriate for inpatient admission only. Plan of care upon discharge will need to be reassessed to avoid potential outpatient hypo/hyperglycemia. Thank you.
[2018-12-14] MEDS: SODIUM BICARBONATE 8.4% 50 MEQ in DEXTROSE 5% 1,000 ML IV SCH ×2 (11:27→19:39)
[2018-12-14] MEDS: METOPROLOL TARTRATE 1 MG/ML VIAL IV SCH ×2 (13:02→17:33)
--- NOTE | 2018-12-14 16:54 | Nephrology Progress Note ---
Date of Service December 14, 2018 Assessment & Plan (1) Disorders of fluid, electrolyte, and acid-base balance: chronic acid/base disorder > chronic metabolic acidosis; now w/ NGT and SBO -recheck bmp phos, mag now (1700) and adjust IVF accordingly >> currently on D5W w/ 50 mEq/L of sodium bicarb at 150 mL/hr; so far 500 mL negative for the day Present on Admission?: Yes (2) Recurrent falls: per critical care and primary service; may be in part d/t electrolyte abnormalities (3) Ankle fracture, left: s/p ORIF 12/13 Subjective seen on rounds at 1445; dx'd w/ SBO NPO, NGT, surgery following. she had just moved bowels when I evaluated her no sob, ongoing L ankle pain but better; Review of Systems Review of Systems: All systems reviewed & are unremarkable except as noted in HPI & below Physical Exam Constitutional: well developed, well nourished, + obese and cooperative less anxious today; on ra; NGT w/ yellow brown OP Eyes: EOM intact bilaterally ENMT: Ears: no external ear abnormality Nose: no external nose abnormality Mouth: + dry oral mucous membranes Neck: no nuchal rigidity Respiratory: normal respiratory effort Auscultation: + diminished lung sounds Cardiovascular: Rate/Rhythm: regular rhythm and + tachycardic Extremities: + edema Gastrointestinal (Abdomen): Inspection/Auscultation: + abdomen distended and + high-pitched sounds Percussion/Palpation: abdomen soft; abdomen nontender Musculoskeletal: Extremities: strength 5/5 throughout Skin: no rashes, warm and dry facial erythema; L ankle wrapped/casted Neurologic: pizarro, no tremor, fluent speech Psychiatric: A+Ox3, euthymic affect Orientation: alert and oriented x 3 Speech: normal rate/rhythm/volume of speech Affect: + anxious affect Results & Data Vital Signs (Past 12 Hours) Vital Signs Temp Pulse Pulse Resp BP BP Pulse Ox 12/14/18 16:28 36.7 C 110 H 20 127/81 100 12/14/18 13:02 71 129/81 12/14/18 11:38 36.8 C 76 18 165/96 H 95 12/14/18 07:24 36.7 C 81 20 147/92 H 92 12/14/18 07:00 85 Laboratory Results Abnormal lab results 12/14/18 12/14/18 Range/Units 06:06 11:50 BUN 28 H (7-18) mg/dl BUN/Creatinine Ratio 32.0 H (10-20) POC Glucose 58 L* (70-99) (1) Ankle fracture, left Encounter type: initial encounter Fracture type: closed Qualified Code(s): S82.892A - Other fracture of left lower leg, initial encounter for closed fracture
[2018-12-14 18:04] LABS: BUN Creatinine Ratio 28.7 (10-20); Calcium 9.5 mg/dl (8.5-10.1); Creatinine Clr Calc Pharmacy 87.4 ml/min; Est GFR (African American) 88.3; Est GFR (Non-African American) 76.2; Phosphorus 2.6 mg/dl (2.5-4.9)
--- NOTE | 2018-12-14 18:38 | Orthopedic Progress Note ---
Date of Service December 14, 2018 Assessment & Plan (1) Fracture of lateral malleolus of left ankle: POD #2 s/p Left Distal Fibula Open Reduction Internal Fixation with Left Ankle Syndesmosis Screw Placement NWB LLE at all times. Splint to stay in place for 2 weeks. Ice/elevation. Pain control Will follow up with Dr. Gray's clinic in 2 weeks. Subjective Left ankle pain has been much better today. No ankle complaints. Has been NWB on the LLE. Physical Exam Constitutional: no acute distress Musculoskeletal: Left ankle: splint C/D/I. Toes are mobile. Sensation intact to light touch. Psychiatric: Orientation: alert and oriented x 3 Results & Data Vital Signs (Past 12 Hours) Vital Signs Temp Pulse Pulse Resp BP BP Pulse Ox 12/14/18 17:33 68 131/73 12/14/18 16:28 36.7 C 110 H 20 127/81 100 12/14/18 13:02 71 129/81 12/14/18 11:38 36.8 C 76 18 165/96 H 95 12/14/18 07:24 36.7 C 81 20 147/92 H 92 12/14/18 07:00 85
[2018-12-14 18:50] LABS: Potassium 3.5 mmol/L (3.5-5.1)
[2018-12-14 18:52] LABS: Magnesium 1.9 mg/dl (1.8-2.4)
[2018-12-14 19:35] LABS: Appearance Urine Cloudy (Clear); Bacteria Urine Automated Negative (Negative); Blood Urine 3+ (Negative); Color Urine Orange; Glucose Urine UA Negative (Negative); Ketones Urine Negative (Negative); Leukocyte Esterase Urine 1+ (Negative); Nitrite Urine Positive (Negative); RBC Urine Automated >30 /hpf (0-4); Specific Gravity Urine 1.025 (1.000-1.030); Urobilinogen Urine Negative (Negative); WBC Urine Automated >30 /hpf (0-5); pH Urine 8.5 (4.5-7.5)
[2018-12-14 19:42] LABS: Protein Urine 3+ (Negative)
[2018-12-14 19:48] LABS: Bilirubin Urine Negative (Negative); Ictotest Urine Negative (Negative)
--- NOTE | 2018-12-14 20:05 | Hospitalist Progress Note ---
Date of Service December 14, 2018 Assessment & Plan (1) Diabetes mellitus, insulin dependent (IDDM), uncontrolled: Diabetes mellitus, insulin dependent (IDDM), uncontrolled (Acute) History of diabetes mellitus diagnosed in 2014 at the age of 38. 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 Patient is required insulin therapy for management, but not certain that she has type 1 disease. Blood sugar at time of admission was 343. Anion gap was 15. However, there was no ketonuria. BHB was ordered, but could not be interpreted because of hemolysis. Treated for suspected DKA with IV insulin with improvement of blood sugars and metabolic acidosis. Pharmacy consulted for glycemic management and Line Leader consulted as well. Hemoglobin A1c 12.6. Transitioned to SQ insulin. Fasting blood sugar today = 77. Now NPO. Dextrose added to IVF. Insulin adjustments per Pharmacy. Ongoing monitoring/education/support. Acute kidney injury / Dehydration (Acute) Serum creatinine at time of admission was 4.67, compared to baseline of around 0.9. Acute kidney injury probably secondary to severe dehydration from chronic diarrhea and/or osmotic diuresis from hyperglycemia. Nephrology consulted. Received IV fluids with improvement. Creatinine today = 0.87. Closed left ankle fracture (Acute) Ortho consulted. ORIF performed by Dr. Gray /- POD # 2. Having severe postop pain. Titrate analgesics. Nonweightbearing status LLE. Hypertension (Chronic) Continue propranolol and amlodipine. GERD (gastroesophageal reflux disease) (Chronic) Continue PPI. 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 Sodium bicarbonate supplementation per Nephrology. Bowel obstruction (Acute) Developed worsening nausea and vomiting postop. KUB suggested bowel obstruction; NGT placed. General Surgery consulted. Probable bowel obstruction secondary to adhesions, hopefully will improve with conservative management. Continue NGT, bowel rest, IV fluids, analgesics. DVT prophylaxis Receiving SQ heparin. Disposition Discharge disposition to be determined- ? home vs skilled care / rehab. Medical follow-up with Dr. Garsia. Endocrinology follow-up with [facility]. Subjective Recheck for multiple problems. Patient seen in their room around 1020. Developed worsening nausea and vomiting last night. KUB suggested bowel obstruction. NGT placed with output of a large volume of bilious gastric contents. [place] better after NGT. Still having severe left ankle pain, requiring analgesics. Review of Systems: Constitutional- no fever. Cardiac- no chest pain. Pulmonary- no cough or SOB. GI- as noted above. - Cheng cath. Otherwise, as noted above. Physical Exam Physical Exam: Constitutional- afebrile, appears to be uncomfortable, but no acute distress Eyes- sclerae anicteric ENT- NGT Respiratory- clear to auscultation, no respiratory distress Cardiovascular- cardiac rhythm regular, no murmurs or gallops appreciated, no JVD, no pretibial edema or calf tenderness Gastrointestinal- quiet, moderately distended, soft, diffuse moderate tenderness Skin- warm and dry, no rash Psychiatric- alert, oriented Results & Data Vital Signs (Past 12 Hours) Vital Signs Temp Pulse Pulse Resp BP BP Pulse Ox 12/14/18 19:36 36.7 C 71 20 143/88 H 98 12/14/18 17:33 68 131/73 12/14/18 16:28 36.7 C 110 H 20 127/81 100 12/14/18 14:20 75 12/14/18 13:02 71 129/81 12/14/18 11:38 36.8 C 76 18 165/96 H 95 Laboratory Results Laboratory Results - last 24 hr 12/13/18 12/14/18 12/14/18 23:00 06:01 06:06 Sodium 136 Potassium 3.8 D Chloride 101 Carbon Dioxide 26 Anion Gap 10.0 BUN 28 H Creatinine 0.87 D Est Cr Clr Drug Dosing 91.4 Est GFR ( Amer) 93.2 Est GFR (Non-Af Amer) 80.5 BUN/Creatinine Ratio 32.0 H Glucose 81 POC Glucose 72 77 Calcium 9.3 Phosphorus Magnesium Urine Color Urine Appearance Urine pH Ur Specific [place] Urine Protein Urine Glucose (UA) Urine Ketones Urine Blood Urine Nitrite Urine Bilirubin Urine Urobilinogen Ur Leukocyte Esterase Urine WBC (Auto) Urine RBC (Auto) U Hyaline Cast (Auto) U Epithel Cells (Auto) Urine Bacteria (Auto) 12/14/18 12/14/18 12/14/18 06:06 11:50 12:08 Sodium Potassium Chloride Carbon Dioxide Anion Gap BUN Creatinine Est Cr Clr Drug Dosing Est GFR ( Amer) Est GFR (Non-Af Amer) BUN/Creatinine Ratio Glucose POC Glucose 58 L* 71 Calcium Phosphorus 3.1 Magnesium 2.0 Urine Color Urine Appearance Urine pH Ur Specific [place] Urine Protein Urine Glucose (UA) Urine Ketones Urine Blood Urine Nitrite Urine Bilirubin Urine Urobilinogen Ur Leukocyte Esterase Urine WBC (Auto) Urine RBC (Auto) U Hyaline Cast (Auto) U Epithel Cells (Auto) Urine Bacteria (Auto) 12/14/18 12/14/18 12/14/18 16:53 17:28 17:30 Sodium 132 L Potassium Chloride 97 L Carbon Dioxide 28 Anion Gap 7.0 BUN 26 H Creatinine 0.91 Est Cr Clr Drug Dosing 87.4 Est GFR ( Amer) 88.3 Est GFR (Non-Af Amer) 76.2 BUN/Creatinine Ratio 28.7 H Glucose 88 POC Glucose 80 87 Calcium 9.5 Phosphorus 2.6 Magnesium Urine Color Urine Appearance Urine pH Ur Specific [place] Urine Protein Urine Glucose (UA) Urine Ketones Urine Blood Urine Nitrite Urine Bilirubin Urine Urobilinogen Ur Leukocyte Esterase Urine WBC (Auto) Urine RBC (Auto) U Hyaline Cast (Auto) U Epithel Cells (Auto) Urine Bacteria (Auto) 12/14/18 12/14/18 17:55 18:21 Sodium Potassium 3.5 Chloride Carbon Dioxide Anion Gap BUN Creatinine Est Cr Clr Drug Dosing Est GFR ( Amer) Est GFR (Non-Af Amer) BUN/Creatinine Ratio Glucose POC Glucose Calcium Phosphorus Magnesium 1.9 Urine Color [place] Urine Appearance Cloudy A Urine pH 8.5 H Ur Specific [place] 1.025 Urine Protein 3+ H Urine Glucose (UA) Negative Urine Ketones Negative Urine Blood 3+ H Urine Nitrite Positive A Urine Bilirubin Negative Urine Urobilinogen Negative Ur Leukocyte Esterase 1+ H Urine WBC (Auto) >30 H Urine RBC (Auto) >30 H U Hyaline Cast (Auto) 1-5 U Epithel Cells (Auto) 10-20 H Urine Bacteria (Auto) Negative Diagnostic Findings KUB FINDINGS: Distended stomach with multiple distended air-filled loops of large and small bowel. Small bowel loops measure up to approximately 5.6 cm transversely. Cholecystectomy. Posterior interbody aria and screw fusion L4-L5. No pneumatosis or pneumoperitoneum. No definite urolith. IMPRESSION: Gaseous distention of the stomach and small bowel with air also noted within the colon. Ileus versus distal obstruction are the differential considerations. Follow-up recommended. Electronically signed by: Jerrell Marquez M.D. 12/14/2018 6:34 AM
[2018-12-14] MEDS: POTASSIUM CHLORIDE 10 MEQ in SODIUM CHLORIDE 0.9% 1000ML 1,000 ML IV SCH (20:19)
[2018-12-14] MEDS: FAMOTIDINE 20 MG in SYRINGE 3 ML IV SCH (21:32)
[2018-12-14] MEDS: cefTRIAXone SODIUM 2,000 MG in DEXTROSE 5% 50 ML IV SCH (21:32)
[2018-12-15] MEDS: DEXTROSE 50% 50 ML SYRINGE IV PRN ×2 (00:34→04:17)
[2018-12-15] MEDS: METOPROLOL TARTRATE 1 MG/ML VIAL IV SCH ×5 (00:56→23:55)
[2018-12-15] MEDS: INSULIN ASPART 100 UNITS/ML 3 ML PEN SC SCH ×4 (01:27→18:05)
[2018-12-15] MEDS: HYDROmorphone INJ 1 MG/ML SYRINGE IV PRN ×7 (01:36→21:05)
[2018-12-15] MEDS: POTASSIUM CHLORIDE 10 MEQ in SODIUM CHLORIDE 0.9% 1000ML 1,000 ML IV SCH (04:52)
[2018-12-15] MEDS ORDERED: POTASSIUM CHLORIDE 10 MEQ in D5W AND NSS 1,000 ML IV SCH (05:00)
[2018-12-15] MEDS ORDERED: CHLORASEPTIC 1.4% SOLN 180 ML BTL MT PRN (05:04)
--- NOTE | 2018-12-15 07:35 | Surgery Progress Note ---
Date of Service December 15, 2018 Assessment & Plan (1) Ileus: she feels better, had small bowel movement, immobile NG- 400 / 24 hrs- more clear bilious abd- distended, decreased bowel sounds cont with NG- may be prolonged, monitor lytes may need ppn/ tpn Results & Data Vital Signs (Past 12 Hours) Vital Signs Temp Pulse Resp BP Pulse Ox 12/15/18 04:00 36.5 C 74 20 167/89 H 95 12/14/18 22:22 36.7 C 73 18 133/80 96 12/14/18 19:36 36.7 C 71 20 143/88 H 98 PG Care Time/CCT Total # of Minutes Spent Total Time Spent with Patient: Total time spent is greater than 50% in coordination of care (as documented) at patient's floor/unit and/or counseling patient:
--- NOTE | 2018-12-15 07:42 | XRay Report ---
XR KUB/Abdomen 1 view CLINICAL HISTORY: bowel obstruction COMPARISON STUDY: 12/14/2018 FINDINGS: Examination was performed in a portable fashion. A nasogastric tube is visualized. There is persistent but decreasing small bowel distention with small bowel loops measuring up to 4.3 cm in di ameter. Postsurgical changes are present within the lumbar spine. IMPRESSION: Persistent but decreasing small bowel distention. Electronically signed by: Nael Walsh M.D. 12/15/2018 7:40 AM
[2018-12-15] MEDS: INSULIN GLARGINE SOLOSTAR 100 UNITS/ML 3 ML PEN SC SCH (08:26)
[2018-12-15] MEDS: FAMOTIDINE 20 MG in SYRINGE 3 ML IV SCH ×2 (08:26→21:25)
--- NOTE | 2018-12-15 08:48 | Hospitalist Progress Note ---
Date of Service December 15, 2018 Assessment & Plan (1) Diabetes mellitus, insulin dependent (IDDM), uncontrolled: Diabetes mellitus, insulin dependent (IDDM), uncontrolled (Acute) History of diabetes mellitus diagnosed in 2014 at the age of 38. 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 Patient is required insulin therapy for management, but not certain that she has type 1 disease. Blood sugar at time of admission was 343. Anion gap was 15. However, there was no ketonuria. BHB was ordered, but could not be interpreted because of hemolysis. Treated for suspected DKA with IV insulin with improvement of blood sugars and metabolic acidosis. Pharmacy consulted for glycemic management and Jewelry Repairer consulted as well. Hemoglobin A1c 12.6. Transitioned to SQ insulin. Now NPO. Dextrose added to IVF. Insulin adjustments per Pharmacy. Blood sugar this morning = 102. Ongoing monitoring/education/support. Acute kidney injury / Dehydration (Acute) Serum creatinine at time of admission was 4.67, compared to baseline of around 0.9. Acute kidney injury probably secondary to severe dehydration from chronic diarrhea and/or osmotic diuresis from hyperglycemia. Nephrology consulted. Received IV fluids with improvement. Creatinine today = pending. Closed left ankle fracture (Acute) Ortho consulted. ORIF performed by Dr. Gray /- POD # 3. Still having severe postop pain. Titrate analgesics. Nonweightbearing status LLE. Hypertension (Chronic) Usually takes propranolol and amlodipine. Now NPO and receiving IV metoprol. GERD (gastroesophageal reflux disease) (Chronic) Usually takes PPI. Now NPO and receiving IV famotidine. 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 Sodium bicarbonate supplementation per Nephrology. Bowel obstruction (Acute) Developed worsening nausea and vomiting postop. KUB suggested bowel obstruction; NGT placed. General Surgery consulted. Probable bowel obstruction secondary to adhesions, hopefully will improve with conservative management. Continue NGT, bowel rest, IV fluids, analgesics. Abnormal UA Noted to have gross hematuria via Cheng. UA showed 3+ blood, nitrite, leukocyte esterase, WBC's, RBC's, epithelial cells, but no bacteria. Afebrile. May or may not have UTI. Urine culture pending. IV ceftriaxone pending C&S results. DVT prophylaxis Received SQ heparin, but developed hematuria. Heparin held. SCD's ordered. Hematuria improved. Try restarting heparin. Disposition Discharge disposition to be determined- ? home vs skilled care / rehab. Medical follow-up with Dr. Garsia. Endocrinology follow-up with [facility]. Subjective Recheck for multiple problems. Patient seen in their room around 0830. Hypoglycemia during the night. IVF and insulin dose adjusted. Still has NGT. Not passing any flatus or stool yet today (passed a small amount of stool last night). No abdominal pain, nausea, vomiting. Noted to have hematuria via Cheng yesterday afternoon; heparin held. Started on ceftriaxone for possible UTI. No fever. Still having severe ankle pain, but somewhat less severe. Still requiring hydromorphone for adequate analgesia. Review of Systems: Constitutional- no fever. Cardiac- no chest pain. Pulmonary- no cough or SOB. GI- as noted above. - Cheng cath. Otherwise, as noted above. Physical Exam Physical Exam: Constitutional- afebrile, but no acute distress Eyes- sclerae anicteric ENT- NGT Respiratory- clear to auscultation, no respiratory distress Cardiovascular- cardiac rhythm regular, no murmurs or gallops appreciated, no JVD, no pretibial edema or calf tenderness Gastrointestinal- + BS, moderately distended, soft, nontender - Cheng cath draining clear urine Extremities- left ankle splinted; capillary refill left toes < 2 sec Skin- warm and dry, no rash Psychiatric- alert, oriented Results & Data Vital Signs (Past 12 Hours) Vital Signs Temp Pulse Resp BP Pulse Ox 12/15/18 04:00 36.5 C 74 20 167/89 H 95 12/14/18 22:22 36.7 C 73 18 133/80 96 Laboratory Results Laboratory Results - last 24 hr 12/14/18 12/14/18 12/14/18 06:06 11:50 12:08 Sodium Potassium Chloride Carbon Dioxide Anion Gap BUN Creatinine Est Cr Clr Drug Dosing Est GFR ( Amer) Est GFR (Non-Af Amer) BUN/Creatinine Ratio Glucose POC Glucose 58 L* 71 Calcium Phosphorus 3.1 Magnesium 2.0 Urine Color Urine Appearance Urine pH Ur Specific [place] Urine Protein Urine Glucose (UA) Urine Ketones Urine Blood Urine Nitrite Urine Bilirubin Urine Urobilinogen Ur Leukocyte Esterase Urine WBC (Auto) Urine RBC (Auto) U Hyaline Cast (Auto) U Epithel Cells (Auto) Urine Bacteria (Auto) 12/14/18 12/14/18 12/14/18 16:53 17:28 17:30 Sodium 132 L Potassium Chloride 97 L Carbon Dioxide 28 Anion Gap 7.0 BUN 26 H Creatinine 0.91 Est Cr Clr Drug Dosing 87.4 Est GFR ( Amer) 88.3 Est GFR (Non-Af Amer) 76.2 BUN/Creatinine Ratio 28.7 H Glucose 88 POC Glucose 80 87 Calcium 9.5 Phosphorus 2.6 Magnesium Urine Color Urine Appearance Urine pH Ur Specific [place] Urine Protein Urine Glucose (UA) Urine Ketones Urine Blood Urine Nitrite Urine Bilirubin Urine Urobilinogen Ur Leukocyte Esterase Urine WBC (Auto) Urine RBC (Auto) U Hyaline Cast (Auto) U Epithel Cells (Auto) Urine Bacteria (Auto) 12/14/18 12/14/18 12/14/18 17:55 18:21 20:07 Sodium Potassium 3.5 Chloride Carbon Dioxide Anion Gap BUN Creatinine Est Cr Clr Drug Dosing Est GFR ( Amer) Est GFR (Non-Af Amer) BUN/Creatinine Ratio Glucose POC Glucose 73 Calcium Phosphorus Magnesium 1.9 Urine Color [place] Urine Appearance Cloudy A Urine pH 8.5 H Ur Specific [place] 1.025 Urine Protein 3+ H Urine Glucose (UA) Negative Urine Ketones Negative Urine Blood 3+ H Urine Nitrite Positive A Urine Bilirubin Negative Urine Urobilinogen Negative Ur Leukocyte Esterase 1+ H Urine WBC (Auto) >30 H Urine RBC (Auto) >30 H U Hyaline Cast (Auto) 1-5 U Epithel Cells (Auto) 10-20 H Urine Bacteria (Auto) Negative 12/15/18 12/15/18 12/15/18 00:26 00:57 04:02 Sodium Potassium Chloride Carbon Dioxide Anion Gap BUN Creatinine Est Cr Clr Drug Dosing Est GFR ( Amer) Est GFR (Non-Af Amer) BUN/Creatinine Ratio Glucose POC Glucose 56 L* 111 H 62 L* Calcium Phosphorus Magnesium Urine Color Urine Appearance Urine pH Ur Specific [place] Urine Protein Urine Glucose (UA) Urine Ketones Urine Blood Urine Nitrite Urine Bilirubin Urine Urobilinogen Ur Leukocyte Esterase Urine WBC (Auto) Urine RBC (Auto) U Hyaline Cast (Auto) U Epithel Cells (Auto) Urine Bacteria (Auto) 12/15/18 12/15/18 12/15/18 04:04 04:32 06:02 Sodium Potassium Chloride Carbon Dioxide Anion Gap BUN Creatinine Est Cr Clr Drug Dosing Est GFR ( Amer) Est GFR (Non-Af Amer) BUN/Creatinine Ratio Glucose POC Glucose 56 L* 124 H 86 Calcium Phosphorus Magnesium Urine Color Urine Appearance Urine pH Ur Specific [place] Urine Protein Urine Glucose (UA) Urine Ketones Urine Blood Urine Nitrite Urine Bilirubin Urine Urobilinogen Ur Leukocyte Esterase Urine WBC (Auto) Urine RBC (Auto) U Hyaline Cast (Auto) U Epithel Cells (Auto) Urine Bacteria (Auto) 12/15/18 08:02 Sodium Potassium Chloride Carbon Dioxide Anion Gap BUN Creatinine Est Cr Clr Drug Dosing Est GFR ( Amer) Est GFR (Non-Af Amer) BUN/Creatinine Ratio Glucose POC Glucose 102 H Calcium Phosphorus Magnesium Urine Color Urine Appearance Urine pH Ur Specific [place] Urine Protein Urine Glucose (UA) Urine Ketones Urine Blood Urine Nitrite Urine Bilirubin Urine Urobilinogen Ur Leukocyte Esterase Urine WBC (Auto) Urine RBC (Auto) U Hyaline Cast (Auto) U Epithel Cells (Auto) Urine Bacteria (Auto)
[2018-12-15] MEDS ORDERED: INSULIN GLARGINE SOLOSTAR 100 UNITS/ML 3 ML PEN SC SCH (09:00)
--- NOTE | 2018-12-15 09:54 | Nephrology Progress Note ---
Date of Service December 15, 2018 Assessment & Plan (1) Disorders of fluid, electrolyte, and acid-base balance: chronic acid/base disorder > chronic metabolic acidosis; now w/ NGT and SBO -lytes were all ok this am but slightly low K; currently on D5NS w/ 20 mEq/L K at 150 mL/hr< I increased K in this this am based on labs -recheck chemistries in am (2) Ankle fracture, left: s/p ORIF 12/13; w/ recurrent and unexplained falls prior to admission (3) Ileus: postoperative ileus -on NGT, bowel rest; may soon need PPN/TPN Present on Admission?: No Subjective ileus continues; passing small flatus; small bm yesterday; ankle pain controlled, no sob, no f/c, no edema; on ceftriaxone for GNR UTI Review of Systems Review of Systems: All systems reviewed & are unremarkable except as noted in HPI & below Physical Exam Constitutional: well developed, well nourished, + obese and cooperative lying flat on RA Eyes: EOM intact bilaterally ENMT: Ears: no external ear abnormality Nose: no external nose abnormality Mouth: + dry oral mucous membranes Neck: no nuchal rigidity Respiratory: normal respiratory effort Auscultation: + diminished lung sounds Cardiovascular: RRR, no murmur, no edema Rate/Rhythm: regular rhythm Extremities: + edema Gastrointestinal (Abdomen): Inspection/Auscultation: + abdomen distended and + hypoactive bowel sounds Percussion/Palpation: abdomen soft; abdomen nontender NGT present Musculoskeletal: Extremities: strength 5/5 throughout Skin: no rashes, warm and dry plethoric fascies Neurologic: pizarro, fluent speech, no tremor Psychiatric: A+Ox3, euthymic affect Orientation: alert and oriented x 3 Speech: normal rate/rhythm/volume of speech Affect: + anxious affect Genitourinary: damico w/ ample urine Results & Data Vital Signs (Past 12 Hours) Vital Signs Temp Pulse Resp BP Pulse Ox 12/15/18 04:00 36.5 C 74 20 167/89 H 95 12/14/18 22:22 36.7 C 73 18 133/80 96 Laboratory Results Abnormal lab results 12/14/18 12/14/18 12/14/18 Range/Units 11:50 17:28 17:55 Sodium 132 L (136-145) mmol/L Chloride 97 L (98-107) mmol/L BUN 26 H (7-18) mg/dl BUN/Creatinine Ratio 28.7 H (10-20) POC Glucose 58 L* (70-99) Urine Appearance Cloudy A (Clear) Urine pH 8.5 H (4.5-7.5) Urine Protein 3+ H (Negative) Urine Blood 3+ H (Negative) Urine Nitrite Positive A (Negative) Ur Leukocyte Esterase 1+ H (Negative) Urine WBC (Auto) >30 H (0-5) /hpf Urine RBC (Auto) >30 H (0-4) /hpf U Epithel Cells (Auto) 10-20 H (0-5) /lpf 12/15/18 12/15/18 12/15/18 Range/Units 00:26 00:57 04:02 Sodium (136-145) mmol/L Chloride (98-107) mmol/L BUN (7-18) mg/dl BUN/Creatinine Ratio (10-20) POC Glucose 56 L* 111 H 62 L* (70-99) Urine Appearance (Clear) Urine pH (4.5-7.5) Urine Protein (Negative) Urine Blood (Negative) Urine Nitrite (Negative) Ur Leukocyte Esterase (Negative) Urine WBC (Auto) (0-5) /hpf Urine RBC (Auto) (0-4) /hpf U Epithel Cells (Auto) (0-5) /f 12/15/18 12/15/18 12/15/18 Range/Units 04:04 04:32 08:02 Sodium (136-145) mmol/L Chloride (98-107) mmol/L BUN (7-18) mg/dl BUN/Creatinine Ratio (10-20) POC Glucose 56 L* 124 H 102 H (70-99) Urine Appearance (Clear) Urine pH (4.5-7.5) Urine Protein (Negative) Urine Blood (Negative) Urine Nitrite (Negative) Ur Leukocyte Esterase (Negative) Urine WBC (Auto) (0-5) /hpf Urine RBC (Auto) (0-4) /hpf U Epithel Cells (Auto) (0-5) /lpf Diagnostic Findings cxr> IMPRESSION: Persistent but decreasing small bowel distention. (1) Ankle fracture, left Encounter type: initial encounter Fracture type: closed Qualified Code(s): S82.892A - Other fracture of left lower leg, initial encounter for closed fracture
--- NOTE | 2018-12-15 11:02 | Pharmacy Report ---
Pharmacy Glycemic Short Note 2 - Date of Service December 15, 2018 - Glycemic Short BSG Results (Last 24 hours): 12/14/18 12/14/18 12/14/18 11:50 12:08 16:53 Glucose POC Glucose 58 L* 71 80 12/14/18 12/14/18 12/14/18 17:28 17:30 20:07 Glucose 88 POC Glucose 87 73 12/15/18 12/15/18 12/15/18 00:26 00:57 04:02 Glucose POC Glucose 56 L* 111 H 62 L* 12/15/18 12/15/18 12/15/18 04:04 04:32 06:02 Glucose POC Glucose 56 L* 124 H 86 12/15/18 08:02 Glucose POC Glucose 102 H OUTPATIENT ANTIDIABETIC REGIMEN: * Tresiba 120 units SQ qHS * Humalog 30 units SQ TID * Actos 30 mg PO daily * HbA1c: 12.6% 12/11/18 ASSESSMENT: * Pt continues to have LOW BSG despite significant dose reductions in insulin. Pt NPO but has continuous dextrose IVF * Total daily doses 108--> 95 --> 45 units yesterday. * Will continue to reduce insulin dosing - cut by 50% today and re-evaluate in 24hrs. PLAN FOR INPATIENT GLYCEMIC CONTROL: * Hold outpatient oral diabetes medications and Tresiba * Basal insulin: decreased * Lantus 20 units this AM only * May need to slightly increase tomorrow since this is >50% reduction * Bolus insulin: no change * NovoLog per scale ACHS or Q6hrs while NPO * Goal Range: Low 140 mg/dL - High 180 mg/dL (elevated goal range secondary to repeated lows and elevated A1c) * Correction Factor: 10 mg/dL/unit * Nutritional / Prandial insulin per carb ratio of 1 unit per 4 grams CHO consumed Discharge Recommendations: Pending
[2018-12-15] MEDS: D5NSS + 20MEQ KCL 20 MEQ/1,000 ML BAG IV SCH ×2 (11:54→18:21)
[2018-12-15 12:25] LABS: Hematocrit (blood only) 35.6 % (37-47); Hemoglobin 11.3 g/dL (12.0-16.0); Mean Corpuscular Hemoglobin 24.5 pg (25-34); Mean Corpuscular Hgb Conc 31.7 g/dL (32-36); Mean Corpuscular Volume 77.2 fL (80-100); Mean Platelet Volume 10.5 fL (7.4-10.4); Nucleated RBC # (auto) 0.02 K/uL (0-0); Nucleated RBC % (auto) 0.2 %; Platelet Count 307 K/uL (130-400); RDW Coefficient of Variation 17.2 % (11.5-14.5); RDW Standard Deviation 47.8 fL (36.4-46.3); Red Blood Count 4.61 M/uL (4.2-5.4); White Blood Count 8.91 K/uL (4.8-10.8)
[2018-12-15 12:47] LABS: BUN Creatinine Ratio 25.2 (10-20); Calcium 9.4 mg/dl (8.5-10.1); Est GFR (African American) 94.6; Est GFR (Non-African American) 81.6; Phosphorus 2.3 mg/dl (2.5-4.9)
[2018-12-15] MEDS: cefTRIAXone SODIUM 2,000 MG in DEXTROSE 5% 50 ML IV SCH (21:25)
[2018-12-16] MEDS: INSULIN ASPART 100 UNITS/ML 3 ML PEN SC SCH ×4 (00:24→18:25)
[2018-12-16] MEDS: HYDROmorphone INJ 1 MG/ML SYRINGE IV PRN ×5 (00:46→21:13)
[2018-12-16] MEDS: D5NSS + 20MEQ KCL 20 MEQ/1,000 ML BAG IV SCH ×2 (03:12→11:45)
[2018-12-16 05:50] LABS: Hematocrit (blood only) 32.5 % (37-47); Mean Corpuscular Hgb Conc 30.8 g/dL (32-36); Mean Corpuscular Volume 77.9 fL (80-100); Mean Platelet Volume 10.1 fL (7.4-10.4); Platelet Count 272 K/uL (130-400); RDW Coefficient of Variation 17.1 % (11.5-14.5); RDW Standard Deviation 48.2 fL (36.4-46.3); Red Blood Count 4.17 M/uL (4.2-5.4); White Blood Count 7.77 K/uL (4.8-10.8)
[2018-12-16] MEDS: METOPROLOL TARTRATE 1 MG/ML VIAL IV SCH ×3 (06:08→18:24)
[2018-12-16 06:25] LABS: BUN Creatinine Ratio 21.3 (10-20); Calcium 9.1 mg/dl (8.5-10.1); Est GFR (African American) 113.4; Est GFR (Non-African American) 97.8; Potassium 3.6 mmol/L (3.5-5.1)
[2018-12-16 06:26] LABS: Phosphorus 2.2 mg/dl (2.5-4.9)
[2018-12-16] MEDS: INSULIN GLARGINE SOLOSTAR 100 UNITS/ML 3 ML PEN SC SCH (07:42)
[2018-12-16] MEDS: FAMOTIDINE 20 MG in SYRINGE 3 ML IV SCH ×2 (07:42→21:08)
--- NOTE | 2018-12-16 07:59 | Hospitalist Progress Note ---
Date of Service December 16, 2018 Assessment & Plan (1) Diabetes mellitus, insulin dependent (IDDM), uncontrolled: Diabetes mellitus, insulin dependent (IDDM), uncontrolled (Acute) History of diabetes mellitus diagnosed in 2014 at the age of 38. 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 Patient is required insulin therapy for management, but not certain that she has type 1 disease. Blood sugar at time of admission was 343. Anion gap was 15. However, there was no ketonuria. BHB was ordered, but could not be interpreted because of hemolysis. Treated for suspected DKA with IV insulin with improvement of blood sugars and metabolic acidosis. Pharmacy consulted for glycemic management and [facility] consulted as well. Hemoglobin A1c 12.6. Transitioned to SQ insulin. Now NPO. Dextrose added to IVF. Insulin adjustments per Pharmacy. Blood sugar this morning = 137. Ongoing monitoring/education/support. Acute kidney injury / Dehydration (Acute) Serum creatinine at time of admission was 4.67, compared to baseline of around 0.9. Acute kidney injury probably secondary to severe dehydration from chronic diarrhea and/or osmotic diuresis from hyperglycemia. Nephrology consulted. Received IV fluids with improvement. Creatinine today = 0.74. Closed left ankle fracture (Acute) Ortho consulted. ORIF performed by Dr. Gray 12/12- POD # 4. Less postop pain. Titrate analgesics. Nonweightbearing status LLE. Hypertension (Chronic) Usually takes propranolol and amlodipine. Now NPO and receiving IV metoprolol. GERD (gastroesophageal reflux disease) (Chronic) Usually takes PPI. Now NPO and receiving IV famotidine. 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 Sodium bicarbonate supplementation per Nephrology. Bowel obstruction (Acute) Developed worsening nausea and vomiting postop. KUB suggested bowel obstruction; NGT placed. General Surgery consulted. Probable bowel obstruction secondary to adhesions, hopefully will improve with conservative management. Continue NGT, bowel rest, IV fluids, analgesics. Passing flatus. NGT to be clamped today. Abnormal UA Noted to have gross hematuria via Cheng. UA showed 3+ blood, nitrite, leukocyte esterase, WBC's, RBC's, epithelial cells, but no bacteria. Afebrile. May or may not have UTI. Urine culture growing gram negative bacilli. IV ceftriaxone pending C&S results. DVT prophylaxis Received SQ heparin, but developed hematuria. Heparin held. SCD's ordered. Hematuria improved; heparin resumed. Anxiety / Depression Worsening anxiety, probably due to duloxetine being held. Resume duloxetine via NGT. Disposition Discharge disposition to be determined- ? home vs skilled care / rehab. Medical follow-up with Dr. Garsia. Endocrinology follow-up with [facility]. Subjective Recheck for multiple problems. Patient seen in their room around 0750. Very anxious / apprehensive this morning. Has not had her duloxetine for a few days because of GI status. Seen by General Surgery. Passing flatus, but not stool. NGT to be clamped. No abdominal pain, nausea, vomiting. Ankle pain less severe. Review of Systems: Constitutional- no fever. Cardiac- no chest pain. Pulmonary- no cough or SOB. GI- as noted above. - Cheng cath. Otherwise, as noted above. Physical Exam Physical Exam: Constitutional- afebrile, anxious, no acute distress Eyes- sclerae anicteric ENT- NGT Respiratory- clear to auscultation, no respiratory distress Cardiovascular- cardiac rhythm regular, no murmurs or gallops appreciated, no JVD, no pretibial edema or calf tenderness Gastrointestinal- quiet BS, moderately distended, soft, nontender - Cheng cath draining clear urine Extremities- left ankle splinted; capillary refill left toes < 2 sec Skin- warm and dry, no rash Psychiatric- alert, oriented, anxious Results & Data Vital Signs (Past 12 Hours) Vital Signs Temp Pulse Pulse Resp BP BP BP 12/16/18 06:08 99 H 178/90 H 12/16/18 03:00 37 C 99 H 20 178/90 H 12/15/18 23:55 98 H 161/80 H 12/15/18 23:01 98 H 12/15/18 22:00 37 C 96 H 18 161/80 H 12/15/18 20:00 36.9 C 89 18 138/87 Pulse Ox 12/16/18 06:08 12/16/18 03:00 96 12/15/18 23:55 12/15/18 23:01 12/15/18 22:00 94 12/15/18 20:00 95 Laboratory Results 12/16/18 05:36 12/16/18 05:36
[2018-12-16] MEDS ORDERED: DULOXETINE HCL 30 MG CAP PO ONE (08:05)
--- NOTE | 2018-12-16 08:30 | Surgery Progress Note ---
Date of Service December 16, 2018 Assessment & Plan (1) Ileus: KUB yesterday improved, having increasing flatus will clamp NG, unclamp if she becomes symptomatic or if doing ok may remove later today Dr Carter- as above start ppn today, CT w/ contrast via NG tomorrow am slight improvement Subjective increasing flatus, high NG output recorded but had at least 2 cups of ice/water, feeling hungry, no BM Physical Exam Gastrointestinal (Abdomen): Inspection/Auscultation: + abdomen distended (minimal) Percussion/Palpation: abdomen soft; abdomen nontender Results & Data Vital Signs (Past 12 Hours) Vital Signs Temp Pulse Pulse Pulse Resp BP BP 12/16/18 07:56 36.7 C 92 H 18 186/75 H 12/16/18 06:08 99 H 178/90 H 12/16/18 03:00 37 C 99 H 20 178/90 H 12/15/18 23:55 98 H 161/80 H 12/15/18 23:01 98 H 12/15/18 22:00 37 C 96 H 18 161/80 H Pulse Ox 12/16/18 07:56 93 12/16/18 06:08 12/16/18 03:00 96 12/15/18 23:55 12/15/18 23:01 12/15/18 22:00 94 PG Care Time/CCT Total # of Minutes Spent Total Time Spent with Patient: Total time spent is greater than 50% in coordination of care (as documented) at patient's floor/unit and/or counseling patient:
[2018-12-16] MEDS: PREGABALIN 100 MG CAP PO SCH ×3 (10:04→20:03)
[2018-12-16] MEDS ORDERED: TPN/PPN CONSULT PHARMACY PRN (10:57)
--- NOTE | 2018-12-16 11:49 | Pharmacy Report ---
Pharmacy PN Initial Consult - Date of Service December 16, 2018 - Scope Pharmacy has been consulted to manage parenteral nutrition orders and order appropriate labs. As part of the Nutrition Support Team guidelines, pharmacy will work in conjunction with dietary when determining the patients caloric needs. - Subjective The patient is a 43 year old F admitted on 12/09/18 18:26 for DKA. Patient is to receive parenteral nutrition for post op ileus- NPO x 5 days. Pertinent PMH: Diabetes type 1 - currently glycemic H consult - Objective Height: 5 ft 4 in Weight: 92.1 kg Diet: NPO Intake & Output (Last 24Hrs): Intake & Output 12/14/18 12/15/18 12/16/18 12/17/18 06:59 06:59 06:59 06:59 Intake Total 840 / 840 4547.5 / 4547.5 3582.500 / 3582.500 Output Total 2525 / 2525 2725 / 2725 3500 / 3500 Balance -1685 / -1685 1822.5 / 1822.5 82.500 / 82.500 Weight 95.2 kg 94.4 kg 92.1 kg Laboratory Data (Last 24 Hrs):: 12/15/18 12/16/18 11:43 05:36 Sodium 137 139 Potassium 4.0 3.6 Chloride 102 109 H Carbon Dioxide 29 24 BUN 22 H 16 Creatinine 0.86 0.74 Glucose 98 133 H Calcium 9.4 9.1 Phosphorus 2.3 L 2.2 L Magnesium 2.0 2.0 Nutrition Assessment:: Please refer to the Notes section of the EMR for the most recent supervisor plastering note. - Assessment * 43yo T1DM female starting on PPN (peripheral parenteral nutrition) for post-op ileus, prolonged NPO * Pt has been receiving D5NS +20 KCL @ 125 ml/hr - this will stop with PPN initiated at 1600 * K+ on the low end of the range with 60 meq kcl/day with current IVF --> will increase slightly * Cl- slightly high--> should drop once maintenance IVF dc when PPN started, will minimize Cl- in PPN as well * Phos low --> risk of refeeding, will keep dextrose low and aggressively replete phos * maintenance IVF provided 150g dextrose/day --> will increase slightly to 175 g * Macros: * Recommend * Protein = 55-70g/day * Carb = 250-350g/day * Fat = up to 50g/day * Will start low and titrate slowly - Plan For day 1 of PN administration, the following will be ordered: Macronutrients Amino acids 55 grams/day Dextrose 175 grams/day Lipids 25 grams/day Micronutrients Sodium phosphate 15 MMol Sodium acetate 70 mEq Potassium phosphate 12 mMol Potassium chloride 60 mEq Magnesium sulfate 4.06 mEq Multivitamins 10 mL Trace Elements 10 mL Additional additives: may need to add insulin to PPN tomorrow based on BSGs Total volume 2000 mL to be infused over 24 hrs will provide 1065 kcal/day Final osmolarity 890 mOsm/L (maximum for PPN is 900 mOsm/L) Labs to be ordered per PN order protocol Pharmacy will follow and adjust parenteral nutrition orders on a daily basis. Thank you.
[2018-12-16] MEDS: HEPARIN SOD 5,000 UNIT/0.5 ML VIAL SQ SCH ×2 (15:58→22:05)
[2018-12-16] MEDS ORDERED: CUSTOM PERIPHERAL PN IV SCH (16:00)
[2018-12-16] MEDS ORDERED: DEXTROSE 10% 1,000 ML IV PRN (16:00)
[2018-12-16] MEDS: DULOXETINE HCL 60 MG CAP PO SCH (20:03)
[2018-12-16] MEDS ORDERED: HydrALAZINE HCL 20 MG/ML VIAL IV ONE (20:03)
[2018-12-16] MEDS: cefTRIAXone SODIUM 2,000 MG in DEXTROSE 5% 50 ML IV SCH (21:19)
[2018-12-16] MEDS ORDERED: HydrALAZINE HCL 20 MG/ML VIAL IV PRN (23:03)
[2018-12-17] MEDS: INSULIN ASPART 100 UNITS/ML 3 ML PEN SC SCH ×6 (00:33→23:52)
[2018-12-17] MEDS: METOPROLOL TARTRATE 1 MG/ML VIAL IV SCH ×7 (00:39→23:37)
[2018-12-17] MEDS: HEPARIN SOD 5,000 UNIT/0.5 ML VIAL SQ SCH ×3 (06:06→20:47)
[2018-12-17] MEDS: HYDROmorphone INJ 1 MG/ML SYRINGE IV PRN ×3 (06:12→18:50)
--- NOTE | 2018-12-17 06:58 | Surgery Progress Note ---
Date of Service December 17, 2018 Assessment & Plan (1) Ileus: tolerated some NG clamping NG pulled out during night- reinserted this am she says she has passed some flatus check CT study- contrast via NG cont supportive care Results & Data Vital Signs (Past 12 Hours) Vital Signs Temp Pulse Pulse Resp BP BP BP 12/17/18 04:00 37.2 C 100 H 18 179/93 H 12/17/18 00:52 109 H 12/17/18 00:39 103 H 182/97 H 12/16/18 23:08 36.7 C 103 H 18 182/97 H 12/16/18 19:22 36.7 C 95 H 18 193/89 H Pulse Ox 12/17/18 04:00 96 12/17/18 00:52 12/17/18 00:39 12/16/18 23:08 97 12/16/18 19:22 97 PG Care Time/CCT Total # of Minutes Spent Total Time Spent with Patient: Total time spent is greater than 50% in coordination of care (as documented) at patient's floor/unit and/or counseling patient:
--- NOTE | 2018-12-17 06:59 | XRay Report ---
XR KUB/Abdomen 1 view CLINICAL HISTORY: bowel obstruction obstruction COMPARISON STUDY: 12/15/2018 FINDINGS: Interval placement of a nasogastric tube within the mid stomach. Persistent distention of bowel loops of small bowel throughout the abdomen. No significant colonic di stention. Unchanged postoperative changes low lumbar spine. IMPRESSION: 1. Findings consistent with a distal small bowel obstructive change. 2. Nasogastric tube within the mid stomach. The above report was generated using voice recognition software. It may contain grammatical, syntax or spelling errors. Electronically signed by: Matias Ruth M.D. 12/17/2018 6:58 AM
[2018-12-17 08:04] LABS: Hematocrit (blood only) 32.3 % (37-47); Hemoglobin 10.2 g/dL (12.0-16.0); Mean Corpuscular Hemoglobin 24.5 pg (25-34); Mean Corpuscular Hgb Conc 31.6 g/dL (32-36); Mean Corpuscular Volume 77.5 fL (80-100); Mean Platelet Volume 9.8 fL (7.4-10.4); Nucleated RBC # (auto) 0.02 K/uL (0-0); Nucleated RBC % (auto) 0.2 %; Platelet Count 297 K/uL (130-400); RDW Coefficient of Variation 17.2 % (11.5-14.5); RDW Standard Deviation 48.2 fL (36.4-46.3); Red Blood Count 4.17 M/uL (4.2-5.4); White Blood Count 10.36 K/uL (4.8-10.8)
[2018-12-17] MEDS ORDERED: IOVERSOL 100ml IV PRN (08:33)
[2018-12-17] MEDS: INSULIN GLARGINE SOLOSTAR 100 UNITS/ML 3 ML PEN SC SCH (09:05)
[2018-12-17] MEDS: FAMOTIDINE 20 MG in SYRINGE 3 ML IV SCH ×2 (09:06→20:11)
[2018-12-17] MEDS: PREGABALIN 100 MG CAP PO SCH ×3 (09:07→20:10)
--- NOTE | 2018-12-17 09:10 | CT Scan Report ---
CT OF THE ABDOMEN AND PELVIS WITH CONTRAST CLINICAL HISTORY: ileus, assess transit of contrast COMPARISON STUDY: CT of the abdomen and pelvis December 09, 2018. KUB December 27, 2018. TECHNIQUE: Following IV administration of 93 mL of Optiray-320, axial images of the abdomen and pelvi s were obtained from the lung bases to the proximal femurs. Images were reviewed in the axial, sagitt al, and coronal planes. IV contrast was administered without complication. Automated exposure contro l was utilized for the study. A dose lowering technique was utilized adhering to the principles of A BELKIS. Oral contrast was administered via the nasogastric tube. CT DOSE: 1145.19 mGy.cm FINDINGS: Fatty infiltration of the liver is noted. Splenic contour is lobulated. The adrenal glands, right kidney and pancreas are unremarkable. Note is made of a 1.4 cm left renal cyst. There is a 3 m m left renal calculus. There is no hydronephrosis. No biliary or pancreatic ductal dilatation is note d status post cholecystectomy. No pneumatosis, free air or portal venous gas is noted. Tip of nasogas tric tube is within the distal body of the stomach. The small bowel is moderately dilated and fluid-f illed. Oral contrast reaches the distal jejunum. There is minimal mesenteric infiltration and ascites . The patient is status post subtotal colectomy with ileocolonic anastomosis. Apparent transition poi nt within the mid abdomen on image 308 of [id number] is noted. However, portions of the small bowel distal t o this apparent transition point are also dilated and fluid-filled. The distal colon and rectum is al so fluid-filled and dilated. A Cheng balloon within the bladder is noted. There is no lymphadenopathy . No suspicious osseous lesions are noted. There are postoperative findings within the spine. IMPRESSION: 1. Moderately dilated fluid-filled small bowel with oral contrast reaching the distal jejunum. Trace associated mesenteric infiltration and ascites. Apparent transitional point within the mid abdomen ho wever portions of small bowel distal to this site as well as the distal colon and rectum are also dil ated and fluid-filled. Overall, the appearance favors an ileus. A partial small bowel obstruction cou ld appear similar although is considered less likely. 2. Status post subtotal colectomy with ileocolonic anastomosis. Anastomosis appears patent. Electronically signed by: Usman White M.D. 12/17/2018 9:08 AM
[2018-12-17 09:42] LABS: BUN Creatinine Ratio 16.5 (10-20); Calcium 9.5 mg/dl (8.5-10.1); Creatinine Clr Calc Pharmacy 95.8 ml/min; Est GFR (African American) 100.2; Est GFR (Non-African American) 86.4; Magnesium 2.1 mg/dl (1.8-2.4)
--- NOTE | 2018-12-17 10:09 | Pharmacy Report ---
Glycemic Control Progress Note - Date of Service December 17, 2018 - Scope Glycemic Pharmacist consulted for glycemic control to write orders per [facility] inpatient glycemic control protocol. - Objective Accuchecks BSG(last 24 hours):: 12/16/18 12/16/18 12/17/18 11:46 18:22 00:27 Glucose POC Glucose 135 H 188 H 164 H 12/17/18 12/17/18 12/17/18 05:58 07:55 09:00 Glucose 201 H POC Glucose 183 H 183 H HbA1c:: Hemoglobin A1c 12.6 % (4.5-5.6) H 12/11/18 04:52 - Recent Pertinent Medications The patient is currently receiving: * Basal insulin: Lantus 20-40 units every 24 hours * Correctional Insulin: Novolog Correction per scale ACHS Goal Range: Low 120 mg/dL - High 150 mg/dL Correction Factor: 10 mg/dL/unit * Prandial insulin: Per carb ratio of 1 unit per 4 grams CHO consumed - Outpatient Anti-Diabetic Meds TRESIBA 120 UNITS HS HUMALOG 30 UNITS TID ACTOS 30 UNITS DAILY - Assessment & Plan ASSESSMENT: * See progress note from 12/20/18 for more background info, in short: * Pt receiving SQ basal bolus insulin regimen for hyperglycemia secondary to baseline DM (outpatient regimen on hold); PATIENT CURRENTLY NPO AND ON PPN FOR ILEUS. * Patient is currently receiving an average of 36 units of insulin per day * 30 units of basal insulin * 6 units of prandial/correctional insulin * BSGs ranging 126 - 188 mg/dl over the past 24hrs * Changes needed to insulin regimen: * AM Fasting BSG = 183 mg/dl. This is above goal range for patient based on inpatient targets and co-morbidities. Patient currently has a scale of insulin for Lantus with doses of 20 units (BSG less than 110 mg/dL) through 40 units (BSG greater than 180 mg/dL). Will continue this scale. Per previous suggestions, will add correctional insulin to PPN. Estimate about 4ish units per check so that comes out to about 20 units/day. Utilize that in PPN. Dextrose increased to 190 gm per bag. This will start around 1600 today. * Post-prandial BSGs are in range therefore no changes needed to CF/CR - increased slightly when PPN started. Change to q4 checks to better mimic pharmacokinetics of Novolog. * Total daily dose = ? units. * Additional notes / comments: PLAN FOR INPATIENT GLYCEMIC CONTROL: * Continuing Lantus 20-40 units SQ daily * Continuing correction factor of 10 mg/dl/unit * Continuing carb ratio of 1 unit per 4 grams CHO consumed (not utilizing right now since NPO with PPN) * Continuing goal range of Low 120 mg/dL - High 150 mg/dL RECOMMENDATIONS FOR DISCHARGE: * pending per discharge * Please note that the plan above was derived based on current level of insulin resistance and hospital stress. These recommendations are appropriate for inpatient admission only. Plan of care upon discharge will need to be reassessed to avoid potential outpatient hypo/hyperglycemia. Thank you.
--- NOTE | 2018-12-17 13:18 | Surgery Progress Note ---
Date of Service December 17, 2018 Assessment & Plan (1) Ileus: CT shows small/ large bowel dilation some transit of contrast- not to colon yet will see how it does overnight she said she was passing some flatus cont ppn Results & Data Vital Signs (Past 12 Hours) Vital Signs Temp Pulse Pulse Pulse Resp BP BP 12/17/18 12:21 36.9 C 105 H 16 12/17/18 12:05 100 H 192/83 H 12/17/18 07:31 98 H 12/17/18 07:28 36.9 C 83 20 12/17/18 04:00 37.2 C 100 H 18 179/93 H BP Pulse Ox 12/17/18 12:21 192/83 H 95 12/17/18 12:05 12/17/18 07:31 12/17/18 07:28 177/96 H 95 12/17/18 04:00 96 PG Care Time/CCT Total # of Minutes Spent Total Time Spent with Patient: Total time spent is greater than 50% in coordination of care (as documented) at patient's floor/unit and/or counseling patient:
[2018-12-17] MEDS ORDERED: CUSTOM PERIPHERAL PN IV SCH (16:00)
[2018-12-17] MEDS: ACETAMINOPHEN 1,000 MG/100 ML VIAL IV PRN (16:36)
--- NOTE | 2018-12-17 17:13 | Nephrology Progress Note ---
Date of Service December 17, 2018 Assessment & Plan (1) Disorders of fluid, electrolyte, and acid-base balance: chronic acid/base disorder > chronic metabolic acidosis; now w/ NGT and ileus; no IVF currently and none needed -serum chemistries optimized currently on PPN, NGT w/ ileus -recheck chemistries in am (2) Ankle fracture, left: s/p ORIF 12/13; w/ recurrent and unexplained falls prior to admission (3) Ileus: postoperative ileus -on NGT, bowel rest; surgery following closely Subjective seen on rounds this am 0900; feeling frustrated; on PPN now; NGT back for contrast for CT; surgery followign closely; ankle pain controlled; no sob; + flatus, no bm; still w/ damico; doing PT Review of Systems Review of Systems: All systems reviewed & are unremarkable except as noted in HPI & below Physical Exam Constitutional: well developed, well nourished, + obese and cooperative lying flat on RA Eyes: EOM intact bilaterally ENMT: Ears: no external ear abnormality Nose: no external nose abnormality Mouth: + dry oral mucous membranes Neck: no nuchal rigidity Respiratory: normal respiratory effort Auscultation: + diminished lung sounds Cardiovascular: RRR, no murmur, no edema Rate/Rhythm: regular rhythm and + tachycardic Extremities: no edema Gastrointestinal (Abdomen): Inspection/Auscultation: + abdomen distended and + hypoactive bowel sounds Percussion/Palpation: abdomen soft; abdomen nontender NGT present Musculoskeletal: Extremities: strength 5/5 throughout Skin: no rashes, warm and dry Neurologic: pizarro, fluent speech, no tremor Psychiatric: A+Ox3, euthymic affect Orientation: alert and oriented x 3 Speech: normal rate/rhythm/volume of speech Affect: + anxious affect Genitourinary: damico present Results & Data Vital Signs (Past 12 Hours) Vital Signs Temp Pulse Pulse Pulse Resp BP BP 12/17/18 14:45 36.4 C L 97 H 16 150/81 H 12/17/18 12:21 36.9 C 105 H 16 192/83 H 12/17/18 12:05 100 H 192/83 H 12/17/18 07:31 98 H 12/17/18 07:28 36.9 C 83 20 177/96 H Pulse Ox 12/17/18 14:45 95 12/17/18 12:21 95 12/17/18 12:05 12/17/18 07:31 12/17/18 07:28 95 Laboratory Results 12/17/18 07:55 12/17/18 07:[address] abd/pelvis today 1. Moderately dilated fluid-filled small bowel with oral contrast reaching the distal jejunum. Trace associated mesenteric infiltration and ascites. Apparent transitional point within the mid abdomen however portions of small bowel distal to this site as well as the distal colon and rectum are also dilated and fluid- filled. Overall, the appearance favors an ileus. A partial small bowel obstruction could appear similar although is considered less likely. 2. Status post subtotal colectomy with ileocolonic anastomosis. Anastomosis appears patent. (1) Ankle fracture, left Encounter type: initial encounter Fracture type: closed Qualified Code(s): S82.892A - Other fracture of left lower leg, initial encounter for closed fracture
[2018-12-17] MEDS ORDERED: Nursing to Pharmacy Communication ONE (18:20)
--- NOTE | 2018-12-17 19:53 | Hospitalist Progress Note ---
Date of Service December 17, 2018 Assessment & Plan (1) Diabetes mellitus, insulin dependent (IDDM), uncontrolled: Diabetes mellitus, insulin dependent (IDDM), uncontrolled (Acute) History of diabetes mellitus diagnosed in 2014 at the age of 38. 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 Patient is required insulin therapy for management, but not certain that she has type 1 disease. Blood sugar at time of admission was 343. Anion gap was 15. However, there was no ketonuria. BHB was ordered, but could not be interpreted because of hemolysis. Treated for suspected DKA with IV insulin with improvement of blood sugars and metabolic acidosis. Pharmacy consulted for glycemic management and Warehouse Shipper consulted as well. Hemoglobin A1c 12.6. Transitioned to SQ insulin. Now NPO. Dextrose added to IVF. Insulin adjustments per Pharmacy. Blood sugar this morning = 183. Ongoing monitoring/education/support. Acute kidney injury / Dehydration (Acute) Serum creatinine at time of admission was 4.67, compared to baseline of around 0.9. Acute kidney injury probably secondary to severe dehydration from chronic diarrhea and/or osmotic diuresis from hyperglycemia. Nephrology consulted. Received IV fluids with improvement. Creatinine today = 0.82. Closed left ankle fracture (Acute) Ortho consulted. ORIF performed by Dr. Gray 12/12- POD # 5. Less postop pain. Titrate analgesics. Nonweightbearing status LLE. Hypertension (Chronic) Usually takes propranolol and amlodipine. Now NPO and receiving IV metoprolol + PRN hydralazine. GERD (gastroesophageal reflux disease) (Chronic) Usually takes PPI. Now NPO and receiving IV famotidine. 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 Sodium bicarbonate supplementation per Nephrology. Bowel obstruction (Acute) Developed worsening nausea and vomiting postop. KUB suggested bowel obstruction; NGT placed. General Surgery consulted. Probable bowel obstruction secondary to adhesions, hopefully will improve with conservative management. Continue NGT, bowel rest, IV fluids, analgesics. Passing flatus. CT today. Abnormal UA Noted to have gross hematuria via Cheng. UA showed 3+ blood, nitrite, leukocyte esterase, WBC's, RBC's, epithelial cells, but no bacteria. Afebrile. May or may not have UTI. Urine culture growing gram negative bacilli- Proteus penneri and E coli, both sensitive to ceftriaxone. Continue IV ceftriaxone. DVT prophylaxis Received SQ heparin, but developed hematuria. Heparin held. SCD's ordered. Hematuria improved; heparin resumed. Anxiety / Depression Worsening anxiety, probably due to duloxetine being held. Resumed duloxetine via NGT. Disposition Discharge disposition to be determined- ? home vs skilled care / rehab. Medical follow-up with Dr. Garsia. Endocrinology follow-up with [facility]. Subjective Recheck for multiple problems. Patient seen in their room around 1050. NGT inadvertently came out last night & was replaced. No abdominal pain, nausea, vomiting. Passing flatus, but no stool. Less anxious. Review of Systems: Constitutional- no fever. Cardiac- no chest pain. Pulmonary- no cough or SOB. GI- as noted above. - Cheng cath. Otherwise, as noted above. Physical Exam Physical Exam: Constitutional- afebrile, anxious, no acute distress Eyes- sclerae anicteric ENT- NGT Respiratory- clear to auscultation, no respiratory distress Cardiovascular- cardiac rhythm regular, no murmurs or gallops appreciated, no JVD, no pretibial edema or calf tenderness Gastrointestinal- quiet BS, moderately distended, soft, nontender - Cheng cath draining clear urine Extremities- left ankle splinted; capillary refill left toes < 2 sec Skin- warm and dry, no rash Psychiatric- alert, oriented, less anxious Results & Data Vital Signs (Past 12 Hours) Vital Signs Temp Pulse Pulse Resp BP BP BP 12/17/18 18:47 36.5 C 84 18 169/87 H 12/17/18 14:45 36.4 C L 97 H 16 150/81 H 12/17/18 12:21 36.9 C 105 H 16 192/83 H 12/17/18 12:05 100 H 192/83 H Pulse Ox 12/17/18 18:47 95 12/17/18 14:45 95 12/17/18 12:21 95 12/17/18 12:05 Laboratory Results 12/17/18 07:55 12/17/18 07:55
[2018-12-17] MEDS: DULOXETINE HCL 60 MG CAP PO SCH (20:07)
[2018-12-17] MEDS: cefTRIAXone SODIUM 2,000 MG in DEXTROSE 5% 50 ML IV SCH (20:10)
[2018-12-18] MEDS: METOPROLOL TARTRATE 1 MG/ML VIAL IV SCH ×6 (04:00→23:57)
[2018-12-18] MEDS: INSULIN ASPART 100 UNITS/ML 3 ML PEN SC SCH ×6 (04:52→23:57)
[2018-12-18] MEDS: HEPARIN SOD 5,000 UNIT/0.5 ML VIAL SQ SCH ×3 (05:26→22:14)
[2018-12-18] MEDS: HYDROmorphone INJ 1 MG/ML SYRINGE IV PRN ×2 (05:27→13:02)
[2018-12-18 06:58] LABS: BUN Creatinine Ratio 18.6 (10-20); Calcium 10.1 mg/dl (8.5-10.1); Creatinine Clr Calc Pharmacy 106.1 ml/min; Est GFR (African American) 113.4; Est GFR (Non-African American) 97.8; Magnesium 2.2 mg/dl (1.8-2.4); Phosphorus 3.5 mg/dl (2.5-4.9); Potassium 3.6 mmol/L (3.5-5.1)
--- NOTE | 2018-12-18 07:53 | Surgery Progress Note ---
Date of Service December 18, 2018 Assessment & Plan (1) Ileus: CT showed cont ileus/ sbo also dilated rectum had 1200 from NG, then minimal had BM KUB to assess transit of contrast pending ask GI to see concerned she may have mechanical obstruction from adhesions near anastomosis IF req surgery would consider transfer to [place] where she had colectomy Results & Data Vital Signs (Past 12 Hours) Vital Signs Temp Pulse Pulse Pulse Resp BP BP 12/18/18 07:48 36.8 C 82 20 12/18/18 06:26 80 166/82 H 12/18/18 04:00 82 185/99 H 12/18/18 03:56 37.0 C 82 17 12/18/18 01:51 85 12/18/18 01:06 81 181/80 H 12/18/18 00:00 81 20 169/82 H 12/17/18 23:37 92 H 223/104 H 12/17/18 23:35 36.8 C 92 H 18 223/104 H 12/17/18 20:00 84 171/103 H BP Pulse Ox 12/18/18 07:48 167/96 H 96 12/18/18 06:26 12/18/18 04:00 12/18/18 03:56 185/99 H 97 12/18/18 01:51 12/18/18 01:06 12/18/18 00:00 12/17/18 23:37 12/17/18 23:35 191/113 H 96 12/17/18 20:00 PG Care Time/CCT Total # of Minutes Spent Total Time Spent with Patient: Total time spent is greater than 50% in coordination of care (as documented) at patient's floor/unit and/or counseling patient:
--- NOTE | 2018-12-18 08:36 | XRay Report ---
XR abdomen 2V w PA chest CLINICAL HISTORY: 43 years-old Female presenting with h/o sbo. TECHNIQUE: PA view of the chest and supine and upright views of the abdomen were obtained. COMPARISON: CT from 12/17/2018 and plain radiograph from 12/17/2018. FINDINGS: Nasogastric tube poorly visualized through its thoracic course though descending below the diaphragm terminating in the gastric lumen. Sidehole also within the gastric lumen. Cardiomediastinal silhouett e within normal limits. No focal opacity. No large effusion or pneumothorax. Gaseous distention of small and large bowel. No gross pneumoperitoneum. Cholecystectomy clips noted. Allowing for bowel gas and stool, no calcifications to suggest nephrolithiasis. Lumbar fusion hardware at L4-5. IMPRESSION: 1. Nasogastric tube and sidehole within the gastric lumen. 2. Persistent gaseous distention of small and large bowel. This has not improved. Diffuse distention of both small and large bowel argues against obstruction and favors ileus. Electronically signed by: Brian Pavon M.D. 12/18/2018 8:34 AM
[2018-12-18] MEDS: INSULIN GLARGINE SOLOSTAR 100 UNITS/ML 3 ML PEN SC SCH (08:57)
[2018-12-18] MEDS: PREGABALIN 100 MG CAP PO SCH ×3 (09:07→20:39)
[2018-12-18] MEDS: ACETAMINOPHEN 1,000 MG/100 ML VIAL IV PRN (09:12)
[2018-12-18] MEDS: FAMOTIDINE 20 MG in SYRINGE 3 ML IV SCH ×2 (09:12→20:40)
[2018-12-18] MEDS ORDERED: POTASSIUM CHLORIDE 20 MEQ TABCR PO ONE (12:00)
[2018-12-18] MEDS ORDERED: METHYLNALTREXONE BROMIDE 12 MG/0.6 ML VIAL SQ ONE (12:00)
--- NOTE | 2018-12-18 12:52 | Gastrointestinal Consultation ---
Date of Consultation December 18, 2018 Assessment & Plan (1) Ileus: Pt is a 43 y/o female seen for ileus vs partial SBO. She had a complicated hospitalization course including DKA, OK which are resolved, presented w a fall resulting in L ankle fracture s/p ORIF on 12/14. She had been largely immobile as now non weight bearing on LLE. She also had hx of colectomy s/p ileostomy creation and reversal in 2011. I think that the lack of mobility, use of anesthesia during surgery, narcotic use ? adhesions from prior abd surgery put her at risk for developing an ileus. She is passing flatus and had BM yesterday, BS hypoactive but present. NGT in place. - Recommend holding narcotics (still using Dilaudid). - NGT to LIS; bowel rest - Trial Relistor 12mg injection (may repeat every 2 days) - Repeat KUB tomorrow - Keep K >4, Mg >2 Supervising Physician Co-Signing Physician Notes I performed a history and physical examination of the patient, including specifically on physical exam - soft, nontender abdomen. I have discussed the patient's management with Kimberly. Please refer to the nurse practitioner's note for the documented findings and plan of care. 43 female s/p leg fracture, now bedridden and on opioids, she developed SBO Vs ? ileus. She seems to be improving and moving her bowel , bowel sounds positive. NG suctions amount is decreasing. Would continue current management, unfortunately, I don't see any role for endoscopy to help. Relistor may help but will carefully monitor the patient given ?SBO. She will need colonoscopy as OP given prior resection. History of Present Illness Reason for Consultation: Ileus vs SBO Requesting Physician: Dr. Nino Carter Attending Physician: Dr. Frances Olmos History of Present Illness Pt is a 43 y/o female, seen today for ileus vs SBO. She has had a complicated hospitalization course. Admitted after a fall, found to have L ankle fracture s/p ORIF of fracture on 12/16/18, currently non weight bearing on that leg. She also was in DKA, had OK which is now resolved. She was noted have increased abd bloating, n/v. NGT placed, output yesterday was 1200mL. CT abd/pelvis showed moderately dilated fluid filled small bowel with oral contrast reaching the distal jejunum. There is a transitional point within mid abd, however portions of small bowel distal to this site and distal colon, rectum are dilated and fluid filled. Findings favor ileus , partial SBO though less likely. Pt had hx of colectomy for Cdiff complication in 2011, s/p reversal. Pt is NPO, currently on PPN. She denies any abd pain, n/v. She is passing flatus. Last night had a "good sized BM". Denies any rectal bleeding. Allergies Allergy/AdvReac Type Severity Reaction Status Date / Time bee venom protein (honey bee) Allergy Intermediate RED, SHORT Verified 12/09/18 17:46 OF BREATH No Known Drug Allergies Allergy Unknown NKDA Verified 12/09/18 17:46 Home Medications Home Medications Medication Instructions Recorded Confirmed Type Tresiba FlexTouch U-100 120 unit SUBCUT HS 12/28/17 12/09/18 History albuterol sulfate 2 puff INHALATION Q4H PRN 12/28/17 12/09/18 History amlodipine 10 mg PO QAM 12/28/17 12/09/18 History atorvastatin 20 mg PO HS 12/28/17 12/09/18 History duloxetine [Cymbalta] 60 mg PO QPM 12/28/17 12/09/18 History esomeprazole magnesium 40 mg PO QAM 12/28/17 12/09/18 History fenofibrate 160 mg PO HS 12/28/17 12/09/18 History insulin lispro [Humalog U-100 30 unit SUBCUT TID 12/28/17 12/09/18 History Insulin] omega 2-sio-aqj-fish oil [Fish Oil] 1 tab PO BID 12/28/17 12/09/18 History pregabalin [Lyrica] 100 mg PO TID 12/28/17 12/09/18 History propranolol 120 mg PO BID 12/28/17 12/09/18 History sodium bicarbonate 3 tab PO QID 12/28/17 12/09/18 History magnesium chloride [Mag 64] 64 mg PO BID #60 tab 12/31/17 12/09/18 Rx ondansetron [Zofran ODT] 4 mg PO Q6H PRN #90 tab 01/10/18 12/09/18 Rx baclofen 10 mg PO TID PRN 12/09/18 12/09/18 History fluticasone propionate [Flonase 2 spray INTRANASAL DAILY 12/09/18 12/09/18 History Allergy Relief] furosemide [Lasix] 20 mg PO DAILY 12/09/18 12/09/18 History pioglitazone [Actos] 30 mg PO DAILY 12/09/18 12/09/18 History prochlorperazine maleate 10 mg PO TID PRN 12/09/18 12/09/18 History [Compazine] Patient History Medical History Depression (Chronic) Hx of Clostridium difficile infection (Resolved) 2012 - TREATED History of renal dialysis (Resolved) - [facility] - ARF 2/2 DKA Kidney stones (Chronic) History of endometriosis (Chronic) Anxiety (Chronic) Fracture of rib of right side (Resolved) Anemia of chronic disease (Chronic) Chronic nausea (Chronic) Suppurative hidradenitis (Chronic) Hypertension (Chronic) GERD (gastroesophageal reflux disease) (Chronic) Metabolic acidosis (Chronic) "recurrent" Diabetes mellitus type 1 (Chronic) HISTORY MULTIPLE EPISODES DKA Dyslipidemia (Chronic) Surgical History History of ileostomy (Resolved) History of reversal of ileostomy (Chronic) History of lumbar spinal fusion (Chronic) History of rotator cuff surgery (Chronic) RT Hx of tracheostomy (Resolved) R/T COMPLICATIONS AFTER ILEOSTOMY REVERSAL SURGERY IN 2011; HAS SINCE BEEN REVERSED 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" Status post cholecystectomy (Chronic) "cholelithiasis" Family History Mother Diabetes Social History Preferred Language: Occitan Communication Ability: Effective Administrative Medical Director Required: No Beliefs That Will Affect Care: None marital status: Current Living Situation: Family Feels Safe at Home: Yes Smoking Status: Current every day smoker Tobacco Type: cigarettes ; Cigarettes Per Day: 5 ; Second Hand Exposure: No ; Hx Alcohol Use: Yes Alcohol Intake Frequency: Holidays/Special Occasions Hx Substance Use: No Review of Systems Review of Systems: All systems reviewed & are unremarkable except as noted in HPI & below Physical Exam Constitutional: WD/WN, vitals as above well groomed, cooperative and comfortable Eyes: PERRL, conjunctivae normal, anicteric sclerae ENMT: external ear and nose normal, oropharynx normal NGT in place draining bilious fluid Respiratory: normal respiratory effort, lungs clear to auscultation Cardiovascular: RRR, no murmur, no edema Gastrointestinal (Abdomen): Inspection/Auscultation: + hypoactive bowel sounds Percussion/Palpation: abdomen soft; abdomen nontender Skin: no rashes, warm and dry no jaundice Neurologic: Motor/Sensory: no asterixis Psychiatric: A+Ox3, euthymic affect Results & Data Vital Signs (Past 12 Hours) Vital Signs Temp Pulse Pulse Pulse Resp BP BP 12/18/18 11:23 36.6 C 85 20 156/94 H 12/18/18 09:08 99 H 167/96 H 12/18/18 08:00 82 12/18/18 07:48 36.8 C 82 20 167/96 H 12/18/18 06:26 80 166/82 H 12/18/18 04:00 82 185/99 H 12/18/18 03:56 37.0 C 82 17 185/99 H 12/18/18 01:51 85 12/18/18 01:06 81 181/80 H Pulse Ox 12/18/18 11:23 95 12/18/18 09:08 12/18/18 08:00 12/18/18 07:48 96 12/18/18 06:26 12/18/18 04:00 12/18/18 03:56 97 12/18/18 01:51 12/18/18 01:06
--- NOTE | 2018-12-18 14:24 | XRay Report ---
XR ankle RT min 3V routine CLINICAL HISTORY: ankle pain pain COMPARISON: None. DISCUSSION: Small avulsion tip medial malleolus. Old avulsion from the tip of the distal fibula. Fragment is well-corticated. Ankle mortise is aligned anatomically. Generalized soft tissue edema. Heel spur. Subtalar joint is intact. IMPRESSION: 1. Small avulsion tip medial malleolus. 2. Old avulsion distal fibula. 3. Soft tissue edema. 4. Heel spur. The above report was generated using voice recognition software. It may contain grammatical, syntax or spelling errors. Electronically signed by: Matias Ruth M.D. 12/18/2018 2:23 PM
[2018-12-18] MEDS ORDERED: CUSTOM PERIPHERAL PN IV SCH (16:00)
[2018-12-18] MEDS: KETOROLAC TROMETHAMINE 15 MG/ML VIAL IV PRN (19:44)
[2018-12-18] MEDS: DULOXETINE HCL 60 MG CAP PO SCH (20:32)
[2018-12-18] MEDS: cefTRIAXone SODIUM 2,000 MG in DEXTROSE 5% 50 ML IV SCH (20:40)
--- NOTE | 2018-12-18 21:58 | Hospitalist Progress Note ---
Date of Service December 18, 2018 Assessment & Plan (1) Diabetes mellitus, insulin dependent (IDDM), uncontrolled: Diabetes mellitus, insulin dependent (IDDM), uncontrolled (Acute) History of diabetes mellitus diagnosed in 2014 at the age of 38. 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 Patient is required insulin therapy for management, but not certain that she has type 1 disease. Blood sugar at time of admission was 343. Anion gap was 15. However, there was no ketonuria. BHB was ordered, but could not be interpreted because of hemolysis. Treated for suspected DKA with IV insulin with improvement of blood sugars and metabolic acidosis. Pharmacy consulted for glycemic management and [place] Operator consulted as well. Hemoglobin A1c 12.6. Transitioned to SQ insulin. Now NPO. Dextrose added to IVF. Insulin adjustments per Pharmacy. Blood sugar this morning = 202. Ongoing monitoring/education/support. Acute kidney injury / Dehydration (Acute) Serum creatinine at time of admission was 4.67, compared to baseline of around 0.9. Acute kidney injury probably secondary to severe dehydration from chronic diarrhea and/or osmotic diuresis from hyperglycemia. Nephrology consulted. Received IV fluids with improvement. Creatinine today = 0.74. Closed left ankle fracture (Acute) Ortho consulted. ORIF performed by Dr. Gray 12/12- POD # 6. Less postop pain. Titrate analgesics. Nonweightbearing status LLE. Hypertension (Chronic) Usually takes propranolol and amlodipine. Now NPO and receiving IV metoprolol + PRN hydralazine. GERD (gastroesophageal reflux disease) (Chronic) Usually takes PPI. Now NPO and receiving IV famotidine. 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 Sodium bicarbonate supplementation per Nephrology. Bowel obstruction (Acute) Developed worsening nausea and vomiting postop. KUB suggested bowel obstruction; NGT placed. General Surgery consulted. Bowel obstruction secondary to adhesions vs ileus. Continue NGT, bowel rest, IV fluids, analgesics. Passing flatus and some stool. Minimize use of narcotic analgesics. Abnormal UA Noted to have gross hematuria via Cheng. UA showed 3+ blood, nitrite, leukocyte esterase, WBC's, RBC's, epithelial cells, but no bacteria. Afebrile. Urine culture growing gram negative bacilli- Proteus penneri and E coli, both sensitive to ceftriaxone. Continue IV ceftriaxone. Anxiety / Depression Resumed duloxetine via NGT. Right ankle pain Check x-rays. DVT prophylaxis Received SQ heparin, but developed hematuria. Heparin held. SCD's ordered. Hematuria improved; heparin resumed. Disposition Discharge disposition to be determined- ? home vs skilled care / rehab. Medical follow-up with Dr. Garsia. Endocrinology follow-up with [facility]. Subjective Recheck for multiple problems. Patient seen in their room around 1230. Feels somewhat better. No abdominal pain, nausea, vomiting. Passing flatus and some stool. Still having fairly severe left ankle pain. Also has some right ankle pain which she attributes to fall prior to admission. Review of Systems: Constitutional- no fever. Cardiac- no chest pain. Pulmonary- no cough or SOB. GI- as noted above. - Cheng cath. Otherwise, as noted above. Physical Exam Physical Exam: Constitutional- afebrile, anxious, no acute distress Eyes- sclerae anicteric ENT- NGT Respiratory- clear to auscultation, no respiratory distress Cardiovascular- cardiac rhythm regular, no murmurs or gallops appreciated, no JVD, no pretibial edema or calf tenderness Gastrointestinal- quiet BS, moderately distended, soft, nontender - Cheng cath draining clear urine Extremities- left ankle splinted; capillary refill left toes < 2 sec; some swelling of right ankle, pain with flexion, no deformity Skin- warm and dry, no rash Psychiatric- alert, oriented, less anxious Results & Data Vital Signs (Past 12 Hours) Vital Signs Temp Pulse Pulse Pulse Resp BP BP 12/18/18 20:32 89 158/97 H 12/18/18 20:30 89 158/97 H 12/18/18 19:21 36.4 C L 85 20 123/88 12/18/18 17:34 90 157/90 H 12/18/18 17:33 90 12/18/18 15:20 36.7 C 71 18 171/77 H 12/18/18 12:55 103 H 156/94 H 12/18/18 11:23 36.6 C 85 20 BP Pulse Ox 12/18/18 20:32 12/18/18 20:30 12/18/18 19:21 95 12/18/18 17:34 12/18/18 17:33 157/90 H 94 12/18/18 15:20 95 12/18/18 12:55 12/18/18 11:23 156/94 H 95 Laboratory Results 12/17/18 07:55 12/18/18 05:48
[2018-12-19] MEDS: METOPROLOL TARTRATE 1 MG/ML VIAL IV SCH ×4 (03:23→16:30)
[2018-12-19] MEDS: INSULIN ASPART 100 UNITS/ML 3 ML PEN SC SCH ×5 (03:23→20:09)
[2018-12-19] MEDS: HEPARIN SOD 5,000 UNIT/0.5 ML VIAL SQ SCH ×3 (05:49→20:12)
[2018-12-19] MEDS: ACETAMINOPHEN 1,000 MG/100 ML VIAL IV PRN ×2 (05:54→16:28)
[2018-12-19 06:45] LABS: BUN Creatinine Ratio 20.6 (10-20); Calcium 9.9 mg/dl (8.5-10.1); Creatinine Clr Calc Pharmacy 98.6 ml/min; Est GFR (African American) 104.8; Est GFR (Non-African American) 90.4; Magnesium 2.1 mg/dl (1.8-2.4); Potassium 4.1 mmol/L (3.5-5.1)
[2018-12-19 06:46] LABS: Phosphorus 3.8 mg/dl (2.5-4.9)
--- NOTE | 2018-12-19 07:04 | Surgery Progress Note ---
Date of Service December 19, 2018 Assessment & Plan (1) Ileus: still with significant NG output- 900 last pm GI added Relistor- ??signed off some bowel movement- decreased bowel sounds on Ppn could be partial bowel obstruction with cont high NG output try clamping NG again IF pt fails all of this- transfer to [place] Results & Data Vital Signs (Past 12 Hours) Vital Signs Temp Pulse Pulse Pulse Resp BP BP 12/19/18 04:10 36.7 C 73 18 176/102 H 12/19/18 03:23 83 168/99 H 12/18/18 23:57 85 183/94 H 12/18/18 23:11 37.2 C 80 18 180/77 H 12/18/18 20:32 89 158/97 H 12/18/18 20:30 89 158/97 H 12/18/18 19:21 36.4 C L 85 20 123/88 Pulse Ox 12/19/18 04:10 96 12/19/18 03:23 12/18/18 23:57 12/18/18 23:11 93 12/18/18 20:32 12/18/18 20:30 12/18/18 19:21 95 PG Care Time/CCT Total # of Minutes Spent Total Time Spent with Patient: Total time spent is greater than 50% in coordination of care (as documented) at patient's floor/unit and/or counseling patient:
[2018-12-19] MEDS: KETOROLAC TROMETHAMINE 15 MG/ML VIAL IV PRN ×2 (07:42→18:38)
[2018-12-19] MEDS: PREGABALIN 100 MG CAP PO SCH ×3 (07:53→20:13)
--- NOTE | 2018-12-19 08:25 | XRay Report ---
KUB CLINICAL HISTORY: Follow-up ileus. FINDINGS: 2 AP supine abdominal radiographs are compared to study dated 12/18/2018 and correlated with abdominal CT dated 12/17/2018. An enteric tube projects over the stomach. Cholecystectomy clips are no lenny in the right upper quadrant. There is persistent dilatation of the small bowel loops which measur e up to 4 cm. No evidence of intraperitoneal free air is seen on these supine images. There are no ab normal abdominal calcifications. Excreted contrast fills the bladder. The bony structures appear inta ct. Fusion hardware is again seen in the lower lumbar spine. IMPRESSION: Unchanged bowel gas pattern with persistent distention of the small bowel loops. Electronically signed by: Lev López M.D. 12/19/2018 8:23 AM
[2018-12-19] MEDS: FAMOTIDINE 20 MG in SYRINGE 3 ML IV SCH ×2 (08:29→20:13)
[2018-12-19] MEDS: INSULIN GLARGINE SOLOSTAR 100 UNITS/ML 3 ML PEN SC SCH (08:37)
[2018-12-19] MEDS: METOCLOPRAMIDE HCL INJ 5 MG/ML 2 ML VIAL IV SCH ×3 (12:20→21:34)
[2018-12-19] MEDS: HYDROmorphone INJ 1 MG/ML SYRINGE IV PRN ×2 (12:23→20:02)
[2018-12-19] MEDS ORDERED: CUSTOM PERIPHERAL PN IV SCH (16:00)
--- NOTE | 2018-12-19 19:02 | Hospitalist Progress Note ---
Date of Service December 19, 2018 Assessment & Plan (1) Diabetes mellitus, insulin dependent (IDDM), uncontrolled: Diabetes mellitus, insulin dependent (IDDM), uncontrolled (Acute) Per Dr. Patel notes: History of diabetes mellitus diagnosed in 2014 at the age of 38. 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 Patient is required insulin therapy for management, but not certain that she has type 1 disease. Blood sugar at time of admission was 343. Anion gap was 15. However, there was no ketonuria. BHB was ordered, but could not be interpreted because of hemolysis. Treated for suspected DKA with IV insulin with improvement of blood sugars and metabolic acidosis. Pharmacy consulted for glycemic management and Power Saw Operator consulted as well. Hemoglobin A1c 12.6. Transitioned to SQ insulin. Blood glucose within acceptable range Continue insulin Lantus and insulin sliding scale Acute kidney injury / Dehydration (Acute) IV fluids given resolved Closed left ankle fracture (Acute) Ortho consulted. ORIF performed by Dr. Gray 12/12- POD # 7 Nonweightbearing status LLE. Hypertension (Chronic) Usually takes propranolol and amlodipine. Resume p.o. propranolol, Continue amlodipine Continue to monitor GERD (gastroesophageal reflux disease) (Chronic) Usually takes PPI. Now NPO and receiving IV famotidine. 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 Given bicarbonate supplement, resolved Bowel obstruction (Acute) Developed worsening nausea and vomiting postop. KUB suggested bowel obstruction; NGT placed. General Surgery consulted. Bowel obstruction secondary to adhesions vs ileus. --Given Relistor December 18, 2018 Positive bowel movement, flatus but still with abdominal distention, significant NG tube output Continue NGT, bowel rest, IV fluids, analgesics. --If without improvement, may need to be transferred to [facility] as per general surgery Appreciate recommendations Urinary tract infection Noted to have gross hematuria via Cheng. UA showed 3+ blood, nitrite, leukocyte esterase, WBC's, RBC's, epithelial cells, but no bacteria. Afebrile. Urine culture growing gram negative bacilli- Proteus penneri and E coli, both sensitive to ceftriaxone. Continue IV ceftriaxone. Anxiety / Depression Resumed duloxetine via NGT. Right ankle pain Check x-rays. IMPRESSION: 1. Small avulsion tip medial malleolus. 2. Old avulsion distal fibula. 3. Soft tissue edema. 4. Heel spur. --We will discuss with Ortho DVT prophylaxis Received SQ heparin, but developed hematuria. Heparin held. SCD's ordered. Hematuria improved; heparin resumed. Disposition Discharge disposition to be determined- ? home vs skilled care / rehab. Medical follow-up with Dr. Garsia. Endocrinology follow-up with [facility]. Subjective Follow-up for partial small bowel obstruction versus ileus Seen resting in bed, comfortable, not in distress, NG tube in place Denies abdominal pain, has occasional nausea, positive bowel movement yesterday, nonbloody Denies chest pain, shortness of breath, headache, palpitations, dizziness Has some left foot pain relieved by analgesics No other symptoms Review of Systems Review of Systems: All systems reviewed & are unremarkable except as noted in HPI & below Physical Exam Physical Exam: General- oriented x 3, not in distress, speaks in sentences with no effort or accessory muscle use Eyes- anicteric Neck- no JVD NG tube in place-scant bilious output Lungs- clear breath sounds bilaterally, no rales/wheezes Heart- normal rate, regular rhythm; no murmurs [id number] sounds, minimally distended, soft, nontender Extremities-right lower extremity: No pretibial edema, no calf tenderness Lower extremity: Heavy dressing in place Neuro- alert, oriented x 3; no gross focal neurologic deficits Skin- warm & dry Results & Data Vital Signs (Past 12 Hours) Vital Signs Temp Pulse Pulse Pulse Resp BP BP 12/19/18 16:30 70 146/94 H 12/19/18 15:26 37 C 70 70 18 146/94 H 12/19/18 12:24 98 H 161/98 H 12/19/18 11:32 36.6 C 98 H 12 161/98 H 12/19/18 08:00 36.7 C 94 H 12 185/102 H Pulse Ox 12/19/18 16:30 12/19/18 15:26 95 12/19/18 12:24 12/19/18 11:32 96 12/19/18 08:00 98 Laboratory Results Laboratory Results - last 24 hr 12/18/18 12/18/18 12/19/18 20:34 23:51 03:18 Sodium Potassium Chloride Carbon Dioxide Anion Gap BUN Creatinine Est Cr Clr Drug Dosing Est GFR ( Amer) Est GFR (Non-Af Amer) BUN/Creatinine Ratio Glucose POC Glucose 138 H 131 H 135 H Calcium Phosphorus Magnesium Triglycerides 12/19/18 12/19/18 12/19/18 05:56 07:54 11:36 Sodium 138 Potassium 4.1 Chloride 102 Carbon Dioxide 29 Anion Gap 7.0 BUN 16 Creatinine 0.79 Est Cr Clr Drug Dosing 98.6 Est GFR ( Amer) 104.8 Est GFR (Non-Af Amer) 90.4 BUN/Creatinine Ratio 20.6 H Glucose 176 H POC Glucose 203 H 134 H Calcium 9.9 Phosphorus 3.8 Magnesium 2.1 Triglycerides 432 H 12/19/18 12/19/18 16:00 18:01 Sodium Potassium Chloride Carbon Dioxide Anion Gap BUN Creatinine Est Cr Clr Drug Dosing Est GFR ( Amer) Est GFR (Non-Af Amer) BUN/Creatinine Ratio Glucose POC Glucose 139 H 119 H Calcium Phosphorus Magnesium Triglycerides
[2018-12-19] MEDS ORDERED: Nursing to Pharmacy Communication ONE (19:52)
[2018-12-19] MEDS: DULOXETINE HCL 60 MG CAP PO SCH (20:08)
[2018-12-19] MEDS: PROPRANOLOL HCL 60 MG LA CAP PO SCH (20:17)
[2018-12-20] MEDS: INSULIN ASPART 100 UNITS/ML 3 ML PEN SC SCH ×6 (00:04→20:57)
[2018-12-20] MEDS: METOCLOPRAMIDE HCL INJ 5 MG/ML 2 ML VIAL IV SCH ×4 (03:50→21:14)
[2018-12-20] MEDS: KETOROLAC TROMETHAMINE 15 MG/ML VIAL IV PRN ×2 (05:49→14:19)
[2018-12-20] MEDS: HEPARIN SOD 5,000 UNIT/0.5 ML VIAL SQ SCH ×3 (06:14→21:14)
--- NOTE | 2018-12-20 06:16 | Surgery Progress Note ---
Date of Service December 20, 2018 Assessment & Plan (1) Ileus: ++flatus, + bm NG had high outputlast night , then min likely some gastric emptying difficulty w/ DM will try NG removal and some full liquids- Cont ppn If she fails- consider transfer to [place] Results & Data Vital Signs (Past 12 Hours) Vital Signs Temp Pulse Pulse Resp BP Pulse Ox 12/20/18 05:01 37 C 99 H 18 141/83 H 95 12/20/18 00:46 89 12/19/18 23:26 36.9 C 80 18 160/96 H 95 12/19/18 19:35 36.3 C L 80 18 120/80 94 PG Care Time/CCT Total # of Minutes Spent Total Time Spent with Patient: Total time spent is greater than 50% in coordination of care (as documented) at patient's floor/unit and/or counseling patient:
[2018-12-20 06:56] LABS: BUN Creatinine Ratio 20.5 (10-20); Calcium 10.4 mg/dl (8.5-10.1); Creatinine Clr Calc Pharmacy 71.4 ml/min; Est GFR (African American) 71.8; Est GFR (Non-African American) 61.9; Magnesium 2.1 mg/dl (1.8-2.4); Potassium 3.9 mmol/L (3.5-5.1)
[2018-12-20] MEDS: INSULIN GLARGINE SOLOSTAR 100 UNITS/ML 3 ML PEN SC SCH (08:07)
[2018-12-20] MEDS: PROPRANOLOL HCL 60 MG LA CAP PO SCH ×2 (08:08→20:48)
[2018-12-20] MEDS: FAMOTIDINE 20 MG in SYRINGE 3 ML IV SCH ×2 (08:10→21:13)
[2018-12-20] MEDS: PREGABALIN 100 MG CAP PO SCH ×3 (08:10→20:47)
[2018-12-20] MEDS: HYDROmorphone INJ 1 MG/ML SYRINGE IV PRN ×2 (09:19→17:52)
[2018-12-20] MEDS ORDERED: METHYLNALTREXONE BROMIDE 12 MG/0.6 ML VIAL SQ SCH (09:45)
--- NOTE | 2018-12-20 12:06 | Hospitalist Progress Note ---
Date of Service December 20, 2018 Assessment & Plan (1) Diabetes mellitus, insulin dependent (IDDM), uncontrolled: Diabetes mellitus, insulin dependent (IDDM), uncontrolled (Acute) Per Dr. Patel notes: History of diabetes mellitus diagnosed in 2014 at the age of 38. 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 Patient is required insulin therapy for management, but not certain that she has type 1 disease. Blood sugar at time of admission was 343. Anion gap was 15. However, there was no ketonuria. BHB was ordered, but could not be interpreted because of hemolysis. Treated for suspected DKA with IV insulin with improvement of blood sugars and metabolic acidosis. Pharmacy consulted for glycemic management and Smooth Plater consulted as well. Hemoglobin A1c 12.6. Transitioned to SQ insulin. Blood glucose within acceptable range Continue insulin Lantus and insulin sliding scale Acute kidney injury / Dehydration (Acute) IV fluids given resolved Closed left ankle fracture (Acute) Ortho consulted. ORIF performed by Dr. Gray /- POD # 8 Nonweightbearing status LLE. Right ankle pain X-ray: IMPRESSION: 1. Small avulsion tip medial malleolus. 2. Old avulsion distal fibula. 3. Soft tissue edema. 4. Heel spur. --Requested reevaluation by orthopedic service Bowel obstruction (Acute) Developed worsening nausea and vomiting postop. KUB suggested bowel obstruction; NGT placed. General Surgery consulted. Bowel obstruction secondary to adhesions vs ileus. --Positive BMs, flatus --NG tube withdrawn December 20, 2018 Full liquid diet ordered Relistor second dose ordered Continue to monitor Hypertension (Chronic) Usually takes propranolol and amlodipine. Resume p.o. propranolol, Continue amlodipine Monitor blood pressure GERD (gastroesophageal reflux disease) (Chronic) Usually takes PPI. Receiving IV famotidine. 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 Given bicarbonate supplement, resolved Urinary tract infection Noted to have gross hematuria via Cheng. UA showed 3+ blood, nitrite, leukocyte esterase, WBC's, RBC's, epithelial cells, but no bacteria. Afebrile. Urine culture growing gram negative bacilli- Proteus penneri and E coli, both sensitive to ceftriaxone. Received 7 days of IV ceftriaxone Anxiety / Depression Resumed duloxetine via NGT. DVT prophylaxis Received SQ heparin, but developed hematuria. Heparin held. SCD's ordered. Hematuria improved; heparin resumed. Disposition Discharge disposition to be determined- ? home vs skilled care / rehab. Medical follow-up with Dr. Garsia. Endocrinology follow-up with [facility]. Subjective Follow-up for partial small bowel obstruction Seen resting in bedside chair, comfortable, not in distress, in good spirits States she feels improved today compared to yesterday NG tube has been withdrawn, tolerating full diet well No nausea or abdominal pain Has tolerable pain on the left lower extremity, also pain in the right ankle especially with movement Denies chest pain, shortness of breath, headache, dizziness, palpitations No other symptoms Review of Systems Review of Systems: All systems reviewed & are unremarkable except as noted in HPI & below Physical Exam Physical Exam: General- oriented x 3, not in distress, speaks in sentences with no effort or accessory muscle use Eyes- anicteric Neck- no JVD Lungs- clear breath sounds bilaterally, no rales/wheezes Heart- normal rate, regular rhythm; no murmurs Abdomen- normal bowel sounds, less distended, soft, nontender Extremities-left lower extremity: Heavy dressing in place, trace edema of the toes Right lower extremity: Positive pedal edema, but no erythema or warmth, full range of motion of the ankle but with pain Neuro- alert, oriented x 3; no gross focal neurologic deficits Skin- warm & dry Results & Data Vital Signs (Past 12 Hours) Vital Signs Temp Pulse Pulse Pulse Resp BP BP 12/20/18 11:20 36.8 C 86 18 126/85 12/20/18 07:17 36.9 C 97 H 18 164/89 H 12/20/18 05:01 37 C 99 H 18 141/83 H 12/20/18 00:46 89 Pulse Ox 12/20/18 11:20 96 12/20/18 07:17 97 12/20/18 05:01 95 12/20/18 00:46 Laboratory Results Laboratory Results - last 24 hr 12/19/18 12/19/18 12/19/18 16:00 18:01 20:07 Sodium Potassium Chloride Carbon Dioxide Anion Gap BUN Creatinine Est Cr Clr Drug Dosing Est GFR ( Amer) Est GFR (Non-Af Amer) BUN/Creatinine Ratio Glucose POC Glucose 139 H 119 H 138 H Calcium Phosphorus Magnesium 12/19/18 12/20/18 12/20/18 23:51 03:48 06:03 Sodium 136 Potassium 3.9 Chloride 97 L Carbon Dioxide 31 Anion Gap 9.0 BUN 22 H Creatinine 1.08 Est Cr Clr Drug Dosing 71.4 Est GFR ( Amer) 71.8 Est GFR (Non-Af Amer) 61.9 BUN/Creatinine Ratio 20.5 H Glucose 154 H POC Glucose 128 H 132 H Calcium 10.4 H Phosphorus 4.0 Magnesium 2.1 12/20/18 12/20/18 07:29 11:30 Sodium Potassium Chloride Carbon Dioxide Anion Gap BUN Creatinine Est Cr Clr Drug Dosing Est GFR ( Amer) Est GFR (Non-Af Amer) BUN/Creatinine Ratio Glucose POC Glucose 158 H 144 H Calcium Phosphorus Magnesium
[2018-12-20] MEDS: ACETAMINOPHEN 1,000 MG/100 ML VIAL IV PRN (15:51)
[2018-12-20] MEDS ORDERED: CUSTOM PERIPHERAL PN IV SCH (16:00)
--- NOTE | 2018-12-20 18:44 | Communication Note ---
Date of Service: December 20, 2018 Asked to reevaluate patient today for right ankle pain. Patient has undergone an ORIF of her left fibular fracture and a syndesmotic screw was placed. The patient states that when she initially fell, that she did have increased pain in her right ankle as well as her left. She states that over time though she had much less pain in the right ankle. However since she is been here, she continues to have right ankle pain. Dr. leton Joyce has asked us to reevaluate her right ankle. On exam, the patient is sitting up in her chair. Splint is on the left lower extremities and intact. Toes are mobile. Capillary refill is less than 2 seconds. Examining her right ankle, she has some mild swelling over the dorsum of the foot. She also has some mild swelling over the medial malleolus compared to the lateral side. Currently she has good range of motion of her right ankle. She states she does have some discomfort with range of motion but is not excruciating. She has mild to moderate pain on palpation of the medial malleolus. She has no erythema and no ecchymosis noted. No ligament laxity noted at this time. Sensation is intact and capillary refill is less than 2 seconds. X-rays reviewed with Dr. Best. It appears that she has a new a avulsion fracture of the medial malleolus. This is a very small fragment noted. Plans will be to order a high tide walking boot from orthotics. She can be weightbearing as tolerated with the boot on and continue nonweightbearing status on the left lower extremity. She will be able to follow-up with Dr. Gray in the office for both ankles in the near future.
[2018-12-20] MEDS ORDERED: INSULIN GLARGINE SOLOSTAR 100 UNITS/ML 3 ML PEN SC SCH (21:00)
[2018-12-20] MEDS: DULOXETINE HCL 60 MG CAP PO SCH (21:13)
[2018-12-21] MEDS: HYDROmorphone INJ 1 MG/ML SYRINGE IV PRN ×4 (00:23→20:56)
[2018-12-21] MEDS: INSULIN ASPART 100 UNITS/ML 3 ML PEN SC SCH ×6 (00:25→20:54)
[2018-12-21] MEDS: METOCLOPRAMIDE HCL INJ 5 MG/ML 2 ML VIAL IV SCH ×4 (04:17→21:43)
[2018-12-21] MEDS: KETOROLAC TROMETHAMINE 15 MG/ML VIAL IV PRN ×2 (05:15→17:48)
[2018-12-21] MEDS: HEPARIN SOD 5,000 UNIT/0.5 ML VIAL SQ SCH ×3 (05:18→20:55)
--- NOTE | 2018-12-21 07:21 | Surgery Progress Note ---
Date of Service December 21, 2018 Assessment & Plan (1) Ileus: improving minal full liquids ++ bm, flatus on Reglan and Relistor adv to low residue, stop ppn after this bag complete Dr Santiago covering over weekend Results & Data Vital Signs (Past 12 Hours) Vital Signs Temp Pulse Pulse Pulse Resp BP BP 12/21/18 03:47 36.7 C 74 16 126/76 12/21/18 00:00 73 12/20/18 23:42 36.7 C 73 16 132/79 Pulse Ox 12/21/18 03:47 97 12/21/18 00:00 12/20/18 23:42 93 PG Care Time/CCT Total # of Minutes Spent Total Time Spent with Patient: Total time spent is greater than 50% in coordination of care (as documented) at patient's floor/unit and/or counseling patient:
[2018-12-21] MEDS: PROPRANOLOL HCL 60 MG LA CAP PO SCH ×2 (07:38→20:55)
[2018-12-21] MEDS: PREGABALIN 100 MG CAP PO SCH ×3 (07:38→20:55)
[2018-12-21 07:48] LABS: BUN Creatinine Ratio 22.6 (10-20); Calcium 10.1 mg/dl (8.5-10.1); Creatinine Clr Calc Pharmacy 64.2 ml/min; Est GFR (African American) 63.2; Est GFR (Non-African American) 54.5; Magnesium 2.2 mg/dl (1.8-2.4); Potassium 4.4 mmol/L (3.5-5.1)
[2018-12-21 07:56] LABS: Phosphorus 4.7 mg/dl (2.5-4.9)
[2018-12-21] MEDS: INSULIN GLARGINE SOLOSTAR 100 UNITS/ML 3 ML PEN SC SCH (08:12)
[2018-12-21] MEDS: FAMOTIDINE 20 MG in SYRINGE 3 ML IV SCH ×2 (08:15→21:15)
--- NOTE | 2018-12-21 11:04 | Pharmacy Report ---
Pharmacy Glycemic Short Note 2 - Date of Service December 21, 2018 - Glycemic Short BSG Results (Last 24 hours): 12/20/18 12/20/18 12/20/18 11:30 17:03 20:49 Glucose POC Glucose 144 H 89 128 H 12/21/18 12/21/18 12/21/18 00:11 04:06 06:52 Glucose 153 H POC Glucose 105 H 129 H 12/21/18 07:51 Glucose POC Glucose 159 H OUTPATIENT ANTIDIABETIC REGIMEN: * Tresiba 120 units SQ qHS * Humalog 30 units SQ TID * Actos 30 mg PO daily * HbA1c: 12.6% 12/11/18 ASSESSMENT: * PPN to be stopped today after current bag finishes at 1559 * Patient received 89 units of insulin yesterday (30 of which were included in the TPN) * BSGs ranged 89-158 yesterday PLAN FOR INPATIENT GLYCEMIC CONTROL: * Hold outpatient oral diabetes medications and Tresiba * Basal insulin: * Continue current Lantus scale (<110: 20 units, 110-180: 30 units, > 180: 40 units) * Will follow BGs closely given diet change (TPN -> low fiber diet) * Bolus insulin: no change * NovoLog per scale ACHS or Q6hrs while NPO * Goal Range: Low 120 mg/dL - High 150 mg/dL (elevated goal range secondary to repeated lows and elevated A1c) * Correction Factor: 10 mg/dL/unit * Nutritional / Prandial insulin per carb ratio of 1 unit per 4 grams CHO consumed * BGs all in range yesterday - no change at this time * Please note that the plan above was derived based on current level of insulin resistance and hospital stress. These recommendations are appropriate for inpatient admission only. Plan of care upon discharge will need to be reassessed to avoid potential outpatient hypo/hyperglycemia.
--- NOTE | 2018-12-21 16:00 | Nephrology Progress Note ---
Date of Service December 21, 2018 Assessment & Plan (1) Disorders of fluid, electrolyte, and acid-base balance: chronic acid/base disorder > chronic metabolic acidosis; now w/ NGT out and ileus improving >no indication for sodium bicarb tabs at this time but watch for need >> would resume at half dose ONLY if taking po reliably and labs indicate need; if no need before d/c, recommend resume at half dose at d/c irregardless and I will adjust dose/ follow labs at d/c >>>> D/C RECS (for when pt appropriate for d/c) >> check bmp pls after d/c q mon/thurs x 3 wks; f/u w/ me next available; sodium bicarb dose as above -serum chemistries optimized currently on PPN; however a bit volume depleted as below -recheck chemistries in am (2) Ankle fracture, left: s/p ORIF 12/13; w/ recurrent and unexplained falls prior to admission; now also w/ bone chip R foot needing ortho f/u (3) Ileus: postoperative ileus -starting diet today; surgery following closely (4) Acute kidney injury: recurrent; not able to balance I/O I suspect; suspect prerenal despite PPN baseline creatinine 0.7-0.8 >will give NS at 50 Present on Admission?: Yes Subjective + flatus, + bm; took breakfast and lunch and so far feels ok; damico out; needs ortho boot for R foot d/t bone chip; no sob, no N/v, no edema or palpitations Review of Systems Review of Systems: All systems reviewed & are unremarkable except as noted in HPI & below Physical Exam Constitutional: well developed, well nourished, + obese and cooperative sitting up in chair on ra Eyes: EOM intact bilaterally ENMT: Ears: no external ear abnormality Nose: no external nose abnormality Mouth: + dry oral mucous membranes Neck: no nuchal rigidity Respiratory: normal respiratory effort Auscultation: + diminished lung sounds Cardiovascular: RRR, no murmur, no edema Gastrointestinal (Abdomen): Inspection/Auscultation: + abdomen distended and normal bowel sounds Percussion/Palpation: abdomen soft; abdomen nontender Musculoskeletal: Extremities: strength 5/5 throughout Skin: no rashes, warm and dry Neurologic: pizarro, fluent speech; L foot/ankle in cast Psychiatric: A+Ox3, euthymic affect Orientation: alert and oriented x 3 Speech: normal rate/rhythm/volume of speech Affect: + anxious affect Results & Data Vital Signs (Past 12 Hours) Vital Signs Temp Pulse Resp BP Pulse Ox 12/21/18 11:56 37.1 C 79 17 128/79 96 12/21/18 08:00 36.7 C 68 20 134/84 95 Laboratory Results 12/17/18 07:55 12/21/18 06:52 (1) Ankle fracture, left Encounter type: initial encounter Fracture type: closed Qualified Code(s): S 82.892A - Other fracture of left lower leg, initial encounter for closed fracture
[2018-12-21] MEDS: SODIUM CHLORIDE 0.9% 1000ML 1,000 ML IV SCH (16:54)
--- NOTE | 2018-12-21 18:30 | Hospitalist Progress Note ---
Date of Service December 21, 2018 Assessment & Plan (1) Diabetes mellitus, insulin dependent (IDDM), uncontrolled: Diabetes mellitus, insulin dependent (IDDM), uncontrolled (Acute) Per Dr. Patel notes: History of diabetes mellitus diagnosed in 2014 at the age of 38. 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 Patient is required insulin therapy for management, but not certain that she has type 1 disease. Blood sugar at time of admission was 343. Anion gap was 15. However, there was no ketonuria. BHB was ordered, but could not be interpreted because of hemolysis. Treated for suspected DKA with IV insulin with improvement of blood sugars and metabolic acidosis. Pharmacy consulted for glycemic management and Casket Trimmer consulted as well. Hemoglobin A1c 12.6. Transitioned to SQ insulin. Blood glucose within acceptable range Continue insulin Lantus and insulin sliding scale Acute kidney injury / Dehydration (Acute) IV fluids given resolved Closed left ankle fracture (Acute) Ortho consulted. ORIF performed by Dr. Gray /- POD # 8 Nonweightbearing status LLE. Right ankle pain X-ray: IMPRESSION: 1. Small avulsion tip medial malleolus. 2. Old avulsion distal fibula. 3. Soft tissue edema. 4. Heel spur. --Evaluated by orthopedic service, recommend high walking boots for the right lower extremity for now Follow-up with orthopedic surgeon Dr. Gray Bowel obstruction (Acute) Developed worsening nausea and vomiting postop. KUB suggested bowel obstruction; NGT placed. General Surgery consulted. Bowel obstruction secondary to adhesions vs ileus. --Positive BMs, flatus --NG tube withdrawn December 20, 2018 Full liquid diet ordered, tolerating well, advance to low fiber diet today continue to monitor Relistor second dose ordered December 20 Overall improving, but will continue to monitor closely Hypertension (Chronic) Usually takes propranolol and amlodipine. Resume p.o. propranolol, Continue amlodipine Blood pressure stable GERD (gastroesophageal reflux disease) (Chronic) Usually takes PPI. Receiving IV famotidine. 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 Given bicarbonate supplement, resolved Urinary tract infection Noted to have gross hematuria via Cheng. UA showed 3+ blood, nitrite, leukocyte esterase, WBC's, RBC's, epithelial cells, but no bacteria. Afebrile. Urine culture growing gram negative bacilli- Proteus penneri and E coli, both sensitive to ceftriaxone. Received 7 days of IV ceftriaxone Anxiety / Depression Resumed duloxetine via NGT. DVT prophylaxis Received SQ heparin, but developed hematuria. Heparin held. SCD's ordered. Hematuria improved; heparin resumed. Disposition Discharge disposition to be determined- ? home vs skilled care / rehab. Prefers to be discharged to home as much as possible Medical follow-up with Dr. Garsia. Endocrinology follow-up with [facility]. Subjective Follow-up for partial small bowel obstruction Seen resting bedside chair, comfortable, nondistressed, in good spirits She continues to feel improved No abdominal pain, nausea diet advance to low fiber diet Positive BMs and flatus Pain on the lower extremities tolerable, tolerating ambulation with walker No other symptoms Review of Systems Review of Systems: All systems reviewed & are unremarkable except as noted in HPI & below Physical Exam Physical Exam: General- oriented x 3, not in distress, speaks in sentences with no effort or accessory muscle use Eyes- anicteric Neck- no JVD Lungs- clear breath sounds, no crackles, no wheezing, good air entry bilaterally Heart- normal rate, regular rhythm; no murmurs Abdomen- normal bowel sounds, minimally distended but, soft, nontender Extremities-left lower extremity: Heavy dressing in place Right lower extremity: Mild edema of the foot, no erythema warmth, tenderness Neuro- alert, oriented x 3; no gross focal neurologic deficits Skin- warm & dry Results & Data Vital Signs (Past 12 Hours) Vital Signs Temp Pulse Resp BP BP Pulse Ox 12/21/18 15:55 36.3 C L 75 20 122/80 98 12/21/18 15:54 36.3 C L 75 20 122/80 98 12/21/18 11:56 37.1 C 79 17 128/79 96 12/21/18 08:00 36.7 C 68 20 134/84 95 Laboratory Results Laboratory Results - last 24 hr 12/20/18 12/21/18 12/21/18 20:49 00:11 04:06 Sodium Potassium Chloride Carbon Dioxide Anion Gap BUN Creatinine Est Cr Clr Drug Dosing Est GFR ( Amer) Est GFR (Non-Af Amer) BUN/Creatinine Ratio Glucose POC Glucose 128 H 105 H 129 H Calcium Phosphorus Magnesium 12/21/18 12/21/18 12/21/18 06:52 07:51 11:57 Sodium 133 L Potassium 4.4 Chloride 95 L Carbon Dioxide 30 Anion Gap 8.0 BUN 27 H Creatinine 1.20 Est Cr Clr Drug Dosing 64.2 Est GFR ( Amer) 63.2 Est GFR (Non-Af Amer) 54.5 BUN/Creatinine Ratio 22.6 H Glucose 153 H POC Glucose 159 H 116 H Calcium 10.1 Phosphorus 4.7 Magnesium 2.2 12/21/18 17:03 Sodium Potassium Chloride Carbon Dioxide Anion Gap BUN Creatinine Est Cr Clr Drug Dosing Est GFR ( Amer) Est GFR (Non-Af Amer) BUN/Creatinine Ratio Glucose POC Glucose 97 Calcium Phosphorus Magnesium
[2018-12-21] MEDS: DULOXETINE HCL 60 MG CAP PO SCH (20:55)
[2018-12-22] MEDS: METOCLOPRAMIDE HCL INJ 5 MG/ML 2 ML VIAL IV SCH ×4 (04:23→21:15)
[2018-12-22] MEDS: HEPARIN SOD 5,000 UNIT/0.5 ML VIAL SQ SCH ×3 (05:35→21:15)
[2018-12-22] MEDS: HYDROmorphone INJ 1 MG/ML SYRINGE IV PRN ×3 (05:46→18:15)
[2018-12-22] MEDS: INSULIN ASPART 100 UNITS/ML 3 ML PEN SC SCH ×4 (08:24→21:15)
[2018-12-22] MEDS: INSULIN GLARGINE SOLOSTAR 100 UNITS/ML 3 ML PEN SC SCH (08:25)
[2018-12-22] MEDS: PROPRANOLOL HCL 60 MG LA CAP PO SCH ×2 (08:26→20:24)
[2018-12-22] MEDS: FAMOTIDINE 20 MG in SYRINGE 3 ML IV SCH ×2 (08:29→20:24)
[2018-12-22] MEDS: PREGABALIN 100 MG CAP PO SCH ×3 (08:29→20:24)
[2018-12-22] MEDS: KETOROLAC TROMETHAMINE 15 MG/ML VIAL IV PRN ×3 (08:53→23:22)
--- NOTE | 2018-12-22 10:13 | Nephrology Progress Note ---
Date of Service December 22, 2018 Assessment & Plan (1) Disorders of fluid, electrolyte, and acid-base balance: chronic acid/base disorder > chronic metabolic acidosis; >no indication for sodium bicarb tabs at this time but watch for need >> would resume at half dose ONLY if taking po reliably and labs indicate need; if no need before d/c, recommend resume at half dose at d/c irregardless and I will adjust dose/ follow labs at d/c >>>> D/C RECS (for when pt appropriate for d/c) >> check bmp pls after d/c q mon/th x 3 wks; f/u w/ me next available; sodium bicarb dose as above -Agree with maintenance fluids. -Continue monitoring with daily BMP. (2) Ankle fracture, left: s/p ORIF 12/13; w/ recurrent and unexplained falls prior to admission; now also w/ bone chip R foot needing ortho f/u (3) Ileus: postoperative ileus -She is tolerating diet well; surgery following closely (4) Acute kidney injury: recurrent; not able to balance I/O I suspect; suspect prerenal despite PPN baseline creatinine 0.7-0.8 > Continue NS at 50 until adequate intake. Subjective Patient seen in follow-up for electrolyte imbalance and acidosis. She is complaining of left ankle pain. She is now eating. She is off PPN. Abdomen still distended but better. Continues maintenance normal saline Review of Systems Review of Systems: All systems reviewed & are unremarkable except as noted in HPI & below Physical Exam Physical Exam: General exam: Appears comfortable, no acute distress HEENT: Pupils are equal and reactive to light Neck: No JVD, neck is supple trachea is midline Respiratory system: Clear breath sounds bilaterally. Gastrointestinal: Abdomen is soft, distended, non tender, bowel sounds are present CVS: Regular rate and rhythm. No murmurs, rubs or gallops Musculoskeletal: No joint or muscle tenderness Extremities: She has a boot on the left foot Neuro: Oriented, no tremors, no focal neurological deficits Skin: No rashes Results & Data Vital Signs (Past 12 Hours) Vital Signs Temp Pulse Pulse Pulse Resp BP Pulse Ox 12/22/18 09:44 74 12/22/18 07:50 36.6 C 73 18 126/84 94 09/14/19 03:15 36.9 C 82 18 157/99 H 96 12/22/18 00:11 65 12/22/18 00:08 36.8 C 71 18 129/87 94 Laboratory Results Laboratory Results - last 24 hr 12/21/18 12/21/18 12/21/18 11:57 17:03 20:04 POC Glucose 116 H 97 92 12/22/18 12/22/18 05:53 07:49 POC Glucose 113 H 132 H (1) Ankle fracture, left Encounter type: initial encounter Fracture type: closed Qualified Code(s): S82.892A - Other fracture of left lower leg, initial encounter for closed fracture
--- NOTE | 2018-12-22 11:19 | Pharmacy Report ---
Pharmacy Glycemic Short Note 2 - Date of Service December 22, 2018 - Glycemic Short BSG Results (Last 24 hours): 12/21/18 12/21/18 12/21/18 11:57 17:03 20:04 POC Glucose 116 H 97 92 12/22/18 12/22/18 05:53 07:49 POC Glucose 113 H 132 H OUTPATIENT ANTIDIABETIC REGIMEN: * Tresiba 120 units SQ qHS * Humalog 30 units SQ TID * Actos 30 mg PO daily * HbA1c: 12.6% 12/11/18 ASSESSMENT: 12/22 * Ms. Hernandez received 30 units of basal and 50 units of bolus insulin yesterday * BSGs have been stable but are on the lower side now that the PPN has been stopped * Will loosen prandial coverage slightly since postprandials were in the 90s yesterday, and fasting starting out lower this AM 12/21 * PPN to be stopped today after current bag finishes at 1559 * Patient received 89 units of insulin yesterday (30 of which were included in the TPN) * BSGs ranged 89-158 yesterday PLAN FOR INPATIENT GLYCEMIC CONTROL: * Hold outpatient oral diabetes medications and Tresiba * Basal insulin: * Continue current Lantus scale (<110: 20 units, 110-180: 30 units, > 180: 40 units) * Bolus insulin: loosen CR * NovoLog per scale ACHS or Q6hrs while NPO * Goal Range: Low 120 mg/dL - High 150 mg/dL (elevated goal range secondary to repeated lows and elevated A1c) * Correction Factor: 10 mg/dL/unit * Nutritional / Prandial insulin per carb ratio of 1 unit per 5 grams CHO consumed * Please note that the plan above was derived based on current level of insulin resistance and hospital stress. These recommendations are appropriate for inpatient admission only. Plan of care upon discharge will need to be reassessed to avoid potential outpatient hypo/hyperglycemia.
[2018-12-22] MEDS: SODIUM CHLORIDE 0.9% 1000ML 1,000 ML IV SCH (13:12)
--- NOTE | 2018-12-22 15:05 | Surgery Progress Note ---
Date of Service December 22, 2018 Assessment & Plan (1) Ileus: Patient continues to improve as she is passing flatus and having BM's Tolerating low fiber diet without issues Able to ambulate better with walker Okay for discharge to rehab from our standpoint once ready per medicine Patient seen and examined with Dr. Santiago Subjective Patient continues to pass flatus and have bowel movements. She is tolerating a low fiber diet without nausea/vomiting. Says she is ambulating some with her walker. States that she will be going to rehab to recover once set up. Physical Exam Physical Exam: awake/alert/sitting in chair Results & Data Vital Signs (Past 12 Hours) Vital Signs Temp Pulse Pulse Pulse Resp BP Pulse Ox 12/22/18 12:00 36.5 C 81 18 122/83 95 12/22/18 09:44 74 12/22/18 07:50 36.6 C 73 18 126/84 94 12/22/18 03:15 36.9 C 82 18 157/99 H 96 PG Care Time/CCT Total # of Minutes Spent Total Time Spent with Patient: Total time spent is greater than 50% in coordination of care (as documented) at patient's floor/unit and/or counseling patient:
--- NOTE | 2018-12-22 17:59 | Hospitalist Progress Note ---
Date of Service December 22, 2018 Assessment & Plan (1) Diabetes mellitus, insulin dependent (IDDM), uncontrolled: Diabetes mellitus, insulin dependent (IDDM), uncontrolled (Acute) Per Dr. Patel notes: History of diabetes mellitus diagnosed in 2014 at the age of 38. 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 Patient is required insulin therapy for management, but not certain that she has type 1 disease. Blood sugar at time of admission was 343. Anion gap was 15. However, there was no ketonuria. BHB was ordered, but could not be interpreted because of hemolysis. Treated for suspected DKA with IV insulin with improvement of blood sugars and metabolic acidosis. Pharmacy consulted for glycemic management and Order Booker consulted as well. Hemoglobin A1c 12.6. Transitioned to SQ insulin. Blood glucose within acceptable range Continue insulin Lantus and insulin sliding scale Acute kidney injury / Dehydration (Acute) IV fluids given resolved Closed left ankle fracture (Acute) Ortho consulted. ORIF performed by Dr. Gray /- POD # 8 Nonweightbearing status LLE. Right ankle pain X-ray: IMPRESSION: 1. Small avulsion tip medial malleolus. 2. Old avulsion distal fibula. 3. Soft tissue edema. 4. Heel spur. --Evaluated by orthopedic service, recommend high walking boots for the right lower extremity for now Follow-up with orthopedic surgeon Dr. Gray Bowel obstruction (Acute) Developed worsening nausea and vomiting postop. KUB suggested bowel obstruction; NGT placed. General Surgery consulted. Bowel obstruction secondary to adhesions vs ileus. --Positive BMs, flatus --NG tube withdrawn December 20, 2018 Tolerating low fiber diet well so far Continues to improve, monitor Hypertension (Chronic) Usually takes propranolol and amlodipine. Resume p.o. propranolol, Continue amlodipine Blood pressure stable GERD (gastroesophageal reflux disease) (Chronic) Usually takes PPI. Receiving IV famotidine. 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 Given bicarbonate supplement, resolved Urinary tract infection Noted to have gross hematuria via Cheng. UA showed 3+ blood, nitrite, leukocyte esterase, WBC's, RBC's, epithelial cells, but no bacteria. Afebrile. Urine culture growing gram negative bacilli- Proteus penneri and E coli, both sensitive to ceftriaxone. Received 7 days of IV ceftriaxone Anxiety / Depression Resumed duloxetine via NGT. DVT prophylaxis SCD's ordered. heparin resumed. Disposition Patient now agreeable to transition to inpatient rehab, case management notified Medical follow-up with Dr. Garsia. Endocrinology follow-up with [facility]. Subjective Follow-up for ileus, status post left ankle surgery Seen sitting up in bedside chair, comfortable Tolerating diet well, no nausea or vomiting Positive bowel movements Pain on the bilateral ankles/feet tolerable Patient would now like to be referred to inpatient rehab Denies other symptoms Review of Systems Review of Systems: All systems reviewed & are unremarkable except as noted in HPI & below Physical Exam Physical Exam: General- oriented x 3, not in distress, speaks in sentences with no effort or accessory muscle use Eyes- anicteric Neck- no JVD Lungs- clear BS, no crackles no wheezing bilaterally Heart- normal rate, regular rhythm; no murmurs Abdomen- normal bowel sounds, mild distention, soft, nontender Extremities-left lower leg: Heavy dressing in place Right lower leg: Boot in place Neuro- alert, oriented x 3; no gross focal neurologic deficits Skin- warm & dry Results & Data Vital Signs (Past 12 Hours) Vital Signs Temp Pulse Pulse Resp BP Pulse Ox 12/22/18 15:49 78 12/22/18 12:00 36.5 C 81 18 122/83 95 12/22/18 09:44 74 12/22/18 07:50 36.6 C 73 18 126/84 94 Laboratory Results Laboratory Results - last 24 hr 12/21/18 12/22/18 12/22/18 20:04 05:53 07:49 POC Glucose 92 113 H 132 H 12/22/18 12/22/18 11:49 16:45 POC Glucose 157 H 114 H
[2018-12-22] MEDS: DULOXETINE HCL 60 MG CAP PO SCH (20:24)
[2018-12-23] MEDS: HYDROmorphone INJ 1 MG/ML SYRINGE IV PRN ×3 (03:35→20:26)
[2018-12-23] MEDS: METOCLOPRAMIDE HCL INJ 5 MG/ML 2 ML VIAL IV SCH ×4 (03:36→21:22)
[2018-12-23] MEDS: HEPARIN SOD 5,000 UNIT/0.5 ML VIAL SQ SCH ×3 (05:57→21:23)
[2018-12-23] MEDS: SODIUM CHLORIDE 0.9% 1000ML 1,000 ML IV SCH (08:13)
[2018-12-23] MEDS: INSULIN ASPART 100 UNITS/ML 3 ML PEN SC SCH ×4 (08:14→21:24)
[2018-12-23] MEDS: PROPRANOLOL HCL 60 MG LA CAP PO SCH ×2 (08:15→21:20)
[2018-12-23] MEDS: INSULIN GLARGINE SOLOSTAR 100 UNITS/ML 3 ML PEN SC SCH (08:15)
[2018-12-23] MEDS: PREGABALIN 100 MG CAP PO SCH ×3 (08:20→21:22)
[2018-12-23] MEDS: FAMOTIDINE 20 MG in SYRINGE 3 ML IV SCH (08:20)
--- NOTE | 2018-12-23 09:56 | Pharmacy Report ---
Pharmacy Glycemic Short Note 2 - Date of Service December 23, 2018 - Glycemic Short BSG Results (Last 24 hours): 12/22/18 12/22/18 12/22/18 11:49 16:45 20:20 POC Glucose 157 H 114 H 114 H 12/23/18 07:57 POC Glucose 192 H OUTPATIENT ANTIDIABETIC REGIMEN: * Tresiba 120 units SQ qHS * Humalog 30 units SQ TID * Actos 30 mg PO daily * HbA1c: 12.6% 12/11/18 ASSESSMENT: 12/23 * [place] received 30 units of basal and 30 units of bolus insulin yesterday * BSGs ranged from 113-157 mg/dL yesterday * Fasting = 192 mg/dL this AM; fasting BSGs had been trending downward so will wait until a trend is seen before making any changes to basal insulin * No significant changes to causes of insulin resistance 12/22 * Ms. Hernandez received 30 units of basal and 50 units of bolus insulin yesterday * BSGs have been stable but are on the lower side now that the PPN has been stopped * Will loosen prandial coverage slightly since postprandials were in the 90s yesterday, and fasting starting out lower this AM 12/21 * PPN to be stopped today after current bag finishes at 1559 * Patient received 89 units of insulin yesterday (30 of which were included in the TPN) * BSGs ranged 89-158 yesterday PLAN FOR INPATIENT GLYCEMIC CONTROL: * Hold outpatient oral diabetes medications and Tresiba * Basal insulin: * Change to set dose of Lantus 30 units qAM since patient has been receiving this since 12/20 * Bolus insulin: - no change * NovoLog per scale ACHS or Q6hrs while NPO * Goal Range: Low 120 mg/dL - High 150 mg/dL (elevated goal range secondary to repeated lows and elevated A1c) * Correction Factor: 10 mg/dL/unit * Nutritional / Prandial insulin per carb ratio of 1 unit per 5 grams CHO consumed Discharge Recommendations: A1c = 12.6 % on 12/11/18 (Goal A1c = < 7 % based on age and comorbidities. A reasonable A1C goal for many non- adults is A1c less than 7% ) * A1c is elevated most in part from patient noncompliance at times. May consider adding metformin as she has some element of insulin resistance. Recommendations for Patient A1c greater than 10% with a goal of <7% A1c is greater than or equal to 10% -> consider triple therapy with metformin + basal insulin + (GLP1-RA OR prandial insulin). May need to continue additional antidiabetic agent based on patient specific factors (efficacy, hypo risk, weight gain/loss, side effects, cost) Recommend: Consider adding Metformin XR 500mg PO daily with evening meal. Typically the XR formulation of metformin is better tolerated than the immediate release formulation. Continue to titrate metformin dosing upwards as recommended. Dosage increases should be made in increments of 500 mg weekly, up to 2,000 mg/day PO, given in divided doses. Doses above 2000 mg/day may be better tolerated if divided and given 3 times per day with meals. Max: 2,550 mg/day PO, in divided doses * B12 supplementation may be necessary with skilled nursing metformin
[2018-12-23] MEDS: KETOROLAC TROMETHAMINE 15 MG/ML VIAL IV PRN (11:02)
--- NOTE | 2018-12-23 16:11 | Hospitalist Progress Note ---
Date of Service December 23, 2018 Assessment & Plan (1) Diabetes mellitus, insulin dependent (IDDM), uncontrolled: Diabetes mellitus, insulin dependent (IDDM), uncontrolled (Acute) Per Dr. Patel notes: History of diabetes mellitus diagnosed in 2014 at the age of 38. 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 Patient is required insulin therapy for management, but not certain that she has type 1 disease. Blood sugar at time of admission was 343. Anion gap was 15. However, there was no ketonuria. BHB was ordered, but could not be interpreted because of hemolysis. Treated for suspected DKA with IV insulin with improvement of blood sugars and metabolic acidosis. Pharmacy consulted for glycemic management and Gro[employer]elling consulted as well. Hemoglobin A1c 12.6. Transitioned to SQ insulin. Blood glucose within acceptable range Continue insulin Lantus and insulin sliding scale Acute kidney injury / Dehydration (Acute) IV fluids given resolved Closed left ankle fracture (Acute) Ortho consulted. ORIF performed by Dr. Gray /- POD # 8 Nonweightbearing status LLE. Continue PT OT, patient agreed to transition to rehab Right ankle pain X-ray: IMPRESSION: 1. Small avulsion tip medial malleolus. 2. Old avulsion distal fibula. 3. Soft tissue edema. 4. Heel spur. --Evaluated by orthopedic service, recommend high walking boots for the right lower extremity for now Follow-up with orthopedic surgeon Dr. Gray Bowel obstruction (Acute) Developed worsening nausea and vomiting postop. KUB suggested bowel obstruction; NGT placed. General Surgery consulted. Bowel obstruction secondary to adhesions vs ileus. --Positive BMs, flatus --NG tube withdrawn December 20, 2018 Doing well, tolerating diet well Continues to improve, monitor Hypertension (Chronic) Usually takes propranolol and amlodipine. Resume p.o. propranolol, Continue amlodipine Blood pressure stable GERD (gastroesophageal reflux disease) (Chronic) Usually takes PPI. 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 Given bicarbonate supplement, resolved Urinary tract infection Noted to have gross hematuria via Cheng. UA showed 3+ blood, nitrite, leukocyte esterase, WBC's, RBC's, epithelial cells, but no bacteria. Afebrile. Urine culture growing gram negative bacilli- Proteus penneri and E coli, both sensitive to ceftriaxone. Received 7 days of IV ceftriaxone Anxiety / Depression Resumed duloxetine via NGT. DVT prophylaxis SCD's ordered. heparin resumed. Disposition Patient now agreeable to transition to inpatient rehab, case management notified, awaiting acceptance to inpatient rehab Medical follow-up with Dr. Garsia. Endocrinology follow-up with [facility]. Subjective Follow-up for partial small bowel obstruction, status post left ankle surgery Seen resting in bed, comfortable, patient's mother at the bedside States she feels okay overall Denies abdominal pain, nausea, tolerating diet well, positive bowel movements Pain management adequately No dizziness, chest pain, no shortness of breath with ambulation No other symptoms Review of Systems Review of Systems: All systems reviewed & are unremarkable except as noted in HPI & below Physical Exam Physical Exam: General- oriented x 3, not in distress, speaks in sentences with no effort or accessory muscle use Eyes- anicteric Neck- no JVD Lungs- clear breath sounds bilaterally, no crackles or wheezing Heart- normal rate, regular rhythm; no murmurs Abdomen- normal bowel sounds, nondistended, soft, no tenderness Extremities-left lower extremity: Dressing placed Right lower extremity: Less pedal edema no pretibial edema, no calf tenderness Neuro- alert, oriented x 3; no gross focal neurologic deficits Skin- warm & dry Results & Data Vital Signs (Past 12 Hours) Vital Signs Temp Pulse Pulse Resp BP Pulse Ox 12/23/18 12:18 36.8 C 84 20 121/82 96 12/23/18 08:42 36.7 C 78 18 131/83 98 12/23/18 08:31 68 Laboratory Results Laboratory Results - last 24 hr 12/22/18 12/22/18 12/23/18 16:45 20:20 07:57 POC Glucose 114 H 114 H 192 H 12/23/18 11:48 POC Glucose 149 H
--- NOTE | 2018-12-23 16:22 | Nephrology Progress Note ---
Date of Service December 23, 2018 Assessment & Plan (1) Disorders of fluid, electrolyte, and acid-base balance: chronic acid/base disorder > chronic metabolic acidosis; >no indication for sodium bicarb tabs at this time but watch for need > If patient is discharged today, she needs a BMP tomorrow and results sent to Dr. Fiore. Dr. Fiore will decide dose of sodium bicarbonate supplementation. (2) Ankle fracture, left: s/p ORIF 12/13; w/ recurrent and unexplained falls prior to admission; now also w/ bone chip R foot needing ortho f/u (3) Ileus: postoperative ileus -She is tolerating diet well; surgery following closely (4) Acute kidney injury: recurrent; not able to balance I/O I suspect; suspect prerenal despite PPN baseline creatinine 0.7-0.8 Improved with IV fluids Subjective Patient seen in follow-up for electrolyte imbalance. She is feels better and eating well. No vomiting or diarrhea. Her leg pain is better. Blood sugars are controlled. No shortness of breath. Review of Systems Review of Systems: All systems reviewed & are unremarkable except as noted in HPI & below Physical Exam Physical Exam: General exam: Appears comfortable, no acute distress HEENT: Pupils are equal and reactive to light Neck: No JVD, neck is supple trachea is midline Respiratory system: Clear breath sounds bilaterally. Gastrointestinal: Abdomen is soft, non distended, non tender, bowel sounds are present CVS: Regular rate and rhythm. No murmurs, rubs or gallops Musculoskeletal: No joint or muscle tenderness Extremities: Non tender, no edema, peripheral pulses are present. Left leg in a boot Neuro: Oriented, no tremors, no focal neurological deficits Skin: No rashes Results & Data Vital Signs (Past 12 Hours) Vital Signs Temp Pulse Pulse Resp BP Pulse Ox 12/23/18 12:18 36.8 C 84 20 121/82 96 12/23/18 08:42 36.7 C 78 18 131/83 98 12/23/18 08:31 68 Laboratory Results Laboratory Results - last 24 hr 12/22/18 12/22/18 12/23/18 16:45 20:20 07:57 POC Glucose 114 H 114 H 192 H 12/23/18 11:48 POC Glucose 149 H (1) Ankle fracture, left Encounter type: initial encounter Fracture type: closed Qualified Code(s): F60.958Z - Other fracture of left lower leg, initial encounter for closed fracture
[2018-12-23] MEDS: TRAMADOL HCL 50 MG TABLET PO PRN (17:44)
[2018-12-23] MEDS ORDERED: Nursing to Pharmacy Communication ONE (19:30)
[2018-12-23] MEDS: DULOXETINE HCL 60 MG CAP PO SCH (21:20)
[2018-12-24] MEDS: METOCLOPRAMIDE HCL INJ 5 MG/ML 2 ML VIAL IV SCH ×4 (04:09→21:00)
[2018-12-24] MEDS: SODIUM CHLORIDE 0.9% 1000ML 1,000 ML IV SCH ×3 (04:09→19:54)
[2018-12-24] MEDS: HEPARIN SOD 5,000 UNIT/0.5 ML VIAL SQ SCH ×3 (05:35→21:00)
[2018-12-24] MEDS: TRAMADOL HCL 50 MG TABLET PO PRN ×3 (05:40→13:51)
[2018-12-24] MEDS: PREGABALIN 100 MG CAP PO SCH ×3 (07:51→21:02)
[2018-12-24] MEDS: PROPRANOLOL HCL 60 MG LA CAP PO SCH ×2 (07:51→21:01)
--- NOTE | 2018-12-24 08:31 | Surgery Progress Note ---
Date of Service December 24, 2018 Assessment & Plan (1) Ileus: progressing well- tolerating diet ileus resolved f/u with medical doctors does not require surgical follow up Results & Data Vital Signs (Past 12 Hours) Vital Signs Temp Pulse Resp BP Pulse Ox 12/24/18 07:54 36.8 C 82 18 141/91 H 95 12/23/18 23:58 36.6 C 73 18 138/91 96 PG Care Time/CCT Total # of Minutes Spent Total Time Spent with Patient: Total time spent is greater than 50% in coordination of care (as documented) at patient's floor/unit and/or counseling patient:
[2018-12-24] MEDS: INSULIN GLARGINE SOLOSTAR 100 UNITS/ML 3 ML PEN SC SCH (08:53)
[2018-12-24] MEDS: PANTOprazole 40 MG TAB PO SCH (09:24)
[2018-12-24] MEDS: INSULIN ASPART 100 UNITS/ML 3 ML PEN SC SCH ×4 (09:25→21:00)
[2018-12-24 09:37] LABS: BUN Creatinine Ratio 28.8 (10-20); Calcium 11.1 mg/dl (8.5-10.1); Creatinine Clr Calc Pharmacy 50.7 ml/min; Est GFR (African American) 47.5; Potassium 4.9 mmol/L (3.5-5.1)
[2018-12-24] MEDS ORDERED: INSULIN GLARGINE SOLOSTAR 100 UNITS/ML 3 ML PEN SC STA (10:16)
--- NOTE | 2018-12-24 10:28 | Nephrology Progress Note ---
Date of Service December 24, 2018 Assessment & Plan (1) Acute kidney injury: Patient with acute kidney injury likely due to recent NSAID use. Patient got a dose of Toradol yesterday. She could also have ATN in setting of recent ORIF for left ankle fracture. Creatinine today 1.5. baseline creatinine 0.7-0.8 -Monitor renal function with daily BMP. Avoid NSAIDs such as Toradol and contrast. -Resume normal saline and increase the rate to 100 mL/h. (2) Disorders of fluid, electrolyte, and acid-base balance: Patient now has hyponatremia with sodium of 130. She takes Lasix at home. No need to resume Lasix now but will likely need to start taking it at time of discharge. (3) Fracture of lateral malleolus of left ankle: Status post ORIF. Please avoid NSAIDs for pain control. (4) Hypercalcemia: Patient with calcium of 11.1. Will check PTH and vitamin D. Will give normal saline at 100 mL/h. Subjective Patient seen in follow-up for acute kidney injury and electrolyte imbalance. She feels better this morning. She was sitting up in the chair. No shortness of breath. No vomiting. She has a boot on the left leg. Creatinine up trending to 1.5. She got a dose of Toradol yesterday. Review of Systems Review of Systems: All systems reviewed & are unremarkable except as noted in HPI & below Physical Exam Physical Exam: General exam: Appears comfortable, no acute distress HEENT: Pupils are equal and reactive to light Neck: No JVD, neck is supple trachea is midline Respiratory system: Clear breath sounds bilaterally. Gastrointestinal: Abdomen is soft, non distended, non tender, bowel sounds are present CVS: Regular rate and rhythm. No murmurs, rubs or gallops Musculoskeletal: No joint or muscle tenderness Extremities: Non tender, no edema, peripheral pulses are present. Wearing boots bilaterally Neuro: Oriented, no tremors, no focal neurological deficits Skin: No rashes Results & Data Vital Signs (Past 12 Hours) Vital Signs Temp Pulse Resp BP Pulse Ox 12/24/18 07:54 36.8 C 82 18 141/91 H 95 12/23/18 23:58 36.6 C 73 18 138/91 96 Laboratory Results Laboratory Results - last 24 hr 12/23/18 12/23/18 12/23/18 11:48 16:44 20:18 Sodium Potassium Chloride Carbon Dioxide Anion Gap BUN Creatinine Est Cr Clr Drug Dosing Est GFR ( Amer) Est GFR (Non-Af Amer) BUN/Creatinine Ratio Glucose POC Glucose 149 H 125 H 141 H Calcium 12/24/18 12/24/18 08:15 09:06 Sodium 130 L Potassium 4.9 Chloride 98 Carbon Dioxide 21 Anion Gap 11.0 BUN 44 H Creatinine 1.52 H Est Cr Clr Drug Dosing 50.7 Est GFR ( Amer) 47.5 Est GFR (Non-Af Amer) 41.0 BUN/Creatinine Ratio 28.8 H Glucose 238 H POC Glucose 199 H Calcium 11.1 H
--- NOTE | 2018-12-24 13:21 | Hospitalist Progress Note ---
Date of Service December 24, 2018 Assessment & Plan (1) Diabetes mellitus, insulin dependent (IDDM), uncontrolled: Diabetes mellitus, insulin dependent (IDDM), uncontrolled (Acute) Per Dr. Patel notes: History of diabetes mellitus diagnosed in 2014 at the age of 38. 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 Patient is required insulin therapy for management, but not certain that she has type 1 disease. Blood sugar at time of admission was 343. Anion gap was 15. However, there was no ketonuria. BHB was ordered, but could not be interpreted because of hemolysis. Treated for suspected DKA with IV insulin with improvement of blood sugars and metabolic acidosis. Pharmacy consulted for glycemic management and Rn Team Leader consulted as well. Hemoglobin A1c 12.6. Transitioned to SQ insulin. Continue insulin Lantus and sliding scale Patient will need strict blood glucose control as an outpatient Acute kidney injury / Dehydration (Acute) Today, creatinine increased again to 1.6 Calcium 11.1 Sodium 130 IV NSS resumed, discussed with data systems manager Monitor daily Closed left ankle fracture (Acute) Ortho consulted. ORIF performed by Dr. Gray /- POD # 8 Nonweightbearing status LLE. Continue PT OT, patient agreed to transition to rehab Right ankle pain X-ray: IMPRESSION: 1. Small avulsion tip medial malleolus. 2. Old avulsion distal fibula. 3. Soft tissue edema. 4. Heel spur. --Evaluated by orthopedic service, recommend high walking boots for the right lower extremity for now Follow-up with orthopedic surgeon Dr. Gray Bowel obstruction (Acute) Developed worsening nausea and vomiting postop. KUB suggested bowel obstruction; NGT placed. General Surgery consulted. Bowel obstruction secondary to adhesions vs ileus. --Positive BMs, flatus --NG tube withdrawn December 20, 2018 Doing well, tolerating diet well Continues to improve, monitor Hypertension (Chronic) Usually takes propranolol and amlodipine. Resume p.o. propranolol, Continue amlodipine Blood pressure stable GERD (gastroesophageal reflux disease) (Chronic) Usually takes PPI. 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 Given bicarbonate supplement, resolved Urinary tract infection Noted to have gross hematuria via Cheng. UA showed 3+ blood, nitrite, leukocyte esterase, WBC's, RBC's, epithelial cells, but no bacteria. Afebrile. Urine culture growing gram negative bacilli- Proteus penneri and E coli, both sensitive to ceftriaxone. Received 7 days of IV ceftriaxone Anxiety / Depression Resumed duloxetine DVT prophylaxis SCD's ordered. heparin. Disposition Patient now agreeable to transition to inpatient rehab, case management notified Medical follow-up with Dr. Garsia. Endocrinology follow-up with [facility]. Discharge to rehab once renal function stabilized, cleared by data systems manager Subjective Follow-up for for small bowel obstruction, status post left ankle surgery Seen resting in bed, comfortable, emotional today, states she feels homesick Reassured, improved during interview States she feels fine overall Denies abdominal pain, nausea, also tolerating diet well, positive bowel movements No problems voiding Pain well controlled No other symptoms Review of Systems Review of Systems: All systems reviewed & are unremarkable except as noted in HPI & below Physical Exam Physical Exam: General- oriented x 3, not in distress, speaks in sentences with no effort or accessory muscle use Eyes- anicteric Neck- no JVD Lungs- clear breath sounds, no wheezing bilaterally Heart- normal rate, regular rhythm; no murmurs Abdomen- normal bowel sounds, nondistended, soft, nontender Extremities-left lower extremity: Cast in place Right lower extremity: Foot edema improved, tenderness Neuro- alert, oriented x 3; no gross focal neurologic deficits Skin- warm & dry Results & Data Vital Signs (Past 12 Hours) Vital Signs Temp Pulse Resp BP Pulse Ox 12/24/18 07:54 36.8 C 82 18 141/91 H 95
[2018-12-24] MEDS ORDERED: HYDROCODONE/ACETAMOPHEN 5/325MG TAB PO STA (16:10)
[2018-12-24] MEDS: DULOXETINE HCL 60 MG CAP PO SCH (21:01)
[2018-12-24] MEDS: ACETAMINOPHEN 1,000 MG/100 ML VIAL IV PRN (23:03)
[2018-12-25] MEDS: SODIUM CHLORIDE 0.9% 1000ML 1,000 ML IV SCH ×2 (04:03→09:54)
[2018-12-25] MEDS: METOCLOPRAMIDE HCL INJ 5 MG/ML 2 ML VIAL IV SCH ×2 (04:04→09:55)
[2018-12-25] MEDS: HEPARIN SOD 5,000 UNIT/0.5 ML VIAL SQ SCH ×2 (05:56→12:56)
[2018-12-25] MEDS: TRAMADOL HCL 50 MG TABLET PO PRN ×3 (06:00→14:35)
[2018-12-25] MEDS: PROPRANOLOL HCL 60 MG LA CAP PO SCH (08:14)
[2018-12-25] MEDS: PREGABALIN 100 MG CAP PO SCH ×2 (08:14→13:43)
[2018-12-25] MEDS: PANTOprazole 40 MG TAB PO SCH (08:14)
[2018-12-25] MEDS: INSULIN ASPART 100 UNITS/ML 3 ML PEN SC SCH ×2 (08:44→12:55)
[2018-12-25] MEDS ORDERED: INSULIN GLARGINE SOLOSTAR 100 UNITS/ML 3 ML PEN SC SCH (09:00)
[2018-12-25 09:25] LABS: Calcium 10.7 mg/dl (8.5-10.1); Creatinine Clr Calc Pharmacy 57.5 ml/min; Est GFR (African American) 55.3; Est GFR (Non-African American) 47.7; Potassium 4.6 mmol/L (3.5-5.1)
--- NOTE | 2018-12-25 12:08 | Hospitalist Progress Note ---
Date of Service December 25, 2018 Assessment & Plan (1) Diabetes mellitus, insulin dependent (IDDM), uncontrolled: Diabetes mellitus, insulin dependent (IDDM), uncontrolled (Acute) Suspected DKA Per Dr. Patel notes: History of diabetes mellitus diagnosed in 2014 at the age of 38. 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 Patient is required insulin therapy for management, but not certain that she has type 1 disease. Blood sugar at time of admission was 343. Anion gap was 15. However, there was no ketonuria. BHB was ordered, but could not be interpreted because of hemolysis. Treated for suspected DKA with IV insulin with improvement of blood sugars and metabolic acidosis. Pharmacy consulted for glycemic management and Folder Tier consulted as well. Hemoglobin A1c 12.6. Transitioned to SQ insulin. Continue insulin Lantus and sliding scale Patient will need strict blood glucose control as an outpatient to prevent episodes of DKA Closed left ankle fracture (Acute) Ortho consulted. ORIF performed by Dr. Gray 12/12 Nonweightbearing status LLE. Continue PT OT, patient agreed to transition to rehab Follow-up with orthopedic surgeon Dr. Gray in 1 to 2 weeks Right ankle pain X-ray: IMPRESSION: 1. Small avulsion tip medial malleolus. 2. Old avulsion distal fibula. 3. Soft tissue edema. 4. Heel spur. --Evaluated by orthopedic service, recommend high walking boots for the right lower extremity for now Follow-up with orthopedic surgeon Dr. Gray Acute kidney injury / Dehydration (Acute) Social Science Instructor consulted IV fluids ordered, sodium bicarbonate tablets resumed (half of patient's home dose) On discharge today, sodium 130, creatinine 1.3, bicarbonate 16 Cleared for discharge by nephrology service Continue sodium bicarbonate twice a day, ensure adequate daily fluid intake Repeat basic metabolic panel in 3 to 5 days, please forward results to [facility] guest experience specialist Dr. Gracie Colunga Then check basic metabolic panel every Monday and x3 weeks Follow-up with Dr. Colunga in 1 to 2 weeks Bowel obstruction (Acute) Developed worsening nausea and vomiting postop. KUB suggested bowel obstruction; NGT placed. General Surgery consulted. Bowel obstruction secondary to adhesions vs ileus. --Positive BMs, flatus --NG tube withdrawn December 20, 2018 Doing well, tolerating diet well Continues to improve, monitor Hypertension (Chronic) Usually takes propranolol and amlodipine. Resume p.o. propranolol, Continue amlodipine Blood pressure stable, monitor GERD (gastroesophageal reflux disease) (Chronic) Usually takes PPI. 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 Continue sodium bicarbonate supplements Management per above Urinary tract infection Noted to have gross hematuria via Cheng. UA showed 3+ blood, nitrite, leukocyte esterase, WBC's, RBC's, epithelial cells, but no bacteria. Afebrile. Urine culture growing gram negative bacilli- Proteus penneri and E coli, both sensitive to ceftriaxone. Received 7 days of IV ceftriaxone Anxiety / Depression Resumed duloxetine DVT prophylaxis SCD's ordered. heparin subcutaneous--> evaluate duration Disposition Discharge to [facility] Follow-up with [place] orthopedic office Dr. Gray in 1 to 2 weeks. Follow-up with [facility] guest experience specialist Dr. Colunga in 1 to 2 weeks. Medical follow-up with Dr. Garsia 1 week after discharge from acute rehab Endocrinology follow-up with [facility]. Subjective Follow-up for acute kidney injury, small bowel obstruction Seen resting in bed, comfortable, in good spirits Reports increased left ankle pain today Denies abdominal pain, nausea, is tolerating diet well No problems with voiding Denies other symptoms Review of Systems Review of Systems: All systems reviewed & are unremarkable except as noted in HPI & below Physical Exam Physical Exam: General- oriented x 3, not in distress, speaks in sentences with no effort or accessory muscle use Eyes- anicteric Neck- no JVD Lungs- clear breath sounds bilaterall Heart- normal rate, regular rhythm; no murmurs Abdomen- normal bowel sounds, nondistended, soft, no tenderness Extremities-left lower extremity: Cast in place, no edema noted in the anterior aspect of the foot, no erythema warmth tenderness Right lower extremity: No edema, tenderness no pretibial edema, no calf tenderness Neuro- alert, oriented x 3; no gross focal neurologic deficits Skin- warm & dry Results & Data Laboratory Results Laboratory Results - last 24 hr 12/24/18 12/24/18 12/24/18 12:04 17:23 20:33 Sodium Potassium Chloride Carbon Dioxide Anion Gap BUN Creatinine Est Cr Clr Drug Dosing Est GFR ( Amer) Est GFR (Non-Af Amer) BUN/Creatinine Ratio Glucose POC Glucose 177 H 107 H 88 Calcium 12/25/18 12/25/18 08:11 08:25 Sodium 130 L Potassium 4.6 Chloride 103 Carbon Dioxide 16 L Anion Gap 11.0 BUN 39 H Creatinine 1.34 H Est Cr Clr Drug Dosing 57.5 Est GFR ( Amer) 55.3 Est GFR (Non-Af Amer) 47.7 BUN/Creatinine Ratio 29.0 H Glucose 214 H POC Glucose 211 H Calcium 10.7 H
--- NOTE | 2018-12-25 12:56 | Discharge Summary ---
Date of Service December 25, 2018 Admission HPI Per Admitting Provider 43 year old female who presents to the ED after a fall and left ankle pain. Patient reports she has been having frequent falls and generalized weakness. Today she fell and had sudden onset of left ankle pain, swelling, and deformity. EMS was called and patient was brought to the ED for further evaluation. Patient admits to being noncompliant with her insulin regimen. She reports she is compliant with her other medications. Patient states she has been having multiple episodes of diarrhea over the past few days as well. She denies abdominal pain, nausea, vomiting, BRBPR, or dark tarry stools. With the falls, s he denies associated lightheadedness, dizziness, or syncope. She did not strike her head. She denies chest pain and shortness of breath. No fever or chills. She denies urinary symptoms. In the ED, patient is found to be in DKA with glucose 338, + anion gap, pH 7.2, HCO3 15. Left ankle x-ray shows bimalleolar left ankle fracture/dislocation. Fracture was reduced by ED physician. Patient also received IVF and was started on insulin drip. Principal Diagnosis LEFT FIBULAR FRACTURE, STATUS POST ORIF; SUSPECTEDDIABETIC KETOACIDOSIS; ACUTE KIDNEY INJURY; SMALL BOWEL OBSTRUCTION-RESOLVED Discharge Exam General- oriented x 3, not in distress, speaks in sentences with no effort or accessory muscle use Eyes- anicteric Neck- no JVD Lungs- clear breath sounds bilaterall Heart- normal rate, regular rhythm; no murmurs Abdomen- normal bowel sounds, nondistended, soft, no tenderness Extremities-left lower extremity: Cast in place, no edema noted in the anterior aspect of the foot, no erythema warmth tenderness Right lower extremity: No edema, tenderness no pretibial edema, no calf tenderness Neuro- alert, oriented x 3; no gross focal neurologic deficits Skin- warm & dry Discharge Data Allergies Allergy/AdvReac Type Severity Reaction Status Date / Time bee venom protein (honey bee) Allergy Intermediate RED, SHORT Verified 12/09/18 17:46 OF BREATH No Known Drug Allergies Allergy Unknown NKDA Verified 12/09/18 17:46 Consultations 12/09/18 18:43 ED Decision to Admit Stat 12/09/18 19:45 Consult Case Management - Discharge Planning Routine Consult Parts Counter Representative Routine Consult Nephrology Routine Consult Orthopedic Surgery Routine 12/14/18 07:15 Consult General Surgery Routine 12/18/18 07:44 Consult Gastroenterology Routine Procedures Performed Operation Date: 12/12/18 07:00 Actual Procedures p Left Distal Fibula Open Reduction Internal Fixation with Left Ankle Syndesmosis Screw Placement, Left Ankle Stress Fuse(Left) - Mode Thompson, Ordered Studies 12/09/18 16:21 CT head/brain wo con Stat 12/09/18 20:16 CT abd pelvis wo con Urgent 12/12/18 15:00 FL ankle LT min 3V RTN Routine FL fluoroscopy <1hr Routine 12/17/18 08:38 CT abd pelvis oral and IV con Urgent Hospital Course (1) Diabetes mellitus, insulin dependent (IDDM), uncontrolled: Diabetes mellitus, insulin dependent (IDDM), uncontrolled (Acute) Suspected DKA Per Dr. Patel notes: History of diabetes mellitus diagnosed in 2013 at the age of 38. 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 Patient is required insulin therapy for management, but not certain that she has type 1 disease. Blood sugar at time of admission was 343. Anion gap was 15. However, there was no ketonuria. BHB was ordered, but could not be interpreted because of hemolysis. Treated for suspected DKA with IV insulin with improvement of blood sugars and metabolic acidosis. Pharmacy consulted for glycemic management and Road Machine Operator consulted as well. Hemoglobin A1c 12.6. Transitioned to SQ insulin. Continue insulin Lantus and sliding scale Patient will need strict blood glucose control as an outpatient to prevent episodes of DKA Discharge Recommendations per pharmacy glycemic control service: A1c = 12.6 % on 12/11/18 (Goal A1c = < 7 % based on age and comorbidities. A reasonable A1C goal for many non- adults is A1c less than 7% ) A1c is elevated most in part from patient noncompliance at times. May consider adding metformin as she has some element of insulin resistance. Recommendations for Patient A1c greater than 10% with a goal of <7% A1c is greater than or equal to 10% -> consider triple therapy with metformin + basal insulin + (GLP1-RA OR prandial insulin). May need to continue additional antidiabetic agent based on patient specific factors (efficacy, hypo risk, weight gain/loss, side effects, cost) Recommend: Consider adding Metformin XR 500mg PO daily with evening meal. Typically the XR formulation of metformin is better tolerated than the immediate release formulation. Continue to titrate metformin dosing upwards as recommended. Dosage increases should be made in increments of 500 mg weekly, up to 2,000 mg/day PO, given in divided doses. Doses above 2000 mg/day may be better tolerated if divided and given 3 times per day with meals. Max: 2,550 mg/day PO, in divided doses (IF RENAL FUNCTION ALLOWS) B12 supplementation may be necessary with chcf metformin Closed left ankle fracture (Acute) Ortho consulted. ORIF performed by Dr. Thompson 12/12 Nonweightbearing status LLE. Continue PT OT, patient agreed to transition to rehab Follow-up with orthopedic surgeon Dr. Thompson in 1 to 2 weeks Right ankle pain X-ray: IMPRESSION: 1. Small avulsion tip medial malleolus. 2. Old avulsion distal fibula. 3. Soft tissue edema. 4. Heel spur. --Evaluated by orthopedic service, recommend high walking boots for the right lower extremity for now Follow-up with orthopedic surgeon Dr. Thompson Acute kidney injury / Dehydration (Acute) Inside Outside Sales Representative consulted IV fluids ordered, sodium bicarbonate tablets resumed (half of patient's home dose) On discharge today, sodium 130, creatinine 1.3, bicarbonate 16 Cleared for discharge by nephrology service Continue sodium bicarbonate twice a day, ensure adequate daily fluid intake Repeat basic metabolic panel in 3 to 5 days, please forward results to [facility] it application architect Dr. Gracie Lucas Then check basic metabolic panel every Monday and x3 weeks Follow-up with Dr. Lucas in 1 to 2 weeks Bowel obstruction (Acute) Developed worsening nausea and vomiting postop. KUB suggested bowel obstruction; NGT placed. General Surgery consulted. Bowel obstruction secondary to adhesions vs ileus. --Positive BMs, flatus --NG tube withdrawn December 20, 2018 Doing well, tolerating diet well Continues to improve, monitor Hypertension (Chronic) Usually takes propranolol and amlodipine. Resume p.o. propranolol, Continue amlodipine Blood pressure stable, monitor GERD (gastroesophageal reflux disease) (Chronic) Usually takes PPI. 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 Continue sodium bicarbonate supplements Management per above Urinary tract infection Noted to have gross hematuria via Cheng. UA showed 3+ blood, nitrite, leukocyte esterase, WBC's, RBC's, epithelial cells, but no bacteria. Afebrile. Urine culture growing gram negative bacilli- Proteus penneri and E coli, both sensitive to ceftriaxone. Received 7 days of IV ceftriaxone Anxiety / Depression Resumed duloxetine DVT prophylaxis SCD's ordered. heparin subcutaneous--> evaluate duration Disposition Discharge to [facility] Follow-up with [place] [facility] Dr. Thompson in 1 to 2 weeks. Follow-up with [facility] it application architect Dr. Lucas in 1 to 2 weeks. Medical follow-up with Dr. Garsia 1 week after discharge from acute rehab Endocrinology follow-up with [facility]. Total Time Total Time Spent Total Time Spent (In Minutes): 60 MINUTES Discharge Plan Discharge Items Patient Disposition: Transfer Inpatient Rehab Fac Reason For Visit: DKA Discharge Diagnosis: SUSPECTED DIABETIC KETOACIDOSIS, LEFT ANKLE FRACTURE STATUS POST SURGERY, ACUTE KIDNEY INJURY, SMALL BOWEL OBSTRUCTION-RESOLVED Activity: As commented below Activity Comment: None weightbearing left lower extremity; continue physical therapy and Occupational Therapy, fall precautions Weightbearing: Left non-weightbearing Non-emergency contact: Primary Care Provider, Surgeon and Inside Outside Sales Representative Call non-emergency contact if: you have any medication questions, your symptoms worsen, your pain is not controlled, your pain is worsening, you have a fever, your wound has increased redness and your wound has increased drainage Follow-up/Referrals: Gracie Lucas MD, PhD [Physician] - (In 1 to 2 weeks, please call office for appointment) Mode Thompson DO [Surgeon] - (Call to make a follow up with Dr. Thompson's clinic for 2 weeks post op.) Wiliam Garsia [Primary Care Provider] - Diet: Carb Consistent or DM2 and Heart Healthy Addtl Attending Provider Instructions: PLEASE REFER TO ACCOMPANYING DISCHARGE SUMMARY FOR FURTHER DETAILS. Addtl Project Controls Specialist Provider Instructions: ACTIVITY RECOMMENDATIONS: Limitations: No weight bearing to affected limb at all times. SPECIAL CARE INSTRUCTIONS: * Some drainage onto the dressing is normal and is no cause for alarm. * Some swelling is natural especially after walking. * When resting, keep your foot elevated above the level of your heart. * Call [facility] if you notice: -Increased drainage -Fever over 101 degrees F -Severe constant pain BANDAGE: * Leave bandage/cast in place unless otherwise directed. * Keep bandage/cast dry at all times. FOLLOW UP VISIT WITH DR. THOMPSON If appointment is not already scheduled: Please call [facility] after you get home today to schedule a follow-up appointment for [address] Thompson at . Pending Studies at Discharge: Yes Studies:: Repeat basic metabolic profile, please refer to discharge summary for details. Stand-Alone Forms: My [facility] FP Complete Skilled Items Patient informed of condition?: Yes DNR: No Discharge Level of Care: Acute rehab Communicable Disease: No Discharge Prognosis: Stable Lines: None Urinary Catheter: No Medications and DC Order Prescriptions: New propranolol 60 mg Capsule,Extended Release 24 Hr 60 mg PO BID 30 Days Qty: 60 RF: 1 sodium bicarbonate 650 mg Tablet 1,300 mg PO BID 30 Days Qty: 120 RF: 0 heparin, porcine (PF) 5,000 unit/0.5 mL Syringe 5,000 unit subcut Q8 30 Days Qty: 45 RF: 1 Novolog Flexpen U-100 Insulin 100 unit/mL (3 mL) Insulin Pen 1 units SC ACHS 30 Days Qty: 0.3 RF: 0 Lantus Solostar U-100 Insulin 100 unit/mL (3 mL) Insulin Pen 30 units SC QAM 30 Days Qty: 9 RF: 0 Continued atorvastatin 20 mg Tablet 20 mg PO HS RF: 0 amlodipine 10 mg Tablet 10 mg PO QAM RF: 0 esomeprazole magnesium 40 mg Capsule,Delayed Release(Dr/Ec) 40 mg PO QAM RF: 0 albuterol sulfate 90 mcg/actuation Hfa Aerosol Inhaler 2 puff INHALATION Q4H PRN (Reason: Shortness Of Breath) RF: 0 duloxetine [Cymbalta] 60 mg Capsule,Delayed Release(Dr/Ec) 60 mg PO QPM RF: 0 fenofibrate 160 mg Tablet 160 mg PO HS RF: 0 pregabalin [Lyrica] 100 mg Capsule 100 mg PO TID RF: 0 omega 9-loa-jmo-fish oil [Fish Oil] 1,000 mg (120 mg-180 mg) Capsule 1 tab PO BID RF: 0 baclofen 10 mg tablet 10 mg PO TID PRN (Reason: muscle spsms) RF: 0 fluticasone propionate [Flonase Allergy Relief] 50 mcg/actuation spray,suspension 2 spray intranasal DAILY RF: 0 Discontinued sodium bicarbonate 650 mg Tablet 3 tab PO QID RF: 0 propranolol 120 mg Capsule,Extended Release 24 Hr 120 mg PO BID RF: 0 insulin lispro [Humalog U-100 Insulin] 100 unit/mL Solution 30 unit SUBCUT TID RF: 0 Tresiba FlexTouch U-100 100 unit/mL (3 mL) Insulin Pen 120 unit SUBCUT HS RF: 0 magnesium chloride [Mag 64] 64 mg tablet,delayed release (DR/EC) 64 mg PO BID Qty: 60 RF: 0 ondansetron [Zofran ODT] 4 mg tablet,disintegrating 4 mg PO Q6H PRN (Reason: nausea and vomiting) Qty: 90 RF: 0 prochlorperazine maleate [Compazine] 10 mg tablet 10 mg PO TID PRN (Reason: Nausea) RF: 0 furosemide [Lasix] 20 mg tablet 20 mg PO DAILY RF: 0 pioglitazone [Actos] 30 mg tablet 30 mg PO DAILY RF: 0 Admission Data Admit Date/Time: 12/09/18 18:26 Attending Provider: Varghese Rivera Admit Provider: Mayur Hubbard Primary Care Provider: Wiliam Garsia Other Providers: Romel Kwan ; Lj Patel ; Mayur Hubbard ; Ed Lea ; Gracie Lucas ; Darian Barnes ; Matias Durbin ; Oscar Lraa ; Diane South ; Evangelina Mercado ; Wiliam Olvera ; Ed Goldsmith ; Anu Rucker ; Kerry Mendosa ; Mark Hassan ; Julio Cesar Dickens ; Raissa Plascencia ; Naomy Echeverria ; Kimberly Burciaga ; Ana Laura Valladares ; Frances Olmos
--- NOTE | 2018-12-25 15:00 | Pharmacy Report ---
Pharmacy Glycemic Short Note 2 - Date of Service December 25, 2018 - Glycemic Short BSG Results (Last 24 hours): 12/24/18 12/24/18 12/25/18 17:23 20:33 08:11 Glucose POC Glucose 107 H 88 211 H 12/25/18 12/25/18 08:25 12:00 Glucose 214 H POC Glucose 286 H OUTPATIENT ANTIDIABETIC REGIMEN: * Tresiba 120 units SQ qHS * Humalog 30 units SQ TID * Actos 30 mg PO daily * HbA1c: 12.6% 12/11/18 ASSESSMENT: * [place] received 40 units of basal and 38 units of bolus insulin yesterday for a total daily dose of 78 units * BSGs ranged from 88-199 mg/dL yesterday * BSGs trending downwards throughout the day indicating too much prandial coverage --> will loosen CF/CR for lunch, dinner, and HS to prevent hypo * Fasting BSG elevate this morning- increased dos of Lantus given per scale. * No significant changes to causes of insulin resistance PLAN FOR INPATIENT GLYCEMIC CONTROL: * Hold outpatient oral diabetes medications and Tresiba * Basal insulin: * Lantus 30-40 units SQ daily in AM based on BSG * Bolus insulin: -loosen coverage with lunch, dinner, and HS * NovoLog per scale ACHS or Q6hrs while NPO * Goal Range: Low 120 mg/dL - High 150 mg/dL (elevated goal range secondary to repeated lows and elevated A1c) * Correction Factor: 9 mg/dL/unit with breakfast and 10 mg/dL/unit with lunch, dinner, and HS * Nutritional / Prandial insulin per carb ratio of 1 unit per 5 grams CHO consumed with breakfast and 1 unit per 7g CHO for lunch, dinner, and HS Discharge Recommendations: A1c = 12.6 % on 12/11/18 (Goal A1c = < 7 % based on age and comorbidities. A reasonable A1C goal for many non- adults is A1c less than 7% ) * A1c is elevated most in part from patient noncompliance at times. May consider adding metformin as she has some element of insulin resistance. Recommendations for Patient A1c greater than 10% with a goal of <7% A1c is greater than or equal to 10% -> consider triple therapy with metformin + basal insulin + (GLP1-RA OR prandial insulin). May need to continue additional antidiabetic agent based on patient specific factors (efficacy, hypo risk, weight gain/loss, side effects, cost) Recommend: Consider adding Metformin XR 500mg PO daily with evening meal. Typically the XR formulation of metformin is better tolerated than the immediate release formulation. Continue to titrate metformin dosing upwards as recommended. Dosage increases should be made in increments of 500 mg weekly, up to 2,000 mg/day PO, given in divided doses. Doses above 2000 mg/day may be better tolerated if divided and given 3 times per day with meals. Max: 2,550 mg/day PO, in divided doses * B12 supplementation may be necessary with halfway metformin
[2018-12-25] MEDS ORDERED: INSULIN ASPART 100 UNITS/ML 3 ML PEN SC SCH (16:30)
[2018-12-26] MEDS ORDERED: INSULIN ASPART 100 UNITS/ML 3 ML PEN SC SCH (07:30)
--- NOTE | 2018-12-26 07:32 | Communication Note ---
Date of Service: December 25, 2018 Pt seen prior to DC. 13 days post op from ORIF left fibular fx. Dressings/splint removed. Wound without erythema but has some ecchymosis noted. Small amount of serous drainage from one small area mid portion of wound from where the suture resides. Redressed the wound and applied new posterior splint. Plan for f/u in [address] Gray's office for suture removal.
== END 2018-12-25 16:21 | DRG 492 ==
LOC: ED 15:53 → 1E 18:26 → SUATTDRO 18:26 → 1E 19:13 → 2S 12-11 07:37 → 2N 12-13 14:54 → 3N 12-23 15:47

== ENCOUNTER 2024-01-23 18:37 | Inpatient (IN) ==
[2024-01-23 19:51] LABS: Appearance Urine Clear (Clear); Bacteria Urine Automated None Seen (None Seen); Bilirubin Urine Negative (Negative); Blood Urine Negative (Negative); Cast Urine Automated 0-2 /lpf (0-2); Color Urine Yellow; Glucose Urine UA 1+ (Negative); Ketones Urine Negative (Negative); Leukocyte Esterase Urine 1+ (Negative); Nitrite Urine Negative (Negative); Protein Urine 2+ (Negative); RBC Urine Automated 0-2 /hpf (0-2); Specific Gravity Urine 1.015 (1.000-1.030); Urobilinogen Urine Negative (Negative); WBC Urine Automated 0-5 /hpf (0-5); pH Urine 5.5 (4.5-7.5)
[2024-01-23 20:25] LABS: Alanine Aminotransferase 34 U/L (7-52); Albumin Globulin Ratio 1.6 (0.9-2); Albumin Level 5.2 gm/dl (3.4-5.0); Alkaline Phosphatase 134 U/L (34-104); Anion Gap 10 (3-11); BUN Creatinine Ratio 27.2 (10-20); Blood Urea Nitrogen 67 mg/dl (6-23); Calcium 11.1 mg/dl (8.6-10.3); Carbon Dioxide 18 mmol/L (21-32); Chloride 103 mmol/L (98-107); Creatinine Clr Calc Pharmacy 30.2 ml/min; Globulin 3.2 gm/dl (2.5-4.0); Glucose 268 mg/dl (70-99(Fasting)); Phosphorus 3.9 mg/dl (2.5-4.9); Sodium 131 mmol/L (136-145); Total Protein 8.4 gm/dl (6.0-8.3)
[2024-01-23 20:52] LABS: HCO3 VBG 15 mmol/L; Oxygen Saturation VBG 92.8 %; PCO2 VBG 32 mmHg (38-50); PO2 VBG 69 mmHg; pH VBG 7.27 (7.36-7.41)
[2024-01-23 20:53] LABS: Basophils # (auto) 0.06 K/uL (0.00-0.20); Basophils % (auto) 0.6 %; Eosinophils # (auto) 0.26 K/uL (0.00-0.50); Eosinophils % (auto) 2.5 %; Hematocrit (blood only) 38.2 % (37.0-47.0); Hemoglobin 12.6 g/dl (12.0-16.0); Lymphocytes # (auto) 2.44 K/uL (1.20-3.40); Lymphocytes % (auto) 23.6 %; Mean Corpuscular Hemoglobin 30.1 pg (25.0-34.0); Mean Corpuscular Volume 91.4 fL (80.0-100.0); Mean Platelet Volume 10.5 fL (9.4-12.4); Monocytes # (auto) 1.12 K/uL (0.11-0.59); Monocytes % (auto) 10.9 %; Neutrophils # (auto) 6.34 K/uL (1.40-6.50); Neutrophils % (auto) 61.4 %; Platelet Count 193 K/uL (130-400); RDW Coefficient of Variation 15.5 % (11.5-14.5); RDW Standard Deviation 51.4 fL (36.4-46.3); Red Blood Count 4.18 M/uL (4.20-5.40); White Blood Count 10.32 K/ul (4.8-10.8)
[2024-01-23 20:53] LABS: Magnesium 1.6 mg/dl (1.7-2.4)
[2024-01-23 21:01] LABS: iSTAT Creatinine 2.5 mg/dl (0.6-1.3); iSTAT Hemoglobin 12.9 g/dl (12.0-16.0); iSTAT Ionized Calcium 1.45 mmol/l (1.12-1.32); iSTAT Potassium 4.8 mmol/L (3.3-5.0)
[2024-01-23] MEDS: SODIUM CHLORIDE 0.9% 1,000 ML IV ONE (21:02)
[2024-01-23 22:16] LABS: Potassium 4.2 mmol/L (3.5-5.1)
--- NOTE | 2024-01-24 00:06 | Emergency Department Note ---
History of Present Illness General Chief Complaint: Abnormal Labs/Diagnostic Testing Stated Complaint: ABN LABS Time Seen by Provider: 01/23/24 20:32 History of Present Illness Provider Complaint: + abnormal lab Returns today for: + called because of abnormal lab/test Description of abnormal result: Elevated creatinine Context: + called for abnormal lab result Associated symptoms: no fever, no chills, no chest pain, no shortness of breath, no rash, no malaise or no abdominal pain Home Medications Medication Instructions Recorded Confirmed Type albuterol sulfate 90 mcg/actuation 2 puff inhalation Q4H PRN 12/28/17 01/11/24 History aerosol inhaler Shortness Of Breath duloxetine 60 mg capsule,delayed 60 mg PO QAM 12/28/17 01/11/24 History release (Cymbalta) esomeprazole magnesium 40 mg 40 mg PO QAM 12/28/17 01/11/24 History capsule,delayed release omega 5-wrk-gmo-fish oil 1,000 mg 1 tab PO BID 12/28/17 01/11/24 History (120 mg-180 mg) capsule (Fish Oil) baclofen 10 mg tablet 10 mg PO TID PRN muscle spsms 12/09/18 01/11/24 History fluticasone propionate 50 2 spray intranasal DAILY PRN 03/15/19 01/11/24 History mcg/actuation nasal allergies spray,suspension (Flonase Allergy Relief) blood-glucose meter #1 ea 10/16/20 02/10/23 History Humalog KwikPen Insulin 100 30 unit (0.3 mL) subcut TID 90 05/10/21 01/11/24 Rx unit/mL subcutaneous (insulin days #30 mL lispro) sacubitril 97 mg-valsartan 103 mg 1 tab PO BID 10/14/21 01/11/24 History tablet (Entresto) buspirone 15 mg tablet 15 mg PO QAM 05/20/22 01/11/24 History carvedilol 25 mg tablet (Coreg) 50 mg PO Q12H 05/20/22 01/11/24 History chlorthalidone 25 mg tablet 25 mg PO QAM 05/20/22 01/11/24 History pantoprazole 40 mg tablet,delayed 40 mg PO QAM 05/20/22 01/11/24 History release (Protonix) furosemide 20 mg tablet 40 mg PO BID 05/30/22 01/11/24 History pregabalin 150 mg capsule (Lyrica) 150 mg PO TID #90 caps 05/30/22 01/11/24 Rx sodium bicarbonate 650 mg tablet 2,600 mg PO TID 05/30/22 01/11/24 History aspirin 325 mg tablet 325 mg PO QAM 01/11/24 01/11/24 History atorvastatin 80 mg tablet 80 mg PO QAM 01/11/24 01/11/24 History cholecalciferol (vitamin D3) 50 50 mcg PO QAM 01/11/24 01/11/24 History mcg (2,000 unit) capsule empagliflozin 25 mg tablet 25 mg PO QAM 01/11/24 01/11/24 History (Jardiance) insulin degludec 200 unit/mL (3 120 unit subcut QAM 01/11/24 01/11/24 History mL) subcutaneous pen (Tresiba FlexTouch U-200 insulin) Allergies Allergy/AdvReac Type Severity Reaction Status Date / Time bee venom protein (honey bee) Allergy Intermediate RED, SHORT Verified 01/11/24 14:27 OF BREATH No Known Drug Allergies Allergy Unknown NKDA Verified 01/11/24 14:27 Past Med/Surg History Problem List (Updated 01/24/24 @ 00:05 by Brian Galeano MD) Acute kidney injury superimposed on CKD (Acute) Encounter for pre-operative examination Depression with anxiety Hyperparathyroidism 05/20/22 Chronic renal disease, stage 3, moderately decreased glomerular filtration rate (GFR) between 30-59 mL/min/1.73 square meter Diabetic nephropathy associated with type 2 diabetes mellitus Diabetes type 2, uncontrolled Diabetic peripheral neuropathy associated with type 2 diabetes mellitus 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/15/19 Dysesthesia 03/15/19 Dyslipidemia Hypercalcemia 03/15/19 Hypertension Nephrolithiasis Vitamin D deficiency Acidosis, metabolic 10/16/20 Anemia of chronic disease GERD (gastroesophageal reflux disease) Medical History Cervical disc herniation MRI 10/2023, limited rom of neck Anemia of chronic disease has required blood transfusions in past-last transfusion last year Dyslipidemia Hypertension controlled, stable per pt History of nephrolithiasis x 1, passsed on own Diabetic peripheral neuropathy GERD (gastroesophageal reflux disease) controlled, stable per pt Diabetes mellitus, type 2 IDDM Chronic kidney disease, stage [address] dwight colon at [facility] Hyperparathyroidism Depression with anxiety History of endometriosis History of renal dialysis (04/2017) - [facility] - ARF 2/2 DKA Hx of Clostridium difficile infection 2012 - TREATED Chronic nausea Surgical History History of esophagogastroduodenoscopy (EGD) Hx of colonoscopy History of open reduction and internal fixation (ORIF) procedure (2018) left fibula Hx of tracheostomy (2013) R/T COMPLICATIONS AFTER ILEOSTOMY REVERSAL SURGERY IN 2011; HAS SINCE BEEN REVERSED History of rotator cuff surgery (2017) RT History of lumbar spinal fusion (2006) History of reversal of ileostomy (2012) History of ileostomy (2012) Status post cholecystectomy (2017) "cholelithiasis" Status post partial colectomy (2012) "for C diff colitis" Family History Mother Diabetes Social History Smoking Status: Never smoker Tobacco Type: Cigarettes Cigarettes Per Day: 5; Second Hand Exposure: No; Do You Dip or Chew Tobacco: No; Hx Alcohol Use: No Hx Substance Use: Yes Last Used Substance Other:: medical marijuana daily (Advised) Preferred Language: [place] Communication Ability: Effective Manager Of Photography Required: No Beliefs That Will Affect Care: None marital status: Current Living Situation: Spouse Feels Safe at Home: Yes Assistive Devices: None Physical Exam 2 Vital Signs: Vital Signs - 24 hr 01/23/24 18:55 01/23/24 20:42 01/23/24 21:03 Temperature 36.7 C Temperature Source Temporal Artery Sc an Pulse Rate 90 94 H Pulse Rate [Left F teresa] 97 H Pulse Rhythm [Left Finger] Regular Pulse Strength [Le ft Finger] Normal Respiratory Rate 20 17 Respiratory Effort / Characteristics Non-Labored Sponta neous Non-Labored Respiratory Depth Normal Normal Respiratory Patter n Regular Regular Blood Pressure 148/91 H Blood Pressure [Le ft Arm] 102/78 Blood Pressure Angle n 110 Blood Pressure Angle n [Left Arm] 86 Blood Pressure Pos ition Sitting Blood Pressure Pos ition [Left Arm] Lying Pulse Oximetry 98 96 Oxygen Delivery Me thod Room Air Room Air Sepsis Recent Feve r Within 48 Hours No Sepsis New/Unexpla ined Change in Men adali Status No Sepsis Action Take n by Nursing No Action Required 01/23/24 23:02 Temperature Temperature Source Pulse Rate Pulse Rate [Left F teresa] 88 Pulse Rhythm [Left Finger] Regular Pulse Strength [Le ft Finger] Normal Respiratory Rate 20 Respiratory Effort / Characteristics Non-Labored Respiratory Depth Normal Respiratory Patter n Regular Blood Pressure Blood Pressure [Le ft Arm] 122/68 Blood Pressure Angle n Blood Pressure Angle n [Left Arm] 86 Blood Pressure Pos ition Blood Pressure Pos ition [Left Arm] Lying Pulse Oximetry 95 Oxygen Delivery Me thod Room Air Sepsis Recent Feve r Within 48 Hours Sepsis New/Unexpla ined Change in Men adali Status Sepsis Action Take n by Nursing Physical Exam: physical Exam GENERAL: oriented to person, place, and time. appears well-developed and well- nourished. HENT: Exam performed. - Head: Normocephalic and atraumatic. EYES: Conjunctivae and EOM are normal. Right eye exhibits no discharge. Left eye exhibits no discharge. No scleral icterus. NECK: Normal range of motion. Neck supple. No JVD present. CV: Normal rate, regular rhythm, normal heart sounds and intact distal pulses. There is no peripheral edema. Palpable radial pulses bue. PULM/CHEST: Effort normal and breath sounds normal. No respiratory distress. No stridor. no wheezes. no rales. ABD: The abdomen is soft. There is no tenderness. NEURO: Motor and sensation grossly intact. SKIN: Skin is warm and dry. He is not diaphoretic. PSYCH: normal mood and affect. Behavior is normal. Judgment and thought content normal. Course Course 2031: The patient was evaluated in room B12. A complete history and physical exam was performed Administered Medications Discontinued Medications Sodium Chloride (Nss) 1,000 mls @ 999 mls/hr IV .Q1H1M ONE Stop: 01/23/24 20:27 Last Infusion: 01/23/24 23:19 Dose: Infused Documented By: Admin: 01/23/24 21:02 Dose: 999 mls/hr Documented By: SHARI Medical Decision Making Medical Records Attestation: I reviewed the patient's medical records. External medical records reviewed. Patient had blood work today which showed a potassium of 5.3 BUN is 66 and creatinine 2.51. Laboratory Data Attestation: I reviewed the patient's lab results. 01/23/24 20:31 01/23/24 21:44 Lab Results 01/23/24 01/23/24 01/23/24 Range/Units 19:33 19:49 20:31 WBC Cancelled 10.32 RBC Cancelled 4.18 L Hgb Cancelled 12.6 POC Hgb (12.0-16.0) g/dl Hct Cancelled 38.2 POC Hct (37-47) % MCV Cancelled 91.4 MCH Cancelled 30.1 MCHC Cancelled 33.0 RDW Std Deviation Cancelled 51.4 H RDW Coeff of Chidi Cancelled 15.5 H Plt Count Cancelled 193 MPV Cancelled 10.5 Immature Gran % (Auto) Cancelled 1.0 Neut % (Auto) Cancelled 61.4 Lymph % (Auto) Cancelled 23.6 Camp % (Auto) Cancelled 10.9 Eos % (Auto) Cancelled 2.5 Baso % (Auto) Cancelled 0.6 Neut # (Auto) Cancelled 6.34 Lymph # (Auto) Cancelled 2.44 Camp # (Auto) Cancelled 1.12 H Eos # (Auto) Cancelled 0.26 Baso # (Auto) Cancelled 0.06 Immature Gran # (Auto) Cancelled 0.10 Absolute Nucleated RBC Cancelled Nucleated RBC % (auto) Cancelled Neutrophils % (Manual) Cancelled Band Neutrophils % Cancelled Lymphocytes % (Manual) Cancelled Prolymphocyte % Cancelled Reactive Lymphs % (Man) Cancelled Monocytes % (Manual) Cancelled Eosinophils % (Manual) Cancelled Basophils % (Manual) Cancelled Metamyelocytes % (Man) Cancelled Myelocytes % (Man) Cancelled Promyelocytes % (Man) Cancelled Blast Cells % (Manual) Cancelled Plasma Cell % (Manual) Cancelled Other Cells % Cancelled Nucleated RBC % Cancelled Neutrophils # (Manual) Cancelled Band Neutrophils # Cancelled Total Absolute Neuts Cancelled Lymphocytes # (Manual) Cancelled Prolymphocyte # Cancelled Reactive Lymphs # Cancelled Total Abs Lymphocytes Cancelled Monocytes # (Manual) Cancelled Eosinophils # (Manual) Cancelled Basophils # (Manual) Cancelled Metamyelocytes # (Man) Cancelled Myelocytes # (Manual) Cancelled Promyelocytes # (Man) Cancelled Blast Cells # (Man) Cancelled Plasma Cell # (Manual) Cancelled Other Cells # Cancelled Nucleated RBCs # (Man) Cancelled Hypersegmented Neuts Cancelled Hyposegmented Neuts Cancelled Hypogranular Neuts Cancelled Large Granular Lymphs Cancelled # Lrg Granular Lymphs Cancelled Hairy Cells Cancelled Smudge Cells Cancelled Toxic Granulation Cancelled Toxic Vacuolation Cancelled Dohle Bodies Cancelled [place] Rods Cancelled Platelet Estimate Cancelled Hypogranular Platelets Cancelled Giant Platelets Cancelled Platelet Satelliting Cancelled RBC Morphology Cancelled Polychromasia Cancelled Hypochromasia Cancelled Poikilocytosis Cancelled Basophilic Stippling Cancelled Anisocytosis Cancelled Microcytosis Cancelled Macrocytosis Cancelled Spherocytes Cancelled Pappenheimer Bodies Cancelled Sickle Cells Cancelled Target Cells Cancelled Tear Drop Cells Cancelled Ovalocytes Cancelled Stomatocytes Cancelled [place] Bodies Cancelled Echinocytes Cancelled Acanthocytes (Spur) Cancelled Rouleaux Cancelled RBC Agglutinates Cancelled Schistocytes Cancelled Sezary Cell Cancelled VBG pH 7.27 L (7.36-7.41) VBG pCO2 32 L (38-50) mmHg VBG pO2 69 mmHg VBG HCO3 15 mmol/L VBG O2 Saturation 92.8 % VBG Base Excess -11.0 mEq/L POC Sodium (135-144) mmol/L Sodium 131 L (136-145) mmol/L POC Potassium (3.3-5.0) mmol/L Potassium TNP POC Chloride (101-112) mmol/L Chloride 103 (98-107) mmol/L Carbon Dioxide 18 L (21-32) mmol/L POC Total CO2 (24-31) mmol/L Anion Gap 10 (3-11) POC Anion Gap (16-25) mmol/L POC BUN (7-18) mg/dl BUN 67 H (6-23) mg/dl Creatinine 2.46 H (0.6-1.2) mg/dl POC Creatinine (0.6-1.3) mg/dl Est Cr Clr Drug Dosing 30.2 ml/min eGFR 23.30 BUN/Creatinine Ratio 27.2 H (10-20) Glucose 268 H (70-99(Fasting)) mg/dl POC Glucose 288 H (70-99) mg/dl POC Glucose (other) (70-99) mg/dl Calcium 11.1 H (8.6-10.3) mg/dl POC Ioniz Calcium Dustin (1.12-1.32) mmol/l Phosphorus 3.9 (2.5-4.9) mg/dl Magnesium 1.6 L (1.7-2.4) mg/dl Total Bilirubin 0.0 L (0.2-1.0) mg/dl AST TNP ALT 34 (7-52) U/L Alkaline Phosphatase 134 H (34-104) U/L Total Protein 8.4 H (6.0-8.3) gm/dl Albumin 5.2 H (3.4-5.0) gm/dl Globulin 3.2 (2.5-4.0) gm/dl Albumin/Globulin Ratio 1.6 (0.9-2) Urine Color Yellow Urine Appearance Clear (Clear) Urine pH 5.5 (4.5-7.5) Ur Specific [place] 1.015 (1.000-1.030) Urine Protein 2+ H (Negative) Urine Glucose (UA) 1+ H (Negative) Urine Ketones Negative (Negative) Urine Blood Negative (Negative) Urine Nitrite Negative (Negative) Urine Bilirubin Negative (Negative) Urine Urobilinogen Negative (Negative) Ur Leukocyte Esterase 1+ H (Negative) Urine WBC (Auto) 0-5 (0-5) /hpf Urine RBC (Auto) 0-2 (0-2) /hpf U Hyaline Cast (Auto) 0-2 (0-2) /lpf U Epithel Cells (Auto) 3-5 H (0-2) /hpf Urine Bacteria (Auto) None Seen (None Seen) Blood Parasites ID Cancelled 01/23/24 01/23/24 01/23/24 Range/Units 20:45 20:49 21:44 WBC RBC Hgb POC Hgb 12.9 (12.0-16.0) g/dl Hct POC Hct 38 (37-47) % MCV MCH MCHC RDW Std Deviation RDW Coeff of Chidi Plt Count MPV Immature Gran % (Auto) Neut % (Auto) Lymph % (Auto) Camp % (Auto) Eos % (Auto) Baso % (Auto) Neut # (Auto) Lymph # (Auto) Camp # (Auto) Eos # (Auto) Baso # (Auto) Immature Gran # (Auto) Absolute Nucleated RBC Nucleated RBC % (auto) Neutrophils % (Manual) Band Neutrophils % Lymphocytes % (Manual) Prolymphocyte % Reactive Lymphs % (Man) Monocytes % (Manual) Eosinophils % (Manual) Basophils % (Manual) Metamyelocytes % (Man) Myelocytes % (Man) Promyelocytes % (Man) Blast Cells % (Manual) Plasma Cell % (Manual) Other Cells % Nucleated RBC % Neutrophils # (Manual) Band Neutrophils # Total Absolute Neuts Lymphocytes # (Manual) Prolymphocyte # Reactive Lymphs # Total Abs Lymphocytes Monocytes # (Manual) Eosinophils # (Manual) Basophils # (Manual) Metamyelocytes # (Man) Myelocytes # (Manual) Promyelocytes # (Man) Blast Cells # (Man) Plasma Cell # (Manual) Other Cells # Nucleated RBCs # (Man) Hypersegmented Neuts Hyposegmented Neuts Hypogranular Neuts Large Granular Lymphs # Lrg Granular Lymphs Hairy Cells Smudge Cells Toxic Granulation Toxic Vacuolation Dohle Bodies [place] Rods Platelet Estimate Hypogranular Platelets Giant Platelets Platelet Satelliting RBC Morphology Polychromasia Hypochromasia Poikilocytosis Basophilic Stippling Anisocytosis Microcytosis Macrocytosis Spherocytes Pappenheimer Bodies Sickle Cells Target Cells Tear Drop Cells Ovalocytes Stomatocytes [place] Bodies Echinocytes Acanthocytes (Spur) Rouleaux RBC Agglutinates Schistocytes Sezary Cell VBG pH (7.36-7.41) VBG pCO2 (38-50) mmHg VBG pO2 mmHg VBG HCO3 mmol/L VBG O2 Saturation % VBG Base Excess mEq/L POC Sodium 134 L (135-144) mmol/L Sodium (136-145) mmol/L POC Potassium 4.8 (3.3-5.0) mmol/L Potassium Cancelled 4.2 D POC Chloride 113 H (101-112) mmol/L Chloride (98-107) mmol/L Carbon Dioxide (21-32) mmol/L POC Total CO2 16 L (24-31) mmol/L Anion Gap (3-11) POC Anion Gap 11.0 L (16-25) mmol/L POC BUN 65 H (7-18) mg/dl BUN (6-23) mg/dl Creatinine (0.6-1.2) mg/dl POC Creatinine 2.5 H (0.6-1.3) mg/dl Est Cr Clr Drug Dosing ml/min eGFR BUN/Creatinine Ratio (10-20) Glucose (70-99(Fasting)) mg/dl POC Glucose (70-99) mg/dl POC Glucose (other) 253 H (70-99) mg/dl Calcium (8.6-10.3) mg/dl POC Ioniz Calcium Dustin 1.45 H (1.12-1.32) mmol/l Phosphorus (2.5-4.9) mg/dl Magnesium (1.7-2.4) mg/dl Total Bilirubin (0.2-1.0) mg/dl AST Cancelled 20 ALT (7-52) U/L Alkaline Phosphatase (34-104) U/L Total Protein (6.0-8.3) gm/dl Albumin (3.4-5.0) gm/dl Globulin (2.5-4.0) gm/dl Albumin/Globulin Ratio (0.9-2) Urine Color Urine Appearance (Clear) Urine pH (4.5-7.5) Ur Specific [place] (1.000-1.030) Urine Protein (Negative) Urine Glucose (UA) (Negative) Urine Ketones (Negative) Urine Blood (Negative) Urine Nitrite (Negative) Urine Bilirubin (Negative) Urine Urobilinogen (Negative) Ur Leukocyte Esterase (Negative) Urine WBC (Auto) (0-5) /hpf Urine RBC (Auto) (0-2) /hpf U Hyaline Cast (Auto) (0-2) /lpf U Epithel Cells (Auto) (0-2) /hpf Urine Bacteria (Auto) (None Seen) Blood Parasites ID [id number] Narrative Cardiac monitoring: An order was placed for continuous cardiac monitoring. The monitor shows a rate of 90 with sinus rhythm interpreted by me Patient's creatinine 2.46. Baseline 1.8. Patient admitted to the [facility] Hospitalist team Impression & Plan Acute kidney injury superimposed on CKD Discharge Plan Visit Data Chief Complaint: Abnormal Labs/Diagnostic Testing Stated Complaint: ABN LABS ED Provider: Brian Galeano Discharge Problem: Acute kidney injury superimposed on CKD Patient Disposition: Admitted As Inpatient Forms Stand Alone Forms: My [facility] Prescriptions Prescriptions: No Action insulin lispro [Humalog KwikPen Insulin] 100 unit/mL insulin pen 30 unit subcut TID 90 Days Qty: 30 3RF furosemide 20 mg tablet 40 mg PO BID pregabalin [Lyrica] 150 mg capsule 150 mg PO TID Qty: 90 0RF sodium bicarbonate 650 mg tablet 2,600 mg PO TID pantoprazole [Protonix] 40 mg tablet,delayed release (DR/EC) 40 mg PO QAM chlorthalidone 25 mg tablet 25 mg PO QAM (DME) blood-glucose meter Misc See Rx Instructions .ROUTE .MEDSUPPLY Qty: 1 Rx Instructions: Reli-On brand. Test blood sugar three times daily Entresto 97-103 mg tablet 1 tab PO BID buspirone 15 mg tablet 15 mg PO QAM carvedilol [Coreg] 25 mg tablet 50 mg PO Q12H Rx Instructions: must administer with a meal/food esomeprazole magnesium 40 mg Capsule,Delayed Release(Dr/Ec) 40 mg PO QAM albuterol sulfate 90 mcg/actuation Hfa Aerosol Inhaler 2 puff INHALATION Q4H PRN (Reason: Shortness Of Breath) duloxetine [Cymbalta] 60 mg Capsule,Delayed Release(Dr/Ec) 60 mg PO QAM omega 4-ixs-bqo-fish oil [Fish Oil] 1,000 mg (120 mg-180 mg) Capsule 1 tab PO BID baclofen 10 mg tablet 10 mg PO TID PRN (Reason: muscle spsms) fluticasone propionate [Flonase Allergy Relief] 50 mcg/actuation spray,suspension 2 spray intranasal DAILY PRN (Reason: allergies) atorvastatin 80 mg tablet 80 mg PO QAM aspirin 325 mg tablet 325 mg PO QAM cholecalciferol (vitamin D3) 50 mcg (2,000 unit) capsule 50 mcg PO QAM Rx Instructions: take with largest meal of the day. insulin degludec [Tresiba FlexTouch U-200] 200 unit/mL (3 mL) insulin pen 120 unit subcut QAM Jardiance 25 mg tablet 25 mg PO QAM Referrals Referrals: Wiliam Garsia [Primary Care Provider] -
[2024-01-24] MEDS: MAGNESIUM SULFATE / D5W 1 GM/100 ML BAG IV SCH (00:22)
[2024-01-24] MEDS: HYDROmorphone INJ 0.5 MG/0.5 ML SYR IV STA (01:31)
[2024-01-24] MEDS ORDERED: GLUCOSE 40% GEL 15 GM TUBE PO PRN (01:41)
[2024-01-24] MEDS ORDERED: PHARMACY GLYCEMIC MGMT CONSULT PRN (01:41)
[2024-01-24] MEDS ORDERED: DEXTROSE 50% 50 ML SYRINGE IV PRN (01:41)
[2024-01-24] MEDS ORDERED: POLYETHYLENE (MIRALAX) 17 GM PACK PO PRN (01:41)
[2024-01-24] MEDS ORDERED: NITROGLYCERIN SL 0.4 MG/TAB TAB SL PRN (01:41)
[2024-01-24] MEDS ORDERED: CARBOHYDRATES FOR HYPOGLYCEMIA PO PRN (01:41)
[2024-01-24] MEDS ORDERED: GLUCOSE 10 TAB/TUBE PO PRN (01:41)
[2024-01-24] MEDS ORDERED: GLUCAGON FOR INJ 1 MG VIAL SQ PRN (01:41)
[2024-01-24] MEDS ORDERED: PROCHLORPERAZINE MALEATE 10 MG TAB PO PRN (01:41)
[2024-01-24] MEDS: SODIUM CHLORIDE 0.9% 1,000 ML IV SCH (02:03)
--- NOTE | 2024-01-24 03:22 | History & Physical Report ---
Date of Service January 24, 2024 Assessment & Plan (1) Acute kidney injury superimposed on CKD: Plan: 48-year-old female with past medical history significant for uncontrolled type 1 diabetes, diabetic polyneuropathy, electrolyte abnormalities, history of pneumo tera, history of acute respiratory failure, history of hypertension, history of peptic ulcers, history of C. difficile, history of malnutrition moderate degree, history of diarrhea, CKD stage III, migraine, history of colectomy for C. difficile colitis, history of tobacco abuse comes in because of OK and metabolic acidosis. Patient is scheduled for neck surgery and preop labs today shows potassium 5.3, creatinine 2.5, serum CO2 19 and advised to get admitted. Repeat potassium is 4.2. Currently resting comfortably and hemodynamically stable. Denies any headache. No dizziness. No blurred visions. No runny nose or sore throat. No cough. No difficulty swallowing. No chest pain or shortness of breath, no nausea. No abdominal pain. Normal bowel and bladder movements. Ambulates okay. As per the nephrology outpatient notes patient has labile renal function ranging from CKD stage III-IV and often challenging to control hypertension and metabolic acidosis of unclear etiology with multiple hospitalization and OK on CKD. OK and CKD stage III Baseline creatinine 1.7 Presented with creatinine of 2.5 Will hold Entresto, Lasix and chlorthalidone Gentle fluids normal saline 50 mill per hour for 1 L Follow repeat labs Nephrology consult in a.m. further recommendations Chronic metabolic acidosis Continue sodium bicarb tablets Follow repeat labs Nephrology consult Diabetes Continue long-acting insulin Sliding scale Glycemic pharmacy consult Follow HbA1c levels Hypertension continue amlodipine and Coreg Holding chlorthalidone and Entresto IV hydralazine as needed Will monitor Hyperuricemia On allopurinol History of hyperlipidemia On statin Hypercalcemia Seems chronic on gentle fluids Follow PTH Nephrology consult for further recommendations Peptic ulcer disease On Protonix History of C. difficile colitis and status post colectomy DVT prophylaxis Heparin subcu Disposition Telemetry Full code History of Present Illness Chief Complaint: OK and metabolic acidosis Primary Care Provider: Wiliam Garsia 48-year-old female with past medical history significant for uncontrolled type 1 diabetes, diabetic polyneuropathy, electrolyte abnormalities, history of pneumonia, history of acute respiratory failure, history of hypertension, history of peptic ulcers, history of C. difficile, history of malnutrition moderate degree, history of diarrhea, CKD stage III, migraine, history of colectomy for C. difficile colitis, history of tobacco abuse comes in because of OK and metabolic acidosis. Patient is scheduled for neck surgery and preop labs today shows potassium 5.3, creatinine 2.5, serum CO2 19 and advised to get admitted. Repeat potassium is 4.2. Currently resting comfortably and hemodynamically stable. Denies any headache. No dizziness. No blurred visions. No runny nose or sore throat. No cough. No difficulty swallowing. No chest pain or shortness of breath, no nausea. No abdominal pain. Normal bowel and bladder movements. Ambulates okay. As per the nephrology outpatient notes patient has labile renal function ranging from CKD stage III-IV and often challenging to control hypertension and metabolic acidosis of unclear etiology with multiple hospitalization and OK on CKD. Past medical history. As mentioned above Past surgical history. Breast capsule of tummy, EGD, expiratory laparotomy, laparoscopic ileostomy, spinal fusion surgery, spinal implant, small bowel endoscopy with biopsy. Social history. . Quit smoking 2023. Smoked 0.5 pack a day for 16 years. No alcohol use. No drug use. Family history. No family history on file. Allergies Allergy/AdvReac Type Severity Reaction Status Date / Time bee venom protein (honey bee) Allergy Intermediate RED, SHORT Verified 01/11/24 14:27 OF BREATH No Known Drug Allergies Allergy Unknown NKDA Verified 01/11/24 14:27 Home Medications Medication Instructions Recorded Confirmed Type allopurinol 300 mg tablet 300 mg PO DAILY 01/24/24 01/24/24 History amlodipine 10 mg tablet 10 mg PO DAILY 01/24/24 01/24/24 History aspirin 325 mg tablet 325 mg PO DAILY 01/24/24 01/24/24 History atorvastatin 20 mg tablet 80 mg PO DAILY 01/24/24 01/24/24 History baclofen 10 mg tablet 10 mg PO TID 01/24/24 01/24/24 History buspirone 15 mg tablet 15 mg PO DAILY 01/24/24 01/24/24 History carvedilol 25 mg tablet (Coreg) 50 mg PO BID 01/24/24 01/24/24 History chlorthalidone 25 mg tablet 25 mg PO DAILY 01/24/24 01/24/24 History duloxetine 60 mg capsule,delayed 60 mg PO DAILY 01/24/24 01/24/24 History release empagliflozin 25 mg tablet 25 mg PO DAILY 01/24/24 01/24/24 History (Jardiance) eszopiclone 1 mg tablet 1 mg PO HS 01/24/24 01/24/24 History furosemide 40 mg tablet (Lasix) 40 mg PO UD 01/24/24 01/24/24 History insulin degludec 200 unit/mL (3 120 unit subcut DAILY 01/24/24 01/24/24 History mL) subcutaneous pen (Tresiba FlexTouch U-200 insulin) insulin lispro 100 unit/mL 30 sliding scale dose subcut AC 01/24/24 01/24/24 History subcutaneous pen omega [id number]-fish oil 1,000 mg 1 cap PO DAILY 01/24/24 01/24/24 History (120 mg-180 mg) capsule (Fish Oil) pantoprazole 40 mg tablet,delayed 40 mg PO DAILY 01/24/24 01/24/24 History release (Protonix) pregabalin 150 mg capsule 150 mg PO TID 01/24/24 01/24/24 History prochlorperazine maleate 10 mg 10 mg PO TID PRN Nausea And 01/24/24 01/24/24 History tablet Vomiting sacubitril 97 mg-valsartan 103 mg 1 tab PO BID 01/24/24 01/24/24 History tablet (Entresto) sodium bicarbonate 650 mg tablet 1,950 mg PO TID 01/24/24 01/24/24 History Past Med/Surg History Problem List (Updated 01/24/24 @ 00:05 by Brian Galeano MD) Acute kidney injury superimposed on CKD (Acute) Encounter for pre-operative examination Depression with anxiety Hyperparathyroidism 05/20/22 Chronic renal disease, stage 3, moderately decreased glomerular filtration rate (GFR) between 30-59 mL/min/1.73 square meter Diabetic nephropathy associated with type 2 diabetes mellitus Diabetes type 2, uncontrolled Diabetic peripheral neuropathy associated with type 2 diabetes mellitus 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/15/19 Dysesthesia 03/15/19 Dyslipidemia Hypercalcemia 03/15/19 Hypertension Nephrolithiasis Vitamin D deficiency Acidosis, metabolic 10/16/20 Anemia of chronic disease GERD (gastroesophageal reflux disease) Medical History Cervical disc herniation MRI 10/2023, limited rom of neck Anemia of chronic disease has required blood transfusions in past-last transfusion last year Dyslipidemia Hypertension controlled, stable per pt History of nephrolithiasis x 1, passsed on own Diabetic peripheral neuropathy GERD (gastroesophageal reflux disease) controlled, stable per pt Diabetes mellitus, type 2 IDDM Chronic kidney disease, stage [address] dwight colon at [facility] Hyperparathyroidism Depression with anxiety History of endometriosis History of renal dialysis (04/2017) - [facility] - ARF 2/2 DKA Hx of Clostridium difficile infection 2012 - TREATED Chronic nausea Surgical History History of esophagogastroduodenoscopy (EGD) Hx of colonoscopy History of open reduction and internal fixation (ORIF) procedure (2018) left fibula Hx of tracheostomy (2013) R/T COMPLICATIONS AFTER ILEOSTOMY REVERSAL SURGERY IN 2011; HAS SINCE BEEN REVERSED History of rotator cuff surgery (2017) RT History of lumbar spinal fusion (2006) History of reversal of ileostomy (2012) History of ileostomy (2012) Status post cholecystectomy (2017) "cholelithiasis" Status post partial colectomy (2012) "for C diff colitis" Family History Mother Diabetes Social History Smoking Status: Former smoker Tobacco Type: Cigarettes Cigarettes Per Day: 5; Second Hand Exposure: No; Do You Dip or Chew Tobacco: No; Hx Alcohol Use: No Hx Substance Use: No Preferred Language: Kyrgyz Communication Ability: Effective 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 ENT- oropharynx clear Neck- supple, no JVD. Lungs- clear to auscultation no wheezing or crackles Heart- regular rhythm; no murmur, no gallop. Abdomen- normal bowel sounds, soft, nontender, no distension. Extremities- no pretibial edema, no erythema seen Neuro- alert, oriented PERRL, no facial palsy; no dysarthria; moves extremities Results & Data Results & Data Vital Signs (Past 12 Hours) Vital Signs Temp Pulse Pulse Resp BP BP Pulse Ox 01/24/24 00:38 87 01/23/24 23:02 88 20 122/68 95 01/23/24 21:03 97 H 17 102/78 96 01/23/24 20:42 94 H 01/23/24 18:55 36.7 C 90 20 148/91 H 98 O2 Del Method 01/24/24 00:38 01/23/24 23:02 Room Air 01/23/24 21:03 Room Air 01/23/24 20:42 01/23/24 18:55 Room Air Diagnostic Findings Laboratory Results WBC 10.32 K/ul (4.8-10.8) 01/23/24 20:31 RBC 4.18 M/uL (4.20-5.40) L 01/23/24 20:31 Hgb 12.6 g/dl (12.0-16.0) 01/23/24 20:31 POC Hgb 12.9 g/dl (12.0-16.0) 01/23/24 20:49 Hct 38.2 % (37.0-47.0) 01/23/24 20:31 POC Hct 38 % (37-47) 01/23/24 20:49 MCV 91.4 fL (80.0-100.0) 01/23/24 20:31 MCH 30.1 pg (25.0-34.0) 01/23/24 20:31 MCHC 33.0 g/dL (32.0-36.0) 01/23/24 20:31 RDW Std Deviation 51.4 fL (36.4-46.3) H 01/23/24 20:31 RDW Coeff of Chidi 15.5 % (11.5-14.5) H 01/23/24 20:31 Plt Count 193 K/uL (130-400) 01/23/24 20:31 MPV 10.5 fL (9.4-12.4) 01/23/24 20:31 Immature Gran % (Auto) 1.0 % 01/23/24 20:31 Neut % (Auto) 61.4 % 01/23/24 20:31 Lymph % (Auto) 23.6 % 01/23/24 20:31 [place] % (Auto) 10.9 % 01/23/24 20:31 Eos % (Auto) 2.5 % 01/23/24 20:31 Baso % (Auto) 0.6 % 01/23/24 20:31 Neut # (Auto) 6.34 K/uL (1.40-6.50) 01/23/24 20:31 Lymph # (Auto) 2.44 K/uL (1.20-3.40) 01/23/24 20:31 [place] # (Auto) 1.12 K/uL (0.11-0.59) H 01/23/24 20:31 Eos # (Auto) 0.26 K/uL (0.00-0.50) 01/23/24 20:31 Baso # (Auto) 0.06 K/uL (0.00-0.20) 01/23/24 20:31 Immature Gran # (Auto) 0.10 K/uL (0.01-0.20) 01/23/24 20:31 Absolute Nucleated RBC Cancelled 01/23/24 19:33 Nucleated RBC % (auto) Cancelled 01/23/24 19:33 Neutrophils % (Manual) Cancelled 01/23/24 19:33 Band Neutrophils % Cancelled 01/23/24 19:33 Lymphocytes % (Manual) Cancelled 01/23/24 19:33 Prolymphocyte % Cancelled 01/23/24 19:33 Reactive Lymphs % (Man) Cancelled 01/23/24 19:33 Monocytes % (Manual) Cancelled 01/23/24 19:33 Eosinophils % (Manual) Cancelled 01/23/24 19:33 Basophils % (Manual) Cancelled 01/23/24 19:33 Metamyelocytes % (Man) Cancelled 01/23/24 19:33 Myelocytes % (Man) Cancelled 01/23/24 19:33 Promyelocytes % (Man) Cancelled 01/23/24 19:33 Blast Cells % (Manual) Cancelled 01/23/24 19:33 Plasma Cell % (Manual) Cancelled 01/23/24 19:33 Other Cells % Cancelled 01/23/24 19:33 Nucleated RBC % Cancelled 01/23/24 19:33 Neutrophils # (Manual) Cancelled 01/23/24 19:33 Band Neutrophils # Cancelled 01/23/24 19:33 Total Absolute Neuts Cancelled 01/23/24 19:33 Lymphocytes # (Manual) Cancelled 01/23/24 19:33 Prolymphocyte # Cancelled 01/23/24 19:33 Reactive Lymphs # Cancelled 01/23/24 19:33 Total Abs Lymphocytes Cancelled 01/23/24 19:33 Monocytes # (Manual) Cancelled 01/23/24 19:33 Eosinophils # (Manual) Cancelled 01/23/24 19:33 Basophils # (Manual) Cancelled 01/23/24 19:33 Metamyelocytes # (Man) Cancelled 01/23/24 19:33 Myelocytes # (Manual) Cancelled 01/23/24 19:33 Promyelocytes # (Man) Cancelled 01/23/24 19:33 Blast Cells # (Man) Cancelled 01/23/24 19:33 Plasma Cell # (Manual) Cancelled 01/23/24 19:33 Other Cells # Cancelled 01/23/24 19:33 Nucleated RBCs # (Man) Cancelled 01/23/24 19:33 Hypersegmented Neuts Cancelled 01/23/24 19:33 Hyposegmented Neuts Cancelled 01/23/24 19:33 Hypogranular Neuts Cancelled 01/23/24 19:33 Large Granular Lymphs Cancelled 01/23/24 19:33 # Lrg Granular Lymphs Cancelled 01/23/24 19:33 Hairy Cells Cancelled 01/23/24 19:33 Smudge Cells Cancelled 01/23/24 19:33 Toxic Granulation Cancelled 01/23/24 19:33 Toxic Vacuolation Cancelled 01/23/24 19:33 Dohle Bodies Cancelled 01/23/24 19:33 Feliciano Rods Cancelled 01/23/24 19:33 Platelet Estimate Cancelled 01/23/24 19:33 Hypogranular Platelets Cancelled 01/23/24 19:33 Giant Platelets Cancelled 01/23/24 19:33 Platelet Satelliting Cancelled 01/23/24 19:33 RBC Morphology Cancelled 01/23/24 19:33 Polychromasia Cancelled 01/23/24 19:33 Hypochromasia Cancelled 01/23/24 19:33 Poikilocytosis Cancelled 01/23/24 19:33 Basophilic Stippling Cancelled 01/23/24 19:33 Anisocytosis Cancelled 01/23/24 19:33 Microcytosis Cancelled 01/23/24 19:33 Macrocytosis Cancelled 01/23/24 19:33 Spherocytes Cancelled 01/23/24 19:33 Pappenheimer Bodies Cancelled 01/23/24 19:33 Sickle Cells Cancelled 01/23/24 19:33 Target Cells Cancelled 01/23/24 19:33 Tear Drop Cells Cancelled 01/23/24 19:33 Ovalocytes Cancelled 01/23/24 19:33 Stomatocytes Cancelled 01/23/24 19:33 Wylie-Curtis Bodies Cancelled 01/23/24 19:33 Echinocytes Cancelled 01/23/24 19:33 Acanthocytes (Spur) Cancelled 01/23/24 19:33 Rouleaux Cancelled 01/23/24 19:33 RBC Agglutinates Cancelled 01/23/24 19:33 Schistocytes Cancelled 01/23/24 19:33 Sezary Cell Cancelled 01/23/24 19:33 VBG pH 7.27 (7.36-7.41) L 01/23/24 20:31 VBG pCO2 32 mmHg (38-50) L 01/23/24 20:31 VBG pO2 69 mmHg 01/23/24 20:31 VBG HCO3 15 mmol/L 01/23/24 20:31 VBG O2 Saturation 92.8 % 01/23/24 20:31 VBG Base Excess -11.0 mEq/L 01/23/24 20:31 POC Sodium 134 mmol/L (135-144) L 01/23/24 20:49 Sodium 131 mmol/L (136-145) L 01/23/24 19:33 POC Potassium 4.8 mmol/L (3.3-5.0) 01/23/24 20:49 Potassium 4.2 mmol/L (3.5-5.1) D 01/23/24 21:44 POC Chloride 113 mmol/L (101-112) H 01/23/24 20:49 Chloride 103 mmol/L (98-107) 01/23/24 19:33 Carbon Dioxide 18 mmol/L (21-32) L 01/23/24 19:33 POC Total CO2 16 mmol/L (24-31) L 01/23/24 20:49 Anion Gap 10 (3-11) 01/23/24 19:33 POC Anion Gap 11.0 mmol/L (16-25) L 01/23/24 20:49 POC BUN 65 mg/dl (7-18) H 01/23/24 20:49 BUN 67 mg/dl (6-23) H 01/23/24 19:33 Creatinine 2.46 mg/dl (0.6-1.2) H 01/23/24 19:33 POC Creatinine 2.5 mg/dl (0.6-1.3) H 01/23/24 20:49 Est Cr Clr Drug Dosing 30.2 ml/min 01/23/24 19:33 eGFR 23.30 01/23/24 19:33 BUN/Creatinine Ratio 27.2 (10-20) H 01/23/24 19:33 Glucose 268 mg/dl (70-99(Fasting)) H 01/23/24 19:33 POC Glucose 184 mg/dl (70-99) H 01/24/24 02:21 POC Glucose (other) 253 mg/dl (70-99) H 01/23/24 20:49 Calcium 11.1 mg/dl (8.6-10.3) H 01/23/24 19:33 POC Ioniz Calcium Dustin 1.45 mmol/l (1.12-1.32) H 01/23/24 20:49 Phosphorus 3.9 mg/dl (2.5-4.9) 01/23/24 19:33 Magnesium 1.6 mg/dl (1.7-2.4) L 01/23/24 19:33 Total Bilirubin 0.0 mg/dl (0.2-1.0) L 01/23/24 19:33 AST 20 U/L (13-39) 01/23/24 21:44 ALT 34 U/L (7-52) 01/23/24 19:33 Alkaline Phosphatase 134 U/L (34-104) H 01/23/24 19:33 Total Protein 8.4 gm/dl (6.0-8.3) H 01/23/24 19:33 Albumin 5.2 gm/dl (3.4-5.0) H 01/23/24 19:33 Globulin 3.2 gm/dl (2.5-4.0) 01/23/24: Albumin/Globulin Ratio 1.6 (0.9-2) 01/23/24: Urine Color Yellow 01/23/24: Urine Appearance Clear (Clear) 01/23/24: Urine pH 5.5 (4.5-7.5) 01/23/24: Ur Specific [place] 1.015 (1.000-1.030) 01/23/24: Urine Protein 2+ (Negative) H 01/23/24: Urine Glucose (UA) 1+ (Negative) H 01/23/24: Urine Ketones Negative (Negative) 01/23/24: Urine Blood Negative (Negative) 01/23/24: Urine Nitrite Negative (Negative) 01/23/24: Urine Bilirubin Negative (Negative) 01/23/24: Urine Urobilinogen Negative (Negative) 01/23/24: Ur Leukocyte Esterase 1+ (Negative) H 01/23/24: Urine WBC (Auto) 0-5 /hpf (0-5) 01/23/24: Urine RBC (Auto) 0-2 /hpf (0-2) 01/23/24: U Hyaline Cast (Auto) 0-2 /lpf (0-2) 01/23/24: U Epithel Cells (Auto) 3-5 /hpf (0-2) H 01/23/24: Urine Bacteria (Auto) None Seen (None Seen) 01/23/24: Blood Parasites ID Cancelled 01/23/24 19: Code Status & VTE Plan VTE Prophylaxis Plan VTE Prophylaxis will be ordered: Yes
[2024-01-24] MEDS: INSULIN ASPART PER UNIT CHARGE SC SCH (03:45)
[2024-01-24 07:42] LABS: Calcium 10.2 mg/dl (8.6-10.3); Magnesium 2.1 mg/dl (1.7-2.4); Potassium 4.4 mmol/L (3.5-5.1)
[2024-01-24 07:45] LABS: Estimated Average Glucose 235 mg/dl; Hemoglobin A1C 9.8 % (4.5-5.6)
[2024-01-24 07:47] LABS: BUN Creatinine Ratio 29.9 (10-20); Creatinine Clr Calc Pharmacy 41.9 ml/min
[2024-01-24] MEDS: allopurinoL 300 MG TAB PO SCH (08:52)
[2024-01-24] MEDS: PREGABALIN 150 MG CAP PO SCH (08:52)
[2024-01-24] MEDS: carvediloL 25 MG TAB PO SCH (08:53)
[2024-01-24] MEDS: busPIRone 15 MG TAB PO SCH (08:53)
[2024-01-24] MEDS: PANTOprazole 40 MG TAB PO SCH (08:53)
[2024-01-24] MEDS: SODIUM BICARBONATE 650 MG TAB PO SCH (08:53)
[2024-01-24] MEDS: DULoxetine HCL 60 MG CAP PO SCH (08:53)
[2024-01-24] MEDS: amLODIPine BESYLATE 5 MG TAB PO SCH (08:54)
[2024-01-24] MEDS: BACLOFEN 10 MG TAB PO SCH (08:54)
[2024-01-24] MEDS: ASPIRIN 325 MG ECTAB PO SCH (08:54)
[2024-01-24] MEDS: ATORVASTATIN 40 MG TAB PO SCH (08:54)
[2024-01-24] MEDS ORDERED: LANTUS PER UNIT CHARGE SC SCH ×2 (09:00)
[2024-01-24] MEDS ORDERED: hydrALAZINE HCL 20 MG/ML VIAL IV PRN (09:00)
[2024-01-24 09:04] LABS: Basophils # (auto) 0.04 K/uL (0.00-0.20); Basophils % (auto) 0.5 %; Eosinophils # (auto) 0.27 K/uL (0.00-0.50); Eosinophils % (auto) 3.4 %; Hematocrit (blood only) 36.4 % (37.0-47.0); Hemoglobin 12.1 g/dl (12.0-16.0); Immature Granulocytes # (auto) 0.05 K/uL (0.01-0.20); Immature Granulocytes % (auto) 0.6 %; Lymphocytes # (auto) 1.73 K/uL (1.20-3.40); Lymphocytes % (auto) 22.1 %; Mean Corpuscular Hemoglobin 30.1 pg (25.0-34.0); Mean Corpuscular Hgb Conc 33.2 g/dL (32.0-36.0); Mean Corpuscular Volume 90.5 fL (80.0-100.0); Mean Platelet Volume 10.3 fL (9.4-12.4); Monocytes # (auto) 0.81 K/uL (0.11-0.59); Monocytes % (auto) 10.3 %; Neutrophils # (auto) 4.93 K/uL (1.40-6.50); Neutrophils % (auto) 63.1 %; Platelet Count 187 K/uL (130-400); RDW Coefficient of Variation 15.2 % (11.5-14.5); RDW Standard Deviation 50.3 fL (36.4-46.3); Red Blood Count 4.02 M/uL (4.20-5.40); White Blood Count 7.83 K/ul (4.8-10.8)
[2024-01-24] MEDS: LANTUS PER UNIT CHARGE SC SCH (09:29)
[2024-01-24] MEDS: HEPARIN SOD 5,000 UNIT/0.5 ML VIAL SQ SCH (09:29)
[2024-01-24] MEDS: ACETAMINOPHEN 325 MG TAB PO PRN (09:35)
--- OUTSIDE RECORDS SUMMARY | 2024-01-24 10:05 | External Medical Summary | Summary of Care ---
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 Name Role Phone Wiliam Garsia MD Primary Care Provider [phone] Reason for Visit * Reason Onset Date Comments FYI 01/23/2024 Encounter Details Date Type Department Care Team (Late st Contact Info) Description 01/23/2024 Telephone Nephrology, [place] [address] [place] [address] Services, [facility] [address] [place] [address] Allergies Active Allergy Reactions Criticality Noted Date Comments Bee Venom 07/08/2021 Hydralazine Edema Other 11/22/2022 documented as of this encounter (statuses as of 01/23/2024) Medications Medication Sig Dispensed Refills Start Date End Date Status CYMBALTA 60 MG PO CPEP Take 1 Capsule by mouth in the morning. Active Insulin Degludec 100 UNIT/ML Subcutaneous Solution Pen-injector Inject under the skin daily. Active Insulin Lispro 100 UNIT/ML Subcutaneous Solution Cartridge Inject under the skin. Active prochlorperazine (COMPAZINE) 10 MG TabletIndications:Joel sea Take 1 Tab by mouth every 8 hours as needed for Nausea. 30 Tab 6 04/30/2018 Active Pregabalin 150 MG Oral Capsule (Lyrica) Take 1 Capsule by mouth in the morning and 1 Capsule at noon and 1 Capsule before bedtime. 07/08/2020 Active Sodium Bicarbonate 650 MG Oral TabletIndications:Met abolic acidosis Take 3 Tablets by mouth in the morning and 3 Tablets at noon and 3 Tablets before bedtime. 360 Tablet 6 04/06/2021 Active Fish Oil 1000 MG Oral Capsule Take 1 Capsule by mouth in the morning. Takes 2 capsules in the AM. Active Baclofen 10 MG Oral Tablet (Lioresal) Take 1 Tablet by mouth in the morning and 1 Tablet at noon and 1 Tablet before bedtime. 05/29/2021 Active busPIRone HCl 15 MG Oral Tablet (Buspar) Take 1 Tablet by mouth in the morning. Active Carvedilol 25 MG Oral Tablet Take 1 Tablet by mouth 2 times a day with morning and evening meals. Takes 2 tablets in the AM 2 at bedtime Active Ajovy 225 MG/1.5ML Subcutaneous Solution Prefilled Syringe Every Month . 07/06/2021 Active Pantoprazole Sodium 40 MG Oral Tablet Delayed Release Take by mouth . Acti ve Pioglitazone HCl 30 MG Oral Tablet (Actos) Take 1 Tablet by mouth in the morning. 05/25/2021 Active Entresto 97-103 MG Oral Tablet 1 Tablet in the morning and 1 Tablet before bedtime. 07/06/2021 Active Empagliflozin 25 MG Oral Tablet (Jardiance) Take 1 Tablet by mouth in the morning. Active Atorvastatin Calcium 20 MG Oral Tablet (Lipitor) Take 4 Tablets by mouth in the morning. 30 Tablet 05/30/2022 Active amLODIPine Besylate 10 MG Oral Tablet (Norvasc) Take 1 Tablet by mouth in the morning. 08/17/2022 Active Furosemide 20 MG Oral Tablet (Lasix)Indications:Lo calized edema,Chronic kidney disease, stage 3b (HCC),HTN, goal below 130/80 Take 2 tablets in morning and 2 tablets 4 hrs (or more) later in day 360 Tablet 3 06/07/2023 Active Allopurinol 300 MG Oral Tablet (Zyloprim)Indications :Chronic kidney disease, stage 3b (HCC),Hyperuricemia Take 1 Tablet by mouth in the morning. 90 Tablet 3 06/07/2023 Active Chlorthalidone 25 MG Oral Tablet (Hygroton)Indications :Localized edema,Chronic kidney disease, stage 3b (HCC),HTN, goal below 130/80 TAKE 1 TABLET BY MOUTH EVERY DAY IN THE MORNING 90 Tablet 3 10/30/2023 Active Eszopiclone 1 MG Oral Tablet Take 1 Tablet by mouth daily as needed. 12/12/2023 Active Aspirin 325 MG Oral Tablet Take 1 Tablet by mouth in the morning. Active documented as of this encounter (statuses as of 01/23/2024) Active Problems Problem Noted Date Diagnosed Date Ketosis prone diabetes 06/13/2022 Chronic kidney disease, stage 3b 07/19/2021 Overview: Per CKD protocol Uncontrolled type 1 diabetes mellitus with diabetic polyneuropathy 06/19/2017 Diarrhea 08/08/2012 Hypernatremia 08/07/2012 Delirium 07/31/2012 Respiratory failure, acute 07/18/2012 Hyperchloremia 07/18/2012 CAP (community acquired pneumonia) 07/15/2012 History of tobacco abuse 07/15/2012 Hyperglycemia 07/15/2012 Electrolyte and fluid disorder 09/14/2011 Malnutrition of moderate degree 09/11/2011 S/P colectomy 09/11/2011 Overview: 2/2 to C-diff infection Anemia 09/11/2011 Hypernatremia 09/11/2011 C. difficile colitis 09/10/2011 Hypokalemia 09/10/2011 BMI 35-39 ISOLATED (SEE ACTUAL BMI) 09/21/2009 Overview: Per Obesity Protocol, #19 Migraine without aura 12/28/2007 Esophageal reflux 12/03/2007 Tobacco use disorder 07/30/2007 MEDICATION USE AGREEMENT 07/29/2007 HTN, goal below 130/80 07/09/2007 Lumbago 07/09/2007 Generalized osteoarthritis of multiple sites Peptic ulcer 06/04/2007 documented as of this encounter (statuses as of 01/23/2024) Resolved Problems Problem Noted Date Diagnosed Date Resolved Date Chronic kidney disease, stage 3a 07/20/2020 07/22/2021 Overview: Per CKD protocol Acute kidney injury 07/15/2012 11/23/19 23 Salmonella bacteremia 09/13/20112017 Toxic encephalopathy 09/11/2011 012 SIRS due to infectious proce ss with acute organ dysfunction 09/10/2011 06/19/2017 Septicemia due to Gram-negative organism 09/10/2011 06/19/2017 OK (acute kidney injury) 09/10/2011 Acidosis 09/10/2011 09/14/2011 Hypoxemia 09/10/2011 09/14/2011 documented as of this encounter (statuses as of 01/23/2024) Immunizations Name Administration Dates Next Due COVID-19 mRNA, LNP-s, No Pre serve, 2-Dose Series (Pfizer) 06/23/2020,06/02/2020 Pneumococcal Polysaccharide PPV23 (Pneumovax) Seasonal Influenza Vac., MDV, IM, 0.5 mL (Fluzon e) 12/29/2008 Seasonal Influenza, QUAD, wi th Preserv, 6 mons & Above, 0.5 mL, IM 11/28/2019 Seasonal Influenza, Quadrivalent, No Preserve, I M 12/24/2023 TDAP, Age 7 and older, IM (Adacel) 09/21/2007 documented as of this encounter Social History Tobacco Use Types Packs/Day Years Used Date Smoking Tobacco: Former Cigarettes 0.5 16 Q uit: 12/16/2023 Smokeless Tobacco: Never Alcohol Use Standard Drinks/Week Comments No 0 (1 standard drink = 0.6 oz pur e alcohol) Utilities Answer Date Recorded Do you have trouble paying y our heating, water, or electric bill? (Adult - for ages 18 years and over) Not on file 09/26/2023 Is your family able to pay t he heat, water, or electric bill? (Household - for ages 0-17 years) Not on file 09/26/2023 Does your family have access to good internet? (Household - for ages 0-17 years) Not on file 09/26/2023 Social Connections Answer Date Recorded How often do you feel lonely or isolated from those around you? (Adult - for ages 18 years and over) Not on file 09/26/2023 Sex and Gender Information Value Date Recorded Sex Assigned at Not on file Gender Identity Not on file Sexual Orientation Not on file Job Start Date Occupation Industry Not on file Not on file Not on file documented as of this encounter Miscellaneous Notes * Telephone Encounter - Reyna Noel OSA - 01/23/2024 4:36 PM EDT Rey grimm called in they wanted to report a high creation [phone] documented in this encounter Plan of Treatment Health Maintenance Due Date Last Done Comments Depression Screening 1985 HIV Screening 1988 B-12 1991 Diabetic Eye Exam 1991 Diabetic Foot Exam 1991 Hepatitis C Screening 1991 Hepatitis B Vaccine (1 of 3 - 19+ 3-dose series) 1992 HPV/Co-Test 2003 Pneumococcal Vaccine: Pediatrics (0 to 5 Years) and At-Risk Patients (6 to 64 Years) (2 of 2 - PCV) 06/10/2009 06/10/2008 Cervical Cancer Screening 06/04/2010 Pap Smear 06/04/2010 06/04/2007 Mammogram 2013 DTap/Tdap Vaccines (2 - Td or Tdap) 09/20/2017 09/21/2007 Cologuard 2018 Colonoscopy 2018 Colorectal Cancer Screening 2018 Fecal Occult Blood Test 2018 Sigmoidoscopy 2018 Zoster Vaccines (1 of 2) 2023 CKD PHOS USE SMARTSET 41947 11/19/202311/08, 05/30/2022, 07/19/2021, Additional history exists COVID-19 Vaccine ( season) 2023 01/17/2023, 08/13/2021, 01/08/2021, Additional history exists Albumin/Creatinine Ratio 02/17/20242 023, 05/30/2022, 09/24/2021, Additional history exists CKD HGB USE SMARTSET [id number] 02/17/202402/16, 02/16/2023, 05/30/2022, Additional history exists HbA1c 03/13/2024 09/12/2023, 12/2022, 06/11/2021, Additional history exists GFR 04/14/2024 10/13/2023, 07/2023, 07/10/2023, Additional history exists Lipid Panel 10/23/2025 10/23/2020, 06/09, 05/08/2018, Additional history exists Influenza Vaccine (FLU shot) Completed , 11/28/2019, 12/29/2008 HPV (Gardasil) Vaccine Aged Out No lo nger eligible based on patient's age to complete this topic MENINGOCOCCAL (MENACTRA/MENVEO) Aged Out No longer eligible based on patient's age to complete this topic documented as of this encounter Medical Devices Not on filedocumented as of this encounter Advance Directives * Full Code (Latest Code Status on File) Date Activated Date Inactivated Comments 07/15/2012 8:37 PM 08/13/2012 9:51 PM This order ref lects the patients wishes and were consensually agreed upon. Question Answer Comments Discussion of Advance Directives occurred with: Family Does the patient have a Living Will? No Does the patient have Health Care Power of Attor albert? No * Full Code Date Activated Date Inactivated Comments 03/18/2012 6:56 PM 03/19/2012 4:02 PM This order reflects the patients wishes and were consensually agreed upon. Question Answer Comments Discussion of Advance Directives occurred with: Not Discussed Does the patient have a Living Will? No Does the patient have Health Care Power of Attor albert? No * Full Code Date Activated Date Inactivated Comments 09/10/2011 2:38 PM 09/20/2011 5:28 PM This order re flects the patients wishes and were consensually agreed upon. Question Answer Comments Discussion of Advance Directives occurred with: Not Discussed Does the patient have a Living Will? No Does the patient have Health Care Power of Attor albert? 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
--- NOTE | 2024-01-24 12:56 | Pharmacy Report ---
Pharmacy Glycemic Short Note 2 - Date of Service January 24, 2024 - Glycemic Short BSG Results (Last 24 hours): 01/23/24 01/23/24 01/23/24 19:33 19:49 20:49 Glucose 268 H POC Glucose 288 H POC Glucose (other) 253 H 01/24/24 01/24/24 01/24/24 02:21 06:47 08:51 Glucose 137 H POC Glucose 184 H 120 H POC Glucose (other) 01/24/24 12:42 Glucose POC Glucose 162 H POC Glucose (other) OUTPATIENT ANTIDIABETIC REGIMEN: * Tresiba 120 units SQ daily * Pt reports that she takes 60 units SQ BID * Humalog 30 units SQ TID before meals * HbA1c: 9.7% (01/23/24) ASSESSMENT: * Ms Hernandez is a 48yo diabetic F admitted with OK on CKD. * Based on data from past admission(s), pt has required significantly less insulin while hospitalized than she does as an outpt. Will dose insulin conservatively in light of this information. Will also exercise caution in the setting of OK and unstable renal fxn. * Pharmacy will continue to follow and adjust regimen as indicated. PLAN FOR INPATIENT GLYCEMIC CONTROL: * Hold outpatient oral diabetes medications * Basal insulin * Lantus 50 units SQ daily * Bolus insulin * NovoLog per scale ACHS or Q6hrs while NPO * Goal Range: Low 110 mg/dL - High 140 mg/dL * Correction Factor: 15 mg/dL/unit * Nutritional / Prandial insulin per carb ratio of 1 unit per 7 grams CHO consumed
[2024-01-24] MEDS: HYDROmorphone INJ 0.5 MG/0.5 ML SYR IV PRN (13:28)
--- NOTE | 2024-01-24 14:15 | Nephrology Consultation ---
Date of Consultation January 24, 2024 Assessment & Plan (1) Acute kidney injury superimposed on CKD: OK and CKD stage III, w Baseline creatinine in late 1.0's -a/w with SCr of 2.5, This is now at baseline with IV fluids and witholding Entresto, Lasix and chlorthalidone -D/c normal saline - start on 50 mls/hr of Sodium bicarbonate( 75 meq in 1/4 normal saline ) with a total of 1 lit (2) Acidosis, metabolic: Chronic metabolic acidosis - Continue sodium bicarb tablets - would not keep her on Jardiance because of repeated episodes of acidosis. - Sodium bicarbonate drip as above. (3) Hypertension: Hypertension continue amlodipine and Coreg Continue to hold chlorthalidone and Entresto IV hydralazine as needed (4) Hypercalcemia: Hypercalcemia - likley 2/ fluid depletion, chlorthlidone -IV fluids as above Follow PTH add Vitamin D levels. History of Present Illness Reason for Consultation: Acute kidney injury on CKD 3 Attending Physician: Rosales Navarro MD History of Present Illness 48-year-old female a/w OK and metabolic acidosis.She was scheduled for neck surgery and had preop labs which showed potassium 5.3, creatinine 2.5, serum CO2 19 and was advised to get admitted. Repeat potassium was 4.2. On review she denies N/V/D or shortness of breath, Normal hemodynamics. UOP at baseline. She has labile renal function ranging from CKD stage III-IV ( Baseline Scr in late 1.0's to early 2.0's) and often challenging to control hypertension and metabolic acidosis of unclear etiology with multiple hospitalization and OK on CKD and metabolic acidosis of unknowm etiology in the past. PMH--Uncontrolled type 1 diabetes( has been on jardiance) diabetic polyneuropathy, HTN, Peptic ulcers, history of C. difficile, history of malnutrition, history of diarrhea, CKD stage III, migraine, history of colectomy for C. difficile colitis. . Allergies Allergy/AdvReac Type Severity Reaction Status Date / Time bee venom protein (honey bee) Allergy Intermediate RED, SHORT Verified 01/11/24 14:27 OF BREATH No Known Drug Allergies Allergy Unknown NKDA Verified 01/11/24 14:27 Home Medications Medication Instructions Recorded Confirmed Type allopurinol 300 mg tablet 300 mg PO DAILY 01/24/24 01/24/24 History amlodipine 10 mg tablet 10 mg PO DAILY 01/24/24 01/24/24 History aspirin 325 mg tablet 325 mg PO DAILY 01/24/24 01/24/24 History atorvastatin 20 mg tablet 80 mg PO DAILY 01/24/24 01/24/24 History baclofen 10 mg tablet 10 mg PO TID 01/24/24 01/24/24 History buspirone 15 mg tablet 15 mg PO DAILY 01/24/24 01/24/24 History carvedilol 25 mg tablet (Coreg) 50 mg PO BID 01/24/24 01/24/24 History chlorthalidone 25 mg tablet 25 mg PO DAILY 01/24/24 01/24/24 History duloxetine 60 mg capsule,delayed 60 mg PO DAILY 01/24/24 01/24/24 History release empagliflozin 25 mg tablet 25 mg PO DAILY 01/24/24 01/24/24 History (Jardiance) eszopiclone 1 mg tablet 1 mg PO HS 01/24/24 01/24/24 History furosemide 40 mg tablet (Lasix) 40 mg PO UD 01/24/24 01/24/24 History insulin degludec 200 unit/mL (3 120 unit subcut DAILY 01/24/24 01/24/24 History mL) subcutaneous pen (Tresiba FlexTouch U-200 insulin) insulin lispro 100 unit/mL 30 sliding scale dose subcut AC 01/24/24 01/24/24 History subcutaneous pen omega 8-[id number]-fish oil 1,000 mg 1 cap PO DAILY 01/24/24 01/24/24 History (120 mg-180 mg) capsule (Fish Oil) pantoprazole 40 mg tablet,delayed 40 mg PO DAILY 01/24/24 01/24/24 History release (Protonix) pregabalin 150 mg capsule 150 mg PO TID 01/24/24 01/24/24 History prochlorperazine maleate 10 mg 10 mg PO TID PRN Nausea And 01/24/24 01/24/24 History tablet Vomiting sacubitril 97 mg-valsartan 103 mg 1 tab PO BID 01/24/24 01/24/24 History tablet (Entresto) sodium bicarbonate 650 mg tablet 1,950 mg PO TID 01/24/24 01/24/24 History Patient History Medical History Cervical disc herniation MRI 10/2023, limited rom of neck Anemia of chronic disease has required blood transfusions in past-last transfusion last year Dyslipidemia Hypertension controlled, stable per pt History of nephrolithiasis x 1, passsed on own Diabetic peripheral neuropathy GERD (gastroesophageal reflux disease) controlled, stable per pt Diabetes mellitus, type 2 IDDM Chronic kidney disease, stage [address] dwight colon at [facility] Hyperparathyroidism Depression with anxiety History of endometriosis History of renal dialysis (04/2017) - [facility] - ARF 2/2 DKA Hx of Clostridium difficile infection 2012 - TREATED Chronic nausea Surgical History History of esophagogastroduodenoscopy (EGD) Hx of colonoscopy History of open reduction and internal fixation (ORIF) procedure (2018) left fibula Hx of tracheostomy (2013) R/T COMPLICATIONS AFTER ILEOSTOMY REVERSAL SURGERY IN 2011; HAS SINCE BEEN REVERSED History of rotator cuff surgery (2017) RT History of lumbar spinal fusion (2006) History of reversal of ileostomy (2012) History of ileostomy (2012) Status post cholecystectomy (2017) "cholelithiasis" Status post partial colectomy (2012) "for C diff colitis" Family History Mother Diabetes Social History Smoking Status: Former smoker Tobacco Type: Cigarettes Cigarettes Per Day: 5; Second Hand Exposure: No; Do You Dip or Chew Tobacco: No; Hx Alcohol Use: No Hx Substance Use: No Preferred Language: Andorran Communication Ability: Effective Coordinator Hotels Required: No Beliefs That Will Affect Care: None marital status: Current Living Situation: Spouse Feels Safe at Home: Yes Safety Concerns: Feels Safe At This Time Assistive Devices: Cane and Walker Review of Systems 2 Review of Systems: All systems reviewed & are unremarkable except as noted in HPI & below Physical Exam 2 Physical Exam: General- Not in di stress Neck- suppl e, no JVD. Lungs- clear to auscultat ion no wheezing or crackles Heart- r egular rhythm; no murmur, no gallop. Abdomen- normal b owel sounds, soft, nontender, no dis tension. Extremiti es- no pretibial e nehal, no erythema seen Neuro- alert, oriented PERRL, no facial palsy; no dysarthria; mov es extremities Results & Data Vital Signs (Past 12 Hours) Vital Signs Pulse Pulse Resp BP BP Pulse Ox Pulse Ox 01/24/24 09:00 91 H 26 H 95 01/24/24 08:03 78 14 96 01/24/24 08:00 114/62 01/24/24 07:42 79 14 95 01/24/24 07:09 79 01/24/24 07:00 77 13 95 01/24/24 07:00 130/81 01/24/24 03:55 82 18 142/75 H 98 01/24/24 03:52 98 01/24/24 03:51 80 18 142/75 H 98 O2 Del Method O2 Del Method 01/24/24 09:00 Room Air 01/24/24 08:03 Room Air 01/24/24 08:00 01/24/24 07:42 Room Air 01/24/24 07:09 01/24/24 07:00 Room Air 01/24/24 07:00 01/24/24 03:55 Room Air 01/24/24 03:52 Room Air 01/24/24 03:51 Room Air Laboratory Results 01/24/24 08:49 01/24/24 06:47
[2024-01-24] MEDS: [UNRECOGNIZED DRUG - OTHER] IV SCH (16:13)
[2024-01-24] MEDS: D5W IV SCH (16:13)
[2024-01-24] MEDS: ESZOPICLONE 1 MG TAB PO SCH (20:40)
[2024-01-25 06:44] LABS: Hematocrit (blood only) 32.3 % (37.0-47.0); Mean Corpuscular Hemoglobin 30.6 pg (25.0-34.0); Mean Corpuscular Hgb Conc 34.1 g/dL (32.0-36.0); Mean Platelet Volume 10.6 fL (9.4-12.4); Platelet Count 174 K/uL (130-400); RDW Standard Deviation 49.8 fL (36.4-46.3); Red Blood Count 3.59 M/uL (4.20-5.40); White Blood Count 6.11 K/ul (4.8-10.8)
[2024-01-25 06:56] LABS: BUN Creatinine Ratio 28.9 (10-20); Calcium 10.5 mg/dl (8.6-10.3); Creatinine Clr Calc Pharmacy 49.1 ml/min; Magnesium 1.9 mg/dl (1.7-2.4); Phosphorus 2.6 mg/dl (2.5-4.9); Potassium 4.2 mmol/L (3.5-5.1)
[2024-01-25 07:22] VITALS: O2SAT 95
[2024-01-25] MEDS ORDERED: LANTUS PER UNIT CHARGE SC SCH (09:00)
[2024-01-25 10:57] VITALS: BP 137/83; RESP 18; TEMP 98.8
--- NOTE | 2024-01-25 12:12 | Nephrology Progress Note ---
Date of Service January 25, 2024 Assessment & Plan (1) Acute kidney injury superimposed on CKD: Plan: OK and CKD stage III, w Baseline creatinine in late 1.0's -a/w with SCr of 2.5, cr down to 1.5. -Hold Entresto and chlorthalidone even on discharge -Can be discharged on lasix home dose. -Patient can go home today. renal follow up in 1-2 weeks (2) Acidosis, metabolic: Plan: Chronic metabolic acidosis - Continue sodium bicarb tablets - would not keep her on Jardiance because of repeated episodes of acidosis. (3) Hypertension: Plan: Hypertension continue amlodipine and Coreg Continue to hold chlorthalidone and Entresto IV hydralazine as needed (4) Hypercalcemia: Plan: Hypercalcemia Due to primary hyperparathyroidism. Follows with Endocrinology and nephro outpt -stop chlorthlidone -She needs parathyroidectomy Admission and Anticipated Discharge Date Admission Date: January 24, 2024 Subjective Seen for acute kidney injury hypercalcemia. She feels better today. No shortness of breath. Creatinine downtrending at 1.5. Review of Systems 2 Review of Systems: All other systems were reviewed and negative except as noted in HPI Physical Exam 2 Physical Exam: General exam: Appears comfortable, no acute distress HEENT: Pupils are equal and reactive to light Neck: No JVD, neck is supple trachea is midline Respiratory system: Clear breath sounds bilaterally. Gastrointestinal: Abdomen is soft, non distended, non tender, bowel sounds are present CVS: Regular rate and rhythm. No murmurs, rubs or gallops Musculoskeletal: No joint or muscle tenderness Extremities: Non tender, no edema, peripheral pulses are present Neuro: Oriented, no tremors, no focal neurological deficits Skin: No rashes Results & Data Vital Signs (Past 12 Hours) Vital Signs Temp Pulse Resp BP Pulse Ox O2 Del Method 01/25/24 10:56 37.1 C 77 18 137/83 95 Room Air 01/25/24 07:21 36.5 C 73 15 135/73 95 Room Air 01/25/24 03:10 36.6 C 77 18 109/73 94 Room Air Laboratory Results 01/25/24 06:01 01/25/24 06:01 WBC 6.11 RBC 3.59 L MCV 90.0 MCH 30.6 MCHC 34.1 RDW Std Deviation 49.8 H RDW Coeff of Chidi 15.0 H Plt Count 174 MPV 10.6 Phosphorus 2.6 D
--- NOTE | 2024-01-25 14:13 | Discharge Summary ---
Discharge Summary Date of Service January 25, 2024 Principal Dx & Hospital Course #1 = Principal Diagnosis (1) Acute kidney injury superimposed on CKD: (2) Acidosis, metabolic: (3) Diabetes type 2, uncontrolled: (4) Chronic renal disease, stage 3, moderately decreased glomerular filtration rate (GFR) between 30-59 mL/min/1.73 square meter: (5) Anemia of chronic disease: Plan Patient presented to the emergency room with abnormal laboratory studies that were performed as an outpatient. Her renal dysfunction was worse and she had some metabolic acidosis which is a chronic recurrent issue for her. Patient was admitted to the hospital. There is no significant arrhythmias on telemetry monitoring. Nephrology consultation was obtained. She was placed on a sodium bicarb and IV fluid drip. Her chlorthalidone, Entresto and Jardiance were all held. With these interventions her renal function and metabolic acidosis quickly returned to baseline. The IV drip was discontinued. She was continued on her oral sodium bicarbonate tablets. Nephrology recommended that she stay off the Jardiance indefinitely due to recurrent metabolic acidosis. Continue to hold the chlorthalidone and the Entresto. She can be discharged home to follow- up with them in approximately 1 to 2 weeks and follow-up with her PCP. She can continue to move forward with rescheduling her surgical intervention. Notes For Next Care Provider Follow-up with nephrology in 1 to 2 weeks BMP in 7 to 10 days May pursue rescheduling surgical intervention Medication Changes From Visit Jardiance, Entresto, chlorthalidone discontinued Admission HPI Per Admitting Provider 48-year-old female with past medical history significant for uncontrolled type 1 diabetes, diabetic polyneuropathy, electrolyte abnormalities, history of pneumonia, history of acute respiratory failure, history of hypertension, history of peptic ulcers, history of C. difficile, history of malnutrition moderate degree, history of diarrhea, CKD stage III, migraine, history of colectomy for C. difficile colitis, history of tobacco abuse comes in because of OK and metabolic acidosis. Patient is scheduled for neck surgery and preop labs today shows potassium 5.3, creatinine 2.5, serum CO2 19 and advised to get admitted. Repeat potassium is 4.2. Currently resting comfortably and hemodynamically stable. Denies any headache. No dizziness. No blurred visions. No runny nose or sore throat. No cough. No difficulty swallowing. No chest pain or shortness of breath, no nausea. No abdominal pain. Normal bowel and bladder movements. Ambulates okay. As per the nephrology outpatient notes patient has labile renal function ranging from CKD stage III-IV and often challenging to control hypertension and metabolic acidosis of unclear etiology with multiple hospitalization and OK on CKD. Past medical history. As mentioned above Past surgical history. Breast capsule of tummy, EGD, expiratory laparotomy, laparoscopic ileostomy, spinal fusion surgery, spinal implant, small bowel endos copy with biopsy. Social history. . Quit smoking 2023. Smoked 0.5 pack a day for 16 years. No alcohol use. No drug use. Family history. No family history on file. Admission Exam Per Admitting Provider See H&P Discharge Exam Constitutional: Alert HEENT: Mucous membranes moist. Lungs: Clear to auscultation, decreased, no wheezes rales or rhonchi CV: S1-S2, regular Abdomen: Soft, nontender, nondistended Extremities: Trace pretibial edema Neuro: No focal deficits Psych: Cooperative, normal mood Updated Medication List Medication Instructions Recorded Confirmed Type allopurinol 300 mg tablet 300 mg PO DAILY 01/24/24 01/24/24 History amlodipine 10 mg tablet 10 mg PO DAILY 01/24/24 01/24/24 History aspirin 325 mg tablet 325 mg PO DAILY 01/24/24 01/24/24 History atorvastatin 20 mg tablet 80 mg PO DAILY 01/24/24 01/24/24 History baclofen 10 mg tablet 10 mg PO TID 01/24/24 01/24/24 History buspirone 15 mg tablet 15 mg PO DAILY 01/24/24 01/24/24 History carvedilol 25 mg tablet (Coreg) 50 mg PO BID 01/24/24 01/24/24 History duloxetine 60 mg capsule,delayed 60 mg PO DAILY 01/24/24 01/24/24 History release eszopiclone 1 mg tablet 1 mg PO HS 01/24/24 01/24/24 History furosemide 40 mg tablet (Lasix) 40 mg PO UD 01/24/24 01/24/24 History insulin degludec 200 unit/mL (3 120 unit subcut DAILY 01/24/24 01/24/24 History mL) subcutaneous pen (Tresiba FlexTouch U-200 insulin) insulin lispro 100 unit/mL 30 sliding scale dose subcut AC 01/24/24 01/24/24 History subcutaneous pen omega 0-dkv-hge-fish oil 1,000 mg 1 cap PO DAILY 01/24/24 01/24/24 History (120 mg-180 mg) capsule (Fish Oil) pantoprazole 40 mg tablet,delayed 40 mg PO DAILY 01/24/24 01/24/24 History release (Protonix) pregabalin 150 mg capsule 150 mg PO TID 01/24/24 01/24/24 History prochlorperazine maleate 10 mg 10 mg PO TID PRN Nausea And 01/24/24 01/24/24 History tablet Vomiting sodium bicarbonate 650 mg tablet 1,950 mg PO TID 01/24/24 01/24/24 History Hospital Stay Data Consultations 01/23/24 21:01 ED Decision to Admit Stat 01/24/24 08:00 Consult Nephrology Routine Diagnostic Imagining Performed Reviewed imaging, laboratory and diagnostic studies. Pertinent findings as below. WBC 6.11 Hemoglobin 11.0 Bicarb 21, improved Creatinine 1.52 significantly improved Magnesium 1.9 Phosphorus 2.6 Pending Results Patient Have Any Pending Studies at Discharge: No Discharge Instructions Given to Patient (Per Discharging Provider) Follow-up with nephrology Can follow-up with your surgeon to move forward with rescheduling your surgery Total Time Total Time Spent Total Time Spent (In Minutes): 25
[2024-01-25 15:02] VITALS: PULSE 77
== END 2024-01-25 15:13 | disposition home or self-care (01) | DRG 683 ==
LOC: ED 18:37 → SUATTDRO 01-24 01:05 → EDINP 01-24 01:05 → 2S 01-24 01:42

== ENCOUNTER 2024-03-18 05:41 | Observation (INO) ==
--- NOTE | 2024-01-11 15:22 | PAT Medication Instructions ---
Medication Instructions Date of Service January 11, 2024 Home Medications Medication Instructions Recorded Humalog KwikPen Insulin 100 30 unit (0.3 mL) subcut TID 90 05/10/21 unit/mL subcutaneous (insulin days #30 mL lispro) pregabalin 150 mg capsule (Lyrica) 150 mg PO TID #90 caps 05/30/22 albuterol sulfate 90 mcg/actuation aerosol inhaler 2 puff inhalation Q4H PRN duloxetine 60 mg capsule,delayed release (Cymbalta) 60 mg PO QAM esomeprazole magnesium 40 mg capsule,delayed release 40 mg PO QAM omega 6-tso-abx-fish oil 1,000 mg (120 mg-180 mg) capsule (Fish Oil) 1 tab PO BID baclofen 10 mg tablet 10 mg PO TID PRN fluticasone propionate 50 mcg/actuation nasal spray,suspension (Flonase Allergy Relief) 2 spray intranasal DAILY PRN Humalog KwikPen Insulin 100 unit/mL subcutaneous (insulin lispro) 30 unit (0.3 mL) subcut TID sacubitril 97 mg-valsartan 103 mg tablet (Entresto) 1 tab PO BID buspirone 15 mg tablet 15 mg PO QAM carvedilol 25 mg tablet (Coreg) 50 mg PO Q12H chlorthalidone 25 mg tablet 25 mg PO QAM pantoprazole 40 mg tablet,delayed release (Protonix) 40 mg PO QAM furosemide 20 mg tablet 40 mg PO BID pregabalin 150 mg capsule (Lyrica) 150 mg PO TID sodium bicarbonate 650 mg tablet 2,600 mg PO TID aspirin 325 mg tablet 325 mg PO QAM atorvastatin 80 mg tablet 80 mg PO QAM cholecalciferol (vitamin D3) 50 mcg (2,000 unit) capsule 50 mcg PO QAM empagliflozin 25 mg tablet (Jardiance) 25 mg PO QAM insulin degludec 200 unit/mL (3 mL) subcutaneous pen (Tresiba FlexTouch U-200 insulin) 120 unit subcut QAM STOP 3 days before surgery empagliflozin 25 mg tablet (Jardiance) 25 mg PO QAM Continue as directed fluticasone propionate 50 mcg/actuation nasal spray,suspension (Flonase Allergy Relief) 2 spray intranasal DAILY PRN(if needed) ASK your prescriber and surgeon aspirin 325 mg tablet 325 mg PO QAM STOP taking 2 weeks before surgery (or as soon as possible if surgery is within 2 weeks) omega 9-lmu-zkc-fish oil 1,000 mg (120 mg-180 mg) capsule (Fish Oil) 1 tab PO BID DO NOT take the morning of surgery Humalog KwikPen Insulin 100 unit/mL subcutaneous (insulin lispro) 30 unit (0.3 mL) subcut TID sacubitril 97 mg-valsartan 103 mg tablet (Entresto) 1 tab PO BID chlorthalidone 25 mg tablet 25 mg PO QAM furosemide 20 mg tablet 40 mg PO BID sodium bicarbonate 650 mg tablet 2,600 mg PO TID cholecalciferol (vitamin D3) 50 mcg (2,000 unit) capsule 50 mcg PO QAM Take morning of surgery With a small sip of water, OTHERWISE NOTHING TO EAT OR DRINK AFTER MIDNIGHT: albuterol sulfate 90 mcg/actuation aerosol inhaler 2 puff inhalation Q4H PRN(use if needed; please bring with you to hospital day of surgery if possible) duloxetine 60 mg capsule,delayed release (Cymbalta) 60 mg PO QAM esomeprazole magnesium 40 mg capsule,delayed release 40 mg PO QAM baclofen 10 mg tablet 10 mg PO TID PRN(if needed) buspirone 15 mg tablet 15 mg PO QAM carvedilol 25 mg tablet (Coreg) 50 mg PO Q12H pantoprazole 40 mg tablet,delayed release (Protonix) 40 mg PO QAM pregabalin 150 mg capsule (Lyrica) 150 mg PO TID atorvastatin 80 mg tablet 80 mg PO QAM Take evening before surgery albuterol sulfate 90 mcg/actuation aerosol inhaler 2 puff inhalation Q4H PRN(if needed) baclofen 10 mg tablet 10 mg PO TID PRN(if needed) Humalog KwikPen Insulin 100 unit/mL subcutaneous (insulin lispro) 30 unit (0.3 mL) subcut TID sacubitril 97 mg-valsartan 103 mg tablet (Entresto) 1 tab PO BID carvedilol 25 mg tablet (Coreg) 50 mg PO Q12H furosemide 20 mg tablet 40 mg PO BID pregabalin 150 mg capsule (Lyrica) 150 mg PO TID sodium bicarbonate 650 mg tablet 2,600 mg PO TID Insulin Dependent Diabetic Patients * Test your blood sugar the morning of surgery * If Blood Sugar is GREATER THAN 150, take HALF of your regular dose of: insulin degludec 200 unit/mL (3 mL) subcutaneous pen (Tresiba FlexTouch U-200 insulin). * If Blood Sugar is LESS THAN 150, DO NOT TAKE ANY: insulin degludec 200 unit/mL (3 mL) subcutaneous pen (Tresiba FlexTouch U-200 insulin). Other Notes If you have any questions please call us at [phone] or [phone] or [phone] or [phone]
--- NOTE | 2024-01-23 12:36 | Anesthesiology Consultation ---
Date of Service January 23, 2024 Assessment & Plan (1) Encounter for pre-operative examination: Plan - critical glucose, not called to our department, but with surgeon's office, creatinine increase from 1.8 (10/2023 which is most recent creatinine upon confirmation in [place] and [facility] EHRs) to 2.5. Abnormal UA, mild hyperkalemia. To review of [facility] nephrology most recent office visit 01/04/24: "...creatinine 1.86 10/13/23...Stable CKD 3 with most recent outside labs completed in October. Remains high risk for progression d/t albuminuria..." [facility] nephrology office advised the office was closed and they did not have a provider on-call. No answer when initially called PCP. Message left requesting patient return call this evening. PCP office nurse Meliza made aware of critical glucose, creatinine bump from 1.8 to 2.5, abnormal UA with bacteria and mild hyperkalemia-she states they will also try to reach patient and advise she report to the ER. Patient returned my call at 17:10 and was made aware of above abnormal testing and concerns, she states will report to [facility] ER by her preference. Detailed report called to [facility] artillery specialist, Kiah Stuart. Surgeon's office made aware. - patient will need [facility] nephrology and PCP clearances. Optimization forms to be faxed to each office along with PAT testing once patient is discharged from [facility]. - cardiology clearance 01/10/24: "...preoperative cardiac maribel wanda...intermediate cardiovascular risk...no active cardiovascular conditions (over the past 30 days)...do not recommend further invasive or noninvasive cardiovascular testing or procedures prior to proceeding with planned cervical surgery...optimized from a cardiac standpoint...given her HFpEF, would advise judicious use of IVF given her propensity to have FVO..." Chart Review Chart Review: Pending: Refer to Additional Notes / Consult section and Patient seen in Pre Admission Testing Teaching & Discussion Pre-Anesthesia Teaching/Discussion Notes: Instructed NPO after midnight before surgery, except medications with 15 cc of water. Medication instructions provided according to the PAT guidelines. History Surgery Operation Date: 02/14/24 07:45 Proposed Procedures p C4-C5 Anterior Cervical Discectomy and Fusion with Spinal Cord Monitoring - Julio Andrade, DO Height/Weight Height: 5 ft 3 in Weight: 95.4 kg Allergies Allergy/AdvReac Type Severity Reaction Status Date / Time bee venom protein (honey bee) Allergy Intermediate RED, SHORT Verified 01/11/24 14:27 OF BREATH No Known Drug Allergies Allergy Unknown NKDA Verified 01/11/24 14:27 Medications Home Medications Medication Instructions Recorded Confirmed Last Taken allopurinol 300 mg tablet 300 mg PO DAILY 01/24/24 01/24/24 Unknown amlodipine 10 mg tablet 10 mg PO DAILY 01/24/24 01/24/24 Unknown aspirin 325 mg tablet 325 mg PO DAILY 01/24/24 01/24/24 Unknown atorvastatin 20 mg tablet 80 mg PO DAILY 01/24/24 01/24/24 Unknown baclofen 10 mg tablet 10 mg PO TID 01/24/24 01/24/24 Unknown buspirone 15 mg tablet 15 mg PO DAILY 01/24/24 01/24/24 Unknown carvedilol 25 mg tablet (Coreg) 50 mg PO BID 01/24/24 01/24/24 Unknown chlorthalidone 25 mg tablet 25 mg PO DAILY 01/24/24 01/24/24 Unknown duloxetine 60 mg capsule,delayed 60 mg PO DAILY 01/24/24 01/24/24 Unknown release empagliflozin 25 mg tablet 25 mg PO DAILY 01/24/24 01/24/24 Unknown (Jardiance) eszopiclone 1 mg tablet 1 mg PO HS 01/24/24 01/24/24 Unknown furosemide 40 mg tablet (Lasix) 40 mg PO UD 01/24/24 01/24/24 Unknown insulin degludec 200 unit/mL (3 120 unit subcut DAILY 01/24/24 01/24/24 Unknown mL) subcutaneous pen (Tresiba FlexTouch U-200 insulin) insulin lispro 100 unit/mL 30 sliding scale dose subcut AC 01/24/24 01/24/24 Unknown subcutaneous pen omega 8-shj-iyj-fish oil 1,000 mg 1 cap PO DAILY 01/24/24 01/24/24 Unknown (120 mg-180 mg) capsule (Fish Oil) pantoprazole 40 mg tablet,delayed 40 mg PO DAILY 01/24/24 01/24/24 Unknown release (Protonix) pregabalin 150 mg capsule 150 mg PO TID 01/24/24 01/24/24 Unknown prochlorperazine maleate 10 mg 10 mg PO TID PRN Nausea And 01/24/24 01/24/24 Unknown tablet Vomiting sacubitril 97 mg-valsartan 103 mg 1 tab PO BID 01/24/24 01/24/24 Unknown tablet (Entresto) sodium bicarbonate 650 mg tablet 1,950 mg PO TID 01/24/24 01/24/24 Unknown Past Medical History Medical History Cervical disc herniation MRI 10/2023, limited rom of neck Anemia of chronic disease has required blood transfusions in past-last transfusion last year Dyslipidemia Hypertension controlled, stable per pt History of nephrolithiasis x 1, passsed on own Diabetic peripheral neuropathy GERD (gastroesophageal reflux disease) controlled, stable per pt Diabetes mellitus, type 2 IDDM Chronic kidney disease, stage [address] dwight colon at [facility] Hyperparathyroidism Depression with anxiety History of endometriosis History of renal dialysis (04/2017) - [facility] - ARF 2/2 DKA Hx of Clostridium difficile infection 2012 - TREATED Chronic nausea Patient denies h/o stroke, seizures, heart attack, heart failure, or blood clots/DVTs. Exercise / Class Metabolic Activity II 4-5 Yardwork/Stairs/Walk up hill (denies chest discomfort or shortness of breath with one flight of stairs) Past Family History Family History Mother Diabetes Past Surgical History Surgical History History of esophagogastroduodenoscopy (EGD) Hx of colonoscopy History of open reduction and internal fixation (ORIF) procedure (2018) left fibula Hx of tracheostomy (2013) R/T COMPLICATIONS AFTER ILEOSTOMY REVERSAL SURGERY IN 2011; HAS SINCE BEEN REVERSED History of rotator cuff surgery (2017) RT History of lumbar spinal fusion (2006) History of reversal of ileostomy (2012) History of ileostomy (2012) Status post cholecystectomy (2017) "cholelithiasis" Status post partial colectomy (2012) "for C diff colitis" Past Anesthesia History No Family Hx of Anesthesia Complications History of PONV No Hx of PONV and No Hx of Motion Sickness Social History Smoking Status: Former smoker tobacco type: cigarettes Smoking cigarettes per day: 5 Do You Dip or Chew Tobacco: No Smoking End Date: 12/16/2023 (advised) Hx Alcohol Use: No Hx Substance Use: Yes substance use type: marijuana Last Used Substance Other:: medical marijuana daily (Advised) Review of Systems Patient denies chest pain, shortness of breath, dyspnea on exertion, snoring, witnessed apneas, fever, chills, cough, wheezing, or palpitations. Physical Exam Vital Signs Vitals BP 118/66 P 88 TEMP 98.2 SP02 95% on RA RESP 18 Physical Patient resting comfortably in chair in no acute distress, alert and oriented, responding appropriately throughout visit Full cervical extension range of motion without pain TMD <3 finger breadths Mallampati Score 3 Dentition: intact, denies chipped or loose teeth, caps/crowns, implants or bridges Lungs: normal respiratory effort. Good air movement, clear throughout to auscultation, no adventitious breath sounds Cardiac: regular rate and rhythm, no murmurs noted Carotid arteries: negative bruit bilat Lab Results Anesthesia Preop Results Results Anesthesia Widget: WBC 7.83 K/ul (4.8-10.8) 01/24/24 Hgb 12.1 g/dl (12.0-16.0) 01/24/24 Hct 36.4 % (37.0-47.0) L 01/24/24 Plt 187 K/uL (130-400) 01/24/24 Na 139 mmol/L (136-145) 01/24/24 K 4.4 mmol/L (3.5-5.1) 01/24/24 Cl 114 mmol/L (98-107) H 01/24/24 CO2 17 mmol/L (21-32) L 01/24/24 BUN 53 mg/dl (6-23) H 01/24/24 Creat 1.77 mg/dl (0.6-1.2) H 01/24/24 Glucose Level 137 mg/dl (70-99(Fasting)) H 01/24/24 POC Glucose 191 mg/dl (70-99) H 01/24/24 PT 10.3 Seconds (9.0-12.0) 01/23/24 PTT 30 Seconds (21-31) 01/23/24 INR 0.9 (0.9-1.1) 01/23/24 HA1c 9.8 % (4.5-5.6) H 01/24/24 Urine Color Yellow 01/23/24 Urine Appearance Clear (Clear) 01/23/24 Urine pH 5.5 (4.5-7.5) 01/23/24 Urine Specific [place] 1.015 (1.000-1.030) 01/23/24 Urine Protein 2+ (Negative) H 01/23/24 Urine Glucose (UA) 1+ (Negative) H 01/23/24 Urine Ketones Negative (Negative) 01/23/24 Urine Blood Negative (Negative) 01/23/24 Urine Nitrite Negative (Negative) 01/23/24 Urine Bilirubin Negative (Negative) 01/23/24 Urine Urobilinogen Negative (Negative) 01/23/24 Urine Leukocyte Esterase 1+ (Negative) H 01/23/24 Urine WBC (Auto) 0-5 /hpf (0-5) 01/23/24 Urine RBC (Auto) 0-2 /hpf (0-2) 01/23/24 Urine Hyaline Casts (Auto) 0-2 /lpf (0-2) 01/23/24 Urine Epithelial Cells (Auto) 3-5 /hpf (0-2) H 01/23/24 Urine Bacteria (Auto) None Seen (None Seen) 01/23/24 Blood Type A Positive 01/23/24 Antibody Screen NEGATIVE 01/23/24 Testing Laboratory Results Critical glucose called to Vigrinia Valdes per chart. Electrocardiogram Date: 01/10/24 SR, PRWP, nonspecific T abnormality, rate 76 bpm Chest X-Ray Date: 01/23/24 No acute cardiopulmonary findings. Echocardiogram Date: 02/15/23 EF 60-65% No LV regional wall motion abnormalities Grade I diastolic dysfunction Stress Test Date: 06/16/21 Negative for ischemia; nuclear findings are reported separately Cervical Spine Date: 11/02/23 1. Limited exam secondary to motion degradation. 2. Mild to moderate discogenic degeneration results in multilevel neural f oraminal stenosis as detailed above. 2. No significant central canal stenosis.
[2024-03-18] MEDS ORDERED: LACTATED RINGER'S 1,000 ML IV SCH (06:00)
[2024-03-18] MEDS: LR 60ML/HR IV SCH (06:09)
[2024-03-18] MEDS: GABAPENTIN 900 MG DOSE PO SCH (06:10)
[2024-03-18] MEDS: SODIUM CHLORIDE 0.9% 1,000 ML IV SCH (06:10)
[2024-03-18] MEDS: CeleBREX 200 MG CAP PO SCH (06:10)
[2024-03-18] MEDS: ACETAMINOPHEN 500 MG TAB PO SCH (06:10)
[2024-03-18] MEDS ORDERED: LIDOCAINE 2% 2 ML VIAL/AMP(20MG/ML) INFIL ONE (06:48)
[2024-03-18] MEDS ORDERED: ONDANSETRON INJ 2 MG/ML 2 ML VIAL ONE (06:48)
[2024-03-18] MEDS ORDERED: DEXAMETHASONE SOD INJ 4 MG/ML VIAL ONE (06:48)
[2024-03-18] MEDS ORDERED: ROCURONIUM BROMIDE 10 MG/ML 5 ML VIAL IV ONE (06:48)
[2024-03-18] MEDS ORDERED: NEOSTIGMINE METHYLSULFATE 1 MG/ML 10ML VIAL ONE (06:48)
[2024-03-18] MEDS ORDERED: PROPOFOL IV EMULSION 10 MG/ML 20 ML VIAL IV ONE (06:48)
[2024-03-18] MEDS ORDERED: GLYCOPYRROLATE 0.2 MG/ML VIAL ONE (06:48)
[2024-03-18] MEDS ORDERED: fentaNYL citrate PF 100 MCG/2 ML VIAL ONE (06:49)
[2024-03-18] MEDS ORDERED: MIDAZOLAM HCL 1 MG/ML 2ML VIAL ONE (06:49)
[2024-03-18] MEDS ORDERED: HYDROmorphone INJ 2 MG/ML SYR/VIAL ONE (06:57)
[2024-03-18] MEDS ORDERED: ePHEDrine sulfate 50 MG/ML AMP IV PRN (07:30)
[2024-03-18] MEDS ORDERED: ATROPINE SULFATE 0.1 MG/ML 10ML SYR IV PRN (07:30)
[2024-03-18] MEDS ORDERED: PROMETHAZINE HCL 6.25 MG in SODIUM CHLORIDE 0.9% 50 ML IV PRN (07:30)
--- NOTE | 2024-03-18 07:43 | History & Physical Bridge Note ---
Date of Service March 18, 2024 History & Physical Bridge Note I have examined the patient, reviewed the History & Physical and in the interval since the performance of the History & Physical I have noted the following changes of clinical significance: no changes noted
--- NOTE | 2024-03-18 07:45 | History & Physical Report ---
Date of Service March 18, 2024 Assessment & Plan (1) Cervical stenosis of spinal canal: Plan: C4-C5 anterior cervical discectomy and fusion History of Present Illness Chief Complaint: Neck and arm pain Primary Care Provider: Wiliam Garsia This is a 48-year-old female who presents with persistent neck and arm pain after failing course of nonoperative care is here for surgical intervention. Allergies Allergy/AdvReac Type Severity Reaction Status Date / Time bee venom protein (honey bee) Allergy Intermediate RED, SHORT Verified 03/18/24 06:04 OF BREATH No Known Drug Allergies Allergy Unknown NKDA Verified 03/18/24 06:04 Home Medications Medication Instructions Recorded Confirmed Type allopurinol 300 mg tablet 300 mg PO QAM 01/24/24 03/18/24 History amlodipine 10 mg tablet 10 mg PO QAM 01/24/24 03/18/24 History aspirin 325 mg tablet 325 mg PO QAM 01/24/24 03/18/24 History baclofen 10 mg tablet 10 mg PO TID 01/24/24 03/18/24 History buspirone 15 mg tablet 15 mg PO QAM 01/24/24 03/18/24 History carvedilol 25 mg tablet (Coreg) 50 mg PO BID 01/24/24 03/18/24 History duloxetine 60 mg capsule,delayed 60 mg PO QAM 01/24/24 03/18/24 History release eszopiclone 1 mg tablet (Lunesta) 1 mg PO HS 01/24/24 03/18/24 History furosemide 40 mg tablet (Lasix) 40 mg PO UD 01/24/24 03/18/24 History insulin lispro 100 unit/mL 30 sliding scale dose subcut AC 01/24/24 03/18/24 History subcutaneous pen (Humalog KwikPen (U-100) Insulin) omega 4-oiy-xwu-fish oil 1,000 mg 1 cap PO QAM 01/24/24 03/18/24 History (120 mg-180 mg) capsule (Fish Oil) pantoprazole 40 mg tablet,delayed 40 mg PO QAM 01/24/24 03/18/24 History release (Protonix) pregabalin 150 mg capsule 150 mg PO TID 01/24/24 03/18/24 History prochlorperazine maleate 10 mg 10 mg PO TID PRN Nausea And 01/24/24 03/18/24 History tablet (Compazine) Vomiting sodium bicarbonate 650 mg tablet 1,950 mg PO TID 01/24/24 03/18/24 History Medical Thc 1 dose PO UD PRN ud 03/06/24 03/18/24 History atorvastatin 80 mg tablet 80 mg PO QAM 03/06/24 03/18/24 History gabapentin 300 mg capsule 300 mg PO BID 03/06/24 03/18/24 History hydralazine 10 mg tablet 10 mg PO TID 03/06/24 03/18/24 History insulin degludec 200 unit/mL (3 120 unit subcut QAM 03/06/24 03/18/24 History mL) subcutaneous pen (Tresiba FlexTouch U-200 insulin) Past Med/Surg History Problem List (Updated 03/18/24 @ 07:45 by Julio Andrade DO) Cervical stenosis of spinal canal Acute kidney injury superimposed on CKD (Acute) Depression with anxiety Hyperparathyroidism 05/20/22 Chronic renal disease, stage 3, moderately decreased glomerular filtration rate (GFR) between 30-59 mL/min/1.73 square meter Diabetic nephropathy associated with type 2 diabetes mellitus Diabetes type 2, uncontrolled Diabetic peripheral neuropathy associated with type 2 diabetes mellitus 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/15/19 Dysesthesia 03/15/19 Dyslipidemia Hypercalcemia 03/15/19 Hypertension Nephrolithiasis Vitamin D deficiency Acidosis, metabolic 10/16/20 Anemia of chronic disease GERD (gastroesophageal reflux disease) Medical History (Updated 03/18/24 @ 07:45 by Julio Andrade DO) Cervical disc herniation MRI 10/2023, limited rom of neck Anemia of chronic disease has required blood transfusions in past-last transfusion last year Dyslipidemia Hypertension controlled, stable per pt History of nephrolithiasis x 1, passsed on own Diabetic peripheral neuropathy GERD (gastroesophageal reflux disease) controlled, stable per pt Diabetes mellitus, type 2 IDDM Chronic kidney disease, stage [address] dwight colon at [facility] Hyperparathyroidism Depression with anxiety History of endometriosis History of renal dialysis (04/2017) - [facility] - ARF 2/2 DKA Hx of Clostridium difficile infection 2011 - treated, no problems since Chronic nausea Surgical History History of esophagogastroduodenoscopy (EGD) Hx of colonoscopy History of open reduction and internal fixation (ORIF) procedure (2018) left fibula Hx of tracheostomy (2013) R/T COMPLICATIONS AFTER ILEOSTOMY REVERSAL SURGERY IN 2011; HAS SINCE BEEN REVERSED History of rotator cuff surgery (2017) RT History of lumbar spinal fusion (2006) History of reversal of ileostomy (2012) History of ileostomy (2012) Status post cholecystectomy (2017) "cholelithiasis" Status post partial colectomy (2012) "for C diff colitis" Family History (Updated 03/06/24 @ 14:36 by Citlali Welch RN) Mother Diabetes Other No family history of adverse response to anesthesia Social History Smoking Status: Former smoker Tobacco Type: Cigarettes Cigarettes Per Day: 5; Smoking End Date: 12/16/2023 (advised); Second Hand Exposure: No; Do You Dip or Chew Tobacco: No; Tobacco Cessation Education Requested by Patient: No Hx Alcohol Use: No Hx Substance Use: No Preferred Language: Ecuadorean Communication Ability: Effective Financial Management Analyst Required: No Beliefs That Will Affect Care: None marital status: Current Living Situation: Spouse Other Information That Helps Us Care for You: No Feels Safe at Home: Yes Safety Concerns: Feels Safe At This Time Assistive Devices: None Physical Exam Physical Exam: Patient is alert and oriented Heart regular rhythm Lungs clear Results & Data Results & Data Vital Signs (Past 12 Hours) Vital Signs Temp Pulse Resp BP Pulse Ox O2 Del Method 03/18/24 05:48 37 C 79 20 179/93 H 98 Room Air
[2024-03-18] MEDS: ceFAZolin 2000MG 2,000 MG/15 ML SYR IV SCH ×2 (07:53→15:35)
[2024-03-18] MEDS: ceFAZolin 330 MG/ML 1 GM VIAL ONE (08:23)
[2024-03-18] MEDS: FLOSEAL HEMOSTATIC MATRIX 10ML TOP ONE (08:24)
--- OUTSIDE RECORDS SUMMARY | 2024-03-18 08:55 | External Medical Summary | Summary of Care ---
Author Name Unknown Organization [facility] Address [address] [place] [address] Phone [phone] Care Team Providers Care Solid Waste Management Engineer Name Role Phone Wiliam Garsia MD Primary Care Provider [phone] Reason for Visit * Reason Onset Date Comments Returning Call 03/13/2024 Encounter Details Date Type Department Care Team (Late st Contact Info) Description 03/13/2024 Telephone [facility], Jad العلي [address] [place] [address] [place] [phone] [place] [address] Returning Call Allergies Active Allergy Reactions Criticality Noted Date Comments Bee Venom 07/08/2021 Hydralazine Edema Other 11/22/2022 documented as of this encounter (statuses as of 03/14/2024) Medications CYMBALTA 60 MG PO CPEP Take 1 Capsule by mouth in the morning. Active Insulin Degludec 100 UNIT/ML Subcutaneous Solution Pen-injector Inject under the skin daily. Active Insulin Lispro 100 UNIT/ML Subcutaneous Solution Cartridge Inject under the skin. Active prochlorperazine (COMPAZINE) 10 MG TabletIndication s:Nausea Take 1 Tab by mouth every 8 hours as needed for Nausea. 30 Tab 6 9 Active Pregabalin 150 MG Oral Capsule (Lyrica) Take 1 Capsule by mouth in the morning and 1 Capsule at noon and 1 Capsule before bedtime. 1 Active Fish Oil 1000 MG Oral Capsule Take 1 Capsule by mouth in the morning. Takes 2 capsules in the AM. Active Baclofen 10 MG Oral Tablet (Lioresal) Take 1 Tablet by mouth in the morning and 1 Tablet at noon and 1 Tablet before bedtime. 2 Active busPIRone HCl 15 MG Oral Tablet (Buspar) Take 1 Tablet by mouth in the morning. Active Carvedilol 25 MG Oral Tablet Take 1 Tablet by mouth 2 times a day with morning and evening meals. Takes 2 tablets in the AM 2 at bedtime Active Ajovy 225 MG/1.5ML Subcutaneous Solution Prefilled Syringe Every Month . 2 Active Pantoprazole Sodium 40 MG Oral Tablet Delayed Release Take by mouth . Active Pioglitazone HCl 30 MG Oral Tablet (Actos) Take 1 Tablet by mouth in the morning. 2 Active Atorvastatin Calcium 20 MG Oral Tablet (Lipitor) Take 4 Tablets by mouth in the morning. 30 Tablet 3 Active amLODIPine Besylate 10 MG Oral Tablet (Norvasc) Take 1 Tablet by mouth in the morning. 3 Active Chlorthalidone 25 MG Oral Tablet (Hygroton)Indica tions:Localized edema,Chronic kidney disease, stage 3b (HCC),HTN, goal below 130/80 TAKE 1 TABLET BY MOUTH EVERY DAY IN THE MORNING 90 Tablet 3 4 Active Additional Information Patient not taking.Reported on 02/05/2024 Eszopiclone 1 MG Oral Tablet Take 1 Tablet by mouth daily as needed. 4 Active Aspirin 325 MG Oral Tablet Take 1 Tablet by mouth in the morning. Active Entresto 97-103 MG Oral Tablet Take 1 Tablet by mouth in the morning and 1 Tablet before bedtime. 4 Active Sodium Bicarbonate 650 MG Oral TabletIndication s:Metabolic acidosis Take 3 Tablets by mouth in the morning and 3 Tablets at noon and 3 Tablets before bedtime. 360 Tablet 6 4 Active Allopurinol 300 MG Oral Tablet (Zyloprim)Indica tions:Chronic kidney disease, stage 3b (HCC),Hyperurice noah TAKE ONE TABLET BY MOUTH EVERY MORNING 90 Tablet 3 4 Active Furosemide 20 MG Oral Tablet (Lasix)Indicatio ns:Chronic kidney disease, stage 3b (HCC),Localized edema,HTN, goal below 130/80 TAKE TWO TABLETS BY MOUTH EVERY MORNING AND TWO TABLETS FOUR HOURS LATER in DAY 360 Tablet 3 4 Active documented as of this encounter (statuses as of 03/14/2024) Active Problems Problem Noted Date Diagnosed Date [...] of moderate degree 09/11/2011 S/P colectomy 09/11/2011 Overview (09/11/2011): 2/2 to C-diff infection Anemia 09/11/2011 Hypernatremia 09/11/2011 C. difficile colitis 09/10/2011 Hypokalemia 09/10/2011 BMI 35-39 ISOLATED (SEE ACTUAL BMI) 09/21/2009 Overview (09/21/2009): Per Obesity Protocol, #19 Migraine without aura 12/28/2007 Esophageal reflux 12/03/2007 Tobacco use disorder 07/30/2007 MEDICATION USE AGREEMENT 07/29/2007 HTN, goal below 130/80 07/09/2007 Lumbago 07/09/2007 Generalized osteoarthritis of multiple sites Peptic ulcer 06/04/2007 documented as of this encounter (statuses as of 03/14/2024) Resolved Problems Problem Noted Date Diagnosed Date [...] as of this encounter (statuses as of 03/14/2024) Immunizations Name Administration Dates Next Due COVID-19 [...] years and over) Not on file 09/26/2023 Comments No Sex and Gender Information Value Date Recorded Sex Assigned at Not on file Legal Sex Female 6:33 AM EST Gender Identity Not on file Sexual Orientation Not on file documented as of this encounter Miscellaneous Notes * Telephone Encounter - Shavonne Morales RP - 03/14/2024 4:08 PM EST 02/26/24 03/12/24 11:15 Systolic BP 160 mm/Hg (H) [1] 126 mm/Hg [1] Diastolic BP 90 mm/Hg [1] 76 mm/Hg [1] Pulse 75 bpm [1] 75 bpm [1] Note: Showing the most recent values for these dates. There are additional values that can be seen in Synopsis. (H): Data is abnormally high [1] CH:VITAL_READING_TYPE=SPOT CH:PERIPHERAL_BRAND=IHEALTH Called and spoke to patient. Reviewed nephro plan per 02/08 TE. Also reviewed importance of checkingBP daily via remote monitoring program. Encouraged to establish testing schedule to help with compliance. Patient agreeable. Will continue to follow up upon alerts. Shavonne Morales RPh, PharmD Clinical Pharmacist - Strategy Planning Consultant Medication Therapy [facility] 03/14/2024, 4:12 PM [phone] * Telephone Encounter - Krishna Terrazas CPhT - 03/13/2024 9:06 AM EST Caller's name: Virginia Hernandez Preferred call back number(OFFICE NUMBER FOR ): [phone] Reason for call: patient calling stating she was told by Nephrology that Osmar Marvin has been trying to reach her. Thank you, Krishna Terrazas CPhT Sports Equipment Supervisor II [facility] ([facility] 03/13/2024,9:06 AM documented in this encounter Plan of Treatment Upcoming Encounters Date Type Department Care Team (Late st Contact Info) Description 07/05/2024 1:00 PM EDT Office Visit Nephrology [address] [place] [address] Kate Rodriguez PA-C [address] [place], [place] [address] Health Maintenance Due Date Last Done Comments [...] of 2) 2023 CKD PHOS USE SMARTSET 22966 11/19/202311/08, 05/30/2022, 07/19/2021, Additional history exists COVID-19 Vaccine ( season) 2023 01/17/2023, 08/13/2021, 01/08/2021, Additional history exists CKD HGB USE SMARTSET 33136 02/17/202402/16, 02/16/2023, 05/30/2022, Additional history exists HbA1c 03/13/2024 09/12/2023, 1112/2022, 06/11/2021, Additional history exists GFR 08/15/2024 02/16/2024, 01/09, 01/31/2024, Additional history exists Albumin/Creatinine Ratio 02/15/2025 024, 02/05/2024, 02/16/2023, Additional history exists Lipid Panel 02/04/2029 02/05/2024, 10/08, 07/05/2019, Additional history exists Influenza Vaccine (FLU shot) [...] Power of Attor albert? No Care Teams Solid Waste Management Engineer Relationship Specialty Start Date End Date Wiliam Garsia MD [address] [place] [address] PCP - General Family Medicine 05/05/17 documented as of this encounter
--- OUTSIDE RECORDS SUMMARY | 2024-03-18 08:56 | External Medical Summary ---
Author Name Unknown Address Unknown Organization [id number]:[facility] [place] - [address] [place] [address] Laboratory Report Ordering Provider Test Date Status JULIO C BARNEY 02/16/2024 07:35:27 Final Normal: <30 mg/g creatinine< br/>High: 30-300 mg/g creatinine
Very High: >300 mg/g creatinine
Nephrotic: >2200 mg/g creatinine Observation Date Value Abnormality Reference (Units ) Status Albumin, Urine 02/16/2024 07:35:27 114.00 (mg/dL) Final Creatinine, Urine 02/16/2024 07:35:27 42 (mg/dL) Final Albumin/Creatinine [Mass Ratio] in Urine 02/16/2024 07:35:27 2714 Above high normal <30 (mg/g Creat) Final Performing Location [facility] [place] - [address] [address]
--- OUTSIDE RECORDS SUMMARY | 2024-03-18 08:56 | External Medical Summary | Summary of Care ---
Author Name Unknown Organization [facility] Address [address] [place] [address] Phone [phone] Care Team Providers Care Rn Documentation Name Role Phone Wiliam Garsia MD Primary Care Provider [phone] Reason for Visit * Reason Onset Date Comments Test Results 02/09/2024 Encounter Details Date Type Department Care Team (Late st Contact Info) Description 02/09/2024 Telephone NephrologyKar [address] [place] [address] Gracie Lucas MD [address] [place] [address] Test Results Allergies Active Allergy Reactions Criticality Noted Date Comments Bee Venom 07/08/2021 Hydralazine Edema Other 11/22/2022 documented as of this encounter (statuses as of 03/12/2024) Medications CYMBALTA 60 MG PO CPEP Take [...] by mouth in the morning. 3 Active Furosemide 20 MG Oral Tablet (Lasix)Indicatio ns:Localized edema,Chronic kidney disease, stage 3b (HCC),HTN, goal below 130/80 Take 2 tablets in morning and 2 tablets 4 hrs (or more) later in day 360 Tablet 3 4 Active Allopurinol 300 MG Oral Tablet (Zyloprim)Indica tions:Chronic kidney disease, stage 3b (HCC),Hyperurice noah Take 1 Tablet by mouth in the morning. 90 Tablet 3 4 Active Chlorthalidone 25 MG Oral Tablet (Hygroton)Indica [...] before bedtime. 360 Tablet 6 4 Active documented as of this encounter (statuses as of 03/12/2024) Active Problems Problem Noted Date Diagnosed Date [...] as of this encounter (statuses as of 03/12/2024) Resolved Problems Problem Noted Date Diagnosed Date [...] as of this encounter (statuses as of 03/12/2024) Immunizations Name Administration Dates Next Due COVID-19 [...] encounter Miscellaneous Notes * Telephone Encounter - Marian Ellis OSA - 03/12/2024 8:52 AM EST Ana on the line from [place] on the line to check the status of pre op clearances and recommendations. Please contact Ana to advise. Thank you! * Telephone Encounter - Sally Champion RN - 02/09/2024 1:57 PM EDT TE with pt regarding lab results. She is aware to repeat tests in 10 days. Orders placed. Aware to continue to hold Jardiance until after surgery. Surgery is scheduled for 03/18. * Telephone Encounter - Sally Champion RN - 02/09/2024 1:57 PM EDT ----- Message from Gracie Lucas MD sent at 02/09/2024 12:20 PM EDT ----- Kidney labs stable with ongoing proteinuria greater than 1000 mg daily; at February 04 office visit, we resumed Entresto. Remains off of Jardiance; will likely resume Jardiance at 10 mg daily dose but suggest we get her through the next surgery first and then consider resuming Jardiance given risk of changes to labs. Continue with plan to repeat ACR, basic metabolic panel after about 10 days back on Entresto: Neph nurse please ensure orders are in My [facility] sent documented in this encounter Plan of Treatment Upcoming Encounters Date Type Department Care Team (Late st Contact Info) Description 07/05/2024 1:00 PM EDT Office Visit Nephrology [address] [place] [address] Kate Rodriguez PA-C 200 [facility] [place] [address] Health Maintenance Due Date Last Done Comments [...] of 2) 2023 CKD PHOS USE SMARTSET 42560 11/19/202311/08, 05/30/2022, 07/19/2021, Additional history exists COVID-19 Vaccine ( season) 2023 01/17/2023, 08/13/2021, 01/08/2021, Additional history exists CKD HGB USE SMARTSET 79478 02/17/202402/16, 02/16/2023, 05/30/2022, Additional history exists HbA1c [...] Not on filedocumented as of this encounter Results * (ABNORMAL) BASIC METABOLIC PANEL (02/16/2024 7:35 AM EST) BUN 24(H) 6 - 20 mg/dL 02/16/2024 4:27 PM EST [facility] CREATININE 1.5(H) 0.5 - 1.0 mg/dL 02/16/2024 4:27 PM EST [facility] EGFR 43(L) >=60 mL/min 02/16/2024 4:27 PM EST [facility] Comment:eGFR is calculated b ased on the CKD-EPI 2020 equation. SODIUM 145 135 - 146 mmol/L 02/16/2024 4:27 PM EST [facility] POTASSIUM 3.8 3.5 - 5.1 mmol/L 02/16/2024 4:27 PM EST [facility] CHLORIDE 104 98 - 107 mmol/L 02/16/2024 4:27 PM EST [facility] CO2 24 22 - 32 mmol/L 02/16/2024 4:27 PM EST [facility] ANION GAP 17(H) 7 - 15 mmol/L 02/16/2024 4:27 PM EST [facility] GLUCOSE 101 70 - 120 mg/dL 02/16/2024 4:27 PM EST [facility] CALCIUM 9.6 8.4 - 10.2 mg/dL 02/16/2024 4:27 PM EST [facility] Blood Venous blood specimen / Unknown Venipuncture / Unknown 02/16/2024 7:35 AM EST 02/16/2024 7:35 AM EST us Gracie Lucas MD LAB BLOOD ORDERABLES Maribell clifford Result [facility] [address] [place] [address] * (ABNORMAL) ALBUMIN / CREATININE RATIO, URINE (02/16/2024 7:35 AM EST) Albumin, Random Urine 114.00 mg/dL 02/16/2024 3:44 PM EST LAB[facility]ATORY [facility] Creatinine, Random Urine 42 mg/dL 02/16/2024 3:44 PM EST [facility] Albumin / Creatinine Ratio, Urine 2,714(H) <30 mg/g Creat 02/16/2024 3:44 PM EST LAB[facility]ORY [facility] Urine Urine specimen obtained by clean catch procedure / Unknown Non-blood Collection / Unknown 02/16/2024 7:35 AM EST 02/16/2024 7:35 AM EST Narrative LAB[facility]ATORY [facility] - 02/16/2024 3:44 PM EST Normal: <30 mg/g creatinine High: 30-300 mg/g creatinine Very High: >300 mg/g creatinine Nephrotic: >2200 mg/g creatinine us Gracie Lucas MD LAB URINE ORDERABLES Maribell clifford Result Performing Organization Address City/State/[facility] Co de Phone Number LABORATORY [facility] [address] [place] [address] documented in this encounter Visit Diagnoses Diagnosis Chronic kidney disease, stage 3b (HCC)- Primary documented in this encounter Advance Directives * Full Code [...] Power of Attor albert? No Care Teams Rn Documentation Relationship Specialty Start Date End Date Wiliam Garsia MD [address], [place] [phone] PCP - General Family Medicine 05/05/17 documented as of this encounter
--- OUTSIDE RECORDS SUMMARY | 2024-03-18 08:56 | External Medical Summary | Summary of Care ---
Author Name Unknown Organization [facility] Address [address] [place] [address] Phone [phone] Care Team Providers Care Medical Planner Name Role Phone Wiliam Garsia MD Primary Care Provider [phone] Encounter Details Date Type Department Care Team (Late st Contact Info) Description 02/14/2024 Orders Only PATIENT PORTAL DO NOT DELETE THIS DEPT USED BY [place] [id number] Allergies Active Allergy Reactions Criticality Noted Date Comments Bee Venom 07/08/2021 Hydralazine Edema Other 11/22/2022 documented as of this encounter (statuses as of 02/14/2024) Medications Medication Sig Dispensed Refills Start Date End Date Status CYMBALTA 60 MG PO CPEP Take 1 Capsule by mouth in the morning. Active Insulin Degludec 100 UNIT/ML Subcutaneous Solution Pen-injector Inject under the skin daily. Active Insulin Lispro 100 UNIT/ML Subcutaneous Solution Cartridge Inject under the skin. Active prochlorperazine (COMPAZINE) 10 MG TabletIndications:N ausea Take 1 Tab by mouth every 8 hours as needed for Nausea. 30 Tab 6 04/30/2018 Active Pregabalin 150 MG Oral Capsule (Lyrica) Take 1 Capsule by mouth in the morning and 1 Capsule at noon and 1 Capsule before bedtime. 07/08/2020 Active Fish Oil 1000 MG Oral Capsule [...] by mouth in the morning. 05/25/2021 Active Atorvastatin Calcium 20 MG Oral Tablet (Lipitor) Take 4 Tablets by mouth in the morning. 30 Tablet 05/30/2022 Active amLODIPine Besylate 10 MG Oral Tablet (Norvasc) Take 1 Tablet by mouth in the morning. 08/17/2022 Active Furosemide 20 MG Oral Tablet (Lasix)Indications: Localized edema,Chronic kidney disease, stage 3b (HCC),HTN, goal below 130/80 Take 2 tablets in morning and 2 tablets 4 hrs (or more) later in day 360 Tablet 3 06/07/2023 Active Allopurinol 300 MG Oral Tablet (Zyloprim)Indicatio ns:Chronic kidney disease, stage 3b (HCC),Hyperuricemia Take 1 Tablet by mouth in the morning. 90 Tablet 3 06/07/2023 Active Chlorthalidone 25 MG Oral Tablet (Hygroton)Indicatio ns:Localized edema,Chronic kidney disease, stage 3b (HCC),HTN, goal below 130/80 TAKE 1 TABLET BY MOUTH EVERY DAY IN THE MORNING 90 Tablet 3 10/30/2023 Active Additional Information Patient not taking.Reported on 02/05/2024 Eszopiclone 1 MG Oral Tablet Take 1 Tablet by mouth daily as needed. 12/12/2023 Active Aspirin 325 MG Oral Tablet Take 1 Tablet by mouth in the morning. Active Entresto 97-103 MG Oral Tablet Take 1 Tablet by mouth in the morning and 1 Tablet before bedtime. 02/05/2024 Active Sodium Bicarbonate 650 MG Oral TabletIndications:M etabolic acidosis Take 3 Tablets by mouth in the morning and 3 Tablets at noon and 3 Tablets before bedtime. 360 Tablet 6 02/05/2024 Active documented as of this encounter (statuses as of 02/14/2024) Active Problems Problem Noted Date Diagnosed Date [...] moderate degree 09/11/2011 S/P colectomy 09/11/2011 Overview: 2/ to C-diff infection Anemia 09/11/2011 Hypernatremia 09/11/2011 C. difficile colitis 09/10/2011 Hypokalemia 09/10/2011 BMI 35-39 ISOLATED (SEE ACTUAL BMI) 09/21/2009 Overview: Per Obesity Protocol, #19 Migraine without aura 12/28/2007 Esophageal reflux 12/03/2007 Tobacco use disorder 07/30/2007 MEDICATION USE AGREEMENT 07/29/2007 HTN, goal below 130/80 07/09/2007 Lumbago 07/09/2007 Generalized osteoarthritis of multiple sites Peptic ulcer 06/04/2007 documented as of this encounter (statuses as of 02/14/2024) Resolved Problems Problem Noted Date Diagnosed Date [...] as of this encounter (statuses as of 02/14/2024) Immunizations Name Administration Dates Next Due COVID-19 [...] on file documented as of this encounter Plan of Treatment Upcoming Encounters Date Type Department Care Team (Late st Contact Info) Description 07/05/2024 1:00 PM EDT Office Visit Nephrology [address] [place] [address] Kate Rodriguez PA-C 200 [facility] [place], [place] [address] Health Maintenance Due Date Last Done Comments [...] of 2) 2023 CKD PHOS USE SMARTSET 73026 11/19/202311/08, 05/30/2022, 07/19/2021, Additional history exists COVID-19 Vaccine ( season) 2023 01/17/2023, 08/13/2021, 01/08/2021, Additional history exists CKD HGB USE SMARTSET 50415 02/17/202402/16, 02/16/2023, 05/30/2022, Additional history exists HbA1c 03/13/2024 09/12/2023, 1112/2022, 06/11/2021, Additional history exists GFR 08/05/2024 02/05/2024, 0708/2023, 09/12/2023, Additional history exists Albumin/Creatinine Ratio 02/04/202502/04/2 024, 02/16/2023, 05/30/2022, Additional history exists Lipid Panel 02/04/2029 02/05/2024, [...] patient have Health Care Power of Attor ablert? No Care Teams Medical Planner Relationship Specialty Start Date End Date Wiliam Garsia MD [address] [place] [address] PCP - General Family Medicine 05/05/17 documented as of this encounter
--- OUTSIDE RECORDS SUMMARY | 2024-03-18 08:56 | External Medical Summary ---
Author Name Unknown Address Unknown Organization K01:LAB[facility]ATORY [facility] [place] [address] [place] [address] Laboratory Report Ordering Provider Test Date Status JULIO C BARNEY 02/16/2024 07:35:27 Final Observation Date Value Abnormality Reference (Units ) Status BUN 02/16/2024 07:35:27 24 Above high normal 6-20 (mg/dL) Final Creatinine 02/16/2024 07:35:27 1.5 Above high normal 0.5-1.0 (mg/dL) Final Glomerular filtration rate/1.73 sq M.predicted [Volume Rate/Area] in Serum, Plasma or Blood by Creatinine-based formula (CKD-EPI) 02/16/2024 07:35:27 43 Below low normal >=60 (mL/min) Final eGFR is calculated based on the CKD-EPI 2020 equation. Sodium 02/16/2024 07:35:27 145 135-146 (m mol/L) Final Potassium 02/16/2024 07:35:27 3.8 3.5-5.1 (m mol/L) Final Cl 02/16/2024 07:35:27 104 98-107 (mm ol/L) Final CO2 02/16/2024 07:35:27 24 22-32 (mmo l/L) Final Anion gap 02/16/2024 07:35:27 17 Above high normal 7- 15 (mmol/L) Final Glucose 02/16/2024 07:35:27 101 70-120 (mg /dL) Final Calcium 02/16/2024 07:35:27 9.6 8.4-10.2 ( mg/dL) Final Performing Location LABORATORY [facility] - [address] [place] [address]
--- OUTSIDE RECORDS SUMMARY | 2024-03-18 08:56 | External Medical Summary | Summary of Care ---
Author Name Unknown Organization [facility] Address [address] [place] [address] Phone [phone] Care Team Providers Care Cloth Measurer Machine Name Role Phone Wiliam Garsia MD Primary Care Provider [phone] Reason for Visit * Reason Onset Date Comments Test Results 02/09/2024 Encounter Details Date Type Department Care Team (Late st Contact Info) Description 02/09/2024 Telephone NephrologyKar [address] [place] [address] Gracie Lucas MD [address] [place] [address] Test Results Allergies Active Allergy Reactions Criticality [...] Solution Cartridge Inject under the skin. Active prochlorperazin e (COMPAZINE) 10 MG TabletIndicatio ns:Nausea Take 1 Tab by mouth every 8 hours as needed for Nausea. 30 Tab 6 04/30/19 Active Pregabalin 150 MG Oral Capsule (Lyrica) Take 1 Capsule by mouth in the morning and 1 Capsule at noon and 1 Capsule before bedtime. 07/09/19 21 Active Fish Oil 1000 MG Oral Capsule Take 1 Capsule by mouth in the morning. Takes 2 capsules in the AM. Active Baclofen 10 MG Oral Tablet (Lioresal) Take 1 Tablet by mouth in the morning and 1 Tablet at noon and 1 Tablet before bedtime. 05/29/19 22 Active busPIRone HCl 15 MG Oral Tablet (Buspar) Take 1 Tablet by mouth in the morning. Active Carvedilol 25 MG Oral Tablet Take 1 Tablet by mouth 2 times a day with morning and evening meals. Takes 2 tablets in the AM 2 at bedtime Active Ajovy 225 MG/1.5ML Subcutaneous Solution Prefilled Syringe Every Month . 07/07/19 Active Pantoprazole Sodium 40 MG Oral Tablet Delayed Release Take by mouth . Active Pioglitazone HCl 30 MG Oral Tablet (Actos) Take 1 Tablet by mouth in the morning. 05/25/19 Active Atorvastatin Calcium 20 MG Oral Tablet (Lipitor) Take 4 Tablets by mouth in the morning. 30 Tablet 05/30/19 23 Active amLODIPine Besylate 10 MG Oral Tablet (Norvasc) Take 1 Tablet by mouth in the morning. 08/18/19 23 Active Chlorthalidone 25 MG Oral Tablet (Hygroton)Indic ations:Localize d edema,Chronic kidney disease, stage 3b (HCC),HTN, goal below 130/80 TAKE 1 TABLET BY MOUTH EVERY DAY IN THE MORNING 90 Tablet 3 10/30/19 Active Additional Information Patient not taking.Reported on 02/05/2024 Eszopiclone 1 MG Oral Tablet Take 1 Tablet by mouth daily as needed. 12/12/19 Active Aspirin 325 MG Oral Tablet Take 1 Tablet by mouth in the morning. Active Entresto 97-103 MG Oral Tablet Take 1 Tablet by mouth in the morning and 1 Tablet before bedtime. 02/05/20 24 Active Sodium Bicarbonate 650 MG Oral TabletIndicatio ns:Metabolic acidosis Take 3 Tablets by mouth in the morning and 3 Tablets at noon and 3 Tablets before bedtime. 360 Tablet 6 02/05/20 24 Active Furosemide 20 MG Oral Tablet (Lasix)Indicati ons:Localized edema,Chronic kidney disease, stage 3b (HCC),HTN, goal below 130/80 Take 2 tablets in morning and 2 tablets 4 hrs (or more) later in day 360 Tablet 3 06/07/19 24 024 Discontinued Allopurinol 300 MG Oral Tablet (Zyloprim)Indic ations:Chronic kidney disease, stage 3b (HCC),Hyperuric emia Take 1 Tablet by mouth in the morning. 90 Tablet 3 06/07/19 24 024 Discontinued documented as of this encounter (statuses as [...] Per CKD protocol Acute kidney injury 07/15/2012 08/15/20 23 Salmonella bacteremia 09/13/20112017 Toxic encephalopathy 09/11/2011 [...] encounter Miscellaneous Notes * Telephone Encounter - Anjelica Mendoza LPN - 03/12/2024 2:08 PM EST Pt is having back surgery 03/18/24 Still awaiting MD review of labs from 02/16/24 for final clearance MD please review and advise Thanks * Telephone Encounter - Marian Ellis OSA [...] 07/05/2024 1:00 PM EDT Office Visit Nephrology [address] [place] [address] Kate Rodriguez PA-C [address] [place] [address] Health Maintenance Due Date Last Done Comments [...] of 2) 2023 CKD PHOS USE SMARTSET 33073 11/19/202311/08, 05/30/2022, 07/19/2021, Additional history exists COVID-19 Vaccine ( season) 2023 01/17/2023, 08/13/2021, 01/08/2021, Additional history exists CKD HGB USE SMARTSET 28599 02/17/202402/16, 02/16/2023, 05/30/2022, Additional history exists HbA1c 03/13/2024 09/12/2023, 11/0 12/2022, 06/11/2021, Additional history exists GFR 08/15/2024 02/16/2024, [...] 7:35 AM EST 02/16/2024 7:35 AM EST Gracie Lucas MD LAB BLOOD ORDERABLES Maribell l Result Performing Organization Address City/[facility]/ZIP Co de Phone Number [facility] [address] [place] [address] * (ABNORMAL) ALBUMIN / CREATININE RATIO, URINE (02/16/2024 7:35 AM EST) Albumin, Random Urine 114.00 mg/dL 02/16/2024 3:44 PM EST [facility] Creatinine, Random Urine 42 mg/dL 02/16/2024 3:44 PM EST [facility] Albumin / Creatinine Ratio, Urine 2,714(H) <30 mg/g Creat 02/16/2024 3:44 PM EST [facility] Urine Urine specimen obtained by clean catch procedure / Unknown Non-blood Collection / Unknown 02/16/2024 7:35 AM EST 02/16/2024 7:35 AM EST Narrative [facility] - 02/16/2024 3:44 PM EST Normal: <30 mg/g creatinine High: 30-300 mg/g creatinine Very High: >300 mg/g creatinine Nephrotic: >2200 mg/g creatinine Gracie Lucas MD LAB URINE ORDERABLES Maribell l Result Performing Organization Address [facility] Co de Phone Number LABORATORY [address] [address] documented in this encounter Visit Diagnoses Diagnosis [...] Power of Attor albert? No Care Teams Cloth Measurer Machine Relationship Specialty Start Date End Date Wiliam Garsia MD [address] [place] [address] PCP - General Family Medicine 05/05/17 documented as of this encounter
--- OUTSIDE RECORDS SUMMARY | 2024-03-18 08:56 | External Medical Summary | Summary of Care ---
Author Name Unknown Organization [facility] Address [address] [place] [address] Phone [phone] Care Team Providers Care Machine Printer Hose Name Role Phone Wiliam Garsia MD Primary Care Provider Reason for Visit * Reason Onset Date Comments Test Results 02/09/2024 Encounter Details Date Type Department Care Team (Late st Contact Info) Description 02/09/2024 Telephone NephrologyKar [address] [place] [address] Gracie Lucas MD [address] [place] [address] Test Results Allergies Active Allergy Reactions Criticality Noted Date Comments Bee Venom 07/08/2021 Hydralazine Edema Other 11/22/2022 documented as of this encounter (statuses as of 03/13/2024) Medications CYMBALTA 60 MG PO CPEP Take [...] as of this encounter (statuses as of 03/13/2024) Active Problems Problem Noted Date Diagnosed Date [...] as of this encounter (statuses as of 03/13/2024) Resolved Problems Problem Noted Date Diagnosed Date [...] as of this encounter (statuses as of 03/13/2024) Immunizations Name Administration Dates Next Due COVID-19 [...] as of this encounter Miscellaneous Notes * Addendum Note - Lidia Mendoza LPN - 03/13/2024 8:57 AM ESTAddended by: LIDIA MENDOZA on: 03/13/2024 08:57 AM Modules accepted: Orders * Telephone Encounter - Lidia Mendoza LPN - 03/13/2024 8:56 AM EST Ana is made aware she states that she has access to [employer] to review * Telephone Encounter - Lidia Mendoza LPN - 03/13/2024 8:53 AM EST Pt is made aware cleared for surgery She is given Shavonne's number to contact Pt is ccurrently on Remote Program Does not do every day as she has difficulty getting it work some day Pt will repeat BMP 1 week after rehab discharge Order placed in [employer] lab system * Telephone Encounter - Gracie Lucas MD - 03/12/2024 4:20 PM EST Proteinuria markedly worse off of jardiance Blood tests of kidney function acceptable off of jardiance and back on entresto 02/12/24 10:53 02/19/24 11:11 02/22/24 09:26 02/26/24 03/12/24 11:15 Systolic BP 134 mm/Hg [1] 161 mm/Hg (H) [1] 170 mm/Hg (H) [1] 160 mm/Hg (H) [1] 126 mm/Hg [1] Diastolic BP 81 mm/Hg [1] 93 mm/Hg (H) [1] 85 mm/Hg [1] 90 mm/Hg [1] 76 mm/Hg [1] Pulse 78 bpm [1] 78 bpm [1] 81 bpm [1] 75 bpm [1] 75 bpm [1] OK from neph standpoint to proceed w/ back surgery; >>>if not currently doing ACTIVE remote home monitoring (as opposed ot maintenance program), she should be. On ACTIVE remote BP monitoirng, need to check BP DAILY [facility] has been trying to reach pt Neph nurse pls update pt needs to check BP daily and return call to [facility] Shavonne Morales, [facility], PharmD Clinical Pharmacist - Sales Systems Engineer [facility] Ph.[phone] She should get BMP one week after d/c from rehab or if no rehab IP from hospital and we will consider resuming jardiance at that time. [facility] * Telephone Encounter - Lidia Mendoza LPN - 03/12/2024 2:08 PM EST Pt is having back surgery 03/18/24 Still awaiting MD review of labs from 02/16/24 for final clearance MD please review and advise Thanks * Telephone Encounter - Marian Ellis OSA - 03/12/2024 8:52 AM EST Ana on the line from [employer] [place] on the line to check the [...] 07/05/2024 1:00 PM EDT Office Visit Nephrology [address] [place] [address] Kate Rodriguez PA-C 200 [facility] [place] [address] Scheduled Orders Name Type Priority Associated Diagnoses Orde r Schedule BASIC METABOLIC PANEL Lab Routine Chronic kidney disease, stage 3b (HCC) Expected: 03/13/2024 (Approximate), Expires: 03/13/2025 Health Maintenance Due Date Last Done Comments [...] of 2) 2023 CKD PHOS USE SMARTSET 65161 11/19/202311/08, 05/30/2022, 07/19/2021, Additional history exists COVID-19 Vaccine ( season) 2023 01/17/2023, 08/13/2021, 01/08/2021, Additional history exists CKD HGB USE SMARTSET 44845 02/17/202402/16, 02/16/2023, 05/30/2022, Additional history exists HbA1c 03/13/2024 09/12/2023, 12/2022, 06/11/2021, Additional history exists GFR 08/15/2024 [...] 146 mmol/L 02/16/2024 4:27 PM EST [facility] POTASSIUM 3.8 3.5 - 5.1 mmol/L 02/16/2024 4:27 PM EST [facility] CHLORIDE 104 98 - 107 mmol/L 02/16/2024 4:27 PM EST [facility] CO2 24 22 - 32 mmol/L 02/16/2024 4:27 PM EST [facility] ANION GAP 17(H) 7 - 15 mmol/L 02/16/2024 4:27 PM EST [facility] GLUCOSE 101 70 - 120 mg/dL 02/16/2024 4:27 PM EST [facility] CALCIUM 9.6 8.4 - 10.2 mg/dL 02/16/2024 4:27 PM EST [facility] Blood Venous blood specimen / Unknown Venipuncture / Unknown 02/16/2024 7:35 AM EST 02/16/2024 7:35 AM EST Gracie Lucas MD LAB BLOOD ORDERABLES Maribell clifford Result [facility] [address] [place] [address] * (ABNORMAL) ALBUMIN / CREATININE RATIO, URINE (02/16/2024 7:35 AM EST) Albumin, Random Urine 114.00 mg/dL 02/16/2024 3:44 PM EST [facility] Creatinine, Random Urine 42 mg/dL 02/16/2024 3:44 PM EST [facility] Albumin / Creatinine Ratio, Urine 2,714(H) <30 mg/g Creat 02/16/2024 3:44 PM EST [facility] Urine Urine specimen obtained by clean catch procedure / Unknown Non-blood Collection / Unknown 02/16/2024 7:35 AM EST 02/16/2024 7:35 AM EST Narrative [facility] - 02/16/2024 3:44 PM EST Normal: <30 mg/g creatinine High: 30-300 mg/g creatinine Very High: >300 mg/g creatinine Nephrotic: >2200 mg/g creatinine us Gracie Lucas MD LAB URINE ORDERABLES Maribell clifford Result [facility] [address] [place] [address] documented in this encounter Visit Diagnoses Diagnosis [...] Power of Attor albert? No Care Teams Machine Printer Hose Relationship Specialty Start Date End Date Wiliam Garsia MD [address] [place] [address] PCP - General Family Medicine 05/05/17 documented as of this encounter
--- OUTSIDE RECORDS SUMMARY | 2024-03-18 08:56 | External Medical Summary | Summary of Care ---
Author Name Unknown Organization [facility] Address [address] [place] [address] Phone [phone] Care Team Providers Care Molding Manager Name Role Phone Wiliam Garsia MD Primary Care Provider [phone] Reason for Visit * Reason Onset Date Comments Test Results 02/09/2024 Encounter Details Date Type Department Care Team (Late st Contact Info) Description 02/09/2024 Telephone NephrologyKar [address] [place] [address] Gracie Lucas MD [address] [place] [address] Test Results Allergies Active Allergy Reactions Criticality [...] encounter Miscellaneous Notes * Telephone Encounter - Gracie Lucas MD [...] BP monitoirng, need to check BP DAILY [facility] has been trying to reach pt Neph nurse pls update pt needs to check BP daily and return call to [facility] Shavonne Morales, [facility], PharmD Clinical Pharmacist - Unit Clerk [facility] Ph.[phone] She should get BMP one week after d/c from rehab or if no rehab IP from hospital and we will consider resuming jardiance at that time. MT FYI * Telephone Encounter - Anjelica Mendoza LPN - 03/12/2024 2:08 PM EST Pt is having back surgery 03/18/24 Still awaiting MD review of labs from 02/16/24 for final clearance MD please review and advise Thanks * Telephone Encounter - Marian Ellis OSA - 03/12/2024 8:52 AM EST Ana on the line from Daphnealbert on the line to check the status [...] 07/05/2024 1:00 PM EDT Office Visit Nephrology [address] [place] [address] Kate Rodriguez PA-C [facility] [address] Health Maintenance Due Date Last Done Comments [...] of 2) 2023 CKD PHOS USE SMARTSET 85161 11/19/202311/08, 05/30/2022, 07/19/2021, Additional history exists COVID-19 Vaccine ( season) 2023 01/17/2023, 08/13/2021, 01/08/2021, Additional history exists CKD HGB USE SMARTSET 48661 02/17/202402/16, 02/16/2023, 05/30/2022, Additional history exists HbA1c [...] ORDERABLES Maribell clifford Result [facility] [address] [place] [address] * (ABNORMAL) ALBUMIN / CREATININE RATIO, URINE (02/16/2024 7:35 AM EST) Albumin, Random Urine 114.00 mg/dL 02/16/2024 3:44 PM EST LABORATORY [facility] Creatinine, Random Urine 42 mg/dL 02/16/2024 3:44 PM EST LAB[facility]ATORY [facility] Albumin / Creatinine Ratio, Urine 2,714(H) <30 mg/g Creat 02/16/2024 3:44 PM EST LAB[facility]ATORY [facility] Urine Urine specimen obtained by clean catch procedure / Unknown Non-blood Collection / Unknown 02/16/2024 7:35 AM EST 02/16/2024 7:35 AM EST Narrative LAB[facility]ATORY [facility] - 02/16/2024 3:44 PM EST Normal: <30 mg/g creatinine High: 30-300 mg/g creatinine Very High: >300 mg/g creatinine Nephrotic: >2200 mg/g creatinine us Gracie Lucas MD LAB URINE ORDERABLES Maribell l Result LAB[facility]ATORY [facility] [address] [place] [address] documented in this encounter Visit Diagnoses Diagnosis [...] Power of Attor albert? No Care Teams Molding Manager Relationship Specialty Start Date End Date Wiliam Garsia MD [address] [place] [address] PCP - General Family Medicine 05/05/17 documented as of this encounter
--- OUTSIDE RECORDS SUMMARY | 2024-03-18 08:56 | External Medical Summary | Summary of Care ---
Author Name Unknown Organization [facility] Address [address] [place] [address] Phone [phone] Care Team Providers Care Shirt Cleaner Name Role Phone Wiliam Garsia MD Primary Care Provider [phone] Reason for Visit * Reason Onset Date Comments Remote Patient Monitoring Alert 02/19/2024 Encounter Details Date Type Department Care Team (Late st Contact Info) Description 02/19/2024 Home Monitoring Care Coordination [address] [place] [address] Oneyda Verdugo LPN HTN, goal below 140/90* Allergies Active Allergy Reactions Criticality Noted Date Comments Bee Venom 07/08/2021 Hydralazine Edema Other 11/22/2022 documented as of this encounter (statuses as of 02/21/2024) Medications CYMBALTA 60 MG PO CPEP Take [...] the morning and 1 Tablet before bedtime. 10/28/202 4 Active Sodium Bicarbonate 650 MG Oral TabletIndication s:Metabolic acidosis Take 3 Tablets by mouth in the morning and 3 Tablets at noon and 3 Tablets before bedtime. 360 Tablet 6 4 Active documented as of this encounter (statuses as of 02/21/2024) Active Problems Problem Noted Date Diagnosed Date [...] degree 09/11/2011 S/P colectomy 09/11/2011 Overview (09/11/2011): 2/ to C-diff infection Anemia 09/11/2011 Hypernatremia [...] as of this encounter (statuses as of 02/21/2024) Resolved Problems Problem Noted Date Diagnosed Date Resolved Date Chronic kidney disease, stage 3a 07/20/2020 07/22/2021 Overview: Per CKD protocol Acute kidney injury 07/15/2012 11/23/19 23 Salmonella bacteremia 09/13/20112017 Toxic encephalopathy 09/11/2011 06/06/2 012 SIRS due to infectious proce ss with acute organ dysfunction 09/10/2011 06/19/2017 Septicemia due to Gram-negative organism 09/10/2011 06/19/2017 [place] (acute kidney injury) 09/10/2011 Acidosis 09/10/2011 09/14/2011 Hypoxemia 09/10/2011 09/14/2011 documented as of this encounter (statuses as of 02/21/2024) Immunizations Name Administration Dates Next Due COVID-19 [...] on file documented as of this encounter Progress Notes * Shavonne Morales [facility] - 02/21/2024 4:23 PM EST Patient Phone Numbers Attempted to contact patient to further discuss and verify surgery date, no answer. Left message toreturn call to clinic. Shavonne Morales RPh, PharmD Clinical Pharmacist - Intake Manager Medication [facility] 02/21/2024, 4:23 PM Ph.[phone] * Gracie Lucas MD - 02/19/2024 10:08 PM EST By out of hospital do you mean mid January admission? Or was there another one? Assuming already on entresto which I put her on late last month, suggest resume chlorthalidone 12.5mg daily + 10 mEq daily K and repeat lab; would hold off on jardiance until after neck surgery (plsverify surg date? This week?) * Shavonne Morales [facility] - 02/19/2024 4:19 PM EST Systolic Diastolic Pulse Systolic Diastolic 161 93 Average 148 87 134 81 High 93 93 Low 81 81 Range 12 12 Count 2 2 Limited readings available. Per chart review patient recently discharged from hospital. Upcoming surgery. Working with Dr Fiore regarding re-introducing medications. Shavonne Morales RPh, PharmD Clinical Pharmacist - Intake Manager [facility] 02/19/2024, 4:20 PM Ph.[phone] * Oneyda Verdugo LPN - 02/19/2024 3:29 PM EST Virginia Hernandez [id number] Virginia Hernandez is currently participating in the [employer] Hypertension Management Program and had a reading on 02/18 of 161/93. Pt has alerted for an Average BP over 7 days >/= 140/90 . Parameters are currently set as follows: Average BP over 7 days >/= 140/90 Singular Systolic BP Reading </= 90 or >/=180 Singular Diastolic BP Reading </= 50 or >/=120 Patient is not reporting new symptoms or concerns. The patient does have all her blood pressure medications and is taking them as prescribed. Please review the recent history of home RPM readings in Epic Synopsis Flowsheets and work with your clinical staff if any additional actions or interventions are required. If you would like to customize the alert parameters and/or instructions for this patient, please let me know and we can have them changed. Thank you! ONEYDA VERDUGO LPN documented in this encounter Plan of Treatment Upcoming Encounters Date Type Department Care Team (Late st Contact Info) Description 07/05/2024 1:00 PM EDT Office Visit Nephrology [address] [place] [address] Kate Rodriguez PA-C [address] [place] [address] Health Maintenance Due Date Last Done Comments [...] of 2) 2023 CKD PHOS USE SMARTSET 40968 11/19/202311/08, 05/30/2022, 07/19/2021, Additional history exists COVID-19 Vaccine ( season) 2023 01/17/2023, 08/13/2021, 01/08/2021, Additional history exists CKD HGB USE SMARTSET 96825 02/17/202402/16, 02/16/2023, 05/30/2022, Additional history exists HbA1c [...] Not on filedocumented as of this encounter Visit Diagnoses Diagnosis HTN, goal below 140/90- Primary Unspecified essential hypertension documented in this encounter Advance Directives * [...] Power of Attor albert? No Care Teams Shirt Cleaner Relationship Specialty Start Date End Date Wiliam Garsia MD [address] [place] [address] PCP - General Family Medicine 05/05/17 documented as of this encounter
--- OUTSIDE RECORDS SUMMARY | 2024-03-18 08:56 | External Medical Summary | Summary of Care ---
Author Name Unknown Organization [facility] Address [address] [place] [address] Phone [phone] Care Team Providers Care Mental Measurements Teacher Name Role Phone Wiliam Garsia MD Primary Care Provider [phone] Reason for Visit * Reason Comments eRx-Medication Refill Encounter Details Date Type Department Care Team (Late st Contact Info) Description 03/09/2024 Refill Ne[address] [place] [phone] Ector Bunch MD [address] [place] [address] [place] [address] Chronic kidney disease, stage 3b (HCC); Hyperuricemia; Localized edema; HTN, goal below 130/80 Allergies Active Allergy Reactions Criticality Noted Date [...] Tablet by mouth in the morning. 05/25/19 22 Active Atorvastatin Calcium 20 MG Oral Tablet [...] Tablet by mouth daily as needed. 12/12/19 24 Active Aspirin 325 MG Oral Tablet Take 1 Tablet by mouth in the morning. Active Entresto 97-103 MG Oral Tablet Take 1 Tablet by mouth in the morning and 1 Tablet before bedtime. 02/05/20 Active Sodium Bicarbonate 650 MG Oral TabletIndicatio ns:Metabolic acidosis Take 3 Tablets by mouth in the morning and 3 Tablets at noon and 3 Tablets before bedtime. 360 Tablet 6 02/05/20 24 Active Allopurinol 300 MG Oral Tablet (Zyloprim)Indic ations:Chronic kidney disease, stage 3b (HCC),Hyperuric emia TAKE ONE TABLET BY MOUTH EVERY MORNING 90 Tablet 3 03/12/20 24 Active Furosemide 20 MG Oral Tablet (Lasix)Indicati ons:Chronic kidney disease, stage 3b (HCC),Localized edema,HTN, goal below 130/80 TAKE TWO TABLETS BY MOUTH EVERY MORNING AND TWO TABLETS FOUR HOURS LATER in DAY 360 Tablet 3 03/12/20 24 Active Furosemide 20 MG Oral Tablet [...] mRNA, LNP-s, No Pre serve, 2-Dose Series (LoveThat[employer]) 06/23/2020,06/02/2020 Pneumococcal Polysaccharide PPV23 (Pneumovax) Seasonal Influenza [...] encounter Miscellaneous Notes * Telephone Encounter - Ector Bunch MD - 03/12/2024 1:24 PM ESTSigned Prescriptions: Disp Refills Allopurinol 300 MG Oral Tablet (Zyloprim) 90 Tab*3 Sig: TAKE ONE TABLET BY MOUTH EVERY MORNING Authorizing Provider: ECTOR BUNCH Furosemide 20 MG Oral Tablet (Lasix) 360 Ta*3 Sig: TAKE TWO TABLETS BY MOUTH EVERY MORNING AND TWO TABLETS FOUR HOURS LATER in DAY Authorizing Provider: ECTOR BUNCH -------- * Telephone Encounter - Sally Champion RN - 03/11/2024 8:30 AM ESTPending Prescriptions: Disp Refills Allopurinol 300 MG Oral Tablet [Pharmacy M*90 Tab*3 Sig: TAKE ONE TABLET BY MOUTH EVERY MORNING Furosemide 20 MG Oral Tablet [Pharmacy Med*360 Ta*3 Sig: TAKE TWO TABLETS BY MOUTH EVERY MORNING AND TWO TABLETS FOUR HOURS LATER in DAY * Telephone Encounter - Sally Champion RN - 03/11/2024 8:20 AM EST Prescription request received from pharmacy pending. Please authorize. Last OV 02/05/24 Next OV 07/05/24 documented in this encounter Plan of Treatment Upcoming Encounters Date Type Department Care Team (Late st Contact Info) Description 07/05/2024 1:00 PM EDT Office Visit Nephrology [address] [place] [phone] Kate Rodriguez PA-C [address] [place] [address] [place] [address] Health Maintenance Due Date Last Done Comments [...] of 2) 2023 CKD PHOS USE SMARTSET 71450 11/19/202311/08, 05/30/2022, 07/19/2021, Additional history exists COVID-19 Vaccine ( season) 2023 01/17/2023, 08/13/2021, 01/08/2021, Additional history exists CKD HGB USE SMARTSET 57030 02/17/202402/16, 02/16/2023, 05/30/2022, Additional history exists HbA1c [...] as of this encounter Visit Diagnoses Diagnosis Chronic kidney disease, stage 3b (HCC) Hyperuricemia Other abnormal blood chemistry Localized edema Edema HTN, goal below 130/80 Unspecified essential hypertension documented in this encounter [...] Power of Attor albert? No Care Teams Mental Measurements Teacher Relationship Specialty Start Date End Date Wiliam Garsia MD [address] [place] [address] PCP - General Family Medicine 05/05/17 documented as of this encounter
--- OUTSIDE RECORDS SUMMARY | 2024-03-18 08:56 | External Medical Summary | Summary of Care ---
Author Name Unknown Organization [facility] Address [address] [place] [address] Phone [phone] Care Team Providers Care Instructor Looping Name Role Phone Wiliam Garsia MD Primary Care Provider [phone] Reason for Visit * Reason Comments Outpatient Testing Encounter Details Date Type Department Care Team (Late st Contact Info) Description 02/16/2024 7:40 AM EST Laboratory Laboratory [address] [place] [phone] [place] [address] Chronic kidney disease, stage 3b (HCC) Allergies Active Allergy Reactions Criticality Noted Date Comments Bee Venom 07/08/2021 Hydralazine Edema Other 11/22/2022 documented as of this encounter (statuses as of 02/16/2024) Medications CYMBALTA 60 MG PO CPEP Take [...] as of this encounter (statuses as of 02/16/2024) Active Problems Problem Noted Date Diagnosed Date [...] as of this encounter (statuses as of 02/16/2024) Resolved Problems Problem Noted Date Diagnosed Date [...] as of this encounter (statuses as of 02/16/2024) Immunizations Name Administration Dates Next Due COVID-19 [...] 07/05/2024 1:00 PM EDT Office Visit Nephrology [address] [place] [address] Kate Rodriguez PA-C [address] [place] [address] Pending Results Name Type Priority Associated Diagnoses Date /Time ALBUMIN / CREATININE RATIO, URINE Lab Routine Chronic kidney disease, stage 3b (HCC) 02/16/2024 7:35 AM EST BASIC METABOLIC PANEL Lab Routine Chronic kidney disease, stage 3b (HCC) 02/16/2024 7:35 AM EST Health Maintenance Due Date Last Done Comments [...] of 2) 2023 CKD PHOS USE SMARTSET 34495 11/19/202311/08, 05/30/2022, 07/19/2021, Additional history exists COVID-19 Vaccine ( season) 2023 01/17/2023, 08/13/2021, 01/08/2021, Additional history exists CKD HGB USE SMARTSET 11909 02/17/202402/16, 02/16/2023, 05/30/2022, Additional history exists HbA1c 03/13/2024 09/12/2023, 11/0 12/2022, 06/11/2021, Additional history exists GFR 08/05/2024 02/05/2024, 01/09, 10/13/2023, Additional history exists Albumin/Creatinine Ratio 02/04/2025 024, 02/16/2023, 05/30/2022, Additional history exists Lipid [...] Diagnosis Chronic kidney disease, stage 3b (HCC) documented in this encounter Advance Directives * [...] Power of Attor albert? No Care Teams Instructor Looping Relationship Specialty Start Date End Date Wiliam Garsia MD [address] [place] [address] PCP - General Family Medicine 05/05/17 documented as of this encounter
--- OUTSIDE RECORDS SUMMARY | 2024-03-18 08:57 | External Medical Summary ---
Author Name Unknown Address Unknown Organization [id number]:LABORATORY [facility] - [address] [place] [address] Laboratory Report Ordering Provider Test Date Status JULIO C BARNEY 02/05/2024 13:55:58 Final Normal: <30 mg/g creatinine< br/>High: 30-300 mg/g creatinine
Very High: >300 mg/g creatinine
Nephrotic: >2200 mg/g creatinine Observation Date Value Abnormality Reference (Units ) Status Albumin, Urine 02/05/2024 13:55:58 79.00 (mg/dL) Final Creatinine, Urine 02/05/2024 13:55:58 77 (mg/dL) Final Albumin/Creatinine [Mass Ratio] in Urine 02/05/2024 13:55:58 1026 Above high normal <30 (mg/g Creat) Final Performing Location LABORATORY [facility] - [address] [place] [address]
--- OUTSIDE RECORDS SUMMARY | 2024-03-18 08:57 | External Medical Summary ---
Author Name Unknown Address Unknown Organization [id number]:[facility] [place] [address] [facility] [place] [address] Laboratory Report Ordering Provider Test Date Status APRILAN 02/05/2024 13:55:58 Final Observation Date Value Abnormality Reference (Units ) Status Triglyceride 02/05/2024 13:55:58 1089 Above high normal <=174 (mg/dL) Final Triglyceride Reference Range s (mg/dL):
<150 Acceptable
150-174 Borderline high
175-499 High
>=500 Very high Cholesterol 02/05/2024 13:55:58 322 Above high normal <200 (mg/dL) Final Total Cholesterol Reference Ranges (mg/dL):
<200 Desirable
200-239 Borderline high
>=240 High HDL 02/05/2024 13:55:58 29 Below low normal >49 (mg/dL) Final HDL Cholesterol Reference Ra nges (mg/dL):
>=60 High (Desirable)
<50 Low (Undesirable) For Females
<40 Low (Undesirable) For Males NON-HDL CHOLESTEROL 02/05/2024 13:55:58 293 Above high normal <=159 (mg/dL) Final Non-HDL Cholesterol Referenc e Range (mg/dL):
<100 Target level for high risk ASCVD patient
<130 Optimal for general population
130-159 Near optimal for general population
160-189 Borderline High
190-219 High
>=220 Very High Performing Location [facility] - [address] [place] [address]
--- OUTSIDE RECORDS SUMMARY | 2024-03-18 08:57 | External Medical Summary ---
Author Name Unknown Address Unknown Organization [id number]:[facility]ORATORY [facility] - [address] [facility] [address] Laboratory Report Ordering Provider Test Date Status JULIO C BARNEY 02/05/2024 13:55:58 Final Observation Date Value Abnormality Reference (Units ) Status Color of Urine by Auto 02/05/2024 13:55:58 Yellow Colorless, Light Yellow, Yellow, Dark Yellow Final Clarity, Urine 02/05/2024 13:55:58 Slightly Cloudy Abnormal Clear Final Glucose [Mass/volume] in Urine by Automated test strip 02/05/2024 13:55:58 Negative Negative (mg/dL) Final Bilirubin.total [Presence] in Urine by Automated test strip 02/05/2024 13:55:58 Negative Negative Final Ketones [Mass/volume] in Urine by Automated test strip 02/05/2024 13:55:58 Negative Negative (mg/dL) Final Specific gravity, Urine 02/05/2024 13:55:58 1.020 1.003-1.030 Final Hemoglobin [Presence] in Urine by Automated test strip 02/05/2024 13:55:58 Negative Negative Final pH, Urine 02/05/2024 13:55:58 6.0 5.0-7.5 (Units) Final Protein [Mass/volume] in Urine by Automated test strip 02/05/2024 13:55:58 100 Abnormal Negative (mg/dL) Final Urobilinogen [Mass/volume] in Urine by Automated test strip 02/05/2024 13:55:58 Normal Normal (mg/dL) Final Nitrite [Presence] in Urine by Automated test strip 02/05/2024 13:55:58 Negative Negative Final Leukocyte esterase [Presence] in Urine by Automated test strip 02/05/2024 13:55:58 Small Abnormal Negative Final RBC, Urine 02/05/2024 13:55:58 0-2 0-2 (/HPF) Final WBC, Urine 02/05/2024 13:55:58 10-19 Abnormal 0-2 (/HPF) Final Bacteria [#/area] in Urine sediment by Microscopy high power field 02/05/2024 13:55:58 51-100 Abnormal 0-25 (/HPF) Final Epithelial cells.squamous [#/area] in Urine sediment by Microscopy high power field 02/05/2024 13:55:58 Many Abnormal None (/HPF) Final Performing Location LABOR[facility]ORY [facility] - [facility] [address] [facility] [address]
--- OUTSIDE RECORDS SUMMARY | 2024-03-18 08:57 | External Medical Summary | Summary of Care ---
Author Name Unknown Organization [facility] Address [address] [place] [address] Phone [phone] Care Team Providers Care Diet Aide Name Role Phone Wiliam Garsia MD Primary Care Provider [phone] Reason for Visit * Reason Comments Outpatient Testing Encounter Details Date Type Department Care Team (Late st Contact Info) Description 02/05/2024 1:50 PM EDT Laboratory Laboratory [address] [place] [phone] [facility] [address] [place] [address] Persistent proteinuria; Chronic kidney disease, stage 3b ([facility]); History of acute renal failure; Type 2 diabetes mellitus with hyperglycemia ([facility]) Allergies Active Allergy Reactions Criticality Noted Date Comments Bee Venom 07/08/2021 Hydralazine Edema Other 11/22/2022 documented as of this encounter (statuses as of 02/05/2024) Medications Medication Sig Dispensed Refills Start Date [...] as of this encounter (statuses as of 02/05/2024) Active Problems Problem Noted Date Diagnosed Date [...] as of this encounter (statuses as of 02/05/2024) Resolved Problems Problem Noted Date Diagnosed Date [...] as of this encounter (statuses as of 02/05/2024) Immunizations Name Administration Dates Next Due COVID-19 [...] 07/05/2024 1:00 PM EDT Office Visit Nephrology [address] [place] [address] Kate Rodriguez PA-C [address] [place] [address] Pending Results Name Type Priority Associated Diagnoses Date /Time ALBUMIN / CREATININE RATIO, URINE Lab Routine Persistent proteinuria Chronic kidney disease, stage 3b (HCC) 02/05/2024 1:55 PM EDT URINALYSIS WITH MICROSCOPIC EXAM Lab Routine Persistent proteinuria Chronic kidney disease, stage 3b (HCC) 02/05/2024 1:55 PM EDT URIC ACID Lab Routine Chronic kidney disease, stage 3b (HCC) 02/05/2024 1:55 PM EDT BASIC METABOLIC PANEL Lab Routine History of acute renal failure Chronic kidney disease, stage 3b (HCC) 02/05/2024 1:55 PM EDT APOLIPOPROTEIN B Lab Routine Type 2 diabetes mellitus with hyperglycemia (HCC) 02/05/2024 1:55 PM EDT LIPID PANEL WITH DIRECT LDL IF TG IS HIGH Lab Routine Type 2 diabetes mellitus with hyperglycemia (HCC) 02/05/2024 1:55 PM EDT Health Maintenance Due Date Last Done Comments [...] of 2) 2023 CKD PHOS USE SMARTSET 88563 11/19/202311/08, 05/30/2022, 07/19/2021, Additional history exists COVID-19 Vaccine ( season) 2023 01/17/2023, 08/13/2021, 01/08/2021, Additional history exists Albumin/Creatinine Ratio 02/17/2024 023, 05/30/2022, 09/24/2021, Additional history exists CKD HGB USE SMARTSET 54766 02/17/202402/16, 02/16/2023, 05/30/2022, Additional history exists HbA1c 03/13/2024 09/12/2023, 110 12/2022, 06/11/2021, Additional history exists GFR 04/14/2024 [...] as of this encounter Visit Diagnoses Diagnosis Persistent proteinuria Proteinuria Chronic kidney disease, stage 3b (HCC) History of acute renal failure Personal history of other disorder of urinary system Type 2 diabetes mellitus with hyperglycemia (HCC) Type II or unspecified type diabetes mellitus without mention of complication, not stated as uncontrolled documented in this encounter Advance Directives * [...] Power of Attor albert? No Care Teams Diet Aide Relationship Specialty Start Date End Date Wiliam Garsia MD [address] [place] [address] PCP - General Family Medicine 05/05/17 documented as of this encounter
--- OUTSIDE RECORDS SUMMARY | 2024-03-18 08:57 | External Medical Summary ---
Author Name Unknown Address Unknown Organization K01:LABORATORY [facility] - [address] [address] Laboratory Report Ordering Provider Test Date Status ECTORBUNCH 02/05/2024 13:55:58 Final Observation Date Value Abnormality Reference (Units ) Status BUN 02/05/2024 13:55:58 28 Above high normal 6-20 (mg/dL) Final Creatinine 02/05/2024 13:55:58 1.7 Above high normal 0.5-1.0 (mg/dL) Final Glomerular filtration rate/1.73 sq M.predicted [Volume Rate/Area] in Serum, Plasma or Blood by Creatinine-based formula (CKD-EPI) 02/05/2024 13:55:58 36 Below low normal >=60 (mL/min) Final eGFR is calculated based on the CKD-EPI 2020 equation. Sodium 02/05/2024 13:55:58 137 135-146 (m mol/L) Final Potassium 02/05/2024 13:55:58 4.2 3.5-5.1 (m mol/L) Final Cl 02/05/2024 13:55:58 97 Below low normal 98- 107 (mmol/L) Final CO2 02/05/2024 13:55:58 27 22-32 (mmo l/L) Final Anion gap 02/05/2024 13:55:58 13 7-15 (mmol /L) Final Glucose 02/05/2024 13:55:58 95 70-120 (mg /dL) Final Calcium 02/05/2024 13:55:58 10.3 Above high normal 8. 4-10.2 (mg/dL) Final Performing Location LABORATORY [facility] - [address] [place] [address]
--- OUTSIDE RECORDS SUMMARY | 2024-03-18 08:57 | External Medical Summary | Summary of Care ---
Author Name Unknown Organization [facility] Address [address] [place] [address] Phone [phone] Care Team Providers Care Financial Reporting Accountant Name Role Phone Wiliam Garsia MD Primary Care Provider [phone] Encounter Details Date Type Department Care Team (Late st Contact Info) Description 02/05/2024 Orders Only Laboratory [address] [place] [id number] Elmer Camacho MD [address] [id number] Type 2 diabetes mellitus with hyperglycemia (HCC)* Allergies Active Allergy Reactions Criticality Noted Date [...] CKD protocol Acute kidney injury 07/15/2012 11/23/19 Salmonella bacteremia 09/13/20112017 Toxic encephalopathy 09/11/2011 012 [...] 07/05/2024 1:00 PM EDT Office Visit Nephrology [address] [place] [address] Kate Rodriguez PA-C [address] [facility] [place] [address] Pending Results Name Type Priority Associated Diagnoses Date /Time APOLIPOPROTEIN B Lab Routine Type 2 diabetes mellitus with hyperglycemia (HCC) 02/05/2024 1:55 PM EDT LIPID PANEL WITH DIRECT LDL IF TG IS HIGH Lab Routine Type 2 diabetes mellitus with hyperglycemia (HCC) 02/05/2024 1:55 PM EDT Scheduled Orders Name Type Priority Associated Diagnoses Orde r Schedule APOLIPOPROTEIN B Lab Routine Type 2 diabetes mellitus with hyperglycemia (HCC) Expected: 02/05/2024, Expires: 02/04/2025 LIPID PANEL WITH DIRECT LDL IF TG IS HIGH Lab Routine Type 2 diabetes mellitus with hyperglycemia (HCC) Expected: 02/05/2024, Expires: 02/04/2025 Health Maintenance Due Date Last Done Comments [...] of 2) 2023 CKD PHOS USE SMARTSET 22899 11/19/2023 0804/2022, 05/30/2022, 07/19/2021, Additional history exists COVID-19 Vaccine ( season) 2023 01/17/2023, 08/13/2021, 01/08/2021, Additional history exists Albumin/Creatinine Ratio 02/17/2024 023, 05/30/2022, 09/24/2021, Additional history exists CKD HGB USE SMARTSET 24067 02/17/202402/16, 02/16/2023, 05/30/2022, Additional history exists HbA1c [...] as of this encounter Visit Diagnoses Diagnosis Type 2 diabetes mellitus with hyperglycemia (HCC)- Primary Type II or unspecified type diabetes mellitus [...] Power of Attor albert? No Care Teams Financial Reporting Accountant Relationship Specialty Start Date End Date Wiliam Garsia MD [address] [place] [address] PCP - General Family Medicine 05/05/17 documented as of this encounter
--- OUTSIDE RECORDS SUMMARY | 2024-03-18 08:57 | External Medical Summary | Summary of Care ---
Author Name Unknown Organization [facility] Address [address] [place] [address] Phone [phone] Care Team Providers Care Electrical Instrument Maker Name Role Phone Wiliam Garsia MD Primary Care Provider [phone] Reason for Visit * Reason Onset Date Comments Test Results 02/09/2024 Encounter Details Date Type Department Care Team (Late st Contact Info) Description 02/09/2024 Telephone NephrologyKar [address] [place] [address] Gracie Lucas MD [address] [place] [address] Test Results Allergies Active Allergy Reactions Criticality Noted Date Comments Bee Venom 07/08/2021 Hydralazine Edema Other 11/22/2022 documented as of this encounter (statuses as of 02/09/2024) Medications Medication Sig Dispensed Refills Start Date [...] as of this encounter (statuses as of 02/09/2024) Active Problems Problem Noted Date Diagnosed Date [...] as of this encounter (statuses as of 02/09/2024) Resolved Problems Problem Noted Date Diagnosed Date [...] as of this encounter (statuses as of 02/09/2024) Immunizations Name Administration Dates Next Due COVID-19 [...] encounter Miscellaneous Notes * Telephone Encounter - Sally Champion RN [...] 07/05/2024 1:00 PM EDT Office Visit Nephrology [address] [place] [address] Kate Rodriguez PA-C [address] [place] [address] [place] [address] Scheduled Orders Name Type Priority Associated Diagnoses Orde r Schedule ALBUMIN / CREATININE RATIO, URINE Lab Routine Chronic kidney disease, stage 3b (HCC) Expected: 02/15/2024 (Approximate), Expires: 02/08/2025 BASIC METABOLIC PANEL Lab Routine Chronic kidney disease, stage 3b (HCC) Expected: 02/15/2024 (Approximate), Expires: 02/08/2025 Health Maintenance Due Date Last Done Comments [...] of 2) 2023 CKD PHOS USE SMARTSET 31433 11/19/202311/08, 05/30/2022, 07/19/2021, Additional history exists COVID-19 Vaccine ( season) 2023 01/17/2023, 08/13/2021, 01/08/2021, Additional history exists CKD HGB USE SMARTSET 25343 02/17/202402/16, 02/16/2023, 05/30/2022, Additional history exists HbA1c 03/13/2024 09/12/2023, 11/0 12/2022, 06/11/2021, Additional history exists GFR 08/05/2024 02/05/2024, 07/0 08/2023, 09/12/2023, Additional history exists Albumin/Creatinine Ratio 02/04/202502/04/2 [...] Power of Attor albert? No Care Teams Electrical Instrument Maker Relationship Specialty Start Date End Date Wiliam Garsia MD [address] [place] [address] PCP - General Family Medicine 05/05/17 documented as of this encounter
--- OUTSIDE RECORDS SUMMARY | 2024-03-18 08:57 | External Medical Summary | Summary of Care ---
Author Name Unknown Organization [facility] Address [address] [place] [address] Phone [phone] Care Team Providers Care Information Systems Coordinator Name Role Phone Wiliam Garsia MD Primary Care Provider [phone] Reason for Visit * Reason Comments Hospital Follow-Up Encounter Details Date Type Department Care Team (Late st Contact Info) Description 02/05/2024 1:00 PM EDT Office Visit Nephrology [address] [place] [id number] Gracie Lucas MD [address] [place], [place] [address] [id number] History of acute renal failure*; Metabolic acidosis; HTN, goal below 130/80; Persistent proteinuria; Chronic kidney disease, stage 3b (HCC); History of tobacco abuse Allergies Active Allergy Reactions Criticality Noted Date [...] the skin. Active prochlorperazine (COMPAZINE) 10 MG TabletIndications :Nausea Take 1 Tab by mouth every 8 [...] 08/17/2022 Active Furosemide 20 MG Oral Tablet (Lasix)Indication s:Localized edema,Chronic kidney disease, stage 3b (HCC),HTN, goal below 130/80 Take 2 tablets in morning and 2 tablets 4 hrs (or more) later in day 360 Tablet 3 06/07/2023 Active Allopurinol 300 MG Oral Tablet (Zyloprim)Indicat ions:Chronic kidney disease, stage 3b (HCC),Hyperuricem ia Take 1 Tablet by mouth in the morning. 90 Tablet 3 06/07/2023 Active Chlorthalidone 25 MG Oral Tablet (Hygroton)Indicat ions:Localized edema,Chronic kidney disease, stage 3b (HCC),HTN, goal [...] 02/05/2024 Active Sodium Bicarbonate 650 MG Oral TabletIndications :Metabolic acidosis Take 3 Tablets by mouth in the morning and 3 Tablets at noon and 3 Tablets before bedtime. 360 Tablet 6 02/05/2024 Active Sodium Bicarbonate 650 MG Oral TabletIndications :Metabolic acidosis Take 3 Tablets by mouth in the morning and 3 Tablets at noon and 3 Tablets before bedtime. 360 Tablet 6 04/06/2021 02/05/20 24 Discontinued Entresto 97-103 MG Oral Tablet 1 Tablet in the morning and 1 Tablet before bedtime. 07/06/2021 02/05/20 24 Discontinued Empagliflozin 25 MG Oral Tablet (Jardiance) Take 1 Tablet by mouth in the morning. 02/05/20 24 Discontinued documented as of this encounter (statuses [...] on file documented as of this encounter Last Filed Vital Signs Vital Sign Reading Time Taken Comments Blood Pressure 139/78 02/05/2024 12:44 PM EDT Pulse 79 02/05/2024 12:44 PM EDT Temperature 35.8 C (96.4 F) 02/05/2024 12:39 PM E DT Respiratory Rate 18 02/05/2024 12:39 PM EDT Oxygen Saturation 97% 02/05/2024 12:39 PM EDT Inhaled Oxygen Concentration - - Weight 98.9 kg (218 lb) 02/05/2024 12:39 PM EDT Height - - Body Mass Index 38.62 01/04/2024 3:55 PM EDT documented in this encounter Patient Instructions * Patient Instructions* Gracie Lucas MD - 02/05/2024 1:16 PM EDT -labs today, blood and urine and another blood test in about 10 days as below -go back on entresto and after about 10 days back on medication, repeat lab -avoid medicines like aleve, advil, ibuprofen, aspirin more than 325 mg daily and other NSAIDS which are not good for kidney patients. Take only tylenol (acetaminophen) up to 2000 mg daily as needed for pain or as directed by your primary care provider. -for now no medication changes until labs post; will then add meds back in one at a time -keep doing remote bp program -great job at stopping smoking >> do everything you can to stay off of tobacco >>from a kidney standpoint if we can get you back on entresto and BP still mostly controlled and kidney function at baseline, you should be able to proceed with neck surgery documented in this encounter Progress Notes * Gracie Lucas MD - 02/05/2024 12:32 PM EDT NEPHROLOGY CLINIC NOTE Nephrology [address] [place] [address] 02/05/2024, 12:32 PM Patient Name: Virginia Hernandez BACKGROUND: 48 year old female resents for hospital d/c appt after [facility] admission January 23 to for OK on CKD with metabolic acidosis. Seen here normally for f/u of rapidly progressive CKD w/ labile renal function (bumps between stage 3-4) w/ hx of longstanding DM often challenging to control HTN, and metabolic acidosis of unclear etiology with multiple hospitalizations and ok on CKD. Diabetes has been difficult to control historically; follows w/ [facility] endocrine. Longstanding HTN. Hx of significant nsaids use in the past. Hx of [facility] S/p partial colectomy for C diff colitis. Active tobacco use. Also w/ PMH suppurative hidradenitis w/ chronic intermittent R breast pain, recurrent metabolic acidosis, HL, GERD. Has had anion gap acidosis severe enough to need intubation and urgent dialysis in past. Multiple 2018 [facility] admissions: 04/2017 DKA, C diff; needed HD 05/2017 sepsis w/o clear source; severe AG metabolic acidosis 06/2017 gallstone pancreatitis 07/2017 metabolic acidosis less AG and more attributed to malasorption 08/2017 metabolic acidosis p/w n/v 09/2017 metabolic acidosis with hyperglycemia 2 [facility] admissions late December, both for Acidosis, 2018. 12/28-12/31 for abnormal labs >> I called her to advise ER eval d/t K 6.0 and bicarb 13, creatinine 1.7 but she had already left for hospital; dx w/ DKA on arrivaL. These electrolyte issues were in setting of bactrim therapy for L labial abscess s/p I &D. Improved w/ aggressive bicarb gtt. Then another [facility] admission 01/06- 01/10 again w/ DKA in setting of N/v/D; bicarb was as low as 7; pH initially 7.1 on ABG at OSH. Again responded to insulin, bicarbonate gtt. Extended hospital admission at [facility] December 2018. Briefly she fell at home and was found to have a left ankle fracture; on arrival to emergency department had electrolyte and metabolic disorders but not as I recall DKA. She went to the OR for surgery on ankle and recovery was complicated by postoperative small bowel obstruction. She had ngt x 1 week ; sbo managed conservatively. OK during that admission? After hospital stay she had extended rehab inpatient. D/c home 01/05 but then with R leg w/ chipped bone/ torn ligament; L ankle frx. 6 more weeks for boot, then PT, then for possible revision. Was rx'd canagliflozin late Apr [address] Camacho but can't afford it; did leave [facility] w/ him on this. One month's supply > 100$. Missed f/u w/ him d/t hosptialization. Late May/Early June 2021 admitted [facility] for sob, HTN and admitted x 1 week. Started on multiple new BP meds. After d/c had symptomatic hypotension and OK. Readmitted 06/14-06/17/2021 for HTN encephalopathy and HTN crisis w/ OK on CKD HF. D/c summary > nuke stress test wnl; metanephrines/catacholamines sent. Sleep study planned after d/c; no med changes at d/c > d/c on spironolactone 25 mg daily, entresto 97/103 bid, hydralazine 100 mg tid for SBP>150/90, coreg 50 mg bid Spring [address] Kahn cardiology [facility] after admission above. Saw her in clinic 07/02 >after hospital d/c had symptomatic hypotension. So cards cut back hydralazine to 25 mg bid. But had HTN and hydralazine upped again. August 2021 > has cervical herniated disc; was for January repair but PCP did not clear d/t anemia.Sent to hematology > following w/ [place] [facility] got venofer and pRBC. 05/16/22 was to have venofer >> bp 195/99; SBP on repeat was 230. Called her chisel trimmer >> and chlorthalidone. added. Hx marked edema w/ hydralazine Had colonoscopy, EGD and unremarkable in late 2021. 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 Long smoking hx; cut back to 4 cigs/day; x mos and then quit Dec 2023 to get ready fo estephanie perez. Home blood pressure checks: Omron 3 as of August 2021; also follows w/ remote bp monitoring NSAID use: No Herbals/supplements: Fish oil History of stones: No Family history of CKD or ESRD: No Last hospital stay was 06/2021 w/ HTN encephalopathy. TODAY 02/05/2024: presenting today for hospital f/u After [facility] overnight admission January 23 to for OK on CKD with metabolic acidosis. Sent in after outpatient preop labs for neck surgyer (already postponed once d/t anemia) showed a bicarb of 19, creatinine 2.5, potassium 5.3 BG was 407 on these labs, though BG at pt home / on her own were 268; BG was 288. No arrhythmias were noted on cardiac monitoring. She received sodium bicarbonate rich fluids. Chlorthalidone, Entresto, Jardiance were all held. In the wake of this renal function quickly returned to baseline. [facility] recommended indefinitely holding Jardiance given her recurrent metabolic acidosi s. Chlorthalidone and Entresto were also held at discharge with suggestion to follow-up with PCP and nephro about role tomorrow resuming these in 1-2 weeks. Alix was planned for [facility] for 02/13 but now on hold pending clearances. Saw Dr Oliver Freedman early January >> did TTE which was OK. Pt was on entresto at that time/ TTE results not available to me. Had to quit tobacco/be nicotine free for surgery; last cigarette was 12/16/23. Used Quit[employer] cigarette substitutes >> fake cigarettes that have flavor but when she inhales it's air. Plans/hopes notto restart Her BG have been high lately >> saw endocrine on 02/01 and no changes to care currently. Per pt endocrine defers to me whether/ when to resume SGLT2i; we has REVIEW OF SYSTEMS: No F/C, unintended wt loss or gain, energy level and appetite acceptable No palpitations, angina, orthopnea; mild BLE LE edema No cough, wheeze, or dyspnea No N/V/D/C/abd pain No dysuria, hematuria, nocturia >2X; no new/worrisome voiding sx No rash or generalized itch No focal joint/muscle aches apart lower neck and diffusely Paresthesias hands > feet No presyncopal or orthostatic symptoms; no falls Current Outpatient Medications Medication Sig Dispense Refill CYMBALTA 60 MG PO CPEP Take 1 Capsule by mouth in the morning. Insulin Degludec 100 UNIT/ML Subcutaneous Solution Pen-injector Inject under the skin daily. Insulin Lispro 100 UNIT/ML Subcutaneous Solution Cartridge Inject under the skin. Pregabalin 150 MG Oral Capsule (Lyrica) Take 1 Capsule by mouth in the morning and 1 Capsule at noon and 1 Capsule before bedtime. Fish Oil 1000 MG Oral Capsule Take 1 Capsule by mouth in the morning. Takes 2 capsules in the AM. Baclofen 10 MG Oral Tablet (Lioresal) Take 1 Tablet by mouth in the morning and 1 Tablet at noon and 1 Tablet before bedtime. busPIRone HCl 15 MG Oral Tablet (Buspar) Take 1 Tablet by mouth in the morning. Carvedilol 25 MG Oral Tablet Take 1 Tablet by mouth 2 times a day with morning and evening meals. Takes 2 tablets in the AM 2 at bedtime Pantoprazole Sodium 40 MG Oral Tablet Delayed Release Take by mouth . Atorvastatin Calcium 20 MG Oral Tablet (Lipitor) Take 4 Tablets by mouth in the morning. 30 Tablet amLODIPine Besylate 10 MG Oral Tablet (Norvasc) Take 1 Tablet by mouth in the morning. Furosemide 20 MG Oral Tablet (Lasix) Take 2 tablets in morning and 2 tablets 4 hrs (or more) later in day 360 Tablet 3 Allopurinol 300 MG Oral Tablet (Zyloprim) Take 1 Tablet by mouth in the morning. 90 Tablet 3 Eszopiclone 1 MG Oral Tablet Take 1 Tablet by mouth daily as needed. Aspirin 325 MG Oral Tablet Take 1 Tablet by mouth in the morning. Entresto 97-103 MG Oral Tablet Take 1 Tablet by mouth in the morning and 1 Tablet before bedtime. Sodium Bicarbonate 650 MG Oral Tablet Take 3 Tablets by mouth in the morning and 3 Tablets at noon and 3 Tablets before bedtime. 360 Tablet 6 prochlorperazine (COMPAZINE) 10 MG Tablet Take 1 Tab by mouth every 8 hours as needed for Nausea. 30 Tab 6 Ajovy 225 MG/1.5ML Subcutaneous Solution Prefilled Syringe Every Month . (Patient not taking: Reported on 01/04/2024) Pioglitazone HCl 30 MG Oral Tablet (Actos) Take 1 Tablet by mouth in the morning. (Patient not taking: Reported on 01/04/2024) Chlorthalidone 25 MG Oral Tablet (Hygroton) TAKE 1 TABLET BY MOUTH EVERY DAY IN THE MORNING (Patient not taking: Reported on 02/05/2024) 90 Tablet 3 No current facility-administered medications for this visit. Review of patient's allergies indicates: Allergen Reactions Bee Venom Hydralazine Edema Other PHYSICAL EXAMINATION: BP Readings from Last 6 Encounters: 02/05/24 139/78 01/04/24 138/72 08/11/23 112/67 01/26/23 114/78 11/22/22 162/96 08/11/22 141/82 Wt Readings from Last 6 Encounters: 02/05/24 98.9 kg (218 lb) 01/04/24 97.9 kg (215 lb 12.8 oz) 08/11/23 98.9 kg (218 lb) 01/26/23 96.6 kg (213 lb) 11/22/22 99.8 kg (220 lb) 08/11/22 98.9 kg (218 lb) Pulse Readings from Last 6 Encounters: 02/05/24 79 01/04/24 75 08/11/23 70 01/26/23 72 11/22/22 67 08/11/22 65 01/15/24 12:56 01/17/24 14:28 01/18/24 14:10 01/19/24 11:39 01/29/24 11:05 02/02/24 11:00 Systolic BP 159 mm/Hg (H) [1] 172 mm/Hg (H) [1] 172 mm/Hg (H) [1] 134 mm/Hg [1] 134 mm/Hg [1] 128 mm/Hg [1] Diastolic BP 90 mm/Hg [1] 94 mm/Hg (H) [1] 91 mm/Hg (H) [1] 80 mm/Hg [1] 84 mm/Hg [1] 80 mm/Hg [1] Pulse 81 bpm [1] 85 bpm [1] 92 bpm [1] 81 bpm [1] 74 bpm [1] 79 bpm [1] NAD, oriented x 3, obese, ambulatory w/o asst RRR w/o m/g/r; trace -1+ BLE edema CTAB w/ reasonable air mvt NT abd, +BS, soft, very audible bowel sounds in clinic No tremor, focal or global weakness; fluent speech, excellent historian LABS: Recent Labs Units 10/13/23 0000 09/12/23 1555 07/10/23 0810 03/30/23 1254 02/16/23 1533 SODIUM - [facility] mmol/L -- 132* 133* 141 133* POTASSIUM - [facility] MMOL/L 3.8 4.5 4.7 4.3 4.5 CHLORIDE - [facility] mmol/L -- 95* 98 101 98 CO2 - [facility] mmol/L -- 21* 19* 28 19* ESTIMATED GLOMERULAR FILTRATION RATE - [facility] mL/min -- 31* 37* 33* 25* BUN - [facility] mg/dL -- 49* 33* 43* 50* CREATININE - [facility] MG/DL 1.86* 1.9* 1.7* 1.9* 2.4* Latest Reference Range & Units 11/18/22 12:50 12/14/22 15:49 01/25/23 15:14 02/16/23 15:33 03/30/23 12:54 07/10/23 08:10 09/12/23 15:55 CO2 22 - 32 mmol/L 20 (L) 24 26 19 (L) 28 19 (L) 21 (L) Recent Labs Units 02/16/23 1533 05/30/22 1502 HGB g/dL 14.5 16.8* Recent Labs Units 09/12/23 1555 07/10/23 0810 03/30/23 1254 02/16/23 1533 12/14/22 1549 11/18/22 1250 10/14/22 1315 08/09/22 1546 05/30/22 1502 CALCIUM - [facility] mg/dL 9.9 11.5* 10.9* 10.3* < > 10.3* < > 10.4* 11.3* PHOSPHORUS - [facility] mg/dL -- -- -- -- -- 3.6 -- -- 3.7 25-HYDROXY VITAMIN D - [facility] ng/mL 52 54 -- -- -- -- -- 20 44 PTH - [facility] pg/mL -- 108* -- 145* -- -- -- 170* 145* < > = values in this interval not displayed. Recent Labs Units 09/12/23 1555 02/16/23 1533 HEMOGLOBIN A1C - [facility] % 9.7* 10.4* Recent Labs Units 02/16/23 1527 05/30/22 1502 ALBUMIN / CREATININE RATIO, URINE - [facility] mg/g Creat 1,143* 1,384* Recent Labs Units 05/30/22 1502 CLARITY, URINE - [facility] Clear GLUCOSE, URINE - [facility] mg/dL 250* BILIRUBIN, URINE - [facility] Negative KETONE, URINE - [facility] mg/dL Negative SPECIFIC GRAVITY, URINE - [facility] 1.013 BLOOD, URINE - [facility] Negative PH, URINE - [facility] Units 6.0 PROTEIN, URINE - [facility] mg/dL 100* UROBILINOGEN, URINE - [facility] mg/dL Normal NITRITE, URINE - [facility] Negative ESTERASE, URINE - [facility] Negative BACTERIA, URINE - [facility] /HPF 0-25 WBC, URINE - [facility] /HPF 6-9* RBC, URINE - [facility] /HPF 0-2 Outside labs 01/31/24 [facility] 137/ 4.1/ 105/ 26/ 35/ 1.6/ eGFR 38; sAlbumin 3.6 ASSESSMENT AND PLAN: History of acute renal failure (Primary) - BASIC METABOLIC PANEL; Future; Expected date: 02/12/2024 Metabolic acidosis - Sodium Bicarbonate 650 MG Oral Tablet; Take 3 Tablets by mouth in the morning and 3 Tablets at noon and 3 Tablets before bedtime. HTN, goal below 130/80 Persistent proteinuria - ALBUMIN / CREATININE RATIO, URINE; Future; Expected date: 02/05/2024 - URINALYSIS WITH MICROSCOPIC EXAM; Future; Expected date: 02/06/2024 Chronic kidney disease, stage 3b (HCC) - NEPHROLOGY FOLLOW UP APPT (DEPARTMENT USE ONLY); Future; Expected date: 05/07/2024 - ALBUMIN / CREATININE RATIO, URINE; Future; Expected date: 02/05/2024 - URINALYSIS WITH MICROSCOPIC EXAM; Future; Expected date: 02/06/2024 - PTH; Future; Expected date: 08/05/2024 - 25-HYDROXY VITAMIN D; Future; Expected date: 08/05/2024 - URIC ACID; Future; Expected date: 02/05/2024 - BASIC METABOLIC PANEL; Future; Expected date: 02/12/2024 History of tobacco abuse Check-out note: RTC 4 mos; high risk; MD or PA To lab Stage 1 nonoliguric OK in pt w/ labile renal function at baseline and large proteinuria Baseline creatinine about 2 >> currently better than baseline but w/ somewhat uncontrolled BP/ off meds FROM A NEPHROLOGY STANDPOINT, she can do the neck surgery provided we get her back on entresto and keep renal function at baseline. I will restart entresto today, w/ plan to repeat bmp in 7-10 days. HTN > above target; some better readings in remote program; continue amlodipine, lasix, chlorthalidone, coreg Long h/o metabolic acidosis which long predates jardiance rx; we considered this on starting that med w/ endocrine and felt benefits outweighed risks for heart, kdienys, DM >> continue to be ofthat opinion and will gradually reintroduce as ablve -cont sodium bicarb; may need to adjust dose CKD at better end of spectrum not unexompected b/c off of meds -update labs; resume ACEI/ARB in entresto and then decide if chlorthal versus SGLT2i back Patient Instructions -labs today, blood and urine and another blood test in about 10 days as below -go back on entresto and after about 10 days back on medication, repeat lab -avoid medicines like aleve, advil, ibuprofen, aspirin more than 325 mg daily and other NSAIDS which are not good for kidney patients. Take only tylenol (acetaminophen) up to 2000 mg daily as needed for pain or as directed by your primary care provider. -for now no medication changes until labs post; will then add meds back in one at a time -keep doing remote bp program -great job at stopping smoking >> do everything you can to stay off of tobacco >>from a kidney standpoint if we can get you back on entresto and BP still mostly controlled and kidney function at baseline, you should be able to proceed with neck surgery Gracie Lucas MD Nephrology [address] [place] [address] CC: REF: WILIAM GARSIA [address] [facility] [place] [address] (office) [phone] (fax) PCP: WILIAM GARSIA [address] [place] [address] This chart was completed in part utilizing [employer] Speech Voice Recognition Software. Randomword insertions, pronoun errors, and incomplete sentences are an occasional consequence of this system due to software limitations, and ambient noise. Any questions or concerns about the content, text, or information contained within the body of this dictation should be directly addressed to the provider for clarification. documented in this encounter Nursing Notes * Sally Champion RN - 02/05/2024 12:41 PM EDT Hospital follow up visit today. Had gone for preop lab tests for neck surgery and it was noted she was in OK and metabolic acidosis. Surgery is on hold pending clearance from Nephrology- Medicationsplaced on hold - Chlorthalidone,Jardiance and Entresto. documented in this encounter Plan of Treatment Upcoming Encounters Date Type Department Care Team (Late st Contact Info) Description 07/05/2024 1:00 PM EDT Office Visit Nephrology [address] [place] [address] Kate Rodriguez PA-C [address] [place] [id number] Pending Results Name Type Priority Associated Diagnoses [...] stage 3b (HCC) 02/05/2024 1:55 PM EDT Scheduled Orders Name Type Priority Associated Diagnoses Orde r Schedule ALBUMIN / CREATININE RATIO, URINE Lab Routine Persistent proteinuria Chronic kidney disease, stage 3b (HCC) Expected: 02/05/2024, Expires: 02/04/2025 URINALYSIS WITH MICROSCOPIC EXAM Lab Routine Persistent proteinuria Chronic kidney disease, stage 3b (HCC) Expected: 02/06/2024, Expires: 05/07/2024 PTH Lab Routine Chronic kidney disease, stage 3b (HCC) Expected: 08/05/2024, Expires: 02/04/2025 25-HYDROXY VITAMIN D Lab Routine Chronic kidney disease, stage 3b (HCC) Expected: 08/05/2024, Expires: 02/04/2025 URIC ACID Lab Routine Chronic kidney disease, stage 3b (HCC) Expected: 02/05/2024, Expires: 02/04/2025 BASIC METABOLIC PANEL Lab Routine History of acute renal failure Chronic kidney disease, stage 3b (HCC) Expected: 02/12/2024, Expires: 02/04/2025 Health Maintenance Due Date Last [...] of 2) 2023 CKD PHOS USE SMARTSET 84417 11/19/202311/08, 05/30/2022, 07/19/2021, Additional history exists COVID-19 Vaccine ( season) 2023 01/17/2023, 08/13/2021, 01/08/2021, Additional history exists Albumin/Creatinine Ratio 02/17/2024 023, 05/30/2022, 09/24/2021, Additional history exists CKD HGB USE SMARTSET 72567 02/17/202402/16, 02/16/2023, 05/30/2022, Additional history exists HbA1c 03/13/2024 09/12/2023, 1112/2022, 06/11/2021, Additional history exists GFR 04/14/2024 10/13/2023, 0607/2023, 07/10/2023, Additional history exists Lipid Panel 10/23/2025 [...] as of this encounter Visit Diagnoses Diagnosis History of acute renal failure- Primary Personal history of other disorder of urinary system Metabolic acidosis Acidosis HTN, goal below 130/80 Unspecified essential hypertension Persistent proteinuria Proteinuria Chronic kidney disease, stage 3b (HCC) History of tobacco abuse Personal history of tobacco use, presenting hazards to health documented in this encounter Advance Directives * [...] Power of Attor albert? No Care Teams Information Systems Coordinator Relationship Specialty Start Date End Date Wiliam Garsia MD [address] [place] [address] PCP - General Family Medicine 05/05/17 documented as of this encounter
--- OUTSIDE RECORDS SUMMARY | 2024-03-18 08:58 | External Medical Summary ---
Author Name Unknown Address Unknown Organization K01:[facility] [place] [address] [address] Laboratory Report Ordering Provider Test Date Status JULIO C BARNEY 02/05/2024 13:55:58 Final Observation Date Value Abnormality Reference (Units ) Status Uric Acid 02/05/2024 13:55:58 4.6 2.4-5.7 (m g/dL) Final Performing Location LABORATORY [facility] - [address] [place] [address]
--- OUTSIDE RECORDS SUMMARY | 2024-03-18 08:58 | External Medical Summary ---
Author Name Unknown Address Unknown Organization [id number]:[facility] [place] [address] [place] [address] Laboratory Report Ordering Provider Test Date Status APRMARGOUSSANA 02/05/2024 13:55:58 Final Observation Date Value Abnormality Reference (Units ) Status LDL, (direct) 02/05/2024 13:55:58 78 <=129 (mg/dL) Final LDL Cholesterol Reference Ra nges (mg/dL):
<70 Target level for high risk ASCVD patient
<100 Optimal for general population
100-129 Near optimal for general population
130-159 Borderline high
160-189 High
>=190 Very high Performing Location LABORATORY [facility] - [address] [place] [address]
--- OUTSIDE RECORDS SUMMARY | 2024-03-18 08:58 | External Medical Summary ---
Author Name Unknown Address Unknown Organization : Laboratory Report Ordering Provider Test Date Status ILAN ESCOBEDO 02/05/2024 13:55:58 Final Observation Date Value Abnormality Reference (Units ) Status Apolipoprotein B 02/05/2024 13:55:58 137 Above high no rmal <90 (mg/dL) Final Reference Range: <90
Ris k Category:
Optimal < 90
Moderate 90 - 119
High > or = 120
Cardiovascular event risk category cut points
(optimal, moderate, high) are based on National
Lipid Association recommendations-Kenneth TA et al.
J Clin Lipid. 2015;9:129-169 and Alisha MELCHOR et al.
Endocr Pract. 2017;23(Suppl 2):1-87.

Test Performed at:
[facility]
[address]
[place] [address]
Bennie Saavedra M.D., Ph.D.,Director of Laboratories Performing Location
--- NOTE | 2024-03-18 08:59 | Operative Report ---
Post Operative Report Pre & Post Diagnosis Operation Date: 03/18/24 07:45 Pre-Op Diagnosis: Cervical spinal stenosis with radiculopathy Post-Op Diagnosis: Same I identified the patient and participated in the time-out.: Yes Procedure Operation Date: 03/18/24 07:45 Actual Procedures #1 anterior cervical discectomy with bilateral foraminotomies C4-C5. #2 anterior cervical arthrodesis C4-C5. #3 placement of Spira 7 mm cage filled with os design bone graft C for C5. #4 application of Z plate and screws across C4-C5. Surgeon Julio Andrade, Paragliding Instructor Betty Person Estimated Blood Loss 5 Findings See Below Patient is 5 foot 3 weighing 97 kg with a BMI in excess of 37. Patient's body was did contribute to significant technical difficulty with positioning exposure and the procedure itself adding these 50% increased operative time. Specimens None Indications This is a 48-year-old female presents publish diagnosis after failing course of nonoperative care is here for surgical invention. Description of Procedure Patient was met with identified informed consent obtained. 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 All bony prominences well-pad ded eyes inspected to ensure no external pressure placed upon them. This point the anterior cervical spine was prepped and draped no sterile fashion. The assistance of fluoroscopy identified the C4-C5 disc space and a transverse incision was placed along the right anterior aspect the cervical spine overlying this region. Blunt dissection with the assistance of bipolar electrocautery performed down to and exposing the anterior cervical spine is C4-C5. A self- retaining retractors placed. Then formed a complete discectomy of C4-C5 out to the uncovertebral joints bilaterally. [place] distractor pins utilized to assist in visualization. Removed all posterior annular fibers longitudinal ligament bilateral foraminotomies performed. Endplates burred to subcortical bleeding bone and a 7 mm Spira cage filled with os design bone graft tapped in position. Distracting apparatus was removed. A Z plate and screws applied with the assistance of fluoroscopy. The incision was then copiously irrigated. Was explored to ensure no damage surrounding structures remaining bleeding. 10 round PILAR drain inserted. The incision was then closed with 2 Vicryl to fascia and a 4 Monocryl for final skin closure. Steri-Strips sterile dressing placed. Patient waken taken PACU stable condition. Please note spinal cord monitoring was utilized at the procedure no changes noted. Betty Person was present out the entire surgery involved the patient positioning complex portions of the surgery and fashion closure. Im ordering 10 grams of Triple Ama Collagen Powder ([employer] [id number]) to treat an incision wound that was caused by a spine procedure. The incision is approximately 2 cm(W) x 4 cm(L) into the joint (D) in size and is a full thickness wound. Triple Ama collagen comes in 1 gram packets so 10 packets were ordered. Given the size of the wound, with light to moderate exudate I chose to order a 10 day supply. The patient will be provided instructions for proper application of the collagen wound kit. The patient will be asked to apply the collagen powder daily and then cover it with sterile dressings dispensed. Collagen was selected as I expect the collagen to attract monocytes and fibroblasts, act as a sacrificial substrate for MMPs, and ultimately proved a matrix for tissue and vessel growth. The collagen will act as a primary dressing in this scenario. It is medically necessary for proper healing of these wounds to improve bioavailability and contact with each wound surface, this is also to help prevent infection of wounds and promote healing ultimately leading to a better healing outcome and limit the risk of infection. I attest to the content of the Intraoperative Record and any orders documented therein. Any exceptions are noted below.
--- NOTE | 2024-03-18 09:39 | Fluoroscopy Report ---
FL cervical 2-3V CLINICAL HISTORY: C4-C5 ACDF COMPARISON STUDY: MRI 11/02/2023 FLUOROSCOPY TIME: 7 seconds FLUOROSCOPY IMAGES: 2 EXPOSURE DOSE: 1.15 mGy FINDINGS: Anterior plate and screw fusion hardware is noted at what is labeled the C4-C5 level. A keyonna gical sponge is noted anterior to the hardware. Endotracheal tube is in place. Note that the images w ere submitted following completion of the surgery. IMPRESSION: Fluoroscopic assistance as above. ACT 112: Negative or not required by law. Electronically signed by: Jean-Claude Marquez M.D. 03/18/2024 9:38 AM
[2024-03-18] MEDS: HYDROmorphone INJ 2 MG/ML SYR/VIAL IV PRN (09:52)
[2024-03-18] MEDS ORDERED: hydrOXYzine HCl 25 MG TAB PO PRN (10:14)
[2024-03-18] MEDS ORDERED: METOCLOPRAMIDE HCL INJ 5 MG/ML 2 ML VIAL IV PRN (10:14)
[2024-03-18] MEDS ORDERED: NALOXONE HCL 0.4 MG/1 ML VIAL/CARP IV PRN (10:14)
[2024-03-18] MEDS ORDERED: ONDANSETRON 4 MG OD TAB PO PRN (10:14)
[2024-03-18] MEDS ORDERED: ALUMINUM/MAGNESIUM SUSP 30 ML UDC PO PRN (10:14)
[2024-03-18] MEDS ORDERED: DO NOT ADMINISTER PNEUMOCOCCAL VACCINE PRN (10:14)
[2024-03-18] MEDS ORDERED: bisacodyL 10 MG SUPP PR PRN (10:14)
[2024-03-18] MEDS ORDERED: HYDROmorphone INJ 0.5 MG/0.5 ML SYR IV PRN (10:14)
[2024-03-18] MEDS ORDERED: DO NOT ADMINISTER FLU VACCINE PRN (10:14)
[2024-03-18] MEDS ORDERED: RACEPINEPHRINE 2.25% NEBU SOLN 0.5 ML VIAL INH PRN (10:14)
[2024-03-18] MEDS ORDERED: PROMETHAZINE 12.5 MG/50.5 ML BAG IV PRN (10:14)
[2024-03-18] MEDS ORDERED: LORazepam 2 MG/1 ML VIAL IV PRN (10:14)
[2024-03-18] MEDS ORDERED: SOD PHOSPHATE/SOD BIPHOSPHATE ENEMA 132 ML BTL PR PRN (10:14)
[2024-03-18] MEDS ORDERED: PHARMACY GLYCEMIC MGMT CONSULT PRN (10:14)
[2024-03-18] MEDS ORDERED: MEDICAL THC PO PRN (10:14)
[2024-03-18] MEDS ORDERED: dexAMETHasone 8 MG in SYRINGE 0 ML IV PRN (10:14)
[2024-03-18] MEDS ORDERED: diphenhydrAMINE Capsule 25 MG CAP PO PRN (10:14)
[2024-03-18] MEDS ORDERED: traMADol HCL 50 MG TABLET PO PRN (10:14)
[2024-03-18] MEDS ORDERED: FAMOTIDINE 20 MG TAB PO PRN (10:14)
[2024-03-18] MEDS ORDERED: ONDANSETRON INJ 2 MG/ML 2 ML VIAL IV PRN (10:14)
[2024-03-18] MEDS ORDERED: LORazepam 0.5 MG TAB PO PRN (10:14)
[2024-03-18] MEDS ORDERED: ACETAMINOPHEN 1,000 MG/100 ML VIAL IV PRN (10:14)
[2024-03-18] MEDS ORDERED: PROCHLORPERAZINE MALEATE 10 MG TAB PO PRN (10:14)
[2024-03-18] MEDS ORDERED: MAGNESIUM HYDROXIDE SUSP 30 ML UDC PO PRN (10:14)
[2024-03-18] MEDS ORDERED: ACETAMINOPHEN 500 MG TAB PO PRN (10:14)
[2024-03-18] MEDS ORDERED: GLUCOSE 40% GEL 15 GM TUBE PO PRN (10:56)
[2024-03-18] MEDS ORDERED: CARBOHYDRATES FOR HYPOGLYCEMIA PO PRN (10:56)
[2024-03-18] MEDS ORDERED: GLUCAGON FOR INJ 1 MG VIAL SQ PRN (10:56)
[2024-03-18] MEDS ORDERED: GLUCOSE 10 TAB/TUBE PO PRN (10:56)
[2024-03-18] MEDS ORDERED: DEXTROSE 50% 50 ML SYRINGE IV PRN (10:56)
--- NOTE | 2024-03-18 11:23 | Hospitalist Consultation ---
Date of Consultation March 18, 2024 Assessment & Plan (1) Cervical stenosis of spinal canal: This is a 48 y/o female with uncontrolled ketosis prone diabetes mellitus, diabetic polyneuropathy, CKD3b, HTN, and other history as outlined below who underwent C4-C5 ACDF by Dr. Andrade today and for whom we have been consulted to assist with post-operative medical management. - Pain control, activity, DVT prophylaxis per primary service - Labs in the AM - CBC, BMP - Encourage incentive spirometry (2) Diabetes type 2, uncontrolled: Pharmacy consulted for assistance with glycemic management. Historically, pt has required less insulin when admitted than she does at home. Initial orders placed based on last admission. Appreciate pharmacy input, especially in view of steroids administered. (3) Hypertension: Chronic, stable Continue outpatient meds (4) GERD (gastroesophageal reflux disease): Chronic, stable. Continue PPI (5) Chronic renal disease, stage 3, moderately decreased glomerular filtration rate (GFR) between 30-59 mL/min/1.73 square meter: Check BMP in the AM (6) Depression with anxiety: Chronic, stable Continue outpatient meds (7) History of congestive heart failure: History of HFpEF. Caution with IVF to avoid potential fluid overload. Resumed Entresto as pt taking outpatient. Plan Pt seen and reviewed with collaborating physician, Dr. Ricardo. Plan of care discussed and as outlined above. Thank you for this consultation. We will continue to follow the patient with you. A member of the [facility] Hospitalist team is available 31/10 via [email or web address]. Please don't hesitate to reach out with questions. Armin Tucker PA-C Supervising Physician Co-Signing Physician Notes 48 yo F w/ PMH of uncontrolled DM2, diabetic polyneuropathy, CKD 3b, HTN was seen at bedside as medical Mx after C4-C5 ACDF on 03/18. Pt denies any fever/sore throat/cough/chills in the last 1 week. Pt is hemodynamically stable after the sx. She reports improvement in her BUE (LUE > RUE) radicular s/s after sx. c/w pain Mx, bowel regimen, SCDs for DVT Px. Resume home meds as able, f/u on labs in AM. On exam: GENERAL: Alert and oriented x3. NAD, on 2L NC O2. HEENT: No pallor, no icterus. Pupils equal, round and reactive to light. Oral mucosa moist. NECK: No JVD, no neck masses. HEART: S1 and S2 heard. Regular rate and rhythm. No murmur, no gallop. RESPIRATORY SYSTEM: Normal AP diameter. No accessory muscle use. No wheezing, no crackles. ABDOMEN: Soft, bowel sounds present, nontender, no distention. CENTRAL NERVOUS SYSTEM: No facial droop. Speech is clear. Obeys simple commands. Moves extremities. EXTREMITIES: No edema, no erythema seen. Ant cervical dressing c/d/i w/ c- collar in situ. Distal NV status wnl. PILAR drain w/ minimal serosanguineous outs. I have seen and examined the patient and have discussed the case with the provider above. I agree with the assessment and plan as stated. Time spent: 15 min History of Present Illness Reason for Consultation: Post-operative medical management Requesting Physician: Dr. Julio Andrade Attending Physician: Julio Andrade, DO History of Present Illness This is a 48 y/o female with uncontrolled ketosis prone diabetes mellitus, d iabetic polyneuropathy, CKD3b, HTN, and other history as outlined below who underwent C4-C5 ACDF by Dr. Andrade today and for whom we have been consulted to assist with post-operative medical management. Currently, pt reports feeling well. Her pain is controlled. The UE numbness and tingling before surgery is already improving. She denies chest pain, dyspnea, N/V, dysphagia, or sore throat. She was admitted in January for OK on CKD and her chlorthalidone, Jardiance, and Entresto were stopped. She saw nephrology in f/u at the end of January and the Entresto was resumed. She also saw cardiology who added hydralazine temporarily until the resumption of her other medications could be discussed after this surgery. She reports her blood sugars have been at her baseline at home. Allergies Allergy/AdvReac Type Severity Reaction Status Date / Time bee venom protein (honey bee) Allergy Intermediate RED, SHORT Verified 03/18/24 06:04 OF BREATH No Known Drug Allergies Allergy Unknown NKDA Verified 03/18/24 06:04 Home Medications Medication Instructions Recorded Confirmed Type allopurinol 300 mg tablet 300 mg PO QAM 01/24/24 03/18/24 History amlodipine 10 mg tablet 10 mg PO QAM 01/24/24 03/18/24 History aspirin 325 mg tablet 325 mg PO QAM 01/24/24 03/18/24 History baclofen 10 mg tablet 10 mg PO TID 01/24/24 03/18/24 History buspirone 15 mg tablet 15 mg PO QAM 01/24/24 03/18/24 History carvedilol 25 mg tablet (Coreg) 50 mg PO BID 01/24/24 03/18/24 History duloxetine 60 mg capsule,delayed 60 mg PO QAM 01/24/24 03/18/24 History release eszopiclone 1 mg tablet (Lunesta) 1 mg PO HS 01/24/24 03/18/24 History furosemide 40 mg tablet (Lasix) 40 mg PO UD 01/24/24 03/18/24 History insulin lispro 100 unit/mL 30 sliding scale dose subcut AC 01/24/24 03/18/24 History subcutaneous pen (Humalog KwikPen (U-100) Insulin) omega 2-tlh-xkj-fish oil 1,000 mg 1 cap PO QAM 01/24/24 03/18/24 History (120 mg-180 mg) capsule (Fish Oil) pantoprazole 40 mg tablet,delayed 40 mg PO QAM 01/24/24 03/18/24 History release (Protonix) pregabalin 150 mg capsule 150 mg PO TID 01/24/24 03/18/24 History prochlorperazine maleate 10 mg 10 mg PO TID PRN Nausea And 01/24/24 03/18/24 History tablet (Compazine) Vomiting sodium bicarbonate 650 mg tablet 1,950 mg PO TID 01/24/24 03/18/24 History Medical Thc 1 dose PO UD PRN ud 03/06/24 03/18/24 History atorvastatin 80 mg tablet 80 mg PO QAM 03/06/24 03/18/24 History gabapentin 300 mg capsule 300 mg PO BID 03/06/24 03/18/24 History hydralazine 10 mg tablet 10 mg PO TID 03/06/24 03/18/24 History insulin degludec 200 unit/mL (3 120 unit subcut QAM 03/06/24 03/18/24 History mL) subcutaneous pen (Tresiba FlexTouch U-200 insulin) oxycodone 5 mg tablet 5 mg PO Q6H PRN pain #20 tabs 03/18/24 Rx sacubitril 97 mg-valsartan 103 mg 1 tab PO BID 03/18/24 03/18/24 History tablet (Entresto) tramadol 50 mg tablet 50 mg PO Q6H PRN pain, moderate 03/18/24 Rx #30 tabs Patient History Medical History (Updated 03/18/24 @ 15:52 by Eveline Tucker PA-C) Cervical disc herniation MRI 10/2023, limited rom of neck Anemia of chronic disease has required blood transfusions in past-last transfusion last year Dyslipidemia Hypertension controlled, stable per pt History of nephrolithiasis x 1, passsed on own Diabetic peripheral neuropathy GERD (gastroesophageal reflux disease) controlled, stable per pt Diabetes mellitus, type 2 IDDM Chronic kidney disease, stage [address] dwight colon at [facility] [place] Hyperparathyroidism Depression with anxiety History of endometriosis History of renal dialysis (04/2017) - [facility] - ARF 2/2 DKA Hx of Clostridium difficile infection 2012 - treated, no problems since Chronic nausea Surgical History History of esophagogastroduodenoscopy (EGD) Hx of colonoscopy History of open reduction and internal fixation (ORIF) procedure (2018) left fibula Hx of tracheostomy (2013) R/T COMPLICATIONS AFTER ILEOSTOMY REVERSAL SURGERY IN 2011; HAS SINCE BEEN REVERSED History of rotator cuff surgery (2017) RT History of lumbar spinal fusion (2006) History of reversal of ileostomy (2012) History of ileostomy (2012) Status post cholecystectomy (2017) "cholelithiasis" Status post partial colectomy (2012) "for C diff colitis" Family History (Updated 03/06/24 @ 14:36 by Citlali Welch, MALIK) Mother Diabetes Other No family history of adverse response to anesthesia Social History Smoking Status: Former smoker Tobacco Type: Cigarettes Cigarettes Per Day: 5; Smoking End Date: 12/16/2023 (advised); Second Hand Exposure: No; Do You Dip or Chew Tobacco: No; Tobacco Cessation Education Requested by Patient: No Hx Alcohol Use: No Hx Substance Use: No Preferred Language: Kyrgyz Communication Ability: Effective Juice Standardizer Required: No Beliefs That Will Affect Care: None marital status: Current Living Situation: Spouse Other Information That Helps Us Care for You: No Feels Safe at Home: Yes Safety Concerns: Feels Safe At This Time Assistive Devices: Cane and Walker Review of Systems Review of Systems: All systems reviewed & are unremarkable except as noted in Subjective Physical Exam Physical Exam: General: awake, alert, NAD HEENT: no scleral icterus, slightly dry oral mucosa Neck: hard cervical collar in place, PILAR drain with scant sanguinous drainage Heart: RRR Lungs: CTA bilaterally on the anterior Abdomen: soft, NT, +BS Extremities: bilateral UE sensation to light touch intact, radiation oncology nurse strength 5/5 and equal Skin: warm, dry Neurologic: OX3, no confusion or dysarthria, no focal deficits Results & Data Results & Data Vital Signs (Past 12 Hours) Vital Signs Temp Pulse Pulse Resp BP Pulse Ox O2 Del Method 03/18/24 10:50 36.7 C 76 16 134/78 97 Nasal Cannula 03/18/24 10:20 74 17 135/87 97 Nasal Cannula 03/18/24 10:10 37.0 C 73 15 147/82 H 97 Nasal Cannula 03/18/24 10:00 73 22 141/86 H 95 Nasal Cannula 03/18/24 09:50 76 17 161/92 H 96 Nasal Cannula 03/18/24 09:40 75 16 146/89 H 98 Oxymask 03/18/24 09:30 72 18 152/91 H 99 Oxymask 03/18/24 09:20 71 18 147/90 H 97 Oxymask 03/18/24 09:10 36.3 C L 71 14 131/91 99 Oxymask 03/18/24 05:48 37 C 79 20 179/93 H 98 Room Air O2 Flow Rate 03/18/24 10:50 2 03/18/24 10:20 2 03/18/24 10:10 2 03/18/24 10:00 2 03/18/24 09:50 2 03/18/24 09:40 3 03/18/24 09:30 7 03/18/24 09:20 7 03/18/24 09:10 7 03/18/24 05:48 (2) Diabetes type 2, uncontrolled Glycemic state: with hyperglycemia Qualified Code(s): E11.65 - Type 2 diabetes mellitus with hyperglycemia (3) Hypertension Hypertension type: primary hypertension Qualified Code(s): I10 - Essential (primary) hypertension (4) GERD (gastroesophageal reflux disease) Esophagitis presence: esophagitis presence not specified Qualified Code(s): K21.9 - Gastro-esophageal reflux disease without esophagitis (5) Chronic renal disease, stage 3, moderately decreased glomerular filtration rate (GFR) between 30-59 mL/min/1.73 square meter Chronic kidney disease stage 3 subtype: stage 3b (GFR 30-44) Qualified Code(s): N18.32 - Chronic kidney disease, stage 3b
--- NOTE | 2024-03-18 11:25 | Pharmacy Report ---
Pharmacy Glycemic Short Note 2 - Date of Service March 18, 2024 - Glycemic Short BSG Results (Last 24 hours): 03/18/24 03/18/24 06:22 09:12 POC Glucose 176 H 170 H OUTPATIENT ANTIDIABETIC REGIMEN: * Tresiba 120 units daily AM, Humalog 30 units TIDM ASSESSMENT: * 48 year old s/p surgery, POD 0 - Pharmacy consulted for glycemic management. Patient historically requiring much less insulin than outpatient regimen during hospitalization. Most recent visit 01/2024 and she required Lantus 50 units / CF 15 / CR 7 and blood sugars were reasonably controlled. * Postop BSG 170 mg/dL - has Dexamethasone 6 mg iv daily starting now. Anticipate steroid induced hyperglycemia. Verified with patient and she did not take any basal insulin this morning [employer]. Will give Lantus 60 units x 1 now, stressed dose based upon last admission due to steroids. Patient reports she is feeling well and is hungry so will be eating. Denies any N/V. Will add novolog scale for lunch time and overnight checks as well. * May consider scale for basal at HS if BSGs are elevated from steroids PLAN FOR INPATIENT GLYCEMIC CONTROL: * Hold outpatient oral diabetes medications * Basal insulin * Lantus 60 units x 1 (to cover IV dexamethasone) * Lantus 0-15 units HS * Bolus insulin * NovoLog per scale ACHS or Q6hrs while NPO * Goal Range: Low 110 mg/dL - High 140 mg/dL * Correction Factor: 15 mg/dL/unit * Nutritional / Prandial insulin per carb ratio of 1 unit per 4 grams CHO consumed
[2024-03-18] MEDS: HYDROmorphone INJ 1 MG/ML SYRINGE IV PRN (11:26)
[2024-03-18] MEDS: ATORVASTATIN 40 MG TAB PO SCH (12:05)
[2024-03-18] MEDS: DULoxetine HCL 60 MG CAP PO SCH (12:06)
[2024-03-18] MEDS: busPIRone 15 MG TAB PO SCH (12:06)
[2024-03-18] MEDS: BACLOFEN 10 MG TAB PO SCH (12:06)
[2024-03-18] MEDS: carvediloL 25 MG TAB PO SCH (12:06)
[2024-03-18] MEDS: hydrALAZINE 10 MG TAB PO SCH (12:07)
[2024-03-18] MEDS: GABAPENTIN 300 MG CAP PO SCH (12:07)
[2024-03-18] MEDS: PANTOprazole 40 MG TAB PO SCH (12:08)
[2024-03-18] MEDS: SODIUM BICARBONATE 650 MG TAB PO SCH (12:09)
[2024-03-18] MEDS: FUROSEMIDE 40 MG TAB PO SCH (12:10)
[2024-03-18] MEDS: amLODIPine BESYLATE 5 MG TAB PO SCH (12:12)
[2024-03-18] MEDS: allopurinoL 300 MG TAB PO SCH (12:12)
[2024-03-18] MEDS: dexAMETHasone 6 MG in SYRINGE 0 ML IV SCH (12:12)
[2024-03-18] MEDS: INSULIN ASPART PER UNIT CHARGE SC SCH (12:17)
[2024-03-18] MEDS: LANTUS PER UNIT CHARGE SQ ONE (12:23)
[2024-03-18] MEDS: PREGABALIN 150 MG CAP PO SCH (12:23)
--- NOTE | 2024-03-18 13:57 | Anesthesiology Progress Note ---
Date of Service March 18, 2024 Anesthesia Post Procedure Vital Signs Vital Signs: Temp Pulse Pulse Resp BP Pulse Ox O2 Del Method 03/18/24 13:18 36.6 C 82 16 148/75 H 95 Nasal Cannula 03/18/24 12:20 36.8 C 76 16 133/75 97 Nasal Cannula 03/18/24 11:34 74 16 97 Nasal Cannula 03/18/24 11:20 75 18 146/79 H 96 Nasal Cannula 03/18/24 10:50 36.7 C 76 16 134/78 97 Nasal Cannula 03/18/24 10:20 Nasal Cannula 03/18/24 10:20 37.0 C 76 18 148/74 H 97 Nasal Cannula 03/18/24 10:20 74 17 135/87 97 Nasal Cannula 03/18/24 10:10 37.0 C 73 15 147/82 H 97 Nasal Cannula 03/18/24 10:00 73 22 141/86 H 95 Nasal Cannula 03/18/24 09:50 76 17 161/92 H 96 Nasal Cannula 03/18/24 09:40 75 16 146/89 H 98 Oxymask 03/18/24 09:30 72 18 152/91 H 99 Oxymask 03/18/24 09:20 71 18 147/90 H 97 Oxymask 03/18/24 09:10 36.3 C L 71 14 131/91 99 Oxymask 03/18/24 05:48 37 C 79 20 179/93 H 98 Room Air O2 Flow Rate 03/18/24 13:18 2 03/18/24 12:20 2 03/18/24 11:34 2 03/18/24 11:20 2 03/18/24 10:50 2 03/18/24 10:20 2 03/18/24 10:20 2 03/18/24 10:20 2 03/18/24 10:10 2 03/18/24 10:00 2 03/18/24 09:50 2 03/18/24 09:40 3 03/18/24 09:30 7 03/18/24 09:20 7 03/18/24 09:10 7 03/18/24 05:48 Pain Intensity Bilateral Shoulder: Pain Intensity: 9 Neck: Pain Intensity: 7 Transfer of Care Handoff Completed per policy Notes Mental Status: alert / awake / arousable and participated in evaluation Nausea / Vomiting: adequately controlled Pain: adequately controlled Airway Patency, RR, SpO2: stable & adequate BP & HR: stable & adequate Hydration State: stable & adequate Anesthetic Complications: no major complications apparent and Pt Satisfied with anesthetic care
[2024-03-18] MEDS: DOCUSATE SODIUM/SENNA 50/8.6MG TAB PO SCH (20:35)
[2024-03-18] MEDS: ESZOPICLONE 1 MG TAB PO SCH (20:36)
[2024-03-18] MEDS: LANTUS PER UNIT CHARGE SQ SCH (20:54)
[2024-03-19] MEDS: INSULIN ASPART PER UNIT CHARGE SC SCH (00:06)
[2024-03-19] MEDS: POLYETHYLENE (MIRALAX) 17 GM PACK PO SCH (05:24)
[2024-03-19] MEDS: oxyCODONE HCL IR 5 MG TAB (IMMEDIATE RELEASE) PO PRN (05:24)
[2024-03-19 07:35] VITALS: TEMP 98.2
[2024-03-19] MEDS: LANTUS PER UNIT CHARGE SQ SCH (08:21)
--- NOTE | 2024-03-19 08:57 | Discharge Summary ---
Date of Service March 19, 2024 Admission HPI Per Admitting Provider This is a 48-year-old female who presents with persistent neck and arm pain after failing course of nonoperative care is here for surgical intervention. Admission Exam (Per Admitting) Constitutional WD/WN, vitals as above well developed Eyes normal visual cheney by confrontation ENMT external ear and nose normal, oropharynx normal Neck normal visual inspection Respiratory normal respiratory effort Cardiovascular Extremities: normal capillary refill Gastrointestinal (Abdomen) Inspection/Auscultation: abdomen normal to inspection Musculoskeletal Spine: + limited cervical ROM Extremities: extremities normal to inspection and strength 5/5 throughout Skin no rashes, warm and dry Neurologic patellar DTR's 2+ bilat, sensation intact normal touch/pain/proprioception and moves all extremities Psychiatric A+Ox3, euthymic affect Discharge Data Consultations 03/18/24 10:14 Consult Hospitalist Routine Procedures Performed Operation Date: 03/18/24 07:45 Actual Procedures p C4-C5 Anterior Cervical Discectomy and Fusion with Spinal Cord Monitoring(Not Applicable) - Julio Andrade, DO Hospital Course (1) Cervical stenosis of spinal canal: [place] is status post ACDF C4-5. She is being discharged home on postoperative day 1. She had an uneventful hospital course. Upper extremity symptoms improved. She is up and ambulatory and voiding without issue. No other complaints. Discharge Instructions ACTIVITY RECOMMENDATIONS: SELF CARE INSTRUCTIONS AFTER CERVICAL FUSIONS 1. No smoking. Smoking drastically decreases the chance of a solid fusion. 2. No bending, lifting more than 5 pounds, or twisting (roll like a log when turning in bed). 3. You may shower 3 days after surgery. Thoroughly dry wound. Do not soak in the tub. 4. Cervical collar: Must be worn at all times including sleeping. You may remove the brace only to bath, eat and if you are sitting in a recliner. 5. Please walk as much as you can for exercise. Gradually increase the distance that you walk as your endurance increases. 6. You may return to previous diet. SPECIAL CARE INSTRUCTIONS: VERY IMPORTANT TO READ AND REVIEW A. Do not take any anti-inflammatory medications (i.e. Indocin, Advil, Aspirin, Naprosyn, Aleve, Motrin, etc.) as these may inhibit the chance of a solid fusion. Tylenol is okay to take. B. Your surgical incision has been closed with a cosmetic suture under the skin that will dissolve in about 6 weeks. In 14 days, you can use a pair of clean scissors and cut the suture that is left outside of the skin at the ends of your incision. C. Complications are uncommon, but please contact us if you have any signs or symptoms of: 1. wound infection (fever higher than 102.5 degrees F, redness, separation of wound, drainage, or increasing pain from the incision) 2. blood clots in legs (pain, swelling, redness and warmth in legs) 3. urinary tract infection (fever higher than 102.5 degrees, burning upon urination or increased frequency of urination) 4. nerve problems (inability to walk on your toes or heels, numbness, loss of bowel or bladder control) 5. any other symptoms that concern you. D. Please call the office at if you have any concerns or questions about your operation or recovery. MANAGING PAIN AFTER SPINAL SURGERY 1. Narcotic medication is intended for short-term use and will be provided for surgical pain. Surgical pain usually lasts for a period of 4-6 weeks. N arcotic medication includes Percocet, Vicodin, Darvocet, Tylenol #3 or Lortab. 2. Longer-term pain is more appropriately treated with non-narcotic medication such as Tylenol ES. 3. Muscle spasm is not appropriately treated with narcotics. Muscle relaxers such as Soma, Flexeril or Skelaxin can be used along with Tylenol ES. 4. Remember that we all live with some "aches and pains". This is not unusual or uncommon after an injury or as we get older. 5. We will provide appropriate medication within the normal guidelines of their prescribed use. We will also be very cautious and aware of potential abuse and extended duration of patients' medication needs. 6. Please allow 2-3 days to process refills. Prescriptions will not be mailed but must be picked up at the office. FOLLOW UP VISIT: Keep your scheduled follow-up appointment. Any questions, please call the office at .
[2024-03-19 09:41] VITALS: BP 135/80; PULSE 86; RESP 18; O2SAT 95
== END 2024-03-19 12:08 | disposition home or self-care (01) ==
LOC: ASU 05:41 → 3E 05:41

== ENCOUNTER 2024-04-08 01:36 | Inpatient (IN) ==
--- NOTE | 2024-04-08 02:26 | Emergency Department Note ---
History of Present Illness General Chief complaint: Neck Injury/Pain Stated complaint: NECK PAIN Time Seen by Provider: 04/08/24 02:19 History of Present Illness Maximum Pain Intensity: 8 This 48-year-old female who had surgery by Dr. Andrade on March 18 of this month he was doing well until Haja presents ER for severe neck pain rating down the right arm. She states this pain is different than prior to her surgery. She states she was doing well until a few days ago. She was seen here earlier and given some pain meds with no relief of symptoms. Patient denies numbness, tingling, arm weakness, fever, chills, new trauma to the area. Home Medications Medication Instructions Recorded Confirmed Type allopurinol 300 mg tablet 300 mg PO QAM 01/24/24 03/18/24 History amlodipine 10 mg tablet 10 mg PO QAM 01/24/24 03/18/24 History aspirin 325 mg tablet 325 mg PO QAM 01/24/24 03/18/24 History baclofen 10 mg tablet 10 mg PO TID 01/24/24 03/18/24 History buspirone 15 mg tablet 15 mg PO QAM 01/24/24 03/18/24 History carvedilol 25 mg tablet (Coreg) 50 mg PO BID 01/24/24 03/18/24 History duloxetine 60 mg capsule,delayed 60 mg PO QAM 01/24/24 03/18/24 History release eszopiclone 1 mg tablet (Lunesta) 1 mg PO HS 01/24/24 03/18/24 History furosemide 40 mg tablet (Lasix) 40 mg PO UD 01/24/24 03/18/24 History insulin lispro 100 unit/mL 30 sliding scale dose subcut AC 01/24/24 03/18/24 History subcutaneous pen (Humalog KwikPen (U-100) Insulin) omega 0-afa-cls-fish oil 1,000 mg 1 cap PO QAM 01/24/24 03/18/24 History (120 mg-180 mg) capsule (Fish Oil) pantoprazole 40 mg tablet,delayed 40 mg PO QAM 01/24/24 03/18/24 History release (Protonix) pregabalin 150 mg capsule 150 mg PO TID 01/24/24 03/18/24 History prochlorperazine maleate 10 mg 10 mg PO TID PRN Nausea And 01/24/24 03/18/24 History tablet (Compazine) Vomiting sodium bicarbonate 650 mg tablet 1,950 mg PO TID 01/24/24 03/18/24 History Medical Thc 1 dose PO UD PRN ud 03/06/24 03/18/24 History atorvastatin 80 mg tablet 80 mg PO QAM 03/06/24 03/18/24 History gabapentin 300 mg capsule 300 mg PO BID 03/06/24 03/18/24 History hydralazine 10 mg tablet 10 mg PO TID 03/06/24 03/18/24 History insulin degludec 200 unit/mL (3 120 unit subcut QAM 03/06/24 03/18/24 History mL) subcutaneous pen (Tresiba FlexTouch U-200 insulin) oxycodone 5 mg tablet 5 mg PO Q6H PRN pain #20 tabs 03/18/24 Rx sacubitril 97 mg-valsartan 103 mg 1 tab PO BID 03/18/24 03/18/24 History tablet (Entresto) tramadol 50 mg tablet 50 mg PO Q6H PRN pain, moderate 03/18/24 Rx #30 tabs Allergies Allergy/AdvReac Type Severity Reaction Status Date / Time bee venom protein (honey bee) Allergy Intermediate RED, SHORT Verified 03/18/24 06:04 OF BREATH No Known Drug Allergies Allergy Unknown NKDA Verified 03/18/24 06:04 Past Med/Surg History Problem List (Updated 04/08/24 @ 05:08 by Gabi Sandhu PA-C) Intractable pain (Acute) Acute neck pain (Acute) Neck pain (Acute) History of congestive heart failure Cervical stenosis of spinal canal Acute kidney injury superimposed on CKD (Acute) Depression with anxiety Hyperparathyroidism 05/20/22 Chronic renal disease, stage 3, moderately decreased glomerular filtration rate (GFR) between 30-59 mL/min/1.73 square meter Diabetic nephropathy associated with type 2 diabetes mellitus Diabetes type 2, uncontrolled Diabetic peripheral neuropathy associated with type 2 diabetes mellitus 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/15/19 Dysesthesia 03/15/19 Dyslipidemia Hypercalcemia 03/15/19 Hypertension Nephrolithiasis Vitamin D deficiency Acidosis, metabolic 10/16/20 Anemia of chronic disease GERD (gastroesophageal reflux disease) Medical History Cervical disc herniation MRI 10/2023, limited rom of neck Anemia of chronic disease has required blood transfusions in past-last transfusion last year Dyslipidemia Hypertension controlled, stable per pt History of nephrolithiasis x 1, passsed on own Diabetic peripheral neuropathy GERD (gastroesophageal reflux disease) controlled, stable per pt Diabetes mellitus, type 2 IDDM Chronic kidney disease, stage [address] dwight colon at [facility] Hyperparathyroidism Depression with anxiety History of endometriosis History of renal dialysis (04/2017) - [facility] - ARF 2/2 DKA Hx of Clostridium difficile infection 2012 - treated, no problems since Chronic nausea Surgical History History of esophagogastroduodenoscopy (EGD) Hx of colonoscopy History of open reduction and internal fixation (ORIF) procedure (2018) left fibula Hx of tracheostomy (2013) R/T COMPLICATIONS AFTER ILEOSTOMY REVERSAL SURGERY IN 2011; HAS SINCE BEEN REVERSED History of rotator cuff surgery (2017) RT History of lumbar spinal fusion (2006) History of reversal of ileostomy (2012) History of ileostomy (2012) Status post cholecystectomy (2017) "cholelithiasis" Status post partial colectomy (2012) "for C diff colitis" Family History Mother Diabetes Other No family history of adverse response to anesthesia Social History Smoking Status: Never smoker Tobacco Type: Cigarettes Cigarettes Per Day: 5; Second Hand Exposure: No; Do You Dip or Chew Tobacco: No; Hx Alcohol Use: No Hx Substance Use: No Preferred Language: Mongolian Communication Ability: Effective Screen Tender Required: No Beliefs That Will Affect Care: None marital status: Current Living Situation: Spouse Feels Safe at Home: Yes Assistive Devices: Walker Review of Systems A total of 10 systems reviewed and were otherwise negative Physical Exam Vital Signs Vital Signs - 24 hr 04/08/24 01:36 04/08/24 01:39 04/08/24 02:18 Temperature 36.6 C Temperature Source Oral Pulse Rate 95 H 88 Pulse Rate [Apical] 97 H Respiratory Rate 20 18 Respiratory Effort / Characteristics Non-Labored Spontaneous Respiratory Depth Normal Respiratory Pattern Regular Blood Pressure 143/88 H Blood Pressure [Right Arm] 193/126 H Blood Pressure Mean 106 Blood Pressure Mean [Right Arm] 148 Blood Pressure Position [Right Arm] Pulse Oximetry 97 97 Oxygen Delivery Method Room Air Room Air Sepsis Recent Fever Within 48 Hours No Sepsis New/Unexplained Change in Mental Status N/A Sepsis Action Taken by Nursing No Action Required 04/08/24 03:00 04/08/24 03:59 Temperature Temperature Source Pulse Rate Pulse Rate [Apical] 76 85 Respiratory Rate 16 18 Respiratory Effort / Characteristics Non-Labored Spontaneous Non-Labored Spontaneous Respiratory Depth Normal Normal Respiratory Pattern Regular Regular Blood Pressure Blood Pressure [Right Arm] 190/104 H 186/105 H Blood Pressure Mean Blood Pressure Mean [Right Arm] 132 132 Blood Pressure Position [Right Arm] Lying Pulse Oximetry 96 96 Oxygen Delivery Method Room Air Room Air Sepsis Recent Fever Within 48 Hours Sepsis New/Unexplained Change in Mental Status Sepsis Action Taken by Nursing VITALS: Vitals are noted on the nurse's note and reviewed by myself. Vital signs stable. GENERAL: Pleasant female who appears in pain, in no acute distress, nondiaphoretic, well-developed well-nourished. SKIN: Capillary reflex less than 2 seconds. HEENT: Normocephalic. PERRLA. EOMI. Nares patent. Mucous membranes moist. Neck is supple without nuchal rigidity. No C-spine tenderness HEART: Regular rate and rhythm LUNGS: Clear to auscultation bilaterally without wheezes, rales or rhonchi. No retractions or accessory muscle use. ABDOMEN: Positive bowel sounds x 4. Normal tympanic percussion. Soft, nontender, without masses or organomegaly. Freedman sign negative. No guarding or rebound tenderness. no CVA tenderness MUSCULOSKELETAL: No gross musculoskeletal defects. 5-5 strength throughout. NEURO: Patient was alert and oriented to person place and time. No focal neurological deficits. Course Administered Medications Discontinued Medications Dexamethasone Sodium Phosphate (DexamethasonePf 10 Mg/Ml Vial) 10 mg IV NOW ONE Stop: 04/08/24 02:25 Last Admin: 04/08/24 03:17 Dose: 10 mg Documented By: DMITRI Lorazepam (Lorazepam 1 Mg/1 Ml Syr Ed Inj Use) 1 mg IV ONE STA Stop: 04/08/24 03:15 Last Admin: 04/08/24 04:00 Dose: 1 mg Documented By: KYM Morphine Sulfate (Morphine Sulfate 4 Mg/Ml 1 Ml Carp\\Vial) 4 mg IV NOW STA Stop: 04/08/24 02:25 Last Admin: 04/08/24 03:17 Dose: 4 mg Documented By: DMITRI Ondansetron HCl (Ondansetron Inj 2 Mg/Ml 2 Ml Vial) 4 mg IV NOW STA Stop: 04/08/24 02:25 Last Admin: 04/08/24 03:17 Dose: 4 mg Documented By: DMITRI Medical Decision Making Medical Records Attestation: I reviewed the patient's medical records. Home Medications Current Medication List: was personally reviewed by me Laboratory Data Attestation: I reviewed the patient's lab results. 04/08/24 02:55 04/08/24 04:04 Lab Results 04/08/24 04/08/24 Range/Units 02:55 04:04 WBC 15.30 H (4.8-10.8) K/ul RBC 4.52 (4.20-5.40) M/uL Hgb 13.9 (12.0-16.0) g/dl Hct 40.0 (37.0-47.0) % MCV 88.5 (80.0-100.0) fL MCH 30.8 (25.0-34.0) pg MCHC 34.8 (32.0-36.0) g/dL RDW Std Deviation 45.4 (36.4-46.3) fL RDW Coeff of Chidi 14.2 (11.5-14.5) % Plt Count 304 (130-400) K/uL MPV 10.9 (9.4-12.4) fL Immature Gran % (Auto) 0.3 % Neut % (Auto) 75.9 % Lymph % (Auto) 14.5 % [place] % (Auto) 6.1 % Eos % (Auto) 2.5 % Baso % (Auto) 0.7 % Neut # (Auto) 11.61 H (1.40-6.50) K/uL Lymph # (Auto) 2.22 (1.20-3.40) K/uL [place] # (Auto) 0.94 H (0.11-0.59) K/uL Eos # (Auto) 0.38 (0.00-0.50) K/uL Baso # (Auto) 0.10 (0.00-0.20) K/uL Immature Gran # (Auto) 0.05 (0.01-0.20) K/uL Sodium 134 L (136-145) mmol/L Potassium TNP 5.0 Chloride 104 (98-107) mmol/L Carbon Dioxide 20 L (21-32) mmol/L Anion Gap 10 (3-11) BUN 41 H (6-23) mg/dl Creatinine 2.17 H (0.6-1.2) mg/dl Est Cr Clr Drug Dosing 34.2 ml/min eGFR 27.09 BUN/Creatinine Ratio 18.9 (10-20) Glucose 122 H (70-99(Fasting)) mg/dl Calcium 11.3 H (8.6-10.3) mg/dl Total Bilirubin 0.4 (0.2-1.0) mg/dl AST TNP 20 ALT 19 (7-52) U/L Alkaline Phosphatase 130 H (34-104) U/L Total Protein 7.4 (6.0-8.3) gm/dl Albumin 4.0 (3.4-5.0) gm/dl Globulin 3.4 (2.5-4.0) gm/dl Albumin/Globulin Ratio 1.2 (0.9-2) Imaging Data Attestation: I personally reviewed and interpreted this imaging study as follows: Radiologist's Impression: Cervical Spine CT 04/08/24 02:23 EXAM: CT cervical spine wo con CLINICAL HISTORY: None TECHNIQUE: Computed tomography of the cervical spine performed without intravenous contrast. Contiguous axial images were obtained from the skull base to T2, with sagittal and coronal reformatted images reconstructed from the axial data. CT scan was performed according to ALARA (as low as reasonable achievable). COMPARISON: None. FINDINGS: There is straightening of the normal cervical lordotic curvature. Status post anterior fusion of C4-C5 vertebral bodies, with screws and interconnecting rods in situ. The hardware appears intact and in appropriate position. Cervical vertebral bodies are normal in height and alignment, with no evidence of fracture or subluxation. Lateral masses of C1 are symmetrical, and the dens is intact. Prevertebral soft tissues are not widened. The remaining suprahyoid and infrahyoid soft tissues in the neck are unremarkable. C2-C3: No disc bulge, mass effect on the cord or neuroforaminal narrowing. C3-C4: No disc bulge, mass effect on the cord or neuroforaminal narrowing. C4-C5: Small disc osteophyte complexes causing mild thecal sac indentation without any significant spinal canal or neural foraminal narrowing. C5-C6: No disc bulge, mass effect on the cord or neuroforaminal narrowing. C6-C7: No disc bulge, mass effect on the cord or neuroforaminal narrowing. C7-T1: No disc bulge, mass effect on the cord or neuroforaminal narrowing. Thyroid gland shows enlarged right lobe with few hypodense lesions largest measuring 1cm. Suggested ultrasound correlation. IMPRESSION: 1. Status post anterior fusion of C4-C5 vertebral bodies with hardware in appropriate position 2. Small disc osteophyte complexes at C4-C5 level with mild thecal sac indentation, without significant canal or foraminal stenosis 3. Straightening of cervical lordosis Electronically signed by Latrell French 04-08-2024 04:50 AM MDM Narrative Prior records/ancillary studies reviewed. Triage Nursing notes reviewed. Additional history obtained from nurse. The patient's history was concerning for neck pain. Differential diagnosis: Etiologies such as postsurgical complication, musculoskeletal, disc herniation, fracture, metastatic disease, cord compression, discitis, infection, seroma, as well as others were entertained. Physical findings: As above. No focal neurologic findings noted. ER treatment provided: Morphine, Decadron, Zofran was ordered On reassessment the patient felt better. Diagnostics interpreted by me: The labs Independently Interpreted by myself revealed mild leukocytosis, stable creatinine per chart review Imaging studies: CT was reviewed and read by radiology as above Consultation: A consultation was placed with hospitalist. The case was discussed and diagnostics were reviewed. He will evaluate the patient for possible admission. This appears to be consistent with intractable neck pain. Patient is requesting admission. Patient was neurovascularly and neurologically intact. She was afebrile / nontoxic. Medicine was consulted case is discussed. She will be evaluated for possible admission. By the evaluation outlined above emergent etiologies such as fracture, metastatic disease, infection, as well as others were deemed relatively unlikely. The pt informed about the findings as listed above. All questions were answered and pleased with the treatment. The chart was completed utilizing [employer] voice recognition software. Grammatical errors, random word insertions, pronoun errors, and incomplete sentences are an occassional consequence of this system due to software limitations, ambient noise, and hardware issues. Any formal questions or concerns about the content, text, or information contained within the body of this dictation should be directly addressed to the physician assignment desk assistant for clarification. Impression & Plan Acute neck pain, Intractable pain Discharge Plan Visit Data Chief Complaint: Neck Injury/Pain Stated Complaint: NECK PAIN ED Provider: Lelo Umana ED Midlevel Provider: Gabi Sandhu Discharge Problem: Acute neck pain, Intractable pain Patient Disposition: Being Evaluated by Hospitalist Condition: Good Forms Stand Alone Forms: My [facility] Prescriptions Prescriptions: No Action furosemide [Lasix] 40 mg Tablet 40 mg PO UD Rx Instructions: Lasix 40mg PO in am and another 40mg PO 4hrs later carvedilol [Coreg] 25 mg Tablet 50 mg PO BID Rx Instructions: must administer with a meal/food aspirin 325 mg Tablet 325 mg PO QAM baclofen 10 mg tablet 10 mg PO TID amlodipine 10 mg Tablet 10 mg PO QAM pantoprazole [Protonix] 40 mg Tablet,Delayed Release (Dr/Ec) 40 mg PO QAM allopurinol 300 mg Tablet 300 mg PO QAM buspirone 15 mg tablet 15 mg PO QAM eszopiclone [Lunesta] 1 mg tablet 1 mg PO HS omega 9-dnw-axh-fish oil [Fish Oil] 1,000 (120-180) mg Capsule 1 cap PO QAM prochlorperazine maleate [Compazine] 10 mg tablet 10 mg PO TID PRN (Reason: Nausea And Vomiting) sodium bicarbonate 650 mg Tablet 1,950 mg PO TID insulin lispro [Humalog KwikPen Insulin] 100 unit/mL insulin pen 30 sliding scale dose SUBCUT AC duloxetine 60 mg capsule,delayed release(DR/EC) 60 mg PO QAM pregabalin 150 mg capsule 150 mg PO TID atorvastatin 80 mg Tablet 80 mg PO QAM gabapentin 300 mg Capsule 300 mg PO BID insulin degludec [Tresiba FlexTouch U-200] 200 unit/mL (3 mL) insulin pen 120 unit SUBCUT QAM hydralazine 10 mg Tablet 10 mg PO TID Medical Thc 1 dose PO UD PRN (Reason: ud) tramadol 50 mg tablet 50 mg PO Q6H PRN (Reason: pain, moderate) Qty: 30 0RF oxycodone 5 mg tablet 5 mg PO Q6H PRN (Reason: pain) Qty: 20 0RF sacubitril-valsartan [Entresto] 97-103 mg tablet 1 tab PO BID Referrals Referrals: Wiliam Garsia [Primary Care Provider] -
[2024-04-08 03:11] LABS: Basophils % (auto) 0.7 %; Eosinophils # (auto) 0.38 K/uL (0.00-0.50); Eosinophils % (auto) 2.5 %; Hemoglobin 13.9 g/dl (12.0-16.0); Immature Granulocytes # (auto) 0.05 K/uL (0.01-0.20); Immature Granulocytes % (auto) 0.3 %; Lymphocytes # (auto) 2.22 K/uL (1.20-3.40); Lymphocytes % (auto) 14.5 %; Mean Corpuscular Hemoglobin 30.8 pg (25.0-34.0); Mean Corpuscular Hgb Conc 34.8 g/dL (32.0-36.0); Mean Corpuscular Volume 88.5 fL (80.0-100.0); Mean Platelet Volume 10.9 fL (9.4-12.4); Monocytes # (auto) 0.94 K/uL (0.11-0.59); Monocytes % (auto) 6.1 %; Neutrophils # (auto) 11.61 K/uL (1.40-6.50); Neutrophils % (auto) 75.9 %; Platelet Count 304 K/uL (130-400); RDW Coefficient of Variation 14.2 % (11.5-14.5); RDW Standard Deviation 45.4 fL (36.4-46.3); Red Blood Count 4.52 M/uL (4.20-5.40)
[2024-04-08] MEDS: ONDANSETRON INJ 2 MG/ML 2 ML VIAL IV STA (03:17)
[2024-04-08] MEDS: dexAMETHasone**PF** 10 MG/ML VIAL IV ONE (03:17)
[2024-04-08] MEDS: MoRPHine SULFATE 4 MG/ML 1 ML CARP\\VIAL IV STA (03:17)
[2024-04-08 03:30] LABS: Alanine Aminotransferase 19 U/L (7-52); Albumin Globulin Ratio 1.2 (0.9-2); Alkaline Phosphatase 130 U/L (34-104); Anion Gap 10 (3-11); BUN Creatinine Ratio 18.9 (10-20); Bilirubin,Total 0.4 mg/dl (0.2-1.0); Blood Urea Nitrogen 41 mg/dl (6-23); Calcium 11.3 mg/dl (8.6-10.3); Carbon Dioxide 20 mmol/L (21-32); Chloride 104 mmol/L (98-107); Creatinine Clr Calc Pharmacy 34.2 ml/min; Globulin 3.4 gm/dl (2.5-4.0); Glucose 122 mg/dl (70-99(Fasting)); Sodium 134 mmol/L (136-145); Total Protein 7.4 gm/dl (6.0-8.3)
[2024-04-08] MEDS: LORazepam 1 MG/1 ML SYR ED Inj Use IV STA (04:00)
--- NOTE | 2024-04-08 04:50 | CT Scan Report ---
EXAM: CT cervical spine wo con CLINICAL HISTORY: None TECHNIQUE: Computed tomography of the cervical spine performed without intravenous contrast. Contiguous axial images were obtained from the skull base to T2, with sagittal and coronal reformatted images reconstructed from the axial data. CT scan was performed according to ALARA (as low as reasonable achievable). COMPARISON: None. FINDINGS: There is straightening of the normal cervical lordotic curvature. Status post anterior fusion of C4-C5 vertebral bodies, with screws and interconnecting rods in situ. The hardware appears intact and in appropriate position. Cervical vertebral bodies are normal in height and alignment, with no evidence of fracture or subluxation. Lateral masses of C1 are symmetrical, and the dens is intact. Prevertebral soft tissues are not widened. The remaining suprahyoid and infrahyoid soft tissues in the neck are unremarkable. C2-C3: No disc bulge, mass effect on the cord or neuroforaminal narrowing. C3-C4: No disc bulge, mass effect on the cord or neuroforaminal narrowing. C4-C5: Small disc osteophyte complexes causing mild thecal sac indentation without any significant spinal canal or neural foraminal narrowing. C5-C6: No disc bulge, mass effect on the cord or neuroforaminal narrowing. C6-C7: No disc bulge, mass effect on the cord or neuroforaminal narrowing. C7-T1: No disc bulge, mass effect on the cord or neuroforaminal narrowing. Thyroid gland shows enlarged right lobe with few hypodense lesions largest measuring 1cm. Suggested ultrasound correlation. IMPRESSION: 1. Status post anterior fusion of C4-C5 vertebral bodies with hardware in appropriate position 2. Small disc osteophyte complexes at C4-C5 level with mild thecal sac indentation, without significant canal or foraminal stenosis 3. Straightening of cervical lordosis Electronically signed by Latrell French 04-08-2024 04:50 AM
[2024-04-08] MEDS ORDERED: oxyCODONE HCL IR 5 MG TAB (IMMEDIATE RELEASE) PO PRN (05:26)
[2024-04-08] MEDS: METOPROLOL TARTRATE 1 MG/ML VIAL IV STA (05:37)
--- NOTE | 2024-04-08 05:38 | History & Physical Report ---
Date of Service April 08, 2024 Assessment & Plan (1) Hypercalcemia: Plan: Hypercalcemia History hyperparathyroidism as per records Recent hypercalcemia outpatient lab workup ARF on CKD secondary to illness History chronic metabolic acidosis Hypertensive urgency contributing/secondary to neck pain Recent neck surgery hyperlipidemia, on statin Rx DM 2 insulin requiring, suboptimal control as of recent hemoglobin A1c of 9.16 January 2024 past tobacco abuse Medical telemetry Gentle IVF given mild congestion on CXR Baseline UA Nephrology consult Re: Recurrent hypercalcemia, ARF on CKD Hold diuretics until patient seen by Nephrology Analgesia Titrate home BP meds Orthopedic spine consult Re: Neck pain, recent surgery Basal bolus insulin, ISS BG goal 1 10-1 40, carb count coverage DVT prophylaxis. SCDs re: possible procedure Full code Text document was generated using [employer] voice recognition software. It may contain grammatical or spelling errors. Kindly contact undersigned for clarification of any documentation item in question. History of Present Illness Chief Complaint: Neck pain Primary Care Provider: Wiliam Garsia History obtained from patient and records. Medical history significant for hypertension, hyperlipidemia, DM 2 insulin requiring, CRI (baseline creatinine 1-7-2), chronic metabolic acidosis, hyperparathyroidism as per records, GERD, gout, cervical spine stenosis status post recent surgery (03/2024), past tobacco abuse. Recent overnight confinement under Orthopedics spine service for cervical spine stenosis status post cervical discectomy/fusion. Unremarkable postop course. Last week, patient had sudden onset of achy posterior neck pain going down her right arm. No trauma or unusual exertion. Denies headache, chest pain, and SOB symptoms. Right arm weak and numb from pain. No fever, no chills. Patient consulted ER last night. CT cervical spine showed 1. Status post anterior fusion of C4-C5 vertebral bodies with hardware in appropriate position 2. Small disc osteophyte complexes at C4-C5 level with mild thecal sac indentation, without significant canal or foraminal stenosis 3. Straightening of cervical lordosis Patient discharged home with instructions to follow-up with spine surgeon but returned to ER as soon as pain became uncontrolled while walking to the parking lot. Highest SBP of 190s documented at the ER. 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 Allergies Allergy/AdvReac Type Severity Reaction Status Date / Time bee venom protein (honey bee) Allergy Intermediate RED, SHORT Verified 03/18/24 06:04 OF BREATH hydralazine AdvReac Lower Verified 04/08/24 06:49 Extremity Edema Home Medications Medication Instructions Recorded Confirmed Type allopurinol 300 mg tablet 300 mg PO QAM 01/24/24 04/08/24 History amlodipine 10 mg tablet 10 mg PO QAM 01/24/24 04/08/24 History aspirin 325 mg tablet 325 mg PO QAM 01/24/24 04/08/24 History baclofen 10 mg tablet 10 mg PO TID 01/24/24 04/08/24 History buspirone 15 mg tablet 15 mg PO QAM 01/24/24 04/08/24 History carvedilol 25 mg tablet (Coreg) 50 mg PO BID 01/24/24 04/08/24 History duloxetine 60 mg capsule,delayed 60 mg PO QAM 01/24/24 04/08/24 History release eszopiclone 1 mg tablet (Lunesta) 1 mg PO HS 01/24/24 04/08/24 History furosemide 40 mg tablet (Lasix) 40 mg PO UD 01/24/24 04/08/24 History insulin lispro 100 unit/mL 30 sliding scale dose subcut AC 01/24/24 04/08/24 History subcutaneous pen (Humalog KwikPen (U-100) Insulin) omega 5-hel-abb-fish oil 1,000 mg 1 cap PO QAM 01/24/24 04/08/24 History (120 mg-180 mg) capsule (Fish Oil) pantoprazole 40 mg tablet,delayed 40 mg PO QAM 01/24/24 04/08/24 History release (Protonix) pregabalin 150 mg capsule 150 mg PO TID 01/24/24 04/08/24 History prochlorperazine maleate 10 mg 10 mg PO TID PRN Nausea And 01/24/24 04/08/24 History tablet (Compazine) Vomiting sodium bicarbonate 650 mg tablet 1,950 mg PO TID 01/24/24 04/08/24 History Medical Thc 1 dose PO UD PRN ud 03/06/24 04/08/24 History atorvastatin 80 mg tablet 80 mg PO QAM 03/06/24 04/08/24 History insulin degludec 200 unit/mL (3 120 unit subcut QAM 03/06/24 04/08/24 History mL) subcutaneous pen (Tresiba FlexTouch U-200 insulin) sacubitril 97 mg-valsartan 103 mg 1 tab PO BID 03/18/24 04/08/24 History tablet (Entresto) tramadol 50 mg tablet 50 mg PO Q6H PRN pain, moderate 03/18/24 04/08/24 Rx #30 tabs Past Med/Surg History Problem List (Updated 04/08/24 @ 11:20 by Lazaro Roth MD) Asymptomatic hypertensive urgency Intractable pain (Acute) Acute neck pain (Acute) Neck pain (Acute) History of congestive heart failure Cervical stenosis of spinal canal Acute kidney injury superimposed on CKD (Acute) Depression with anxiety Hyperparathyroidism 05/20/22 Chronic renal disease, stage 3, moderately decreased glomerular filtration rate (GFR) between 30-59 mL/min/1.73 square meter Diabetic nephropathy associated with type 2 diabetes mellitus Diabetes type 2, uncontrolled Diabetic peripheral neuropathy associated with type 2 diabetes mellitus 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/15/19 Dysesthesia 03/15/19 Dyslipidemia Hypercalcemia 03/15/19 Hypertension Nephrolithiasis Vitamin D deficiency Acidosis, metabolic 10/16/20 Anemia of chronic disease GERD (gastroesophageal reflux disease) Medical History Cervical disc herniation MRI 10/2023, limited rom of neck Anemia of chronic disease has required blood transfusions in past-last transfusion last year Dyslipidemia Hypertension controlled, stable per pt History of nephrolithiasis x 1, passsed on own Diabetic peripheral neuropathy GERD (gastroesophageal reflux disease) controlled, stable per pt Diabetes mellitus, type 2 IDDM Chronic kidney disease, stage [address] dwight colon at [facility] Hyperparathyroidism Depression with anxiety History of endometriosis History of renal dialysis (04/2017) - [facility] - ARF 2/2 DKA Hx of Clostridium difficile infection 2012 - treated, no problems since Chronic nausea Surgical History History of esophagogastroduodenoscopy (EGD) Hx of colonoscopy History of open reduction and internal fixation (ORIF) procedure (2018) left fibula Hx of tracheostomy (2013) R/T COMPLICATIONS AFTER ILEOSTOMY REVERSAL SURGERY IN 2011; HAS SINCE BEEN REVERSED History of rotator cuff surgery (2018) RT History of lumbar spinal fusion (2006) History of reversal of ileostomy (2012) History of ileostomy (2012) Status post cholecystectomy (2017) "cholelithiasis" Status post partial colectomy (2012) "for C diff colitis" Family History Mother Diabetes Other No family history of adverse response to anesthesia Social History Smoking Status: Never smoker Tobacco Type: Cigarettes Cigarettes Per Day: 5; Second Hand Exposure: No; Do You Dip or Chew Tobacco: No; Hx Alcohol Use: No Hx Substance Use: No Preferred Language: [place] Communication Ability: Effective Market Research Associate Required: No Beliefs That Will Affect Care: None marital status: Current Living Situation: Spouse Feels Safe at Home: Yes Assistive Devices: Walker Review of Systems Review of Systems: As per HPI, all other systems reviewed and negative Physical Exam Physical Exam: GENERAL: Slightly uncomfortable, pleasant, no respiratory distress SKIN: Normal color, warm HEENT: [place] palpebral conjunctivae, no ptosis, dry buccal mucosa NECK : Short neck, Limited range of motion, right-sided cervical tenderness CHEST : Decreased breath sounds, no tenderness HEART : RRR, no obvious murmurs ABDOMEN: Some distention, nontender EXTREMITIES : Minimal LE swelling, no LE tenderness, no other conspicuous deformities noted NEUROLOGIC : Coherent, no facial asymmetry, no other gross focality Results & Data Results & Data Vital Signs (Past 12 Hours) Vital Signs Temp Pulse Pulse Resp BP BP Pulse Ox 04/08/24 05:00 89 19 184/101 H 95 04/08/24 04:30 85 20 162/111 H 95 04/08/24 04:00 84 18 171/114 H 95 04/08/24 03:59 85 18 186/105 H 96 04/08/24 03:31 82 15 138/58 L 94 04/08/24 03:00 88 19 190/104 H 95 04/08/24 03:00 76 16 190/104 H 96 04/08/24 02:56 87 17 168/101 H 95 04/08/24 02:30 85 17 187/114 H 92 04/08/24 02:18 88 04/08/24 01:39 36.6 C 95 H 18 143/88 H 97 04/08/24 01:36 97 H 20 193/126 H 97 O2 Del Method 04/08/24 05:00 Room Air 04/08/24 04:30 Room Air 04/08/24 04:00 Room Air 04/08/24 03:59 Room Air 04/08/24 03:31 Room Air 04/08/24 03:00 Room Air 04/08/24 03:00 Room Air 04/08/24 02:56 Room Air 04/08/24 02:30 Room Air 04/08/24 02:18 04/08/24 01:39 Room Air 04/08/24 01:36 Room Air Laboratory Results Laboratory Results WBC 15.30 K/ul (4.8-10.8) H 04/08/24 02:55 RBC 4.52 M/uL (4.20-5.40) 04/08/24 02:55 Hgb 13.9 g/dl (12.0-16.0) 04/08/24 02:55 Hct 40.0 % (37.0-47.0) 04/08/24 02:55 MCV 88.5 fL (80.0-100.0) 04/08/24 02:55 MCH 30.8 pg (25.0-34.0) 04/08/24 02:55 MCHC 34.8 g/dL (32.0-36.0) 04/08/24 02:55 RDW Std Deviation 45.4 fL (36.4-46.3) 04/08/24 02:55 RDW Coeff of Chidi 14.2 % (11.5-14.5) 04/08/24 02:55 Plt Count 304 K/uL (130-400) 04/08/24 02:55 MPV 10.9 fL (9.4-12.4) 04/08/24 02:55 Immature Gran % (Auto) 0.3 % 04/08/24 02:55 Neut % (Auto) 75.9 % 04/08/24 02:55 Lymph % (Auto) 14.5 % 04/08/24 02:55 [place] % (Auto) 6.1 % 04/08/24 02:55 Eos % (Auto) 2.5 % 04/08/24 02:55 Baso % (Auto) 0.7 % 04/08/24 02:55 Neut # (Auto) 11.61 K/uL (1.40-6.50) H 04/08/24 02:55 Lymph # (Auto) 2.22 K/uL (1.20-3.40) 04/08/24 02:55 [place] # (Auto) 0.94 K/uL (0.11-0.59) H 04/08/24 02:55 Eos # (Auto) 0.38 K/uL (0.00-0.50) 04/08/24 02:55 Baso # (Auto) 0.10 K/uL (0.00-0.20) 04/08/24 02:55 Immature Gran # (Auto) 0.05 K/uL (0.01-0.20) 04/08/24 02:55 Sodium 134 mmol/L (136-145) L 04/08/24 02:55 Potassium 5.0 mmol/L (3.5-5.1) 04/08/24 04:04 Chloride 104 mmol/L (98-107) 04/08/24 02:55 Carbon Dioxide 20 mmol/L (21-32) L 04/08/24 02:55 Anion Gap 10 (3-11) 04/08/24 02:55 BUN 41 mg/dl (6-23) H 04/08/24 02:55 Creatinine 2.17 mg/dl (0.6-1.2) H 04/08/24 02:55 Est Cr Clr Drug Dosing 34.2 ml/min 04/08/24 02:55 eGFR 27.09 04/08/24 02:55 BUN/Creatinine Ratio 18.9 (10-20) 04/08/24 02:55 Glucose 122 mg/dl (70-99(Fasting)) H 04/08/24 02:55 Calcium 11.3 mg/dl (8.6-10.3) H 04/08/24 02:55 Total Bilirubin 0.4 mg/dl (0.2-1.0) 04/08/24 02:55 AST 20 U/L (13-39) 04/08/24 04:04 ALT 19 U/L (7-52) 04/08/24 02:55 Alkaline Phosphatase 130 U/L (34-104) H 04/08/24 02:55 Total Protein 7.4 gm/dl (6.0-8.3) 04/08/24 02:55 Albumin 4.0 gm/dl (3.4-5.0) 04/08/24 02:55 Globulin 3.4 gm/dl (2.5-4.0) 04/08/24 02:55 Albumin/Globulin Ratio 1.2 (0.9-2) 04/08/24 02:[address] 04/08/24 02:23 EXAM: CT cervical spine wo con CLINICAL HISTORY: None TECHNIQUE: Computed tomography of the cervical spine performed without intravenous contrast. Contiguous axial images were obtained from the skull base to T2, with sagittal and coronal reformatted images reconstructed from the axial data. CT scan was performed according to ALARA (as low as reasonable achievable). COMPARISON: None. FINDINGS: There is straightening of the normal cervical lordotic curvature. Status post anterior fusion of C4-C5 vertebral bodies, with screws and interconnecting rods in situ. The hardware appears intact and in appropriate position. Cervical vertebral bodies are normal in height and alignment, with no evidence of fracture or subluxation. Lateral masses of C1 are symmetrical, and the dens is intact. Prevertebral soft tissues are not widened. The remaining suprahyoid and infrahyoid soft tissues in the neck are unremarkable. C2-C3: No disc bulge, mass effect on the cord or neuroforaminal narrowing. C3-C4: No disc bulge, mass effect on the cord or neuroforaminal narrowing. C4-C5: Small disc osteophyte complexes causing mild thecal sac indentation without any significant spinal canal or neural foraminal narrowing. C5-C6: No disc bulge, mass effect on the cord or neuroforaminal narrowing. C6-C7: No disc bulge, mass effect on the cord or neuroforaminal narrowing. C7-T1: No disc bulge, mass effect on the cord or neuroforaminal narrowing. Thyroid gland shows enlarged right lobe with few hypodense lesions largest measuring 1cm. Suggested ultrasound correlation. IMPRESSION: 1. Status post anterior fusion of C4-C5 vertebral bodies with hardware in appropriate position 2. Small disc osteophyte complexes at C4-C5 level with mild thecal sac indentation, without significant canal or foraminal stenosis 3. Straightening of cervical lordosis Electronically signed by Latrell French 04-08-2024 04:50 AM
[2024-04-08 05:53] LABS: Magnesium 1.9 mg/dl (1.7-2.4); Phosphorus 3.8 mg/dl (2.5-4.9)
[2024-04-08] MEDS ORDERED: GLUCAGON FOR INJ 1 MG VIAL SQ PRN (06:28)
[2024-04-08] MEDS ORDERED: CARBOHYDRATES FOR HYPOGLYCEMIA PO PRN (06:28)
[2024-04-08] MEDS ORDERED: DEXTROSE 50% 50 ML SYRINGE IV PRN (06:28)
[2024-04-08] MEDS ORDERED: GLUCOSE 40% GEL 15 GM TUBE PO PRN (06:28)
[2024-04-08] MEDS ORDERED: GLUCOSE 10 TAB/TUBE PO PRN (06:28)
[2024-04-08] MEDS: SODIUM BICARB 8.4% INJ 50 MEQ/50 ML SYR IV STA (06:32)
[2024-04-08] MEDS: SODIUM CHLORIDE 0.9% 1,000 ML IV ONE (06:54)
--- NOTE | 2024-04-08 07:18 | XRay Report ---
EXAM: XR chest 1V portable CLINICAL HISTORY: RENAL FAILURE. TECHNIQUE: An X-ray image of the chest is obtained in AP projection. COMPARISON: with the prior study dated 01/23/2024. FINDINGS: Pulmonary Parenchyma: Lungs are clear bilaterally. No evidence of consolidation, collapse, or focal opacities. No pulmonary nodules are identified. No evidence of pleural effusion or pleural thickening. Heart and Mediastinum: Heart size and shape are normal. A still noted mild hilar vascular congestion. No mediastinal widening or masses. No hilar or mediastinal lymphadenopathy. Bony Thorax: The bony thorax appears intact without fractures or deformities. Soft Tissues: Soft tissues overlying the chest wall are unremarkable. IMPRESSION: 1. A still noted mild hilar likely vascular congestion. 2. No acute cardiopulmonary abnormalities are identified. 3. No interval change since the prior study. Electronically signed by Lj Olson 04-08-2024 07:18 AM
[2024-04-08] MEDS: amLODIPine BESYLATE 5 MG TAB PO ONE (07:33)
[2024-04-08] MEDS: HYDROmorphone INJ 1 MG/ML SYRINGE IV PRN ×2 (07:35→16:43)
[2024-04-08] MEDS: tiZANidine HCL 4 MG TABLET PO STA (08:13)
[2024-04-08] MEDS: carvediloL 25 MG TAB PO SCH (09:32)
[2024-04-08] MEDS: ATORVASTATIN 40 MG TAB PO SCH (09:32)
[2024-04-08] MEDS: DULoxetine HCL 60 MG CAP PO SCH (09:33)
[2024-04-08] MEDS: busPIRone 15 MG TAB PO SCH (09:33)
[2024-04-08] MEDS: BACLOFEN 10 MG TAB PO SCH (09:33)
[2024-04-08] MEDS: PANTOprazole 40 MG TAB PO SCH (09:33)
[2024-04-08] MEDS: allopurinoL 300 MG TAB PO SCH (09:33)
[2024-04-08] MEDS: INSULIN ASPART PER UNIT CHARGE SC SCH (09:53)
[2024-04-08] MEDS: LANTUS PER UNIT CHARGE SQ SCH (09:53)
[2024-04-08] MEDS: SODIUM BICARBONATE 650 MG TAB PO SCH (09:54)
[2024-04-08] MEDS ORDERED: PHARMACY GLYCEMIC MGMT CONSULT PRN (09:55)
--- NOTE | 2024-04-08 10:51 | Nephrology Consultation ---
Date of Consultation patient seen on April 09, 2024 Assessment & Plan (1) Hypercalcemia: off and on for last 5 years at least both as inpt and outpt. with high PTH but that could be from CKD. never severely elevated as max is 11.5. Would be reasonable to rule of for superimposed mild Primary hyperparathyroidism and/or FHH. would need 24 hr urine and parathyroid scan for this. 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 quite possible she has already had theses tests but I could not see it being done. Give 2000 ml NS over next 20 hrs. In the past Ca has normalized after iV fluids. (2) Acute kidney injury superimposed on CKD: baseline creat 1.6. But had as high as 2.6 on 03/27 done as outpt. Continue to Hold Chlorthalidone and Jardiance and Entresto overnight. Will hydrate her more with 2000 ml NS. Creat is down to 2 so slightly better than 03/27 but not quite baseline. Vital signs are good and other than pain she is fine. Avoid NSAIDS. History of Present Illness Reason for Consultation: Hypercalcemia, OK on CKD Attending Physician: Yeyo Ricardo MD History of Present Illness 48/F follows with Dr Lucas. patient has CKD 3B/4 with labile creat. Would says baseline more like 1.6 but was recently higher as outpt to 2.6 after recent surgery. following that Chlorthalidone and jardiance were on hold. She has h/o Mild Hypercalcemia off and on for more than 5 years--Ca ranges to the max of 11.5 to totally normal. PTH is normally elevated--related with CKD ? She had surgery by Dr. Andrade on March 18 of this month she was doing well until Haja presented to ER for severe neck pain radiating down the right arm. She states this pain is different than prior to her surgery. She states she was doing well until a few days ago. She was seen here earlier and given some pain meds with no relief of symptoms. Patient denies numbness, tingling, arm weakness, fever, chills, new trauma to the area. Overnight got only 1000 ml NS . Labs today about same as yesterday. ROS--+ve for neck ain. otherwise negative Physical Exam Physical Exam: GENERAL: pleasant, no respiratory distress SKIN: Normal color, warm HEENT: dry buccal mucosa NECK : Short neck, Limited range of motion, right-sided cervical tenderness CHEST : Decreased breath sounds, no tenderness HEART : RRR, no obvious murmurs ABDOMEN: Some distention, nontender EXTREMITIES : No edema Allergies Allergy/AdvReac Type Severity Reaction Status Date / Time bee venom protein (honey bee) Allergy Intermediate RED, SHORT Verified 03/18/24 06:04 OF BREATH hydralazine AdvReac Lower Verified 04/08/24 06:49 Extremity Edema Home Medications Medication Instructions Recorded Confirmed Type allopurinol 300 mg tablet 300 mg PO QAM 01/24/24 04/08/24 History amlodipine 10 mg tablet 10 mg PO QAM 01/24/24 04/08/24 History aspirin 325 mg tablet 325 mg PO QAM 01/24/24 04/08/24 History baclofen 10 mg tablet 10 mg PO TID 01/24/24 04/08/24 History buspirone 15 mg tablet 15 mg PO QAM 01/24/24 04/08/24 History carvedilol 25 mg tablet (Coreg) 50 mg PO BID 01/24/24 04/08/24 History duloxetine 60 mg capsule,delayed 60 mg PO QAM 01/24/24 04/08/24 History release eszopiclone 1 mg tablet (Lunesta) 1 mg PO HS 01/24/24 04/08/24 History furosemide 40 mg tablet (Lasix) 40 mg PO UD 01/24/24 04/08/24 History insulin lispro 100 unit/mL 30 sliding scale dose subcut AC 01/24/24 04/08/24 History subcutaneous pen (Humalog KwikPen (U-100) Insulin) omega 1-ykj-rpy-fish oil 1,000 mg 1 cap PO QAM 01/24/24 04/08/24 History (120 mg-180 mg) capsule (Fish Oil) pantoprazole 40 mg tablet,delayed 40 mg PO QAM 01/24/24 04/08/24 History release (Protonix) pregabalin 150 mg capsule 150 mg PO TID 01/24/24 04/08/24 History prochlorperazine maleate 10 mg 10 mg PO TID PRN Nausea And 01/24/24 04/08/24 History tablet (Compazine) Vomiting sodium bicarbonate 650 mg tablet 1,950 mg PO TID 01/24/24 04/08/24 History Medical Thc 1 dose PO UD PRN ud 03/06/24 04/08/24 History atorvastatin 80 mg tablet 80 mg PO QAM 03/06/24 04/08/24 History insulin degludec 200 unit/mL (3 120 unit subcut QAM 03/06/24 04/08/24 History mL) subcutaneous pen (Tresiba FlexTouch U-200 insulin) sacubitril 97 mg-valsartan 103 mg 1 tab PO BID 03/18/24 04/08/24 History tablet (Entresto) tramadol 50 mg tablet 50 mg PO Q6H PRN pain, moderate 03/18/24 04/08/24 Rx #30 tabs Patient History Medical History Cervical disc herniation MRI 10/2023, limited rom of neck Anemia of chronic disease has required blood transfusions in past-last transfusion last year Dyslipidemia Hypertension controlled, stable per pt History of nephrolithiasis x 1, passsed on own Diabetic peripheral neuropathy GERD (gastroesophageal reflux disease) controlled, stable per pt Diabetes mellitus, type 2 IDDM Chronic kidney disease, stage [address] dwight colon at [facility] Hyperparathyroidism Depression with anxiety History of endometriosis History of renal dialysis (04/2017) - [facility] - ARF 2/2 DKA Hx of Clostridium difficile infection 2012 - treated, no problems since Chronic nausea Surgical History History of esophagogastroduodenoscopy (EGD) Hx of colonoscopy History of open reduction and internal fixation (ORIF) procedure (2018) left fibula Hx of tracheostomy (2013) R/T COMPLICATIONS AFTER ILEOSTOMY REVERSAL SURGERY IN 2011; HAS SINCE BEEN REVERSED History of rotator cuff surgery (2017) RT History of lumbar spinal fusion (2006) History of reversal of ileostomy (2012) History of ileostomy (2012) Status post cholecystectomy (2017) "cholelithiasis" Status post partial colectomy (2012) "for C diff colitis" Family History Mother Diabetes Other No family history of adverse response to anesthesia Social History Smoking Status: Former smoker Tobacco Type: Cigarettes Cigarettes Per Day: 5; Second Hand Exposure: No; Do You Dip or Chew Tobacco: No; Hx Alcohol Use: No Hx Substance Use: No Preferred Language: [place] Communication Ability: Effective Upper Trimmer Required: No Beliefs That Will Affect Care: None marital status: Current Living Situation: Spouse Feels Safe at Home: Yes Assistive Devices: Glasses Results & Data Vital Signs (Past 12 Hours) Vital Signs Temp Pulse Pulse Resp BP BP Pulse Ox 04/08/24 10:36 89 13 04/08/24 10:30 138/79 04/08/24 10:21 89 21 04/08/24 10:00 88 21 93 04/08/24 09:30 167/98 H 04/08/24 09:30 86 16 95 04/08/24 09:06 93 H 21 04/08/24 08:39 84 16 94 04/08/24 08:30 187/105 H 04/08/24 08:30 187/105 H 04/08/24 08:24 83 16 93 04/08/24 08:06 84 19 94 04/08/24 08:00 159/93 H 04/08/24 07:51 91 H 16 94 04/08/24 07:33 92 H 18 95 04/08/24 07:33 196/114 H 04/08/24 07:01 81 19 159/88 H 93 04/08/24 06:57 82 04/08/24 06:36 80 04/08/24 06:30 79 19 167/98 H 96 04/08/24 06:15 80 176/111 H 04/08/24 06:15 80 19 176/111 H 94 04/08/24 05:37 194/131 H 04/08/24 05:37 83 194/131 H 04/08/24 05:30 85 20 194/114 H 93 04/08/24 05:00 89 19 184/101 H 95 04/08/24 04:30 85 20 162/111 H 95 04/08/24 04:00 84 18 171/114 H 95 04/08/24 03:59 85 18 186/105 H 96 04/08/24 03:31 82 15 138/58 L 94 04/08/24 03:00 88 19 190/104 H 95 04/08/24 03:00 76 16 190/104 H 96 04/08/24 02:56 87 17 168/101 H 95 04/08/24 02:30 85 17 187/114 H 92 04/08/24 02:18 88 04/08/24 01:39 36.6 C 95 H 18 143/88 H 97 04/08/24 01:36 97 H 20 193/126 H 97 O2 Del Method 04/08/24 10:36 04/08/24 10:30 04/08/24 10:21 04/08/24 10:00 04/08/24 09:30 04/08/24 09:30 04/08/24 09:06 04/08/24 08:39 04/08/24 08:30 04/08/24 08:30 04/08/24 08:24 04/08/24 08:06 04/08/24 08:00 04/08/24 07:51 04/08/24 07:33 04/08/24 07:33 04/08/24 07:01 Room Air 04/08/24 06:57 04/08/24 06:36 04/08/24 06:30 Room Air 04/08/24 06:15 04/08/24 06:15 Room Air 04/08/24 05:37 04/08/24 05:37 04/08/24 05:30 Room Air 04/08/24 05:00 Room Air 04/08/24 04:30 Room Air 04/08/24 04:00 Room Air 04/08/24 03:59 Room Air 04/08/24 03:31 Room Air 04/08/24 03:00 Room Air 04/08/24 03:00 Room Air 04/08/24 02:56 Room Air 04/08/24 02:30 Room Air 04/08/24 02:18 04/08/24 01:39 Room Air 04/08/24 01:36 Room Air Laboratory Results reviewed Diagnostic Findings Reviewed PG Care Time/CCT Total # of Minutes Spent Total Time Spent with Patient: Total time spent is greater than 50% in coordination of care (as documented) at patient's floor/unit and/or counseling patient: 61 Coding Level of Care Code 14434 IN/OBS CONSULT LVL 4,60M Diagnoses Hypercalcemia E83.52 Acute kidney injury superimposed on CKD N17.9; N18.9
[2024-04-08] MEDS: oxyCODONE HCL IR 5 MG TAB (IMMEDIATE RELEASE) PO PRN (12:52)
--- NOTE | 2024-04-08 13:03 | Ultrasound Report ---
Clinical history: Nodules Technique: Thyroid sonography was performed Findings: The right lobe of the thyroid measures 5 x 2.5 x 2.3 cm. The left lobe of the thyroid measures 4.5 x 1.5 x 1.5 cm. The thyroid parenchyma is diffusely heterogeneous There is a 1.5 x 1.5 x 1 cm hyperechoic solid nodule in the right thyroid lobe (TR3). There is a 1.6 x 1.5 x 1.2 cm complex cyst in the mid to lower right thyroid lobe (TR3). There is an adjacent 1.2 x 1 x 0.8 cm mildly complex cyst (TR3). There is a 1 cm cyst in the upper right thyroid lobe (TR1). There is also a 1.9 x 1.4 x 1.4 cm mixed solid and cystic nodule in the right thyroid lobe (TR3). No definite calcifications are seen within these lesions There is a 1.5 cm heterogeneous nodule with an 8 mm cystic component in the left thyroid lobe (TR2). There is a 1.3 x 0.9 cm mixed solid and cystic nodule in the left thyroid lobe with an adjacent 9 x 5 mm mixed solid and cystic nodule (TR3). There is also a 6 x 4 mm cyst with some mural nodularity in the left thyroid lobe (TR2) Impression: Multiple thyroid nodules and complex cysts, likely benign but indeterminate in nature. A follow-up ultrasound could be obtained in 6 months to ensure stability Electronically signed by Fidencio Vasquez 04-08-2024 13:03 PM
[2024-04-08 13:20] LABS: Base Excess VBG -4.2 mEq/L; HCO3 VBG 21 mmol/L; Oxygen Saturation VBG 91.6 %; PCO2 VBG 38 mmHg (38-50); PO2 VBG 63 mmHg; pH VBG 7.35 (7.36-7.41)
[2024-04-08 13:40] LABS: Calcium 11.4 mg/dl (8.6-10.3); Creatinine Clr Calc Pharmacy 37.1 ml/min; Potassium 5.1 mmol/L (3.5-5.1)
--- NOTE | 2024-04-08 14:43 | Pharmacy Report ---
Pharmacy Glycemic Short Note 2 - Date of Service April 08, 2024 - Glycemic Short BSG Results (Last 24 hours): 04/08/24 04/08/24 04/08/24 02:55 08:57 12:52 Glucose 122 H 297 H POC Glucose 209 H 04/08/24 12:55 Glucose POC Glucose 265 H OUTPATIENT ANTIDIABETIC REGIMEN: * Tresiba 120 units SQ QAM * Humalog 30 units SQ AC HbA1c: 9.8% on 01-24-24 ASSESSMENT: * 48 year old patient presented to the ED with severe neck pain radiating down the right arm. Pharmacy was consulted for glycemic management while she is admitted. * BSG was 209 on admit. Lantus 60 units was given in the ED and a bolus insulin scale was started by the provider. * BSG myriam to 265mg/dL at lunch and patient received a dose of iv dexamethasone so the bolus insulin parameters were tightened to a weight based dosing with a stress of 3. A lantus scale (20-60 units) was ordered for HS PLAN FOR INPATIENT GLYCEMIC CONTROL: * Hold outpatient diabetes medications * Basal insulin * Lantus 60 units SQ QAM and Lantus scale at HS (if BSG < 140--20 units, BSG 140-200--40 units, BSG > 200--60 units) * Bolus insulin * NovoLog per scale ACHS or Q6hrs while NPO * Goal Range: Low 110 mg/dL - High 140 mg/dL * Correction Factor: 15 mg/dL/unit * Nutritional / Prandial insulin per carb ratio of 1 unit per 6 grams CHO consumed
--- NOTE | 2024-04-08 15:06 | Magnetic Resonance Report ---
MRI OF THE CERVICAL SPINE WITHOUT CONTRAST CLINICAL HISTORY: Severe neck pain with radiculopathy right sided. COMPARISON: MRI of the cervical spine November 02, 2023. Cervical spine CT April 08, 2024. TECHNIQUE: Utilizing a 1.5 Sharron magnet and dedicated coil, multiplanar, multiecho imaging of the ce rvical spine was performed without IV contrast. FINDINGS: There are postoperative findings consistent with C4-C5 anterior discectomy and fusion. Susceptibility artifact from the surgical hardware compromises visualization of the adjacent tissues. Alignment of the cervical spine is anatomic. Cervical cord signal and caliber are normal. No intracanalicular mass or fluid collection is identified. No cervical spine fractures identified. Mild prevertebral edema i s present. This extends from the C2-C6 levels. This is likely postsurgical. No well-defined fluid col lection is identified. This exam is moderately compromised by artifact. C2-C3: The central canal and neural foramen are patent C3-C4: There is a tiny left paracentral disc protrusion. This is unchanged. This effaces the ventral thecal sac. There is no significant central canal stenosis. Mild to moderate right and mild left deon ral foraminal stenosis is present. C4-C5: Anterior discectomy and fusion is present. No significant central canal stenosis is noted. Ev aluation of the neural foramen is essentially nondiagnostic due to artifact from the surgical hardwar e. Apparent right neural foraminal stenosis is noted. This may be artifactual. C5-C6: The central canal is patent. There is mild to moderate bilateral neural foraminal stenosis. C6-C7: The central canal and neural foramen are patent. C7-T1: The central canal and neural foramen are patent. IMPRESSION: 1. Status post C4-C5 anterior discectomy and fusion. Mild prevertebral edema which is likely postsurg ical. 2. Exam moderately compromised by artifact, as described above. Normal cervical cord signal and calib er. No severe central canal stenosis. 3. Multilevel neural foraminal stenosis, as detailed above. Apparent narrowing of the right C4-C5 deon ral foramen. This may be artifactual. ACT 112: Negative or not required by law. Electronically signed by: Usman White M.D. 04/08/2024 3:05 PM
--- NOTE | 2024-04-08 15:07 | Communication Note ---
Date of Service: April 08, 2024 This note does not reflect a billable service as pt was admitted after 00:00 on 04/08/34. Pt evaluated in the ER as a bed hold in room A11B. She complains of Severe lower neck pain that radiates to the R shoulder/bicep region with some numbness/tingling. She states sx started on 04/03 w/o known cause/injury. Recent hx of C4-5 ACDF on 03/18. Had a recent follow up and imaging/hardware looked good per patient. Her current symptoms do not mimic that in which prompted her surgery as that was all related to L sided radicular sx. She has been taking tylenol and baclofen without relief. The only thing that gives her relief is medication through her IV. --CT Neck: 1. Status post anterior fusion of C4-C5 vertebral bodies with hardware in appropriate position 2. Small disc osteophyte complexes at C4-C5 level with mild thecal sac indentation, without significant canal or foraminal stenosis 3. Straightening of cervical lordosis A/P 48 yr old F who a significant PMH of Uncontrolled T2DM, diabetic polyneuropathy, CKD-3b, HTN, hx of Cdiff colitis s/p colectomy, hx of tobacco abuse #Neck/R shoulder pain Pt is S/P ACDF C4-C5 on 03/18/[address] Andrade Hardware looks good on images, pain is different then previous distribution Obtain Cervical MRI Received IV dexamethasone in ER continue oxy for moderate pain, IV dilaudid for severe pain Consult Dr. Andrade Depending on Cervical MRI consider pain management consult # Uncontrolled T2Dm a1c 9.8 on 01/2024 Glycemic pharmacy consult continue insulin per protocol #Acute on chronic CKD-3 #Hypercalcemia #Chronic metabolic acidosis IVF, bicarb, nephrology consulted Ca 11.4, PTH 257.1 nephro checking parathyroid hormone, vit D, TSH #HTN #Chronic HFpEF Bp elevated likely 2/2 pain on amlodipine, coreg, hold lasix/entresto #R Thyroid Nodule: noted on imaging, US recommended -thyroid US:Multiple thyroid nodules and complex cysts, likely benign but indeterminate in nature. A follow-up ultrasound could be obtained in 6 months to ensure stability DVT ppx: SCDS for now until seen by ortho spine FULL CODE PCP: Ady Dispo:admit to med [facility] Pt was seen and examined in collaboration with Dr. Ricardo, please see addendum Attending addendum: Patient was seen and examined at bedside as a follow-up of neck pain with RUE radicular symptoms, OK over CKD and hypercalcemia. Continue to hold Entresto and Lasix. Add prn BP medicaiton. Control pain. Nephrology plans to evaluate tomorrow. Calcium level seems to be elevated and around her baseline. Orthospine consulted given recent C-spine surgery and current complaint of neck pain and RUE symptoms. On exam: Patient on room air, no BLE edema. Rest of the examination as above. Time spent: 10 minutes I have seen and examined the patient and have discussed the case with the provider above. I agree with the assessment and plan as stated.
[2024-04-08 21:30] LABS: Appearance Urine Clear (Clear); Bacteria Urine Automated None Seen (None Seen); Bilirubin Urine Negative (Negative); Blood Urine Negative (Negative); Cast Urine Automated 0-2 /lpf (0-2); Color Urine Yellow; Epithelial Cell Urine Auto 0-2 /hpf (0-2); Glucose Urine UA 1+ (Negative); Ketones Urine Negative (Negative); Leukocyte Esterase Urine Negative (Negative); Nitrite Urine Negative (Negative); Protein Urine 3+ (Negative); RBC Urine Automated 0-2 /hpf (0-2); Specific Gravity Urine 1.019 (1.000-1.030); Urobilinogen Urine Negative (Negative); WBC Urine Automated 0-5 /hpf (0-5); pH Urine 7.5 (4.5-7.5)
[2024-04-08] MEDS: DICLOFENAC SOD 1% GEL 100 GM TUBE EXT SCH (22:16)
[2024-04-08] MEDS: LANTUS PER UNIT CHARGE SC SCH (22:17)
[2024-04-09] MEDS: cloNIDine HCL 0.1 MG TAB PO ONE (06:40)
[2024-04-09] MEDS: ONDANSETRON INJ 2 MG/ML 2 ML VIAL IV STA (06:41)
[2024-04-09] MEDS: diphenhydrAMINE 50 MG/ML VIAL IV STA (06:41)
[2024-04-09 07:15] LABS: Basophils # (auto) 0.06 K/uL (0.00-0.20); Basophils % (auto) 0.4 %; Eosinophils # (auto) 0.04 K/uL (0.00-0.50); Eosinophils % (auto) 0.3 %; Hematocrit (blood only) 40.3 % (37.0-47.0); Immature Granulocytes # (auto) 0.06 K/uL (0.01-0.20); Immature Granulocytes % (auto) 0.4 %; Lymphocytes # (auto) 2.21 K/uL (1.20-3.40); Lymphocytes % (auto) 16.4 %; Mean Corpuscular Hemoglobin 28.9 pg (25.0-34.0); Mean Corpuscular Hgb Conc 32.3 g/dL (32.0-36.0); Mean Corpuscular Volume 89.6 fL (80.0-100.0); Monocytes % (auto) 8.1 %; Neutrophils # (auto) 10.04 K/uL (1.40-6.50); Neutrophils % (auto) 74.4 %; Platelet Count 303 K/uL (130-400); RDW Coefficient of Variation 14.1 % (11.5-14.5); White Blood Count 13.51 K/ul (4.8-10.8)
[2024-04-09 07:33] LABS: BUN Creatinine Ratio 22.4 (10-20); Calcium 11.3 mg/dl (8.6-10.3); Creatinine Clr Calc Pharmacy 36.7 ml/min; Potassium 4.4 mmol/L (3.5-5.1)
[2024-04-09 07:47] LABS: Thyroid Stimulating Hormone 2.092 uIu/ml (0.300-4.500)
[2024-04-09] MEDS: amLODIPine BESYLATE 5 MG TAB PO SCH (08:12)
[2024-04-09] MEDS: ACETAMINOPHEN 325 MG TAB PO PRN (08:15)
[2024-04-09] MEDS ORDERED: DEXAMETHASONE SOD INJ 4 MG/ML VIAL IV STA (08:38)
[2024-04-09] MEDS: dexAMETHasone 8 MG in SYRINGE 0 ML IV ONE (09:07)
[2024-04-09] MEDS: LIDOCAINE 5% 1 PATCH TD SCH (09:07)
--- NOTE | 2024-04-09 09:47 | Orthopedic Consultation ---
Date of Consultation April 09, 2024 Assessment & Plan (1) Right shoulder pain: At this time imaging of the cervical spine does not demonstrate any acute cord or neural compression that would account for her presentation. Evaluation of the shoulder does demonstrate marked discomfort with range of motion and external rotation. I would like to obtain an MRI and x-rays of the right shoulder for further review. History of Present Illness Reason for Consultation: Neck and right shoulder pain Attending Physician: Nathaly Francisco MD History of Present Illness This is a 49-year-old female well-known to me status post ACDF. She done well postoperatively. She states her left arm symptoms are markedly improved. Unfortunately on she began experiencing neck and right shoulder pain radiating across the top and back of her right shoulder to the upper arm. Does not extend to the hand. It is quite limiting in nature. It does keep her up from sleep. She denies any coordination deficits numbness or tingling in the right hand. Allergies Allergy/AdvReac Type Severity Reaction Status Date / Time bee venom protein (honey bee) Allergy Intermediate RED, SHORT Verified 03/18/24 06:04 OF BREATH hydralazine AdvReac Lower Verified 04/08/24 06:49 Extremity Edema Home Medications Medication Instructions Recorded Confirmed Type allopurinol 300 mg tablet 300 mg PO QAM 01/24/24 04/08/24 History amlodipine 10 mg tablet 10 mg PO QAM 01/24/24 04/08/24 History aspirin 325 mg tablet 325 mg PO QAM 01/24/24 04/08/24 History baclofen 10 mg tablet 10 mg PO TID 01/24/24 04/08/24 History buspirone 15 mg tablet 15 mg PO QAM 01/24/24 04/08/24 History carvedilol 25 mg tablet (Coreg) 50 mg PO BID 01/24/24 04/08/24 History duloxetine 60 mg capsule,delayed 60 mg PO QAM 01/24/24 04/08/24 History release eszopiclone 1 mg tablet (Lunesta) 1 mg PO HS 01/24/24 04/08/24 History furosemide 40 mg tablet (Lasix) 40 mg PO UD 01/24/24 04/08/24 History insulin lispro 100 unit/mL 30 sliding scale dose subcut AC 01/24/24 04/08/24 History subcutaneous pen (Humalog KwikPen (U-100) Insulin) omega 9-anf-vdt-fish oil 1,000 mg 1 cap PO QAM 01/24/24 04/08/24 History (120 mg-180 mg) capsule (Fish Oil) pantoprazole 40 mg tablet,delayed 40 mg PO QAM 01/24/24 04/08/24 History release (Protonix) pregabalin 150 mg capsule 150 mg PO TID 01/24/24 04/08/24 History prochlorperazine maleate 10 mg 10 mg PO TID PRN Nausea And 01/24/24 04/08/24 History tablet (Compazine) Vomiting sodium bicarbonate 650 mg tablet 1,950 mg PO TID 01/24/24 04/08/24 History Medical Thc 1 dose PO UD PRN ud 03/06/24 04/08/24 History atorvastatin 80 mg tablet 80 mg PO QAM 03/06/24 04/08/24 History insulin degludec 200 unit/mL (3 120 unit subcut QAM 03/06/24 04/08/24 History mL) subcutaneous pen (Tresiba FlexTouch U-200 insulin) sacubitril 97 mg-valsartan 103 mg 1 tab PO BID 03/18/24 04/08/24 History tablet (Entresto) tramadol 50 mg tablet 50 mg PO Q6H PRN pain, moderate 03/18/24 04/08/24 Rx #30 tabs Patient History Medical History Cervical disc herniation MRI 10/2023, limited rom of neck Anemia of chronic disease has required blood transfusions in past-last transfusion last year Dyslipidemia Hypertension controlled, stable per pt History of nephrolithiasis x 1, passsed on own Diabetic peripheral neuropathy GERD (gastroesophageal reflux disease) controlled, stable per pt Diabetes mellitus, type 2 IDDM Chronic kidney disease, stage [address] dwight colon at [facility] Hyperparathyroidism Depression with anxiety History of endometriosis History of renal dialysis (04/2017) - [facility] - ARF 2/2 DKA Hx of Clostridium difficile infection 2012 - treated, no problems since Chronic nausea Surgical History History of esophagogastroduodenoscopy (EGD) Hx of colonoscopy History of open reduction and internal fixation (ORIF) procedure (2018) left fibula Hx of tracheostomy (2013) R/T COMPLICATIONS AFTER ILEOSTOMY REVERSAL SURGERY IN 2011; HAS SINCE BEEN REVERSED History of rotator cuff surgery (2017) RT History of lumbar spinal fusion (2006) History of reversal of ileostomy (2012) History of ileostomy (2012) Status post cholecystectomy (2017) "cholelithiasis" Status post partial colectomy (2012) "for C diff colitis" Family History Mother Diabetes Other No family history of adverse response to anesthesia Social History Smoking Status: Former smoker Tobacco Type: Cigarettes Cigarettes Per Day: 5; Second Hand Exposure: No; Do You Dip or Chew Tobacco: No; Hx Alcohol Use: No Hx Substance Use: No Preferred Language: Pashto Communication Ability: Effective Coupon Manifest Clerk Required: No Beliefs That Will Affect Care: None marital status: Current Living Situation: Spouse Feels Safe at Home: Yes Assistive Devices: Glasses Physical Exam Physical Exam: On exam her cervical incision is well-healed. She has excellent cervical range of motion. She has excellent strength testing upper extremity on the left. Sensory intact. The right shoulder demonstrates pain with range of motion and external rotation. She has direct discomfort to palpation of the shoulder. She has excellent strength testing to the hand sensory is intact. Results & Data Vital Signs (Past 12 Hours) Vital Signs Temp Pulse Pulse Pulse Resp BP BP 04/09/24 09:16 83 171/96 H 163/78 H 04/09/24 08:07 79 171/96 H 208/116 H 04/09/24 07:23 36.8 C 75 18 181/106 H 04/09/24 04:30 76 188/96 H 04/09/24 02:36 36.6 C 78 18 182/92 H 04/08/24 22:49 36.6 C 86 16 168/84 H 04/08/24 22:02 86 Pulse Ox O2 Del Method 04/09/24 09:16 04/09/24 08:07 04/09/24 07:23 94 Room Air 04/09/24 04:30 04/09/24 02:36 96 Room Air 04/08/24 22:49 95 Room Air 04/08/24 22:02
[2024-04-09] MEDS ORDERED: cloNIDine HCL 0.1 MG TAB PO PRN (10:45)
--- NOTE | 2024-04-09 10:45 | Hospitalist Progress Note ---
Date of Service April 09, 2024 Assessment & Plan (1) Right shoulder pain: (2) Asymptomatic hypertensive urgency: (3) Intractable pain: Plan 48 yr old F who a significant PMH of Uncontrolled T2DM, diabetic polyneuropathy, CKD-3b, HTN, hx of Cdiff colitis s/p colectomy, hx of tobacco abuse #Neck/R shoulder pain Pt is S/P ACDF C4-C5 on 03/18/[address] Andrade Hardware looks good on images, pain is different then previous distribution C spine MRI Status post C4-C5 anterior discectomy and fusion. Mild prevertebral edema which is likely postsurgical. Will give a dose of IV dexamethasone this morning continue oxy for moderate pain, IV dilaudid for severe pain Consult Dr. Andrade who recommends R shoulder XR and MR Consult pain management for possible TPI Add lidocaine patch and ICE # Uncontrolled T2Dm a1c 9.8 on 01/2024 Glycemic pharmacy consult continue insulin per protocol, appreciate pharmacy management #Acute on chronic CKD-3 #Hypercalcemia #Chronic metabolic acidosis continue IVF, bicarb, nephrology consulted Ca 11.4, PTH 257.1 Vit D 21, PTH 212, TSH WNL await further nephro recs, repeat bmp in a.m. #HTN #Chronic HFpEF Bp elevated likely 2/2 pain on amlodipine, coreg, hold lasix/entresto add prn Clonidine for now, continue to monitor #R Thyroid Nodule: noted on imaging, US recommended -thyroid US:Multiple thyroid nodules and complex cysts, likely benign but indeterminate in nature. A follow-up ultrasound could be obtained in 6 months to ensure stability #Vitamin D Def: 21ng/ml, replace with 1,000 I.U daily DVT ppx: SCDS for now until seen by ortho spine FULL CODE PCP: Ady Dispo:admit to med tele Pt was seen and examined in collaboration with Dr. Francisco, please see addendum I spent a total of 52 minutes reviewing notes, outpatient records, labs, medication, coordinating, documenting and providing care for this patient excluding time spent in the performance of separately billed services. Admission and Anticipated Discharge Date Admission Date: April 08, 2024 Supervising Physician Co-Signing Physician Notes Attending addendum The patient was seen and examined in medical telemetry unit She has been complaining of pain in the right shoulder with radiation of pain up to the elbow and also to the neck Does not have any radiculopathic pain or numbness tingling involving the lower extremities MRI of the shoulder showed full-thickness tear of the supraspinatus despite prior repair Will need Ortho evaluation On examination Remains hemodynamically stable but in pain with any movement of the right shoulder Chestclear to auscultate bilaterally HeartS1-S2, regular Abdomenbenign CNSalert, awake and oriented x 3 and no focal sensory or motor deficit appreciated Musculoskeletalany movement of the right shoulder produces severe pain Her labs and imaging studies reviewed Right shoulder MRI showed full-thickness tear of the supraspinatus despite prior repair Will need Ortho evaluation Agree with assessment plan as outlined above by Radha Maritns PA-C and take the full responsible of the care in the hospital DR Jennifer Francisco Subjective Pt reports continued R shoulder pain. She reports some improvement with voltaren, but states the frequency of her pain medications isn't lasting her. She denies f/c/s, chest pain, sob, n/v/d. She has chronic numbness/tingling due to neuropathy and feels this is unchanged. She is very frustrated and is hopeful for an answer on to what could be causing her such excruciating pain. Review of Systems Review of Systems: All systems reviewed & are unremarkable except as noted in HPI & below Physical Exam Physical Exam: Gen: WD/WN, NAD, A&O x3, she is tearful during her exam HEENT: Normocephalic, atraumatic, conjunctivae moist, sclerae anicteric, mucous membranes moist. Lung: Clear to Auscultation bilaterally, no wheezes/rales/rhonchi Heart: Regular rate, regular rhythm, no murmurs, rubs, or gallops Abdomen: Soft, NT, ND +BS x 4 Extremities: No edema, Base of neck TTP, R shoulder tender to palpation and with AROM, no overt weakness noted Skin: Warm, no rash, negative turgor. Results & Data Results & Data Vital Signs (Past 12 Hours) Vital Signs Temp Pulse Pulse Resp BP BP Pulse Ox 04/09/24 09:16 83 171/96 H 163/78 H 04/09/24 08:07 79 171/96 H 208/116 H 04/09/24 07:23 36.8 C 75 18 181/106 H 94 04/09/24 04:30 76 188/96 H 04/09/24 02:36 36.6 C 78 18 182/92 H 96 04/08/24 22:49 36.6 C 86 16 168/84 H 95 O2 Del Method 04/09/24 09:16 04/09/24 08:07 04/09/24 07:23 Room Air 04/09/24 04:30 04/09/24 02:36 Room Air 04/08/24 22:49 Room Air Diagnostic Findings Short CBC 04/09/24 Range/Units 06:07 WBC 13.51 H (4.8-10.8) K/ul Hgb 13.0 (12.0-16.0) g/dl Hct 40.3 (37.0-47.0) % Plt Count 303 (130-400) K/uL BMP 04/08/24 04/09/24 12:52 06:07 Sodium 134 L 135 L Potassium 5.1 4.4 Chloride 105 105 Carbon Dioxide 22 22 BUN 40 H 45 H Creatinine 2.00 H 2.01 H Glucose 297 H 152 H Calcium 11.4 H 11.3 H Urine 04/08/24 Range/Units Unknown Urine Color Yellow Urine Appearance Clear (Clear) Urine pH 7.5 (4.5-7.5) Ur Specific [place] 1.019 (1.000-1.030) Urine Protein 3+ H (Negative) Urine Glucose (UA) 1+ H (Negative) I have independently reviewed and interpreted patient's cbc, bmp, mag, vit d, pth, tsh, Medications Administered Current Inpatient Medications Acetaminophen (Acetaminophen 325 Mg Tab) 650 mg PO QID PRN PRN Reason: pain/fever Stop: 05/08/24 05:25 Last Admin: 04/09/24 08:15 Dose: 650 mg Allopurinol (Allopurinol 300 Mg Tab) 300 mg PO [facility] Stop: 05/08/24 08:59 Last Admin: 04/09/24 08:12 Dose: 300 mg Amlodipine Besylate (Amlodipine Besylate 5 Mg Tab) 10 [facility] [place] Stop: 05/09/24 08:59 Last Admin: 04/09/24 08:12 Dose: 10 mg Atorvastatin Calcium (Atorvastatin 40 Mg Tab) 80 mg PO [facility] Stop: 05/08/24 08:59 Last Admin: 04/09/24 08:12 Dose: 80 mg Baclofen (Baclofen 10 Mg Tab) 10 mg PO TID [facility] Stop: 05/08/24 08:59 Last Admin: 04/09/24 08:12 Dose: 10 mg Buspirone HCl (Buspirone 15 Mg Tab) 15 mg PO QAM [facility] Stop: 05/08/24 08:59 Last Admin: 04/09/24 08:12 Dose: 15 mg Carvedilol (Carvedilol 25 Mg Tab) 50 mg PO BIDM [facility] Stop: 05/08/24 08:59 Last Admin: 04/09/24 08:11 Dose: 50 mg Dextrose (Dextrose 50% 50 Ml Syringe) 25 - 50 ml IV UD PRN; Protocol PRN Reason: Hypoglycemia Protocol Stop: 05/08/24 06:27 Diclofenac Sodium (Diclofenac Sod 1% Gel 100 Gm Tube) 4 gm EXT TID [facility]; Protocol Stop: 05/08/24 20:59 Last Admin: 04/09/24 08:13 Dose: 4 gm Duloxetine HCl (Duloxetine Hcl 60 Mg Cap) 60 mg PO [facility] Stop: 05/08/24 08:59 Last Admin: 04/09/24 08:13 Dose: 60 mg Eszopiclone (Eszopiclone 1 Mg Tab) 1 mg PO HS PRN PRN Reason: insomnia Stop: 05/08/24 20:59 Glucagon (Glucagon For Inj 1 Mg Vial) 1 mg SQ UD PRN; Protocol PRN Reason: Hypoglycemia Protocol Stop: 05/08/24 06:27 Glucose (Glucose 40% Gel 15 Gm Tube) 15 - 30 gm PO UD PRN; Protocol PRN Reason: Hypoglycemia Protocol Stop: 05/08/24 06:27 Glucose (Glucose 10 Tab/Tube) 4 - 8 tab PO UD PRN; Protocol PRN Reason: Hypoglycemia Protocol Stop: 05/08/24 06:27 Hydromorphone HCl (Hydromorphone Inj 1 Mg/Ml Syringe) 1 mg IV Q4H PRN PRN Reason: Severe Pain (Scale 7, 8, 9,10) Stop: 04/22/24 06:26 Last Admin: 04/09/24 10:05 Dose: 1 mg Sodium Chloride (Nss) 1,000 mls @ 100 mls/hr IV .Q10H [facility] Stop: 04/10/24 06:29 Insulin Aspart (Insulin Aspart Per Unit Charge) 0 units SC ACHS [facility] Stop: 05/08/24 07:29 Last Admin: 04/09/24 09:06 Dose: 15 units Insulin Glargine (Lantus Per Unit Charge) 60 units SQ DAILY [facility] Stop: 05/08/24 08:59 Last Admin: 04/09/24 09:07 Dose: 60 units Insulin Glargine (Lantus Per Unit Charge) 0 units SC HS [facility]; Protocol Stop: 05/08/24 20:59 Last Admin: 04/08/24 22:17 Dose: 60 units Lidocaine (Lidocaine 5% 1 Patch) 1 patch TD [facility] [place] Stop: 05/09/24 08:59 Last Admin: 04/09/24 09:07 Dose: 1 patch Lorazepam (Lorazepam 0.5 Mg Tab) 0.5 mg PO TID PRN PRN Reason: Anxiety Stop: 05/08/24 06:27 Miscellaneous (Carbohydrates For Hypoglycemia ) 15 - 30 gm PO UD PRN PRN Reason: Hypoglycemia Protocol Stop: 05/08/24 06:27 Miscellaneous (Remove Lidoderm Patch) 1 each N/A DAILY@2100 [facility] Stop: 05/09/24 20:59 Miscellaneous Information (Pharmacy Glycemic Mgmt Consult) 1 each N/A UD PRN; Protocol PRN Reason: Consult Stop: 05/08/24 09:54 Oxycodone HCl (Oxycodone Hcl Ir 5 Mg Tab (Immediate Release)) 5 - 10 mg PO Q4H PRN PRN Reason: Moderate Pain (Scale 4, 5, 6) Stop: 04/22/24 09:59 Pantoprazole Sodium (Pantoprazole 40 Mg Tab) 40 mg PO QAM [facility] Stop: 05/08/24 08:59 Last Admin: 04/09/24 08:13 Dose: 40 mg Sodium Bicarbonate (Sodium Bicarbonate 650 Mg Tab) 1,950 mg PO TID [facility] Stop: 05/08/24 08:59 Last Admin: 04/09/24 08:13 Dose: 1,950 mg
--- NOTE | 2024-04-09 11:31 | XRay Report ---
XR shoulder RT min 2V routine CLINICAL HISTORY: Right shoulder pain. COMPARISON: None FINDINGS: Alignment of the right shoulder is anatomic. No fractures. No osseous lesions are noted. A few punctate calcific densities adjacent to the right humeral head and acromion are present. Joint s paces are preserved. Irregularity of the greater tuberosity is insertional. There is minimal osteophy tosis within the glenohumeral joint. IMPRESSION: 1. No fracture or dislocation within the right shoulder. 2. Minimal degenerative changes within the right shoulder. ACT 112: Negative or not required by law. Electronically signed by: Usman White M.D. 04/09/2024 11:30 AM
--- NOTE | 2024-04-09 12:14 | Pain Management Consultation ---
Date of Consultation April 09, 2024 Assessment & Plan (1) Right shoulder pain: (2) Acute neck pain: Plan 1. I would not recommend cervical trigger point injections due to her recent ACDF. 2. Awaiting shoulder MRI results, could consider orthopedics evaluation. 3. Continue medication regimen of baclofen, lidocaine patch, Tylenol, oxycodone, hydromorphone. 4. Nothing to offer interventionally in regards to pain management. Please contact with any questions or concerns. History of Present Illness Attending Physician: Nathaly Francisco MD History of Present Illness This is a 49-year-old female that does have a significant history of a C4-C5 anterior discectomy and fusion by on 03/18/2024. She states that the procedure did alleviate the radicular symptoms that she was experiencing down the left arm and she was very pleased with the results. She states that on she developed sudden pain along the right lower cervical region, right scapula, right shoulder down into her mid bicep. She described as sharp stabbing pain. No radicular symptoms down to the fingers. She did try Tylenol, ibuprofen, ice, heat, tramadol without any significant relief. She did see Dr. Andrade this morning and there is suspicion that the pain may be coming from the shoulder so she had a right shoulder x-ray and MRI just prior to my arrival. Patient denies any injury. Case discussed with Dr. Hodge Allergies Allergy/AdvReac Type Severity Reaction Status Date / Time bee venom protein (honey bee) Allergy Intermediate RED, SHORT Verified 03/18/24 06:04 OF BREATH hydralazine AdvReac Lower Verified 04/08/24 06:49 Extremity Edema Home Medications Medication Instructions Recorded Confirmed Type allopurinol 300 mg tablet 300 mg PO QAM 01/24/24 04/08/24 History amlodipine 10 mg tablet 10 mg PO QAM 01/24/24 04/08/24 History aspirin 325 mg tablet 325 mg PO QAM 01/24/24 04/08/24 History baclofen 10 mg tablet 10 mg PO TID 01/24/24 04/08/24 History buspirone 15 mg tablet 15 mg PO QAM 01/24/24 04/08/24 History carvedilol 25 mg tablet (Coreg) 50 mg PO BID 01/24/24 04/08/24 History duloxetine 60 mg capsule,delayed 60 mg PO QAM 01/24/24 04/08/24 History release eszopiclone 1 mg tablet (Lunesta) 1 mg PO HS 01/24/24 04/08/24 History furosemide 40 mg tablet (Lasix) 40 mg PO UD 01/24/24 04/08/24 History insulin lispro 100 unit/mL 30 sliding scale dose subcut AC 01/24/24 04/08/24 History subcutaneous pen (Humalog KwikPen (U-100) Insulin) omega 5-tdk-efk-fish oil 1,000 mg 1 cap PO QAM 01/24/24 04/08/24 History (120 mg-180 mg) capsule (Fish Oil) pantoprazole 40 mg tablet,delayed 40 mg PO QAM 01/24/24 04/08/24 History release (Protonix) pregabalin 150 mg capsule 150 mg PO TID 01/24/24 04/08/24 History prochlorperazine maleate 10 mg 10 mg PO TID PRN Nausea And 01/24/24 04/08/24 History tablet (Compazine) Vomiting sodium bicarbonate 650 mg tablet 1,950 mg PO TID 01/24/24 04/08/24 History Medical Thc 1 dose PO UD PRN ud 03/06/24 04/08/24 History atorvastatin 80 mg tablet 80 mg PO QAM 03/06/24 04/08/24 History insulin degludec 200 unit/mL (3 120 unit subcut QAM 03/06/24 04/08/24 History mL) subcutaneous pen (Tresiba FlexTouch U-200 insulin) sacubitril 97 mg-valsartan 103 mg 1 tab PO BID 03/18/24 04/08/24 History tablet (Entresto) tramadol 50 mg tablet 50 mg PO Q6H PRN pain, moderate 03/18/24 04/08/24 Rx #30 tabs Pain History Previous Imaging and Results Imaging: MRI OF THE CERVICAL SPINE WITHOUT CONTRAST CLINICAL HISTORY: Severe neck pain with radiculopathy right sided. COMPARISON: MRI of the cervical spine November 02, 2023. Cervical spine CT April 08, 2024. TECHNIQUE: Utilizing a 1.5 Sharron magnet and dedicated coil, multiplanar, multiecho imaging of the cervical spine was performed without IV contrast. FINDINGS: There are postoperative findings consistent with C4-C5 anterior discectomy and fusion. Susceptibility artifact from the surgical hardware compromises visualization of the adjacent tissues. Alignment of the cervical spine is anatomic. Cervical cord signal and caliber are normal. No intracanalicular mass or fluid collection is identified. No cervical spine fractures identified. Mild prevertebral edema is present. This extends from the C2-C6 levels. This is likely postsurgical. No well-defined fluid collection is identified. This exam is moderately compromised by artifact. C2-C3: The central canal and neural foramen are patent C3-C4: There is a tiny left paracentral disc protrusion. This is unchanged. This effaces the ventral thecal sac. There is no significant central canal stenosis. Mild to moderate right and mild left neural foraminal stenosis is present. C4-C5: Anterior discectomy and fusion is present. No significant central canal stenosis is noted. Evaluation of the neural foramen is essentially nondiagnostic due to artifact from the surgical hardware. Apparent right neural foraminal stenosis is noted. This may be artifactual. C5-C6: The central canal is patent. There is mild to moderate bilateral neural foraminal stenosis. C6-C7: The central canal and neural foramen are patent. C7-T1: The central canal and neural foramen are patent. IMPRESSION: 1. Status post C4-C5 anterior discectomy and fusion. Mild prevertebral edema which is likely postsurgical. 2. Exam moderately compromised by artifact, as described above. Normal cervical cord signal and caliber. No severe central canal stenosis. 3. Multilevel neural foraminal stenosis, as detailed above. Apparent narrowing of the right C4-C5 neural foramen. This may be artifactual. ACT 112: Negative or not required by law. Electronically signed by: Usman White M.D. 04/08/2024 3:05 PM Patient History Medical History Cervical disc herniation MRI 10/2023, limited rom of neck Anemia of chronic disease has required blood transfusions in past-last transfusion last year Dyslipidemia Hypertension controlled, stable per pt History of nephrolithiasis x 1, passsed on own Diabetic peripheral neuropathy GERD (gastroesophageal reflux disease) controlled, stable per pt Diabetes mellitus, type 2 IDDM Chronic kidney disease, stage [address] dwight colon at [facility] Hyperparathyroidism Depression with anxiety History of endometriosis History of renal dialysis (04/2017) - [facility] - ARF 2/2 DKA Hx of Clostridium difficile infection 2012 - treated, no problems since Chronic nausea Surgical History History of esophagogastroduodenoscopy (EGD) Hx of colonoscopy History of open reduction and internal fixation (ORIF) procedure (2018) left fibula Hx of tracheostomy (2013) R/T COMPLICATIONS AFTER ILEOSTOMY REVERSAL SURGERY IN 2011; HAS SINCE BEEN REVERSED History of rotator cuff surgery (2017) RT History of lumbar spinal fusion (2006) History of reversal of ileostomy (2012) History of ileostomy (2012) Status post cholecystectomy (2017) "cholelithiasis" Status post partial colectomy (2012) "for C diff colitis" Family History Mother Diabetes Other No family history of adverse response to anesthesia Social History Smoking Status: Former smoker Tobacco Type: Cigarettes Cigarettes Per Day: 5; Second Hand Exposure: No; Do You Dip or Chew Tobacco: No; Hx Alcohol Use: No Hx Substance Use: No Preferred Language: Chinese Communication Ability: Effective 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 HEAD/FACE: Normocephalic and atraumatic. EYES: No drainage or conjunctival injection. ENT: Nose without bleeding or discharge. Oral mucosa moist. NECK: No midline or facet joint tenderness. No myofascial spasm or tenderness. RESPIRATORY: Patient with unlabored breathing. No signs of respiratory distress. CHEST/AXILLA: Chest movement symmetrical. No deformities noted. SKIN: [place], warm and dry. No rash noted. MS/EXTREMITY: Focal tenderness along the right posterior shoulder. No biceps tenderness. Positive empty can testing. NEURO: Alert and appears oriented. Speech is fluent. Cranial Nerves are grossly intact. PSYCH: Alert, pleasant, affect is calm
[2024-04-09] MEDS: CHOLECALCIFEROL 25 MCG (1000 UNITS) TAB PO SCH (12:34)
[2024-04-09] MEDS: SODIUM CHLORIDE 0.9% 1,000 ML IV SCH (12:51)
--- NOTE | 2024-04-09 13:35 | Magnetic Resonance Report ---
MR shoulder RT wo con CLINICAL HISTORY: shoulder pain TECHNIQUE: Multiplanar multisequence MR images of the right shoulder were obtained. Comparison: Comparison is made to shoulder radiograph 04/09/2024 FINDINGS: There is no evidence of os acromiale. Mild osteoarthropathy seen in the acromioclavicular joint. There is a full-thickness tear of the supraspinatus with retraction of fibers resulting in an approxi mately 1 cm loss of coverage of the humeral head. Postsurgical changes of rotator cuff surgery are se en. The biceps tendon is intact and unremarkable. The supraspinatus may be mildly atrophic. The visualized portions of the anterior, superior, and inferior labrum are unremarkable. No effusion is present. Normal cartilage and marrow signal in the glenohumeral joint. IMPRESSION: There is a full-thickness tear of the supraspinatus despite prior repair. ACT 112: Negative or not required by law. Electronically signed by: Cali Barron M.D. 04/09/2024 1:33 PM
--- NOTE | 2024-04-09 14:37 | Pharmacy Report ---
Pharmacy Glycemic Short Note 2 - Date of Service April 09, 2024 - Glycemic Short BSG Results (Last 24 hours): 04/08/24 04/08/24 04/09/24 17:31 20:13 06:07 Glucose 152 H POC Glucose 231 H 202 H 04/09/24 04/09/24 08:08 13:28 Glucose POC Glucose 164 H 175 H OUTPATIENT ANTIDIABETIC REGIMEN: * Tresiba 120 units SQ QAM * Humalog 30 units SQ AC HbA1c: 9.8% on 01-24-24 ASSESSMENT: 04/09 * Patient well controlled thus far today. * Fasting BSG of 164 mg/dL. Patient received home dose of Lantus (120 units total) yesterday. Will back off this significantly given no ongoing steroids and past admission data indicating that patient did well on ~50 units of basal daily. * Tightened carb ratio to 4 this morning based on BSGS consistently > 200 mg/dL yesterday. Now that dexamethasone effect is wearing off, will loosen to CF/CR 22/10 based on previous admission data. 04/08 * 48 year old patient presented to the ED with severe neck pain radiating down the right arm. Pharmacy was consulted for glycemic management while she is admitted. * BSG was 209 on admit. Lantus 60 units was given in the ED and a bolus insulin scale was started by the provider. * BSG myriam to 265mg/dL at lunch and patient received a dose of iv dexamethasone so the bolus insulin parameters were tightened to a weight based dosing with a stress of 3. A lantus scale (20-60 units) was ordered for HS PLAN FOR INPATIENT GLYCEMIC CONTROL: * Hold outpatient diabetes medications * Basal insulin * Lantus 60 units SQ QAM and Lantus scale at HS (if BSG < 120--0 units, BSG 120-200--10 units, BSG > 200--20 units) * Bolus insulin * NovoLog per scale ACHS or Q6hrs while NPO * Goal Range: Low 110 mg/dL - High 140 mg/dL * Correction Factor: 15 mg/dL/unit * Nutritional / Prandial insulin per carb ratio of 1 unit per 7 grams CHO consumed
[2024-04-09] MEDS: LORazepam 0.5 MG TAB PO PRN (15:20)
[2024-04-09] MEDS: oxyCODONE HCL IR 5 MG TAB (IMMEDIATE RELEASE) PO PRN (15:21)
[2024-04-09] MEDS: PREGABALIN 150 MG CAP PO SCH (21:57)
[2024-04-09] MEDS: ESZOPICLONE 1 MG TAB PO PRN (22:23)
[2024-04-10 08:04] VITALS: RESP 16
[2024-04-10 08:49] LABS: Basophils # (auto) 0.01 K/uL (0.00-0.20); Basophils % (auto) 0.1 %; Hematocrit (blood only) 34.6 % (37.0-47.0); Hemoglobin 11.2 g/dl (12.0-16.0); Immature Granulocytes # (auto) 0.05 K/uL (0.01-0.20); Immature Granulocytes % (auto) 0.5 %; Lymphocytes # (auto) 1.36 K/uL (1.20-3.40); Lymphocytes % (auto) 13.6 %; Mean Corpuscular Hgb Conc 32.4 g/dL (32.0-36.0); Mean Corpuscular Volume 89.6 fL (80.0-100.0); Mean Platelet Volume 10.9 fL (9.4-12.4); Monocytes # (auto) 0.57 K/uL (0.11-0.59); Monocytes % (auto) 5.7 %; Neutrophils # (auto) 7.99 K/uL (1.40-6.50); Neutrophils % (auto) 80.1 %; Platelet Count 236 K/uL (130-400); RDW Coefficient of Variation 13.8 % (11.5-14.5); Red Blood Count 3.86 M/uL (4.20-5.40); White Blood Count 9.98 K/ul (4.8-10.8)
[2024-04-10 09:09] LABS: BUN Creatinine Ratio 22.1 (10-20); Calcium 10.9 mg/dl (8.6-10.3); Creatinine Clr Calc Pharmacy 40.8 ml/min; Potassium 4.6 mmol/L (3.5-5.1)
--- NOTE | 2024-04-10 09:49 | Orthopedic Consultation ---
Date of Service April 10, 2024 Assessment & Plan (1) Right shoulder pain: The MRI does show some chronic attritional tearing of the supraspinatus. She had a prior rotator cuff repair done by Dr. Shafer. This does not appear to be an acute injury. Her symptoms have been going on since her neck surgery. Her anterior arm pain has been relieved since her cervical fusion but now she has this pain in her scapular region that radiates down the back of her right arm. She has good motion and strength of her right shoulder. I do not feel that this is all coming from her shoulder joint, however, she was seen by Dr. Andrade and there is no further cervical pathology. I gave her a right posterior subacromial injection at bedside. Will see if the cortisone injection of her shoulder helps out with some of her lingering symptoms. She can continue to follow-up with Dr. Shafer who did her index procedure. History of Present Illness Reason for Consultation: Right shoulder pain. Requesting Physician: . Attending Physician: Nathaly Francisco MD [place] is a pleasant 49-year-old female who was admitted to the hospital with right shoulder pain. She has a history of a right rotator cuff repair done by Dr. Shafer in the past. She has not had any recent falls or traumas to the right shoulder. She underwent a cervical fusion by Dr. Andrade about 3 weeks ago for pain in both of her shoulders and upper extremities. Before the surgery she had pain that radiated down her left and right arm. It was a little worse on the left than the right. He was noticing anterior shoulder pain. Since the surgery, a lot of that pain has subsided. However she now has pain mostly over the right scapula. She said this pain showed up ever since the day of her surgery. The pain radiates from her neck down the scapula and down her triceps region. She was seen by Dr. Andrade and no cervical pathology was appreciated. An MRI was obtained of her right shoulder. It showed some chronic attritional tearing of the supraspinatus. Orthopedics was consulted to evaluate and treat.. Allergies Allergy/AdvReac Type Severity Reaction Status Date / Time bee venom protein (honey bee) Allergy Intermediate RED, SHORT Verified 03/18/24 06:04 OF BREATH hydralazine AdvReac Lower Verified 04/08/24 06:49 Extremity Edema Home Medications Medication Instructions Recorded Confirmed Type allopurinol 300 mg tablet 300 mg PO QAM 01/24/24 04/08/24 History amlodipine 10 mg tablet 10 mg PO QAM 01/24/24 04/08/24 History aspirin 325 mg tablet 325 mg PO QAM 01/24/24 04/08/24 History baclofen 10 mg tablet 10 mg PO TID 01/24/24 04/08/24 History buspirone 15 mg tablet 15 mg PO QAM 01/24/24 04/08/24 History carvedilol 25 mg tablet (Coreg) 50 mg PO BID 01/24/24 04/08/24 History duloxetine 60 mg capsule,delayed 60 mg PO QAM 01/24/24 04/08/24 History release eszopiclone 1 mg tablet (Lunesta) 1 mg PO HS 01/24/24 04/08/24 History furosemide 40 mg tablet (Lasix) 40 mg PO UD 01/24/24 04/08/24 History insulin lispro 100 unit/mL 30 sliding scale dose subcut AC 01/24/24 04/08/24 History subcutaneous pen (Humalog KwikPen (U-100) Insulin) omega 3-uze-mph-fish oil 1,000 mg 1 cap PO QAM 01/24/24 04/08/24 History (120 mg-180 mg) capsule (Fish Oil) pantoprazole 40 mg tablet,delayed 40 mg PO QAM 01/24/24 04/08/24 History release (Protonix) pregabalin 150 mg capsule 150 mg PO TID 01/24/24 04/08/24 History prochlorperazine maleate 10 mg 10 mg PO TID PRN Nausea And 01/24/24 04/08/24 History tablet (Compazine) Vomiting sodium bicarbonate 650 mg tablet 1,950 mg PO TID 01/24/24 04/08/24 History Medical Thc 1 dose PO UD PRN ud 03/06/24 04/08/24 History atorvastatin 80 mg tablet 80 mg PO QAM 03/06/24 04/08/24 History insulin degludec 200 unit/mL (3 120 unit subcut QAM 03/06/24 04/08/24 History mL) subcutaneous pen (Tresiba FlexTouch U-200 insulin) sacubitril 97 mg-valsartan 103 mg 1 tab PO BID 03/18/24 04/08/24 History tablet (Entresto) tramadol 50 mg tablet 50 mg PO Q6H PRN pain, moderate 03/18/24 04/08/24 Rx #30 tabs Past Med/Surg History Problem List Right shoulder pain Asymptomatic hypertensive urgency Intractable pain (Acute) Acute neck pain (Acute) Neck pain (Acute) History of congestive heart failure Cervical stenosis of spinal canal Acute kidney injury superimposed on CKD (Acute) Depression with anxiety Hyperparathyroidism 05/20/22 Chronic renal disease, stage 3, moderately decreased glomerular filtration rate (GFR) between 30-59 mL/min/1.73 square meter Diabetic nephropathy associated with type 2 diabetes mellitus Diabetes type 2, uncontrolled Diabetic peripheral neuropathy associated with type 2 diabetes mellitus 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/15/19 Dysesthesia 03/15/19 Dyslipidemia Hypercalcemia 03/15/19 Hypertension Nephrolithiasis Vitamin D deficiency Acidosis, metabolic 10/16/20 Anemia of chronic disease GERD (gastroesophageal reflux disease) Medical History Cervical disc herniation MRI 10/2023, limited rom of neck Anemia of chronic disease has required blood transfusions in past-last transfusion last year Dyslipidemia Hypertension controlled, stable per pt History of nephrolithiasis x 1, passsed on own Diabetic peripheral neuropathy GERD (gastroesophageal reflux disease) controlled, stable per pt Diabetes mellitus, type 2 IDDM Chronic kidney disease, stage [address] dwight colon at [facility] Hyperparathyroidism Depression with anxiety History of endometriosis History of renal dialysis (04/2017) - [facility] - ARF 2/2 DKA Hx of Clostridium difficile infection 2012 - treated, no problems since Chronic nausea Surgical History History of esophagogastroduodenoscopy (EGD) Hx of colonoscopy History of open reduction and internal fixation (ORIF) procedure (2018) left fibula Hx of tracheostomy (2013) R/T COMPLICATIONS AFTER ILEOSTOMY REVERSAL SURGERY IN 2011; HAS SINCE BEEN REVERSED History of rotator cuff surgery (2017) RT History of lumbar spinal fusion (2006) History of reversal of ileostomy (2012) History of ileostomy (2012) Status post cholecystectomy (2017) "cholelithiasis" Status post partial colectomy (2012) "for C diff colitis" Family History Mother Diabetes Other No family history of adverse response to anesthesia Social History Smoking Status: Former smoker Tobacco Type: Cigarettes Cigarettes Per Day: 5; Second Hand Exposure: No; Do You Dip or Chew Tobacco: No; Hx Alcohol Use: No Hx Substance Use: No Preferred Language: Ukrainian Communication Ability: Effective 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 Physical Exam On physical examination of right shoulder, she has full active range of motion. She is 5 5 motion at the full can test and external rotation. Very little pain in the anterior subacromial space. There is very little pain over the chronic cuff tear. Most of her pain is located in the scapular region and radiates down the back of her right arm.. Constitutional WD/WN, vitals as above Eyes PERRL, conjunctivae normal, anicteric sclerae ENMT external ear and nose normal, oropharynx normal Neck trachea midline, no thyromegaly Respiratory normal respiratory effort Cardiovascular RRR, no murmur, no edema Gastrointestinal (Abdomen) normal bowel sounds, soft, nontender, no hepatosplenomegaly Psychiatric A+Ox3, euthymic affect Results & Data Results & Data Laboratory Results . Diagnostic Findings MRI of the right shoulder was reviewed and it shows attritional to chronic tearing of the supraspinatus. There are signs of prior rotator cuff repair. I do not see any significant arthritis of the glenohumeral joint.. PG Care Time/CCT Total # of Minutes Spent Total Time Spent with Patient: Total time spent is greater than 50% in coordination of care (as documented) at patient's floor/unit and/or counseling patient: Coding Level of Care Code 71886 IN/OBS CONSULT LVL 4,60M (25 - SIGNIFICANT, SEPARATELY IDENTIFIABLE ) Diagnoses Right shoulder pain M25.511
[2024-04-10] MEDS: BUPIVACAINE/EPINEPHRINE 0.25% 1:200,000 30 ML VIAL INFIL STA (10:38)
[2024-04-10] MEDS: TRIAMCINOLONE ACET 40 MG/ML VIAL IA STA (10:39)
--- NOTE | 2024-04-10 10:59 | Orthopedic Progress Note ---
Date of Service April 10, 2024 Assessment & Plan (1) Right shoulder pain: Plan: At this time she is going to follow-up in our office in approximately 4 weeks as scheduled. Will also arrange for an appointment with our shoulder surgeon. She is stable for discharge from orthopedic standpoint. Admission and Anticipated Discharge Date Admission Date: April 08, 2024 Subjective Patient understands she has a right rotator cuff tear. She has had a steroid injection this morning. Physical Exam Physical Exam: On exam this morning she appears comfortable. She is neurologically intact. Results & Data Vital Signs (Past 12 Hours) Vital Signs Temp Pulse Pulse Resp BP BP Pulse Ox 04/10/24 09:58 69 04/10/24 08:04 36.7 C 72 16 156/76 H 95 04/10/24 02:33 36.8 C 73 18 168/83 H 93 O2 Del Method 04/10/24 09:58 04/10/24 08:04 Room Air 04/10/24 02:33 Room Air
[2024-04-10 11:52] VITALS: TEMP 97.9; O2SAT 94
--- NOTE | 2024-04-10 12:26 | Communication Note ---
Date of Service: April 10, 2024 Care reviewed w/ Dr Francisco. Pt stable from neph standpoint for d/c; likely for her to leave before I evaluate her d/t my other clinical duties. Pt w/ known h/o primary hyperparathyroidism managed primarily by [facility] endocrine. Plan in early 2023 was for her to establish w/ Dr Valenzuela [facility] ENT for evaluation of parathyroid surgery; She had appt scheduled in August which was cancelled d/t OR coverage NEPHRO D/C RECS: -PCP to follow BMP 04/15 and again 04/22 -hospital d/c appt w/ me pls 40 minutes in 2-3 wks [facility] w/ pt to get BMP, UACM, ACR, VBG, PTH, 25OHD, 24 hr urine for creatinine and sodium and calcium > to be done up to 72 hrs before neph appt; neph nurse will order labs as well as nuke med PTH scan (none found in [facility] or [facility] records) -also pls ensure she has endocrine appt > due this month -pls get an appt w/ Dr Ge Valenzuela or Dr Landon Thomas [facility] otolaryngology for evaluation for parathyroid surgery; will need to have a nuke med PTH scan before appt
--- NOTE | 2024-04-10 12:27 | Hospitalist Progress Note ---
Date of Service April 10, 2024 Assessment & Plan (1) Right shoulder pain: (2) Asymptomatic hypertensive urgency: (3) Intractable pain: Plan 48 yr old F who a significant PMH of Uncontrolled T2DM, diabetic polyneuropathy, CKD-3b, HTN, hx of Cdiff colitis s/p colectomy, hx of tobacco abuse #Neck/R shoulder pain Pt is S/P ACDF C4-C5 on 03/18/[address] Andrade Hardware looks good on images, pain is different then previous distribution C spine MRI Status post C4-C5 anterior discectomy and fusion. Mild prevertebral edema which is likely postsurgical. Will give a dose of IV dexamethasone this morning continue oxy for moderate pain, IV dilaudid for severe pain Appreciate orthospine evaluation and recommendationdoes not think the pain is coming from the neck but the shoulder Consult pain management for possible TPIappreciate input and recommendation Add lidocaine patch and ICE Right supraspinatus tear Appreciate Ortho input and recommendation Has had steroid injection and the patient has been feeling a lot better Her pain is much improved with injection She wants to go home and will be discharged home this afternoon #Hypercalcemia #Acute on chronic CKD-3 #Chronic metabolic acidosis continue IVF, bicarb, nephrology consulted Ca 11.4, PTH 257.1 Vit D 21, PTH 212, TSH WNL Appreciate butt presser input and recommendation Received adequate amount of intravenous fluid and the patient has been drinking a lot Calcium level is come down to 10.9 today Discussed with the butt presser and the patient can be discharged this afternoon # Uncontrolled T2Dm a1c 9.8 on 01/2024 Glycemic pharmacy consult continue insulin per protocol, appreciate pharmacy management #HTN #Chronic HFpEF Bp elevated likely 2/2 pain on amlodipine, coreg, hold lasix/entresto add prn Clonidine for now, continue to monitor #R Thyroid Nodule: noted on imaging, US recommended -thyroid US:Multiple thyroid nodules and complex cysts, likely benign but indeterminate in nature. A follow-up ultrasound could be obtained in 6 months to ensure stability #Vitamin D Def: 21ng/ml, replace with 1,000 I.U daily DVT ppx: SCDS for now until seen by ortho spine FULL CODE PCP: Ady Dispo:admit to med tele Admission and Anticipated Discharge Date Admission Date: April 08, 2024 Subjective 04/10/2024 The patient was seen and examined in medical telemetry unit She has had injection of the right shoulder by orthopedic surgeon and has been feeling a lot better Denies any significant pain with movement of the right shoulder Her calcium level has been improved a lot and she wants to go home Review of Systems Review of Systems: All systems reviewed and are unremarkable except as noted below Physical Exam Physical Exam: On examination Remains hemodynamically stable but in pain with any movement of the right shoulder Chestclear to auscultate bilaterally HeartS1-S2, regular Abdomenbenign CNSalert, awake and oriented x 3 and no focal sensory or motor deficit appreciated Musculoskeletalany movement of the right shoulder produces minimal pain Results & Data Results & Data Vital Signs (Past 12 Hours) Vital Signs Temp Pulse Pulse Resp BP BP Pulse Ox 04/10/24 11:51 36.6 C 57 L 16 127/58 L 94 04/10/24 09:58 69 04/10/24 08:04 36.7 C 72 16 156/76 H 95 04/10/24 02:33 36.8 C 73 18 168/83 H 93 O2 Del Method 04/10/24 11:51 Room Air 04/10/24 09:58 04/10/24 08:04 Room Air 04/10/24 02:33 Room Air Laboratory Results Short CBC 04/10/24 Range/Units 07:35 WBC 9.98 (4.8-10.8) K/ul Hgb 11.2 L (12.0-16.0) g/dl Hct 34.6 L (37.0-47.0) % Plt Count 236 (130-400) K/uL BMP 04/10/24 07:35 Sodium 136 Potassium 4.6 Chloride 109 H Carbon Dioxide 21 BUN 40 H Creatinine 1.81 H Glucose 111 H Calcium 10.9 H Medications Administered Current Inpatient Medications Acetaminophen (Acetaminophen 325 Mg Tab) 650 mg PO QID PRN PRN Reason: pain/fever Stop: 05/08/24 05:25 Last Admin: 04/10/24 08:47 Dose: 650 mg Allopurinol ([facility]op[facility]ol 300 Mg Tab) [facility] [place]: 05/08/24 08:59 Last Admin: 04/10/24 08:50 Dose: 300 mg Amlodipine Besylate (Amlodipine Besylate 5 Mg Tab) 10 mg PO [facility] Stop: 05/09/24 08:59 Last Admin: 04/10/24 08:50 Dose: 10 mg Atorvastatin Calcium (Atorvastatin 40 Mg Tab) 80 mg PO [facility] Stop: 05/08/24 08:59 Last Admin: 04/10/24 08:49 Dose: 80 mg Baclofen (Baclofen 10 Mg Tab) 10 mg PO TID [facility] Stop: 05/08/24 08:59 Last Admin: 04/10/24 10:38 Dose: 10 mg Buspirone HCl (Buspirone 15 Mg Tab) 15 mg PO [facility] Stop: 05/08/24 08:59 Last Admin: 04/10/24 08:50 Dose: 15 mg Carvedilol (Carvedilol 25 Mg Tab) 50 mg PO BIDM [facility] Stop: 05/08/24 08:59 Last Admin: 04/10/24 08:48 Dose: 50 mg Clonidine HCl (Clonidine Hcl 0.1 Mg Tab) 0.1 mg PO Q8H PRN PRN Reason: SBP > 180 Stop: 05/09/24 10:44 Dextrose (Dextrose 50% 50 Ml Syringe) 25 - 50 ml IV UD PRN; Protocol PRN Reason: Hypoglycemia Protocol Stop: 05/08/24 06:27 Diclofenac Sodium (Diclofenac Sod 1% Gel 100 Gm Tube) 4 gm EXT TID [facility]; Protocol Stop: 05/08/24 20:59 Last Admin: 04/10/24 08:51 Dose: Not Given Duloxetine HCl (Duloxetine Hcl 60 Mg Cap) 60 mg PO [facility] Stop: 05/08/24 08:59 Last Admin: 04/10/24 08:49 Dose: 60 mg Eszopiclone (Eszopiclone 1 Mg Tab) 1 mg PO HS PRN PRN Reason: insomnia Stop: 05/08/24 20:59 Last Admin: 04/09/24 22:23 Dose: 1 mg Glucagon (Glucagon For Inj 1 Mg Vial) 1 mg SQ UD PRN; Protocol PRN Reason: Hypoglycemia Protocol Stop: 05/08/24 06:27 Glucose (Glucose 40% Gel 15 Gm Tube) 15 - 30 gm PO UD PRN; Protocol PRN Reason: Hypoglycemia Protocol Stop: 05/08/24 06:27 Glucose (Glucose 10 Tab/Tube) 4 - 8 tab PO UD PRN; Protocol PRN Reason: Hypoglycemia Protocol Stop: 05/08/24 06:27 Hydromorphone HCl (Hydromorphone Inj 1 Mg/Ml Syringe) 1 mg IV Q4H PRN PRN Reason: Severe Pain (Scale 7, 8, 9,10) Stop: 04/22/24 06:26 Last Admin: 04/09/24 10:05 Dose: 1 mg Insulin Aspart (Insulin Aspart Per Unit Charge) 0 units SC ACHS [facility] Stop: 05/08/24 07:29 Last Admin: 04/10/24 09:29 Dose: 13 units Insulin Glargine (Lantus Per Unit Charge) 60 units SQ DAILY [facility] Stop: 05/08/24 08:59 Last Admin: 04/10/24 09:29 Dose: 60 units Insulin Glargine (Lantus Per Unit Charge) 0 units SC HS [facility]; Protocol Stop: 05/08/24 20:59 Last Admin: 04/09/24 21:58 Dose: 20 units Lidocaine (Lidocaine 5% 1 Patch) 1 patch TD [facility] Stop: 05/09/24 08:59 Last Admin: 04/10/24 10:38 Dose: 1 patch Lorazepam (Lorazepam 0.5 Mg Tab) 0.5 mg PO TID PRN PRN Reason: Anxiety Stop: 05/08/24 06:27 Last Admin: 04/10/24 09:29 Dose: 0.5 mg Miscellaneous (Carbohydrates For Hypoglycemia ) 15 - 30 gm PO UD PRN PRN Reason: Hypoglycemia Protocol Stop: 05/08/24 06:27 Miscellaneous (Remove Lidoderm Patch) 1 each N/A DAILY@2100 [facility] Stop: 05/09/24 20:59 Last Admin: 04/09/24 22:00 Dose: Not Given Miscellaneous Information (Pharmacy Glycemic Mgmt Consult) 1 each N/A UD PRN; Protocol PRN Reason: Consult Stop: 05/08/24 09:54 Oxycodone HCl (Oxycodone Hcl Ir 5 Mg Tab (Immediate Release)) 5 - 10 mg PO Q4H PRN PRN Reason: Moderate Pain (Scale 4, 5, 6) Stop: 04/22/24 09:59 Last Admin: 04/10/24 01:14 Dose: 10 mg Pantoprazole Sodium (Pantoprazole 40 Mg Tab) [facility]: 05/08/24 08:59 Last Admin: 01/01/25 10:38 Dose: 40 mg Pregabalin (Pregabalin 150 Mg Cap) 150 mg PO TID [facility] Stop: 05/09/24 20:59 Last Admin: 04/10/24 08:47 Dose: 150 mg Sodium Bicarbonate (Sodium Bicarbonate 650 Mg Tab) 1,950 mg PO TID [facility] Stop: 05/08/24 08:59 Last Admin: 04/10/24 08:49 Dose: 1,950 mg Vitamin D (Cholecalciferol 25 Mcg (1000 Units) Tab) 25 mcg PO QAM [facility] Stop: 05/09/24 10:59 Last Admin: 04/10/24 08:50 Dose: 25 mcg
[2024-04-10 13:24] VITALS: BP 168/83; PULSE 78
--- NOTE | 2024-04-10 17:00 | Discharge Summary ---
Date of Service April 10, 2024 Admission HPI Per Admitting Provider History obtained from patient and records. Medical history significant for hypertension, hyperlipidemia, DM 2 insulin requiring, CRI (baseline creatinine 1-7-2), chronic metabolic acidosis, hyperparathyroidism as per records, GERD, gout, cervical spine stenosis status post recent surgery (03/2024), past tobacco abuse. Recent overnight confinement under Orthopedics spine service for cervical spine stenosis status post cervical discectomy/fusion. Unremarkable postop course. Last week, patient had sudden onset of achy posterior neck pain going down her right arm. No trauma or unusual exertion. Denies headache, chest pain, and SOB symptoms. Right arm weak and numb from pain. No fever, no chills. Patient consulted ER last night. CT cervical spine showed 1. Status post anterior fusion of C4-C5 vertebral bodies with hardware in appropriate position 2. Small disc osteophyte complexes at C4-C5 level with mild thecal sac indentation, without significant canal or foraminal stenosis 3. Straightening of cervical lordosis Patient discharged home with instructions to follow-up with spine surgeon but returned to ER as soon as pain became uncontrolled while walking to the parking lot. Highest SBP of 190s documented at the ER. 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 [employer] Admission Exam Per Admitting Provider Physical Exam: GENERAL: Slightly uncomfortable, pleasant, no respiratory distress SKIN: Normal color, warm HEENT: [place] palpebral conjunctivae, no ptosis, dry buccal mucosa NECK : Short neck, Limited range of motion, right-sided cervical tenderness CHEST : Decreased breath sounds, no tenderness HEART : RRR, no obvious murmurs ABDOMEN: Some distention, nontender EXTREMITIES : Minimal LE swelling, no LE tenderness, no other conspicuous deformities noted NEUROLOGIC : Coherent, no facial asymmetry, no other gross focality Principal Diagnosis Hypertensive urgency, hypercalcemia, right supraspinatus tendon tear with shoulder pain Discharge Exam On examination Remains hemodynamically stable but in pain with any movement of the right shoulder Chestclear to auscultate bilaterally HeartS1-S2, regular Abdomenbenign CNSalert, awake and oriented x 3 and no focal sensory or motor deficit appreciated Musculoskeletalany movement of the right shoulder produces minimal pain Discharge Data Allergies Allergy/AdvReac Type Severity Reaction Status Date / Time bee venom protein (honey bee) Allergy Intermediate RED, SHORT Verified 03/18/24 06:04 OF BREATH hydralazine AdvReac Lower Verified 04/08/24 06:49 Extremity Edema Consultations 04/08/24 05:07 ED Decision to Admit Stat 04/08/24 06:30 Consult Orthopedic Spine Surgery Routine 04/08/24 07:48 Consult Nephrology Routine 04/09/24 08:38 Consult Pain Management Routine 04/09/24 14:41 Consult Orthopedic Surgery Routine Ordered Studies 04/08/24 02:23 CT cervical spine wo con Stat 04/08/24 09:55 MR cervical spine wo con Routine 04/08/24 09:56 US thyroid Routine 04/09/24 09:44 MR shoulder RT wo con Urgent Hospital Course (1) Right shoulder pain: (2) Asymptomatic hypertensive urgency: (3) Intractable pain: Plan 48 yr old F who a significant PMH of Uncontrolled T2DM, diabetic polyneuropathy, CKD-3b, HTN, hx of Cdiff colitis s/p colectomy, hx of tobacco abuse #Neck/R shoulder pain Pt is S/P ACDF C4-C5 on 03/18/[address] Andrade Hardware looks good on images, pain is different then previous distribution C spine MRI Status post C4-C5 anterior discectomy and fusion. Mild prevertebral edema which is likely postsurgical. Will give a dose of IV dexamethasone this morning continue oxy for moderate pain, IV dilaudid for severe pain Appreciate orthospine evaluation and recommendationdoes not think the pain is coming from the neck but the shoulder Consult pain management for possible TPIappreciate input and recommendation Add lidocaine patch and ICE Right supraspinatus tear Appreciate Ortho input and recommendation Has had steroid injection and the patient has been feeling a lot better Her pain is much improved with injection She wants to go home and will be discharged home this afternoon #Hypercalcemia #Acute on chronic CKD-3 #Chronic metabolic acidosis continue IVF, bicarb, nephrology consulted Ca 11.4, PTH 257.1 Vit D 21, PTH 212, TSH WNL Appreciate patient care input and recommendation Received adequate amount of intravenous fluid and the patient has been drinking a lot Calcium level is come down to 10.9 today Discussed with the patient care and the patient can be discharged this afternoon # Uncontrolled T2Dm a1c 9.8 on 01/2024 Glycemic pharmacy consult continue insulin per protocol, appreciate pharmacy management #HTN #Chronic HFpEF Bp elevated likely 2/2 pain on amlodipine, coreg, hold lasix/entresto add prn Clonidine for now, continue to monitor #R Thyroid Nodule: noted on imaging, US recommended -thyroid US:Multiple thyroid nodules and complex cysts, likely benign but indeterminate in nature. A follow-up ultrasound could be obtained in 6 months to ensure stability #Vitamin D Def: 21ng/ml, replace with 1,000 I.U daily DVT ppx: SCDS for now until seen by ortho spine FULL CODE PCP: Ady Dispo:admit to med tele Total Time Total Time Spent Total Time Spent (In Minutes): 35 Minutes Discharge Plan Discharge Items Patient Disposition: Home - Self-Care Reason For Visit: HTN URG, HYPERCALCEMIA Discharge Diagnosis: Hypertensive urgency, hypercalcemia, right supraspinatus tendon tear with shoulder pain Condition on Discharge: Fair Activity: Resume your previous activity Non-emergency contact: Primary Care Provider Call non-emergency contact if: you have any medication questions and your symptoms worsen Follow-up/Referrals: Wiliam Garsia [Primary Care Provider] - (Your doctor's office will give you a call tomorrow with an appointment within 7 days) Diet: Carb Consistent or DM2 Addtl Attending Provider Instructions: Please take precautions to avoid falls Take your medications as advised. Will need to have an appointment with Dr. Shafer your orthopedic surgeon as a follow-up for your shoulder pain. Your PCP will need to get BMP panel done on 6 and 13 with of this month You will have appointment with patient care in about 2 to 3 weeks-patient care office will give you a call with appointment 6 Pending Studies at Discharge: No Stand-Alone Forms: My [place] [employer], Smoking Cessation Medications and DC Order Prescriptions: New lidocaine 5 % Adhesive Patch,Medicated 1 patch transdermal QAM Qty: 30 0RF diclofenac sodium [Voltaren Arthritis Pain] 1 % Gel 4 g EXT TID Qty: 50 0RF cholecalciferol (vitamin D3) 25 mcg (1,000 unit) Capsule 25 mcg PO QAM Qty: 30 0RF Continued carvedilol [Coreg] 25 mg Tablet 50 mg PO BID Rx Instructions: must administer with a meal/food aspirin 325 mg Tablet 325 mg PO QAM baclofen 10 mg tablet 10 mg PO TID amlodipine 10 mg Tablet 10 mg PO QAM pantoprazole [Protonix] 40 mg Tablet,Delayed Release (Dr/Ec) 40 mg PO QAM allopurinol 300 mg Tablet 300 mg PO QAM buspirone 15 mg tablet 15 mg PO QAM eszopiclone [Lunesta] 1 mg tablet 1 mg PO HS omega 0-khn-kab-fish oil [Fish Oil] 1,000 (120-180) mg Capsule 1 cap PO QAM prochlorperazine maleate [Compazine] 10 mg tablet 10 mg PO TID PRN (Reason: Nausea And Vomiting) sodium bicarbonate 650 mg Tablet 1,950 mg PO TID insulin lispro [Humalog KwikPen Insulin] 100 unit/mL insulin pen 30 sliding scale dose SUBCUT AC duloxetine 60 mg capsule,delayed release(DR/EC) 60 mg PO QAM pregabalin 150 mg capsule 150 mg PO TID atorvastatin 80 mg Tablet 80 mg PO QAM insulin degludec [Tresiba FlexTouch U-200] 200 unit/mL (3 mL) insulin pen 120 unit SUBCUT QAM Medical Thc 1 dose PO UD PRN (Reason: ud) tramadol 50 mg tablet 50 mg PO Q6H PRN (Reason: pain, moderate) Qty: 30 0RF sacubitril-valsartan [Entresto] 97-103 mg tablet 1 tab PO BID Discontinued furosemide [Lasix] 40 mg Tablet 40 mg PO UD Rx Instructions: Lasix 40mg PO in am and another 40mg PO 4hrs later Discharge Orders: Discharge Order (Routine); Ordered 04/10/24 Ordered By: Nathaly Francisco Admission Data Admit Date/Time: 04/08/24 05:39 Attending Provider: Nathaly Francisco Admit Provider: Lazaro Roth Primary Care Provider: Wiliam Garsia Other Providers: Lazaro Roth; Julio Andrade Stacy L.; Emmanuel Bergeron; Francisco Watson; Carolyn Moreland; Kate Rodriguez; Yeyo Ricardo; Laurent Hodge; Ed England Other Interventions: Discharge Summary Assessment (RN) Last Done: 04/10/24 13:23
== END 2024-04-10 15:34 | disposition home or self-care (01) | DRG 558 ==
LOC: ED 01:36 → SUATTDRO 05:39 → EDINP 05:39 → 2N 16:51
DX: E78.5 Hyperlipidemia, unspecified; M54.2 Cervicalgia; Z79.899 Other long term (current) drug therapy; E04.2 Nontoxic multinodular goiter; E11.42 Type 2 diabetes mellitus with diabetic polyneuropathy; N17.9 Acute kidney failure, unspecified; K21.9 Gastro-esophageal reflux disease without esophagitis; Z91.030 Bee allergy status; E11.65 Type 2 diabetes mellitus with hyperglycemia; Z79.82 Long term (current) use of aspirin; Z88.8 Allergy status to other drugs, medicaments and biological substances; Z87.891 Personal history of nicotine dependence; I16.0 Hypertensive urgency; E87.22 Chronic metabolic acidosis; I50.32 Chronic diastolic (congestive) heart failure; M75.121 Complete rotator cuff tear or rupture of right shoulder, not specified as traumatic; I13.0 Hypertensive heart and chronic kidney disease with heart failure and stage 1 through stage 4 chronic kidney disease, or unspecified chronic kidney disease; E11.22 Type 2 diabetes mellitus with diabetic chronic kidney disease; Z98.890 Other specified postprocedural states; E83.52 Hypercalcemia; Z79.4 Long term (current) use of insulin; N18.32 Chronic kidney disease, stage 3b

== ENCOUNTER 2024-08-08 14:04 | Inpatient (IN) ==
--- NOTE | 2024-08-08 14:27 | Emergency Department Note ---
Impression & Plan Acute hyperkalemia, OK (acute kidney injury), Diarrhea, Weakness ED Provider Note NAME: AMBIKA CORCORAN AGE: 49 SEX: F : 1975 ARRIVES VIA: Walk-In INFORMANT: Patient ED PROVIDER(S): Fernando Todd DO CHIEF COMPLAINT: Abnormal renal function and potassium HPI: Patient is a 49-year-old female with a past medical history as SBO, OK, diabetes, hypertension, hyperlipidemia, presents to the ER for abnormal blood work. She was called and instructed come in by hematology she had blood work done and her potassium was elevated and so was her creatinine. She notes she has had diarrhea over the past 4 days. She been going about 12 times a day. She denies any headache or change in vision. No chest pain or shortness of breath. She does feel weak and rundown. She is still making urine. Denies any dysuria, urgency, or frequency. No other exacerbating or remitting factors. ADDITIONAL HISTORY OBTAINED: Per HPI Chronic Medical/Social Conditions Affecting Care: Per HPI PAST MEDICAL HISTORY:See Below PAST SURGICAL HISTORY:See Below FAMILY HISTORY:See Below SOCIAL HISTORY:See Below HOME MEDICATIONS:See Below ALLERGIES:See Below VITALS:See Below PHYSICAL EXAMINATION: GENERAL: Sitting up in bed, alert, well appearing, well nourished, no distress, non-toxic EYE EXAM: normal conjunctiva. OROPHARYNX: no exudate, no erythema, lips, buccal mucosa, and tongue normal and mucous membranes are moist NECK: supple, no nuchal rigidity, no adenopathy, non-tender LUNGS: Clear to auscultation. Normal chest wall mechanics HEART: no murmurs, S1 normal and S2 normal ABDOMEN: abdomen soft, non-tender, normo-active bowel sounds, no masses, no rebound or guarding. BACK: Back is symmetrical on inspection and there is no deformity, no midline tenderness, no CVA tenderness. SKIN: no rashes and no bruising UPPER EXTREMITIES: upper extremities are grossly normal. LOWER EXTREMITIES: No pitting edema. NEURO EXAM: Normal sensorium, cranial nerves II-XII grossly intact, normal speech, no gross weakness of arms, no gross weakness of legs. MEDICAL DECISION MAKING: Patient is a 49-year-old female who presents ER for past medical history of CKD and diabetes for abnormal blood work. IV was established and blood work was obtained. Labs show leukocytosis of 10.9. Hemoglobin 10.4. BMP with a potassium of 6.9 on i-STAT which came back at 6.8 on the blood work. CO2 at 15. No gap. Glucose was slightly up. LFTs and bilirubin were unremarkable. Lipase mildly up at 180. UA was clean. Patient has been having persistent diarrhea. No belly pain. She was given 2 L Normosol. She was placed on the bicarb drip. She was given 2 A of bicarb, 2 g of calcium gluconate. She was also given potassium binder. Patient was discussed with nephrology. They agreed with the management and bicarb drip. They recommended a rate of 150. Discussed with the hospitalist for further evaluation management treatment. Consults/Care Managements Discussions: Per MDM Triage Nursing notes reviewed. Limited review of prior medical records performed Vital Signs: reviewed and remarkable for hypotension Differential diagnosis: Infection, dehydration, metabolic abnormality, hypo/hyperglycemia, electrolyte disturbance, anemia, hypoxia, cardiac sources, intracerebral event, toxicologic, neurologic, as well as other pathologies. ER treatment provided: See below Diagnostics interpreted by me include EKG and cardiac monitoring as listed below: -Cardiac Monitoring: An order was placed for continuous cardiac monitoring. The monitor shows a rate of 80 with sinus rhythm. -ECG: Sinus rhythm rate 80 Normal axis No PVCs QTc 378 -Laboratory studies:Interpreted by me as stated above in MDM and shown below. Imaging studies: Xrays: As interpreted by me:none CTs show: none Procedures:none Critical Care: I have personally spent 75 minutes of critical care time in the direct management of this patient. This includes bedside care, interpretation of diagnostic studies, and testing, discussion with consultants, patient, and family members, and other required patient management activities. This 75 minutes is in excess of all separately billable procedures. Past Med/Surg History Problem List (Updated 08/08/24 @ 19:39 by Fernando Todd DO) Weakness (Acute) Diarrhea (Acute) OK (acute kidney injury) (Acute) Acute hyperkalemia (Acute) Ileus Resistant hypertension Small bowel obstruction Acute kidney injury superimposed on stage 4 chronic kidney disease Acute hyperkalemia (Acute) Acute renal failure (Acute) Pancreatitis (Acute) Hyperkalemia Right shoulder pain Asymptomatic hypertensive urgency History of congestive heart failure Cervical stenosis of spinal canal Depression with anxiety Hyperparathyroidism Chronic renal disease, stage 3, moderately decreased glomerular filtration rate (GFR) between 30-59 mL/min/1.73 square meter Diabetic nephropathy associated with type 2 diabetes mellitus Diabetes type 2, uncontrolled Diabetic peripheral neuropathy associated with type 2 diabetes mellitus Ketosis prone diabetes Dysesthesia Dyslipidemia Hypercalcemia Hypertension Nephrolithiasis Vitamin D deficiency Acidosis, metabolic Anemia of chronic disease GERD (gastroesophageal reflux disease) Medical History Acute kidney injury superimposed on CKD History of endometriosis History of renal dialysis (04/2017) - [facility] - ARF 2/2 DKA Hx of Clostridium difficile infection 2012 - treated, no problems since Chronic nausea Surgical History History of esophagogastroduodenoscopy (EGD) Hx of colonoscopy History of open reduction and internal fixation (ORIF) procedure (2018) left fibula Hx of tracheostomy (2013) R/T COMPLICATIONS AFTER ILEOSTOMY REVERSAL SURGERY IN 2011; HAS SINCE BEEN REVERSED History of rotator cuff surgery (2017) RT History of lumbar spinal fusion (2006) History of reversal of ileostomy (2012) History of ileostomy (2012) Status post cholecystectomy (2017) "cholelithiasis" Status post partial colectomy (2012) "for C diff colitis" Family History Mother Diabetes Other No family history of adverse response to anesthesia Social History Smoking Status: Never smoker Tobacco Type: Cigarettes Cigarettes Per Day: 5; Second Hand Exposure: No; Do You Dip or Chew Tobacco: No; Tobacco Cessation Education Requested by Patient: No Hx Alcohol Use: No Hx Substance Use: No Preferred Language: Dutch Communication Ability: Effective Vacuum Pan Operator Required: No Beliefs That Will Affect Care: None marital status: Current Living Situation: Significant Other Other Information That Helps Us Care for You: No Feels Safe at Home: Yes Safety Concerns: Feels Safe At This Time Assistive Devices: None Allergies Allergies Allergy/AdvReac Type Severity Reaction Status Date / Time bee venom protein (honey bee) Allergy Intermediate RED, SHORT Verified 07/19/24 16:18 OF BREATH hydralazine AdvReac Intermediate Lower Verified 07/19/24 16:18 Extremity Edema lorazepam AdvReac Intermediate Agitated Verified 07/28/24 07:07 Home Meds Home Medications Medication Instructions Recorded Confirmed allopurinol 300 mg tablet 300 mg PO QAM 01/24/24 08/08/24 amlodipine 10 mg tablet 10 mg PO QAM 01/24/24 08/08/24 aspirin 325 mg tablet 325 mg PO QAM 01/24/24 08/08/24 buspirone 15 mg tablet 15 mg PO QAM 01/24/24 08/08/24 duloxetine 60 mg capsule,delayed 60 mg PO QAM 01/24/24 08/08/24 release eszopiclone 1 mg tablet (Lunesta) 1 mg PO HS 01/24/24 08/08/24 omega 8-sco-pyy-fish oil 1,000 mg 1 cap PO QAM 01/24/24 08/08/24 (120 mg-180 mg) capsule (Fish Oil) pantoprazole 40 mg tablet,delayed 40 mg PO QAM 01/24/24 08/08/24 release (Protonix) prochlorperazine maleate 10 mg 10 mg PO TID PRN Nausea And 01/24/24 08/08/24 tablet (Compazine) Vomiting sodium bicarbonate 650 mg tablet 1,950 mg PO TID 01/24/24 08/08/24 Medical Thc 1 dose PO UD PRN NEEDED 03/06/24 08/08/24 atorvastatin 80 mg tablet 80 mg PO QAM 03/06/24 08/08/24 insulin degludec 200 unit/mL (3 120 unit subcut QAM 03/06/24 08/08/24 mL) subcutaneous pen (Tresiba FlexTouch U-200 insulin) sacubitril 97 mg-valsartan 103 mg 1 tab PO BID 03/18/24 08/08/24 tablet (Entresto) blood-glucose meter (ReliOn Prime 05/10/24 08/08/24 Meter) cholecalciferol (vitamin D3) 25 2,000 unit PO QAM 05/10/24 08/08/24 mcg (1,000 unit) capsule insulin lispro 100 unit/mL 30 sliding scale dose subcut TID 05/10/24 08/08/24 subcutaneous pen (Humalog KwikPen (U-100) Insulin) diclofenac sodium 1 % topical gel 4 g EXT TID PRN Pain 07/19/24 08/08/24 (Voltaren Arthritis Pain) lidocaine 5 % topical patch 1 patch transdermal DAILY PRN Pain 07/19/24 08/08/24 tirzepatide 2.5 mg/0.5 mL 2.5 mg subcut WK 07/19/24 08/08/24 subcutaneous pen injector (Opal) Previous Rx's Medication Instructions Recorded carvedilol 25 mg tablet 25 mg PO BIDM #30 tabs 08/01/24 Results & Data (ED) Vital Signs Vital Signs - 24 hr 08/08/24 14:12 08/08/24 14:16 08/08/24 14:31 Temperature 36.4 C L Temperature Source Temporal Artery Scan Pulse Rate 88 109 H 85 Pulse Rate from SpO2 Sensor Respiratory Rate 20 22 Respiratory Effort / Characteristics Non-Labored Spontaneous Respiratory Depth Normal Respiratory Pattern Regular Blood Pressure 98/66 L Blood Pressure Mean 76 Blood Pressure Position Sitting Pulse Oximetry 97 99 Oxygen Delivery Method Room Air Room Air Sepsis Recent Fever Within 48 Hours No Sepsis New/Unexplained Change in Mental Status N/A Sepsis Action Taken by Nursing No Action Required 08/08/24 15:03 08/08/24 15:30 08/08/24 16:09 Temperature Temperature Source Pulse Rate 83 80 130 H Pulse Rate from SpO2 Sensor 83 80 81 Respiratory Rate 23 21 23 Respiratory Effort / Characteristics Respiratory Depth Respiratory Pattern Blood Pressure Blood Pressure Mean Blood Pressure Position Pulse Oximetry 96 98 100 Oxygen Delivery Method Sepsis Recent Fever Within 48 Hours Sepsis New/Unexplained Change in Mental Status Sepsis Action Taken by Nursing 08/08/24 16:18 Temperature Temperature Source Pulse Rate 95 H Pulse Rate from SpO2 Sensor 79 Respiratory Rate 22 Respiratory Effort / Characteristics Respiratory Depth Respiratory Pattern Blood Pressure 126/69 Blood Pressure Mean 88 Blood Pressure Position Pulse Oximetry 99 Oxygen Delivery Method Sepsis Recent Fever Within 48 Hours Sepsis New/Unexplained Change in Mental Status Sepsis Action Taken by Nursing Laboratory Data 08/08/24 14:40 08/08/24 14:40 Lab Results 08/08/24 08/08/24 Range/Units 14:40 14:46 WBC 10.89 H (4.8-10.8) K/ul RBC 3.54 L (4.20-5.40) M/uL Hgb 10.4 L (12.0-16.0) g/dl POC Hgb 10.5 L (12.0-16.0) g/dl Hct 32.3 L (37.0-47.0) % POC Hct 31 L (37-47) % MCV 91.2 (80.0-100.0) fL MCH 29.4 (25.0-34.0) pg MCHC 32.2 (32.0-36.0) g/dL RDW Std Deviation 47.9 H (36.4-46.3) fL RDW Coeff of Chidi 14.5 (11.5-14.5) % Plt Count 333 (130-400) K/uL MPV 10.5 (9.4-12.4) fL Immature Gran % (Auto) 0.7 % Neut % (Auto) 66.9 % Lymph % (Auto) 22.4 % Dixon % (Auto) 7.8 % Eos % (Auto) 1.4 % Baso % (Auto) 0.8 % Neut # (Auto) 7.28 H (1.40-6.50) K/uL Lymph # (Auto) 2.44 (1.20-3.40) K/uL Dixon # (Auto) 0.85 H (0.11-0.59) K/uL Eos # (Auto) 0.15 (0.00-0.50) K/uL Baso # (Auto) 0.09 (0.00-0.20) K/uL Immature Gran # (Auto) 0.08 (0.01-0.20) K/uL POC Sodium 138 (135-144) mmol/L Sodium 134 L (136-145) mmol/L POC Potassium 6.9 H* (3.3-5.0) mmol/L Potassium 6.8 H* (3.5-5.1) mmol/L POC Chloride 115 H (101-112) mmol/L Chloride 113 H (98-107) mmol/L Carbon Dioxide 15 L (21-32) mmol/L POC Total CO2 13 L (24-31) mmol/L Anion Gap 6 (3-11) POC Anion Gap 17.0 (16-25) mmol/L POC BUN 65 H (7-18) mg/dl BUN 65 H (6-23) mg/dl Creatinine 3.70 H (0.6-1.2) mg/dl POC Creatinine 4.1 H (0.6-1.3) mg/dl Est Cr Clr Drug Dosing 19.3 ml/min eGFR 14.19 BUN/Creatinine Ratio 17.6 (10-20) Glucose 170 H (70-99(Fasting)) mg/dl POC Glucose (other) 171 H (70-99) mg/dl Calcium 9.1 (8.6-10.3) mg/dl POC Ioniz Calcium Dustin 1.24 (1.12-1.32) mmol/l Total Bilirubin 0.5 (0.2-1.0) mg/dl AST 17 (13-39) U/L ALT 31 (7-52) U/L Alkaline Phosphatase 142 H (34-104) U/L Total Protein 6.9 (6.0-8.3) gm/dl Albumin 4.1 (3.4-5.0) gm/dl Globulin 2.8 (2.5-4.0) gm/dl Albumin/Globulin Ratio 1.5 (0.9-2) Lipase 180 H (11-82) U/L Administered Medications Sodium Bicarbonate 150 meq/ (Sterile Water) 1,150 mls @ 150 mls/hr IV .Q7H40M [id number] Stop: 09/07/24 15:59 Last Admin: 08/08/24 16:45 Dose: 150 mls/hr Documented By: CHRIS Discontinued Medications Acetaminophen (Acetaminophen 325 Mg Tab) 650 mg PO NOW STA Stop: 08/08/24 17:33 Last Admin: 08/08/24 17:39 Dose: 650 mg Documented By: CHRIS Dextrose (Dextrose 50% 50 Ml Syringe) 50 ml IV NOW STA Stop: 08/08/24 14:53 Last Admin: 08/08/24 15:27 Dose: 50 ml Documented By: CHRIS Sodium Chloride (Nss) 1,000 mls @ 999 mls/hr IV .Q1H1M ONE Stop: 08/08/24 15:23 Last Infusion: 08/08/24 18:36 Dose: Infused Documented By: Infusion: 08/08/24 15:30 Dose: 0 mls/hr Documented By: Admin: 08/08/24 15:20 Dose: 999 mls/hr Documented By: CHRIS Parenteral Electrolytes (Plasma-Lyte A Ph 7.4) 1,000 mls @ 999 mls/hr IV .Q1H1M ONE Stop: 08/08/24 15:27 Last Infusion: 08/08/24 18:36 Dose: Infused Documented By: Admin: 08/08/24 15:19 Dose: 999 mls/hr Documented By: BS Calcium Gluconate () 1,000 mg in 60 mls @ 240 mls/hr IV Q15M URMILA Stop: 08/08/24 15:29 Last Infusion: 08/08/24 16:20 Dose: Infused Documented By: Admin: 08/08/24 15:50 Dose: 240 mls/hr Documented By: Infusion: 08/08/24 15:35 Dose: Infused Documented By: Admin: 08/08/24 15:20 Dose: 240 mls/hr Documented By: BS Parenteral Electrolytes (Plasma-Lyte A Ph 7.4) 1,000 mls @ 999 mls/hr IV .Q1H1M ONE Stop: 08/08/24 16:05 Last Infusion: 08/08/24 16:46 Dose: Infused Documented By: Admin: 08/08/24 15:27 Dose: 999 mls/hr Documented By: CHRIS Insulin Human Regular (Novolin-R Insulin Per Unit Charge) 10 units IV NOW STA Stop: 08/08/24 14:53 Last Admin: 08/08/24 15:24 Dose: 10 units Documented By: CHRIS Co-signed By: SAMSON Sodium Bicarbonate (Sodium Bicarb 8.4% Inj 50 Meq/50 Ml Syr) 100 meq IV NOW STA Stop: 08/08/24 14:53 Last Admin: 08/08/24 15:24 Dose: 100 meq Documented By: CHRIS Sodium Zirconium Cyclosilicate (Sodium Zirconium Cyclosilicate 10 Gm Packet) 10 gm PO NOW STA Stop: 08/08/24 16:10 Last Admin: 08/08/24 17:31 Dose: 10 gm Documented By: CHRIS Discharge Plan Visit Data Chief Complaint: Referred by Doctor Stated Complaint: BAD BLOOD, REFFERED BY DOC ED Provider: Fernando Todd Discharge Problem: Acute hyperkalemia, OK (acute kidney injury), Diarrhea, Weakness Patient Disposition: Admitted As Inpatient Condition: Serious Discharge Instructions Interventions: ED Discharge Assessment Last Done: 08/08/24 17:24 Discharge Problem: Diarrhea Qualifiers: Diarrhea type: unspecified type Qualified Code(s): R19.7 - Diarrhea, unspecified
[2024-08-08 14:54] LABS: Basophils # (auto) 0.09 K/uL (0.00-0.20); Basophils % (auto) 0.8 %; Eosinophils # (auto) 0.15 K/uL (0.00-0.50); Eosinophils % (auto) 1.4 %; Hematocrit (blood only) 32.3 % (37.0-47.0); Hemoglobin 10.4 g/dl (12.0-16.0); Immature Granulocytes # (auto) 0.08 K/uL (0.01-0.20); Immature Granulocytes % (auto) 0.7 %; Lymphocytes # (auto) 2.44 K/uL (1.20-3.40); Lymphocytes % (auto) 22.4 %; Mean Corpuscular Hemoglobin 29.4 pg (25.0-34.0); Mean Corpuscular Hgb Conc 32.2 g/dL (32.0-36.0); Mean Corpuscular Volume 91.2 fL (80.0-100.0); Mean Platelet Volume 10.5 fL (9.4-12.4); Monocytes # (auto) 0.85 K/uL (0.11-0.59); Monocytes % (auto) 7.8 %; Neutrophils # (auto) 7.28 K/uL (1.40-6.50); Neutrophils % (auto) 66.9 %; Platelet Count 333 K/uL (130-400); RDW Coefficient of Variation 14.5 % (11.5-14.5); RDW Standard Deviation 47.9 fL (36.4-46.3); Red Blood Count 3.54 M/uL (4.20-5.40); White Blood Count 10.89 K/ul (4.8-10.8)
[2024-08-08 15:01] LABS: iSTAT Creatinine 4.1 mg/dl (0.6-1.3); iSTAT Hemoglobin 10.5 g/dl (12.0-16.0); iSTAT Ionized Calcium 1.24 mmol/l (1.12-1.32); iSTAT Potassium 6.9 mmol/L (3.3-5.0)
[2024-08-08 15:19] LABS: Albumin Globulin Ratio 1.5 (0.9-2); Albumin Level 4.1 gm/dl (3.4-5.0); BUN Creatinine Ratio 17.6 (10-20); Bilirubin,Total 0.5 mg/dl (0.2-1.0); Calcium 9.1 mg/dl (8.6-10.3); Creatinine Clr Calc Pharmacy 19.3 ml/min; Globulin 2.8 gm/dl (2.5-4.0); Potassium 6.8 mmol/L (3.5-5.1); Total Protein 6.9 gm/dl (6.0-8.3)
[2024-08-08] MEDS: PLASMA-LYTE A 1,000 ML IV ONE ×2 (15:19→15:27)
[2024-08-08] MEDS: SODIUM CHLORIDE 0.9% 1,000 ML IV ONE (15:20)
[2024-08-08] MEDS: CALCIUM GLUCONATE 1,000 MG/60 ML BAG IV SCH (15:20)
[2024-08-08] MEDS: SODIUM BICARB 8.4% INJ 50 MEQ/50 ML SYR IV STA (15:24)
[2024-08-08] MEDS: NovoLIN-R INSULIN PER UNIT CHARGE IV STA (15:24)
[2024-08-08] MEDS: DEXTROSE 50% 50 ML SYRINGE IV STA (15:27)
[2024-08-08] MEDS: NA BICARBONATE 8.4% 150 MEQ in SW 1,000 ML IV SCH (16:45)
--- NOTE | 2024-08-08 17:25 | History & Physical Report ---
Date of Service August 08, 2024 Assessment & Plan (1) Acute kidney injury superimposed on stage 4 chronic kidney disease: (2) Hyperkalemia: Plan: Admit to telemetry Patient presenting by referral of outpatient safe and vault service mechanic for evaluation of abnormal renal function and hyperkalemia. Patient recently admitted [facility] 07/19 - 08/01 for OK on CKD, hyperkalemia, metabolic acidosis. Diuretics discontinued (patient had been taking both furosemide and torsemide by mistake prior to admission). K+ 6.8, creatinine 3.7 (was 1.7 on 08/01) Cheng placed for strict I/Os Patient reports diarrhea x 4 days EKG shows peaked T waves, QTc 378 S/p insulin, D50, calcium gluconate, Lokelma, IVF in the ED. bicarb drip being started as per nephrology Serial BMP q6h, daily EKG (3) Diarrhea: Plan: Patient reports multiple episodes of diarrhea over the past 4 days C. difficile and stool PCR testing (4) Resistant hypertension: Plan: HTN during last admission felt to be due to episodes of hypotension To avoid hypotension, will hold amlodipine. Also holding Entresto due to OK Continue carvedilol (5) Diabetes type 2, uncontrolled: Plan: HgbA1c 7.4 04/2024 On high dose Tresiba at home and sliding scale Glycemic pharmacy consult Update A1c with a.m. labs DVT PROPHYLAXIS SQ heparin Patient seen in collaboration with Dr. Amaro. I spent a total of 75 minutes coordinating, documenting, and providing care for this patient excluding time spent in the performance of separately billed services. This included personally reviewing all current laboratories and imaging studies, medication reconciliation, outpatient chart review, and discussion with specialists. History of Present Illness Chief Complaint: Referred by safe and vault service mechanic for abnormal blood work Primary Care Provider: Wiliam Garsia 49-year-old female with PMH HTN, DM type II, history of C. difficile colitis s/p colectomy, and other problems listed below who presents to the ED by referral of her outpatient safe and vault service mechanic for evaluation of abnormal blood work. Patient recently admitted to [facility] 07/19 - 08/01 for OK on CKD, hyperkalemia, metabolic acidosis. Diuretics discontinued (patient had been taking both furosemide and torsemide by mistake prior to admission). patient reports she had blood work done today for possible iron transfusion and was told that her kidney function was abnormal and her potassium was high and to go to the ER. Patient reports she developed diarrhea about 4 days ago. Reports she is having multiple episodes per day, up to 12 times. Denies abdominal pain and nausea. No fevers or chills. She denies chest pain and shortness of breath. No lightheadedness, dizziness, diaphoresis, syncopal events. She denies urinary symptoms. In the ED, labs show K+ 6.8, creatinine 3.7 ( was 1.7 on 08/01), bicarb 15. Patient was given IV insulin, D50, calcium gluconate, IVF, Lokelma and started on a bicarbonate drip. Allergies Allergy/AdvReac Type Severity Reaction Status Date / Time bee venom protein (honey bee) Allergy Intermediate RED, SHORT Verified 07/19/24 16:18 OF BREATH hydralazine AdvReac Intermediate Lower Verified 07/19/24 16:18 Extremity Edema lorazepam AdvReac Intermediate Agitated Verified 07/28/24 07:07 Home Medications Medication Instructions Recorded Confirmed Type allopurinol 300 mg tablet 300 mg PO QAM 01/24/24 08/08/24 History amlodipine 10 mg tablet 10 mg PO QAM 01/24/24 08/08/24 History aspirin 325 mg tablet 325 mg PO QAM 01/24/24 08/08/24 History buspirone 15 mg tablet 15 mg PO QAM 01/24/24 08/08/24 History duloxetine 60 mg capsule,delayed 60 mg PO QAM 01/24/24 08/08/24 History release eszopiclone 1 mg tablet (Lunesta) 1 mg PO HS 01/24/24 08/08/24 History omega 0-zfv-vjk-fish oil 1,000 mg 1 cap PO QAM 01/24/24 08/08/24 History (120 mg-180 mg) capsule (Fish Oil) pantoprazole 40 mg tablet,delayed 40 mg PO QAM 01/24/24 08/08/24 History release (Protonix) prochlorperazine maleate 10 mg 10 mg PO TID PRN Nausea And 01/24/24 08/08/24 History tablet (Compazine) Vomiting sodium bicarbonate 650 mg tablet 1,950 mg PO TID 01/24/24 08/08/24 History Medical Thc 1 dose PO UD PRN NEEDED 03/06/24 08/08/24 History atorvastatin 80 mg tablet 80 mg PO QAM 03/06/24 08/08/24 History insulin degludec 200 unit/mL (3 120 unit subcut QAM 03/06/24 08/08/24 History mL) subcutaneous pen (Tresiba FlexTouch U-200 insulin) sacubitril 97 mg-valsartan 103 mg 1 tab PO BID 03/18/24 08/08/24 History tablet (Entresto) blood-glucose meter (ReliOn Prime 05/10/24 08/08/24 History Meter) cholecalciferol (vitamin D3) 25 2,000 unit PO QAM 05/10/24 08/08/24 History mcg (1,000 unit) capsule insulin lispro 100 unit/mL 30 sliding scale dose subcut TID 05/10/24 08/08/24 History subcutaneous pen (Humalog KwikPen (U-100) Insulin) diclofenac sodium 1 % topical gel 4 g EXT TID PRN Pain 07/19/24 08/08/24 History (Voltaren Arthritis Pain) lidocaine 5 % topical patch 1 patch transdermal DAILY PRN Pain 07/19/24 08/08/24 History tirzepatide 2.5 mg/0.5 mL 2.5 mg subcut WK 07/19/24 08/08/24 History subcutaneous pen injector (Opal) carvedilol 25 mg tablet 25 mg PO BIDM #30 tabs 08/01/24 08/08/24 Rx Past Med/Surg History Problem List (Updated 07/28/24 @ 12:34 by Isaias Thompson MD) Ileus Resistant hypertension Small bowel obstruction Acute kidney injury superimposed on stage 4 chronic kidney disease Acute hyperkalemia (Acute) Acute renal failure (Acute) Pancreatitis (Acute) Hyperkalemia Right shoulder pain Asymptomatic hypertensive urgency History of congestive heart failure Cervical stenosis of spinal canal Depression with anxiety Hyperparathyroidism Chronic renal disease, stage 3, moderately decreased glomerular filtration rate (GFR) between 30-59 mL/min/1.73 square meter Diabetic nephropathy associated with type 2 diabetes mellitus Diabetes type 2, uncontrolled Diabetic peripheral neuropathy associated with type 2 diabetes mellitus Ketosis prone diabetes Dysesthesia Dyslipidemia Hypercalcemia Hypertension Nephrolithiasis Vitamin D deficiency Acidosis, metabolic Anemia of chronic disease GERD (gastroesophageal reflux disease) Medical History Acute kidney injury superimposed on CKD History of endometriosis History of renal dialysis (04/2017) - [facility] - ARF 2/2 DKA Hx of Clostridium difficile infection 2012 - treated, no problems since Chronic nausea Surgical History History of esophagogastroduodenoscopy (EGD) Hx of colonoscopy History of open reduction and internal fixation (ORIF) procedure (2018) left fibula Hx of tracheostomy (2013) R/T COMPLICATIONS AFTER ILEOSTOMY REVERSAL SURGERY IN 2011; HAS SINCE BEEN REVERSED History of rotator cuff surgery (2017) RT History of lumbar spinal fusion (2006) History of reversal of ileostomy (2012) History of ileostomy (2012) Status post cholecystectomy (2017) "cholelithiasis" Status post partial colectomy (2012) "for C diff colitis" Family History Mother Diabetes Other No family history of adverse response to anesthesia Social History Smoking Status: Never smoker Tobacco Type: Cigarettes Cigarettes Per Day: 5; Second Hand Exposure: No; Do You Dip or Chew Tobacco: No; Tobacco Cessation Education Requested by Patient: No Hx Alcohol Use: No Hx Substance Use: No Preferred Language: Turkmen Communication Ability: Effective After School Teacher Required: No Beliefs That Will Affect Care: None marital status: Current Living Situation: Significant Other Other Information That Helps Us Care for You: No Feels Safe at Home: Yes Safety Concerns: Feels Safe At This Time Assistive Devices: None Physical Exam Physical Exam: please refer to Dr. Amaro'a addendum for physical exam Results & Data Results & Data Vital Signs (Past 12 Hours) Vital Signs Temp Pulse Resp BP Pulse Ox O2 Del Method 08/08/24 16:33 102 H 24 128/72 100 08/08/24 16:18 95 H 22 126/69 99 08/08/24 16:09 130 H 23 100 08/08/24 15:30 80 21 98 08/08/24 15:03 83 23 96 08/08/24 14:31 85 08/08/24 14:16 109 H 22 99 Room Air 08/08/24 14:12 36.4 C L 88 20 98/66 L 97 Room Air Laboratory Results Short CBC 08/08/24 Range/Units 14:40 WBC 10.89 H (4.8-10.8) K/ul Hgb 10.4 L (12.0-16.0) g/dl Hct 32.3 L (37.0-47.0) % Plt Count 333 (130-400) K/uL BMP 08/08/24 14:40 Sodium 134 L Potassium 6.8 H* Chloride 113 H Carbon Dioxide 15 L BUN 65 H Creatinine 3.70 H Glucose 170 H Calcium 9.1 Liver Function 08/08/24 Range/Units 14:40 Total Bilirubin 0.5 (0.2-1.0) mg/dl AST 17 (13-39) U/L ALT 31 (7-52) U/L Alkaline Phosphatase 142 H (34-104) U/L Albumin 4.1 (3.4-5.0) gm/dl Code Status & VTE Plan VTE Prophylaxis Plan VTE Prophylaxis will be ordered: Yes Supervising Physician Co-Signing Physician Notes Patient is a 49-year-old female with history of diabetes mellitus, history of C. difficile s/p colectomy, CKD stage IV, mood disorder and other medical problems presents for evaluation after noted to have an abnormal blood work as outpatient. Patient states that her diuretics were discontinued last admission. She admits to having diarrhea for the last 4 days and reports taking antibiotic course recently for bronchitis. Patient denies any chest pain, dyspnea, palpitations, abdominal pain, nausea, vomiting. Please review HPI for complete details of presentation. I personally reviewed blood work and imaging studies. Blood work showed mild leukocytosis 10.89, normocytic anemia with hemoglobin 10.4, hematocrit 32.3, potassium 6.9, sodium 134, bicarbonate 15, BUN 65, creatinine 3.7, lipase 180. Urinalysis currently pending. Patient reports her urine output has been unchanged. Physical Exam: Vitals signs as noted above General Appearance:Obese, no apparent distress Head: normocephalic, Atraumatic Eyes: normal inspection, EOMI Neck: supple, Trachea midline Respiratory/Chest: Normal breath sounds, CTA, No accessory muscle use Cardiovascular: S1, S2, No murmur Abdomen/GI:Soft, Non tender, + protuberant, bowel sounds present Extremities/Musculoskeletal:normal inspection, no edema Neurologic/Psych:AAOX3, grossly no focal neurological deficits Skin: normal color, warm OK on CKD stage IV Hyperkalemia Metabolic acidosis Abnormal EKG with T wave changes Diarrhea Hypotensive on presentation Patient received calcium gluconate, Lokelma, D5 with insulin, and was started on bicarbonate drip Agree with holding Entresto Avoid nephrotoxic agents as able Nephrology consulted Monitor BMP, will repeat EKG as needed Check stool studies to rule out C. difficile I personally interviewed and examined the patient at bedside. I have reviewed the advanced practitioner's documentation on the date of service referred in note and agree with plan. Patient's care is coordinated with Maida Dee NP. Please refer to the documentation above for details of patient's presentation and for discussion of other issues. I spent a total of 32minutes coordinating, documenting, and providing care for this patient excluding time spent in the performance of separately billed services or time spent by another provider/QHP. (3) Diarrhea Diarrhea type: unspecified type Qualified Code(s): R19.7 - Diarrhea, unspecified (5) Diabetes type 2, uncontrolled Glycemic state: with hyperglycemia Qualified Code(s): E11.65 - Type 2 diabetes mellitus with hyperglycemia
[2024-08-08] MEDS: SODIUM ZIRCONIUM CYCLOSILICATE 10 GM PACKET PO STA (17:31)
[2024-08-08] MEDS: ACETAMINOPHEN 325 MG TAB PO STA (17:39)
[2024-08-08] MEDS ORDERED: DEXTROSE 50% 50 ML SYRINGE IV PRN (18:28)
[2024-08-08] MEDS ORDERED: CARBOHYDRATES FOR HYPOGLYCEMIA PO PRN (18:28)
[2024-08-08] MEDS ORDERED: PHARMACY GLYCEMIC MGMT CONSULT PRN (18:28)
[2024-08-08] MEDS ORDERED: GLUCOSE 40% GEL 15 GM TUBE PO PRN (18:28)
[2024-08-08] MEDS ORDERED: GLUCAGON FOR INJ 1 MG VIAL SQ PRN (18:28)
[2024-08-08] MEDS ORDERED: GLUCOSE 10 TAB/TUBE PO PRN (18:28)
[2024-08-08 19:04] LABS: Appearance Urine Clear (Clear); Bacteria Urine Automated None Seen (None Seen); Bilirubin Urine Negative (Negative); Blood Urine Negative (Negative); Cast Urine Automated 0-2 /lpf (0-2); Color Urine Yellow; Epithelial Cell Urine Auto 0-2 /hpf (0-2); Glucose Urine UA Trace (Negative); Ketones Urine Negative (Negative); Leukocyte Esterase Urine Negative (Negative); Nitrite Urine Negative (Negative); Protein Urine 3+ (Negative); RBC Urine Automated 0-2 /hpf (0-2); Specific Gravity Urine 1.013 (1.000-1.030); Urobilinogen Urine Negative (Negative); WBC Urine Automated 0-5 /hpf (0-5)
--- OUTSIDE RECORDS SUMMARY | 2024-08-08 20:35 | External Medical Summary | Summary of Care ---
Author Name Unknown Organization [facility] Address [address] [place] [address] Phone [phone] Care Team Providers Care Night Cleaner Name Role Phone Wiliam Garsia MD Primary Care Provider + [phone] Reason for Visit * Reason Onset Date Comments Advice 08/05/2024 Encounter Details Date Type Department Care Team (Late st Contact Info) Description 08/05/2024 Telephone Nephrology, [facility] [address] [place] [address] Services, Scheduling [address] [place] [address] Advice Allergies Active Allergy Reactions Criticality Noted Date Comments Bee Venom 07/08/2021 Hydralazine Edema Other 11/22/2022 documented as of this encounter (statuses as of 08/07/2024) Medications CYMBALTA 60 MG PO CPEP Take [...] in the AM 2 at bedtime Active Pantoprazole Sodium 40 MG Oral Tablet [...] by mouth in the morning. 3 Active Eszopiclone 1 MG Oral Tablet Take [...] EVERY MORNING 90 Tablet 3 4 Active Chlorthalidone 25 MG Oral Tablet (Hygroton)Indica tions:Localized edema,Chronic kidney disease, stage 3b (HCC),HTN, goal below 130/80 Take 0.5 Tablets by mouth in the morning. In the morning.. 5 Active Spironolactone 25 MG Oral Tablet (Aldactone)Indic ations:Localized edema,Chronic kidney disease, stage 3b (HCC),HTN, goal below 130/80 Take 0.5 Tablets by mouth in the morning. 15 Tablet 5 5 Active Veltassa 8.4 GM Oral Packet (Patiromer Sorbitex Calcium)Indicati ons:Localized edema,Chronic kidney disease, stage 3b (HCC),HTN, goal below 130/80 Take 8.4 g by mouth in the morning. 30 Each 3 5 Active Additional Information Patient not taking.Reported on 07/03/2024 Torsemide 10 MG Oral Tablet (Demadex)Indicat ions:Hyperkalemi a Take 2 Tablets by mouth in the morning. 60 Tablet 5 Active documented as of this encounter (statuses as of 08/07/2024) Active Problems Problem Noted Date Diagnosed Date Diabetes mellitus with stage 4 chronic kidney di sease 07/22/2024 Overview: Per CKD protocol Ketosis prone diabetes 06/13/2022 Uncontrolled type 1 diabetes mellitus with diabetic [...] as of this encounter (statuses as of 08/07/2024) Resolved Problems Problem Noted Date Diagnosed Date Resolved Date Chronic kidney disease, stage 3b 07/19/2021 07/25/2024 Overview: Per CKD protocol Chronic kidney disease, stage 3a 07/20/2020 07/22/2021 Overview: Per CKD protocol Acute kidney injury 07/15/2012 11/23/19 23 Salmonella bacteremia 09/13/20112017 Toxic encephalopathy 09/11/2011 012 SIRS due to infectious proce ss with acute organ dysfunction 09/10/2011 06/19/2017 Septicemia due to Gram-negative organism 09/10/2011 06/19/2017 OK (acute kidney injury) 09/10/2011 Acidosis 09/10/2011 09/14/2011 Hypoxemia 09/10/2011 09/14/2011 documented as of this encounter (statuses as of 08/07/2024) Immunizations Name Administration Dates Next Due COVID-19 mRNA, LNP-s, No Pre serve, 2-Dose Series (disco volante) 06/23/2020,06/02/2020 Pneumococcal Polysaccharide PPV23 (Pneumovax) Seasonal Influenza [...] encounter Miscellaneous Notes * Telephone Encounter - Janel Glynn OSA - 08/05/2024 11:13 AM EDT Pt is requesting Sally give her a call as soon as she can. Pt was in hospital for 2 week and needs a doctors note but hospital told her to call the pcp. She hasn't seen PCP in some time and wants to know if she can get it from Dr. Lucas. Can contact pt through portal or phone. CELINA Potts documented in this encounter Plan of Treatment Upcoming Encounters Date Type Department Care Team (Late st Contact Info) Description 08/27/2024 8:00 AM EDT Office Visit Nephrology, [facility] [address] [place] [address] ZemaitisKate PA-C [address] [facility] [place] [address] Health Maintenance Due Date Last Done Comments Depression Screening 1985 HIV Screening 1988 B-12 1991 Diabetic Foot Exam 1991 Hepatitis C Screening 1991 Hepatitis B Vaccine (1 of 3 - 19+ 3-dose series) 1992 HPV/Co-Test 2003 Pneumococcal Vaccine: 50+ Years (2 of 2 - PCV) 06/10/2009 06/10/2008 Cervical Cancer Screening 06/04/2010 Pap Smear 06/04/2010 06/04/2007 Mammogram 2013 DTap/Tdap Vaccines (2 - Td or Tdap) 09/20/2017 09/21/2007 Cologuard 2018 Colonoscopy 2018 Colorectal Cancer Screening 2018 Fecal Occult Blood Test 2018 Sigmoidoscopy 2018 Zoster Vaccines (1 of 2) 2023 COVID-19 Vaccine ( season) 2023 01/17/2023, 08/13/2021, 01/08/2021, Additional history exists HbA1c 03/13/2024 09/12/2023, 11/0 12/2022, 06/11/2021, Additional history exists GFR 12/28/2024 06/27/2024, 05/12, 04/29/2024, Additional history exists Diabetic Eye Exam 02/25/2025 02/26/2024, 02/26/2024 Nephrology Referral 04/25/2025 04/25/2024 Albumin/Creatinine Ratio 04/29/2025 025, 03/27/2024, 02/16/2024, Additional history exists Hgb 04/29/2025 04/29/2024, 11/0 12/2022, 05/30/2022, Additional history exists PTH 04/29/2025 04/29/2024, 03/10, 07/10/2023, Additional history exists Phosphate 04/29/2025 04/29/2024, 03/10, 11/18/2022, Additional history exists Lipid Panel 02/04/2029 02/05/2024, 10/08, 07/05/2019, Additional history exists Influenza Vaccine (FLU shot) Completed , 11/28/2019, 12/29/2008 HPV (Gardasil) Vaccine Aged Out No lo nger eligible based on patient's age to complete this topic MENINGOCOCCAL (MENACTRA/MENVEO) Aged Out No longer eligible based on patient's age to complete this topic Meningitis B Vaccine (Bexsero/Trumemba) Aged Out No longer eligible based on [...] 2:38 PM 09/20/2011 5:28 PM This order r eflects the patients wishes and were consensually agreed upon. Question Answer Comments Discussion of Advance Directives occurred with: Not Discussed Does the patient have a Living Will? No Does the patient have Health Care Power of Attor albert? No Care Teams Night Cleaner Relationship Specialty Start Date End Date Wiliam Garsia MD [address] [place] [address] PCP - General Family Medicine 05/05/17 documented as of this encounter
[2024-08-08] MEDS ORDERED: LANTUS PER UNIT CHARGE SQ SCH (21:00)
[2024-08-08 21:07] LABS: BUN Creatinine Ratio 18.9 (10-20)
[2024-08-08] MEDS: INSULIN ASPART PER UNIT CHARGE SC SCH (21:41)
[2024-08-08] MEDS: HEPARIN SOD 5,000 UNIT/0.5 ML VIAL SQ SCH (21:42)
[2024-08-08] MEDS: ESZOPICLONE 1 MG TAB PO SCH (21:42)
[2024-08-08] MEDS: BACLOFEN 10 MG TAB PO STA (22:25)
--- OUTSIDE RECORDS SUMMARY | 2024-08-08 23:34 | External Medical Summary | Summary of Care ---
Author Name Unknown Organization [facility] Address [address] [place] [address] Phone [phone] Care Team Providers Care Property Specialist Name Role Phone Wiliam Garsia MD Primary Care Provider + [phone] Reason for Visit * Reason Onset Date Comments Test Results 08/08/2024 Encounter Details Date Type Department Care Team (Late st Contact Info) Description 08/08/2024 Telephone [facility]Kar [address] [place] [address] Gracie Lucas MD [address] [place] [address] Test Results Allergies Active Allergy Reactions Criticality Noted Date Comments Bee Venom 07/08/2021 Hydralazine Edema Other 11/22/2022 documented as of this encounter (statuses as of 08/08/2024) Medications CYMBALTA 60 MG PO CPEP Take [...] by mouth in the morning. 60 Tablet Active documented as of this encounter (statuses as of 08/08/2024) Active Problems Problem Noted Date Diagnosed Date [...] as of this encounter (statuses as of 08/08/2024) Resolved Problems Problem Noted Date Diagnosed Date [...] as of this encounter (statuses as of 08/08/2024) Immunizations Name Administration Dates Next Due COVID-19 [...] Telephone Encounter - Sally Champion RN - 08/08/2024 11:15 AM EDT Call received from Vicenta who is anurse at [facility] in [place]. Pt was there for iron infusion this morning and had lab tests done. Called with critical labs of potassium 6.5,BUN 61 and creat 3.9. GFR is 13. She is going to call ptto go to ER due to critical labs and will recommend [facility]> Dr Lucas notified of critical labs and ER recommendation. documented in this encounter Plan of Treatment Upcoming Encounters Date Type Department Care Team (Late st Contact Info) Description 08/27/2024 8:00 AM EDT Office Visit Nephrology, [facility] [address] [place], [place] [address] ZeKate nolan PA-C [address] [place] [address] Health Maintenance Due Date Last Done Comments [...] Power of Attor albert? No Care Teams Property Specialist Relationship Specialty Start Date End Date Wiliam Garsia MD [address] [place] [address] PCP - General Family Medicine 05/05/17 documented as of this encounter
--- NOTE | 2024-08-09 00:35 | Communication Note ---
Date of Service: August 08, 2024 Patient asking RN for home baclofen 10 mg 3 times daily home Rx. Baclofen 2.5 mg trial dose for now given decreased kidney function. 2.5 mg p.o. twice daily if tolerated with current kidney function.
[2024-08-09 02:34] LABS: Calcium 8.2 mg/dl (8.6-10.3); Potassium 4.8 mmol/L (3.5-5.1)
[2024-08-09 02:40] LABS: Creatinine Clr Calc Pharmacy 22.2 ml/min
[2024-08-09 08:25] LABS: Adenovirus F 40/41 PCR Not Detected (NotDetected); Astrovirus PCR Not Detected (NotDetected); Campylobacter PCR Not Detected (NotDetected); Cryptosporidium PCR Not Detected (NotDetected); Cyclospora cayetanensis PCR Not Detected (NotDetected); Entamoeba histolytica PCR Not Detected (NotDetected); Enteroaggregative E.coli(EAEC) Not Detected (NotDetected); Enteropathogenic E.coli (EPEC) Not Detected (NotDetected); Enterotoxigenic E.coli (ETEC) Not Detected (NotDetected); Giardia lamblia PCR Not Detected (NotDetected); Norovirus GI/GII PCR Not Detected (NotDetected); Plesiomonas shigelloides PCR Not Detected (NotDetected); Rotavirus A PCR Not Detected (NotDetected); Salmonella PCR Not Detected (NotDetected); Sapovirus PCR Not Detected (NotDetected); Shiga-like Toxin E.coli (STEC) Not Detected (NotDetected); Shigella/Enteroinvasive E.coli Not Detected (NotDetected); Vibrio cholerae PCR Not Detected (NotDetected); Vibrio species PCR Not Detected (NotDetected); Yersinia enterocolitica PCR Not Detected (NotDetected)
--- NOTE | 2024-08-09 08:32 | Nephrology Consultation ---
Date of Consultation August 09, 2024 Assessment & Plan (1) OK (acute kidney injury): nonoliguric prerenal OK on CKD 4. Presenting creatinine 3.7, improved to 3 today. Prerenal etiology in the setting of severe diarrhea; notably, diarrhea brought her in to the hospital at last admission as well less than a month ago >>>Changed bicarb drip to 1/2 NS w/ 75 mEq/L sodium bicarb at 125 mL hourly no indication for urgent dialysis Daily basic metabolic panel strict I/O though damico can at this point be removed >>ensure OP GI follow up > [place] to help w/ diarrhea/bowel sx >>will obtain CXR given HF hx and aggressive IV fluid resuscitation and diminished lung sounds (2) Hyperkalemia: Presenting potassium 6.8, down to 4.6 today with medical therapy Change to bicarb rich fluids as above Continue dialysis diet/low potassium diet (3) Diarrhea: resolving; gi f/u as above History of Present Illness Reason for Consultation: OK, hyperkalemia Requesting Physician: Dr Amaro Attending Physician: Varghese Rivera MD History of Present Illness 49 y/o F whom I'm asked to see for OK and hyperkalemia was sent to hospital yesterday after outpatient labs showed hyperkalemia and acute kidney injury. Past medical history includes type 2 diabetes, multifactorial chronic metabolic acidosis with ketosis-prone recurrent DKA remotely and c/b acid base status changes related to colectomy and potentially to RTA, class 1 obesity, CKD 4, resistant hypertension, remote history of C. difficile colitis status post total colectomy with 2012 ileostomy reversal; June 2021 hypertensive emergency admission. Also with heart failure with preserved ejection fraction and few details (follows with [facility] cardiology [facility]). Also recently admitted here July 19 to 2024 for acute renal failure with small bowel obstruction managed conservatively; presenting creatinine 6 with a potassium of 6.8 and bicarb 11 after a week of diarrhea prior to admission. Creatinine at discharge 1.8 with potassium 3.5 and bicarb 21. Discharged home on amlodipine 10 mg daily, full dose aspirin, sodium bicarbonate 3 tabs p.o. 3 times daily, Entresto, chlorthalidone 12.5 mg daily, spironolactone 12.5 mg daily, torsemide 20 mg daily, Coreg 25 mg twice daily. She does not believe she was taking torsemide after d/c; notes may have missed it on her list. AFter d/c, patient developed watery diarrhea up to 12 bowel movements daily for 4 days prior to presentation. She had outside labs done and was advised to come to the ER. Presenting creatinine 3.7 with potassium 6.8; improved to 4.6 and 3 this morning. Her presenting electrocardiogram had no acute potassium related changes; she received bicarbonate, insulin, and 2 L of normal saline and was then started on a bicarbonate drip. Patient seen and evaluated midday: Denies shortness of breath, nausea vomiting. Has had 1 loose bowel movement as of midday today and none further. No lower extremity edema. No rash; no fever chills rigors. No orthostatic or presyncopal symptoms or falls. No chest pain or palpitations or confusion. no abd pain. Allergies Allergy/AdvReac Type Severity Reaction Status Date / Time bee venom protein (honey bee) Allergy Intermediate RED, SHORT Verified 07/19/24 16:18 OF BREATH hydralazine AdvReac Intermediate Lower Verified 07/19/24 16:18 Extremity Edema lorazepam AdvReac Intermediate Agitated Verified 07/28/24 07:07 Home Medications Medication Instructions Recorded Confirmed Type allopurinol 300 mg tablet 300 mg PO QAM 01/24/24 08/08/24 History amlodipine 10 mg tablet 10 mg PO QAM 01/24/24 08/08/24 History aspirin 325 mg tablet 325 mg PO QAM 01/24/24 08/08/24 History buspirone 15 mg tablet 15 mg PO QAM 01/24/24 08/08/24 History duloxetine 60 mg capsule,delayed 60 mg PO QAM 01/24/24 08/08/24 History release eszopiclone 1 mg tablet (Lunesta) 1 mg PO HS 01/24/24 08/08/24 History omega 0-nvz-yxo-fish oil 1,000 mg 1 cap PO QAM 01/24/24 08/08/24 History (120 mg-180 mg) capsule (Fish Oil) pantoprazole 40 mg tablet,delayed 40 mg PO QAM 01/24/24 08/08/24 History release (Protonix) prochlorperazine maleate 10 mg 10 mg PO TID PRN Nausea And 01/24/24 08/08/24 History tablet (Compazine) Vomiting sodium bicarbonate 650 mg tablet 1,950 mg PO TID 01/24/24 08/08/24 History Medical Thc 1 dose PO UD PRN NEEDED 03/06/24 08/08/24 History atorvastatin 80 mg tablet 80 mg PO QAM 03/06/24 08/08/24 History insulin degludec 200 unit/mL (3 120 unit subcut QAM 03/06/24 08/08/24 History mL) subcutaneous pen (Tresiba FlexTouch U-200 insulin) sacubitril 97 mg-valsartan 103 mg 1 tab PO BID 03/18/24 08/08/24 History tablet (Entresto) blood-glucose meter (ReliOn Prime 05/10/24 08/08/24 History Meter) cholecalciferol (vitamin D3) 25 2,000 unit PO QAM 05/10/24 08/08/24 History mcg (1,000 unit) capsule insulin lispro 100 unit/mL 30 sliding scale dose subcut TID 05/10/24 08/08/24 History subcutaneous pen (Humalog KwikPen (U-100) Insulin) diclofenac sodium 1 % topical gel 4 g EXT TID PRN Pain 07/19/24 08/08/24 History (Voltaren Arthritis Pain) lidocaine 5 % topical patch 1 patch transdermal DAILY PRN Pain 07/19/24 08/08/24 History tirzepatide 2.5 mg/0.5 mL 2.5 mg subcut WK 07/19/24 08/08/24 History subcutaneous pen injector (Zanaunjaro) carvedilol 25 mg tablet 25 mg PO BIDM #30 tabs 08/01/24 08/08/24 Rx baclofen 10 mg tablet 10 mg PO TID 08/08/24 08/08/24 History Patient History Medical History Acute kidney injury superimposed on CKD History of endometriosis History of renal dialysis (04/2017) - [facility] - ARF 2/2 DKA Hx of Clostridium difficile infection 2012 - treated, no problems since Chronic nausea Surgical History History of esophagogastroduodenoscopy (EGD) Hx of colonoscopy History of open reduction and internal fixation (ORIF) procedure (2018) left fibula Hx of tracheostomy (2013) R/T COMPLICATIONS AFTER ILEOSTOMY REVERSAL SURGERY IN 2011; HAS SINCE BEEN REVERSED History of rotator cuff surgery (2017) RT History of lumbar spinal fusion (2006) History of reversal of ileostomy (2012) History of ileostomy (2012) Status post cholecystectomy (2017) "cholelithiasis" Status post partial colectomy (2012) "for C diff colitis" Family History Mother Diabetes Other No family history of adverse response to anesthesia Social History Smoking Status: Never smoker Tobacco Type: Cigarettes Cigarettes Per Day: 5; Second Hand Exposure: No; Do You Dip or Chew Tobacco: No; Tobacco Cessation Education Requested by Patient: No Hx Alcohol Use: No Hx Substance Use: No Preferred Language: Gabonese Communication Ability: Effective Environmental Solutions Engineer Required: No Beliefs That Will Affect Care: None marital status: Current Living Situation: Significant Other Other Information That Helps Us Care for You: No Feels Safe at Home: Yes Safety Concerns: Feels Safe At This Time Assistive Devices: None Review of Systems 2 Review of Systems: All systems reviewed & are unremarkable except as noted in HPI & below Physical Exam 2 Constitutional: well developed and well nourished Eyes: EOM intact bilaterally ENMT: Mouth: + dry oral mucous membranes Respiratory: normal respiratory effort Auscultation: + diminished lung sounds Gastrointestinal (Abdomen): Inspection/Auscultation: + abdomen distended (slight) and normal bowel sounds Percussion/Palpation: abdomen soft; abdomen nontender Musculoskeletal: Extremities: strength 5/5 throughout Skin: no rashes, warm and dry Neurologic: pizarro, fluent speech, no tremor Results & Data Vital Signs (Past 12 Hours) Vital Signs Temp Pulse Pulse Resp BP Pulse Ox O2 Del Method 08/09/24 07:48 36.8 C 84 18 120/81 96 Room Air 08/09/24 07:15 79 08/09/24 03:21 36.7 C 81 18 112/74 95 Room Air 08/09/24 00:14 86 08/08/24 23:11 36.8 C 83 19 124/77 96 Room Air Laboratory Results 08/09/24 08:16 08/09/24 08:16 Diagnostic Findings no admission images (3) Diarrhea Diarrhea type: unspecified type Qualified Code(s): R19.7 - Diarrhea, unspecified
[2024-08-09 08:34] LABS: Hematocrit (blood only) 29.1 % (37.0-47.0); Hemoglobin 9.6 g/dl (12.0-16.0); Mean Corpuscular Hemoglobin 29.4 pg (25.0-34.0); Mean Corpuscular Volume 89.3 fL (80.0-100.0); Mean Platelet Volume 10.8 fL (9.4-12.4); Platelet Count 275 K/uL (130-400); RDW Coefficient of Variation 14.2 % (11.5-14.5); RDW Standard Deviation 46.2 fL (36.4-46.3); Red Blood Count 3.26 M/uL (4.20-5.40)
[2024-08-09 08:45] LABS: Estimated Average Glucose 171 mg/dl; Hemoglobin A1C 7.6 % (4.5-5.6)
[2024-08-09] MEDS: ASPIRIN 325 MG ECTAB PO SCH (08:49)
[2024-08-09 08:50] LABS: Anion Gap 7 (3-11); BUN Creatinine Ratio 19.3 (10-20); Blood Urea Nitrogen 57 mg/dl (6-23); Calcium 8.5 mg/dl (8.6-10.3); Carbon Dioxide 24 mmol/L (21-32); Chloride 107 mmol/L (98-107); Creatinine Clr Calc Pharmacy 24.1 ml/min; Glucose 147 mg/dl (70-99(Fasting)); Potassium 4.6 mmol/L (3.5-5.1); Sodium 138 mmol/L (136-145)
[2024-08-09] MEDS: busPIRone 15 MG TAB PO SCH (08:50)
[2024-08-09] MEDS: ATORVASTATIN 40 MG TAB PO SCH (08:50)
[2024-08-09] MEDS: PANTOprazole 40 MG TAB PO SCH (08:50)
[2024-08-09] MEDS: carvediloL 25 MG TAB PO SCH (08:50)
[2024-08-09] MEDS: ACETAMINOPHEN 325 MG TAB PO PRN (08:56)
[2024-08-09] MEDS: LANTUS PER UNIT CHARGE SC SCH (08:56)
[2024-08-09] MEDS ORDERED: DULoxetine HCL 60 MG CAP PO SCH (09:00)
[2024-08-09 09:30] LABS: Magnesium < 0.5 mg/dl (1.7-2.4)
[2024-08-09 09:31] LABS: Cdiff Antigen Negative; Cdiff Toxin A+B Negative Cdiff Toxin (Negative); Cdiff Toxin B Gene (2yr or >) Positive Cdiff Gene (Neg)
[2024-08-09] MEDS: DULoxetine HCL 30 MG CAP PO SCH (10:21)
--- NOTE | 2024-08-09 11:57 | Pharmacy Report ---
Pharmacy Glycemic Short Note 2 - Date of Service August 09, 2024 - Glycemic Short BSG Results (Last 24 hours): 08/08/24 08/08/24 08/08/24 14:40 14:46 17:47 Glucose 170 H POC Glucose 129 H POC Glucose (other) 171 H 08/08/24 08/08/24 08/09/24 20:08 20:11 02:11 Glucose 156 H 152 H POC Glucose 157 H POC Glucose (other) 08/09/24 08/09/24 08/09/24 07:33 08:16 11:20 Glucose 147 H POC Glucose 112 H 178 H POC Glucose (other) OUTPATIENT ANTIDIABETIC REGIMEN: * Tresiba 120 units SQ daily * insulin aspart 30 units SQ TID * Mounjaro 2.5mg SQ weekly HbA1c: 7.4% on 05/10/24, updated value 7.6% on 08/09/24 ASSESSMENT: * Virginia is a 49 year old female admitted last evening for OK on CKD IV and hyperkalemia. Pharmacy has been consulted for glycemic management while she is admitted. * BSG on admit last evening was 129mg/dL. She reportedly took her usual 120units of Tresiba yesterday morning and had a total of 60 units of Novolog prior to arrival. No additional basal insulin was ordered and a weight based bolus insulin regimen with a stress of 2 was started. * Fasting BSG was 112mg/dL this morning. Using data from a previous admission, Lantus 60 units SQ daily was started this morning and the parameters of the bolus insulin were tightened. PLAN FOR INPATIENT GLYCEMIC CONTROL: * Hold outpatient diabetes medications * Basal insulin * Lantus 60 units SQ daily * Bolus insulin * NovoLog per scale ACHS or Q6hrs while NPO * Goal Range: Low 110 mg/dL - High 140 mg/dL * Correction Factor: 20 mg/dL/unit * Nutritional / Prandial insulin per carb ratio of 1 unit per 7 grams CHO consumed
[2024-08-09] MEDS: MAGNESIUM SULFATE / D5W 1 GM/100 ML BAG IV SCH ×2 (12:33→22:13)
[2024-08-09] MEDS: SODIUM BICARBONATE 8.4% 75 MEQ in SODIUM CHLORIDE 0.45 % 1,000 ML IV SCH (13:22)
--- NOTE | 2024-08-09 16:55 | Hospitalist Progress Note ---
Date of Service August 09, 2024 Assessment & Plan (1) Acute kidney injury superimposed on stage 4 chronic kidney disease: (2) Hyperkalemia: Plan: Admit to telemetry Patient presenting by referral of outpatient technology professional for evaluation of abnormal renal function and hyperkalemia. Patient recently admitted [facility] 07/19 - 08/01 for OK on CKD, hyperkalemia, metabolic acidosis. Diuretics discontinued (patient had been taking both furosemide and torsemide by mistake prior to admission). K+ 6.8, creatinine 3.7 (was 1.7 on 08/01) Cheng placed for strict I/Os Patient reports diarrhea x 4 days EKG shows peaked T waves, QTc 378 S/p insulin, D50, calcium gluconate, Lokelma, IVF in the ED. bicarb drip being started as per nephrology Serial BMP q6h, daily EKG 08/09 creatinine Improving, from 3.7, currently 2.9 potassium 4.6 Continue bicarb drip (3) Diarrhea: Plan: Patient reports multiple episodes of diarrhea over the past 4 days C. difficile and stool PCR testing 08/09 Resolving Positive C. difficile gene but negative for the toxin Continue to monitor (4) Resistant hypertension: Plan: HTN during last admission felt to be due to episodes of hypotension To avoid hypotension, will hold amlodipine. Also holding Entresto due to OK Continue carvedilol (5) Diabetes type 2, uncontrolled: Plan: HgbA1c 7.4 04/2024 On high dose Tresiba at home and sliding scale Glycemic pharmacy consult Update A1c with a.m. labs -- a1c 7.6 DVT PROPHYLAXIS SQ heparin Admission and Anticipated Discharge Date Admission Date: August 08, 2024 Subjective follow-up for acute kidney injury, etc. Seen resting in bed, comfortable, not in distress States she feels okay overall Denies shortness of breath, nausea, pruritus, dizziness, headache No abdominal pain, nausea or vomiting, positive BMs No other new symptoms Review of Systems Review of Systems: all noted and negative except for above Physical Exam Physical Exam: General- oriented x 3, not in distress, speaks in sentences with no effort or accessory muscle use Eyes- anicteric Neck- no JVD Lungs- clear breath sounds bilaterally, no rales/wheezes Heart- normal rate, regular rhythm; no murmurs Abdomen- normal bowel sounds, nondistended, soft, nontender Extremities- no pretibial edema, no calf tenderness Neuro- alert, oriented x 3; no gross focal neurologic deficits Skin- warm & dry Results & Data Results & Data Vital Signs (Past 12 Hours) Vital Signs Temp Pulse Pulse Resp BP Pulse Ox O2 Del Method 08/09/24 16:04 78 08/09/24 16:01 36.7 C 79 18 106/70 95 Room Air 08/09/24 10:43 36.7 C 75 18 112/77 95 Room Air 08/09/24 07:48 36.8 C 84 18 120/81 96 Room Air 08/09/24 07:15 79 all noted and reviewed including below (3) Diarrhea Diarrhea type: unspecified type Qualified Code(s): R19.7 - Diarrhea, unspecified (5) Diabetes type 2, uncontrolled Glycemic state: with hyperglycemia Qualified Code(s): E11.65 - Type 2 diabete s mellitus with hyperglycemia
[2024-08-09] MEDS: ACETAMINOPHEN 1,000 MG/100 ML VIAL IV PRN (19:16)
[2024-08-09] MEDS: MAGNESIUM OXIDE 400 MG TAB PO SCH (21:07)
--- NOTE | 2024-08-09 22:36 | XRay Report ---
Exam(s): XR CXR 1 VIEW EXAM: XR Chest, 1 View CLINICAL HISTORY: Reason for exam: HFpEF getting IVF>check vol status. TECHNIQUE: Frontal view of the chest. COMPARISON: Prior chest x-ray from July 29, 2024. FINDINGS: Lungs: Unremarkable. No consolidation. Pleural space: Unremarkable. No pneumothorax. Heart: Unremarkable. No cardiomegaly. Mediastinum: Unremarkable. Normal mediastinal contour. Bones/joints: Status post anterior fusion of the distal cervical spine. No acute fracture. IMPRESSION: No evidence of acute cardiopulmonary process. Electronically signed by: Juli Bustamante MD 08/09/24 22:35 PM
--- NOTE | 2024-08-10 00:27 | Electrocardiogram Report ---
Test Reason : Blood Pressure : */* mmHG Vent. Rate : 79 BPM Atrial Rate : 79 BPM P-R Int : 184 ms QRS Dur : 94 ms QT Int : 348 ms P-R-T Axes : 46 57 96 degrees QTcB Int : 399 ms Normal sinus rhythm ST elevation, consider early repolarization, pericarditis, or injury Nonspecific T wave abnormality When compared with ECG of 08-Aug-2024 16:04, (unconfirmed) No significant change was found Confirmed by Lee Helms ([id number]) on 08/10/2024 12:27:04 AM Referred By: Gracie Lucas Confirmed By: Lee Helms
[2024-08-10] MEDS: ACETAMINOPHEN 1,000 MG/100 ML VIAL IV STA (05:40)
[2024-08-10 07:40] LABS: Basophils # (auto) 0.06 K/uL (0.00-0.20); Basophils % (auto) 1.1 %; Eosinophils # (auto) 0.14 K/uL (0.00-0.50); Eosinophils % (auto) 2.7 %; Hematocrit (blood only) 27.8 % (37.0-47.0); Hemoglobin 9.3 g/dl (12.0-16.0); Immature Granulocytes # (auto) 0.01 K/uL (0.01-0.20); Immature Granulocytes % (auto) 0.2 %; Lymphocytes # (auto) 1.25 K/uL (1.20-3.40); Lymphocytes % (auto) 23.8 %; Mean Corpuscular Hemoglobin 29.9 pg (25.0-34.0); Mean Corpuscular Hgb Conc 33.5 g/dL (32.0-36.0); Mean Corpuscular Volume 89.4 fL (80.0-100.0); Mean Platelet Volume 10.9 fL (9.4-12.4); Monocytes # (auto) 0.43 K/uL (0.11-0.59); Monocytes % (auto) 8.2 %; Neutrophils # (auto) 3.37 K/uL (1.40-6.50); Platelet Count 243 K/uL (130-400); RDW Coefficient of Variation 14.1 % (11.5-14.5); RDW Standard Deviation 45.8 fL (36.4-46.3); Red Blood Count 3.11 M/uL (4.20-5.40); White Blood Count 5.26 K/ul (4.8-10.8)
[2024-08-10 07:59] VITALS: TEMP 98.1
[2024-08-10 08:02] LABS: BUN Creatinine Ratio 17.5 (10-20); Calcium 8.4 mg/dl (8.6-10.3); Creatinine Clr Calc Pharmacy 30.2 ml/min; Magnesium 1.4 mg/dl (1.7-2.4); Phosphorus 2.3 mg/dl (2.5-4.9); Potassium 4.2 mmol/L (3.5-5.1)
[2024-08-10] MEDS: LANTUS PER UNIT CHARGE SC SCH (10:01)
[2024-08-10 10:54] VITALS: RESP 16; O2SAT 96
[2024-08-10] MEDS: BACLOFEN 10 MG TAB PO PRN (12:27)
[2024-08-10] MEDS: MAGNESIUM SULFATE / D5W 1 GM/100 ML BAG IV SCH (14:13)
--- NOTE | 2024-08-10 15:43 | Nephrology Progress Note ---
Date of Service August 10, 2024 Assessment & Plan (1) OK (acute kidney injury): Plan: nonoliguric prerenal OK on CKD 4. Presenting creatinine 3.7, further improved to 2.4 today. Baseline creatinine prior to mid July admission was low 2's; of note admitted then also w/ diarrhea and creat of 6. Prerenal etiology in the setting of severe diarrhea; notably, diarrhea brought her in to the hospital at last admission as well less than a month ago Stable for d/c home. NEPHRO D/C RECS DX: recurrent OK, this time Stage 1, after recent Stage 2 OK, both prerenal from severe diarrhea RX: -resume entresto at LOWER 26/24 mg bid dose -LOWER pantoprazole to 20 mg daily -resume prior to admission sodium bicarbonate, allopurinol, carvedilol -START slow mag 1 tab bid -HOLD amlodipine, spironolactone 12.5 mg daily, torsemide 20 mg daily, chlorthalidone 12.5 mg daily for now -other meds as per hospitalist service FURTHER OP CARE: -resume remote BP monitoring program w/in the next week; if unable to do that, log BP at home and contact nephro when you have 12-14 readings (w/in a week of hospital discharge) -CALL PCP for labs / get seen if you start having diarrhea again F/U APPTS: -pls arrange for [facility] or [facility] to evaluate pt re recurrent diarrhea -keep current 08/27/24 0800 appt w/ Nephro RICK Wrightitis >> neph nurse to order bmp, mag, phos, care coordinated w/ Dr Rivear re meds, f/u appts, labs via TText; we are in agreement (2) Hyperkalemia: Plan: Presenting potassium 6.8, down to 4.2 today with medical therapy stopped her bicarb rich fluids midday (3) Diarrhea: Plan: resolving; gi f/u as above Admission and Anticipated Discharge Date Admission Date: August 08, 2024 Subjective firm/formed BM today; no sob; no edema; tolerating po; no abd pain or distension Review of Systems 2 Review of Systems: All systems reviewed & are unremarkable except as noted in Subjective Physical Exam 2 Constitutional: well developed and well nourished Eyes: EOM intact bilaterally ENMT: Mouth: + dry oral mucous membranes Respiratory: normal respiratory effort Auscultation: + diminished lung sounds Cardiovascular: RRR, no murmur, no edema Gastrointestinal (Abdomen): Inspection/Auscultation: + abdomen distended (slight) and normal bowel sounds Percussion/Palpation: abdomen soft; abdomen nontender Musculoskeletal: Extremities: strength 5/5 throughout Skin: no rashes, warm and dry Results & Data Vital Signs (Past 12 Hours) Vital Signs Temp Pulse Pulse Resp BP Pulse Ox O2 Del Method 08/10/24 10:54 36.7 C 73 16 115/80 96 Room Air 08/10/24 07:58 36.7 C 74 18 123/88 95 Room Air 08/10/24 07:54 74 08/10/24 03:31 36.6 C 77 16 128/78 97 Room Air Laboratory Results 08/10/24 06:43 08/10/24 06:43 (3) Diarrhea Diarrhea type: unspecified type Qualified Code(s): R19.7 - Diarrhea, unspecified
[2024-08-10 15:52] VITALS: BP 123/77
--- NOTE | 2024-08-10 16:17 | Discharge Summary ---
Discharge Summary Date of Service August 10, 2024 Principal Dx & Hospital Course #1 = Principal Diagnosis (1) Acute kidney injury superimposed on stage 4 chronic kidney disease: (2) Hyperkalemia: Admit to telemetry Patient presenting by referral of outpatient hoop maker for evaluation of abnormal renal function and hyperkalemia. Patient recently admitted [facility] 07/19 - 08/01 for OK on CKD, hyperkalemia, metabolic acidosis. Diuretics discontinued (patient had been taking both furosemide and torsemide by mistake prior to admission). K+ 6.8, creatinine 3.7 (was 1.7 on 08/01) Cheng placed for strict I/Os Patient reports diarrhea x 4 days EKG shows peaked T waves, QTc 378 S/p insulin, D50, calcium gluconate, Lokelma, IVF in the ED. bicarb drip being started as per nephrology Serial BMP q6h, daily EKG 08/09 Placed on bicarb drip Nephrology service consulted creatinine steadily improved, from 3.7, down to 2.4 currently 2.9 potassium 4.2 Magnesium repleted, was less than 0.5 at 1 point Discharge recommendations by nephrology service, Dr. Gracie Fiore: RX: -resume entresto at LOWER 26/24 mg bid dose -LOWER pantoprazole to 20 mg daily -resume prior to admission sodium bicarbonate, allopurinol, carvedilol -START slow mag 1 tab bid -HOLD amlodipine, spironolactone 12.5 mg daily, torsemide 20 mg daily, chlorthalidone 12.5 mg daily for now -other meds as per hospitalist service FURTHER OP CARE: -resume remote BP monitoring program w/in the next week; if unable to do that, log BP at home and contact nephro when you have 12-14 readings (w/in a week of hospital discharge) -CALL PCP for labs / get seen if you start having diarrhea again F/U APPTS: -pls arrange for [facility] or [place] to evaluate pt re recurrent diarrhea -keep current 08/27/24 0800 appt w/ Nephro [facility] Wrightitis >> neph nurse to order bmp, mag, phos, (3) Diarrhea: Patient reports multiple episodes of diarrhea over the past 4 days C. difficile and stool PCR testing 08/10 Resolved Positive C. difficile gene but negative for the toxin Continue to monitor (4) Resistant hypertension: HTN during last admission felt to be due to episodes of hypotension per Nephro: -resume entresto at LOWER 26/24 mg bid dose -resume prior to admission sodium bicarbonate, allopurinol, carvedilol -HOLD amlodipine, spironolactone 12.5 mg daily, torsemide 20 mg daily, chlorthalidone 12.5 mg daily for now (5) Diabetes type 2, uncontrolled: HgbA1c 7.4 04/2024 On high dose Tresiba at home and sliding scale Glycemic pharmacy consult -- a1c 7.6 DVT PROPHYLAXIS SQ heparin Notes For Next Care Provider repeat BMP on ff up with PCP Medication Changes From Visit as per assessment and plan Admission HPI Per Admitting Provider 49-year-old female with PMH HTN, DM type II, history of C. difficile colitis s/p colectomy, and other problems listed below who presents to the ED by referral of her outpatient hoop maker for evaluation of abnormal blood work. Patient recently admitted to [facility] 07/19 - 08/01 for [place] on CKD, hyperkalemia, metabolic acidosis. Diuretics discontinued (patient had been taking both furosemide and torsemide by mistake prior to admission). patient reports she had blood work done today for possible iron transfusion and was told that her kidney function was abnormal and her potassium was high and to go to the ER. Patient reports she developed diarrhea about 4 days ago. Reports she is having multiple episodes per day, up to 12 times. Denies abdominal pain and nausea. No fevers or chills. She denies chest pain and shortness of breath. No lightheadedness, dizziness, diaphoresis, syncopal events. She denies urinary symptoms. In the ED, labs show K+ 6.8, creatinine 3.7 ( was 1.7 on 08/01), bicarb 15. Patient was given IV insulin, D50, calcium gluconate, IVF, Lokelma and started on a bicarbonate drip. Admission Exam Per Admitting Provider Vitals signs as noted above General Appearance:Obese, no apparent distress Head: normocephalic, Atraumatic Eyes: normal inspection, EOMI Neck: supple, Trachea midline Respiratory/Chest: Normal breath sounds, CTA, No accessory muscle use Cardiovascular: S1, S2, No murmur Abdomen/GI:Soft, Non tender, + protuberant, bowel sounds present Extremities/Musculoskeletal:normal inspection, no edema Neurologic/Psych:AAOX3, grossly no focal neurological deficits Skin: normal color, warm Discharge Exam General- oriented x 3, not in distress, speaks in sentences with no effort or accessory muscle use Eyes- anicteric Neck- no JVD Lungs- clear breath sounds bilaterally, no rales/wheezes Heart- normal rate, regular rhythm; no murmurs Abdomen- normal bowel sounds, nondistended, soft, nontender Extremities- no pretibial edema, no calf tenderness Neuro- alert, oriented x 3; no gross focal neurologic deficits Skin- warm & dry Updated Medication List Medication Instructions Recorded Confirmed Type allopurinol 300 mg tablet 300 mg PO QAM 01/24/24 08/08/24 History aspirin 325 mg tablet 325 mg PO QAM 01/24/24 08/08/24 History buspirone 15 mg tablet 15 mg PO QAM 01/24/24 08/08/24 History duloxetine 60 mg capsule,delayed 60 mg PO QAM 01/24/24 08/08/24 History release eszopiclone 1 mg tablet (Lunesta) 1 mg PO HS 01/24/24 08/08/24 History omega 7-kcy-kcb-fish oil 1,000 mg 1 cap PO QAM 01/24/24 08/08/24 History (120 mg-180 mg) capsule (Fish Oil) prochlorperazine maleate 10 mg 10 mg PO TID PRN Nausea And 01/24/24 08/08/24 History tablet (Compazine) Vomiting sodium bicarbonate 650 mg tablet 1,950 mg PO TID 01/24/24 08/08/24 History Medical Thc 1 dose PO UD PRN NEEDED 03/06/24 08/08/24 History atorvastatin 80 mg tablet 80 mg PO QAM 03/06/24 08/08/24 History insulin degludec 200 unit/mL (3 120 unit subcut QAM 03/06/24 08/08/24 History mL) subcutaneous pen (Tresiba FlexTouch U-200 insulin) blood-glucose meter (ReliOn Prime 05/10/24 08/08/24 History Meter) cholecalciferol (vitamin D3) 25 2,000 unit PO QAM 05/10/24 08/08/24 History mcg (1,000 unit) capsule insulin lispro 100 unit/mL 30 sliding scale dose subcut TID 05/10/24 08/08/24 History subcutaneous pen (Humalog KwikPen (U-100) Insulin) lidocaine 5 % topical patch 1 patch transdermal DAILY PRN Pain 07/19/24 08/08/24 History tirzepatide 2.5 mg/0.5 mL 2.5 mg subcut WK 07/19/24 08/08/24 History subcutaneous pen injector (Opal) carvedilol 25 mg tablet 25 mg PO BIDM #30 tabs 08/01/24 08/08/24 Rx baclofen 10 mg tablet 10 mg PO TID PRN muscle spasm #0 08/10/24 08/08/24 Rx tabs magnesium chloride 71.5 mg 71.5 mg PO BID 30 days #60 tabs 08/10/24 Rx (magnesium chloride) tablet,delayed release (Slow-Mag) pantoprazole 20 mg tablet,delayed 20 mg PO DAILY 30 days #30 tabs 08/10/24 Rx release (Protonix) sacubitril 24 mg-valsartan 26 mg 1 tab PO BID 30 days #60 tabs 08/10/24 Rx tablet Hospital Stay Data Consultations 08/08/24 15:57 ED Decision to Admit Stat 08/08/24 18:28 Consult Nephrology Routine Pending Results Patient Have Any Pending Studies at Discharge: No Discharge Instructions Given to Patient (Per Discharging Provider) PLEASE REFER TO YOUR NEW MEDICATION LIST AND FOLLOW INSTRUCTIONS CAREFULLY. -resume entresto at LOWER 26/24 mg bid dose -LOWER pantoprazole to 20 mg daily -resume prior to admission sodium bicarbonate, allopurinol, carvedilol -START slow mag 1 tab bid -HOLD amlodipine, spironolactone 12.5 mg daily, torsemide 20 mg daily, chlorthalidone 12.5 mg daily for now FURTHER OP CARE: -resume remote BP monitoring program w/in the next week; if unable to do that, log BP at home and contact nephro when you have 12-14 readings (w/in a week of hospital discharge) -CALL PCP for labs / get seen if you start having diarrhea again F/U APPTS: -pls arrange for [facility] or [place] to evaluate pt re recurrent diarrhea -keep current 08/27/24 0800 appt w/ Nephro [facility] Wrightitis >> neph nurse to order bmp, mag, phos, PLEASE CALL YOUR PRIMARY CARE PHYSICIAN OR RETURN TO THE ER IF WITH WORSENING OF SYMPTOMS, INCLUDING weakness, dizziness, poor urine output, diarrhea, vomiting, etc FOLLOW UP WITH PRIMARY CARE PHYSICIAN IN 1 WEEK. Total Time Total Time Spent Total Time Spent (In Minutes): 45 minutes
[2024-08-10 18:16] VITALS: PULSE 72
--- NOTE | 2024-08-11 09:18 | Electrocardiogram Report ---
Test Reason : Blood Pressure : */* mmHG Vent. Rate : 74 BPM Atrial Rate : 74 BPM P-R Int : 206 ms QRS Dur : 94 ms QT Int : 384 ms P-R-T Axes : 52 49 89 degrees QTcB Int : 426 ms Normal sinus rhythm Normal ECG When compared with ECG of 09-Aug-2024 06:23, No significant change was found Confirmed by Virginia Thomson (Kathy) on 08/11/2024 9:18:14 AM Referred By: Gracie Lucas Confirmed By: Virginia Thomson
== END 2024-08-10 18:15 | disposition home or self-care (01) | DRG 683 ==
LOC: ED 14:04 → SUATTDRO 16:32 → 2S 16:32

== ENCOUNTER 2024-08-16 06:38 | Inpatient (IN) ==
--- OUTSIDE RECORDS SUMMARY | 2024-08-16 06:44 | External Medical Summary | Summary of Care ---
Author Name Unknown Organization [facility] Address [address] [place] [address] Phone [phone] Care Team Providers Care Outreach Specialist Name Role Phone Wiliam Garsia MD Primary Care Provider + [phone] Reason for Referral * Evaluate & Treat - Unlimited Visits (Within 10 days (routine)) - Authorized Specialty Diagnoses / Procedures Referred By Adelaida morris Referred To Contact Gastroenterology Diagnoses Hyperkalemia Electrolyte and fluid disorder Diarrhea, unspecified type Gracie Lucas MD [address] [place] [address] Phone: tel: fax: Kimberly Burciaga [address] [place] [address] Phone: tel: fax: Referral ID Status Reason Start Date Expiration Date Visits Requested Visits Authorized [id number] Authorized Specialty Services Required 08/13/[phone] Question Answer Referral Priority Within 10 days (routine) Where should this appointment be scheduled? [facility] For what condition is the patient being referred? All Other Gastro Conditions (Abdominal Pain, Change in Bowel Habits, Anemia, Reflux) Other conditions (please specify): chronic diarrhea with 2 recent hospital stays. Reason for Visit * Reason Onset Date Comments Advice 08/05/2024 Encounter Details Date Type Department Care Team (Late st Contact Info) Description 08/05/2024 Telephone Nephrology, [facility] [address] [facility] [place], [place] [id number] Services, Scheduling [address] [place] [address] Advice Allergies Active Allergy Reactions Criticality Noted Date Comments Bee Venom 07/08/2021 Hydralazine Edema Other 11/22/2022 documented as of this encounter (statuses as of 08/13/2024) Medications CYMBALTA 60 MG PO CPEP Take [...] as of this encounter (statuses as of 08/13/2024) Active Problems Problem Noted Date Diagnosed Date [...] as of this encounter (statuses as of 08/13/2024) Resolved Problems Problem Noted Date Diagnosed Date [...] as of this encounter (statuses as of 08/13/2024) Immunizations Name Administration Dates Next Due COVID-19 mRNA, LNP-s, No Pre serve, 2-Dose Series (Ozmott) 06/23/2020,06/02/2020 Pneumococcal Polysaccharide PPV23 (Pneumovax) Seasonal Influenza [...] encounter Miscellaneous Notes * Addendum Note - Sally Zacarias RN - 08/13/2024 11:14 AM EDTAddended by: SALLY ZACARIAS on: 08/13/2024 11:14 AM Modules accepted: Orders * Telephone Encounter - Sally Zacarias RN - 08/13/2024 11:10 AM EDT GI consult placed for appointment in [facility] if possible. * Telephone Encounter - Janel Glynn OSA [...] EDT Office Visit Nephrology, [facility] [address] [facility] [place] [address] ZemaitisKate PA-C [address] [facility] [place] [address] Scheduled Referrals Name Type Priority Associated Diagnoses Order Schedule ADULT GASTROENTEROLOGY REFERRAL OP Referral Within 10 days (routine) Hyperkalemia Electrolyte and fluid disorder Diarrhea, unspecified type Ordered: 08/13/2024 Health Maintenance Due Date Last Done Comments [...] 01/08/2021, Additional history exists HbA1c 03/13/2024 09/12/2023, 110 12/2022, 06/11/2021, Additional history exists GFR 12/28/2024 06/27/2024, 05/12, 04/29/2024, Additional history exists Diabetic Eye Exam 02/25/2025 02/26/2024, 02/26/2024 Nephrology Referral 04/25/2025 04/25/2024 Albumin/Creatinine Ratio 04/29/2025 025, 03/27/2024, 02/16/2024, Additional history exists Hgb 04/29/2025 04/29/2024, 12/2022, 05/30/2022, Additional history exists PTH 04/29/2025 [...] as of this encounter Visit Diagnoses Diagnosis Hypokalemia- Primary Hypopotassemia Hyperkalemia Hyperpotassemia Electrolyte and fluid disorder Electrolyte and fluid disorders not elsewhere classified Diarrhea, unspecified type documented in this encounter Advance Directives * [...] Power of Attor albert? No Care Teams Outreach Specialist Relationship Specialty Start Date End Date Wiliam Garsia MD [address] [place] [address] PCP - General Family Medicine 05/05/17 documented as of this encounter
--- OUTSIDE RECORDS SUMMARY | 2024-08-16 06:44 | External Medical Summary | Summary of Care ---
Author Name Unknown Organization [facility] Address [address] [place] [address] Phone [phone] Care Team Providers Care Legal Department Manager Name Role Phone Wiliam Garsia MD Primary Care Provider + [phone] Reason for Referral * Evaluate & Treat - Unlimited Visits (Within 10 days (routine)) - Authorized Specialty Diagnoses / Procedures Referred By Adelaida morris Referred To Contact Gastroenterology Diagnoses Hyperkalemia Electrolyte and fluid disorder Diarrhea, unspecified type Gracie Lucas MD [address] [place] [address] Phone: tel: fax: Kimberly Burciaga [address] [place] [address] Phone: tel: fax: Referral ID Status Reason Start Date Expiration Date Visits Requested Visits Authorized [id number] Authorized Specialty Services Required 08/13/[phone] [...] st Contact Info) Description 08/05/2024 Telephone Nephrology, [facility] [address] [facility] [place], [place] [phone] Services, Scheduling [address] [place] [address] Advice Allergies Active Allergy Reactions Criticality Noted [...] mRNA, LNP-s, No Pre serve, 2-Dose Series ([employer]otClip) 06/23/2020,06/02/2020 Pneumococcal Polysaccharide PPV23 (Pneumovax) Seasonal Influenza [...] EDT GI consult placed for appointment in [facility] if possible. * Telephone Encounter [...] EDT Office Visit Nephrology, [facility] [address] [facility] [place] [address] ZemaitisKate PA-C [address] [facility] [place] [address] Scheduled Referrals Name Type Priority Associated Diagnoses [...] Power of Attor albert? No Care Teams Legal Department Manager Relationship Specialty Start Date End Date Wiliam Garsia MD [address] [place] [address] PCP - General Family Medicine 05/05/17 documented as of this encounter
--- OUTSIDE RECORDS SUMMARY | 2024-08-16 06:44 | External Medical Summary | Summary of Care ---
Author Name Unknown Organization [facility] Address [address] [place] [address] Phone [phone] Care Team Providers Care Movement Assembler Name Role Phone Wiliam Garsia MD Primary Care Provider + [phone] Reason for Visit * Reason Comments Outpatient Testing Encounter Details Date Type Department Care Team (Late st Contact Info) Description 08/15/2024 1:00 PM EDT Laboratory Laboratory [address] [place] [phone] [facility] [address] [place] [address] Hyperkalemia; Electrolyte and fluid disorder; Diarrhea, unspecified type; Kidney disease, chronic, stage IV (GFR 15-29 ml/min) ([facility]) Allergies Active Allergy Reactions Criticality Noted Date Comments Bee Venom 07/08/2021 Hydralazine Edema Other 11/22/2022 documented as of this encounter (statuses as of 08/15/2024) Medications CYMBALTA 60 MG PO CPEP Take [...] as of this encounter (statuses as of 08/15/2024) Active Problems Problem Noted Date Diagnosed Date [...] as of this encounter (statuses as of 08/15/2024) Resolved Problems Problem Noted Date Diagnosed Date [...] as of this encounter (statuses as of 08/15/2024) Immunizations Name Administration Dates Next Due COVID-19 mRNA, LNP-s, No Pre serve, 2-Dose Series (CloudHelix) 06/23/2020,06/02/2020 Pneumococcal Polysaccharide PPV23 (Pneumovax) Seasonal Influenza [...] Visit Nephrology, [facility] [address] [place] [address] Kate Rodriguez PA-C [address] [place] [address] 10/02/2024 7:30 AM EDT Office Visit Gastroenterology, [facility] [address] [place] [phone] Lauren Thomas CRNP [address] [place] [address] Pending Results Name Type Priority Associated Diagnoses Date /Time COMPREHENSIVE METABOLIC PANEL Lab Routine Electrolyte and fluid disorder Diarrhea, unspecified type Kidney disease, chronic, stage IV (GFR 15-29 ml/min) ([facility]) 08/15/2024 12:52 PM EDT MAGNESIUM Lab Routine Electrolyte and fluid disorder Diarrhea, unspecified type Kidney disease, chronic, stage IV (GFR 15-29 ml/min) ([facility]) 08/15/2024 12:52 PM EDT CBC Lab Routine Electrolyte and fluid disorder Diarrhea, unspecified type Kidney disease, chronic, stage IV (GFR 15-29 ml/min) ([facility]) 08/15/2024 12:52 PM EDT Health Maintenance Due Date Last [...] 01/08/2021, Additional history exists HbA1c 03/13/2024 09/12/2023, 12/2022, 06/11/2021, Additional history exists GFR 12/28/2024 [...] 02/04/2029 02/05/2024, 10/08, 07/05/2019, Additional history exists EKG Completed 08/10/2012, 05/2012, 07/23/2012, Additional history exists Influenza Vaccine (FLU shot) [...] as of this encounter Visit Diagnoses Diagnosis Hyperkalemia Hyperpotassemia Electrolyte and fluid disorder Electrolyte and fluid disorders not elsewhere classified Diarrhea, unspecified type Kidney disease, chronic, stage IV (GFR 15-29 ml/min) (HCC) Chronic kidney disease, Stage IV (severe) documented in this encounter Advance Directives * [...] Power of Attor albert? No Care Teams Movement Assembler Relationship Specialty Start Date End Date Wiliam Garsia MD [address] [place] [address] PCP - General Family Medicine 05/05/17 documented as of this encounter
--- OUTSIDE RECORDS SUMMARY | 2024-08-16 06:44 | External Medical Summary ---
Author Name Unknown Address Unknown Organization K01:[facility] [address] [place] [address] Laboratory Report Ordering Provider Test Date Status JULIO C BARNEY 08/15/2024 12:52:04 Final Observation Date Value Abnormality Reference (Units ) Status Magnesium 08/15/2024 12:52:04 0.8 Below low normal 1.5 -2.6 (mg/dL) Final Performing Location [facility] - [address] [place] [address]
--- OUTSIDE RECORDS SUMMARY | 2024-08-16 06:44 | External Medical Summary | Summary of Care ---
Author Name Unknown Organization [facility] Address [address] [place] [address] Phone [phone] Care Team Providers Care Casting Tester Name Role Phone Wiliam Garsia MD Primary Care Provider + [phone] Reason for Visit * Reason Onset Date Comments Precert Denied 05/14/2024 Veltassa Encounter Details Date Type Department Care Team (Late st Contact Info) Description 05/14/2024 Telephone Nephrology, [facility] [address] [facility] [place] [address] Gracie Lucas MD [address] [facility] [place] [address] Precert Denied (Veltassa) Allergies Active Allergy Reactions Criticality Noted Date Comments Bee Venom 07/08/2021 Hydralazine Edema Other 11/22/2022 documented as of this encounter (statuses as of 08/14/2024) Medications CYMBALTA 60 MG PO CPEP Take [...] the morning. 15 Tablet 5 5 Active Ajovy 225 MG/1.5ML Subcutaneous Solution Prefilled Syringe Every Month . 2 07/04/19 25 Discontinu ed(Patient preference /discontin uation) Furosemide 20 MG Oral Tablet (Lasix)Indicatio ns:Chronic kidney disease, stage 3b (HCC),Localized edema,HTN, goal below 130/80 TAKE TWO TABLETS BY MOUTH EVERY MORNING AND TWO TABLETS FOUR HOURS LATER in DAY 360 Tablet 3 4 07/19/19 25 Discontinu ed(Patient preference /discontin uation) Veltassa 8.4 GM Oral Packet (Patiromer Sorbitex Calcium)Indicati ons:Localized edema,Chronic kidney disease, stage 3b (HCC),HTN, goal below 130/80 Take 8.4 g by mouth in the morning. 30 Each 3 5 06/14/19 25 Discontinu ed(Refill) documented as of this encounter (statuses as of 08/14/2024) Active Problems Problem Noted Date Diagnosed Date [...] as of this encounter (statuses as of 08/14/2024) Resolved Problems Problem Noted Date Diagnosed Date [...] as of this encounter (statuses as of 08/14/2024) Immunizations Name Administration Dates Next Due COVID-19 mRNA, LNP-s, No Pre serve, 2-Dose Series ([facility]) 06/23/2020,06/02/2020 Pneumococcal Polysaccharide PPV23 (Pneumovax) Seasonal Influenza [...] encounter Miscellaneous Notes * Telephone Encounter - Brianna Castillo CPhT - 06/11/2024 12:44 PM EST Emmy Booth! The prior authorization for has been denied. Does the office plan on appealing this decision or will the provider be seeking alternate therapy for this patient? Please let us know how you plan to proceed so we may follow up appropriately * Telephone Encounter - Tonya Beckford CPhT - 06/03/2024 4:38 PM EST Hello! The prior authorization has been denied. Does the office plan on appealing this decision or will the provider be seeking alternate therapy for this patient? Please let us know how you plan to proceed so we may follow up appropriately Thank you Tonya Beckford Ticket Taker III [facility] 06/03/2024,4:38 PM * Telephone Encounter - Shea Stout agricultural education instructor - 05/28/2024 9:33 AM EST Hello! The prior authorization for Veltassa has been denied. Does the office plan on appealing this decision or will the provider be seeking alternate therapy for this patient? Please let us know how you plan to proceed so we may follow up appropriately. Thank you, Katarina Stout Ticket Taker [facility] 05/28/2024 9:33 AM * Telephone Encounter - Shea Stout PHARM Tech - 05/14/2024 9:22 AM EST New or re-auth: New auth Patient Virginia Hernandez needs a prior authorization for a medication through their [employer] insurance. Medication: Veltassa Formulation: patiromer sorbitex calcium pack Dosage: 8.4g ID: [id number] BIN:[id number] PCN:[facility] Phone: [employer] ship date is na. Thank you very much, Katarina Stout Ticket Taker [facility] 05/14/2024 9:23 AM documented in this encounter Plan of Treatment Upcoming Encounters Date Type Department Care Team (Late st Contact Info) Description 08/27/2024 8:00 AM EDT Office Visit Nephrology, [facility] [address] [facility] [place] [address] ZeKate nolan PA-C [address] [facility] [place] [address] Health Maintenance Due Date Last Done Comments [...] 02/16/2024, Additional history exists Hgb 04/29/2025 04/29/2024, 110 12/2022, 05/30/2022, Additional history exists PTH 04/29/2025 [...] Power of Attor albert? No Care Teams Casting Tester Relationship Specialty Start Date End Date Wiliam Garsia MD [address] [place] [address] PCP - General Family Medicine 05/05/17 documented as of this encounter
--- OUTSIDE RECORDS SUMMARY | 2024-08-16 06:44 | External Medical Summary ---
Author Name Unknown Address Unknown Organization [id number]:[facility]AT[facility] - [address] [place] [address] Laboratory Report Ordering Provider Test Date Status JULIO C BARNEY 08/15/2024 12:52:04 Final Observation Date Value Abnormality Reference (Units ) Status WBC, Total 08/15/2024 12:52:04 7.87 4.00-10.80 (K/uL) Final RBC 08/15/2024 12:52:04 3.45 3.85-5.15 (M/uL) Final Hemoglobin 08/15/2024 12:52:04 10.3 Below low normal 12.0-15.3 (g/dL) Final HCT 08/15/2024 12:52:04 33.1 Below low normal 36.0-45.2 (%) Final MCV 08/15/2024 12:52:04 95.9 81.5-97.5 (fL) Final MCH 08/15/2024 12:52:04 29.9 27.0-34.0 (pg) Final MCHC 08/15/2024 12:52:04 31.1 32.0-36.0 (g/dL) Final RDW 08/15/2024 12:52:04 14.2 11.5-15.5 (%) Final Platelets 08/15/2024 12:52:04 192 140-400 (K/uL) Final MPV 08/15/2024 12:52:04 11.6 6.6-11.1 (fL) Final Nucleated erythrocytes/100 leukocytes [Ratio] in Blood by Automated count 08/15/2024 12:52:04 0 <=0 (/100 WBCs) Final Performing Location [facility]ATORY [facility] - [address] [place] [address]
--- OUTSIDE RECORDS SUMMARY | 2024-08-16 06:45 | External Medical Summary | Summary of Care ---
Author Name Unknown Organization [facility] Address [address] [place] [address] Phone [phone] Care Team Providers Care Clinical Recruiter Name Role Phone Wiliam Garsia MD Primary Care Provider + [phone] Reason for Visit * Reason Onset Date Comments Home Monitoring Orders Only 08/09/2024 Encounter Details Date Type Department Care Team (Late st Contact Info) Description 08/09/2024 Home Monitoring Nephrology, [facility] [address] [place] [address] Gracie Lucas MD [address] [place] [address] HTN, goal below 130/80* Allergies Active Allergy Reactions Criticality Noted Date Comments Bee Venom 07/08/2021 Hydralazine Edema Other 11/22/2022 documented as of this encounter (statuses as of 08/09/2024) Medications CYMBALTA 60 MG PO CPEP Take 1 Capsule by mouth in the morning. Active Insulin Degludec 100 UNIT/ML Subcutaneous Solution Pen-injector Inject under the skin daily. Active Insulin Lispro 100 UNIT/ML Subcutaneous Solution Cartridge Inject under the skin. Active prochlorperazine (COMPAZINE) 10 MG TabletIndication s:Nausea Take 1 Tab by mouth every 8 hours as needed for Nausea. 30 Tab 6 01/21/201 9 Active Pregabalin 150 MG Oral Capsule [...] as of this encounter (statuses as of 08/09/2024) Active Problems Problem Noted Date Diagnosed Date [...] as of this encounter (statuses as of 08/09/2024) Resolved Problems Problem Noted Date Diagnosed Date [...] as of this encounter (statuses as of 08/09/2024) Immunizations Name Administration Dates Next Due COVID-19 [...] as of this encounter Progress Notes * Reyna Steve, Community Health Statistics Intern - 08/09/2024 11:47 AM EDT Emmy Lucas, I spoke with [place] today and she requested discharge from home blood pressure monitoring programfor now. She has had several hospital admissions lately and has been unable to send daily readings per program protocol. She will keep cuff and discuss readmission to program after things settle downfor her and she can resume regular daily readings. Thank you, Reyna Steve Community Programs Specialist documented in this encounter Plan of Treatment Upcoming Encounters Date Type Department Care Team (Late st Contact Info) Description 08/27/2024 8:00 AM EDT Office Visit Nephrology, [facility] [address] [place] [address] ZemaitisKate PA-C [address] [place] [address] Health Maintenance Due Date Last Done Comments [...] encounter Visit Diagnoses Diagnosis HTN, goal below 130/80- Primary Unspecified essential hypertension documented in this [...] Power of Attor albert? No Care Teams Clinical Recruiter Relationship Specialty Start Date End Date Wiliam Garsia MD [address] [place] [address] PCP - General Family Medicine 05/05/17 documented as of this encounter
--- OUTSIDE RECORDS SUMMARY | 2024-08-16 06:45 | External Medical Summary | Summary of Care ---
Author Name Unknown Organization [facility] Address [address] [place] [address] Phone [phone] Care Team Providers Care Police Matron Name Role Phone Wiliam Garsia MD Primary Care Provider + [phone] Reason for Visit * Reason Onset Date Comments Home Monitoring Orders Only 08/09/2024 Encounter Details Date Type Department Care Team (Late st Contact Info) Description 08/09/2024 Home Monitoring Nephrology, [facility] [address] [place] [address] Gracie Lucas MD [address] [place] [address] HTN, goal below 130/80* Allergies Active Allergy [...] Progress Notes * Reyna Steve, Community Health Roller Cleaner - 08/09/2024 11:47 AM EDT Emmy Lucas, [...] 8:00 AM EDT Office Visit Nephrology, [facility] [place] [address] [place] [address] ZemaitisKate PA-C [address] [place] [address] Health Maintenance Due Date Last Done Comments [...] Power of Attor albert? No Care Teams Police Matron Relationship Specialty Start Date End Date Wiliam Garsia MD [address] [place] [address] PCP - General Family Medicine 05/05/17 documented as of this encounter
--- OUTSIDE RECORDS SUMMARY | 2024-08-16 06:45 | External Medical Summary | Summary of Care ---
Author Name Unknown Organization [facility] Address [address] [place] [address] Phone [phone] Care Team Providers Care Learning Support Resource Room Teacher Name Role Phone Wiliam Garsia MD Primary Care Provider + [phone] Reason for Visit * Reason Onset Date Comments Advice 08/05/2024 Encounter Details Date Type Department Care Team (Late st Contact Info) Description 08/05/2024 Telephone Nephrology, [facility] [address] [place] [address] Services, Scheduling [address] [place] [address] Advice Allergies Active Allergy Reactions Criticality Noted Date Comments Bee Venom 07/08/2021 Hydralazine Edema Other 11/22/2022 documented as of this encounter (statuses as of 08/12/2024) Medications CYMBALTA 60 MG PO CPEP Take [...] as of this encounter (statuses as of 08/12/2024) Active Problems Problem Noted Date Diagnosed Date [...] as of this encounter (statuses as of 08/12/2024) Resolved Problems Problem Noted Date Diagnosed Date Resolved Date Chronic kidney disease, stage 3b 07/19/2021 07/25/2024 Overview: Per CKD protocol Chronic kidney disease, stage 3a 07/20/2020 07/22/2021 Overview: Per CKD protocol Acute kidney injury 07/15/2012 11/23/19 23 Salmonella bacteremia 09/13/20112017 Toxic encephalopathy 09/11/2011 012 SIRS due to infectious proce ss with acute organ dysfunction 09/10/2011 06/19/2017 Septicemia due to Gram-negative organism 09/10/2011 06/19/2017 KO (acute kidney injury) 09/10/2011 Acidosis 09/10/2011 09/14/2011 Hypoxemia 09/10/2011 09/14/2011 documented as of this encounter (statuses as of 08/12/2024) Immunizations Name Administration Dates Next Due COVID-19 mRNA, LNP-s, No Pre serve, 2-Dose Series ([employer]) 06/23/2020,06/02/2020 Pneumococcal Polysaccharide PPV23 (Pneumovax) Seasonal Influenza [...] Visit Nephrology, [facility] [address] [place] [address] ZemaitisKate PA-C [address] [facility] [place] [address] Health Maintenance Due Date Last Done Comments [...] Power of Attor albert? No Care Teams Learning Support Resource Room Teacher Relationship Specialty Start Date End Date Wiliam Garsia MD [address] [place] [address] PCP - General Family Medicine 05/05/17 documented as of this encounter
[2024-08-16 07:19] LABS: Basophils # (auto) 0.08 K/uL (0.00-0.20); Basophils % (auto) 1.3 %; Eosinophils # (auto) 0.37 K/uL (0.00-0.50); Eosinophils % (auto) 6.2 %; Hematocrit (blood only) 31.9 % (37.0-47.0); Hemoglobin 10.5 g/dl (12.0-16.0); Immature Granulocytes # (auto) 0.03 K/uL (0.01-0.20); Immature Granulocytes % (auto) 0.5 %; Mean Corpuscular Hemoglobin 30.3 pg (25.0-34.0); Mean Corpuscular Hgb Conc 32.9 g/dL (32.0-36.0); Mean Corpuscular Volume 91.9 fL (80.0-100.0); Mean Platelet Volume 10.9 fL (9.4-12.4); Monocytes # (auto) 0.53 K/uL (0.11-0.59); Monocytes % (auto) 8.8 %; Neutrophils % (auto) 58.2 %; Platelet Count 165 K/uL (130-400); RDW Coefficient of Variation 14.1 % (11.5-14.5); RDW Standard Deviation 46.9 fL (36.4-46.3); Red Blood Count 3.47 M/uL (4.20-5.40); White Blood Count 6.01 K/ul (4.8-10.8)
--- NOTE | 2024-08-16 07:43 | Emergency Department Note ---
Impression & Plan Acute hyperkalemia, Diarrhea, Hypomagnesemia, CRF (chronic renal failure) ED Provider Note NAME: AMBIKA CORCORAN AGE: 49 SEX: F : 1975 ARRIVES VIA: Walk-In INFORMANT: [Patient] ED PROVIDER(S): [Lev Gan MD] CHIEF COMPLAINT: Abnormal laboratories HISTORY OF PRESENT ILLNESS: The patient is a 49-year-old female who presents to the ER with abnormal outpatient labs. She has renal disease and does see nephrology. She has felt weak and not quite herself for about a month and had outpatient labs yesterday showing a high potassium and higher creatinine. She was referred to the ER. The patient did notice some slight swelling of her left lower extremity over the last day or so. She does admit to intermittent bouts of diarrhea, she has had diarrhea this week for about 4 days. The diarrhea is nonbloody. There has been no shortness of breath, no cough or congestion. No fever. No urinary complaints. PMHx/PSHx/Social Hx: See Below PHYSICAL EXAM: GENERAL: Patient is in no acute distress. HEENT: No acute trauma, normocephalic atraumatic, mucous membranes moist, no nasal congestion. NECK: No stridor, no adenopathy, no meningismus, trachea is midline. LUNGS: Clear to auscultation bilaterally, no wheeze, no rhonchi, breath sounds equal. HEART: Without murmurs gallops or rubs, regular rate and rhythm. Heart tones quite distant. ABDOMEN: Soft, nontender, no peritonitis. EXTREMITIES: No cyanosis, full range of motion of all the joints without pain or difficulty. Very subtle left lower extremity pedal edema. NEUROLOGIC: Oriented x 3, no acute motor or sensory deficits, no focal weakness. SKIN: No jaundice, no diaphoresis. DIFFERENTIAL DIAGNOSIS: Renal failure, electrolyte imbalance, hyperkalemia, UTI, dehydration, among others. EMERGENCY DEPARTMENT PROCEDURES: MEDICAL DECISION MAKING: There is no leukocytosis. The patient is anemic but this appears to be baseline based on recent testing. There is a normal platelet count. No bandemia. No coagulopathy. Potassium was somewhat high at 5.6. There was some renal insufficiency with a creatinine of 2.22 although, this is a baseline for the patient. Magnesium critically low at 0.6. No concerning liver enzyme elevation. Thyroid testing suggests some hypothyroidism. Urinalysis did not show findings of infection. Chest x-ray did not show pneumonia. ECG showed a sinus rhythm, no dysrhythmia. Cardiac enzyme testing x 1 is not consistent with acute cardiac injury. On exam, the patient was not febrile or toxic. The patient received IV saline for hydration. She received 2 bags of IV magnesium. She was given IV morphine for pain. I did speak with nephrology. The patient is in need of a hospital stay, further magnesium replacement and potassium monitoring. I did speak with the patient and case management. The on-call hospitalist was consulted. Patient is currently resting comfortably. Prior/Outside records/notes reviewed: None ECG per my interpretation: Indication was hyperkalemia. The ECG shows a normal sinus rhythm with a rate of 69. There is no ST elevation, no PVCs. The QTc is 400. Continuous Cardiac Monitoring per my interpretation: An order was placed for continuous cardiac monitoring. The monitor shows a rate of 68 with normal sinus rhythm. Imaging/x-ray results per my interpretation: Chest x-ray does not show CHF or significant cardiomegaly. Chronic Medical/Social conditions affecting care: History of known renal disease. Care/Management discussed with: Nephrology-Dr. Fiore. Case management and the on-call hospitalist. Level of care consideration(s): After review of the information above and other included data: --I believe the patient requires escalation of care to admission DISPOSITION: Admission Past Med/Surg History Problem List (Updated 08/16/24 @ 14:07 by Lev Gan MD) CRF (chronic renal failure) (Acute) Hypomagnesemia (Acute) Diarrhea (Acute) Acute hyperkalemia (Acute) Chronic kidney disease (CKD) Electrolyte abnormality Weakness (Acute) Diarrhea (Acute) OK (acute kidney injury) (Acute) Acute hyperkalemia (Acute) Ileus Resistant hypertension Small bowel obstruction Acute kidney injury superimposed on stage 4 chronic kidney disease Acute hyperkalemia (Acute) Acute renal failure (Acute) Pancreatitis (Acute) Hyperkalemia Right shoulder pain Asymptomatic hypertensive urgency History of congestive heart failure Cervical stenosis of spinal canal Depression with anxiety Hyperparathyroidism Chronic renal disease, stage 3, moderately decreased glomerular filtration rate (GFR) between 30-59 mL/min/1.73 square meter Diabetic nephropathy associated with type 2 diabetes mellitus Diabetes type 2, uncontrolled Diabetic peripheral neuropathy associated with type 2 diabetes mellitus Ketosis prone diabetes Dysesthesia Dyslipidemia Hypercalcemia Hypertension Nephrolithiasis Vitamin D deficiency Acidosis, metabolic Anemia of chronic disease GERD (gastroesophageal reflux disease) Medical History Acute kidney injury superimposed on CKD History of endometriosis History of renal dialysis (04/2017) - [facility] - ARF 2/2 DKA Hx of Clostridium difficile infection 2012 - treated, no problems since Chronic nausea Surgical History History of esophagogastroduodenoscopy (EGD) Hx of colonoscopy History of open reduction and internal fixation (ORIF) procedure (2018) left fibula Hx of tracheostomy (2013) R/T COMPLICATIONS AFTER ILEOSTOMY REVERSAL SURGERY IN 2011; HAS SINCE BEEN REVERSED History of rotator cuff surgery (2017) RT History of lumbar spinal fusion (2006) History of reversal of ileostomy (2012) History of ileostomy (2012) Status post cholecystectomy (2017) "cholelithiasis" Status post partial colectomy (2012) "for C diff colitis" Family History Mother Diabetes Other No family history of adverse response to anesthesia Social History Smoking Status: Never smoker Tobacco Type: Cigarettes Cigarettes Per Day: 5; Second Hand Exposure: No; Do You Dip or Chew Tobacco: No; Hx Alcohol Use: No Hx Substance Use: No Preferred Language: Kiswahili Communication Ability: Effective Senior Clerk Required: No Beliefs That Will Affect Care: None marital status: Current Living Situation: Significant Other Feels Safe at Home: Yes Assistive Devices: None Allergies Allergies Allergy/AdvReac Type Severity Reaction Status Date / Time bee venom protein (honey bee) Allergy Intermediate RED, SHORT Verified 07/19/24 16:18 OF BREATH hydralazine AdvReac Intermediate Lower Verified 07/19/24 16:18 Extremity Edema lorazepam AdvReac Intermediate Agitated Verified 07/28/24 07:07 Home Meds Home Medications Medication Instructions Recorded Confirmed allopurinol 300 mg tablet 300 mg PO QAM 01/24/24 08/16/24 aspirin 325 mg tablet 325 mg PO QAM 01/24/24 08/16/24 buspirone 15 mg tablet 15 mg PO QAM 01/24/24 08/16/24 duloxetine 60 mg capsule,delayed 60 mg PO QAM 01/24/24 08/16/24 release eszopiclone 1 mg tablet (Lunesta) 1 mg PO HS 01/24/24 08/16/24 omega 5-tke-mtl-fish oil 1,000 mg 1 cap PO QAM 01/24/24 08/16/24 (120 mg-180 mg) capsule (Fish Oil) prochlorperazine maleate 10 mg 10 mg PO TID PRN Nausea And 01/24/24 08/16/24 tablet (Compazine) Vomiting sodium bicarbonate 650 mg tablet 1,950 mg PO TID 01/24/24 08/16/24 Medical Thc 1 dose PO UD PRN NEEDED 03/06/24 08/16/24 atorvastatin 80 mg tablet 80 mg PO QAM 03/06/24 08/16/24 insulin degludec 200 unit/mL (3 100 unit subcut QAM 03/06/24 08/16/24 mL) subcutaneous pen (Tresiba FlexTouch U-200 insulin) blood-glucose meter (ReliOn Prime 05/10/24 08/16/24 Meter) cholecalciferol (vitamin D3) 25 2,000 unit PO QAM 05/10/24 08/16/24 mcg (1,000 unit) capsule insulin lispro 100 unit/mL 30 sliding scale dose subcut TID 05/10/24 08/16/24 subcutaneous pen (Humalog KwikPen (U-100) Insulin) lidocaine 5 % topical patch 1 patch transdermal DAILY PRN Pain 07/19/24 08/16/24 tirzepatide 2.5 mg/0.5 mL 2.5 mg subcut WK 07/19/24 08/16/24 subcutaneous pen injector (Opal) Previous Rx's Medication Instructions Recorded carvedilol 25 mg tablet 25 mg PO BIDM #30 tabs 08/01/24 baclofen 10 mg tablet 10 mg PO TID PRN muscle spasm #0 08/10/24 tabs magnesium chloride 71.5 mg 71.5 mg PO BID 30 days #60 tabs 08/10/24 (magnesium chloride) tablet,delayed release (Slow-Mag) pantoprazole 20 mg tablet,delayed 20 mg PO DAILY 30 days #30 tabs 08/10/24 release (Protonix) sacubitril 24 mg-valsartan 26 mg 1 tab PO BID 30 days #60 tabs 08/10/24 tablet Results & Data (ED) Vital Signs Vital Signs - 24 hr 08/16/24 06:42 08/16/24 07:06 08/16/24 08:00 Temperature 36.5 C Temperature Source Temporal Artery Scan Pulse Rate 73 68 66 Respiratory Rate 18 20 Blood Pressure 121/75 123/70 Blood Pressure Mean 90 87 Pulse Oximetry 98 97 Oxygen Delivery Method Room Air Sepsis Recent Fever Within 48 Hours No Sepsis New/Unexplained Change in Mental Status No Sepsis Action Taken by Nursing No Action Required 08/16/24 08:31 08/16/24 09:00 08/16/24 09:30 Temperature Temperature Source Pulse Rate 67 68 64 Respiratory Rate 16 21 18 Blood Pressure 139/84 128/80 Blood Pressure Mean 102 90 Pulse Oximetry 98 99 96 Oxygen Delivery Method Room Air Sepsis Recent Fever Within 48 Hours Sepsis New/Unexplained Change in Mental Status Sepsis Action Taken by Nursing 08/16/24 10:02 Temperature Temperature Source Pulse Rate 64 Respiratory Rate 22 Blood Pressure 139/102 H Blood Pressure Mean 112 Pulse Oximetry 97 Oxygen Delivery Method Sepsis Recent Fever Within 48 Hours Sepsis New/Unexplained Change in Mental Status Sepsis Action Taken by Alf Medications Current Medication List: was personally reviewed by me Laboratory Data Attestation: I reviewed the patient's lab results. 08/16/24 06:55 08/16/24 07:47 Lab Results 08/16/24 08/16/24 Range/Units 06:55 07:47 WBC 6.01 (4.8-10.8) K/ul RBC 3.47 L (4.20-5.40) M/uL Hgb 10.5 L (12.0-16.0) g/dl Hct 31.9 L (37.0-47.0) % MCV 91.9 (80.0-100.0) fL MCH 30.3 (25.0-34.0) pg MCHC 32.9 (32.0-36.0) g/dL RDW Std Deviation 46.9 H (36.4-46.3) fL RDW Coeff of Chidi 14.1 (11.5-14.5) % Plt Count 165 (130-400) K/uL MPV 10.9 (9.4-12.4) fL Immature Gran % (Auto) 0.5 % Neut % (Auto) 58.2 % Lymph % (Auto) 25.0 % Villalba % (Auto) 8.8 % Eos % (Auto) 6.2 % Baso % (Auto) 1.3 % Neut # (Auto) 3.50 (1.40-6.50) K/uL Lymph # (Auto) 1.50 (1.20-3.40) K/uL Villalba # (Auto) 0.53 (0.11-0.59) K/uL Eos # (Auto) 0.37 (0.00-0.50) K/uL Baso # (Auto) 0.08 (0.00-0.20) K/uL Immature Gran # (Auto) 0.03 (0.01-0.20) K/uL PT Cancelled 10.9 INR Cancelled 1.0 APTT Cancelled 30 PTT Ratio Cancelled 1.1 Sodium TNP 136 Potassium TNP 5.6 H Chloride 112 H (98-107) mmol/L Carbon Dioxide 20 L (21-32) mmol/L Anion Gap TNP BUN 32 H (6-23) mg/dl Creatinine 2.22 H (0.6-1.2) mg/dl Est Cr Clr Drug Dosing 33.2 ml/min eGFR 26.19 BUN/Creatinine Ratio 14.4 (10-20) Glucose 204 H (70-99(Fasting)) mg/dl Calcium 9.1 (8.6-10.3) mg/dl Phosphorus 3.6 (2.5-4.9) mg/dl Magnesium TNP 0.6 L* Total Bilirubin 0.5 (0.2-1.0) mg/dl AST TNP 16 ALT 24 (7-52) U/L Alkaline Phosphatase 145 H (34-104) U/L Troponin I High Sens 9.7 (0-14) pg/ml Total Protein 6.4 (6.0-8.3) gm/dl Albumin 3.8 (3.4-5.0) gm/dl Globulin 2.6 (2.5-4.0) gm/dl Albumin/Globulin Ratio 1.5 (0.9-2) TSH 7.168 H (0.300-4.500) uIu/ml Free T4 0.46 L (0.61-1.60) ng/dl Urine Color Yellow Urine Appearance Clear (Clear) Urine pH 5.5 (4.5-7.5) Ur Specific [place] 1.009 (1.000-1.030) Urine Protein 2+ H (Negative) Urine Glucose (UA) Trace H (Negative) Urine Ketones Negative (Negative) Urine Blood Negative (Negative) Urine Nitrite Negative (Negative) Urine Bilirubin Negative (Negative) Urine Urobilinogen Negative (Negative) Ur Leukocyte Esterase Negative (Negative) Urine WBC (Auto) 0-5 (0-5) /hpf Urine RBC (Auto) 0-2 (0-2) /hpf U Hyaline Cast (Auto) 0-2 (0-2) /lpf U Epithel Cells (Auto) 3-5 H (0-2) /hpf Urine Bacteria (Auto) None Seen (None Seen) Administered Medications Sodium Bicarbonate 150 meq/ (Dextrose) 1,150 mls @ 75 mls/hr IV .[id number] Stop: 08/19/24 11:14 Last Admin: 08/16/24 11:49 Dose: 75 mls/hr Documented By: CODY Discontinued Medications Sodium Chloride (Nss) 500 mls @ 999 mls/hr IV .Q31M ONE Stop: 08/16/24 07:32 Last Infusion: 08/16/24 08:31 Dose: Infused Documented By: Admin: 08/16/24 07:46 Dose: 999 mls/hr Documented By: RIN Magnesium Sulfate/Dextrose (Magnesium Sulfate / D5w) 1 gm in 100 mls @ 100 mls/hr IV Q1H [facility] Stop: 08/16/24 10:34 Last Infusion: 08/16/24 11:06 Dose: Infused Documented By: Admin: 08/16/24 10:03 Dose: 100 mls/hr Documented By: Infusion: 08/16/24 09:50 Dose: Infused Documented By: Admin: 08/16/24 08:50 Dose: 100 mls/hr Documented By: RIN Magnesium Sulfate/Dextrose (Magnesium Sulfate / D5w) 1 gm in 100 mls @ 50 mls/hr IV ONE ONE Stop: 08/16/24 13:09 Last Infusion: 08/16/24 13:38 Dose: Infused Documented By: Admin: 08/16/24 11:50 Dose: 50 mls/hr Documented By: CODY Morphine Sulfate (Morphine Sulfate 4 Mg/Ml 1 Ml Carp\\Vial) 4 mg IV NOW STA Stop: 08/16/24 08:58 Last Admin: 08/16/24 09:07 Dose: 4 mg Documented By: RIN Imaging Data Radiologist's Impression: Chest X-Ray 08/16/24 07:03 EXAM: XR chest 1V portable CLINICAL HISTORY: Weakness TECHNIQUE: An X-ray image of the chest is obtained using an AP projection. COMPARISON: 08/09/2024 FINDINGS: Pulmonary Parenchyma: Bilateral prominent bronchopulmonary vasculature. No evidence of consolidation, collapse No evidence of pleural effusion or pleural thickening. Heart and Mediastinum: Heart size and shape are normal. No mediastinal widening or masses. No hilar or mediastinal lymphadenopathy. Bony Thorax: Bony thorax appears intact without fractures or deformities. Soft Tissues: Soft tissues overlying the chest wall are unremarkable. IMPRESSION: 1. No evidence of consolidation or collapse. 2. No significant interval changes. Electronically signed by Colt Becker 08-16-2024 08:10 AM Discharge Plan Visit Data Chief Complaint: Abnormal Labs/Diagnostic Testing Stated Complaint: ABDNORMAL LABS ED Provider: Lev Gan Discharge Problem: Acute hyperkalemia, Diarrhea, Hypomagnesemia, CRF (chronic renal failure) Patient Disposition: Admitted As Inpatient Condition: Fair Discharge Instructions Interventions: ED Discharge Assessment Last Done: 08/16/24 13:23 Discharge Problem: Diarrhea Qualifiers: Diarrhea type: unspecified type Qualified Code(s): R19.7 - Diarrhea, unspecified CRF (chronic renal failure) Qualifiers: Chronic kidney disease stage: unspecified stage Qualified Code(s): N18.9 - Chronic kidney disease, unspecified
[2024-08-16] MEDS: SODIUM CHLORIDE 0.9% 500 ML IV ONE (07:46)
[2024-08-16 07:50] LABS: Alanine Aminotransferase 24 U/L (7-52); Albumin Globulin Ratio 1.5 (0.9-2); Albumin Level 3.8 gm/dl (3.4-5.0); Alkaline Phosphatase 145 U/L (34-104); BUN Creatinine Ratio 14.4 (10-20); Bilirubin,Total 0.5 mg/dl (0.2-1.0); Blood Urea Nitrogen 32 mg/dl (6-23); Calcium 9.1 mg/dl (8.6-10.3); Carbon Dioxide 20 mmol/L (21-32); Chloride 112 mmol/L (98-107); Creatinine Clr Calc Pharmacy 33.2 ml/min; Globulin 2.6 gm/dl (2.5-4.0); Glucose 204 mg/dl (70-99(Fasting)); Total Protein 6.4 gm/dl (6.0-8.3); Troponin I High Sensitivity 9.7 pg/ml (0-14)
[2024-08-16 07:58] LABS: Thyroid Stimulating Hormone 7.168 uIu/ml (0.300-4.500)
[2024-08-16 08:09] LABS: Appearance Urine Clear (Clear); Bacteria Urine Automated None Seen (None Seen); Bilirubin Urine Negative (Negative); Blood Urine Negative (Negative); Cast Urine Automated 0-2 /lpf (0-2); Color Urine Yellow; Glucose Urine UA Trace (Negative); Ketones Urine Negative (Negative); Leukocyte Esterase Urine Negative (Negative); Nitrite Urine Negative (Negative); Protein Urine 2+ (Negative); RBC Urine Automated 0-2 /hpf (0-2); Specific Gravity Urine 1.009 (1.000-1.030); Urobilinogen Urine Negative (Negative); WBC Urine Automated 0-5 /hpf (0-5); pH Urine 5.5 (4.5-7.5)
--- NOTE | 2024-08-16 08:10 | XRay Report ---
EXAM: XR chest 1V portable CLINICAL HISTORY: Weakness TECHNIQUE: An X-ray image of the chest is obtained using an AP projection. COMPARISON: 08/09/2024 FINDINGS: Pulmonary Parenchyma: Bilateral prominent bronchopulmonary vasculature. No evidence of consolidation, collapse No evidence of pleural effusion or pleural thickening. Heart and Mediastinum: Heart size and shape are normal. No mediastinal widening or masses. No hilar or mediastinal lymphadenopathy. Bony Thorax: Bony thorax appears intact without fractures or deformities. Soft Tissues: Soft tissues overlying the chest wall are unremarkable. IMPRESSION: 1. No evidence of consolidation or collapse. 2. No significant interval changes. Electronically signed by Colt Becker 08-16-2024 08:10 AM
[2024-08-16 08:27] LABS: Potassium 5.6 mmol/L (3.5-5.1)
[2024-08-16 08:29] LABS: Magnesium 0.6 mg/dl (1.7-2.4); Phosphorus 3.6 mg/dl (2.5-4.9)
[2024-08-16 08:34] LABS: T4 Free Thyroxine 0.46 ng/dl (0.61-1.60)
[2024-08-16 08:40] LABS: Partial Thromboplastin Ratio 1.1; Partial Thromboplastin Time 30 Seconds (21-31); Prothrombin Time 10.9 Seconds (9.0-12.0)
[2024-08-16] MEDS: MAGNESIUM SULFATE / D5W 1 GM/100 ML BAG IV SCH ×2 (08:50→16:24)
[2024-08-16] MEDS: MoRPHine SULFATE 4 MG/ML 1 ML CARP\\VIAL IV STA (09:07)
[2024-08-16] MEDS ORDERED: SODIUM CHLORIDE 0.9% 500 ML IV SCH (11:00)
[2024-08-16] MEDS ORDERED: STAT IV/IM STA (11:01)
--- NOTE | 2024-08-16 11:42 | History & Physical Report ---
Date of Service August 16, 2024 Assessment & Plan (1) Electrolyte abnormality: Plan: The patient is a 49 year old female with a past medical history of CKD Stage 4 with chronic metabolic acidosis, DM Type II with insulin dependency, HTN, dyslipidemia, Electrolyte disorder, C-Diff colitis, anemia, and other problems who presented to the ED today for abnormal labs- hypomag, hyperkalemia, elevated creatinine. She felt weak at home, contacted Nephrology for labs to be checked. Found to have K+6 and hypomag with the recommendation from Nephrology to be be admitted for electrolyte replacement and monitoring of kidney functioning. Electrolyte abnormality/CKD: * Admit to PCU Tele * Magnesium extremely low on admit at 0.6 and received Mag replacement x 3 in the ED * Check Mag at 1500 and replacement with additional as needed * Bicarb drip initiated - D5W with 150 meq Sod Bicarb at 75 ml/hr * Consult Nephrology-ordered Diabetes Mellitus, Type II uncontrolled: * Baseline A1C unknown- will check A1C with morning labs; patient reports baseline BSG pre meals in 150's * Continue home long-acting insulin regimen with lantus here for now * SSI ordered- Goal range BSG 140-180, Correction Factor 25 and Carb coverage 8 * Acuchecks ACHS Hypertension: * BP Goal 130/80; BP now 120's/70's * Currently managed with Carvedilolol and entresto * Holding amlodipine for now * Diuretics on hold for unstable potassium with hypomagnesium- torsemide, chlorthalidone, spironolactone Hypothyroidism: * TSH elevated with low Free T4- replace with weight-based levothyroxine- ordered * Patient reports having thyroid ultrsound outpatient via [facility]- no records available. * Consider thyroid ultrsound while inpatient * Cortisol with AM labs ordered for r/o adrenal insufficiency to investigate alternate causes of electrolyte abnormality Dyslipidemia: * Continue home statin therapy * Check labs as needed (2) Chronic kidney disease (CKD): (3) Diabetes type 2, uncontrolled: (4) Hypertension: (5) Dyslipidemia: Plan DVT Ppx: Heparin Code status: Full PCP: Dr. Garsia Dispo: Admit Patient seen in collaboration with Dr. Salcedo. Please see addendum.I spent a total of 75 minutes coordinating, documenting and providing care for this patient excluding time spent in the performance of separately billed services or time spent by another provider/QHP. History of Present Illness Primary Care Provider: Wiliam Garsia The patient is a 49 year old female with a past medical history of CKD Stage 4 with chronic metabolic acidosis, DM Type II with insulin dependency, HTN, dyslipidemia, Electrolyte disorder, C-Diff colitis, anemia, and other problems who presented to the ED today for abnormal labs- hypomag, hyperkalemia, elevated creatinine. She felt weak at home, contacted Nephrology for labs to be checked. Found to have K+6 and hypomag with the recommendation from Nephrology to be be admitted for electrolyte replacement and monitoring of kidney functioning. She denies chest pain, palpitations, falls, dizziness, breathing difficulty, N/V, fever, chills, night sweats, weight fluctuations, urinary symptoms. She has had multiple admissions recently: 07/19-08/01 for weakness, vomiting, abdominal pain found to have SBO and renal failure, known to [facility] Nephrology. She returned to the ED on 08/08/24 with abnormal labs ( Potassium 6.8; Creat 3.7; baseline Creat 1.7) and with diarrhea. She had peaked T waves on EKG with Qtc 378. She was given Lokelma and Calcium Gluc in the ED, then placed on bicarb drip. 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 Creatinine steadily improved throughout the hospitalization and was 2.4 at discharge, potassium 4.2, Mag 1.4, Phos 2.3. In the emergency department today, her labs were K+ 5.6, Creat 2.2, Mag 0.6. She received 2 bags Magnesium in the ED and I personally ordered an additional 1 gm Mag infusion. Additionally, TSH elevated 7.168, Free T4 0.46. EKG showing NSR with vent rate 69; QTc 400. Chest Xray showing no evidence of consolidation or collapse; no significant interval changes. No evidence of leukocytosis. Hemodynamically stable and BP at goal. Bicarb drip initiated per Nephrology with Mag replacement. History obtained primarily from the patient and past records. Allergies Allergy/AdvReac Type Severity Reaction Status Date / Time bee venom protein (honey bee) Allergy Intermediate RED, SHORT Verified 07/19/24 16:18 OF BREATH hydralazine AdvReac Intermediate Lower Verified 07/19/24 16:18 Extremity Edema lorazepam AdvReac Intermediate Agitated Verified 07/28/24 07:07 Home Medications Medication Instructions Recorded Confirmed Type allopurinol 300 mg tablet 300 mg PO QAM 01/24/24 08/16/24 History aspirin 325 mg tablet 325 mg PO QAM 01/24/24 08/16/24 History buspirone 15 mg tablet 15 mg PO QAM 01/24/24 08/16/24 History duloxetine 60 mg capsule,delayed 60 mg PO QAM 01/24/24 08/16/24 History release eszopiclone 1 mg tablet (Lunesta) 1 mg PO HS 01/24/24 08/16/24 History omega 8-pas-sln-fish oil 1,000 mg 1 cap PO QAM 01/24/24 08/16/24 History (120 mg-180 mg) capsule (Fish Oil) prochlorperazine maleate 10 mg 10 mg PO TID PRN Nausea And 01/24/24 08/16/24 History tablet (Compazine) Vomiting sodium bicarbonate 650 mg tablet 1,950 mg PO TID 01/24/24 08/16/24 History Medical Thc 1 dose PO UD PRN NEEDED 03/06/24 08/16/24 History atorvastatin 80 mg tablet 80 mg PO QAM 03/06/24 08/16/24 History insulin degludec 200 unit/mL (3 100 unit subcut QAM 03/06/24 08/16/24 History mL) subcutaneous pen (Tresiba FlexTouch U-200 insulin) blood-glucose meter (ReliOn Prime 05/10/24 08/16/24 History Meter) cholecalciferol (vitamin D3) 25 2,000 unit PO QAM 05/10/24 08/16/24 History mcg (1,000 unit) capsule insulin lispro 100 unit/mL 30 sliding scale dose subcut TID 05/10/24 08/16/24 History subcutaneous pen (Humalog KwikPen (U-100) Insulin) lidocaine 5 % topical patch 1 patch transdermal DAILY PRN Pain 07/19/24 08/16/24 History tirzepatide 2.5 mg/0.5 mL 2.5 mg subcut WK 07/19/24 08/16/24 History subcutaneous pen injector (Opal) carvedilol 25 mg tablet 25 mg PO BIDM #30 tabs 08/01/24 08/16/24 Rx baclofen 10 mg tablet 10 mg PO TID PRN muscle spasm #0 08/10/24 08/16/24 Rx tabs magnesium chloride 71.5 mg 71.5 mg PO BID 30 days #60 tabs 08/10/24 08/16/24 Rx (magnesium chloride) tablet,delayed release (Slow-Mag) pantoprazole 20 mg tablet,delayed 20 mg PO DAILY 30 days #30 tabs 08/10/24 08/16/24 Rx release (Protonix) sacubitril 24 mg-valsartan 26 mg 1 tab PO BID 30 days #60 tabs 08/10/24 08/16/24 Rx tablet Past Med/Surg History Problem List CRF (chronic renal failure) (Acute) Hypomagnesemia (Acute) Diarrhea (Acute) Acute hyperkalemia (Acute) Chronic kidney disease (CKD) Electrolyte abnormality Weakness (Acute) Diarrhea (Acute) OK (acute kidney injury) (Acute) Acute hyperkalemia (Acute) Ileus Resistant hypertension Small bowel obstruction Acute kidney injury superimposed on stage 4 chronic kidney disease Acute hyperkalemia (Acute) Acute renal failure (Acute) Pancreatitis (Acute) Hyperkalemia Right shoulder pain Asymptomatic hypertensive urgency History of congestive heart failure Cervical stenosis of spinal canal Depression with anxiety Hyperparathyroidism Chronic renal disease, stage 3, moderately decreased glomerular filtration rate (GFR) between 30-59 mL/min/1.73 square meter Diabetic nephropathy associated with type 2 diabetes mellitus Diabetes type 2, uncontrolled Diabetic peripheral neuropathy associated with type 2 diabetes mellitus Ketosis prone diabetes Dysesthesia Dyslipidemia Hypercalcemia Hypertension Nephrolithiasis Vitamin D deficiency Acidosis, metabolic Anemia of chronic disease GERD (gastroesophageal reflux disease) Medical History Acute kidney injury superimposed on CKD History of endometriosis History of renal dialysis (04/2017) - [facility] - ARF 2/2 DKA Hx of Clostridium difficile infection 2012 - treated, no problems since Chronic nausea Surgical History History of esophagogastroduodenoscopy (EGD) Hx of colonoscopy History of open reduction and internal fixation (ORIF) procedure (2018) left fibula Hx of tracheostomy (2013) R/T COMPLICATIONS AFTER ILEOSTOMY REVERSAL SURGERY IN 2011; HAS SINCE BEEN REVERSED History of rotator cuff surgery (2018) RT History of lumbar spinal fusion (2006) History of reversal of ileostomy (2012) History of ileostomy (2012) Status post cholecystectomy (2017) "cholelithiasis" Status post partial colectomy (2012) "for C diff colitis" Family History Mother Diabetes Other No family history of adverse response to anesthesia Social History Smoking Status: Never smoker Tobacco Type: Cigarettes Cigarettes Per Day: 5; Second Hand Exposure: No; Do You Dip or Chew Tobacco: No; Hx Alcohol Use: No Hx Substance Use: No Preferred Language: Armenian Communication Ability: Effective Vice President Compliance Required: No Beliefs That Will Affect Care: None marital status: Current Living Situation: Significant Other Feels Safe at Home: Yes Assistive Devices: None Review of Systems Review of Systems: All systems reviewed & are unremarkable except as noted in HPI & below Physical Exam Physical Exam: VITALS: Reviewed. WEIGHT/BMI reviewed. GEN: Healthy appearing, well-developed, NAD. PSYCH: Good Judgment. AOx3. Normal memory, mood, and affect. HEENT -Head: NC/AT; -Eyes: PERRL, EOMI. Mild upper lid edema , No discharge or redness -Ears: External ears are normal. Normal TMs. -Nose: Normal nares. -Mouth and throat: MMM. Normal gums, muc tianna, palate,. Good dentition. NECK: Supple, with no masses. CV: RRR, no m/r/g. LLE +1 pitting edema. Peripheral pulses strong. LUNGS: CTAB, no w/r/c. ABD: Soft, + Distended without edema. NT, NBS, no masses or organomegaly. : N/A SKIN: Warm, well perfused. No skin rashes or abnormal lesions. MSK: No deformities, Normal gait. EXT: No clubbing, cyanosis, or edema. NEURO: Normal muscle strength and tone. No focal deficits. Results & Data Results & Data Vital Signs (Past 12 Hours) Vital Signs Temp Pulse Resp BP Pulse Ox O2 Del Method 08/16/24 10:31 67 12 123/81 96 05/09/25 10:02 64 22 139/102 H 97 08/16/24 09:30 64 18 128/80 96 08/16/24 09:00 68 21 139/84 99 08/16/24 08:31 67 16 98 Room Air 08/16/24 08:00 66 20 123/70 97 08/16/24 07:06 68 08/16/24 06:42 36.5 C 73 18 121/75 98 Room Air Laboratory Results Short CBC 08/16/24 Range/Units 06:55 WBC 6.01 (4.8-10.8) K/ul Hgb 10.5 L (12.0-16.0) g/dl Hct 31.9 L (37.0-47.0) % Plt Count 165 (130-400) K/uL BMP 08/16/24 08/16/24 06:55 07:47 Sodium TNP 136 Potassium TNP 5.6 H Chloride 112 H Carbon Dioxide 20 L BUN 32 H Creatinine 2.22 H Glucose 204 H Calcium 9.1 Liver Function 08/16/24 08/16/24 Range/Units 06:55 07:47 Total Bilirubin 0.5 (0.2-1.0) mg/dl AST TNP 16 ALT 24 (7-52) U/L Alkaline Phosphatase 145 H (34-104) U/L Albumin 3.8 (3.4-5.0) gm/dl Urine 08/16/24 Range/Units 07:47 Urine Color Yellow Urine Appearance Clear (Clear) Urine pH 5.5 (4.5-7.5) Ur Specific [place] 1.009 (1.000-1.030) Urine Protein 2+ H (Negative) Urine Glucose (UA) Trace H (Negative) Diagnostic Findings Chest X-Ray 08/16/24 07:03 EXAM: XR chest 1V portable CLINICAL HISTORY: Weakness TECHNIQUE: An X-ray image of the chest is obtained using an AP projection. COMPARISON: 08/09/2024 FINDINGS: Pulmonary Parenchyma: Bilateral prominent bronchopulmonary vasculature. No evidence of consolidation, collapse No evidence of pleural effusion or pleural thickening. Heart and Mediastinum: Heart size and shape are normal. No mediastinal widening or masses. No hilar or mediastinal lymphadenopathy. Bony Thorax: Bony thorax appears intact without fractures or deformities. Soft Tissues: Soft tissues overlying the chest wall are unremarkable. IMPRESSION: 1. No evidence of consolidation or collapse. 2. No significant interval changes. Electronically signed by Colt Becker 08-16-2024 08:10 AM Code Status & VTE Plan VTE Prophylaxis Plan VTE Prophylaxis will be ordered: Yes Supervising Physician Co-Signing Physician Notes Patient seen and examined at bedside. Ms. Hernandez is doing ok today. She did not feel well at home, felt sick, came to hospital. On exam, well appearing and comfortable, noted Mg of 0.6, noted hyperkalemia of 5.6, creatinine 2.2 is around baseline, TSH with low T4 suggestive of clinical hypothyroidism. A/P: #Severe Hypomagnesemia #Hyperkalemia #Hypothyroidism -patient has had some diarrhea at home -repeat hospitalizations for electrolyte and other abnormalities -differential is broad, includes: chronic renal disease (likely contributer), diarrhea/malabsorption (possible), hyperaldosteronism/Barrters syndrome (possible), hypoaldosteronism (possible), hyperparathyroidism (unlikely given calcium), hyperthyroidism (unlikely has low T4), parathyroid disease (possible), respiratory alkalosis (possible but unlikely) Plan: -check: urine magnesium, PTH, vitamin D, renin, aldosterone with ratios, ionized calcium, VBG, CK to complete workup -aggressive replenishment of magnesium, recheck BMP/Mg at 3 pm -hold lokelma to avoid decreasing Mg further -nephrology consult, appreciate recs -gentle hydration to assist with hyperkalemia -check malabsorption labs (B12, folic acid, iron) -check AM cortisol -start levothyroxine weight based supplementation I have seen and discussed the case with the collaborating advanced practitioner. I agree with the above H&P. I have reviewed and confirmed the patients medical history, the findings on physical examination, and the patients diagnosis and treatment plan with Lilian MCKEON and agree with the information documented. I spent a total of 40 minutes coordinating, documenting, and providing care for this patient excluding time spent in the performance of separately billed ser vices. All of the aforementioned completed outside of collaborating with the assigned advanced practitioner for a full treatment plan. I have reviewed the advanced practitioner's documentation, and I agree with, and take responsibility for the plan of care (3) Diabetes type 2, uncontrolled Glycemic state: with hyperglycemia Qualified Code(s): E11.65 - Type 2 diabetes mellitus with hyperglycemia (4) Hypertension Hypertension type: primary hypertension Qualified Code(s): I10 - Essential (primary) hypertension
[2024-08-16] MEDS: SODIUM BICARBONATE 8.4% 150 MEQ in DEXTROSE 5% 1,000 ML IV SCH (11:49)
[2024-08-16] MEDS: MAGNESIUM SULFATE / D5W 1 GM/100 ML BAG IV ONE (11:50)
[2024-08-16] MEDS ORDERED: GLUCOSE 40% GEL 15 GM TUBE PO PRN (13:44)
[2024-08-16] MEDS ORDERED: GLUCOSE 10 TAB/TUBE PO PRN (13:44)
[2024-08-16] MEDS ORDERED: POLYETHYLENE (MIRALAX) 17 GM PACK PO PRN (13:44)
[2024-08-16] MEDS ORDERED: CARBOHYDRATES FOR HYPOGLYCEMIA PO PRN (13:44)
[2024-08-16] MEDS ORDERED: MAGNESIUM HYDROXIDE SUSP 30 ML UDC PO PRN (13:44)
[2024-08-16] MEDS ORDERED: PHARMACY GLYCEMIC MGMT CONSULT PRN (13:44)
[2024-08-16] MEDS ORDERED: DEXTROSE 50% 50 ML SYRINGE IV PRN (13:44)
[2024-08-16] MEDS ORDERED: GLUCAGON FOR INJ 1 MG VIAL SQ PRN (13:44)
[2024-08-16] MEDS ORDERED: ALUMINUM/MAGNESIUM SUSP 30 ML UDC PO PRN (13:44)
[2024-08-16] MEDS: ACETAMINOPHEN 325 MG TAB PO PRN (14:24)
[2024-08-16 14:29] LABS: Base Excess VBG -7.4 mEq/L; HCO3 VBG 21 mmol/L; Oxygen Saturation VBG < 60.0 %; PCO2 VBG 50 mmHg (38-50); PO2 VBG 27 mmHg; pH VBG 7.22 (7.36-7.41)
[2024-08-16] MEDS: SODIUM BICARBONATE 650 MG TAB PO SCH (14:41)
[2024-08-16] MEDS: INSULIN ASPART PER UNIT CHARGE SC SCH (14:44)
[2024-08-16 14:45] LABS: Ferritin 384.6 ng/ml (8-388)
[2024-08-16 14:52] LABS: BUN Creatinine Ratio 14.1 (10-20); Calcium 9.5 mg/dl (8.6-10.3); Creatinine Clr Calc Pharmacy 35.7 ml/min; Magnesium 1.5 mg/dl (1.7-2.4); Phosphorus 3.3 mg/dl (2.5-4.9); Potassium 5.6 mmol/L (3.5-5.1)
[2024-08-16 15:18] LABS: Folate (Folic Acid),Ser orPlas 8.5 ng/ml (>5.38)
--- NOTE | 2024-08-16 17:34 | Nephrology Consultation ---
Date of Consultation August 16, 2024 Assessment & Plan (1) Electrolyte abnormality: Critical hypomagnesemia on arrival and moderate hyperkalemia. Cause unclear but attributable more than likely to diarrhea and/or medications ordered p.o. mag twice daily lower calcium form for mag 1.5; tendency to hypercalcemia so avoid slo mag next mag, bmp w/ am labs Continue to hold Entresto; was on lowest possible dose prior to admission Care coordinated w/ ED physician and w/ admitting service through the day via TText re mag repletion, IVF, f/u labs; we are in agreement. (2) CKD (chronic kidney disease) stage 4, GFR 15-29 ml/min: Baseline creatinine in the low twos and currently at baseline with history of resistant hypertension and Entresto currently on hold -continue coreg -will give amlodipine 10 mg this evening -evaluate in am for resuming low dose entresto WITH low dose torsemide (3) Diarrhea: as above; Swetha steward will work on getting her GI evaluation closer in if able History of Present Illness Reason for Consultation: Chronic hypomagnesemia and hyperkalemia Requesting Physician: Dr Salcedo Attending Physician: Mariya Alvarez MD History of Present Illness 49-year-old female whom I am asked to evaluate for hypomagnesemia and hyperkalemia was readmitted today after 2 recent admissions for similar issues in the setting of severe diarrhea. Past medical history includes type 2 diabetes, multifactorial chronic metabolic acidosis with ketosis-prone recurrent DKA remotely and c/b acid base status changes related to colectomy and potentially to RTA, class 1 obesity, CKD 4, resistant hypertension, remote history of C. difficile colitis status post total colectomy with 2012 ileostomy reversal; June 2021 hypertensive emergency admission. Also with heart failure with preserved ejection fraction and few details (follows with [facility] cardiology [place]). Also recently admitted here July 19 to 2024 for acute renal failure with small bowel obstruction managed conservatively; presenting creatinine 6 with a potassium of 6.8 and bicarb 11 after a week of diarrhea prior to admission. Creatinine at discharge 1.8 with potassium 3.5 and bicarb 21. Discharged home on amlodipine 10 mg daily, full dose aspirin, sodium bicarbonate 3 tabs p.o. 3 times daily, Entresto, chlorthalidone 12.5 mg daily, spironolactone 12.5 mg daily, torsemide 20 mg daily, Coreg 25 mg twice daily. She does not believe she was taking torsemide after d/c; notes may have missed it on her list. Readmitted here August 08 to August 10 with presenting creatinine 3.7 and potassium 6.8 in the setting of watery diarrhea up to 12 bowel movements daily for several days prior to presentation. Was set up w/ OP GI eval but not until 10/02/24. Does not have well water at home. She felt poorly earlier this week and we obtained labs yesterday which were markedly abnormal and she was directed to the ER. The diarrhea was back w/ 5-6 watery BM daily as well as noting some edema, especially LLE. Was not back on torsemide after recent d/c. On arrival to ED today magnesium was 0.6 with potassium 5.6 and creatinine 2.2. Thyroid labs also noted to be elevated. Her magnesium was aggressively repleted with 3 g IV in the ER and further repletion pending response to this. Started on a bicarb drip for the potassium issues. No sob, no palpitations, no chest pain, no f/c, no diarrhea since arrival here; edema improved some. no gross hematuria or dysuria. no abd pain or n/v. Allergies Allergy/AdvReac Type Severity Reaction Status Date / Time bee venom protein (honey bee) Allergy Intermediate RED, SHORT Verified 07/19/24 16:18 OF BREATH hydralazine AdvReac Intermediate Lower Verified 07/19/24 16:18 Extremity Edema lorazepam AdvReac Intermediate Agitated Verified 07/28/24 07:07 Home Medications Medication Instructions Recorded Confirmed Type allopurinol 300 mg tablet 300 mg PO QAM 01/24/24 08/16/24 History aspirin 325 mg tablet 325 mg PO QAM 01/24/24 08/16/24 History buspirone 15 mg tablet 15 mg PO QAM 01/24/24 08/16/24 History duloxetine 60 mg capsule,delayed 60 mg PO QAM 01/24/24 08/16/24 History release eszopiclone 1 mg tablet (Lunesta) 1 mg PO HS 01/24/24 08/16/24 History omega 1-wwa-aqo-fish oil 1,000 mg 1 cap PO QAM 01/24/24 08/16/24 History (120 mg-180 mg) capsule (Fish Oil) prochlorperazine maleate 10 mg 10 mg PO TID PRN Nausea And 01/24/24 08/16/24 History tablet (Compazine) Vomiting sodium bicarbonate 650 mg tablet 1,950 mg PO TID 01/24/24 08/16/24 History Medical Thc 1 dose PO UD PRN NEEDED 03/06/24 08/16/24 History atorvastatin 80 mg tablet 80 mg PO QAM 03/06/24 08/16/24 History insulin degludec 200 unit/mL (3 100 unit subcut QAM 03/06/24 08/16/24 History mL) subcutaneous pen (Tresiba FlexTouch U-200 insulin) blood-glucose meter (ReliOn Prime 05/10/24 08/16/24 History Meter) cholecalciferol (vitamin D3) 25 2,000 unit PO QAM 05/10/24 08/16/24 History mcg (1,000 unit) capsule insulin lispro 100 unit/mL 30 sliding scale dose subcut TID 05/10/24 08/16/24 History subcutaneous pen (Humalog KwikPen (U-100) Insulin) lidocaine 5 % topical patch 1 patch transdermal DAILY PRN Pain 07/19/24 08/16/24 History tirzepatide 2.5 mg/0.5 mL 2.5 mg subcut WK 07/19/24 08/16/24 History subcutaneous pen injector (Opal) carvedilol 25 mg tablet 25 mg PO BIDM #30 tabs 08/01/24 08/16/24 Rx baclofen 10 mg tablet 10 mg PO TID PRN muscle spasm #0 08/10/24 08/16/24 Rx tabs magnesium chloride 71.5 mg 71.5 mg PO BID 30 days #60 tabs 08/10/24 08/16/24 Rx (magnesium chloride) tablet,delayed release (Slow-Mag) pantoprazole 20 mg tablet,delayed 20 mg PO DAILY 30 days #30 tabs 08/10/24 08/16/24 Rx release (Protonix) sacubitril 24 mg-valsartan 26 mg 1 tab PO BID 30 days #60 tabs 08/10/24 08/16/24 Rx tablet Patient History Medical History Acute kidney injury superimposed on CKD History of endometriosis History of renal dialysis (04/2017) - [facility] - ARF 2/2 DKA Hx of Clostridium difficile infection 2011 - treated, no problems since Chronic nausea Surgical History History of esophagogastroduodenoscopy (EGD) Hx of colonoscopy History of open reduction and internal fixation (ORIF) procedure (2018) left fibula Hx of tracheostomy (2013) R/T COMPLICATIONS AFTER ILEOSTOMY REVERSAL SURGERY IN 2011; HAS SINCE BEEN REVERSED History of rotator cuff surgery (2017) RT History of lumbar spinal fusion (2006) History of reversal of ileostomy (2012) History of ileostomy (2012) Status post cholecystectomy (2017) "cholelithiasis" Status post partial colectomy (2012) "for C diff colitis" Family History Mother Diabetes Other No family history of adverse response to anesthesia Social History Smoking Status: Never smoker Tobacco Type: Cigarettes Cigarettes Per Day: 5; Second Hand Exposure: No; Do You Dip or Chew Tobacco: No; Hx Alcohol Use: No Hx Substance Use: No Preferred Language: Emirati Communication Ability: Effective Dining Room Supervisor Required: No Beliefs That Will Affect Care: None marital status: Current Living Situation: Significant Other Feels Safe at Home: Yes Assistive Devices: None Review of Systems 2 Review of Systems: All systems reviewed & are unremarkable except as noted in HPI & below Physical Exam 2 Constitutional: well developed and well nourished Eyes: EOM intact bilaterally ENMT: Ears: no external ear abnormality Nose: no external nose abnormality Mouth: + dry oral mucous membranes Neck: no nuchal rigidity Respiratory: normal respiratory effort Auscultation: + diminished lung sounds Gastrointestinal (Abdomen): Inspection/Auscultation: normal bowel sounds P ercussion/Palpation: abdomen soft; abdomen nontender Musculoskeletal: Extremities: strength 5/5 throughout Skin: no rashes, warm and dry Neurologic: pizarro, fluent speech, no tremor Results & Data Vital Signs (Past 12 Hours) Vital Signs Temp Pulse Pulse Resp BP BP Pulse Ox 08/16/24 14:19 05/09/25 14:00 36.6 C 66 139/77 96 08/16/24 13:23 67 20 111/74 95 08/16/24 11:19 68 08/16/24 10:31 67 12 123/81 96 08/16/24 10:02 64 22 139/102 H 97 08/16/24 09:30 64 18 128/80 96 08/16/24 09:00 68 21 139/84 99 08/16/24 08:31 67 16 98 08/16/24 08:00 66 20 123/70 97 08/16/24 07:06 68 08/16/24 06:42 36.5 C 73 18 121/75 98 O2 Del Method 08/16/24 14:19 Room Air 08/16/24 14:00 Room Air 08/16/24 13:23 Room Air 08/16/24 11:19 08/16/24 10:31 08/16/24 10:02 08/16/24 09:30 08/16/24 09:00 08/16/24 08:31 Room Air 08/16/24 08:00 08/16/24 07:06 08/16/24 06:42 Room Air Laboratory Results 08/16/24 06:55 08/16/24 14:11 mag 1.5 Diagnostic Findings Chest x-ray without acute cardiopulmonary process. (3) Diarrhea Diarrhea type: unspecified type Qualified Code(s): R19.7 - Diarrhea, unspecified
[2024-08-16] MEDS: carvediloL 25 MG TAB PO SCH (18:06)
[2024-08-16 18:24] LABS: Chloride Random Urine 70 mmol/L; Sodium Random Urine 63 mmol/L
[2024-08-16] MEDS: LANTUS PER UNIT CHARGE SC ONE (20:09)
[2024-08-16] MEDS: traMADol HCL 50 MG TABLET PO STA (20:09)
[2024-08-16] MEDS: HEPARIN SOD 5,000 UNIT/0.5 ML VIAL SQ SCH (20:11)
--- NOTE | 2024-08-16 20:14 | Pharmacy Report ---
Pharmacy Glycemic Short Note 2 - Date of Service August 16, 2024 - Glycemic Short BSG Results (Last 24 hours): 08/16/24 08/16/24 08/16/24 06:55 14:11 14:17 Glucose 204 H 174 H POC Glucose 159 H 08/16/24 16:14 Glucose POC Glucose 200 H OUTPATIENT ANTIDIABETIC REGIMEN: * Tresiba 100 units QAM, Humalog 30 units TID (varies) * A1c 7.6% 08/09/24 (in the setting of CKD) ASSESSMENT: * Patient admitted with hypomagnesemia, hyperkalemia, history of CKD stage 4, type II diabetes. * Reviewed recent admission- patient requirements downtrended with increase in SCR. Appears to be at baseline today. BSG 156 mg/dL without basal insulin administered this AM per report * Will be conservative with basal this evening given previous admission data/lower requirements while inpatient. Novolog parameters c/w previous admission. * Patient is receiving a bicarb infusion with dextrose @ 75 ml/hr. PLAN FOR INPATIENT GLYCEMIC CONTROL: * Hold outpatient oral diabetes medications * Basal insulin * Lantus 20-32 units per scale x 1; reassess in AM * Bolus insulin * NovoLog per scale ACHS or Q6hrs while NPO * Goal Range: Low 110 mg/dL - High 140 mg/dL * Correction Factor: 25 mg/dL/unit * Nutritional / Prandial insulin per carb ratio of 1 unit per 8 grams CHO consumed
[2024-08-16] MEDS: MAGNESIUM OXIDE 400 MG TAB PO SCH (20:17)
[2024-08-16] MEDS ORDERED: VALSARTAN/SACUBITRIL 26/24MG TAB PO SCH (21:00)
[2024-08-16] MEDS ORDERED: NON-FORMULARY MEDICATION (Insulin Degludec [Tresiba Flextouch U-200] 200 unit/mL (3 mL) in SQ SCH (21:00)
--- NOTE | 2024-08-16 21:43 | Electrocardiogram Report ---
Test Reason : Blood Pressure : */* mmHG Vent. Rate : 69 BPM Atrial Rate : 69 BPM P-R Int : 164 ms QRS Dur : 90 ms QT Int : 374 ms P-R-T Axes : 32 39 85 degrees QTcB Int : 400 ms Normal sinus rhythm Normal ECG Confirmed by Christopher Hannon ([id number]) on 08/16/2024 9:42:47 PM Referred By: Wiliam Garsia Confirmed By: Christopher Hannon
[2024-08-17] MEDS ORDERED: CHLORASEPTIC (PHENOL) 1.4% SOLN 180 ML BTL MT PRN (04:45)
[2024-08-17] MEDS: LEVOTHYROXINE SODIUM 75 MCG TABLET PO SCH (06:01)
[2024-08-17] MEDS ORDERED: LEVOTHYROXINE SODIUM 150 MCG TABLET PO SCH (06:30)
[2024-08-17 08:11] LABS: Hematocrit (blood only) 30.3 % (37.0-47.0); Hemoglobin 9.9 g/dl (12.0-16.0); Mean Corpuscular Hemoglobin 29.6 pg (25.0-34.0); Mean Corpuscular Hgb Conc 32.7 g/dL (32.0-36.0); Mean Corpuscular Volume 90.7 fL (80.0-100.0); Mean Platelet Volume 11.1 fL (9.4-12.4); Platelet Count 163 K/uL (130-400); RDW Coefficient of Variation 14.3 % (11.5-14.5); RDW Standard Deviation 46.9 fL (36.4-46.3); Red Blood Count 3.34 M/uL (4.20-5.40); White Blood Count 4.98 K/ul (4.8-10.8)
[2024-08-17 08:26] LABS: Anion Gap 4 (3-11); BUN Creatinine Ratio 12.8 (10-20); Blood Urea Nitrogen 26 mg/dl (6-23); C Reactive Protein < 0.50 mg/dl (0-0.5); Calcium 10.2 mg/dl (8.6-10.3); Carbon Dioxide 26 mmol/L (21-32); Chloride 107 mmol/L (98-107); Creatinine Clr Calc Pharmacy 36.3 ml/min; Glucose 140 mg/dl (70-99(Fasting)); Magnesium 1.8 mg/dl (1.7-2.4); Phosphorus 2.9 mg/dl (2.5-4.9); Potassium 5.1 mmol/L (3.5-5.1); Sodium 137 mmol/L (136-145)
[2024-08-17 08:28] LABS: Estimated Average Glucose 163 mg/dl; Hemoglobin A1C 7.3 % (4.5-5.6)
[2024-08-17] MEDS: ASPIRIN 325 MG ECTAB PO SCH (08:56)
[2024-08-17] MEDS: PANTOprazole 40 MG TAB PO SCH (08:56)
[2024-08-17] MEDS: CHOLECALCIFEROL 25 MCG (1000 UNITS) TAB PO SCH (08:56)
[2024-08-17] MEDS: allopurinoL 300 MG TAB PO SCH (08:56)
[2024-08-17] MEDS: OMEGA-3 (PURIFIED FISH OIL) 1 GM CAP PO SCH (08:56)
[2024-08-17] MEDS: ATORVASTATIN 40 MG TAB PO SCH (08:56)
[2024-08-17] MEDS: DULoxetine HCL 60 MG CAP PO SCH (08:57)
[2024-08-17] MEDS: busPIRone 15 MG TAB PO SCH (08:57)
[2024-08-17] MEDS: OPTIRAY 320 100ml IV ONE (09:30)
--- NOTE | 2024-08-17 10:01 | CT Scan Report ---
CT abdomen pelvis wo/w con CLINICAL HISTORY: diarrhea with critical hypomagnesemia COMPARISON STUDY: 07/19/2024 FINDINGS: ABDOMEN: Gallbladder is surgically absent. Liver, spleen, pancreas, and adrenal glands are unremarkab le. There are scattered atherosclerotic calcifications. No abdominal aortic aneurysm. There are a few small cysts at the kidneys. Kidneys show no hydronephrosis or calculi. Pelvis: Uterus and adnexa are grossly unremarkable. Urinary bladder is nondistended. Stable partial c olectomy with sigmoid colon surgical anastomosis. No bowel inflammation or obstruction seen. No free fluid, free air, or abscess. No enlarged adenopathy. Osseous structures: Stable metallic fusion at L4-5. No acute osseous findings. IMPRESSION: No acute findings. ACT 112: Negative or not required by law. Electronically signed by: José Luis Savage M.D. 08/17/2024 9:59 AM
--- NOTE | 2024-08-17 12:43 | Hospitalist Progress Note ---
Date of Service August 17, 2024 Assessment & Plan (1) Electrolyte abnormality: Plan: The patient is a 49 year old female with a past medical history of CKD Stage 4 with chronic metabolic acidosis, DM Type II with insulin dependency, HTN, dyslipidemia, Electrolyte disorder, C-Diff colitis, anemia, and other problems who presented to the ED today for abnormal labs- hypomag, hyperkalemia, elevated creatinine. She felt weak at home, contacted Nephrology for labs to be checked. Found to have K+6 and hypomag with the recommendation from Nephrology to be be admitted for electrolyte replacement and monitoring of kidney functioning. Electrolyte abnormality/CKD: * improved today, feels back to baseline * restart entresto, start low dose torsemide per nephrology recs * stop bicarbonate drip, start home bicarbonate * AM cortisol, other labs reassuring * check stool biofire, CT abdomen/pelvis today * appreciate nephrology recs and assistance with case * restart home anxiety meds Diabetes Mellitus, Type II uncontrolled: * Baseline A1C unknown- will check A1C with morning labs; patient reports baseline BSG pre meals in 150's * Continue home long-acting insulin regimen with lantus here for now * SSI ordered- Goal range BSG 140-180, Correction Factor 25 and Carb coverage 8 * Acuchecks ACHS Hypertension: * BP Goal 130/80; BP now 120's/70's * Currently managed with Carvedilolol and entresto * restarted torsemide and entresto today Hypothyroidism: * TSH elevated with low Free T4- replace with weight-based levothyroxine- ordered * Patient reports having thyroid ultrsound outpatient via [facility]- no records available. * f/u thyroid outpatient Dyslipidemia: * Continue home statin therapy * Check labs as needed (2) Chronic kidney disease (CKD): (3) Diabetes type 2, uncontrolled: (4) Hypertension: (5) Dyslipidemia: Plan I spent a total of 55 minutes in direct patient care, including [id number] time with the patient and/or family, reviewing medical records, ordering and reviewing diagnostic tests, and coordinating care with other healthcare providers. This time includes: history taking, physical examination, medical decision making, counseling, ECG interpretation, imaging interpretation, lab interpretation, orders, and education, excluding time spent in the performance of separately billed services. Admission and Anticipated Discharge Date Admission Date: August 16, 2024 Subjective Patient seen and examined at bedside. Feeling much better today. No diarrhea noted at this time. Review of Systems Review of Systems: CONSTITUTIONAL: Patient denies fevers, chills, sweats and weight changes. EYES: Patient denies any visual symptoms. EARS, NOSE, AND THROAT: No difficulties with hearing. No symptoms of rhinitis or sore throat. CARDIOVASCULAR: Patient denies chest pains, palpitations, orthopnea and paroxysmal nocturnal dyspnea. RESPIRATORY: No dyspnea on exertion, no wheezing or cough. GI: No nausea, vomiting, diarrhea, constipation, abdominal pain, hematochezia or melena. : No urinary hesitancy or dribbling. No nocturia or urinary frequency. No abnormal urethral discharge. MUSCULOSKELETAL: No myalgias or arthralgias. NEUROLOGIC: No chronic headaches, no seizures. Patient denies numbness, tingling or weakness. PSYCHIATRIC: Patient denies problems with mood disturbance. No problems with anxiety. ENDOCRINE: No excessive urination or excessive thirst. DERMATOLOGIC: Patient denies any rashes or skin changes. Physical Exam Physical Exam: Gen: A&O 3 NAD HEENT: NCAT, EOMI, not icteric. External ears normal. No rhinorrhea. Moist mucous membranes. Neck: Supple, full range of motion, no observable masses, No meningeal sign. Lungs: No Respiratory distress. CV: RRR, no edema. Abdomen: Soft, nondistended, No rebound tenderness. MSK: No joint swelling, no redness. Skin: No rashes, petechiae, lesions. Normal color per patient. Neuro: Normal Gait, Grossly intact. Psych: Appropriate for situation. Results & Data Results & Data Vital Signs (Past 12 Hours) Vital Signs Temp Pulse Resp BP Pulse Ox O2 Del Method 08/17/24 10:58 36.8 C 70 23 149/88 H 95 Room Air 08/17/24 10:40 Room Air 08/17/24 07:31 36.7 C 73 19 138/79 94 Room Air 08/17/24 05:15 36.6 C 68 18 158/81 H 96 Room Air Laboratory Results -personally reviewed, improved magnesium/potassium, K decreased to 5.1 (3) Diabetes type 2, uncontrolled Glycemic state: with hyperglycemia Qualified Code(s): E11.65 - Type 2 diabetes mellitus with hyperglycemia (4) Hypertension Hypertension type: primary hypertension Qualified Code(s): I10 - Essential (primary) hypertension
[2024-08-17 12:45] LABS: Adenovirus F 40/41 PCR Not Detected (NotDetected); Astrovirus PCR Not Detected (NotDetected); Campylobacter PCR Not Detected (NotDetected); Cryptosporidium PCR Not Detected (NotDetected); Cyclospora cayetanensis PCR Not Detected (NotDetected); Entamoeba histolytica PCR Not Detected (NotDetected); Enteroaggregative E.coli(EAEC) Not Detected (NotDetected); Enteropathogenic E.coli (EPEC) Not Detected (NotDetected); Enterotoxigenic E.coli (ETEC) Not Detected (NotDetected); Giardia lamblia PCR Not Detected (NotDetected); Norovirus GI/GII PCR Not Detected (NotDetected); Plesiomonas shigelloides PCR Not Detected (NotDetected); Rotavirus A PCR Not Detected (NotDetected); Salmonella PCR Not Detected (NotDetected); Sapovirus PCR Not Detected (NotDetected); Shiga-like Toxin E.coli (STEC) Not Detected (NotDetected); Shigella/Enteroinvasive E.coli Not Detected (NotDetected); Vibrio cholerae PCR Not Detected (NotDetected); Vibrio species PCR Not Detected (NotDetected); Yersinia enterocolitica PCR Not Detected (NotDetected)
[2024-08-17] MEDS: LANTUS PER UNIT CHARGE SC SCH (12:45)
[2024-08-17] MEDS: TORSEMIDE 10 MG TAB PO SCH (13:10)
[2024-08-17] MEDS: SODIUM BICARBONATE 650 MG TAB PO SCH (13:10)
[2024-08-17] MEDS: BACLOFEN 10 MG TAB PO PRN (21:52)
[2024-08-17] MEDS: ESZOPICLONE 1 MG TAB PO SCH (21:52)
[2024-08-17] MEDS: ALPRAZolam 0.5 MG TABLET PO SCH (21:52)
[2024-08-17] MEDS: VALSARTAN/SACUBITRIL 26/24MG TAB PO SCH (21:56)
[2024-08-18 06:45] LABS: Hematocrit (blood only) 30.6 % (37.0-47.0); Hemoglobin 9.9 g/dl (12.0-16.0); Mean Corpuscular Hemoglobin 29.4 pg (25.0-34.0); Mean Corpuscular Hgb Conc 32.4 g/dL (32.0-36.0); Mean Corpuscular Volume 90.8 fL (80.0-100.0); Mean Platelet Volume 11.1 fL (9.4-12.4); Platelet Count 145 K/uL (130-400); RDW Standard Deviation 46.7 fL (36.4-46.3); Red Blood Count 3.37 M/uL (4.20-5.40); White Blood Count 4.05 K/ul (4.8-10.8)
[2024-08-18 07:09] LABS: BUN Creatinine Ratio 13.5 (10-20); Creatinine Clr Calc Pharmacy 38.4 ml/min; Magnesium 1.6 mg/dl (1.7-2.4); Phosphorus 3.3 mg/dl (2.5-4.9); Potassium 4.6 mmol/L (3.5-5.1)
[2024-08-18 07:57] VITALS: O2SAT 96
[2024-08-18] MEDS: MAGNESIUM SULFATE / D5W 1 GM/100 ML BAG IV SCH (08:40)
[2024-08-18 11:07] VITALS: BP 156/90; PULSE 64; RESP 18; TEMP 97.7
--- NOTE | 2024-08-18 11:13 | Discharge Summary ---
Discharge Summary Date of Service August 18, 2024 Principal Dx & Hospital Course #1 = Principal Diagnosis (1) Electrolyte abnormality: The patient is a 49 year old female with a past medical history of CKD Stage 4 with chronic metabolic acidosis, DM Type II with insulin dependency, HTN, dyslipidemia, Electrolyte disorder, C-Diff colitis, anemia, and other problems who presented to the ED today for abnormal labs- hypomag, hyperkalemia, elevated creatinine. She felt weak at home, contacted Nephrology for labs to be checked. Found to have K+6 and hypomag with the recommendation from Nephrology to be be admitted for electrolyte replacement and monitoring of kidney functioning. Electrolyte abnormality/CKD: * improved today, feels back to baseline * continue entresto, continue low dose torsemide per nephrology recs * continue home bicarbonate * AM cortisol, other labs reassuring * appreciate nephrology recs and assistance with case * restart home anxiety meds Diabetes Mellitus, Type II uncontrolled: * Baseline A1C unknown- will check A1C with morning labs; patient reports baseline BSG pre meals in 150's * Continue home long-acting insulin regimen with lantus here for now * SSI ordered- Goal range BSG 140-180, Correction Factor 25 and Carb coverage 8 * Acuchecks ACHS Hypertension: * BP Goal 130/80; BP now 120's/70's * Currently managed with Carvedilolol and entresto * continue torsemide and entresto today Hypothyroidism: * TSH elevated with low Free T4- replace with weight-based levothyroxine- ordered * Patient reports having thyroid ultrsound outpatient via [facility]- no records available. * f/u thyroid outpatient Dyslipidemia: * Continue home statin therapy * Check labs as needed (2) Chronic kidney disease (CKD): (3) Diabetes type 2, uncontrolled: (4) Hypertension: (5) Dyslipidemia: Plan I spent a total of 55 minutes in direct patient care, including [id number] time with the patient and/or family, reviewing medical records, ordering and reviewing diagnostic tests, and coordinating care with other healthcare providers. This time includes: history taking, physical examination, medical decision making, counseling, ECG interpretation, imaging interpretation, lab interpretation, orders, and education, excluding time spent in the performance of separately billed services. Notes For Next Care Provider The patient is a 49 year old female with a past medical history of CKD Stage 4 with chronic metabolic acidosis, DM Type II with insulin dependency, HTN, dyslipidemia, Electrolyte disorder, C-Diff colitis, anemia, and other problems who presented to the ED today for abnormal labs- hypomag, hyperkalemia, elevated creatinine. On medicine, given aggressive replenishment of electrolytes with improvement. Extensive workup sent for outpatient follow up of rare causes of hypomagnesemia. Nephrology consulted, medications adjusted (entresto, start torsemide). Stopped PPI and other meds that could hurt mag absorption. Diarrhea stopped before discharge. On 08/18/2024 patient medically stable for discharge home. To do: [ ] f/u labs in one week [ ] f/u with GI, nephrology [ ] get thyroid US, f/u TSH in 3 months post starting levothyroxine Medication Changes From Visit Acetaminophen (Acetaminophen 325 Mg Tab) 650 mg PO Q4H PRN PRN Reason: Pain or Fever Stop: 09/15/24 13:43 Last Admin: 08/17/24 21:52 Dose: 650 mg Documented By: Admin: 08/17/24 08:56 Dose: 650 mg Documented By: Admin: 08/16/24 14:24 Dose: 650 mg Documented By: BEAR Allopurinol (Allopurinol 300 Mg Tab) 300 mg PO [facility] Stop: 09/16/24 08:59 Last Admin: 08/18/24 08:31 Dose: 300 mg Documented By: Admin: 08/17/24 08:56 Dose: 300 mg Documented By: BEAR Alprazolam (Alprazolam 0.5 Mg Tablet) 0.5 mg PO PM [facility] Stop: 09/16/24 20:59 Last Admin: 08/17/24 21:52 Dose: 0.5 mg Documented By: LIZBETH Aspirin (Aspirin 325 Mg Ectab) [facility] Stop: 09/16/24 08:59 Last Admin: 08/18/24 08:31 Dose: 325 mg Documented By: Admin: 08/17/24 08:56 Dose: 325 mg Documented By: BEAR Atorvastatin Calcium (Atorvastatin 40 Mg Tab) [facility] [place] Stop: 09/16/24 08:59 Last Admin: 08/18/24 08:31 Dose: 80 mg Documented By: Admin: 08/17/24 08:56 Dose: 80 mg Documented By: BEAR Baclofen (Baclofen 10 Mg Tab) 10 mg PO TID PRN PRN Reason: back pain Stop: 09/16/24 13:59 Last Admin: 08/17/24 21:52 Dose: 10 mg Documented By: LIZBETH Buspirone HCl (Buspirone 15 Mg Tab) 15 mg PO QAM [facility] Stop: 09/16/24 08:59 Last Admin: 08/18/24 08:31 Dose: 15 mg Documented By: Admin: 08/17/24 08:57 Dose: 15 mg Documented By: BEAR Carvedilol (Carvedilol 25 Mg Tab) 25 mg PO BIDM [facility] Stop: 09/15/24 16:59 Last Admin: 08/18/24 08:31 Dose: 25 mg Documented By: Admin: 08/17/24 17:46 Dose: 25 mg Documented By: Admin: 08/17/24 08:56 Dose: 25 mg Documented By: Admin: 08/16/24 18:06 Dose: 25 mg Documented By: BEAR Duloxetine HCl (Duloxetine Hcl 60 Mg Cap) [facility] [place] Stop: 09/16/24 08:59 Last Admin: 08/18/24 08:33 Dose: 60 mg Documented By: Admin: 08/17/24 08:57 Dose: 60 mg Documented By: BEAR Eszopiclone (Eszopiclone 1 Mg Tab) 1 mg PO PM [facility] Stop: 09/16/24 20:59 Last Admin: 08/17/24 21:52 Dose: 1 mg Documented By: LIZBETH Fish Oil ([place]-3 (Purified Fish Oil) 1 Gm Cap) 1 cap PO QAM [facility] Stop: 09/16/24 08:59 Last Admin: 08/18/24 08:32 Dose: 1 cap Documented By: Admin: 08/17/24 08:56 Dose: 1 cap Documented By: BEAR Heparin Sodium (Porcine) (Heparin Sod 5,000 Unit/0.5 Ml Vial) 5,000 units SQ Q12 [facility] Stop: 09/15/24 20:59 Last Admin: 08/18/24 08:33 Dose: 5,000 units Documented By: Admin: 08/17/24 21:57 Dose: 5,000 units Documented By: Admin: 08/17/24 08:56 Dose: 5,000 units Documented By: Admin: 08/16/24 20:11 Dose: 5,000 units Documented By: DAHIANA Magnesium Sulfate/Dextrose (Magnesium Sulfate / D5w) 1 gm in 100 mls @ 50 mls/hr IV Q2H [facility] Stop: 08/18/24 14:29 Last Admin: 08/18/24 10:50 Dose: 50 mls/hr Documented By: Infusion: 08/18/24 10:50 Dose: Infused Documented By: Admin: 08/18/24 08:40 Dose: 50 mls/hr Documented By: BEAR Insulin Aspart (Insulin Aspart Per Unit Charge) 0 units SC ACHS [facility] Stop: 09/15/24 14:17 Last Admin: 08/18/24 08:31 Dose: 6 units Documented By: BEAR Co-signed By: TOBY Admin: 08/17/24 21:54 Dose: Not Given Documented By: Admin: 08/17/24 17:46 Dose: 5 units Documented By: BEAR Co-signed By: MEET Admin: 08/17/24 12:45 Dose: 10 units Documented By: BEAR Co-signed By: TOBY Admin: 08/17/24 08:56 Dose: 7 units Documented By: BEAR Co-signed By: VENANCIO Admin: 08/16/24 20:09 Dose: 1 units Documented By: DAHIANA Co-signed By: KAMRYN Admin: 08/16/24 18:06 Dose: 9 units Documented By: BEAR Co-signed By: VENANCIO Admin: 08/16/24 14:44 Dose: 5 units Documented By: BEAR Co-signed By: VENANCIO Insulin Glargine (Lantus Per Unit Charge) 50 units SC QAM [facility] Stop: 09/16/24 12:29 Last Admin: 08/18/24 08:32 Dose: 50 units Documented By: BEAR Co-signed By: TOBY Admin: 08/17/24 12:45 Dose: 50 units Documented By: BEAR Co-signed By: TOBY Levothyroxine Sodium (Levothyroxine Sodium 75 Mcg Tablet) 75 mcg PO DAILYBB [facility] Stop: 09/16/24 06:29 Last Admin: 08/18/24 06:33 Dose: 75 mcg Documented By: Admin: 08/17/24 06:01 Dose: 75 mcg Documented By: DAHIANA Magnesium Oxide (Magnesium Oxide 400 Mg Tab) 400 mg PO BID [facility] Stop: 09/15/24 20:59 Last Admin: 08/18/24 08:32 Dose: 400 mg Documented By: Admin: 08/17/24 21:55 Dose: 400 mg Documented By: Admin: 08/17/24 08:56 Dose: 400 mg Documented By: Admin: 08/16/24 20:17 Dose: 400 mg Documented By: DAHIANA Sacubitril/Valsartan (Valsartan/Sacubitril 26/24mg Tab) 1 tab PO BID [facility] Stop: 09/16/24 20:59 Last Admin: 08/18/24 08:32 Dose: 1 tab Documented By: Admin: 08/17/24 21:56 Dose: 1 tab Documented By: LIZBETH Sodium Bicarbonate (Sodium Bicarbonate 650 Mg Tab) 1,950 mg PO TID [facility] Stop: 09/16/24 13:59 Last Admin: 08/18/24 08:32 Dose: 1,950 mg Documented By: Admin: 08/17/24 21:53 Dose: 1,950 mg Documented By: Admin: 08/17/24 13:10 Dose: 1,950 mg Documented By: BEAR Torsemide (Torsemide 10 Mg Tab) 10 mg PO QAM [facility] Stop: 09/16/24 12:44 Last Admin: 08/18/24 08:32 Dose: 10 mg Documented By: Admin: 08/17/24 13:10 Dose: 10 mg Documented By: BEAR Vitamin D (Cholecalciferol 25 Mcg (1000 Units) Tab) 50 mcg PO QAM [facility] Stop: 09/16/24 08:59 Last Admin: 08/18/24 08:32 Dose: 50 mcg Documented By: Admin: 08/17/24 08:56 Dose: 50 mcg Documented By: BEAR Admission HPI Per Admitting Provider The patient is a 49 year old female with a past medical history of CKD Stage 4 with chronic metabolic acidosis, DM Type II with insulin dependency, HTN, dyslipidemia, Electrolyte disorder, C-Diff colitis, anemia, and other problems who presented to the ED today for abnormal labs- hypomag, hyperkalemia, elevated creatinine. She felt weak at home, contacted Nephrology for labs to be checked. Found to have K+6 and hypomag with the recommendation from Nephrology to be be admitted for electrolyte replacement and monitoring of kidney functioning. She denies chest pain, palpitations, falls, dizziness, breathing difficulty, N/V, fever, chills, night sweats, weight fluctuations, urinary symptoms. She has had multiple admissions recently: 07/19-08/01 for weakness, vomiting, abdominal pain found to have SBO and renal failure, known to [facility]. She returned to the ED on 08/08/24 with abnormal labs ( Potassium 6.8; Creat 3.7; baseline Creat 1.7) and with diarrhea. She had peaked T waves on EKG with Qtc 378. She was given Lokelma and Calcium Gluc in the ED, then placed on bicarb drip. 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 Creatinine steadily improved throughout the hospitalization and was 2.4 at discharge, potassium 4.2, Mag 1.4, Phos 2.3. In the emergency department today, her labs were K+ 5.6, Creat 2.2, Mag 0.6. She received 2 bags Magnesium in the ED and I personally ordered an additional 1 gm Mag infusion. Additionally, TSH elevated 7.168, Free T4 0.46. EKG showing NSR with vent rate 69; QTc 400. Chest Xray showing no evidence of consolidation or collapse; no significant interval changes. No evidence of leukocytosis. Hemodynamically stable and BP at goal. Bicarb drip initiated per Nephrology with Mag replacement. History obtained primarily from the patient and past records. Discharge Exam Gen: A&O 3 NAD HEENT: NCAT, EOMI, not icteric. External ears normal. No rhinorrhea. Moist mucous membranes. Neck: Supple, full range of motion, no observable masses, No meningeal sign. Lungs: No Respiratory distress. CV: RRR, no edema. Abdomen: Soft, nondistended, No rebound tenderness. MSK: No joint swelling, no redness. Skin: No rashes, petechiae, lesions. Normal color per patient. Neuro: Normal Gait, Grossly intact. Psych: Appropriate for situation. Updated Medication List Medication Instructions Recorded Confirmed Type allopurinol 300 mg tablet 300 mg PO QAM 01/24/24 08/16/24 History aspirin 325 mg tablet 325 mg PO QAM 01/24/24 08/16/24 History buspirone 15 mg tablet 15 mg PO QAM 01/24/24 08/16/24 History duloxetine 60 mg capsule,delayed 60 mg PO QAM 01/24/24 08/16/24 History release eszopiclone 1 mg tablet (Lunesta) 1 mg PO HS 01/24/24 08/16/24 History omega 0-lxr-gbb-fish oil 1,000 mg 1 cap PO QAM 01/24/24 08/16/24 History (120 mg-180 mg) capsule (Fish Oil) prochlorperazine maleate 10 mg 10 mg PO TID PRN Nausea And 01/24/24 08/16/24 History tablet (Compazine) Vomiting sodium bicarbonate 650 mg tablet 1,950 mg PO TID 01/24/24 08/16/24 History Medical Thc 1 dose PO UD PRN NEEDED 03/06/24 08/16/24 History atorvastatin 80 mg tablet 80 mg PO QAM 03/06/24 08/16/24 History insulin degludec 200 unit/mL (3 100 unit subcut QAM 03/06/24 08/16/24 History mL) subcutaneous pen (Tresiba FlexTouch U-200 insulin) blood-glucose meter (ReliOn Prime 05/10/24 08/16/24 History Meter) cholecalciferol (vitamin D3) 25 2,000 unit PO QAM 05/10/24 08/16/24 History mcg (1,000 unit) capsule insulin lispro 100 unit/mL 30 sliding scale dose subcut TID 05/10/24 08/16/24 History subcutaneous pen (Humalog KwikPen (U-100) Insulin) lidocaine 5 % topical patch 1 patch transdermal DAILY PRN Pain 07/19/24 08/16/24 History tirzepatide 2.5 mg/0.5 mL 2.5 mg subcut WK 07/19/24 08/16/24 History subcutaneous pen injector (Opal) carvedilol 25 mg tablet 25 mg PO BIDM #30 tabs 08/01/24 08/16/24 Rx baclofen 10 mg tablet 10 mg PO TID PRN muscle spasm #0 08/10/24 08/16/24 Rx tabs magnesium chloride 71.5 mg 71.5 mg PO BID 30 days #60 tabs 08/10/24 08/16/24 Rx (magnesium chloride) tablet,delayed release (Slow-Mag) pantoprazole 20 mg tablet,delayed 20 mg PO DAILY 30 days #30 tabs 08/10/24 08/16/24 Rx release (Protonix) sacubitril 24 mg-valsartan 26 mg 1 tab PO BID 30 days #60 tabs 08/10/24 08/16/24 Rx tablet levothyroxine 75 mcg tablet 75 mcg PO DAILYBB 30 days #30 tabs 08/18/24 Rx (Synthroid) magnesium oxide 400 mg (241.3 mg 400 mg PO BID #60 tabs 08/18/24 Rx magnesium) tablet ondansetron 4 mg disintegrating 4 mg PO Q8H PRN nausea and 08/18/24 Rx tablet vomiting 5 days #14 tabs torsemide 10 mg tablet 10 mg PO QAM #30 tabs 08/18/24 Rx Hospital Stay Data Consultations 08/16/24 09:19 ED Decision to Admit Stat 08/16/24 10:50 Consult Nephrology Routine 08/16/24 15:06 Consult Gastroenterology Routine Diagnostic Imagining Performed 08/17/24 07:55 CT abdomen pelvis wo/w con Urgent Pending Results Patient Have Any Pending Studies at Discharge: No Discharge Instructions Given to Patient (Per Discharging Provider) 1. Please take magnesium supplementation as prescribed. 2. Please get follow up labs in one week. 3. Please follow up with PCP, GI, nephrology outpatient. 4. Take medications as prescribed. 5. Follow up with PCP for repeat TSH in 3 months. Total Time Total Time Spent Total Time Spent (In Minutes): I spent a total of 35 minutes in direct patient care, including [id number]-[id number] time with the patient and/or family, reviewing medical records, ordering and reviewing diagnostic tests, and coordinating care with other healthcare providers. This time includes: history taking, physical examination, medical decision making, counseling, ECG interpretation, imaging interpretation, lab interpretation, orders, and education, excluding time spent in the performance of separately billed services.
[2024-08-21 11:52] LABS: Magnesium, Random Urine 29 mg/g creat (22-130)
== END 2024-08-18 15:33 | disposition home or self-care (01) | DRG 641 ==
LOC: ED 06:38 → SUATTDRO 10:13 → 4W 10:13

== ENCOUNTER 2024-09-30 14:08 | Observation (INO) ==
--- NOTE | 2024-09-30 14:50 | Emergency Department Note ---
ED DC CONDITION Conditon at Discharge Condition at Discharge: Good Impression & Plan Hypercalcemia, Acute hyperkalemia, Altered mental status, CKD (chronic kidney disease) stage 4, GFR 15-29 ml/min ED Provider Note NAME: AMBIKA CORCORAN AGE: 49 SEX: F : 1975 ARRIVES VIA: Walk-In INFORMANT: Patient, ED PROVIDER(S): Mariusz Novak MD CHIEF COMPLAINT: Confusion, outpatient referral MEDICAL DECISION MAKING: Patient presents due to concern for confusion. IV was established and blood work was obtained. Patient's cause may be secondary to hypercalcemia as this was noted in the outpatient blood work. Patient's blood work shows a white count of 12.8 with hemoglobin 11 platelet count is unremarkable. Patient's kidney function with creatinine 2.4. Potassium of 5.3. LFTs are unremarkable. The patient's calcium is 11.4. Patient ordered 500 of IV fluids. Given the patient's hypercalcemia as well as the confusion I did speak the over the hospitalist service. Patient was admitted to the medicine service by LINDA Suarez and Dr. Francisco. Discussion w/ other healthcare providers: None Prior /Outside records reviewed: I reviewed the patient's outpatient blood work which showed an elevated calcium. Differential diagnosis: Infection, dehydration, metabolic abnormality, hypo/hyperglycemia, electrolyte imbalance, anemia, UTI, pneumonia, thyroid dysfunction among others were considered. Diagnostics, as interpreted by me: ECG: Normal sinus rhythm, rate of 79, normal intervals, normal axis no ST elevations. No significant change from comparison September 17, 2024. Cardiac monitoring: An order was placed for continuous cardiac monitoring. The monitor shows a rate of 82 with sinus rhythm. Patient was placed on pulse oximetry Medical decision rules: None Imaging studies: None HPI: Patient presents due to concern for confusion after being seen in the outpatient clinic with nephrology Dr. Fiore today. Patient with a prior history of metabolic acidosis and CKD. Patient did have a recent mission for DKA. No reported falls or trauma. Patient denies any chest pains or shortness of breath. Significant other bedside reports that she was repetitive about trying to find her keys that she was unable to do so earlier today. Patient did have blood work completed prior to being referred today. Review of the blood work does show the patient's calcium was elevated. PAST MEDICAL HISTORY: See Below PAST SURGICAL HISTORY: See Below SOCIAL HISTORY: See Below HOME MEDICATIONS: See Below ALLERGIES: See Below VITALS: See Below PHYSICAL EXAMINATION: GENERAL: NAD, non-toxic. EYE EXAM: Normal conjunctiva. PERRL, no anisocoria and EOM's grossly intact w/o pain. OROPHARYNX: Moist mucus membranes, grossly normal dentition. NECK: Trachea midline, no stridor. LUNGS: Clear to auscultation. Normal chest wall mechanics. HEART: NSR, no MRG. ABDOMEN: Abdomen soft, non-tender, no masses, no rebound or guarding. BACK: No CVA TTP. SKIN: No rashes and no bruising. UPPER EXTREMITIES: Upper extremities are grossly normal. LOWER EXTREMITIES: Grossly normal, no edema. NEURO EXAM: Awake and alert, follows commands, no obvious facial asymmetry, normal speech, moves all 4 extremities. Good finger-nose no drift and no sensory deficits. Past Med/Surg History Problem List (Updated 10/05/24 @ 01:50 by Mariusz Novak MD) Hypothyroidism Gout Type 1 diabetes mellitus Altered mental status (Acute) Acute kidney injury superimposed on CKD CKD (chronic kidney disease) stage 4, GFR 15-29 ml/min (Acute) Acute hyperkalemia (Acute) Depression with anxiety Hyperparathyroidism Hypercalcemia (Acute) Hypertension Vitamin D deficiency Acidosis, metabolic GERD (gastroesophageal reflux disease) Medical History Dyslipidemia Anemia of chronic disease DKA (diabetic ketoacidosis) Elevated troponin Hypertensive urgency DKA (diabetic ketoacidosis) CRF (chronic renal failure) Hypomagnesemia Diarrhea Chronic kidney disease (CKD) Electrolyte abnormality Weakness Diarrhea OK (acute kidney injury) Acute hyperkalemia Ileus Resistant hypertension Small bowel obstruction Acute kidney injury superimposed on stage 4 chronic kidney disease Acute hyperkalemia Acute renal failure Pancreatitis Hyperkalemia Right shoulder pain Asymptomatic hypertensive urgency History of congestive heart failure Cervical stenosis of spinal canal Chronic renal disease, stage 3, moderately decreased glomerular filtration rate (GFR) between 30-59 mL/min/1.73 square meter Diabetic nephropathy associated with type 2 diabetes mellitus Diabetes type 2, uncontrolled Diabetic peripheral neuropathy associated with type 2 diabetes mellitus Ketosis prone diabetes Dysesthesia Nephrolithiasis Acute kidney injury superimposed on CKD History of endometriosis History of renal dialysis (04/2017) - [facility] - ARF 2/2 DKA Hx of Clostridium difficile infection 2012 - treated, no problems since Chronic nausea Surgical History History of esophagogastroduodenoscopy (EGD) Hx of colonoscopy History of open reduction and internal fixation (ORIF) procedure (2018) left fibula Hx of tracheostomy (2013) R/T COMPLICATIONS AFTER ILEOSTOMY REVERSAL SURGERY IN 2011; HAS SINCE BEEN REVERSED History of rotator cuff surgery (2017) RT History of lumbar spinal fusion (2006) History of reversal of ileostomy (2012) History of ileostomy (2012) Status post cholecystectomy (2017) "cholelithiasis" Status post partial colectomy (2012) "for C diff colitis" Family History Mother Diabetes Other No family history of adverse response to anesthesia Social History Smoking Status: Former smoker Tobacco Type: Cigarettes Cigarettes Per Day: 5; Second Hand Exposure: No; Do You Dip or Chew Tobacco: No; Hx Alcohol Use: No Hx Substance Use: No Preferred Language: Occitan Communication Ability: Effective Director Of Recreation Therapy Required: No Beliefs That Will Affect Care: None marital status: Current Living Situation: Spouse Other Information That Helps Us Care for You: No Feels Safe at Home: Yes Safety Concerns: Feels Safe At This Time Assistive Devices: None Allergies Allergies Allergy/AdvReac Type Severity Reaction Status Date / Time bee venom protein (honey bee) Allergy Intermediate RED, SHORT Verified 09/16/24 21:16 OF BREATH hydralazine AdvReac Intermediate Lower Verified 09/16/24 21:16 Extremity Edema lorazepam AdvReac Intermediate Agitated Verified 09/16/24 21:16 Home Meds Home Medications Medication Instructions Recorded Confirmed allopurinol 300 mg tablet 300 mg PO QAM 01/24/24 09/30/24 buspirone 15 mg tablet 15 mg PO QAM 01/24/24 09/30/24 duloxetine 60 mg capsule,delayed 60 mg PO QAM 01/24/24 09/30/24 release eszopiclone 1 mg tablet (Lunesta) 1 mg PO HS PRN Sleep 01/24/24 09/30/24 omega [id number]-fish oil 1,000 mg 2 cap PO QAM 10/16/24 06/23/25 (120 mg-180 mg) capsule (Fish Oil) prochlorperazine maleate 10 mg 10 mg PO Q8H PRN Nausea/Vomiting 01/24/24 09/30/24 tablet (Compazine) Medical Thc 1 dose PO UD PRN NEEDED 03/06/24 09/30/24 insulin degludec 200 unit/mL (3 120 unit subcut QAM 03/06/24 10/01/24 mL) subcutaneous pen (Tresiba FlexTouch U-200 insulin) insulin lispro 100 unit/mL 30 sliding scale dose subcut TID 05/10/24 10/01/24 subcutaneous pen (Humalog KwikPen (U-100) Insulin) albuterol sulfate 90 mcg/actuation 2 puff inhalation DIRECTED PRN 09/16/24 09/30/24 aerosol inhaler COUGH/WHEEZING alprazolam 0.5 mg tablet (Xanax) 0.5 mg PO HS PRN Anxiety/Sleep 09/16/24 09/30/24 aspirin 81 mg tablet,delayed 81 mg PO QPM 09/16/24 09/30/24 release atorvastatin 20 mg tablet 80 mg PO DAILY 09/16/24 09/30/24 baclofen 10 mg tablet 10 mg PO TID PRN MUSCLE SPASMS 09/16/24 09/30/24 carvedilol 25 mg tablet 25 mg PO BIDM 09/16/24 09/30/24 chlorthalidone 25 mg tablet 12.5 mg PO DAILY 09/16/24 09/30/24 fluticasone propionate 50 1 spray intranasal BID 09/16/24 09/30/24 mcg/actuation nasal spray,suspension ondansetron 4 mg disintegrating 4 mg translingual Q8H PRN 09/16/24 09/30/24 tablet NAUSEA/VOMITING pregabalin 150 mg capsule 150 mg PO TID 09/16/24 09/30/24 rimegepant 75 mg disintegrating 75 mg PO DIRECTED PRN Pain 09/16/24 09/30/24 tablet (Nurtec ODT) torsemide 10 mg tablet 20 mg PO QAM 09/16/24 09/30/24 levothyroxine 75 mcg tablet 75 mcg PO DAILY 09/30/24 09/30/24 Previous Rx's Medication Instructions Recorded magnesium oxide 400 mg (241.3 mg 400 mg PO BID #60 tabs 08/18/24 magnesium) tablet amlodipine 10 mg tablet 10 mg PO DAILY #30 tabs 09/19/24 pantoprazole 40 mg tablet,delayed 40 mg PO QAM #30 tabs 09/19/24 release blood-glucose meter #1 ea 10/02/24 cinacalcet 30 mg tablet 30 mg PO MoWeFr@0900 #12 tabs 10/02/24 sodium bicarbonate 650 mg tablet 1,950 mg (3 x 650 mg) PO BID #0 10/02/24 tabs Results & Data (ED) Vital Signs Vital Signs - 24 hr 09/30/24 14:14 Temperature 36.9 C Temperature Source Temporal Artery Scan Pulse Rate 77 Respiratory Rate 16 Respiratory Effort / Characteristics Non-Labored Spontaneous Respiratory Depth Normal Respiratory Pattern Regular Blood Pressure 135/84 Blood Pressure Mean 101 Pulse Oximetry 98 Oxygen Delivery Method Room Air Sepsis Recent Fever Within 48 Hours No Sepsis New/Unexplained Change in Mental Status No Sepsis Action Taken by Nursing No Action Required Home Medications Current Medication List: was personally reviewed by me Laboratory Data Attestation: I reviewed the patient's lab results. 10/02/24 05:55 10/02/24 05:55 Lab Results 09/30/24 09/30/24 09/30/24 Range/Units 15:02 15:17 18:48 WBC 12.84 H (4.8-10.8) K/ul RBC 3.86 L (4.20-5.40) M/uL Hgb 11.0 L (12.0-16.0) g/dl POC Hgb 11.2 L (12.0-16.0) g/dl Hct 33.9 L (37.0-47.0) % POC Hct 33 L (37-47) % MCV 87.8 (80.0-100.0) fL MCH 28.5 (25.0-34.0) pg MCHC 32.4 (32.0-36.0) g/dL RDW Std Deviation 45.4 (36.4-46.3) fL RDW Coeff of Chidi 14.4 (11.5-14.5) % Plt Count 257 (130-400) K/uL MPV 11.2 (9.4-12.4) fL Immature Gran % (Auto) 0.8 % Neut % (Auto) 82.9 % Lymph % (Auto) 10.8 % [place] % (Auto) 4.6 % Eos % (Auto) 0.4 % Baso % (Auto) 0.5 % Neut # (Auto) 10.65 H (1.40-6.50) K/uL Lymph # (Auto) 1.39 (1.20-3.40) K/uL [place] # (Auto) 0.59 (0.11-0.59) K/uL Eos # (Auto) 0.05 (0.00-0.50) K/uL Baso # (Auto) 0.06 (0.00-0.20) K/uL Immature Gran # (Auto) 0.10 (0.01-0.20) K/uL VBG pH 7.30 L (7.36-7.41) VBG pCO2 41 (38-50) mmHg VBG pO2 52 mmHg VBG HCO3 20 mmol/L VBG O2 Saturation 84.5 % VBG Base Excess -5.9 mEq/L POC Sodium 138 (135-144) mmol/L Sodium 136 (136-145) mmol/L POC Potassium 5.4 H (3.3-5.0) mmol/L Potassium 5.3 H (3.5-5.1) mmol/L POC Chloride 113 H (101-112) mmol/L Chloride 108 H (98-107) mmol/L Carbon Dioxide 18 L (21-32) mmol/L POC Total CO2 18 L (24-31) mmol/L Anion Gap 10 (3-11) POC Anion Gap 14.0 L (16-25) mmol/L POC BUN 57 H (7-18) mg/dl BUN 56 H (6-23) mg/dl Creatinine 2.44 H (0.6-1.2) mg/dl POC Creatinine 2.5 H (0.6-1.3) mg/dl Est Cr Clr Drug Dosing 42.0 ml/min eGFR 23.39 BUN/Creatinine Ratio 23.0 H (10-20) Glucose 202 H (70-99(Fasting)) mg/dl POC Glucose 188 H 133 H (70-99) mg/dl POC Glucose (other) 204 H (70-99) mg/dl Calcium 11.4 H (8.6-10.3) mg/dl POC Ioniz Calcium Dustin 1.47 H (1.12-1.32) mmol/l Phosphorus (2.5-4.9) mg/dl Magnesium 1.6 L (1.7-2.4) mg/dl Total Bilirubin 0.4 (0.2-1.0) mg/dl AST 15 (13-39) U/L ALT 17 (7-52) U/L Alkaline Phosphatase 148 H (34-104) U/L Total Protein 6.9 (6.0-8.3) gm/dl Albumin 4.0 (3.4-5.0) gm/dl Globulin 2.9 (2.5-4.0) gm/dl Albumin/Globulin Ratio 1.4 (0.9-2) TSH 0.378 (0.300-4.500) uIu/ml 09/30/24 10/01/24 10/01/24 Range/Units 21:13 06:02 07:59 WBC 8.48 (4.8-10.8) K/ul RBC 3.57 L (4.20-5.40) M/uL Hgb 10.5 L (12.0-16.0) g/dl POC Hgb (12.0-16.0) g/dl Hct 31.2 L (37.0-47.0) % POC Hct (37-47) % MCV 87.4 (80.0-100.0) fL MCH 29.4 (25.0-34.0) pg MCHC 33.7 (32.0-36.0) g/dL RDW Std Deviation 45.4 (36.4-46.3) fL RDW Coeff of Chidi 14.1 (11.5-14.5) % Plt Count 223 (130-400) K/uL MPV 11.0 (9.4-12.4) fL Immature Gran % (Auto) % Neut % (Auto) % Lymph % (Auto) % [place] % (Auto) % Eos % (Auto) % Baso % (Auto) % Neut # (Auto) (1.40-6.50) K/uL Lymph # (Auto) (1.20-3.40) K/uL [place] # (Auto) (0.11-0.59) K/uL Eos # (Auto) (0.00-0.50) K/uL Baso # (Auto) (0.00-0.20) K/uL Immature Gran # (Auto) (0.01-0.20) K/uL VBG pH (7.36-7.41) VBG pCO2 (38-50) mmHg VBG pO2 mmHg VBG HCO3 mmol/L VBG O2 Saturation % VBG Base Excess mEq/L POC Sodium (135-144) mmol/L Sodium 141 (136-145) mmol/L POC Potassium (3.3-5.0) mmol/L Potassium 4.4 (3.5-5.1) mmol/L POC Chloride (101-112) mmol/L Chloride 110 H (98-107) mmol/L Carbon Dioxide 24 (21-32) mmol/L POC Total CO2 (24-31) mmol/L Anion Gap 7 (3-11) POC Anion Gap (16-25) mmol/L POC BUN (7-18) mg/dl BUN 46 H (6-23) mg/dl Creatinine 2.13 H D (0.6-1.2) mg/dl POC Creatinine (0.6-1.3) mg/dl Est Cr Clr Drug Dosing 34.5 ml/min eGFR 27.53 BUN/Creatinine Ratio 21.6 H (10-20) Glucose 109 H (70-99(Fasting)) mg/dl POC Glucose 91 137 H (70-99) mg/dl POC Glucose (other) (70-99) mg/dl Calcium 10.7 H (8.6-10.3) mg/dl POC Ioniz Calcium Dustin (1.12-1.32) mmol/l Phosphorus 4.4 (2.5-4.9) mg/dl Magnesium 1.7 (1.7-2.4) mg/dl Total Bilirubin (0.2-1.0) mg/dl AST (13-39) U/L ALT (7-52) U/L Alkaline Phosphatase (34-104) U/L Total Protein (6.0-8.3) gm/dl Albumin (3.4-5.0) gm/dl Globulin (2.5-4.0) gm/dl Albumin/Globulin Ratio (0.9-2) TSH (0.300-4.500) uIu/ml 10/01/24 Range/Units 12:04 WBC (4.8-10.8) K/ul RBC (4.20-5.40) M/uL Hgb (12.0-16.0) g/dl POC Hgb (12.0-16.0) g/dl Hct (37.0-47.0) % POC Hct (37-47) % MCV (80.0-100.0) fL MCH (25.0-34.0) pg MCHC (32.0-36.0) g/dL RDW Std Deviation (36.4-46.3) fL RDW Coeff of Chidi (11.5-14.5) % Plt Count (130-400) K/uL MPV (9.4-12.4) fL Immature Gran % (Auto) % Neut % (Auto) % Lymph % (Auto) % [place] % (Auto) % Eos % (Auto) % Baso % (Auto) % Neut # (Auto) (1.40-6.50) K/uL Lymph # (Auto) (1.20-3.40) K/uL [place] # (Auto) (0.11-0.59) K/uL Eos # (Auto) (0.00-0.50) K/uL Baso # (Auto) (0.00-0.20) K/uL Immature Gran # (Auto) (0.01-0.20) K/uL VBG pH (7.36-7.41) VBG pCO2 (38-50) mmHg VBG pO2 mmHg VBG HCO3 mmol/L VBG O2 Saturation % VBG Base Excess mEq/L POC Sodium (135-144) mmol/L Sodium (136-145) mmol/L POC Potassium (3.3-5.0) mmol/L Potassium (3.5-5.1) mmol/L POC Chloride (101-112) mmol/L Chloride (98-107) mmol/L Carbon Dioxide (21-32) mmol/L POC Total CO2 (24-31) mmol/L Anion Gap (3-11) POC Anion Gap (16-25) mmol/L POC BUN (7-18) mg/dl BUN (6-23) mg/dl Creatinine (0.6-1.2) mg/dl POC Creatinine (0.6-1.3) mg/dl Est Cr Clr Drug Dosing ml/min eGFR BUN/Creatinine Ratio (10-20) Glucose (70-99(Fasting)) mg/dl POC Glucose 138 H (70-99) mg/dl POC Glucose (other) (70-99) mg/dl Calcium (8.6-10.3) mg/dl POC Ioniz Calcium Dustin (1.12-1.32) mmol/l Phosphorus (2.5-4.9) mg/dl Magnesium (1.7-2.4) mg/dl Total Bilirubin (0.2-1.0) mg/dl AST (13-39) U/L ALT (7-52) U/L Alkaline Phosphatase (34-104) U/L Total Protein (6.0-8.3) gm/dl Albumin (3.4-5.0) gm/dl Globulin (2.5-4.0) gm/dl Albumin/Globulin Ratio (0.9-2) TSH (0.300-4.500) uIu/ml Administered Medications Discontinued Medications Acetaminophen (Acetaminophen 325 Mg Tab) 650 mg PO Q4H PRN PRN Reason: pain/fever Stop: 10/30/24 17:24 Last Admin: 10/01/24 21:14 Dose: 650 mg Documented By: JESSICA [facility]opurin[facility] ([facility]ol 300 Mg Tab) [facility] [place] Stop: 10/31/24 08:59 Last Admin: 10/02/24 08:19 Dose: 300 mg Documented By: Admin: 10/01/24 08:43 Dose: 300 mg Documented By: ROGER Amlodipine Besylate (Amlodipine Besylate 5 Mg Tab) 10 mg PO DAILY [facility] Stop: 10/31/24 08:59 Last Admin: 10/02/24 08:19 Dose: 10 mg Documented By: Admin: 10/01/24 08:43 Dose: 10 mg Documented By: ROGER Aspirin (Aspirin 81 Mg Ectab) 81 mg PO QPM [facility] Stop: 10/30/24 20:59 Last Admin: 10/01/24 21:14 Dose: 81 mg Documented By: Admin: 09/30/24 23:05 Dose: 81 mg Documented By: JESSICA Atorvastatin Calcium (Atorvastatin 40 Mg Tab) 80 mg PO DAILY [facility] Stop: 10/31/24 08:59 Last Admin: 10/02/24 08:19 Dose: 80 mg Documented By: Admin: 10/01/24 08:43 Dose: 80 mg Documented By: ROGER Buspirone HCl (Buspirone 15 Mg Tab) 15 mg PO QAM [facility] Stop: 10/31/24 08:59 Last Admin: 10/02/24 08:19 Dose: 15 mg Documented By: Admin: 10/01/24 08:43 Dose: 15 mg Documented By: ROGER Carvedilol (Carvedilol 25 Mg Tab) 25 mg PO BIDM [facility] Stop: 10/30/24 21:19 Last Admin: 10/02/24 08:19 Dose: 25 mg Documented By: Admin: 10/01/24 17:09 Dose: 25 mg Documented By: Admin: 10/01/24 08:45 Dose: 25 mg Documented By: Admin: 09/30/24 23:02 Dose: 25 mg Documented By: JESSICA Chlorthalidone (Chlorthalidone 25 Mg Tab) 12.5 mg PO QAM [facility] Stop: 11/01/24 10:59 Last Admin: 10/02/24 12:30 Dose: 12.5 mg Documented By: RODERICK Cinacalcet (Cinacalcet Hcl 30 Mg Tab) 30 mg PO MoWeFr@0900 [facility] Stop: 11/01/24 08:59 Last Admin: 10/02/24 08:20 Dose: 30 mg Documented By: RODERICK Duloxetine HCl (Duloxetine Hcl 60 Mg Cap) 60 mg PO QAM [facility] Stop: 10/31/24 08:59 Last Admin: 10/02/24 08:19 Dose: 60 mg Documented By: Admin: 10/01/24 08:43 Dose: 60 mg Documented By: ROGER Eszopiclone (Eszopiclone 1 Mg Tab) 1 mg PO HS PRN PRN Reason: Sleep Stop: 10/30/24 20:57 Last Admin: 10/01/24 22:25 Dose: 1 mg Documented By: JESSICA Fluticasone Propionate (Fluticasone Propionate Na Spr 16 Gm Btl) 1 sprays VINICIUS BID [facility] Stop: 10/30/24 20:59 Last Admin: 10/02/24 08:18 Dose: 1 sprays Documented By: Admin: 10/01/24 21:16 Dose: Not Given Documented By: Admin: 10/01/24 08:50 Dose: 1 sprays Documented By: Admin: 09/30/24 23:01 Dose: 1 sprays Documented By: JESSICA Heparin Sodium (Porcine) (Heparin Sod 5,000 Unit/0.5 Ml Vial) 5,000 units SQ Q12 [facility] Stop: 10/30/24 20:59 Last Admin: 10/02/24 08:18 Dose: 5,000 units Documented By: Admin: 10/01/24 21:13 Dose: 5,000 units Documented By: Admin: 10/01/24 08:44 Dose: 5,000 units Documented By: Admin: 09/30/24 23:00 Dose: 5,000 units Documented By: JESSICA Sodium Chloride (Nss) 500 mls @ 999 mls/hr IV .Q31M ONE Stop: 09/30/24 17:07 Last Infusion: 09/30/24 17:29 Dose: Infused Documented By: Admin: 09/30/24 16:45 Dose: 999 mls/hr Documented By: JAGRUTI Sodium Chloride (Nss) 1,000 mls @ 120 mls/hr IV .Q8H20M [facility] Stop: 10/01/24 10:09 Last Infusion: 10/01/24 02:58 Dose: Infused Documented By: Admin: 09/30/24 17:44 Dose: 120 mls/hr Documented By: JAGRUTI Sodium Chloride (1/2 Nss) 1,000 mls @ 80 mls/hr IV .[id number] [facility] Stop: 10/02/24 07:59 Last Admin: 10/02/24 08:38 Dose: Not Given Documented By: Admin: 10/02/24 08:38 Dose: Not Given Documented By: Infusion: 10/01/24 11:22 Dose: Infused Documented By: Admin: 09/30/24 18:47 Dose: 80 mls/hr Documented By: JAGRUTI Insulin Aspart (Insulin Aspart Per Unit Charge) 0 units SC ACHS [facility] Stop: 10/30/24 17:59 Last Admin: 10/02/24 12:30 Dose: Not Given Documented By: Admin: 10/02/24 08:51 Dose: 7 units Documented By: RODERICK Co-signed By: ROGER Admin: 10/01/24 21:15 Dose: 3 units Documented By: JESSICA Co-signed By: BRUNO Admin: 10/01/24 20:58 Dose: Not Given Documented By: Admin: 10/01/24 19:45 Dose: Not Given Documented By: Admin: 10/01/24 08:45 Dose: Not Given Documented By: Admin: 09/30/24 21:25 Dose: Not Given Documented By: Admin: 09/30/24 18:49 Dose: Not Given Documented By: JAGRUTI Insulin Glargine (Lantus Per Unit Charge) 25 units SC DAILY [facility] Stop: 10/31/24 08:59 Last Admin: 10/01/24 11:19 Dose: 25 units Documented By: ROGER Co-signed By: CURLY Insulin Glargine (Lantus Per Unit Charge) 0 units SC HS [facility]; Protocol Stop: 10/31/24 20:59 Last Admin: 10/01/24 21:15 Dose: 35 units Documented By: JESSICA Co-signed By: BRUNO Insulin Glargine (Lantus Per Unit Charge) 60 units SC DAILY [facility] Stop: 11/01/24 08:59 Last Admin: 10/02/24 08:51 Dose: 60 units Documented By: RODERICK Co-signed By: ROGER Levothyroxine Sodium (Levothyroxine Sodium 75 Mcg Tablet) 75 mcg PO DAILYBB [facility] Stop: 10/31/24 06:29 Last Admin: 10/02/24 05:34 Dose: 75 mcg Documented By: Admin: 10/01/24 05:35 Dose: 75 mcg Documented By: JESSICA Magnesium Oxide (Magnesium Oxide 400 Mg Tab) 400 mg PO BID [facility] Stop: 10/30/24 20:59 Last Admin: 10/02/24 08:19 Dose: 400 mg Documented By: Admin: 10/01/24 21:15 Dose: 400 mg Documented By: Admin: 10/01/24 08:44 Dose: 400 mg Documented By: Admin: 09/30/24 23:04 Dose: 400 mg Documented By: JESSICA Ondansetron HCl (Ondansetron Inj 2 Mg/Ml 2 Ml Vial) 4 mg IV Q6H PRN PRN Reason: Nausea And Vomiting Stop: 11/01/24 08:10 Last Admin: 10/02/24 08:26 Dose: 4 mg Documented By: RODERICK Pantoprazole Sodium (Pantoprazole 40 Mg Tab) 40 mg PO QAM [facility] Stop: 10/31/24 08:59 Last Admin: 10/02/24 08:19 Dose: 40 mg Documented By: Admin: 10/01/24 08:43 Dose: 40 mg Documented By: ROGER Pregabalin (Pregabalin 150 Mg Cap) 150 mg PO TID [facility] Stop: 10/30/24 20:59 Last Admin: 10/01/24 02:58 Dose: Not Given Documented By: JESSICA Pregabalin (Pregabalin 150 Mg Cap) 150 mg PO BID [facility] Stop: 10/31/24 08:59 Last Admin: 10/02/24 08:18 Dose: 150 mg Documented By: Admin: 10/01/24 21:14 Dose: 150 mg Documented By: Admin: 10/01/24 08:43 Dose: 150 mg Documented By: ROGER Sodium Bicarbonate (Sodium Bicarbonate 650 Mg Tab) 1,950 mg PO TID [facility] Stop: 10/30/24 20:59 Last Admin: 10/02/24 08:18 Dose: 1,950 mg Documented By: Admin: 10/01/24 21:14 Dose: 1,950 mg Documented By: Admin: 10/01/24 17:09 Dose: 1,950 mg Documented By: Admin: 10/01/24 08:43 Dose: 1,950 mg Documented By: Admin: 09/30/24 23:05 Dose: 1,950 mg Documented By: JESSICA Torsemide (Torsemide 20 Mg Tab) 20 mg PO QAM [facility] Stop: 11/01/24 10:59 Last Admin: 10/02/24 12:30 Dose: 20 mg Documented By: RODERICK Discharge Plan Visit Data Chief Complaint: Confusion Stated Complaint: CONFUSION,DIABETIC ED Provider: Mariusz Novak Discharge Problem: Hypercalcemia, Acute hyperkalemia, Altered mental status, CKD (chronic kidney disease) stage 4, GFR 15-29 ml/min Patient Disposition: Admitted As Inpatient Condition: Good Discharge Instructions Interventions: ED Discharge Assessment Last Done: 09/30/24 20:33 Discharge Problem: Altered mental status Qualifiers: Altered mental status type: transient alteration of awareness Qualified Code(s): R40.4 - Transient alteration of awareness
[2024-09-30 15:20] LABS: Base Excess VBG -5.9 mEq/L; HCO3 VBG 20 mmol/L; Oxygen Saturation VBG 84.5 %; PCO2 VBG 41 mmHg (38-50); PO2 VBG 52 mmHg
[2024-09-30 15:30] LABS: iSTAT Creatinine 2.5 mg/dl (0.6-1.3); iSTAT Hemoglobin 11.2 g/dl (12.0-16.0); iSTAT Ionized Calcium 1.47 mmol/l (1.12-1.32); iSTAT Potassium 5.4 mmol/L (3.3-5.0)
[2024-09-30 15:32] LABS: Basophils # (auto) 0.06 K/uL (0.00-0.20); Basophils % (auto) 0.5 %; Eosinophils # (auto) 0.05 K/uL (0.00-0.50); Eosinophils % (auto) 0.4 %; Hematocrit (blood only) 33.9 % (37.0-47.0); Immature Granulocytes % (auto) 0.8 %; Lymphocytes # (auto) 1.39 K/uL (1.20-3.40); Lymphocytes % (auto) 10.8 %; Mean Corpuscular Hemoglobin 28.5 pg (25.0-34.0); Mean Corpuscular Hgb Conc 32.4 g/dL (32.0-36.0); Mean Corpuscular Volume 87.8 fL (80.0-100.0); Mean Platelet Volume 11.2 fL (9.4-12.4); Monocytes # (auto) 0.59 K/uL (0.11-0.59); Monocytes % (auto) 4.6 %; Neutrophils # (auto) 10.65 K/uL (1.40-6.50); Neutrophils % (auto) 82.9 %; Platelet Count 257 K/uL (130-400); RDW Coefficient of Variation 14.4 % (11.5-14.5); RDW Standard Deviation 45.4 fL (36.4-46.3); Red Blood Count 3.86 M/uL (4.20-5.40); White Blood Count 12.84 K/ul (4.8-10.8)
[2024-09-30 16:11] LABS: Bilirubin,Total 0.4 mg/dl (0.2-1.0); Calcium 11.4 mg/dl (8.6-10.3); Magnesium 1.6 mg/dl (1.7-2.4); Potassium 5.3 mmol/L (3.5-5.1)
[2024-09-30 16:17] LABS: Albumin Globulin Ratio 1.4 (0.9-2); Globulin 2.9 gm/dl (2.5-4.0); Total Protein 6.9 gm/dl (6.0-8.3)
[2024-09-30] MEDS: SODIUM CHLORIDE 0.9% 500 ML IV ONE (16:45)
--- NOTE | 2024-09-30 16:48 | History & Physical Report ---
Date of Service September 30, 2024 Assessment & Plan (1) Altered mental status: (2) Hypercalcemia: (3) Hyperparathyroidism: (4) Vitamin D deficiency: (5) Acute kidney injury superimposed on CKD: (6) CKD (chronic kidney disease) stage 4, GFR 15-29 ml/min: (7) Acute hyperkalemia: (8) Type 1 diabetes mellitus: (9) Hypertension: (10) Hypothyroidism: Plan 49 year old female with PMH significant for uncontrolled type 1 diabetes, CKD stage IV, electrolyte disorder, metabolic acidosis, hypertension, GERD, history of C. difficile colitis, osteoarthritis, migraine, status post colectomy, history of tobacco use who presented to the ED today as a referral from Nephrology clinic and is admitted for altered mental status and electrolyte disturbances. Altered mental status Patient with repetitive statements and delayed processing of thought/speech Obtain head CT Check TSH Could be secondary to electrolyte disturbances as described below Hypercalcemia Hyperparathyroidism Vitamin D deficiency Calcium 11.4 and ical 1.47 (Ca 12.1 outpatient) PTH 450 and vitamin D 12 on 09/17/2024 Received 500mL NSS in ED NSS at 120mL/hr for 2L Consult nephro: appreciate recs OK on CKD stage IV Creatinine of 2.4 - above baseline of 1.8-2.0 Hold Entresto and diuretics (torsemide and chlorthalidone) Fluids as above Hyperkalemia K 5.3 - around baseline per records Monitor BMP Hypomagnesemia Mag 1.6 Continue magnesium supplements Monitor BMP and consider repletion in am Anemia of chronic disease Hgb 11 - above baseline per records Monitor CBC Leukocytosis WBC 12 Afebrile and vitals stable, no s/s infection Monitor CBC Metabolic acidosis VBG pH 7.30 - above baseline per records Bicarb 20 and gap 10 Continue sodium bicarbonate Type 1 diabetes On Tresiba and lispro sliding scale at home BSG ACHS Order lantus 60 units daily and SSI Consult glycemic pharmacy Hypertension Continue coreg and amlodipine Hold Entresto and diuretics (torsemide and chlorthalidone) in setting of OK Hyperlipidemia Continue statin Hypothyroidism Follow TSH Continue levothyroxine Gout Continue allopurinol Depression anxiety Continue duloxetine and buspirone GERD Continue pantoprazole DVT Prophylaxis: SCDs until head CT results Code Status: FULL CODE - As per discussion at bedside with the patient. PCP: Wiliam Garsia Disposition: admit to med tele Patient seen in collaboration with Dr Francisco. Please see addendum. I spent a total of 75 minutes coordinating, documenting and providing care for this patient excluding time spent in the performance of separately billed services or time spent by another provider/QHP. Admission and Anticipated Discharge Date Admission Date: 09/30/2024 History of Present Illness Chief Complaint: confusion Primary Care Provider: Wiliam Garsia 49 year old female with PMH significant for uncontrolled type 1 diabetes, CKD stage IV, electrolyte disorder, metabolic acidosis, hypertension, GERD, history of C. difficile colitis, osteoarthritis, migraine, status post colectomy, history of tobacco use who presented to the ED today as a referral from Nephrology clinic for altered mental status. Patient reports that she was "just out of it" today but is not able to provide additional history. She denies fevers, chills, cough, cold symptoms, chest pain, SOB, abdominal pain, N/V/D, dysuria, weakness. Denies any recent falls or hitting her head. States she took her medications this morning. Allergies Allergy/AdvReac Type Severity Reaction Status Date / Time bee venom protein (honey bee) Allergy Intermediate RED, SHORT Verified 09/16/24 21:16 OF BREATH hydralazine AdvReac Intermediate Lower Verified 09/16/24 21:16 Extremity Edema lorazepam AdvReac Intermediate Agitated Verified 09/16/24 21:16 Home Medications Medication Instructions Recorded Confirmed Type allopurinol 300 mg tablet 300 mg PO QAM 01/24/24 09/30/24 History buspirone 15 mg tablet 15 mg PO QAM 01/24/24 09/30/24 History duloxetine 60 mg capsule,delayed 60 mg PO QAM 01/24/24 09/30/24 History release eszopiclone 1 mg tablet (Lunesta) 1 mg PO HS PRN Sleep 01/24/24 09/30/24 History omega 0-lqp-suo-fish oil 1,000 mg 2 cap PO QAM 01/24/24 09/30/24 History (120 mg-180 mg) capsule (Fish Oil) prochlorperazine maleate 10 mg 10 mg PO Q8H PRN Nausea/Vomiting 01/24/24 History tablet (Compazine) sodium bicarbonate 650 mg tablet 1,950 mg PO TID 01/24/24 09/30/24 History Medical Thc 1 dose PO UD PRN NEEDED 03/06/24 09/30/24 History insulin degludec 200 unit/mL (3 75 unit subcut QAM 03/06/24 09/30/24 History mL) subcutaneous pen (Tresiba FlexTouch U-200 insulin) blood-glucose meter (ReliOn Prime 05/10/24 08/16/24 History Meter) insulin lispro 100 unit/mL 25 sliding scale dose subcut TID 05/10/24 09/30/24 History subcutaneous pen (Humalog KwikPen (U-100) Insulin) magnesium oxide 400 mg (241.3 mg 400 mg PO BID #60 tabs 08/18/24 09/30/24 Rx magnesium) tablet albuterol sulfate 90 mcg/actuation 2 puff inhalation DIRECTED PRN 09/16/24 09/30/24 History aerosol inhaler COUGH/WHEEZING alprazolam 0.5 mg tablet (Xanax) 0.5 mg PO HS PRN Anxiety/Sleep 09/16/24 09/30/24 History aspirin 81 mg tablet,delayed 81 mg PO QPM 09/16/24 09/30/24 History release atorvastatin 20 mg tablet 80 mg PO DAILY 09/16/24 09/30/24 History baclofen 10 mg tablet 10 mg PO TID PRN MUSCLE SPASMS 09/16/24 09/30/24 History carvedilol 25 mg tablet 25 mg PO BIDM 09/16/24 09/30/24 History chlorthalidone 25 mg tablet 12.5 mg PO DAILY 09/16/24 09/30/24 History fluticasone propionate 50 1 spray intranasal BID 09/16/24 09/30/24 History mcg/actuation nasal spray,suspension ondansetron 4 mg disintegrating 4 mg translingual Q8H PRN 09/16/24 09/30/24 History tablet NAUSEA/VOMITING pregabalin 150 mg capsule 150 mg PO TID 09/16/24 09/30/24 History rimegepant 75 mg disintegrating 75 mg PO DIRECTED PRN Pain 09/16/24 09/30/24 History tablet (Nurtec ODT) sacubitril 24 mg-valsartan 26 mg 1 tab PO BID 09/16/24 09/30/24 History tablet (Entresto) torsemide 10 mg tablet 20 mg PO QAM 09/16/24 09/30/24 History amlodipine 10 mg tablet 10 mg PO DAILY #30 tabs 09/19/24 09/30/24 Rx pantoprazole 40 mg tablet,delayed 40 mg PO QAM #30 tabs 09/19/24 09/30/24 Rx release levothyroxine 75 mcg tablet 75 mcg PO DAILY 09/30/24 09/30/24 History Past Med/Surg History Problem List (Updated 09/30/24 @ 17:48 by LINDA Marinelli) Hypothyroidism Gout Type 1 diabetes mellitus Altered mental status Acute kidney injury superimposed on CKD CKD (chronic kidney disease) stage 4, GFR 15-29 ml/min Acute hyperkalemia (Acute) Depression with anxiety Hyperparathyroidism Hypercalcemia Hypertension Vitamin D deficiency Acidosis, metabolic GERD (gastroesophageal reflux disease) Medical History (Updated 09/30/24 @ 17:48 by LINDA Marinelli) Dyslipidemia Anemia of chronic disease DKA (diabetic ketoacidosis) Elevated troponin Hypertensive urgency DKA (diabetic ketoacidosis) CRF (chronic renal failure) Hypomagnesemia Diarrhea Chronic kidney disease (CKD) Electrolyte abnormality Weakness Diarrhea OK (acute kidney injury) Acute hyperkalemia Ileus Resistant hypertension Small bowel obstruction Acute kidney injury superimposed on stage 4 chronic kidney disease Acute hyperkalemia Acute renal failure Pancreatitis Hyperkalemia Right shoulder pain Asymptomatic hypertensive urgency History of congestive heart failure Cervical stenosis of spinal canal Chronic renal disease, stage 3, moderately decreased glomerular filtration rate (GFR) between 30-59 mL/min/1.73 square meter Diabetic nephropathy associated with type 2 diabetes mellitus Diabetes type 2, uncontrolled Diabetic peripheral neuropathy associated with type 2 diabetes mellitus Ketosis prone diabetes Dysesthesia Nephrolithiasis Acute kidney injury superimposed on CKD History of endometriosis History of renal dialysis (04/2017) - [facility] - ARF 2/2 DKA Hx of Clostridium difficile infection 2011 - treated, no problems since Chronic nausea Surgical History History of esophagogastroduodenoscopy (EGD) Hx of colonoscopy History of open reduction and internal fixation (ORIF) procedure (2018) left fibula Hx of tracheostomy (2013) R/T COMPLICATIONS AFTER ILEOSTOMY REVERSAL SURGERY IN 2011; HAS SINCE BEEN REVERSED History of rotator cuff surgery (2017) RT History of lumbar spinal fusion (2006) History of reversal of ileostomy (2012) History of ileostomy (2012) Status post cholecystectomy (2017) "cholelithiasis" Status post partial colectomy (2012) "for C diff colitis" Family History Mother Diabetes Other No family history of adverse response to anesthesia Social History (Updated 09/30/24 @ 17:35 by LINDA Marinelli) Smoking Status: Former smoker Tobacco Type: Cigarettes Cigarettes Per Day: 5; Second Hand Exposure: No; Do You Dip or Chew Tobacco: No; Hx Alcohol Use: No Hx Substance Use: No Preferred Language: Icelandic Communication Ability: Effective Seat Trimmer Required: No Beliefs That Will Affect Care: None marital status: Current Living Situation: Spouse Feels Safe at Home: Yes Assistive Devices: None Review of Systems Review of Systems: All systems reviewed & are unremarkable except as noted in HPI & below Physical Exam Physical Exam: General/Psych: WD/WN, sitting up in bed, NAD, conversing easily, euthymic affect, repetitive statements and delayed processing Head: normocephalic, atraumatic Eyes: normal inspection, PERRL, conjunctivae pink, anicteric sclerae, exophthalmos ENT: external ear and nose normal, oropharynx normal Neck: normal visual inspection, trachea midline Respiratory: normal respiratory effort, lungs clear to auscultation, no wheeze/rales/rhonchi, no accessory muscle use Cardiovascular: regular rate and rhythm, no murmur/rub/gallop, no JVD Extremities: no cyanosis or clubbing, normal peripheral pulses, no BLE edema Abdomen/GI: normal bowel sounds, soft, nontender, no hepatosplenomegaly Neurologic/MSK: A+Ox3, CN's II-XI intact bilaterally, motor strength 5/5, moves all extremities Skin: no rashes, normal color, warm and dry Results & Data Results & Data Vital Signs (Past 12 Hours) Vital Signs Temp Pulse Pulse Resp BP BP Pulse Ox 09/30/24 15:35 79 09/30/24 15:30 80 20 164/90 H 96 09/30/24 14:14 36.9 C 77 16 135/84 98 09/30/24 14:09 94 O2 Del Method 09/30/24 15:35 09/30/24 15:30 09/30/24 14:14 Room Air 09/30/24 14:09 Room Air Laboratory Results Short CBC 09/30/24 Range/Units 15:02 WBC 12.84 H (4.8-10.8) K/ul Hgb 11.0 L (12.0-16.0) g/dl Hct 33.9 L (37.0-47.0) % Plt Count 257 (130-400) K/uL BMP 09/30/24 15:02 Sodium 136 Potassium 5.3 H Chloride 108 H Carbon Dioxide 18 L BUN 56 H Creatinine 2.44 H Glucose 202 H Calcium 11.4 H Liver Function 09/30/24 Range/Units 15:02 Total Bilirubin 0.4 (0.2-1.0) mg/dl AST 15 (13-39) U/L ALT 17 (7-52) U/L Alkaline Phosphatase 148 H (34-104) U/L Albumin 4.0 (3.4-5.0) gm/dl I have independently reviewed and interpreted patient's admitting labs including CBC, CMP. Code Status & VTE Plan Code Status Full Code Supervising Physician Co-Signing Physician Notes Attending addendum: The patient was seen and examined in emergency room She was sent in from nephrology clinic with confusion and noted to have significant electrolyte abnormalities in the emergency room She does not have any significant symptoms except seems to be slow in answering questions and sometimes repeating the answer On asking questions mention to have some abdominal pain without nausea no vomiting and she denies any constipation or problem with urine On examination Not in any acute distress at rest Obese with hemodynamically stable Chestclear to auscultate bilaterally HeartS1-S2, regularWith 2/6 ESM over precordium Abdomendistended, soft bowel sound present minimally tender Extremitiesno edema CNSalert awake and oriented x 3. Slow in response at times and repeating answers. No other focal sensory or motor deficit. Eyes seems to be little bulged on either side Her admission labs and EKG reviewed Significant lab abnormalities noted to be potassium 5.4, BUN of 57 and creatinine 2.44 high calcium of 11.4 with ionized calcium elevated at 1.[address] scan of the head rule out any stroke Assessment and plan Recurrent Hypercalcemia with confusionwill need to give more fluid intravenously and also increase oral intake and discussed with the shaper machine hand for other medications like Zometa Will get CT of the head-Negative OK with hyperkalemiacontributed by dehydration and the medication like Entresto and chlorthalidone which will be on hold Will monitor kidney function while in the hospital and nephrology evaluation Hypertensionseems to be controlled now and will monitor as we are holding Entresto and also chlorthalidone Diabetes on insulin no DKA at this time but she has a DKA during her last admissionSSI and insulin and also glycemic pharmacy consult Agree with assessment and plan as outlined above by LINDA Esquivel and take the full responsibility of care in the hospital Dr Jennifer Francisco (9) Hypertension Hypertension type: primary hypertension Qualified Code(s): I10 - Essential (primary) hypertension
[2024-09-30] MEDS ORDERED: DEXTROSE 50% 50 ML SYRINGE IV PRN (17:25)
[2024-09-30] MEDS ORDERED: GLUCOSE 10 TAB/TUBE PO PRN (17:25)
[2024-09-30] MEDS ORDERED: GLUCAGON FOR INJ 1 MG VIAL SQ PRN (17:25)
[2024-09-30] MEDS ORDERED: PHARMACY GLYCEMIC MGMT CONSULT PRN (17:25)
[2024-09-30] MEDS ORDERED: GLUCOSE 40% GEL 15 GM TUBE PO PRN (17:25)
[2024-09-30] MEDS ORDERED: CARBOHYDRATES FOR HYPOGLYCEMIA PO PRN (17:25)
[2024-09-30] MEDS: SODIUM CHLORIDE 0.9% 1,000 ML IV SCH (17:44)
--- NOTE | 2024-09-30 17:54 | CT Scan Report ---
Clinical History: Altered mental status. Technique: Axial computed tomography images were obtained of the brain from the vertex to the skull base without intravenous contrast. Comparison is made to the prior CT dated 09/17/2024 Findings: There is no sign of intracranial hemorrhage. There is normal koch-white matter differentiation with no sign of acute or old infarction. No midline shift or other form of herniation is identified. There is no hydrocephalus. No obvious mass lesion is seen on this noncontrast examination. The visualized portions of the orbits and paranasal sinuses appear unremarkable. The mastoid air cells appear clear Impression: Unremarkable noncontrast CT of the brain Electronically signed by Fidencio Vasquez 09-30-2024 5:51 PM
[2024-09-30 17:55] LABS: Thyroid Stimulating Hormone 0.378 uIu/ml (0.300-4.500)
[2024-09-30] MEDS: SODIUM CHLORIDE 0.45 % 1,000 ML IV SCH (18:47)
[2024-09-30] MEDS: INSULIN ASPART PER UNIT CHARGE SC SCH (18:49)
[2024-09-30] MEDS ORDERED: ALBUTEROL HFA 8 GM INHALER INH PRN (20:58)
[2024-09-30] MEDS: HEPARIN SOD 5,000 UNIT/0.5 ML VIAL SQ SCH (23:00)
[2024-09-30] MEDS: FLUTICASONE PROPIONATE NA SPR 16 GM BTL NAE SCH (23:01)
[2024-09-30] MEDS: carvediloL 25 MG TAB PO SCH (23:02)
[2024-09-30] MEDS: MAGNESIUM OXIDE 400 MG TAB PO SCH (23:04)
[2024-09-30] MEDS: ASPIRIN 81 MG ECTAB PO SCH (23:05)
[2024-09-30] MEDS: SODIUM BICARBONATE 650 MG TAB PO SCH (23:05)
[2024-10-01] MEDS: PREGABALIN 150 MG CAP PO SCH ×2 (02:58→08:43)
[2024-10-01] MEDS: LEVOTHYROXINE SODIUM 75 MCG TABLET PO SCH (05:35)
[2024-10-01 06:24] LABS: Hematocrit (blood only) 31.2 % (37.0-47.0); Hemoglobin 10.5 g/dl (12.0-16.0); Mean Corpuscular Hemoglobin 29.4 pg (25.0-34.0); Mean Corpuscular Hgb Conc 33.7 g/dL (32.0-36.0); Mean Corpuscular Volume 87.4 fL (80.0-100.0); Platelet Count 223 K/uL (130-400); RDW Coefficient of Variation 14.1 % (11.5-14.5); RDW Standard Deviation 45.4 fL (36.4-46.3); Red Blood Count 3.57 M/uL (4.20-5.40); White Blood Count 8.48 K/ul (4.8-10.8)
[2024-10-01 07:03] LABS: Calcium 10.7 mg/dl (8.6-10.3); Magnesium 1.7 mg/dl (1.7-2.4); Potassium 4.4 mmol/L (3.5-5.1)
[2024-10-01 07:09] LABS: BUN Creatinine Ratio 21.6 (10-20); Creatinine Clr Calc Pharmacy 34.5 ml/min; Phosphorus 4.4 mg/dl (2.5-4.9)
--- NOTE | 2024-10-01 07:47 | Hospitalist Progress Note ---
Date of Service October 01, 2024 Assessment & Plan (1) Altered mental status: (2) Hypercalcemia: (3) Hyperparathyroidism: (4) Vitamin D deficiency: (5) Acute kidney injury superimposed on CKD: (6) CKD (chronic kidney disease) stage 4, GFR 15-29 ml/min: (7) Acute hyperkalemia: (8) Type 1 diabetes mellitus: (9) Hypertension: (10) Hypothyroidism: Plan 49 year old female with PMH significant for uncontrolled type 1 diabetes, CKD stage IV, electrolyte disorder, metabolic acidosis, hypertension, GERD, history of C. difficile colitis, osteoarthritis, migraine, status post colectomy, history of tobacco use who presented to the ED today as a referral from Nephrology clinic and is admitted for altered mental status and electrolyte disturbances. Altered mental status Patient with repetitive statements and delayed processing of thought/speech Head CT - Unremarkable noncontrast CT of the brain TSH 0.378 Could be secondary to electrolyte disturbances as described below Hypercalcemia Hyperparathyroidism Vitamin D deficiency Calcium 11.4 and ical 1.47 (Ca 12.1 outpatient) PTH 450 and vitamin D 12 on 09/17/2024 Received 500mL NSS in ED NSS at 120mL/hr for 2L on admission Current Ca level 10.7 Nephrology consulted : appreciate recommendations, cinacalcet started OK on CKD stage IV Creatinine of 2.4 - above baseline of 1.8-2.0 Hold Entresto and diuretics (torsemide and chlorthalidone) Fluids as above Current Cr 2.13 Hyperkalemia K 5.3 - around baseline per records Current K 4.4 Monitor BMP Hypomagnesemia Mag 1.6 -> current 1.7 Continue magnesium supplements Monitor BMP and consider repletion in am Anemia of chronic disease Hgb 11 - above baseline per records Monitor CBC Leukocytosis - resolved WBC 12 -> 8.4K Afebrile and vitals stable, no s/s infection Monitor CBC Metabolic acidosis VBG pH 7.30 - above baseline per records Bicarb 20 and gap 10 Continue sodium bicarbonate Type 1 diabetes On Tresiba and lispro sliding scale at home BSG ACHS Order lantus 60 units daily and SSI Consult glycemic pharmacy Hypertension Continue coreg and amlodipine Hold Entresto and diuretics (torsemide and chlorthalidone) in setting of OK Hyperlipidemia Continue statin Hypothyroidism TSH wnl as above Continue levothyroxine Gout Continue allopurinol Depression anxiety Continue duloxetine and buspirone GERD Continue pantoprazole DVT Prophylaxis: SCDs until head CT results Code Status: FULL CODE - As per discussion at bedside with the patient. PCP: Wiliam Garsia Disposition: med tele Admission and Anticipated Discharge Date Admission Date: September 30, 2024 Subjective Pt seen in follow up of AMS, hypercalcemia Currently sitting up in bed in NAD, awake, alert, oriented, answers appropriately On admission pt noted to repeat herself, and was sent to ED from nephro clinic Received IVF and Ca level improved Denies any sick contacts, no fever, chills, chest pain, shortness of breath, no abd. pain, n/v Pt's present at the bedside Nephrology consulted Review of Systems Review of Systems: All systems reviewed & are unremarkable except as noted in Subjective Physical Exam Physical Exam: General/Psych: WD/WN, F in NAD Head: normocephalic, atraumatic Eyes: normal inspection, PERRL, conjunctivae pink, anicteric sclerae ENT: external ear and nose normal Neck: normal visual inspection Respiratory: normal respiratory effort, lungs clear to auscultation, no wheeze/rales/rhonchi, no accessory muscle use Cardiovascular: regular rate and rhythm, no murmur Extremities: no BLE edema, moves extremities Abdomen/GI: normal bowel sounds, soft, nontender Neurologic/MSK: Awake, alert, answers appropriately, oriented, speech fluent, moves all extremities Skin: warm and dry Results & Data Results & Data Vital Signs (Past 12 Hours) Vital Signs Temp Pulse Pulse Resp BP BP Pulse Ox 10/01/24 07:13 72 10/01/24 02:45 36.5 C 77 20 131/72 98 09/30/24 22:10 78 09/30/24 20:55 09/30/24 20:55 36.6 C 77 18 169/107 H 100 09/30/24 20:54 80 09/30/24 20:33 70 16 169/100 H 98 09/30/24 20:21 72 19 159/100 H 09/30/24 20:15 75 15 09/30/24 20:00 78 20 169/102 H 09/30/24 19:54 76 23 09/30/24 19:42 77 20 O2 Del Method 10/01/24 07:13 06/24/25 02:45 Room Air 09/30/24 22:10 09/30/24 20:55 Room Air 09/30/24 20:55 Room Air 09/30/24 20:54 09/30/24 20:33 Room Air, Nasal Cannula 09/30/24 20:21 09/30/24 20:15 09/30/24 20:00 09/30/24 19:54 09/30/24 19:42 Laboratory Results 10/01/24 09/30/24 09/30/24 Range/Units 06:02 21:13 18:48 WBC 8.48 (4.8-10.8) K/ul RBC 3.57 L (4.20-5.40) M/uL Hgb 10.5 L (12.0-16.0) g/dl POC Hgb (12.0-16.0) g/dl Hct 31.2 L (37.0-47.0) % POC Hct (37-47) % MCV 87.4 (80.0-100.0) fL MCH 29.4 (25.0-34.0) pg MCHC 33.7 (32.0-36.0) g/dL RDW Std Deviation 45.4 (36.4-46.3) fL RDW Coeff of Chidi 14.1 (11.5-14.5) % Plt Count 223 (130-400) K/uL MPV 11.0 (9.4-12.4) fL Immature Gran % (Auto) % Neut % (Auto) % Lymph % (Auto) % Blount % (Auto) % Eos % (Auto) % Baso % (Auto) % Neut # (Auto) (1.40-6.50) K/uL Lymph # (Auto) (1.20-3.40) K/uL Blount # (Auto) (0.11-0.59) K/uL Eos # (Auto) (0.00-0.50) K/uL Baso # (Auto) (0.00-0.20) K/uL Immature Gran # (Auto) (0.01-0.20) K/uL VBG pH (7.36-7.41) VBG pCO2 (38-50) mmHg VBG pO2 mmHg VBG HCO3 mmol/L VBG O2 Saturation % VBG Base Excess mEq/L POC Sodium (135-144) mmol/L Sodium 141 (136-145) mmol/L POC Potassium (3.3-5.0) mmol/L Potassium 4.4 (3.5-5.1) mmol/L POC Chloride (101-112) mmol/L Chloride 110 H (98-107) mmol/L Carbon Dioxide 24 (21-32) mmol/L POC Total CO2 (24-31) mmol/L Anion Gap 7 (3-11) POC Anion Gap (16-25) mmol/L POC BUN (7-18) mg/dl BUN 46 H (6-23) mg/dl Creatinine 2.13 H D (0.6-1.2) mg/dl POC Creatinine (0.6-1.3) mg/dl Est Cr Clr Drug Dosing 34.5 ml/min eGFR 27.53 BUN/Creatinine Ratio 21.6 H (10-20) Glucose 109 H (70-99(Fasting)) mg/dl POC Glucose 91 133 H (70-99) mg/dl POC Glucose (other) (70-99) mg/dl Calcium 10.7 H (8.6-10.3) mg/dl POC Ioniz Calcium Dustin (1.12-1.32) mmol/l Phosphorus 4.4 (2.5-4.9) mg/dl Magnesium 1.7 (1.7-2.4) mg/dl Total Bilirubin (0.2-1.0) mg/dl AST (13-39) U/L ALT (7-52) U/L Alkaline Phosphatase (34-104) U/L Total Protein (6.0-8.3) gm/dl Albumin (3.4-5.0) gm/dl Globulin (2.5-4.0) gm/dl Albumin/Globulin Ratio (0.9-2) TSH (0.300-4.500) uIu/ml 09/30/24 09/30/24 Range/Units 15:17 15:02 WBC 12.84 H (4.8-10.8) K/ul RBC 3.86 L (4.20-5.40) M/uL Hgb 11.0 L (12.0-16.0) g/dl POC Hgb 11.2 L (12.0-16.0) g/dl Hct 33.9 L (37.0-47.0) % POC Hct 33 L (37-47) % MCV 87.8 (80.0-100.0) fL MCH 28.5 (25.0-34.0) pg MCHC 32.4 (32.0-36.0) g/dL RDW Std Deviation 45.4 (36.4-46.3) fL RDW Coeff of Chidi 14.4 (11.5-14.5) % Plt Count 257 (130-400) K/uL MPV 11.2 (9.4-12.4) fL Immature Gran % (Auto) 0.8 % Neut % (Auto) 82.9 % Lymph % (Auto) 10.8 % Blount % (Auto) 4.6 % Eos % (Auto) 0.4 % Baso % (Auto) 0.5 % Neut # (Auto) 10.65 H (1.40-6.50) K/uL Lymph # (Auto) 1.39 (1.20-3.40) K/uL Blount # (Auto) 0.59 (0.11-0.59) K/uL Eos # (Auto) 0.05 (0.00-0.50) K/uL Baso # (Auto) 0.06 (0.00-0.20) K/uL Immature Gran # (Auto) 0.10 (0.01-0.20) K/uL VBG pH 7.30 L (7.36-7.41) VBG pCO2 41 (38-50) mmHg VBG pO2 52 mmHg VBG HCO3 20 mmol/L VBG O2 Saturation 84.5 % VBG Base Excess -5.9 mEq/L POC Sodium 138 (135-144) mmol/L Sodium 136 (136-145) mmol/L POC Potassium 5.4 H (3.3-5.0) mmol/L Potassium 5.3 H (3.5-5.1) mmol/L POC Chloride 113 H (101-112) mmol/L Chloride 108 H (98-107) mmol/L Carbon Dioxide 18 L (21-32) mmol/L POC Total CO2 18 L (24-31) mmol/L Anion Gap 10 (3-11) POC Anion Gap 14.0 L (16-25) mmol/L POC BUN 57 H (7-18) mg/dl BUN 56 H (6-23) mg/dl Creatinine 2.44 H (0.6-1.2) mg/dl POC Creatinine 2.5 H (0.6-1.3) mg/dl Est Cr Clr Drug Dosing 42.0 ml/min eGFR 23.39 BUN/Creatinine Ratio 23.0 H (10-20) Glucose 202 H (70-99(Fasting)) mg/dl POC Glucose 188 H (70-99) mg/dl POC Glucose (other) 204 H (70-99) mg/dl Calcium 11.4 H (8.6-10.3) mg/dl POC Ioniz Calcium Dustin 1.47 H (1.12-1.32) mmol/l Phosphorus (2.5-4.9) mg/dl Magnesium 1.6 L (1.7-2.4) mg/dl Total Bilirubin 0.4 (0.2-1.0) mg/dl AST 15 (13-39) U/L ALT 17 (7-52) U/L Alkaline Phosphatase 148 H (34-104) U/L Total Protein 6.9 (6.0-8.3) gm/dl Albumin 4.0 (3.4-5.0) gm/dl Globulin 2.9 (2.5-4.0) gm/dl Albumin/Globulin Ratio 1.4 (0.9-2) TSH 0.378 (0.300-4.500) uIu/ml Medications Administered Current Inpatient Medications Acetaminophen (Acetaminophen 325 Mg Tab) 650 mg PO Q4H PRN PRN Reason: pain/fever Stop: 10/30/24 17:24 Albuterol (Albuterol Hfa 8 Gm Inhaler) 2 puffs INH Q6H PRN PRN Reason: COUGH/WHEEZING Stop: 10/30/24 20:57 Allopurinol (Allopurinol 300 Mg Tab) 300 mg PO QAM [facility] Stop: 10/31/24 08:59 Amlodipine Besylate (Amlodipine Besylate 5 Mg Tab) 10 mg PO DAILY [facility] Stop: 10/31/24 08:59 Aspirin (Aspirin 81 Mg Ectab) 81 mg PO QPM [facility] Stop: 10/30/24 20:59 Last Admin: 09/30/24 23:05 Dose: 81 mg Atorvastatin Calcium (Atorvastatin 40 Mg Tab) 80 mg PO DAILY [facility] Stop: 10/31/24 08:59 Buspirone HCl (Buspirone 15 Mg Tab) 15 mg PO QAM [facility] Stop: 10/31/24 08:59 Carvedilol (Carvedilol 25 Mg Tab) 25 mg PO BIDM [facility] Stop: 10/30/24 21:19 Last Admin: 09/30/24 23:02 Dose: 25 mg Dextrose (Dextrose 50% 50 Ml Syringe) 25 - 50 ml IV UD PRN; Protocol PRN Reason: Hypoglycemia Protocol Stop: 10/30/24 17:24 Duloxetine HCl (Duloxetine Hcl 60 Mg Cap) 60 mg PO QAM [facility] Stop: 10/31/24 08:59 Eszopiclone (Eszopiclone 1 Mg Tab) 1 mg PO HS PRN PRN Reason: Sleep Stop: 10/30/24 20:57 Fluticasone Propionate (Fluticasone Propionate Na Spr 16 Gm Btl) 1 sprays VINICIUS BID [facility] Stop: 10/30/24 20:59 Last Admin: 09/30/24 23:01 Dose: 1 sprays Glucagon (Glucagon For Inj 1 Mg Vial) 1 mg SQ UD PRN; Protocol PRN Reason: Hypoglycemia Protocol Stop: 10/30/24 17:24 Glucose (Glucose 40% Gel 15 Gm Tube) 15 - 30 gm PO UD PRN; Protocol PRN Reason: Hypoglycemia Protocol Stop: 10/30/24 17:24 Glucose (Glucose 10 Tab/Tube) 4 - 8 tab PO UD PRN; Protocol PRN Reason: Hypoglycemia Protocol Stop: 10/30/24 17:24 Heparin Sodium (Porcine) (Heparin Sod 5,000 Unit/0.5 Ml Vial) 5,000 units SQ Q12 [facility] Stop: 10/30/24 20:59 Last Admin: 09/30/24 23:00 Dose: 5,000 units Sodium Chloride (1/2 Nss) 1,000 mls @ 80 mls/hr IV .[id number] [facility] Stop: 10/02/24 07:59 Last Admin: 09/30/24 18:47 Dose: 80 mls/hr Insulin Aspart (Insulin Aspart Per Unit Charge) 0 units SC ACHS [facility] Stop: 10/30/24 17:59 Last Admin: 09/30/24 21:25 Dose: Not Given Levothyroxine Sodium (Levothyroxine Sodium 75 Mcg Tablet) [facility]: 10/31/24 06:29 Last Admin: 10/01/24 05:35 Dose: 75 mcg Magnesium Oxide (Magnesium Oxide 400 Mg Tab) 400 mg PO BID [facility] Stop: 10/30/24 20:59 Last Admin: 09/30/24 23:04 Dose: 400 mg Miscellaneous (Carbohydrates For Hypoglycemia ) 15 - 30 gm PO UD PRN PRN Reason: Hypoglycemia Protocol Stop: 10/30/24 17:24 Miscellaneous Information (Pharmacy Glycemic Mgmt Consult) 1 each N/A UD PRN PRN Reason: Consult Stop: 10/30/24 17:24 Pantoprazole Sodium (Pantoprazole 40 Mg Tab) 40 mg PO QAM [facility] Stop: 10/31/24 08:59 Pregabalin (Pregabalin 150 Mg Cap) 150 mg PO BID [facility] Stop: 10/31/24 08:59 Sodium Bicarbonate (Sodium Bicarbonate 650 Mg Tab) 1,950 mg PO TID [facility] Stop: 10/30/24 20:59 Last Admin: 09/30/24 23:05 Dose: 1,950 mg (9) Hypertension Hypertension type: primary hypertension Qualified Code(s): I10 - Essential (primary) hypertension
--- NOTE | 2024-10-01 07:59 | Nephrology Consultation ---
Date of Consultation October 01, 2024 Assessment & Plan (1) Hypercalcemia: resolving; ? cause apart from known primary HPTH; TSH wnl on new thyroid suppls -continue current 1/2 NS at 80 mL hourly -daily BMP ->>>started cinacalcet 30 mg MWF ->>neph will refer to ENT surgeon at d/c to discuss parathryoidectomy if/when clinically stable (5th admission since 07/19/24) -continue to hold chlorthalidone and torsemide for now though ultimately likely to need both ->>>suggest careful/thorough medication reconcilation w/ MTDM at d/c if available > I will evaluate (2) Acute kidney injury superimposed on CKD: improving w/ hydration, med changes; may not be able to hold BP meds for long d/t (3) Altered mental status: appears resolved today >> 29/30 on MMSE. ? etiology at this point >> possibly calcium though has had higher values w/o issues this spring. ? occult infection. ? already mild confusion from other sources compounded by medication error >>>note she had no glucometer per her and hsuband's report yesterday >> was in the mail I believe; would ensure resolution on this History of Present Illness Reason for Consultation: hypercalcemia Requesting Physician: Dr Francisco Attending Physician: Rosales Navarro MD History of Present Illness 49 y/o F whom I'm asked to see for hypercalcemia was admitted yesterday for altered mental status after I sent her from hospital yesterday for same. Past medical history includes type 2 diabetes (note not Type 1), multifactorial chronic metabolic acidosis with ketosis-prone recurrent DKA remotely and c/b acid base status changes related to colectomy and potentially to RTA, obesity, CKD 4, resistant hypertension, remote history of C. difficile colitis status post total colectomy with 2012 ileostomy reversal; recurrent small bowel obstruction/partial SBO spring 2024; June 2021 hypertensive emergency admission. Also with heart failure with preserved ejection fraction and few details (follows with [facility] cardiology [place]). Also recently -admitted here July 19 to 2024 for acute renal failure with small bowel obstruction managed conservatively; presenting creatinine 6 with a potassium of 6.8 and bicarb 11 after a week of diarrhea prior to admission. Creatinine at discharge 1.8 with potassium 3.5 and bicarb 21. -Readmitted here August 08 to August 10 with presenting creatinine 3.7 and potassium 6.8 in the setting of watery diarrhea up to 12 bowel movements daily for several days prior to presentation. Was set up w/ OP GI eval but not until 10/02/24. Does not have well water at home. -readmitted 08/16- for K > 6 and low mag in setting of CKD (creat low 2's) and copious diarrhea. -09/16-09/19 for n/v, OK on CKD , HTN urgency, hypercalcemia attributed to allergic drug reaction to mounjaro versus DKA >> creatinine mid to high 2's that admission (2.78 at d/c and admission 2.7; calcium 12.3 > 9.7). She came to see me in CKD clinic yesterday accompanied by her who did not want her driving (picked her up from work) d/t cognitive issues; her mother had called to accompany pt. 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 Poor historian >> confused about her medications; also stated she'd taken 30 units insulin (believe short acting) prior to coming to work in AM w/o having breakfast. Unable to finish sentences at times. Glucose in clinic 129; Ca 12.1; K 5.2, creat 2.3. no tremors or diaphoresis; no n/v, no constipation, mild edema, no abdominal or musculoskeleatal pain, no malaise, no focal numbness/weakness. she did have staring spells/ ? mild exopthalmos and a foot slapping gait. On arrival to hospital here noted to have calcium 11.4 ( > 10.7 today), K 5.3> 4.4; creat 2.4 > 2.1; bicarb 18>24; had mild leukocytosis w/ L shift now resolved. the admitting service contacted me to discuss zometa; given Ca levels on presentation we instead planned on IVF > she had 2.5 L NS and then changed to 1/2 NS at 80 mL hourly. there was a report that she did not swallow appropriatley yesterday adn was made NPO. noted to have repetitive statements, delayed processing on presentation. today she feels much improved in terms of thinking more clearly. RN reports no issues w/ pills or w/ mentation. No sob, no palpitations, no chest pain, no f/c, no diarrhea since arrival here; no edema, no gross hematuria or dysuria. no abd pain or n/v. + hunger Allergies Allergy/AdvReac Type Severity Reaction Status Date / Time bee venom protein (honey bee) Allergy Intermediate RED, SHORT Verified 09/16/24 21:16 OF BREATH hydralazine AdvReac Intermediate Lower Verified 09/16/24 21:16 Extremity Edema lorazepam AdvReac Intermediate Agitated Verified 09/16/24 21:16 Home Medications Medication Instructions Recorded Confirmed Type allopurinol 300 mg tablet 300 mg PO QAM 01/24/24 09/30/24 History buspirone 15 mg tablet 15 mg PO QAM 01/24/24 09/30/24 History duloxetine 60 mg capsule,delayed 60 mg PO QAM 01/24/24 09/30/24 History release eszopiclone 1 mg tablet (Lunesta) 1 mg PO HS PRN Sleep 01/24/24 09/30/24 History omega 3-jxv-dxk-fish oil 1,000 mg 2 cap PO QAM 01/24/24 09/30/24 History (120 mg-180 mg) capsule (Fish Oil) prochlorperazine maleate 10 mg 10 mg PO Q8H PRN Nausea/Vomiting 01/24/24 09/30/24 History tablet (Compazine) sodium bicarbonate 650 mg tablet 1,950 mg PO TID 01/24/24 09/30/24 History Medical Thc 1 dose PO UD PRN NEEDED 03/06/24 09/30/24 History insulin degludec 200 unit/mL (3 120 unit subcut QAM 03/06/24 10/01/24 History mL) subcutaneous pen (Tresiba FlexTouch U-200 insulin) blood-glucose meter (ReliOn Prime 05/10/24 08/16/24 History Meter) insulin lispro 100 unit/mL 30 sliding scale dose subcut TID 05/10/24 10/01/24 History subcutaneous pen (Humalog KwikPen (U-100) Insulin) magnesium oxide 400 mg (241.3 mg 400 mg PO BID #60 tabs 05/11/25 06/23/25 Rx magnesium) tablet albuterol sulfate 90 mcg/actuation 2 puff inhalation DIRECTED PRN 09/16/24 09/30/24 History aerosol inhaler COUGH/WHEEZING alprazolam 0.5 mg tablet (Xanax) 0.5 mg PO HS PRN Anxiety/Sleep 09/16/24 09/30/24 History aspirin 81 mg tablet,delayed 81 mg PO QPM 09/16/24 09/30/24 History release atorvastatin 20 mg tablet 80 mg PO DAILY 09/16/24 09/30/24 History baclofen 10 mg tablet 10 mg PO TID PRN MUSCLE SPASMS 09/16/24 09/30/24 History carvedilol 25 mg tablet 25 mg PO BIDM 09/16/24 09/30/24 History chlorthalidone 25 mg tablet 12.5 mg PO DAILY 09/16/24 09/30/24 History fluticasone propionate 50 1 spray intranasal BID 09/16/24 09/30/24 History mcg/actuation nasal spray,suspension ondansetron 4 mg disintegrating 4 mg translingual Q8H PRN 09/16/24 09/30/24 History tablet NAUSEA/VOMITING pregabalin 150 mg capsule 150 mg PO TID 09/16/24 09/30/24 History rimegepant 75 mg disintegrating 75 mg PO DIRECTED PRN Pain 09/16/24 09/30/24 History tablet (Nurtec ODT) sacubitril 24 mg-valsartan 26 mg 1 tab PO BID 09/16/24 09/30/24 History tablet (Entresto) torsemide 10 mg tablet 20 mg PO QAM 09/16/24 09/30/24 History amlodipine 10 mg tablet 10 mg PO DAILY #30 tabs 09/19/24 09/30/24 Rx pantoprazole 40 mg tablet,delayed 40 mg PO QAM #30 tabs 09/19/24 09/30/24 Rx release levothyroxine 75 mcg tablet 75 mcg PO DAILY 09/30/24 09/30/24 History Patient History Medical History Dyslipidemia Anemia of chronic disease DKA (diabetic ketoacidosis) Elevated troponin Hypertensive urgency DKA (diabetic ketoacidosis) CRF (chronic renal failure) Hypomagnesemia Diarrhea Chronic kidney disease (CKD) Electrolyte abnormality Weakness Diarrhea OK (acute kidney injury) Acute hyperkalemia Ileus Resistant hypertension Small bowel obstruction Acute kidney injury superimposed on stage 4 chronic kidney disease Acute hyperkalemia Acute renal failure Pancreatitis Hyperkalemia Right shoulder pain Asymptomatic hypertensive urgency History of congestive heart failure Cervical stenosis of spinal canal Chronic renal disease, stage 3, moderately decreased glomerular filtration rate (GFR) between 30-59 mL/min/1.73 square meter Diabetic nephropathy associated with type 2 diabetes mellitus Diabetes type 2, uncontrolled Diabetic peripheral neuropathy associated with type 2 diabetes mellitus Ketosis prone diabetes Dysesthesia Nephrolithiasis Acute kidney injury superimposed on CKD History of endometriosis History of renal dialysis (04/2017) - [facility] - ARF 2/2 DKA Hx of Clostridium difficile infection 2012 - treated, no problems since Chronic nausea Surgical History History of esophagogastroduodenoscopy (EGD) Hx of colonoscopy History of open reduction and internal fixation (ORIF) procedure (2018) left fibula Hx of tracheostomy (2013) R/T COMPLICATIONS AFTER ILEOSTOMY REVERSAL SURGERY IN 2011; HAS SINCE BEEN REVERSED History of rotator cuff surgery (2017) RT History of lumbar spinal fusion (2006) History of reversal of ileostomy (2012) History of ileostomy (2012) Status post cholecystectomy (2017) "cholelithiasis" Status post partial colectomy (2012) "for C diff colitis" Family History Mother Diabetes Other No family history of adverse response to anesthesia Social History Smoking Status: Former smoker Tobacco Type: Cigarettes Cigarettes Per Day: 5; Second Hand Exposure: No; Do You Dip or Chew Tobacco: No; Hx Alcohol Use: No Hx Substance Use: No Preferred Language: Emirati Communication Ability: Effective Restaurant Mgr Required: No Beliefs That Will Affect Care: None marital status: Current Living Situation: Spouse Feels Safe at Home: Yes Assistive Devices: None Review of Systems 2 Review of Systems: All systems reviewed & are unremarkable except as noted in HPI & below Physical Exam 2 Constitutional: well developed and well nourished Eyes: EOM intact bilaterally (today no stare) ENMT: Ears: no external ear abnormality Nose: no external nose abnormality Mouth: oral mucous membranes not dry Neck: no nuchal rigidity Respiratory: normal respiratory effort Auscultation: + diminished lung sounds Cardiovascular: RRR, no murmur, no edema Gastrointestinal (Abdomen): Inspection/Auscultation: normal bowel sounds P ercussion/Palpation: abdomen soft; abdomen nontender Musculoskeletal: Extremities: strength 5/5 throughout Skin: no rashes, warm and dry Neurologic: pizarro, fluent speech, no tremor Psychiatric: Orientation: alert and oriented x 3 (MMSE 29/30) Results & Data Vital Signs (Past 12 Hours) Vital Signs Temp Pulse Pulse Resp BP BP Pulse Ox 10/01/24 07:13 72 10/01/24 02:45 36.5 C 77 20 131/72 98 09/30/24 22:10 78 09/30/24 20:55 09/30/24 20:55 36.6 C 77 18 169/107 H 100 09/30/24 20:54 80 09/30/24 20:33 70 16 169/100 H 98 09/30/24 20:21 72 19 159/100 H 09/30/24 20:15 75 15 09/30/24 20:00 78 20 169/102 H O2 Del Method 10/01/24 07:13 10/01/24 02:45 Room Air 09/30/24 22:10 09/30/24 20:55 Room Air 09/30/24 20:55 Room Air 09/30/24 20:54 09/30/24 20:33 Room Air, Nasal Cannula 09/30/24 20:21 09/30/24 20:15 09/30/24 20:00 Laboratory Results 10/01/24 06:02 10/01/24 06:02 Ca as above phos, mag 4.4, 1.7 today Diagnostic Findings head CT unremarkable
[2024-10-01] MEDS ORDERED: carvediloL 25 MG TAB PO SCH (08:00)
[2024-10-01] MEDS: busPIRone 15 MG TAB PO SCH (08:43)
[2024-10-01] MEDS: amLODIPine BESYLATE 5 MG TAB PO SCH (08:43)
[2024-10-01] MEDS: allopurinoL 300 MG TAB PO SCH (08:43)
[2024-10-01] MEDS: DULoxetine HCL 60 MG CAP PO SCH (08:43)
[2024-10-01] MEDS: ATORVASTATIN 40 MG TAB PO SCH (08:43)
[2024-10-01] MEDS: PANTOprazole 40 MG TAB PO SCH (08:43)
[2024-10-01] MEDS ORDERED: LANTUS PER UNIT CHARGE SQ SCH (09:00)
[2024-10-01] MEDS: LANTUS PER UNIT CHARGE SC SCH ×2 (11:19→21:15)
--- NOTE | 2024-10-01 15:20 | Pharmacy Report ---
Pharmacy Glycemic Short Note 2 - Date of Service October 01, 2024 - Glycemic Short BSG Results (Last 24 hours): 09/30/24 09/30/24 09/30/24 15:02 15:17 18:48 Glucose 202 H POC Glucose 133 H POC Glucose (other) 204 H 09/30/24 10/01/24 10/01/24 21:13 06:02 07:59 Glucose 109 H POC Glucose 91 137 H POC Glucose (other) 10/01/24 12:04 Glucose POC Glucose 138 H POC Glucose (other) OUTPATIENT ANTIDIABETIC REGIMEN: * Tresiba 120 units SQ QAM (LF 09/05/24 75 units QAM) * Humalog 30 units TID * HbA1c 8.0% (09/17/24) ASSESSMENT: * Virginia is a 49 year old female admitted with hypercalcemia and with a history of type 2 diabetes mellitus. Pharmacy has been consulted to assist with glycemic management while inpatient. * Fasting BSG this AM within goal range, Lantus initiated based on previous glycemic data. * NovoLog at a weight based stress of 2 also similar to previous glycemic data. PLAN FOR INPATIENT GLYCEMIC CONTROL: * Hold outpatient oral diabetes medications * Basal insulin * Lantus 25 units SQ QAM * Lantus 0-35 units SQ HS based on BSG (see eMAR for additional details) * Bolus insulin * NovoLog per scale ACHS or Q6hrs while NPO * Goal Range: Low 110 mg/dL - High 140 mg/dL * Correction Factor: 25 mg/dL/unit * Nutritional / Prandial insulin per carb ratio of 1 unit per 8 grams CHO consumed
[2024-10-01] MEDS: ACETAMINOPHEN 325 MG TAB PO PRN (21:14)
[2024-10-01] MEDS: ESZOPICLONE 1 MG TAB PO PRN (22:25)
[2024-10-02 07:20] LABS: Hematocrit (blood only) 33.1 % (37.0-47.0); Hemoglobin 10.8 g/dl (12.0-16.0); Mean Corpuscular Hemoglobin 28.6 pg (25.0-34.0); Mean Corpuscular Hgb Conc 32.6 g/dL (32.0-36.0); Mean Corpuscular Volume 87.8 fL (80.0-100.0); Mean Platelet Volume 11.2 fL (9.4-12.4); Platelet Count 216 K/uL (130-400); RDW Coefficient of Variation 14.2 % (11.5-14.5); RDW Standard Deviation 44.8 fL (36.4-46.3); Red Blood Count 3.77 M/uL (4.20-5.40); White Blood Count 6.15 K/ul (4.8-10.8)
[2024-10-02 07:21] VITALS: RESP 18; O2SAT 97
[2024-10-02 07:41] LABS: BUN Creatinine Ratio 18.4 (10-20); Calcium 11.1 mg/dl (8.6-10.3); Creatinine Clr Calc Pharmacy 32.9 ml/min; Potassium 4.2 mmol/L (3.5-5.1)
--- NOTE | 2024-10-02 07:47 | Nephrology Progress Note ---
Date of Service October 02, 2024 Assessment & Plan (1) Hypercalcemia: Plan: resolving; ? cause apart from known primary HPTH; TSH wnl on new thyroid suppls. calcium 11.1 today >starting cinacalcet 30 mg mwf which will help Ca; will need to ensure she can access this med as OP prior to d/c -continue current 1/2 NS at 80 mL hourly -daily BMP ->>>started cinacalcet 30 mg MWF ->>neph will refer to ENT surgeon at d/c to discuss parathryoidectomy if/when clinically stable (5th admission since 07/19/24) >I have ordered -continue to hold chlorthalidone and torsemide for now though ultimately likely to need both ->>>suggest careful/thorough medication reconcilation w/ MTDM at d/c if available > I have arranged this for after d/c as well as [facility] parathyroid scan (prelim to ENT referral) Nephrology discharge recommendations >>>TO DO for d/c team -ensure she can get cinacalcet as OP -reschedule GI appt missed today [facility]G > P yang or Diego Knight -address issues w/ glucometer below Dx: -hypercalcemia from primary hyperparathyroidism CKD 3/4 with prerenal stage 1 OK Altered mental status, cause unclear; resolved; question multifactorial from hypercalcemia and possible patient self administered medication error - polypharmacy and complex medical conditions w/ frequent med changes RX: -Start Cinacalcet 30 mg Monday -hold ENTRESTO at discharge since it is unclear whether she was taking this or not before admission Amlodipine 10 mg daily Chlorthalidone 12.5 mg daily Torsemide 20 mg daily Carvedilol 25 mg twice daily; dose clarification not 12.5 mg daily and not 50 mg daily Sodium bicarbonate 650 mg x 3 tabs twice daily, for 6 tablets daily total; note dose frequency change OTHER F/U CARE - She should hear within the next few days about scheduling an outpatient nuclear medicine parathyroid scan at [facility] (order is in) Outpatient pharmacist with [facility] will contact her to do bottles out medication record Sales[facility] and strategize for risk of medication error with frequent medication changes and frequent illness -work to reschdule GI appt -continue remote BP monitoring -neph nurse to order BMP for 10/07 or 10/08 approx -ensure she has a glucometer or interim plan until glucometer arrives F/U appts -keep 10/18 appt w/ Kate in CKD clinic Care coordinated w/ Dr Stern via TText re d/c recs, med changes, d/c dispo; we are in agreement. (2) Acute kidney injury superimposed on CKD: Plan: improving w/ hydration, med changes; may not be able to hold BP meds for long d/t resistant HTN >will give chlorthalidone and torsemide today given HTN (3) Altered mental status: Plan: appears resolved today >> 29/30 on MMSE 10/01. ? etiology at this point >> possibly calcium though has had higher values w/o issues this spring. ? occult infection. ? already mild confusion from other sources compounded by medication error >>>note she had no glucometer per her and kelsy's report yesterday >> was in the mail I believe; would ensure resolution on this Admission and Anticipated Discharge Date Admission Date: October 01, 2024 Subjective Transient nausea this morning; no further confusion; no further staring spells. Denies diarrhea or abdominal pain or shortness of breath or edema. Review of Systems 2 Review of Systems: All systems reviewed & are unremarkable except as noted in Subjective Physical Exam 2 Constitutional: well developed and well nourished Eyes: EOM intact bilaterally (today no stare) ENMT: Ears: no external ear abnormality Nose: no external nose abnormality Mouth: oral mucous membranes not dry Neck: no nuchal rigidity Respiratory: normal respiratory effort Auscultation: + diminished lung sounds Cardiovascular: RRR, no murmur, no edema Gastrointestinal (Abdomen): Inspection/Auscultation: normal bowel sounds P ercussion/Palpation: abdomen soft; abdomen nontender Musculoskeletal: Extremities: strength 5/5 throughout Skin: no rashes, warm and dry Psychiatric: Orientation: alert and oriented x 3 Results & Data Vital Signs (Past 12 Hours) Vital Signs Temp Pulse Pulse Resp BP BP Pulse Ox 10/02/24 07:20 37.1 C 70 18 172/91 H 97 10/02/24 05:45 69 10/02/24 04:31 36.7 C 75 16 163/89 H 95 10/01/24 22:55 37 C 80 18 152/76 H 95 10/01/24 21:58 77 O2 Del Method 10/02/24 07:20 Room Air 10/02/24 05:45 10/02/24 04:31 Room Air 10/01/24 22:55 Room Air 10/01/24 21:58 Laboratory Results 10/02/24 05:55 10/02/24 05:55
[2024-10-02] MEDS: CINACALCET HCL 30 MG TAB PO SCH (08:20)
[2024-10-02] MEDS: ONDANSETRON INJ 2 MG/ML 2 ML VIAL IV PRN (08:26)
[2024-10-02] MEDS: LANTUS PER UNIT CHARGE SC SCH (08:51)
[2024-10-02 11:08] VITALS: PULSE 72; TEMP 98.1
--- NOTE | 2024-10-02 12:07 | Discharge Summary ---
Discharge Summary Date of Service October 02, 2024 Principal Dx & Hospital Course #1 = Principal Diagnosis (1) Altered mental status: (2) Hypercalcemia: (3) Hyperparathyroidism: (4) Vitamin D deficiency: (5) Acute kidney injury superimposed on CKD: (6) CKD (chronic kidney disease) stage 4, GFR 15-29 ml/min: (7) Acute hyperkalemia: (8) Type 1 diabetes mellitus: (9) Hypertension: (10) Hypothyroidism: Plan 49 year old female with PMHx significant for uncontrolled type 1 diabetes, CKD stage IV, electrolyte disorder, metabolic acidosis, hypertension, GERD, history of C. difficile colitis, status post colectomy, osteoarthritis, migraine, history of tobacco use who presented to the ED as a referral from Nephrology clinic and was admitted for altered mental status and electrolyte disturbances. Altered mental status Acute Metabolic Encephalopathy Patient with repetitive statements and delayed processing of thought/speech on admission Head CT unremarkable TSH 0.378 Likely secondary to electrolyte disturbances as described below Hypercalcemia Hyperparathyroidism Vitamin D deficiency Hyperkalemia Hypomagnesemia Metabolic acidosis Calcium 11.4 and ical 1.47 (Ca 12.1 outpatient) PTH 450 and vitamin D 12 on 09/17/2024 K+ 5.3 on admission, magnesium levels low VBG pH 7.30 - above baseline per records Bicarb 20 and gap 10 Received 500mL NSS in ED NSS at 120mL/hr for 2L on admission Nephrology consulted : appreciate recommendations, cinacalcet started. Nephrology discharge recommendations per Dr Gracie Lucas listed below: "...Nephrology discharge recommendations >>>TO DO for d/c team -ensure she can get cinacalcet as OP -reschedule GI appt missed today GMG > P yang or Diego Knight -address issues w/ glucometer below Dx: -hypercalcemia from primary hyperparathyroidism CKD 3/4 with prerenal stage 1 OK Altered mental status, cause unclear; resolved; question multifactorial from hypercalcemia and possible patient self administered medication error - polypharmacy and complex medical conditions w/ frequent med changes RX: -Start Cinacalcet 30 mg Monday -hold ENTRESTO at discharge since it is unclear whether she was taking this or not before admission Amlodipine 10 mg daily Chlorthalidone 12.5 mg daily Torsemide 20 mg daily Carvedilol 25 mg twice daily; dose clarification not 12.5 mg daily and not 50 mg daily Sodium bicarbonate 650 mg x 3 tabs twice daily, for 6 tablets daily total; note dose frequency change OTHER F/U CARE - She should hear within the next few days about scheduling an outpatient nuclear medicine parathyroid scan at [facility] (order is in) Outpatient pharmacist with [facility] will contact her to do bottles out medication record [facility] and strategize for risk of medication error with frequent medication changes and frequent illness -work to reschdule GI appt -continue remote BP monitoring -neph nurse to order BMP for 10/07 or 10/08 approx -ensure she has a glucometer or interim plan until glucometer arrives F/U appts -keep 10/18 appt w/ Kate in CKD clinic..." OK on CKD stage IV Creatinine of 2.4 - above baseline of 1.8-2.0 Held Entresto and diuretics (torsemide and chlorthalidone) initially Fluids as above Per nephrology on discharge -hold Entresto -resume torsemide and chlorthalidone Close Nephrology followup after discharge Anemia of chronic disease Hgb 11 - above baseline per records Monitor CBC PCP followup Leukocytosis - resolved WBC 12 -> 8.4K Afebrile and vitals stable, no s/s infection Monitor CBC Type 1 diabetes On Tresiba and lispro sliding scale at home BSG ACHS Consult glycemic pharmacy resume home meds on discharge Glucometer prescribed with pcp followup Hypertension Continue coreg and amlodipine Continue to hold Entresto per Nephrology recs Nephrology resumed diuretics (torsemide and chlorthalidone) on discharge Hyperlipidemia Continue statin Hypothyroidism TSH wnl as above Continue levothyroxine Gout Continue allopurinol Depression anxiety Continue duloxetine and buspirone GERD Continue pantoprazole Notes For Next Care Provider As above Medication Changes From Visit As above per Nephrology recs -start Cinacalcet 30mg to be taken every Monday, Monday and Monday -holding Entresto - sodium bicarbonate tablets are now twice a day instead of three times a day. Admission HPI Per Admitting Provider 49 year old female with PMH significant for uncontrolled type 1 diabetes, CKD stage IV, electrolyte disorder, metabolic acidosis, hypertension, GERD, history of C. difficile colitis, osteoarthritis, migraine, status post colectomy, history of tobacco use who presented to the ED today as a referral from Nephrology clinic for altered mental status. Patient reports that she was "just out of it" today but is not able to provide additional history. She denies fevers, chills, cough, cold symptoms, chest pain, SOB, abdominal pain, N/V/D, dysuria, weakness. Denies any recent falls or hitting her head. States she took her medications this morning. Admission Exam Per Admitting Provider General/Psych: WD/WN, sitting up in bed, NAD, conversing easily, euthymic affect, repetitive statements and delayed processing Head: normocephalic, atraumatic Eyes: normal inspection, PERRL, conjunctivae pink, anicteric sclerae, exophthalmos ENT: external ear and nose normal, oropharynx normal Neck: normal visual inspection, trachea midline Respiratory: normal respiratory effort, lungs clear to auscultation, no wheeze/rales/rhonchi, no accessory muscle use Cardiovascular: regular rate and rhythm, no murmur/rub/gallop, no JVD Extremities: no cyanosis or clubbing, normal peripheral pulses, no BLE edema Abdomen/GI: normal bowel sounds, soft, nontender, no hepatosplenomegaly Neurologic/MSK: A+Ox3, CN's II-XI intact bilaterally, motor strength 5/5, moves all extremities Skin: no rashes, normal color, warm and dry Discharge Exam General: Alert, oriented. No acute distress HEENT: NC/AT CV: RRR Resp: Breath sounds clear bilaterally, no increased effort of breathing Abdomen: Soft, nontender Extremities: No edema in lower extremities bilaterally. Updated Medication List Medication Instructions Recorded Confirmed Type allopurinol 300 mg tablet 300 mg PO QAM 01/24/24 09/30/24 History buspirone 15 mg tablet 15 mg PO QAM 01/24/24 09/30/24 History duloxetine 60 mg capsule,delayed 60 mg PO QAM 01/24/24 09/30/24 History release eszopiclone 1 mg tablet (Lunesta) 1 mg PO HS PRN Sleep 01/24/24 09/30/24 History omega [id number]-cqw-fish oil 1,000 mg 2 cap PO QAM 01/24/24 09/30/24 History (120 mg-180 mg) capsule (Fish Oil) prochlorperazine maleate 10 mg 10 mg PO Q8H PRN Nausea/Vomiting 01/24/24 09/30/24 History tablet (Compazine) Medical Thc 1 dose PO UD PRN NEEDED 03/06/24 09/30/24 History insulin degludec 200 unit/mL (3 120 unit subcut QAM 03/06/24 10/01/24 History mL) subcutaneous pen (Tresiba FlexTouch U-200 insulin) insulin lispro 100 unit/mL 30 sliding scale dose subcut TID 05/10/24 10/01/24 History subcutaneous pen (Humalog KwikPen (U-100) Insulin) magnesium oxide 400 mg (241.3 mg 400 mg PO BID #60 tabs 08/18/24 09/30/24 Rx magnesium) tablet albuterol sulfate 90 mcg/actuation 2 puff inhalation DIRECTED PRN 09/16/24 09/30/24 History aerosol inhaler COUGH/WHEEZING alprazolam 0.5 mg tablet (Xanax) 0.5 mg PO HS PRN Anxiety/Sleep 09/16/24 09/30/24 History aspirin 81 mg tablet,delayed 81 mg PO QPM 09/16/24 09/30/24 History release atorvastatin 20 mg tablet 80 mg PO DAILY 09/16/24 09/30/24 History baclofen 10 mg tablet 10 mg PO TID PRN MUSCLE SPASMS 09/16/24 09/30/24 History carvedilol 25 mg tablet 25 mg PO BIDM 09/16/24 09/30/24 History chlorthalidone 25 mg tablet 12.5 mg PO DAILY 09/16/24 09/30/24 History fluticasone propionate 50 1 spray intranasal BID 09/16/24 09/30/24 History mcg/actuation nasal spray,suspension ondansetron 4 mg disintegrating 4 mg translingual Q8H PRN 09/16/24 09/30/24 History tablet NAUSEA/VOMITING pregabalin 150 mg capsule 150 mg PO TID 09/16/24 09/30/24 History rimegepant 75 mg disintegrating 75 mg PO DIRECTED PRN Pain 09/16/24 09/30/24 History tablet (Nurtec ODT) torsemide 10 mg tablet 20 mg PO QAM 09/16/24 09/30/24 History amlodipine 10 mg tablet 10 mg PO DAILY #30 tabs 09/19/24 09/30/24 Rx pantoprazole 40 mg tablet,delayed 40 mg PO QAM #30 tabs 09/19/24 09/30/24 Rx release levothyroxine 75 mcg tablet 75 mcg PO DAILY 09/30/24 09/30/24 History blood-glucose meter #1 ea 10/02/24 Rx cinacalcet 30 mg tablet 30 mg PO MoWeFr@0900 #12 tabs 10/02/24 Rx sodium bicarbonate 650 mg tablet 1,950 mg (3 x 650 mg) PO BID #0 10/02/24 09/30/24 Rx tabs Hospital Stay Data Consultations 09/30/24 16:37 ED Decision to Admit Stat 09/30/24 17:25 Consult Nephrology Routine Diagnostic Imagining Performed 09/30/24 17:[address] [CT head/brain wo con] Urgent Head CT 09/30/24 17:19 Clinical History: Altered mental status. Technique: Axial computed tomography images were obtained of the brain from the vertex to the skull base without intravenous contrast. Comparison is made to the prior CT dated 09/17/2024 Findings: There is no sign of intracranial hemorrhage. There is normal koch-white matter differentiation with no sign of acute or old infarction. No midline shift or other form of herniation is identified. There is no hydrocephalus. No obvious mass lesion is seen on this noncontrast examination. The visualized portions of the orbits and paranasal sinuses appear unremarkable. The mastoid air cells appear clear Impression: Unremarkable noncontrast CT of the brain Electronically signed by Fidencio Vasquez 09-30-2024 5:51 PM Discharge Instructions Given to Patient (Per Discharging Provider) Adrian Coleman were seen by the Marking Stitcher who recommended discharge with the following changes to your medications: -start Cinacalcet 30mg to be taken every Monday, Monday and Monday -holding the medication Entresto at home -your sodium bicarbonate tablets are now twice a day instead of three times a day. A glucometer was prescribed but should you have any issues obtaining this, you should follow up with your primary care provider. Please keep close follow up with your primary care provider and Nephrology after discharge. Please do not hesitate to come back to the emergency room if your symptoms worsen or return. It was a pleasure taking care of you while you were here. Total Time Total Time Spent Total Time Spent (In Minutes): 60
[2024-10-02] MEDS: CHLORTHALIDONE 25 MG TAB PO SCH (12:30)
[2024-10-02] MEDS: TORSEMIDE 20 MG TAB PO SCH (12:30)
[2024-10-02 12:49] VITALS: BP 172/91
--- NOTE | 2024-10-02 15:30 | Electrocardiogram Report ---
Test Reason : Blood Pressure : */* mmHG Vent. Rate : 79 BPM Atrial Rate : 79 BPM P-R Int : 194 ms QRS Dur : 92 ms QT Int : 370 ms P-R-T Axes : 57 34 101 degrees QTcB Int : 424 ms Normal sinus rhythm T wave abnormality, consider lateral ischemia Abnormal ECG When compared with ECG of 17-Sep-2024 03:07, No significant change was found Confirmed by Messi Daniel ([id number]) on 10/02/2024 3:30:16 PM Referred By: Confirmed By: Messi Daniel
[2024-10-02] MEDS ORDERED: SODIUM BICARBONATE 650 MG TAB PO SCH (21:00)
== END 2024-10-02 13:00 | disposition home or self-care (01) | DRG 643 ==
LOC: 2N 14:08 → ED 14:08 → SUATTDRO 17:26 → 2N 20:33 → SUATTDRO 10-01 16:24